=== PATIENT | female | born 1955 | race Caucasian/White ===

== ENCOUNTER → 2016-06-28 | Outpatient (CLI) | payer MEDICARE ==
--- NOTE | 2016-06-28 15:34 | XR ---
EXAMINATION TYPE: XR chest 2V DATE OF EXAM: 06/28/2016 3:29 PM COMPARISON: CT abdomen pelvis 23 March 2016, chest x-ray HISTORY: MRI clearance, post median sternotomy TECHNIQUE: Frontal and lateral views of the chest are obtained. FINDINGS: There is no focal air space opacity, pleural effusion, or pneumothorax seen. The cardiac silhouette size is within normal limits. Patient is post median sternotomy and rotated. Lung volume s are low. There are areas of scarring present. No evident epicardial pacing leads. The osseous struc tures are intact. IMPRESSION: No counterindication to MRI is evident.
== END | disposition home or self-care (01) ==
LOC: RADXRMAIN 15:13
PROVIDERS: ATTEND Orthopaedic Surgery
DX: M65.812 Other synovitis and tenosynovitis, left shoulder (principal); M25.512 Pain in left shoulder; M19.012 Primary osteoarthritis, left shoulder; M54.2 Cervicalgia; M75.102 Unspecified rotator cuff tear or rupture of left shoulder, not specified as traumatic; M25.812 Other specified joint disorders, left shoulder
CPT/HCPCS: 71020

== ENCOUNTER → 2016-07-08 | Outpatient (CLI) | payer MEDICARE ==
--- NOTE | 2016-07-08 11:01 | US ---
EXAMINATION TYPE: US thyroid st tissue head/neck DATE OF EXAM: 07/08/2016 10:39 AM COMPARISON: NONE CLINICAL HISTORY: R94.6 abn thyroid function. Patient was on meds but now off of them due to other he alth issues GLAND SIZE: Right Lobe: 5.9 x 3.9 x 2.1 cm Overall Parenchyma: slightly heterogeneous Left Lobe: 5.3 x 2.0 x 2.3 cm Overall Parenchyma: slightly heterogeneous Isthmus Thickness: 0.6 cm NODULES RIGHT: # of nodules measured on right: 1 1. 0.6 X 0.5 x 0.4 cm hypoechoic solid nodule at the mid pole with well-defined margins. This nodu le is wider than tall and shows no intranodular vascularity. Prior size: COVER STRIPPER LEFT: # of nodules measured on left: 0 ISTHMUS: # of nodules measured in the isthmus: 0 Thyroid gland is heterogeneous in appearance and slightly enlarged in size with scattered small nodul es, largest nodule measures up to 6 mm on long axis on the right thyroid lobe. IMPRESSION: Enlarged slightly heterogeneous thyroid gland without worrisome greater than 1 cm solid or cystic nod ule identified.
== END | disposition home or self-care (01) ==
LOC: RADUSMAIN 09:55
PROVIDERS: ATTEND Family Medicine
DX: E04.9 Nontoxic goiter, unspecified (principal)
CPT/HCPCS: 76536

== ENCOUNTER 2016-07-10 09:45 | Emergency (ER) | payer MEDICARE ==
[2016-07-10] MEDS ORDERED: TRIAMCINOLONE 0.1% CREAM 80 GM TUBE TOPICAL STA (10:05)
--- NOTE | 2016-07-10 10:08 | ED ---
Extremity Problem HPI - General Chief complaint: Extremity Problem,Nontraumatic Stated complaint: leg pain Time Seen by Provider: 07/10/16 10:01 Source: patient, RN notes reviewed Mode of arrival: wheelchair Limitations: no limitations - History of Present Illness Initial comments: 60-year-old female presents emergency Department chief complaint left knee pain. Patient states this started on and has gotten worse. Patient denies any injury. Patient states that they drove to [facility] on Tuesday started after. She has had a history of DVT in her left arm secondary to a hospital stay an IV. She states she was placed on blood thinners at that time. She has not taken any aspirin, Plavix or any other blood thinners at this time. She states that she used to take aspirin prior to her bypass surgery. Patient states that there is no redness no warmth no change in color to her left knee. Denies any trauma. She states she just started father states it feels like a cramp. Patient denies chest pain or shortness of breath. - Related Data Home Medications Medication Instructions Recorded Confirmed Aspirin EC [Ecotrin Low Dose] 81 mg PO DAILY 03/23/16 03/23/16 Atorvastatin [Lipitor] 40 mg PO HS 03/23/16 03/23/16 Carbidopa/Levodopa [Sinemet 25-100 1 tab PO HS 03/23/16 03/23/16 mg] Celecoxib [CeleBREX] 200 mg PO DAILY 03/23/16 03/23/16 DULoxetine HCL [Cymbalta] 60 mg PO DAILY 03/23/16 03/23/16 Gabapentin 600 mg PO TID 03/23/16 03/23/16 Insulin Glargine [Lantus] 40 unit SQ HS 03/23/16 03/23/16 Metoprolol Tartrate [Lopressor] 50 mg PO BID 03/23/16 03/23/16 Omeprazole [PriLOSEC] 20 mg PO AC-BRKFST 03/23/16 03/23/16 Previous Rx's Medication Instructions Recorded Amoxic-Pot Clav 875-125Mg 1 tab PO Q12HR #14 tablet 03/24/16 [Augmentin 875-125] Hydrocodone/Acetaminophen [[place] 1 tab PO Q6HR PRN #20 tab 07/10/16 5-325] Allergies Allergy/AdvReac Type Severity Reaction Status Date / Time Sulfa (Sulfonamide Allergy Unknown Verified 07/10/16 09:50 Antibiotics) Childhood Review of Systems ROS Statement: Those systems with pertinent positive or pertinent negative responses have been documented in the HPI. ROS Other: All systems not noted in ROS Statement are negative. Past Medical History Past Medical History: Coronary Artery Disease (CAD), Hyperlipidemia, Hypertension Additional Past Medical History / Comment(s): post polio syndrome History of Any Multi-Drug Resistant Organisms: C-DIFF Date of last positivie culture/infection: 2013 MDRO Source:: stool Past Surgical History: Back Surgery, Bowel Resection, Cholecystectomy, Coronary Bypass/CABG, Hysterectomy, Tonsillectomy Past Psychological History: No Psychological Hx Reported Smoking Status: Former smoker Past Alcohol Use History: None Reported Past Drug Use History: None Reported General Exam Limitations: no limitations General appearance: alert, in no apparent distress Head exam: Present: atraumatic, normocephalic, normal inspection Respiratory exam: Present: normal lung sounds bilaterally. Absent: respiratory distress, wheezes, rales, rhonchi, stridor Cardiovascular Exam: Present: regular rate, normal rhythm, normal heart sounds. Absent: systolic murmur, diastolic murmur, rubs, gallop, clicks Back exam: Present: other (Left knee there is tenderness in the popliteal fossa , no erythema no warmth patient does have some pain with range of motion. There is mild upper calf tenderness or pulses equal bilaterally +2) Skin exam: Present: warm, dry Course Vital Signs 07/10/16 09:47 Temperature 97.5 F L Pulse Rate 68 Respiratory 20 Rate Blood Pressure 130/60 O2 Sat by Pulse 98 Oximetry Medical Decision Making - Medical Decision Making 60-year-old female presented emergency department for left knee pain. There is no evidence of DVT. Patient has showed arthritis changes with joint effusion and Vizcaino's cyst. Patient we follow-up with her orthopedic surgeon Dr. Escalante. Patient we given pain medication and discharged. Disposition Clinical Impression: Bakers cyst, Joint effusion Disposition: HOME SELF-CARE Condition: Stable Instructions: Bakers Cyst (ED) Additional Instructions: Please return to the Emergency Department if symptoms worsen or any other concerns. Prescriptions: Hydrocodone/Acetaminophen [[place] 5-325] 1 tab PO Q6HR PRN #20 tab PRN Reason: Pain Referrals: Serina Leblanc MD [Primary Care Provider] - 1-2 days Bebeto Escalante MD [STAFF PHYSICIAN] - 1-2 days Time of Disposition: 11:25
[2016-07-10] MEDS ORDERED: TRIAMCINOLONE ACET 0.1% OINTMENT 15 GM TUBE TOPICAL STA (10:09)
[2016-07-10] MEDS ORDERED: HYDROcodone/APAP 5-325MG 1 EACH TAB PO STA (10:44)
--- NOTE | 2016-07-10 11:06 | US ---
EXAMINATION TYPE: US venous doppler duplex LE LT DATE OF EXAM: 07/10/2016 10:33 AM COMPARISON: NONE CLINICAL HISTORY: Pain. Pain left leg x 3 days SIDE PERFORMED: left VESSELS IMAGED: External Iliac Vein (EIV) Common Femoral Vein Deep Femoral Vein Greater Saphenous Vein * Femoral Vein Popliteal Vein Small Saphenous Vein * Proximal Calf Veins (* superficial vessels) Left Leg: No evidence of DVT. Difficult to visualize popliteal vein due to compression from probable Vizcaino's cyst. Complex anechoic area left popliteal fossa = 7.3 x 2.0 x 3.2cm (Vizcaino's cyst) IMPRESSION: 1. This examination is negative for DVT within the left leg. 2. Popliteal fossa cyst measuring 7.3 cm.
--- NOTE | 2016-07-10 11:18 | XR ---
EXAMINATION TYPE: XR knee complete LT DATE OF EXAM ORDERED: 07/10/2016 10:53 AM HISTORY: Pain. COMPARISON: None. FINDINGS: There has been previous vascular surgery on the left. There is mild medial and lateral joint space loss. There are mild remodeling changes in the patellofe moral joint. There is a joint effusion. No acute osseous lesion is seen. IMPRESSION: OSTEOARTHRITIS WITH A CONCOMITANT JOINT EFFUSION.
[2016-07-10 11:28] VITALS: BP 126/57; PULSE 61; RESP 18; TEMP 97.7
== END 2016-07-10 11:42 | disposition home or self-care (01) ==
LOC: EC 09:45
DX: M71.22 Synovial cyst of popliteal space [Baker], left knee (principal); M17.12 Unilateral primary osteoarthritis, left knee; M25.462 Effusion, left knee; I10 Essential (primary) hypertension; I25.10 Atherosclerotic heart disease of native coronary artery without angina pectoris; E78.5 Hyperlipidemia, unspecified; G14 Postpolio syndrome; Z79.82 Long term (current) use of aspirin; Z79.4 Long term (current) use of insulin; Z79.899 Other long term (current) drug therapy; Z88.2 Allergy status to sulfonamides; Z87.891 Personal history of nicotine dependence
CPT/HCPCS: 99284

== ENCOUNTER → 2016-07-14 | Outpatient (CLI) | payer MEDICARE ==
--- NOTE | 2016-07-15 13:05 | NM ---
EXAMINATION TYPE: NM thyroid image w uptake DATE OF EXAM: 07/15/2016 12:08 PM COMPARISON: Ultrasound thyroid 08 July 2016 HISTORY: Thyrotoxicosis TECHNIQUE: After the intravenous administration of 11.0 mCi Tc 99m Sodium Pertechnetate, thyroid imag ing is performed 10 minutes post injection. Thyroid iodine uptake is calculated after the oral admini stration of 18.0 uCi I-131 capsule. FINDINGS: There is normal distribution of activity throughout the gland. The 4 hour iodine uptake is calculated at 4.6% (normal range 8-14%). The 24-hour iodine uptake is calculated at 14.6% (normal ra nge 15-35%). Heterogeneous radio pharmaceutical trapping is present within the thyroid gland. No discrete thyroid nodule. IMPRESSION: Findings suggest underlying thyroiditis.
== END ==
LOC: RADNMMAIN 11:09
PROVIDERS: ATTEND Family Medicine
DX: E05.90 Thyrotoxicosis, unspecified without thyrotoxic crisis or storm (principal)
CPT/HCPCS: 78014; A9528; A9512

== ENCOUNTER 2016-10-14 07:07 | Day surgery (SDC) | payer MEDICARE ==
[2016-10-13 08:05] VITALS: BMI 36.3
[~2016-10-14 07:07] MED LIST: LACTATED RINGERS 1,000 ML IV SCH
[2016-10-14] MEDS ORDERED: LACTATED RINGERS 1,000 ML IV ONE (07:12)
[2016-10-14 07:24] VITALS: TEMP 98.3
[2016-10-14 07:36] LABS: Glucose,Whole Blood 101 mg/dL (75-99)
[2016-10-14] MEDS ORDERED: PROPOFOL 10 MG/ML 20 ML VIAL IV ONE (08:35)
[2016-10-14 09:15] VITALS: RESP 16
--- NOTE | 2016-10-14 09:17 | P.PCN ---
Date of Procedure: 10/14/16 Preoperative Diagnosis: Postoperative Diagnosis: Procedure(s) Performed: Procedure: Colonoscopy and biopsy. Preoperative diagnosis: Screening for neoplasia. Postoperative diagnosis: Diverticulosis with no evidence of acute diverticulitis , strictures, polyps or cancer. Preparation: HalfLytely prep. Sedation: Was provided by anesthesia. Brief clinical history: The patient is a 61-year-old female who is referred for this evaluation for screening for neoplasia. The patient had prior colon resection in 2009 for colon abscess and has had multiple colonoscopies in the past, her last colonoscopy was around 2010. She has been having urgent bowel movements lately not related to dietary triggers or any circumstances. No bleeding or other alarm symptoms. Procedure: With the patient on her left lateral decubitus position and after informed consent and adequate sedation, the perianal area was inspected and it did not show any fissures or fistulas. There were no masses felt on digital rectal examination. The Olympus CFQ 160L video colonoscope was then inserted in the rectum and the usual fashion and advanced to the cecum. There were multiple diverticular orifices seen scattered along the length of the bowel mostly on the left side with fewer on the right side with no evidence of acute diverticulitis or strictures. The area of the prior resection on the left side was noted and no obvious abnormalities were seen. The mucosa appeared healthy, however, because of her symptoms obtained biopsies in the right colon. I retroflexed the endoscope in the rectum before the endoscope was withdrawn. The patient tolerated the procedure well. Plan: The patient was reassured. Discussed dietary measures. Will await biopsy results and make further plans accordingly. For screening for colon neoplasia I recommended a repeat exam in 10 years. She will follow-up with you as planned. Implants: Indications for Procedure: Operative Findings: Description of Procedure:
[2016-10-14 09:45] VITALS: BP 109/71; PULSE 72
== END 2016-10-14 10:04 | disposition home or self-care (01) ==
LOC: ORWHC2ENDO 07:07
DX: Z12.11 Encounter for screening for malignant neoplasm of colon (principal); K57.30 Diverticulosis of large intestine without perforation or abscess without bleeding; I25.10 Atherosclerotic heart disease of native coronary artery without angina pectoris; I48.91 Unspecified atrial fibrillation; I10 Essential (primary) hypertension; E78.5 Hyperlipidemia, unspecified; Z87.891 Personal history of nicotine dependence; E11.9 Type 2 diabetes mellitus without complications; G14 Postpolio syndrome; F39 Unspecified mood [affective] disorder; K21.9 Gastro-esophageal reflux disease without esophagitis; Z90.49 Acquired absence of other specified parts of digestive tract; Z88.2 Allergy status to sulfonamides; Z79.82 Long term (current) use of aspirin; Z79.899 Other long term (current) drug therapy; Z79.4 Long term (current) use of insulin
CPT/HCPCS: 88305; 45380; J2704

== ENCOUNTER → 2016-10-22 | Outpatient (CLI) | payer MEDICARE ==
--- NOTE | 2016-10-22 15:58 | BD ---
EXAMINATION TYPE: MG DEXA axial skeleton. DATE OF EXAM: 10/22/2016 COMPARISON: NONE CLINICAL HISTORY: Z13.820 OSTEOPOROSIS Height: 53.5 Weight: 201 FRAX RISK QUESTIONS: Alcohol (3 or more units per day): N Family History (Parent hip fracture): YES, HER MOTHER Glucocorticoids (More than 3mos): NO (Ex: prednisone, prednisolone, methylprednisolone, dexamethasone, and hydrocortisone). History of Fracture in Adulthood: YES Secondary Osteoporosis: NO 1. Type 1 Diabetes: NO 2. Hyperthyroidism: YES 3. Menopause before 45: NO 4. Malnutrition: NO 5. Chronic liver disease: NO Rheumatoid Arthritis: NO Current Tobacco Use: NO, QUIT 2007 RISK FACTORS HISTORY OF: History of Wrist Fracture: RT WRIST When: AT AGE 10 Surgery to Spine LUMBAR SPINAL FUSION L4 AND L5 When: 2007 Family History of Osteoporosis: YES HER MOTHER Active: NOT VERY, RIGHT NOW Diet low in dairy products/other sources of calcium: NO Postmenopausal woman: YES AT 53 YRS OLD Lost more than 2 inches in height since high school: YES Hyperparathyroidism: YES Adrenal Insufficiency: NO MEDICATIONS: Thyroid Medications: STOPPED ABOUT 1 1/2 YRS AGO Additional Medications: BP MEDS, HEART MEDS, INSULIN,CYMBALTA, CELEBREX, TRAMADOL,VIT D Additional History: HEART TROUBLE, DIABETIC, RESTLESS LEG SYNDROME, BACK AND LEG PAIN, ARTHRITIS, PETTY ROPATHY EXAM MEASUREMENTS: Bone mineral densitometry was performed using the Cognotion System. SPINE NOT SCANNED....HX OF LUMBAR FUSION Bone mineral density about the R hip (g/cm2): 1.023 Bone mineral density about the L hip (g/cm2): 0.968 T Score values are as follows: -----R Neck: -0.7 -----L Neck: -0.9 -----R Total: 0.1 -----L Total: -0.3 Bone mineral density THIS IS HER FIRST BONE DENSITY EXAM AT [facility]...... FRAX %'S: THERE IS A 22.9% CHANCE OF A MAJOR OSTEOPOROTIC FX AND A 0.7% CHANCE OF A HIP FX...... PROBABILITY OF FX IN 10 YRS TIME IMPRESSION: Normal (Values between +1 and -1 indicate normal bone mass). Consider repeating this study in 5 year s or sooner if there is some new clinical indication 10 YEAR MAJOR OSTEOPOROTIC FRACTURE RISK: 22.9%. 10 YEAR HIP FRACTURE RISK: 0.7%. NOTE: T-SCORE=SD OF THE YOUNG ADULT MEAN.
--- NOTE | 2016-10-28 10:44 | MM ---
Reason for exam: screening (asymptomatic). Last mammogram was performed 1 year and 10 months ago. History: Patient is postmenopausal. Family history of breast cancer in mother at age 55. Physical Findings: A clinical breast exam by your physician is recommended on an annual basis and results should be correlated with mammographic findings. MG 3D Screening Mammo W/Cad Bilateral CC and MLO view(s) were taken. Prior study comparison: December 19, 2014, mammogram, performed at [facility]. March 21, 2014, mammogram, performed at [facility]. September 16, 2013, mammogram, performed at [facility]. September 08, 2013, mammogram, performed at [facility]. There are scattered fibroglandular densities. Finding: There are typically benign vascular calcifications in both breasts. There is a chronic nodularity bilaterally axilla. Asymmetric breast tissue in the left breast inferior position. There is no discrete abnormality. ASSESSMENT: Benign, BI-RAD 2 RECOMMENDATION: Routine screening mammogram of both breasts in 1 year.
== END | disposition home or self-care (01) ==
LOC: RADMAMWWP 14:22
PROVIDERS: ATTEND Family Medicine
DX: Z12.31 Encounter for screening mammogram for malignant neoplasm of breast (principal); M81.0 Age-related osteoporosis without current pathological fracture
CPT/HCPCS: 77080; 77063; G0202

== ENCOUNTER 2017-03-09 10:01 | Emergency (ER) | payer MEDICARE ==
[2017-03-09] MEDS ORDERED: IPRATROPIUM-ALBUTEROL 3 ML NEB INHALATION STA (10:35)
--- NOTE | 2017-03-09 10:41 | ED ---
Arrhythmia/Palpitations HPI - General Chief Complaint: Arrhythmia/Palpitations Stated Complaint: Chest Pain Time Seen by Provider: 03/09/17 10:22 Source: patient, RN notes reviewed Mode of arrival: wheelchair Limitations: no limitations - History of Present Illness Initial Comments: This is a 61-year-old female history of A. fib in the past who had bypass surgery and has not been in A. fib for a while who states she had the onset of palpitations some shortness of breath and dizziness this morning. She does have a history of COPD but has never had these a rescue inhaler. She is a former smoker who quit 8 years ago. She denies any overt chest pain. She is so short of breath still at this time denies any palpitations at this time. MD Complaint: palpitations - Related Data Home Medications Medication Instructions Recorded Confirmed Atorvastatin [Lipitor] 40 mg PO HS 03/23/16 03/09/17 DULoxetine HCL [Cymbalta] 60 mg PO DAILY 03/23/16 03/09/17 Insulin Glargine [Lantus] 40 unit SQ HS 03/23/16 03/09/17 Metoprolol Tartrate [Lopressor] 50 mg PO BID 03/23/16 03/09/17 Omeprazole [PriLOSEC] 20 mg PO AC-BRKFST 03/23/16 03/09/17 Carbidopa/Levodopa [Sinemet CR 1 tab PO HS 03/09/17 03/09/17 50-200 mg] Celecoxib [CeleBREX] 400 mg PO DAILY 03/09/17 03/09/17 Gabapentin [Neurontin] 900 mg PO TID 03/09/17 03/09/17 Previous Rx's Medication Instructions Recorded Albuterol Inhaler [Ventolin Hfa 2 puff INHALATION Q6HR PRN #1 03/09/17 Inhaler] inhaler Magnesium 200 mg PO DAILY #14 tablet 03/09/17 Allergies Allergy/AdvReac Type Severity Reaction Status Date / Time Sulfa (Sulfonamide Allergy Rash/Hives Verified 03/09/17 10:42 Antibiotics) Review of Systems ROS Statement: Those systems with pertinent positive or pertinent negative responses have been documented in the HPI. ROS Other: All systems not noted in ROS Statement are negative. Past Medical History Past Medical History: Atrial Fibrillation, Coronary Artery Disease (CAD), COPD, Diabetes Mellitus, GERD/Reflux, Hyperlipidemia Additional Past Medical History / Comment(s): post polio syndrome, neuropathy, hx. spontaneous pneumothorax, recent diarrhea History of Any Multi-Drug Resistant Organisms: C-DIFF Date of last positivie culture/infection: 2013 MDRO Source:: stool Past Surgical History: Back Surgery, Bowel Resection, Cholecystectomy, Coronary Bypass/CABG, Tonsillectomy Additional Past Surgical History / Comment(s): triple bypass 2013, left salpingo -oophorectomy Past Anesthesia/Blood Transfusion Reactions: No Reported Reaction Past Psychological History: No Psychological Hx Reported Smoking Status: Former smoker Past Alcohol Use History: None Reported Past Drug Use History: None Reported - Past Family History Mother Family Medical History: Cancer General Exam - General Exam Comments Initial Comments: This is a well-developed well-nourished awake alert oriented x 3 female Limitations: no limitations General appearance: alert, in no apparent distress Head exam: Present: atraumatic, normocephalic, normal inspection Eye exam: Present: normal appearance, PERRL, EOMI. Absent: scleral icterus, conjunctival injection, periorbital swelling ENT exam: Present: normal exam, mucous membranes moist Neck exam: Present: normal inspection. Absent: tenderness, meningismus, lymphadenopathy Respiratory exam: Present: decreased breath sounds. Absent: respiratory distress, wheezes, rales, rhonchi, stridor Cardiovascular Exam: Present: regular rate, normal rhythm, normal heart sounds. Absent: systolic murmur, diastolic murmur, rubs, gallop, clicks GI/Abdominal exam: Present: soft, normal bowel sounds. Absent: distended, tenderness, guarding, rebound, rigid Extremities exam: Present: normal inspection, full ROM, normal capillary refill. Absent: tenderness, pedal edema, joint swelling, calf tenderness Back exam: Present: normal inspection Neurological exam: Present: alert, oriented X3, CN II-XII intact Psychiatric exam: Present: normal affect, normal mood Skin exam: Present: warm, dry, intact, normal color. Absent: rash Course Vital Signs 03/09/17 03/09/17 03/09/17 10:09 10:43 10:54 Temperature 97.8 F Pulse Rate 61 62 64 Respiratory 16 Rate Blood Pressure 113/67 O2 Sat by Pulse 94 L Oximetry 03/09/17 03/09/17 03/09/17 11:04 12:02 13:07 Temperature Pulse Rate 58 L 59 L 58 L Respiratory 16 16 18 Rate Blood Pressure 128/65 126/60 99/51 O2 Sat by Pulse 97 96 97 Oximetry 03/09/17 13:20 Temperature Pulse Rate 59 L Respiratory 16 Rate Blood Pressure 99/51 O2 Sat by Pulse 96 Oximetry - Reevaluation(s) Reevaluation #1: 03/09/17 11:40 I did discuss the findings thus far the patient she is not on any blood thinners the patient will be getting a CAT scan of the chest to determine if a PE is present. EKG Findings - EKG Results: EKG: interpreted by ERMD (Sinus bradycardia rate of 58. Interval 174 QRS 124 QT since QTC of 448/439 by bundle-branch block.) Medical Decision Making - Medical Decision Making Patient is feeling improved I did discuss findings with her she will be discharged the presentation is consistent with a COPD exacerbation as well as hypomagnesemia - Lab Data Result diagrams: 03/09/17 10:37 03/09/17 10:37 Lab Results 03/09/17 03/09/17 03/09/17 Range/Units 10:37 10:37 10:37 WBC 7.7 (3.8-10.6) k/uL RBC 5.40 (3.80-5.40) m/uL Hgb 15.6 (11.4-16.0) gm/dL Hct 46.4 H (34.0-46.0) % MCV 85.9 (80.0-100.0) fL MCH 28.9 (25.0-35.0) pg MCHC 33.7 (31.0-37.0) g/dL RDW 13.5 (11.5-15.5) % Plt Count 192 (150-450) k/uL Neutrophils % 63 % Lymphocytes % 24 % Monocytes % 7 % Eosinophils % 3 % Basophils % 1 % Neutrophils # 4.8 (1.3-7.7) k/uL Lymphocytes # 1.8 (1.0-4.8) k/uL Monocytes # 0.5 (0-1.0) k/uL Eosinophils # 0.2 (0-0.7) k/uL Basophils # 0.0 (0-0.2) k/uL PT (9.0-12.0) sec INR (<1.2) APTT (22.0-30.0) sec D-Dimer (<0.60) mg/L FEU Sodium 138 (137-145) mmol/L Potassium 4.5 (3.5-5.1) mmol/L Chloride 105 (98-107) mmol/L Carbon Dioxide 23 (22-30) mmol/L Anion Gap 10 mmol/L BUN 11 (7-17) mg/dL Creatinine 0.61 (0.52-1.04) mg/dL Est GFR (MDRD) Af Amer >60 (>60 ml/min/1.73 sqM) Est GFR (MDRD) Non-Af >60 (>60 ml/min/1.73 sqM) Glucose 158 H (74-99) mg/dL Calcium 10.0 (8.4-10.2) mg/dL Magnesium 1.6 (1.6-2.3) mg/dL Total Bilirubin 0.5 (0.2-1.3) mg/dL AST 26 (14-36) U/L ALT 29 (9-52) U/L Alkaline Phosphatase 128 H (38-126) U/L Total Creatine Kinase 50 (30-135) U/L CK-MB (CK-2) 1.2 (0.0-2.4) ng/mL CK-MB (CK-2) Rel Index 2.4 Troponin I <0.012 (0.000-0.034) ng/mL Total Protein 7.1 (6.3-8.2) g/dL Albumin 3.9 (3.5-5.0) g/dL 03/09/17 Range/Units 10:37 WBC (3.8-10.6) k/uL RBC (3.80-5.40) m/uL Hgb (11.4-16.0) gm/dL Hct (34.0-46.0) % MCV (80.0-100.0) fL MCH (25.0-35.0) pg MCHC (31.0-37.0) g/dL RDW (11.5-15.5) % Plt Count (150-450) k/uL Neutrophils % % Lymphocytes % % Monocytes % % Eosinophils % % Basophils % % Neutrophils # (1.3-7.7) k/uL Lymphocytes # (1.0-4.8) k/uL Monocytes # (0-1.0) k/uL Eosinophils # (0-0.7) k/uL Basophils # (0-0.2) k/uL PT 10.6 (9.0-12.0) sec INR 1.0 (<1.2) APTT 24.5 (22.0-30.0) sec D-Dimer 0.81 H (<0.60) mg/L FEU Sodium (137-145) mmol/L Potassium (3.5-5.1) mmol/L Chloride (98-107) mmol/L Carbon Dioxide (22-30) mmol/L Anion Gap mmol/L BUN (7-17) mg/dL Creatinine (0.52-1.04) mg/dL Est GFR (MDRD) Af Amer (>60 ml/min/1.73 sqM) Est GFR (MDRD) Non-Af (>60 ml/min/1.73 sqM) Glucose (74-99) mg/dL Calcium (8.4-10.2) mg/dL Magnesium (1.6-2.3) mg/dL Total Bilirubin (0.2-1.3) mg/dL AST (14-36) U/L ALT (9-52) U/L Alkaline Phosphatase (38-126) U/L Total Creatine Kinase (30-135) U/L CK-MB (CK-2) (0.0-2.4) ng/mL CK-MB (CK-2) Rel Index Troponin I (0.000-0.034) ng/mL Total Protein (6.3-8.2) g/dL Albumin (3.5-5.0) g/dL - Radiology Data Radiology results: report reviewed (I did review the imaging and reports no acute findings.), image reviewed Disposition Clinical Impression: Acute bronchospasm, Hypomagnesemia, Palpitations Disposition: HOME SELF-CARE Condition: Good Instructions: Palpitations (ED), Hypomagnesemia (ED) Prescriptions: Albuterol Inhaler [Ventolin Hfa Inhaler] 2 puff INHALATION Q6HR PRN #1 inhaler PRN Reason: Dyspnea Magnesium 200 mg PO DAILY #14 tablet Referrals: Serina Leblanc MD [Primary Care Provider] - 1-2 days
[2017-03-09 10:50] LABS: Basophils % (A) 1 %; CH 29.6; CHCM 34.6; Eosinophils # (A) 0.2 k/uL (0-0.7); Eosinophils % (A) 3 %; HCT 46.4 % (34.0-46.0); HDW 2.94; HGB 15.6 gm/dL (11.4-16.0); Luc # (Auto) 0.23; Luc % (Auto) 3; Lymphocytes # (A) 1.8 k/uL (1.0-4.8); Lymphocytes % (A) 24 %; MCH 28.9 pg (25.0-35.0); MCHC 33.7 g/dL (31.0-37.0); MCV 85.9 fL (80.0-100.0); Mean Platelet Volume 7.9; Monocytes # (A) 0.5 k/uL (0-1.0); Monocytes % (A) 7 %; Neutrophils # (A) 4.8 k/uL (1.3-7.7); Neutrophils % (A) 63 %; RDW 13.5 % (11.5-15.5); WBC 7.7 k/uL (3.8-10.6); WBC (Perox) 7.64
[2017-03-09 11:13] LABS: ALT 29 U/L (9-52); AST 26 U/L (14-36); Alkaline Phosphatase 128 U/L (38-126); Anion Gap 10 mmol/L; Blood Urea Nitrogen 11 mg/dL (7-17); Carbon Dioxide 23 mmol/L (22-30); Chloride 105 mmol/L (98-107); Creatine Kinase 50 U/L (30-135); Glucose 158 mg/dL (74-99); Magnesium 1.6 mg/dL (1.6-2.3); Non-African American GFR(MDRD) >60 (>60 ml/min/1.73 sqM); Sodium 138 mmol/L (137-145); Total Bilirubin 0.5 mg/dL (0.2-1.3); Total Protein 7.1 g/dL (6.3-8.2)
[2017-03-09 11:15] LABS: Potassium 4.5 mmol/L (3.5-5.1)
[2017-03-09 11:22] LABS: Partial Thromboplastin Time 24.5 sec (22.0-30.0); Prothrombin Time 10.6 sec (9.0-12.0)
[2017-03-09 11:25] LABS: Creatine Kinase MB 1.2 ng/mL (0.0-2.4); Troponin I <0.012 ng/mL (0.000-0.034)
--- NOTE | 2017-03-09 11:39 | XR ---
EXAMINATION TYPE: XR chest 2V DATE OF EXAM: 03/09/2017 COMPARISON: 06/28/2016 HISTORY: Dysrhythmia. CABG in 2014. TECHNIQUE: Frontal and lateral views of the chest are obtained. FINDINGS: There is no focal air space opacity, pleural effusion, or pneumothorax seen. Postoperative changes of coronary artery bypass graft are noted. Linear chronic basilar and midlung subsegmental a telectasis is unchanged from the prior exam of 06/28/2016. The cardiac silhouette size is within norm al limits. The osseous structures are intact. Minimal multilevel degenerative changes of the thorac ic spine are noted. IMPRESSION: No acute cardiopulmonary process. Chronic left basilar and left midlung subsegmental ate lectasis.
[2017-03-09] MEDS ORDERED: RX INFO: IV CONTRAST WAS GIVEN 1 EACH MISC MISCELLANE PRN (11:40)
--- NOTE | 2017-03-09 12:52 | CT ---
CT CHEST FOR PULMONARY EMBOLISM. EXAMINATION TYPE: CT angio chest DATE OF EXAM: 03/09/2017 INDICATION: Shortness of breath and chest pain CT DLP: 612 mGycm, Automated exposure control for dose reduction was used. CONTRAST: Patient injected with 100 mL of Omnipaque 350. COMPARISON: NONE TECHNIQUE: CT of the chest is performed on a spiral scan at 2 mm thick sections. Study is performed with intravenous contrast timed for evaluation for pulmonary embolism. This will limit additional po rtions of the evaluation. 3-D MIP images reconstructed by the technologist are reviewed on the compu ter in the coronal and sagittal planes. FINDINGS: No persistent filling defects are evident to suggest an acute pulmonary embolism. No suspicious mediastinal or hilar adenopathy enlarged by CT criteria is evident. The ascending aort a diameter at the level of the main pulmonary artery is 3.4 cm. The main pulmonary artery diameter a t the bifurcation is 2.1 cm. Lung windows are clear. Some mild emphysematous change may be present. Some minimal infiltrate, likel y atelectasis is within the lingula. Some paraseptal changes are within the left lower lobe minimal p leural thickening along the lingula may be present. Limited CT section through the upper abdomen are unremarkable. IMPRESSIONS: 1. No acute pulmonary embolism. 2. Minimal pleural thickening at the level of the lingula may be present. 3. Mild subsegmental atelectasis left lung
[2017-03-09] MEDS ORDERED: MAGNESIUM SULFATE-D5W PMX 1 GM in DEXTROSE/WATER 1 100ML.BAG IVPB ONE (12:55)
[2017-03-09 13:10] VITALS: BP 99/51
[2017-03-09 13:21] VITALS: PULSE 59; RESP 16
[2017-03-09 14:11] VITALS: TEMP 98.6
== END 2017-03-09 14:10 | disposition home or self-care (01) ==
LOC: EC 10:01
DX: J98.01 Acute bronchospasm (principal); E83.42 Hypomagnesemia; R00.2 Palpitations; I48.91 Unspecified atrial fibrillation; I25.10 Atherosclerotic heart disease of native coronary artery without angina pectoris; E11.9 Type 2 diabetes mellitus without complications; K21.9 Gastro-esophageal reflux disease without esophagitis; E78.5 Hyperlipidemia, unspecified; J44.9 Chronic obstructive pulmonary disease, unspecified; Z95.1 Presence of aortocoronary bypass graft; Z87.891 Personal history of nicotine dependence; Z79.4 Long term (current) use of insulin; Z79.899 Other long term (current) drug therapy; Z88.2 Allergy status to sulfonamides
CPT/HCPCS: 36415; 94640; 93005; 85379; 80053; 82550; 82553; 83735; 84484; 85025; 85610; 85730; 71020; 71275; 99285; 96365; Q9967; J3475

== ENCOUNTER → 2017-07-04 | Outpatient (CLI) | payer MEDICARE ==
[2017-07-04 16:42] LABS: Blood Urea Nitrogen 13 mg/dL (7-17)
== END | disposition home or self-care (01) ==
LOC: LABWHC1 15:46
PROVIDERS: ATTEND Psychiatry & Neurology Pain Medicine
DX: M54.5 Low back pain (principal); Z88.2 Allergy status to sulfonamides
CPT/HCPCS: 36415; 82565; 84520

== ENCOUNTER → 2017-07-07 | Outpatient (CLI) | payer MEDICARE ==
--- NOTE | 2017-07-11 09:42 | MR ---
EXAMINATION TYPE: MR lumbar spine wo/w con DATE OF EXAM: 07/07/2017 COMPARISON: Outside MRI July 19, 2011. CT abdomen and pelvis March 23, 2016. HISTORY: Low back pain per order. Pain with weakness into legs for 3 years per patient. History of pr ior surgery 2007. TECHNIQUE: Multiplanar, multisequence images of the lumbar spine is performed without and with IV contrast, util izing 9 mL intravenous Gadavist FINDINGS: By Etienne use same counting system as outside report with transitional-type vertebra or sa cralized left L5 segment noted. Sagittal images of the lumbar spine show vertebral body heights to re main satisfactory. There is persistent spondylolisthesis or anterolisthesis L5 on S1, this measures u p to 12 mm sagittal image 8 and is more prominent than prior outside MRI. Multilevel disc desiccation is redemonstrated. There is fairly moderate disc space narrowing with endplate irregularities L4-L5 level, this is new from prior exam. There is new mild anterior spurring L5-S1 level. There are new ti ny posterior disc herniations L2-L3 and L3-L4 level on sagittal images. The conus medullaris is stabl e in position and signal ending at T12-L1 disc space. The bone marrow signal intensity remains withi n normal limits. No suspicious postcontrast enhancement is seen. Axial images beginning at labeled T12-L1 level which now shows mild broad disc bulge minimally effaci ng anterior thecal sac, bilateral neural foramina are patent on axial image 27. Axial images at L1-L2 level show mild right greater than left facet arthropathy and ligamentum flavum hypertrophy mildly effacing posterior lateral thecal sac. Bilateral neural foramina are patent. Axial images at L2-L3 level show moderate facet degenerative changes and ligamentum flavum hypertroph y effacing posterior lateral thecal sac, right greater than left axial image 19. There is mild broad disc bulge with left foraminal disc protrusion component on axial image 17. There is effacement of th e anterior and posterior lateral thecal sac. There is moderate to advanced right-sided neural foramin al narrowing seen best sagittal image 10. There is also moderate to advanced left-sided neural forami nal narrowing, encroachment on extraforaminal left L2 nerve is suspected on axial image 17. Axial images at L3-L4 level show moderate facet degenerative changes bilaterally. There is redemonstr ation of spinous process resection. There is mild broad disc bulge with left foraminal disc protrusio n component axial image 12 now identified. Spinal canal is minimally effaced anteriorly. Right-sided neural foramen is patent. Left side shows mild to moderate inferior narrowing seen best sagittal imag e 2. Axial images at L4-L5 level show spondylolisthesis and moderate to advanced facet arthropathy. There is pseudodisc herniation. There is advanced bilateral neural foraminal narrowing with encroachment on both L4 nerves right inferior aspect sagittal image 12 and left anterior aspect sagittal image 4. Sp inous process resected similar to prior. Some enhancing scar tissue epidural space is noted bilateral ly seen best on axial images surrounding spinal canal. Axial images at L5-S1 level show mild facet arthropathy. Spinal canal is preserved. Bilateral neural foramina are patent. Cannot rule out dependent gallstones in gallbladder near axial image 28 versus debris in fluid-filled duodenal sweep, latter is favored. No suspicious retroperitoneal findings are otherwise are identifi ed. IMPRESSION: There is worsening spondylolisthesis, now grade 2 anterolisthesis L4 on L5. There is incr easing multilevel degenerative change seen as detailed above.
== END | disposition home or self-care (01) ==
LOC: RADMRIMAIN 07:18
PROVIDERS: ATTEND Psychiatry & Neurology Neurology
DX: M43.16 Spondylolisthesis, lumbar region (principal); M47.816 Spondylosis without myelopathy or radiculopathy, lumbar region; Z88.2 Allergy status to sulfonamides
CPT/HCPCS: 72158; A9581

== ENCOUNTER → 2018-05-12 | Outpatient (CLI) | payer MEDICARE ==
--- NOTE | 2018-05-12 16:41 | CTL ---
EXAMINATION TYPE: CT Low Dose Lung DATE OF EXAM ORDERED: 05/12/2018 HISTORY: . Lung cancer screening CT DLP: [address] CTDI: 2.95 mGy Automated exposure control for dose reduction was used. SCREENING VISIT: Initial COMPARISON: CT angiogram chest 03/09/2017 TECHNIQUE: Low dose computed tomography scan was performed through the chest at 1 mm thick sections a nd reconstructed images in the coronal plane at [address] DIAGNOSTIC QUALITY: Limited, but interpretable FINDINGS: LUNG NODULES: Present, detailed below: 1. There is a 0.8 cm nodule within the posterior medial right lung base. Series 5 image 150. This is likely a calcified granuloma. 2. There are several punctate nodular densities within the periphery of the right apex. The largest m easures 0.3 cm. Series 5 image 42. LUNGS: COPD: Severity: Mild Fibrosis: Severity: None Lymph nodes: None Other findings: None RIGHT PLEURAL SPACE: Effusion: None Calcification: None Thickening: None Pneumothorax: None LEFT PLEURAL SPACE: Effusion: None Calcification: None Thickening: None Pneumothorax: None HEART: Heart Size: Normal Coronary calcification: Mild Pericardial effusion: None OTHER FINDINGS: Upper abdomen: Normal Bony thorax: Normal Supraclavicular region: None Other: Ascending thoracic aorta is estimated to measure 3.3 cm at the main pulmonary artery. Main pul monary artery is estimated to measure 2.7 cm bifurcation. IMPRESSION: Benign findings FOLLOW UP CT CHEST RECOMMENDATION: Follow-up low-dose CT chest [address] LUNG RAD: Lung rad 2
== END | disposition home or self-care (01) ==
LOC: RADCTMAIN 11:20
PROVIDERS: ATTEND Family Medicine
DX: Z12.2 Encounter for screening for malignant neoplasm of respiratory organs (principal); Z87.891 Personal history of nicotine dependence

== ENCOUNTER → 2018-06-01 | Outpatient (CLI) | payer MEDICARE ==
--- NOTE | 2018-06-02 09:13 | MM ---
Reason for exam: screening (asymptomatic). Last mammogram was performed 1 year and 7 months ago. History: Patient is postmenopausal. Family history of breast cancer in mother at age 55. Physical Findings: A clinical breast exam by your physician is recommended on an annual basis and results should be correlated with mammographic findings. MG 3D Screening Mammo W/Cad Bilateral CC and MLO view(s) were taken. CV view(s) were taken of the right breast. Prior study comparison: October 22, 2016, bilateral MG 3d screening mammo w/cad. December 19, 2014, mammogram, performed at [facility]. The breast tissue is heterogeneously dense. This may lower the sensitivity of mammography. No suspicious abnormality. No significant changes when compared with prior studies. ASSESSMENT: Negative, BI-RAD 1 RECOMMENDATION: Routine screening mammogram of both breasts in 1 year.
== END ==
LOC: RADMAMWWP 14:44
PROVIDERS: ATTEND Family Medicine
DX: Z12.31 Encounter for screening mammogram for malignant neoplasm of breast (principal)
CPT/HCPCS: 77063; 77067

== ENCOUNTER 2018-09-03 16:39 | Emergency (ER) | payer MEDICARE ==
[2018-09-03 17:01] VITALS: RESP 18
[2018-09-03] MEDS ORDERED: SODIUM CHLORIDE 0.9% 1,000 ML IV ONE (17:15)
[2018-09-03] MEDS ORDERED: ASPIRIN 81 MG PO STA (17:21)
--- NOTE | 2018-09-03 17:25 | ED ---
Abdominal Pain HPI - General Chief Complaint: Abdominal Pain Stated Complaint: SOB, DIARRHEA, WEAKNESS Time Seen by Provider: 09/03/18 17:14 Source: patient Mode of arrival: wheelchair Limitations: no limitations - History of Present Illness Initial Comments: Patient is a 63-year-old female presents with a chief complaint abdominal pain and diarrhea for one week. She cannot identify an inciting incident. There no aggravating or alleviating factors. Timing is constant. Patient states that she has a history of a triple bypass, colitis that required a 12 inch colon resection, and frequent urinary tract infections. Patient denies any fever, chills, nausea or vomiting. She states she has been defecating about 10 times a day. She denies any recent antibiotic use. - Related Data Home Medications Medication Instructions Recorded Confirmed Atorvastatin [Lipitor] 40 mg PO HS 03/23/16 03/09/17 DULoxetine HCL [Cymbalta] 60 mg PO DAILY 03/23/16 03/09/17 Insulin Glargine [Lantus] 40 unit SQ HS 03/23/16 03/09/17 Metoprolol Tartrate [Lopressor] 50 mg PO BID 03/23/16 03/09/17 Omeprazole [PriLOSEC] 20 mg PO AC-BRKFST 03/23/16 03/09/17 Carbidopa/Levodopa [Sinemet CR 1 tab PO HS 03/09/17 03/09/17 50-200 mg] Celecoxib [CeleBREX] 400 mg PO DAILY 03/09/17 03/09/17 Gabapentin [Neurontin] 900 mg PO TID 03/09/17 03/09/17 Previous Rx's Medication Instructions Recorded Albuterol Inhaler [Ventolin Hfa 2 puff INHALATION Q6HR PRN #1 03/09/17 Inhaler] inhaler Magnesium 200 mg PO DAILY #14 tablet 03/09/17 Dicyclomine [Bentyl] 20 mg PO QID #20 tablet 09/03/18 Allergies Allergy/AdvReac Type Severity Reaction Status Date / Time Sulfa (Sulfonamide Allergy Rash/Hives Verified 09/03/18 17:00 Antibiotics) Review of Systems ROS Statement: Those systems with pertinent positive or pertinent negative responses have been documented in the HPI. ROS Other: All systems not noted in ROS Statement are negative. Gastrointestinal: Reports: abdominal pain, diarrhea Past Medical History Past Medical History: Atrial Fibrillation, Coronary Artery Disease (CAD), COPD, Diabetes Mellitus, GERD/Reflux, Hyperlipidemia Additional Past Medical History / Comment(s): post polio syndrome, neuropathy, hx. spontaneous pneumothorax, recent diarrhea History of Any Multi-Drug Resistant Organisms: C-DIFF Date of last positivie culture/infection: 2013 MDRO Source:: stool Past Surgical History: Back Surgery, Bowel Resection, Cholecystectomy, Coronary Bypass/CABG, Tonsillectomy Additional Past Surgical History / Comment(s): triple bypass 2013, left salpin go-oophorectomy Past Anesthesia/Blood Transfusion Reactions: No Reported Reaction Past Psychological History: No Psychological Hx Reported Smoking Status: Former smoker Past Alcohol Use History: None Reported Past Drug Use History: None Reported - Past Family History Mother Family Medical History: Cancer General Exam Limitations: no limitations General appearance: alert, in no apparent distress Head exam: Present: atraumatic, normocephalic Eye exam: Present: normal appearance ENT exam: Present: normal exam Neck exam: Present: normal inspection Respiratory exam: Present: normal lung sounds bilaterally. Absent: respiratory distress, wheezes Cardiovascular Exam: Present: regular rate, normal rhythm GI/Abdominal exam: Present: soft, tenderness (Patient has tenderness in the suprapubic and right lower quadrant region). Absent: distended Rectal exam: Present: deferred Extremities exam: Present: normal inspection Back exam: Present: normal inspection Neurological exam: Present: alert, oriented X3, CN II-XII intact, normal gait Psychiatric exam: Present: normal affect, normal mood Skin exam: Present: warm, dry, intact Course Vital Signs 09/03/18 16:57 Temperature 98.6 F Pulse Rate 71 Respiratory 18 Rate Blood Pressure 149/80 O2 Sat by Pulse 97 Oximetry Medical Decision Making - Medical Decision Making Patient presents with a chief complaint abdominal pain and diarrhea. On initial evaluation, vitals are stable, patient is no acute distress. They'll be evaluated basic labs including cardiac enzymes, EKG, urinalysis, and computed tomography scan of the abdomen and pelvis with IV contrast. EKG performed at 2028 shows normal sinus rhythm with a right bundle branch block. Ventricular rate is 70 bpm, sinus rhythm was normal limits. EKG is similar when compared to previous study performed on 03/09/2017. 10:57 PM Lab evaluation this patient is unremarkable including 2 negative troponins. At this time, patient stable for discharge. Computed tomography scan does not show any evidence of acute process. On reevaluation, patient sorry by mouth intake and feels better. She'll be prescribed Bentyl for outpatient use. She was instructed to follow-up with primary care 1-2 days, return to the ED if symptoms worsen or change. UA shows mild evidence of infection, though patient is asy mptomatic. she states that she always has evidence of a UTI and would like to hold on treatment at this time. culture was sent, patient was instructed to follow with PCP for results. - Lab Data Result diagrams: 09/03/18 18:30 09/03/18 18:30 Lab Results 09/03/18 09/03/18 09/03/18 Range/Units 18:30 18:30 18:30 WBC 9.2 (3.8-10.6) k/uL RBC 5.54 H (3.80-5.40) m/uL Hgb 15.5 (11.4-16.0) gm/dL Hct 47.6 H (34.0-46.0) % MCV 85.9 (80.0-100.0) fL MCH 28.0 (25.0-35.0) pg MCHC 32.6 (31.0-37.0) g/dL RDW 13.7 (11.5-15.5) % Plt Count 200 (150-450) k/uL Neutrophils % 63 % Lymphocytes % 24 % Monocytes % 7 % Eosinophils % 3 % Basophils % 1 % Neutrophils # 5.8 (1.3-7.7) k/uL Lymphocytes # 2.2 (1.0-4.8) k/uL Monocytes # 0.7 (0-1.0) k/uL Eosinophils # 0.3 (0-0.7) k/uL Basophils # 0.1 (0-0.2) k/uL Sodium 139 (137-145) mmol/L Potassium 4.2 (3.5-5.1) mmol/L Chloride 103 (98-107) mmol/L Carbon Dioxide 27 (22-30) mmol/L Anion Gap 9 mmol/L BUN 11 (7-17) mg/dL Creatinine 0.51 L (0.52-1.04) mg/dL Est GFR (CKD-EPI)AfAm >90 (>60 ml/min/1.73 sqM) Est GFR (CKD-EPI)NonAf >90 (>60 ml/min/1.73 sqM) Glucose 162 H (74-99) mg/dL Calcium 10.4 H (8.4-10.2) mg/dL Total Bilirubin 0.5 (0.2-1.3) mg/dL AST 38 H (14-36) U/L ALT 34 (9-52) U/L Alkaline Phosphatase 104 (38-126) U/L Troponin I <0.012 (0.000-0.034) ng/mL Total Protein 7.4 (6.3-8.2) g/dL Albumin 4.3 (3.5-5.0) g/dL Lipase 150 (23-300) U/L Urine Color Urine Appearance (Clear) Urine pH (5.0-8.0) Ur Specific Hankins (1.001-1.035) Urine Protein (Negative) Urine Glucose (UA) (Negative) Urine Ketones (Negative) Urine Blood (Negative) Urine Nitrite (Negative) Urine Bilirubin (Negative) Urine Urobilinogen (<2.0) mg/dL Ur Leukocyte Esterase (Negative) Urine RBC (0-5) /hpf Urine WBC (0-5) /hpf Ur Squamous Epith Cells (0-4) /hpf Urine Mucus (None) /hpf 09/03/18 09/03/18 Range/Units 19:50 22:10 WBC (3.8-10.6) k/uL RBC (3.80-5.40) m/uL Hgb (11.4-16.0) gm/dL Hct (34.0-46.0) % MCV (80.0-100.0) fL MCH (25.0-35.0) pg MCHC (31.0-37.0) g/dL RDW (11.5-15.5) % Plt Count (150-450) k/uL Neutrophils % % Lymphocytes % % Monocytes % % Eosinophils % % Basophils % % Neutrophils # (1.3-7.7) k/uL Lymphocytes # (1.0-4.8) k/uL Monocytes # (0-1.0) k/uL Eosinophils # (0-0.7) k/uL Basophils # (0-0.2) k/uL Sodium (137-145) mmol/L Potassium (3.5-5.1) mmol/L Chloride (98-107) mmol/L Carbon Dioxide (22-30) mmol/L Anion Gap mmol/L BUN (7-17) mg/dL Creatinine (0.52-1.04) mg/dL Est GFR (CKD-EPI)AfAm (>60 ml/min/1.73 sqM) Est GFR (CKD-EPI)NonAf (>60 ml/min/1.73 sqM) Glucose (74-99) mg/dL Calcium (8.4-10.2) mg/dL Total Bilirubin (0.2-1.3) mg/dL AST (14-36) U/L ALT (9-52) U/L Alkaline Phosphatase (38-126) U/L Troponin I <0.012 (0.000-0.034) ng/mL Total Protein (6.3-8.2) g/dL Albumin (3.5-5.0) g/dL Lipase (23-300) U/L Urine Color Yellow Urine Appearance Clear (Clear) Urine pH 6.0 (5.0-8.0) Ur Specific Hankins 1.020 (1.001-1.035) Urine Protein Negative (Negative) Urine Glucose (UA) 4+ H (Negative) Urine Ketones Negative (Negative) Urine Blood Negative (Negative) Urine Nitrite Negative (Negative) Urine Bilirubin Negative (Negative) Urine Urobilinogen <2.0 (<2.0) mg/dL Ur Leukocyte Esterase Small H (Negative) Urine RBC 5 (0-5) /hpf Urine WBC 10 H (0-5) /hpf Ur Squamous Epith Cells <1 (0-4) /hpf Urine Mucus Rare H (None) /hpf Disposition Clinical Impression: Abdominal pain Disposition: HOME SELF-CARE Condition: Good Instructions (If sedation given, give patient instructions): Abdominal Pain (ED) Prescriptions: Dicyclomine [Bentyl] 20 mg PO QID #20 tablet Is patient prescribed a controlled substance at d/c from ED?: No Referrals: Serina Leblanc MD [Primary Care Provider] - 1-2 days
[2018-09-03 18:47] LABS: Basophils # (A) 0.1 k/uL (0-0.2); Basophils % (A) 1 %; Eosinophils # (A) 0.3 k/uL (0-0.7); Eosinophils % (A) 3 %; HCT 47.6 % (34.0-46.0); HGB 15.5 gm/dL (11.4-16.0); Lymphocytes # (A) 2.2 k/uL (1.0-4.8); Lymphocytes % (A) 24 %; MCHC 32.6 g/dL (31.0-37.0); MCV 85.9 fL (80.0-100.0); Mean Platelet Volume 7.7; Monocytes # (A) 0.7 k/uL (0-1.0); Monocytes % (A) 7 %; Neutrophils # (A) 5.8 k/uL (1.3-7.7); Neutrophils % (A) 63 %; Platelet Count 200 k/uL (150-450); RBC 5.54 m/uL (3.80-5.40); RDW 13.7 % (11.5-15.5); WBC 9.2 k/uL (3.8-10.6)
[2018-09-03 19:14] LABS: ALT 34 U/L (9-52); AST 38 U/L (14-36); Albumin 4.3 g/dL (3.5-5.0); Alkaline Phosphatase 104 U/L (38-126); Anion Gap 9 mmol/L; Blood Urea Nitrogen 11 mg/dL (7-17); Calcium 10.4 mg/dL (8.4-10.2); Carbon Dioxide 27 mmol/L (22-30); Chloride 103 mmol/L (98-107); Glucose 162 mg/dL (74-99); Lipase 150 U/L (23-300); Potassium 4.2 mmol/L (3.5-5.1); Sodium 139 mmol/L (137-145); Total Bilirubin 0.5 mg/dL (0.2-1.3); Total Protein 7.4 g/dL (6.3-8.2)
--- NOTE | 2018-09-03 19:24 | XR ---
EXAMINATION TYPE: XR chest 2V DATE OF EXAM: 09/03/2018 COMPARISON: None HISTORY: .Abdominal pain and diarrhea for one week TECHNIQUE: Frontal and lateral views of the chest are obtained. FINDINGS: There is no focal air space opacity, pleural effusion, or pneumothorax seen. Lateral left lower lung scarring versus atelectasis. The heart is of normal size. There is evidence of a prior CAB G. Spinal stimulator device is evident. Sternotomy wires are seen. The osseous structures are intact. IMPRESSION: No acute cardiopulmonary process.
[2018-09-03] MEDS ORDERED: ONDANSETRON 4 MG TAB PO STA (19:49)
[2018-09-03] MEDS ORDERED: ONDANSETRON ODT 4 MG TAB PO STA (19:51)
--- NOTE | 2018-09-03 19:52 | CT ---
EXAMINATION TYPE: CT abdomen pelvis wo con DATE OF EXAM: 09/03/2018 HISTORY: Abdominal pain, weakness CT DLP: 882.1 mGycm. Automated Exposure Control for Dose Reduction was Utilized. TECHNIQUE: CT scan of the abdomen and pelvis is performed without oral or IV contrast. COMPARISON: NONE FINDINGS: Within the limitations of a non-contrast study, the following observations are made. LUNG BASES: No significant abnormality is appreciated. LIVER/GB: No significant abnormality. PANCREAS: No significant abnormality. SPLEEN: No significant abnormality. ADRENALS: No significant abnormality. KIDNEYS: Multiple bilateral nonobstructing renal stones are present. The largest is in the left mid p ole and measures 4 mm. There is no evidence of hydronephrosis or hydroureter. No evidence of calculi within the urinary bladder. BOWEL: No significant abnormality. Scattered colonic diverticulosis without evidence of diverticuliti s. Normal appendix. GENITAL ORGANS: No gross abnormality seen. LYMPH NODES: No greater than 1cm abdominal or pelvic lymph nodes are appreciated. OSSEOUS STRUCTURES: Grade 2 anterolisthesis of L4 on L5 with severe bilateral neural foraminal narrow ing, central narrowing and erosive endplate changes. Spinal stimulator device is present. IMPRESSION: 1. Multiple bilateral nonobstructing renal stones. No evidence of obstructing ureteral calculus. 2. Grade 2 anterolisthesis of L4 on L5 with associated degenerative type changes.
[2018-09-03 20:11] LABS: Appearance,Urine Clear (Clear); Bilirubin,Urine Negative (Negative); Blood,Urine Negative (Negative); Color,Urine Yellow; Glucose,Urine (UA) 4+ (Negative); Ketones,Urine Negative (Negative); Leukocyte Esterase,Urine Small (Negative); Mucus,Urine Rare /hpf; Nitrite,Urine Negative (Negative); Protein,Urine Negative (Negative); RBC,Urine 5 /hpf (0-5); Squamous Epithelial Cell,Urine <1 /hpf (0-4); Urobilinogen,Urine <2.0 mg/dL (<2.0); WBC,Urine 10 /hpf (0-5)
[2018-09-03 23:19] VITALS: BP 145/80; PULSE 78; TEMP 97.7
== END 2018-09-03 23:19 | disposition home or self-care (01) ==
LOC: EC 16:39
DX: R10.31 Right lower quadrant pain (principal); R19.7 Diarrhea, unspecified; I48.91 Unspecified atrial fibrillation; I25.10 Atherosclerotic heart disease of native coronary artery without angina pectoris; K21.9 Gastro-esophageal reflux disease without esophagitis; E78.5 Hyperlipidemia, unspecified; E11.40 Type 2 diabetes mellitus with diabetic neuropathy, unspecified; Z87.891 Personal history of nicotine dependence; Z79.4 Long term (current) use of insulin; Z79.899 Other long term (current) drug therapy; Z88.2 Allergy status to sulfonamides; Z95.1 Presence of aortocoronary bypass graft; Z90.49 Acquired absence of other specified parts of digestive tract; Z53.8 Procedure and treatment not carried out for other reasons
CPT/HCPCS: 36415; 71046; 74176; 80053; 81001; 83690; 84484; 85025; 93005; 99285

== ENCOUNTER → 2018-10-03 | Outpatient (CLI) | payer MEDICARE ==
[2018-10-03 18:42] LABS: Folate, Serum 22.6 ng/mL
[2018-10-05 08:19] LABS: Vit B1(Thiamine) 92 ug/L (38-122)
== END | disposition home or self-care (01) ==
LOC: LABWHC1 12:59
PROVIDERS: ATTEND Psychiatry & Neurology Pain Medicine
DX: R53.83 Other fatigue (principal); Z51.81 Encounter for therapeutic drug level monitoring
CPT/HCPCS: 36415; 82607; 82746; 84207; 84425; 84439; 84443; 84481; 84591

== ENCOUNTER → 2019-06-09 | Outpatient (CLI) | payer MEDICARE ==
--- NOTE | 2019-06-11 00:01 | CTL ---
EXAMINATION TYPE: CT Low Dose Lung DATE OF EXAM ORDERED: 06/09/2019 HISTORY: 63-year-old female personal history of nicotine dependence. Lung cancer screening Automated exposure control for dose reduction was used. SCREENING VISIT: Annual follow-up COMPARISON: 05/12/2018 TECHNIQUE: Low dose computed tomography scan was performed through the chest at 1 mm thick sections a nd reconstructed images in the coronal and sagittal plane. Additional coronal MIP reconstruction perf ormed. CT DIAGNOSTIC QUALITY: Satisfactory FINDINGS: Median sternotomy wires are present with post-CABG changes. Heart normal size. Aorta normal caliber with conventional arch vessel branching anatomy and mild atherosclerotic arch ca lcifications. No thoracic lymphadenopathy by CT size criteria. Moderate upper lung centrilobular emphysema and mild diffuse bronchial wall thickening is redemonstra maria elena. Stable 6 mm calcified granuloma posteromedial right lower lobe, axial image 163. Numerous additional bilateral 4 mm and smaller pulmonary nodules are present, some of which are calci fied. There is pleural parenchymal scarring periphery of the left base and left midlung is unchanged. Left apical pleural parenchymal scarring is unchanged. No consolidation or pleural effusion. Tiny hiatal hernia. Otherwise, visualized noncontrast low-dose CT appearance of the upper abdomen michelle ws no gross abnormality. Bones: Spinal stimulator array along the lower thoracic spinal canal. Accentuated mid thoracic kyphos is with moderate degenerative disc disease throughout. IMPRESSION: 1. LungRADS 2 - benign; prior granulomatous disease and additional scattered 4 mm and smaller pulmona ry nodules, all stable. 2. COPD with moderate emphysema. 3. Tiny hiatal hernia. RECOMMENDATION: 1. Continue annual low-dose lung cancer screening CT. 2. Smoking cessation. FOLLOW UP CT CHEST RECOMMENDATION: [address] LUNG RAD: Lung-Rad 2 Benign Appearance or Behavior
== END ==
LOC: RADCTMAIN 09:21
PROVIDERS: ATTEND Family Medicine
DX: J43.9 Emphysema, unspecified (principal); Z87.891 Personal history of nicotine dependence

== ENCOUNTER 2020-04-10 02:07 | Emergency (ER) | payer MEDICARE ==
[2020-04-10] MEDS ORDERED: MORPHINE SULFATE 4 MG/ML SYRINGE IV STA (02:12)
[2020-04-10] MEDS ORDERED: SODIUM CHLORIDE 0.9% 1,000 ML IV STA ×2 (02:12→03:39)
--- NOTE | 2020-04-10 02:13 | ED ---
Abdominal Pain HPI - General Stated Complaint: Flank pain, blood in urine Source: RN notes reviewed, old records reviewed Limitations: no limitations - History of Present Illness MD Complaint: abdominal pain, flank pain (Left and hematuria) -: hour(s) Location: diffuse, LLQ, suprapubic Radiation: L flank Migration to: suprapubic Severity: severe Severity scale (1-10): 10 Quality: stabbing Consistency: constant Improves With: nothing Worsens With: nothing Associated Symptoms: nausea - Related Data Home Medications Medication Instructions Recorded Confirmed Atorvastatin [Lipitor] 40 mg PO HS 03/23/16 03/09/17 DULoxetine HCL [Cymbalta] 60 mg PO DAILY 03/23/16 03/09/17 Insulin Glargine [Lantus] 40 unit SQ HS 03/23/16 03/09/17 Metoprolol Tartrate [Lopressor] 50 mg PO BID 03/23/16 03/09/17 Omeprazole [PriLOSEC] 20 mg PO AC-BRKFST 03/23/16 03/09/17 Carbidopa/Levodopa [Sinemet CR 1 tab PO HS 03/09/17 03/09/17 50-200 mg] Celecoxib [CeleBREX] 400 mg PO DAILY 03/09/17 03/09/17 Gabapentin [Neurontin] 900 mg PO TID 03/09/17 03/09/17 Previous Rx's Medication Instructions Recorded Albuterol Inhaler (Mhu) [Ventolin 2 puff INHALATION Q6HR PRN #1 03/09/17 Hfa Inhaler (Mhu)] inhaler Magnesium 200 mg PO DAILY #14 tablet 03/09/17 Dicyclomine [Bentyl] 20 mg PO QID #20 tablet 09/03/18 Allergies Allergy/AdvReac Type Severity Reaction Status Date / Time Sulfa (Sulfonamide Allergy Rash/Hives Verified 04/10/20 02:21 Antibiotics) Review of Systems ROS Statement: Those systems with pertinent positive or pertinent negative responses have been documented in the HPI. ROS Other: All systems not noted in ROS Statement are negative. Past Medical History Past Medical History: Atrial Fibrillation, Coronary Artery Disease (CAD), COPD, Diabetes Mellitus, GERD/Reflux, Hyperlipidemia Additional Past Medical History / Comment(s): post polio syndrome, neuropathy, hx. spontaneous pneumothorax, recent diarrhea History of Any Multi-Drug Resistant Organisms: C-DIFF Date of last positivie culture/infection: 2013 MDRO Source:: stool Past Surgical History: Back Surgery, Bowel Resection, Cholecystectomy, Coronary Bypass/CABG, Tonsillectomy Additional Past Surgical History / Comment(s): triple bypass 2013, left salpingo-oophorectomy Past Anesthesia/Blood Transfusion Reactions: No Reported Reaction Past Psychological History: No Psychological Hx Reported Past Alcohol Use History: None Reported Past Drug Use History: None Reported - Past Family History Mother Family Medical History: Cancer General Exam General appearance: alert, in no apparent distress Head exam: Present: atraumatic, normocephalic, normal inspection Eye exam: Present: normal appearance, PERRL, EOMI. Absent: scleral icterus, conjunctival injection, periorbital swelling ENT exam: Present: normal exam, mucous membranes moist Neck exam: Present: normal inspection. Absent: tenderness, meningismus, lymp hadenopathy Respiratory exam: Present: normal lung sounds bilaterally. Absent: respiratory distress, wheezes, rales, rhonchi, stridor Cardiovascular Exam: Present: regular rate, normal rhythm, normal heart sounds. Absent: systolic murmur, diastolic murmur, rubs, gallop, clicks GI/Abdominal exam: Present: soft, normal bowel sounds. Absent: distended, tenderness, guarding, rebound, rigid Extremities exam: Present: normal inspection, full ROM, normal capillary refill. Absent: tenderness, pedal edema, joint swelling, calf tenderness Back exam: Present: normal inspection Neurological exam: Present: alert, oriented X3, CN II-XII intact Psychiatric exam: Present: normal affect, normal mood Skin exam: Present: warm, dry, intact, normal color. Absent: rash Course Vital Signs 04/10/20 04/10/20 02:18 04:08 Temperature 98 F 98.3 F Pulse Rate 73 97 Respiratory 18 16 Rate Blood Pressure 180/90 163/92 O2 Sat by Pulse 97 93 L Oximetry - Reevaluation(s) Reevaluation #1: medical record is reviewed patient has symptoms resolved and feeling better patient is informed of results and ok for discharge Medical Decision Making - Lab Data Result diagrams: 04/10/20 02:12 04/10/20 02:12 Lab Results 04/10/20 04/10/20 Range/Units 02:12 02:12 WBC 13.3 H (3.8-10.6) k/uL RBC 5.24 (3.80-5.40) m/uL Hgb 15.5 (11.4-16.0) gm/dL Hct 46.0 (34.0-46.0) % MCV 87.7 (80.0-100.0) fL MCH 29.6 (25.0-35.0) pg MCHC 33.7 (31.0-37.0) g/dL RDW 13.8 (11.5-15.5) % Plt Count 170 (150-450) k/uL MPV 8.1 Neutrophils % 82 % Lymphocytes % 9 % Monocytes % 6 % Eosinophils % 2 % Basophils % 0 % Neutrophils # 10.9 H (1.3-7.7) k/uL Lymphocytes # 1.2 (1.0-4.8) k/uL Monocytes # 0.8 (0-1.0) k/uL Eosinophils # 0.3 (0-0.7) k/uL Basophils # 0.0 (0-0.2) k/uL Sodium 137 (137-145) mmol/L Potassium 3.9 (3.5-5.1) mmol/L Chloride 103 (98-107) mmol/L Carbon Dioxide 23 (22-30) mmol/L Anion Gap 11 mmol/L BUN 19 H (7-17) mg/dL Creatinine 0.93 (0.52-1.04) mg/dL Est GFR (CKD-EPI)AfAm 75 (>60 ml/min/1.73 sqM) Est GFR (CKD-EPI)NonAf 65 (>60 ml/min/1.73 sqM) Glucose 179 H (74-99) mg/dL Calcium 10.2 (8.4-10.2) mg/dL Total Bilirubin 0.9 (0.2-1.3) mg/dL AST 22 (14-36) U/L ALT 16 (4-34) U/L Alkaline Phosphatase 106 (38-126) U/L Total Protein 7.5 (6.3-8.2) g/dL Albumin 4.2 (3.5-5.0) g/dL Amylase 54 (30-110) U/L Lipase 99 (23-300) U/L Disposition Clinical Impression: Left ureteral calculus Disposition: HOME SELF-CARE Condition: Good Instructions (If sedation given, give patient instructions): Kidney Stones (ED) Is patient prescribed a controlled substance at d/c from ED?: No Referrals: Serian Leblanc MD [Primary Care Provider] - 1-2 days
[2020-04-10] MEDS ORDERED: ONDANSETRON 4 MG/2 ML VIAL IVP STA (02:28)
--- NOTE | 2020-04-10 03:02 | CT ---
EXAM: CT Abdomen and Pelvis Without Intravenous Contrast CLINICAL HISTORY: ITS.REASON CT Reason: abdominal pain TECHNIQUE: Axial computed tomography images of the abdomen and pelvis without intravenous contrast. CTDI is 18.87 mGy and DLP is 1034.4 mGy-cm. This CT exam was performed using one or more of the following dose reduction techniques: automated exposure control, adjustment of the mA and/or kV according to patient size, and/or use of iterative reconstruction technique. COMPARISON: No relevant prior studies available. FINDINGS: Lung bases: Unremarkable. No mass. No consolidation. ABDOMEN: Liver: The unenhanced liver is unremarkable. Gallbladder and bile ducts: Status post cholecystectomy. Mild ectasia of the common bile duct. No intrahepatic biliary dilatation. Pancreas: Unremarkable. No ductal dilation. Spleen: Unremarkable. No splenomegaly. Adrenals: Unremarkable. No mass. Kidneys and ureters: 4 mm proximal left ureteral stone noted at the level of the L3-4 disc with mild left hydroureteronephrosis, perinephric and periureteral fat stranding. The right kidney is lobulated and slightly atrophic, compared to the left kidney. Additional nonobstructive subcentimeter nephrolithiasis noted bilaterally. Stomach and bowel: Evaluation of the bowel mucosa is slightly limited without contrast; however, no definite focal asymmetry suggested. No evidence for bowel obstruction. Scattered diverticulosis of the sigmoid colon without findings to suggest diverticulitis. Incidental postsurgical changes involving the sigmoid colon. PELVIS: Appendix: No findings to suggest acute appendicitis. Bladder: Unremarkable. No stones. Reproductive: Unremarkable as visualized. ABDOMEN and PELVIS: Intraperitoneal space: Unremarkable. No free air. No significant fluid collection. Bones/joints: Severe degenerative changes at L4-5 with 10 mm anterolisthesis of L4 on L5, secondary to bilateral L4 spondylolysis. No acute osseous abnormality identified. No dislocation. Soft tissues: The spinal stimulator generator overlies the left flank superficial to the paraspinal musculature. The overlying soft tissues are otherwise unremarkable. Vasculature: Atherosclerotic calcification of the aorta and iliac arteries without aneurysm. Lymph nodes: Unremarkable. No enlarged lymph nodes. Tubes, lines and devices: Intrathecal spinal stimulator leads noted extending into the thoracic spine, the superior margin is not identified. The stimulator leads enter the intrathecal space at T11-12. IMPRESSION: 1. 4 mm proximal left ureteral stone noted at the level of the L3-4 disc with mild left hydroureteronephrosis, perinephric and periureteral fat stranding. 2. Evaluation of bowel mucosa is limited without contrast. No bowel obstruction. Scattered diverticulosis of the sigmoid colon without findings to suggest diverticulitis. No free intraperitoneal fluid or pneumoperitoneum. 3. Severe degenerative changes at L4-5 with 10 mm anterolisthesis of L4 on L5, secondary to bilateral L4 spondylolysis. No acute osseous abnormality identified.
[2020-04-10 03:10] LABS: Basophils % (A) 0 %; Eosinophils # (A) 0.3 k/uL (0-0.7); Eosinophils % (A) 2 %; HGB 15.5 gm/dL (11.4-16.0); Lymphocytes # (A) 1.2 k/uL (1.0-4.8); Lymphocytes % (A) 9 %; MCH 29.6 pg (25.0-35.0); MCHC 33.7 g/dL (31.0-37.0); MCV 87.7 fL (80.0-100.0); Mean Platelet Volume 8.1; Monocytes # (A) 0.8 k/uL (0-1.0); Monocytes % (A) 6 %; Neutrophils # (A) 10.9 k/uL (1.3-7.7); Neutrophils % (A) 82 %; Platelet Count 170 k/uL (150-450); RBC 5.24 m/uL (3.80-5.40); RDW 13.8 % (11.5-15.5); WBC 13.3 k/uL (3.8-10.6)
[2020-04-10] MEDS ORDERED: KETOROLAC 15 MG/ML 1 ML VIAL IVP STA (03:39)
[2020-04-10] MEDS ORDERED: TAMSULOSIN 0.4 MG CAP.ER.24H PO STA (03:39)
[2020-04-10] MEDS ORDERED: HYDROmorphone 1 MG/ML 1 ML SYRINGE IVP STA (03:39)
[2020-04-10] MEDS ORDERED: IBUPROFEN 600 MG STARTER PACK 4 TAB BTL PO STA (03:41)
[2020-04-10] MEDS ORDERED: ACET/COD 300 MG/30 MG STARTER PACK 6 TAB BTL PO STA (03:41)
[2020-04-10] MEDS ORDERED: ONDANSETRON 4 MG ODT STARTER PACK 2 TAB BTL PO STA (03:41)
[2020-04-10 03:44] LABS: Albumin 4.2 g/dL (3.5-5.0); Calcium 10.2 mg/dL (8.4-10.2); Potassium 3.9 mmol/L (3.5-5.1); Total Bilirubin 0.9 mg/dL (0.2-1.3); Total Protein 7.5 g/dL (6.3-8.2)
[2020-04-10 04:10] VITALS: BP 163/92; PULSE 97; RESP 16; TEMP 98.3
== END 2020-04-10 04:09 | disposition home or self-care (01) ==
LOC: EC 02:07
DX: N20.1 Calculus of ureter (principal); E11.40 Type 2 diabetes mellitus with diabetic neuropathy, unspecified; E78.5 Hyperlipidemia, unspecified; K21.9 Gastro-esophageal reflux disease without esophagitis; Z79.4 Long term (current) use of insulin; Z79.899 Other long term (current) drug therapy; Z88.2 Allergy status to sulfonamides; Z87.891 Personal history of nicotine dependence; Z95.1 Presence of aortocoronary bypass graft; Z90.49 Acquired absence of other specified parts of digestive tract; Z90.721 Acquired absence of ovaries, unilateral
CPT/HCPCS: 80053; 82150; 83690; 85025; 74176; 99285; 96374; 96375 ×2; 96361; J2270; J2405; J1170; S0119

== ENCOUNTER → 2020-06-12 | Outpatient (CLI) | payer MEDICARE ==
--- NOTE | 2020-06-16 09:45 | MM ---
Reason for exam: screening (asymptomatic). Last mammogram was performed 2 years ago. History: Patient is postmenopausal. Family history of breast cancer in mother at age 55. Physical Findings: A clinical breast exam by your physician is recommended on an annual basis and results should be correlated with mammographic findings. MG 3D Screening Mammo W/Cad Bilateral CC, MLO, and XCCL view(s) were taken. Prior study comparison: June 01, 2018, bilateral MG 3d screening mammo w/cad. October 22, 2016, bilateral MG 3d screening mammo w/cad. There are scattered fibroglandular densities. Focal asymmetry left MLO, present previously. No significant changes when compared with prior studies. ASSESSMENT: Benign, BI-RAD 2 RECOMMENDATION: Routine screening mammogram of both breasts in 1 year.
== END | disposition home or self-care (01) ==
LOC: RADMAMWWP 11:37
PROVIDERS: ATTEND Family Medicine
DX: Z12.31 Encounter for screening mammogram for malignant neoplasm of breast (principal)
CPT/HCPCS: 77063; 77067

== ENCOUNTER → 2020-06-25 | Outpatient (CLI) | payer MEDICARE ==
--- NOTE | 2020-06-25 14:47 | CTL ---
EXAMINATION TYPE: CT Low Dose Lung DATE OF EXAM ORDERED: 06/25/2020 HISTORY: Long-term tobacco use. Lung cancer screening CT DLP: [address] CTDI: 3.21 mGy Automated exposure control for dose reduction was used. SCREENING VISIT: Second after baseline COMPARISON: Prior studies 2019 and 2019 TECHNIQUE: Low dose computed tomography scan was performed through the chest at 1 mm thick sections a nd reconstructed images in the coronal plane at [address] DIAGNOSTIC QUALITY: Limited, but interpretable Limitations due to patient's large body habitus similar to prior studies. FINDINGS: LUNG NODULES: Present, detailed below: Stable 6 mm medial calcified right lower lobe nodule or granuloma axial image 172. Redemonstration of scattered 4 mm or smaller calcified and noncalcified nodules bilaterally. No new greater than 4 mm nodules. LUNGS: COPD: Severity: Mild to moderate. Fibrosis: Severity: Mild to moderate lateral left basilar Lymph nodes: None Other findings: None RIGHT PLEURAL SPACE: Effusion: None Calcification: None Thickening: None Pneumothorax: None LEFT PLEURAL SPACE: Effusion: None Calcification: None Thickening: None Pneumothorax: None HEART: Heart Size: Normal Coronary calcification: Post CABG changes noted Pericardial effusion: None OTHER FINDINGS: Upper abdomen: None Bony thorax: Spinal stimulator device mid to lower thoracic spinal canal posteriorly redemonstrated Supraclavicular region: None. Other: None. IMPRESSION: Stable scattered small micronodules and old granulomatous disease. CT LUNG RAD AND CT CHEST RECOMMENDATION: Lung-Rad 2 Benign Appearance or Behavior: Continue annual sc reening with LDCT in 12 months. S Modifier (other clinically significant findings): None
== END | disposition home or self-care (01) ==
LOC: RADCTMAIN 13:46
PROVIDERS: ATTEND Family Medicine
DX: Z12.2 Encounter for screening for malignant neoplasm of respiratory organs (principal); R91.8 Other nonspecific abnormal finding of lung field; D71 Functional disorders of polymorphonuclear neutrophils; Z87.891 Personal history of nicotine dependence
CPT/HCPCS: 71271

== ENCOUNTER 2020-10-25 20:24 | Emergency (ER) | payer MEDICARE ==
[2020-10-25 20:30] VITALS: RESP 18
[2020-10-25] MEDS ORDERED: ONDANSETRON 4 MG/2 ML VIAL IVP STA (21:33)
[2020-10-25] MEDS ORDERED: MORPHINE SULFATE 4 MG/ML SYRINGE IV STA (21:33)
[2020-10-25] MEDS ORDERED: SODIUM CHLORIDE 0.9% 1,000 ML IV STA (21:33)
[2020-10-25] MEDS ORDERED: diphenhydrAMINE 50 MG/ML 1 ML VIAL IVP STA (21:52)
[2020-10-25 21:54] LABS: Basophils % (A) 0 %; Eosinophils # (A) 0.2 k/uL (0-0.7); Eosinophils % (A) 2 %; HCT 44.2 % (34.0-46.0); HGB 15.6 gm/dL (11.4-16.0); Lymphocytes # (A) 2.2 k/uL (1.0-4.8); Lymphocytes % (A) 22 %; MCH 31.3 pg (25.0-35.0); MCHC 35.2 g/dL (31.0-37.0); MCV 88.8 fL (80.0-100.0); Mean Platelet Volume 7.4; Monocytes # (A) 0.9 k/uL (0-1.0); Monocytes % (A) 9 %; Neutrophils # (A) 6.7 k/uL (1.3-7.7); Neutrophils % (A) 66 %; Platelet Count 213 k/uL (150-450); RBC 4.97 m/uL (3.80-5.40); RDW 13.7 % (11.5-15.5); WBC 10.1 k/uL (3.8-10.6)
--- NOTE | 2020-10-25 22:03 | ED ---
General Adult HPI - General Chief complaint: Abdominal Pain Stated complaint: ABD pain Time Seen by Provider: 10/25/20 20:43 Source: patient, RN notes reviewed Mode of arrival: wheelchair Limitations: no limitations - History of Present Illness Initial comments: 65-year-old female presents to the emergency room for a chief complaint of atrial fibrillation, CAD, COPD, diabetes mellitus, GERD, hyperlipidemia presents to the emergency room for a chief complaint of abdominal pain. Patient reports that she has had abdominal pain for the past day or so. States she gets concerned when she has abdominal pain as she had a large abscess in her abdomen in 2009 and had a partial colon resection. Patient denies fevers or chills. Denies diarrhea. Denies vomiting.Patient has no other complaints at this time including shortness of breath, chest pain, nausea or vomiting, headache, or visual changes. - Related Data Home Medications Medication Instructions Recorded Confirmed Atorvastatin [Lipitor] 40 mg PO HS 03/23/16 03/09/17 DULoxetine HCL [Cymbalta] 60 mg PO DAILY 03/23/16 03/09/17 Insulin Glargine [Lantus] 40 unit SQ HS 03/23/16 03/09/17 Metoprolol Tartrate [Lopressor] 50 mg PO BID 03/23/16 03/09/17 Omeprazole [PriLOSEC] 20 mg PO AC-BRKFST 03/23/16 03/09/17 Carbidopa/Levodopa [Sinemet CR 1 tab PO HS 03/09/17 03/09/17 50-200 mg] Celecoxib [CeleBREX] 400 mg PO DAILY 03/09/17 03/09/17 Gabapentin [Neurontin] 900 mg PO TID 03/09/17 03/09/17 Previous Rx's Medication Instructions Recorded Albuterol Inhaler (Mhu) [Ventolin 2 puff INHALATION Q6HR PRN #1 03/09/17 Hfa Inhaler (Mhu)] inhaler Magnesium 200 mg PO DAILY #14 tablet 03/09/17 Dicyclomine [Bentyl] 20 mg PO QID #20 tablet 09/03/18 Dicyclomine [Bentyl] 20 mg PO TID PRN #20 tablet 10/25/20 Allergies Allergy/AdvReac Type Severity Reaction Status Date / Time Sulfa (Sulfonamide Allergy Rash/Hives Verified 10/25/20 20:26 Antibiotics) Review of Systems ROS Statement: Those systems with pertinent positive or pertinent negative responses have been documented in the HPI. ROS Other: All systems not noted in ROS Statement are negative. Past Medical History Past Medical History: Atrial Fibrillation, Coronary Artery Disease (CAD), COPD, Diabetes Mellitus, GERD/Reflux, Hyperlipidemia Additional Past Medical History / Comment(s): post polio syndrome, neuropathy, hx. spontaneous pneumothorax, recent diarrhea History of Any Multi-Drug Resistant Organisms: C-DIFF Date of last positivie culture/infection: 2013 MDRO Source:: stool Past Surgical History: Back Surgery, Bowel Resection, Cholecystectomy, Coronary Bypass/CABG, Tonsillectomy Additional Past Surgical History / Comment(s): triple bypass 2013, left salpingo-oophorectomy Past Anesthesia/Blood Transfusion Reactions: No Reported Reaction Past Psychological History: No Psychological Hx Reported Smoking Status: Former smoker Past Alcohol Use History: None Reported Past Drug Use History: None Reported - Past Family History Mother Family Medical History: Cancer General Exam Limitations: no limitations General appearance: alert, in no apparent distress Head exam: Present: atraumatic, normocephalic, normal inspection Eye exam: Present: normal appearance, PERRL, EOMI. Absent: scleral icterus, conjunctival injection, periorbital swelling ENT exam: Present: normal exam, mucous membranes moist Neck exam: Present: normal inspection, full ROM. Absent: tenderness, meningismus, lymphadenopathy Respiratory exam: Present: normal lung sounds bilaterally Cardiovascular Exam: Present: regular rate, normal rhythm, normal heart sounds. Absent: systolic murmur, diastolic murmur, rubs, gallop, clicks GI/Abdominal exam: Present: soft, tenderness (minimal lower abd tenderness), normal bowel sounds. Absent: distended, guarding, rebound, rigid Back exam: Absent: CVA tenderness (R), CVA tenderness (L) Neurological exam: Present: alert Course Vital Signs 10/25/20 20:26 Temperature 97.8 F Pulse Rate 86 Respiratory 18 Rate Blood Pressure 130/72 O2 Sat by Pulse 95 Oximetry Medical Decision Making - Medical Decision Making Vitals are stable. HPI and physical exam as documented. CBC is unremarkable. CMP does show evidence of dehydration. Lactic acid of 2.4 likely secondary to dehydration. Patient was given a liter of fluids. Urinalysis is unremarkable. Patient was given pain medication. Significant improvement in symptoms. Patient will be discharged to follow-up with primary care. She'll return here for any worsening symptoms. - Lab Data Result diagrams: 10/25/20 21:36 10/25/20 21:36 Lab Results 10/25/20 10/25/20 10/25/20 Range/Units 21:36 21:36 21:36 WBC 10.1 (3.8-10.6) k/uL RBC 4.97 (3.80-5.40) m/uL Hgb 15.6 (11.4-16.0) gm/dL Hct 44.2 (34.0-46.0) % MCV 88.8 (80.0-100.0) fL MCH 31.3 (25.0-35.0) pg MCHC 35.2 (31.0-37.0) g/dL RDW 13.7 (11.5-15.5) % Plt Count 213 (150-450) k/uL MPV 7.4 Neutrophils % 66 % Lymphocytes % 22 % Monocytes % 9 % Eosinophils % 2 % Basophils % 0 % Neutrophils # 6.7 (1.3-7.7) k/uL Lymphocytes # 2.2 (1.0-4.8) k/uL Monocytes # 0.9 (0-1.0) k/uL Eosinophils # 0.2 (0-0.7) k/uL Basophils # 0.0 (0-0.2) k/uL Sodium 142 (137-145) mmol/L Potassium 3.9 (3.5-5.1) mmol/L Chloride 106 (98-107) mmol/L Carbon Dioxide 23 (22-30) mmol/L Anion Gap 13 mmol/L BUN 18 H (7-17) mg/dL Creatinine 0.95 (0.52-1.04) mg/dL Est GFR (CKD-EPI)AfAm 72 (>60 ml/min/1.73 sqM) Est GFR (CKD-EPI)NonAf 63 (>60 ml/min/1.73 sqM) Glucose 155 H (74-99) mg/dL Plasma Lactic Acid [place] (0.7-2.0) mmol/L Calcium 10.3 H (8.4-10.2) mg/dL Total Bilirubin 0.5 (0.2-1.3) mg/dL AST 22 (14-36) U/L ALT 16 (4-34) U/L Alkaline Phosphatase 89 (38-126) U/L Total Protein 7.4 (6.3-8.2) g/dL Albumin 4.6 (3.5-5.0) g/dL Amylase 77 (30-110) U/L Lipase 205 (23-300) U/L Urine Color Light Yellow Urine Appearance Clear (Clear) Urine pH 6.0 (5.0-8.0) Ur Specific [place] 1.032 (1.001-1.035) Urine Protein Negative (Negative) Urine Glucose (UA) Negative (Negative) Urine Ketones Negative (Negative) Urine Blood Negative (Negative) Urine Nitrite Negative (Negative) Urine Bilirubin Negative (Negative) Urine Urobilinogen <2.0 (<2.0) mg/dL Ur Leukocyte Esterase Trace H (Negative) Urine RBC 2 (0-5) /hpf Urine WBC 1 (0-5) /hpf Ur Squamous Epith Cells 1 (0-4) /hpf Urine Mucus Rare H (None) /hpf 10/25/20 Range/Units 21:36 WBC (3.8-10.6) k/uL RBC (3.80-5.40) m/uL Hgb (11.4-16.0) gm/dL Hct (34.0-46.0) % MCV (80.0-100.0) fL MCH (25.0-35.0) pg MCHC (31.0-37.0) g/dL RDW (11.5-15.5) % Plt Count (150-450) k/uL MPV Neutrophils % % Lymphocytes % % Monocytes % % Eosinophils % % Basophils % % Neutrophils # (1.3-7.7) k/uL Lymphocytes # (1.0-4.8) k/uL Monocytes # (0-1.0) k/uL Eosinophils # (0-0.7) k/uL Basophils # (0-0.2) k/uL Sodium (137-145) mmol/L Potassium (3.5-5.1) mmol/L Chloride (98-107) mmol/L Carbon Dioxide (22-30) mmol/L Anion Gap mmol/L BUN (7-17) mg/dL Creatinine (0.52-1.04) mg/dL Est GFR (CKD-EPI)AfAm (>60 ml/min/1.73 sqM) Est GFR (CKD-EPI)NonAf (>60 ml/min/1.73 sqM) Glucose (74-99) mg/dL Plasma Lactic Acid [place] 2.4 H* (0.7-2.0) mmol/L Calcium (8.4-10.2) mg/dL Total Bilirubin (0.2-1.3) mg/dL AST (14-36) U/L ALT (4-34) U/L Alkaline Phosphatase (38-126) U/L Total Protein (6.3-8.2) g/dL Albumin (3.5-5.0) g/dL Amylase (30-110) U/L Lipase (23-300) U/L Urine Color Urine Appearance (Clear) Urine pH (5.0-8.0) Ur Specific [place] (1.001-1.035) Urine Protein (Negative) Urine Glucose (UA) (Negative) Urine Ketones (Negative) Urine Blood (Negative) Urine Nitrite (Negative) Urine Bilirubin (Negative) Urine Urobilinogen (<2.0) mg/dL Ur Leukocyte Esterase (Negative) Urine RBC (0-5) /hpf Urine WBC (0-5) /hpf Ur Squamous Epith Cells (0-4) /hpf Urine Mucus (None) /hpf Disposition Clinical Impression: Abdominal pain Disposition: HOME SELF-CARE Condition: Good Instructions (If sedation given, give patient instructions): Abdominal Pain (ED) Additional Instructions: Please take Bentyl for pain. Please follow-up with primary care in 1-2 days. Return to the emergency room for any worsening symptoms. Prescriptions: Dicyclomine [Bentyl] 20 mg PO TID PRN #20 tablet PRN Reason: abdominal pain Is patient prescribed a controlled substance at d/c from ED?: No Referrals: Serina Leblanc MD [Primary Care Provider] - 1-2 days Time of Disposition: 23:21
[2020-10-25 22:07] LABS: Albumin 4.6 g/dL (3.5-5.0); Calcium 10.3 mg/dL (8.4-10.2); Potassium 3.9 mmol/L (3.5-5.1); Total Bilirubin 0.5 mg/dL (0.2-1.3); Total Protein 7.4 g/dL (6.3-8.2)
[2020-10-25 23:08] LABS: Appearance,Urine Clear (Clear); Bilirubin,Urine Negative (Negative); Blood,Urine Negative (Negative); Color,Urine Light Yellow; Glucose,Urine (UA) Negative (Negative); Ketones,Urine Negative (Negative); Leukocyte Esterase,Urine Trace (Negative); Mucus,Urine Rare /hpf; Nitrite,Urine Negative (Negative); Protein,Urine Negative (Negative); RBC,Urine 2 /hpf (0-5); Specific Gravity,Urine 1.032 (1.001-1.035); Squamous Epithelial Cell,Urine 1 /hpf (0-4); Urobilinogen,Urine <2.0 mg/dL (<2.0); WBC,Urine 1 /hpf (0-5)
--- NOTE | 2020-10-25 23:10 | CT ---
EXAMINATION TYPE: CT abdomen pelvis w con DATE OF EXAM: 10/25/2020 COMPARISON: 04/10/2020 HISTORY: Abdominal pain CT DLP: 1924.3 mGycm Automated exposure control for dose reduction was used. CONTRAST: Performed with IV Contrast, patient injected with 100 mL of Isovue 300. Images obtained of the abdomen from the diaphragm to the floor the pelvis with IV contrast. Lung bases are clear of consolidation. There is no pleural effusion. Heart size is normal. There is n o pericardial effusion. Liver spleen stomach pancreas appear intact. The bile ducts are not dilated. There is no adrenal mass. Kidneys show satisfactory contrast opacification. There is no hydronephrosi s. There is 2 mm calculus lower pole left kidney. There is 2 mm calculi upper pole right kidney. Chrissy yed images show normal renal excretion. Ureters are not dilated. Bladder distends smoothly. There is no inguinal hernia. There is no free fluid in the pelvis. Uterus is anteverted. I see no pelvic mass. There is no free fluid in the abdomen. There is no mesenteric edema. There is no ascites or free air . There is no sign of a bowel obstruction. Appendix is partly filled with air and appears normal. Abd ominal aorta is atheromatous. There is a second-degree L4-5 spondylolisthesis with bilateral L4 spondylolysis. There is no compress ion fracture. There is moderate narrowing of L4-5 disc space. The bony pelvis is intact. The hip join ts are intact. There is no hip dysplasia. Proximal femurs are intact. IMPRESSION: Bilateral nonobstructing renal calculi. There is some mild focal cortical thinning in the upper and l ower pole right kidney that relate to scarring and chronic pyelonephritis unchanged. There is clearin g of the left side renal obstruction compared to old exam. Normal appendix. There is stable L4-5 spon dylolisthesis.
[2020-10-25 23:33] VITALS: BP 127/94; PULSE 78; TEMP 98.9
== END 2020-10-25 23:35 | disposition home or self-care (01) ==
LOC: EC 20:24
DX: R10.30 Lower abdominal pain, unspecified (principal); J44.9 Chronic obstructive pulmonary disease, unspecified; E78.5 Hyperlipidemia, unspecified; E11.40 Type 2 diabetes mellitus with diabetic neuropathy, unspecified; I48.91 Unspecified atrial fibrillation; I25.10 Atherosclerotic heart disease of native coronary artery without angina pectoris; K21.9 Gastro-esophageal reflux disease without esophagitis; Z87.891 Personal history of nicotine dependence; Z79.1 Long term (current) use of non-steroidal anti-inflammatories (NSAID); Z79.4 Long term (current) use of insulin; Z79.899 Other long term (current) drug therapy; Z88.2 Allergy status to sulfonamides; Z90.49 Acquired absence of other specified parts of digestive tract; Z90.721 Acquired absence of ovaries, unilateral; Z95.1 Presence of aortocoronary bypass graft
CPT/HCPCS: 36415; 80053; 82150; 83605; 83690; 85025; 81001; 74177; 99284; 96374; 96375 ×2; J2270; J1200; J2405; Q9967

== ENCOUNTER 2021-05-18 08:24 | Observation (INO) | payer MEDICARE ==
[2021-05-18] MEDS ORDERED: HYDROmorphone 0.5 MG/0.5 ML SYRINGE IVP STA (08:47)
--- NOTE | 2021-05-18 08:56 | ED ---
Extremity Problem HPI - General Chief complaint: Extremity Problem,Nontraumatic Stated complaint: groin/leg/hip/back pain Time Seen by Provider: 05/18/21 08:32 Source: patient Mode of arrival: wheelchair Limitations: no limitations - History of Present Illness Initial comments: Patient is a 65-year-old female with past medical history of lumbar laminectomy in 2007, post polio syndrome, and diabetes with neuropathy who presents with a chief complaint of right hip pain. Patient reports she started to feel pain in the right hip last night around 10 PM, no mechanism of injury. Patient reports there is radiation to the right side of her lower back and her right thigh. Patient describes the pain as shooting, 10/10 in severity. Pain is worse with sitting. Patient took Tylenol with no relief of pain. She reports right thigh paresthesia and numbness. Patient does note right leg numbness but the numbness is unchanged from her previous neuropathy. She denies fever, chills, shortness of breath, chest pain, saddle anesthesia, urinary incontinence, and urinary retention. - Related Data Home Medications Medication Instructions Recorded Confirmed Atorvastatin [Lipitor] 40 mg PO HS 03/23/16 05/18/21 DULoxetine HCL [Cymbalta] 60 mg PO HS 03/23/16 05/18/21 Metoprolol Tartrate [Lopressor] 50 mg PO BID 03/23/16 05/18/21 Omeprazole [PriLOSEC] 20 mg PO DAILY 03/23/16 05/18/21 Calcium Carbonate [Calcium] 600 mg PO DAILY 05/18/21 05/18/21 Celecoxib [CeleBREX] 200 mg PO HS 05/18/21 05/18/21 Cholecalciferol (Vitamin D3) 125 mcg PO DAILY 05/18/21 05/18/21 [Vitamin D3 (125 MCG = 5,000 IU)] Gabapentin 600 mg PO BID 05/18/21 05/18/21 Insulin Glargine,Hum.rec.anlog 40 unit SQ HS 05/18/21 05/18/21 [Lantus Solostar Pen] Lisinopril [Prinivil] 10 mg PO DAILY 05/18/21 05/18/21 Montelukast [Singulair] 10 mg PO HS 05/18/21 05/18/21 Ubidecarenone [Co Q-10] 100 mg PO DAILY 05/18/21 05/18/21 amLODIPine [Norvasc] 10 mg PO HS 05/18/21 05/18/21 oxyCODONE HCL [oxyCODONE HCL (IR)] 10 mg PO DAILY PRN 05/18/21 05/18/21 oxyCODONE HCL [oxyCODONE HCL (IR)] 10 mg PO HS 05/18/21 05/18/21 Allergies Allergy/AdvReac Type Severity Reaction Status Date / Time Sulfa (Sulfonamide Allergy Rash/Hives Verified 05/18/21 09:35 Antibiotics) Review of Systems ROS Statement: Those systems with pertinent positive or pertinent negative responses have been documented in the HPI. ROS Other: All systems not noted in ROS Statement are negative. Past Medical History Past Medical History: Atrial Fibrillation, Coronary Artery Disease (CAD), COPD, Diabetes Mellitus, GERD/Reflux, Hyperlipidemia Additional Past Medical History / Comment(s): post polio syndrome, neuropathy, hx. spontaneous pneumothorax, recent diarrhea History of Any Multi-Drug Resistant Organisms: C-DIFF Date of last positivie culture/infection: 2013 MDRO Source:: stool Past Surgical History: Back Surgery, Bowel Resection, Cholecystectomy, Coronary Bypass/CABG, Tonsillectomy Additional Past Surgical History / Comment(s): triple bypass 2013, left salpingo-oophorectomy Past Anesthesia/Blood Transfusion Reactions: No Reported Reaction Past Psychological History: No Psychological Hx Reported Smoking Status: Former smoker Past Alcohol Use History: None Reported Past Drug Use History: None Reported - Past Family History Mother Family Medical History: Cancer General Exam Limitations: no limitations General appearance: alert, in no apparent distress Head exam: Present: atraumatic, normocephalic, normal inspection Eye exam: Present: normal appearance, PERRL, EOMI. Absent: scleral icterus, conjunctival injection, periorbital swelling Neck exam: Present: normal inspection, full ROM Respiratory exam: Present: normal lung sounds bilaterally. Absent: respiratory distress, wheezes, rales, rhonchi, stridor Cardiovascular Exam: Present: regular rate, normal rhythm, normal heart sounds. Absent: systolic murmur, diastolic murmur, rubs, gallop, clicks Extremities exam: Present: normal inspection (Right hip pain is exacerbated with hip flexion, abduction, and external rotation.), full ROM, normal capillary refill. Absent: tenderness, pedal edema, joint swelling, calf tenderness Back exam: Present: normal inspection, full ROM, tenderness (Tender to palpation over the right lumbar paravertebral muscles), paraspinal tenderness. Absent: CVA tenderness (R), CVA tenderness (L), muscle spasm, vertebral tenderness, rash noted Neurological exam: Present: alert, oriented X3, CN II-XII intact, other (No saddle anesthesia) Psychiatric exam: Present: normal affect, normal mood Skin exam: Present: warm, dry, intact, normal color. Absent: rash Course Vital Signs 05/18/21 08:27 Temperature 97.9 F Pulse Rate 67 Respiratory 18 Rate Blood Pressure 124/70 O2 Sat by Pulse 97 Oximetry Medical Decision Making - Medical Decision Making Patient is 65 year old female with a past medical history of lumbar laminectomy, post-polio syndrome, and diabetes with neuropathy who presents with right hip pain. Patient is hemodynamically stable. No mechanism of injury. Lumbar spine x-ray reveals redemonstration of the following: right scoliotic curvature, grade 1 anterolisthesis of L5 and L6, moderate disc space narrowing at L5 to L6, lower lumbar spine laminectomy defects, and lower lumbar spine facet arthropathy. Mild to moderate height loss of L5 to L6 anteriorly is more prominent from prior scan without suggestion of acute fracture. Right hip x-ray suspects osteopenia. Right knee x-ray reveals no acute fracture or dislocation evident, moderate to severe narrowing and moderate spurring of the lateral tibial femoral compartment, moderate to severe narrowing of the patellofemoral compartment, increased density of the suprapatellar bursal consistent with moderate size joint effusion. Results discussed with the patient. Patient reports that after x-rays were taking she was moving to the bed when she lost fe eling in her right leg and almost fell. Patient reports that her right leg feels substantially weaker since x-rays were taken and that she is unable to walk. She states that she has new loss of sensation in her right leg when compared to the left. On evaluation patient has 2/5 muscle strength of the right hip and 5/5 muscle strength of the left hip. She has full active range of motion with right and left hip abduction and adduction. She has light touch sensation over the right hip, right thigh, right leg, right foot, and right lower extremity digits. Patient has 2/5 muscle strength of the right arm but states that she has been unable to lift her right arm since she got polio in her arm at 6 months old. Face and smile are symmetrical, speech is unchanged. Patient reports no history of stroke. Discussed case with Dr. Maddox who recommended stroke work-up. CBC and CMP are unremarkable. Head CT reveals no acute intracranial hemorrhage or midline shift, there is mild diffuse cerebral atrophy and chronic small vessel ischemic changes noted. Patient will be admitted with consult to Dr. Avila for further neurologic evaluation and treatment. - Lab Data Result diagrams: 05/18/21 10:41 05/18/21 10:41 Lab Results 05/18/21 05/18/21 05/18/21 Range/Units 10:41 10:41 10:41 WBC 9.0 (3.8-10.6) k/uL RBC 4.53 (3.80-5.40) m/uL Hgb 14.4 (11.4-16.0) gm/dL Hct 41.9 (34.0-46.0) % MCV 92.6 (80.0-100.0) fL MCH 31.7 (25.0-35.0) pg MCHC 34.3 (31.0-37.0) g/dL RDW 14.0 (11.5-15.5) % Plt Count 202 (150-450) k/uL MPV 8.0 Neutrophils % 69 % Lymphocytes % 20 % Monocytes % 7 % Eosinophils % 2 % Basophils % 1 % Neutrophils # 6.2 (1.3-7.7) k/uL Lymphocytes # 1.8 (1.0-4.8) k/uL Monocytes # 0.6 (0-1.0) k/uL Eosinophils # 0.2 (0-0.7) k/uL Basophils # 0.0 (0-0.2) k/uL PT 10.4 (9.0-12.0) sec INR 1.0 (<1.2) APTT 24.3 (22.0-30.0) sec Sodium 138 (137-145) mmol/L Potassium 4.7 (3.5-5.1) mmol/L Chloride 109 H (98-107) mmol/L Carbon Dioxide 19 L (22-30) mmol/L Anion Gap 10 mmol/L BUN 23 H (7-17) mg/dL Creatinine 0.74 (0.52-1.04) mg/dL Est GFR (CKD-EPI)AfAm >90 (>60 ml/min/1.73 sqM) Est GFR (CKD-EPI)NonAf 85 (>60 ml/min/1.73 sqM) Glucose 146 H (74-99) mg/dL Calcium 9.4 (8.4-10.2) mg/dL Total Bilirubin 1.1 (0.2-1.3) mg/dL AST 56 H (14-36) U/L ALT 23 (4-34) U/L Alkaline Phosphatase 83 (38-126) U/L Total Protein 7.0 (6.3-8.2) g/dL Albumin 3.9 (3.5-5.0) g/dL - EKG Data EKG Comments: EKG taken at 12:12 Sinus bradycardia, right bundle branch block Ventricular rate 54 PA interval 192 QRS duration 128 QT/QTc 462/438 Disposition Clinical Impression: Acute right hip pain, Right leg weakness Disposition: ADMITTED IP TO THIS HOSP Condition: Good Referrals: Serina Leblanc MD [Primary Care Provider] - 1-2 days Time of Disposition: 12:37
--- NOTE | 2021-05-18 09:23 | XR ---
EXAMINATION TYPE: XR knee complete RT DATE OF EXAM: 05/18/2021 CLINICAL HISTORY: Pain. TECHNIQUE: Three views of the right knee are obtained. COMPARISON: None. FINDINGS: There is no acute fracture/dislocation evident in right knee. Mgptyfie-to-vxlzel narrowing and moderate spurring lateral tibiofemoral compartment. Moderate to severe narrowing patellofemoral compartment. Increased density suprapatellar bursa consistent with moderate size joint effusion. IMPRESSION: As above.
--- NOTE | 2021-05-18 09:33 | XR ---
Right hip HISTORY: Pain, no injury 2 views of the right hip, correlation to CT scan abdomen pelvis 10/25/2020 Bone mineralization is reduced which can limit sensitivity. Joint spaces and alignment are maintained . No fracture or dislocation is evident. IMPRESSION: Osteopenia is suspected. Alternate imaging may be of benefit, consider lumbar and/or hip MRI as indicated.
--- NOTE | 2021-05-18 09:34 | XR ---
EXAMINATION TYPE: XR lumbar spine 2 or 3V DATE OF EXAM: 05/18/2021 CLINICAL HISTORY: Low back pain. TECHNIQUE: Frontal and lateral images of the lumbar spine are obtained. COMPARISON: CT abdomen pelvis October 25, 2020 FINDINGS: There are 5 lumbar type vertebral bodies identified. Transitional type L6 vertebra lumbosa cral junction . The lumbar spine redemonstrates slight scoliotic curvature. Grade 1 anterolisthesis o f L5 on L6 is redemonstrated. Moderate disc space narrowing at this level again seen. Ypbl-gx-[id number] e height loss anteriorly is more prominent from prior without suggest acute fracture. Spinal stimulat or device ascending and the thoracic spinal canal is redemonstrated. Lower lumbar spine laminectomy d efects are spinous process resection redemonstrated. Lower lumbar spine facet arthropathy redemonstra maria elena. IMPRESSION: As above.
--- NOTE | 2021-05-18 11:23 | CT ---
EXAMINATION TYPE: CT brain wo con DATE OF EXAM: 05/18/2021 HISTORY: new onset leg weakness/numbness CT DLP: 1090.4 mGycm. Automated Exposure Control for Dose Reduction was Utilized. TECHNIQUE: CT scan of the head is performed without contrast. COMPARISON: None. FINDINGS: There is no acute intracranial hemorrhage or midline shift identified. There is mild diff use ventricular and sulcal prominence consistent with diffuse age-related cerebral atrophy. There is mild low-attenuation in the periventricular white matter consistent with chronic small vessel ischem ic change. Left mastoid surgical changes present. Paranasal sinuses are grossly clear. Globes are int act bilaterally. IMPRESSION: No acute intracranial hemorrhage or midline shift. There is mild diffuse cerebral atrop hy and chronic small vessel ischemic change noted.
[2021-05-18 11:25] LABS: Basophils % (A) 1 %; Eosinophils # (A) 0.2 k/uL (0-0.7); Eosinophils % (A) 2 %; HCT 41.9 % (34.0-46.0); HGB 14.4 gm/dL (11.4-16.0); Lymphocytes # (A) 1.8 k/uL (1.0-4.8); Lymphocytes % (A) 20 %; MCH 31.7 pg (25.0-35.0); MCHC 34.3 g/dL (31.0-37.0); MCV 92.6 fL (80.0-100.0); Monocytes # (A) 0.6 k/uL (0-1.0); Monocytes % (A) 7 %; Neutrophils # (A) 6.2 k/uL (1.3-7.7); Neutrophils % (A) 69 %; Platelet Count 202 k/uL (150-450); RBC 4.53 m/uL (3.80-5.40)
[2021-05-18 11:30] LABS: ALT 23 U/L (4-34); African American GFR (CKD) >90 (>60 ml/min/1.73 sqM); Albumin 3.9 g/dL (3.5-5.0); Anion Gap 10 mmol/L; Blood Urea Nitrogen 23 mg/dL (7-17); Calcium 9.4 mg/dL (8.4-10.2); Carbon Dioxide 19 mmol/L (22-30); Chloride 109 mmol/L (98-107); Glucose 146 mg/dL (74-99); Non-African American GFR(CKD) 85 (>60 ml/min/1.73 sqM); Sodium 138 mmol/L (137-145); Total Bilirubin 1.1 mg/dL (0.2-1.3)
[2021-05-18 11:33] LABS: AST 56 U/L (14-36); Alkaline Phosphatase 83 U/L (38-126); Potassium 4.7 mmol/L (3.5-5.1)
[2021-05-18] MEDS ORDERED: NALOXONE 0.4 MG/ML 1 ML VIAL IV PRN (11:38)
[2021-05-18] MEDS ORDERED: HYDROmorphone 0.5 MG/0.5 ML SYRINGE IVP ONE (11:44)
[2021-05-18 11:54] LABS: Partial Thromboplastin Time 24.3 sec (22.0-30.0); Prothrombin Time 10.4 sec (9.0-12.0)
--- NOTE | 2021-05-18 17:06 | P.CNNES ---
History of Present Illness Consult date: 05/18/21 Requesting physician: Mercedes Newton Reason for Consult: nw right leg weakness History of Present Illness: This is a 65-year-old woman with medical history of chronic lower back pain, lumbar laminectomy 2007, polio with residual weakness over the right side (predominately upper), diabetes mellitus, peripheral neuropathy who presented to the emergency department on 05/18/2021 for right hip pain. Patient states that the she's been having right hip pain since last night around 10 PM and denies any injury. He felt the right hip pain was radiating down the right groin region as well as that she noticed the pain was going to his/her right posterior back pain and the pain was shooting down. She also noticed today that her right leg was weak. And she has numbness on the entire right lower extremity that she noticed today. She denies of any urinary or bowel problems. She denies of any fever, shortness of breath or cough recently. She denies of any new weakness of the upper extremities, visual disturbance, difficulty swallowing. She denies of any difficulty getting her words out. She states that that she has chronic back pain but yesterday she noticed right hip pain. She said that the she usually has weakness over the right side predominantly right upper extremity but does have right lower extremity weakness and her right-sided weakness she was told was due to her postpolio syndrome. She had EMG with nerve conduction last one done over the lower extremity was at [facility] and and it was done in 2017 and was told that she has postpolio syndrome and that she is using the the strength more on the left lower extremity compared to the right. She said that she has a pain stimulator in the last 4-[address] Redmond and she continues to see him. She stated that she ran out of her battery for the pain stimulator in the last 1 month. She states that her pain stimulator is not the compatible for MRI. She denies of any neck pain. She denies of any new numbness or tingling over the upper extremity. Patient had polio when she was 6 month old. She had the lumbar laminectomy in 2007. Some of the patient's home medication consist of Lipitor 40 mg, vitamin D3 5000 units daily, calcium, dorsal, metoprolol, lisinopril, gabapentin 600 mg 1 tablet twice a day, Cymbalta 60 mg daily at bedtime, Celebrex, Lantus, Norvasc, oxycodone. Some other workup in the hospital consisted of: CT of the brain is reported as no acute intracranial hemorrhage or midline shift. There is a mild diffuse cerebral atrophy and chronic small vessel ischemic changes noted there. I personally reviewed that a CT of the head and I agree with the report that. Lumbar x-ray is reported as mild to moderate height loss anteriorly is more prominent from prior. Spinal stimulator device. Lower lumbar spine laminectomy defect are spinous process resection redemonstrated. Right hip x-rays reported as osteopenia suspected. Alternative imaging may be of benefit, consider lumbar and hip MRI as indicated that. CBC with differential is unremarkable. Chemistry panel as well as a serum glucose is 146, chloride is 109, AST of 56 and ALT of 23 otherwise consider panel is unremarkable Desir virus PCR was not detected. PT, PTT and INR is within normal limits Review of Systems Review of system: The 12 point system was reviewed and apparent positive and negative per HPI. Past Medical History Past Medical History: Atrial Fibrillation, Coronary Artery Disease (CAD), COPD, Diabetes Mellitus, GERD/Reflux, Hyperlipidemia Additional Past Medical History / Comment(s): post polio syndrome, neuropathy, hx. spontaneous pneumothorax, recent diarrhea History of Any Multi-Drug Resistant Organisms: C-DIFF Date of last positivie culture/infection: 2013 MDRO Source:: stool Past Surgical History: Back Surgery, Bowel Resection, Cholecystectomy, Coronary Bypass/CABG, Ear Surgery, Tonsillectomy Additional Past Surgical History / Comment(s): triple bypass 2013, left salpingo-oophorectomy Past Anesthesia/Blood Transfusion Reactions: No Reported Reaction Past Psychological History: No Psychological Hx Reported Smoking Status: Former smoker Past Alcohol Use History: None Reported Additional Past Alcohol Use History / Comment(s): quit smoking 2008, 1ppd since age of 15 Past Drug Use History: None Reported - Past Family History Mother Family Medical History: Cancer Medications and Allergies Home Medications Medication Instructions Recorded Confirmed Type Atorvastatin [Lipitor] 40 mg PO HS 03/23/16 05/18/21 History DULoxetine HCL [Cymbalta] 60 mg PO HS 03/23/16 05/18/21 History Metoprolol Tartrate [Lopressor] 50 mg PO BID 03/23/16 05/18/21 History Omeprazole [PriLOSEC] 20 mg PO DAILY 03/23/16 05/18/21 History Calcium Carbonate [Calcium] 600 mg PO DAILY 05/18/21 05/18/21 History Celecoxib [CeleBREX] 200 mg PO HS 05/18/21 05/18/21 History Cholecalciferol (Vitamin D3) 125 mcg PO DAILY 05/18/21 05/18/21 History [Vitamin D3 (125 MCG = 5,000 IU)] Gabapentin 600 mg PO BID 05/18/21 05/18/21 History Insulin Glargine,Hum.rec.anlog 40 unit SQ HS 05/18/21 05/18/21 History [Lantus Solostar Pen] Lisinopril [Prinivil] 10 mg PO DAILY 05/18/21 05/18/21 History Montelukast [Singulair] 10 mg PO HS 05/18/21 05/18/21 History Ubidecarenone [Co Q-10] 100 mg PO DAILY 05/18/21 05/18/21 History amLODIPine [Norvasc] 10 mg PO HS 05/18/21 05/18/21 History oxyCODONE HCL [oxyCODONE HCL (IR)] 10 mg PO DAILY PRN 05/18/21 05/18/21 History oxyCODONE HCL [oxyCODONE HCL (IR)] 10 mg PO HS 05/18/21 05/18/21 History Allergies Allergy/AdvReac Type Severity Reaction Status Date / Time Sulfa (Sulfonamide Allergy Rash/Hives Verified 05/18/21 09:35 Antibiotics) Physical Examination - Vital Signs Vital Signs: Vital Signs Temp Pulse Pulse Resp BP BP Pulse Ox 05/18/21 15:00 98.3 F 69 18 133/69 93 L 05/18/21 08:27 97.9 F 67 18 124/70 97 Intake and Output 05/18/21 05/18/21 05/18/21 06:59 14:59 22:59 Other: Weight 88.451 kg GENERAL: The patient is lying in bed and is not in acute distress. CHEST: The heart rate is regular rate rhythm. No murmurs to auscultation. LUNG: Clear to auscultation bilaterally no wheezing noted throughout. Not labored breathing. ABDOMEN/GI: Bowel sounds present in all 4 quadrants. No tenderness to palpation throughout. NEUROLOGICAL: Higher mental function: The patient is awake, alert, oriented to self, place and time. Patient is following commands. No aphasia and no neglect. Cranial nerves: The pupils are round, equal and reactive to light and accommodation. Visual zimmerman are full to confrontation throughout. Extraocular movement is intact no nystagmus is noted. Facial sensation is normal to touch throughout. The facial strength is normal throughout. Hearing is normal bilaterally to hand rub. Tongue is midline and moved [id number] without any difficulty. No dysarthria is noted. Shoulder shrug is normal bilaterally. Motor: Gait is deferred because of right leg weakness. The strength is right hip flexion/extension 4+/4-, knee extension/flexion is 1-2/2 while ankle is 5/5. Right upper extremity is 4 (old). Left side is 5/5. Some decrease tone over the right upper extremity and some atrophy. Cerebellum: Normal finger to nose bilaterally. Sensation: Sensation is decreased from L1-L2 dermatome to touch. Reflexes (right/left): 2+ throughout left upper and brachioradialis left is 3+. Otherwise right upper is 1+. Right patellar is 0, left is 1+, bilateral ankles are 1+. Plantars are mute bilaterally. Results - Laboratory Findings CBC and BMP: 05/18/21 10:41 05/18/21 10:41 Abnormal Lab Findings: Abnormal Labs 05/18/21 10:41 Chloride 109 H Carbon Dioxide 19 L BUN 23 H Glucose 146 H AST 56 H Assessment and Plan Assessment: Acute right hip pain/back pain with weakness over right lower extremity (hip and knee but normal ankle) and numbness: Rule out plexopathy or lumbosacral radiculopathy History of Polio with residual weakness over right side (predominately upper extremity) History of lumbar laminectomy 2007 Chronic Lower back pain s/p pain stimulator for past 4-5 years Diabetes mellitus Peripheral neuropathy due to diabetes mellitus Plan: I ordered CT lumbar and plevis w/o. She has a pain stimulator and is non-MRI compatible. Ordered HbA1c, Vitamin B12, folate, TSH level. I consulted orthopedic team. Recommend getting repeat EMG with [facility] as outpatient (her last one was at [facility] in 2017) and was told her right sided weakness was due to "Post- Polio Syndrome). Consulted physical therapy and occupation therapy Every 4 hours neuro checks Will defer the rest of medical management to the primary team. Upon discharge, the patient needs to follow-up with her neurologist (Dr. Redmond) within 1-2 weeks. The plan is discussed with the patient and her nurse. Thank you for the consultation. Mani Avila M.D. Neuro-Hospitalist Time with Patient: Greater than 30
--- NOTE | 2021-05-18 18:37 | P.HPIM ---
History of Present Illness H&P Date: 05/18/21 Shelby Robison, he is a 65-year-old female who presented to [facility] emergency room with a chief complaint of severe pain in the right hip area radiating to the groin and to the right thigh, she was evaluated in the emergency room, x-ray of the right hip was ordered, patient was maintained down on the x-ray table, and subsequently she felt very weak in her right lower extremity with some numbness in the lower extremity she stated that she was not able to stand or walk anymore she was evaluated again in the emergency room computed tomography scan of the brain was done and did not reveal any acute intracranial bleeding. She was admitted to medical floor neurology consultation was requested. Patient has a known history of degenerative disc disease with history of lumbar laminectomy in 2007 she is maintained on oxycodone at home, she also has a known history of post polio syndrome, history of hypertension, hyperlipidemia, osteoarthritis, and insulin-dependent diabetes mellitus. Past Medical History Past Medical History: Atrial Fibrillation, Coronary Artery Disease (CAD), COPD, Diabetes Mellitus, GERD/Reflux, Hyperlipidemia Additional Past Medical History / Comment(s): post polio syndrome, neuropathy, hx. spontaneous pneumothorax, recent diarrhea History of Any Multi-Drug Resistant Organisms: C-DIFF Date of last positivie culture/infection: 2013 MDRO Source:: stool Past Surgical History: Back Surgery, Bowel Resection, Cholecystectomy, Coronary Bypass/CABG, Ear Surgery, Tonsillectomy Additional Past Surgical History / Comment(s): triple bypass 2013, left salpingo-oophorectomy Past Anesthesia/Blood Transfusion Reactions: No Reported Reaction Past Psychological History: No Psychological Hx Reported Smoking Status: Former smoker Past Alcohol Use History: None Reported Additional Past Alcohol Use History / Comment(s): quit smoking 2008, 1ppd since age of 15 Past Drug Use History: None Reported - Past Family History Mother Family Medical History: Cancer Medications and Allergies Home Medications Medication Instructions Recorded Confirmed Type Atorvastatin [Lipitor] 40 mg PO HS 03/23/16 05/18/21 History DULoxetine HCL [Cymbalta] 60 mg PO HS 03/23/16 05/18/21 History Metoprolol Tartrate [Lopressor] 50 mg PO BID 03/23/16 05/18/21 History Omeprazole [PriLOSEC] 20 mg PO DAILY 03/23/16 05/18/21 History Calcium Carbonate [Calcium] 600 mg PO DAILY 05/18/21 05/18/21 History Celecoxib [CeleBREX] 200 mg PO HS 05/18/21 05/18/21 History Cholecalciferol (Vitamin D3) 125 mcg PO DAILY 05/18/21 05/18/21 History [Vitamin D3 (125 MCG = 5,000 IU)] Gabapentin 600 mg PO BID 05/18/21 05/18/21 History Insulin Glargine,Hum.rec.anlog 40 unit SQ HS 05/18/21 05/18/21 History [Lantus Solostar Pen] Lisinopril [Prinivil] 10 mg PO DAILY 05/18/21 05/18/21 History Montelukast [Singulair] 10 mg PO HS 05/18/21 05/18/21 History Ubidecarenone [Co Q-10] 100 mg PO DAILY 05/18/21 05/18/21 History amLODIPine [Norvasc] 10 mg PO HS 05/18/21 05/18/21 History oxyCODONE HCL [oxyCODONE HCL (IR)] 10 mg PO DAILY PRN 05/18/21 05/18/21 History oxyCODONE HCL [oxyCODONE HCL (IR)] 10 mg PO HS 05/18/21 05/18/21 History Allergies Allergy/AdvReac Type Severity Reaction Status Date / Time Sulfa (Sulfonamide Allergy Rash/Hives Verified 05/18/21 09:35 Antibiotics) Physical Exam Vitals: Vital Signs Temp Pulse Pulse Resp BP BP Pulse Ox 05/18/21 15:00 98.3 F 69 18 133/69 93 L 05/18/21 08:27 97.9 F 67 18 124/70 97 Intake and Output 05/18/21 05/18/21 05/18/21 06:59 14:59 22:59 Other: Weight 88.451 kg In general patient is alert and oriented x 3 in no distress HEENT head normocephalic and atraumatic Neck is supple no JVD no goiter no lymphadenopathy no carotid bruit Chest examination is clear to auscultation no crackles no wheezing Cardiac exam reveals regular heart sounds S1 and S2 no gallops no murmurs Abdomen is soft nontender no organomegaly with normal bowel sounds Extremity exam reveals no edema no cyanosis or clubbing Neurological examination reveals patient is alert and oriented 3 in no distress There is minimal weakness in the right lower extremity as compared to the left, patient also has some minimal weakness in the right upper extremity, it's not clear whether this is acute or chronic related to her post polio syndrome Results CBC & Chem 7: 05/18/21 10:41 05/18/21 10:41 Labs: Abnormal Lab Results - Last 24 Hours (Table) 05/18/21 Range/Units 10:41 Chloride 109 H (98-107) mmol/L Carbon Dioxide 19 L (22-30) mmol/L BUN 23 H (7-17) mg/dL Glucose 146 H (74-99) mg/dL AST 56 H (14-36) U/L Thrombosis Risk Factor Assmnt - Choose All That Apply Each Factor Represents 1 point: Obesity (BMI >25) Other Risk Factors: Yes Each Risk Factor Represents 2 Points: Age 61-74 years Thrombosis Risk Factor Assessment Total Risk Factor Score: 3 Thrombosis Risk Factor Assessment Level: Moderate Risk Assessment and Plan Plan: Severe pain in the right hip and right thigh Acute weakness per patient in the right lower extremity started while in the emergency room Underlying history of degenerative disc disease with history of lumbar laminectomy and stimulator placement for pain management Underlying history of insulin-dependent diabetes mellitus Underlying history of hypertension Underlying history of hyperlipidemia Underlying history of postpolio syndrome At this time patient is admitted to medical floor Neurology consultation requested Home medications reviewed and reordered For DVT prophylaxis will start subcu Lovenox Will check right lower extremity Doppler to rule out DVT Will follow closely
[2021-05-18 18:56] LABS: Potassium 3.8 mmol/L (3.5-5.1)
[2021-05-18] MEDS: oxyCODONE-APAP 10-325MG 1 EACH TAB PO PRN (19:06)
--- NOTE | 2021-05-18 19:13 | CT ---
EXAMINATION TYPE: CT pelvis wo con DATE OF EXAM: 05/18/2021 COMPARISON: 10/25/2020 HISTORY: back and groin pain, unable to walk CT DLP: 988 mGycm Automated exposure control for dose reduction was used. Images obtained from the iliac crests to the subtrochanteric femurs without contrast. The pelvic ring appears intact. Sacroiliac joints are intact. Sacral segments have normal alignment. There is a second-degree L5-S1 spondylolisthesis. There is spinal stenosis at L4-5 related to subluxa tion deformity. The proximal femurs and hip joints are intact. Hip joint spaces are fairly normal. Th ere is atherosclerotic vascular calcification. I see no bony destructive process. There is no evidenc e of a pelvic mass. There is no free fluid in the pelvis. Appendix appears normal. IMPRESSION: There is a second-degree L4-5 spondylolisthesis with spinal stenosis. No acute bony abnormality. No a cute fracture.
--- NOTE | 2021-05-18 19:42 | CT ---
EXAMINATION TYPE: CT lumbar spine wo con DATE OF EXAM: 05/18/2021 COMPARISON: 10/25/2020 HISTORY: back and groin pain, unable to walk CT DLP: 1002 mGycm Automated exposure control for dose reduction was used. Images obtained from T12 to S2 vertebra without contrast. There is a second-degree L4-5 spondylolisthesis. There is 12 mm subluxation. There is bilateral L4 sp ondylolysis. There is bony spinal stenosis at L4-5 due to the subluxation deformity and spur formatio n. There is no compression fracture. There is moderate narrowing at L4-5 disc space. There is no lumb ar paraspinal mass. There are nonobstructing bilateral renal calculi. There is no evidence of retrope ritoneal adenopathy. Sacroiliac joints are intact. IMPRESSION: There is L4 spondylolysis with second-degree L4-5 spondylolisthesis. L4-5 bony spinal stenosis. No ac [place] bony abnormality. Lumbar spine not changed compared to old exam.
[2021-05-18 20:41] LABS: Glucose,Whole Blood 133 mg/dL (75-99)
[2021-05-18] MEDS: METOPROLOL TARTRATE 50 MG TAB PO SCH (20:51)
[2021-05-18] MEDS: amLODIPine 10 MG TAB PO SCH (20:51)
[2021-05-18] MEDS: DULoxetine HCL 60 MG CAPSULE.DR PO SCH (20:51)
[2021-05-18] MEDS: MONTELUKAST 10 MG TAB PO SCH (20:51)
[2021-05-18] MEDS: ATORVASTATIN 40 MG TAB PO SCH (20:51)
[2021-05-18] MEDS: GABAPENTIN 300 MG CAP PO SCH (20:51)
[2021-05-18] MEDS: MELOXICAM 7.5 MG TAB PO SCH (20:52)
[2021-05-18] MEDS: INSULIN DETEMIR (LEVEMIR) 100 UNIT/ML SYR SQ SCH (20:53)
--- NOTE | 2021-05-18 21:22 | US ---
EXAMINATION TYPE: US venous doppler duplex LE RT DATE OF EXAM: 05/18/2021 8:32 PM COMPARISON: US Left lower extremity venous doppler CLINICAL HISTORY: Right lower extremity pain. Right lower extremity pain. Hx clot in left arm. Patien t does not take blood thinners. SIDE PERFORMED: Right TECHNIQUE: The lower extremity deep venous system is examined utilizing real time linear array sonog bella with graded compression, doppler sonography and color-flow sonography. VESSELS IMAGED: Common Femoral Vein Deep Femoral Vein Greater Saphenous Vein * Femoral Vein Popliteal Vein Small Saphenous Vein * Proximal Calf Veins (* superficial vessels) Right Leg: No evidence of DVT in veins imaged at this time. Duplicate femoral vein noted. IMPRESSION: No evidence of deep vein thrombosis in the right leg.
[2021-05-18 23:12] LABS: Folate, Serum >20.00 ng/mL (4.40-31.00)
[2021-05-19 06:58] LABS: Glucose,Whole Blood 104 mg/dL (75-99)
[2021-05-19] MEDS: ENOXAPARIN 40 MG/0.4 ML SYRINGE SQ SCH (08:39)
[2021-05-19] MEDS: GABAPENTIN 300 MG CAP PO SCH ×2 (08:40→22:00)
[2021-05-19] MEDS: CALCIUM CARB-VIT D 500 MG-5 MCG TAB PO SCH (08:40)
[2021-05-19] MEDS: PANTOPRAZOLE 40 MG TABLET PO SCH (08:40)
[2021-05-19] MEDS: METOPROLOL TARTRATE 50 MG TAB PO SCH ×2 (08:40→22:00)
[2021-05-19] MEDS: lisinopriL 10 MG TAB PO SCH (08:40)
[2021-05-19] MEDS: CHOLECALCIFEROL 125 MCG (5000 IU) TABLET PO SCH (08:40)
[2021-05-19] MEDS: oxyCODONE-APAP 10-325MG 1 EACH TAB PO PRN ×3 (08:45→21:58)
[2021-05-19 11:39] LABS: Basophils # (A) 0.04 X 10*3/uL (0.00-0.10); Basophils % (A) 0.5 %; Eosinophils # (A) 0.16 X 10*3/uL (0.04-0.35); Eosinophils % (A) 2.2 %; HCT 42.6 % (37.2-46.3); HGB 13.9 g/dL (12.0-15.0); Immature Grans, Automated 0.5 %; Lymphocytes # (A) 1.72 X 10*3/uL (0.90-5.00); Lymphocytes % (A) 23.3 %; MCH 30.4 pg (27.0-32.0); MCHC 32.6 g/dL (32.0-37.0); MCV 93.2 fL (80.0-97.0); Monocytes # (A) 0.83 X 10*3/uL (0.20-1.00); Monocytes % (A) 11.2 %; NRBC Per 100 WBC 0 /100 WBCS (0.0-0.0); Neutrophils # (A) 4.59 X 10*3/uL (1.80-7.70); Neutrophils % (A) 62.3 %; Platelet Count 177 X 10*3/uL (140-440); RBC 4.57 X 10*6/uL (4.10-5.20); RDW 13.6 % (11.5-14.5); WBC 7.38 X 10*3/uL (4.50-10.00)
[2021-05-19 11:47] LABS: African American GFR (CKD) 103.9 (60.0-200.0); Albumin 4.1 g/dL (3.8-4.9); Albumin/Globulin Ratio 1.78 (1.60-3.17); Anion Gap 12.6 mmol/L (10.00-18.00); BUN/Creat Ratio 21.86 Ratio (12.00-20.00); Blood Urea Nitrogen 15.3 mg/dL (9.0-27.0); Calcium 9.7 mg/dL (8.7-10.3); Carbon Dioxide 22.4 mmol/L (20.0-27.5); Globulin 2.3 g/dL (1.6-3.3); Non-African American GFR(CKD) 89.7 (60.0-200.0); Potassium 4.3 mmol/L (3.5-5.5); Total Bilirubin 0.6 mg/dL (0.30-1.20); Total Protein 6.4 g/dL (6.2-8.2)
[2021-05-19 12:09] LABS: Glucose,Whole Blood 111 mg/dL (75-99)
[2021-05-19] MEDS: DEXAMETHASONE SOD PHOSPHATE 10 MG/ML 1 ML VIAL IVP SCH ×3 (13:17→23:28)
--- NOTE | 2021-05-19 13:35 | P.HPOR ---
History of Present Illness H&P Date: 05/19/21 Chief Complaint: Back pain, right lower extremity pain, right lower extremity weakness Patient is a 65-year-old female that hours. She was consulted on with regards to right leg weakness, right lower extremity pain, low back pain. Patient states that she woke up Tuesday morning with severe pain and weakness to the right lower extremity. Symptoms have worsened over the last few days which prompted her to report to the hospital. Once arriving at the hospital, she underwent multiple imaging studies along with lab studies. Patient was admitted under internal medicine with multiple medical specialties on consult. Patient was evaluated today at bedside, she is resting comfortably in her hospital bed. His having most of her symptoms involving the right lower extremi ty. She gets shooting pain down the right lower extremity from the upper leg to the toes. It's not a consistent pain but does come and go. She also is getting numbness and tingling in the lower extremity. She's not having any symptoms in the left lower extremity at this time. She denies any upper extremity symptoms, this including pain, paresthesias, notable weakness. Patient denies any loss of bowel or bladder function at this time. She denies any numbness or tingling of the genital region and peroneal region. Patient has underwent a previous lumbar surgery, she states it was a laminectomy at L4-L5 that was done back in 2007 had a [facility]. She does see Dr. Redmond import here on, he has done a spinal stimulator that was done about 2 or 3 years ago. She takes oxycodone 10 mg along with gabapentin, Dr. Redmond and is prescribed this. When asked generally about her overall health and activity, she states over the years it severely decreased. She's noticed difficulty with walking, she states that her legs get very weak and tired. She also has the chronic back pain that has worsened since 2007. Review of Systems Constitutional: Reports as per HPI Past Medical History Past Medical History: Atrial Fibrillation, Coronary Artery Disease (CAD), COPD, Diabetes Mellitus, GERD/Reflux, Hyperlipidemia Additional Past Medical History / Comment(s): post polio syndrome, neuropathy, hx. spontaneous pneumothorax, recent diarrhea History of Any Multi-Drug Resistant Organisms: C-DIFF Date of last positivie culture/infection: 2013 MDRO Source:: stool Past Surgical History: Back Surgery, Bowel Resection, Cholecystectomy, Coronary Bypass/CABG, Ear Surgery, Tonsillectomy Additional Past Surgical History / Comment(s): triple bypass 2013, left salpingo-oophorectomy Past Anesthesia/Blood Transfusion Reactions: No Reported Reaction Past Psychological History: No Psychological Hx Reported Smoking Status: Former smoker Past Alcohol Use History: None Reported Additional Past Alcohol Use History / Comment(s): quit smoking 2008, 1ppd since age of 15 Past Drug Use History: None Reported - Past Family History Mother Family Medical History: Cancer Medications and Allergies Home Medications Medication Instructions Recorded Confirmed Type Atorvastatin [Lipitor] 40 mg PO HS 03/23/16 05/18/21 History DULoxetine HCL [Cymbalta] 60 mg PO HS 03/23/16 05/18/21 History Metoprolol Tartrate [Lopressor] 50 mg PO BID 03/23/16 05/18/21 History Omeprazole [PriLOSEC] 20 mg PO DAILY 03/23/16 05/18/21 History Calcium Carbonate [Calcium] 600 mg PO DAILY 05/18/21 05/18/21 History Celecoxib [CeleBREX] 200 mg PO HS 05/18/21 05/18/21 History Cholecalciferol (Vitamin D3) 125 mcg PO DAILY 05/18/21 05/18/21 History [Vitamin D3 (125 MCG = 5,000 IU)] Gabapentin 600 mg PO BID 05/18/21 05/18/21 History Insulin Glargine,Hum.rec.anlog 40 unit SQ HS 05/18/21 05/18/21 History [Lantus Solostar Pen] Lisinopril [Prinivil] 10 mg PO DAILY 05/18/21 05/18/21 History Montelukast [Singulair] 10 mg PO HS 05/18/21 05/18/21 History Ubidecarenone [Co Q-10] 100 mg PO DAILY 05/18/21 05/18/21 History amLODIPine [Norvasc] 10 mg PO HS 05/18/21 05/18/21 History oxyCODONE HCL [oxyCODONE HCL (IR)] 10 mg PO DAILY PRN 05/18/21 05/18/21 History oxyCODONE HCL [oxyCODONE HCL (IR)] 10 mg PO HS 05/18/21 05/18/21 History Allergies Allergy/AdvReac Type Severity Reaction Status Date / Time Sulfa (Sulfonamide Allergy Rash/Hives Verified 05/18/21 09:35 Antibiotics) Physical Examination Gen: AOx3, NAD VSS stable at this time Integument: No obvious open lesions or sores are present throughout the cervical, thoracic or lumbar spine There is a well-healed incision in the lumbar region No fluctuance is appreciated throughout the cervical, thoracic or lumbar spine Palpation: No significant tenderness with palpation to the midline and paraspinal regions of the cervical, thoracic or lumbar spine ROM: Full range of motion in all major muscle groups of the bilateral upper extremities Full range of motion in all major muscle groups of the bilateral lower extremities, she does have difficult time with hip flexion along with knee extension Sensory Exam: Senory exam to light touch is intact C5-T1 Senosry exam to light touch is intact L2-S1 Motor: 5/5 strength appreciated in the bilateral upper extremities with shoulder abduction, forward elevation, elbow extension, elbow flexion, wrist extension, wrist flexion, film inspector 55 strength appreciated in the left lower extremity with hip flexion, knee extension, knee flexion, plantar flexion, dorsiflexion, EHL, FHL 5/5 strength appreciated in the right lower extremity with knee flexion, plantar flexion, dorsiflexion, EHL, FHL 3+/5 strength appreciated in the right lower extremity with hip flexion, knee extension Reflexes: Negative Ottoniel's bilaterally Negative Babinski bilaterally Negative clonus bilaterally Special Test: Logroll maneuver the bilateral lower extremities reproduces no obvious groin pain Results - Labs Labs: Abnormal Lab Results - Last 24 Hours (Table) 05/18/21 05/18/21 05/18/21 Range/Units 10:41 10:41 18:35 BUN/Creatinine Ratio (12.00-20.00) Ratio POC Glucose (mg/dL) (75-99) mg/dL Hemoglobin A1c 7.1 H (0.0-6.0) % TSH 0.296 L 0.244 L (0.350-5.500) uIU/mL 05/18/21 05/19/21 05/19/21 Range/Units 20:40 06:57 06:57 BUN/Creatinine Ratio 21.86 H (12.00-20.00) Ratio POC Glucose (mg/dL) 133 H 104 H (75-99) mg/dL Hemoglobin A1c (0.0-6.0) % TSH (0.350-5.500) uIU/mL 05/19/21 Range/Units 12:08 BUN/Creatinine Ratio (12.00-20.00) Ratio POC Glucose (mg/dL) 111 H (75-99) mg/dL Hemoglobin A1c (0.0-6.0) % TSH (0.350-5.500) uIU/mL H & H 05/18/21 05/19/21 Range/Units 10:41 06:57 Hgb 14.4 13.9 (11.4-16.0) gm/dL Hct 41.9 42.6 (34.0-46.0) % Coagulation 05/18/21 Range/Units 10:41 INR 1.0 (<1.2) Result Diagrams: 05/19/21 06:57 05/19/21 06:57 - Diagnostic results Hip x-ray: report reviewed, image reviewed (Images reviewed of the right hip along with reports, no acute fractures or dislocations appreciated) Knee x-ray: report reviewed, image reviewed (Report and images reviewed of the right knee. Images demonstrate no acute fractures or dislocations. Severe lateral compartment and patellofemoral compartment osteoarthritis) Lumbar AP/lateral x-ray: report reviewed, image reviewed (Report and images were reviewed. No acute fractures or dislocations appreciated. Previous surgical changes noted at the L4-L5 region. Multilevel spondylosis is appreciated, most severe at L3-L4, L4-L5, L5-S1. Spondylolisthesis noted at L4-L5) Assessment and Plan Assessment: Chronic low back pain Right lower extremity radiculopathy Right lower extremity weakness Multilevel lumbar spondylosis Severe spondylosis L4-L5 with spondylolisthesis Other medical comorbidities Plan: I was able to discuss the case, including the physical exam findings and imaging studies my attending Dr. Dunn. No emergent orthopedic surgical intervention recommended at this time. Would recommend starting IV steroids to help with radicular symptoms, 6 mg IV every 6 hours with plan of tapering down if patient states in the hospital for the next few days. Due to patient's spinal stimulator that is in place, she cannot have an MRI. Discussed with Dr. Dunn the possibility of a CT myelogram of the lumbar spine in the outpatient setting. Pain control, continue with her already prescribed prescribed oxycodone and gabapentin GI and DVT prophylaxis per primary medical service PT/OT evaluation Other medical records field technician and recommendations We will continue to monitor during her inpatient stay Time with Patient: Less than 30
--- NOTE | 2021-05-19 14:04 | P.PN ---
Subjective Progress Note Date: 05/19/21 The patient is seen at bedside and she feels somewhat better today compared to yesterday. She said she was able to use walker and walk around. Otherwise continues to have right lower extremity weakness and numbness. The numbness over the right lower extremity she does not feels as pronounced as yesterday. Objective - Vital Signs Vital signs: Vital Signs Temp 97.9 F 05/19/21 07:00 Pulse 65 05/19/21 07:00 Resp 16 05/19/21 07:00 BP 113/64 05/19/21 07:00 Pulse Ox 97 05/19/21 07:00 Intake & Output 05/18/21 05/19/21 05/19/21 18:59 06:59 18:59 Intake Total 120 360 118 Output Total 200 Balance -80 360 118 Weight 88.451 kg Intake: Oral 120 360 118 Output: Urine 200 Other: # Voids 2 - Exam GENERAL: The patient is lying in bed and is not in acute distress. NEUROLOGICAL: Higher mental function: The patient is awake, alert, oriented to self, place and time. Patient is following commands. No aphasia and no neglect. Cranial nerves: The pupils are round, equal and reactive to light and accommodation. Visual zimmerman are full to confrontation throughout. Extraocular movement is intact no nystagmus is noted. Facial sensation is normal to touch throughout. The facial strength is normal throughout. Hearing is normal bilaterally to hand rub. Tongue is midline and moved [id number] without any difficulty. No dysarthria is noted. Shoulder shrug is normal bilaterally. Motor: Gait is deferred because of right leg weakness. The strength is right hip flexion/extension 4+/4-, knee extension/flexion is 2/2 while ankle is 5/5. Right upper extremity is 4 (old). Left side is 5/5. Some decrease tone over the right upper extremity and some atrophy. Cerebellum: Normal finger to nose bilaterally. Sensation: Sensation is decreased from L1-L2 dermatome to touch. Reflexes (right/left): 2+ throughout left upper and brachioradialis left is 3+. Otherwise right upper is 1+. Right patellar is 0, left is 1+, bilateral ankles are 1+. Plantars are mute bilaterally. WORK-UP: CBC with differential is unremarkable. Chemistry panel as well as a serum glucose is 146, chloride is 109, AST of 56 and ALT of 23 otherwise consider panel is unremarkable Desir virus PCR was not detected. PT, PTT and INR is within normal limits TSH is 0.296 and the free T4 is 0.95 0. Vitamin B12 is 266 which is considered very low normal and the normal is between 200-944. Serum folate is more than 20. Hemoglobin A1c is 7.1. CT of the brain is reported as no acute intracranial hemorrhage or midline shift. There is a mild diffuse cerebral atrophy and chronic small vessel ischemic changes noted there. I personally reviewed that a CT of the head and I agree with the report that. Lumbar x-ray is reported as mild to moderate height loss anteriorly is more prominent from prior. Spinal stimulator device. Lower lumbar spine laminectomy defect are spinous process resection redemonstrated. Right hip x-rays reported as osteopenia suspected. Alternative imaging may be of benefit, consider lumbar and hip MRI as indicated that. Lumbar spine CT is reported as L4 spondylosis second-degree L4 to L5 spondy lolithiasis. L4 to L5 bony spinal stenosis. No acute bony abnormality. Lumbar spine not change compared to old exam. Right pelvis CTs reported as second-degree L4 to L5 spondylolithiasis with spina l stenosis. No acute bony abnormality. No acute fracture. - Labs CBC & Chem 7: 05/19/21 06:57 05/19/21 06:57 Labs: Abnormal Lab Results - Last 24 Hours (Table) 05/18/21 05/18/21 05/18/21 Range/Units 10:41 10:41 18:35 BUN/Creatinine Ratio (12.00-20.00) Ratio POC Glucose (mg/dL) (75-99) mg/dL Hemoglobin A1c 7.1 H (0.0-6.0) % TSH 0.296 L 0.244 L (0.350-5.500) uIU/mL 05/18/21 05/19/21 05/19/21 Range/Units 20:40 06:57 06:57 BUN/Creatinine Ratio 21.86 H (12.00-20.00) Ratio POC Glucose (mg/dL) 133 H 104 H (75-99) mg/dL Hemoglobin A1c (0.0-6.0) % TSH (0.350-5.500) uIU/mL 05/19/21 Range/Units 12:08 BUN/Creatinine Ratio (12.00-20.00) Ratio POC Glucose (mg/dL) 111 H (75-99) mg/dL Hemoglobin A1c (0.0-6.0) % TSH (0.350-5.500) uIU/mL Assessment and Plan Assessment: Acute right hip pain/back pain with weakness over right lower extremity (hip and knee but normal ankle) and numbness: Rule out plexopathy or lumbosacral radiculopathy Lumbar spondylosis (L4-L5) Very low normal Vitamin B12 266. 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 Therefore I started the patient on vitamin B12 IM for 2 days and after that by mouth. Hemoglobin A1c is 7.1. Will defer management of Diabetes to primary team. Consulted Orthopedic team. She has a pain stimulator and is non-MRI compatible. They ordered CT myelogram. Recommend getting repeat EMG with [facility] as outpatient (her last one was at [facility] in 2017) and was told her right sided weakness was due to "Post- Polio Syndrome). Consulted physical therapy and occupation therapy Every 4 hours neuro checks Will defer the rest of medical management to the primary team. Upon discharge, the patient needs to follow-up with her neurologist (Dr. Redmond) within 1-2 weeks. The plan is discussed with the patient and her nurse. Will follow-up with patient sporadically. Mani Avila M.D. Neuro-Hospitalist Time with Patient: Less than 30
[2021-05-19] MEDS: CYANOCOBALAMIN 1,000 MCG/ML 1 ML VIAL IM SCH (14:44)
[2021-05-19 17:26] LABS: Glucose,Whole Blood 200 mg/dL (75-99)
[2021-05-19 20:48] LABS: Glucose,Whole Blood 236 mg/dL (75-99)
[2021-05-19] MEDS: MONTELUKAST 10 MG TAB PO SCH (21:59)
[2021-05-19] MEDS: ATORVASTATIN 40 MG TAB PO SCH (21:59)
[2021-05-19] MEDS: DULoxetine HCL 60 MG CAPSULE.DR PO SCH (21:59)
[2021-05-19] MEDS: amLODIPine 10 MG TAB PO SCH (21:59)
[2021-05-19] MEDS: MELOXICAM 7.5 MG TAB PO SCH (21:59)
[2021-05-19] MEDS: INSULIN DETEMIR (LEVEMIR) 100 UNIT/ML SYR SQ SCH (22:00)
[2021-05-19] MEDS: INSULIN ASPART (NovoLOG) 100 UNIT/ML VIAL SQ SCH (22:00)
[2021-05-20] MEDS: oxyCODONE-APAP 10-325MG 1 EACH TAB PO PRN ×3 (05:09→21:10)
[2021-05-20] MEDS: DEXAMETHASONE SOD PHOSPHATE 10 MG/ML 1 ML VIAL IVP SCH ×3 (05:09→17:25)
[2021-05-20 07:03] LABS: Glucose,Whole Blood 275 mg/dL (75-99)
[2021-05-20] MEDS: INSULIN ASPART (NovoLOG) 100 UNIT/ML VIAL SQ SCH ×4 (09:51→21:04)
[2021-05-20] MEDS: GABAPENTIN 300 MG CAP PO SCH ×2 (09:53→21:04)
[2021-05-20] MEDS: CALCIUM CARB-VIT D 500 MG-5 MCG TAB PO SCH (09:54)
[2021-05-20] MEDS: CHOLECALCIFEROL 125 MCG (5000 IU) TABLET PO SCH (09:54)
[2021-05-20] MEDS: PANTOPRAZOLE 40 MG TABLET PO SCH (09:54)
[2021-05-20] MEDS: METOPROLOL TARTRATE 50 MG TAB PO SCH ×2 (09:54→21:05)
[2021-05-20] MEDS: lisinopriL 10 MG TAB PO SCH (09:55)
[2021-05-20] MEDS: CYANOCOBALAMIN 1,000 MCG/ML 1 ML VIAL IM SCH (09:56)
[2021-05-20] MEDS: ENOXAPARIN 40 MG/0.4 ML SYRINGE SQ SCH (10:25)
--- NOTE | 2021-05-20 11:00 | P.PN ---
Subjective Progress Note Date: 05/19/21 Shelby Robison, he is a 65-year-old female who presented to [facility] emergency room with a chief complaint of severe pain in the right hip area radiating to the groin and to the right thigh, she was evaluated in the emergency room, x-ray of the right hip was ordered, patient was maintained down on the x-ray table, and subsequently she felt very weak in her right lower extremity with some numbness in the lower extremity she stated that she was not able to stand or walk anymore she was evaluated again in the emergency room computed tomography scan of the brain was done and did not reveal any acute intracranial bleeding. She was admitted to medical floor neurology consultation was requested. Patient has a known history of degenerative disc disease with history of lumbar laminectomy in 2007 she is maintained on oxycodone at home, she also has a known history of post polio syndrome, history of hypertension, hyperlipidemia, osteoarthritis, and insulin-dependent diabetes mellitus. On 05/20/2021 patient is alert and oriented 3. Patient still having significant pain and weakness to right leg. Orthopedic and neurology services are following. patient denies chest pain or shortness breath. Patient denies nausea vomiting or diarrhea. Patient denies any urinary burning or frequency Objective - Vital Signs Vital signs: Vital Signs Temp 98.0 F 05/19/21 15:00 Pulse 77 05/19/21 15:00 Resp 16 05/19/21 15:00 BP 137/64 05/19/21 15:00 Pulse Ox 91 L 05/19/21 15:00 Intake & Output 05/18/21 05/19/21 05/19/21 18:59 06:59 18:59 Intake Total 120 360 358 Output Total 200 Balance -80 360 358 Weight 88.451 kg Intake: Oral 120 360 358 Output: Urine 200 Other: # Voids 2 2 # Bowel Movements 1 - Exam In general patient is alert and oriented x 3 in no distress HEENT head normocephalic and atraumatic Neck is supple no JVD no goiter no lymphadenopathy no carotid bruit Chest examination is clear to auscultation no crackles no wheezing Cardiac exam reveals regular heart sounds S1 and S2 no gallops no murmurs Abdomen is soft nontender no organomegaly with normal bowel sounds Extremity exam reveals no edema no cyanosis or clubbing Neurological examination reveals patient is alert and oriented 3 in no distress There is minimal weakness in the right lower extremity as compared to the left, patient also has some minimal weakness in the right upper extremity, it's not clear whether this is acute or chronic related to her post polio syndrome - Labs CBC & Chem 7: 05/19/21 06:57 05/19/21 06:57 Labs: Abnormal Lab Results - Last 24 Hours (Table) 05/18/21 05/18/21 05/18/21 Range/Units 10:41 10:41 18:35 BUN/Creatinine Ratio (12.00-20.00) Ratio POC Glucose (mg/dL) (75-99) mg/dL Hemoglobin A1c 7.1 H (0.0-6.0) % TSH 0.296 L 0.244 L (0.350-5.500) uIU/mL 05/18/21 05/19/21 05/19/21 Range/Units 20:40 06:57 06:57 BUN/Creatinine Ratio 21.86 H (12.00-20.00) Ratio POC Glucose (mg/dL) 133 H 104 H (75-99) mg/dL Hemoglobin A1c (0.0-6.0) % TSH (0.350-5.500) uIU/mL 05/19/21 05/19/21 Range/Units 12:08 17:24 BUN/Creatinine Ratio (12.00-20.00) Ratio POC Glucose (mg/dL) 111 H 200 H (75-99) mg/dL Hemoglobin A1c (0.0-6.0) % TSH (0.350-5.500) uIU/mL Assessment and Plan Plan: Severe pain in the right hip and right thigh Acute weakness per patient in the right lower extremity started while in the emergency room Underlying history of degenerative disc disease with history of lumbar luke ctomy and stimulator placement for pain management Underlying history of insulin-dependent diabetes mellitus Underlying history of hypertension Underlying history of hyperlipidemia Underlying history of postpolio syndrome At this time patient is admitted to medical floor Neurology consultation requested Orthopedic service is consulted For DVT prophylaxis will start subcu Lovenox Venous Doppler negative for DVT Will follow closely
--- NOTE | 2021-05-20 11:02 | P.PN ---
Subjective Progress Note Date: 05/20/21 Shelby Robison, he is a 65-year-old female who presented to [facility] emergency room with a chief complaint of severe pain in the right hip area radiating to the groin and to the right thigh, she was evaluated in the emergency room, x-ray of the right hip was ordered, patient was maintained down on the x-ray table, and subsequently she felt very weak in her right lower extremity with some numbness in the lower extremity she stated that she was not able to stand or walk anymore she was evaluated again in the emergency room computed tomography scan of the brain was done and did not reveal any acute intracranial bleeding. She was admitted to medical floor neurology consultation was requested. Patient has a known history of degenerative disc disease with history of lumbar laminectomy in 2007 she is maintained on oxycodone at home, she also has a known history of post polio syndrome, history of hypertension, hyperlipidemia, osteoarthritis, and insulin-dependent diabetes mellitus. On 05/19/2021 patient is alert and oriented 3. Patient still having significant pain and weakness to right leg. Orthopedic and neurology services are following. patient denies chest pain or shortness breath. Patient denies nausea vomiting or diarrhea. Patient denies any urinary burning or frequency On 05/20/2021 patient is alert and oriented 3 currently working with physical therapy. Patient reports minimum improvement to right leg. Patient has been started on IV steroids per orthopedic services and CT myelogram ordered per orthopedic services. Patient to have test completed today. Patient denies chest pain or shortness of breath. Patient denies nausea vomiting or diarrhea. Patient denies any urinary burning or frequency Objective - Vital Signs Vital signs: Vital Signs Temp 97.6 F 05/20/21 07:00 Pulse 86 05/20/21 09:58 Resp 18 05/20/21 07:00 BP 128/67 05/20/21 07:00 Pulse Ox 94 L 05/20/21 07:00 Intake & Output 05/19/21 05/20/21 05/20/21 18:59 06:59 18:59 Intake Total 358 100 Balance 358 100 Intake: Oral 358 100 Other: Voiding Method Bedside Commode # Voids 2 1 # Bowel Movements 1 - Exam In general patient is alert and oriented x 3 in no distress HEENT head normocephalic and atraumatic Neck is supple no JVD no goiter no lymphadenopathy no carotid bruit Chest examination is clear to auscultation no crackles no wheezing Cardiac exam reveals regular heart sounds S1 and S2 no gallops no murmurs Abdomen is soft nontender no organomegaly with normal bowel sounds Extremity exam reveals no edema no cyanosis or clubbing Neurological examination reveals patient is alert and oriented 3 in no distress There is minimal weakness in the right lower extremity as compared to the left, patient also has some minimal weakness in the right upper extremity, it's not clear whether this is acute or chronic related to her post polio syndrome - Labs CBC & Chem 7: 05/19/21 06:57 05/19/21 06:57 Labs: Abnormal Lab Results - Last 24 Hours (Table) 05/19/21 05/19/21 05/19/21 Range/Units 06:57 12:08 17:24 BUN/Creatinine Ratio 21.86 H (12.00-20.00) Ratio POC Glucose (mg/dL) 111 H 200 H (75-99) mg/dL 05/19/21 05/20/21 Range/Units 20:47 07:02 BUN/Creatinine Ratio (12.00-20.00) Ratio POC Glucose (mg/dL) 236 H 275 H (75-99) mg/dL Assessment and Plan Plan: Severe pain in the right hip and right thigh Acute weakness per patient in the right lower extremity started while in the emergency room Underlying history of degenerative disc disease with history of lumbar laminectomy and stimulator placement for pain management Underlying history of insulin-dependent diabetes mellitus Underlying history of hypertension Underlying history of hyperlipidemia Underlying history of postpolio syndrome Neurology and orthopedic services are following Patient has been started on IV steroids CT myelogram has been ordered PT OT service is consulted For DVT prophylaxis will start subcu Lovenox Venous Doppler negative for DVT Will follow closely
[2021-05-20 12:40] LABS: Glucose,Whole Blood 344 mg/dL (75-99)
--- NOTE | 2021-05-20 13:24 | CT ---
EXAMINATION TYPE: CT lumbar myelogram DATE OF EXAM: 05/20/2021 COMPARISON: 05/18/2021 HISTORY: 65-year-old female back pain and right lower extremity weakness TECHNIQUE: Contiguous axial scanning of the lumbar spine performed after intrathecal administration o f 12 mL Isovue-M 200 contrast. Please refer to myelogram injection report of the same day for further details. Coronal/sagittal reconstructions performed. CT DLP: 1851.8 mGycm Automated exposure control for dose reduction was used. FINDINGS: Satisfactory contrast opacification of the thecal sac. Conus medullaris is satisfactory. Gentle levoconvex curvature of the lumbar spine. Redemonstrated is advanced degenerative disc disease L4-L5 with inferior L4 endplate remodeling. Grad e 2 anterolisthesis here secondary to severe hypertrophic facet arthropathy. Subtle bilateral L4 pars defects are also visualized. The anterolisthesis results in deformity of the thecal sac with mild overall canal narrowing at this level but with severe bilateral neuroforaminal stenosis. Mild multilevel degenerative disc disease elsewhere in the lumbar spine. Prominent ligamentum flavum thickening at L2-L3. At L2-L3, there is prominent ligamentum flavum thickening and bulging disc. This results in a focal s evere spinal canal stenosis with moderate bilateral neuroforaminal stenosis. In addition, at this level, there is a superimposed right paracentral disc extrusion with inferior mi gration of disc material and a sequestered disc fragment measuring 2.2 cm craniocaudal by 0.8 cm AP b y 1.1 cm wide occupying the right lateral recess opposite L3. This impinges the traversing right-sided nerve roots at this level. In addition, there is focal sever e spinal canal stenosis at L2-L3 and moderate bilateral neuroforaminal stenosis. On the left, there is additional moderate neural foraminal stenosis at L3-L4 and mild to moderate at T12-L1. On the right, there is additional moderate neural foraminal stenosis at L3-L4. Moderate stool burden. Mild scattered diverticular change. No pericolonic inflammatory change. Bilateral renal calculi, proximal and 3 and the left kidney, largest measuring 5 mm. 3 also within th e right kidney, largest measuring 4 mm. There are moderate prostatic calcifications infrarenal abdomi nal aorta and common iliac arteries. Generator device left posterior lower back subcutaneous tissues with stimulator leads entering the T1 1-T12 interlaminar space and extending up beyond the [id number] within the dorsal aspect of the sp inal canal. IMPRESSION: 1. MODERATE DEGENERATIVE DISC DISEASE ASSOCIATED WITH DISC BULGE AND LIGAMENTUM FLAVUM THICKENING AT L2-L3 RESULTS IN A FOCAL SEVERE SPINAL CANAL STENOSIS WITH MODERATE BILATERAL NEUROFORAMINAL STENOSIS . 2. HOWEVER, IN ADDITION, THERE IS A SUPERIMPOSED RIGHT PARACENTRAL DISC EXTRUSION AT L2-L3 WITH INFER IOR MIGRATION OF DISC MATERIAL. THIS SEQUESTERED DISC FRAGMENT MEASURES 2.2 X 0.8 X 1.1 CM, OCCUPYING THE RIGHT LATERAL RECESS HERE OPPOSITE L3 RESULTING IN LATERAL RECESS STENOSIS. 3. KNOWN GRADE 2 ANTEROLISTHESIS AT L4-L5 WITH SEVERE DEGENERATIVE DISC DISEASE. CONCURRENT BILATERAL L4 PARS DEFECTS ARE NOTED. MILD OVERALL SPINAL CANAL NARROWING AT THIS LEVEL WITH SEVERE BILATERAL N EURAL FORAMINAL STENOSIS. 4. ADDITIONAL MODERATE NEUROFORAMINAL STENOSIS ON BOTH SIDES AT L3-L4.
--- NOTE | 2021-05-20 14:36 | P.PN ---
Subjective Progress Note Date: 05/20/21 The patient states she notices some improvement in the right lower extremity strength but continues to have weakness and pain. Objective - Vital Signs Vital signs: Vital Signs Temp 97.9 F 05/20/21 12:48 Pulse 83 05/20/21 13:12 Resp 16 05/20/21 13:12 BP 119/56 05/20/21 13:12 Pulse Ox 88 L 05/20/21 13:12 Intake & Output 05/19/21 05/20/21 05/20/21 18:59 06:59 18:59 Intake Total 358 218 Balance 358 218 Intake: Oral 358 218 Other: Voiding Method Bedside Commode # Voids 2 1 2 # Bowel Movements 1 - Labs CBC & Chem 7: 05/19/21 06:57 05/19/21 06:57 Labs: Abnormal Lab Results - Last 24 Hours (Table) 05/19/21 05/19/21 05/20/21 Range/Units 17:24 20:47 07:02 POC Glucose (mg/dL) 200 H 236 H 275 H (75-99) mg/dL 05/20/21 Range/Units 12:38 POC Glucose (mg/dL) 344 H (75-99) mg/dL Assessment and Plan Assessment: Acute right hip pain/back pain with weakness over right lower extremity (hip and knee but normal ankle) and numbness: Rule out plexopathy or lumbosacral radiculopathy Lumbar spondylosis (L4-L5) Very low normal Vitamin B12 266. 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 Continue vitamin B12 1000mcg IM for 1 day and after that by mouth. Hemoglobin A1c is 7.1. Will defer management of Diabetes to primary team. Consulted Orthopedic team. She has a pain stimulator and is non-MRI compatible. Orthopedic team ordered CT myelogram. Recommend getting repeat EMG with [facility] as outpatient (her last one was at [facility] in 2017) and was told her right sided weakness was due to "Post- Polio Syndrome). Consulted physical therapy and occupation therapy Every 4 hours neuro checks Will defer the rest of medical management to the primary team. Upon discharge, the patient needs to follow-up with her neurologist (Dr. Redmond) within 1-2 weeks. The plan is discussed with the patient and her nurse. Will follow-up with patient sporadically. Mani Avila M.D. Neuro-Hospitalist Time with Patient: Less than 30
--- NOTE | 2021-05-20 14:56 | P.PN ---
Subjective Progress Note Date: 05/20/21 Principal diagnosis: Right lower extremity weakness Patient was seen at bedside early this afternoon resting comfortably lying supine. Patient says she still having weakness in the right leg. However, since yesterday patient says there has been some easing of her symptoms. Candice kaufman states mostly time she does have pain in the right gluteal region that radiates down the right leg. Currently patient does not have any radiation of pain down to her right foot. Patient denies saddle anesthesia, loss of bowel/bladder control, chest pain, fever, shortness breath, vomiting, change in vision. Objective - Vital Signs Vital signs: Vital Signs Temp 97.9 F 05/20/21 12:48 Pulse 83 05/20/21 13:12 Resp 16 05/20/21 13:12 BP 119/56 05/20/21 13:12 Pulse Ox 88 L 05/20/21 13:12 Intake & Output 05/19/21 05/20/21 05/20/21 18:59 06:59 18:59 Intake Total 358 218 Balance 358 218 Intake: Oral 358 218 Other: Voiding Method Bedside Commode # Voids 2 1 2 # Bowel Movements 1 - Exam Inspection: Negative for any open fractures, significant ecchymosis, erythema, nodules. Scar present along the lumbar spine. Sensation: Sensation is equal, symmetric, bilateral intact throughout the upper and lower extremities Palpation: Moderate tenderness patient along the right SI joint region. Nontender to palpation throughout rest exam Range of motion: Limited range of motion in right leg and right hip flexion and right knee flexion. Bilateral upper extremities full range of motion and left lower extremities full range of motion Motor: 3+/5 in resisted right hip flexion and right knee flexion/extension. 4+/5 in all other major motor groups Neurovascular status: Capillary refill under 3 seconds bilaterally in digits of the hands. Radial pulses intact, 2+ bilaterally. DP pulses intact, bilaterally Special tests: Negative Ottoniel's bilaterally; negative Homans bilaterally; negative clonus bilaterally - Labs CBC & Chem 7: 05/19/21 06:57 05/19/21 06:57 Labs: Abnormal Lab Results - Last 24 Hours (Table) 05/19/21 05/19/21 05/20/21 Range/Units 17:24 20:47 07:02 POC Glucose (mg/dL) 200 H 236 H 275 H (75-99) mg/dL 05/20/21 Range/Units 12:38 POC Glucose (mg/dL) 344 H (75-99) mg/dL Assessment and Plan Assessment: Chronic low back pain Right lower extremity radiculopathy Right lower extremity weakness Multilevel lumbar spondylosis Severe spondylosis L4-L5 with spondylolisthesis Plan: 1. Chronic low back pain; RLE radiculopathy; RLE weakness; Multilevel lumbar spondylosis; Severe spondylosis L4-L5 with spondylolisthesis - will await r esults of CT myelogram before any further potential orthopedic surgical intervention. At this time we do not recommend any emergent orthopedic surgical intervention. We will continue to follow patient while in hospital. 2. Multiple medical comorbidities 3. Appreciate medical management 4. Pain management - Oxycodone; Gabapentin 5. DVT prophylaxis - Lovenox 6. GI prophylaxis - Protonix 7. PT/OT - WBAT w/walker Time with Patient: Less than 30
--- NOTE | 2021-05-20 15:24 | P.PN ---
Progress Note - Text Progress Note Date: 05/20/21 CT myelogram is reviewed. Pt has multiple levels of issue from L2-S1. She has Severe stenosis at L2-3 and L3-4 with spondylosis as well as facet arthropathy. She has what appears to be a large disc extrusion at L2-3 which has tracked caudal causing severe foraminal and central stenosis. She also has Grade II spondylolisthesis of L4-5 which is chronic in nature, howevere there is moderate to severe foraminal stenosis related to this. There is also spondylosis L5-S1 with severe disc dessication as well as height loss, facet arthropathy. There is ligamental and facet hypertrophy through these levels causing varying degrees of lateral recess stenosis as well. Considering these findings as well as her symptoms her options are to continue with conservative measures, or she could consider an ARTURO while in the hospital with PM&R at L2-3. Ultimately, surgical considerations are not out of the question and as likely definitive treatment she would need a decompression and fusion from L2 to S1. We will discuss with the patient what her wishes are.
--- NOTE | 2021-05-20 15:50 | FL ---
EXAMINATION TYPE: FL myelogram lumbosacral DATE OF EXAM: 05/20/2021 COMPARISON: Correlation CT 05/18/2021 HISTORY: 65-year-old female back pain and right lower extremity weakness Informed consent was obtained and all the patient's questions were answered. A timeout was performed . The L4-L5 level was localized under fluoroscopy. Standard sterile technique was utilized as well as appropriate local anesthesia 1% lidocaine. A 5 inch 22-gauge spinal needle was introduced into the thecal sac under fluoroscopic guidance. After clear CSF was visualized, 12 mL's of Isovue M200 was injected. The needle was removed, hemostasis obtained, and dressing placed. The patient tolerated the procedure well and left the department in stable condition. No immediate co mplications. CT myelography is to follow. Postprocedure instructions were provided to the patient by radiology nursing. IMPRESSION: Successful fluoroscopic lumbar myelogram for CT.
[2021-05-20 16:52] LABS: Glucose,Whole Blood 343 mg/dL (75-99)
[2021-05-20 20:28] LABS: Glucose,Whole Blood 326 mg/dL (75-99)
[2021-05-20] MEDS: amLODIPine 10 MG TAB PO SCH (21:03)
[2021-05-20] MEDS: ATORVASTATIN 40 MG TAB PO SCH (21:03)
[2021-05-20] MEDS: DULoxetine HCL 60 MG CAPSULE.DR PO SCH (21:04)
[2021-05-20] MEDS: INSULIN DETEMIR (LEVEMIR) 100 UNIT/ML SYR SQ SCH (21:05)
[2021-05-20] MEDS: MELOXICAM 7.5 MG TAB PO SCH (21:06)
[2021-05-20] MEDS: MONTELUKAST 10 MG TAB PO SCH (21:06)
[2021-05-21] MEDS: DEXAMETHASONE SOD PHOSPHATE 10 MG/ML 1 ML VIAL IVP SCH ×2 (00:22→04:56)
[2021-05-21 07:14] LABS: Glucose,Whole Blood 217 mg/dL (75-99)
[2021-05-21] MEDS: ENOXAPARIN 40 MG/0.4 ML SYRINGE SQ SCH (07:37)
[2021-05-21] MEDS: INSULIN ASPART (NovoLOG) 100 UNIT/ML VIAL SQ SCH ×4 (07:39→21:26)
[2021-05-21] MEDS: CALCIUM CARB-VIT D 500 MG-5 MCG TAB PO SCH ×2 (07:40→07:41)
[2021-05-21] MEDS: CYANOCOBALAMIN 500 MCG TAB PO SCH (07:40)
[2021-05-21] MEDS: CHOLECALCIFEROL 125 MCG (5000 IU) TABLET PO SCH (07:40)
[2021-05-21] MEDS: GABAPENTIN 300 MG CAP PO SCH ×2 (07:41→21:26)
[2021-05-21] MEDS: PANTOPRAZOLE 40 MG TABLET PO SCH (07:41)
[2021-05-21] MEDS: METOPROLOL TARTRATE 50 MG TAB PO SCH ×2 (07:41→21:27)
[2021-05-21] MEDS: lisinopriL 10 MG TAB PO SCH (07:43)
[2021-05-21 07:47] LABS: Basophils % (A) 0 %; Eosinophils % (A) 0 %; HCT 44.5 % (34.0-46.0); HGB 14.6 gm/dL (11.4-16.0); Lymphocytes # (A) 1.2 k/uL (1.0-4.8); Lymphocytes % (A) 7 %; MCH 31.1 pg (25.0-35.0); MCHC 32.8 g/dL (31.0-37.0); MCV 94.8 fL (80.0-100.0); Monocytes # (A) 0.6 k/uL (0-1.0); Monocytes % (A) 3 %; Neutrophils % (A) 89 %; Platelet Count 208 k/uL (150-450); RDW 13.8 % (11.5-15.5); WBC 16.9 k/uL (3.8-10.6)
[2021-05-21] MEDS: oxyCODONE-APAP 10-325MG 1 EACH TAB PO PRN ×2 (07:47→21:27)
[2021-05-21 07:54] LABS: ALT 19 U/L (4-34); AST 17 U/L (14-36); African American GFR (CKD) 82 (>60 ml/min/1.73 sqM); Albumin 4.2 g/dL (3.5-5.0); Albumin/Globulin Ratio 1.3; Alkaline Phosphatase 84 U/L (38-126); Anion Gap 11 mmol/L; Blood Urea Nitrogen 35 mg/dL (7-17); Calcium 10.5 mg/dL (8.4-10.2); Carbon Dioxide 21 mmol/L (22-30); Chloride 104 mmol/L (98-107); Globulin 3.2 g/dL; Glucose 233 mg/dL (74-99); Non-African American GFR(CKD) 71 (>60 ml/min/1.73 sqM); Potassium 4.7 mmol/L (3.5-5.1); Sodium 136 mmol/L (137-145); Total Bilirubin 0.7 mg/dL (0.2-1.3); Total Protein 7.4 g/dL (6.3-8.2)
--- NOTE | 2021-05-21 10:36 | P.PN ---
Subjective Progress Note Date: 05/21/21 Principal diagnosis: low back pain, LE weakness Patient seen and examined today. She is doing fairly well and in good spirits. Her CT myelogram was completed yesterday. She still complains of right lower extremity weakness and pain she denies any bowel or bladder issues. She denies any acute changes at this time. We discussed different treatment options for her today. Objective - Vital Signs Vital signs: Vital Signs Temp 97.7 F 05/21/21 07:49 Pulse 75 05/21/21 07:49 Resp 16 05/21/21 07:49 BP 148/80 05/21/21 07:49 Pulse Ox 94 L 05/21/21 07:49 Intake & Output 05/20/21 05/21/21 05/21/21 18:59 06:59 18:59 Intake Total 1018 118 Balance 1018 118 Intake: Oral 1018 118 Other: Voiding Method Bedside Commode # Voids 2 2 1 # Bowel Movements 1 - Exam Patient is alert and oriented 3 appears well-nourished well-hydrated is in no acute distress. They does not appear septic. On exam the patient has no tenderness to palpation of her thoracic or lumbar spine. There is no edema or ballottement sign. Lower extremities with 5 out of 5 strength in all major muscle groups. She does have some weakness in hip flexion and knee extension on the right-hand side 4+ out of 5. She states it is worse when she stands up and walks but in bed focally deficit is hard to quantify as it feels relatively normal for her parents I discussed and does not feel overt as when she stands. She states she cannot stand or walk for any period of time however due to this. Upper extremities show 5/5 strength in all major muscle groups. There is FROM that is painless of the b/l UE and LE in all major joints. They are intact to light touch sensation in L2 to S1 nerve distribution. Patient has palpable dorsalis pedis was posterior tibial pulses. Compartments are soft and compressible. Patient shows a negative Homans, Ward's, negative Babinski's negative clonus bilaterally. negative straight leg raise bilaterally. No tensioning signs. Cranial nerves II through XII are grossly intact. Overall alignment is well-maintained in the sagittal coronal planes. [] - Constitutional General appearance: Present: cooperative - EENT Eyes: Present: PERRLA - Labs CBC & Chem 7: 05/21/21 06:47 05/21/21 06:47 Labs: Abnormal Lab Results - Last 24 Hours (Table) 05/20/21 05/20/21 05/20/21 Range/Units 12:38 16:51 20:27 WBC (3.8-10.6) k/uL Neutrophils # (1.3-7.7) k/uL Sodium (137-145) mmol/L Carbon Dioxide (22-30) mmol/L BUN (7-17) mg/dL Glucose (74-99) mg/dL POC Glucose (mg/dL) 344 H 343 H 326 H (75-99) mg/dL Calcium (8.4-10.2) mg/dL 05/21/21 05/21/21 05/21/21 Range/Units 06:47 06:47 07:12 WBC 16.9 H (3.8-10.6) k/uL Neutrophils # 15.0 H (1.3-7.7) k/uL Sodium 136 L (137-145) mmol/L Carbon Dioxide 21 L (22-30) mmol/L BUN 35 H (7-17) mg/dL Glucose 233 H (74-99) mg/dL POC Glucose (mg/dL) 217 H (75-99) mg/dL Calcium 10.5 H (8.4-10.2) mg/dL Assessment and Plan Assessment: 65-year-old female low back pain with right lower extremity weakness 1. L2 3 herniated nucleus pulposus with severe stenosis 2. Chronic L4 5 grade 2 spondylolisthesis with bilateral foraminal stenosis 3. Severe spondylosis L2 to S1 4. Varying degrees of foraminal and central stenosis L2 to S1 5. Complex medical patient Plan: -Consultation to PMNR for ARTURO at L2-L3 -Continue with steroids and pain medication and anti-inflammatories PT OT -A discussed at length with the patient different options for treatment. She is elected at this time for an ARTURO at L2-L3. She would like to discuss her treatment options with Dr. Redmond as this is been her long-term managing doctor of her low back. She is amendable to getting an ARTURO inpatient if this is available. I discussed with her surgical options in the form of decompression at L2-L3 versus a larger procedure to address her entire low back as this L2-L3 is not an isolated problem for her. While the L2-L3 seems to be more of a glaring issue at this moment I do feel that overall her low back would be better serviced with a decompression fusion L2 to pelvis. This is due to the instability that she has the large disc herniation the multilevel stenotic features as well as spondylotic features. This would be in attempts of a more comprehensive surgery versus a procedure that may not give her the results that she wants. We discussed this at length including discussion of simply an L2-3 decompression. At this time she would like to try an ARTURO and does not want surgery she would like to discuss her options with her previously treating doctor which is reasonable. She currently has no emergent signs or symptoms she is able to ambulate although with difficulty secondary to weakness and pain she is no bowel or bladder incontinence and no perineal numbness or tingling. I discussed the signs and symptoms with her become worse or she does experience these then we are forced to do more of a urgent or emergent situation she understands this for surgical intervention. We will see how she does with ARTURO.
[2021-05-21 11:29] LABS: Glucose,Whole Blood 394 mg/dL (75-99)
--- NOTE | 2021-05-21 12:52 | P.PN ---
Subjective Progress Note Date: 05/21/21 Shelby Robison, boom is a 65-year-old female who presented to [facility] emergency room with a chief complaint of severe pain in the right hip area radiating to the groin and to the right thigh, she was evaluated in the emergency room, x-ray of the right hip was ordered, patient was maintained down on the x-ray table, and subsequently she felt very weak in her right lower extremity with some numbness in the lower extremity she stated that she was not able to stand or walk anymore she was evaluated again in the emergency room computed tomography scan of the brain was done and did not reveal any acute intracranial bleeding. She was admitted to medical floor neurology consultation was requested. Patient has a known history of degenerative disc disease with history of lumbar laminectomy in 2007 she is maintained on oxycodone at home, she also has a known history of post polio syndrome, history of hypertension, hyperlipidemia, osteoarthritis, and insulin-dependent diabetes mellitus. On 05/19/2021 patient is alert and oriented 3. Patient still having significant pain and weakness to right leg. Orthopedic and neurology services are following. patient denies chest pain or shortness breath. Patient denies nausea vomiting or diarrhea. Patient denies any urinary burning or frequency On 05/20/2021 patient is alert and oriented 3 currently working with physical therapy. Patient reports minimum improvement to right leg. Patient has been started on IV steroids per orthopedic services and CT myelogram ordered per orthopedic services. Patient to have test completed today. Patient denies chest pain or shortness of breath. Patient denies nausea vomiting or diarrhea. Patient denies any urinary burning or frequency On 05/21/2021 patient is alert and oriented 3 patient was seen and examined on the medical floor she is still complaining of back pain radiating to the lower extremities otherwise she denies any complaints at this time there is no fever or chills no headache or dizziness no chest pain no shortness of breath no cough no nausea or vomiting no abdominal pain no diarrhea no blood in the stools no burning with urination no frequency or urgency no hematuria patient was evaluated by neurosurgery, anesthesia were consulted for possible epidural injections Objective - Vital Signs Vital signs: Vital Signs Temp 97.7 F 05/21/21 07:49 Pulse 75 05/21/21 07:49 Resp 16 05/21/21 07:49 BP 148/80 05/21/21 07:49 Pulse Ox 94 L 05/21/21 07:49 Intake & Output 05/20/21 05/21/21 05/21/21 18:59 06:59 18:59 Intake Total 1018 118 Balance 1018 118 Intake: Oral 1018 118 Other: Voiding Method Bedside Commode # Voids 2 2 1 # Bowel Movements 1 - Exam In general patient is alert and oriented x 3 in no distress HEENT head normocephalic and atraumatic Neck is supple no JVD no goiter no lymphadenopathy no carotid bruit Chest examination is clear to auscultation no crackles no wheezing Cardiac exam reveals regular heart sounds S1 and S2 no gallops no murmurs Abdomen is soft nontender no organomegaly with normal bowel sounds Extremity exam reveals no edema no cyanosis or clubbing Neurological examination reveals patient is alert and oriented 3 in no distress There is minimal weakness in the right lower extremity as compared to the left, patient also has some minimal weakness in the right upper extremity, it's not clear whether this is acute or chronic related to her post polio syndrome - Labs CBC & Chem 7: 05/21/21 06:47 05/21/21 06:47 Labs: Abnormal Lab Results - Last 24 Hours (Table) 05/20/21 05/20/21 05/21/21 Range/Units 16:51 20:27 06:47 WBC 16.9 H (3.8-10.6) k/uL Neutrophils # 15.0 H (1.3-7.7) k/uL Sodium (137-145) mmol/L Carbon Dioxide (22-30) mmol/L BUN (7-17) mg/dL Glucose (74-99) mg/dL POC Glucose (mg/dL) 343 H 326 H (75-99) mg/dL Calcium (8.4-10.2) mg/dL 05/21/21 05/21/21 05/21/21 Range/Units 06:47 07:12 11:28 WBC (3.8-10.6) k/uL Neutrophils # (1.3-7.7) k/uL Sodium 136 L (137-145) mmol/L Carbon Dioxide 21 L (22-30) mmol/L BUN 35 H (7-17) mg/dL Glucose 233 H (74-99) mg/dL POC Glucose (mg/dL) 217 H 394 H (75-99) mg/dL Calcium 10.5 H (8.4-10.2) mg/dL Assessment and Plan Plan: Severe pain in the right hip and right thigh Acute weakness per patient in the right lower extremity started while in the emergency room Underlying history of degenerative disc disease with history of lumbar laminectomy and stimulator placement for pain management Underlying history of insulin-dependent diabetes mellitus Underlying history of hypertension Underlying history of hyperlipidemia Underlying history of postpolio syndrome Neurology and orthopedic services are following Patient has been started on IV steroids CT myelogram has been ordered PT OT service is consulted For DVT prophylaxis will start subcu Lovenox Venous Doppler negative for DVT Will follow closely
--- NOTE | 2021-05-21 12:56 | P.PAINCN ---
History of Present Illness - Reason for Consult Consult date: 05/21/21 - History of Present Illness This 65-year-old female who was admitted to [facility], candidate to severe intractable low back pain with radiation to the right lower extremity associated with some weakness in her right lower extremity, patient had lumbar laminectomy surgery done years ago ,and she was under the care of Dr. Redmond as an outpatient, and patient had a spinal cord stimulator planted several years ago, she's been taking pain medication Percocet 10/325 when necessary, and Neurontin 600 mg twice a day and Mobic 7.5 mg daily at bedtime, patient reported that the current medication is not helping to improve her pain, pain is constant severe interferer the quality of life, there is still the pain is 8/10, she denies any fever, patient also complaining of severe numbness and tingling sensation in the lower extremity bilaterally Past Medical History Past Medical History: Atrial Fibrillation, Coronary Artery Disease (CAD), COPD, Diabetes Mellitus, GERD/Reflux, Hyperlipidemia Additional Past Medical History / Comment(s): post polio syndrome, neuropathy, hx. spontaneous pneumothorax, recent diarrhea History of Any Multi-Drug Resistant Organisms: C-DIFF Year Discovered:: 2013 MDRO Source:: stool Past Surgical History: Back Surgery, Bowel Resection, Cholecystectomy, Coronary Bypass/CABG, Ear Surgery, Tonsillectomy Additional Past Surgical History / Comment(s): triple bypass 2013, left salpingo-oophorectomy Past Anesthesia/Blood Transfusion Reactions: No Reported Reaction Past Psychological History: No Psychological Hx Reported Smoking Status: Former smoker Past Alcohol Use History: None Reported Additional Past Alcohol Use History / Comment(s): quit smoking 2008, 1ppd since age of 15 Past Drug Use History: None Reported - Past Family History Mother Family Medical History: Cancer Medications and Allergies Home Medications Medication Instructions Recorded Confirmed Type Atorvastatin [Lipitor] 40 mg PO HS 03/23/16 05/18/21 History DULoxetine HCL [Cymbalta] 60 mg PO HS 03/23/16 05/18/21 History Metoprolol Tartrate [Lopressor] 50 mg PO BID 03/23/16 05/18/21 History Omeprazole [PriLOSEC] 20 mg PO DAILY 03/23/16 05/18/21 History Calcium Carbonate [Calcium] 600 mg PO DAILY 05/18/21 05/18/21 History Celecoxib [CeleBREX] 200 mg PO HS 05/18/21 05/18/21 History Cholecalciferol (Vitamin D3) 125 mcg PO DAILY 05/18/21 05/18/21 History [Vitamin D3 (125 MCG = 5,000 IU)] Gabapentin 600 mg PO BID 05/18/21 05/18/21 History Insulin Glargine,Hum.rec.anlog 40 unit SQ HS 05/18/21 05/18/21 History [Lantus Solostar Pen] Lisinopril [Prinivil] 10 mg PO DAILY 05/18/21 05/18/21 History Montelukast [Singulair] 10 mg PO HS 05/18/21 05/18/21 History Ubidecarenone [Co Q-10] 100 mg PO DAILY 05/18/21 05/18/21 History amLODIPine [Norvasc] 10 mg PO HS 05/18/21 05/18/21 History oxyCODONE HCL [oxyCODONE HCL (IR)] 10 mg PO DAILY PRN 05/18/21 05/18/21 History oxyCODONE HCL [oxyCODONE HCL (IR)] 10 mg PO HS 05/18/21 05/18/21 History Allergies Allergy/AdvReac Type Severity Reaction Status Date / Time Sulfa (Sulfonamide Allergy Rash/Hives Verified 05/18/21 09:35 Antibiotics) Physical Exam Vitals: Vital Signs Temp Pulse Pulse Resp BP BP Pulse Ox 05/21/21 07:49 97.7 F 75 16 148/80 94 L 05/21/21 07:47 68 05/21/21 01:27 86 82 20 05/21/21 01:11 97.9 F 68 20 104/48 94 L 05/20/21 21:04 86 82 20 05/20/21 19:14 98.1 F 82 20 128/53 96 05/20/21 15:41 75 110/57 95 05/20/21 14:41 82 95/56 94 L 05/20/21 14:11 81 95/55 93 L 05/20/21 13:41 82 99/56 93 L 05/20/21 13:26 90 116/63 94 L 05/20/21 13:12 83 16 119/56 88 L 05/20/21 13:00 81 16 114/56 93 L Intake and Output 05/20/21 05/21/21 05/21/21 22:59 06:59 14:59 Intake Total 800 118 Balance 800 118 Intake: Oral 800 118 Other: Voiding Method Bedside Commode Bedside Commode # Voids 1 2 1 # Bowel Movements 1 Physical Examinations : -Constitutiona : Cooperative , not in acute distress . -HEENT : nech : supple , no Lymphadenopathy , normal thyroid size . : eyes : no ptosis , no icterus, no photophobia . - neurologic : Cranial nerve II to XII intact , no focal neurological deffecit . -psychatric : alert , oriented X 3 , appropriate affect , intact judgment and insight . -Lymphatic : no Lymphadenopathy . - musculoskeltal : Lumber spine moter stegnth lower extremities ,thigh and legs 3/5 Right side , 4-5/5 Left side lumber facet Loading Test =positive Right , positive Left Range of motion of the lumbar spine Flexion 30 degrees, extension 10 degrees strait leg raising test = positive at degree Fabere test= positive Right , and positive LT . tenderness over the Sacroiliac joint on the Right . Results CBC & Chem 7: 05/21/21 06:47 05/21/21 06:47 Labs: Abnormal Lab Results - Last 24 Hours (Table) 05/20/21 05/20/21 05/21/21 Range/Units 16:51 20:27 06:47 WBC 16.9 H (3.8-10.6) k/uL Neutrophils # 15.0 H (1.3-7.7) k/uL Sodium (137-145) mmol/L Carbon Dioxide (22-30) mmol/L BUN (7-17) mg/dL Glucose (74-99) mg/dL POC Glucose (mg/dL) 343 H 326 H (75-99) mg/dL Calcium (8.4-10.2) mg/dL 05/21/21 05/21/21 05/21/21 Range/Units 06:47 07:12 11:28 WBC (3.8-10.6) k/uL Neutrophils # (1.3-7.7) k/uL Sodium 136 L (137-145) mmol/L Carbon Dioxide 21 L (22-30) mmol/L BUN 35 H (7-17) mg/dL Glucose 233 H (74-99) mg/dL POC Glucose (mg/dL) 217 H 394 H (75-99) mg/dL Calcium 10.5 H (8.4-10.2) mg/dL Comments: Computed tomography scan of the lumbar spine = L2-3 disc herniation and spinal stenosis spondylolisthesis Assessment and Plan Plan: Assessment and plan=1-lumbar herniated disc disease at L2-3 levels. 2-lumbar spinal stenosis. 3-lumbar radiculopathy. 4-lumbar spondylolisthesis. 5-failed back surgery syndrome lumbar area. 6-lumbar degenerative disc disease Patient could benefit from lumbar epidural steroid injection at L2-3 levels Time with Patient: Less than 30 PQRS Measure Charge Sheet - Pain Location Right Back Non-Pharmacological Interventions: Emotional/Spiritual Support Pharmacological Interventions: PRN Medication Pain Comment: see MAR PQRS Narrative: Smoking Status Former smoker Do You Want the Pneumonia Vaccine Up to Date Vaccine AT THIS TIME? Blood Pressure [Left Arm] 148/80 Blood Pressure [Right Arm] 104/48 Blood Pressure 124/70 Pain Intensity [Right Back] 0 Pain Intensity 8 Pain Scale Used Numeric (1 - 10) Scale Used Numeric (1 - 10) Home Medications: Ambulatory Orders Atorvastatin [Lipitor] 40 mg PO HS 03/23/16 DULoxetine HCL [Cymbalta] 60 mg PO HS 03/23/16 Metoprolol Tartrate [Lopressor] 50 mg PO BID 03/23/16 Omeprazole [PriLOSEC] 20 mg PO DAILY 03/23/16 Calcium Carbonate [Calcium] 600 mg PO DAILY 05/18/21 Celecoxib [CeleBREX] 200 mg PO HS 05/18/21 Cholecalciferol (Vitamin D3) [Vitamin D3 (125 MCG = 5,000 IU)] 125 mcg PO DAILY 05/18/21 Gabapentin 600 mg PO BID 05/18/21 Insulin Glargine,Hum.rec.anlog [Lantus Solostar Pen] 40 unit SQ HS 05/18/21 Lisinopril [Prinivil] 10 mg PO DAILY 05/18/21 Montelukast [Singulair] 10 mg PO HS 05/18/21 Ubidecarenone [Co Q-10] 100 mg PO DAILY 05/18/21 amLODIPine [Norvasc] 10 mg PO HS 05/18/21 oxyCODONE HCL [oxyCODONE HCL (IR)] 10 mg PO DAILY PRN 05/18/21 oxyCODONE HCL [oxyCODONE HCL (IR)] 10 mg PO 05/18/21
[2021-05-21] MEDS ORDERED: LACTATED RINGERS 1,000 ML IV ONE ×2 (13:04)
[2021-05-21 13:06] LABS: Glucose,Whole Blood 266 mg/dL (75-99)
--- NOTE | 2021-05-21 13:28 | P.PCN ---
Date of Procedure: 05/21/21 Procedure(s) Performed: PREOPERATIVE DIAGNOSIS: 1- Lumbar Degenerative Disc Diseases 2-Lumbar spondylosis with Facet arthropathy without myelopathy 3-lumbar herniated disc disease. 4-lumbar spinal stenosis. 5-lumbar radiculopathy. 6-failed back surgery syndrome and lumbar area POSTOPERATIVE DIAGNOSIS: Same as preop diagnosis. PROCEDURE 1. Lumbar epidural steroid injection under fluoroscopic guidance at the L3-4 level. (Fluoroscopy imaging was available in radiology department) 2. Lumbar epidurogram. ANESTHESIA: Local with 1% lidocaine 3 ml and , moderate sedation with intravenous Versed 2 mg ,and fentanyle 50 Mcg EBL: Minimal PROCEDURE INDICATION: The patient with low back pain and radiculitis symptoms unresponsive to conservative treatment. Fluoroscopy was used to optimize visualization of the needle placement and to maximize safety. PROCEDURE DESCRIPTION / TECHNIQUE: The patient was seen and identified in the preoperative area. Risks, benefits, complications including but not limited to infections ,bleeding ,allergic reaction to the medications ,nerve damage and not complete pain releife , and alternatives were discussed with the patient. The patient agreed to proceed with the procedure and signed the consent. IV was started, and vital signs were stable. Patient was taken to the OR and time out was completed. The patient was placed in the prone position on procedure table and a pillow was placed under the abdomen to reduce lumbar lordosis. The lumbosacral area was prepped and draped in the usual sterile fashion.ere closely monitored during the procedure. Conscious sedation was used during the procedure to decrease patients anxiety. Vital signs was monitered during the entire procedure. Using anterior-posterior fluoroscopy, the L3-4 interlaminar space was identified and the skin over this site was marked and then infiltrated with 1% lidocaine subcutaneously. Subsequently, a 20-gauge Tuohy epidural needle was inserted and advanced toward the epidural space using the ``Loss of resistance technique and guided by AP and lateral fluoroscopy. The correct needle position in the epidural space was verified with the injection of 2 mL of the water soluble contrast dye Isovue 200 contrast and observing an excellent epidurogram with the epidural spread of the dye, after negative aspiration for blood and CSF and in the absence of paresthesias. Again after negative aspiration, a 6 ml mixture containing 40 mg of Depo-medrol , and 2 ml of preservative free Normal Saline, and 2 ml of preservative free lidocaine 1% solution was injected and a washout of epidurogram was seen. Needle was withdrawn intact, skin was cleansed, and bandages were applied. COMPLICATIONS: None DISPOSITION / PLANS: The patient was placed in a supine position and transferred to the recovery area in a stable condition for observation. There was no evidence of lower extremity motor or sensory deficit after the procedure. Patient was discharged from the recovery room after meeting discharge criteria. Home discharge instructions were given to the patient by the staff. note= the plan was to do the lumbar epidural steroid injection at L2-3 level , but under fluoroscopy guidance so that the patient had the stimulator wires,was anchored at L2-3 level ,and for this reason she chose to do the procedure at L3 4
[2021-05-21] MEDS: DEXAMETHASONE SOD PHOSPHATE 4 MG/ML 1 ML VIAL IVP SCH ×2 (14:02→17:36)
--- NOTE | 2021-05-21 14:09 | FL ---
EXAMINATION TYPE: FL guided pain mgmt statistic DATE OF EXAM: 05/21/2021 CLINICAL HISTORY: Mid back pain. TECHNIQUE: Fluoroscopy. COMPARISON: None. FINDINGS: Fluoroscopic guidance was provided during pain relief procedure performed by Dr. Hong . A total of 14 seconds of fluoroscopic time was utilized during the procedure and 1 spot images are acquired. Single image acquired shows needle localization overlying thoracic spine. IMPRESSION: As Above.
[2021-05-21 17:08] LABS: Glucose,Whole Blood 275 mg/dL (75-99)
[2021-05-21 20:35] LABS: Glucose,Whole Blood 278 mg/dL (75-99)
[2021-05-21] MEDS: MELOXICAM 7.5 MG TAB PO SCH (21:26)
[2021-05-21] MEDS: INSULIN DETEMIR (LEVEMIR) 100 UNIT/ML SYR SQ SCH (21:26)
[2021-05-21] MEDS: ATORVASTATIN 40 MG TAB PO SCH (21:26)
[2021-05-21] MEDS: amLODIPine 10 MG TAB PO SCH (21:26)
[2021-05-21] MEDS: DULoxetine HCL 60 MG CAPSULE.DR PO SCH (21:26)
[2021-05-21] MEDS: MONTELUKAST 10 MG TAB PO SCH (21:27)
[2021-05-22] MEDS: DEXAMETHASONE SOD PHOSPHATE 4 MG/ML 1 ML VIAL IVP SCH ×3 (00:23→13:04)
[2021-05-22 04:15] VITALS: RESP 16
[2021-05-22 07:19] LABS: Glucose,Whole Blood 259 mg/dL (75-99)
[2021-05-22 07:24] VITALS: BP 115/52; PULSE 68; TEMP 97.8
--- NOTE | 2021-05-22 09:24 | P.PN ---
Subjective Progress Note Date: 05/22/21 Principal diagnosis: low back pain, LE weakness Patient seen and examined this morning. She is doing mildly better from her injection however she still having right lower extremity issues and weakness. She has not been up yet today. She denies any bowel or bladder issues denies any perineal numbness or tingling denies any other symptoms at this time. No new issues. Objective - Vital Signs Vital signs: Vital Signs Temp 97.8 F 05/22/21 07:23 Pulse 68 05/22/21 07:23 Resp 16 05/22/21 07:23 BP 115/52 05/22/21 07:23 Pulse Ox 95 05/22/21 07:23 Intake & Output 05/21/21 05/22/21 05/22/21 18:59 06:59 18:59 Intake Total 918 118 Output Total 200 Balance 918 -200 118 Intake: IV 50 Oral 868 118 Output: Urine 200 Other: Voiding Method Bedside Commode # Voids 1 2 # Bowel Movements 1 1 - Exam Exam repeated today at noted as below no significant changes Patient is alert and oriented 3 appears well-nourished well-hydrated is in no acute distress. They does not appear septic. On exam the patient has no tenderness to palpation of her thoracic or lumbar spine. There is no edema or ballottement sign. Lower extremities with 5 out of 5 strength in all major muscle groups. She does have some weakness in hip flexion and knee extension on the right-hand side 4+ out of 5. She states it is worse when she stands up and walks but in bed focally deficit is hard to quantify as it feels relatively normal for her parents I discussed and does not feel overt as when she stands. She states she cannot stand or walk for any period of time however due to this. Upper extremities show 5/5 strength in all major muscle groups. There is FROM that is painless of the b/l UE and LE in all major joints. They are intact to light touch sensation in L2 to S1 nerve distribution. Patient has palpable dorsalis pedis was posterior tibial pulses. Compartments are soft and compressible. Patient shows a negative Homans, Ward's, negative Babinski's negative clonus bilaterally. negative straight leg raise bilaterally. No tensioning signs. Cranial nerves II through XII are grossly intact. Overall alignment is well-maintained in the sagittal coronal planes. [] - Labs CBC & Chem 7: 05/21/21 06:47 05/21/21 06:47 Labs: Abnormal Lab Results - Last 24 Hours (Table) 05/21/21 05/21/21 05/21/21 Range/Units 11:28 13:02 17:06 POC Glucose (mg/dL) 394 H 266 H 275 H (75-99) mg/dL 05/21/21 05/22/21 Range/Units 20:32 07:14 POC Glucose (mg/dL) 278 H 259 H (75-99) mg/dL Assessment and Plan Assessment: 65-year-old female low back pain with right lower extremity weakness status post ARTURO 1. L2 3 herniated nucleus pulposus with severe stenosis 2. Chronic L4 5 grade 2 spondylolisthesis with bilateral foraminal stenosis 3. Severe spondylosis L2 to S1 4. Varying degrees of foraminal and central stenosis L2 to S1 5. Complex medical patient Plan: -Continue conservative measures -Per patient request will attempt contact Dr. Redmond to discuss the case with him as she would like him informed on her condition. She does feel that she wants surgery and would like to potentially schedule this for next week. -A discussed at length again with the patient different options for treatment. I discussed with her surgical options in the form of decompression at L2-L3 versus a larger procedure to address her entire low back as this L2-L3 is not an isolated problem for her. While the L2-L3 seems to be more of a glaring issue at this moment I do feel that overall her low back would be better serviced with a decompression fusion L2 to pelvis. This is due to the instability that she has the large disc herniation the multilevel stenotic features as well as spondylotic features. This would be in attempts of a more comprehensive surgery versus a procedure that may not give her the results that she wants. We discussed this at length including discussion of simply an L2-3 decompression. She states today that she is amendable to surgical considerations. She currently has no emergent signs or symptoms she is able to ambulate although with difficulty secondary to weakness and pain she is no bowel or bladder incontinence and no perineal numbness or tingling. I discussed the signs and symptoms with her become worse or she does experience these then we are forced to do more of a urgent or emergent situation she understands this for surgical intervention. We can discuss further surgical intervention. It could be during this hospital stay as she is likely optimized for surgery at this point. She was ammendable to this, however it cannot be until next week due to scheduling. She understands and is comfortable with this.
[2021-05-22] MEDS: oxyCODONE-APAP 10-325MG 1 EACH TAB PO PRN (09:47)
[2021-05-22] MEDS: CYANOCOBALAMIN 500 MCG TAB PO SCH (09:48)
[2021-05-22] MEDS: GABAPENTIN 300 MG CAP PO SCH (09:48)
[2021-05-22] MEDS: PANTOPRAZOLE 40 MG TABLET PO SCH (09:48)
[2021-05-22] MEDS: lisinopriL 10 MG TAB PO SCH (09:49)
[2021-05-22] MEDS: INSULIN ASPART (NovoLOG) 100 UNIT/ML VIAL SQ SCH ×2 (09:49→13:05)
[2021-05-22] MEDS: METOPROLOL TARTRATE 50 MG TAB PO SCH (09:49)
[2021-05-22] MEDS: ENOXAPARIN 40 MG/0.4 ML SYRINGE SQ SCH (09:49)
--- NOTE | 2021-05-22 10:09 | P.DS ---
Providers Date of admission: 05/21/21 07:54 Expected date of discharge: 05/22/21 Attending physician: Caro Maddox Consults: 05/18/21 11:39 Consult Physician Urgent Consulting Provider: Mani Avila Consult Reason/Comments: new right leg weakness Do you want consulting provider notified?: Yes 05/18/21 16:52 Consult Physician Urgent Consulting Provider: Jt Dunn Consult Reason/Comments: low back pain and right hip pain with leg weakness Do you want consulting provider notified?: Yes 05/20/21 16:07 Consult Physician Routine Consulting Provider: Jt Dunn Consult Reason/Comments: back pain, leg weakness Do you want consulting provider notified?: Yes 05/21/21 09:50 Consult Physician Urgent Consulting Provider: Molly Hong Consult Reason/Comments: L2-3 ARTURO Do you want consulting provider notified?: Yes Primary care physician: Serina Leblanc [facility] Course: Discharge diagnosis Severe pain in the right hip and right thigh Acute weakness per patient in the right lower extremity started while in the emergency room Underlying history of degenerative disc disease with history of lumbar laminectomy and stimulator placement for pain management Underlying history of insulin-dependent diabetes mellitus Underlying history of hypertension Underlying history of hyperlipidemia Underlying history of postpolio syndrome Hospital course Shelby Robison, boom is a 65-year-old female who presented to [facility] emergency room with a chief complaint of severe pain in the right hip area radiating to the groin and to the right thigh, she was evaluated in the emergency room, x-ray of the right hip was ordered, patient was maintained down on the x-ray table, and subsequently she felt very weak in her right lower extremity with some numbness in the lower extremity she stated that she was not able to stand or walk anymore she was evaluated again in the emergency room co mputed tomography scan of the brain was done and did not reveal any acute intracranial bleeding. She was admitted to medical floor neurology consultation was requested. Patient has a known history of degenerative disc disease with history of lumbar laminectomy in 2007 she is maintained on oxycodone at home, she also has a known history of post polio syndrome, history of hypertension, hyperlipidemia, osteoarthritis, and insulin-dependent diabetes mellitus. On 05/19/2021 patient is alert and oriented 3. Patient still having significant pain and weakness to right leg. Orthopedic and neurology services are following. patient denies chest pain or shortness breath. Patient denies nausea vomiting or diarrhea. Patient denies any urinary burning or frequency On 05/20/2021 patient is alert and oriented 3 currently working with physical therapy. Patient reports minimum improvement to right leg. Patient has been started on IV steroids per orthopedic services and CT myelogram ordered per orthopedic services. Patient to have test completed today. Patient denies chest pain or shortness of breath. Patient denies nausea vomiting or diarrhea. Patient denies any urinary burning or frequency On 05/21/2021 patient is alert and oriented 3 patient was seen and examined on the medical floor she is still complaining of back pain radiating to the lower extremities otherwise she denies any complaints at this time there is no fever or chills no headache or dizziness no chest pain no shortness of breath no cough no nausea or vomiting no abdominal pain no diarrhea no blood in the stools no burning with urination no frequency or urgency no hematuria patient was evaluated by neurosurgery, anesthesia were consulted for possible epidural injections On 05/22/2021 patient is alert and oriented 3. Patient underwent epidural injections yesterday. Patient reports some improvement been very minimal. Plans for outpatient follow-up with patient's neurologist with tentative plans for surgical intervention next week. Patient will be discharged to [facility] facility. Patient has been on IV steroids. We'll discharge patient on steroid taper. This time patient denies chest pain or shortness breath. Patient denies nausea vomiting or diarrhea. Patient denies any urinary burning or frequency Patient Condition at Discharge: Stable Plan - Discharge Summary Discharge Rx Participant: Yes New Discharge Prescriptions: No Action Omeprazole [PriLOSEC] 20 mg PO DAILY DULoxetine HCL [Cymbalta] 60 mg PO HS Atorvastatin [Lipitor] 40 mg PO HS Metoprolol Tartrate [Lopressor] 50 mg PO BID oxyCODONE HCL [oxyCODONE HCL (IR)] 10 mg PO DAILY PRN PRN Reason: Pain Lisinopril [Prinivil] 10 mg PO DAILY Insulin Glargine,Hum.rec.anlog [Lantus Solostar Pen] 40 unit SQ HS Gabapentin 600 mg PO BID Celecoxib [CeleBREX] 200 mg PO HS Ubidecarenone [Co Q-10] 100 mg PO DAILY Cholecalciferol (Vitamin D3) [Vitamin D3 (125 MCG = 5,000 IU)] 125 mcg PO DAILY oxyCODONE HCL [oxyCODONE HCL (IR)] 10 mg PO HS Montelukast [Singulair] 10 mg PO HS amLODIPine [Norvasc] 10 mg PO HS Calcium Carbonate [Calcium] 600 mg PO DAILY Discharge Medication List Atorvastatin [Lipitor] 40 mg PO HS 03/23/16 [History] DULoxetine HCL [Cymbalta] 60 mg PO HS 03/23/16 [History] Metoprolol Tartrate [Lopressor] 50 mg PO BID 03/23/16 [History] Omeprazole [PriLOSEC] 20 mg PO DAILY 03/23/16 [History] Calcium Carbonate [Calcium] 600 mg PO DAILY 05/18/21 [History] Celecoxib [CeleBREX] 200 mg PO HS 05/18/21 [History] Cholecalciferol (Vitamin D3) [Vitamin D3 (125 MCG = 5,000 IU)] 125 mcg PO DAILY 05/18/21 [History] Gabapentin 600 mg PO BID 05/18/21 [History] Insulin Glargine,Hum.rec.anlog [Lantus Solostar Pen] 40 unit SQ HS 05/18/21 [History] Lisinopril [Prinivil] 10 mg PO DAILY 05/18/21 [History] Montelukast [Singulair] 10 mg PO HS 05/18/21 [History] Ubidecarenone [Co Q-10] 100 mg PO DAILY 05/18/21 [History] amLODIPine [Norvasc] 10 mg PO HS 05/18/21 [History] oxyCODONE HCL [oxyCODONE HCL (IR)] 10 mg PO DAILY PRN 05/18/21 [History] oxyCODONE HCL [oxyCODONE HCL (IR)] 10 mg PO HS 05/18/21 [History] Follow up Appointment(s)/Referral(s): Serina Leblanc MD [Primary Care Provider] - 1-2 days [facility], [NON-STAFF] - 1-2 Days Discharge/Stand Alone Forms: [facility] Pain/[facility]mer Instructions, Personal Smalltalk Developer
[2021-05-22 10:19] LABS: Basophils % (A) 0 %; Eosinophils % (A) 0 %; HCT 43.1 % (34.0-46.0); HGB 14.2 gm/dL (11.4-16.0); Lymphocytes # (A) 0.8 k/uL (1.0-4.8); Lymphocytes % (A) 7 %; MCH 31.6 pg (25.0-35.0); MCV 95.7 fL (80.0-100.0); Mean Platelet Volume 7.9; Monocytes # (A) 0.6 k/uL (0-1.0); Monocytes % (A) 5 %; Neutrophils # (A) 10.6 k/uL (1.3-7.7); Neutrophils % (A) 88 %; Platelet Count 212 k/uL (150-450); RBC 4.51 m/uL (3.80-5.40); RDW 13.9 % (11.5-15.5); WBC 12.2 k/uL (3.8-10.6)
[2021-05-22 10:34] LABS: ALT 19 U/L (4-34); AST 19 U/L (14-36); African American GFR (CKD) 88 (>60 ml/min/1.73 sqM); Albumin 3.8 g/dL (3.5-5.0); Albumin/Globulin Ratio 1.2; Alkaline Phosphatase 79 U/L (38-126); Anion Gap 11 mmol/L; Blood Urea Nitrogen 34 mg/dL (7-17); Calcium 9.8 mg/dL (8.4-10.2); Carbon Dioxide 19 mmol/L (22-30); Chloride 103 mmol/L (98-107); Globulin 3.1 g/dL; Glucose 337 mg/dL (74-99); Non-African American GFR(CKD) 77 (>60 ml/min/1.73 sqM); Potassium 4.4 mmol/L (3.5-5.1); Sodium 133 mmol/L (137-145); Total Bilirubin 0.6 mg/dL (0.2-1.3); Total Protein 6.9 g/dL (6.3-8.2)
[2021-05-22 11:49] LABS: Glucose,Whole Blood 223 mg/dL (75-99)
[2021-05-22] MEDS: CHOLECALCIFEROL 125 MCG (5000 IU) TABLET PO SCH (13:10)
[2021-05-26] MEDS ORDERED: methylPREDNISolone ACETATE 40 MG/ML 1 ML VIAL ONE (13:07)
[2021-05-26] MEDS ORDERED: IOPAMIDOL M200 10 ML VIAL ONE (13:07)
[2021-05-26] MEDS ORDERED: fentaNYL (PF) 50 MCG/ML 2 ML AMP ONE (13:07)
[2021-05-26] MEDS ORDERED: MIDAZOLAM 2 MG/2 ML VIAL ONE (13:07)
== END 2021-05-22 13:42 ==
LOC: EC 08:24 → 6NMEDSUR 12:52 → INTOOBSV 05-21 07:54 → OBSVTOIN 05-21 07:54 → UNDODISIN 05-22 13:42
PROVIDERS: ADMIT Internal Medicine; ATTEND Internal Medicine
DX: M51.06 Intervertebral disc disorders with myelopathy, lumbar region (principal); M51.16 Intervertebral disc disorders with radiculopathy, lumbar region; M51.36 Other intervertebral disc degeneration, lumbar region; M25.551 Pain in right hip; M43.16 Spondylolisthesis, lumbar region; G31.89 Other specified degenerative diseases of nervous system; E11.42 Type 2 diabetes mellitus with diabetic polyneuropathy; I10 Essential (primary) hypertension; M48.07 Spinal stenosis, lumbosacral region; G89.29 Other chronic pain; I25.10 Atherosclerotic heart disease of native coronary artery without angina pectoris; J44.9 Chronic obstructive pulmonary disease, unspecified; M46.97 Unspecified inflammatory spondylopathy, lumbosacral region; M19.90 Unspecified osteoarthritis, unspecified site; M48.061 Spinal stenosis, lumbar region without neurogenic claudication; I48.91 Unspecified atrial fibrillation; M47.26 Other spondylosis with radiculopathy, lumbar region; M47.817 Spondylosis without myelopathy or radiculopathy, lumbosacral region; G14 Postpolio syndrome; K21.9 Gastro-esophageal reflux disease without esophagitis; R19.7 Diarrhea, unspecified; E66.9 Obesity, unspecified; Z68.35 Body mass index [BMI] 35.0-35.9, adult; I45.10 Unspecified right bundle-branch block; R00.1 Bradycardia, unspecified; E78.5 Hyperlipidemia, unspecified; Z20.822 Contact with and (suspected) exposure to COVID-19; Z86.12 Personal history of poliomyelitis; Z87.891 Personal history of nicotine dependence; Z87.19 Personal history of other diseases of the digestive system; Z96.82 Presence of neurostimulator; Z95.1 Presence of aortocoronary bypass graft; Z16.24 Resistance to multiple antibiotics; Z79.1 Long term (current) use of non-steroidal anti-inflammatories (NSAID); Z79.891 Long term (current) use of opiate analgesic; Z79.4 Long term (current) use of insulin; Z79.899 Other long term (current) drug therapy; Z90.49 Acquired absence of other specified parts of digestive tract; Z88.2 Allergy status to sulfonamides; Z80.9 Family history of malignant neoplasm, unspecified
CPT/HCPCS: 96376 ×4; 96372 ×2; 96375; 96374; 99285; 36415; 93005; 97530 ×2; 97163; 97535 ×2; 97166; 84439; 80053 ×4; 84443 ×2; 82607; 82746; 84132; 85025 ×4; 85610; 85730; 83036; 87635; 72100; 62304; 73502; 73562; 93971; 72192; 72131; 72132; 70450; 62323; G0378 ×5; J2250; J3420 ×2; J1030; J1100 ×5; J1650 ×2; J3010; J1170; Q9966 ×2; 99152

== ENCOUNTER 2021-06-02 06:35 | Inpatient (IN) | payer MEDICARE ==
--- NOTE | 2021-06-02 06:29 | P.HPOR ---
History of Present Illness H&P Date: 05/27/21 Chief Complaint: LLE weakness, low back pain, radiculopathy Date of :[birth year] Age: 65 year Height: 5'6" Weight: 205 lbs BMI: 33.09 kg/m2 Occupation: Retired VAS: 3 Hand dominance: right CHIEF COMPLAINT: Lumbar pain HISTORY: Xrays brought xrays from outside facility which were reviewed Trauma or injury No Work-Related No Pain description sharp. Location diffuse Activity Modification yes , unable to stand or weightbear at this time. Hand Dominance right DOI: None. DOS: L4-L5 laminectomy done in 2007 TREATMENTS COMPLETED: 6 weeks of PT completed? Yes Did it help? No Physician directed home exercise completed? No, unable to complete due to severity of symptoms. Medications yes List: Hitchins 10/325mg with no relief Alternative interventions Chiropractic: No Massage therapy: No Brace: No Injections No RFA: No SUBJECTIVE: Today Ms. Robison presents to the office for an evaluation of her lumbar spine. She presents to the office on a follow up from the hospital after being admitted on 05/19/2021. Patient woke up on 05/18/2021 with severe lumbar pain with right lower extremity weakness. She denies any injury or trauma to indicate an exact onset of her symptoms. Following her onset she then presented to [facility] after her pain and symptoms have progressively worsened. Since the time of her hospital stay she reports that she has transitioned into a rehabilitation facility and has found no improvements with this. Regarding her symptoms she reports diffuse posterior lumbar pain that extends into her right lower extremity. With this the patient does also report diffuse numbness/tingling about the right lower extremity as well. Due to this she has noticed progressive weakness and has lost most function with regards to the right lower extremity. She is currently unable to complete near all of her daily activities due to her inability to ambulate with the right lower extremity. Her symptoms are exacerbated with any standing, ambulation, and sitting. As for treatments, she has been doing PT in her rehabilitation facility without any improvements. Additionally she reports that she has been unable to complete and home exercises due to the nature of her symptoms and right lower extremity weakness. Patient is currently taking NOrco 10/325mg without any relief. Otherwise she denies any bladder or bowel retentio n/incontinence, no perineal numbness/tingling, and is currently non-ambulatory and using a wheelchair. The patients' past social, medical, family, surgical history, as well as review of systems, have been reviewed. Please refer to the Neurosurgery History and Physical form that has been scanned in to our electronic medical record system. 14 points review of systems completed and as stated in HPI, all other systems reviewed are negative. Review of Systems 14 points review of systems completed and as stated in HPI, all other systems reviewed are negative. All systems: negative Constitutional: Reports as per HPI Past Medical History Past Medical History: Atrial Fibrillation, Coronary Artery Disease (CAD), COPD, Diabetes Mellitus, GERD/Reflux, Hyperlipidemia Additional Past Medical History / Comment(s): post polio syndrome, neuropathy, hx. spontaneous pneumothorax, recent diarrhea, bowel resecction for sepsis/infection History of Any Multi-Drug Resistant Organisms: C-DIFF Date of last positivie culture/infection: 2013 MDRO Source:: stool Past Surgical History: Back Surgery, Bowel Resection, Cholecystectomy, Coronary Bypass/CABG, Ear Surgery, Tonsillectomy Additional Past Surgical History / Comment(s): triple bypass 2013, left salpingo-oophorectomy, laminectomy L4 L5, ear surgery x 3 Past Anesthesia/Blood Transfusion Reactions: No Reported Reaction Smoking Status: Former smoker - Past Family History Mother Family Medical History: Cancer Medications and Allergies Home Medications Medication Instructions Recorded Confirmed Type Atorvastatin [Lipitor] 40 mg PO HS 03/23/16 06/01/21 History DULoxetine HCL [Cymbalta] 60 mg PO HS 03/23/16 06/01/21 History Metoprolol Tartrate [Lopressor] 50 mg PO BID 03/23/16 06/01/21 History Omeprazole [PriLOSEC] 20 mg PO DAILY 03/23/16 06/01/21 History Insulin Glargine,Hum.rec.anlog 40 unit SQ HS 05/18/21 06/01/21 History [Lantus Solostar Pen] Lisinopril [Prinivil] 10 mg PO DAILY 05/18/21 06/01/21 History Montelukast [Singulair] 10 mg PO HS 05/18/21 06/01/21 History Ubidecarenone [Co Q-10] 100 mg PO DAILY 05/18/21 06/01/21 History amLODIPine [Norvasc] 10 mg PO HS 05/18/21 06/01/21 History Cyanocobalamin [Vitamin B-12] 1,000 mcg PO DAILY tab 05/22/21 06/01/21 Rx Gabapentin 600 mg PO BID 3 Days #6 tab 05/22/21 06/01/21 Rx INSULIN ASPART (NovoLOG) [NovoLOG 0 unit SQ ACHS ml 05/22/21 06/01/21 Rx (formulary)] oxyCODONE-APAP 10-325MG [Percocet 1 each PO Q6HR PRN 3 Days #12 tab 05/22/21 06/01/21 Rx 10-325 mg] Cholecalciferol [Vitamin D3 (25 25 mcg PO DAILY 06/01/21 06/01/21 History Mcg = 1000 Iu)] Dexamethasone [Decadron] 4 mg PO DAILY 06/01/21 06/01/21 History Tums(Dose Unknown) 1 tab PO DIRECTED PRN 06/01/21 06/01/21 History Allergies Allergy/AdvReac Type Severity Reaction Status Date / Time morphine Allergy rash,itchin Verified 06/01/21 12:28 g Sulfa (Sulfonamide Allergy Rash/Hives Verified 06/01/21 12:28 Antibiotics) Physical Examination Osteopathic Statement: *. No significant issues noted on an osteopathic structural exam other than those noted in the History and Physical/Consult. PHYSICAL EXAMINATION: General: Awake, alert, appropriate for age, in no acute distress. HEENT: No unusual neck masses around region of lateral neck triangle, thyroid, supraclavicular groove Heart: Regular rate and rhythm, normal S1, S2 and no murmur/gallop. Lungs: Clear to auscultation bilaterally with no use of accessory muscles. Extremities: Skin warm and dry without acute lesions, coloration, temperature, skin intact, no tenderness or erythema Integument: Hairy patches: Absent Dorsal skin dimples: Absent Cafe au lait spots: Absent Surgical incisions: No Palpation: Please see Pain drawing on Intake sheet for further detail. Midline spinal tenderness: Yes, diffuse through lumbar region E6 Paralumbar tenderness: Yes E6 Parathoracic tenderness: No E6 Buttocks tenderness: No E6 Special findings: No POSTURAL and MUSCULO-SKELETAL EVALUATION: Coronal Balance: NEUTRAL Recumbent testing: Patient is able to lay flat on back Sagittal Balance: NEUTRAL Shoulder Profile: LEVEL Pelvic Girdle: LEVEL Neck ROM: UNRESTRICTED Lumbar ROM: SEVERELY RESTRICTED Shoulder ROM: Symmetrical Hip ROM: pt unable to lift right hip against gravity at this time. Knee ROM: limited on the right side Hands: Normal appearance, symmetrical Feet: Normal appearance, Symmetrical VASCULAR STATUS : LEFT RIGHT Wrist Pulses INTACT INTACT Pedal Pulses (Dors. pedis & post.tibialis) INTACT INTACT Color NORMAL NORMAL Edema Absent Absent NEUROLOGIC EXAMINATION: Mental Status:Awake and alert, fully oriented, with normal attention, concentration and memory, and fluent, appropriate speech. Cranial Nerves: I: Olfactory not tested. II: Visual acuity normal, no visual field deficit noted with confrontation. III,IV: Normal pupillary reflexes & intact extraocular movements without nystagmus. V,: Intact symmetrical facial sensation. VII: Intact symmetrical facial motor movement VIII: Hearing intact. IX,X: Intact gag, swallow, & normal voice. XI: Sternocleidomastoid, trapezius function intact. XII: Tongue midline with normal movements. L'hermitte's Sign: Negative / absent Spurling'Sign: Absent bilaterally. Cubital percussion test: Absent bilaterally. Ward-Tinel sign - Carpal region: Absent bilaterally. Straight Leg Raising: unable to raise right leg in order to complete test Crossed straight leg raise: negative O8 MOTOR EXAM (0-5/5, N/T) STRENGTH RIGHT LEFT Shoulder Abd (not part of the BARBER score) 5 5 Elbow Flexors 5 5 Elbow Extensor 5 5 Wrist Dorsiflexors 5 5 Finger Abductor 5 5 Track And Field Coach 5 5 Hip Flexor (Not part of BARBER Motor score) 2 5 Knee Flexor 2 5 Knee Extensor 2 5 Ankle dorsiflexor 4- 5 Ankle plantarflexion 4- 5 Extensor hallucis 4- 5 REFLEXES(0-4/2, NT) RIGHT LEFT Upper Extremities 2 2 Lower Extremities 2 2 Pathological Reflexes RIGHT LEFT Ward's Absent Absent Clonus Absent Absent Babinski Absent Absent # Indicates mechanical impairment Muscle appearance: Symmetrical, without signs of atrophy or dystrophy. Sensory system (0-4, N/T) Test type RU ARIANE RL LL Joint-Position 2 2 2 2 Vibration 2 2 2 2 Pain & LT sense 2 2 2 2 Dermatomal Deficit: None None L2-S1 L4-S1 Gait and Functional Evaluation: Ambulatory aids: Wheelchair Romberg's test: Intact bilaterally Toe heel walk / heel-toe walk intact while maintaining satisfactory balance? No Squatting/straightening w/o assistance to a min of 60 degree knee flexion? No Single leg stance: not intact bilaterally Trendelenburg sign negative bilaterally Hand and finger dexterity intact bilaterally? yes Disdiadochokinesis examination negative bilaterally? yes Results RADIOGRAPHIC STUDIES: XRay taken on 05/27/21 of Lumbar Spine: these images are reviewed again and demonstrated grade 2 L4-L5 spondylolisthesis which is chronic in nature. It does cause foraminal stenosis bilaterally there is severe facet arthrosis throughout the lumbar spine there is severe stenosis L2 through S1. There is sagittal imbalance related to this there is also coronal imbalance related. There is facet arthrosis no fracture dislocations noted. Foraminal stenosis noted. CT scan from of Lumbar Spine: this further delineates the grade 2 spondylolisthesis L4-L5. There is severe disc desiccation L4-L5 as well as L2 through S1. There is severe facet arthrosis L2 through S1. There is no fracture noted. There is pars elongation and likely pars deficit L4-L5. There is facet arthrosis again no lesion or fracture noted. There is some coronal and sagittal deformity related to these findings. CT myelogram of Lumbar Spine: this is reviewed again from the hospital and demonstrates L3-L4 large disc herniation with sequestration severe stenosis centrally as well as foraminally. There is stenosis L2 through S1 secondary to the disc herniation as well as facet arthrosis ligamental hypertrophy and facet hypertrophy.the large sequestered disc herniation is causing severe stenosis there is severe stenosis L2 through S1 there is spondylolisthesis grade 2 for an L5 which is more chronic in nature with severe disc desiccation. There is no fracture or other dislocations noted. Assessment and Plan Assessment: 1. L2-S1 severe stenosis 2.L2-S1 spondylosis 3. right lower extremity weakness 4. right lower extremity radiculopathy 5. L2-3 large HNP with sequestration 6. Mechanical low back pain Plan: Based on my findings I suggest the following course of action: Spine Surgery Risk Review Shelby Robison is presenting for evaluation of lumbar pain with right lower extremity radiculopathy. It was my pleasure to have seen and examined Shelby Robison. In our visit today we have had a chance to go over subjective complaints, physical examination findings and treatments including the natural course history without intervention and various interventional options. The patients imaging demonstrates as outlined above. On physical exam, Shelby Robison demonstrates weakness b/l LE as well as RLE severe weakness causing her to be wheelchair bound. There is decreased LT in the RLE. . I have explained to the patient that as their condition progresses it will cause further neurological deficits and eventual paralysis. Based on the patients imaging, physical exam, and the rapid progression and disabling nature of their symptoms, at this time I recommend surgery in the form of a: L2-Pelvis decompression and fusion. I discussed the risk and benefits of this procedure at length with Shelby Robison. The patient agreed to considered pursuing the procedure abovementioned. Prior to surgery, she should follow up with her PCP (Cardio, ID, IM etc) for clearance. Questions were invited and answered, and the patient wishes to proceed as outlined below. Currently, I am recommendin.Posterior (Backside) Lumbar 2 to Pelvis decompression and fusion with screws, rods, cages and bone graft 2.Follow up with PCP for surgical clearance 3.Review of surgical risks and benefits as well as an educational packet on the proposed surgical procedure. Risks: All surgical procedures come with inherent risks, including those related to po sitioning, anesthesia, intraoperative findings, and postoperative complications. It is important to understand that surgery does not come with any guarantee of a successful outcome as complications and adverse events are always possible. The patient was given a handout in office today discussing the surgical procedure and risks associated with the intervention, both of which were discussed with the patient. These risks include but are not limited to the following: * Experiencing same, different or even worse symptoms in back, neck, arms, or legs compared to before surgery. Requiring further surgery or other forms of treatment presently or at some time in the future at same or other levels of the intended spine surgery. On an extreme but fortunately relatively rare basis severe complication such as blindness, stroke, heart attack, temporary and/or permanent nerve injury, paralysis, coma, or may occur, sometimes without known explanation. Surgical complications may include but are not limited to risk of infection, fluid accumulation in the surgical dissection site, including a seroma or hematoma, that requires additional surgery, wound drainage, bleeding, new numbness or weakness, vision changes/loss, spinal fluid leakage, non-healing and/or infected incision, headaches, difficulty or inability to swallow, hoarseness, hemopneumothorax, pneumothorax, impotence, retrograde ejaculation, vaginal dryness; injury to nerves, spinal cord, blood vessels, lymphatics or other vital organs (i.e., bowel injury, injury to the great vessels); heterotopic bone formation; complications related to the hardware such as screws, rods, cages including misplaced hardware, device failure, instrumentation at the wrong spine level, hardware fracture/breakage, or aquino rdware loosening; vertebral failure of the spinal column above or below the newly placed hardware; retained surgical instrumentations or devices and the need for further surgery. * Medical risks of the planned spine surgery include but are not limited to generalized Infections to the whole body or local areas outside of the surgical site (sepsis), heart attack, bleeding, anaphylaxis, meningitis, seizure, epilepsy, hearing loss, burn manzanares, laceration of the head or other areas of the body, bruising, hypersensitivity of the skin, bladder over distension; allergic reaction; shoulder injury related to positioning; fat, blood and air clots to other areas of the body like heart, lungs, brain; failure of internal organs such as lungs, kidneys, liver and excessive bleeding. If blood transfusions are necessary, note that transfusions may cause intolerance reactions such as anaphylaxis or other complex reactions. Despite best efforts, the results of spine surgery might not heal in terms of bone, soft tissues such as skin, fascia, ligaments, and joints. Additionally, in order to achieve best possible results, spine surgery may be carried out beyond the initially planned levels and involve decompression, fusion including insertion of hardware at levels other than the original intended area of surgical interest change some portions of the procedure in order to ensure the best possible outcomes. With spine surgery and spinal fusion, there are different off label uses of instrumentation (devices, implants and hardware) as well as biological substances (bone morphogenic proteins, demineralized bone matrix) as well as using extra bone from allograft sources (i.e. cadaver bone) or autograft (iliac crest bone, ribs, or the spine itself). The patient has been given information about these practices and their inherent risks and benefits. [facility] is an educational center that serves as a training facility for nurses and WORKFORCE STAFFING ADVISOR students. Physician assistants are medically trained surgical providers who function in the outpatient, inpatient, and operating room setting under the direct supervision of the attending surgeon. [facility] has multiple operating rooms with single and overlapping rooms running daily. They currently function under the required guidelines as produced by the Senate Finance Committee with regards to the overlapping rooms a nd will continue to comply with changes to this policy as they occur. The requirements include and are complied with as follows: (1) the critical portions of the overlapping rooms will not occur at the same time, (2) the attending physician will be physically present during the critical portions of the procedure and immediately available during the entire case, and (3) a back-up attending is designated should the primary attending not be immediately available. The patient has had a chance to review all the listed information, has been given print outs detailing this information, and has had all his/her questions answered to their satisfaction. It was my pleasure to have seen and examined Shelby Robison. In our visit today we have had a chance to go over my understanding of our patient's current condition, the natural course history without intervention and various interventional options. Questions were invited and answered, and the patient wishes to proceed as outlined above. I have seen and examined the patient for 25 minutes and we have spent more than 50% of the time in repeat and detailed counseling about the patient's condition, its natural course history with out and as much as can be predicted with surgery and re-review of various surgical treatment options. In conclusion, Shelby Robison requested we proceed with the above suggested surgery and are willing to accept risks and limitations of the suggested surgery as nature of the disease process and our best attempts at treatment for the condition. Thank you again for allowing us to be part of your patient's care. Please don't hesitate to contact me if you have any further questions. Signed and authenticated by: sushil Auguste [facility] [address] [place] [address], [address] [address]
[~2021-06-02 06:35] MED LIST changes: +ACETAMINOPHEN TAB 500 MG TAB PO PRN; +GABAPENTIN 300 MG CAP PO PRN; -LACTATED RINGERS 1,000 ML IV SCH; +ONDANSETRON 4 MG/2 ML VIAL IVP PRN; +TRANEXAMIC ACID 1,000 MG in SODIUM CHLORIDE 0.9% 100 ML IVPB PRN
[2021-06-02] MEDS ORDERED: LACTATED RINGERS 1,000 ML IV ONE ×4 (07:13→14:00)
[2021-06-02 07:30] LABS: Glucose,Whole Blood 136 mg/dL (75-99)
[2021-06-02] MEDS ORDERED: MIDAZOLAM 2 MG/2 ML VIAL IVP ONE (08:00)
[2021-06-02] MEDS ORDERED: fentaNYL (PF) 50 MCG/ML 2 ML AMP ONE (08:12)
[2021-06-02] MEDS ORDERED: ePHEDrine 50 MG/ML 1 ML VIAL ONE (08:12)
[2021-06-02] MEDS ORDERED: ROCURONIUM 10 MG/ML (5 ML VIAL) IV ONE (08:12)
[2021-06-02] MEDS ORDERED: PHENYLEPHRINE-0.9% NACL SYG 1,000 MCG/10 ML SYRINGE ONE (08:12)
[2021-06-02] MEDS ORDERED: ceFAZolin 1,000 MG VIAL ONE (08:12)
[2021-06-02] MEDS ORDERED: SODIUM CHLORIDE 0.9% 100 ML BAG ONE (08:12)
[2021-06-02] MEDS ORDERED: SUCCINYLCHOLINE CHLORIDE 100 MG/5 ML SYR IV ONE (08:12)
[2021-06-02] MEDS ORDERED: DEXAMETHASONE SOD PHOSPHATE 4 MG/ML 1 ML VIAL ONE (08:12)
[2021-06-02] MEDS ORDERED: MIDAZOLAM 2 MG/2 ML VIAL ONE (08:12)
[2021-06-02] MEDS ORDERED: TRANEXAMIC ACID 1,000 MG/10 ML VIAL ONE (08:12)
[2021-06-02] MEDS ORDERED: PROPOFOL 10 MG/ML 20 ML VIAL IV ONE (08:12)
[2021-06-02] MEDS ORDERED: LIDOCAINE 1% INJ 10MG/ML (20 ML MDV) ONE (08:12)
[2021-06-02] MEDS ORDERED: ALBUMIN HUMAN 5% (12.5gm) 250 ML BOTTLE IVPB ONE (08:12)
[2021-06-02] MEDS ORDERED: SODIUM CHLORIDE 0.9% 250 ML BAG ONE (08:12)
[2021-06-02] MEDS ORDERED: HYDROmorphone (PF) 1 MG/ML ONE (08:12)
[2021-06-02 08:21] LABS: African American GFR (CKD) >90 (>60 ml/min/1.73 sqM); Blood Urea Nitrogen 24 mg/dL (7-17); Non-African American GFR(CKD) 88 (>60 ml/min/1.73 sqM)
[2021-06-02] MEDS ORDERED: GENTAMICIN 80 MG in SODIUM CHLORIDE 0.9% 100 ML IVPB ONE (08:45)
[2021-06-02] MEDS ORDERED: TRANEXAMIC ACID 2,000 MG in SODIUM CHLORIDE 0.9% 80 ML IV ONE (09:00)
[2021-06-02] MEDS ORDERED: THROMBIN (BOVINE) 5,000 UNIT VIAL TOPICAL ONE (09:41)
[2021-06-02] MEDS ORDERED: GELATIN SPONGE,ABSORB (LARGE) 1 EACH SPONGE MISCELLANE ONE (09:41)
[2021-06-02] MEDS ORDERED: BUPIVACAINE (PF) 0.25% 30 ML VIAL SQ ONE (09:41)
[2021-06-02] MEDS ORDERED: ceFAZolin 3,000 MG in SODIUM CHLORIDE 0.9% IRRIGATIO 3,000 ML IRRIGATION ONE (09:42)
[2021-06-02 10:09] LABS: Glucose,Whole Blood 107 mg/dL (75-99)
[2021-06-02 13:18] LABS: Glucose,Whole Blood 126 mg/dL (75-99)
[2021-06-02 15:13] LABS: Glucose,Whole Blood 125 mg/dL (75-99)
--- NOTE | 2021-06-02 15:55 | FL ---
EXAMINATION TYPE: FL guidance operating room, XR lumbar spine 2 or 3V DATE OF EXAM: 06/02/2021 CLINICAL HISTORY: Low back pain. TECHNIQUE: Fluoroscopy. Intraoperative 2 views lumbar spine. COMPARISON: CT lumbar spine May 20, 2021. FINDINGS: Fluoroscopic guidance was provided during lumbar fusion procedure performed by Dr. Russell son. A total of 259 seconds of fluoroscopic time was utilized during the procedure and 8 spot images was acquired. Intraoperative images obtained show placement of posterior interpedicular rods and screws bilateral L 2-S1 levels with artificial disc material at L2-L3, L3-L4, and L5-S1 levels. IMPRESSION: As Above.
[2021-06-02] MEDS ORDERED: MAGNESIUM HYDROXIDE 2,400 MG/10 ML CUP PO PRN (16:35)
[2021-06-02] MEDS ORDERED: bisacodyL 10 MG SUPP RECTAL PRN (16:35)
[2021-06-02] MEDS ORDERED: MAG HYDROX/AL HYDROX/SIMETH 30 ML CUP PO PRN (16:35)
[2021-06-02] MEDS ORDERED: SENNOSIDES-DOCUSATE SODIUM 1 EACH TAB PO PRN (16:35)
[2021-06-02] MEDS ORDERED: NA PHOS,M-B/NA PHOS,DI-BA 133 ML ENEMA RECTAL PRN (16:35)
[2021-06-02] MEDS ORDERED: HYDROmorphone 0.5 MG/0.5 ML SYRINGE IVP ONE (17:19)
--- NOTE | 2021-06-02 17:26 | P.PN ---
Progress Note - Text Progress Note Date: 06/02/21 Brief Post Op: Surgeon: Mona Pre op dx; L2 to S1 stenosis spondylosis Post op dx: Same Procedure: L2 to S1 decompression fusion Anesthesia: Gen. EBL: 650 cc Fluids: 4000cc UO: 310cc Dispo: Stable to PACU Post op Plan: Post operative noncontrasted CT scan Encourage ambulation IS 10x/hr Teds/SCDs Pain control No brace needed for ambulation Record Drain output
[2021-06-02 17:54] LABS: Glucose,Whole Blood 105 mg/dL (75-99)
[2021-06-02] MEDS: ACETAMINOPHEN TAB 500 MG TAB PO SCH (18:35)
[2021-06-02] MEDS ORDERED: oxyCODONE-APAP 10-325MG 1 EACH TAB PO PRN (18:57)
[2021-06-02 20:39] LABS: Glucose,Whole Blood 106 mg/dL (75-99)
[2021-06-02] MEDS ORDERED: NON FORMULARY DRUG (Gabapentin [Gabapentin] 600 MG Tablet) PO SCH (21:00)
[2021-06-02] MEDS: NYSTATIN 100,000 UNIT/GM OINT 30 GM TUBE TOPICAL SCH (23:05)
[2021-06-02] MEDS: INSULIN DETEMIR (LEVEMIR) 100 UNIT/ML SYR SQ SCH (23:05)
[2021-06-02] MEDS: amLODIPine 10 MG TAB PO SCH (23:05)
[2021-06-02] MEDS: GABAPENTIN 300 MG CAP PO SCH (23:05)
[2021-06-02] MEDS: DULoxetine HCL 60 MG CAPSULE.DR PO SCH (23:05)
[2021-06-02] MEDS: MONTELUKAST 10 MG TAB PO SCH (23:05)
[2021-06-02] MEDS: ATORVASTATIN 40 MG TAB PO SCH (23:05)
[2021-06-02] MEDS: METOPROLOL TARTRATE 50 MG TAB PO SCH (23:05)
[2021-06-03] MEDS: ACETAMINOPHEN TAB 500 MG TAB PO SCH ×4 (00:15→17:04)
--- NOTE | 2021-06-03 05:41 | CT ---
EXAM: CT Lumbar Spine Without Intravenous Contrast CLINICAL HISTORY: ITS.REASON CT Reason: s/p lumbar fusion TECHNIQUE: Axial computed tomography images of the lumbar spine without intravenous contrast. CTDI is 66.2 mGy and DLP is 2181.6 mGy-cm. This CT exam was performed using one or more of the following dose reduction techniques: automated exposure control, adjustment of the mA and/or kV according to patient size, and/or use of iterative reconstruction technique. COMPARISON: No relevant prior studies available. FINDINGS: Vertebrae: Stable 10 mm anterolisthesis of L3 and L4. No acute fracture or traumatic subluxation. Discs/spinal canal/neural foramina: Status post recent lumbar fusion surgery with laminectomies and posterior instrumented fusion hardware spanning the L2 through the S1 levels. Artificial disc replacement at L2- 3, L3-4 and L5-S1. Visualization of the thecal sac and neural foramina are suboptimal at these levels related to metallic artifact. Stable severe disc space narrowing at L4-5. Soft tissues: Unremarkable. Kidneys and ureters: Nonobstructive nephrolithiasis bilaterally. IMPRESSION: 1. Status post recent lumbar fusion surgery with laminectomies and posterior instrumented fusion hardware spanning the L2 through the S1 levels. Artificial disc replacement at L2-3, L3-4 and L5-S1. Visualization of the thecal sac and neural foramina are suboptimal at these levels related to metallic artifact. 2. Stable 10 mm anterolisthesis of L3 and L4.
[2021-06-03 06:57] LABS: Glucose,Whole Blood 133 mg/dL (75-99)
[2021-06-03] MEDS: METOPROLOL TARTRATE 50 MG TAB PO SCH ×2 (08:10→20:09)
[2021-06-03] MEDS: CHOLECALCIFEROL 25 MCG (1000 IU) TABLET PO SCH (08:10)
[2021-06-03] MEDS: CYANOCOBALAMIN 500 MCG TAB PO SCH (08:10)
[2021-06-03] MEDS: GABAPENTIN 300 MG CAP PO SCH ×2 (08:10→20:09)
[2021-06-03] MEDS: PANTOPRAZOLE 40 MG TABLET PO SCH (08:11)
[2021-06-03] MEDS: lisinopriL 10 MG TAB PO SCH (08:11)
[2021-06-03] MEDS: dexAMETHasone 4 MG TAB PO SCH (08:11)
[2021-06-03] MEDS: NYSTATIN 100,000 UNIT/GM OINT 30 GM TUBE TOPICAL SCH ×2 (08:11→20:09)
--- NOTE | 2021-06-03 08:33 | P.PN ---
Subjective Progress Note Date: 06/03/21 Principal diagnosis: L2 to S1 spondylosis with stenosis L4-L5 grade 1 spondylolisthesis Patient seen and examined this morning she is doing fairly well. She denies a history of chills shortness of breath or chest pain overnight. She complains of some back pain. States her legs feel better. She is otherwise doing well. She is about eat breakfast. She has not been up yet. Stacy is still in place. Drain is in place. She denies any perineal numbness or tingling. Objective - Vital Signs Vital signs: Vital Signs Temp 97.8 F 06/03/21 08:00 Pulse 69 06/03/21 08:00 Resp 16 06/03/21 08:00 BP 109/57 06/03/21 08:00 Pulse Ox 93 L 06/03/21 08:00 Intake & Output 06/02/21 06/03/21 06/03/21 18:59 06:59 18:59 Intake Total 3553 Output Total 560 1280 Balance 2993 -1280 Weight 87.8 kg Intake: IV 3553 Output: Drainage 280 Right Lower Back 280 Urine 310 1000 Uretheral (Stacy) 700 Estimated Blood Loss 250 Other: Voiding Method Indwelling Catheter - Exam Patient is alert and oriented 3 appears well-nourished well-hydrated is in no acute distress. They do not appear septic. On exam the patient has no tenderness to palpation of her thoracic or lumbar spine. There is no edema or ballottement sign. Lower extremities with 4/5 strength in all major muscle groups. Right lower extremity is still fairly weak in hip flexion however is getting better. Upper extremities show 4+/5 strength in all major muscle groups. [2]/4DTR all UE and LE b/l Patient shows a negative Homans, Ward's, negative Babinski's negative clonus bilaterally. negative straight leg raise bilaterally. No tensioning signs. Cranial nerves II through XII are grossly intact. There is FROM that is painless of the b/l UE and LE in all major joints [w/o pain]. They are intact to light touch sensation in L2 to S1 nerve distribution. Patient has palpable dorsalis pedis was posterior tibial pulses. Compartments are soft and compressible. Drain has 25 mL it was recently dumped - Labs CBC & Chem 7: 06/02/21 07:55 Labs: Abnormal Lab Results - Last 24 Hours (Table) 06/02/21 06/02/21 06/02/21 Range/Units 10:07 13:10 15:12 POC Glucose (mg/dL) 107 H 126 H 125 H (75-99) mg/dL 06/02/21 06/02/21 06/03/21 Range/Units 17:51 20:37 06:55 POC Glucose (mg/dL) 105 H 106 H 133 H (75-99) mg/dL Assessment and Plan Assessment: 65-year-old female postop day 1 L2 to S1 decompression fusion 1. L2-S1 severe stenosis 2.L2-S1 spondylosis 3. right lower extremity weakness 4. right lower extremity radiculopathy 5. L2-3 large HNP with sequestration 6. Mechanical low back pain Plan: -Appreciate splunk consultant and team management. -Activity: Ambulate QID, OOB all meals, up and about, limit lifting bending twisting to less than 5 lbs. Use walker or cane if needed for stability. -Daily PT/OT, increase ambulation strength and balance. -No braces needed -Pain control: Adequate at this time -Meds: reviewed -GI ppx: senna, Miralax -DC stacy when up and about, bedside commode if needed -DVT PPX: OK to restart Heparin tonight -Hygiene: Shower today. Maintain dressing clean and dry. Meticulous cleaning after BMs away from incision site -Drains: Maintain for now. Record output -Encourage IS 10x/hr -CT lumbar spine for hardware evaluation postoperatively -Dispo: Pending
[2021-06-03] MEDS ORDERED: GENTAMICIN IN NACL ISO-OSM PMX 80 MG in SALINE 1 100ML.BAG IVPB ONE (09:00)
[2021-06-03] MEDS ORDERED: NON FORMULARY DRUG (Ubidecarenone [Co Q-10] 100 MG Capsule) PO SCH (09:00)
[2021-06-03] MEDS ORDERED: GENTAMICIN 80 MG in SODIUM CHLORIDE 0.9% 100 ML IVPB ONE (09:00)
[2021-06-03 09:49] LABS: African American GFR (CKD) 100.4 (60.0-200.0); Albumin 3.2 g/dL (3.8-4.9); Albumin/Globulin Ratio 2.4 (1.60-3.17); BUN/Creat Ratio 25.14 Ratio (12.00-20.00); Blood Urea Nitrogen 18.1 mg/dL (9.0-27.0); Calcium 8.1 mg/dL (8.7-10.3); Carbon Dioxide 17.1 mmol/L (20.0-27.5); Globulin 1.3 g/dL (1.6-3.3); Non-African American GFR(CKD) 86.7 (60.0-200.0); Potassium 3.2 mmol/L (3.5-5.5); Total Bilirubin 0.4 mg/dL (0.30-1.20); Total Protein 4.6 g/dL (6.2-8.2)
[2021-06-03 10:41] LABS: Basophils # (A) 0.03 X 10*3/uL (0.00-0.10); Basophils % (A) 0.2 %; Eosinophils # (A) 0.01 X 10*3/uL (0.04-0.35); Eosinophils % (A) 0.1 %; HCT 27.9 % (37.2-46.3); HGB 8.9 g/dL (12.0-15.0); Immature Grans, Automated 1.2 %; Lymphocytes # (A) 1.22 X 10*3/uL (0.90-5.00); Lymphocytes % (A) 7.9 %; MCH 30.2 pg (27.0-32.0); MCHC 31.9 g/dL (32.0-37.0); MCV 94.6 fL (80.0-97.0); Mean Platelet Volume 10.4 fL (9.5-12.2); Monocytes # (A) 1.44 X 10*3/uL (0.20-1.00); Monocytes % (A) 9.3 %; NRBC Per 100 WBC 0 /100 WBCS (0.0-0.0); Neutrophils # (A) 12.64 X 10*3/uL (1.80-7.70); Neutrophils % (A) 81.3 %; Platelet Count 183 X 10*3/uL (140-440); RBC 2.95 X 10*6/uL (4.10-5.20); RDW 13.4 % (11.5-14.5); WBC 15.52 X 10*3/uL (4.50-10.00)
[2021-06-03 10:42] LABS: Acanthocytes 2+; Microcytosis (M) 2+
[2021-06-03] MEDS ORDERED: Potassium Replacement Protocol 1 EACH MISC MISCELLANE PRN (11:00)
--- NOTE | 2021-06-03 11:08 | P.CONS ---
History of Present Illness - Reason for Consult Consult date: 06/03/21 medical management Requesting physician: Praveen Maguire - Chief Complaint Back pain - History of Present Illness This is a 65-year-old female patient of Dr. Leblanc who presented for an elective L2 to S1 decompression fusion. Patient has a long-standing history of chronic back pain and was found to have L2 to S1 severe stenosis L2 to S1 spondylosis resulting in left lower extremity weakness low back pain and radiculopathy. Patient has failed outpatient conservative management and pain control. She has past medical history of degenerative disc disease with history of lumbar laminectomy and stimulator placement for pain management. Additional medical history includes insulin-dependent diabetes mellitus, hypertension, hyperlipidemia and post polio syndrome. Patient is currently postop day 1. Patient is resting comfortably in bed. Patient reports improvement with lower extremity weakness and pain but does report she's been having issues with diarrhea since [facility] facility. At this time will order C. diff sample. Patient also has low potassium of 3.2 ordered replacement protocol. Patient also placed on sliding scale insulin coverage along with her home dose of long-acting insulin. At this time patient denies chest pain or shortness of breath. Gregorio hagan denies nausea vomiting or diarrhea. Patient denies any urinary burning or frequency Review of Systems Please refer to HPI otherwise unremarkable Past Medical History Past Medical History: Atrial Fibrillation, Coronary Artery Disease (CAD), COPD, Diabetes Mellitus, GERD/Reflux, Hyperlipidemia Additional Past Medical History / Comment(s): post polio syndrome, neuropathy, hx. spontaneous pneumothorax, recent diarrhea, bowel resecction for sepsis/infection History of Any Multi-Drug Resistant Organisms: C-DIFF Year Discovered:: 2013 MDRO Source:: stool Past Surgical History: Back Surgery, Bowel Resection, Cholecystectomy, Coronary Bypass/CABG, Ear Surgery, Tonsillectomy Additional Past Surgical History / Comment(s): triple bypass 2013, left salpingo-oophorectomy, laminectomy L4 L5, ear surgery x 3 Past Anesthesia/Blood Transfusion Reactions: No Reported Reaction Past Psychological History: No Psychological Hx Reported Smoking Status: Former smoker Past Alcohol Use History: None Reported Additional Past Alcohol Use History / Comment(s): quit smoking 2008, 1ppd since age of 15 Past Drug Use History: None Reported - Past Family History Mother Family Medical History: Cancer Medications and Allergies Home Medications Medication Instructions Recorded Confirmed Type Atorvastatin [Lipitor] 40 mg PO HS 12/06/16 02/15/22 History DULoxetine HCL [Cymbalta] 60 mg PO HS 03/23/16 06/02/21 History Metoprolol Tartrate [Lopressor] 50 mg PO BID 03/23/16 06/01/21 History Omeprazole [PriLOSEC] 20 mg PO DAILY 03/23/16 06/02/21 History Insulin Glargine,Hum.rec.anlog 40 unit SQ HS 05/18/21 06/02/21 History [Lantus Solostar Pen] Lisinopril [Prinivil] 10 mg PO DAILY 05/18/21 06/01/21 History Montelukast [Singulair] 10 mg PO HS 05/18/21 06/01/21 History Ubidecarenone [Co Q-10] 100 mg PO DAILY 05/18/21 06/01/21 History amLODIPine [Norvasc] 10 mg PO HS 05/18/21 06/01/21 History Cyanocobalamin [Vitamin B-12] 1,000 mcg PO DAILY tab 05/22/21 06/01/21 Rx Gabapentin 600 mg PO BID 3 Days #6 tab 05/22/21 06/01/21 Rx INSULIN ASPART (NovoLOG) [NovoLOG 0 unit SQ ACHS ml 05/22/21 06/02/21 Rx (formulary)] oxyCODONE-APAP 10-325MG [Percocet 1 each PO Q6HR PRN 3 Days #12 tab 05/22/21 06/01/21 Rx 10-325 mg] Cholecalciferol [Vitamin D3 (25 25 mcg PO DAILY 06/01/21 06/01/21 History Mcg = 1000 Iu)] Dexamethasone [Decadron] 4 mg PO DAILY 06/01/21 06/01/21 History Tums(Dose Unknown) 1 tab PO DIRECTED PRN 06/01/21 06/01/21 History Allergies Allergy/AdvReac Type Severity Reaction Status Date / Time morphine Allergy rash,itchin Verified 06/02/21 06:58 g Sulfa (Sulfonamide Allergy Rash/Hives Verified 06/02/21 06:58 Antibiotics) Physical Exam Vitals: Vital Signs Temp Pulse Pulse Resp BP BP Pulse Ox 06/03/21 08:00 97.8 F 69 16 109/57 93 L 06/03/21 02:00 97.9 F 81 13 109/63 97 06/02/21 20:03 83 117/62 89 L 06/02/21 19:48 83 119/65 92 L 06/02/21 19:33 78 117/69 87 L 06/02/21 19:18 75 113/64 95 06/02/21 19:03 77 108/64 94 L 06/02/21 18:48 75 120/69 95 06/02/21 18:33 78 118/67 93 L 06/02/21 18:18 80 136/71 95 06/02/21 17:53 77 16 151/83 94 L 06/02/21 17:38 77 16 151/83 96 06/02/21 17:23 76 16 158/50 124/58 99 06/02/21 17:08 77 17 167/50 133/59 100 06/02/21 16:53 79 18 170/54 131/57 100 06/02/21 16:39 97.2 F L 87 16 165/58 145/91 100 Intake and Output 06/02/21 06/03/21 06/03/21 22:59 06:59 14:59 Intake Total 200 Output Total 560 1280 150 Balance -360 -1280 -150 Intake: IV 200 Output: Drainage 280 Right Lower Back 280 Urine 310 1000 150 Uretheral (Ye) 700 150 Estimated Blood Loss 250 Other: Voiding Method Indwelling Catheter Indwelling Catheter # Bowel Movements 1 Weight 87.8 kg Head normocephalic Neck supple Lungs clear to auscultation bilaterally no wheezing or crackles Heart regular rate and rhythm S1-S2, no rub or gallop Abdomen is soft nontender nondistended positive bowel sounds no hepatosplenomegaly Extremities no edema Neuro alert and orientated to 3 Results CBC & Chem 7: 06/03/21 04:43 06/03/21 04:43 Labs: Abnormal Lab Results - Last 24 Hours (Table) 06/02/21 06/02/21 06/02/21 Range/Units 13:10 15:12 17:51 WBC (4.50-10.00) X 10*3/uL RBC (4.10-5.20) X 10*6/uL Hgb (12.0-15.0) g/dL Hct (37.2-46.3) % MCHC (32.0-37.0) g/dL Immature Gran # (0.00-0.04) X 10*3/uL Neutrophils # (1.80-7.70) X 10*3/uL Monocytes # (0.20-1.00) X 10*3/uL Eosinophils # (0.04-0.35) X 10*3/uL Potassium (3.5-5.5) mmol/L Carbon Dioxide (20.0-27.5) mmol/L BUN/Creatinine Ratio (12.00-20.00) Ratio Glucose (70-110) mg/dL POC Glucose (mg/dL) 126 H 125 H 105 H (75-99) mg/dL Calcium (8.7-10.3) mg/dL AST (13-35) U/L Alkaline Phosphatase (41-126) U/L Total Protein (6.2-8.2) g/dL Albumin (3.8-4.9) g/dL Globulin (1.6-3.3) g/dL 06/02/21 06/03/21 06/03/21 Range/Units 20:37 04:43 04:43 WBC 15.52 H (4.50-10.00) X 10*3/uL RBC 2.95 L (4.10-5.20) X 10*6/uL Hgb 8.9 L (12.0-15.0) g/dL Hct 27.9 L (37.2-46.3) % MCHC 31.9 L (32.0-37.0) g/dL Immature Gran # 0.18 H (0.00-0.04) X 10*3/uL Neutrophils # 12.64 H (1.80-7.70) X 10*3/uL Monocytes # 1.44 H (0.20-1.00) X 10*3/uL Eosinophils # 0.01 L (0.04-0.35) X 10*3/uL Potassium 3.2 L (3.5-5.5) mmol/L Carbon Dioxide 17.1 L (20.0-27.5) mmol/L BUN/Creatinine Ratio 25.14 H (12.00-20.00) Ratio Glucose 176 H (70-110) mg/dL POC Glucose (mg/dL) 106 H (75-99) mg/dL Calcium 8.1 L (8.7-10.3) mg/dL AST 114 H (13-35) U/L Alkaline Phosphatase 39 L (41-126) U/L Total Protein 4.6 L (6.2-8.2) g/dL Albumin 3.2 L (3.8-4.9) g/dL Globulin 1.3 L (1.6-3.3) g/dL 06/03/21 Range/Units 06:55 WBC (4.50-10.00) X 10*3/uL RBC (4.10-5.20) X 10*6/uL Hgb (12.0-15.0) g/dL Hct (37.2-46.3) % MCHC (32.0-37.0) g/dL Immature Gran # (0.00-0.04) X 10*3/uL Neutrophils # (1.80-7.70) X 10*3/uL Monocytes # (0.20-1.00) X 10*3/uL Eosinophils # (0.04-0.35) X 10*3/uL Potassium (3.5-5.5) mmol/L Carbon Dioxide (20.0-27.5) mmol/L BUN/Creatinine Ratio (12.00-20.00) Ratio Glucose (70-110) mg/dL POC Glucose (mg/dL) 133 H (75-99) mg/dL Calcium (8.7-10.3) mg/dL AST (13-35) U/L Alkaline Phosphatase (41-126) U/L Total Protein (6.2-8.2) g/dL Albumin (3.8-4.9) g/dL Globulin (1.6-3.3) g/dL Assessment and Plan Assessment: 1. History of L2 to S1 severe stenosis, L2 to S1 spondylosis. status post L2 to S1 decompression fusion with Dr. Mcdonough. Patient is currently postop day 1 2. History of right lower extremity weakness and right lower extremity radiculopathy and chronic back pain secondary to above 3. History of insulin-dependent diabetes mellitus. Patient maintained on long- acting insulin sliding scale coverage added 4. History of essential hypertension 5. History of hyperlipidemia 6. History of postpolio syndrome 7. History of degenerative disc disease with history of lumbar laminectomy stimulator placement for pain management 8. Hypokalemia. Replace per protocol 9. Diarrhea. Stool for C. diff ordered Thank you for this consultation we will follow patient closely throughout stay Time with Patient: Greater than 30 (Greater than 60% of the total time spent in counseling and coordination of care)
[2021-06-03 11:35] LABS: Glucose,Whole Blood 357 mg/dL (75-99)
[2021-06-03] MEDS: POTASSIUM CHLORIDE ER 20 MEQ TAB.ER PO SCH (11:43)
[2021-06-03] MEDS: INSULIN ASPART (NovoLOG) 100 UNIT/ML VIAL SQ SCH ×3 (11:44→21:39)
[2021-06-03 16:33] LABS: Glucose,Whole Blood 254 mg/dL (75-99)
[2021-06-03] MEDS: ONDANSETRON 4 MG/2 ML VIAL IVP PRN (20:06)
[2021-06-03] MEDS: CYCLOBENZAPRINE 5 MG TAB PO PRN (20:08)
[2021-06-03] MEDS: MONTELUKAST 10 MG TAB PO SCH (20:08)
[2021-06-03] MEDS: ATORVASTATIN 40 MG TAB PO SCH (20:08)
[2021-06-03] MEDS: amLODIPine 10 MG TAB PO SCH (20:09)
[2021-06-03] MEDS: DULoxetine HCL 60 MG CAPSULE.DR PO SCH (20:09)
[2021-06-03 21:06] LABS: Glucose,Whole Blood 329 mg/dL (75-99)
[2021-06-03] MEDS: HYDROmorphone 1 MG/ML 1 ML SYRINGE IVP PRN (21:38)
[2021-06-03] MEDS: INSULIN DETEMIR (LEVEMIR) 100 UNIT/ML SYR SQ SCH (21:39)
[2021-06-04] MEDS: ACETAMINOPHEN TAB 500 MG TAB PO SCH ×5 (00:08→23:18)
[2021-06-04] MEDS: CALCIUM CARBONATE 500 MG CHEWABLE PO PRN ×2 (03:00→08:58)
[2021-06-04] MEDS: ONDANSETRON 4 MG/2 ML VIAL IVP PRN ×3 (04:08→20:28)
[2021-06-04] MEDS: PROCHLORPERAZINE INJ 10 MG/2 ML VIAL IVP PRN ×2 (05:30→15:10)
[2021-06-04 07:00] LABS: Glucose,Whole Blood 124 mg/dL (75-99)
--- NOTE | 2021-06-04 07:35 | P.PN ---
Subjective Progress Note Date: 06/04/21 Principal diagnosis: L2 to S1 spondylosis with stenosis L4-L5 grade 1 spondylolisthesis Patient seen and examined this morning. She had a little bit of a rough night with some nausea and vomiting. She finds of back pain over her legs are feeling better and stronger. The Stacy was inadvertently removed last night and then she ended up having some retention so was replaced. She is having some difficulty getting up and moving however she is able to move fairly well in bed. She denies any perineal numbness or tingly she denies any other bowel or bladder issues. She denies any fevers chills shortness of breath or chest pain overnight. Objective - Vital Signs Vital signs: Vital Signs Temp 98 F 06/04/21 07:27 Pulse 104 H 06/04/21 07:27 Resp 18 06/04/21 07:32 BP 130/62 06/04/21 07:27 Pulse Ox 97 06/04/21 07:27 Intake & Output 06/03/21 06/04/21 06/04/21 18:59 06:59 18:59 Intake Total 720 Output Total 450 720 Balance 270 -720 Intake: Oral 720 Output: Drainage 170 Right Lower Back 170 Urine 450 550 Uretheral (Stacy) 450 Other: Voiding Method Indwelling Catheter Indwelling Catheter Indwelling Catheter # Bowel Movements 1 - Exam Exam repeated today. She is much better movement of her right lower extremity and hip flexion as well as knee extension. She still slightly weak however she is doing much better Her incision is clean and dry she has some spotting of the superior portion of the dressing which will be changed once a training about. This is dry. Patient is alert and oriented 3 appears well-nourished well-hydrated is in no acute distress. They do not appear septic. On exam the patient has no tenderness to palpation of her thoracic or lumbar spine. There is no edema or ballottement sign. Lower extremities with 4/5 strength in all major muscle groups. Right lower extremity is still fairly weak in hip flexion however is getting better. Upper extremities show 4+/5 strength in all major muscle groups. [2]/4DTR all UE and LE b/l Patient shows a negative Homans, Ward's, negative Babinski's negative clonus bilaterally. negative straight leg raise bilaterally. No tensioning signs. Cranial nerves II through XII are grossly intact. There is FROM that is painless of the b/l UE and LE in all major joints [w/o pain]. They are intact to light touch sensation in L2 to S1 nerve distribution. Patient has palpable dorsalis pedis was posterior tibial pulses. Compartments are soft and compressible. Drain has 25 mL it was recently dumped - Labs CBC & Chem 7: 06/03/21 04:43 06/03/21 04:43 Labs: Abnormal Lab Results - Last 24 Hours (Table) 06/03/21 06/03/21 06/03/21 Range/Units 04:43 04:43 11:34 WBC 15.52 H (4.50-10.00) X 10*3/uL RBC 2.95 L (4.10-5.20) X 10*6/uL Hgb 8.9 L (12.0-15.0) g/dL Hct 27.9 L (37.2-46.3) % MCHC 31.9 L (32.0-37.0) g/dL Immature Gran # 0.18 H (0.00-0.04) X 10*3/uL Neutrophils # 12.64 H (1.80-7.70) X 10*3/uL Monocytes # 1.44 H (0.20-1.00) X 10*3/uL Eosinophils # 0.01 L (0.04-0.35) X 10*3/uL Potassium 3.2 L (3.5-5.5) mmol/L Carbon Dioxide 17.1 L (20.0-27.5) mmol/L BUN/Creatinine Ratio 25.14 H (12.00-20.00) Ratio Glucose 176 H (70-110) mg/dL POC Glucose (mg/dL) 357 H (75-99) mg/dL Calcium 8.1 L (8.7-10.3) mg/dL AST 114 H (13-35) U/L Alkaline Phosphatase 39 L (41-126) U/L Total Protein 4.6 L (6.2-8.2) g/dL Albumin 3.2 L (3.8-4.9) g/dL Globulin 1.3 L (1.6-3.3) g/dL 02/16/22 02/16/22 02/17/22 Range/Units 16:32 21:04 06:59 WBC (4.50-10.00) X 10*3/uL RBC (4.10-5.20) X 10*6/uL Hgb (12.0-15.0) g/dL Hct (37.2-46.3) % MCHC (32.0-37.0) g/dL Immature Gran # (0.00-0.04) X 10*3/uL Neutrophils # (1.80-7.70) X 10*3/uL Monocytes # (0.20-1.00) X 10*3/uL Eosinophils # (0.04-0.35) X 10*3/uL Potassium (3.5-5.5) mmol/L Carbon Dioxide (20.0-27.5) mmol/L BUN/Creatinine Ratio (12.00-20.00) Ratio Glucose (70-110) mg/dL POC Glucose (mg/dL) 254 H 329 H 124 H (75-99) mg/dL Calcium (8.7-10.3) mg/dL AST (13-35) U/L Alkaline Phosphatase (41-126) U/L Total Protein (6.2-8.2) g/dL Albumin (3.8-4.9) g/dL Globulin (1.6-3.3) g/dL Assessment and Plan Assessment: 65-year-old female postop day 2 L2 to S1 decompression fusion 1. L2-S1 severe stenosis 2.L2-S1 spondylosis 3. right lower extremity weakness 4. right lower extremity radiculopathy 5. L2-3 large HNP with sequestration 6. Mechanical low back pain Plan: -Appreciate identity management consultant and team management. -Activity: Ambulate QID, OOB all meals, up and about, limit lifting bending twisting to less than 5 lbs. Use walker or cane if needed for stability. -Daily PT/OT, increase ambulation strength and balance. -No braces needed -Pain control: Adequate at this time -Meds: reviewed -GI ppx: senna, Miralax -DC stacy when up and about, bedside commode if needed -DVT PPX: OK to restart Heparin tonight -Hygiene: Shower today. Maintain dressing clean and dry. Meticulous cleaning after BMs away from incision site -Drains: Maintain for now. Record output -Encourage IS 10x/hr -CT is reviewed hardware is in good position and good decompression noted interbody fusion. obtain processes seen. Better alignment overall. -Dispo: Pending
[2021-06-04] MEDS: INSULIN ASPART (NovoLOG) 100 UNIT/ML VIAL SQ SCH ×4 (07:37→20:29)
[2021-06-04] MEDS: PANTOPRAZOLE 40 MG TABLET PO SCH (07:38)
--- NOTE | 2021-06-04 08:01 | P.OP ---
Date of Procedure: 06/02/21 Preoperative Diagnosis: 1. L2-S1 severe stenosis 2.L2-S1 spondylosis with L4-5 Grade II chronic spondylolisthesis 3. right lower extremity weakness 4. right lower extremity radiculopathy 5. L2-3 large HNP with sequestration 6. Mechanical low back pain Postoperative Diagnosis: 1. L2-S1 severe stenosis 2.L2-S1 spondylosis with L4-5 Grade II chronic spondylolisthesis 3. right lower extremity weakness 4. right lower extremity radiculopathy 5. L2-3 large HNP with sequestration 6. Mechanical low back pain Procedure(s) Performed: 1. L2-S1 posterior lateral instrumented fusion 2. L2 to S1 bilateral laminectomy and facetectomy and foraminotomy 3. L2-L3 interbody fusion 4. L3-L4 interbody fusion 5. L5-S1 interbody fusion 6. Segmental instrumentation L2 S1 7. Use of intraoperative neuro monitoring 8. Interpretation of intraoperative fluoroscopy less than 1 hour Implants: Globus Creole screws and idris Globus rise Cage Amplify dualX Cages Theracell DBM BIO4 Autograft Allograft Anesthesia: GETA Surgeon: Jt Dunn Speed Operator #1: Praveen Maguire (Was present for the entire case and assisted in opening dissection instrumentation interbody fusion posterior lateral fusion as well as closure) Speed Operator #2: Avelina Ward (Was present as a scrub observer) Estimated Blood Loss (ml): 650 IV fluids (ml): 4,000 Urine output (ml): 310 Pathology: none sent Condition: stable Disposition: PACU Indications for Procedure: 65-year-old female who had presented to the hospital about a week ago with complaints of right lower extremity pain and weakness as well as radiculopathy. Patient was seen in the hospital MRIs were completed which demonstrated a large L2-L3 disc herniation with extrusion. She also had multiple levels of spondylotic change multiple levels of stenosis a chronic grade 2 L4-L5 spondylolisthesis causing stenosis as well has neurogenic claudication. He the patient underwent ARTURO in the hospital which did not alleviate her symptoms. She after much discussion decided that she would like to have surgery on this. Before this can be done she was discharged to a rehab facility. She followed up in the office promptly after this and we urgently scheduled her for surgical intervention. She continued to have right lower extremity weakness as well as neurogenic claudication she has difficulty with ambulation as well as day-to-day activity secondary to this. She has had a previous surgery on her back in the form of a laminectomy several years prior but no other surgeries or injuries. She denied any perineal numbness or tingling no bowel or bladder issues. She denies any fevers chills shortness of breath or chest pain. We discussed risks and benefits of surgery as well as conservative treatment and she has opted for surgical treatment at this time. Description of Procedure: The patient was seen and examined in the preoperative area. All preoperative protocols were followed. Informed consent was obtained risks and benefits of the procedure were discussed at length. Risks including bleeding infection damage to the surrounding tissue and risk of reoperation were discussed with the patient. Risk of anesthesia up to and including was a discussed with the patient. These are outlined in the risk review. They were willing to accept these risks and all of the risks of surgery. The patient was given a weight- based dose of antibiotics in the form of 2 g Ancef plus weight-based dose of gentamicin due to a large rash in her perineal region. The patient was seen and evaluated by the anesthesia team who deemed them fit for surgery. The site was marked, the patient was willing to proceed with the procedure. The patient was transferred to the operative suite by the Department of anesthesia. They were then drifted off to sleep by the department anesthesia and GETA was performed. The patient tolerated this well. Ye catheter was placed by nursing staff, atraumatically. Once confirmation of lines and ventilation the patient was transferred to a prone Froylan table very carefully. All bony prominences including wrists, elbows, axilla, chest, hips, and thighs, and feet were padded very well. Special attention was paid to the genitalia and these were padded accordingly. SCDs were placed on bilateral lower extremities and were connected. Arms were well padded and placed on arm boards up and out in the 90/90 position. Once in position, again we confirmed good ventilation capabilities and that lines were running appropriately. The patient's lumbar spine was then exposed. 1010s were placed outlining the incision site. Standard alcohol was used to clean the incision site and allowed to dry. C-arm was used to biomark the patient and confirm level for incision which was marked with a skin marker. Operative briefing was performed with all teams and everyone in agreement to proceed. The patient was then prepped and aped in a normal sterile fashion. Timeout was then performed and all parties were in agreement with the procedure to be performed. Midline skin incision was then made over the previously by marked area and dissection taken down until the lumbar fascia was identified this was then cleaned with a Diaz. Midline fasciotomy was then performed over the spinous processes of L2 through S1. We then performed subperiosteal dissection over this area until the facet joints and transverse processes were exposed. We exposed transverse process from L2 down to S1 and sacral ala. There was a large midline scar secondary to her previous surgery but we are able to clean this from the area. The laminotomy defect in this area was extremely small and had overgrown with bone. Once exposure was complete we confirmed levels with lateral fluoroscopic imaging and marker. We then proceeded with placement of screws from L2 to S1. Screws were placed and a standard fashion with a high- speed bur followed by a pedicle finder feeler tap and screw. We placed screws in left-hand side and then placed screws on the right-hand side. Once screws were in place we took AP lateral fluoroscopy which confirmed good placement of the screws. We then tested all screws and all screws tested with neuro monitoring above 20 mA except for the right S1 which tested at 18. We then thoroughly irrigated the wound. I proceeded with decompression. We started with decompression L2-L3 due to her large disc herniation in this area. Performed bilateral laminectomy and facetectomy and foraminotomy at L2-L3. Within access the disc space perform sequential shaving removal of disc down- biting curettes as well as decortication of the bone we removed the cartilage and under lateral fluoroscopic guidance placed a globus rise cage. This was impacted into place in the lateral fluoroscopy while protecting the dura medially and the exiting nerve root completely. Once the cages in good position with it operations specialist that. We then back filled the area with DBM as well as autograft. Prior to cage placement we did place autograft anterior. Director Of [employer] was then removed and we inspected the area dura was intact nerve root was intact. We then proceeded with decompression L3-L4 I performed bilateral laminectomy facetectomy foraminotomy at this level as well. Within access the disc space. Protecting the exiting nerve root as well as the dura. We perform sequential shaving as well as disc removal and decortication. Once good bleeding bony bed accessed we sized for an Amplify cage. Once we had reached the appropriate size the anterior disc space was filled with autograft and allograft. We then impacted the cage into place. Protecting the dura and exiting nerve root thoroughly. Once cages in position and was expanded under lateral fluoroscopic guidance. We then took a quick AP to demonstrate centrally located. We then expanded the cage entirely and locked into position with locking screw. Then back filled the cages autograft and allograft and DBM. The jig and steam stasis form FloSeal was placed in the gutters. Along with patties. We then proceeded to decompress L4-L5 level JOSEPH- L5 level was decompressed doing similar bilateral laminectomy foraminotomy facetectomy. It was extremely scarred in this area we were very meticulous and cleaning the dura in this area due to the previous laminectomy was performed. Once this was completed we disconnected the posterior pars bilaterally performing foraminotomies bilaterally at this level. On testing the screws there is little to no motion at L4-L5 and so he decided against cage placement at this level area we then turned our attention to the L5-S1 level. Then performed bilateral laminectomy foraminotomy facetectomy complete of L5-S1. This opened the space were able to identify the disc space. We then access the disc space L5-S1. We did perform sequential shaving as well as decortication. Once good bleeding bone had been completed and complete discectomy was performed we packed allograft autograft anterior in the disc space were then placed a sized amplify cage and expanded it thoroughly under lateral fluoroscopic guidance. AP demonstrated centrally located. Once cages fully expanded and locked in place a screw. Then back filled the cages autograft allograft and DBM. 4 meticulous hemostasis with FloSeal patties. Once all the cages were placed through thoroughly irrigated the wound once again. We then proceeded with idris placement. Rods were sized and bent accordingly and placed. Set screws were then placed and locked into position at the lower segments up to L4. We then perform distraction between L3-L4 and L2-L3 to decrease the acuity of her lumbar lordosis at these levels which had been likely compensatory for years. Were able to distract slightly at L4-L5 which allowed for some good correction in this area. We then final tightened all screws. We then placed cross-links and final tightening these in position. With then copiously irrigated the wound once again with 6 L normal sterile saline. Final images were taken demonstrating good placement of screws as well as hardware and reduction. We then decorticated posterior lateral gutters MTP. We then placed a mixture of allograft autograft and DBM in the posterior lateral gutters this is impacted into place and Surgicel placed over it. Then placed Surgicel over the dura to protect it for anti-adhesive properties. We then placed a drain deep to the fascia and secured it in place with a stitch. We then proceeded with layered closure first and lumbar fascia which was closed watertight with #1 Vicryl followed by running strata fix suture. We then closed the deep subcu tissue over a drain with 0 Vicryl superficial subcu tissues closed with 2-0 Vicryl and the skin closed with skin susy. The wound was then thoroughly irrigated and cleaned and dressed sterilely with an operative foam dressing drain sponges and Tegaderms. The patient was transferred back to their hospital bed atraumatically. Drain continued to hold suction and were in good position. Patient was then awakened and extubated by the department of anesthesia having tolerated the procedure very well with no complications. They were transferred to the postoperative care unit in stable condition.
[2021-06-04] MEDS: HYDROmorphone 1 MG/ML 1 ML SYRINGE IVP PRN ×2 (08:59→17:24)
[2021-06-04 09:01] LABS: African American GFR (CKD) 103.9 (60.0-200.0); Albumin 3.4 g/dL (3.8-4.9); Albumin/Globulin Ratio 1.89 (1.60-3.17); Anion Gap 13.8 mmol/L (10.00-18.00); BUN/Creat Ratio 26.43 Ratio (12.00-20.00); Blood Urea Nitrogen 18.5 mg/dL (9.0-27.0); Calcium 8.8 mg/dL (8.7-10.3); Carbon Dioxide 19.2 mmol/L (20.0-27.5); Globulin 1.8 g/dL (1.6-3.3); Non-African American GFR(CKD) 89.7 (60.0-200.0); Potassium 3.4 mmol/L (3.5-5.5); Total Bilirubin 0.4 mg/dL (0.30-1.20); Total Protein 5.2 g/dL (6.2-8.2)
[2021-06-04] MEDS: lisinopriL 10 MG TAB PO SCH (09:34)
[2021-06-04] MEDS: CHOLECALCIFEROL 25 MCG (1000 IU) TABLET PO SCH (09:34)
[2021-06-04] MEDS: CYANOCOBALAMIN 500 MCG TAB PO SCH (09:34)
[2021-06-04] MEDS: METOPROLOL TARTRATE 50 MG TAB PO SCH ×2 (09:34→20:32)
[2021-06-04] MEDS: dexAMETHasone 4 MG TAB PO SCH (09:34)
[2021-06-04] MEDS: GABAPENTIN 300 MG CAP PO SCH ×2 (09:34→20:29)
[2021-06-04 09:37] LABS: HCT 27.7 % (37.2-46.3); MCH 30.8 pg (27.0-32.0); MCHC 32.5 g/dL (32.0-37.0); MCV 94.9 fL (80.0-97.0); Mean Platelet Volume 10.4 fL (9.5-12.2); NRBC Per 100 WBC 0.1 /100 WBCS (0.0-0.0); Platelet Count 192 X 10*3/uL (140-440); RBC 2.92 X 10*6/uL (4.10-5.20); RDW 13.5 % (11.5-14.5); WBC 23.13 X 10*3/uL (4.50-10.00)
[2021-06-04] MEDS: NYSTATIN 100,000 UNIT/GM OINT 30 GM TUBE TOPICAL SCH ×2 (09:40→20:32)
[2021-06-04 11:05] LABS: Basophils # (A) 0.04 X 10*3/uL (0.00-0.10); Basophils % (A) 0.2 %; Eosinophils # (A) 0.03 X 10*3/uL (0.04-0.35); Eosinophils % (A) 0.1 %; Immature Grans, Automated 1.8 %; Lymphocytes # (A) 1.38 X 10*3/uL (0.90-5.00); Monocytes # (A) 2.05 X 10*3/uL (0.20-1.00); Monocytes % (A) 8.9 %; Neutrophils # (A) 19.22 X 10*3/uL (1.80-7.70)
[2021-06-04 11:20] LABS: Glucose,Whole Blood 111 mg/dL (75-99)
[2021-06-04] MEDS ORDERED: POTASSIUM CHLORIDE ER 20 MEQ TAB.ER PO STA (11:36)
[2021-06-04 16:13] LABS: Glucose,Whole Blood 129 mg/dL (75-99)
--- NOTE | 2021-06-04 16:46 | P.PN ---
Subjective Progress Note Date: 06/04/21 This is a 65-year-old female patient of Dr. Leblanc who presented for an elective L2 to S1 decompression fusion. Patient has a long-standing history of chronic back pain and was found to have L2 to S1 severe stenosis L2 to S1 spondylosis resulting in left lower extremity weakness low back pain and radiculopathy. Patient has failed outpatient conservative management and pain control. She has past medical history of degenerative disc disease with history of lumbar laminectomy and stimulator placement for pain management. Additional medical history includes insulin-dependent diabetes mellitus, hypertension, hyperlipidemia and post polio syndrome. Patient is currently postop day 1. Patient is resting comfortably in bed. Patient reports improvement with lower extremity weakness and pain but does report she's been having issues with diarrhea since [facility] facility. At this time will order C. diff sample. Patient also has low potassium of 3.2 ordered replacement protocol. Patient also placed on sliding scale insulin coverage along with her home dose of long-acting insulin. At this time patient denies chest pain or shortness of breath. Patient denies nausea vomiting or diarrhea. Patient denies any urinary burning or frequency On 06/04/2021 patient was seen and examined on the medical floor she is alert and oriented 3 in no apparent distress she had episodes of nausea and vomiting during last night and is receiving Zofran and Compazine as needed she is also complaining of pain in the lower back otherwise she denies any complaints there is no fever or chills no headache or dizziness no chest pain no shortness of breath no cough no abdominal pain no diarrhea and no urinary symptoms Objective - Vital Signs Vital signs: Vital Signs Temp 97.4 F L 06/04/21 14:21 Pulse 102 H 06/04/21 14:21 Resp 18 06/04/21 14:21 BP 133/74 06/04/21 14:21 Pulse Ox 95 06/04/21 14:21 Intake & Output 06/03/21 06/04/21 06/04/21 18:59 06:59 18:59 Intake Total 720 Output Total 450 720 800 Balance 270 -720 -800 Intake: Oral 720 Output: Drainage 170 Right Lower Back 170 Urine 450 550 800 Uretheral (Ye) 450 Other: Voiding Method Indwelling Catheter Indwelling Catheter Indwelling Catheter # Bowel Movements 1 - Exam Head normocephalic and atraumatic Neck supple no JVD Lungs clear to auscultation bilaterally no wheezing or crackles Heart regular rate and rhythm S1-S2, no rub or gallop Abdomen is soft nontender nondistended positive bowel sounds no hepatosplenomegaly Extremities no edema Neuro alert and orientated to 3 - Labs CBC & Chem 7: 06/04/21 04:27 06/04/21 04:27 Labs: Abnormal Lab Results - Last 24 Hours (Table) 06/03/21 06/03/21 06/04/21 Range/Units 16:32 21:04 04:27 WBC 23.13 H (4.50-10.00) X 10*3/uL RBC 2.92 L (4.10-5.20) X 10*6/uL Hgb 9.0 L (12.0-15.0) g/dL Hct 27.7 L (37.2-46.3) % Absolute Nucleated RBC 0.02 H (0.00-0.00) X 10*3/uL Immature Gran # 0.41 H (0.00-0.04) X 10*3/uL Neutrophils # 19.22 H (1.80-7.70) X 10*3/uL Monocytes # 2.05 H (0.20-1.00) X 10*3/uL Eosinophils # 0.03 L (0.04-0.35) X 10*3/uL NRBC/100 WBC Diff 0.1 H (0.0-0.0) /100 WBCS Potassium (3.5-5.5) mmol/L Carbon Dioxide (20.0-27.5) mmol/L BUN/Creatinine Ratio (12.00-20.00) Ratio Glucose (70-110) mg/dL POC Glucose (mg/dL) 254 H 329 H (75-99) mg/dL AST (13-35) U/L ALT (8-44) U/L Total Protein (6.2-8.2) g/dL Albumin (3.8-4.9) g/dL 06/04/21 06/04/21 06/04/21 Range/Units 04:27 06:59 11:18 WBC (4.50-10.00) X 10*3/uL RBC (4.10-5.20) X 10*6/uL Hgb (12.0-15.0) g/dL Hct (37.2-46.3) % Absolute Nucleated RBC (0.00-0.00) X 10*3/uL Immature Gran # (0.00-0.04) X 10*3/uL Neutrophils # (1.80-7.70) X 10*3/uL Monocytes # (0.20-1.00) X 10*3/uL Eosinophils # (0.04-0.35) X 10*3/uL NRBC/100 WBC Diff (0.0-0.0) /100 WBCS Potassium 3.4 L (3.5-5.5) mmol/L Carbon Dioxide 19.2 L (20.0-27.5) mmol/L BUN/Creatinine Ratio 26.43 H (12.00-20.00) Ratio Glucose 133 H (70-110) mg/dL POC Glucose (mg/dL) 124 H 111 H (75-99) mg/dL AST 124 H (13-35) U/L ALT 54 H (8-44) U/L Total Protein 5.2 L (6.2-8.2) g/dL Albumin 3.4 L (3.8-4.9) g/dL 06/04/21 Range/Units 16:12 WBC (4.50-10.00) X 10*3/uL RBC (4.10-5.20) X 10*6/uL Hgb (12.0-15.0) g/dL Hct (37.2-46.3) % Absolute Nucleated RBC (0.00-0.00) X 10*3/uL Immature Gran # (0.00-0.04) X 10*3/uL Neutrophils # (1.80-7.70) X 10*3/uL Monocytes # (0.20-1.00) X 10*3/uL Eosinophils # (0.04-0.35) X 10*3/uL NRBC/100 WBC Diff (0.0-0.0) /100 WBCS Potassium (3.5-5.5) mmol/L Carbon Dioxide (20.0-27.5) mmol/L BUN/Creatinine Ratio (12.00-20.00) Ratio Glucose (70-110) mg/dL POC Glucose (mg/dL) 129 H (75-99) mg/dL AST (13-35) U/L ALT (8-44) U/L Total Protein (6.2-8.2) g/dL Albumin (3.8-4.9) g/dL Assessment and Plan Assessment: 1. History of L2 to S1 severe stenosis, L2 to S1 spondylosis. status post L2 to S1 decompression fusion with Dr. Mcdonough. Patient is currently postop day 1 2. History of right lower extremity weakness and right lower extremity radiculopathy and chronic back pain secondary to above 3. History of insulin-dependent diabetes mellitus. Patient maintained on long- acting insulin sliding scale coverage added 4. History of essential hypertension 5. History of hyperlipidemia 6. History of postpolio syndrome 7. History of degenerative disc disease with history of lumbar laminectomy stimulator placement for pain management 8. Hypokalemia. Replace per protocol 9. Diarrhea. Stool for C. diff ordered Thank you for this consultation we will follow patient closely throughout stay
[2021-06-04 20:18] LABS: Glucose,Whole Blood 129 mg/dL (75-99)
[2021-06-04] MEDS: ATORVASTATIN 40 MG TAB PO SCH (20:28)
[2021-06-04] MEDS: DULoxetine HCL 60 MG CAPSULE.DR PO SCH (20:29)
[2021-06-04] MEDS: amLODIPine 10 MG TAB PO SCH (20:29)
[2021-06-04] MEDS: INSULIN DETEMIR (LEVEMIR) 100 UNIT/ML SYR SQ SCH (20:32)
[2021-06-04] MEDS: MONTELUKAST 10 MG TAB PO SCH (20:32)
[2021-06-04] MEDS: CYCLOBENZAPRINE 5 MG TAB PO PRN (20:32)
[2021-06-05] MEDS: ACETAMINOPHEN TAB 500 MG TAB PO SCH (05:44)
[2021-06-05] MEDS: ONDANSETRON 4 MG/2 ML VIAL IVP PRN (06:15)
[2021-06-05 07:21] LABS: Glucose,Whole Blood 241 mg/dL (75-99)
[2021-06-05 07:25] LABS: Basophils # (A) 0.1 k/uL (0-0.2); Basophils % (A) 0 %; Eosinophils % (A) 0 %; HCT 27.8 % (34.0-46.0); Lymphocytes # (A) 1.3 k/uL (1.0-4.8); Lymphocytes % (A) 6 %; MCH 32.1 pg (25.0-35.0); MCHC 33.5 g/dL (31.0-37.0); MCV 95.9 fL (80.0-100.0); Mean Platelet Volume 8.9; Monocytes # (A) 1.1 k/uL (0-1.0); Monocytes % (A) 4 %; Neutrophils # (A) 21.6 k/uL (1.3-7.7); Neutrophils % (A) 89 %; Platelet Count 241 k/uL (150-450); RDW 13.7 % (11.5-15.5); WBC 24.3 k/uL (3.8-10.6)
[2021-06-05 07:30] LABS: ALT 47 U/L (4-34); AST 108 U/L (14-36); African American GFR (CKD) 72 (>60 ml/min/1.73 sqM); Albumin 2.6 g/dL (3.5-5.0); Albumin/Globulin Ratio 1.1; Alkaline Phosphatase 56 U/L (38-126); Anion Gap 11 mmol/L; Blood Urea Nitrogen 25 mg/dL (7-17); Calcium 8.7 mg/dL (8.4-10.2); Carbon Dioxide 23 mmol/L (22-30); Chloride 100 mmol/L (98-107); Globulin 2.4 g/dL; Glucose 196 mg/dL (74-99); Non-African American GFR(CKD) 63 (>60 ml/min/1.73 sqM); Potassium 3.1 mmol/L (3.5-5.1); Sodium 134 mmol/L (137-145); Total Bilirubin 0.8 mg/dL (0.2-1.3)
[2021-06-05 07:35] LABS: HGB 9.3 gm/dL (11.4-16.0)
[2021-06-05 07:44] LABS: ABG Base Excess -12.4 mmol/L; ABG HCO3 13 mmol/L (21-25); ABG Oxygen Saturation 98.8 % (94-97); ABG PCO2 20 mmHg (35-45); ABG PO2 152 mmHg (83-108); ABG TCO2 13 mmol/L (19-24)
[2021-06-05 07:59] LABS: INR 1.1 (<1.2); Partial Thromboplastin Time 25.1 sec (22.0-30.0); Prothrombin Time 12.1 sec (9.0-12.0)
--- NOTE | 2021-06-05 08:03 | P.PN ---
Subjective Progress Note Date: 06/05/21 Principal diagnosis: L2 to S1 spondylosis with stenosis L4-L5 grade 1 spondylolisthesis Patient seen and examined. A team was called this morning due to patient having nausea tachycardia and hypotension. A team response was excellent. We were able to rolon to patient bedside as well as we were running in the hospital. The patient on examination is able to perform sentences however she is very sedated feels ill appears ill is diaphoretic as well as tachypnea. Stat EKG shows sinus tachycardia with known bundle branch block. Patient on nonrebreather O2 sats in the 90s and high 90s. Stat labs as well as ABG pending. As long as patient is stable we will likely send down for stat CT chest for possible PE. Patient denies any lower leg symptoms or pain she denies any pain in the back of her knees. She states only that she is very nauseated and feels ill. She denies any fevers or chills overnight. She complains of some abdominal fullness however she is not rigid and has been passing gas. She denies any other symptoms other than pain in her back currently. Objective - Vital Signs Vital signs: Vital Signs Temp 98.0 F 06/05/21 01:57 Pulse 114 H 06/05/21 01:57 Resp 18 06/04/21 14:21 BP 125/66 06/05/21 01:57 Pulse Ox 92 L 06/05/21 01:57 Intake & Output 06/04/21 06/05/21 06/05/21 18:59 06:59 18:59 Intake Total 600 Output Total 1250 400 Balance -650 -400 Intake: IV 600 0.9 @ 50 600 Output: Drainage 150 Right Lower Back 150 Urine 1050 150 Emesis 200 100 Other: Voiding Method Indwelling Catheter Indwelling Catheter - Exam Exam repeated changes noted below. upon evaluation patient is in some distress at this time she is a nonrebreather and is breathing somewhat heavily however it is controlled she is able answer questions however she is somewhat sedated. She is diaphoretic on exam. She is able to move all 4 extremities with reasonable strength and no acute changes. Her tell allotment tree shows sinus tachycardia her blood pressure at this time is in the 1 teens over 80. According to a team it did drop earlier to around 70 systolic. She did receive some Percocet early this morning however she has been tolerating this previously not had any issues. She did solano the nausea overnight the nurse stated. She is on oral dexamethasone Compazine and Zofran for her nausea which does not seem to be helping her. Her drain has put out only 150 mL since yesterday. She has no hematoma. Dressing is clean and dry. She has been on fluids overnight as well. Patient is alert and oriented 3 appears well-nourished well-hydrated They do n ot appear septic. Lower extremities with 4/5 strength in all major muscle groups. Right lower e xtremity is still fairly weak in hip flexion however is getting better. Upper extremities show 4+/5 strength in all major muscle groups. [2]/4DTR all UE and LE b/l Patient shows a negative Homans, Ward's, negative Babinski's negative clonus bilaterally. negative straight leg raise bilaterally. No tensioning signs. Cranial nerves II through XII are grossly intact. There is FROM that is painless of the b/l UE and LE in all major joints [w/o pain]. They are intact to light touch sensation in L2 to S1 nerve distribution. Patient has palpable dorsalis pedis was posterior tibial pulses. Compartments are soft and compressible. Drain has 10 mL it was recently emptied - Constitutional General appearance: Present: cooperative - Labs CBC & Chem 7: 06/05/21 03:28 06/05/21 03:28 Labs: Abnormal Lab Results - Last 24 Hours (Table) 06/04/21 06/04/21 06/04/21 Range/Units 04:27 04:27 11:18 WBC 23.13 H (4.50-10.00) X 10*3/uL RBC 2.92 L (4.10-5.20) X 10*6/uL Hgb 9.0 L (12.0-15.0) g/dL Hct 27.7 L (37.2-46.3) % Absolute Nucleated RBC 0.02 H (0.00-0.00) X 10*3/uL Immature Gran # 0.41 H (0.00-0.04) X 10*3/uL Neutrophils # 19.22 H (1.80-7.70) X 10*3/uL Monocytes # 2.05 H (0.20-1.00) X 10*3/uL Eosinophils # 0.03 L (0.04-0.35) X 10*3/uL NRBC/100 WBC Diff 0.1 H (0.0-0.0) /100 WBCS ABG pCO2 (35-45) mmHg ABG pO2 (83-108) mmHg ABG HCO3 (21-25) mmol/L ABG Total CO2 (19-24) mmol/L ABG O2 Saturation (94-97) % Sodium (137-145) mmol/L Potassium 3.4 L (3.5-5.5) mmol/L Carbon Dioxide 19.2 L (20.0-27.5) mmol/L BUN (7-17) mg/dL BUN/Creatinine Ratio 26.43 H (12.00-20.00) Ratio Glucose 133 H (70-110) mg/dL POC Glucose (mg/dL) 111 H (75-99) mg/dL AST 124 H (13-35) U/L ALT 54 H (8-44) U/L Total Protein 5.2 L (6.2-8.2) g/dL Albumin 3.4 L (3.8-4.9) g/dL 06/04/21 06/04/21 06/05/21 Range/Units 16:12 20:16 03:28 WBC 24.3 H (4.50-10.00) X 10*3/uL RBC 2.90 L (4.10-5.20) X 10*6/uL Hgb 9.3 L D (12.0-15.0) g/dL Hct 27.8 L (37.2-46.3) % Absolute Nucleated RBC (0.00-0.00) X 10*3/uL Immature Gran # (0.00-0.04) X 10*3/uL Neutrophils # 21.6 H (1.80-7.70) X 10*3/uL Monocytes # 1.1 H (0.20-1.00) X 10*3/uL Eosinophils # (0.04-0.35) X 10*3/uL NRBC/100 WBC Diff (0.0-0.0) /100 WBCS ABG pCO2 (35-45) mmHg ABG pO2 (83-108) mmHg ABG HCO3 (21-25) mmol/L ABG Total CO2 (19-24) mmol/L ABG O2 Saturation (94-97) % Sodium (137-145) mmol/L Potassium (3.5-5.5) mmol/L Carbon Dioxide (20.0-27.5) mmol/L BUN (7-17) mg/dL BUN/Creatinine Ratio (12.00-20.00) Ratio Glucose (70-110) mg/dL POC Glucose (mg/dL) 129 H 129 H (75-99) mg/dL AST (13-35) U/L ALT (8-44) U/L Total Protein (6.2-8.2) g/dL Albumin (3.8-4.9) g/dL 06/05/21 06/05/21 06/05/21 Range/Units 03:28 07:14 07:40 WBC (4.50-10.00) X 10*3/uL RBC (4.10-5.20) X 10*6/uL Hgb (12.0-15.0) g/dL Hct (37.2-46.3) % Absolute Nucleated RBC (0.00-0.00) X 10*3/uL Immature Gran # (0.00-0.04) X 10*3/uL Neutrophils # (1.80-7.70) X 10*3/uL Monocytes # (0.20-1.00) X 10*3/uL Eosinophils # (0.04-0.35) X 10*3/uL NRBC/100 WBC Diff (0.0-0.0) /100 WBCS ABG pCO2 20 L (35-45) mmHg ABG pO2 152 H (83-108) mmHg ABG HCO3 13 L (21-25) mmol/L ABG Total CO2 13 L (19-24) mmol/L ABG O2 Saturation 98.8 H (94-97) % Sodium 134 L (137-145) mmol/L Potassium 3.1 L (3.5-5.5) mmol/L Carbon Dioxide (20.0-27.5) mmol/L BUN 25 H (7-17) mg/dL BUN/Creatinine Ratio (12.00-20.00) Ratio Glucose 196 H (70-110) mg/dL POC Glucose (mg/dL) 241 H (75-99) mg/dL AST 108 H (13-35) U/L ALT 47 H (8-44) U/L Total Protein 5.0 L (6.2-8.2) g/dL Albumin 2.6 L (3.8-4.9) g/dL Assessment and Plan Assessment: 65-year-old female postop day 3 L2 to S1 decompression fusion 1. L2-S1 severe stenosis 2.L2-S1 spondylosis 3. right lower extremity weakness 4. right lower extremity radiculopathy 5. L2-3 large HNP with sequestration 6. Mechanical low back pain 7. Acute respiratory distress 8. Tachycardia with hypotension 9. Nausea Plan: -Appreciate consultant [employer] vice president [employer] (ex ) and team management. -Activity: Ambulate QID, OOB all meals, up and about, limit lifting bending twisting to less than 5 lbs. Use walker or cane if needed for stability. -Daily PT/OT, increase ambulation strength and balance. -No braces needed -Pain control: Adequate at this time -Meds: reviewed, cont with zofran and compazine for nausea. Pt on dexamethasone as well PO, not ideal for fusion and healing purposes but OK for need of antinausea. -GI ppx: senna, Miralax -DC stacy when up and about, bedside commode if needed -DVT PPX: Heparin SQ; TEDs; SCDs; Early ambulation -Hygiene: Shower OK. Maintain dressing clean and dry. Meticulous cleaning after BMs away from incision site -Drains: Maintain for now. Record output -Encourage IS 10x/hr - Stat Labs, ABG pending, likely stat CT chest needed. She is OK for full anticoagulation if required. Monitor drains and neurochecks q2h if this is necessary. -Dispo: Pending Time with Patient: Greater than 30
[2021-06-05 08:22] LABS: Glucose,Whole Blood 228 mg/dL (75-99)
[2021-06-05] MEDS: INSULIN ASPART (NovoLOG) 100 UNIT/ML VIAL SQ SCH ×4 (08:26→21:56)
[2021-06-05] MEDS: GABAPENTIN 300 MG CAP PO SCH (08:27)
[2021-06-05] MEDS: CHOLECALCIFEROL 25 MCG (1000 IU) TABLET PO SCH (08:27)
[2021-06-05] MEDS: PANTOPRAZOLE 40 MG TABLET PO SCH (08:27)
[2021-06-05] MEDS: CYANOCOBALAMIN 500 MCG TAB PO SCH (08:27)
--- NOTE | 2021-06-05 08:27 | XR ---
EXAMINATION TYPE: XR chest 1V portable DATE OF EXAM: 06/05/2021 COMPARISON: 09/03/2018 HISTORY: Shortness of breath TECHNIQUE: Frontal and lateral views of the chest are obtained. FINDINGS: Scattered senescent parenchymal changes noted. Hyperinflation compatible with COPD. No evidence for infiltrate. No evidence for atelectasis. Heart size is stable. Mediastinal structures are stable and grossly unremarkable. No evidence for hilar prominence. Degenerative changes dorsal spine. IMPRESSION: 1. No evidence for acute pulmonary disease.
--- NOTE | 2021-06-05 08:28 | P.EN ---
A- team: Indication: tachycardia Arrived on Scene to find: Patient on non rebreath and lethargic Patient seen and examined at bedside. She complains of feeling short of breath, lightheaded and dizzy and like she is going to pass out. She denies overt chest discomfort complains of a rapid sensation over her upper abdominal area. She has been persistently nauseated since surgery. Vital signs reviewed General: ill appearing, moderate distress, appears at stated age Derm: warm, dry Head: atraumatic, normocephalic, symmetric Eyes: EOMI, no lid lag, anicteric sclera Cardiovascular: S1S2 tachycardiac, no murmur, positive posterior tibial pulse bilateral, Lungs: Decreased bs bilateral], no rhonchi, no rales , no accessory muscle use Abdominal: soft, nontender to palpation, no guarding, no appreciable organomegaly Psych: lethargic, falt affect Assessment: Hypoxia Sinus tachycardia with known RBBB s/p L2-S1 decompression and fusion Plan: EKG- sinus tachycardia with RBBB ABG- compensated metabolic acidosis Disposition: transfer to CXR- NAP on bedside review KUB due to nausea CTA chest to ruleout PE 1L bolus stat- CBC, BMP, tropin, pt/ptt BS at bedside 241 Notified: Dr. Dunn arrived at bedside. A Total of 37 minutes of critical care time was spent on the complex care of this patient.
--- NOTE | 2021-06-05 08:29 | XR ---
EXAMINATION TYPE: XR KUB DATE OF EXAM: 06/05/2021 COMPARISON: NONE HISTORY: Pain TECHNIQUE: Single supine KUB image of the abdomen is obtained FINDINGS: Mild distention of small bowel without dilated bowel seen. Paucity of air within the colon. Correlate for possible ileus. Follow-up advised. Gas and fecal material is seen in non-distended colon. No convincing evidence for pneumoperitoneum. No unusual calcifications. The lung bases are clear. The osseous structures are intact. IMPRESSION: 1. Nonspecific nonobstructive bowel gas pattern.
--- NOTE | 2021-06-05 08:35 | CT ---
EXAMINATION TYPE: CT chest angio for PE DATE OF EXAM: 06/05/2021 COMPARISON: CT dated 06/09/2019 HISTORY: hypoxia CT DLP: 580.2 mGycm Automated exposure control for dose reduction was used. CONTRAST: CT Chest for pulmonary embolism performed with with IV Contrast, patient injected with 100 mL of Isov ue 370. FINDINGS: Artifactual images. No filling defect within the pulmonary trunk, main pulmonary artery or proximal s egmental arteries. Distal segmental and subsegmental arteries are suboptimally assessed due to artifa cts. The pulmonary trunk measures 2.1 cm. No gross cardiomegaly. Arterial atherosclerotic calcificati ons. Marked dilatation of the thoracic esophagus as well as the gastroesophageal junction and the visualiz ed portion of the stomach. The underlying etiology is not clear and gastric or bowel obstruction ludin ot be excluded, please correlate clinically. The patient may benefit from an NG tube. A left central venous line is seen with the tip seen at the atriocaval junction. Expiratory exposure. Small bilateral pleural effusions with adjacent subsegmental pulmonary atelectas is. Lingular atelectasis also noted. Emphysematous changes are seen in the upper lung lobes. Stable 2 tiny nodules in the left lung apex measuring up to 3 mm. No pathologically enlarged lymph nodes in t he chest. No other upper abdominal abnormality. Sternotomy wire sutures. Spinal catheter is noted. No aggressive bone lesion. IMPRESSION: 1. No major or central pulmonary embolism with the limitation of the artifactual images. 2. Markedly dilated esophagus, gastroesophageal junction and visualized portion of the stomach. Gastr ic or bowel obstruction cannot be excluded. The patient may benefit from an NG tube. Further CT asses sment of the abdomen can be also considered if clinically required. Other incidental findings as desc ribed above.
[2021-06-05] MEDS ORDERED: SODIUM CHLORIDE 0.9% 1,000 ML IV ONE ×2 (08:46→09:13)
[2021-06-05] MEDS ORDERED: BENZOCAINE SPRAY 1 CAN MUCOUS MEM PRN (08:47)
--- NOTE | 2021-06-05 09:41 | P.CRDCN ---
History of Present Illness Consult date: 06/05/21 History of present illness: This is a 65-year-old female with history of coronary artery disease with previous bypass surgery done about 8 years ago, hypertension and also diabetes has undergone elective L2 to S1 decompression, fusion on the patient was having extreme weakness and low back pain and retinopathy prior to surgery. Apparently she hasn't had any cardiac follow-up for the last one year. Patient apparently became hypotensive this morning and was attended by A team. Patient had chest x-ray which did not reveal any acute abnormality. However, computed tomography scan of the chest was suggestive of gastric obstruction with a distended stomach and esophagus. Subsequently, patient had an NG tube which seemed to be draining a lot of dark colored fluid suggestive of GI bleeding. Patient is giving bolus of IV fluid. At the time of my examination, she is not complaining of any chest pain. Denies any shortness of breath. Hemoglobin is about 9. Most probably, this will come down after the hydration. Patient most probably need some blood transfusion. Her EKGs showed basically sinus rhythm with evidence of right bundle-branch block pattern with a nonspecific ST-T changes. We'll continue current management with IV fluids and possibly blood transfusion. Patient may need a close monitoring. I'll get an echocardiogram done. Further examination depend upon the clinical course. One set of troponin came back as 0.083. We'll wait for the rest of the readings. Most probably the troponin is elevated because of hypotension and hemodynamic compromise. Because of GI bleeding, patient is not a candidate for antiplatelet and anticoagulant therapy. Review of Systems As per the chart Past Medical History Past Medical History: Atrial Fibrillation, Coronary Artery Disease (CAD), COPD, Diabetes Mellitus, GERD/Reflux, Hyperlipidemia Additional Past Medical History / Comment(s): post polio syndrome, neuropathy, hx. spontaneous pneumothorax, recent diarrhea, bowel resecction for sepsis/infection History of Any Multi-Drug Resistant Organisms: C-DIFF Date of last positivie culture/infection: 2013 MDRO Source:: stool Past Surgical History: Back Surgery, Bowel Resection, Cholecystectomy, Coronary Bypass/CABG, Ear Surgery, Tonsillectomy Additional Past Surgical History / Comment(s): triple bypass 2013, left salpingo-oophorectomy, laminectomy L4 L5, ear surgery x 3 Past Anesthesia/Blood Transfusion Reactions: No Reported Reaction Past Psychological History: No Psychological Hx Reported Smoking Status: Former smoker Past Alcohol Use History: None Reported Additional Past Alcohol Use History / Comment(s): quit smoking 2009, 1ppd since age of 15 Past Drug Use History: None Reported - Past Family History Mother Family Medical History: Cancer Medications and Allergies Home Medications Medication Instructions Recorded Confirmed Type Atorvastatin [Lipitor] 40 mg PO HS 03/23/16 06/02/21 History DULoxetine HCL [Cymbalta] 60 mg PO HS 03/23/16 06/02/21 History Metoprolol Tartrate [Lopressor] 50 mg PO BID 03/23/16 06/01/21 History Omeprazole [PriLOSEC] 20 mg PO DAILY 03/23/16 06/02/21 History Insulin Glargine,Hum.rec.anlog 40 unit SQ HS 05/18/21 06/02/21 History [Lantus Solostar Pen] Lisinopril [Prinivil] 10 mg PO DAILY 05/18/21 06/01/21 History Montelukast [Singulair] 10 mg PO HS 05/18/21 06/01/21 History Ubidecarenone [Co Q-10] 100 mg PO DAILY 05/18/21 06/01/21 History amLODIPine [Norvasc] 10 mg PO HS 05/18/21 06/01/21 History Cyanocobalamin [Vitamin B-12] 1,000 mcg PO DAILY tab 05/22/21 06/01/21 Rx Gabapentin 600 mg PO BID 3 Days #6 tab 05/22/21 06/01/21 Rx INSULIN ASPART (NovoLOG) [NovoLOG 0 unit SQ ACHS ml 05/22/21 06/02/21 Rx (formulary)] oxyCODONE-APAP 10-325MG [Percocet 1 each PO Q6HR PRN 3 Days #12 tab 05/22/21 06/01/21 Rx 10-325 mg] Cholecalciferol [Vitamin D3 (25 25 mcg PO DAILY 06/01/21 06/01/21 History Mcg = 1000 Iu)] Dexamethasone [Decadron] 4 mg PO DAILY 06/01/21 06/01/21 History Tums(Dose Unknown) 1 tab PO DIRECTED PRN 06/01/21 06/01/21 History Allergies Allergy/AdvReac Type Severity Reaction Status Date / Time morphine Allergy rash,itchin Verified 06/02/21 06:58 g Sulfa (Sulfonamide Allergy Rash/Hives Verified 06/02/21 06:58 Antibiotics) Physical Exam Vitals: Vital Signs Temp Pulse Pulse Resp BP Pulse Ox 06/05/21 09:29 87 20 74/45 100 06/05/21 09:20 80 20 64/41 94 L 06/05/21 09:08 104 H 24 62/46 90 L 06/05/21 08:45 94 18 60/42 92 L 06/05/21 08:35 150 H 30 H 77/46 80 L 06/05/21 07:15 70/42 98 06/05/21 07:00 122 H 74/52 81 L 06/05/21 01:57 98.0 F 114 H 125/66 92 L 06/04/21 19:56 98.6 F 109 H 130/73 94 L 06/04/21 14:21 97.4 F L 102 H 18 133/74 95 Intake and Output 06/04/21 06/05/21 06/05/21 22:59 06:59 14:59 Intake Total 600 Output Total 251 403 9134 Balance 280 -1999 Intake: IV 600 0.9 @ 50 600 Output: Gastric Drainage 2000 Drainage 120 30 Right Lower Back 120 30 Urine 250 150 Emesis 200 100 Other: Voiding Method Indwelling Catheter GENERAL EXAM: Patient is alert and oriented and appears to be in moderate distress HEENT: Normocephalic. Normal reaction of pupils, equal size, normal range of extraocular motion. No erythema or exudates in the throat. NECK: No masses, no nuchal rigidity. CHEST: No chest wall deformity. LUNGS: Equal air entry with no crackles or wheeze. HEART: S1 and S2 normal with no audible mumurs or gallops. Regular rhythm, fem orals equal on both sides.. ABDOMEN: No hepatosplenomegaly, normal bowel sounds, no guarding or rigidity. SKIN: No rashes CENTRAL NERVOUS SYSTEM: No focal deficits. EXTREMITIES: No cyanosis, clubbing or edema. Results 06/05/21 03:28 06/05/21 03:28 Cardiac Enzymes 06/04/21 06/05/21 06/05/21 Range/Units 18:37 03:28 07:38 AST 108 H (14-36) U/L Troponin I 0.023 0.083 H* (0.000-0.034) ng/mL Coagulation 06/05/21 Range/Units 07:38 PT 12.1 H (9.0-12.0) sec APTT 25.1 (22.0-30.0) sec CBC 06/04/21 06/05/21 Range/Units 04:27 03:28 WBC 23.13 H 24.3 H (4.50-10.00) X 10*3/uL RBC 2.92 L 2.90 L (4.10-5.20) X 10*6/uL Hgb 9.0 L 9.3 L D (12.0-15.0) g/dL Hct 27.7 L 27.8 L (37.2-46.3) % Plt Count 192 241 (140-440) X 10*3/uL Comprehensive Metabolic Panel 06/05/21 Range/Units 03:28 Sodium 134 L (137-145) mmol/L Potassium 3.1 L (3.5-5.1) mmol/L Chloride 100 (98-107) mmol/L Carbon Dioxide 23 (22-30) mmol/L BUN 25 H (7-17) mg/dL Creatinine 0.95 (0.52-1.04) mg/dL Glucose 196 H (74-99) mg/dL Calcium 8.7 (8.4-10.2) mg/dL AST 108 H (14-36) U/L ALT 47 H (4-34) U/L Alkaline Phosphatase 56 (38-126) U/L Total Protein 5.0 L (6.3-8.2) g/dL Albumin 2.6 L (3.5-5.0) g/dL Current Medications Generic Name Dose Route Start Last Admin Trade Name Freq PRN Reason Stop Dose Admin Acetaminophen 1,000 mg 06/02/21 18:00 06/05/21 05:44 Acetaminophen Tab 500 Mg Tab PO 1,000 mg Q6HR [facility] Administration Al Hydroxide/Mg Hydroxide 30 ml 06/02/21 16:35 Mag Hydrox/Al Hydrox/Simeth 30 Ml Cup PO Q4HR PRN Indigestion Amlodipine Besylate 10 mg 06/02/21 21:00 06/04/21 20:29 Amlodipine 10 Mg Tab PO 10 mg HS [facility] Administration Atorvastatin Calcium 40 mg 06/02/21 21:00 06/04/21 20:28 Atorvastatin 40 Mg Tab PO 40 mg HS [facility] Administration Benzocaine 1 spray 06/05/21 08:47 Benzocaine [place] 1 Can MUCOUS MEM QID PRN Mouth Irritation Protocol Bisacodyl 10 mg 06/02/21 16:35 Bisacodyl 10 Mg Supp RECTAL DAILY PRN Constipation Calcium Carbonate/Glycine 500 mg 06/02/21 18:57 06/04/21 08:58 Calcium Carbonate 500 Mg Chewable PO 500 mg Q4H PRN Administration Heartburn Cholecalciferol 25 mcg 06/03/21 09:00 06/05/21 08:27 Cholecalciferol 25 Mcg (1000 Iu) Tablet PO 25 mcg DAILY [facility] Administration Cyanocobalamin 1,000 mcg 06/03/21 09:00 06/05/21 08:27 Cyanocobalamin 500 Mcg Tab PO 1,000 mcg DAILY [facility] Administration Cyclobenzaprine HCl 5 mg 06/02/21 16:35 06/04/21 20:32 Cyclobenzaprine 5 Mg Tab PO 5 mg TID PRN Administration Muscle Spasm Dexamethasone 4 mg 06/03/21 09:00 06/04/21 09:34 Dexamethasone 4 Mg Tab PO 4 mg DAILY [facility] Administration Duloxetine HCl 60 mg 06/02/21 21:00 06/04/21 20:29 Duloxetine Hcl 60 Mg Capsule.Dr PO 60 mg HS [facility] Administration Gabapentin 600 mg 06/02/21 21:00 06/05/21 08:27 Gabapentin 300 Mg Cap PO 600 mg BID [facility] Administration Hydromorphone HCl 0.5 mg 06/02/21 16:35 Hydromorphone 1 Mg/Ml 1 Ml Syringe IVP Q3HR PRN Pain Scale 4 - 6 Hydromorphone HCl 1 mg 06/02/21 16:35 06/04/21 17:24 Hydromorphone 1 Mg/Ml 1 Ml Syringe IVP 1 mg Q3HR PRN Administration Pain Scale of 7 - 10 Sodium Chloride 1,000 mls @ 999 mls/hr 06/05/21 08:46 06/05/21 08:52 Saline 0.9% IV 06/05/21 09:46 999 mls/hr .Q1H1M ONE Administration Sodium Chloride 1,000 mls @ 999 mls/hr 06/05/21 09:13 Saline 0.9% IV 06/05/21 10:13 .Q1H1M ONE Insulin Aspart 0 unit 06/03/21 12:30 06/05/21 08:26 Insulin Aspart (Novolog) 100 Unit/Ml Vial SQ 3 unit ACHS [facility] Administration Protocol Insulin Detemir 40 unit 06/02/21 21:00 06/04/21 20:32 Insulin Detemir (Levemir) 100 Unit/Ml Syr SQ 40 unit HS [facility] Administration Lisinopril 10 mg 06/03/21 09:00 06/04/21 09:34 Lisinopril 10 Mg Tab PO 10 mg DAILY [facility] Administration Magnesium Hydroxide 2,400 mg 06/02/21 16:35 Magnesium Hydroxide 2,400 Mg/10 Ml Cup PO DAILY PRN Constipation Metoprolol Tartrate 50 mg 06/02/21 21:00 06/04/21 20:32 Metoprolol Tartrate 50 Mg Tab PO 50 mg BID [facility] Administration Miscellaneous Information 1 each 06/03/21 11:00 Potassium Replacement Protocol 1 Each Misc MISCELLANE DAILY PRN Per Protocol Protocol Montelukast Sodium 10 mg 06/02/21 21:00 06/04/21 20:32 Montelukast 10 Mg Tab PO 10 mg HS [facility] Administration Nystatin 1 applic 06/02/21 21:00 06/04/21 20:32 Nystatin 100,000 Unit/Gm Oint 30 Gm Tube TOPICAL 1 applic BID [facility] Administration Protocol Ondansetron HCl 4 mg 06/02/21 16:35 06/05/21 06:15 Ondansetron 4 Mg/2 Ml Vial IVP 4 mg Q8HR PRN Administration Nausea And Vomiting Oxycodone HCl 5 mg 06/02/21 16:35 Oxycodone Hcl 5 Mg Tab PO Q4HR PRN Pain Scale 4 - 6 Oxycodone HCl 10 mg 06/02/21 16:35 06/05/21 05:44 Oxycodone Hcl 5 Mg Tab PO 10 mg Q4HR PRN Administration Pain Scale 7 - 10 Pantoprazole Sodium 40 mg 06/06/21 09:00 Pantoprazole 40 Mg/10 Ml Vial IVP DAILY [facility] Prochlorperazine Edisylate 5 mg 06/04/21 04:45 06/04/21 15:10 Prochlorperazine Inj 10 Mg/2 Ml Vial IVP 5 mg Q6HR PRN Administration Nausea And Vomiting Senna/Docusate Sodium 2 each 06/02/21 16:35 Sennosides-Docusate Sodium 1 Each Tab PO DAILY PRN Constipation Sodium Biphosphate/Sodium Phosphate 133 ml 06/02/21 16:35 Na Phos,M-B/Na Phos,Di-Ba 133 Ml Enema RECTAL DAILY PRN Constipation Intake and Output 06/04/21 06/05/21 06/05/21 22:59 06:59 14:59 Intake Total 600 Output Total 054 628 0395 Balance 30 -280 -2000 Intake: IV 600 0.9 @ 50 600 Output: Gastric Drainage 1999 Drainage 120 30 Right Lower Back 120 30 Urine 250 150 Emesis 200 100 Other: Voiding Method Indwelling Catheter 06/05/21 03:28 06/05/21 03:28 EKG Interpretations (text) Sinus rhythm with evidence of right bundle-branch block Assessment and Plan (1) Hypotension Current Visit: Yes Status: Acute Code(s): I95.9 - HYPOTENSION, UNSPECIFIED SNOMED Code(s): 69058250 (2) Post-operative nausea and vomiting Current Visit: Yes Status: Acute Code(s): R11.2 - NAUSEA WITH VOMITING, UNSPECIFIED; Z98.890 - OTHER SPECIFIED POSTPROCEDURAL STATES SNOMED Code(s): 4946993 (3) S/P lumbar fusion Current Visit: Yes Status: Acute Code(s): Z98.1 - ARTHRODESIS STATUS SNOMED Code(s): 05345432426191 (4) Spinal stenosis of lumbar region Current Visit: Yes Status: Acute Code(s): M48.061 - SPINAL STENOSIS, LUMBAR REGION WITHOUT NEUROGENIC CONNIE SNOMED Code(s): 09146461 (5) Gastric outflow obstruction Current Visit: Yes Status: Acute Code(s): K31.1 - ADULT HYPERTROPHIC PYLORIC STENOSIS SNOMED Code(s): 149845313 (6) GI bleeding Current Visit: Yes Status: Acute Code(s): K92.2 - GASTROINTESTINAL HEMORRHAGE, UNSPECIFIED SNOMED Code(s): 17739224 (7) History of coronary artery bypass graft Current Visit: Yes Status: Acute Code(s): Z95.1 - PRESENCE OF AORTOCORONARY BYPASS GRAFT SNOMED Code(s): 164117993 (8) History of hypertension Current Visit: Yes Status: Acute Code(s): Z86.79 - PERSONAL HISTORY OF OTHER DISEASES OF THE CIRCULATORY SYSTEM SNOMED Code(s): 656648041 Plan: Patient is a acutely hypotensive because of GI bleeding associated with gastric distention and possible obstruction. Not having any chest pain. EKG did not reveal any acute changes. Mildly abnormal troponin. Could be related to hemodynamic compromise and hypotension. We will get an echocardiogram to assess LV function. Continue current measures with fluid replacement and possibly blood transfusion. Further recommendations depend upon the clinical course. Consider GI evaluation
[2021-06-05] MEDS: lisinopriL 10 MG TAB PO SCH (10:18)
[2021-06-05] MEDS: METOPROLOL TARTRATE 50 MG TAB PO SCH (10:18)
[2021-06-05] MEDS: SODIUM CHLORIDE 0.9% 1,000 ML IV SCH ×2 (10:19→18:30)
[2021-06-05] MEDS: NYSTATIN 100,000 UNIT/GM OINT 30 GM TUBE TOPICAL SCH ×2 (10:19→23:42)
[2021-06-05] MEDS: dexAMETHasone 4 MG TAB PO SCH (10:19)
[2021-06-05] MEDS ORDERED: Potassium Replacement Protocol 1 EACH MISC MISCELLANE PRN (10:29)
--- NOTE | 2021-06-05 10:31 | P.PN ---
Subjective Progress Note Date: 06/05/21 This is a 65-year-old female patient of Dr. Leblanc who presented for an elective L2 to S1 decompression fusion. Patient has a long-standing history of chronic back pain and was found to have L2 to S1 severe stenosis L2 to S1 spondylosis resulting in left lower extremity weakness low back pain and radiculopathy. Patient has failed outpatient conservative management and pain control. She has past medical history of degenerative disc disease with history of lumbar laminectomy and stimulator placement for pain management. Additional medical history includes insulin-dependent diabetes mellitus, hypertension, hyperlipidemia and post polio syndrome. Patient is currently postop day 1. Patient is resting comfortably in bed. Patient reports improvement with lower extremity weakness and pain but does report she's been having issues with diarrhea since [facility] facility. At this time will order C. diff sample. Patient also has low potassium of 3.2 ordered replacement protocol. Patient also placed on sliding scale insulin coverage along with her home dose of long-acting insulin. At this time patient denies chest pain or shortness of breath. Patient denies nausea vomiting or diarrhea. Patient denies any urinary burning or frequency On 06/04/2021 patient was seen and examined on the medical floor she is alert and oriented 3 in no apparent distress she had episodes of nausea and vomiting during last night and is receiving Zofran and Compazine as needed she is also complaining of pain in the lower back otherwise she denies any complaints there is no fever or chills no headache or dizziness no chest pain no shortness of breath no cough no abdominal pain no diarrhea and no urinary symptoms On 06/05/2021 patient was and A-team this morning due to lethargy and tachycardia. Patient was also found to be hypotensive. CTA was performed at that time showing no signs of PE but marked dilated esophagus gastroesophageal junction visual portion of the stomach. Gastric bowel obstruction cannot be excluded. NG tube was placed and 2.5L of dark output was obtained. Cardiology service is consulted for tachycardia and elevated troponin. Upon examination patient was found to be alert and oriented but remained hypotensive with blood pressure in the 60s patient currently getting second liter bolus continue fluids at 120 critical care service is consulted. Patient has been moved higher level of care. Surgical services also consulted for possible obstruction. Computed tomography scan with contrast ordered. Objective - Vital Signs Vital signs: Vital Signs Temp 98.0 F 06/05/21 01:57 Pulse 85 06/05/21 09:45 Resp 20 06/05/21 09:45 BP 80/48 06/05/21 09:45 Pulse Ox 91 L 06/05/21 09:45 Intake & Output 06/04/21 06/05/21 06/05/21 18:59 06:59 18:59 Intake Total 600 Output Total 3507 544 9732 Balance -650 -400 -2650 Intake: IV 600 0.9 @ 50 600 Output: Gastric Drainage 2650 Drainage 150 Right Lower Back 150 Urine 1050 150 Emesis 200 100 Other: Voiding Method Indwelling Catheter Indwelling Catheter - Exam Head normocephalic and atraumatic Neck supple no JVD Lungs clear to auscultation bilaterally no wheezing or crackles Heart regular rate and rhythm S1-S2, no rub or gallop Abdomen is soft nontender nondistended positive bowel sounds no hepatosplenomegaly Extremities no edema Neuro alert and orientated to 3 - Labs CBC & Chem 7: 06/05/21 03:28 06/05/21 03:28 Labs: Abnormal Lab Results - Last 24 Hours (Table) 06/04/21 06/04/21 06/04/21 Range/Units 04:27 11:18 16:12 WBC (3.8-10.6) k/uL RBC (3.80-5.40) m/uL Hgb (11.4-16.0) gm/dL Hct (34.0-46.0) % Immature Gran # 0.41 H (0.00-0.04) X 10*3/uL Neutrophils # 19.22 H (1.80-7.70) X 10*3/uL Monocytes # 2.05 H (0.20-1.00) X 10*3/uL Eosinophils # 0.03 L (0.04-0.35) X 10*3/uL PT (9.0-12.0) sec ABG pCO2 (35-45) mmHg ABG pO2 (83-108) mmHg ABG HCO3 (21-25) mmol/L ABG Total CO2 (19-24) mmol/L ABG O2 Saturation (94-97) % Sodium (137-145) mmol/L Potassium (3.5-5.1) mmol/L BUN (7-17) mg/dL Glucose (74-99) mg/dL POC Glucose (mg/dL) 111 H 129 H (75-99) mg/dL AST (14-36) U/L ALT (4-34) U/L Troponin I (0.000-0.034) ng/mL Total Protein (6.3-8.2) g/dL Albumin (3.5-5.0) g/dL 06/04/21 06/05/21 06/05/21 Range/Units 20:16 03:28 03:28 WBC 24.3 H (3.8-10.6) k/uL RBC 2.90 L (3.80-5.40) m/uL Hgb 9.3 L D (11.4-16.0) gm/dL Hct 27.8 L (34.0-46.0) % Immature Gran # (0.00-0.04) X 10*3/uL Neutrophils # 21.6 H (1.80-7.70) X 10*3/uL Monocytes # 1.1 H (0.20-1.00) X 10*3/uL Eosinophils # (0.04-0.35) X 10*3/uL PT (9.0-12.0) sec ABG pCO2 (35-45) mmHg ABG pO2 (83-108) mmHg ABG HCO3 (21-25) mmol/L ABG Total CO2 (19-24) mmol/L ABG O2 Saturation (94-97) % Sodium 134 L (137-145) mmol/L Potassium 3.1 L (3.5-5.1) mmol/L BUN 25 H (7-17) mg/dL Glucose 196 H (74-99) mg/dL POC Glucose (mg/dL) 129 H (75-99) mg/dL AST 108 H (14-36) U/L ALT 47 H (4-34) U/L Troponin I (0.000-0.034) ng/mL Total Protein 5.0 L (6.3-8.2) g/dL Albumin 2.6 L (3.5-5.0) g/dL 06/05/21 06/05/21 06/05/21 Range/Units 07:14 07:38 07:38 WBC (3.8-10.6) k/uL RBC (3.80-5.40) m/uL Hgb (11.4-16.0) gm/dL Hct (34.0-46.0) % Immature Gran # (0.00-0.04) X 10*3/uL Neutrophils # (1.80-7.70) X 10*3/uL Monocytes # (0.20-1.00) X 10*3/uL Eosinophils # (0.04-0.35) X 10*3/uL PT 12.1 H (9.0-12.0) sec ABG pCO2 (35-45) mmHg ABG pO2 (83-108) mmHg ABG HCO3 (21-25) mmol/L ABG Total CO2 (19-24) mmol/L ABG O2 Saturation (94-97) % Sodium (137-145) mmol/L Potassium (3.5-5.1) mmol/L BUN (7-17) mg/dL Glucose (74-99) mg/dL POC Glucose (mg/dL) 241 H (75-99) mg/dL AST (14-36) U/L ALT (4-34) U/L Troponin I 0.083 H* (0.000-0.034) ng/mL Total Protein (6.3-8.2) g/dL Albumin (3.5-5.0) g/dL 06/05/21 06/05/21 Range/Units 07:40 08:20 WBC (3.8-10.6) k/uL RBC (3.80-5.40) m/uL Hgb (11.4-16.0) gm/dL Hct (34.0-46.0) % Immature Gran # (0.00-0.04) X 10*3/uL Neutrophils # (1.80-7.70) X 10*3/uL Monocytes # (0.20-1.00) X 10*3/uL Eosinophils # (0.04-0.35) X 10*3/uL PT (9.0-12.0) sec ABG pCO2 20 L (35-45) mmHg ABG pO2 152 H (83-108) mmHg ABG HCO3 13 L (21-25) mmol/L ABG Total CO2 13 L (19-24) mmol/L ABG O2 Saturation 98.8 H (94-97) % Sodium (137-145) mmol/L Potassium (3.5-5.1) mmol/L BUN (7-17) mg/dL Glucose (74-99) mg/dL POC Glucose (mg/dL) 228 H (75-99) mg/dL AST (14-36) U/L ALT (4-34) U/L Troponin I (0.000-0.034) ng/mL Total Protein (6.3-8.2) g/dL Albumin (3.5-5.0) g/dL Assessment and Plan Assessment: 1. History of L2 to S1 severe stenosis, L2 to S1 spondylosis. status post L2 to S1 decompression fusion with Dr. Mcdonough. Patient is currently postop day 1 2. History of right lower extremity weakness and right lower extremity radiculopathy and chronic back pain secondary to above 3. History of insulin-dependent diabetes mellitus. Patient maintained on long- acting insulin sliding scale coverage added 4. History of essential hypertension 5. History of hyperlipidemia 6. History of postpolio syndrome 7. History of degenerative disc disease with history of lumbar laminectomy stimulator placement for pain management 8. Hypokalemia. Replace per protocol 9. Diarrhea. Stool for C. diff ordered 10. Elevated troponin. Cardiology services consulted 11. Hypotension likely secondary from GI bleed and obstruction 12. GI obstruction with GI bleed. Surgical services consulted NG tube in place computed tomography scan with contrast ordered Patient moved to 3 S. for higher level of care Continue 2 L bolus Continue IV hydration Computed tomography scan of the abdomen ordered Cardiology and surgical service is consulted Critical care services also consulted for hypotension
[2021-06-05 11:19] LABS: Glucose,Whole Blood 180 mg/dL (75-99)
--- NOTE | 2021-06-05 11:58 | P.CNPUL ---
History of Present Illness Consult date: 06/05/21 Requesting physician: Jt Dunn Reason for consult: dyspnea, hypoxemia, other Chief complaint: Hypotension, and hypoxemic. History of present illness: Pulmonary consult dated 06/07/2021. 65-year-old female who had lumbar spine surgery, on June 02. The patient's surgery was done by Dr. Dunn. Apparently, the patient was up on the fourth floor, and early this morning, a rapid response was called on the patient, because of low blood pressure and low saturations. The patient was transferred to 3 S. Or recently, we will called by the 3 S. nurse, Ness, who states that the patient was still receiving high concentrations of oxygen, and her blood pressure was only about 65-70 systolic. We decided to transfer the patient to the intensive care unit. The patient currently has a partial rebreather in place, and saline running at 120 mL an hour. She did receive 3 L of fluid on the floor. She was too unstable with that blood pressure to go for a CAT scan of the abdomen. The primary service is thinking that the patient may have a bowel obstruction. Currently, her blood pressure is only 70/25. An NG tube was placed, and 2 half liters of dark material came out from the NG tube. The patient has a history of atrial fibrillation, CAD, COPD, diabetes, GERD, and hyperlipidemia. The patient apparently also has a history of post polio syndrome, spontaneous pneumothorax, and previous bowel resection. She's also had a triple bypass surgery back in 2013. She does have a history of previous tobacco use. Currently labs include a white count of 24.3, hemoglobin 9.3, he matocrit 27.8, platelet count 2 41,000. Blood gases show pO2 of 152, pCO2 of 20, and a pH is 7.40. This blood gases consistent with a severe metabolic acidosis. Sodium 134, potassium 3.1, chlorides 100, CO2 23, anion gap 11, BUN 25, creatinine 0.95. Troponin was 0.064. A abdominal film showed a nonspecific nonobstructive bowel gas pattern. A chest x-ray was normal. A CT angiogram was negative for pulmonary embolism. Review of Systems REVIEW OF SYSTEMS: CONSTITUTIONAL: [Negative.] NEUROLOGIC: [ Negative.] HEENT: [ Negative.] CARDIAC: Hypotension. PULMONARY: Shortness of breath, and hypoxemia. GI: Abdominal distention and pain. : [Negative.] RHEUMATOLOGIC: [ Negative.] IMMUNOLOGIC: [ Negative.] ENDOCRINE: [Negative. ] DERMATOLOGIC: [Negative.] Past Medical History Past Medical History: Atrial Fibrillation, Coronary Artery Disease (CAD), COPD, Diabetes Mellitus, GERD/Reflux, Hyperlipidemia Additional Past Medical History / Comment(s): post polio syndrome, neuropathy, hx. spontaneous pneumothorax, recent diarrhea, bowel resecction for sepsis/infection History of Any Multi-Drug Resistant Organisms: C-DIFF Date of last positivie culture/infection: 2013 MDRO Source:: stool Past Surgical History: Back Surgery, Bowel Resection, Cholecystectomy, Coronary Bypass/CABG, Ear Surgery, Tonsillectomy Additional Past Surgical History / Comment(s): triple bypass 2013, left salpingo-oophorectomy, laminectomy L4 L5, ear surgery x 3 Past Anesthesia/Blood Transfusion Reactions: No Reported Reaction Past Psychological History: No Psychological Hx Reported Smoking Status: Former smoker Past Alcohol Use History: None Reported Additional Past Alcohol Use History / Comment(s): quit smoking 2008, 1ppd since age of 15 Past Drug Use History: None Reported - Past Family History Mother Family Medical History: Cancer Medications and Allergies Home Medications Medication Instructions Recorded Confirmed Type Atorvastatin [Lipitor] 40 mg PO HS 03/23/16 06/02/21 History DULoxetine HCL [Cymbalta] 60 mg PO HS 03/23/16 06/02/21 History Metoprolol Tartrate [Lopressor] 50 mg PO BID 03/23/16 06/01/21 History Omeprazole [PriLOSEC] 20 mg PO DAILY 03/23/16 06/02/21 History Insulin Glargine,Hum.rec.anlog 40 unit SQ HS 05/18/21 06/02/21 History [Lantus Solostar Pen] Lisinopril [Prinivil] 10 mg PO DAILY 05/18/21 06/01/21 History Montelukast [Singulair] 10 mg PO HS 05/18/21 06/01/21 History Ubidecarenone [Co Q-10] 100 mg PO DAILY 05/18/21 06/01/21 History amLODIPine [Norvasc] 10 mg PO HS 05/18/21 06/01/21 History Cyanocobalamin [Vitamin B-12] 1,000 mcg PO DAILY tab 05/22/21 06/01/21 Rx Gabapentin 600 mg PO BID 3 Days #6 tab 05/22/21 06/01/21 Rx INSULIN ASPART (NovoLOG) [NovoLOG 0 unit SQ ACHS ml 05/22/21 06/02/21 Rx (formulary)] oxyCODONE-APAP 10-325MG [Percocet 1 each PO Q6HR PRN 3 Days #12 tab 05/22/21 06/01/21 Rx 10-325 mg] Cholecalciferol [Vitamin D3 (25 25 mcg PO DAILY 06/01/21 06/01/21 History Mcg = 1000 Iu)] Dexamethasone [Decadron] 4 mg PO DAILY 06/01/21 06/01/21 History Tums(Dose Unknown) 1 tab PO DIRECTED PRN 06/01/21 06/01/21 History Allergies Allergy/AdvReac Type Severity Reaction Status Date / Time morphine Allergy rash,itchin Verified 06/02/21 06:58 g Sulfa (Sulfonamide Allergy Rash/Hives Verified 06/02/21 06:58 Antibiotics) Physical Exam Osteopathic Statement: *. No significant issues noted on an osteopathic structural exam other than those noted in the History and Physical/Consult. Vitals: Vital Signs Temp Pulse Pulse Pulse Resp BP BP 06/05/21 11:30 86 23 85/39 06/05/21 11:15 97.5 F L 84 23 84/39 06/05/21 10:52 107 H 22 64/41 06/05/21 09:45 85 20 80/48 06/05/21 09:41 88 15 73/39 06/05/21 09:29 87 20 74/45 06/05/21 09:20 80 20 64/41 06/05/21 09:08 104 H 24 62/46 06/05/21 08:45 94 18 60/42 06/05/21 08:35 150 H 30 H 77/46 06/05/21 08:00 88 22 06/05/21 07:15 70/42 06/05/21 07:00 122 H 74/52 06/05/21 01:57 98.0 F 114 H 125/66 06/04/21 19:56 98.6 F 109 H 130/73 06/04/21 14:21 97.4 F L 102 H 18 133/74 Pulse Ox 06/05/21 11:30 95 06/05/21 11:15 100 06/05/21 10:52 89 L 06/05/21 09:45 91 L 06/05/21 09:41 100 06/05/21 09:29 100 06/05/21 09:20 94 L 06/05/21 09:08 90 L 06/05/21 08:45 92 L 06/05/21 08:35 80 L 06/05/21 08:00 06/05/21 07:15 98 06/05/21 07:00 81 L 06/05/21 01:57 92 L 06/04/21 19:56 94 L 06/04/21 14:21 95 Intake and Output 06/04/21 06/05/21 06/05/21 22:59 06:59 14:59 Intake Total 600 Output Total 213 830 8377 Balance 30 -280 -2650 Intake: IV 600 0.9 @ 50 600 Output: Gastric Drainage 2650 Drainage 120 30 Right Lower Back 120 30 Urine 250 150 Emesis 200 100 Other: Voiding Method Indwelling Catheter Indwelling Catheter No acute distress, oriented 3. Partial rebreather in place. Saturations are 95%. HEENT examination is grossly unremarkable. Neck supple. Full range of motion. No adenopathy thyromegaly or neck vein distention. A left sided double-lumen central line is noted. Cardiovascular examination reveals regular rhythm rate. S1-S2 normal. No S3 or S4. No discernible murmur noted. Heart sounds are distant. Heart rate 86 bpm. Lungs reveal mostly clear breath sounds. Mild scattered rhonchi. No wheezes or crackles. Abdomen is mildly distended with mild tenderness. No bowel sounds. No masses. Extremities are intact. No cyanosis clubbing or edema. Skin is without rash or lesion. Neurologic examination is brief but nonfocal. Results - Laboratory Findings CBC and BMP: 06/05/21 03:28 06/05/21 03:28 ABG ABG pH 7.40 (7.35-7.45) 06/05/21 07:40 ABG pCO2 20 mmHg (35-45) L 06/05/21 07:40 ABG pO2 152 mmHg (83-108) H 06/05/21 07:40 ABG O2 Saturation 98.8 % (94-97) H 06/05/21 07:40 PT/INR, D-dimer PT 12.1 sec (9.0-12.0) H 06/05/21 07:38 INR 1.1 (<1.2) 06/05/21 07:38 Abnormal lab findings: Abnormal Labs 06/02/21 06/02/21 06/02/21 07:27 07:55 10:07 WBC RBC Hgb Hct MCHC Absolute Nucleated RBC Immature Gran # Neutrophils # Monocytes # Eosinophils # NRBC/100 WBC Diff PT ABG pCO2 ABG pO2 ABG HCO3 ABG Total CO2 ABG O2 Saturation Sodium Potassium Carbon Dioxide BUN 24 H BUN/Creatinine Ratio Glucose POC Glucose (mg/dL) 136 H 107 H Calcium AST ALT Alkaline Phosphatase Troponin I Total Protein Albumin Globulin 06/02/21 06/02/21 06/02/21 13:10 15:12 17:51 WBC RBC Hgb Hct MCHC Absolute Nucleated RBC Immature Gran # Neutrophils # Monocytes # Eosinophils # NRBC/100 WBC Diff PT ABG pCO2 ABG pO2 ABG HCO3 ABG Total CO2 ABG O2 Saturation Sodium Potassium Carbon Dioxide BUN BUN/Creatinine Ratio Glucose POC Glucose (mg/dL) 126 H 125 H 105 H Calcium AST ALT Alkaline Phosphatase Troponin I Total Protein Albumin Globulin 06/02/21 06/03/21 06/03/21 20:37 04:43 04:43 WBC 15.52 H RBC 2.95 L Hgb 8.9 L Hct 27.9 L MCHC 31.9 L Absolute Nucleated RBC Immature Gran # 0.18 H Neutrophils # 12.64 H Monocytes # 1.44 H Eosinophils # 0.01 L NRBC/100 WBC Diff PT ABG pCO2 ABG pO2 ABG HCO3 ABG Total CO2 ABG O2 Saturation Sodium Potassium 3.2 L Carbon Dioxide 17.1 L BUN BUN/Creatinine Ratio 25.14 H Glucose 176 H POC Glucose (mg/dL) 106 H Calcium 8.1 L AST 114 H ALT Alkaline Phosphatase 39 L Troponin I Total Protein 4.6 L Albumin 3.2 L Globulin 1.3 L 06/03/21 06/03/21 06/03/21 06:55 11:34 16:32 WBC RBC Hgb Hct MCHC Absolute Nucleated RBC Immature Gran # Neutrophils # Monocytes # Eosinophils # NRBC/100 WBC Diff PT ABG pCO2 ABG pO2 ABG HCO3 ABG Total CO2 ABG O2 Saturation Sodium Potassium Carbon Dioxide BUN BUN/Creatinine Ratio Glucose POC Glucose (mg/dL) 133 H 357 H 254 H Calcium AST ALT Alkaline Phosphatase Troponin I Total Protein Albumin Globulin 06/03/21 06/04/21 06/04/21 21:04 04:27 04:27 WBC 23.13 H RBC 2.92 L Hgb 9.0 L Hct 27.7 L MCHC Absolute Nucleated RBC 0.02 H Immature Gran # 0.41 H Neutrophils # 19.22 H Monocytes # 2.05 H Eosinophils # 0.03 L NRBC/100 WBC Diff 0.1 H PT ABG pCO2 ABG pO2 ABG HCO3 ABG Total CO2 ABG O2 Saturation Sodium Potassium 3.4 L Carbon Dioxide 19.2 L BUN BUN/Creatinine Ratio 26.43 H Glucose 133 H POC Glucose (mg/dL) 329 H Calcium AST 124 H ALT 54 H Alkaline Phosphatase Troponin I Total Protein 5.2 L Albumin 3.4 L Globulin 06/04/21 06/04/21 06/04/21 06:59 11:18 16:12 WBC RBC Hgb Hct MCHC Absolute Nucleated RBC Immature Gran # Neutrophils # Monocytes # Eosinophils # NRBC/100 WBC Diff PT ABG pCO2 ABG pO2 ABG HCO3 ABG Total CO2 ABG O2 Saturation Sodium Potassium Carbon Dioxide BUN BUN/Creatinine Ratio Glucose POC Glucose (mg/dL) 124 H 111 H 129 H Calcium AST ALT Alkaline Phosphatase Troponin I Total Protein Albumin Globulin 06/04/21 06/05/21 06/05/21 20:16 03:28 03:28 WBC 24.3 H RBC 2.90 L Hgb 9.3 L D Hct 27.8 L MCHC Absolute Nucleated RBC Immature Gran # Neutrophils # 21.6 H Monocytes # 1.1 H Eosinophils # NRBC/100 WBC Diff PT ABG pCO2 ABG pO2 ABG HCO3 ABG Total CO2 ABG O2 Saturation Sodium 134 L Potassium 3.1 L Carbon Dioxide BUN 25 H BUN/Creatinine Ratio Glucose 196 H POC Glucose (mg/dL) 129 H Calcium AST 108 H ALT 47 H Alkaline Phosphatase Troponin I Total Protein 5.0 L Albumin 2.6 L Globulin 06/05/21 06/05/21 06/05/21 07:14 07:38 07:38 WBC RBC Hgb Hct MCHC Absolute Nucleated RBC Immature Gran # Neutrophils # Monocytes # Eosinophils # NRBC/100 WBC Diff PT 12.1 H ABG pCO2 ABG pO2 ABG HCO3 ABG Total CO2 ABG O2 Saturation Sodium Potassium Carbon Dioxide BUN BUN/Creatinine Ratio Glucose POC Glucose (mg/dL) 241 H Calcium AST ALT Alkaline Phosphatase Troponin I 0.083 H* Total Protein Albumin Globulin 06/05/21 06/05/21 06/05/21 07:40 08:20 10:23 WBC RBC Hgb Hct MCHC Absolute Nucleated RBC Immature Gran # Neutrophils # Monocytes # Eosinophils # NRBC/100 WBC Diff PT ABG pCO2 20 L ABG pO2 152 H ABG HCO3 13 L ABG Total CO2 13 L ABG O2 Saturation 98.8 H Sodium Potassium Carbon Dioxide BUN BUN/Creatinine Ratio Glucose POC Glucose (mg/dL) 228 H Calcium AST ALT Alkaline Phosphatase Troponin I 0.064 H* Total Protein Albumin Globulin 06/05/21 11:18 WBC RBC Hgb Hct MCHC Absolute Nucleated RBC Immature Gran # Neutrophils # Monocytes # Eosinophils # NRBC/100 WBC Diff PT ABG pCO2 ABG pO2 ABG HCO3 ABG Total CO2 ABG O2 Saturation Sodium Potassium Carbon Dioxide BUN BUN/Creatinine Ratio Glucose POC Glucose (mg/dL) 180 H Calcium AST ALT Alkaline Phosphatase Troponin I Total Protein Albumin Globulin - Diagnostic Findings Chest x-ray: image reviewed CT scan - chest: image reviewed Assessment and Plan Assessment: Rule out acute bowel obstruction. Hypotension, which may relate to underlying sepsis. Postop day #3, status post L2/S1 posterior lateral fusion, L2/S1 laminectomy, L2/L3 interbody fusion, L3/L4 interbody fusion, and L5/S1 interbody fusion, secondary to severe lumbar stenosis, radiculopathy, and spondylolisthesis. History of atrial fibrillation. History of CAD, status post bypass grafting, 2013. History of COPD, secondary to previous tobacco use. History of diabetes mellitus. History of gastroesophageal reflux disease. History of hyperlipidemia. History of postpolio syndrome. Prior history of bowel resection. History of spontaneous pneumothorax. Plan: Plan dated . The patient is seen in the intensive care unit, room 263. She is on a partial rebreather mask. Saturations are adequate. She's getting saline at 120 mL an hour. Blood pressure was only 70-75 systolic. I asked the nurses start norepinephrine. An NG tube was placed. 2 liters of brown material was noted to exit the NG tube. The patient will be going down for computed tomography scan of the abdomen, once her blood pressure is more stable. Additional recommendations and suggestions are forthcoming. Prognosis is guarded. Time with Patient: Greater than 30
[2021-06-05] MEDS: NOREPINEPHRINE 8 MG in SODIUM CHLORIDE 0.9% 250 ML IV SCH ×3 (12:06→21:56)
[2021-06-05] MEDS: POTASSIUM CHLORIDE 10 MEQ in WATER FOR INJECTION 1 100ML.BAG IVPB SCH ×4 (12:14→15:22)
--- NOTE | 2021-06-05 12:52 | ECHOF ---
Referral Reason:Hypotension MEASUREMENTS -------- HEIGHT: 167.6 cm WEIGHT: 87.5 kg BP: 73/39 RVIDd: 2.9 cm (< 3.3) IVSd: 1.6 cm (0.6 - 1.1) LVIDd: 2.7 cm (3.9 - 5.3) LVPWd: 1.4 cm (0.6 - 1.1) IVSs: 1.7 cm LVIDs: 1.9 cm LVPWs: 1.8 cm LAESV Index (A-L): 21.66 ml/m Ao Diam: 3.4 cm (2.0 - 3.7) AV Cusp: 2.2 cm (1.5 - 2.6) LA Diam: 3.5 cm (2.7 - 3.8) MV EXCURSION: 13.666 mm (> 18.000) MV EF SLOPE: 50 mm/s (70 - 150) EPSS: 0.3 cm MV E David: 0.54 m/s MV DecT: 168 ms MV A David: 0.51 m/s MV E/A Ratio: 1.06 RAP: 5.00 mmHg RVSP: 20.37 mmHg FINDINGS -------- Sinus rhythm. This was a technically adequate study. The left ventricular size is normal. There is moderate concentric left ventricular hypertrophy. O verall left ventricular systolic function is normal with, an EF between 55 - 60 %. The diastolic fi lling pattern is normal for the age of the patient 12.80. The right ventricle is normal in size. Normal LA size by volume 22+/-6 ml/m2. The right atrial size is normal. Interatrial and interventricular septum intact. The aortic valve is trileaflet, and appears structurally normal. No aortic stenosis or regurgitation. The mitral valve is normal. Mild mitral regurgitation is present. The tricuspid valve appears structurally normal. Mild tricuspid regurgitation present. Right vent ricular systolic pressure is normal at < 35 mmHg. The right ventricular systolic pressure, as measu red by Doppler, is 20.37mmHg. There is no pulmonic regurgitation present. The aortic root size is normal. IVC Not well visulized. There is no pericardial effusion. CONCLUSIONS -------- 1. There is moderate concentric left ventricular hypertrophy. 2. Overall left ventricular systolic function is normal with, an EF between 55 - 60 %. 3. The aortic valve is trileaflet, and appears structurally normal. No aortic stenosis or regurgitati on. 4. Mild mitral regurgitation is present. 5. Mild tricuspid regurgitation present. SAIL FINISHER HAND: Liseth Guido RDCS
[2021-06-05 13:45] LABS: HCT 28.1 % (34.0-46.0); HGB 9.1 gm/dL (11.4-16.0); Hypochromasia Slight; MCH 32.4 pg (25.0-35.0); MCHC 32.2 g/dL (31.0-37.0); MCV 100.3 fL (80.0-100.0); Mean Platelet Volume 8.6; Platelet Count 214 k/uL (150-450); RDW 13.4 % (11.5-15.5); WBC 27.4 k/uL (3.8-10.6)
[2021-06-05] MEDS: HYDROmorphone 1 MG/ML 1 ML SYRINGE IVP PRN (15:20)
--- NOTE | 2021-06-05 15:21 | P.GSCN ---
History of Present Illness Consult date: 06/05/21 Reason for Consult: Bowel obstruction versus ileus on CT chest History of present illness: Patient's a 65-year-old lady who recently underwent lumbar fusion due to debilitating stenosis and sciatica who was subsequently transferred to [facility] and readmitted with reports of protracted diarrhea and nausea. She tells me that around 2009 she was treated for an intra-abdominal or retroperitoneal Taylor abscess with exploration and washout, did not require bowel resection. She was on a variety of antibiotic subsequently, she recalls cultures yielded E. coli. She subsequently suffered with Clostridium difficile colitis. She reports symptoms of protracted watery diarrhea over the past 2 weeks or so and waxing and waning nausea. Her loose bowel movements seem to have ceased following her lumbar procedure. Early today patient had a DT decreased responsiveness, emesis, hypotension and signs of shock. She is not intubated, now has a nasogastric tube in place yielding dark gastric to bilious aspirate. She's been maintaining adequate mean arterial pressure on a dose of 30 mcg/kg Levophed. A computed tomography scan of the abdomen and pelvis has been ordered with plans to get that completed this afternoon, she wasn't able to go down earlier due to relative hemodynamic compromise. Echocardiogram was obtained today showing a degree of left ventricular hypertrophy, no reported significant valvular disease. Troponins have been rising and mildly elevated consistent with a degree of straining. Cardiology is following. Laboratory study showed significant leukocytosis above 20,000. Patient has a modest anemia with a he moglobin of 9.1, mean corpuscular volume is slightly high at 100.3, RDW normal range at 13.4. She reports supposed nasogastric tube placement she is feeling somewhat better, she has no present complaints of abdominal pain no reported fever or chills. Nausea is subsiding. A computed tomography scan of the chest was obtained this morning to exclude pulmonary embolism, images were reviewed and it shows that the stomach is quite distended with fluid up into the esophagus. It's not possible to and for presence or absence of gastric or small bowel obstruction given the field of imaging. There is no obvious subdiaphragmatic free air. A subsequent KUB film shows a nonspecific bowel gas pattern. Review of Systems Pertinent positives and negatives per the body of the HPI. Remainder of 14 point review systems is negative. All systems: negative Past Medical History Past Medical History: Atrial Fibrillation, Coronary Artery Disease (CAD), COPD, Diabetes Mellitus, GERD/Reflux, Hyperlipidemia Additional Past Medical History / Comment(s): post polio syndrome, neuropathy, hx. spontaneous pneumothorax, recent diarrhea, bowel resecction for sepsis/infection History of Any Multi-Drug Resistant Organisms: C-DIFF Year Discovered:: 2013 MDRO Source:: stool Past Surgical History: Back Surgery, Bowel Resection, Cholecystectomy, Coronary Bypass/CABG, Ear Surgery, Tonsillectomy Additional Past Surgical History / Comment(s): triple bypass 2013, left clara pingo-oophorectomy, laminectomy L4 L5, ear surgery x 3 Past Anesthesia/Blood Transfusion Reactions: No Reported Reaction Past Psychological History: No Psychological Hx Reported Smoking Status: Former smoker Past Alcohol Use History: None Reported Additional Past Alcohol Use History / Comment(s): quit smoking 2008, 1ppd since age of 15 Past Drug Use History: None Reported - Past Family History Mother Family Medical History: Cancer Medications and Allergies Home Medications Medication Instructions Recorded Confirmed Type Atorvastatin [Lipitor] 40 mg PO HS 03/23/16 06/02/21 History DULoxetine HCL [Cymbalta] 60 mg PO HS 03/23/16 06/02/21 History Metoprolol Tartrate [Lopressor] 50 mg PO BID 03/23/16 06/01/21 History Omeprazole [PriLOSEC] 20 mg PO DAILY 03/23/16 06/02/21 History Insulin Glargine,Hum.rec.anlog 40 unit SQ HS 05/18/21 06/02/21 History [Lantus Solostar Pen] Lisinopril [Prinivil] 10 mg PO DAILY 05/18/21 06/01/21 History Montelukast [Singulair] 10 mg PO HS 05/18/21 06/01/21 History Ubidecarenone [Co Q-10] 100 mg PO DAILY 05/18/21 06/01/21 History amLODIPine [Norvasc] 10 mg PO HS 05/18/21 06/01/21 History Cyanocobalamin [Vitamin B-12] 1,000 mcg PO DAILY tab 05/22/21 06/01/21 Rx Gabapentin 600 mg PO BID 3 Days #6 tab 05/22/21 06/01/21 Rx INSULIN ASPART (NovoLOG) [NovoLOG 0 unit SQ ACHS ml 02/04/22 02/15/22 Rx (formulary)] oxyCODONE-APAP 10-325MG [Percocet 1 each PO Q6HR PRN 3 Days #12 tab 05/22/21 06/01/21 Rx 10-325 mg] Cholecalciferol [Vitamin D3 (25 25 mcg PO DAILY 06/01/21 06/01/21 History Mcg = 1000 Iu)] Dexamethasone [Decadron] 4 mg PO DAILY 06/01/21 06/01/21 History Tums(Dose Unknown) 1 tab PO DIRECTED PRN 06/01/21 06/01/21 History Allergies Allergy/AdvReac Type Severity Reaction Status Date / Time morphine Allergy rash,itchin Verified 06/02/21 06:58 g Sulfa (Sulfonamide Allergy Rash/Hives Verified 06/02/21 06:58 Antibiotics) Surgical - Exam Osteopathic Statement: *. No significant issues noted on an osteopathic structural exam other than those noted in the History and Physical/Consult. Vital Signs Temp Pulse Resp BP Pulse Ox 98.1 F 93 17 167/96 97 06/02/21 07:13 06/02/21 07:13 06/02/21 07:13 06/02/21 07:13 06/02/21 07:13 - General well developed, well nourished, no distress - Eyes PERRL, normal ocular movement - ENT normal pinna, normal nares, normal mucosa, no hearing loss - Respiratory Slightly coarse to auscultation bilaterally normal expansion, normal respiratory effort - Cardiovascular Rhythm: regular - Abdomen Abdomen is soft nontender to palpation, no guarding rebound or distention. No appreciable ventral or incisional hernia. Patient status post a right subcostal incision in the distant past for open cholecystectomy and has a midline laparotomy scar from previous abdominal exploration performed around 2009. Abdomen: soft, non tender Results - Labs 06/05/21 13:25 06/05/21 03:28 Abnormal Lab Results - Last 24 Hours (Table) 06/04/21 06/04/21 06/05/21 Range/Units 16:12 20:16 03:28 WBC 24.3 H (3.8-10.6) k/uL RBC 2.90 L (3.80-5.40) m/uL Hgb 9.3 L D (11.4-16.0) gm/dL Hct 27.8 L (34.0-46.0) % MCV (80.0-100.0) fL Neutrophils # 21.6 H (1.3-7.7) k/uL Monocytes # 1.1 H (0-1.0) k/uL PT (9.0-12.0) sec ABG pCO2 (35-45) mmHg ABG pO2 (83-108) mmHg ABG HCO3 (21-25) mmol/L ABG Total CO2 (19-24) mmol/L ABG O2 Saturation (94-97) % Sodium (137-145) mmol/L Potassium (3.5-5.1) mmol/L BUN (7-17) mg/dL Glucose (74-99) mg/dL POC Glucose (mg/dL) 129 H 129 H (75-99) mg/dL AST (14-36) U/L ALT (4-34) U/L Troponin I (0.000-0.034) ng/mL Total Protein (6.3-8.2) g/dL Albumin (3.5-5.0) g/dL 06/05/21 06/05/21 06/05/21 Range/Units 03:28 07:14 07:38 WBC (3.8-10.6) k/uL RBC (3.80-5.40) m/uL Hgb (11.4-16.0) gm/dL Hct (34.0-46.0) % MCV (80.0-100.0) fL Neutrophils # (1.3-7.7) k/uL Monocytes # (0-1.0) k/uL PT 12.1 H (9.0-12.0) sec ABG pCO2 (35-45) mmHg ABG pO2 (83-108) mmHg ABG HCO3 (21-25) mmol/L ABG Total CO2 (19-24) mmol/L ABG O2 Saturation (94-97) % Sodium 134 L (137-145) mmol/L Potassium 3.1 L (3.5-5.1) mmol/L BUN 25 H (7-17) mg/dL Glucose 196 H (74-99) mg/dL POC Glucose (mg/dL) 241 H (75-99) mg/dL AST 108 H (14-36) U/L ALT 47 H (4-34) U/L Troponin I (0.000-0.034) ng/mL Total Protein 5.0 L (6.3-8.2) g/dL Albumin 2.6 L (3.5-5.0) g/dL 06/05/21 06/05/21 06/05/21 Range/Units 07:38 07:40 08:20 WBC (3.8-10.6) k/uL RBC (3.80-5.40) m/uL Hgb (11.4-16.0) gm/dL Hct (34.0-46.0) % MCV (80.0-100.0) fL Neutrophils # (1.3-7.7) k/uL Monocytes # (0-1.0) k/uL PT (9.0-12.0) sec ABG pCO2 20 L (35-45) mmHg ABG pO2 152 H (83-108) mmHg ABG HCO3 13 L (21-25) mmol/L ABG Total CO2 13 L (19-24) mmol/L ABG O2 Saturation 98.8 H (94-97) % Sodium (137-145) mmol/L Potassium (3.5-5.1) mmol/L BUN (7-17) mg/dL Glucose (74-99) mg/dL POC Glucose (mg/dL) 228 H (75-99) mg/dL AST (14-36) U/L ALT (4-34) U/L Troponin I 0.083 H* (0.000-0.034) ng/mL Total Protein (6.3-8.2) g/dL Albumin (3.5-5.0) g/dL 06/05/21 06/05/21 06/05/21 Range/Units 10:23 11:18 13:25 WBC (3.8-10.6) k/uL RBC (3.80-5.40) m/uL Hgb (11.4-16.0) gm/dL Hct (34.0-46.0) % MCV (80.0-100.0) fL Neutrophils # (1.3-7.7) k/uL Monocytes # (0-1.0) k/uL PT (9.0-12.0) sec ABG pCO2 (35-45) mmHg ABG pO2 (83-108) mmHg ABG HCO3 (21-25) mmol/L ABG Total CO2 (19-24) mmol/L ABG O2 Saturation (94-97) % Sodium (137-145) mmol/L Potassium (3.5-5.1) mmol/L BUN (7-17) mg/dL Glucose (74-99) mg/dL POC Glucose (mg/dL) 180 H (75-99) mg/dL AST (14-36) U/L ALT (4-34) U/L Troponin I 0.064 H* 0.082 H* (0.000-0.034) ng/mL Total Protein (6.3-8.2) g/dL Albumin (3.5-5.0) g/dL 06/05/21 Range/Units 13:25 WBC 27.4 H (3.8-10.6) k/uL RBC 2.80 L (3.80-5.40) m/uL Hgb 9.1 L (11.4-16.0) gm/dL Hct 28.1 L (34.0-46.0) % MCV 100.3 H (80.0-100.0) fL Neutrophils # (1.3-7.7) k/uL Monocytes # (0-1.0) k/uL PT (9.0-12.0) sec ABG pCO2 (35-45) mmHg ABG pO2 (83-108) mmHg ABG HCO3 (21-25) mmol/L ABG Total CO2 (19-24) mmol/L ABG O2 Saturation (94-97) % Sodium (137-145) mmol/L Potassium (3.5-5.1) mmol/L BUN (7-17) mg/dL Glucose (74-99) mg/dL POC Glucose (mg/dL) (75-99) mg/dL AST (14-36) U/L ALT (4-34) U/L Troponin I (0.000-0.034) ng/mL Total Protein (6.3-8.2) g/dL Albumin (3.5-5.0) g/dL Diabetes panel 06/05/21 Range/Units 03:28 Sodium 134 L (137-145) mmol/L Potassium 3.1 L (3.5-5.1) mmol/L Chloride 100 (98-107) mmol/L Carbon Dioxide 23 (22-30) mmol/L BUN 25 H (7-17) mg/dL Creatinine 0.95 (0.52-1.04) mg/dL Glucose 196 H (74-99) mg/dL Calcium 8.7 (8.4-10.2) mg/dL AST 108 H (14-36) U/L ALT 47 H (4-34) U/L Alkaline Phosphatase 56 (38-126) U/L Total Protein 5.0 L (6.3-8.2) g/dL Albumin 2.6 L (3.5-5.0) g/dL Calcium panel 06/05/21 Range/Units 03:28 Calcium 8.7 (8.4-10.2) mg/dL Albumin 2.6 L (3.5-5.0) g/dL Pituitary panel 06/05/21 Range/Units 03:28 Sodium 134 L (137-145) mmol/L Potassium 3.1 L (3.5-5.1) mmol/L Chloride 100 (98-107) mmol/L Carbon Dioxide 23 (22-30) mmol/L BUN 25 H (7-17) mg/dL Creatinine 0.95 (0.52-1.04) mg/dL Glucose 196 H (74-99) mg/dL Calcium 8.7 (8.4-10.2) mg/dL Adrenal panel 06/05/21 Range/Units 03:28 Sodium 134 L (137-145) mmol/L Potassium 3.1 L (3.5-5.1) mmol/L Chloride 100 (98-107) mmol/L Carbon Dioxide 23 (22-30) mmol/L BUN 25 H (7-17) mg/dL Creatinine 0.95 (0.52-1.04) mg/dL Glucose 196 H (74-99) mg/dL Calcium 8.7 (8.4-10.2) mg/dL Total Bilirubin 0.8 (0.2-1.3) mg/dL AST 108 H (14-36) U/L ALT 47 H (4-34) U/L Alkaline Phosphatase 56 (38-126) U/L Total Protein 5.0 L (6.3-8.2) g/dL Albumin 2.6 L (3.5-5.0) g/dL Assessment and Plan Assessment: 65-year-old lady with computed tomography scan showing gastric distention, recent bouts of emesis and suspected aspiration pneumonitis in the setting of recent lumbar fusion. Suspect a degree of ileus, unable to exclude obstruction given current imaging studies. Abdominal exam is benign, patient seems to be improving with nasogastric decompression. No evidence of ventral or incisional hernia seen on physical exam. Patient's moderately obese, she could be concealing underlying abdominal wall pathology. History of intra-abdominal or r etroperitoneal abscess managed with open washout, subsequent issues with Clostridium difficile colitis. Reported issues with diarrhea over the past few weeks. Unclear as to whether the patient has undergone routine screening colonoscopy in the past. Plan: Computed tomography scan of the abdomen and pelvis pending this afternoon, will review images once available and will continue to follow. In the meantime continue with nasogastric decompression, keep the head of the bed elevated at 30 at least at all times for aspiration precautions. Nothing by mouth except vital medications without IV equivalents. I suspect her leukocytosis largely relates to aspiration pneumonitis and subsequent degree of shock which seems to be settling. Abdominal exam presently is benign. Clostridium difficile toxin screen pending, suggests urinalysis for completeness. Blood cultures submitted and pending results. Time with Patient: Greater than 30
[2021-06-05] MEDS: PIPERACILLIN-TAZOBACTAM 3.375 GM in SODIUM CHLORIDE 0.9% 100 ML IVPB SCH (16:29)
--- NOTE | 2021-06-05 16:49 | CT ---
EXAMINATION TYPE: CT abdomen pelvis wo con DATE OF EXAM: 06/05/2021 COMPARISON: 10/25/2020 HISTORY: Abdominal pain, bowel obstruction. CT DLP: 1299.4 mGycm Automated exposure control for dose reduction was used. Images obtained from the diaphragm to the floor the pelvis with no contrast. There is some infiltrate and atelectasis at both lung bases. There are some air bronchograms left low er lobe. Heart size is normal. There is no pericardial effusion. There is contrast in the kidneys fro m CT scan earlier today. Liver and spleen are intact distant stomach is intact. There is nasogastric tube in the stomach. The bile ducts are not dilated. Gallbladder appears absent. There is no adrenal mass. Kidneys show no hydronephrosis. There is no evidence of renal mass. There i s no retroperitoneal adenopathy. Abdominal aorta is atheromatous. There is Ye catheter in the urinary bladder. There is no free fluid in the pelvis. There are a few sigmoid diverticula. There are multiple dilated small bowel loops with fluid levels in the mid abdomen. Small bowel dilate d up to 3.2 cm. There is multilevel posterior lumbar spine fusion surgery with metal artifact. Uterus is anteverted. There is no pelvic mass. There is no evidence of free air. Large bowel is not dilated . Terminal ileum appears normal. Appendix not seen. No sign of thickened appendix. Lumbar vertebra show no compression fracture. There is spondylotic changes. There is disc prosthesis at multiple levels. There is osteopenia. The bony pelvis is intact. IMPRESSION: Dilated multiple small bowel loops suggestive of a distal mechanical small bowel obstruction which is a change compared to old exam. Transition point not seen. Distal ileum is not dilated. Bilateral lower lobe pneumonia and atelectasis which is mostly new compared to old exam.
--- NOTE | 2021-06-05 17:43 | P.PN ---
Progress Note - Text Progress Note Date: 06/05/21 Pt s/e. Appreciate Gen Sx and Pulm consults. She is looking better but still requiring presseors. Nursing at bedside. Vitals improving, BP improving as well. CT shows obstruction w/o transition point. NG in place. Will continue to monitor.
[2021-06-05 18:35] LABS: Glucose,Whole Blood 206 mg/dL (75-99)
[2021-06-05 21:30] LABS: Glucose,Whole Blood 170 mg/dL (75-99)
[2021-06-05 22:08] LABS: Albumin 1.9 g/dL (3.5-5.0); Calcium 7.3 mg/dL (8.4-10.2); Magnesium 1.8 mg/dL (1.6-2.3); Potassium 3.6 mmol/L (3.5-5.1); Total Bilirubin 0.6 mg/dL (0.2-1.3); Total Protein 3.9 g/dL (6.3-8.2)
[2021-06-05] MEDS ORDERED: Magnesium Replacement Protocol 1 EACH MISC MISCELLANE PRN (22:45)
[2021-06-05] MEDS: MAGNESIUM SULFATE-D5W PMX 1 GM in DEXTROSE/WATER 1 100ML.BAG IVPB SCH (23:04)
--- NOTE | 2021-06-05 23:27 | P.CONS ---
History of Present Illness - Reason for Consult Consult date: 06/05/21 possible sepsis Requesting physician: Caro Maddox - Chief Complaint shortness of breath x few days - History of Present Illness History of present illness : Patient is 65-year-old female was electively admitted to hospital on 06/02/2021 for her lower back surgery in this patient who did have a history of L2-S1 severe stenosis patient status post L2- S1 bilateral laminectomy L2-L3 interbody fusion, L5-S1 interbody fusion patient subsequently has been in the hospital for postoperative care early this morning patient did have a worsening shortness of breath patient was feeling lightheaded dizzy and she thought she was going to pass out patient was noted to be hypoxic with need for supplemental oxygen patient did not have any fever he was tachycardic and hypertensive patient did have white count of 15,000 post admission and that is up to 24,000 today with a left shift did have elevated BUN and creatinine and he was observed elevated as well warner PCR was negative patient did have a CT angiogram of the chest which shows no major central PE markedly dilated esophagus bowel obstruction not excluded CT abdominal pelvis is currently ordered and scheduled patient has been started on Zosyn concerning for possible aspiration pneumonia infectious disease was consulted for further management of antibiotic therapy patient denies having any headache or chest pain shortness of breath abdominal symptoms she also have a cough with occasional sputum, no hemoptysis patient has a complex abdominal distention nausea but no vomiting and no diarrhea Review of system: CONSTITUTIONAL: Positive for weakness denies high-grade fever. EYES: No complaint. ENT: No complaint. RESPIRATORY: As per history of present illness. CARDIOVASCULAR: No complaint. GENITOURINARY: No complaint. GASTROINTESTINAL: As per history of present illness. MUSCULOSKELETAL: No complaint. INTEGUMENTARY: No complaint. PSYCHOLOGIC: No complaint. ENDOCRINE: No complaint. NEUROLOGIC: No complaint. Past medical history : Reviewed, documented below Past surgical history : Reviewed, documented below Social history: Reviewed, documented below Medications: Reviewed, as documented below EXAMINATION: Vital sigans= Reviewed and documented below GENERAL DESCRIPTION: Elderly female lying in bed, no distress. No tachypnea or accessory muscle of respiration use. HEENT: Shows Pallor , no scleral icterus. Oral mucous membrane is dry. NECK: Trachea central, no thyromegaly. LUNGS: Unlabored breathing. Decrease intensity of breath sounds. No wheeze or crackle. HEART: S1, S2, regular rate and rhythm. ABDOMEN: Soft, no tenderness , guarding or rigidity EXTREMITIES: No edema of feet. SKIN: No rash, no masses palpable. NEUROLOGICAL: The patient is awake, alert, oriented x3, mood and affect normal. LABS AND RADIOLOGY: Reviewed results see below Assessment : 1-Patient with worsening respiratory failure this patient complaining of shortness of breath and also have a cough with some productive sputum patient was electively admitted to hospital for chronic back pain and is status post lumbosacral spine surgery now with worsening of respiratory status CT angiogram of the chest which shows a markedly dilated esophagus and concern for possible aspiration/gram-negative pneumonia. 2patient with a borderline kidney function high risk of nephrotoxicity Plan: 1-blood culture has been obtained we will request for the sputum culture 2-Zosyn 3.375 g every 8 hour 3-gentle IV fluid We will follow on clinical condition and cultures to further adjust medication if needed Thank you for this consultation we will follow the patient along with you Past Medical History Past Medical History: Atrial Fibrillation, Coronary Artery Disease (CAD), COPD, Diabetes Mellitus, GERD/Reflux, Hyperlipidemia Additional Past Medical History / Comment(s): post polio syndrome, neuropathy, hx. spontaneous pneumothorax, recent diarrhea, bowel resecction for sepsis/infection History of Any Multi-Drug Resistant Organisms: C-DIFF Year Discovered:: 2013 MDRO Source:: stool Past Surgical History: Back Surgery, Bowel Resection, Cholecystectomy, Coronary Bypass/CABG, Ear Surgery, Tonsillectomy Additional Past Surgical History / Comment(s): triple bypass 2013, left salpingo-oophorectomy, laminectomy L4 L5, ear surgery x 3 Past Anesthesia/Blood Transfusion Reactions: No Reported Reaction Past Psychological History: No Psychological Hx Reported Smoking Status: Former smoker Past Alcohol Use History: None Reported Additional Past Alcohol Use History / Comment(s): quit smoking 2008, 1ppd since age of 15 Past Drug Use History: None Reported - Past Family History Mother Family Medical History: Cancer Medications and Allergies Home Medications Medication Instructions Recorded Confirmed Type Atorvastatin [Lipitor] 40 mg PO HS 03/23/16 06/02/21 History DULoxetine HCL [Cymbalta] 60 mg PO HS 03/23/16 06/02/21 History Metoprolol Tartrate [Lopressor] 50 mg PO BID 03/23/16 06/01/21 History Omeprazole [PriLOSEC] 20 mg PO DAILY 03/23/16 06/02/21 History Insulin Glargine,Hum.rec.anlog 40 unit SQ HS 05/18/21 06/02/21 History [Lantus Solostar Pen] Lisinopril [Prinivil] 10 mg PO DAILY 05/18/21 06/01/21 History Montelukast [Singulair] 10 mg PO HS 05/18/21 06/01/21 History Ubidecarenone [Co Q-10] 100 mg PO DAILY 05/18/21 06/01/21 History amLODIPine [Norvasc] 10 mg PO HS 05/18/21 06/01/21 History Cyanocobalamin [Vitamin B-12] 1,000 mcg PO DAILY tab 05/22/21 06/01/21 Rx Gabapentin 600 mg PO BID 3 Days #6 tab 05/22/21 06/01/21 Rx INSULIN ASPART (NovoLOG) [NovoLOG 0 unit SQ ACHS ml 05/22/21 06/02/21 Rx (formulary)] oxyCODONE-APAP 10-325MG [Percocet 1 each PO Q6HR PRN 3 Days #12 tab 05/22/21 06/01/21 Rx 10-325 mg] Cholecalciferol [Vitamin D3 (25 25 mcg PO DAILY 06/01/21 06/01/21 History Mcg = 1000 Iu)] Dexamethasone [Decadron] 4 mg PO DAILY 06/01/21 06/01/21 History Tums(Dose Unknown) 1 tab PO DIRECTED PRN 06/01/21 06/01/21 History Allergies Allergy/AdvReac Type Severity Reaction Status Date / Time morphine Allergy rash,itchin Verified 06/02/21 06:58 g Sulfa (Sulfonamide Allergy Rash/Hives Verified 06/02/21 06:58 Antibiotics) Physical Exam Vitals: Vital Signs Temp Pulse Pulse Pulse Resp BP BP 06/05/21 14:15 91 17 101/46 06/05/21 14:00 94 21 76/46 06/05/21 13:45 91 22 118/81 06/05/21 13:30 89 24 78/44 06/05/21 13:15 82 21 77/66 02/18/22 13:00 81 21 60/24 06/05/21 12:45 85 21 113/60 06/05/21 12:30 84 21 92/50 06/05/21 12:15 82 21 52/26 06/05/21 12:00 87 22 93/76 06/05/21 11:45 86 24 70/25 06/05/21 11:30 86 23 85/39 06/05/21 11:15 97.5 F L 84 23 84/39 06/05/21 10:52 107 H 22 64/41 06/05/21 09:45 85 20 80/48 06/05/21 09:41 88 15 73/39 06/05/21 09:29 87 20 74/45 06/05/21 09:20 80 20 64/41 06/05/21 09:08 104 H 24 62/46 06/05/21 08:45 94 18 60/42 06/05/21 08:35 150 H 30 H 77/46 06/05/21 08:00 88 22 06/05/21 07:15 70/42 06/05/21 07:00 122 H 74/52 06/05/21 01:57 98.0 F 114 H 125/66 06/04/21 19:56 98.6 F 109 H 130/73 Pulse Ox 06/05/21 14:15 100 06/05/21 14:00 99 06/05/21 13:45 99 06/05/21 13:30 99 06/05/21 13:15 98 06/05/21 13:00 100 06/05/21 12:45 100 06/05/21 12:30 99 06/05/21 12:15 100 06/05/21 12:00 94 L 06/05/21 11:45 95 06/05/21 11:30 95 06/05/21 11:15 100 06/05/21 10:52 89 L 06/05/21 09:45 91 L 06/05/21 09:41 100 06/05/21 09:29 100 06/05/21 09:20 94 L 06/05/21 09:08 90 L 06/05/21 08:45 92 L 06/05/21 08:35 80 L 06/05/21 08:00 06/05/21 07:15 98 06/05/21 07:00 81 L 06/05/21 01:57 92 L 06/04/21 19:56 94 L Intake and Output 06/04/21 06/05/21 06/05/21 22:59 06:59 14:59 Intake Total 600 406.297 Output Total 674 617 8277 Balance 30 -280 -2293.703 Intake: IV 600 360 0.9 @ 50 600 360 Intake, IV Titration 46.297 Amount Norepinephrine 8 mg In 46.297 Sodium Chloride 0.9% 250 ml @ 0.05 MCG/KG/MIN 8. 495 mls/hr IV .Q24H [facility] Rx#:[id number] Output: Gastric Drainage 2650 Drainage 120 30 Right Lower Back 120 30 Urine 250 150 50 Emesis 200 100 Other: Voiding Method Indwelling Catheter Indwelling Catheter Results CBC & Chem 7: 06/05/21 13:25 06/05/21 21:18 Labs: Abnormal Lab Results - Last 24 Hours (Table) 06/04/21 06/04/21 06/05/21 Range/Units 16:12 20:16 03:28 WBC 24.3 H (3.8-10.6) k/uL RBC 2.90 L (3.80-5.40) m/uL Hgb 9.3 L D (11.4-16.0) gm/dL Hct 27.8 L (34.0-46.0) % MCV (80.0-100.0) fL Neutrophils # 21.6 H (1.3-7.7) k/uL Monocytes # 1.1 H (0-1.0) k/uL PT (9.0-12.0) sec ABG pCO2 (35-45) mmHg ABG pO2 (83-108) mmHg ABG HCO3 (21-25) mmol/L ABG Total CO2 (19-24) mmol/L ABG O2 Saturation (94-97) % Sodium (137-145) mmol/L Potassium (3.5-5.1) mmol/L BUN (7-17) mg/dL Glucose (74-99) mg/dL POC Glucose (mg/dL) 129 H 129 H (75-99) mg/dL AST (14-36) U/L ALT (4-34) U/L Troponin I (0.000-0.034) ng/mL Total Protein (6.3-8.2) g/dL Albumin (3.5-5.0) g/dL 06/05/21 06/05/21 06/05/21 Range/Units 03:28 07:14 07:38 WBC (3.8-10.6) k/uL RBC (3.80-5.40) m/uL Hgb (11.4-16.0) gm/dL Hct (34.0-46.0) % MCV (80.0-100.0) fL Neutrophils # (1.3-7.7) k/uL Monocytes # (0-1.0) k/uL PT 12.1 H (9.0-12.0) sec ABG pCO2 (35-45) mmHg ABG pO2 (83-108) mmHg ABG HCO3 (21-25) mmol/L ABG Total CO2 (19-24) mmol/L ABG O2 Saturation (94-97) % Sodium 134 L (137-145) mmol/L Potassium 3.1 L (3.5-5.1) mmol/L BUN 25 H (7-17) mg/dL Glucose 196 H (74-99) mg/dL POC Glucose (mg/dL) 241 H (75-99) mg/dL AST 108 H (14-36) U/L ALT 47 H (4-34) U/L Troponin I (0.000-0.034) ng/mL Total Protein 5.0 L (6.3-8.2) g/dL Albumin 2.6 L (3.5-5.0) g/dL 06/05/21 06/05/21 06/05/21 Range/Units 07:38 07:40 08:20 WBC (3.8-10.6) k/uL RBC (3.80-5.40) m/uL Hgb (11.4-16.0) gm/dL Hct (34.0-46.0) % MCV (80.0-100.0) fL Neutrophils # (1.3-7.7) k/uL Monocytes # (0-1.0) k/uL PT (9.0-12.0) sec ABG pCO2 20 L (35-45) mmHg ABG pO2 152 H (83-108) mmHg ABG HCO3 13 L (21-25) mmol/L ABG Total CO2 13 L (19-24) mmol/L ABG O2 Saturation 98.8 H (94-97) % Sodium (137-145) mmol/L Potassium (3.5-5.1) mmol/L BUN (7-17) mg/dL Glucose (74-99) mg/dL POC Glucose (mg/dL) 228 H (75-99) mg/dL AST (14-36) U/L ALT (4-34) U/L Troponin I 0.083 H* (0.000-0.034) ng/mL Total Protein (6.3-8.2) g/dL Albumin (3.5-5.0) g/dL 06/05/21 06/05/21 06/05/21 Range/Units 10:23 11:18 13:25 WBC (3.8-10.6) k/uL RBC (3.80-5.40) m/uL Hgb (11.4-16.0) gm/dL Hct (34.0-46.0) % MCV (80.0-100.0) fL Neutrophils # (1.3-7.7) k/uL Monocytes # (0-1.0) k/uL PT (9.0-12.0) sec ABG pCO2 (35-45) mmHg ABG pO2 (83-108) mmHg ABG HCO3 (21-25) mmol/L ABG Total CO2 (19-24) mmol/L ABG O2 Saturation (94-97) % Sodium (137-145) mmol/L Potassium (3.5-5.1) mmol/L BUN (7-17) mg/dL Glucose (74-99) mg/dL POC Glucose (mg/dL) 180 H (75-99) mg/dL AST (14-36) U/L ALT (4-34) U/L Troponin I 0.064 H* 0.082 H* (0.000-0.034) ng/mL Total Protein (6.3-8.2) g/dL Albumin (3.5-5.0) g/dL 06/05/21 Range/Units 13:25 WBC 27.4 H (3.8-10.6) k/uL RBC 2.80 L (3.80-5.40) m/uL Hgb 9.1 L (11.4-16.0) gm/dL Hct 28.1 L (34.0-46.0) % MCV 100.3 H (80.0-100.0) fL Neutrophils # (1.3-7.7) k/uL Monocytes # (0-1.0) k/uL PT (9.0-12.0) sec ABG pCO2 (35-45) mmHg ABG pO2 (83-108) mmHg ABG HCO3 (21-25) mmol/L ABG Total CO2 (19-24) mmol/L ABG O2 Saturation (94-97) % Sodium (137-145) mmol/L Potassium (3.5-5.1) mmol/L BUN (7-17) mg/dL Glucose (74-99) mg/dL POC Glucose (mg/dL) (75-99) mg/dL AST (14-36) U/L ALT (4-34) U/L Troponin I (0.000-0.034) ng/mL Total Protein (6.3-8.2) g/dL Albumin (3.5-5.0) g/dL
[2021-06-05] MEDS: POTASSIUM CHLORIDE 20 MEQ in WATER FOR INJECTION 1 100ML.BAG IVPB SCH (23:28)
[2021-06-06] MEDS: PIPERACILLIN-TAZOBACTAM 3.375 GM in SODIUM CHLORIDE 0.9% 100 ML IVPB SCH ×4 (00:51→22:56)
[2021-06-06] MEDS: HYDROmorphone 1 MG/ML 1 ML SYRINGE IVP PRN ×3 (00:51→15:07)
[2021-06-06] MEDS: NOREPINEPHRINE 8 MG in SODIUM CHLORIDE 0.9% 250 ML IV SCH ×3 (00:52→12:58)
[2021-06-06] MEDS: MAGNESIUM SULFATE-D5W PMX 1 GM in DEXTROSE/WATER 1 100ML.BAG IVPB SCH (01:20)
[2021-06-06] MEDS: POTASSIUM CHLORIDE 20 MEQ in WATER FOR INJECTION 1 100ML.BAG IVPB SCH (01:43)
[2021-06-06] MEDS: SODIUM CHLORIDE 0.9% 1,000 ML IV SCH ×3 (03:20→22:51)
[2021-06-06 06:11] LABS: Albumin 1.9 g/dL (3.5-5.0); Calcium 7.2 mg/dL (8.4-10.2); Magnesium 2.2 mg/dL (1.6-2.3); Total Bilirubin 0.8 mg/dL (0.2-1.3)
[2021-06-06 06:21] LABS: HCT 23.1 % (34.0-46.0); MCH 32.1 pg (25.0-35.0); MCHC 32.4 g/dL (31.0-37.0); MCV 99.1 fL (80.0-100.0); Mean Platelet Volume 8.7; Platelet Count 198 k/uL (150-450); RBC 2.33 m/uL (3.80-5.40); RDW 13.6 % (11.5-15.5)
[2021-06-06 06:23] LABS: HGB 7.5 gm/dL (11.4-16.0)
[2021-06-06 06:37] LABS: Glucose,Whole Blood 169 mg/dL (75-99)
[2021-06-06] MEDS: INSULIN ASPART (NovoLOG) 100 UNIT/ML VIAL SQ SCH ×4 (07:04→20:06)
[2021-06-06 07:33] LABS: Band Neutrophils % 10 %; Lymphocytes # (M) 2.21 k/uL (1.0-4.8); Metamyelocytes # (M) 0.25 k/uL (0); Metamyelocytes % 1 %; Monocytes # (M) 0.49 k/uL (0-1.0); Neutrophils % (M) 80 %; Nucleated Red Blood Cells 5 /100 WBC (0-0); Total Cells Counted 200; WBC 24.5 k/uL (3.8-10.6)
[2021-06-06 07:42] LABS: C Reactive Protein 30.1 mg/dL (<1.0)
[2021-06-06] MEDS: NYSTATIN 100,000 UNIT/GM OINT 30 GM TUBE TOPICAL SCH ×2 (08:45→20:19)
[2021-06-06] MEDS: PANTOPRAZOLE 40 MG/10 ML VIAL IVP SCH (08:45)
--- NOTE | 2021-06-06 11:01 | P.PN ---
Subjective Progress Note Date: 06/06/21 Principal diagnosis: L2 to S1 spondylosis with stenosis L4-L5 grade 1 spondylolisthesis Patient seen and examined she is doing better today she is somewhat ornery as she has not been able to eat or drink and is she denies fevers chills shortness of breath or chest pain overnight she denies any perineal numbness or tingling she denies any leg pain. States good motion of her legs and better strength. Appreciate ICU and general surgery management Objective - Vital Signs Vital signs: Vital Signs Temp 100.5 F H 06/06/21 04:00 Pulse 116 H 06/06/21 07:30 Resp 16 06/06/21 07:30 BP 118/53 06/06/21 07:30 Pulse Ox 95 06/06/21 07:30 Intake & Output 06/05/21 06/06/21 06/06/21 18:59 06:59 18:59 Intake Total 5641.395 7278.440 155.621 Output Total 3070 670 Balance -202.682 1663.440 155.621 Weight 100.9 kg Intake: IV 840 1440 120 0.9 @ 50 840 1440 120 Intake, IV Titration 208.318 893.440 35.621 Amount Norepinephrine 8 mg In 208.318 893.440 35.621 Sodium Chloride 0.9% 250 ml @ 0.05 MCG/KG/MIN 8. 495 mls/hr IV .Q24H [facility] Rx#:[id number] Output: Gastric Drainage 2950 300 Urine 120 370 Other: Voiding Method Indwelling Catheter Indwelling Catheter - Exam Exam is repeated today she has good motion of bilateral lower extremity's. She has no pain on palpation of her abdomen she is irritated and eating ice chips. Her incision is clean dry and tracked contact the drain is in place and we will leave it for now she is on heparin. Nurses Norvasc intact distally. Reflexes Patient is alert and oriented 3 appears well-nourished well-hydrated They do not appear septic. Lower extremities with 4/5 strength in all major muscle groups. Right lower extremity is still fairly weak in hip flexion however is getting better. Upper extremities show 4+/5 strength in all major muscle groups. [2]/4DTR all UE and LE b/l Patient shows a negative Homans, Ward's, negative Babinski's negative clonus bilaterally. negative straight leg raise bilaterally. No tensioning signs. Cranial nerves II through XII are grossly intact. There is FROM that is painless of the b/l UE and LE in all major joints [w/o pain]. They are intact to light touch sensation in L2 to S1 nerve distribution. Patient has palpable dorsalis pedis was posterior tibial pulses. Compartments are soft and compressible. Drain has 10 mL it was recently emptied - Labs CBC & Chem 7: 06/06/21 05:34 06/06/21 05:34 Labs: Abnormal Lab Results - Last 24 Hours (Table) 06/05/21 06/05/21 06/05/21 Range/Units 10:23 11:18 13:25 WBC (3.8-10.6) k/uL RBC (3.80-5.40) m/uL Hgb (11.4-16.0) gm/dL Hct (34.0-46.0) % MCV (80.0-100.0) fL Neutrophils # (Manual) (1.3-7.7) k/uL Metamyelocytes # (Man) (0) k/uL Nucleated RBCs (0-0) /100 WBC Sodium (137-145) mmol/L Chloride (98-107) mmol/L Carbon Dioxide (22-30) mmol/L BUN (7-17) mg/dL Creatinine (0.52-1.04) mg/dL Glucose (74-99) mg/dL POC Glucose (mg/dL) 180 H (75-99) mg/dL Calcium (8.4-10.2) mg/dL AST (14-36) U/L ALT (4-34) U/L Troponin I 0.064 H* 0.082 H* (0.000-0.034) ng/mL C-Reactive Protein (<1.0) mg/dL Total Protein (6.3-8.2) g/dL Albumin (3.5-5.0) g/dL Procalcitonin (0.02-0.09) ng/mL 06/05/21 06/05/21 06/05/21 Range/Units 13:25 18:32 21:18 WBC 27.4 H (3.8-10.6) k/uL RBC 2.80 L (3.80-5.40) m/uL Hgb 9.1 L (11.4-16.0) gm/dL Hct 28.1 L (34.0-46.0) % MCV 100.3 H (80.0-100.0) fL Neutrophils # (Manual) (1.3-7.7) k/uL Metamyelocytes # (Man) (0) k/uL Nucleated RBCs (0-0) /100 WBC Sodium 135 L (137-145) mmol/L Chloride (98-107) mmol/L Carbon Dioxide 21 L (22-30) mmol/L BUN 38 H (7-17) mg/dL Creatinine 1.51 H (0.52-1.04) mg/dL Glucose 152 H (74-99) mg/dL POC Glucose (mg/dL) 206 H (75-99) mg/dL Calcium 7.3 L (8.4-10.2) mg/dL AST 2520 H (14-36) U/L ALT 1770 H (4-34) U/L Troponin I (0.000-0.034) ng/mL C-Reactive Protein (<1.0) mg/dL Total Protein 3.9 L (6.3-8.2) g/dL Albumin 1.9 L (3.5-5.0) g/dL Procalcitonin (0.02-0.09) ng/mL 06/05/21 06/06/21 06/06/21 Range/Units 21:29 05:34 05:34 WBC 24.5 H (3.8-10.6) k/uL RBC 2.33 L (3.80-5.40) m/uL Hgb 7.5 L D (11.4-16.0) gm/dL Hct 23.1 L (34.0-46.0) % MCV (80.0-100.0) fL Neutrophils # (Manual) 22.00 H (1.3-7.7) k/uL Metamyelocytes # (Man) 0.25 H (0) k/uL Nucleated RBCs 5 H (0-0) /100 WBC Sodium 136 L (137-145) mmol/L Chloride 109 H (98-107) mmol/L Carbon Dioxide 19 L (22-30) mmol/L BUN 41 H (7-17) mg/dL Creatinine 1.31 H (0.52-1.04) mg/dL Glucose 149 H (74-99) mg/dL POC Glucose (mg/dL) 170 H (75-99) mg/dL Calcium 7.2 L (8.4-10.2) mg/dL AST 1284 H (14-36) U/L ALT 1525 H (4-34) U/L Troponin I (0.000-0.034) ng/mL C-Reactive Protein 30.1 H (<1.0) mg/dL Total Protein 4.0 L (6.3-8.2) g/dL Albumin 1.9 L (3.5-5.0) g/dL Procalcitonin (0.02-0.09) ng/mL 06/06/21 06/06/21 Range/Units 05:34 06:36 WBC (3.8-10.6) k/uL RBC (3.80-5.40) m/uL Hgb (11.4-16.0) gm/dL Hct (34.0-46.0) % MCV (80.0-100.0) fL Neutrophils # (Manual) (1.3-7.7) k/uL Metamyelocytes # (Man) (0) k/uL Nucleated RBCs (0-0) /100 WBC Sodium (137-145) mmol/L Chloride (98-107) mmol/L Carbon Dioxide (22-30) mmol/L BUN (7-17) mg/dL Creatinine (0.52-1.04) mg/dL Glucose (74-99) mg/dL POC Glucose (mg/dL) 169 H (75-99) mg/dL Calcium (8.4-10.2) mg/dL AST (14-36) U/L ALT (4-34) U/L Troponin I (0.000-0.034) ng/mL C-Reactive Protein (<1.0) mg/dL Total Protein (6.3-8.2) g/dL Albumin (3.5-5.0) g/dL Procalcitonin 2.87 H (0.02-0.09) ng/mL Microbiology - Last 24 Hours (Table) 06/05/21 16:59 Urine Culture - Preliminary Urine,Catheterized Assessment and Plan Assessment: 65-year-old female postop day 4 L2 to S1 decompression fusion 1. L2-S1 severe stenosis 2.L2-S1 spondylosis 3. right lower extremity weakness 4. right lower extremity radiculopathy 5. L2-3 large HNP with sequestration 6. Mechanical low back pain 7. Acute bowel obstruction Plan: -Appreciate garden consultant and team management. -Activity: Ambulate QID, OOB all meals, up and about, limit lifting bending twisting to less than 5 lbs. Use walker or cane if needed for stability. -Daily PT/OT, increase ambulation strength and balance. -No braces needed -Pain control: Adequate at this time -Meds: reviewed, cont with zofran and compazine for nausea. Pt on dexamethasone as well PO, not ideal for fusion and healing purposes but OK for need of antinausea. -GI ppx: senna, Miralax -DC stacy when up and about, bedside commode if needed -DVT PPX: Heparin SQ; TEDs; SCDs; Early ambulation -Hygiene: Shower OK. Maintain dressing clean and dry. Meticulous cleaning after BMs away from incision site -Drains: Maintain for now. Record output -Encourage IS 10x/hr -Pulmonary general surgery and medical management -Dispo: Pending
--- NOTE | 2021-06-06 12:21 | P.PN ---
Subjective Progress Note Date: 06/06/21 Principal diagnosis: Hypotension. Pulmonary consult dated 06/05/2021. 65-year-old female who had lumbar spine surgery, on June 02. The patient's surgery was done by Dr. Dunn. Apparently, the patient was up on the fourth floor, and early this morning, a rapid response was called on the patient, because of low blood pressure and low saturations. The patient was tra nsferred to 3 S. Or recently, we will called by the 3 S. nurse, Ness, who states that the patient was still receiving high concentrations of oxygen, and her blood pressure was only about 65-70 systolic. We decided to transfer the patient to the intensive care unit. The patient currently has a partial rebreather in place, and saline running at 120 mL an hour. She did receive 3 L of fluid on the floor. She was too unstable with that blood pressure to go for a CAT scan of the abdomen. The primary service is thinking that the patient may have a bowel obstruction. Currently, her blood pressure is only 70/25. An NG tube was placed, and 2 half liters of dark material came out from the NG tube. The patient has a history of atrial fibrillation, CAD, COPD, diabetes, GERD, and hyperlipidemia. The patient apparently also has a history of post polio syndrome, spontaneous pneumothorax, and previous bowel resection. She's also had a triple bypass surgery back in 2013. She does have a history of previous tobacco use. Currently labs include a white count of 24.3, hemoglobin 9.3, hematocrit 27.8, platelet count 2 41,000. Blood gases show pO2 of 152, pCO2 of 20, and a pH is 7.40. This blood gases consistent with a severe metabolic acidosis. Sodium 134, potassium 3.1, chlorides 100, CO2 23, anion gap 11, BUN 25, creatinine 0.95. Troponin was 0.064. A abdominal film showed a nonspecific nonobstructive bowel gas pattern. A chest x-ray was normal. A CT angiogram was negative for pulmonary embolism. Progress note dated 06/06/2021. 65-year-old female, seen yesterday in consultation. She had lumbar spine surgery on June 02. The patient was discovered to have a low blood pressure, and low saturations, was transferred initially from the fourth floor, to the third floor. Because of worsening respiratory status and low blood pressure, she came to the intensive care unit yesterday. A computed tomography scan of the abdomen revealed a small bowel obstruction. The patient is currently on 5 L nasal cannula, saline at 100 mL an hour, and norepinephrine at 0.09 mcg/kg/m. An NG tube is in place. White count 24.5, hemoglobin 7.5, hematocrit 23.1, platelet count 198,000. Sodium 136, potassium 4, chlorides 109, CO2 19, anion gap 8, BUN 41, with a creatinine of 1.31. AST is 1284 and ALT is 1525. Troponin was 0.082. Pro-calcitonin level was 2.87. Cortisol was 64. Computed tomography scan of the abdomen was consistent with a distal mechanical small bowel obstruction. Objective - Vital Signs Vital signs: Vital Signs Temp 100.5 F H 06/06/21 04:00 Pulse 116 H 06/06/21 07:30 Resp 16 06/06/21 07:30 BP 118/53 06/06/21 07:30 Pulse Ox 95 06/06/21 07:30 Intake & Output 06/05/21 06/06/21 06/06/21 18:59 06:59 18:59 Intake Total 3852.817 8429.440 155.621 Output Total 3070 670 Balance -2021.682 1663.440 155.621 Weight 100.9 kg Intake: IV 840 1440 120 0.9 @ 50 840 1440 120 Intake, IV Titration 208.318 893.440 35.621 Amount Norepinephrine 8 mg In 208.318 893.440 35.621 Sodium Chloride 0.9% 250 ml @ 0.05 MCG/KG/MIN 8. 495 mls/hr IV .Q24H [facility] Rx#:[id number] Output: Gastric Drainage 2950 300 Urine 120 370 Other: Voiding Method Indwelling Catheter Indwelling Catheter - Exam No acute distress, oriented 3. Currently on 5 L nasal cannula. Saturations are 95%. HEENT examination is grossly unremarkable. NG tube in place. Neck supple. Full range of motion. No adenopathy thyromegaly or neck vein distention. A left sided double-lumen central line is noted. Cardiovascular examination reveals regular rhythm rate. S1-S2 normal. No S3 or S4. No discernible murmur noted. Heart sounds are distant. Heart rate 116 bpm. Lungs reveal mostly clear breath sounds. Mild scattered rhonchi. No wheezes or crackles. Abdomen is mildly distended with mild tenderness. No bowel sounds. No masses. Extremities are intact. No cyanosis clubbing or edema. Skin is without rash or lesion. Neurologic examination is brief but nonfocal. - Labs CBC & Chem 7: 06/06/21 05:34 06/06/21 05:34 Labs: Abnormal Lab Results - Last 24 Hours (Table) 06/05/21 06/05/21 06/05/21 Range/Units 13:25 13:25 18:32 WBC 27.4 H (3.8-10.6) k/uL RBC 2.80 L (3.80-5.40) m/uL Hgb 9.1 L (11.4-16.0) gm/dL Hct 28.1 L (34.0-46.0) % MCV 100.3 H (80.0-100.0) fL Neutrophils # (Manual) (1.3-7.7) k/uL Metamyelocytes # (Man) (0) k/uL Nucleated RBCs (0-0) /100 WBC Sodium (137-145) mmol/L Chloride (98-107) mmol/L Carbon Dioxide (22-30) mmol/L BUN (7-17) mg/dL Creatinine (0.52-1.04) mg/dL Glucose (74-99) mg/dL POC Glucose (mg/dL) 206 H (75-99) mg/dL Calcium (8.4-10.2) mg/dL AST (14-36) U/L ALT (4-34) U/L Troponin I 0.082 H* (0.000-0.034) ng/mL C-Reactive Protein (<1.0) mg/dL Total Protein (6.3-8.2) g/dL Albumin (3.5-5.0) g/dL Procalcitonin (0.02-0.09) ng/mL 06/05/21 06/05/21 06/06/21 Range/Units 21:18 21:29 05:34 WBC 24.5 H (3.8-10.6) k/uL RBC 2.33 L (3.80-5.40) m/uL Hgb 7.5 L D (11.4-16.0) gm/dL Hct 23.1 L (34.0-46.0) % MCV (80.0-100.0) fL Neutrophils # (Manual) 22.00 H (1.3-7.7) k/uL Metamyelocytes # (Man) 0.25 H (0) k/uL Nucleated RBCs 5 H (0-0) /100 WBC Sodium 135 L (137-145) mmol/L Chloride (98-107) mmol/L Carbon Dioxide 21 L (22-30) mmol/L BUN 38 H (7-17) mg/dL Creatinine 1.51 H (0.52-1.04) mg/dL Glucose 152 H (74-99) mg/dL POC Glucose (mg/dL) 170 H (75-99) mg/dL Calcium 7.3 L (8.4-10.2) mg/dL AST 2520 H (14-36) U/L ALT 1770 H (4-34) U/L Troponin I (0.000-0.034) ng/mL C-Reactive Protein (<1.0) mg/dL Total Protein 3.9 L (6.3-8.2) g/dL Albumin 1.9 L (3.5-5.0) g/dL Procalcitonin (0.02-0.09) ng/mL 06/06/21 06/06/21 06/06/21 Range/Units 05:34 05:34 06:36 WBC (3.8-10.6) k/uL RBC (3.80-5.40) m/uL Hgb (11.4-16.0) gm/dL Hct (34.0-46.0) % MCV (80.0-100.0) fL Neutrophils # (Manual) (1.3-7.7) k/uL Metamyelocytes # (Man) (0) k/uL Nucleated RBCs (0-0) /100 WBC Sodium 136 L (137-145) mmol/L Chloride 109 H (98-107) mmol/L Carbon Dioxide 19 L (22-30) mmol/L BUN 41 H (7-17) mg/dL Creatinine 1.31 H (0.52-1.04) mg/dL Glucose 149 H (74-99) mg/dL POC Glucose (mg/dL) 169 H (75-99) mg/dL Calcium 7.2 L (8.4-10.2) mg/dL AST 1284 H (14-36) U/L ALT 1525 H (4-34) U/L Troponin I (0.000-0.034) ng/mL C-Reactive Protein 30.1 H (<1.0) mg/dL Total Protein 4.0 L (6.3-8.2) g/dL Albumin 1.9 L (3.5-5.0) g/dL Procalcitonin 2.87 H (0.02-0.09) ng/mL Microbiology - Last 24 Hours (Table) 06/05/21 16:59 Urine Culture - Preliminary Urine,Catheterized Assessment and Plan Assessment: Small bowel obstruction. Hypotension, which may relate to underlying sepsis. Postop day #4, status post L2/S1 posterior lateral fusion, L2/S1 laminectomy, L2/L3 interbody fusion, L3/L4 interbody fusion, and L5/S1 interbody fusion, secondary to severe lumbar stenosis, radiculopathy, and spondylolisthesis. History of atrial fibrillation. History of CAD, status post bypass grafting, 2013. History of COPD, secondary to previous tobacco use. History of diabetes mellitus. History of gastroesophageal reflux disease. History of hyperlipidemia. History of postpolio syndrome. Prior history of bowel resection. History of spontaneous pneumothorax. Plan: Plan dated . The patient is seen in the intensive care unit, room 263. She is on a partial rebreather mask. Saturations are adequate. She's getting saline at 120 mL an hour. Blood pressure was only 70-75 systolic. I asked the nurses start norepinephrine. An NG tube was placed. 2 liters of brown material was noted to exit the NG tube. The patient will be going down for computed tomography scan of the abdomen, once her blood pressure is more stable. Additional recommendations and suggestions are forthcoming. Prognosis is guarded. Plan dated 06/06/2021. The patient is again seen in room 263 in the intensive care unit. The patient is on 5 L nasal cannula. She's been weaned down from the partial rebreather mask that she had yesterday. The patient is still on norepinephrine at 0.9 mcg/kg/m. An NG tube is in place. Today she was angry about having the NG tube. We told her that surgery would have to be the one to discontinue the NG tube. Computed tomography scan of the abdomen did reveal a mechanical small bowel obstruction. We will continue to follow. Labs, x-rays, medications are reviewed. The patient remains on Zosyn. Time with Patient: Greater than 30
--- NOTE | 2021-06-06 12:25 | P.PN ---
Subjective Progress Note Date: 06/06/21 This is a 65-year-old female patient of Dr. Leblanc who presented for an elective L2 to S1 decompression fusion. Patient has a long-standing history of chronic back pain and was found to have L2 to S1 severe stenosis L2 to S1 spondylosis resulting in left lower extremity weakness low back pain and radiculopathy. Patient has failed outpatient conservative management and pain control. She has past medical history of degenerative disc disease with history of lumbar laminectomy and stimulator placement for pain management. Additional medical history includes insulin-dependent diabetes mellitus, hypertension, hyperlipidemia and post polio syndrome. Patient is currently postop day 1. Patient is resting comfortably in bed. Patient reports improvement with lower extremity weakness and pain but does report she's been having issues with diarrhea since [facility] facility. At this time will order C. diff sample. Patient also has low potassium of 3.2 ordered replacement protocol. Patient also placed on sliding scale insulin coverage along with her home dose of long-acting insulin. At this time patient denies chest pain or shortness of breath. Patient denies nausea vomiting or diarrhea. Patient denies any urinary burning or frequency On 06/04/2021 patient was seen and examined on the medical floor she is alert and oriented 3 in no apparent distress she had episodes of nausea and vomiting during last night and is receiving Zofran and Compazine as needed she is also complaining of pain in the lower back otherwise she denies any complaints there is no fever or chills no headache or dizziness no chest pain no shortness of breath no cough no abdominal pain no diarrhea and no urinary symptoms On 06/05/2021 patient was and A-team this morning due to lethargy and tachycardia. Patient was also found to be hypotensive. CTA was performed at that time showing no signs of PE but marked dilated esophagus gastroesophageal junction visual portion of the stomach. Gastric bowel obstruction cannot be excluded. NG tube was placed and 2.5L of dark output was obtained. Cardiology service is consulted for tachycardia and elevated troponin. Upon examination patient was found to be alert and oriented but remained hypotensive with blood pressure in the 60s patient currently getting second liter bolus continue fluids at 120 critical care service is consulted. Patient has been moved higher level of care. Surgical services also consulted for possible obstruction. Computed tomography scan with contrast ordered. On 06/06/2021 patient was seen and examined in the ICU she is alert and responsive in no apparent distress, per her nurse patient is upset and wants her NG tube out and wants to be able to eat at this time. It was explained to her that she has a bowel obstruction and surgery are following. She is still complaining of some abdominal discomfort otherwise no complaints at this time, her temperature is 100.5 pulse 118 respiration 21 blood pressure 158/43 pulse ox 95% on room air laboratory data reveals a white blood count of 24.5 hemoglobin 7.5 platelet count 198 BUN 41 creatinine 1.31 AST 1284 ALT 1525 which is lower than yesterday. At this time patient remains in ICU she is followed by pulmonary critical care, infectious disease, Gen. surgery, and orthopedic s urgkieran, she was started on IV Zosyn yesterday, prognosis is guarded will follow closely Objective - Vital Signs Vital signs: Vital Signs Temp 100.5 F H 06/06/21 04:00 Pulse 116 H 06/06/21 07:30 Resp 16 06/06/21 07:30 BP 118/53 06/06/21 07:30 Pulse Ox 95 06/06/21 07:30 Intake & Output 06/05/21 06/06/21 06/06/21 18:59 06:59 18:59 Intake Total 4568.228 2712.440 155.621 Output Total 3070 670 Balance -202.682 1663.440 155.621 Weight 100.9 kg Intake: IV 840 1440 120 0.9 @ 50 840 1440 120 Intake, IV Titration 208.318 893.440 35.621 Amount Norepinephrine 8 mg In 208.318 893.440 35.621 Sodium Chloride 0.9% 250 ml @ 0.05 MCG/KG/MIN 8. 495 mls/hr IV .Q24H [facility] Rx#:[id number] Output: Gastric Drainage 2950 300 Urine 120 370 Other: Voiding Method Indwelling Catheter Indwelling Catheter - Exam Head normocephalic and atraumatic Neck supple no JVD Lungs clear to auscultation bilaterally no wheezing or crackles Heart regular rate and rhythm S1-S2, no rub or gallop Abdomen is soft nontender nondistended positive bowel sounds no hepatosplenomegaly Extremities no edema Neuro alert and orientated to 3 - Labs CBC & Chem 7: 06/06/21 05:34 06/06/21 05:34 Labs: Abnormal Lab Results - Last 24 Hours (Table) 06/05/21 06/05/21 06/05/21 Range/Units 13:25 13:25 18:32 WBC 27.4 H (3.8-10.6) k/uL RBC 2.80 L (3.80-5.40) m/uL Hgb 9.1 L (11.4-16.0) gm/dL Hct 28.1 L (34.0-46.0) % MCV 100.3 H (80.0-100.0) fL Neutrophils # (Manual) (1.3-7.7) k/uL Metamyelocytes # (Man) (0) k/uL Nucleated RBCs (0-0) /100 WBC Sodium (137-145) mmol/L Chloride (98-107) mmol/L Carbon Dioxide (22-30) mmol/L BUN (7-17) mg/dL Creatinine (0.52-1.04) mg/dL Glucose (74-99) mg/dL POC Glucose (mg/dL) 206 H (75-99) mg/dL Calcium (8.4-10.2) mg/dL AST (14-36) U/L ALT (4-34) U/L Troponin I 0.082 H* (0.000-0.034) ng/mL C-Reactive Protein (<1.0) mg/dL Total Protein (6.3-8.2) g/dL Albumin (3.5-5.0) g/dL Procalcitonin (0.02-0.09) ng/mL 06/05/21 06/05/21 06/06/21 Range/Units 21:18 21:29 05:34 WBC 24.5 H (3.8-10.6) k/uL RBC 2.33 L (3.80-5.40) m/uL Hgb 7.5 L D (11.4-16.0) gm/dL Hct 23.1 L (34.0-46.0) % MCV (80.0-100.0) fL Neutrophils # (Manual) 22.00 H (1.3-7.7) k/uL Metamyelocytes # (Man) 0.25 H (0) k/uL Nucleated RBCs 5 H (0-0) /100 WBC Sodium 135 L (137-145) mmol/L Chloride (98-107) mmol/L Carbon Dioxide 21 L (22-30) mmol/L BUN 38 H (7-17) mg/dL Creatinine 1.51 H (0.52-1.04) mg/dL Glucose 152 H (74-99) mg/dL POC Glucose (mg/dL) 170 H (75-99) mg/dL Calcium 7.3 L (8.4-10.2) mg/dL AST 2520 H (14-36) U/L ALT 1770 H (4-34) U/L Troponin I (0.000-0.034) ng/mL C-Reactive Protein (<1.0) mg/dL Total Protein 3.9 L (6.3-8.2) g/dL Albumin 1.9 L (3.5-5.0) g/dL Procalcitonin (0.02-0.09) ng/mL 06/06/21 06/06/21 06/06/21 Range/Units 05:34 05:34 06:36 WBC (3.8-10.6) k/uL RBC (3.80-5.40) m/uL Hgb (11.4-16.0) gm/dL Hct (34.0-46.0) % MCV (80.0-100.0) fL Neutrophils # (Manual) (1.3-7.7) k/uL Metamyelocytes # (Man) (0) k/uL Nucleated RBCs (0-0) /100 WBC Sodium 136 L (137-145) mmol/L Chloride 109 H (98-107) mmol/L Carbon Dioxide 19 L (22-30) mmol/L BUN 41 H (7-17) mg/dL Creatinine 1.31 H (0.52-1.04) mg/dL Glucose 149 H (74-99) mg/dL POC Glucose (mg/dL) 169 H (75-99) mg/dL Calcium 7.2 L (8.4-10.2) mg/dL AST 1284 H (14-36) U/L ALT 1525 H (4-34) U/L Troponin I (0.000-0.034) ng/mL C-Reactive Protein 30.1 H (<1.0) mg/dL Total Protein 4.0 L (6.3-8.2) g/dL Albumin 1.9 L (3.5-5.0) g/dL Procalcitonin 2.87 H (0.02-0.09) ng/mL Microbiology - Last 24 Hours (Table) 06/05/21 16:59 Urine Culture - Preliminary Urine,Catheterized Assessment and Plan Assessment: 1. History of L2 to S1 severe stenosis, L2 to S1 spondylosis. status post L2 to S1 decompression fusion with Dr. Mcdonough. Patient is currently postop day 1 2. History of right lower extremity weakness and right lower extremity radiculopathy and chronic back pain secondary to above 3. History of insulin-dependent diabetes mellitus. Patient maintained on long- acting insulin sliding scale coverage added 4. History of essential hypertension 5. History of hyperlipidemia 6. History of postpolio syndrome 7. History of degenerative disc disease with history of lumbar laminectomy stimulator placement for pain management 8. Hypokalemia. Replace per protocol 9. Diarrhea. Stool for C. diff ordered 10. Elevated troponin. Cardiology services consulted 11. Hypotension likely secondary from GI bleed and obstruction 12. GI obstruction with GI bleed. Surgical services consulted NG tube in place computed tomography scan with contrast ordered Patient moved to 3 S. for higher level of care Continue 2 L bolus Continue IV hydration Computed tomography scan of the abdomen ordered Cardiology and surgical service is consulted Critical care services also consulted for hypotension
--- NOTE | 2021-06-06 13:45 | P.PN ---
Subjective Progress Note Date: 06/06/21 Principal diagnosis: Small bowel obstruction versus ileus, aspiration pneumonitis, recent lumbar fusion. Patient seen and examined at bedside. She is irritated about the presence of her NG tube, she is inpatient for things to start improving. She denies abdominal pain, no present nausea, she's feeling quite thirsty and taking down ice chips at a rapid pace. Nasogastric tube remains in place with a gastric output. She admits to flatus today, no bowel movement. No reported fever or chills. Computed tomography scan of the abdomen and pelvis was obtained yesterday, interpreted as suggestive of mechanical small bowel obstruction without mention of transition point. Review of the images shows no evidence of ventral hernia or inguinal hernia, mild more or less uniform dilation of small bowel with some equalization, there is air and a small amount of stool present throughout the colon. I do not appreciate a transition point to implicate mechanical obstruction. Stomach remains somewhat dilated with nasogastric tube in adequate position. Her leukocytosis is still prominent to just above 25,000 but is starting to move in the right direction. She has a more normotensive appearance today. Objective - Vital Signs Vital signs: Vital Signs Temp 98.7 F 06/06/21 08:00 Pulse 114 H 06/06/21 12:00 Resp 17 06/06/21 12:00 BP 120/50 06/06/21 12:00 Pulse Ox 95 06/06/21 12:00 Intake & Output 06/05/21 06/06/21 06/06/21 18:59 06:59 18:59 Intake Total 7694.009 7597.440 1028.049 Output Total 3070 670 755 Balance - 1663.440 273.049 Weight 100.9 kg Intake: IV 840 1440 120 0.9 @ 50 840 1440 120 Intake, IV Titration 208.318 893.440 908.049 Amount Norepinephrine 8 mg In 208.318 893.440 88.049 Sodium Chloride 0.9% 250 ml @ 0.05 MCG/KG/MIN 8. 495 mls/hr IV .Q24H [facility] Rx#:[id number] Piperacillin-Tazobactam 3 100 .375 gm In Sodium Chloride 0.9% 100 ml @ 25 mls/hr IVPB Q8HR [facility] Rx# :[id number] Sodium Chloride 0.9% 1, 720 000 ml @ 120 mls/hr IV . Q8H20M [facility] Rx#:[id number] Output: Gastric Drainage 2950 300 600 Urine 120 370 155 Other: Voiding Method Indwelling Catheter Indwelling Catheter Indwelling Catheter - Constitutional General appearance: Present: no acute distress, obese - EENT Eyes: Present: PERRLA ENT: Present: hearing grossly normal, normal oropharynx - Respiratory Details: Lung sounds slightly coarse bilaterally. - Cardiovascular Rhythm: regular - Gastrointestinal Gastrointestinal Comment(s): Abdomen is soft, nontender to palpation, no guarding rebound or distention. - Psychiatric Psychiatric: Present: A&O x's 3 - Labs CBC & Chem 7: 06/06/21 05:34 06/06/21 05:34 Labs: Abnormal Lab Results - Last 24 Hours (Table) 06/05/21 06/05/21 06/05/21 Range/Units 13:25 13:25 18:32 WBC 27.4 H (3.8-10.6) k/uL RBC 2.80 L (3.80-5.40) m/uL Hgb 9.1 L (11.4-16.0) gm/dL Hct 28.1 L (34.0-46.0) % MCV 100.3 H (80.0-100.0) fL Neutrophils # (Manual) (1.3-7.7) k/uL Metamyelocytes # (Man) (0) k/uL Nucleated RBCs (0-0) /100 WBC Sodium (137-145) mmol/L Chloride (98-107) mmol/L Carbon Dioxide (22-30) mmol/L BUN (7-17) mg/dL Creatinine (0.52-1.04) mg/dL Glucose (74-99) mg/dL POC Glucose (mg/dL) 206 H (75-99) mg/dL Calcium (8.4-10.2) mg/dL AST (14-36) U/L ALT (4-34) U/L Troponin I 0.082 H* (0.000-0.034) ng/mL C-Reactive Protein (<1.0) mg/dL Total Protein (6.3-8.2) g/dL Albumin (3.5-5.0) g/dL Procalcitonin (0.02-0.09) ng/mL 02/18/22 02/18/22 02/19/22 Range/Units 21:18 21:29 05:34 WBC 24.5 H (3.8-10.6) k/uL RBC 2.33 L (3.80-5.40) m/uL Hgb 7.5 L D (11.4-16.0) gm/dL Hct 23.1 L (34.0-46.0) % MCV (80.0-100.0) fL Neutrophils # (Manual) 22.00 H (1.3-7.7) k/uL Metamyelocytes # (Man) 0.25 H (0) k/uL Nucleated RBCs 5 H (0-0) /100 WBC Sodium 135 L (137-145) mmol/L Chloride (98-107) mmol/L Carbon Dioxide 21 L (22-30) mmol/L BUN 38 H (7-17) mg/dL Creatinine 1.51 H (0.52-1.04) mg/dL Glucose 152 H (74-99) mg/dL POC Glucose (mg/dL) 170 H (75-99) mg/dL Calcium 7.3 L (8.4-10.2) mg/dL AST 2520 H (14-36) U/L ALT 1770 H (4-34) U/L Troponin I (0.000-0.034) ng/mL C-Reactive Protein (<1.0) mg/dL Total Protein 3.9 L (6.3-8.2) g/dL Albumin 1.9 L (3.5-5.0) g/dL Procalcitonin (0.02-0.09) ng/mL 06/06/21 06/06/21 06/06/21 Range/Units 05:34 05:34 06:36 WBC (3.8-10.6) k/uL RBC (3.80-5.40) m/uL Hgb (11.4-16.0) gm/dL Hct (34.0-46.0) % MCV (80.0-100.0) fL Neutrophils # (Manual) (1.3-7.7) k/uL Metamyelocytes # (Man) (0) k/uL Nucleated RBCs (0-0) /100 WBC Sodium 136 L (137-145) mmol/L Chloride 109 H (98-107) mmol/L Carbon Dioxide 19 L (22-30) mmol/L BUN 41 H (7-17) mg/dL Creatinine 1.31 H (0.52-1.04) mg/dL Glucose 149 H (74-99) mg/dL POC Glucose (mg/dL) 169 H (75-99) mg/dL Calcium 7.2 L (8.4-10.2) mg/dL AST 1284 H (14-36) U/L ALT 1525 H (4-34) U/L Troponin I (0.000-0.034) ng/mL C-Reactive Protein 30.1 H (<1.0) mg/dL Total Protein 4.0 L (6.3-8.2) g/dL Albumin 1.9 L (3.5-5.0) g/dL Procalcitonin 2.87 H (0.02-0.09) ng/mL Microbiology - Last 24 Hours (Table) 06/05/21 16:59 Urine Culture - Preliminary Urine,Catheterized Assessment and Plan Assessment: Assessment: 65-year-old lady with small bowel obstruction versus ileus on CT, no discrete transition point, there is air seen throughout the colon and patient admits to flatus today. No reports of abdominal pain or nausea. Suspect a degree of ileus, unable to exclude obstruction given current imaging studies. Abdominal exam is benign, patient seems to be improving with nasogastric decompression. No evidence of ventral or incisional hernia seen on physical exam or CT abdomen. History of intra-abdominal or retroperitoneal abscess managed with open washout, subsequent issues with Clostridium difficile colitis. Reported issues with diarrhea over the past few weeks. Unclear as to whether the patient has undergone routine screening colonoscopy in the past. Plan: Initial nonoperative management for presumed small bowel obstruction versus ileus with bowel rest and nasogastric decompression through the weekend. If she has interval worsening pain or suspicion of peritonitis she'll need a more urge nt exploration. If by Tuesday she is not showing signs of resolution will anticipate a Gastrografin challenge to clarify our decision making. Keep the head of the bed elevated at 30 at least at all times for aspiration precautions. Nothing by mouth except vital medications without IV equivalents. I suspect her leukocytosis largely relates to aspiration pneumonitis and subsequent degree of shock which seems to be settling. Abdominal exam presently is benign. Clostridium difficile toxin screen pending, suggests urinalysis for completeness. Blood cultures submitted and pending results. She was advised that if we take her to the operating room for an exploration in the short-term I suspect that she would likely not be extubatable initially and need a period of time in the ICU with ventilator support given her recent pulmonary insult. Time with Patient: Greater than 30
[2021-06-06] MEDS ORDERED: DEXTROSE 5% IN WATER 100 ML with AMIODARONE 150 MG IV ONE (14:24)
[2021-06-06] MEDS ORDERED: AMIODARONE 360 MG in DEXTROSE 5% IN WATER 200 ML IV ONE ×2 (14:24)
[2021-06-06] MEDS ORDERED: AMIODARONE IN DEXTROSE,ISO-OSM 150 MG/100 ML PLAST..BAG IV ONE (14:39)
--- NOTE | 2021-06-06 15:10 | P.PN ---
Subjective Progress Note Date: 06/06/21 This is a 65-year-old female with history of previous ischemic heart disease and bypass surgery, underwent back surgery. We saw her yesterday because of hypotension and abnormal troponin. Subsequent evaluation is consistent with small bowel ileus or obstruction with distended stomach. Patient had an NG tube and significant amount of drainage appears to still has NG tube. Patient went into atrial fibrillation today with rapid ventricular response. We are going initiated on amiodarone patient is still on Levophed for blood pressure support. Patient is not having any chest pain. A conservative management is taken for ileus versus obstruction. We also have to think about anticoagulation because of her risk factor profile. However, patient's hemoglobin dropped to 7 g. Will discuss with surgical colleagues. Prognosis is guarded. Lab values showed improving liver enzymes which could be secondary to congestion or hypoxic injury Objective - Vital Signs Vital signs: Vital Signs Temp 98.7 F 06/06/21 08:00 Pulse 154 H 06/06/21 14:00 Resp 22 06/06/21 14:00 BP 128/71 06/06/21 14:00 Pulse Ox 97 06/06/21 14:00 Intake & Output 06/05/21 06/06/21 06/06/21 18:59 06:59 18:59 Intake Total 3296.264 1046.440 1387.644 Output Total 3070 670 835 Balance -202.682 1663.440 552.644 Weight 100.9 kg Intake: IV 840 1440 120 0.9 @ 50 840 1440 120 Intake, IV Titration 208.318 992.537 0499.644 Amount Dextrose 5% in Water 100 100 ml @ 618 mls/hr IV .Q10M ONE with Amiodarone 150 mg Rx#:[id number] Norepinephrine 8 mg In 208.318 893.440 107.644 Sodium Chloride 0.9% 250 ml @ 0.05 MCG/KG/MIN 8. 495 mls/hr IV .Q24H [facility] Rx#:[id number] Piperacillin-Tazobactam 3 100 .375 gm In Sodium Chloride 0.9% 100 ml @ 25 mls/hr IVPB Q8HR [facility] Rx# :[id number] Sodium Chloride 0.9% 1, 960 000 ml @ 120 mls/hr IV . Q8H20M [facility] Rx#:[id number] Output: Gastric Drainage 2950 300 600 Urine 120 370 235 Other: Voiding Method Indwelling Catheter Indwelling Catheter Indwelling Catheter - Exam GENERAL EXAM: Patient is alert and oriented and appears to be in mild to moderate distress HEENT: Normocephalic. Normal reaction of pupils, equal size, normal range of extraocular motion. No erythema or exudates in the throat. NECK: No masses, no nuchal rigidity. CHEST: No chest wall deformity. LUNGS: Diminished breath sounds HEART: S1 and S2 normal with no audible mumurs or gallops. Regular rhythm, femorals equal on both sides.. ABDOMEN: Distended SKIN: No rashes CENTRAL NERVOUS SYSTEM: No focal deficits. EXTREMITIES: No cyanosis, clubbing or edema. - Labs CBC & Chem 7: 06/06/21 05:34 06/06/21 05:34 Labs: Abnormal Lab Results - Last 24 Hours (Table) 06/05/21 06/05/21 06/05/21 Range/Units 18:32 21:18 21:29 WBC (3.8-10.6) k/uL RBC (3.80-5.40) m/uL Hgb (11.4-16.0) gm/dL Hct (34.0-46.0) % Neutrophils # (Manual) (1.3-7.7) k/uL Metamyelocytes # (Man) (0) k/uL Nucleated RBCs (0-0) /100 WBC Sodium 135 L (137-145) mmol/L Chloride (98-107) mmol/L Carbon Dioxide 21 L (22-30) mmol/L BUN 38 H (7-17) mg/dL Creatinine 1.51 H (0.52-1.04) mg/dL Glucose 152 H (74-99) mg/dL POC Glucose (mg/dL) 206 H 170 H (75-99) mg/dL Calcium 7.3 L (8.4-10.2) mg/dL AST 2520 H (14-36) U/L ALT 1770 H (4-34) U/L C-Reactive Protein (<1.0) mg/dL Total Protein 3.9 L (6.3-8.2) g/dL Albumin 1.9 L (3.5-5.0) g/dL Procalcitonin (0.02-0.09) ng/mL 06/06/21 06/06/21 06/06/21 Range/Units 05:34 05:34 05:34 WBC 24.5 H (3.8-10.6) k/uL RBC 2.33 L (3.80-5.40) m/uL Hgb 7.5 L D (11.4-16.0) gm/dL Hct 23.1 L (34.0-46.0) % Neutrophils # (Manual) 22.00 H (1.3-7.7) k/uL Metamyelocytes # (Man) 0.25 H (0) k/uL Nucleated RBCs 5 H (0-0) /100 WBC Sodium 136 L (137-145) mmol/L Chloride 109 H (98-107) mmol/L Carbon Dioxide 19 L (22-30) mmol/L BUN 41 H (7-17) mg/dL Creatinine 1.31 H (0.52-1.04) mg/dL Glucose 149 H (74-99) mg/dL POC Glucose (mg/dL) (75-99) mg/dL Calcium 7.2 L (8.4-10.2) mg/dL AST 1284 H (14-36) U/L ALT 1525 H (4-34) U/L C-Reactive Protein 30.1 H (<1.0) mg/dL Total Protein 4.0 L (6.3-8.2) g/dL Albumin 1.9 L (3.5-5.0) g/dL Procalcitonin 2.87 H (0.02-0.09) ng/mL 06/06/21 Range/Units 06:36 WBC (3.8-10.6) k/uL RBC (3.80-5.40) m/uL Hgb (11.4-16.0) gm/dL Hct (34.0-46.0) % Neutrophils # (Manual) (1.3-7.7) k/uL Metamyelocytes # (Man) (0) k/uL Nucleated RBCs (0-0) /100 WBC Sodium (137-145) mmol/L Chloride (98-107) mmol/L Carbon Dioxide (22-30) mmol/L BUN (7-17) mg/dL Creatinine (0.52-1.04) mg/dL Glucose (74-99) mg/dL POC Glucose (mg/dL) 169 H (75-99) mg/dL Calcium (8.4-10.2) mg/dL AST (14-36) U/L ALT (4-34) U/L C-Reactive Protein (<1.0) mg/dL Total Protein (6.3-8.2) g/dL Albumin (3.5-5.0) g/dL Procalcitonin (0.02-0.09) ng/mL Microbiology - Last 24 Hours (Table) 06/05/21 16:59 Urine Culture - Preliminary Urine,Catheterized Assessment and Plan (1) Hypotension Current Visit: Yes Status: Acute Code(s): I95.9 - HYPOTENSION, UNSPECIFIED SNOMED Code(s): 77581358 (2) Post-operative nausea and vomiting Current Visit: Yes Status: Acute Code(s): R11.2 - NAUSEA WITH VOMITING, UNSPECIFIED; Z98.890 - OTHER SPECIFIED POSTPROCEDURAL STATES SNOMED Code(s): 4332421 (3) S/P lumbar fusion Current Visit: Yes Status: Acute Code(s): Z98.1 - ARTHRODESIS STATUS SNOMED Code(s): 90428078667341 (4) Spinal stenosis of lumbar region Current Visit: Yes Status: Acute Code(s): M48.061 - SPINAL STENOSIS, LUMBAR REGION WITHOUT NEUROGENIC CONNIE SNOMED Code(s): 13439558 (5) Gastric outflow obstruction Current Visit: Yes Status: Acute Code(s): K31.1 - ADULT HYPERTROPHIC PYLORIC STENOSIS SNOMED Code(s): 715356189 (6) GI bleeding Current Visit: Yes Status: Acute Code(s): K92.2 - GASTROINTESTINAL HEMORRHAGE, UNSPECIFIED SNOMED Code(s): 66900471 (7) History of coronary artery bypass graft Current Visit: Yes Status: Acute Code(s): Z95.1 - PRESENCE OF AORTOCORONARY BYPASS GRAFT SNOMED Code(s): 132088783 (8) History of hypertension Current Visit: Yes Status: Acute Code(s): Z86.79 - PERSONAL HISTORY OF OTHER DISEASES OF THE CIRCULATORY SYSTEM SNOMED Code(s): 638439781 Plan: Patient went into atrial fibrillation with rapid ventricular response. We are initiating her on IV amiodarone. We'll also should consider heparin or anticoagulation when okayed by surgical team. Meanwhile, continue current management
[2021-06-06 18:26] LABS: Glucose,Whole Blood 173 mg/dL (75-99)
[2021-06-06 19:58] LABS: Glucose,Whole Blood 153 mg/dL (75-99)
[2021-06-06] MEDS: AMIODARONE 450 MG in DEXTROSE 5% IN WATER 250 ML IV SCH ×2 (20:06)
--- NOTE | 2021-06-06 22:28 | XR ---
EXAMINATION TYPE: XR chest 1V portable DATE OF EXAM: 06/06/2021 COMPARISON: 06/05/2021 HISTORY: Short of breath. Tube placement. TECHNIQUE: FINDINGS: There is nasogastric tube and the tip is likely in the stomach. There is neural stimulator in the thoracic spine. There is some atelectasis left lower lobe. No heart failure seen. There are sk in susy over the right side of the lower chest. There are sternal wires. IMPRESSION: There is some atelectasis left lung base increased compared to yesterday. No heart failur e. NG tube is in the stomach.
[2021-06-07] MEDS: HYDROmorphone 1 MG/ML 1 ML SYRINGE IVP PRN ×5 (00:27→20:45)
[2021-06-07 06:32] LABS: Basophils % (A) 0 %; Eosinophils # (A) 0.1 k/uL (0-0.7); Eosinophils % (A) 1 %; Lymphocytes # (A) 0.6 k/uL (1.0-4.8); Lymphocytes % (A) 5 %; MCH 31.8 pg (25.0-35.0); MCHC 32.3 g/dL (31.0-37.0); MCV 98.2 fL (80.0-100.0); Mean Platelet Volume 8.8; Monocytes # (A) 0.4 k/uL (0-1.0); Monocytes % (A) 4 %; Neutrophils # (A) 9.2 k/uL (1.3-7.7); Neutrophils % (A) 90 %; Platelet Count 117 k/uL (150-450); RBC 1.97 m/uL (3.80-5.40); WBC 10.3 k/uL (3.8-10.6)
[2021-06-07 06:50] LABS: HCT 19.4 % (34.0-46.0); HGB 6.3 gm/dL (11.4-16.0)
[2021-06-07 06:52] LABS: AST 239 U/L (14-36); African American GFR (CKD) >90 (>60 ml/min/1.73 sqM); Albumin 1.8 g/dL (3.5-5.0); Alkaline Phosphatase 58 U/L (38-126); Anion Gap 3 mmol/L; Blood Urea Nitrogen 29 mg/dL (7-17); Calcium 7.3 mg/dL (8.4-10.2); Carbon Dioxide 23 mmol/L (22-30); Chloride 115 mmol/L (98-107); Glucose 115 mg/dL (74-99); Non-African American GFR(CKD) 88 (>60 ml/min/1.73 sqM); Potassium 3.5 mmol/L (3.5-5.1); Sodium 141 mmol/L (137-145); Total Bilirubin 0.8 mg/dL (0.2-1.3)
[2021-06-07 06:54] LABS: Glucose,Whole Blood 121 mg/dL (75-99)
[2021-06-07 07:13] LABS: ALT 852 U/L (4-34)
[2021-06-07] MEDS ORDERED: Potassium Replacement Protocol 1 EACH MISC MISCELLANE PRN ×2 (07:49→15:32)
[2021-06-07] MEDS: POTASSIUM CHLORIDE 20 MEQ in WATER FOR INJECTION 1 100ML.BAG IVPB SCH ×4 (08:11→17:51)
[2021-06-07] MEDS: PANTOPRAZOLE 40 MG/10 ML VIAL IVP SCH (08:15)
[2021-06-07] MEDS: INSULIN ASPART (NovoLOG) 100 UNIT/ML VIAL SQ SCH ×4 (08:18→21:48)
--- NOTE | 2021-06-07 09:09 | P.PN ---
Subjective Progress Note Date: 06/07/21 Principal diagnosis: L2 to S1 spondylosis with stenosis L4-L5 grade 1 spondylolisthesis Patient seen and examined she is doing fairly well. She is still nothing by mouth she wants ice chips. She has not been up and so today we discussed with nursing she is getting up and move around. Her hemoglobin was low this morning at 6.8 and so she will be transfused. She denies any numbness or tingling. States her back feels pretty well. She denies any fevers chills shortness of breath or chest pain at this time. Objective - Vital Signs Vital signs: Vital Signs Temp 98.4 F 06/07/21 04:00 Pulse 92 06/07/21 07:00 Resp 16 06/07/21 07:00 BP 117/46 06/07/21 07:00 Pulse Ox 96 06/07/21 07:00 Intake & Output 06/06/21 06/07/21 06/07/21 18:59 06:59 18:59 Intake Total 1956.547 8714 120 Output Total 1085 1775 Balance 782.644 -335 120 Intake: IV 120 0.9 @ 50 120 Intake, IV Titration 7644.266 8271 120 Amount Dextrose 5% in Water 100 100 ml @ 618 mls/hr IV .Q10M ONE with Amiodarone 150 mg Rx#:[id number] Norepinephrine 8 mg In 107.644 Sodium Chloride 0.9% 250 ml @ 0.05 MCG/KG/MIN 8. 495 mls/hr IV .Q24H [facility] Rx#:[id number] Piperacillin-Tazobactam 3 100 .375 gm In Sodium Chloride 0.9% 100 ml @ 25 mls/hr IVPB Q8HR [facility] Rx# :[id number] Sodium Chloride 0.9% 1, 1440 1440 120 000 ml @ 120 mls/hr IV . Q8H20M [facility] Rx#:[id number] Output: Gastric Drainage 600 650 Drainage 180 Right Lower Back 180 Urine 485 945 Other: Voiding Method Indwelling Catheter Indwelling Catheter - Exam Exam was repeated no significant changes today. Drain remain stable despite anticoagulation. We will likely pull tomorrow Patient is alert and oriented 3 appears well-nourished well-hydrated They do not appear septic. Lower extremities with 4/5 strength in all major muscle groups. Right lower extremity is still fairly weak in hip flexion however is getting better. Upper extremities show 4+/5 strength in all major muscle groups. [2]/4DTR all UE and LE b/l Patient shows a negative Homans, Ward's, negative Babinski's negative clonus bilaterally. negative straight leg raise bilaterally. No tensioning signs. Cranial nerves II through XII are grossly intact. There is FROM that is painless of the b/l UE and LE in all major joints [w/o pa in]. They are intact to light touch sensation in L2 to S1 nerve distribution. Patient has palpable dorsalis pedis was posterior tibial pulses. Compartments are soft and compressible. Drain has 10 mL it was recently emptied - Labs CBC & Chem 7: 06/07/21 06:07 06/07/21 06:07 Labs: Abnormal Lab Results - Last 24 Hours (Table) 06/06/21 06/06/21 06/06/21 Range/Units 05:34 18:25 19:55 RBC (3.80-5.40) m/uL Hgb (11.4-16.0) gm/dL Hct (34.0-46.0) % Plt Count (150-450) k/uL Neutrophils # (1.3-7.7) k/uL Lymphocytes # (1.0-4.8) k/uL Chloride (98-107) mmol/L BUN (7-17) mg/dL Glucose (74-99) mg/dL POC Glucose (mg/dL) 173 H 153 H (75-99) mg/dL Calcium (8.4-10.2) mg/dL AST (14-36) U/L ALT (4-34) U/L Total Protein (6.3-8.2) g/dL Albumin (3.5-5.0) g/dL Procalcitonin 2.87 H (0.02-0.09) ng/mL Crossmatch 06/07/21 06/07/21 06/07/21 Range/Units 06:07 06:07 06:53 RBC 1.97 L (3.80-5.40) m/uL Hgb 6.3 L* (11.4-16.0) gm/dL Hct 19.4 L* (34.0-46.0) % Plt Count 117 L (150-450) k/uL Neutrophils # 9.2 H (1.3-7.7) k/uL Lymphocytes # 0.6 L (1.0-4.8) k/uL Chloride 115 H (98-107) mmol/L BUN 29 H (7-17) mg/dL Glucose 115 H (74-99) mg/dL POC Glucose (mg/dL) 121 H (75-99) mg/dL Calcium 7.3 L (8.4-10.2) mg/dL AST 239 H (14-36) U/L ALT 852 H (4-34) U/L Total Protein 4.0 L (6.3-8.2) g/dL Albumin 1.8 L (3.5-5.0) g/dL Procalcitonin (0.02-0.09) ng/mL Crossmatch 06/07/21 Range/Units 08:00 RBC (3.80-5.40) m/uL Hgb (11.4-16.0) gm/dL Hct (34.0-46.0) % Plt Count (150-450) k/uL Neutrophils # (1.3-7.7) k/uL Lymphocytes # (1.0-4.8) k/uL Chloride (98-107) mmol/L BUN (7-17) mg/dL Glucose (74-99) mg/dL POC Glucose (mg/dL) (75-99) mg/dL Calcium (8.4-10.2) mg/dL AST (14-36) U/L ALT (4-34) U/L Total Protein (6.3-8.2) g/dL Albumin (3.5-5.0) g/dL Procalcitonin (0.02-0.09) ng/mL Crossmatch See Detail Microbiology - Last 24 Hours (Table) 06/05/21 13:25 Blood Culture - Preliminary Blood No Growth after 24 hours Assessment and Plan Assessment: 65-year-old female postop day 5 L2 to S1 decompression fusion 1. L2-S1 severe stenosis 2.L2-S1 spondylosis 3. right lower extremity weakness 4. right lower extremity radiculopathy 5. L2-3 large HNP with sequestration 6. Mechanical low back pain 7. Acute bowel obstruction Plan: -Appreciate gift consultant and team management. UP AND ABOUT TODAY -Activity: Ambulate QID, OOB all meals, up and about, limit lifting bending twisting to less than 5 lbs. Use walker or cane if needed for stability. -Daily PT/OT, increase ambulation strength and balance. -No braces needed -Pain control: Adequate at this time -Meds: reviewed, cont with zofran and compazine for nausea. Pt on dexamethasone as well PO, not ideal for fusion and healing purposes but OK for need of antinausea. -GI ppx: senna, Miralax -DC stacy when up and about, bedside commode if needed -DVT PPX: Heparin SQ; TEDs; SCDs; Early ambulation -Hygiene: Shower OK. Maintain dressing clean and dry. Meticulous cleaning after BMs away from incision site -Drains: Maintain for now. Record output -Encourage IS 10x/hr -Pulmonary general surgery and medical management -Dispo: Pending
[2021-06-07] MEDS: PIPERACILLIN-TAZOBACTAM 3.375 GM in SODIUM CHLORIDE 0.9% 100 ML IVPB SCH ×3 (09:23→23:05)
--- NOTE | 2021-06-07 10:12 | P.PN ---
Subjective Progress Note Date: 06/07/21 This is a 65-year-old female patient of Dr. Leblanc who presented for an elective L2 to S1 decompression fusion. Patient has a long-standing history of chronic back pain and was found to have L2 to S1 severe stenosis L2 to S1 spondylosis resulting in left lower extremity weakness low back pain and radiculopathy. Patient has failed outpatient conservative management and pain control. She has past medical history of degenerative disc disease with history of lumbar laminectomy and stimulator placement for pain management. Additional medical history includes insulin-dependent diabetes mellitus, hypertension, hyperlipidemia and post polio syndrome. Patient is currently postop day 1. Patient is resting comfortably in bed. Patient reports improvement with lower extremity weakness and pain but does report she's been having issues with diarrhea since [facility] facility. At this time will order C. diff sample. Patient also has low potassium of 3.2 ordered replacement protocol. Patient also placed on sliding scale insulin coverage along with her home dose of long-acting insulin. At this time patient denies chest pain or shortness of breath. Patient denies nausea vomiting or diarrhea. Patient denies any urinary burning or frequency On 06/04/2021 patient was seen and examined on the medical floor she is alert and oriented 3 in no apparent distress she had episodes of nausea and vomiting during last night and is receiving Zofran and Compazine as needed she is also complaining of pain in the lower back otherwise she denies any complaints there is no fever or chills no headache or dizziness no chest pain no shortness of breath no cough no abdominal pain no diarrhea and no urinary symptoms On 06/05/2021 patient was and A-team this morning due to lethargy and tachycardia. Patient was also found to be hypotensive. CTA was performed at that time showing no signs of PE but marked dilated esophagus gastroesophageal junction visual portion of the stomach. Gastric bowel obstruction cannot be excluded. NG tube was placed and 2.5L of dark output was obtained. Cardiology service is consulted for tachycardia and elevated troponin. Upon examination patient was found to be alert and oriented but remained hypotensive with blood pressure in the 60s patient currently getting second liter bolus continue fluids at 120 critical care service is consulted. Patient has been moved higher level of care. Surgical services also consulted for possible obstruction. Computed tomography scan with contrast ordered. On 06/06/2021 patient was seen and examined in the ICU she is alert and responsive in no apparent distress, per her nurse patient is upset and wants her NG tube out and wants to be able to eat at this time. It was explained to her that she has a bowel obstruction and surgery are following. She is still complaining of some abdominal discomfort otherwise no complaints at this time, her temperature is 100.5 pulse 118 respiration 21 blood pressure 158/43 pulse ox 95% on room air laboratory data reveals a white blood count of 24.5 hemoglobin 7.5 platelet count 198 BUN 41 creatinine 1.31 AST 1284 ALT 1525 which is lower than yesterday. At this time patient remains in ICU she is followed by pulmonary critical care, infectious disease, Gen. surgery, and orthopedic s jayleen, she was started on IV Zosyn yesterday, prognosis is guarded will follow closely On 06/07/2021 patient maintained in the intensive care unit. Patient is alert and oriented 3. Hemoglobin today is 31 unit of PRBCs have been ordered. Patient's upset that she has NG tube. Per nursing staff NG tube was pulled out last night and was replaced immediately put out 650. NG output appears green. Liver enzymes are trending down. Patient is in sinus rhythm. Patient remains on IV Zosyn. White blood cell 10.3. At this time patient denies chest pain or shortness of breath. Patient denies any nausea vomiting or diarrhea. Patient denies any urinary burning or frequency Objective - Vital Signs Vital signs: Vital Signs Temp 97.8 F 06/07/21 10:00 Pulse 92 06/07/21 10:00 Resp 14 06/07/21 10:00 BP 107/43 06/07/21 10:00 Pulse Ox 94 L 06/07/21 10:00 Intake & Output 06/06/21 06/07/21 06/07/21 18:59 06:59 18:59 Intake Total 7493.510 1907 330 Output Total 1085 1775 330 Balance 782.644 -335 0 Intake: IV 120 0.9 @ 50 120 Intake, IV Titration 0690.613 9449 330 Amount Dextrose 5% in Water 100 100 ml @ 618 mls/hr IV .Q10M ONE with Amiodarone 150 mg Rx#:[id number] Norepinephrine 8 mg In 107.644 Sodium Chloride 0.9% 250 ml @ 0.05 MCG/KG/MIN 8. 495 mls/hr IV .Q24H [facility] Rx#:[id number] Piperacillin-Tazobactam 3 100 50 .375 gm In Sodium Chloride 0.9% 100 ml @ 25 mls/hr IVPB Q8HR [facility] Rx# :[id number] Potassium Chloride 20 meq 100 In Water For Injection 1 100ml.bag @ 50 mls/hr IVPB Q2H [facility] Rx#: [id number] Sodium Chloride 0.9% 1, 1440 1440 180 000 ml @ 120 mls/hr IV . Q8H20M [facility] Rx#:[id number] Blood Product 0 Rc As-1 Unit 0 [id number] Output: Gastric Drainage 600 650 0 Drainage 180 Right Lower Back 180 Urine 485 945 330 Other: Voiding Method Indwelling Catheter Indwelling Catheter - Exam Head normocephalic and atraumatic Neck supple no JVD Lungs clear to auscultation bilaterally no wheezing or crackles Heart regular rate and rhythm S1-S2, no rub or gallop Abdomen is soft nontender nondistended positive bowel sounds no hepatosplenomegaly Extremities no edema Neuro alert and orientated to 3 - Labs CBC & Chem 7: 06/07/21 06:07 06/07/21 06:07 Labs: Abnormal Lab Results - Last 24 Hours (Table) 06/06/21 06/06/21 06/07/21 Range/Units 18:25 19:55 06:07 RBC 1.97 L (3.80-5.40) m/uL Hgb 6.3 L* (11.4-16.0) gm/dL Hct 19.4 L* (34.0-46.0) % Plt Count 117 L (150-450) k/uL Neutrophils # 9.2 H (1.3-7.7) k/uL Lymphocytes # 0.6 L (1.0-4.8) k/uL Chloride (98-107) mmol/L BUN (7-17) mg/dL Glucose (74-99) mg/dL POC Glucose (mg/dL) 173 H 153 H (75-99) mg/dL Calcium (8.4-10.2) mg/dL AST (14-36) U/L ALT (4-34) U/L Total Protein (6.3-8.2) g/dL Albumin (3.5-5.0) g/dL Crossmatch 06/07/21 06/07/21 06/07/21 Range/Units 06:07 06:53 08:00 RBC (3.80-5.40) m/uL Hgb (11.4-16.0) gm/dL Hct (34.0-46.0) % Plt Count (150-450) k/uL Neutrophils # (1.3-7.7) k/uL Lymphocytes # (1.0-4.8) k/uL Chloride 115 H (98-107) mmol/L BUN 29 H (7-17) mg/dL Glucose 115 H (74-99) mg/dL POC Glucose (mg/dL) 121 H (75-99) mg/dL Calcium 7.3 L (8.4-10.2) mg/dL AST 239 H (14-36) U/L ALT 852 H (4-34) U/L Total Protein 4.0 L (6.3-8.2) g/dL Albumin 1.8 L (3.5-5.0) g/dL Crossmatch See Detail Microbiology - Last 24 Hours (Table) 06/05/21 13:25 Blood Culture - Preliminary Blood No Growth after 24 hours Assessment and Plan Assessment: 1. History of L2 to S1 severe stenosis, L2 to S1 spondylosis. status post L2 to S1 decompression fusion with Dr. Mcdonough. Patient is currently postop day 4 2. History of right lower extremity weakness and right lower extremity radiculopathy and chronic back pain secondary to above 3. History of insulin-dependent diabetes mellitus. Patient maintained on long- acting insulin sliding scale coverage added 4. History of essential hypertension 5. History of hyperlipidemia 6. History of postpolio syndrome 7. History of degenerative disc disease with history of lumbar laminectomy stimulator placement for pain management 8. Hypokalemia. Replace per protocol 9. Diarrhea. Stool for C. diff ordered 10. Elevated troponin. Cardiology services consulted 11. Hypotension likely secondary from possible sepsis 12. Acute GI obstruction. Surgical services consulted NG tube in place 13. Atrial fibrillation with rapid ventricular response. Patient has been started on amiodarone drip cardiology services cardiology services following 14. Possible aspiration pneumonia. Dr. Izquierdo has been consulted patient started on Zosyn Patient remains in the intensive care unit Surgical, cardiology, critical care and infectious disease services following Patient remains with NG tube placement Maintained on IV antibiotics 1 unit of PRBCs ordered for 06/07/2031 Repeat labs ordered
[2021-06-07] MEDS ORDERED: LORazepam 2 MG/ML INJ IV PRN (10:28)
[2021-06-07] MEDS: AMIODARONE 450 MG in DEXTROSE 5% IN WATER 250 ML IV SCH ×2 (11:02)
[2021-06-07] MEDS: NYSTATIN 100,000 UNIT/GM OINT 30 GM TUBE TOPICAL SCH ×2 (11:34→20:46)
--- NOTE | 2021-06-07 11:50 | P.PN ---
Subjective Progress Note Date: 06/07/21 This is a 65-year-old female with history of previous ischemic heart disease and bypass surgery, underwent back surgery. We saw her yesterday because of hypotension and abnormal troponin. Subsequent evaluation is consistent with small bowel ileus or obstruction with distended stomach. Patient had an NG tube and significant amount of drainage appears to still has NG tube. Patient went into atrial fibrillation today with rapid ventricular response. We are going initiated on amiodarone patient is still on Levophed for blood pressure support. Patient is not having any chest pain. A conservative management is taken for ileus versus obstruction. We also have to think about anticoagulation because of her risk factor profile. However, patient's hemoglobin dropped to 7 g. Will discuss with surgical colleagues. Prognosis is guarded. Lab values showed improving liver enzymes which could be secondary to congestion or hypoxic injury 06/07/2021: This patient seemed to be doing relatively better. Complaints of thirst and wants to drink fluids. Still has NG tube and nothing by mouth. Patient went into a defibrillator yesterday but converted back to sinus rhythm. She is on IV amiodarone drip. As long as patient is nothing by mouth, we'll continue IV amiodarone at 0.5 mg. Patient hemoglobin dropped below 7. Patient is going to get transfusion. She denies any chest pain or complaints of shortness of breath. Lungs are clear. Heart is regular. We'll continue current medical therapy. When patient is able to eat and take medication by mouth, we will start her on by mouth beta blockers. Patient may not be a good candidate for anticoagulation therapy because of dropping hemoglobin. We'll check with the surgical team also. Prognosis is guarded Objective - Vital Signs Vital signs: Vital Signs Temp 98 F 06/07/21 10:40 Pulse 92 06/07/21 11:00 Resp 16 06/07/21 11:00 BP 108/48 06/07/21 11:00 Pulse Ox 100 06/07/21 11:00 Intake & Output 06/06/21 06/07/21 06/07/21 18:59 06:59 18:59 Intake Total 3130.859 5520 673.894 Output Total 1085 1775 705 Balance 782.644 -335 -31.106 Intake: IV 120 0.9 @ 50 120 Intake, IV Titration 2369.046 6901 673.894 Amount Amiodarone 450 mg In 248.894 Dextrose 5% in Water 250 ml @ 0.5 MG/MIN 16.667 mls/hr IV .Q15H [facility] Rx#: [id number] Dextrose 5% in Water 100 100 ml @ 618 mls/hr IV .Q10M ONE with Amiodarone 150 mg Rx#:[id number] Norepinephrine 8 mg In 107.644 Sodium Chloride 0.9% 250 ml @ 0.05 MCG/KG/MIN 8. 495 mls/hr IV .Q24H [facility] Rx#:[id number] Piperacillin-Tazobactam 3 100 75 .375 gm In Sodium Chloride 0.9% 100 ml @ 25 mls/hr IVPB Q8HR [facility] Rx# :[id number] Potassium Chloride 20 meq 150 In Water For Injection 1 100ml.bag @ 50 mls/hr IVPB Q2H [facility] Rx#: [id number] Sodium Chloride 0.9% 1, 1440 1440 200 000 ml @ 120 mls/hr IV . Q8H20M [facility] Rx#:[id number] Blood Product 0 Rc As-1 Unit 0 [id number] Output: Gastric Drainage 600 650 250 Drainage 180 Right Lower Back 180 Urine 485 945 455 Other: Voiding Method Indwelling Catheter Indwelling Catheter Indwelling Catheter - Exam GENERAL EXAM: Patient is alert and oriented and appears to be in mild to moderate distress HEENT: Normocephalic. Normal reaction of pupils, equal size, normal range of extraocular motion. No erythema or exudates in the throat. NECK: No masses, no nuchal rigidity. CHEST: No chest wall deformity. LUNGS: Diminished breath sounds HEART: S1 and S2 normal with no audible mumurs or gallops. Regular rhythm, femorals equal on both sides.. ABDOMEN: Distended SKIN: No rashes CENTRAL NERVOUS SYSTEM: No focal deficits. EXTREMITIES: No cyanosis, clubbing or edema. - Labs CBC & Chem 7: 06/07/21 06:07 06/07/21 06:07 Labs: Abnormal Lab Results - Last 24 Hours (Table) 06/06/21 06/06/21 06/07/21 Range/Units 18:25 19:55 06:07 RBC 1.97 L (3.80-5.40) m/uL Hgb 6.3 L* (11.4-16.0) gm/dL Hct 19.4 L* (34.0-46.0) % Plt Count 117 L (150-450) k/uL Neutrophils # 9.2 H (1.3-7.7) k/uL Lymphocytes # 0.6 L (1.0-4.8) k/uL Chloride (98-107) mmol/L BUN (7-17) mg/dL Glucose (74-99) mg/dL POC Glucose (mg/dL) 173 H 153 H (75-99) mg/dL Calcium (8.4-10.2) mg/dL AST (14-36) U/L ALT (4-34) U/L Total Protein (6.3-8.2) g/dL Albumin (3.5-5.0) g/dL Crossmatch 06/07/21 06/07/21 06/07/21 Range/Units 06:07 06:53 08:00 RBC (3.80-5.40) m/uL Hgb (11.4-16.0) gm/dL Hct (34.0-46.0) % Plt Count (150-450) k/uL Neutrophils # (1.3-7.7) k/uL Lymphocytes # (1.0-4.8) k/uL Chloride 115 H (98-107) mmol/L BUN 29 H (7-17) mg/dL Glucose 115 H (74-99) mg/dL POC Glucose (mg/dL) 121 H (75-99) mg/dL Calcium 7.3 L (8.4-10.2) mg/dL AST 239 H (14-36) U/L ALT 852 H (4-34) U/L Total Protein 4.0 L (6.3-8.2) g/dL Albumin 1.8 L (3.5-5.0) g/dL Crossmatch See Detail Microbiology - Last 24 Hours (Table) 06/05/21 13:25 Blood Culture - Preliminary Blood No Growth after 24 hours Assessment and Plan (1) Hypotension Current Visit: Yes Status: Acute Code(s): I95.9 - HYPOTENSION, UNSPECIFIED SNOMED Code(s): 96769065 (2) Post-operative nausea and vomiting Current Visit: Yes Status: Acute Code(s): R11.2 - NAUSEA WITH VOMITING, UNSPECIFIED; Z98.890 - OTHER SPECIFIED POSTPROCEDURAL STATES SNOMED Code(s): 7383347 (3) S/P lumbar fusion Current Visit: Yes Status: Acute Code(s): Z98.1 - ARTHRODESIS STATUS SNOMED Code(s): 27989226982175 (4) Spinal stenosis of lumbar region Current Visit: Yes Status: Acute Code(s): M48.061 - SPINAL STENOSIS, LUMBAR REGION WITHOUT NEUROGENIC CONNIE SNOMED Code(s): 17640749 (5) Gastric outflow obstruction Current Visit: Yes Status: Acute Code(s): K31.1 - ADULT HYPERTROPHIC PYLORIC STENOSIS SNOMED Code(s): 635931632 (6) GI bleeding Current Visit: Yes Status: Acute Code(s): K92.2 - GASTROINTESTINAL HEMORRHAGE, UNSPECIFIED SNOMED Code(s): 65916026 (7) History of coronary artery bypass graft Current Visit: Yes Status: Acute Code(s): Z95.1 - PRESENCE OF AORTOCORONARY BYPASS GRAFT SNOMED Code(s): 978914914 (8) History of hypertension Current Visit: Yes Status: Acute Code(s): Z86.79 - PERSONAL HISTORY OF OTHER DISEASES OF THE CIRCULATORY SYSTEM SNOMED Code(s): 597779797 Plan: patient is back in sinus rhythm. Patient is on IV amiodarone. Not on anticoagulation therapy at this point. We'll discuss with the surgical team and will resume anticoagulation therapy when appropriate
[2021-06-07] MEDS: SODIUM CHLORIDE 0.9% 1,000 ML IV SCH ×2 (11:51→13:16)
--- NOTE | 2021-06-07 11:58 | P.PN ---
Subjective Progress Note Date: 06/07/21 Principal diagnosis: Hypotension. Pulmonary consult dated 06/05/2021. 65-year-old female who had lumbar spine surgery, on June 02. The patient's surgery was done by Dr. Dunn. Apparently, the patient was up on the fourth floor, and early this morning, a rapid response was called on the patient, because of low blood pressure and low saturations. The patient was tra nsferred to 3 S. Or recently, we will called by the 3 S. nurse, Ness, who states that the patient was still receiving high concentrations of oxygen, and her blood pressure was only about 65-70 systolic. We decided to transfer the patient to the intensive care unit. The patient currently has a partial rebreather in place, and saline running at 120 mL an hour. She did receive 3 L of fluid on the floor. She was too unstable with that blood pressure to go for a CAT scan of the abdomen. The primary service is thinking that the patient may have a bowel obstruction. Currently, her blood pressure is only 70/25. An NG tube was placed, and 2 half liters of dark material came out from the NG tube. The patient has a history of atrial fibrillation, CAD, COPD, diabetes, GERD, and hyperlipidemia. The patient apparently also has a history of post polio syndrome, spontaneous pneumothorax, and previous bowel resection. She's also had a triple bypass surgery back in 2013. She does have a history of previous tobacco use. Currently labs include a white count of 24.3, hemoglobin 9.3, hematocrit 27.8, platelet count 2 41,000. Blood gases show pO2 of 152, pCO2 of 20, and a pH is 7.40. This blood gases consistent with a severe metabolic acidosis. Sodium 134, potassium 3.1, chlorides 100, CO2 23, anion gap 11, BUN 25, creatinine 0.95. Troponin was 0.064. A abdominal film showed a nonspecific nonobstructive bowel gas pattern. A chest x-ray was normal. A CT angiogram was negative for pulmonary embolism. Progress note dated 06/06/2021. 65-year-old female, seen yesterday in consultation. She had lumbar spine surgery on June 02. The patient was discovered to have a low blood pressure, and low saturations, was transferred initially from the fourth floor, to the third floor. Because of worsening respiratory status and low blood pressure, she came to the intensive care unit yesterday. A computed tomography scan of the abdomen revealed a small bowel obstruction. The patient is currently on 5 L nasal cannula, saline at 100 mL an hour, and norepinephrine at 0.09 mcg/kg/m. An NG tube is in place. White count 24.5, hemoglobin 7.5, hematocrit 23.1, platelet count 198,000. Sodium 136, potassium 4, chlorides 109, CO2 19, anion gap 8, BUN 41, with a creatinine of 1.31. AST is 1284 and ALT is 1525. Troponin was 0.082. Pro-calcitonin level was 2.87. Cortisol was 64. Computed tomography scan of the abdomen was consistent with a distal mechanical small bowel obstruction. Progress note dated 06/07/2021. 65-year-old female, seen again, in room 263. The patient was admitted to the ICU, with hypotension, and increasing oxygen requirements. The patient's currently on 5 L nasal cannula, and has an NG tube in place. She continues on amiodarone at 0.5 mg/m. She's getting saline at 120 mL an hour. Her hemoglobin this morning was 6.3, so she is receiving 1 unit of packed red blood cells. White count 10.3, hemoglobin 6.3, hematocrit 19.4, and platelet count 117,000. Sodium 141, potassium 3.5, chlorides 1:15, CO2 23, BUN 29, creatinine 0.72. AST 239, ALT 852. Albumin is 1.8. No chest x-ray today. Objective - Vital Signs Vital signs: Vital Signs Temp 98 F 06/07/21 10:40 Pulse 92 06/07/21 11:00 Resp 16 06/07/21 11:00 BP 108/48 06/07/21 11:00 Pulse Ox 100 06/07/21 11:00 Intake & Output 06/06/21 06/07/21 06/07/21 18:59 06:59 18:59 Intake Total 5348.653 7608 673.894 Output Total 1085 1775 705 Balance 782.644 -335 -31.106 Intake: IV 120 0.9 @ 50 120 Intake, IV Titration 9593.181 3015 673.894 Amount Amiodarone 450 mg In 248.894 Dextrose 5% in Water 250 ml @ 0.5 MG/MIN 16.667 mls/hr IV .Q15H [facility] Rx#: [id number] Dextrose 5% in Water 100 100 ml @ 618 mls/hr IV .Q10M [facility] with Amiodarone 150 mg Rx#:[id number] Norepinephrine 8 mg In 107.644 Sodium Chloride 0.9% 250 ml @ 0.05 MCG/KG/MIN 8. 495 mls/hr IV .Q24H [facility] Rx#:[id number] Piperacillin-Tazobactam 3 100 75 .375 gm In Sodium Chloride 0.9% 100 ml @ 25 mls/hr IVPB Q8HR [facility] Rx# :[id number] Potassium Chloride 20 meq 150 In Water For Injection 1 100ml.bag @ 50 mls/hr IVPB Q2H [facility] Rx#: [id number] Sodium Chloride 0.9% 1, 1440 1440 200 000 ml @ 120 mls/hr IV . Q8H20M [facility] Rx#:[id number] Blood Product 0 Rc As-1 Unit 0 [id number] Output: Gastric Drainage 600 650 250 Drainage 180 Right Lower Back 180 Urine 485 945 455 Other: Voiding Method Indwelling Catheter Indwelling Catheter Indwelling Catheter - Exam No acute distress, oriented 3. Currently on 5 L nasal cannula. Saturations are 98%. HEENT examination is grossly unremarkable. NG tube in place. Neck supple. Full range of motion. No adenopathy thyromegaly or neck vein distention. A left sided double-lumen central line is noted. Cardiovascular examination reveals regular rhythm rate. S1-S2 normal. No S3 or S4. No discernible murmur noted. Heart sounds are distant. Heart rate 92 bpm. Lungs reveal mostly clear breath sounds. Mild scattered rhonchi. No wheezes or crackles. Abdomen is mildly distended with mild tenderness. No bowel sounds. No masses. Extremities are intact. No cyanosis clubbing or edema. Skin is without rash or lesion. Neurologic examination is brief but nonfocal. - Labs CBC & Chem 7: 06/07/21 06:07 06/07/21 06:07 Labs: Abnormal Lab Results - Last 24 Hours (Table) 06/06/21 06/06/21 06/07/21 Range/Units 18:25 19:55 06:07 RBC 1.97 L (3.80-5.40) m/uL Hgb 6.3 L* (11.4-16.0) gm/dL Hct 19.4 L* (34.0-46.0) % Plt Count 117 L (150-450) k/uL Neutrophils # 9.2 H (1.3-7.7) k/uL Lymphocytes # 0.6 L (1.0-4.8) k/uL Chloride (98-107) mmol/L BUN (7-17) mg/dL Glucose (74-99) mg/dL POC Glucose (mg/dL) 173 H 153 H (75-99) mg/dL Calcium (8.4-10.2) mg/dL AST (14-36) U/L ALT (4-34) U/L Total Protein (6.3-8.2) g/dL Albumin (3.5-5.0) g/dL Crossmatch 06/07/21 06/07/21 06/07/21 Range/Units 06:07 06:53 08:00 RBC (3.80-5.40) m/uL Hgb (11.4-16.0) gm/dL Hct (34.0-46.0) % Plt Count (150-450) k/uL Neutrophils # (1.3-7.7) k/uL Lymphocytes # (1.0-4.8) k/uL Chloride 115 H (98-107) mmol/L BUN 29 H (7-17) mg/dL Glucose 115 H (74-99) mg/dL POC Glucose (mg/dL) 121 H (75-99) mg/dL Calcium 7.3 L (8.4-10.2) mg/dL AST 239 H (14-36) U/L ALT 852 H (4-34) U/L Total Protein 4.0 L (6.3-8.2) g/dL Albumin 1.8 L (3.5-5.0) g/dL Crossmatch See Detail Microbiology - Last 24 Hours (Table) 06/05/21 13:25 Blood Culture - Preliminary Blood No Growth after 24 hours Assessment and Plan Assessment: Small bowel obstruction. Hypotension, which may relate to underlying sepsis. Postop day #5, status post L2/S1 posterior lateral fusion, L2/S1 laminectomy, L2/L3 interbody fusion, L3/L4 interbody fusion, and L5/S1 interbody fusion, secondary to severe lumbar stenosis, radiculopathy, and spondylolisthesis. History of atrial fibrillation. History of CAD, status post bypass grafting, 2013. History of COPD, secondary to previous tobacco use. History of diabetes mellitus. History of gastroesophageal reflux disease. History of hyperlipidemia. History of postpolio syndrome. Prior history of bowel resection. History of spontaneous pneumothorax. Plan: Plan dated . The patient is seen in the intensive care unit, room 263. She is on a partial rebreather mask. Saturations are adequate. She's getting saline at 120 mL an hour. Blood pressure was only 70-75 systolic. I asked the nurses start nore pinephrine. An NG tube was placed. 2 liters of brown material was noted to exit the NG tube. The patient will be going down for computed tomography scan of the abdomen, once her blood pressure is more stable. Additional recommendations and suggestions are forthcoming. Prognosis is guarded. Plan dated 06/06/2021. The patient is again seen in room 263 in the intensive care unit. The patient is on 5 L nasal cannula. She's been weaned down from the partial rebreather mask that she had yesterday. The patient is still on norepinephrine at 0.9 mcg/kg/m. An NG tube is in place. Today she was angry about having the NG tube. We told her that surgery would have to be the one to discontinue the NG tube. Computed tomography scan of the abdomen did reveal a mechanical small bowel obstruction. We will continue to follow. Labs, x-rays, medications are reviewed. The patient remains on Zosyn. Plan dated 06/07/2021. The patient remains on amiodarone, 0.5 mg/m, for atrial fibrillation. Yesterday, the patient was still on norepinephrine. This been weaned off. The patient still has an NG tube in place. She is not happy about that. She'll be seen by surgery today. Clinically, she looks about the same. Oxygenation is reasonable. She is on 5 L nasal cannula. She continues on Zosyn empirically. Additional recommendations and suggestions are forthcoming. Labs, x-rays, and medications are all reviewed. We will continue to follow make recommendations where appropriate. Time with Patient: Greater than 30
--- NOTE | 2021-06-07 12:26 | P.PN ---
Subjective Progress Note Date: 06/07/21 Principal diagnosis: Small bowel obstruction versus ileus, aspiration pneumonitis, recent lumbar fusion. Patient is seen and examined at bedside. Somewhat lethargic in the setting of an acute drop in hemoglobin down to 6.3 overnight, presently receiving 1 unit PRBCs. Still frustrated with the nasogastric tube which is yielding greenish gastric output, no evidence of upper GI bleeding seen. She admits to flatus, no bowel movement. No reports of abdominal pain. Her transaminases are trending down. Leukocytosis has normalized. Orders were placed for oral anticoagulant i n the setting of atrial fibrillation with rapid ventricular response and is yet to be administered, she is presently on amiodarone drip. Her surgical drain from lumbar fusion has been yielding a minimal sanguinous output overnight, less than 50 mL per nursing. Chest x-ray showed worsening atelectasis, no consolidation. Objective - Vital Signs Vital signs: Vital Signs Temp 98.2 F 06/07/21 12:09 Pulse 93 06/07/21 12:09 Resp 17 06/07/21 12:09 BP 92/56 06/07/21 12:09 Pulse Ox 96 06/07/21 12:09 Intake & Output 06/06/21 06/07/21 06/07/21 18:59 06:59 18:59 Intake Total 2372.821 0021 1043.894 Output Total 1085 1775 705 Balance 782.644 -335 338.894 Intake: IV 120 0.9 @ 50 120 Intake, IV Titration 3310.455 2050 673.894 Amount Amiodarone 450 mg In 248.894 Dextrose 5% in Water 250 ml @ 0.5 MG/MIN 16.667 mls/hr IV .Q15H [facility] Rx#: [id number] Dextrose 5% in Water 100 100 ml @ 618 mls/hr IV .Q10M [facility] with Amiodarone 150 mg Rx#:[id number] Norepinephrine 8 mg In 107.644 Sodium Chloride 0.9% 250 ml @ 0.05 MCG/KG/MIN 8. 495 mls/hr IV .Q24H [facility] Rx#:[id number] Piperacillin-Tazobactam 3 100 75 .375 gm In Sodium Chloride 0.9% 100 ml @ 25 mls/hr IVPB Q8HR [facility] Rx# :[id number] Potassium Chloride 20 meq 150 In Water For Injection 1 100ml.bag @ 50 mls/hr IVPB Q2H [facility] Rx#: [id number] Sodium Chloride 0.9% 1, 1440 1440 200 000 ml @ 120 mls/hr IV . Q8H20M [facility] Rx#:[id number] Blood Product 310 Rc As-1 Unit 310 [id number] Other 60 Rc As-1 Unit 60 [id number] Output: Gastric Drainage 600 650 250 Drainage 180 Right Lower Back 180 Urine 485 945 455 Other: Voiding Method Indwelling Catheter Indwelling Catheter Indwelling Catheter - Constitutional General appearance: Present: average body habitus, cooperative, obese - EENT Eyes: Present: PERRLA ENT: Present: hearing grossly normal - Respiratory Details: Lung sounds slightly coarse bilaterally, decreased inspiratory effort. - Cardiovascular Rhythm: irregularly irregular - Gastrointestinal Gastrointestinal Comment(s): Abdomen is soft, nontender to palpation, no guarding rebound or distention. Iblly ogastric tube is in place with no signs of upper GI bleeding seen. General gastrointestinal: Present: decreased bowel sounds - Genitourinary Genitourinary Comment(s): Ye in place with clear urine. - Psychiatric Psychiatric Comment(s): Patient's lethargic although arousable and communicative in the setting of a low hemoglobin. Psychiatric: Present: A&O x's 3 - Labs CBC & Chem 7: 06/07/21 06:07 06/07/21 06:07 Labs: Abnormal Lab Results - Last 24 Hours (Table) 06/06/21 06/06/21 06/07/21 Range/Units 18:25 19:55 06:07 RBC 1.97 L (3.80-5.40) m/uL Hgb 6.3 L* (11.4-16.0) gm/dL Hct 19.4 L* (34.0-46.0) % Plt Count 117 L (150-450) k/uL Neutrophils # 9.2 H (1.3-7.7) k/uL Lymphocytes # 0.6 L (1.0-4.8) k/uL Chloride (98-107) mmol/L BUN (7-17) mg/dL Glucose (74-99) mg/dL POC Glucose (mg/dL) 173 H 153 H (75-99) mg/dL Calcium (8.4-10.2) mg/dL AST (14-36) U/L ALT (4-34) U/L Total Protein (6.3-8.2) g/dL Albumin (3.5-5.0) g/dL Crossmatch 06/07/21 06/07/21 06/07/21 Range/Units 06:07 06:53 08:00 RBC (3.80-5.40) m/uL Hgb (11.4-16.0) gm/dL Hct (34.0-46.0) % Plt Count (150-450) k/uL Neutrophils # (1.3-7.7) k/uL Lymphocytes # (1.0-4.8) k/uL Chloride 115 H (98-107) mmol/L BUN 29 H (7-17) mg/dL Glucose 115 H (74-99) mg/dL POC Glucose (mg/dL) 121 H (75-99) mg/dL Calcium 7.3 L (8.4-10.2) mg/dL AST 239 H (14-36) U/L ALT 852 H (4-34) U/L Total Protein 4.0 L (6.3-8.2) g/dL Albumin 1.8 L (3.5-5.0) g/dL Crossmatch See Detail Microbiology - Last 24 Hours (Table) 06/05/21 13:25 Blood Culture - Preliminary Blood No Growth after 24 hours Assessment and Plan Assessment: 1) 65-year-old lady with a small bowel obstruction versus ileus as visualized on CT. No discrete transition point seen. Admits to flatus today, no bowel movement yet. Would favor ileus over obstruction given her recent clinical history of lumbar fusion and absence of transition point on imaging. History of laparotomy for management of intra-abdominal or retroperitoneal abscess in the relatively distant past, suspected degree of intra-abdominal adhesions. 2) Recent aspiration pneumonitis and subsequent hemodynamic compromise and shock, improving. 3) Transaminitis, suspect related to hypoxic liver injury which is similarly improving on follow-up. 4) Acute decline in hemoglobin and of unclear source, no evidence of bleeding seen at nasogastric tube, her surgical site shows no evidence of significant bleeding. 5) Atrial fibrillation with rapid ventricular response on amiodarone drip. 6) Recent lumbar fusion for degenerative disease and sciatica. 7) Suspected degree of physical deconditioning and protein calorie malnutrition. Plan: Continue with nonoperative management of ileus versus obstruction with nasogastric decompression, bowel rest, IV fluids. If she doesn't have a bowel movement overnight will anticipate repeat CT abdomen and pelvis with oral contra st only tomorrow to assess for persistent mechanical obstruction. She is high risk for any additional surgical interventions. If it's felt strongly and the patient is to be anticoagulated for atrial fibrillation and rapid ventricular response I would suggest something with a short half-life that can be easily discontinued like heparin drip as opposed to oral agents for now given her acutely low hemoglobin of unclear etiology and her persistent ileus versus obstruction which will result in unreliable absorption of oral medications. Hemoccult 3 if and when the patient starts to have bowel movement. Time with Patient: Greater than 30
[2021-06-07 13:26] LABS: Glucose,Whole Blood 117 mg/dL (75-99)
[2021-06-07] MEDS ORDERED: HEPARIN SODIUM 1,000 UN/ML (10ML VL) IV ONE (14:32)
[2021-06-07] MEDS ORDERED: HEPARIN SODIUM 1,000 UN/ML (10ML VL) IV PRN (14:32)
[2021-06-07] MEDS: HEPARIN SOD,PORK IN 0.45% NACL 25,000 UNIT in 0.45% NACL 1 250ML.BAG IV SCH (14:59)
[2021-06-07 15:24] LABS: Partial Thromboplastin Time 30.2 sec (22.0-30.0); Prothrombin Time 11.2 sec (9.0-12.0)
[2021-06-07 15:39] LABS: Basophils % (A) 0 %; Eosinophils % (A) 0 %; HGB 7.6 gm/dL (11.4-16.0); Lymphocytes # (A) 0.6 k/uL (1.0-4.8); Lymphocytes % (A) 6 %; MCH 31.2 pg (25.0-35.0); MCV 94.5 fL (80.0-100.0); Mean Platelet Volume 8.5; Monocytes # (A) 0.2 k/uL (0-1.0); Monocytes % (A) 2 %; Neutrophils # (A) 9.6 k/uL (1.3-7.7); Neutrophils % (A) 91 %; Platelet Count 124 k/uL (150-450); RBC 2.43 m/uL (3.80-5.40); RDW 15.1 % (11.5-15.5); WBC 10.5 k/uL (3.8-10.6)
[2021-06-07 17:55] LABS: Glucose,Whole Blood 102 mg/dL (75-99)
[2021-06-07 20:43] LABS: Glucose,Whole Blood 101 mg/dL (75-99)
[2021-06-07] MEDS ORDERED: APIXABAN 5 MG TAB PO SCH (21:00)
--- NOTE | 2021-06-07 22:20 | P.PN ---
Subjective Progress Note Date: 06/06/21 Principal diagnosis: Sepsis and possible pneumonia Patient is a 65 year old female electively admitted to the hospital for lower back surgery in this patient subsequently developing nausea vomiting increasing shortness of breath concerning for ileus and possible aspiration pneumonitis. On today's evaluation that is 06/06/2021 the patient denies having any fever or chills, the patient is breathing slightly comfortably, the patient denies having any chest pain, the patient did have a cough nonproductive of sputum abdominal pain no further vomiting and no diarrhea Objective - Vital Signs Vital signs: Vital Signs Temp 98.7 F 06/06/21 08:00 Pulse 114 H 06/06/21 12:00 Resp 17 06/06/21 12:00 BP 120/50 06/06/21 12:00 Pulse Ox 95 06/06/21 12:00 Intake & Output 06/05/21 06/06/21 06/06/21 18:59 06:59 18:59 Intake Total 6314.287 3709.440 1028.049 Output Total 3070 670 755 Balance - 1663.440 273.049 Weight 100.9 kg Intake: IV 840 1440 120 0.9 @ 50 840 1440 120 Intake, IV Titration 208.318 893.440 908.049 Amount Norepinephrine 8 mg In 208.318 893.440 88.049 Sodium Chloride 0.9% 250 ml @ 0.05 MCG/KG/MIN 8. 495 mls/hr IV .Q24H [facility] Rx#:[id number] Piperacillin-Tazobactam 3 100 .375 gm In Sodium Chloride 0.9% 100 ml @ 25 mls/hr IVPB Q8HR [facility] Rx# :[id number] Sodium Chloride 0.9% 1, 720 000 ml @ 120 mls/hr IV . Q8H20M [facility] Rx#:[id number] Output: Gastric Drainage 2950 300 600 Urine 120 370 155 Other: Voiding Method Indwelling Catheter Indwelling Catheter Indwelling Catheter - Exam GENERAL DESCRIPTION: An elderly female lying in bed in no distress RESPIRATORY SYSTEM: Unlabored breathing , decreased breath sounds at bases HEART: S1 S2 regular rate and rhythm , ABDOMEN: Soft , no tenderness EXTREMITIES: No edema feet - Labs CBC & Chem 7: 06/07/21 14:55 06/07/21 14:55 Labs: Abnormal Lab Results - Last 24 Hours (Table) 06/05/21 06/05/21 06/05/21 Range/Units 13:25 13:25 18:32 WBC 27.4 H (3.8-10.6) k/uL RBC 2.80 L (3.80-5.40) m/uL Hgb 9.1 L (11.4-16.0) gm/dL Hct 28.1 L (34.0-46.0) % MCV 100.3 H (80.0-100.0) fL Neutrophils # (Manual) (1.3-7.7) k/uL Metamyelocytes # (Man) (0) k/uL Nucleated RBCs (0-0) /100 WBC Sodium (137-145) mmol/L Chloride (98-107) mmol/L Carbon Dioxide (22-30) mmol/L BUN (7-17) mg/dL Creatinine (0.52-1.04) mg/dL Glucose (74-99) mg/dL POC Glucose (mg/dL) 206 H (75-99) mg/dL Calcium (8.4-10.2) mg/dL AST (14-36) U/L ALT (4-34) U/L Troponin I 0.082 H* (0.000-0.034) ng/mL C-Reactive Protein (<1.0) mg/dL Total Protein (6.3-8.2) g/dL Albumin (3.5-5.0) g/dL Procalcitonin (0.02-0.09) ng/mL 06/05/21 06/05/21 06/06/21 Range/Units 21:18 21:29 05:34 WBC 24.5 H (3.8-10.6) k/uL RBC 2.33 L (3.80-5.40) m/uL Hgb 7.5 L D (11.4-16.0) gm/dL Hct 23.1 L (34.0-46.0) % MCV (80.0-100.0) fL Neutrophils # (Manual) 22.00 H (1.3-7.7) k/uL Metamyelocytes # (Man) 0.25 H (0) k/uL Nucleated RBCs 5 H (0-0) /100 WBC Sodium 135 L (137-145) mmol/L Chloride (98-107) mmol/L Carbon Dioxide 21 L (22-30) mmol/L BUN 38 H (7-17) mg/dL Creatinine 1.51 H (0.52-1.04) mg/dL Glucose 152 H (74-99) mg/dL POC Glucose (mg/dL) 170 H (75-99) mg/dL Calcium 7.3 L (8.4-10.2) mg/dL AST 2520 H (14-36) U/L ALT 1770 H (4-34) U/L Troponin I (0.000-0.034) ng/mL C-Reactive Protein (<1.0) mg/dL Total Protein 3.9 L (6.3-8.2) g/dL Albumin 1.9 L (3.5-5.0) g/dL Procalcitonin (0.02-0.09) ng/mL 06/06/21 06/06/21 06/06/21 Range/Units 05:34 05:34 06:36 WBC (3.8-10.6) k/uL RBC (3.80-5.40) m/uL Hgb (11.4-16.0) gm/dL Hct (34.0-46.0) % MCV (80.0-100.0) fL Neutrophils # (Manual) (1.3-7.7) k/uL Metamyelocytes # (Man) (0) k/uL Nucleated RBCs (0-0) /100 WBC Sodium 136 L (137-145) mmol/L Chloride 109 H (98-107) mmol/L Carbon Dioxide 19 L (22-30) mmol/L BUN 41 H (7-17) mg/dL Creatinine 1.31 H (0.52-1.04) mg/dL Glucose 149 H (74-99) mg/dL POC Glucose (mg/dL) 169 H (75-99) mg/dL Calcium 7.2 L (8.4-10.2) mg/dL AST 1284 H (14-36) U/L ALT 1525 H (4-34) U/L Troponin I (0.000-0.034) ng/mL C-Reactive Protein 30.1 H (<1.0) mg/dL Total Protein 4.0 L (6.3-8.2) g/dL Albumin 1.9 L (3.5-5.0) g/dL Procalcitonin 2.87 H (0.02-0.09) ng/mL Microbiology - Last 24 Hours (Table) 06/05/21 16:59 Urine Culture - Preliminary Urine,Catheterized Assessment and Plan (1) Sepsis Current Visit: Yes Status: Acute Code(s): A41.9 - SEPSIS, UNSPECIFIED ORGANISM SNOMED Code(s): 58959107 Plan: Patient with a low-grade fever of 100.5F, the patient did have elevated white count and tachycardia with concerning for ileus and possible aspiration pneumonia sputum has significant vomiting [facility] to narrow down antibiotics and continue supportive care Time with Patient: Less than 30
--- NOTE | 2021-06-07 22:23 | P.PN ---
Subjective Progress Note Date: 06/07/21 Principal diagnosis: Possible aspiration pneumonia Patient is a 65 year old female electively admitted to the hospital for lower back surgery in this patient subsequently developing nausea vomiting increasing shortness of breath concerning for ileus and possible aspiration pneumonitis. On today's evaluation that is 06/07/2021 the patient remains to be afebrile, the patient is breathing slightly comfortably on nasal cannula oxygen today, the patient denies having any chest pain, the patient did have a cough nonproductive of sputum abdominal pain no further vomiting and no diarrhea Objective - Vital Signs Vital signs: Vital Signs Temp 98.2 F 06/07/21 16:00 Pulse 87 06/07/21 16:00 Resp 18 06/07/21 16:00 BP 117/67 06/07/21 16:00 Pulse Ox 96 06/07/21 16:00 Intake & Output 06/06/21 06/07/21 06/07/21 18:59 06:59 18:59 Intake Total 9515.196 7445 2188.894 Output Total 1085 1775 1370 Balance 782.644 -335 818.894 Intake: IV 120 0.9 @ 50 120 Intake, IV Titration 6517.378 7011 1308.894 Amount Amiodarone 450 mg In 248.894 Dextrose 5% in Water 250 ml @ 0.5 MG/MIN 16.667 mls/hr IV .Q15H [facility] Rx#: [id number] Dextrose 5% in Water 100 100 ml @ 618 mls/hr IV .Q10M ONE with Amiodarone 150 mg Rx#:[id number] Norepinephrine 8 mg In 107.644 Sodium Chloride 0.9% 250 ml @ 0.05 MCG/KG/MIN 8. 495 mls/hr IV .Q24H [facility] Rx#:[id number] Piperacillin-Tazobactam 3 100 100 .375 gm In Sodium Chloride 0.9% 100 ml @ 25 mls/hr IVPB Q8HR [facility] Rx# :[id number] Potassium Chloride 20 meq 200 In Water For Injection 1 100ml.bag @ 50 mls/hr IVPB Q2H [facility] Rx#: [id number] Sodium Chloride 0.9% 1, 1440 1440 760 000 ml @ 120 mls/hr IV . Q8H20M [facility] Rx#:[id number] Oral 200 Blood Product 620 Rc As-1 Unit 310 [id number] Other 60 Rc As-1 Unit 60 [id number] Output: Gastric Drainage 600 650 550 Drainage 180 30 Right Lower Back 180 30 Urine 485 945 790 Other: Voiding Method Indwelling Catheter Indwelling Catheter Indwelling Catheter - Exam GENERAL DESCRIPTION: An elderly female lying in bed in no distress RESPIRATORY SYSTEM: Unlabored breathing , decreased breath sounds at bases HEART: S1 S2 regular rate and rhythm , ABDOMEN: Soft , no tenderness EXTREMITIES: No edema feet - Labs CBC & Chem 7: 06/07/21 14:55 06/07/21 14:55 Labs: Abnormal Lab Results - Last 24 Hours (Table) 06/06/21 06/06/21 06/07/21 Range/Units 18:25 19:55 06:07 RBC 1.97 L (3.80-5.40) m/uL Hgb 6.3 L* (11.4-16.0) gm/dL Hct 19.4 L* (34.0-46.0) % Plt Count 117 L (150-450) k/uL Neutrophils # 9.2 H (1.3-7.7) k/uL Lymphocytes # 0.6 L (1.0-4.8) k/uL APTT (22.0-30.0) sec Chloride (98-107) mmol/L BUN (7-17) mg/dL Glucose (74-99) mg/dL POC Glucose (mg/dL) 173 H 153 H (75-99) mg/dL Calcium (8.4-10.2) mg/dL AST (14-36) U/L ALT (4-34) U/L Total Protein (6.3-8.2) g/dL Albumin (3.5-5.0) g/dL Crossmatch 06/07/21 06/07/21 06/07/21 Range/Units 06:07 06:53 08:00 RBC (3.80-5.40) m/uL Hgb (11.4-16.0) gm/dL Hct (34.0-46.0) % Plt Count (150-450) k/uL Neutrophils # (1.3-7.7) k/uL Lymphocytes # (1.0-4.8) k/uL APTT (22.0-30.0) sec Chloride 115 H (98-107) mmol/L BUN 29 H (7-17) mg/dL Glucose 115 H (74-99) mg/dL POC Glucose (mg/dL) 121 H (75-99) mg/dL Calcium 7.3 L (8.4-10.2) mg/dL AST 239 H (14-36) U/L ALT 852 H (4-34) U/L Total Protein 4.0 L (6.3-8.2) g/dL Albumin 1.8 L (3.5-5.0) g/dL Crossmatch See Detail 06/07/21 06/07/21 06/07/21 Range/Units 13:24 14:55 14:55 RBC 2.43 L (3.80-5.40) m/uL Hgb 7.6 L (11.4-16.0) gm/dL Hct 23.0 L (34.0-46.0) % Plt Count 124 L (150-450) k/uL Neutrophils # 9.6 H (1.3-7.7) k/uL Lymphocytes # 0.6 L (1.0-4.8) k/uL APTT 30.2 H (22.0-30.0) sec Chloride (98-107) mmol/L BUN (7-17) mg/dL Glucose (74-99) mg/dL POC Glucose (mg/dL) 117 H (75-99) mg/dL Calcium (8.4-10.2) mg/dL AST (14-36) U/L ALT (4-34) U/L Total Protein (6.3-8.2) g/dL Albumin (3.5-5.0) g/dL Crossmatch Microbiology - Last 24 Hours (Table) 06/05/21 13:25 Blood Culture - Preliminary Blood No Growth after 48 hours 06/05/21 16:59 Urine Culture - Final Urine,Catheterized Assessment and Plan (1) Aspiration pneumonia Current Visit: Yes Status: Acute Code(s): J69.0 - PNEUMONITIS DUE TO INHALATION OF FOOD AND VOMIT SNOMED Code(s): 184885441 Plan: Patient with a low-grade fever of 100.5F, the patient did have elevated white count and tachycardia with concerning for ileus and possible aspiration pneumon ia, sputum culture were requested not collected, patient clinically responding to the Zosyn , we will try to obtain sputum to narrow down antibiotics and continue supportive care
[2021-06-08] MEDS: HYDROmorphone 1 MG/ML 1 ML SYRINGE IVP PRN ×6 (00:59→22:47)
[2021-06-08] MEDS: AMIODARONE 450 MG in DEXTROSE 5% IN WATER 250 ML IV SCH ×4 (02:50→18:44)
[2021-06-08] MEDS: POTASSIUM CHLORIDE 10 MEQ in WATER FOR INJECTION 1 100ML.BAG IVPB SCH ×2 (03:03→04:20)
[2021-06-08] MEDS: SODIUM CHLORIDE 0.9% 1,000 ML IV SCH ×4 (04:19→21:32)
[2021-06-08 06:38] LABS: Basophils % (A) 0 %; Eosinophils # (A) 0.1 k/uL (0-0.7); Eosinophils % (A) 1 %; HCT 25.6 % (34.0-46.0); Hypochromasia Slight; Lymphocytes # (A) 0.5 k/uL (1.0-4.8); Lymphocytes % (A) 5 %; MCH 30.6 pg (25.0-35.0); MCHC 31.3 g/dL (31.0-37.0); MCV 97.5 fL (80.0-100.0); Mean Platelet Volume 7.9; Monocytes # (A) 0.2 k/uL (0-1.0); Monocytes % (A) 2 %; Neutrophils # (A) 9.2 k/uL (1.3-7.7); Neutrophils % (A) 91 %; Platelet Count 121 k/uL (150-450); RBC 2.63 m/uL (3.80-5.40); RDW 15.3 % (11.5-15.5); WBC 10.1 k/uL (3.8-10.6)
[2021-06-08 06:42] LABS: ALT 536 U/L (4-34); AST 89 U/L (14-36); African American GFR (CKD) >90 (>60 ml/min/1.73 sqM); Albumin 1.9 g/dL (3.5-5.0); Alkaline Phosphatase 73 U/L (38-126); Anion Gap 3 mmol/L; Blood Urea Nitrogen 14 mg/dL (7-17); Calcium 7.4 mg/dL (8.4-10.2); Carbon Dioxide 21 mmol/L (22-30); Chloride 114 mmol/L (98-107); Glucose 99 mg/dL (74-99); Non-African American GFR(CKD) >90 (>60 ml/min/1.73 sqM); Potassium 4.2 mmol/L (3.5-5.1); Sodium 138 mmol/L (137-145); Total Bilirubin 0.9 mg/dL (0.2-1.3); Total Protein 4.3 g/dL (6.3-8.2)
[2021-06-08 07:10] LABS: Glucose,Whole Blood 101 mg/dL (75-99)
[2021-06-08] MEDS: INSULIN ASPART (NovoLOG) 100 UNIT/ML VIAL SQ SCH ×4 (07:53→20:55)
[2021-06-08] MEDS: PIPERACILLIN-TAZOBACTAM 3.375 GM in SODIUM CHLORIDE 0.9% 100 ML IVPB SCH ×3 (08:43→23:47)
[2021-06-08] MEDS: PANTOPRAZOLE 40 MG/10 ML VIAL IVP SCH (08:43)
[2021-06-08] MEDS: NYSTATIN 100,000 UNIT/GM OINT 30 GM TUBE TOPICAL SCH ×2 (08:48→20:45)
--- NOTE | 2021-06-08 09:01 | XR ---
EXAMINATION TYPE: XR chest 1V portable DATE OF EXAM: 06/08/2021 COMPARISON: 06/06/2021 INDICATION: Short of breath TECHNIQUE: Single frontal view of the chest is obtained. FINDINGS: The heart size is enlarged. Mild vascular prominence is present.. Bibasilar infiltrates are present. These are developing from comparison, correlate for atypical pulmo nary edema. Nasogastric tube transverses the thorax. Stimulator leads are present. Surgical skin susy are pre sent anteriorly. Left central venous catheter is present with the tip in the proximal right atrium IMPRESSION: 1. Mild cardiomegaly. 2. Prominent pulmonary vascular markings with some developing bibasilar infiltrates. Correlate for at ypical pulmonary edema.
--- NOTE | 2021-06-08 09:46 | P.PN ---
Subjective Progress Note Date: 06/08/21 Principal diagnosis: L2 to S1 spondylosis with stenosis L4-L5 grade 1 spondylolisthesis Patient seen and examined she is doing much better today she is irritated because she wants water and 7-Up obviously she cannot have these right now and we are waiting on general surgery and her bowels to recover. She is otherwise feeling well no pain she was up yesterday in the chair plans and getting up several times today. She denies any fevers chills shortness of breath or chest pain she denies any other symptoms at this time. Objective - Vital Signs Vital signs: Vital Signs Temp 97.6 F 06/08/21 08:00 Pulse 84 06/08/21 08:00 Resp 29 H 06/08/21 08:00 BP 112/43 06/08/21 08:00 Pulse Ox 97 06/08/21 08:00 Intake & Output 06/07/21 06/08/21 06/08/21 18:59 06:59 18:59 Intake Total 2438.894 1871.867 120 Output Total 1690 1875 75 Balance 748.894 -3.133 45 Weight 102.2 kg Intake: Intake, IV Titration 8301.539 1108.867 120 Amount Amiodarone 450 mg In 248.894 250 Dextrose 5% in Water 250 ml @ 0.5 MG/MIN 16.667 mls/hr IV .Q15H [facility] Rx#: [id number] Heparin Sod,Pork in 0.45% 51.867 NaCl 25,000 unit In 0.45 % NaCl 1 250ml.bag @ 800 UNIT/HR 8 mls/hr IV .Q24H [facility] Rx#:[id number] Piperacillin-Tazobactam 3 150 50 .375 gm In Sodium Chloride 0.9% 100 ml @ 25 mls/hr IVPB Q8HR [facility] Rx# :[id number] Potassium Chloride 20 meq 200 In Water For Injection 1 100ml.bag @ 50 mls/hr IVPB Q2H [facility] Rx#: [id number] Potassium Chloride 20 meq 100 100 In Water For Injection 1 100ml.bag @ 50 mls/hr IVPB Q2H [facility] Rx#: [id number] Sodium Chloride 0.9% 1, 760 1320 120 000 ml @ 120 mls/hr IV . Q8H20M [facility] Rx#:[id number] Oral 300 100 Blood Product 620 Rc As-1 Unit 310 [id number] Other 60 Rc As-1 Unit 60 [id number] Output: Gastric Drainage 750 850 Drainage 30 Right Lower Back 30 Urine 910 1025 75 Other: Voiding Method Indwelling Catheter Indwelling Catheter - Exam Exam repeated no significant changes. We will DC the drain today. Patient is alert and oriented 3 appears well-nourished well-hydrated They do not appear septic. Lower extremities with 4/5 strength in all major muscle groups. Right lower extremity is still fairly weak in hip flexion however is getting better. Upper extremities show 4+/5 strength in all major muscle groups. [2]/4DTR all UE and LE b/l Patient shows a negative Homans, Ward's, negative Babinski's negative clonus bilaterally. negative straight leg raise bilaterally. No tensioning signs. Cranial nerves II through XII are grossly intact. There is FROM that is painless of the b/l UE and LE in all major joints [w/o pain]. They are intact to light touch sensation in L2 to S1 nerve distribution. Patient has palpable dorsalis pedis was posterior tibial pulses. Compartments are soft and compressible. Drain has 10 mL it was recently emptied - Labs CBC & Chem 7: 06/08/21 05:43 06/08/21 05:43 Labs: Abnormal Lab Results - Last 24 Hours (Table) 06/07/21 06/07/21 06/07/21 Range/Units 08:00 13:24 14:55 RBC 2.43 L (3.80-5.40) m/uL Hgb 7.6 L (11.4-16.0) gm/dL Hct 23.0 L (34.0-46.0) % Plt Count 124 L (150-450) k/uL Neutrophils # 9.6 H (1.3-7.7) k/uL Lymphocytes # 0.6 L (1.0-4.8) k/uL APTT (22.0-30.0) sec Chloride (98-107) mmol/L Carbon Dioxide (22-30) mmol/L POC Glucose (mg/dL) 117 H (75-99) mg/dL Calcium (8.4-10.2) mg/dL AST (14-36) U/L ALT (4-34) U/L Total Protein (6.3-8.2) g/dL Albumin (3.5-5.0) g/dL Crossmatch See Detail 06/07/21 06/07/21 06/07/21 Range/Units 14:55 17:52 20:08 RBC (3.80-5.40) m/uL Hgb (11.4-16.0) gm/dL Hct (34.0-46.0) % Plt Count (150-450) k/uL Neutrophils # (1.3-7.7) k/uL Lymphocytes # (1.0-4.8) k/uL APTT 30.2 H 42.5 H (22.0-30.0) sec Chloride (98-107) mmol/L Carbon Dioxide (22-30) mmol/L POC Glucose (mg/dL) 102 H (75-99) mg/dL Calcium (8.4-10.2) mg/dL AST (14-36) U/L ALT (4-34) U/L Total Protein (6.3-8.2) g/dL Albumin (3.5-5.0) g/dL Crossmatch 06/07/21 06/08/21 06/08/21 Range/Units 20:41 05:43 05:43 RBC 2.63 L (3.80-5.40) m/uL Hgb 8.0 L (11.4-16.0) gm/dL Hct 25.6 L (34.0-46.0) % Plt Count 121 L (150-450) k/uL Neutrophils # 9.2 H (1.3-7.7) k/uL Lymphocytes # 0.5 L (1.0-4.8) k/uL APTT (22.0-30.0) sec Chloride 114 H (98-107) mmol/L Carbon Dioxide 21 L (22-30) mmol/L POC Glucose (mg/dL) 101 H (75-99) mg/dL Calcium 7.4 L (8.4-10.2) mg/dL AST 89 H (14-36) U/L ALT 536 H (4-34) U/L Total Protein 4.3 L (6.3-8.2) g/dL Albumin 1.9 L (3.5-5.0) g/dL Crossmatch 06/08/21 06/08/21 Range/Units 05:43 07:08 RBC (3.80-5.40) m/uL Hgb (11.4-16.0) gm/dL Hct (34.0-46.0) % Plt Count (150-450) k/uL Neutrophils # (1.3-7.7) k/uL Lymphocytes # (1.0-4.8) k/uL APTT 44.5 H (22.0-30.0) sec Chloride (98-107) mmol/L Carbon Dioxide (22-30) mmol/L POC Glucose (mg/dL) 101 H (75-99) mg/dL Calcium (8.4-10.2) mg/dL AST (14-36) U/L ALT (4-34) U/L Total Protein (6.3-8.2) g/dL Albumin (3.5-5.0) g/dL Crossmatch Microbiology - Last 24 Hours (Table) 06/05/21 13:25 Blood Culture - Preliminary Blood No Growth after 48 hours 06/05/21 16:59 Urine Culture - Final Urine,Catheterized Assessment and Plan Assessment: 65-year-old female postop day 6 L2 to S1 decompression fusion 1. L2-S1 severe stenosis 2.L2-S1 spondylosis 3. right lower extremity weakness 4. right lower extremity radiculopathy 5. L2-3 large HNP with sequestration 6. Mechanical low back pain 7. Acute bowel obstruction Plan: -Appreciate financial services education consultant and team management. UP AND ABOUT TODAY -Activity: Ambulate QID, OOB all meals, up and about, limit lifting bending twisting to less than 5 lbs. Use walker or cane if needed for stability. -Daily PT/OT, increase ambulation strength and balance. -No braces needed -Pain control: Adequate at this time -Meds: reviewed, cont with zofran and compazine for nausea. Pt on dexamethasone as well PO, not ideal for fusion and healing purposes but OK for need of antinausea. -GI ppx: senna, Miralax -DC stacy when up and about, bedside commode if needed -DVT PPX: Heparin SQ; TEDs; SCDs; Early ambulation -Hygiene: Shower OK. Maintain dressing clean and dry. Meticulous cleaning after BMs away from incision site -Drains: DC'd today -Encourage IS 10x/hr -Pulmonary general surgery and medical management -Dispo: Pending
--- NOTE | 2021-06-08 10:25 | PN ---
PROGRESS NOTE Mrs. Robison underwent back surgery followed by bowel obstruction, went into atrial fibrillation. She has is going for a CT scan today to assess the status of her bowel obstruction, which seems to be improving. She is in a sinus rhythm on a small dose of amiodarone at 0.5 mg IV; cannot take p.o. medications at this time. Vitals are stable. S1-S2 heard normally. No significant murmurs. Lungs reveal diminished air entry. Abdomen exam revealed that the bowel sounds are actually positive, although she still has an NG tube. Lower extremities reveal diminished pulses. Plan is to continue amiodarone IV for now until we can give her oral medications. At that time we will switch her from IV to p.o. medications. Plan is to continue current medical regimen. KUSHAL / RANI: [id number] /
--- NOTE | 2021-06-08 11:46 | P.PN ---
Subjective Progress Note Date: 06/08/21 Principal diagnosis: Small bowel obstruction versus ileus, aspiration pneumonitis, recent lumbar fusion Patient is seen and examined at bedside. She tells me she is feeling slightly better today than yesterday, a bit more alert but energy level is still low. She had a more than appropriate response to 1 unit PRBCs yesterday with a hemoglobin of 8 this morning. She's been started on heparin drip for A. fib RVR. She admits to flatus, no bowel movement yet. Remains in patient with respect to getting her nasogastric tube out and starting a diet. Continues with ice chips [id number], nasogastric output looks clear to greenish. No signs of upper GI bleed. No reports of abdominal pain or nausea. Transaminases continue to trend down. Objective - Vital Signs Vital signs: Vital Signs Temp 97.6 F 06/08/21 08:00 Pulse 89 06/08/21 10:00 Resp 17 06/08/21 10:00 BP 92/47 06/08/21 10:00 Pulse Ox 98 06/08/21 10:00 Intake & Output 06/07/21 06/08/21 06/08/21 18:59 06:59 18:59 Intake Total 2438.894 1871.867 390 Output Total 1690 1875 400 Balance 748.894 -3.133 -10 Weight 102.2 kg Intake: IV 270 Piperacillin-Tazobactam 3 100 .375 gm In Sodium Chloride 0.9% 100 ml @ 25 mls/hr IVPB Q8HR [facility] Rx# :[id number] Sodium Chloride 0.9% 1, 170 000 ml @ 120 mls/hr IV . Q8H20M [facility] Rx#:[id number] Intake, IV Titration 3011.334 7796.867 120 Amount Amiodarone 450 mg In 248.894 250 Dextrose 5% in Water 250 ml @ 0.5 MG/MIN 16.667 mls/hr IV .Q15H [facility] Rx#: [id number] Heparin Sod,Pork in 0.45% 51.867 NaCl 25,000 unit In 0.45 % NaCl 1 250ml.bag @ 800 UNIT/HR 8 mls/hr IV .Q24H [facility] Rx#:[id number] Piperacillin-Tazobactam 3 150 50 .375 gm In Sodium Chloride 0.9% 100 ml @ 25 mls/hr IVPB Q8HR [facility] Rx# :[id number] Potassium Chloride 20 meq 200 In Water For Injection 1 100ml.bag @ 50 mls/hr IVPB Q2H [facility] Rx#: [id number] Potassium Chloride 20 meq 100 100 In Water For Injection 1 100ml.bag @ 50 mls/hr IVPB Q2H [facility] Rx#: [id number] Sodium Chloride 0.9% 1, 760 1320 120 000 ml @ 120 mls/hr IV . Q8H20M [facility] Rx#:[id number] Oral 300 100 Blood Product 620 Rc As-1 Unit 310 [id number] Other 60 Rc As-1 Unit 60 [id number] Output: Gastric Drainage 750 850 Drainage 30 Right Lower Back 30 Urine 910 1025 400 Other: Voiding Method Indwelling Catheter Indwelling Catheter - Constitutional General appearance: Present: cooperative, no acute distress, obese - EENT Eyes: Present: PERRLA ENT: Present: hearing grossly normal - Respiratory Respiratory: bilateral: CTA - Cardiovascular Rhythm: regular - Gastrointestinal Gastrointestinal Comment(s): Abdomen is soft, nontender to palpation, no guarding rebound or distention. Nasogastric tube is in place General gastrointestinal: Present: decreased bowel sounds - Genitourinary Genitourinary Comment(s): Ye in place with clear urine - Neurologic Neurologic: Present: CNII-XII intact - Psychiatric Psychiatric: Present: A&O x's 3, appropriate affect - Labs CBC & Chem 7: 06/08/21 05:43 06/08/21 05:43 Labs: Abnormal Lab Results - Last 24 Hours (Table) 06/07/21 06/07/21 06/07/21 Range/Units 08:00 13:24 14:55 RBC 2.43 L (3.80-5.40) m/uL Hgb 7.6 L (11.4-16.0) gm/dL Hct 23.0 L (34.0-46.0) % Plt Count 124 L (150-450) k/uL Neutrophils # 9.6 H (1.3-7.7) k/uL Lymphocytes # 0.6 L (1.0-4.8) k/uL APTT (22.0-30.0) sec Chloride (98-107) mmol/L Carbon Dioxide (22-30) mmol/L POC Glucose (mg/dL) 117 H (75-99) mg/dL Calcium (8.4-10.2) mg/dL AST (14-36) U/L ALT (4-34) U/L Total Protein (6.3-8.2) g/dL Albumin (3.5-5.0) g/dL Crossmatch See Detail 06/07/21 06/07/21 06/07/21 Range/Units 14:55 17:52 20:08 RBC (3.80-5.40) m/uL Hgb (11.4-16.0) gm/dL Hct (34.0-46.0) % Plt Count (150-450) k/uL Neutrophils # (1.3-7.7) k/uL Lymphocytes # (1.0-4.8) k/uL APTT 30.2 H 42.5 H (22.0-30.0) sec Chloride (98-107) mmol/L Carbon Dioxide (22-30) mmol/L POC Glucose (mg/dL) 102 H (75-99) mg/dL Calcium (8.4-10.2) mg/dL AST (14-36) U/L ALT (4-34) U/L Total Protein (6.3-8.2) g/dL Albumin (3.5-5.0) g/dL Crossmatch 06/07/21 06/08/21 06/08/21 Range/Units 20:41 05:43 05:43 RBC 2.63 L (3.80-5.40) m/uL Hgb 8.0 L (11.4-16.0) gm/dL Hct 25.6 L (34.0-46.0) % Plt Count 121 L (150-450) k/uL Neutrophils # 9.2 H (1.3-7.7) k/uL Lymphocytes # 0.5 L (1.0-4.8) k/uL APTT (22.0-30.0) sec Chloride 114 H (98-107) mmol/L Carbon Dioxide 21 L (22-30) mmol/L POC Glucose (mg/dL) 101 H (75-99) mg/dL Calcium 7.4 L (8.4-10.2) mg/dL AST 89 H (14-36) U/L ALT 536 H (4-34) U/L Total Protein 4.3 L (6.3-8.2) g/dL Albumin 1.9 L (3.5-5.0) g/dL Crossmatch 06/08/21 06/08/21 Range/Units 05:43 07:08 RBC (3.80-5.40) m/uL Hgb (11.4-16.0) gm/dL Hct (34.0-46.0) % Plt Count (150-450) k/uL Neutrophils # (1.3-7.7) k/uL Lymphocytes # (1.0-4.8) k/uL APTT 44.5 H (22.0-30.0) sec Chloride (98-107) mmol/L Carbon Dioxide (22-30) mmol/L POC Glucose (mg/dL) 101 H (75-99) mg/dL Calcium (8.4-10.2) mg/dL AST (14-36) U/L ALT (4-34) U/L Total Protein (6.3-8.2) g/dL Albumin (3.5-5.0) g/dL Crossmatch Microbiology - Last 24 Hours (Table) 06/05/21 13:25 Blood Culture - Preliminary Blood No Growth after 48 hours 06/05/21 16:59 Urine Culture - Final Urine,Catheterized Assessment and Plan Assessment: 1) 65-year-old lady with a small bowel obstruction versus ileus as visualized on CT. No discrete transition point seen. Admits to flatus today, no bowel movement yet. Would favor ileus over obstruction given her recent clinical history of lumbar fusion and absence of transition point on imaging. History of laparotomy for management of intra-abdominal or retroperitoneal abscess in the relatively distant past, suspected degree of intra-abdominal adhesions. 2) Recent aspiration pneumonitis and subsequent hemodynamic compromise and shock, improving. 3) Transaminitis, suspect related to hypoxic liver injury which is similarly improving on follow-up. 4) Acute decline in hemoglobin and of unclear source, no evidence of bleeding seen at nasogastric tube, her surgical site shows no evidence of significant bleeding. Appropriate response to 1 unit PRBCs. 5) Atrial fibrillation with rapid ventricular response on amiodarone drip. 6) Recent lumbar fusion for degenerative disease and sciatica. 7) Suspected degree of physical deconditioning and protein calorie malnutrition. Plan: Continue with nonoperative management of ileus versus obstruction with nasogastric decompression, bowel rest, IV fluids. Repeat computed tomography scan of abdomen and pelvis today with oral and IV contrast to assess for presence or absence of mechanical obstruction and further investigate the etiology of her recent precipitous decline in hemoglobin. His possible she could be a concealing a spontaneous retroperitoneal bleed given absence of signs of GI bleeding. If computed tomography scan for follow-up flat plate abdominal x-ray show passage of oral contrast to the cecum it'll be time due to either clamp remove her nasogastric tube and get her started on clear liquids with appropriate supplementation. If imaging does show persistent obstruction at this point we'll have to entertain exploration. She is high risk for any additional surgical interventions. Hemoccult 3 if and when the patient starts to have bowel movement. Time with Patient: Greater than 30
[2021-06-08] MEDS: IOPAMIDOL CONTRAST (ORAL USE) VIAL PO PRN ×2 (11:58→13:17)
[2021-06-08 12:00] LABS: Glucose,Whole Blood 98 mg/dL (75-99)
--- NOTE | 2021-06-08 12:57 | P.PN ---
Subjective Progress Note Date: 06/08/21 Principal diagnosis: Ferrous post lumbar spine surgery on June 02, postoperative atelectasis and small bowel obstruction. Pulmonary consult dated 06/05/2021. 65-year-old female who had lumbar spine surgery, on June 02. The patient's surgery was done by Dr. Dunn. Apparently, the patient was up on the fourth floor, and early this morning, a rapid response was called on the patient, because of low blood pressure and low saturations. The patient was transferred to 3 S. Or recently, we will called by the 3 S. nurse, Ness, who states that the patient was still receiving high concentrations of oxygen, and her blood pressure was only about 65-70 systolic. We decided to transfer the patient to the intensive care unit. The patient currently has a partial rebr eather in place, and saline running at 120 mL an hour. She did receive 3 L of fluid on the floor. She was too unstable with that blood pressure to go for a CAT scan of the abdomen. The primary service is thinking that the patient may have a bowel obstruction. Currently, her blood pressure is only 70/25. An NG tube was placed, and 2 half liters of dark material came out from the NG tube. The patient has a history of atrial fibrillation, CAD, COPD, diabetes, GERD, and hyperlipidemia. The patient apparently also has a history of post polio syndrome, spontaneous pneumothorax, and previous bowel resection. She's also had a triple bypass surgery back in 2013. She does have a history of previous tobacco use. Currently labs include a white count of 24.3, hemoglobin 9.3, hematocrit 27.8, platelet count 2 41,000. Blood gases show pO2 of 152, pCO2 of 20, and a pH is 7.40. This blood gases consistent with a severe metabolic acidosis. Sodium 134, potassium 3.1, chlorides 100, CO2 23, anion gap 11, BUN 25, creatinine 0.95. Troponin was 0.064. A abdominal film showed a nonspecific nonobstructive bowel gas pattern. A chest x-ray was normal. A CT angiogram was negative for pulmonary embolism. Progress note dated 06/06/2021. 65-year-old female, seen yesterday in consultation. She had lumbar spine surgery on June 02. The patient was discovered to have a low blood pressure , and low saturations, was transferred initially from the fourth floor, to the third floor. Because of worsening respiratory status and low blood pressure, she came to the intensive care unit yesterday. A computed tomography scan of the abdomen revealed a small bowel obstruction. The patient is currently on 5 L nasal cannula, saline at 100 mL an hour, and norepinephrine at 0.09 mcg/kg/m. An NG tube is in place. White count 24.5, hemoglobin 7.5, hematocrit 23.1, platelet count 198,000. Sodium 136, potassium 4, chlorides 109, CO2 19, anion gap 8, BUN 41, with a creatinine of 1.31. AST is 1284 and ALT is 1525. Troponin was 0.082. Pro-calcitonin level was 2.87. Cortisol was 64. Computed tomography scan of the abdomen was consistent with a distal mechanical small bowel obstruction. Progress note dated 06/07/2021. 65-year-old female, seen again, in room 263. The patient was admitted to the ICU, with hypotension, and increasing oxygen requirements. The patient's currently on 5 L nasal cannula, and has an NG tube in place. She continues on amiodarone at 0.5 mg/m. She's getting saline at 120 mL an hour. Her hemoglobin this morning was 6.3, so she is receiving 1 unit of packed red blood cells. White count 10.3, hemoglobin 6.3, hematocrit 19.4, and platelet count 117,000. Sodium 141, potassium 3.5, chlorides 1:15, CO2 23, BUN 29, creatinine 0.72. AST 239, ALT 852. Albumin is 1.8. No chest x-ray today. Reevaluated today on 06/08/2021, patient remains in the ICU, she is actually on 2 L nasal cannula, does not seem to be in any distress. Continues to have nasogastric tube in place, patient apparently had small bowel obstruction, and being followed by other consultants. Pulmonary-quintana she is not in any distress, chest x-ray showed bibasilar atelectasis, possible infiltrates, and she is on Zosyn empirically. Her electrolytes are normal renal profile is normal WBC count is 10.1 hemoglobin is 8. Patient will be transferred out of the ICU to a regular medical floor today. CBC is relatively unremarkable and electrolytes are unremarkable. Objective - Vital Signs Vital signs: Vital Signs Temp 97.6 F 02/21/22 08:00 Pulse 89 06/08/21 10:00 Resp 17 06/08/21 10:00 BP 92/47 06/08/21 10:00 Pulse Ox 98 06/08/21 10:00 Intake & Output 06/07/21 06/08/21 06/08/21 18:59 06:59 18:59 Intake Total 2438.894 1871.867 390 Output Total 1690 1875 400 Balance 748.894 -3.133 -10 Weight 102.2 kg Intake: IV 270 Piperacillin-Tazobactam 3 100 .375 gm In Sodium Chloride 0.9% 100 ml @ 25 mls/hr IVPB Q8HR [facility] Rx# :[id number] Sodium Chloride 0.9% 1, 170 000 ml @ 120 mls/hr IV . Q8H20M [facility] Rx#:[id number] Intake, IV Titration 1535.325 0007.867 120 Amount Amiodarone 450 mg In 248.894 250 Dextrose 5% in Water 250 ml @ 0.5 MG/MIN 16.667 mls/hr IV .Q15H [facility] Rx#: [id number] Heparin Sod,Pork in 0.45% 51.867 NaCl 25,000 unit In 0.45 % NaCl 1 250ml.bag @ 800 UNIT/HR 8 mls/hr IV .Q24H [facility] Rx#:[id number] Piperacillin-Tazobactam 3 150 50 .375 gm In Sodium Chloride 0.9% 100 ml @ 25 mls/hr IVPB Q8HR [facility] Rx# :[id number] Potassium Chloride 20 meq 200 In Water For Injection 1 100ml.bag @ 50 mls/hr IVPB Q2H [facility] Rx#: [id number] Potassium Chloride 20 meq 100 100 In Water For Injection 1 100ml.bag @ 50 mls/hr IVPB Q2H [facility] Rx#: [id number] Sodium Chloride 0.9% 1, 760 1320 120 000 ml @ 120 mls/hr IV . Q8H20M [facility] Rx#:[id number] Oral 300 100 Blood Product 620 Rc As-1 Unit 310 [id number] Other 60 Rc As-1 Unit 60 [id number] Output: Gastric Drainage 750 850 Drainage 30 Right Lower Back 30 Urine 910 1025 400 Other: Voiding Method Indwelling Catheter Indwelling Catheter - Exam Physical Exam revealed 65-year-old female in no distress. On 2 L nasal cannula. Head: Atraumatic, normocephalic, HEENT:[Neck is supple.] [No neck masses.] [No thyromegaly.] [No JVD.], Nasogastric tube is in place. Chest: [Clear throughout, no crackles, no rhonchi, no wheezes.] Cardiac Exam: [Normal S1 and S2, no S3 gallop, no murmur.] Abdomen: [Soft, nontender, no megaly, no rebound, no guarding, normal bowel sounds.] Extremities: [No clubbing, no edema, no cyanosis.] Neurological Exam: [No focal neurologic deficit.] Alert oriented 3. Psychiatric: Normal mood affect and normal mental status examination. Skin: No rashes. - Labs CBC & Chem 7: 06/08/21 05:43 06/08/21 05:43 Labs: Abnormal Lab Results - Last 24 Hours (Table) 06/07/21 06/07/21 06/07/21 Range/Units 13:24 14:55 14:55 RBC 2.43 L (3.80-5.40) m/uL Hgb 7.6 L (11.4-16.0) gm/dL Hct 23.0 L (34.0-46.0) % Plt Count 124 L (150-450) k/uL Neutrophils # 9.6 H (1.3-7.7) k/uL Lymphocytes # 0.6 L (1.0-4.8) k/uL APTT 30.2 H (22.0-30.0) sec Chloride (98-107) mmol/L Carbon Dioxide (22-30) mmol/L POC Glucose (mg/dL) 117 H (75-99) mg/dL Calcium (8.4-10.2) mg/dL AST (14-36) U/L ALT (4-34) U/L Total Protein (6.3-8.2) g/dL Albumin (3.5-5.0) g/dL 06/07/21 06/07/21 06/07/21 Range/Units 17:52 20:08 20:41 RBC (3.80-5.40) m/uL Hgb (11.4-16.0) gm/dL Hct (34.0-46.0) % Plt Count (150-450) k/uL Neutrophils # (1.3-7.7) k/uL Lymphocytes # (1.0-4.8) k/uL APTT 42.5 H (22.0-30.0) sec Chloride (98-107) mmol/L Carbon Dioxide (22-30) mmol/L POC Glucose (mg/dL) 102 H 101 H (75-99) mg/dL Calcium (8.4-10.2) mg/dL AST (14-36) U/L ALT (4-34) U/L Total Protein (6.3-8.2) g/dL Albumin (3.5-5.0) g/dL 06/08/21 06/08/21 06/08/21 Range/Units 05:43 05:43 05:43 RBC 2.63 L (3.80-5.40) m/uL Hgb 8.0 L (11.4-16.0) gm/dL Hct 25.6 L (34.0-46.0) % Plt Count 121 L (150-450) k/uL Neutrophils # 9.2 H (1.3-7.7) k/uL Lymphocytes # 0.5 L (1.0-4.8) k/uL APTT 44.5 H (22.0-30.0) sec Chloride 114 H (98-107) mmol/L Carbon Dioxide 21 L (22-30) mmol/L POC Glucose (mg/dL) (75-99) mg/dL Calcium 7.4 L (8.4-10.2) mg/dL AST 89 H (14-36) U/L ALT 536 H (4-34) U/L Total Protein 4.3 L (6.3-8.2) g/dL Albumin 1.9 L (3.5-5.0) g/dL 06/08/21 Range/Units 07:08 RBC (3.80-5.40) m/uL Hgb (11.4-16.0) gm/dL Hct (34.0-46.0) % Plt Count (150-450) k/uL Neutrophils # (1.3-7.7) k/uL Lymphocytes # (1.0-4.8) k/uL APTT (22.0-30.0) sec Chloride (98-107) mmol/L Carbon Dioxide (22-30) mmol/L POC Glucose (mg/dL) 101 H (75-99) mg/dL Calcium (8.4-10.2) mg/dL AST (14-36) U/L ALT (4-34) U/L Total Protein (6.3-8.2) g/dL Albumin (3.5-5.0) g/dL Microbiology - Last 24 Hours (Table) 06/05/21 13:25 Blood Culture - Preliminary Blood No Growth after 48 hours 06/05/21 16:59 Urine Culture - Final Urine,Catheterized Assessment and Plan Assessment: Impression: Postoperative bibasilar atelectasis, expected, doubt pneumonia Small bowel obstruction Status post lumbar spine surgery postoperative day #6. History of atrial fibrillation. History of coronary artery disease and previous CABG. History of underlying COPD presently inactive. Type 2 diabetes. Dyslipidemia. History of post polio syndrome. History of spontaneous pneumothorax. Recommendation: Continue incentive spirometry. Continue nasogastric tube to suction Continue antibiotics and/Zosyn. Transfer patient out of the ICU to a monitored bed on selective. Ambulate if possible. Continue bronchodilators. We will continue to follow. Time with Patient: Less than 30
[2021-06-08] MEDS: HEPARIN SOD,PORK IN 0.45% NACL 25,000 UNIT in 0.45% NACL 1 250ML.BAG IV SCH (14:37)
[2021-06-08 14:56] LABS: Prothrombin Time 10.8 sec (9.0-12.0)
--- NOTE | 2021-06-08 15:06 | CT ---
EXAMINATION TYPE: CT abdomen pelvis w con DATE OF EXAM: 06/08/2021 COMPARISON: CT dated 06/05/2021 HISTORY: Abdominal pain. CT DLP: 2733 mGycm Automated exposure control for dose reduction was used. TECHNIQUE: Helical acquisition of images was performed from the lung bases through the pelvis. CONTRAST: Performed without Oral Contrast and with IV Contrast, patient injected with 100ml mL of Isovue 300. FINDINGS: Unremarkable stomach and duodenum. Dilated proximal jejunal loops measuring up to 3.7 cm. Associated significant wall thickening of a jejunal loop seen in the pelvis, demonstrating fecalization and susp ected pneumatosis. No free peritoneal air or portal venous gas. The ingested oral contrast has not re ached the terminal ileum. There is gradual tapering of the caliber of the small bowel distal to the above-described thickened j ejunal loop without definite transition down to the ileocecal junction. Free fluid is seen in the pel vis, progressed compared to the previous recent this CT scan. Ischemia of the thickened jejunal loop cannot be excluded. Unremarkable colonic anastomosis in the pelvis. Moderate fecal loading of the colon. No evidence of c olonic obstruction. Slightly dilated appendix measuring up to 9 mm without significant surrounding in flammatory changes. Air and Ye catheter are seen within the urinary bladder. The endometrium measu res up to 12 mm, please correlate with pelvic ultrasound results. No other definite gross uterine or adnexal mass. No definite hepatic focal lesion. Previous cholecystectomy. Unremarkable spleen and adrenals. Atrophi c pancreas. 3 mm nonobstructing calculus is seen at the upper pole of the left kidney with smaller ri ght nonobstructing renal calculi. Atrophic changes of the right kidney. Extensive arterial atheroscle rotic calcifications. No suspicious lymphadenopathy. Moderate right and small left pleural effusions with adjacent subsegmental pulmonary atelectasis. Pulmonary infiltration is seen in the left lung bas which could be due to aspiration however pneumoni a cannot be excluded, please correlate clinically. NG tube is seen with the tip within the gastric ca vity. Sternotomy wire sutures. Spinal canal catheter is also noted with overlying surgical clips and left flank stimulator device. Lumbosacral fixation using rods and multiple screws, causing significan t artifacts on the adjacent structures. IMPRESSION: Persistent signs of low-grade small bowel obstruction with thickened jejunal loop in the pelvis demon strating possible pneumatosis as described above. More free fluid is seen in the pelvis. The underlying etiology could be related to adhesion however ischemia or infarction of the thickened pelvic jejunal loop cannot be excluded. Recommend clinical correlation and surgery consultation if no t already performed. No free peritoneal air or portal venous gas. Other interval changes and incident al findings as detailed above.
[2021-06-08 16:13] LABS: Glucose,Whole Blood 101 mg/dL (75-99)
--- NOTE | 2021-06-08 20:13 | P.PN ---
Subjective Progress Note Date: 06/08/21 This is a 65-year-old female patient of Dr. Leblanc who presented for an elective L2 to S1 decompression fusion. Patient has a long-standing history of chronic back pain and was found to have L2 to S1 severe stenosis L2 to S1 spondylosis resulting in left lower extremity weakness low back pain and radiculopathy. Patient has failed outpatient conservative management and pain control. She has past medical history of degenerative disc disease with history of lumbar laminectomy and stimulator placement for pain management. Additional medical history includes insulin-dependent diabetes mellitus, hypertension, hyperlipidemia and post polio syndrome. Patient is currently postop day 1. Patient is resting comfortably in bed. Patient reports improvement with lower extremity weakness and pain but does report she's been having issues with diarrhea since [facility] facility. At this time will order C. diff sample. Patient also has low potassium of 3.2 ordered replacement protocol. Patient also placed on sliding scale insulin coverage along with her home dose of long-acting insulin. At this time patient denies chest pain or shortness of breath. Patient denies nausea vomiting or diarrhea. Patient denies any urinary burning or frequency On 06/04/2021 patient was seen and examined on the medical floor she is alert and oriented 3 in no apparent distress she had episodes of nausea and vomiting during last night and is receiving Zofran and Compazine as needed she is also complaining of pain in the lower back otherwise she denies any complaints there is no fever or chills no headache or dizziness no chest pain no shortness of breath no cough no abdominal pain no diarrhea and no urinary symptoms On 06/05/2021 patient was and A-team this morning due to lethargy and tachycardia. Patient was also found to be hypotensive. CTA was performed at that time showing no signs of PE but marked dilated esophagus gastroesophageal junction visual portion of the stomach. Gastric bowel obstruction cannot be excluded. NG tube was placed and 2.5L of dark output was obtained. Cardiology service is consulted for tachycardia and elevated troponin. Upon examination patient was found to be alert and oriented but remained hypotensive with blood pressure in the 60s patient currently getting second liter bolus continue fluids at 120 critical care service is consulted. Patient has been moved higher level of care. Surgical services also consulted for possible obstruction. Computed tomography scan with contrast ordered. On 06/06/2021 patient was seen and examined in the ICU she is alert and responsive in no apparent distress, per her nurse patient is upset and wants her NG tube out and wants to be able to eat at this time. It was explained to her that she has a bowel obstruction and surgery are following. She is still complaining of some abdominal discomfort otherwise no complaints at this time, her temperature is 100.5 pulse 118 respiration 21 blood pressure 158/43 pulse ox 95% on room air laboratory data reveals a white blood count of 24.5 hemoglobin 7.5 platelet count 198 BUN 41 creatinine 1.31 AST 1284 ALT 1525 which is lower than yesterday. At this time patient remains in ICU she is followed by pulmonary critical care, infectious disease, Gen. surgery, and orthopedic s jayleen, she was started on IV Zosyn yesterday, prognosis is guarded will follow closely On 06/07/2021 patient maintained in the intensive care unit. Patient is alert and oriented 3. Hemoglobin today is 31 unit of PRBCs have been ordered. Patient's upset that she has NG tube. Per nursing staff NG tube was pulled out last night and was replaced immediately put out 650. NG output appears green. Liver enzymes are trending down. Patient is in sinus rhythm. Patient remains on IV Zosyn. White blood cell 10.3. At this time patient denies chest pain or shortness of breath. Patient denies any nausea vomiting or diarrhea. Patient denies any urinary burning or frequency. On 06/08/2021 patient was seen and examined in the ICU she is alert and oriented 3 in no apparent distress she still has nasogastric tube in place there is no fever or chills no headache or dizziness no chest pain no shortness of breath no cough no nausea or vomiting no abdominal pain no diarrhea and no urinary sym ptoms. Vital examination reveals a temperature of 97.4 pulse 92 respiration 20 blood pressure 113/56 pulse ox 96% on 3 L nasal cannula, laboratory data reveals a white blood count of 10.1 hemoglobin 8.0 platelet count 121 BUN 14 creatinine 0.56 Objective - Vital Signs Vital signs: Vital Signs Temp 97.6 F 06/08/21 08:00 Pulse 89 06/08/21 10:00 Resp 17 06/08/21 10:00 BP 92/47 06/08/21 10:00 Pulse Ox 98 06/08/21 10:00 Intake & Output 06/07/21 06/08/21 06/08/21 18:59 06:59 18:59 Intake Total 2438.894 1871.867 390 Output Total 1690 1875 400 Balance 748.894 -3.133 -10 Weight 102.2 kg Intake: IV 270 Piperacillin-Tazobactam 3 100 .375 gm In Sodium Chloride 0.9% 100 ml @ 25 mls/hr IVPB Q8HR [facility] Rx# :[id number] Sodium Chloride 0.9% 1, 170 000 ml @ 120 mls/hr IV . Q8H20M [facility] Rx#:[id number] Intake, IV Titration 6704.918 9478.867 120 Amount Amiodarone 450 mg In 248.894 250 Dextrose 5% in Water 250 ml @ 0.5 MG/MIN 16.667 mls/hr IV .Q15H [facility] Rx#: [id number] Heparin Sod,Pork in 0.45% 51.867 NaCl 25,000 unit In 0.45 % NaCl 1 250ml.bag @ 800 UNIT/HR 8 mls/hr IV .Q24H [facility] Rx#:[id number] Piperacillin-Tazobactam 3 150 50 .375 gm In Sodium Chloride 0.9% 100 ml @ 25 mls/hr IVPB Q8HR [facility] Rx# :[id number] Potassium Chloride 20 meq 200 In Water For Injection 1 100ml.bag @ 50 mls/hr IVPB Q2H [facility] Rx#: [id number] Potassium Chloride 20 meq 100 100 In Water For Injection 1 100ml.bag @ 50 mls/hr IVPB Q2H [facility] Rx#: [id number] Sodium Chloride 0.9% 1, 760 1320 120 000 ml @ 120 mls/hr IV . Q8H20M [facility] Rx#:[id number] Oral 300 100 Blood Product 620 Rc As-1 Unit 310 [id number] Other 60 Rc As-1 Unit 60 [id number] Output: Gastric Drainage 750 850 Drainage 30 Right Lower Back 30 Urine 910 1025 400 Other: Voiding Method Indwelling Catheter Indwelling Catheter - Exam Head normocephalic and atraumatic Neck supple no JVD Lungs clear to auscultation bilaterally no wheezing or crackles Heart regular rate and rhythm S1-S2, no rub or gallop Abdomen is soft nontender nondistended positive bowel sounds no hepatosplenomegaly Extremities no edema Neuro alert and orientated to 3 - Labs CBC & Chem 7: 06/08/21 05:43 06/08/21 05:43 Labs: Abnormal Lab Results - Last 24 Hours (Table) 06/07/21 06/07/21 06/07/21 Range/Units 08:00 13:24 14:55 RBC 2.43 L (3.80-5.40) m/uL Hgb 7.6 L (11.4-16.0) gm/dL Hct 23.0 L (34.0-46.0) % Plt Count 124 L (150-450) k/uL Neutrophils # 9.6 H (1.3-7.7) k/uL Lymphocytes # 0.6 L (1.0-4.8) k/uL APTT (22.0-30.0) sec Chloride (98-107) mmol/L Carbon Dioxide (22-30) mmol/L POC Glucose (mg/dL) 117 H (75-99) mg/dL Calcium (8.4-10.2) mg/dL AST (14-36) U/L ALT (4-34) U/L Total Protein (6.3-8.2) g/dL Albumin (3.5-5.0) g/dL Crossmatch See Detail 06/07/21 06/07/21 06/07/21 Range/Units 14:55 17:52 20:08 RBC (3.80-5.40) m/uL Hgb (11.4-16.0) gm/dL Hct (34.0-46.0) % Plt Count (150-450) k/uL Neutrophils # (1.3-7.7) k/uL Lymphocytes # (1.0-4.8) k/uL APTT 30.2 H 42.5 H (22.0-30.0) sec Chloride (98-107) mmol/L Carbon Dioxide (22-30) mmol/L POC Glucose (mg/dL) 102 H (75-99) mg/dL Calcium (8.4-10.2) mg/dL AST (14-36) U/L ALT (4-34) U/L Total Protein (6.3-8.2) g/dL Albumin (3.5-5.0) g/dL Crossmatch 06/07/21 06/08/21 06/08/21 Range/Units 20:41 05:43 05:43 RBC 2.63 L (3.80-5.40) m/uL Hgb 8.0 L (11.4-16.0) gm/dL Hct 25.6 L (34.0-46.0) % Plt Count 121 L (150-450) k/uL Neutrophils # 9.2 H (1.3-7.7) k/uL Lymphocytes # 0.5 L (1.0-4.8) k/uL APTT (22.0-30.0) sec Chloride 114 H (98-107) mmol/L Carbon Dioxide 21 L (22-30) mmol/L POC Glucose (mg/dL) 101 H (75-99) mg/dL Calcium 7.4 L (8.4-10.2) mg/dL AST 89 H (14-36) U/L ALT 536 H (4-34) U/L Total Protein 4.3 L (6.3-8.2) g/dL Albumin 1.9 L (3.5-5.0) g/dL Crossmatch 06/08/21 06/08/21 Range/Units 05:43 07:08 RBC (3.80-5.40) m/uL Hgb (11.4-16.0) gm/dL Hct (34.0-46.0) % Plt Count (150-450) k/uL Neutrophils # (1.3-7.7) k/uL Lymphocytes # (1.0-4.8) k/uL APTT 44.5 H (22.0-30.0) sec Chloride (98-107) mmol/L Carbon Dioxide (22-30) mmol/L POC Glucose (mg/dL) 101 H (75-99) mg/dL Calcium (8.4-10.2) mg/dL AST (14-36) U/L ALT (4-34) U/L Total Protein (6.3-8.2) g/dL Albumin (3.5-5.0) g/dL Crossmatch Microbiology - Last 24 Hours (Table) 06/05/21 13:25 Blood Culture - Preliminary Blood No Growth after 48 hours 06/05/21 16:59 Urine Culture - Final Urine,Catheterized Assessment and Plan Assessment: 1. History of L2 to S1 severe stenosis, L2 to S1 spondylosis. status post L2 to S1 decompression fusion with Dr. Mcdonough. Patient is currently postop day 4 2. History of right lower extremity weakness and right lower extremity radiculopathy and chronic back pain secondary to above 3. History of insulin-dependent diabetes mellitus. Patient maintained on long- acting insulin sliding scale coverage added 4. History of essential hypertension 5. History of hyperlipidemia 6. History of postpolio syndrome 7. History of degenerative disc disease with history of lumbar laminectomy stimulator placement for pain management 8. Hypokalemia. Replace per protocol 9. Diarrhea. Stool for C. diff ordered 10. Elevated troponin. Cardiology services consulted 11. Hypotension likely secondary from possible sepsis 12. Acute GI obstruction. Surgical services consulted NG tube in place 13. Atrial fibrillation with rapid ventricular response. Patient has been started on amiodarone drip cardiology services cardiology services following 14. Possible aspiration pneumonia. Dr. Izquierdo has been consulted patient started on Zosyn Patient remains in the intensive care unit Surgical, cardiology, critical care and infectious disease services following Patient remains with NG tube placement Maintained on IV antibiotics 1 unit of PRBCs ordered for 06/07/2031 Repeat labs ordered
[2021-06-08 20:30] LABS: Glucose,Whole Blood 94 mg/dL (75-99)
[2021-06-09] MEDS: SODIUM CHLORIDE 0.9% 1,000 ML IV SCH ×2 (03:48→15:29)
[2021-06-09 06:41] LABS: Basophils % (A) 0 %; Eosinophils # (A) 0.1 k/uL (0-0.7); Eosinophils % (A) 1 %; HCT 24.5 % (34.0-46.0); Hypochromasia Slight; Lymphocytes # (A) 0.7 k/uL (1.0-4.8); Lymphocytes % (A) 6 %; MCH 31.9 pg (25.0-35.0); MCHC 32.4 g/dL (31.0-37.0); MCV 98.3 fL (80.0-100.0); Macrocytosis Slight; Mean Platelet Volume 7.9; Monocytes # (A) 0.3 k/uL (0-1.0); Monocytes % (A) 2 %; Neutrophils # (A) 9.9 k/uL (1.3-7.7); Neutrophils % (A) 90 %; Platelet Count 127 k/uL (150-450); RDW 15.4 % (11.5-15.5)
[2021-06-09 06:43] LABS: Glucose,Whole Blood 89 mg/dL (75-99)
[2021-06-09 06:58] LABS: African American GFR (CKD) >90 (>60 ml/min/1.73 sqM); Anion Gap 5 mmol/L; Blood Urea Nitrogen 10 mg/dL (7-17); Calcium 7.4 mg/dL (8.4-10.2); Carbon Dioxide 20 mmol/L (22-30); Chloride 110 mmol/L (98-107); Glucose 80 mg/dL (74-99); Non-African American GFR(CKD) >90 (>60 ml/min/1.73 sqM); Potassium 3.6 mmol/L (3.5-5.1); Sodium 135 mmol/L (137-145)
[2021-06-09] MEDS: INSULIN ASPART (NovoLOG) 100 UNIT/ML VIAL SQ SCH ×4 (07:14→20:19)
[2021-06-09] MEDS ORDERED: POTASSIUM BICARBONATE/CIT AC 20 MEQ TABLET.EFF NG-TUBE SCH (08:00)
[2021-06-09] MEDS: AMIODARONE 450 MG in DEXTROSE 5% IN WATER 250 ML IV SCH ×2 (08:20)
[2021-06-09] MEDS: NYSTATIN 100,000 UNIT/GM OINT 30 GM TUBE TOPICAL SCH (08:21)
[2021-06-09] MEDS: PANTOPRAZOLE 40 MG/10 ML VIAL IVP SCH (08:21)
[2021-06-09] MEDS: PIPERACILLIN-TAZOBACTAM 3.375 GM in SODIUM CHLORIDE 0.9% 100 ML IVPB SCH ×2 (08:21→15:50)
[2021-06-09] MEDS: NOREPINEPHRINE 8 MG in SODIUM CHLORIDE 0.9% 250 ML IV SCH (08:30)
--- NOTE | 2021-06-09 09:19 | PN ---
PROGRESS NOTE Mrs. Robison is in sinus rhythm. She still has an NG tube, apparently has partial bowel obstruction. Surgery consult has been advised. Cardiac-quintana we will continue the amiodarone at 0.5 mg drip since she cannot take any oral medications yet. Her laboratory data, including liver function tests, will be ordered. The last AST and ALT were slightly abnormal but were showing an improved trend. If she remains in sinus rhythm for the next few hours, I will discontinue the amiodarone drip and see how she does. Vitals are stable. S1-S2 heard normally. Short systolic murmur noted. Lungs reveal diminished air entry. Abdomen is soft. Rest of physical exam unchanged. Prognosis remains guarded. MMODL / IJN: [id number] /
[2021-06-09 11:26] LABS: Glucose,Whole Blood 89 mg/dL (75-99)
--- NOTE | 2021-06-09 13:48 | P.PN ---
Subjective Progress Note Date: 06/09/21 Principal diagnosis: L2 to S1 spondylosis with stenosis L4-L5 grade 1 spondylolisthesis Pt s/e again today. No acute changes overnight. Still states legs feel good and are moving well. Denies any back pain currently. She did sit up in chair. Has not really walked much. Needs to move more with PT, somewhat teathered with NG and such. Denies any fevers chills shortness of breath or chest pain denies any perineal numbness or tingling Objective - Vital Signs Vital signs: Vital Signs Temp 97.6 F 06/09/21 04:00 Pulse 81 06/09/21 12:00 Resp 22 06/09/21 12:00 BP 135/52 06/09/21 12:00 Pulse Ox 97 06/09/21 12:00 Intake & Output 06/08/21 06/09/21 06/09/21 18:59 06:59 18:59 Intake Total 1511.248 027 4585.671 Output Total 1375 730 Balance 136.672 -630 1666.671 Weight 107 kg Intake: IV 598 503 7413 Piperacillin-Tazobactam 3 200 100 .375 gm In Sodium Chloride 0.9% 100 ml @ 25 mls/hr IVPB Q8HR [facility] Rx# :[id number] Sodium Chloride 0.9% 1, 770 1440 000 ml @ 120 mls/hr IV . Q8H20M [facility] Rx#:[id number] Intake, IV Titration 541.672 226.671 Amount Amiodarone 450 mg In 250 226.671 Dextrose 5% in Water 250 ml @ 0.5 MG/MIN 16.667 mls/hr IV .Q15H [facility] Rx#: [id number] Heparin Sod,Pork in 0.45% 171.672 NaCl 25,000 unit In 0.45 % NaCl 1 250ml.bag @ 800 UNIT/HR 8 mls/hr IV .Q24H [facility] Rx#:[id number] Sodium Chloride 0.9% 1, 120 000 ml @ 120 mls/hr IV . Q8H20M [facility] Rx#:[id number] Output: Gastric Drainage 100 Urine 1075 630 Emesis 300 Other: Voiding Method Indwelling Catheter Indwelling Catheter Indwelling Catheter # Bowel Movements 1 1 - Exam Exam repeated changes noted below drain has been DC'd Patient is alert and oriented 3 appears well-nourished well-hydrated They do not appear septic. Lower extremities with 4/5 strength in all major muscle groups. Right lower extremity is still fairly weak in hip flexion however is getting better. Upper extremities show 4+/5 strength in all major muscle groups. [2]/4DTR all UE and LE b/l Patient shows a negative Homans, Ward's, negative Babinski's negative clonus bilaterally. negative straight leg raise bilaterally. No tensioning signs. Cranial nerves II through XII are grossly intact. There is FROM that is painless of the b/l UE and LE in all major joints [w/o pain]. They are intact to light touch sensation in L2 to S1 nerve distribution. Patient has palpable dorsalis pedis was posterior tibial pulses. Compartments are soft and compressible. - Labs CBC & Chem 7: 06/09/21 06:13 06/09/21 06:13 Labs: Abnormal Lab Results - Last 24 Hours (Table) 06/08/21 06/09/21 06/09/21 Range/Units 16:12 06:13 06:13 WBC 11.0 H (3.8-10.6) k/uL RBC 2.50 L (3.80-5.40) m/uL Hgb 8.0 L (11.4-16.0) gm/dL Hct 24.5 L (34.0-46.0) % Plt Count 127 L (150-450) k/uL Neutrophils # 9.9 H (1.3-7.7) k/uL Lymphocytes # 0.7 L (1.0-4.8) k/uL APTT 47.6 H (22.0-30.0) sec Sodium (137-145) mmol/L Chloride (98-107) mmol/L Carbon Dioxide (22-30) mmol/L Creatinine (0.52-1.04) mg/dL POC Glucose (mg/dL) 101 H (75-99) mg/dL Calcium (8.4-10.2) mg/dL 06/09/21 Range/Units 06:13 WBC (3.8-10.6) k/uL RBC (3.80-5.40) m/uL Hgb (11.4-16.0) gm/dL Hct (34.0-46.0) % Plt Count (150-450) k/uL Neutrophils # (1.3-7.7) k/uL Lymphocytes # (1.0-4.8) k/uL APTT (22.0-30.0) sec Sodium 135 L (137-145) mmol/L Chloride 110 H (98-107) mmol/L Carbon Dioxide 20 L (22-30) mmol/L Creatinine 0.49 L (0.52-1.04) mg/dL POC Glucose (mg/dL) (75-99) mg/dL Calcium 7.4 L (8.4-10.2) mg/dL Microbiology - Last 24 Hours (Table) 06/05/21 13:25 Blood Culture - Preliminary Blood No Growth after 72 hours Assessment and Plan Assessment: 65-year-old female postop day 7 L2 to S1 decompression fusion 1. L2-S1 severe stenosis 2.L2-S1 spondylosis 3. right lower extremity weakness 4. right lower extremity radiculopathy 5. L2-3 large HNP with sequestration 6. Mechanical low back pain 7. Acute bowel obstruction Plan: -Appreciate exchange consultant and team management. UP AND ABOUT TODAY! Patient needs to be more mobile. -Activity: Ambulate QID, OOB all meals, up and about, limit lifting bending twisting to less than 5 lbs. Use walker or cane if needed for stability. -Daily PT/OT, increase ambulation strength and balance. -No braces needed -Pain control: Adequate at this time -Meds: reviewed, cont with zofran and compazine for nausea. Pt on dexamethasone as well PO, not ideal for fusion and healing purposes but OK for need of antinausea. -GI ppx: senna, Miralax -DC stacy when up and about, bedside commode if needed -DVT PPX: Heparin SQ; TEDs; SCDs; Early ambulation -Hygiene: Shower OK. Maintain dressing clean and dry. Meticulous cleaning after BMs away from incision site -Drains: DC'd today -Encourage IS 10x/hr -Pulmonary general surgery and medical management -Dispo: Pending
--- NOTE | 2021-06-09 13:51 | P.PN ---
Subjective Progress Note Date: 06/09/21 Principal diagnosis: Ferrous post lumbar spine surgery on June 02, postoperative atelectasis and small bowel obstruction. Pulmonary consult dated 06/05/2021. 65-year-old female who had lumbar spine surgery, on June 02. The patient's surgery was done by Dr. Dunn. Apparently, the patient was up on the fourth floor, and early this morning, a rapid response was called on the patient, because of low blood pressure and low saturations. The patient was transferred to 3 S. Or recently, we will called by the 3 S. nurse, Ness, who states that the patient was still receiving high concentrations of oxygen, and her blood pressure was only about 65-70 systolic. We decided to transfer the patient to the intensive care unit. The patient currently has a partial rebr eather in place, and saline running at 120 mL an hour. She did receive 3 L of fluid on the floor. She was too unstable with that blood pressure to go for a CAT scan of the abdomen. The primary service is thinking that the patient may have a bowel obstruction. Currently, her blood pressure is only 70/25. An NG tube was placed, and 2 half liters of dark material came out from the NG tube. The patient has a history of atrial fibrillation, CAD, COPD, diabetes, GERD, and hyperlipidemia. The patient apparently also has a history of post polio syndrome, spontaneous pneumothorax, and previous bowel resection. She's also had a triple bypass surgery back in 2013. She does have a history of previous tobacco use. Currently labs include a white count of 24.3, hemoglobin 9.3, hematocrit 27.8, platelet count 2 41,000. Blood gases show pO2 of 152, pCO2 of 20, and a pH is 7.40. This blood gases consistent with a severe metabolic acidosis. Sodium 134, potassium 3.1, chlorides 100, CO2 23, anion gap 11, BUN 25, creatinine 0.95. Troponin was 0.064. A abdominal film showed a nonspecific nonobstructive bowel gas pattern. A chest x-ray was normal. A CT angiogram was negative for pulmonary embolism. Progress note dated 06/06/2021. 65-year-old female, seen yesterday in consultation. She had lumbar spine surgery on June 02. The patient was discovered to have a low blood pressure , and low saturations, was transferred initially from the fourth floor, to the third floor. Because of worsening respiratory status and low blood pressure, she came to the intensive care unit yesterday. A computed tomography scan of the abdomen revealed a small bowel obstruction. The patient is currently on 5 L nasal cannula, saline at 100 mL an hour, and norepinephrine at 0.09 mcg/kg/m. An NG tube is in place. White count 24.5, hemoglobin 7.5, hematocrit 23.1, platelet count 198,000. Sodium 136, potassium 4, chlorides 109, CO2 19, anion gap 8, BUN 41, with a creatinine of 1.31. AST is 1284 and ALT is 1525. Troponin was 0.082. Pro-calcitonin level was 2.87. Cortisol was 64. Computed tomography scan of the abdomen was consistent with a distal mechanical small bowel obstruction. Progress note dated 06/07/2021. 65-year-old female, seen again, in room 263. The patient was admitted to the ICU, with hypotension, and increasing oxygen requirements. The patient's currently on 5 L nasal cannula, and has an NG tube in place. She continues on amiodarone at 0.5 mg/m. She's getting saline at 120 mL an hour. Her hemoglobin this morning was 6.3, so she is receiving 1 unit of packed red blood cells. White count 10.3, hemoglobin 6.3, hematocrit 19.4, and platelet count 117,000. Sodium 141, potassium 3.5, chlorides 1:15, CO2 23, BUN 29, creatinine 0.72. AST 239, ALT 852. Albumin is 1.8. No chest x-ray today. Reevaluated today on 06/08/2021, patient remains in the ICU, she is actually on 2 L nasal cannula, does not seem to be in any distress. Continues to have nasogastric tube in place, patient apparently had small bowel obstruction, and being followed by other consultants. Pulmonary-quintana she is not in any distress, chest x-ray showed bibasilar atelectasis, possible infiltrates, and she is on Zosyn empirically. Her electrolytes are normal renal profile is normal WBC count is 10.1 hemoglobin is 8. Patient will be transferred out of the ICU to a regular medical floor today. CBC is relatively unremarkable and electrolytes are unremarkable. Patient was reevaluated today on 06/09/2021, remains in the ICU as an overflow, patient is doing well, accidentally she removed her nasogastric tube, and general surgery was consulted, patient is to be seen by Dr. recinos on consultation. Patient has no active pulmonary symptoms, she is on few liters nasal cannula, in no distress. Remains on Zosyn empirically. WBC count is 11 hemoglobin is 8 PTT is 47.6 electrolytes are normal renal profile is normal CT abdomen and pelvis showed low-grade small bowel obstruction with thickened jejunal loop in the pelvis demonstrated possible pneumatosis, no free fluid seen in the pelvis. Objective - Vital Signs Vital signs: Vital Signs Temp 97.6 F 06/09/21 04:00 Pulse 81 06/09/21 12:00 Resp 22 06/09/21 12:00 BP 135/52 06/09/21 12:00 Pulse Ox 97 06/09/21 12:00 Intake & Output 06/08/21 06/09/21 06/09/21 18:59 06:59 18:59 Intake Total 1511.178 559 0970.671 Output Total 1375 730 Balance 136.672 -630 1666.671 Weight 107 kg Intake: IV 789 480 0362 Piperacillin-Tazobactam 3 200 100 .375 gm In Sodium Chloride 0.9% 100 ml @ 25 mls/hr IVPB Q8HR [facility] Rx# :[id number] Sodium Chloride 0.9% 1, 770 1440 000 ml @ 120 mls/hr IV . Q8H20M [facility] Rx#:[id number] Intake, IV Titration 541.672 226.671 Amount Amiodarone 450 mg In 250 226.671 Dextrose 5% in Water 250 ml @ 0.5 MG/MIN 16.667 mls/hr IV .Q15H [facility] Rx#: [id number] Heparin Sod,Pork in 0.45% 171.672 NaCl 25,000 unit In 0.45 % NaCl 1 250ml.bag @ 800 UNIT/HR 8 mls/hr IV .Q24H [facility] Rx#:[id number] Sodium Chloride 0.9% 1, 120 000 ml @ 120 mls/hr IV . Q8H20M [facility] Rx#:[id number] Output: Gastric Drainage 100 Urine 1075 630 Emesis 300 Other: Voiding Method Indwelling Catheter Indwelling Catheter Indwelling Catheter # Bowel Movements 1 1 - Exam Physical Exam revealed 65-year-old female in no distress. On 2 L nasal cannula. Head: Atraumatic, normocephalic, HEENT:[Neck is supple.] [No neck masses.] [No thyromegaly.] [No JVD.], Nasogastric tube has been removed by the patient. Chest: [Clear throughout, no crackles, no rhonchi, no wheezes.] Cardiac Exam: [Normal S1 and S2, no S3 gallop, no murmur.] Abdomen: [Soft, nontender, no megaly, no rebound, no guarding, diminished bowel sounds Extremities: [No clubbing, no edema, no cyanosis.] Neurological Exam: [No focal neurologic deficit.] Alert oriented 3. Psychiatric: Normal mood affect and normal mental status examination. Skin: No rashes. - Labs CBC & Chem 7: 06/09/21 06:13 06/09/21 06:13 Labs: Abnormal Lab Results - Last 24 Hours (Table) 06/08/21 06/09/21 06/09/21 Range/Units 16:12 06:13 06:13 WBC 11.0 H (3.8-10.6) k/uL RBC 2.50 L (3.80-5.40) m/uL Hgb 8.0 L (11.4-16.0) gm/dL Hct 24.5 L (34.0-46.0) % Plt Count 127 L (150-450) k/uL Neutrophils # 9.9 H (1.3-7.7) k/uL Lymphocytes # 0.7 L (1.0-4.8) k/uL APTT 47.6 H (22.0-30.0) sec Sodium (137-145) mmol/L Chloride (98-107) mmol/L Carbon Dioxide (22-30) mmol/L Creatinine (0.52-1.04) mg/dL POC Glucose (mg/dL) 101 H (75-99) mg/dL Calcium (8.4-10.2) mg/dL 06/09/21 Range/Units 06:13 WBC (3.8-10.6) k/uL RBC (3.80-5.40) m/uL Hgb (11.4-16.0) gm/dL Hct (34.0-46.0) % Plt Count (150-450) k/uL Neutrophils # (1.3-7.7) k/uL Lymphocytes # (1.0-4.8) k/uL APTT (22.0-30.0) sec Sodium 135 L (137-145) mmol/L Chloride 110 H (98-107) mmol/L Carbon Dioxide 20 L (22-30) mmol/L Creatinine 0.49 L (0.52-1.04) mg/dL POC Glucose (mg/dL) (75-99) mg/dL Calcium 7.4 L (8.4-10.2) mg/dL Microbiology - Last 24 Hours (Table) 06/05/21 13:25 Blood Culture - Preliminary Blood No Growth after 72 hours Assessment and Plan Assessment: Impression: Postoperative bibasilar atelectasis, expected, doubt pneumonia Small bowel obstruction Status post lumbar spine surgery postoperative day #7 History of atrial fibrillation. History of coronary artery disease and previous CABG. History of underlying COPD presently inactive. Type 2 diabetes. Dyslipidemia. History of post polio syndrome. History of spontaneous pneumothorax. Recommendation: Continue incentive spirometry. Suggest placing back the nasogastric tube however since the patient is being se en by surgery will await further input. Continue antibiotics and/Zosyn. Transfer patient out of the ICU to a monitored bed on selective. Ambulate Continue bronchodilators. We will continue to follow. Time with Patient: Less than 30
--- NOTE | 2021-06-09 16:17 | CDI ---
Documentation Clarification Form Date: 06/09/2021 From: Radha Wilson RN, CCDS Admit Date: 06/04/2021 11:00:00 AM Patient Name: Shelby Robison Visit Number: [id number] Discharge Date: ATTENTION: The Clinical Documentation Specialists (CDI) and [facility] Coding Staff appreciate your assistance in clarifying documentation. Please respond to the clarification below the line at the bottom and electronically sign. The CDI & [facility] Coding staff will review the response and follow-up if needed. Please note: Queries are made part of the Legal Health Record. If you have any questions, please contact the author of this message via ITS. Dr. Jt Dunn The patients principal diagnosis the diagnosis that was chiefly responsible for the admission - has not been clearly identified and clarification is requested. The patient presented for elective procedure L2-S1 spondylosis with stenosis L4- L5 grade 1 spondylolisthesis. Diabetes mellitus, hypertension, Post polio syndrome, COPD, Atrial Fibrillation, CAD, Spontaneous pneumothorax Former smoker 06/06 ID:Sepsis. Patient with a low-grade fever of 100.5, the patient did have elevated white count and tachycardia with concerning for ileus and possible aspiration pneumonia, sputum has significant vomiting.. Continue with Zosyn. 06/04 WBC 23, Neutrophils 19.22, Potassium 3.2 History/Risk factors: L2-S1 severe stenosis, L2-S1 Spondylosis, Right lower extremity radiculopathy L2-3 large HNP with sequestration, mechanical low back pain Clinical Indicators: 65-year-old female presented on 06/02 for same day surgery per order. On 06/04 inpatient placement was entered. She was having multiple episodes of nausea and vomiting. 06/04 vital sign 130/62 104 18 98 .0 97 % RA 06/05 A- team called due to patient having nausea, tachycardia and hypotension. 06/05 CXR no ac pulmonary disease 06/05 Markedly dilated esophagus, gastroesophageal junction and visualized portion of stomach. Gastric or bowel obstruction cannot be excluded. Treatment: Telemetry monitoring 06/05 NGT (monitor output per protocol) Monitor vital signs, CBC,, O2 sat's (titrate) .9NS @120 HR IV 06/05-06/10 Compazine 5MG IV Q8HRS, Zofran 4 MG IV Q8 HRS Zosyn 3.375 MG IVPB Q HRS In your professional opinion, can you please clarify which diagnosis, after study, was the reason chiefly responsible for the admission? [ ] Nausea and vomiting secondary to acute bowel obstruction [ } Sepsis POA, secondary to aspiration pneumonia [ ] L2-S1 Spinal stenosis [ ] Other, please specify [ ] Unable to determine (Template Last Revised: June 2020) Patient underwent an L2-Pelvis fusion the reason for admission was originally [ ] L2-S1 Spinal stenosis. During her stay, she then developed an ileus and possible obstruction which was the cause of her N/V/F and elevated WBC count, this was not POA. She was worked up appropriately and managed by multiple services including medicine and pulmonary and general surgery. She has had multiple different procedures on her abdomen in the past which is probably what promoted her developing this ileus she was on a bowel regimen postoperatively however she still developed these symptoms. Medicine pulmonology and general surgery evaluated her as well and treated her appropriately. MICHELLE
[2021-06-09 16:41] LABS: Glucose,Whole Blood 112 mg/dL (75-99)
[2021-06-09] MEDS: HEPARIN SOD,PORK IN 0.45% NACL 25,000 UNIT in 0.45% NACL 1 250ML.BAG IV SCH (17:14)
--- NOTE | 2021-06-09 17:26 | CDI ---
Documentation Clarification Form Date: 06/09/2021 05:16:00 PM From: Radha Wilson RN, CCDS Admit Date: 06/04/2021 11:00:00 AM Patient Name: Shelby Robison Visit Number: [id number] Discharge Date: ATTENTION: The Clinical Documentation Specialists (CDI) and [facility] Coding Staff appreciate your assistance in clarifying documentation. Please respond to the clarification below the line at the bottom and electronically sign. The CDI & [facility] Coding staff will review the response and follow-up if needed. Please note: Queries are made part of the Legal Health Record. If you have any questions, please contact the author of this message via ITS. Dr. Caro Maddox Shock is documented in the surgical progress notes on 06/06/21. Additional clarification regarding the type of shock is requested. Patient history/risk factors: L2-S1 severe stenosis, L2-S1 Spondylosis, Right lower extremity radiculopathy L2-3 large HNP with sequestration, mechanical low back pain, Diabetes mellitus, hypertension, Post polio syndrome, COPD, Atrial Fibrillation, CAD, Spontaneous pneumothorax Former smoker Clinical Indicators: [id number] present with L2-S1 stenosis with post procedure nausea, vomiting ruled in for acute bowel obstruction. 06/05/21 she complains of shortness of breath, moderate distress, and tachycardia, lethargic. 06/05 vital signs: 74/52 122 81 % 2/L, 77/46 150 30 80 % Non-rebreather Flow rate 15; 60/42 94 18 92 % Non-rebreather Flow rate15, 64/41 80 20 94 % Non-rebreather Flow rate 15 06/05 WBC 24.3 HGB 9.3, HCT 27.8, BUN 38, Creatinine 1.51 2. WBC 24.5 HGB 7.5, HCT 23.1, BUN 41, Creatinine 1.31 06/05 IM progress note: A-team called due to lethargy and tachycardia. Patient was also found to be hypotensive. She remained hypotensive with blood pressure in the 60's. 06/06 Surgical progress notes: I suspect her leukocytosis largely relates to aspiration pneumonitis and subsequent degree of shock which seems to be settling. Treatment: ICU/Telemetry monitoring Levophed 8 mg in 250ml/bag Drop per orders (06/05 -06/06) , 9NS Bolus 1000 MLS X2 then 120 MLS HR Please clarify the type of shock, if known: [x ] Septic Shock [ ] Hypovolemic Shock [ ] Other, please specify [ ] Unable to determine (Template Last Revised: June 2020) MTDD
[2021-06-09] MEDS ORDERED: POTASSIUM CHLORIDE ER 20 MEQ TAB.ER PO STA (18:37)
--- NOTE | 2021-06-09 19:35 | P.PN ---
Subjective Progress Note Date: 06/09/21 This is a 65-year-old female patient of Dr. Leblanc who presented for an elective L2 to S1 decompression fusion. Patient has a long-standing history of chronic back pain and was found to have L2 to S1 severe stenosis L2 to S1 spondylosis resulting in left lower extremity weakness low back pain and radiculopathy. Patient has failed outpatient conservative management and pain control. She has past medical history of degenerative disc disease with history of lumbar laminectomy and stimulator placement for pain management. Additional medical history includes insulin-dependent diabetes mellitus, hypertension, hyperlipidemia and post polio syndrome. Patient is currently postop day 1. Patient is resting comfortably in bed. Patient reports improvement with lower extremity weakness and pain but does report she's been having issues with diarrhea since [facility] facility. At this time will order C. diff sample. Patient also has low potassium of 3.2 ordered replacement protocol. Patient also placed on sliding scale insulin coverage along with her home dose of long-acting insulin. At this time patient denies chest pain or shortness of breath. Patient denies nausea vomiting or diarrhea. Patient denies any urinary burning or frequency On 06/04/2021 patient was seen and examined on the medical floor she is alert and oriented 3 in no apparent distress she had episodes of nausea and vomiting during last night and is receiving Zofran and Compazine as needed she is also complaining of pain in the lower back otherwise she denies any complaints there is no fever or chills no headache or dizziness no chest pain no shortness of breath no cough no abdominal pain no diarrhea and no urinary symptoms On 06/05/2021 patient was and A-team this morning due to lethargy and tachycardia. Patient was also found to be hypotensive. CTA was performed at that time showing no signs of PE but marked dilated esophagus gastroesophageal junction visual portion of the stomach. Gastric bowel obstruction cannot be excluded. NG tube was placed and 2.5L of dark output was obtained. Cardiology service is consulted for tachycardia and elevated troponin. Upon examination patient was found to be alert and oriented but remained hypotensive with blood pressure in the 60s patient currently getting second liter bolus continue fluids at 120 critical care service is consulted. Patient has been moved higher level of care. Surgical services also consulted for possible obstruction. Computed tomography scan with contrast ordered. On 06/06/2021 patient was seen and examined in the ICU she is alert and responsive in no apparent distress, per her nurse patient is upset and wants her NG tube out and wants to be able to eat at this time. It was explained to her that she has a bowel obstruction and surgery are following. She is still complaining of some abdominal discomfort otherwise no complaints at this time, her temperature is 100.5 pulse 118 respiration 21 blood pressure 158/43 pulse ox 95% on room air laboratory data reveals a white blood count of 24.5 hemoglobin 7.5 platelet count 198 BUN 41 creatinine 1.31 AST 1284 ALT 1525 which is lower than yesterday. At this time patient remains in ICU she is followed by pulmonary critical care, infectious disease, Gen. surgery, and orthopedic s jayleen, she was started on IV Zosyn yesterday, prognosis is guarded will follow closely On 06/07/2021 patient maintained in the intensive care unit. Patient is alert and oriented 3. Hemoglobin today is 31 unit of PRBCs have been ordered. Patient's upset that she has NG tube. Per nursing staff NG tube was pulled out last night and was replaced immediately put out 650. NG output appears green. Liver enzymes are trending down. Patient is in sinus rhythm. Patient remains on IV Zosyn. White blood cell 10.3. At this time patient denies chest pain or shortness of breath. Patient denies any nausea vomiting or diarrhea. Patient denies any urinary burning or frequency. On 06/08/2021 patient was seen and examined in the ICU she is alert and oriented 3 in no apparent distress she still has nasogastric tube in place there is no fever or chills no headache or dizziness no chest pain no shortness of breath no cough no nausea or vomiting no abdominal pain no diarrhea and no urinary sym ptoms. Vital examination reveals a temperature of 97.4 pulse 92 respiration 20 blood pressure 113/56 pulse ox 96% on 3 L nasal cannula, laboratory data reveals a white blood count of 10.1 hemoglobin 8.0 platelet count 121 BUN 14 creatinine 0.56 On 06/09/2021 patient was seen and examined on the medical floor she is alert and oriented in no apparent distress, patient is followed closely by surgery and pulmonary critical care, she was transferred out of ICU today, temperature is 97.8 pulse 91 respiration 18 blood pressure 135/52 pulse ox 97% on 2 L nasal cannula white blood count 11.0 hemoglobin 8.0 platelet count 127 BUN 10 creatinine 0.49 patient pulled out accidentally her nasogastric tube today. She had a repeat computed tomography scan of the abdomen and pelvis yesterday that revealed evidence of persistent signs of low grade small bowel obstruction with thickened Jejunal loop. At this time we are awaiting further recommendation from general surgery. Objective - Vital Signs Vital signs: Vital Signs Temp 97.6 F 06/09/21 04:00 Pulse 88 06/09/21 08:00 Resp 14 06/09/21 08:00 BP 121/41 06/09/21 08:00 Pulse Ox 95 06/09/21 08:00 Intake & Output 06/08/21 06/09/21 06/09/21 18:59 06:59 18:59 Intake Total 1511.615 114 6307.671 Output Total 1375 730 Balance 136.672 -630 1666.671 Weight 107 kg Intake: IV 684 880 6228 Piperacillin-Tazobactam 3 200 100 .375 gm In Sodium Chloride 0.9% 100 ml @ 25 mls/hr IVPB Q8HR [facility] Rx# :[id number] Sodium Chloride 0.9% 1, 770 1440 000 ml @ 120 mls/hr IV . Q8H20M [facility] Rx#:[id number] Intake, IV Titration 541.672 226.671 Amount Amiodarone 450 mg In 250 226.671 Dextrose 5% in Water 250 ml @ 0.5 MG/MIN 16.667 mls/hr IV .Q15H [facility] Rx#: [id number] Heparin Sod,Pork in 0.45% 171.672 NaCl 25,000 unit In 0.45 % NaCl 1 250ml.bag @ 800 UNIT/HR 8 mls/hr IV .Q24H [facility] Rx#:[id number] Sodium Chloride 0.9% 1, 120 000 ml @ 120 mls/hr IV . Q8H20M [facility] Rx#:[id number] Output: Gastric Drainage 100 Urine 1075 630 Emesis 300 Other: Voiding Method Indwelling Catheter Indwelling Catheter Indwelling Catheter # Bowel Movements 1 1 - Exam Head normocephalic and atraumatic Neck supple no JVD Lungs clear to auscultation bilaterally no wheezing or crackles Heart regular rate and rhythm S1-S2, no rub or gallop Abdomen is soft nontender nondistended positive bowel sounds no hepatosplenomegaly Extremities no edema Neuro alert and orientated to 3 - Labs CBC & Chem 7: 06/09/21 06:13 06/09/21 06:13 Labs: Abnormal Lab Results - Last 24 Hours (Table) 06/08/21 06/09/21 06/09/21 Range/Units 16:12 06:13 06:13 WBC 11.0 H (3.8-10.6) k/uL RBC 2.50 L (3.80-5.40) m/uL Hgb 8.0 L (11.4-16.0) gm/dL Hct 24.5 L (34.0-46.0) % Plt Count 127 L (150-450) k/uL Neutrophils # 9.9 H (1.3-7.7) k/uL Lymphocytes # 0.7 L (1.0-4.8) k/uL APTT 47.6 H (22.0-30.0) sec Sodium (137-145) mmol/L Chloride (98-107) mmol/L Carbon Dioxide (22-30) mmol/L Creatinine (0.52-1.04) mg/dL POC Glucose (mg/dL) 101 H (75-99) mg/dL Calcium (8.4-10.2) mg/dL 06/09/21 Range/Units 06:13 WBC (3.8-10.6) k/uL RBC (3.80-5.40) m/uL Hgb (11.4-16.0) gm/dL Hct (34.0-46.0) % Plt Count (150-450) k/uL Neutrophils # (1.3-7.7) k/uL Lymphocytes # (1.0-4.8) k/uL APTT (22.0-30.0) sec Sodium 135 L (137-145) mmol/L Chloride 110 H (98-107) mmol/L Carbon Dioxide 20 L (22-30) mmol/L Creatinine 0.49 L (0.52-1.04) mg/dL POC Glucose (mg/dL) (75-99) mg/dL Calcium 7.4 L (8.4-10.2) mg/dL Microbiology - Last 24 Hours (Table) 06/05/21 13:25 Blood Culture - Preliminary Blood No Growth after 72 hours Assessment and Plan Assessment: 1. History of L2 to S1 severe stenosis, L2 to S1 spondylosis. status post L2 to S1 decompression fusion with Dr. Mcdonough. Patient is currently postop day 4 2. History of right lower extremity weakness and right lower extremity radiculopathy and chronic back pain secondary to above 3. History of insulin-dependent diabetes mellitus. Patient maintained on long- acting insulin sliding scale coverage added 4. History of essential hypertension 5. History of hyperlipidemia 6. History of postpolio syndrome 7. History of degenerative disc disease with history of lumbar laminectomy stimulator placement for pain management 8. Hypokalemia. Replace per protocol 9. Diarrhea. Stool for C. diff ordered 10. Elevated troponin. Cardiology services consulted 11. Hypotension likely secondary from possible sepsis 12. Acute GI obstruction. Surgical services consulted NG tube in place 13. Atrial fibrillation with rapid ventricular response. Patient has been started on amiodarone drip cardiology services cardiology services following 14. Possible aspiration pneumonia. Dr. Izquierdo has been consulted patient started on Zosyn Patient remains in the intensive care unit Surgical, cardiology, critical care and infectious disease services following Patient remains with NG tube placement Maintained on IV antibiotics 1 unit of PRBCs ordered for 06/07/2031 Repeat labs ordered
[2021-06-09 20:22] LABS: Glucose,Whole Blood 134 mg/dL (75-99)
--- NOTE | 2021-06-09 21:53 | P.PN ---
Subjective Progress Note Date: 06/08/21 Principal diagnosis: Possible aspiration pneumonia Patient is a 65 year old female electively admitted to the hospital for lower back surgery in this patient subsequently developing nausea vomiting increasing shortness of breath concerning for ileus and possible aspiration pneumonitis. On today's evaluation that is 06/08/2021 the patient continues to be afebrile, the patient is breathing slightly comfortably on nasal cannula oxygen, the patient denies having any chest pain, the patient did have a cough nonproductive of sputum abdominal pain no further vomiting and no diarrhea Objective - Vital Signs Vital signs: Vital Signs Temp 97.6 F 06/08/21 08:00 Pulse 89 06/08/21 10:00 Resp 17 06/08/21 10:00 BP 92/47 06/08/21 10:00 Pulse Ox 98 06/08/21 10:00 Intake & Output 06/07/21 06/08/21 06/08/21 18:59 06:59 18:59 Intake Total 2438.894 1871.867 390 Output Total 1690 1875 400 Balance 748.894 -3.133 -10 Weight 102.2 kg Intake: IV 270 Piperacillin-Tazobactam 3 100 .375 gm In Sodium Chloride 0.9% 100 ml @ 25 mls/hr IVPB Q8HR [facility] Rx# :[id number] Sodium Chloride 0.9% 1, 170 000 ml @ 120 mls/hr IV . Q8H20M [facility] Rx#:[id number] Intake, IV Titration 7660.863 0914.867 120 Amount Amiodarone 450 mg In 248.894 250 Dextrose 5% in Water 250 ml @ 0.5 MG/MIN 16.667 mls/hr IV .Q15H [facility] Rx#: [id number] Heparin Sod,Pork in 0.45% 51.867 NaCl 25,000 unit In 0.45 % NaCl 1 250ml.bag @ 800 UNIT/HR 8 mls/hr IV .Q24H [facility] Rx#:[id number] Piperacillin-Tazobactam 3 150 50 .375 gm In Sodium Chloride 0.9% 100 ml @ 25 mls/hr IVPB Q8HR [facility] Rx# :[id number] Potassium Chloride 20 meq 200 In Water For Injection 1 100ml.bag @ 50 mls/hr IVPB Q2H [facility] Rx#: [id number] Potassium Chloride 20 meq 100 100 In Water For Injection 1 100ml.bag @ 50 mls/hr IVPB Q2H [facility] Rx#: [id number] Sodium Chloride 0.9% 1, 760 1320 120 000 ml @ 120 mls/hr IV . Q8H20M [facility] Rx#:[id number] Oral 300 100 Blood Product 620 Rc As-1 Unit 310 [id number] Other 60 Rc As-1 Unit 60 [id number] Output: Gastric Drainage 750 850 Drainage 30 Right Lower Back 30 Urine 910 1025 400 Other: Voiding Method Indwelling Catheter Indwelling Catheter - Exam GENERAL DESCRIPTION: An elderly female lying in bed in no distress RESPIRATORY SYSTEM: Unlabored breathing , decreased breath sounds at bases HEART: S1 S2 regular rate and rhythm , ABDOMEN: Soft , no tenderness EXTREMITIES: No edema feet - Labs CBC & Chem 7: 06/09/21 06:13 06/09/21 06:13 Labs: Abnormal Lab Results - Last 24 Hours (Table) 06/07/21 06/07/21 06/07/21 Range/Units 08:00 13:24 14:55 RBC 2.43 L (3.80-5.40) m/uL Hgb 7.6 L (11.4-16.0) gm/dL Hct 23.0 L (34.0-46.0) % Plt Count 124 L (150-450) k/uL Neutrophils # 9.6 H (1.3-7.7) k/uL Lymphocytes # 0.6 L (1.0-4.8) k/uL APTT (22.0-30.0) sec Chloride (98-107) mmol/L Carbon Dioxide (22-30) mmol/L POC Glucose (mg/dL) 117 H (75-99) mg/dL Calcium (8.4-10.2) mg/dL AST (14-36) U/L ALT (4-34) U/L Total Protein (6.3-8.2) g/dL Albumin (3.5-5.0) g/dL Crossmatch See Detail 06/07/21 06/07/21 06/07/21 Range/Units 14:55 17:52 20:08 RBC (3.80-5.40) m/uL Hgb (11.4-16.0) gm/dL Hct (34.0-46.0) % Plt Count (150-450) k/uL Neutrophils # (1.3-7.7) k/uL Lymphocytes # (1.0-4.8) k/uL APTT 30.2 H 42.5 H (22.0-30.0) sec Chloride (98-107) mmol/L Carbon Dioxide (22-30) mmol/L POC Glucose (mg/dL) 102 H (75-99) mg/dL Calcium (8.4-10.2) mg/dL AST (14-36) U/L ALT (4-34) U/L Total Protein (6.3-8.2) g/dL Albumin (3.5-5.0) g/dL Crossmatch 06/07/21 06/08/21 06/08/21 Range/Units 20:41 05:43 05:43 RBC 2.63 L (3.80-5.40) m/uL Hgb 8.0 L (11.4-16.0) gm/dL Hct 25.6 L (34.0-46.0) % Plt Count 121 L (150-450) k/uL Neutrophils # 9.2 H (1.3-7.7) k/uL Lymphocytes # 0.5 L (1.0-4.8) k/uL APTT (22.0-30.0) sec Chloride 114 H (98-107) mmol/L Carbon Dioxide 21 L (22-30) mmol/L POC Glucose (mg/dL) 101 H (75-99) mg/dL Calcium 7.4 L (8.4-10.2) mg/dL AST 89 H (14-36) U/L ALT 536 H (4-34) U/L Total Protein 4.3 L (6.3-8.2) g/dL Albumin 1.9 L (3.5-5.0) g/dL Crossmatch 06/08/21 06/08/21 Range/Units 05:43 07:08 RBC (3.80-5.40) m/uL Hgb (11.4-16.0) gm/dL Hct (34.0-46.0) % Plt Count (150-450) k/uL Neutrophils # (1.3-7.7) k/uL Lymphocytes # (1.0-4.8) k/uL APTT 44.5 H (22.0-30.0) sec Chloride (98-107) mmol/L Carbon Dioxide (22-30) mmol/L POC Glucose (mg/dL) 101 H (75-99) mg/dL Calcium (8.4-10.2) mg/dL AST (14-36) U/L ALT (4-34) U/L Total Protein (6.3-8.2) g/dL Albumin (3.5-5.0) g/dL Crossmatch Microbiology - Last 24 Hours (Table) 06/05/21 13:25 Blood Culture - Preliminary Blood No Growth after 48 hours 06/05/21 16:59 Urine Culture - Final Urine,Catheterized Assessment and Plan (1) Aspiration pneumonia Current Visit: Yes Status: Acute Code(s): J69.0 - PNEUMONITIS DUE TO INHALATION OF FOOD AND VOMIT SNOMED Code(s): 261243216 Plan: Patient with a low-grade fever of 100.5F, the patient did have elevated white count and tachycardia with concerning for ileus and possible aspiration pneumonia, sputum culture were requested not collected, patient has clinically responding to the Zosyn which will be continued, we will try to obtain sputum to narrow down antibiotics and continue supportive care Time with Patient: Less than 30
--- NOTE | 2021-06-09 21:55 | P.PN ---
Subjective Progress Note Date: 06/09/21 Principal diagnosis: Possible aspiration pneumonia Patient is a 65 year old female electively admitted to the hospital for lower back surgery in this patient subsequently developing nausea vomiting increasing shortness of breath concerning for ileus and possible aspiration pneumonitis. On today's evaluation that is 06/09/2021 the patient is afebrile, the patient is breathing comfortably on 2 L nasal cannula oxygen, the patient denies having any chest pain, the patient did have a cough nonproductive of sputum, the patient denies abdominal pain no further vomiting NG tube did fell off fell off Objective - Vital Signs Vital signs: Vital Signs Temp 97.8 F 06/09/21 17:00 Pulse 91 06/09/21 17:00 Resp 18 06/09/21 17:00 BP 168/71 06/09/21 17:00 Pulse Ox 91 L 06/09/21 17:00 Intake & Output 06/09/21 06/09/21 06/10/21 06:59 18:59 06:59 Intake Total 100 2696.671 Output Total 730 Balance -630 2696.671 Weight 107 kg Intake: IV 100 1440 Piperacillin-Tazobactam 3 100 .375 gm In Sodium Chloride 0.9% 100 ml @ 25 mls/hr IVPB Q8HR [facility] Rx# :[id number] Sodium Chloride 0.9% 1, 1440 000 ml @ 120 mls/hr IV . Q8H20M [facility] Rx#:[id number] Intake, IV Titration 476.671 Amount Amiodarone 450 mg In 226.671 Dextrose 5% in Water 250 ml @ 0.5 MG/MIN 16.667 mls/hr IV .Q15H [facility] Rx#: [id number] Heparin Sod,Pork in 0.45% 250 NaCl 25,000 unit In 0.45 % NaCl 1 250ml.bag @ 800 UNIT/HR 8 mls/hr IV .Q24H [facility] Rx#:[id number] Oral 780 Output: Gastric Drainage 100 Urine 630 Other: Voiding Method Indwelling Catheter Indwelling Catheter # Bowel Movements 1 1 - Exam GENERAL DESCRIPTION: An elderly female lying in bed in no distress RESPIRATORY SYSTEM: Unlabored breathing , decreased breath sounds at bases HEART: S1 S2 regular rate and rhythm , ABDOMEN: Soft , no tenderness EXTREMITIES: No edema feet - Labs CBC & Chem 7: 06/09/21 06:13 06/09/21 06:13 Labs: Abnormal Lab Results - Last 24 Hours (Table) 06/09/21 06/09/21 06/09/21 Range/Units 06:13 06:13 06:13 WBC 11.0 H (3.8-10.6) k/uL RBC 2.50 L (3.80-5.40) m/uL Hgb 8.0 L (11.4-16.0) gm/dL Hct 24.5 L (34.0-46.0) % Plt Count 127 L (150-450) k/uL Neutrophils # 9.9 H (1.3-7.7) k/uL Lymphocytes # 0.7 L (1.0-4.8) k/uL APTT 47.6 H (22.0-30.0) sec Sodium 135 L (137-145) mmol/L Chloride 110 H (98-107) mmol/L Carbon Dioxide 20 L (22-30) mmol/L Creatinine 0.49 L (0.52-1.04) mg/dL POC Glucose (mg/dL) (75-99) mg/dL Calcium 7.4 L (8.4-10.2) mg/dL 06/09/21 06/09/21 Range/Units 16:39 20:16 WBC (3.8-10.6) k/uL RBC (3.80-5.40) m/uL Hgb (11.4-16.0) gm/dL Hct (34.0-46.0) % Plt Count (150-450) k/uL Neutrophils # (1.3-7.7) k/uL Lymphocytes # (1.0-4.8) k/uL APTT (22.0-30.0) sec Sodium (137-145) mmol/L Chloride (98-107) mmol/L Carbon Dioxide (22-30) mmol/L Creatinine (0.52-1.04) mg/dL POC Glucose (mg/dL) 112 H 134 H (75-99) mg/dL Calcium (8.4-10.2) mg/dL Microbiology - Last 24 Hours (Table) 06/05/21 13:25 Blood Culture - Preliminary Blood No Growth after 96 hours Assessment and Plan (1) Aspiration pneumonia Current Visit: Yes Status: Acute Code(s): J69.0 - PNEUMONITIS DUE TO INHALATION OF FOOD AND VOMIT SNOMED Code(s): 910159293 Plan: Patient with a low-grade fever of 100.5F, the patient did have elevated white count and tachycardia with concerning for ileus and possible aspiration pneumonia, sputum culture were requested not collected, patient has clinically responding to the Zosyn which will be continued, hopefully transition to oral antibiotics once oral intakes improves Time with Patient: Less than 30
[2021-06-10] MEDS: AMIODARONE 450 MG in DEXTROSE 5% IN WATER 250 ML IV SCH ×2 (00:32)
[2021-06-10] MEDS: NYSTATIN 100,000 UNIT/GM OINT 30 GM TUBE TOPICAL SCH ×3 (00:32→22:11)
[2021-06-10] MEDS: PIPERACILLIN-TAZOBACTAM 3.375 GM in SODIUM CHLORIDE 0.9% 100 ML IVPB SCH ×3 (00:33→18:02)
[2021-06-10] MEDS: SODIUM CHLORIDE 0.9% 1,000 ML IV SCH ×3 (00:33→12:46)
[2021-06-10] MEDS: HYDROmorphone 1 MG/ML 1 ML SYRINGE IVP PRN ×2 (01:10→08:51)
[2021-06-10 06:13] LABS: Glucose,Whole Blood 147 mg/dL (75-99)
[2021-06-10] MEDS: INSULIN ASPART (NovoLOG) 100 UNIT/ML VIAL SQ SCH ×4 (07:40→22:08)
[2021-06-10] MEDS: PANTOPRAZOLE 40 MG/10 ML VIAL IVP SCH (08:44)
--- NOTE | 2021-06-10 09:36 | CDI ---
Documentation Clarification Form Date: 06/10/2021 08:50:00 AM From: Radha Wilson RN, CCDS Admit Date: 06/04/2021 11:00:00 AM Patient Name: Shelby Robison Visit Number: [id number] Discharge Date: ATTENTION: The Clinical Documentation Specialists (CDI) and [facility] Coding Staff appreciate your assistance in clarifying documentation. Please respond to the clarification below the line at the bottom and electronically sign. The CDI & [facility] Coding staff will review the response and follow-up if needed. Please note: Queries are made part of the Legal Health Record. If you have any questions, please contact the author of this message via ITS. Dr. Meron Escobar Atrial Fibrillation is documented in the past medical history, consult and progress notes on 06/08/21. Additional clarification regarding the type of atrial fibrillation is requested. 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 Past medical history has atrial fibrillation. 06/07 cardiology progress notes: Patient went into atrial fibrillation today with rapid ventricular response. 06/07 Vital signs 108/48 92 16 98.0 06/07 HGB 6.3, HCT 19.4 PLT 117 06/08 Cardiology progress note: went into atrial fibrillation. She is in a sinus rhythm on a small dose of Amiodarone at 0.5 mg IV; cannot take p.o. meds as this time. 06/04 EKG/telemetry: wide QRS rhythm right bundle branch block vent rate 107 Treatment: ICU/Telemetry monitoring Amiodarone IV Drip at 0.5MG per orders Heparin IV Drip 800 units/hr. 06/07-06/09 Levophed IV Drip per orders Please clarify the type of atrial fibrillation, if known: [ ] Chronic [ ] Permanent [ ] Paroxysmal [ ] Persistent [ ] Other, please specify [ ] Unable to determine (Template Last Revised: August 2020) Paroxysmal MTDD
--- NOTE | 2021-06-10 10:18 | P.PN ---
Subjective Progress Note Date: 06/09/21 Patient NGT out, passing gas and having BM. No abdominal pain Objective - Vital Signs Vital signs: Vital Signs Temp 97.6 F 06/09/21 04:00 Pulse 81 06/09/21 12:00 Resp 22 06/09/21 12:00 BP 135/52 06/09/21 12:00 Pulse Ox 97 06/09/21 12:00 Intake & Output 06/08/21 06/09/21 06/09/21 18:59 06:59 18:59 Intake Total 1511.467 637 9457.671 Output Total 1375 730 Balance 136.672 -630 1666.671 Weight 107 kg Intake: IV 491 971 3761 Piperacillin-Tazobactam 3 200 100 .375 gm In Sodium Chloride 0.9% 100 ml @ 25 mls/hr IVPB Q8HR [facility] Rx# :[id number] Sodium Chloride 0.9% 1, 770 1440 000 ml @ 120 mls/hr IV . Q8H20M [facility] Rx#:[id number] Intake, IV Titration 541.672 226.671 Amount Amiodarone 450 mg In 250 226.671 Dextrose 5% in Water 250 ml @ 0.5 MG/MIN 16.667 mls/hr IV .Q15H [facility] Rx#: [id number] Heparin Sod,Pork in 0.45% 171.672 NaCl 25,000 unit In 0.45 % NaCl 1 250ml.bag @ 800 UNIT/HR 8 mls/hr IV .Q24H [facility] Rx#:[id number] Sodium Chloride 0.9% 1, 120 000 ml @ 120 mls/hr IV . Q8H20M [facility] Rx#:[id number] Output: Gastric Drainage 100 Urine 1075 630 Emesis 300 Other: Voiding Method Indwelling Catheter Indwelling Catheter Indwelling Catheter # Bowel Movements 1 1 - Constitutional General appearance: Present: cooperative - Cardiovascular Rhythm: regular - Gastrointestinal Gastrointestinal Comment(s): S/ND/NT - Labs CBC & Chem 7: 06/09/21 06:13 06/09/21 06:13 Labs: Abnormal Lab Results - Last 24 Hours (Table) 06/08/21 06/09/21 06/09/21 Range/Units 16:12 06:13 06:13 WBC 11.0 H (3.8-10.6) k/uL RBC 2.50 L (3.80-5.40) m/uL Hgb 8.0 L (11.4-16.0) gm/dL Hct 24.5 L (34.0-46.0) % Plt Count 127 L (150-450) k/uL Neutrophils # 9.9 H (1.3-7.7) k/uL Lymphocytes # 0.7 L (1.0-4.8) k/uL APTT 47.6 H (22.0-30.0) sec Sodium (137-145) mmol/L Chloride (98-107) mmol/L Carbon Dioxide (22-30) mmol/L Creatinine (0.52-1.04) mg/dL POC Glucose (mg/dL) 101 H (75-99) mg/dL Calcium (8.4-10.2) mg/dL 06/09/21 Range/Units 06:13 WBC (3.8-10.6) k/uL RBC (3.80-5.40) m/uL Hgb (11.4-16.0) gm/dL Hct (34.0-46.0) % Plt Count (150-450) k/uL Neutrophils # (1.3-7.7) k/uL Lymphocytes # (1.0-4.8) k/uL APTT (22.0-30.0) sec Sodium 135 L (137-145) mmol/L Chloride 110 H (98-107) mmol/L Carbon Dioxide 20 L (22-30) mmol/L Creatinine 0.49 L (0.52-1.04) mg/dL POC Glucose (mg/dL) (75-99) mg/dL Calcium 7.4 L (8.4-10.2) mg/dL Microbiology - Last 24 Hours (Table) 06/05/21 13:25 Blood Culture - Preliminary Blood No Growth after 96 hours Assessment and Plan Assessment: Ileus S/P lumbar fusion Plan: Ileus appears to be resolving, clears as tolerated. No plans for general surgical intervention at this time
--- NOTE | 2021-06-10 10:28 | CDI ---
Documentation Clarification Form Date: 06/10/2021 10:23:59 AM From: Radha Wilson RN, CCDS Admit Date: 06/04/2021 11:00:00 AM Patient Name: Shelby Robison Visit Number: [id number] Discharge Date: ATTENTION: The Clinical Documentation Specialists (CDI) and [facility] Coding Staff appreciate your assistance in clarifying documentation. Please respond to the clarification below the line at the bottom and electronically sign. The CDI & [facility] Coding staff will review the response and follow-up if needed. Please note: Queries are made part of the Legal Health Record. If you have any questions, please contact the author of this message via ITS. Dr. Shay Avila Your patient has documentation of dyspnea, hypoxemia and acute respiratory distress in the progress notes on 06/05/21. Based on this information and the findings below, is there an additional diagnosis that is clinically appropriate for this patient? 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 On 06/05 the patient had a low blood pressure and low saturations. She was moved to ICU and was on a partial rebreather mask. 06/05 vital signs: (07:00) 74/52 122 81 % 2/L NC 06/05 Vital signs: (08:00) 77/46 150 30 80 % Non-rebreather FIow rate 15, (09:08) 62/46 104 24 92 % Non-rebreather Flow rate 15 06/05 Lung/Breathing assessment: Mostly clear breath sounds. Mild scattered rhonchi. No wheezes or crackles. 06/05 WBC 24.3 HGB 9.3, HCT 27.8, BUN 38, Creatinine 1.51 2. WBC 24.5 HGB 7.5, HCT 23.1, BUN 41, Creatinine 1.31 06/05 ABG/CBG: pH 7.40 pO2 152 pCO2 20 HCO3 13, Total CO2 13 FIO2 100 Treatment: ICU/Telemetry monitoring Monitor O2 Sat's (Titrate) Levophed 8 mg in 250ml/bag Drop per orders (06/05 -06/06) .9NS IV Bolus x2 then 120 MLS/HR 06/05-06/10 Continuous Pulse ox Is there an additional diagnosis that is clinically appropriate for this patient? [ ] Acute Hypoxic Respiratory Failure (pO2 <60 mm Hg or SpO2 <91% on room air) [ ] Acute Hypercapnic Respiratory Failure (pCO2 >50 and pH <7.35) [ ] Acute on Chronic Respiratory Failure [ ] Chronic Respiratory Failure [ ] Acute Respiratory Distress only [ ] Other Diagnosis, please specify [ ] Unable to determine (Template Last Revised: June 2020) MTDD
--- NOTE | 2021-06-10 10:43 | XR ---
EXAMINATION TYPE: XR chest 1V portable DATE OF EXAM: 06/10/2021 COMPARISON: 06/08/2021 INDICATION: New oxygen demand, short of breath TECHNIQUE: Single frontal view of the chest is obtained. FINDINGS: The heart size is upper limits of normal. The pulmonary vasculature is normal. No suspicious focal consolidation is evident. Improving left costophrenic angle infiltrate may be pre sent. Sternotomy wires are present. Left central venous catheter tip is within the distal superior vena cav a region. Stimulator leads are in the thoracic region. IMPRESSION: 1. Mild improving left costophrenic angle infiltrate. Correlate for atelectasis.
[2021-06-10 11:23] LABS: ALT 185 U/L (4-34); AST 39 U/L (14-36); African American GFR (CKD) >90 (>60 ml/min/1.73 sqM); Alkaline Phosphatase 78 U/L (38-126); Anion Gap 4 mmol/L; Blood Urea Nitrogen 6 mg/dL (7-17); Calcium 7.2 mg/dL (8.4-10.2); Carbon Dioxide 22 mmol/L (22-30); Chloride 105 mmol/L (98-107); Glucose 125 mg/dL (74-99); Non-African American GFR(CKD) >90 (>60 ml/min/1.73 sqM); Potassium 3.3 mmol/L (3.5-5.1); Sodium 131 mmol/L (137-145); Total Bilirubin 0.9 mg/dL (0.2-1.3); Total Protein 4.3 g/dL (6.3-8.2)
[2021-06-10 11:32] VITALS: BMI 38.0
[2021-06-10 11:55] LABS: Glucose,Whole Blood 124 mg/dL (75-99)
[2021-06-10] MEDS: APIXABAN 2.5 MG TABLET PO SCH ×2 (12:11→20:40)
[2021-06-10] MEDS: AMIODARONE 200 MG TAB PO SCH ×2 (12:11→20:40)
[2021-06-10] MEDS: METOPROLOL TARTRATE 50 MG TAB PO SCH ×2 (12:11→20:40)
--- NOTE | 2021-06-10 12:29 | P.PN ---
Subjective Progress Note Date: 06/10/21 This is a 65-year-old female patient of Dr. Leblanc who presented for an elective L2 to S1 decompression fusion. Patient has a long-standing history of chronic back pain and was found to have L2 to S1 severe stenosis L2 to S1 spondylosis resulting in left lower extremity weakness low back pain and radiculopathy. Patient has failed outpatient conservative management and pain control. She has past medical history of degenerative disc disease with history of lumbar laminectomy and stimulator placement for pain management. Additional medical history includes insulin-dependent diabetes mellitus, hypertension, hyperlipidemia and post polio syndrome. Patient is currently postop day 1. Patient is resting comfortably in bed. Patient reports improvement with lower extremity weakness and pain but does report she's been having issues with diarrhea since [facility] facility. At this time will order C. diff sample. Patient also has low potassium of 3.2 ordered replacement protocol. Patient also placed on sliding scale insulin coverage along with her home dose of long-acting insulin. At this time patient denies chest pain or shortness of breath. Patient denies nausea vomiting or diarrhea. Patient denies any urinary burning or frequency On 06/04/2021 patient was seen and examined on the medical floor she is alert and oriented 3 in no apparent distress she had episodes of nausea and vomiting during last night and is receiving Zofran and Compazine as needed she is also complaining of pain in the lower back otherwise she denies any complaints there is no fever or chills no headache or dizziness no chest pain no shortness of breath no cough no abdominal pain no diarrhea and no urinary symptoms On 06/05/2021 patient was and A-team this morning due to lethargy and tachycardia. Patient was also found to be hypotensive. CTA was performed at that time showing no signs of PE but marked dilated esophagus gastroesophageal junction visual portion of the stomach. Gastric bowel obstruction cannot be excluded. NG tube was placed and 2.5L of dark output was obtained. Cardiology service is consulted for tachycardia and elevated troponin. Upon examination patient was found to be alert and oriented but remained hypotensive with blood pressure in the 60s patient currently getting second liter bolus continue fluids at 120 critical care service is consulted. Patient has been moved higher level of care. Surgical services also consulted for possible obstruction. Computed tomography scan with contrast ordered. On 06/06/2021 patient was seen and examined in the ICU she is alert and responsive in no apparent distress, per her nurse patient is upset and wants her NG tube out and wants to be able to eat at this time. It was explained to her that she has a bowel obstruction and surgery are following. She is still complaining of some abdominal discomfort otherwise no complaints at this time, her temperature is 100.5 pulse 118 respiration 21 blood pressure 158/43 pulse ox 95% on room air laboratory data reveals a white blood count of 24.5 hemoglobin 7.5 platelet count 198 BUN 41 creatinine 1.31 AST 1284 ALT 1525 which is lower than yesterday. At this time patient remains in ICU she is followed by pulmonary critical care, infectious disease, Gen. surgery, and orthopedic s jayleen, she was started on IV Zosyn yesterday, prognosis is guarded will follow closely On 06/07/2021 patient maintained in the intensive care unit. Patient is alert and oriented 3. Hemoglobin today is 31 unit of PRBCs have been ordered. Patient's upset that she has NG tube. Per nursing staff NG tube was pulled out last night and was replaced immediately put out 650. NG output appears green. Liver enzymes are trending down. Patient is in sinus rhythm. Patient remains on IV Zosyn. White blood cell 10.3. At this time patient denies chest pain or shortness of breath. Patient denies any nausea vomiting or diarrhea. Patient denies any urinary burning or frequency. On 06/08/2021 patient was seen and examined in the ICU she is alert and oriented 3 in no apparent distress she still has nasogastric tube in place there is no fever or chills no headache or dizziness no chest pain no shortness of breath no cough no nausea or vomiting no abdominal pain no diarrhea and no urinary sym ptoms. Vital examination reveals a temperature of 97.4 pulse 92 respiration 20 blood pressure 113/56 pulse ox 96% on 3 L nasal cannula, laboratory data reveals a white blood count of 10.1 hemoglobin 8.0 platelet count 121 BUN 14 creatinine 0.56 On 06/09/2021 patient was seen and examined on the medical floor she is alert and oriented in no apparent distress, patient is followed closely by surgery and pulmonary critical care, she was transferred out of ICU today, temperature is 97.8 pulse 91 respiration 18 blood pressure 135/52 pulse ox 97% on 2 L nasal cannula white blood count 11.0 hemoglobin 8.0 platelet count 127 BUN 10 creatinine 0.49 patient pulled out accidentally her nasogastric tube today. She had a repeat computed tomography scan of the abdomen and pelvis yesterday that revealed evidence of persistent signs of low grade small bowel obstruction with thickened Jejunal loop. At this time we are awaiting further recommendation from general surgery. On 06/10/2021 patient is alert and oriented. Patient remains on amiodarone and heparin drip. Surgical services are following. Patient remains on clear liquid diet. Temp is 98.1, heart rate 96, respiratory rate 20, blood pressure 150/71 SpO2 90% on 4 L. Patient reports some physical improvement. Patient denies chest pain. Patient denies shortness of breath. Patient denies burning or frequency Objective - Vital Signs Vital signs: Vital Signs Temp 98.1 F 06/10/21 12:00 Pulse 96 06/10/21 12:00 Resp 20 06/10/21 12:00 BP 150/71 06/10/21 12:00 Pulse Ox 98 06/10/21 12:00 Intake & Output 06/09/21 06/10/21 06/10/21 18:59 06:59 18:59 Intake Total 2696.671 970 Output Total 400 Balance 2696.671 570 Weight 107 kg Intake: IV 1440 600 Sodium Chloride 0.9% 1, 1440 600 000 ml @ 120 mls/hr IV . Q8H20M [facility] Rx#:[id number] Intake, IV Titration 476.671 250 Amount Amiodarone 450 mg In 226.671 250 Dextrose 5% in Water 250 ml @ 0.5 MG/MIN 16.667 mls/hr IV .Q15H [facility] Rx#: [id number] Heparin Sod,Pork in 0.45% 250 NaCl 25,000 unit In 0.45 % NaCl 1 250ml.bag @ 800 UNIT/HR 8 mls/hr IV .Q24H [facility] Rx#:[id number] Oral 780 120 Output: Urine 400 Other: Voiding Method Indwelling Catheter Indwelling Catheter Indwelling Catheter # Bowel Movements 1 - Exam Head normocephalic and atraumatic Neck supple no JVD Lungs clear to auscultation bilaterally no wheezing or crackles Heart regular rate and rhythm S1-S2, no rub or gallop Abdomen is soft nontender nondistended positive bowel sounds no hepatosplenomegaly Extremities no edema Neuro alert and orientated to 3 - Labs CBC & Chem 7: 06/09/21 06:13 06/10/21 10:41 Labs: Abnormal Lab Results - Last 24 Hours (Table) 06/09/21 06/09/21 06/09/21 Range/Units 16:39 20:16 22:39 APTT (22.0-30.0) sec Sodium (137-145) mmol/L Potassium 3.2 L (3.5-5.1) mmol/L BUN (7-17) mg/dL Creatinine (0.52-1.04) mg/dL Glucose (74-99) mg/dL POC Glucose (mg/dL) 112 H 134 H (75-99) mg/dL Calcium (8.4-10.2) mg/dL AST (14-36) U/L ALT (4-34) U/L Total Protein (6.3-8.2) g/dL Albumin (3.5-5.0) g/dL 06/10/21 06/10/21 06/10/21 Range/Units 06:11 06:48 10:41 APTT 68.6 H (22.0-30.0) sec Sodium 131 L (137-145) mmol/L Potassium 3.3 L (3.5-5.1) mmol/L BUN 6 L (7-17) mg/dL Creatinine 0.45 L (0.52-1.04) mg/dL Glucose 125 H (74-99) mg/dL POC Glucose (mg/dL) 147 H (75-99) mg/dL Calcium 7.2 L (8.4-10.2) mg/dL AST 39 H (14-36) U/L ALT 185 H (4-34) U/L Total Protein 4.3 L (6.3-8.2) g/dL Albumin 2.0 L (3.5-5.0) g/dL 06/10/21 Range/Units 11:53 APTT (22.0-30.0) sec Sodium (137-145) mmol/L Potassium (3.5-5.1) mmol/L BUN (7-17) mg/dL Creatinine (0.52-1.04) mg/dL Glucose (74-99) mg/dL POC Glucose (mg/dL) 124 H (75-99) mg/dL Calcium (8.4-10.2) mg/dL AST (14-36) U/L ALT (4-34) U/L Total Protein (6.3-8.2) g/dL Albumin (3.5-5.0) g/dL Microbiology - Last 24 Hours (Table) 06/05/21 13:25 Blood Culture - Preliminary Blood No Growth after 96 hours Assessment and Plan Assessment: 1. History of L2 to S1 severe stenosis, L2 to S1 spondylosis. status post L2 to S1 decompression fusion with Dr. Mcdonough. Patient is currently postop day 4 2. History of right lower extremity weakness and right lower extremity radicul opathy and chronic back pain secondary to above 3. History of insulin-dependent diabetes mellitus. Patient maintained on long- acting insulin sliding scale coverage added 4. History of essential hypertension 5. History of hyperlipidemia 6. History of postpolio syndrome 7. History of degenerative disc disease with history of lumbar laminectomy stimulator placement for pain management 8. Hypokalemia. Replace per protocol 9. Diarrhea. Stool for C. diff ordered 10. Elevated troponin. Cardiology services consulted 11. Hypotension likely secondary from possible sepsis 12. Acute GI obstruction. Surgical services consulted NG tube in place 13. Atrial fibrillation with rapid ventricular response. Patient has been started on amiodarone drip cardiology services cardiology services following 14. Possible aspiration pneumonia. Dr. Izquierdo has been consulted patient start ed on Zosyn Patient has been transferred out of the intensive care unit Patient has been started on eliquis for anticoagulation per cardiology services Surgical, cardiology, critical care and infectious disease services following Maintained on IV antibiotics 1 unit of PRBCs ordered for 06/07/2031 Repeat labs ordered
--- NOTE | 2021-06-10 12:47 | P.PN ---
Subjective Progress Note Date: 06/10/21 HISTORY OF PRESENT ILLNESS: Patient examined this morning at the bedside. Patient's NG tube has been discontinued and she is on a clear liquid diet. She denies nausea or vomiting. Telemetry reveals sinus mechanism with a heart rate in the 90s. She is currently on IV heparin and IV amiodarone. She denies chest pain or pressure. She denies shortness of breath. PHYSICAL EXAM: VITAL SIGNS: Reviewed. GENERAL: Well-developed in no acute distress. NECK: Supple. No JVD or thyromegaly LUNGS: Respirations even and unlabored. Lungs essentially clear to auscultation bilaterally. HEART: Regular rate and rhythm. S1 and S2 heard. EXTREMITIES: Normal range of motion. No clubbing or cyanosis. Peripheral pulses intact. No lower extremity edema ASSESSMENT: L2-S1 severe stenosis, s/p decompression and fusion New onset paroxysmal A. fib with RVR, currently maintaining sinus mechanism Small bowel obstruction Coronary artery disease with previous CABG Hypertension Hyperlipidemia Diabetes PLAN: Discontinue IV heparin Discontinue IV amiodarone Begin Eliquis 2.5 mg twice a day per Dr. Escobar Begin oral amio 200mg BID Begin metoprolol 50mg BID Continue telemetry monitoring No further patient recommendations from a cardiac standpoint We will sign off. Please reconsult if needed Nurse practitioner note has been reviewed by physician. Signing provider agrees with the documented findings, assessment, and plan of care. Objective - Vital Signs Vital signs: Vital Signs Temp 98.1 F 06/10/21 12:00 Pulse 96 06/10/21 12:31 Resp 20 06/10/21 12:31 BP 150/71 06/10/21 12:00 Pulse Ox 98 06/10/21 12:00 Intake & Output 06/09/21 06/10/21 06/10/21 18:59 06:59 18:59 Intake Total 2696.671 970 Output Total 400 Balance 2696.671 570 Weight 107 kg Intake: IV 1440 600 Sodium Chloride 0.9% 1, 1440 600 000 ml @ 120 mls/hr IV . Q8H20M [facility] Rx#:[id number] Intake, IV Titration 476.671 250 Amount Amiodarone 450 mg In 226.671 250 Dextrose 5% in Water 250 ml @ 0.5 MG/MIN 16.667 mls/hr IV .Q15H [facility] Rx#: [id number] Heparin Sod,Pork in 0.45% 250 NaCl 25,000 unit In 0.45 % NaCl 1 250ml.bag @ 800 UNIT/HR 8 mls/hr IV .Q24H [facility] Rx#:[id number] Oral 780 120 Output: Urine 400 Other: Voiding Method Indwelling Catheter Indwelling Catheter Indwelling Catheter # Bowel Movements 1 - Labs CBC & Chem 7: 06/09/21 06:13 06/10/21 10:41 Labs: Abnormal Lab Results - Last 24 Hours (Table) 06/09/21 06/09/21 06/09/21 Range/Units 16:39 20:16 22:39 APTT (22.0-30.0) sec Sodium (137-145) mmol/L Potassium 3.2 L (3.5-5.1) mmol/L BUN (7-17) mg/dL Creatinine (0.52-1.04) mg/dL Glucose (74-99) mg/dL POC Glucose (mg/dL) 112 H 134 H (75-99) mg/dL Calcium (8.4-10.2) mg/dL AST (14-36) U/L ALT (4-34) U/L Total Protein (6.3-8.2) g/dL Albumin (3.5-5.0) g/dL 06/10/21 06/10/21 06/10/21 Range/Units 06:11 06:48 10:41 APTT 68.6 H (22.0-30.0) sec Sodium 131 L (137-145) mmol/L Potassium 3.3 L (3.5-5.1) mmol/L BUN 6 L (7-17) mg/dL Creatinine 0.45 L (0.52-1.04) mg/dL Glucose 125 H (74-99) mg/dL POC Glucose (mg/dL) 147 H (75-99) mg/dL Calcium 7.2 L (8.4-10.2) mg/dL AST 39 H (14-36) U/L ALT 185 H (4-34) U/L Total Protein 4.3 L (6.3-8.2) g/dL Albumin 2.0 L (3.5-5.0) g/dL 06/10/21 Range/Units 11:53 APTT (22.0-30.0) sec Sodium (137-145) mmol/L Potassium (3.5-5.1) mmol/L BUN (7-17) mg/dL Creatinine (0.52-1.04) mg/dL Glucose (74-99) mg/dL POC Glucose (mg/dL) 124 H (75-99) mg/dL Calcium (8.4-10.2) mg/dL AST (14-36) U/L ALT (4-34) U/L Total Protein (6.3-8.2) g/dL Albumin (3.5-5.0) g/dL Microbiology - Last 24 Hours (Table) 06/05/21 13:25 Blood Culture - Preliminary Blood No Growth after 96 hours
--- NOTE | 2021-06-10 13:24 | P.PN ---
Subjective Progress Note Date: 06/10/21 Principal diagnosis: L2 to S1 spondylosis with stenosis L4-L5 grade 1 spondylolisthesis Pt s/e. She was transferred off the ICU to 3 step down. She is doing well and able to eat now. She states no back pain. States she is having BM and passing gas. She has not been up today but was up yesterday. Objective - Vital Signs Vital signs: Vital Signs Temp 98.1 F 06/10/21 12:00 Pulse 96 06/10/21 12:31 Resp 20 06/10/21 12:31 BP 150/71 06/10/21 12:00 Pulse Ox 98 06/10/21 12:00 Intake & Output 06/09/21 06/10/21 06/10/21 18:59 06:59 18:59 Intake Total 2696.671 970 Output Total 400 400 Balance 2696.671 570 -400 Weight 107 kg Intake: IV 1440 600 Sodium Chloride 0.9% 1, 1440 600 000 ml @ 120 mls/hr IV . Q8H20M [facility] Rx#:[id number] Intake, IV Titration 476.671 250 Amount Amiodarone 450 mg In 226.671 250 Dextrose 5% in Water 250 ml @ 0.5 MG/MIN 16.667 mls/hr IV .Q15H [facility] Rx#: [id number] Heparin Sod,Pork in 0.45% 250 NaCl 25,000 unit In 0.45 % NaCl 1 250ml.bag @ 800 UNIT/HR 8 mls/hr IV .Q24H [facility] Rx#:[id number] Oral 780 120 Output: Urine 400 400 Other: Voiding Method Indwelling Catheter Indwelling Catheter Indwelling Catheter # Bowel Movements 1 1 - Exam Exam repeated. NO changes today. Patient is alert and oriented 3 appears well-nourished well-hydrated They do n ot appear septic. Lower extremities with 4/5 strength in all major muscle groups. Right lower e xtremity is still fairly weak in hip flexion however is getting better. Upper extremities show 4+/5 strength in all major muscle groups. [2]/4DTR all UE and LE b/l Patient shows a negative Homans, Ward's, negative Babinski's negative clonus bilaterally. negative straight leg raise bilaterally. No tensioning signs. Cranial nerves II through XII are grossly intact. There is FROM that is painless of the b/l UE and LE in all major joints [w/o pain]. They are intact to light touch sensation in L2 to S1 nerve distribution. Patient has palpable dorsalis pedis was posterior tibial pulses. Compartments are soft and compressible. - Labs CBC & Chem 7: 06/09/21 06:13 06/10/21 10:41 Labs: Abnormal Lab Results - Last 24 Hours (Table) 06/09/21 06/09/21 06/09/21 Range/Units 16:39 20:16 22:39 APTT (22.0-30.0) sec Sodium (137-145) mmol/L Potassium 3.2 L (3.5-5.1) mmol/L BUN (7-17) mg/dL Creatinine (0.52-1.04) mg/dL Glucose (74-99) mg/dL POC Glucose (mg/dL) 112 H 134 H (75-99) mg/dL Calcium (8.4-10.2) mg/dL AST (14-36) U/L ALT (4-34) U/L Total Protein (6.3-8.2) g/dL Albumin (3.5-5.0) g/dL 06/10/21 06/10/21 06/10/21 Range/Units 06:11 06:48 10:41 APTT 68.6 H (22.0-30.0) sec Sodium 131 L (137-145) mmol/L Potassium 3.3 L (3.5-5.1) mmol/L BUN 6 L (7-17) mg/dL Creatinine 0.45 L (0.52-1.04) mg/dL Glucose 125 H (74-99) mg/dL POC Glucose (mg/dL) 147 H (75-99) mg/dL Calcium 7.2 L (8.4-10.2) mg/dL AST 39 H (14-36) U/L ALT 185 H (4-34) U/L Total Protein 4.3 L (6.3-8.2) g/dL Albumin 2.0 L (3.5-5.0) g/dL 06/10/21 Range/Units 11:53 APTT (22.0-30.0) sec Sodium (137-145) mmol/L Potassium (3.5-5.1) mmol/L BUN (7-17) mg/dL Creatinine (0.52-1.04) mg/dL Glucose (74-99) mg/dL POC Glucose (mg/dL) 124 H (75-99) mg/dL Calcium (8.4-10.2) mg/dL AST (14-36) U/L ALT (4-34) U/L Total Protein (6.3-8.2) g/dL Albumin (3.5-5.0) g/dL Microbiology - Last 24 Hours (Table) 06/05/21 13:25 Blood Culture - Preliminary Blood No Growth after 96 hours Assessment and Plan Assessment: 65-year-old female postop day 8 L2 to S1 decompression fusion 1. L2-S1 severe stenosis 2.L2-S1 spondylosis 3. right lower extremity weakness 4. right lower extremity radiculopathy 5. L2-3 large HNP with sequestration 6. Mechanical low back pain 7. Acute bowel obstruction Plan: -Appreciate information systems consultant and team management. UP AND ABOUT DAILY! Patient needs to be more mobile. -Activity: Ambulate QID, OOB all meals, up and about, limit lifting bending twisting to less than 5 lbs. Use walker or cane if needed for stability. -Daily PT/OT, increase ambulation strength and balance. -No braces needed -Pain control: Adequate at this time -Meds: reviewed, cont with zofran and compazine for nausea. Pt on dexamethasone as well PO, not ideal for fusion and healing purposes but OK for need of antinausea. -GI ppx: senna, Miralax -DC stacy when up and about, bedside commode if needed -DVT PPX: Heparin SQ; TEDs; SCDs; Early ambulation -Hygiene: Shower OK. Maintain dressing clean and dry. Meticulous cleaning after BMs away from incision site -Encourage IS 10x/hr -Pulmonary general surgery and medical management -Dispo: Pending
--- NOTE | 2021-06-10 16:35 | P.PN ---
Subjective Progress Note Date: 06/10/21 Patient NGT out, passing gas and having BM. No abdominal pain Objective - Vital Signs Vital signs: Vital Signs Temp 98.1 F 06/10/21 12:00 Pulse 96 06/10/21 12:31 Resp 20 06/10/21 12:31 BP 150/71 06/10/21 12:00 Pulse Ox 98 06/10/21 12:00 Intake & Output 06/09/21 06/10/21 06/10/21 18:59 06:59 18:59 Intake Total 2696.671 970 Output Total 400 401 Balance 2696.671 570 -401 Weight 107 kg Intake: IV 1440 600 Sodium Chloride 0.9% 1, 1440 600 000 ml @ 120 mls/hr IV . Q8H20M [facility] Rx#:[id number] Intake, IV Titration 476.671 250 Amount Amiodarone 450 mg In 226.671 250 Dextrose 5% in Water 250 ml @ 0.5 MG/MIN 16.667 mls/hr IV .Q15H [facility] Rx#: [id number] Heparin Sod,Pork in 0.45% 250 NaCl 25,000 unit In 0.45 % NaCl 1 250ml.bag @ 800 UNIT/HR 8 mls/hr IV .Q24H [facility] Rx#:[id number] Oral 780 120 Output: Urine 400 400 Stool 1 Other: Voiding Method Indwelling Catheter Indwelling Catheter Indwelling Catheter # Bowel Movements 1 1 - Constitutional General appearance: Present: cooperative - Gastrointestinal Gastrointestinal Comment(s): S/NT/ND - Labs CBC & Chem 7: 06/09/21 06:13 06/10/21 10:41 Labs: Abnormal Lab Results - Last 24 Hours (Table) 06/09/21 06/09/21 06/09/21 Range/Units 16:39 20:16 22:39 APTT (22.0-30.0) sec Sodium (137-145) mmol/L Potassium 3.2 L (3.5-5.1) mmol/L BUN (7-17) mg/dL Creatinine (0.52-1.04) mg/dL Glucose (74-99) mg/dL POC Glucose (mg/dL) 112 H 134 H (75-99) mg/dL Calcium (8.4-10.2) mg/dL AST (14-36) U/L ALT (4-34) U/L Total Protein (6.3-8.2) g/dL Albumin (3.5-5.0) g/dL 06/10/21 06/10/21 06/10/21 Range/Units 06:11 06:48 10:41 APTT 68.6 H (22.0-30.0) sec Sodium 131 L (137-145) mmol/L Potassium 3.3 L (3.5-5.1) mmol/L BUN 6 L (7-17) mg/dL Creatinine 0.45 L (0.52-1.04) mg/dL Glucose 125 H (74-99) mg/dL POC Glucose (mg/dL) 147 H (75-99) mg/dL Calcium 7.2 L (8.4-10.2) mg/dL AST 39 H (14-36) U/L ALT 185 H (4-34) U/L Total Protein 4.3 L (6.3-8.2) g/dL Albumin 2.0 L (3.5-5.0) g/dL 06/10/21 Range/Units 11:53 APTT (22.0-30.0) sec Sodium (137-145) mmol/L Potassium (3.5-5.1) mmol/L BUN (7-17) mg/dL Creatinine (0.52-1.04) mg/dL Glucose (74-99) mg/dL POC Glucose (mg/dL) 124 H (75-99) mg/dL Calcium (8.4-10.2) mg/dL AST (14-36) U/L ALT (4-34) U/L Total Protein (6.3-8.2) g/dL Albumin (3.5-5.0) g/dL Microbiology - Last 24 Hours (Table) 06/05/21 13:25 Blood Culture - Preliminary Blood No Growth after 120 hours Assessment and Plan Assessment: Ileus S/P lumbar fusion Plan: Ileus appears to be resolving, advance to fulls as tolerated. No plans for general surgical intervention at this time
[2021-06-10 16:54] LABS: Glucose,Whole Blood 126 mg/dL (75-99)
[2021-06-10 20:12] LABS: Glucose,Whole Blood 169 mg/dL (75-99)
[2021-06-11] MEDS: HYDROmorphone 1 MG/ML 1 ML SYRINGE IVP PRN ×2 (00:41→09:42)
[2021-06-11] MEDS: SODIUM CHLORIDE 0.9% 1,000 ML IV SCH ×4 (03:59→20:21)
[2021-06-11] MEDS: PIPERACILLIN-TAZOBACTAM 3.375 GM in SODIUM CHLORIDE 0.9% 100 ML IVPB SCH ×3 (03:59→17:01)
[2021-06-11 06:09] LABS: Glucose,Whole Blood 142 mg/dL (75-99)
[2021-06-11] MEDS: INSULIN ASPART (NovoLOG) 100 UNIT/ML VIAL SQ SCH ×4 (06:12→20:21)
[2021-06-11 07:24] LABS: HCT 25.4 % (34.0-46.0); HGB 8.4 gm/dL (11.4-16.0); Hypochromasia Moderate; MCH 32.7 pg (25.0-35.0); MCV 99.1 fL (80.0-100.0); Macrocytosis Slight; Mean Platelet Volume 8.6; Platelet Count 148 k/uL (150-450); RBC 2.56 m/uL (3.80-5.40); RDW 15.4 % (11.5-15.5)
[2021-06-11 07:41] LABS: ALT 138 U/L (4-34); AST 53 U/L (14-36); African American GFR (CKD) >90 (>60 ml/min/1.73 sqM); Albumin 1.9 g/dL (3.5-5.0); Alkaline Phosphatase 65 U/L (38-126); Anion Gap 2 mmol/L; Blood Urea Nitrogen 5 mg/dL (7-17); Calcium 7.5 mg/dL (8.4-10.2); Carbon Dioxide 22 mmol/L (22-30); Chloride 108 mmol/L (98-107); Glucose 143 mg/dL (74-99); Non-African American GFR(CKD) >90 (>60 ml/min/1.73 sqM); Potassium 3.2 mmol/L (3.5-5.1); Sodium 132 mmol/L (137-145); Total Bilirubin 0.7 mg/dL (0.2-1.3); Total Protein 4.4 g/dL (6.3-8.2)
[2021-06-11] MEDS: METOPROLOL TARTRATE 50 MG TAB PO SCH ×2 (08:57→20:18)
[2021-06-11] MEDS: AMIODARONE 200 MG TAB PO SCH ×2 (08:57→20:18)
[2021-06-11] MEDS: POTASSIUM CHLORIDE ER 20 MEQ TAB.ER PO SCH (08:57)
[2021-06-11] MEDS: APIXABAN 2.5 MG TABLET PO SCH ×2 (08:58→20:18)
[2021-06-11] MEDS: PANTOPRAZOLE 40 MG/10 ML VIAL IVP SCH (09:02)
[2021-06-11] MEDS: NYSTATIN 100,000 UNIT/GM OINT 30 GM TUBE TOPICAL SCH ×2 (09:02→20:52)
[2021-06-11 10:42] LABS: Band Neutrophils % 2 %; Metamyelocytes % 3 %; Myelocytes % 1 %; Neutrophils % (M) 78 %; Nucleated Red Blood Cells 12 /100 WBC (0-0); Total Cells Counted 100
[2021-06-11 10:43] LABS: Eosinophils # (M) 0.07 k/uL (0-0.7); Lymphocytes # (M) 0.77 k/uL (1.0-4.8); Metamyelocytes # (M) 0.21 k/uL (0); Monocytes # (M) 0.28 k/uL (0-1.0); Myelocytes # (M) 0.07 k/uL (0)
[2021-06-11 10:46] LABS: Polychromasia Present
[2021-06-11 11:51] LABS: Glucose,Whole Blood 210 mg/dL (75-99)
[2021-06-11 16:42] LABS: Glucose,Whole Blood 124 mg/dL (75-99)
--- NOTE | 2021-06-11 18:15 | P.PN ---
Subjective Progress Note Date: 06/11/21 This is a 65-year-old female patient of Dr. Leblanc who presented for an elective L2 to S1 decompression fusion. Patient has a long-standing history of chronic back pain and was found to have L2 to S1 severe stenosis L2 to S1 spondylosis resulting in left lower extremity weakness low back pain and radiculopathy. Patient has failed outpatient conservative management and pain control. She has past medical history of degenerative disc disease with history of lumbar laminectomy and stimulator placement for pain management. Additional medical history includes insulin-dependent diabetes mellitus, hypertension, hyperlipidemia and post polio syndrome. Patient is currently postop day 1. Patient is resting comfortably in bed. Patient reports improvement with lower extremity weakness and pain but does report she's been having issues with diarrhea since [facility] facility. At this time will order C. diff sample. Patient also has low potassium of 3.2 ordered replacement protocol. Patient also placed on sliding scale insulin coverage along with her home dose of long-acting insulin. At this time patient denies chest pain or shortness of breath. Patient denies nausea vomiting or diarrhea. Patient denies any urinary burning or frequency On 06/04/2021 patient was seen and examined on the medical floor she is alert and oriented 3 in no apparent distress she had episodes of nausea and vomiting during last night and is receiving Zofran and Compazine as needed she is also complaining of pain in the lower back otherwise she denies any complaints there is no fever or chills no headache or dizziness no chest pain no shortness of breath no cough no abdominal pain no diarrhea and no urinary symptoms On 06/05/2021 patient was and A-team this morning due to lethargy and tachycardia. Patient was also found to be hypotensive. CTA was performed at that time showing no signs of PE but marked dilated esophagus gastroesophageal junction visual portion of the stomach. Gastric bowel obstruction cannot be excluded. NG tube was placed and 2.5L of dark output was obtained. Cardiology service is consulted for tachycardia and elevated troponin. Upon examination patient was found to be alert and oriented but remained hypotensive with blood pressure in the 60s patient currently getting second liter bolus continue fluids at 120 critical care service is consulted. Patient has been moved higher level of care. Surgical services also consulted for possible obstruction. Computed tomography scan with contrast ordered. On 06/06/2021 patient was seen and examined in the ICU she is alert and responsive in no apparent distress, per her nurse patient is upset and wants her NG tube out and wants to be able to eat at this time. It was explained to her that she has a bowel obstruction and surgery are following. She is still complaining of some abdominal discomfort otherwise no complaints at this time, her temperature is 100.5 pulse 118 respiration 21 blood pressure 158/43 pulse ox 95% on room air laboratory data reveals a white blood count of 24.5 hemoglobin 7.5 platelet count 198 BUN 41 creatinine 1.31 AST 1284 ALT 1525 which is lower than yesterday. At this time patient remains in ICU she is followed by pulmonary critical care, infectious disease, Gen. surgery, and orthopedic s jayleen, she was started on IV Zosyn yesterday, prognosis is guarded will follow closely On 06/07/2021 patient maintained in the intensive care unit. Patient is alert and oriented 3. Hemoglobin today is 31 unit of PRBCs have been ordered. Patient's upset that she has NG tube. Per nursing staff NG tube was pulled out last night and was replaced immediately put out 650. NG output appears green. Liver enzymes are trending down. Patient is in sinus rhythm. Patient remains on IV Zosyn. White blood cell 10.3. At this time patient denies chest pain or shortness of breath. Patient denies any nausea vomiting or diarrhea. Patient denies any urinary burning or frequency. On 06/08/2021 patient was seen and examined in the ICU she is alert and oriented 3 in no apparent distress she still has nasogastric tube in place there is no fever or chills no headache or dizziness no chest pain no shortness of breath no cough no nausea or vomiting no abdominal pain no diarrhea and no urinary sym ptoms. Vital examination reveals a temperature of 97.4 pulse 92 respiration 20 blood pressure 113/56 pulse ox 96% on 3 L nasal cannula, laboratory data reveals a white blood count of 10.1 hemoglobin 8.0 platelet count 121 BUN 14 creatinine 0.56 On 06/09/2021 patient was seen and examined on the medical floor she is alert and oriented in no apparent distress, patient is followed closely by surgery and pulmonary critical care, she was transferred out of ICU today, temperature is 97.8 pulse 91 respiration 18 blood pressure 135/52 pulse ox 97% on 2 L nasal cannula white blood count 11.0 hemoglobin 8.0 platelet count 127 BUN 10 creatinine 0.49 patient pulled out accidentally her nasogastric tube today. She had a repeat computed tomography scan of the abdomen and pelvis yesterday that revealed evidence of persistent signs of low grade small bowel obstruction with thickened Jejunal loop. At this time we are awaiting further recommendation from general surgery. On 06/10/2021 patient is alert and oriented. Patient remains on amiodarone and heparin drip. Surgical services are following. Patient remains on clear liquid diet. Temp is 98.1, heart rate 96, respiratory rate 20, blood pressure 150/71 SpO2 90% on 4 L. Patient reports some physical improvement. Patient denies chest pain. Patient denies shortness of breath. Patient denies burning or frequency. On 06/11/2021 patient was seen and examined on the medical floor she is alert and oriented 3 in no apparent distress there is no fever or chills no headache or dizziness no chest pain no shortness of breath no cough no nausea or vomiting no abdominal pain no diarrhea and no urinary symptoms. Diet has been advanced gradually patient is tolerating diet well without any episodes of vomiting she is passing gas and having bowel movements. Dr. recinos stated that no plans for surgical intervention at this time. IV heparin was discontinued and patient was started on oral Eliquis. Prior to this admission patient was admitted [facility] home, today she stated that she does not want to go back there she wants to go to [facility] for rehab. Possible transfer to rehab tomorrow. Objective - Vital Signs Vital signs: Vital Signs Temp 98.1 F 06/11/21 16:00 Pulse 95 06/11/21 16:00 Resp 20 06/11/21 16:00 BP 146/70 06/11/21 16:00 Pulse Ox 95 06/11/21 16:00 Intake & Output 06/10/21 06/11/21 06/11/21 18:59 06:59 18:59 Intake Total 850 1060 Output Total 489 025 7663 Balance -401 -2 59 Weight 107 kg Intake: Intake, IV Titration 240 1060 Amount Piperacillin-Tazobactam 3 100 .375 gm In Sodium Chloride 0.9% 100 ml @ 25 mls/hr IVPB Q8HR [facility] Rx# :[id number] Sodium Chloride 0.9% 1, 240 960 000 ml @ 120 mls/hr IV . Q8H20M [facility] Rx#:[id number] Oral 610 Output: Urine 657 687 4960 Stool 1 2 1 Other: Voiding Method Indwelling Catheter Indwelling Catheter Indwelling Catheter # Bowel Movements 1 1 - Exam Head normocephalic and atraumatic Neck supple no JVD Lungs clear to auscultation bilaterally no wheezing or crackles Heart regular rate and rhythm S1-S2, no rub or gallop Abdomen is soft nontender nondistended positive bowel sounds no hepatosplenomegaly Extremities no edema Neuro alert and orientated to 3 - Labs CBC & Chem 7: 06/11/21 07:03 06/11/21 07:03 Labs: Abnormal Lab Results - Last 24 Hours (Table) 06/10/21 06/11/21 06/11/21 Range/Units 20:06 06:07 07:03 RBC 2.56 L (3.80-5.40) m/uL Hgb 8.4 L (11.4-16.0) gm/dL Hct 25.4 L (34.0-46.0) % Plt Count 148 L (150-450) k/uL Lymphocytes # (Manual) 0.77 L (1.0-4.8) k/uL Metamyelocytes # (Man) 0.21 H (0) k/uL Myelocytes # (Manual) 0.07 H (0) k/uL Nucleated RBCs 12 H (0-0) /100 WBC Sodium (137-145) mmol/L Potassium (3.5-5.1) mmol/L Chloride (98-107) mmol/L BUN (7-17) mg/dL Creatinine (0.52-1.04) mg/dL Glucose (74-99) mg/dL POC Glucose (mg/dL) 169 H 142 H (75-99) mg/dL Calcium (8.4-10.2) mg/dL AST (14-36) U/L ALT (4-34) U/L Total Protein (6.3-8.2) g/dL Albumin (3.5-5.0) g/dL 06/11/21 06/11/21 06/11/21 Range/Units 07:03 11:49 16:40 RBC (3.80-5.40) m/uL Hgb (11.4-16.0) gm/dL Hct (34.0-46.0) % Plt Count (150-450) k/uL Lymphocytes # (Manual) (1.0-4.8) k/uL Metamyelocytes # (Man) (0) k/uL Myelocytes # (Manual) (0) k/uL Nucleated RBCs (0-0) /100 WBC Sodium 132 L (137-145) mmol/L Potassium 3.2 L (3.5-5.1) mmol/L Chloride 108 H (98-107) mmol/L BUN 5 L (7-17) mg/dL Creatinine 0.48 L (0.52-1.04) mg/dL Glucose 143 H (74-99) mg/dL POC Glucose (mg/dL) 210 H 124 H (75-99) mg/dL Calcium 7.5 L (8.4-10.2) mg/dL AST 53 H (14-36) U/L ALT 138 H (4-34) U/L Total Protein 4.4 L (6.3-8.2) g/dL Albumin 1.9 L (3.5-5.0) g/dL Microbiology - Last 24 Hours (Table) 06/05/21 13:25 Blood Culture - Final Blood No Growth after 144 hours Assessment and Plan Assessment: 1. History of L2 to S1 severe stenosis, L2 to S1 spondylosis. status post L2 to S1 decompression fusion with Dr. Mcdonough. Patient is currently postop day 4 2. History of right lower extremity weakness and right lower extremity radiculopathy and chronic back pain secondary to above 3. History of insulin-dependent diabetes mellitus. Patient maintained on long- acting insulin sliding scale coverage added 4. History of essential hypertension 5. History of hyperlipidemia 6. History of postpolio syndrome 7. History of degenerative disc disease with history of lumbar laminectomy stimulator placement for pain management 8. Hypokalemia. Replace per protocol 9. Diarrhea. Stool for C. diff ordered 10. Elevated troponin. Cardiology services consulted 11. Hypotension likely secondary from possible sepsis 12. Acute GI obstruction. Surgical services consulted NG tube in place 13. Atrial fibrillation with rapid ventricular response. Patient has been started on amiodarone drip cardiology services cardiology services following 14. Possible aspiration pneumonia. Dr. Izquierdo has been consulted patient started on Zosyn Patient has been transferred out of the intensive care unit Patient has been started on eliquis for anticoagulation per cardiology services Surgical, cardiology, critical care and infectious disease services following Maintained on IV antibiotics 1 unit of PRBCs ordered for 06/07/2031 Repeat labs ordered
[2021-06-11 20:10] LABS: Glucose,Whole Blood 134 mg/dL (75-99)
[2021-06-12] MEDS: PIPERACILLIN-TAZOBACTAM 3.375 GM in SODIUM CHLORIDE 0.9% 100 ML IVPB SCH ×2 (00:11→10:00)
[2021-06-12 05:41] LABS: Glucose,Whole Blood 129 mg/dL (75-99)
[2021-06-12] MEDS: INSULIN ASPART (NovoLOG) 100 UNIT/ML VIAL SQ SCH (05:47)
--- NOTE | 2021-06-12 08:43 | CDI ---
Documentation Clarification Form Date: 06/12/2021 07:40:06 AM From: Radha Wilson RN, CCDS Admit Date: 06/04/2021 11:00:00 AM Patient Name: Shelby Robison Visit Number: [id number] Discharge Date: ATTENTION: The Clinical Documentation Specialists (CDI) and [facility] Coding Staff appreciate your assistance in clarifying documentation. Please respond to the clarification below the line at the bottom and electronically sign. The CDI & [facility] Coding staff will review the response and follow-up if needed. Please note: Queries are made part of the Legal Health Record. If you have any questions, please contact the author of this message via ITS. Dr. Jt Dunn, Anemia is documented the surgical progress notes on 06/05/21 and patient had [L2- S1 decompression fusion on 06/02/21 Additional clarification is requested regarding the relationship, if any, that exists between the diagnosis and the procedure. 08/30 operative note: EBL: 650 CC, FLUID: 4000CC, UO: 310 CC 06/08 surgeryl progress notes: Acute decline in hemoglobin and of unclear source, no evidence of bleeding seen at nasogastric tube, her surgical site shows no evidence of significant bleeding. Appropriate response to 1 unit PRBCS. Patients Admitting Diagnosis: l2-S1 Stenosis spondylosis Post-Operative Diagnosis: Same Procedure performed: L2-S1 Decompression fusion History/Risk Factors: Spondylosis, Right lower extremity radiculopathy L2-3 large HNP with sequestration, mechanical low back pain, Diabetes mellitus, hypertension, Post-polio syndrome, COPD, Atrial Fibrillation, CAD, Spontaneous pneumothorax Former smoker Clinical indicators: 65-year-old female post lumbar laminectomy and fusion on 06/02/21. 06/03 HGB 8.9 27.9 06/05 HGB 9.1.28.1 06/06 HGB 7.5, 23.1 06/07 HGB 6.3, 19.4 Post transfusion 06/08 HGB 8.0, HCT 25.6 Treatment: ICU/Telemetry monitoring 1 Unit PRBC Monitor CBC, Lytes, BUN, and CR Daily per orders .9NS1, 000 Bolus x2 then 120MLS HR 06/05-06/11 What relationship, if any, exists between the diagnosis of anemia and the procedure? [ ] Anemia is a complication of surgical procedure [ ] Anemia is an expected outcome of the surgical procedure [ ] Anemia is related to patients co-morbid condition(s) of [insert co-morbid dxs] & not a complication of the procedure [ ] Other please specify ____ [ ] Unable to determine (Template Last Revised: June 2020) Unable to determine MTDD
--- NOTE | 2021-06-12 08:51 | P.PN ---
Subjective Progress Note Date: 06/10/21 Principal diagnosis: Possible aspiration pneumonia Patient is a 65 year old female electively admitted to the hospital for lower back surgery in this patient subsequently developing nausea vomiting increasing shortness of breath concerning for ileus and possible aspiration pneumonitis. On today's evaluation that is 06/10/2021 the patient remains to be afebrile, the patient is breathing comfortably on 2 L nasal cannula oxygen, the patient denies chest pain, the patient cough is decreased intensity and is mostly dry in nature, the patient denies abdominal pain no further vomiting Objective - Vital Signs Vital signs: Vital Signs Temp 98.1 F 06/10/21 12:00 Pulse 96 06/10/21 12:31 Resp 20 06/10/21 12:31 BP 150/71 06/10/21 12:00 Pulse Ox 98 06/10/21 12:00 Intake & Output 06/09/21 06/10/21 06/10/21 18:59 06:59 18:59 Intake Total 2696.671 970 Output Total 400 400 Balance 2696.671 570 -400 Weight 107 kg Intake: IV 1440 600 Sodium Chloride 0.9% 1, 1440 600 000 ml @ 120 mls/hr IV . Q8H20M [facility] Rx#:[id number] Intake, IV Titration 476.671 250 Amount Amiodarone 450 mg In 226.671 250 Dextrose 5% in Water 250 ml @ 0.5 MG/MIN 16.667 mls/hr IV .Q15H [facility] Rx#: [id number] Heparin Sod,Pork in 0.45% 250 NaCl 25,000 unit In 0.45 % NaCl 1 250ml.bag @ 800 UNIT/HR 8 mls/hr IV .Q24H [facility] Rx#:[id number] Oral 780 120 Output: Urine 400 400 Other: Voiding Method Indwelling Catheter Indwelling Catheter Indwelling Catheter # Bowel Movements 1 1 - Exam GENERAL DESCRIPTION: An elderly female lying in bed in no distress RESPIRATORY SYSTEM: Unlabored breathing , decreased breath sounds at bases HEART: S1 S2 regular rate and rhythm , ABDOMEN: Soft , no tenderness EXTREMITIES: No edema feet - Labs CBC & Chem 7: 06/11/21 07:03 06/11/21 07:03 Labs: Abnormal Lab Results - Last 24 Hours (Table) 06/09/21 06/09/21 06/09/21 Range/Units 16:39 20:16 22:39 APTT (22.0-30.0) sec Sodium (137-145) mmol/L Potassium 3.2 L (3.5-5.1) mmol/L BUN (7-17) mg/dL Creatinine (0.52-1.04) mg/dL Glucose (74-99) mg/dL POC Glucose (mg/dL) 112 H 134 H (75-99) mg/dL Calcium (8.4-10.2) mg/dL AST (14-36) U/L ALT (4-34) U/L Total Protein (6.3-8.2) g/dL Albumin (3.5-5.0) g/dL 06/10/21 06/10/21 06/10/21 Range/Units 06:11 06:48 10:41 APTT 68.6 H (22.0-30.0) sec Sodium 131 L (137-145) mmol/L Potassium 3.3 L (3.5-5.1) mmol/L BUN 6 L (7-17) mg/dL Creatinine 0.45 L (0.52-1.04) mg/dL Glucose 125 H (74-99) mg/dL POC Glucose (mg/dL) 147 H (75-99) mg/dL Calcium 7.2 L (8.4-10.2) mg/dL AST 39 H (14-36) U/L ALT 185 H (4-34) U/L Total Protein 4.3 L (6.3-8.2) g/dL Albumin 2.0 L (3.5-5.0) g/dL 06/10/21 Range/Units 11:53 APTT (22.0-30.0) sec Sodium (137-145) mmol/L Potassium (3.5-5.1) mmol/L BUN (7-17) mg/dL Creatinine (0.52-1.04) mg/dL Glucose (74-99) mg/dL POC Glucose (mg/dL) 124 H (75-99) mg/dL Calcium (8.4-10.2) mg/dL AST (14-36) U/L ALT (4-34) U/L Total Protein (6.3-8.2) g/dL Albumin (3.5-5.0) g/dL Microbiology - Last 24 Hours (Table) 06/05/21 13:25 Blood Culture - Preliminary Blood No Growth after 96 hours Assessment and Plan (1) Aspiration pneumonia Current Visit: Yes Status: Acute Code(s): J69.0 - PNEUMONITIS DUE TO INHALATION OF FOOD AND VOMIT SNOMED Code(s): 135643473 Plan: Patient with a low-grade fever of 100.5F, the patient did have elevated white count and tachycardia with concerning for ileus and possible aspiration pneumonia, sputum culture were requested however has not collected, patient has clinically responding to the Zosyn which will be continued, while monitoring clinical course closely Time with Patient: Less than 30
--- NOTE | 2021-06-12 08:52 | P.PN ---
Subjective Progress Note Date: 06/11/21 Principal diagnosis: Possible aspiration pneumonia Patient is a 65 year old female electively admitted to the hospital for lower back surgery in this patient subsequently developing nausea vomiting increasing shortness of breath concerning for ileus and possible aspiration pneumonitis. On today's evaluation that is 06/12/2021 the patient denies any fever or any chills, the patient is breathing comfortably on nasal cannula oxygen, the patient denies chest pain, the patient cough is decreased intensity and is mostly dry in nature, the patient denies abdominal pain no vomiting or diarrhea, patient been passing gas Objective - Vital Signs Vital signs: Vital Signs Temp 98.2 F 06/11/21 20:00 Pulse 89 06/11/21 20:00 Resp 20 06/11/21 20:00 BP 133/65 06/11/21 20:00 Pulse Ox 98 06/11/21 20:00 Intake & Output 06/11/21 06/11/21 06/12/21 06:59 18:59 06:59 Intake Total 850 1060 100 Output Total 852 1001 Balance -2 59 100 Intake: Intake, IV Titration 240 1060 100 Amount Piperacillin-Tazobactam 3 100 100 .375 gm In Sodium Chloride 0.9% 100 ml @ 25 mls/hr IVPB Q8HR [facility] Rx# :[id number] Sodium Chloride 0.9% 1, 240 960 000 ml @ 120 mls/hr IV . Q8H20M [facility] Rx#:[id number] Oral 610 Output: Urine 850 1000 Stool 2 1 Other: Voiding Method Indwelling Catheter Indwelling Catheter Indwelling Catheter # Bowel Movements 1 - Exam GENERAL DESCRIPTION: An elderly female lying in bed in no distress RESPIRATORY SYSTEM: Unlabored breathing , decreased breath sounds at bases HEART: S1 S2 regular rate and rhythm , ABDOMEN: Soft , no tenderness EXTREMITIES: No edema feet - Labs CBC & Chem 7: 06/11/21 07:03 06/11/21 07:03 Labs: Abnormal Lab Results - Last 24 Hours (Table) 06/11/21 06/11/21 06/11/21 Range/Units 06:07 07:03 07:03 RBC 2.56 L (3.80-5.40) m/uL Hgb 8.4 L (11.4-16.0) gm/dL Hct 25.4 L (34.0-46.0) % Plt Count 148 L (150-450) k/uL Lymphocytes # (Manual) 0.77 L (1.0-4.8) k/uL Metamyelocytes # (Man) 0.21 H (0) k/uL Myelocytes # (Manual) 0.07 H (0) k/uL Nucleated RBCs 12 H (0-0) /100 WBC Sodium 132 L (137-145) mmol/L Potassium 3.2 L (3.5-5.1) mmol/L Chloride 108 H (98-107) mmol/L BUN 5 L (7-17) mg/dL Creatinine 0.48 L (0.52-1.04) mg/dL Glucose 143 H (74-99) mg/dL POC Glucose (mg/dL) 142 H (75-99) mg/dL Calcium 7.5 L (8.4-10.2) mg/dL AST 53 H (14-36) U/L ALT 138 H (4-34) U/L Total Protein 4.4 L (6.3-8.2) g/dL Albumin 1.9 L (3.5-5.0) g/dL 06/11/21 06/11/21 06/11/21 Range/Units 11:49 16:40 20:07 RBC (3.80-5.40) m/uL Hgb (11.4-16.0) gm/dL Hct (34.0-46.0) % Plt Count (150-450) k/uL Lymphocytes # (Manual) (1.0-4.8) k/uL Metamyelocytes # (Man) (0) k/uL Myelocytes # (Manual) (0) k/uL Nucleated RBCs (0-0) /100 WBC Sodium (137-145) mmol/L Potassium (3.5-5.1) mmol/L Chloride (98-107) mmol/L BUN (7-17) mg/dL Creatinine (0.52-1.04) mg/dL Glucose (74-99) mg/dL POC Glucose (mg/dL) 210 H 124 H 134 H (75-99) mg/dL Calcium (8.4-10.2) mg/dL AST (14-36) U/L ALT (4-34) U/L Total Protein (6.3-8.2) g/dL Albumin (3.5-5.0) g/dL Microbiology - Last 24 Hours (Table) 06/05/21 13:25 Blood Culture - Final Blood No Growth after 144 hours Assessment and Plan (1) Aspiration pneumonia Current Visit: Yes Status: Acute Code(s): J69.0 - PNEUMONITIS DUE TO INHALATION OF FOOD AND VOMIT SNOMED Code(s): 688492739 Plan: Patient with a low-grade fever of 100.5F, the patient did have elevated white count and tachycardia with concerning for ileus and possible aspiration pneumonia, sputum culture were requested however has not collected, patient to continue with Zosyn to which the patient has responded clinically and monitor clinical course closely Time with Patient: Less than 30
[2021-06-12 09:17] LABS: ALT 97 U/L (4-34); AST 36 U/L (14-36); African American GFR (CKD) >90 (>60 ml/min/1.73 sqM); Alkaline Phosphatase 75 U/L (38-126); Anion Gap 3 mmol/L; Basophils # (A) 0.1 k/uL (0-0.2); Basophils % (A) 1 %; Blood Urea Nitrogen 5 mg/dL (7-17); Calcium 7.7 mg/dL (8.4-10.2); Carbon Dioxide 23 mmol/L (22-30); Chloride 109 mmol/L (98-107); Eosinophils # (A) 0.1 k/uL (0-0.7); Eosinophils % (A) 2 %; Glucose 166 mg/dL (74-99); HGB 10.4 gm/dL (11.4-16.0); Hypochromasia Marked; Lymphocytes # (A) 0.8 k/uL (1.0-4.8); Lymphocytes % (A) 9 %; MCH 31.8 pg (25.0-35.0); MCHC 31.4 g/dL (31.0-37.0); MCV 101.2 fL (80.0-100.0); Macrocytosis Slight; Mean Platelet Volume 8.6; Monocytes # (A) 0.4 k/uL (0-1.0); Monocytes % (A) 4 %; Neutrophils # (A) 7.3 k/uL (1.3-7.7); Neutrophils % (A) 82 %; Non-African American GFR(CKD) >90 (>60 ml/min/1.73 sqM); Platelet Count 194 k/uL (150-450); Poikilocytosis Slight; Potassium 3.2 mmol/L (3.5-5.1); RBC 3.26 m/uL (3.80-5.40); RDW 15.8 % (11.5-15.5); Sodium 135 mmol/L (137-145); Total Bilirubin 0.7 mg/dL (0.2-1.3); Total Protein 4.7 g/dL (6.3-8.2); WBC 8.8 k/uL (3.8-10.6)
[2021-06-12] MEDS: PANTOPRAZOLE 40 MG/10 ML VIAL IVP SCH (10:01)
[2021-06-12] MEDS: METOPROLOL TARTRATE 50 MG TAB PO SCH (10:01)
[2021-06-12] MEDS: APIXABAN 2.5 MG TABLET PO SCH (10:01)
[2021-06-12] MEDS: AMIODARONE 200 MG TAB PO SCH (10:01)
[2021-06-12 10:06] VITALS: PULSE 74; RESP 20
--- NOTE | 2021-06-12 11:16 | P.DS ---
Providers Date of admission: 06/04/21 11:00 Expected date of discharge: 06/12/21 Attending physician: Jt Dunn DO Consults: 06/02/21 16:41 Consult Physician Routine Consulting Provider: Caro Maddox Consult Reason/Comments: Medical Management Do you want consulting provider notified?: Yes 06/05/21 09:10 Consult Physician Routine Consulting Provider: Kg Najera Consult Reason/Comments: suspected obstruction Do you want consulting provider notified?: Yes 06/05/21 10:23 Consult Physician Routine Consulting Provider: Shay Avila Consult Reason/Comments: Obstruction, hypotension Do you want consulting provider notified?: Yes 06/05/21 13:14 Consult Physician Routine Consulting Provider: Kayla Izquierdo Consult Reason/Comments: hypotension, possible sepsis Do you want consulting provider notified?: Yes Primary care physician: Serina Leblanc Hospital Course: Discharge diagnosis 1. History of L2 to S1 severe stenosis, L2 to S1 spondylosis. status post L2 to S1 decompression fusion with Dr. Mcdonough. Patient is currently postop day 4 2. History of right lower extremity weakness and right lower extremity radiculopathy and chronic back pain secondary to above 3. History of insulin-dependent diabetes mellitus. Patient maintained on long- acting insulin sliding scale coverage added 4. History of essential hypertension 5. History of hyperlipidemia 6. History of postpolio syndrome 7. History of degenerative disc disease with history of lumbar laminectomy stimulator placement for pain management 8. Hypokalemia. Replace per protocol 9. Diarrhea. Stool for C. diff ordered 10. Elevated troponin. Cardiology services consulted 11. Hypotension likely secondary from possible sepsis 12. Acute GI obstruction. Surgical services consulted NG tube in place 13. Atrial fibrillation with rapid ventricular response. Patient has been started on amiodarone drip cardiology services cardiology services following 14. Possible aspiration pneumonia. Dr. Izquierdo has been consulted patient started on [facility] course This is a 65-year-old female patient of Dr. Leblanc who presented for an elective L2 to S1 decompression fusion. Patient has a long-standing history of chronic back pain and was found to have L2 to S1 severe stenosis L2 to S1 spondylosis resulting in left lower extremity weakness low back pain and radiculopathy. Patient has failed outpatient conservative management and pain control. She has past medical history of degenerative disc disease with history of lumbar laminectomy and stimulator placement for pain management. Additional medical history includes insulin-dependent diabetes mellitus, hypertension, hyperlipidemia and post polio syndrome. Patient is currently postop day 1. Patient is resting comfortably in bed. Patient reports improvement with lower extremity weakness and pain but does report she's been having issues with diarrhea since [facility] facility. At this time will order C. diff sample. Patient also has low potassium of 3.2 ordered replacement protocol. Patient also placed on sliding scale insulin coverage along with her home dose of long-acting insulin. At this time patient denies chest pain or shortness of breath. Patient denies nausea vomiting or diarrhea. Patient denies any urinary burning or frequency On 06/04/2021 patient was seen and examined on the medical floor she is alert and oriented 3 in no apparent distress she had episodes of nausea and vomiting during last night and is receiving Zofran and Compazine as needed she is also complaining of pain in the lower back otherwise she denies any complaints there is no fever or chills no headache or dizziness no chest pain no shortness of breath no cough no abdominal pain no diarrhea and no urinary symptoms On 06/05/2021 patient was and A-team this morning due to lethargy and tachycardia. Patient was also found to be hypotensive. CTA was performed at that time showing no signs of PE but marked dilated esophagus gastroesophageal junction visual portion of the stomach. Gastric bowel obstruction cannot be excluded. NG tube was placed and 2.5L of dark output was obtained. Cardiology service is consulted for tachycardia and elevated troponin. Upon examination patient was found to be alert and oriented but remained hypotensive with blood pressure in the 60s patient currently getting second liter bolus continue fluids at 120 critical care service is consulted. Patient has been moved higher level of care. Surgical services also consulted for possible obstruction. Computed tomography scan with contrast ordered. On 06/06/2021 patient was seen and examined in the ICU she is alert and responsive in no apparent distress, per her nurse patient is upset and wants her NG tube out and wants to be able to eat at this time. It was explained to her that she has a bowel obstruction and surgery are following. She is still complaining of some abdominal discomfort otherwise no complaints at this time, her temperature is 100.5 pulse 118 respiration 21 blood pressure 158/43 pulse ox 95% on room air laboratory data reveals a white blood count of 24.5 hemoglobin 7.5 platelet count 198 BUN 41 creatinine 1.31 AST 1284 ALT 1525 which is lower than yesterday. At this time patient remains in ICU she is followed by pulmonary critical care, infectious disease, Gen. surgery, and orthopedic surgery, she was started on IV Zosyn yesterday, prognosis is guarded will follow closely On 06/07/2021 patient maintained in the intensive care unit. Patient is alert and oriented 3. Hemoglobin today is 31 unit of PRBCs have been ordered. Patient's upset that she has NG tube. Per nursing staff NG tube was pulled out last night and was replaced immediately put out 650. NG output appears green. Liver enzymes are trending down. Patient is in sinus rhythm. Patient remains on IV Zosyn. White blood cell 10.3. At this time patient denies chest pain or shortness of breath. Patient denies any nausea vomiting or diarrhea. Patient denies any urinary burning or frequency. On 06/08/2021 patient was seen and examined in the ICU she is alert and oriented 3 in no apparent distress she still has nasogastric tube in place there is no fever or chills no headache or dizziness no chest pain no shortness of breath no cough no nausea or vomiting no abdominal pain no diarrhea and no urinary symptoms. Vital examination reveals a temperature of 97.4 pulse 92 respiration 20 blood pressure 113/56 pulse ox 96% on 3 L nasal cannula, laboratory data reveals a white blood count of 10.1 hemoglobin 8.0 platelet count 121 BUN 14 creatinine 0.56 On 06/09/2021 patient was seen and examined on the medical floor she is alert and oriented in no apparent distress, patient is followed closely by surgery and pulmonary critical care, she was transferred out of ICU today, temperature is 97.8 pulse 91 respiration 18 blood pressure 135/52 pulse ox 97% on 2 L nasal cannula white blood count 11.0 hemoglobin 8.0 platelet count 127 BUN 10 creatinine 0.49 patient pulled out accidentally her nasogastric tube today. She had a repeat computed tomography scan of the abdomen and pelvis yesterday that revealed evidence of persistent signs of low grade small bowel obstruction with thickened Jejunal loop. At this time we are awaiting further recommendation from general surgery. On 06/10/2021 patient is alert and oriented. Patient remains on amiodarone and heparin drip. Surgical services are following. Patient remains on clear liquid diet. Temp is 98.1, heart rate 96, respiratory rate 20, blood pressure 150/71 SpO2 90% on 4 L. Patient reports some physical improvement. Patient denies chest pain. Patient denies shortness of breath. Patient denies burning or frequency. On 06/11/2021 patient was seen and examined on the medical floor she is alert and oriented 3 in no apparent distress there is no fever or chills no headache or dizziness no chest pain no shortness of breath no cough no nausea or vomiting no abdominal pain no diarrhea and no urinary symptoms. Diet has been advanced gradually patient is tolerating diet well without any episodes of vomiting she is passing gas and having bowel movements. Dr. recinos stated that no plans for surgical intervention at this time. IV heparin was discontinued and patient was started on oral Eliquis. Prior to this admission patient was admitted [facility], today she stated that she does not want to go back there she wants to go to [facility] for rehab. Possible transfer to rehab tomorrow. On 06/12/2021 patient is alert and oriented 3. Patient has been transitioned to oral eliquis. Medications per ID for antibiotic Avelox. Patient will be DC'd to ECF facility. At this time patient denies chest pain or shortness of breath. Patient denies nausea vomiting or diarrhea. Patient denies any urinary burning or frequency Patient Condition at Discharge: Stable Plan - Discharge Summary Discharge Rx Participant: Yes New Discharge Prescriptions: New Apixaban [Eliquis] 2.5 mg PO BID #60 tab No Action Omeprazole [PriLOSEC] 20 mg PO DAILY DULoxetine HCL [Cymbalta] 60 mg PO HS Atorvastatin [Lipitor] 40 mg PO HS Metoprolol Tartrate [Lopressor] 50 mg PO BID Lisinopril [Prinivil] 10 mg PO DAILY Insulin Glargine,Hum.rec.anlog [Lantus Solostar Pen] 40 unit SQ HS Gabapentin 600 mg PO BID 3 Days #6 tab Ubidecarenone [Co Q-10] 100 mg PO DAILY Montelukast [Singulair] 10 mg PO HS amLODIPine [Norvasc] 10 mg PO HS INSULIN ASPART (NovoLOG) [NovoLOG (formulary)] 0 unit SQ ACHS ml oxyCODONE-APAP 10-325MG [Percocet 10-325 mg] 1 each PO Q6HR PRN 3 Days #12 tab PRN Reason: Pain Cyanocobalamin [Vitamin B-12] 1,000 mcg PO DAILY tab Dexamethasone [Decadron] 4 mg PO DAILY Tums(Dose Unknown) 1 tab PO DIRECTED PRN PRN Reason: Heartburn Cholecalciferol [Vitamin D3 (25 Mcg = 1000 Iu)] 25 mcg PO DAILY Discharge Medication List Atorvastatin [Lipitor] 40 mg PO HS 03/23/16 [History] DULoxetine HCL [Cymbalta] 60 mg PO HS 03/23/16 [History] Metoprolol Tartrate [Lopressor] 50 mg PO BID 03/23/16 [History] Omeprazole [PriLOSEC] 20 mg PO DAILY 03/23/16 [History] Insulin Glargine,Hum.rec.anlog [Lantus Solostar Pen] 40 unit SQ HS 05/18/21 [History] Lisinopril [Prinivil] 10 mg PO DAILY 05/18/21 [History] Montelukast [Singulair] 10 mg PO HS 05/18/21 [History] Ubidecarenone [Co Q-10] 100 mg PO DAILY 05/18/21 [History] amLODIPine [Norvasc] 10 mg PO HS 05/18/21 [History] Cyanocobalamin [Vitamin B-12] 1,000 mcg PO DAILY tab 05/22/21 [Rx] Gabapentin 600 mg PO BID 3 Days #6 tab 05/22/21 [Rx] INSULIN ASPART (NovoLOG) [NovoLOG (formulary)] 0 unit SQ ACHS ml 05/22/21 [Rx] oxyCODONE-APAP 10-325MG [Percocet 10-325 mg] 1 each PO Q6HR PRN 3 Days #12 tab 05/22/21 [Rx] Cholecalciferol [Vitamin D3 (25 Mcg = 1000 Iu)] 25 mcg PO DAILY 06/01/21 [History] Dexamethasone [Decadron] 4 mg PO DAILY 06/01/21 [History] Tums(Dose Unknown) 1 tab PO DIRECTED PRN 06/01/21 [History] Apixaban [Eliquis] 2.5 mg PO BID #60 tab 06/10/21 [Rx] Follow up Appointment(s)/Referral(s): Jt Dunn DO [Doctor of Osteopathic Medicine] - 1 Week Jesus [facility]to [facility] [NON-STAFF] - (Please call Fred if you have questions regarding your LSO brace. ) Activity/Diet/Wound Care/Special Instructions: Spine Discharge and Recovery Instructions Date of Surgery: 06/02/21 Diagnosis: Severe stenosis, neurogenic claudication, L4-5 spondylolisthesis, L2-S1 severe spondylosis, Procedure: L2-S1 decompression fusion Medications: See list All medication refills should be obtained through your primary care doctor or your clinic spine surgeon. Please discuss prescription refills at your follow up appointment. Do not call the hospital for medication refills. Dressing: Leave your dressing in place for a total of 3 days post operatively. Then you may remove your dressing and leave open to air. Keep the area clean and if not able to keep area clean, then cover with sterile gauze and tape. Showering: You may shower 3 days after your procedure allowing soap and water to run over incision. Do not scrub. Do not soak. Blot dry. Follow up: Please confirm a follow up appointment with your surgeon 2 weeks post operatively. Please make an appointment to follow up with your PCP in 1-2 weeks after surgery for evaluation 3 phase, 3-week plan POST OP WEEKS 1-3 1. Lifting/carrying/pushing/pulling limited to less than 5 pounds. 2. Do not sit for longer than 15 minutes at one time. Get up and walk around. Prolonged sitting is NOT advised. If you lay down, see if you can tolerate laying down on you front (belly side) 3. Walk for periods of 15 minutes = 1 mile but no longer; do it multiple times times each day. 4.Ice your low back after activity. POST OP WEEKS 3-6 1. Lifting limited to less than 20 pounds. 2. Do not sit for longer than 30 minutes at a time. Frequently change positions. Use a sit-to stand workstation or take frequent breaks from sitting if you have returned to work. 3. Walk for 30 minutes each day. If possible, do these three or more times a day POST OP WEEKS 6+ At your 6-week appointment we will give you a physical therapy referral to focus on a core stabilization and strengthening program. You should also work on leg & buttock strengthening, hamstring & quadriceps stretching, and continue a low impact aerobic activity program such as swimming, walking, or riding a stationary bicycle. During the initial 6 weeks after your surgery, you are at the highest risk of re-injuring your spine. You should generally avoid BLTs (bending, lifting and twisting combination motions) and follow the above guidelines to reduce the chance of reinjury. You can anticipate post op appointments in our office at approximately 3 weeks and 6 weeks after your surgery. INCISION CARE: If your incision is not draining you do NOT need to cover it with a dressing. Keep your incision clean, dry and intact. In most cases, we apply skin glue, susy or sutures to the incision at the time of surgery. This will be like a crust or have the appearance of a scab and will fall off in time on its own. The stitches or susy need to be removed at 3 weeks post op appointment. You may begin to shower 3 days after surgery (this allows the glue to patricio well). However, please avoid scrubbing the incision site or peeling off any of the skin glue. This will ensure optimal healing of your incision. Also, during this time avoid soaking the incision area in water - this includes swimming pools, hot tubs or baths. No ointments, lotions or oils on the incision until your surgeon allows. Leave susy, sutures or glue in place. Neurological dysfunction that comes on suddenly can also be a sign of a stroke. Below some common symptoms of a stroke are listed: B - balance difficulty such as sudden onset walking or leaning to one side - NEW E - eye problem such as sudden double vision or trouble seeing on one side - NEW F - Facial weakness or numbness on one side - NEW A - Arm or leg weakness or numbness on one side - NEW S - Slurred speech or difficulty with word finding - NEW T - Time is BRAIN! Call 911 as soon as you recognize these symptoms Diet: Consume a regular diet rich in vegetables and lean protein such as chicken or fish. You should consume in a ratio of approximately 20% fats|40% carbohydrates|40%protein. Vegetables, sweet potatoes, brown rice or quinoa are examples of good carbohydrates. Chips, white bread, cookies and sweets/sugar are examples of bad carbohydrates. Limit your bad carbs, go wild with good carbs. "Life's Simple 7" Guidelines as per [place] [employer] These will help you reclaim your life after surgery and driver helper in your recovery, keeping in mind your restrictions. (1) Get Active. Physical activity can help people lose weight, control high blood pressure and cholesterol, feel emotionally better, and sleep better. (2) Control Cholesterol. Avoid a diet high in saturated fat, trans fat, & cholesterol. Limit whole milk & cream, ice cream, butter, egg yolks, processed meats (like sausage and hot dogs), and fatty meats. Choose healthy foods that are low in saturated fat, trans fat and cholesterol w hich include: Fruits and vegetables, fiber rich grain products (like whole grain pasta and brown rice), lean meat such as chicken, fish, nuts, seeds, and legumes. (3) Eat Better. Eat small portions. Shop at the grocery with a list and do not stray from it. Tips for a healthy diet include: Limit sodium intake to less than 1500mg daily, avoid prepackaged, processed, and fast foods, choose a diet rich in fruits, vegetables, and whole grain, high fiber foods, and limit saturated & cholesterol in your diet. (4) Manage Blood Pressure. If you have high blood pressure, you should have a cuff at home so that you can check your blood pressure regularly. Be sure you have a good cuff. An arm one is generally better than a wrist one. Bring the cuff to a doctor's appointment to validate that the measurements that your cuff are taking are accurate. Take your blood pressure twice daily when you are sitting down and relaxing. Record the numbers in a log and bring this log with you to your doctors' appointments. (5) Lose Weight if your BMI is above 25. A healthy BMI is between 19-25. To calculate Your BMI, you may use a Standard BMI Calculator on the NIH BMI website: <www.nhlbi.nih.gov/guidelines/obesity/BMI/bmicalc.htm>. Weigh oneself daily. If you are overweight, set a goal to lose weight. A pound a week loss if needed is a good target. (6) Reduce Blood Sugar. Limit foods and liquids with "added sugars." (Added sugars include sucrose, fructose, glucose, maltose, dextrose, high fructose corn syrup, corn syrup, concentrated fruit juice and honey). (7) Stop Smoking. If you smoke, quitting smoking is one of the best things that you can do for your health. Smoking increases your risk of heart attack, stroke, and peripheral vascular disease, which is a build-up of plaque in your arteries. Please discard all the cigarettes and lighters in your house. Have a plan for what you will do when you have the urge to smoke. Direct and second- hand smoke shortens your life as well as the lives of your family, friends and others around you. For your health and the health of those around you, please consider quitting! Proper Bending Body Mechanics: Maintain a wide stance with one foot slightly in front of the other. Keep your back straight. Bend utilizing the strength in your hips and knees. Do not bend at the waist. Maintain the lifted object at your waist-level close to your body. Avoid lifting weight that causes immediately pain or pain anywhere in the body afterwards. Smoking/Nicotine If there was ever one thing that you could do to increase your overall health, decrease your risk of cardiovascular problems by about 39% the second you make the choice, it is to STOP SMOKING. Your body's most instant gratification is the second you stop smoking. We have all heard the studies, read the articles but it is true, smoking is extremely bad for your overall health, and moreover it is detrimental to your bone health. Nicotine, IN ANY FORM, kills bone cells, prevents your body from healing fractures, and significantly prolongs healing after surgery. In spine surgery specifically, it increases your risk of not healing your bones to create a fusion and increases your risk of having a revision surgery due to this up to 60%. I know it is hard. I know it feels impossible. But there are ways. Take control of your life. We are here to help you through it. And when you are ready, ask us and we can direct you to help if you desire. Use the START Plan to Quit Smoking (please visit the HelpguMediamorph.org website listed below for more information): S = Set a quit date. Choose a date within the next 2 weeks, so you have enough time to prepare without losing your motivation to quit. If you mainly smoke at work, quit on the weekend, so you have a few days to adjust to the change. T = Tell family, friends, and co-workers that you plan to quit. Let your friends and family in on your plan to quit smoking and tell them you need their support and encouragement to stop. Look for a quit melvin who wants to stop smoking as well. You can help each other get through the rough times. A = Anticipate and plan for the challenges you'll face while quitting. Most people who begin smoking again do so within the first 3 months. You can help yourself make it through by preparing ahead for common challenges, such as nicotine withdrawal and cigarette cravings. R = Remove cigarettes and other tobacco products from your home, car, and work. Throw away all your cigarettes (no emergency pack!), lighters, ashtrays, and matches. Wash your clothes and freshen up anything that smells like smoke. Shampoo your car, clean your drapes and carpet, and steam your furniture. T = Talk to your doctor about getting help to quit. Your doctor can prescribe medication to help with withdrawal and suggest other alternatives. If you can't see a doctor, you can get many products over the counter at your local pharmacy or grocery store, including the nicotine patch, nicotine lozenges, and nicotine gum. Resources for Quitting Smoking: <https://www.[place].gov/documents/[facility]/Quit_Tobacco_Resources_for_patients_313 480_7.pdf> Supplementation: Take recommended dosages of Vitamin D and Calcium to help fortify your bones and help them to heal. See your health maintenance packet for dosages and recommended levels. DVT/VTE prophylaxis: You will be given compression stockings from the hospital. Wear these daily for the first two weeks after surgery. You may take them off at night. You may be prescribed a medication to help thin your blood. Take this as directed. If you are not prescribed this medication, early and frequent ambulation has been shown to be the best prophylaxis to deep vein thrombosis and sequelae related to this event. Discharge Disposition: TRANSFER TO SNF/ECF
[2021-06-12 11:50] LABS: Glucose,Whole Blood 173 mg/dL (75-99)
[2021-06-12 13:57] VITALS: BP 122/68; TEMP 97.9
--- NOTE | 2021-06-16 08:09 | CDI ---
Documentation Clarification Form Date: 06/10/2021 10:23:00 AM From: Radha Wilson RN, CCDS Admit Date: 06/04/2021 11:00:00 AM Patient Name: Shelby Robison Visit Number: [id number] Discharge Date: 06/12/2021 02:24:00 PM ATTENTION: The Clinical Documentation Specialists (CDI) and [facility] Coding Staff appreciate your assistance in clarifying documentation. Please respond to the clarification below the line at the bottom and electronically sign. The CDI & [facility] Coding staff will review the response and follow-up if needed. Please note: Queries are made part of the Legal Health Record. If you have any questions, please contact the author of this message via ITS. Dr. Shay Avila Your patient has documentation of dyspnea, hypoxemia and acute respiratory distress in the progress notes on 06/05/21. Based on this information and the findings below, is there an additional diagnosis that is clinically appropriate for this patient? 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 On 06/05 the patient had a low blood pressure and low saturations. She was moved to ICU and was on a partial rebreather mask. 06/05 vital signs: (07:00) 74/52 122 81 % 2/L NC 06/05 Vital signs: 77/46 150 30 80 % Non-rebreather FIow rate 15, (09:08) 62/46 104 24 92 % Non-rebreather Flow rate 15 06/05 Lung/Breathing assessment: Mostly clear breath sounds. Mild scattered rhonchi. No wheezes or crackles. 06/05 WBC 24.3 HGB 9.3, HCT 27.8, BUN 38, Creatinine 1.51 2. WBC 24.5 HGB 7.5, HCT 23.1, BUN 41, Creatinine 1.31 06/05 ABG/CBG: pH 7.40 pO2 152 pCO2 20 HCO3 13, Total CO2 13 FIO2 100 Treatment: ICU/Telemetry monitoring Monitor O2 Sat's (Titrate) Levophed 8 mg in 250ml/bag Drop per orders (06/05 -06/06) .9NS IV Bolus x 2 then 120 MLS/HR 06/05-06/10 Continuous Pulse ox Is there an additional diagnosis that is clinically appropriate for this patient? [ ] Acute Hypoxic Respiratory Failure (pO2 <60 mm Hg or SpO2 <91% on room air) [ ] Acute Hypercapnic Respiratory Failure (pCO2 >50 and pH <7.35) [ ] Acute on Chronic Respiratory Failure [ ] Chronic Respiratory Failure [ ] Acute Respiratory Distress only [ ] Other Diagnosis, please specify [ ] Unable to determine (Template Last Revised: June 2020) MTDD
--- NOTE | 2021-06-19 22:28 | P.PN ---
Subjective Progress Note Date: 06/12/21 Principal diagnosis: Possible aspiration pneumonia Patient is a 65 year old female electively admitted to the hospital for lower back surgery in this patient subsequently developing nausea vomiting increasing shortness of breath concerning for ileus and possible aspiration pneumonitis. On today's evaluation that is 06/12/2021 the patient denies any fever or any chills, the patient is breathing comfortably on nasal cannula oxygen, the patient denies chest pain, the patient cough is decreased intensity and is mostly dry in nature, the patient denies abdominal pain no vomiting or diarrhea, patient been passing gas Objective - Vital Signs Vital signs: Vital Signs Temp 98 F 06/12/21 10:05 Pulse 74 06/12/21 10:05 Resp 20 06/12/21 10:05 BP 145/63 06/12/21 10:05 Pulse Ox 99 06/12/21 10:05 Intake & Output 06/11/21 06/12/21 06/12/21 18:59 06:59 18:59 Intake Total 1060 1640 360 Output Total 1001 350 Balance 59 1290 360 Intake: Intake, IV Titration 1060 1640 Amount Piperacillin-Tazobactam 3 100 200 .375 gm In Sodium Chloride 0.9% 100 ml @ 25 mls/hr IVPB Q8HR [facility] Rx# :[id number] Sodium Chloride 0.9% 1, 960 1440 000 ml @ 120 mls/hr IV . Q8H20M [facility] Rx#:[id number] Oral 360 Output: Urine 1000 350 Stool 1 Other: Voiding Method Indwelling Catheter Indwelling Catheter Indwelling Catheter # Bowel Movements 3 - Exam GENERAL DESCRIPTION: An elderly female lying in bed in no distress RESPIRATORY SYSTEM: Unlabored breathing , decreased breath sounds at bases HEART: S1 S2 regular rate and rhythm , ABDOMEN: Soft , no tenderness EXTREMITIES: No edema feet - Labs CBC & Chem 7: 06/12/21 08:29 06/12/21 08:29 Labs: Abnormal Lab Results - Last 24 Hours (Table) 06/11/21 06/11/21 06/12/21 Range/Units 16:40 20:07 05:40 RBC (3.80-5.40) m/uL Hgb (11.4-16.0) gm/dL Hct (34.0-46.0) % MCV (80.0-100.0) fL RDW (11.5-15.5) % Lymphocytes # (1.0-4.8) k/uL Sodium (137-145) mmol/L Potassium (3.5-5.1) mmol/L Chloride (98-107) mmol/L BUN (7-17) mg/dL Creatinine (0.52-1.04) mg/dL Glucose (74-99) mg/dL POC Glucose (mg/dL) 124 H 134 H 129 H (75-99) mg/dL Calcium (8.4-10.2) mg/dL ALT (4-34) U/L Total Protein (6.3-8.2) g/dL Albumin (3.5-5.0) g/dL 06/12/21 06/12/21 06/12/21 Range/Units 08:29 08:29 11:48 RBC 3.26 L (3.80-5.40) m/uL Hgb 10.4 L (11.4-16.0) gm/dL Hct 33.0 L (34.0-46.0) % MCV 101.2 H (80.0-100.0) fL RDW 15.8 H (11.5-15.5) % Lymphocytes # 0.8 L (1.0-4.8) k/uL Sodium 135 L (137-145) mmol/L Potassium 3.2 L (3.5-5.1) mmol/L Chloride 109 H (98-107) mmol/L BUN 5 L (7-17) mg/dL Creatinine 0.43 L (0.52-1.04) mg/dL Glucose 166 H (74-99) mg/dL POC Glucose (mg/dL) 173 H (75-99) mg/dL Calcium 7.7 L (8.4-10.2) mg/dL ALT 97 H (4-34) U/L Total Protein 4.7 L (6.3-8.2) g/dL Albumin 2.0 L (3.5-5.0) g/dL Microbiology - Last 24 Hours (Table) 06/05/21 13:25 Blood Culture - Final Blood No Growth after 144 hours Assessment and Plan (1) Aspiration pneumonia Status: Acute Code(s): J69.0 - PNEUMONITIS DUE TO INHALATION OF FOOD AND VOMIT SNOMED Code(s): 986611036 Plan: Patient with a low-grade fever of 100.5F, the patient did have elevated white count and tachycardia with concerning for ileus and possible aspiration pne umonia, sputum culture were requested however has not collected, patient has received adequate Zosyn therapy and will finish therapy with either Augmentin or Avelox and a close outpatient follow-up Time with Patient: Less than 30
== END 2021-06-12 14:24 | DRG 453 ==
LOC: OR 06:35 → 4SSUR 16:15 → OR 06-03 15:53 → 4SSUR 06-03 15:53 → UNDOADMOB 06-03 17:22 → OBSVTOIN 06-04 11:00 → 3SCARD 06-05 07:56 → 2SICU 06-05 11:06 → 3SCARD 06-09 16:33
PROVIDERS: ADMIT Orthopaedic Surgery; ATTEND Orthopaedic Surgery
PROC: 0SG10AJ Fusion of 2 or more Lumbar Vertebral Joints with Interbody Fusion Device, Posterior Approach, Anterior Column, Open Approach (ICD-10-PCS; 2021-06-02)
PROC: 0SG3071 Fusion of Lumbosacral Joint with Autologous Tissue Substitute, Posterior Approach, Posterior Column, Open Approach (ICD-10-PCS; 2021-06-02)
PROC: 0SB20ZZ Excision of Lumbar Vertebral Disc, Open Approach (ICD-10-PCS; 2021-06-02)
PROC: 0SB40ZZ Excision of Lumbosacral Disc, Open Approach (ICD-10-PCS; 2021-06-02)
PROC: 0SG1071 Fusion of 2 or more Lumbar Vertebral Joints with Autologous Tissue Substitute, Posterior Approach, Posterior Column, Open Approach (ICD-10-PCS; principal; 2021-06-02 07:30)
PROC: 30233N1 Transfusion of Nonautologous Red Blood Cells into Peripheral Vein, Percutaneous Approach (ICD-10-PCS; 2021-06-07)
PROC: 0D9670Z Drainage of Stomach with Drainage Device, Via Natural or Artificial Opening (ICD-10-PCS; 2021-06-09)
DX: M48.061 Spinal stenosis, lumbar region without neurogenic claudication (principal); A41.9 Sepsis, unspecified organism; J69.0 Pneumonitis due to inhalation of food and vomit; J96.91 Respiratory failure, unspecified with hypoxia; R65.21 Severe sepsis with septic shock; E87.2 Acidosis; J44.0 Chronic obstructive pulmonary disease with (acute) lower respiratory infection; J98.11 Atelectasis; K56.690 Other partial intestinal obstruction; K31.1 Adult hypertrophic pyloric stenosis; D64.9 Anemia, unspecified; E66.9 Obesity, unspecified; Z68.33 Body mass index [BMI] 33.0-33.9, adult; E78.5 Hyperlipidemia, unspecified; E87.6 Hypokalemia; G14 Postpolio syndrome; G89.29 Other chronic pain; I25.10 Atherosclerotic heart disease of native coronary artery without angina pectoris; I11.9 Hypertensive heart disease without heart failure; I45.10 Unspecified right bundle-branch block; I48.0 Paroxysmal atrial fibrillation; M43.16 Spondylolisthesis, lumbar region; M51.16 Intervertebral disc disorders with radiculopathy, lumbar region; M47.9 Spondylosis, unspecified; K22.89 Other specified disease of esophagus; Z79.4 Long term (current) use of insulin; Z79.899 Other long term (current) drug therapy; Z87.891 Personal history of nicotine dependence; Z90.49 Acquired absence of other specified parts of digestive tract; Z95.1 Presence of aortocoronary bypass graft; Z99.3 Dependence on wheelchair; E11.9 Type 2 diabetes mellitus without complications; R00.0 Tachycardia, unspecified; I95.9 Hypotension, unspecified; R77.8 Other specified abnormalities of plasma proteins; R19.7 Diarrhea, unspecified
CPT/HCPCS: 36600; 71045; 71275; 72100; 72131; 74018; 74176; 74177; 80048; 80053; 82533; 82565; 82805; 83735; 84132; 84145; 84484; 84520; 85025; 85027; 85610; 85730; 86140; 86850; 86900; 86901; 86920; 87040; 87086; 87635; 93005; 93306; 94760

== ENCOUNTER 2021-10-06 14:32 | Emergency (ER) | payer MEDICARE ==
[2021-10-06 15:00] VITALS: BP 125/66; PULSE 59; RESP 16; TEMP 98.3
[2021-10-06] MEDS ORDERED: SILVER NITRATE APPLICATOR 1 EACH STICK..EA. TOPICAL STA (15:25)
--- NOTE | 2021-10-06 15:54 | ED ---
ENT HPI - General Chief complaint: ENT Stated complaint: L ear bleeding Time Seen by Provider: 10/06/21 15:17 Source: patient Mode of arrival: EMS Limitations: no limitations - History of Present Illness Initial comments: this 66-year-old female presents complaining of some bleeding from her left ear. She states that it started this morning. It is been a small amount but fairly continuous. She denies any ear pain. She denies any trauma to the left ear. She states that she has had previous mastoid surgery. She currently has a ruptured tympanic membrane. She has had this several times before. She currently is on eliquis for atrial fibrillation. She denies taking any aspirin or Plavix. She does present via ambulance as she is nonambulatory. She lives in an adult living facility. There is no fevers or chills. No other complaints or modifying factors. - Related Data Home Medications Medication Instructions Recorded Confirmed Atorvastatin [Lipitor] 40 mg PO HS@209903/23/16 06/29/21 DULoxetine HCL [Cymbalta] 60 mg PO HS@209903/23/16 06/29/21 Metoprolol Tartrate [Lopressor] 50 mg PO BID@09,209903/23/16 06/29/21 Omeprazole [PriLOSEC] 20 mg PO DAILY@0603/23/16 06/29/21 Montelukast [Singulair] 10 mg PO HS@209905/18/21 06/29/21 Ubidecarenone [Co Q-10] 100 mg PO DAILY@0905/18/21 06/29/21 Cholecalciferol [Vitamin D3 (25 25 mcg PO DAILY@89906/01/21 06/29/21 Mcg = 1000 Iu)] Amiodarone [Cordarone] 200 mg PO BID@0900,209906/29/21 06/29/21 Apixaban [Eliquis] 2.5 mg PO BID@00,209906/29/21 06/29/21 Benzocaine/Glycerin/Dm 5-30-5 %/Mg 1 spray MUCOUS MEM QID PRN 06/29/21 06/29/21 [place] Calcium Carbonate [Tums] 500 mg PO DAILY PRN 06/29/21 06/29/21 Cyanocobalamin [Vitamin B-12] 1,000 mcg PO DAILY@0900 06/29/21 06/29/21 Gabapentin 600 mg PO BID@0900,2100 06/29/21 06/29/21 Glucerna Shake 1 can PO TID-W/MEALS 06/29/21 06/29/21 Previous Rx's Medication Instructions Recorded oxyCODONE-APAP 10-325MG [Percocet 1 tab PO Q6HR PRN #21 tab 06/12/21 10-325 mg] INSULIN ASPART (NovoLOG) [NovoLOG 0 unit SQ ACHS ml 07/03/21 (formulary)] Insulin Detemir (Levemir) [Levemir] 30 unit SQ HS@2100 ml 07/03/21 Meropenem [Merrem] 1 gm IVPB Q8HR 28 Days each 07/03/21 Gabapentin 600 mg PO BID 3 Days #6 tab 07/04/21 HYDROcodone/APAP 10-325MG [[place] 1 tab PO Q6HR PRN 7 Days #12 tab 07/04/21 10-325] Lactobacillus Acidophilus 1 each PO BID #60 capsule 07/04/21 [[place] Acidophilus] Neomyc/Colist/Hydrocort/Thonzn 4 drop LEFT EAR QID #10 ml 10/06/21 [Cortisporin-Tc Ear Suspension] Allergies Allergy/AdvReac Type Severity Reaction Status Date / Time morphine Allergy rash,itchin Verified 10/06/21 15:00 g Sulfa (Sulfonamide Allergy Rash/Hives Verified 10/06/21 15:00 Antibiotics) surgical susy AdvReac Unknown Uncoded 10/06/21 15:00 Review of Systems ROS Statement: Those systems with pertinent positive or pertinent negative responses have been documented in the HPI. ROS Other: All systems not noted in ROS Statement are negative. Past Medical History Past Medical History: Atrial Fibrillation, Coronary Artery Disease (CAD), COPD, Diabetes Mellitus, GERD/Reflux, Hyperlipidemia Additional Past Medical History / Comment(s): post polio syndrome, neuropathy, hx. spontaneous pneumothorax, recent diarrhea, bowel resecction for sepsis/infection History of Any Multi-Drug Resistant Organisms: ESBL Date of last positivie culture/infection: 06/29/21 MDRO Source:: ESBL BACK Past Surgical History: Back Surgery, Bowel Resection, Cholecystectomy, Coronary Bypass/CABG, Ear Surgery, Tonsillectomy Additional Past Surgical History / Comment(s): triple bypass 2013, left salpingo-oophorectomy, laminectomy L4 L5, ear surgery x 3 Past Anesthesia/Blood Transfusion Reactions: No Reported Reaction Past Psychological History: No Psychological Hx Reported Smoking Status: Former smoker Past Alcohol Use History: None Reported Past Drug Use History: None Reported - Past Family History Mother Family Medical History: Cancer General Exam Limitations: no limitations Eye exam: Present: normal appearance, EOMI ENT exam: Present: normal external ear exam, other ( There is a mixture of wax and dark dried blood noted in the left ear. Upon removal of the wax and dried blood, there appears to be a significant perforation of the tympanic membrane which is apparently chronic for the patient. There is no bleeding noted from the external auditory canal.). Absent: TM's normal bilaterally ( dried blood is noted proximal to the tympanic membrane. There is no active bleeding noted.) Neck exam: Present: normal inspection Psychiatric exam: Present: normal affect, normal mood Skin exam: Present: intact. Absent: rash Course Vital Signs 10/06/21 14:55 Temperature 98.3 F Pulse Rate 59 L Respiratory 16 Rate Blood Pressure 125/66 O2 Sat by Pulse 94 L Oximetry Medical Decision Making - Medical Decision Making The patient was seen and examined. The external auditory canal was cleaned out with wet Q-tips. A significant amount of bloody cerumen was removed from the ear. Good visualization of the external auditory canal is noted. There is no identifiable bleeding noted from external auditory canal. There is some dried blood and small blood clots noted just proximal to the ruptured tympanic membrane. No active bleeding is noted from this area as well. It is felt as though she stable for discharge home but will likely benefit from follow-up with ears nose and throat. She relates that she recently moved up to this area and does not have one locally. She will be referred to Dr. Kelly. Return parameters are discussed. Close follow-up recommended. She will be prescribed Cortisporin otic suspension for infection prophylaxis. Disposition Clinical Impression: Bleeding from left ear Disposition: HOME SELF-CARE Condition: Good Instructions (If sedation given, give patient instructions): Blood Thinners (ED) Additional Instructions: We saw you today for some bleeding from your left ear. It appears to have stopped at this time. Please call in the am to schedule an appointment with the ENT physician, Dr. Kelly. 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 Prescriptions: Neomyc/Colist/Hydrocort/Thonzn [Cortisporin-Tc Ear Suspension] 4 drop LEFT EAR QID #10 ml Is patient prescribed a controlled substance at d/c from ED?: No Referrals: Serina Leblanc MD [Primary Care Provider] - 1-2 days Eduardo Kelly MD [STAFF PHYSICIAN] - 1-2 days Time of Disposition: 15:49
== END 2021-10-06 16:54 | disposition home or self-care (01) ==
LOC: EC 14:32
DX: H92.22 Otorrhagia, left ear (principal); J44.9 Chronic obstructive pulmonary disease, unspecified; Z79.83 Long term (current) use of bisphosphonates; K21.9 Gastro-esophageal reflux disease without esophagitis; E78.5 Hyperlipidemia, unspecified; E11.9 Type 2 diabetes mellitus without complications; Z87.891 Personal history of nicotine dependence; Z88.2 Allergy status to sulfonamides; Z88.8 Allergy status to other drugs, medicaments and biological substances
CPT/HCPCS: 99283

== ENCOUNTER → 2022-02-02 | Outpatient (CLI) | payer MEDICARE, OTHER ==
--- NOTE | 2022-02-02 17:41 | BD ---
EXAMINATION TYPE: Axial Bone Density DATE OF EXAM: 02/02/2022 COMPARISON: NONE CLINICAL HISTORY: 66 years year old Female. ICD-10 CODE: Z78.0 ASYMPTOMATIC MENOPAUSAL STATE Height: 63 IN Weight: 193 LBS RISK FACTORS HISTORY OF: Surgery to Spine: L SPINE SURGERY 2007 AND 2021 Family History of Osteoporosis: YES MOTHER Active: VERY LIMITED Diet low in dairy products/other sources of calcium: YES Postmenopausal woman: AGE 48 Take estrogen and/or progesterone medications: NOT NOW How long: TOOK CONTROL 6 YEARS Frequent falls: YES DUE TO LEGS GIVING OUT/ POLIO MEDICATIONS: Additional Medications: VIT D, DIABETES MEDS, HEART MEDS, CHOLESTEROL, PAIN MEDS, VIT A, BIOTIN, EXAM MEASUREMENTS: Bone mineral densitometry was performed using the [employer] System. Bone mineral density about the R hip (g/cm2): 0.796 Bone mineral density about the L hip (g/cm2): 0.751 T Score values are as follows: -----R Neck: -1.7 -----L Neck: -2.1 -----R Total: -1.6 -----L Total: -1.3 Bone mineral density has: Decreased -17.4% since study of: 10/22/2016 Bone mineral density about the R Wrist (g/cm2): 0.426 T Score values are as follows: -----Dist. R+U: -3.3 -----Prox. R+U: -3.9 -----Radius total: -4.1 Bone mineral density BASELINE FRAX%s: The graph provided illustrates a 18.4 chance for a major osteoporotic fx and a 3.4 chance for the hips probability for fx in 10 years time. IMPRESSION: Osteoporosis (T Score less than -2.5). There is increased fracture risk and therapy is usually indicated based on age. Re-Screen 1-2 years. NOTE: T-SCORE=SD OF THE YOUNG ADULT MEAN.
--- NOTE | 2022-02-03 11:35 | MM ---
Reason for Exam: Screening (asymptomatic). Last mammogram was performed 1 year(s) and 8 month(s) ago. Patient History: Menarche at age 8. First Full-Term at age 18. Left ovary removed at age 54. Postmenopausal. Mother had breast cancer, age 55. Risk Values: Jennie 5 year model risk: 3.6%. NCI Lifetime model risk: 11.3%. Prior Study Comparison: 10/22/2016 Bilateral Screening Mammogram, [facility]. 06/01/2018 Bilateral Screening Mammogram, [facility]. 06/12/2020 Bilateral Screening Mammogram, [facility]. Tissue Density: There are scattered fibroglandular densities. Findings: Analyzed By CAD. Oval focal asymmetry new at the 10:00 right breast middle to posterior depth. Otherwise, there is chronic nodularity posterior upper outer quadrant and inferiorly in the left breast. Some scattered benign vascular calcifications are also noted. Overall Assessment: Incomplete: need additional imaging evaluation, BI-RAD 0 Management: Special View Mammogram of the right breast. Diagnostic Breast Ultrasound of the right breast. Including spot 3-D CC, Spot 3-D MLO, and 3-D ML views. Targeted right breast ultrasound after initial further mammographic assessment. [facility] will attempt to contact patient to return for supplemental views and ultrasound if indicated. Electronically signed and approved by: Chong Velasquez M.D. Radiologist
--- NOTE | 2022-02-03 11:35 | MM ---
Reason for Exam: Screening (asymptomatic). Last mammogram was performed 1 year(s) and 8 month(s) ago. Patient History: Menarche at age 8. First Full-Term at age 18. Left ovary removed at age 54. Postmenopausal. Mother had breast cancer, age 55. Risk Values: Jennie 5 year model risk: 3.6%. NCI Lifetime model risk: 11.3%. Prior Study Comparison: 10/22/2016 Bilateral Screening Mammogram, [facility]. 06/01/2018 Bilateral Screening Mammogram, [facility]. 06/12/2020 Bilateral Screening Mammogram, [facility]. Tissue Density: There are scattered fibroglandular densities. Findings: Analyzed By CAD. Oval focal asymmetry new at the 10:00 right breast middle to posterior depth. Otherwise, there is chronic nodularity posterior upper outer quadrant and inferiorly in the left breast. Some scattered benign vascular calcifications are also noted. Overall Assessment: Incomplete: need additional imaging evaluation, BI-RAD 0 Management: Special View Mammogram of the right breast. Diagnostic Breast Ultrasound of the right breast. Including spot 3-D CC, Spot 3-D MLO, and 3-D ML views. Targeted right breast ultrasound after initial further mammographic assessment. [facility] will attempt to contact patient to return for supplemental views and ultrasound if indicated. Electronically signed and approved by: Chong Velasquez M.D. Radiologist
== END | disposition home or self-care (01) ==
LOC: RADMAMWWP 12:35
PROVIDERS: ATTEND Family Medicine
DX: Z12.31 Encounter for screening mammogram for malignant neoplasm of breast (principal); M81.0 Age-related osteoporosis without current pathological fracture; Z78.0 Asymptomatic menopausal state; Z80.3 Family history of malignant neoplasm of breast
CPT/HCPCS: 77063; 77067; 77080

== ENCOUNTER → 2022-02-04 | Outpatient (CLI) | payer MEDICARE, OTHER ==
--- NOTE | 2022-02-04 09:56 | MM ---
Reason for Exam: Additional evaluation requested from prior study. Last screening mammogram was performed less than 1 month ago. Patient History: Menarche at age 8. First Full-Term at age 18. Left ovary removed at age 54. Postmenopausal. Mother had breast cancer, age 55. Risk Values: Jennie 5 year model risk: 3.6%. NCI Lifetime model risk: 11.3%. Tissue Density: Right: There are scattered fibroglandular densities. Findings: Analyzed By CAD. A 9 mm focal asymmetry in the right breast outer aspect approximately 13 cm distance from nipple does not go completely away on additional views. Overall Assessment: Incomplete: need additional imaging evaluation, BI-RAD 0 Management: Diagnostic Breast Ultrasound of the right breast. Targeted ultrasound right breast advised. Electronically signed and approved by: Freddie Renee M.D.
--- NOTE | 2022-02-04 10:42 | USB ---
Reason for Exam: Additional evaluation requested from abnormal screening. Patient History: Menarche at age 8. First Full-Term at age 18. Left ovary removed at age 54. Postmenopausal. Mother had breast cancer, age 55. Risk Values: Jennie 5 year model risk: 3.6%. NCI Lifetime model risk: 11.3%. Technique: Method: Targeted. Prior Study Comparison: 06/01/2018 Bilateral Screening Mammogram, [facility]. 06/12/2020 Bilateral Screening Mammogram, [facility]. 02/02/2022 Bilateral MG 3D screening mammo w/cad, [facility]. Findings: The lower outer quadrant of the right breast, the axilla of the right breast and the retroareolar of the right breast were scanned. Targeted ultrasound right breast shows a vague irregular heterogeneous hypoechoic 8 mm avascular area or lesion 9:00 position 13 cm distance from nipple which likely correlate with area of mammogram concern. Overall Assessment: Suspicious, BI-RAD 4 Management: Ultrasound Core Biopsy of the right breast. Targeted ultrasound biopsy. ??Results were given to the patient verbally at the time of exam. Electronically signed and approved by: Freddie Renee M.D.
== END | disposition home or self-care (01) ==
LOC: RADMAMWWP 09:03
PROVIDERS: ATTEND Family Medicine
DX: R92.8 Other abnormal and inconclusive findings on diagnostic imaging of breast (principal); Z78.0 Asymptomatic menopausal state; Z80.3 Family history of malignant neoplasm of breast
CPT/HCPCS: 77065; 76642; G0279; 77061

== ENCOUNTER → 2022-02-12 | Day surgery (SDC) | payer MEDICARE, OTHER ==
--- NOTE | 2022-02-17 10:23 | MM ---
Reason for Exam: Post Procedure Mammogram. Last screening mammogram was performed less than 1 month ago. Patient History: Menarche at age 8. First Full-Term at age 18. Left ovary removed at age 54. Postmenopausal. Mother had breast cancer, age 55. Risk Values: Jennie 5 year model risk: 3.6%. NCI Lifetime model risk: 11.3%. Prior Study Comparison: 06/12/2020 Bilateral Screening Mammogram, [facility]. 02/02/2022 Bilateral MG 3D screening mammo w/cad, [facility]. 02/04/2022 Right MG 3D work up w/cad RT, [facility]. Tissue Density: Right: There are scattered fibroglandular densities. Pathology Description: Location: 9 o'clock, upper outer quadrant, middle. Marker Left Behind. Cores: 4 Gauge: 12 The procedure of ultrasound guided core biopsy was explained to the patient. Benefits, alternatives, and risks were discussed. An informed consent was then obtained. The patient was placed in supine positioning for imaging and for the procedure. The overlying skin was prepped and draped in usual sterile fashion. Lidocaine buffered with bicarbonate was used as anesthetic into the skin and subcutaneous tissue up to area of concern in the right 9:00 breast. A gretel was made with surgical scalpel. Under ultrasound guidance, a 12-gauge vacuum assisted biopsy gun device was used to obtain 4 core samples. Following this, a biopsy clip was left in lesion. The patient tolerated the procedure well without any immediate complication. The patient was kept in the radiology department for short stay after the procedure and then discharged home in stable condition. Postprocedure mammogram: The patient was transferred to mammography for physician ordered post procedure mammogram for clip placement verification. Post procedural mammogram demonstrates appropriate clip placement. Impression: Successful, uncomplicated ultrasound guided core biopsy of area of concern in the right 9:00 breast, full pathology results to follow. Pathology Results: Result: Malignant, Invasive ductal carcinoma. RIGHT BREAST, 9:00, NEEDLE CORE BIOPSY: Invasive moderately differentiated ductal carcinoma (Grade 2). See Surgical Pathology Cancer Case Summary. Overall Assessment: Malignant Assessment: MG diagnostic mammo RT wo CAD - Right: Known biopsy proven malignancy, BI-RAD 6. Management: Surgical Consultation of the right breast. Electronically signed and approved by: Eddie Mota M.D. Radiologis
== END ==
LOC: RADUSWWP 09:55
PROVIDERS: ATTEND Family Medicine
DX: C50.911 Malignant neoplasm of unspecified site of right female breast (principal)
CPT/HCPCS: 88305; 88342; 88341; 77065; 19083; A4648

== ENCOUNTER → 2022-02-26 | Outpatient (CLI) | payer MEDICARE, OTHER ==
[2022-02-26 10:48] VITALS: BP 120/68; PULSE 53; RESP 16; TEMP 98
--- NOTE | 2022-02-26 11:24 | P.GSHP ---
History of Present Illness H&P Date: 02/26/22 Chief Complaint: Stage I a invasive ductal carcinoma right breast Shelby is a 66-year-old white female seen in consultation for Dr. 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 She underwent a bilateral screening mammogram on 135519 which revealed asymmetry in the right breast. This was followed by an ultrasound guided core biopsy on [id number]. This was a grade 2 invasive ductal carcinoma ER/GA positive HER-2/mayco negative. Patient does not feel any lumps masses or nodules of concern. This was found on a screening mammogram. Was never had any surgery on her breast in the past. She is not complaining of any recent trauma or infection in the breast. She is not complaining of any nipple discharge. Caffeine: 1 can of pop/day nicotine: none; stopped 15 years ago for 28 years chocolate: occasional hormones: BCP-8 years Family history: mother: breast cancer at 55 Hormonal History: menarche: 8 , breast fed: no, age at first : 18 menopause: 48 Surgical history: gallbladder mastoid left side 3 times; tumor colon resection for infection e coli left ovary and fallopian tube secondary to infection tripple bypass back fusion June 2021 laminectomy tonsilectomy Medical History: polio post polio syndrome; right arm week right leg immobile COPD Social History: nicotine: At this time stopped 15 years ago did smoke for 28 years used to smoke approximately 1 pack per day Alcohol:occasional drugs: none - Constitutional Constitutional: Reports sweats - EENT Eyes: bilateral blurred vision Ears: bilateral: decreased hearing Ears, nose, mouth and throat: Denies headache, Denies sore throat - Breasts Breasts: bilateral: as per HPI - Cardiovascular Comment: Atrial fibrillation patient is on eloquis Cardiovascular: Reports shortness of breath - Respiratory Comment: COPD Respiratory: Denies cough, Denies 7 - Gastrointestinal Gastrointestinal: Reports diarrhea - Genitourinary (Female) Comment: UTI Genitourinary: Reports kidney stones - Menstruation Menstruation: Reports postmenopausal - Musculoskeletal Musculoskeletal: Reports as per HPI - Integumentary Integumentary: Denies pruritus, Denies rash - Neurological Neurological: Reports as per HPI - Psychiatric Psychiatric: Reports anxiety, Reports depression - Endocrine Endocrine: Reports fatigue - Hematologic/Lymphatic Comment: eloquis - Allergic/Immunologic Allergic/Immunologic: Reports as per HPI, Reports seasonal allergies Past Medical History Past Medical History: Atrial Fibrillation, Coronary Artery Disease (CAD), COPD, Diabetes Mellitus, GERD/Reflux, Hyperlipidemia Additional Past Medical History / Comment(s): post polio syndrome, neuropathy, hx. spontaneous pneumothorax, recent diarrhea, bowel resecction for sepsis/infection History of Any Multi-Drug Resistant Organisms: ESBL Date of last positivie culture/infection: 06/29/21 MDRO Source:: ESBL BACK Past Surgical History: Back Surgery, Bowel Resection, Cholecystectomy, Coronary Bypass/CABG, Ear Surgery, Tonsillectomy Additional Past Surgical History / Comment(s): triple bypass 2013, left salpingo-oophorectomy, laminectomy L4 L5, ear surgery x 3 Past Anesthesia/Blood Transfusion Reactions: No Reported Reaction Past Psychological History: No Psychological Hx Reported, Anxiety, Depression Additional Psychological History / Comment(s): mild Smoking Status: Former smoker Past Alcohol Use History: Occasional Additional Past Alcohol Use History / Comment(s): quit smoking 2008 Past Drug Use History: None Reported - Past Family History Mother Family Medical History: Cancer Medications and Allergies Home Medications Medication Instructions Recorded Confirmed Type Atorvastatin [Lipitor] 40 mg PO HS@209903/23/16 02/26/22 History DULoxetine HCL [Cymbalta] 60 mg PO HS@209903/23/16 02/26/22 History Metoprolol Tartrate [Lopressor] 50 mg PO BID@0900,209903/23/16 02/26/22 History Omeprazole [PriLOSEC] 20 mg PO DAILY@0600 03/23/16 02/26/22 History Montelukast [Singulair] 10 mg PO HS@209905/18/21 02/26/22 History Ubidecarenone [Co Q-10] 100 mg PO DAILY@0900 05/18/21 02/26/22 History Cholecalciferol [Vitamin D3 (25 25 mcg PO DAILY@0900 06/01/21 02/26/22 History Mcg = 1000 Iu)] Amiodarone [Cordarone] 200 mg PO BID@0900,209906/29/21 02/26/22 History Apixaban [Eliquis] 2.5 mg PO BID@0900,209906/29/21 02/26/22 History Cyanocobalamin [Vitamin B-12] 1,000 mcg PO DAILY@0900 06/29/21 02/26/22 History Gabapentin 600 mg PO TID 06/29/21 02/26/22 History Insulin Detemir (Levemir) [Levemir] 30 unit SQ HS@2100 ml 07/03/21 02/26/22 Rx HYDROcodone/APAP 10-325MG [[place] 1 tab PO Q6HR PRN 7 Days #12 tab 07/04/21 02/26/22 Rx 10-325] Lactobacillus Acidophilus 1 each PO BID #60 capsule 07/04/21 02/26/22 Rx [Florajen Acidophilus] Allergies Allergy/AdvReac Type Severity Reaction Status Date / Time morphine Allergy rash,itchin Verified 02/26/22 10:48 g Sulfa (Sulfonamide Allergy Rash/Hives Verified 02/26/22 10:48 Antibiotics) surgical susy AdvReac Unknown Uncoded 02/26/22 10:48 Surgical - Exam Vital Signs Temp Pulse Resp BP Pulse Ox 98.0 F 53 L 16 120/68 92 L 02/26/22 10:45 02/26/22 10:45 02/26/22 10:45 02/26/22 10:45 02/26/22 10:45 BMI: 33.7 - General moderate distress - Eyes normal ocular movement - Neck trachea midline - Respiratory normal respiratory effort, clear to auscultation - Cardiovascular Heart Sounds: normal: S1, S2 - Integumentary normal turgor - Neurologic no disoriented, no combative - Musculoskeletal uses a walker - Psychiatric oriented to time, oriented to person, oriented to place, speech is normal, memory intact Breast Exam: BRA: 44D Inspection: bilateral grade 3 ptosis palpation: right breast: multi positional exam fibrocystic changes no definite discrete masses or nodules of concern, biopsy site is well-healed and not perceptible Right axilla: No adenopathy of concern Left breast: Multi-positional exam fibrocystic changes noted dominant masses or nodules of concern Left axilla: No adenopathy of concern Results Review of mammogram and ultrasound with Dr. Mota Assessment and Plan Assessment: Impression: Right breast invasive ductal carcinoma grade 2 ER/GA positive HER-2/mayco negative stage IA Post polio syndrome Atrial fibrillation on Eloquis Plan: Is a dictation of case at tumor board Risks and benefits of procedure and options discussed with patient and son CC: Dr. Leblanc
== END | disposition home or self-care (01) ==
LOC: WWCWWP 09:52
PROVIDERS: ATTEND Surgery
DX: Z53.9 Procedure and treatment not carried out, unspecified reason (principal)

== ENCOUNTER 2022-04-05 21:55 | Observation (INO) | payer MEDICARE, OTHER ==
[2022-04-06] MEDS ORDERED: SODIUM CHLORIDE 0.9% 1,000 ML IV STA (00:30)
[2022-04-06] MEDS ORDERED: AMPICILLIN-SULBACTAM 3 GM in SODIUM CHLORIDE 0.9% 100 ML IVPB STA (00:31)
[2022-04-06] MEDS ORDERED: DOXYCYCLINE 100 MG CAP PO STA (00:31)
[2022-04-06] MEDS ORDERED: MORPHINE SULFATE 4 MG/ML SYRINGE IV STA (00:32)
[2022-04-06] MEDS ORDERED: ONDANSETRON 4 MG/2 ML VIAL IVP STA (00:32)
[2022-04-06] MEDS ORDERED: HYDROmorphone 1 MG/ML 1 ML SYRINGE IVP STA (00:39)
--- NOTE | 2022-04-06 00:48 | XR ---
EXAMINATION TYPE: XR foot complete RT DATE OF EXAM: 04/06/2022 COMPARISON: NONE HISTORY: Injury TECHNIQUE: 3 view FINDINGS: There is plantar and Achilles calcaneal spurring. There is some spurring at the tarsometata rsal joints. The toes are intact. Metatarsals are intact. IMPRESSION: No acute abnormality of the right foot. No fracture. Calcaneal spurring.
--- NOTE | 2022-04-06 00:49 | XR ---
EXAMINATION TYPE: XR ankle complete RT DATE OF EXAM: 04/06/2022 COMPARISON: NONE HISTORY: Pain TECHNIQUE: 3 views FINDINGS: Ankle mortise is anatomic. There is no sign of fracture nor dislocation. There is calcaneal spurring. There is mild soft tissue swelling over the lateral malleolus. IMPRESSION: Mild soft tissue swelling. No fracture.
[2022-04-06 01:11] LABS: Basophils % (A) 0 %; Eosinophils # (A) 0.1 k/uL (0-0.7); Eosinophils % (A) 1 %; HCT 40.3 % (34.0-46.0); HGB 12.9 gm/dL (11.4-16.0); Hypochromasia Slight; Lymphocytes # (A) 1.3 k/uL (1.0-4.8); Lymphocytes % (A) 14 %; MCH 26.8 pg (25.0-35.0); MCHC 32.1 g/dL (31.0-37.0); MCV 83.5 fL (80.0-100.0); Mean Platelet Volume 8.8; Monocytes # (A) 0.7 k/uL (0-1.0); Monocytes % (A) 8 %; Neutrophils # (A) 6.9 k/uL (1.3-7.7); Neutrophils % (A) 74 %; Platelet Count 237 k/uL (150-450); RBC 4.83 m/uL (3.80-5.40); RDW 15.6 % (11.5-15.5); WBC 9.3 k/uL (3.8-10.6)
--- NOTE | 2022-04-06 01:27 | ED ---
Lower Extremity Injury HPI - General Chief Complaint: Extremity Injury, Lower Stated Complaint: rt foot pain/poss clot Time Seen by Provider: 04/06/22 00:13 Source: patient, RN notes reviewed Mode of arrival: ambulatory Limitations: no limitations - History of Present Illness Initial Comments: This is a 66-year-old diabetic female who presents to our department complaining of right foot pain, specifically the distal aspect near the fourth and fifth MTP joints. Patient states she was reaching for a piece of paper a few days ago when she fell injuring her foot. Patient states she noticed today there was some redness and increased pain. Patient denies any other injuries. No headache, no fever or chills, no changes in vision or hearing, no sore throat or difficulty with speech, no neck pain, no chest pain or shortness of breath, no abdominal pain, no nausea or vomiting, no changes in urination or bowel movements, no numbness or tingling,, no skin rashes or lesions. Past medical, surgical, social, and family history reviewed. - Related Data Home Medications Medication Instructions Recorded Confirmed Atorvastatin [Lipitor] 40 mg PO HS@209903/23/16 02/26/22 DULoxetine HCL [Cymbalta] 60 mg PO HS@209903/23/16 02/26/22 Metoprolol Tartrate [Lopressor] 50 mg PO BID@899,209903/23/16 02/26/22 Omeprazole [PriLOSEC] 20 mg PO DAILY@0603/23/16 02/26/22 Montelukast [Singulair] 10 mg PO HS@209905/18/21 02/26/22 Ubidecarenone [Co Q-10] 100 mg PO DAILY@89905/18/21 02/26/22 Cholecalciferol [Vitamin D3 (25 25 mcg PO DAILY@89906/01/21 02/26/22 Mcg = 1000 Iu)] Amiodarone [Cordarone] 200 mg PO BID@899,209906/29/21 02/26/22 Apixaban [Eliquis] 2.5 mg PO BID@0900,209906/29/21 02/26/22 Cyanocobalamin [Vitamin B-12] 1,000 mcg PO DAILY@89906/29/21 02/26/22 Gabapentin 600 mg PO TID 06/29/21 02/26/22 Previous Rx's Medication Instructions Recorded Insulin Detemir (Levemir) [Levemir] 30 unit SQ HS@2100 ml 07/03/21 HYDROcodone/APAP 10-325MG [[place] 1 tab PO Q6HR PRN 7 Days #12 tab 07/04/21 10-325] Lactobacillus Acidophilus 1 each PO BID #60 capsule 07/04/21 [Florajen Acidophilus] Allergies Allergy/AdvReac Type Severity Reaction Status Date / Time morphine Allergy rash,itchin Verified 04/05/22 22:33 g Sulfa (Sulfonamide Allergy Rash/Hives Verified 04/05/22 22:33 Antibiotics) surgical susy AdvReac Unknown Uncoded 04/05/22 22:33 Review of Systems ROS Statement: Those systems with pertinent positive or pertinent negative responses have been documented in the HPI. ROS Other: All systems not noted in ROS Statement are negative. Past Medical History Past Medical History: Atrial Fibrillation, Coronary Artery Disease (CAD), COPD, Diabetes Mellitus, GERD/Reflux, Hyperlipidemia Additional Past Medical History / Comment(s): post polio syndrome, neuropathy, hx. spontaneous pneumothorax, recent diarrhea, bowel resecction for sepsis/infe ction History of Any Multi-Drug Resistant Organisms: ESBL Date of last positivie culture/infection: 06/29/21 MDRO Source:: ESBL BACK Past Surgical History: Back Surgery, Bowel Resection, Cholecystectomy, Coronary Bypass/CABG, Ear Surgery, Tonsillectomy Additional Past Surgical History / Comment(s): triple bypass 2013, left salpingo-oophorectomy, laminectomy L4 L5, ear surgery x 3 Past Anesthesia/Blood Transfusion Reactions: No Reported Reaction Past Psychological History: No Psychological Hx Reported, Anxiety, Depression Smoking Status: Former smoker Past Alcohol Use History: Occasional Past Drug Use History: None Reported - Past Family History Mother Family Medical History: Cancer General Exam - General Exam Comments Initial Comments: Patient does not appear to be ill or toxic. Vital signs reviewed Limitations: no limitations General appearance: alert, in distress (Mild distress secondary to right foot pain.) Head exam: Present: atraumatic, normocephalic, normal inspection Eye exam: Present: normal appearance, EOMI Neck exam: Present: normal inspection Respiratory exam: Present: normal lung sounds bilaterally. Absent: respiratory distress, wheezes, rales, rhonchi, stridor Cardiovascular Exam: Present: regular rate, normal rhythm, normal heart sounds. Absent: systolic murmur, diastolic murmur, rubs, gallop, clicks GI/Abdominal exam: Present: soft, normal bowel sounds. Absent: distended, tenderness, guarding, rebound, rigid Extremities exam: Present: tenderness (Patient has tenderness near the proximal phalanx of the right fifth toe with overlying erythema. No break in skin integrity. Pedal pulses 2+ out of 4. Capillary refill less than 2 seconds), other (Erythema progresses just past the MTP joint near the fourth and fifth toes. No evidence of foreign body or break in skin integrity) Back exam: Present: normal inspection. Absent: rash noted Neurological exam: Present: alert, oriented X3, CN II-XII intact Psychiatric exam: Present: normal affect, normal mood Skin exam: Present: intact, erythema (Erythema right distal foot and fifth toe as noted), other (No nail plate damage). Absent: rash, urticaria, vesicles, petechiae, pallor, mottled, abrasion Course Vital Signs 04/05/22 04/06/22 22:34 02:45 Temperature 99 F Pulse Rate 66 63 Respiratory 15 18 Rate Blood Pressure 115/60 143/75 O2 Sat by Pulse 100 92 L Oximetry - Reevaluation(s) Reevaluation #1: 04/06/22 02:26 Medical record is reviewed Symptoms are improved here in the emergency department Patient is informed of results and questions answered Patient in no distress Reevaluation #2: 04/06/22 03:06 Patient reevaluated and is resting comfortably. Pain controlled - Consultations Consultation #1: Case discussed in detail with the patient's admitting physician, Dr. Maddox. Patient will be admitted for further evaluation and orthopedic consultation. Medical Decision Making - Medical Decision Making Differential diagnosis, for injury with fracture versus soft tissue injury. Patient has overlying erythema. Consistent with overlying cellulitis. No break in skin integrity. Patient's inflammatory markers, specifically the sedimentation rate and CRP were elevated.Given these findings and the patient's diabetic status going to admit the patient for antibiotics. Patient was started on Unasyn and doxycycline here in the ER. The case was discussed in detail with ED attending physician. Presentation, findings, treatment plan discussed in detail. Patient was hemodynamically stable. At that the x-ray was read as negative by radiology. I did notify the x-ray tech. I did reevaluate the clindamycin myself. Consistent with proximal phalanx fracture of the right fifth toe. Discussed all findings with the patient. This treatment plan in detail. Repeat the CBC and add-on uric acid as well as lactic acid was exam. - Lab Data Result diagrams: 04/06/22 00:56 04/06/22 00:56 Lab Results 04/06/22 04/06/22 Range/Units 00:56 00:56 WBC 9.3 (3.8-10.6) k/uL RBC 4.83 (3.80-5.40) m/uL Hgb 12.9 (11.4-16.0) gm/dL Hct 40.3 (34.0-46.0) % MCV 83.5 (80.0-100.0) fL MCH 26.8 (25.0-35.0) pg MCHC 32.1 (31.0-37.0) g/dL RDW 15.6 H (11.5-15.5) % Plt Count 237 (150-450) k/uL MPV 8.8 Neutrophils % 74 % Lymphocytes % 14 % Monocytes % 8 % Eosinophils % 1 % Basophils % 0 % Neutrophils # 6.9 (1.3-7.7) k/uL Lymphocytes # 1.3 (1.0-4.8) k/uL Monocytes # 0.7 (0-1.0) k/uL Eosinophils # 0.1 (0-0.7) k/uL Basophils # 0.0 (0-0.2) k/uL Hypochromasia Slight ESR 36 H (0-20) mm/hr Sodium 140 (137-145) mmol/L Potassium 4.2 (3.5-5.1) mmol/L Chloride 108 H (98-107) mmol/L Carbon Dioxide 22 (22-30) mmol/L Anion Gap 10 mmol/L BUN 18 H (7-17) mg/dL Creatinine 1.07 H (0.52-1.04) mg/dL Est GFR (CKD-EPI)AfAm 62 (>60 ml/min/1.73 sqM) Est GFR (CKD-EPI)NonAf 54 (>60 ml/min/1.73 sqM) Glucose 107 H (74-99) mg/dL Calcium 9.3 (8.4-10.2) mg/dL C-Reactive Protein 5.2 H (<1.0) mg/dL - Radiology Data Radiology results: report reviewed, image reviewed Patient has a minimally displaced, mildly angulated proximal phalanx fracture of the fifth toe as interpreted by me. Awaiting radiology interpretation. Disposition Clinical Impression: Diabetic infection of right foot, Closed fracture of proximal phalanx of lesser toe of right foot Disposition: ADMITTED IP TO THIS HOSP Condition: Stable Is patient prescribed a controlled substance at d/c from ED?: No Referrals: Serina Leblanc MD [Primary Care Provider] - 1-2 days Time of Disposition: 02:26 Decision to Admit Reason: Admit from EC Decision Time: 02:26
[2022-04-06 01:29] LABS: C Reactive Protein 5.2 mg/dL (<1.0); Calcium 9.3 mg/dL (8.4-10.2); Potassium 4.2 mmol/L (3.5-5.1)
[2022-04-06 02:15] LABS: Erythrocyte Sedimentation Rate 36 mm/hr (0-20)
[2022-04-06] MEDS ORDERED: ONDANSETRON 4 MG/2 ML VIAL IVP PRN (02:59)
[2022-04-06] MEDS ORDERED: HYDROmorphone 1 MG/ML 1 ML SYRINGE IVP PRN ×2 (02:59→17:29)
[2022-04-06] MEDS ORDERED: NALOXONE 0.4 MG/ML 1 ML VIAL IV PRN (02:59)
[2022-04-06] MEDS ORDERED: ACETAMINOPHEN TAB 325 MG TAB PO PRN (02:59)
[2022-04-06] MEDS ORDERED: DEXTROSE 50% SYRINGE 50 ML IVP PRN ×2 (03:04)
[2022-04-06] MEDS: HYDROmorphone 0.5 MG/0.5 ML SYRINGE IVP PRN ×5 (03:41→21:00)
[2022-04-06] MEDS: diphenhydrAMINE 50 MG/ML 1 ML VIAL IVP PRN ×5 (03:59→20:59)
[2022-04-06 06:36] LABS: Basophils % (A) 0 %; Eosinophils # (A) 0.1 k/uL (0-0.7); Eosinophils % (A) 1 %; HGB 12.2 gm/dL (11.4-16.0); Hypochromasia Marked; Lymphocytes # (A) 1.3 k/uL (1.0-4.8); Lymphocytes % (A) 14 %; MCH 26.9 pg (25.0-35.0); MCHC 31.3 g/dL (31.0-37.0); MCV 85.8 fL (80.0-100.0); Mean Platelet Volume 8.9; Monocytes # (A) 0.8 k/uL (0-1.0); Monocytes % (A) 9 %; Neutrophils # (A) 6.7 k/uL (1.3-7.7); Neutrophils % (A) 74 %; Platelet Count 216 k/uL (150-450); RBC 4.55 m/uL (3.80-5.40); RDW 15.5 % (11.5-15.5); WBC 9.1 k/uL (3.8-10.6)
[2022-04-06] MEDS: AMPICILLIN-SULBACTAM 3 GM in SODIUM CHLORIDE 0.9% 100 ML IVPB SCH ×2 (06:45→17:07)
[2022-04-06 07:40] LABS: Glucose,Whole Blood 100 mg/dL (70-110)
[2022-04-06] MEDS: INSULIN ASPART (NovoLOG) 100 UNIT/ML VIAL SQ SCH ×4 (08:06→20:57)
[2022-04-06] MEDS: APIXABAN 2.5 MG TABLET PO SCH ×2 (08:07→20:55)
--- NOTE | 2022-04-06 08:09 | P.CNOR ---
History of Present Illness - [facility] Consult date: 04/06/22 History of present illness: The patient is a very pleasant [id number] female with multiple medical problems including type 2 diabetes who is admitted with a right foot fifth toe fracture and overlying cellulitis. According to the patient several days ago she was reaching for a piece of paper when she slipped and fell injuring her right foot. She developed progressively worsening pain and erythema over her foot. She presented to the emergency department last night where x-rays showed a minimally displaced right toe eczema phalanx fracture. She also had cellulitis and was admitted to internal medicine. At the time of my evaluation the patient is complaining of right foot pain as well as chronic back issues. She sees the hospital employed back surgeon Dr. nedra Solares who performed surgery on her this past June. She continues to have difficulty walking and balance although she states she is somewhat better than before surgery. Past Medical History Past Medical History: Atrial Fibrillation, Coronary Artery Disease (CAD), COPD, Diabetes Mellitus, GERD/Reflux, Hyperlipidemia Additional Past Medical History / Comment(s): post polio syndrome, neuropathy, hx. spontaneous pneumothorax, recent diarrhea, bowel resection for sepsis/infection History of Any Multi-Drug Resistant Organisms: ESBL Year Discovered:: 06/29/21 MDRO Source:: ESBL BACK Past Surgical History: Back Surgery, Bowel Resection, Cholecystectomy, Coronary Bypass/CABG, Ear Surgery, Tonsillectomy Additional Past Surgical History / Comment(s): triple bypass 2013, left salpingo-oophorectomy, laminectomy L4 L5x3, ear surgery x 3 Past Anesthesia/Blood Transfusion Reactions: No Reported Reaction Past Psychological History: Anxiety, Depression Additional Psychological History / Comment(s): mild Smoking Status: Former smoker Past Alcohol Use History: Occasional Additional Past Alcohol Use History / Comment(s): quit smoking 2009 Past Drug Use History: None Reported - Past Family History Mother Family Medical History: Cancer Medications and Allergies Home Medications Medication Instructions Recorded Confirmed Type Atorvastatin [Lipitor] 40 mg PO HS@209903/23/16 02/26/22 History DULoxetine HCL [Cymbalta] 60 mg PO HS@209903/23/16 02/26/22 History Metoprolol Tartrate [Lopressor] 50 mg PO BID@0900,209903/23/16 02/26/22 History Omeprazole [PriLOSEC] 20 mg PO DAILY@0600 03/23/16 02/26/22 History Montelukast [Singulair] 10 mg PO HS@2100 05/18/21 02/26/22 History Ubidecarenone [Co Q-10] 100 mg PO DAILY@0900 05/18/21 02/26/22 History Cholecalciferol [Vitamin D3 (25 25 mcg PO DAILY@0900 06/01/21 02/26/22 History Mcg = 1000 Iu)] Amiodarone [Cordarone] 200 mg PO BID@0900,209906/29/21 02/26/22 History Apixaban [Eliquis] 2.5 mg PO BID@0900,2100 06/29/21 02/26/22 History Cyanocobalamin [Vitamin B-12] 1,000 mcg PO DAILY@0900 06/29/21 02/26/22 History Gabapentin 600 mg PO TID 06/29/21 02/26/22 History Insulin Detemir (Levemir) [Levemir] 30 unit SQ HS@2100 ml 07/03/21 02/26/22 Rx HYDROcodone/APAP 10-325MG [[place] 1 tab PO Q6HR PRN 7 Days #12 tab 07/04/21 02/26/22 Rx 10-325] Lactobacillus Acidophilus 1 each PO BID #60 capsule 07/04/21 02/26/22 Rx [Florajen Acidophilus] Allergies Allergy/AdvReac Type Severity Reaction Status Date / Time morphine Allergy rash,itchin Verified 04/05/22 22:33 g Sulfa (Sulfonamide Allergy Rash/Hives Verified 04/05/22 22:33 Antibiotics) surgical susy AdvReac Unknown Uncoded 04/05/22 22:33 Physical Examination The patient is resting comfortably in her bed. She is in minimal distress. She is alert and able to answer questions. Her head is normocephalic and atraumatic. She damaged has nonlabored breathing with symmetric chest expansion. A focused exam of the right lower extremity was conducted. On ins pection of the right foot there is overlying erythema in the fifth toe and over the fourth and fifth MTP joints. There are no open wounds or areas of ulceration. There is no fluctuance or subcu crepitance. There is exquisite tenderness over the fifth toe. Results X-rays of the foot and ankle show a minimally displaced fifth toe proximal phalanx fracture - Labs Labs: Abnormal Lab Results - Last 24 Hours (Table) 04/06/22 04/06/22 Range/Units 00:56 00:56 RDW 15.6 H (11.5-15.5) % ESR 36 H (0-20) mm/hr Chloride 108 H (98-107) mmol/L BUN 18 H (7-17) mg/dL Creatinine 1.07 H (0.52-1.04) mg/dL Glucose 107 H (74-99) mg/dL C-Reactive Protein 5.2 H (<1.0) mg/dL H & H 04/06/22 04/06/22 Range/Units 00:56 06:19 Hgb 12.9 12.2 (11.4-16.0) gm/dL Hct 40.3 39.0 (34.0-46.0) % Result Diagrams: 04/06/22 06:19 04/06/22 00:56 Assessment and Plan Assessment: Right foot fifth toe proximal phalanx fracture, minimally displaced Right foot cellulitis Type 2 diabetes Chronic back pain status post spine surgery by Dr. Angie Solares Plan: I would recommend nonsurgical treatment of the patient's right fifth toe fracture with a hard sole postoperative shoe and weightbearing as tolerated. I have no plans for surgical intervention. She can follow-up as an outpatient either in our office or with her primary care doctor for the toe fracture. In regards to the patient's cellulitis I will defer management to the primary service. If the infection worsens or needs any type of surgical intervention I would recommend consulting the Hospital wound casino cage manager, Dr. Miller. Please call with any questions or concerns. Thank you for the consultation. Time with Patient: Greater than 30
[2022-04-06] MEDS ORDERED: DOXYCYCLINE 100 MG CAP PO SCH (09:00)
[2022-04-06 12:03] LABS: Glucose,Whole Blood 116 mg/dL (70-110)
[2022-04-06 17:09] LABS: Glucose,Whole Blood 84 mg/dL (70-110)
--- NOTE | 2022-04-06 17:25 | P.HPIM ---
History of Present Illness H&P Date: 04/06/22 Anne Marie Robison, who is a 66-year-old female who presented to [facility] emergency room with a chief complaint of right foot pain, patient stated that she had a fall a few days ago and hurt her foot at that time, on the day of admission patient was having worsening pain, and redness in the lateral aspect of her right foot, she decided to come to emergency room. She was evaluated in the emergency room vital examination on presentation revealed a temperature of 99 pulse 66 respiration 15 blood pressure 115/60 pulse ox 100% on room air Laboratory data revealed a white blood count of 9.3 hemoglobin 12.9 platelet count 237 BUN 18 creatinine 1.07 Testing in the emergency room revealed x-ray of the right foot revealed acute nondisplaced transverse fracture across the base of the fifth proximal phalanx Patient was admitted to medical floor for further evaluation and treatment Past Medical History Past Medical History: Atrial Fibrillation, Coronary Artery Disease (CAD), COPD, Diabetes Mellitus, GERD/Reflux, Hyperlipidemia Additional Past Medical History / Comment(s): post polio syndrome, neuropathy, hx. spontaneous pneumothorax, recent diarrhea, bowel resection for sepsis/infection History of Any Multi-Drug Resistant Organisms: ESBL Date of last positivie culture/infection: 06/29/21 MDRO Source:: ESBL BACK Past Surgical History: Back Surgery, Bowel Resection, Cholecystectomy, Coronary Bypass/CABG, Ear Surgery, Tonsillectomy Additional Past Surgical History / Comment(s): triple bypass 2013, left salpingo-oophorectomy, laminectomy L4 L5x3, ear surgery x 3 Past Anesthesia/Blood Transfusion Reactions: No Reported Reaction Past Psychological History: Anxiety, Depression Additional Psychological History / Comment(s): mild Smoking Status: Former smoker Past Alcohol Use History: Occasional Additional Past Alcohol Use History / Comment(s): quit smoking 2009 Past Drug Use History: None Reported - Past Family History Mother Family Medical History: Cancer Medications and Allergies Home Medications Medication Instructions Recorded Confirmed Type Atorvastatin [Lipitor] 40 mg PO HS 03/23/16 04/06/22 History DULoxetine HCL [Cymbalta] 60 mg PO HS 03/23/16 04/06/22 History Metoprolol Tartrate [Lopressor] 50 mg PO BID 03/23/16 04/06/22 History Omeprazole [PriLOSEC] 20 mg PO DAILY 03/23/16 04/06/22 History Montelukast [Singulair] 10 mg PO HS 05/18/21 04/06/22 History Ubidecarenone [Co Q-10] 100 mg PO DAILY 05/18/21 04/06/22 History Cholecalciferol [Vitamin D3 (25 50 mcg PO DAILY 06/01/21 04/06/22 History Mcg = 1000 Iu)] Amiodarone [Cordarone] 200 mg PO BID 06/29/21 04/06/22 History Apixaban [Eliquis] 2.5 mg PO BID 06/29/21 04/06/22 History Cyanocobalamin [Vitamin B-12] 1,000 mcg PO DAILY 06/29/21 04/06/22 History Gabapentin 600 mg PO TID 06/29/21 04/06/22 History HYDROcodone/APAP 10-325MG [[place] 1 tab PO Q6HR PRN 7 Days #12 tab 07/04/21 04/06/22 Rx 10-325] Albuterol Sulfate [Albuterol 2 puff PO RT-Q4H PRN 04/06/22 04/06/22 History Sulfate Hfa] Budesonide-Formot 160-4.5 Mcg 2 puff INHALATION RT-BID 04/06/22 04/06/22 History [Symbicort 160-4.5 Mcg Inhaler] Insulin Glargine,Hum.rec.anlog 40 units SQ DAILY 04/06/22 04/06/22 History [Lantus Solostar Pen] Lactobacillus Acidophilus 1 cap PO BID 04/06/22 04/06/22 History [Florajen Acidophilus] Allergies Allergy/AdvReac Type Severity Reaction Status Date / Time morphine Allergy rash,itchin Verified 04/06/22 08:30 g Sulfa (Sulfonamide Allergy Rash/Hives Verified 04/06/22 08:30 Antibiotics) surgical susy AdvReac Unknown Uncoded 04/06/22 08:30 Physical Exam Vitals: Vital Signs Temp Pulse Pulse Resp BP BP Pulse Ox 04/06/22 15:00 97.5 F L 66 16 110/57 93 L 04/06/22 07:00 98 F 70 16 116/57 91 L 04/06/22 05:17 96.6 F L 66 18 123/58 94 L 04/06/22 04:25 63 97 04/06/22 04:06 66 16 117/58 96 04/06/22 03:37 92 L 04/06/22 03:34 87 L 04/06/22 02:45 63 18 143/75 92 L 04/05/22 22:34 99 F 66 15 115/60 100 Intake and Output 04/06/22 04/06/22 04/06/22 06:59 14:59 22:59 Intake Total 358 Balance 358 Intake: Oral 358 Other: # Voids 1 3 Weight 86.183 kg In general patient is alert and oriented x 3 in no distress HEENT head normocephalic and atraumatic Neck is supple no JVD no goiter no lymphadenopathy no carotid bruit Chest examination is clear to auscultation no crackles no wheezing Cardiac exam reveals regular heart sounds S1 and S2 no gallops no murmurs Abdomen is soft nontender no organomegaly with normal bowel sounds Extremity exam reveals no edema no cyanosis or clubbing, there is erythema with tenderness in the right foot on the lateral aspect just below the fourth and fifth toes Neurological examination reveals no gross focal deficits Results CBC & Chem 7: 04/06/22 06:19 04/06/22 00:56 Labs: Abnormal Lab Results - Last 24 Hours (Table) 04/06/22 04/06/22 04/06/22 Range/Units 00:56 00:56 06:19 RDW 15.6 H (11.5-15.5) % ESR 36 H (0-20) mm/hr Chloride 108 H (98-107) mmol/L BUN 18 H (7-17) mg/dL Creatinine 1.07 H (0.52-1.04) mg/dL Glucose 107 H (74-99) mg/dL POC Glucose (mg/dL) (70-110) mg/dL Hemoglobin A1c 6.1 H (0.0-6.0) % C-Reactive Protein 5.2 H (<1.0) mg/dL 04/06/22 Range/Units 12:00 RDW (11.5-15.5) % ESR (0-20) mm/hr Chloride (98-107) mmol/L BUN (7-17) mg/dL Creatinine (0.52-1.04) mg/dL Glucose (74-99) mg/dL POC Glucose (mg/dL) 116 H (70-110) mg/dL Hemoglobin A1c (0.0-6.0) % C-Reactive Protein (<1.0) mg/dL Thrombosis Risk Factor Assmnt - Choose All That Apply Any of the Below Risk Factors Present?: Yes Each Factor Represents 1 point: Abnormal pulmonary function (COPD), Obesity (BMI >25) Other Risk Factors: Yes Each Risk Factor Represents 2 Points: Age 61-74 years Other congenital or acquired thrombophilia - If yes, enter type in comment: No Thrombosis Risk Factor Assessment Total Risk Factor Score: 4 Thrombosis Risk Factor Assessment Level: Moderate Risk Assessment and Plan Plan: Acute nondisplaced fracture across the base of the right fifth proximal phalanx Right foot cellulitis Dehydration with prerenal azotemia Underlying history of coronary artery disease Underlying history of hypertension Underlying history of diabetes mellitus type 2 Underlying history of COPD without exacerbation Underlying history of paroxysmal atrial fibrillation maintained on Eliquis At this time patient was admitted to medical floor Home medications reviewed and reordered She was started on IV antibiotic Unasyn Orthopedic surgery consultation requested in regard to toe fracture Infectious disease consultation requested in regard to foot cellulitis Pain management suboptimal per patient will increase diet no added to 1 mg every 4 hours when necessary For DVT prophylaxis patient is on Eliquis
[2022-04-06] MEDS: HYDROcodone/APAP 10-325MG 1 EACH TAB PO PRN (19:04)
[2022-04-06] MEDS: SYMBICORT 160-4.5 MCG INHALER INHALATION SCH (20:12)
[2022-04-06 20:46] LABS: Glucose,Whole Blood 134 mg/dL (70-110)
[2022-04-06] MEDS: ATORVASTATIN 40 MG TAB PO SCH (20:55)
[2022-04-06] MEDS: DULoxetine HCL 60 MG CAPSULE.DR PO SCH (20:55)
[2022-04-06] MEDS: METOPROLOL TARTRATE 50 MG TAB PO SCH (20:55)
[2022-04-06] MEDS: GABAPENTIN 300 MG CAP PO SCH (20:55)
[2022-04-06] MEDS: MONTELUKAST 10 MG TAB PO SCH (20:55)
[2022-04-06] MEDS: AMIODARONE 200 MG TAB PO SCH (20:56)
[2022-04-06] MEDS: LACTOBACILLUS ACIDOPH & BULGAR 1 EACH PACKET PO SCH (20:57)
--- NOTE | 2022-04-06 22:27 | P.CONS ---
History of Present Illness - Reason for Consult Consult date: 04/06/22 Diabetic foot infection Requesting physician: Caro Maddox - Chief Complaint Right foot pain swelling and redness x few days - History of Present Illness Patient is a 66-year-old female with a past medical history for atrial fibrillation coronary disease COPD diabetes mellitus hyperlipidemia patient presenting to the ER for evaluation of pain to the right foot patient mention she was reaching for a piece of paper few days ago when she fell injuring her foot 2 days later she noticed to having increasing pain she described the pain to be sharp and throbbing almost 7-8 out of 10 and no radiation, subsequently patient noticed development of the redness with the symptom the patient presented to the hospital on arrival to the ER the patient did have low-grade fever of 99 degree for an height patient did have normal white count uric acid was normal patient did have a x-ray of the foot which did shows acute nondisplaced transverse fracture across the base of the fifth proximal phalanx with concern for cellulitis the patient was started on Unasyn 3 g every 8 hours infectious disease was consulted for further management of antibiotic therapy Review of Systems Positive point has been mentioned in the HPI rest of the systems are negative Past Medical History Past Medical History: Atrial Fibrillation, Coronary Artery Disease (CAD), COPD, Diabetes Mellitus, GERD/Reflux, Hyperlipidemia Additional Past Medical History / Comment(s): post polio syndrome, neuropathy, hx. spontaneous pneumothorax, recent diarrhea, bowel resection for sepsis/infection History of Any Multi-Drug Resistant Organisms: ESBL Year Discovered:: 06/29/21 MDRO Source:: ESBL BACK Past Surgical History: Back Surgery, Bowel Resection, Cholecystectomy, Coronary Bypass/CABG, Ear Surgery, Tonsillectomy Additional Past Surgical History / Comment(s): triple bypass 2013, left salpingo-oophorectomy, laminectomy L4 L5x3, ear surgery x 3 Past Anesthesia/Blood Transfusion Reactions: No Reported Reaction Past Psychological History: Anxiety, Depression Additional Psychological History / Comment(s): mild Smoking Status: Former smoker Past Alcohol Use History: Occasional Additional Past Alcohol Use History / Comment(s): quit smoking 2009 Past Drug Use History: None Reported - Past Family History Mother Family Medical History: Cancer Medications and Allergies Home Medications Medication Instructions Recorded Confirmed Type Atorvastatin [Lipitor] 40 mg PO HS 03/23/16 04/06/22 History DULoxetine HCL [Cymbalta] 60 mg PO HS 03/23/16 04/06/22 History Metoprolol Tartrate [Lopressor] 50 mg PO BID 03/23/16 04/06/22 History Omeprazole [PriLOSEC] 20 mg PO DAILY 03/23/16 04/06/22 History Montelukast [Singulair] 10 mg PO HS 05/18/21 04/06/22 History Ubidecarenone [Co Q-10] 100 mg PO DAILY 05/18/21 04/06/22 History Cholecalciferol [Vitamin D3 (25 50 mcg PO DAILY 06/01/21 04/06/22 History Mcg = 1000 Iu)] Amiodarone [Cordarone] 200 mg PO BID 06/29/21 04/06/22 History Apixaban [Eliquis] 2.5 mg PO BID 06/29/21 04/06/22 History Cyanocobalamin [Vitamin B-12] 1,000 mcg PO DAILY 06/29/21 04/06/22 History Gabapentin 600 mg PO TID 06/29/21 04/06/22 History HYDROcodone/APAP 10-325MG [[place] 1 tab PO Q6HR PRN 7 Days #12 tab 07/04/21 04/06/22 Rx 10-325] Albuterol Sulfate [Albuterol 2 puff PO RT-Q4H PRN 04/06/22 04/06/22 History Sulfate Hfa] Budesonide-Formot 160-4.5 Mcg 2 puff INHALATION RT-BID 04/06/22 04/06/22 History [Symbicort 160-4.5 Mcg Inhaler] Insulin Glargine,Hum.rec.anlog 40 units SQ DAILY 04/06/22 04/06/22 History [Lantus Solostar Pen] Lactobacillus Acidophilus 1 cap PO BID 04/06/22 04/06/22 History [Florajen Acidophilus] Allergies Allergy/AdvReac Type Severity Reaction Status Date / Time morphine Allergy rash,itchin Verified 04/06/22 08:30 g Sulfa (Sulfonamide Allergy Rash/Hives Verified 04/06/22 08:30 Antibiotics) surgical susy AdvReac Unknown Uncoded 04/06/22 08:30 Physical Exam Vitals: Vital Signs Temp Pulse Pulse Resp BP BP Pulse Ox 04/06/22 15:00 97.5 F L 66 16 110/57 93 L 04/06/22 07:00 98 F 70 16 116/57 91 L 04/06/22 05:17 96.6 F L 66 18 123/58 94 L 04/06/22 04:25 63 97 04/06/22 04:06 66 16 117/58 96 04/06/22 03:37 92 L 04/06/22 03:34 87 L 04/06/22 02:45 63 18 143/75 92 L 04/05/22 22:34 99 F 66 15 115/60 100 Intake and Output 04/06/22 04/06/22 04/06/22 06:59 14:59 22:59 Intake Total 358 Balance 358 Intake: Oral 358 Other: # Voids 1 3 Weight 86.183 kg GENERAL DESCRIPTION: Elderly female lying in bed, no distress. No tachypnea or accessory muscle of respiration use. HEENT: Shows Pallor , no scleral icterus. Oral mucous membrane is dry. No pharyngeal erythema or thrush NECK: Trachea central, no thyromegaly. LUNGS: Unlabored breathing. Clear to auscultation anteriorly. No wheeze or crackle. HEART: S1, S2, regular rate and rhythm. No loud murmur ABDOMEN: Soft, no tenderness , guarding or rigidity, no organomegaly EXTREMITIES: Right foot at the base of the fifth toe did have swelling redness or warmth and tender to touch SKIN: No rash, no masses palpable. NEUROLOGICAL: The patient is awake, alert, oriented x3, mood and affect normal. Results CBC & Chem 7: 04/06/22 06:19 04/06/22 00:56 Labs: Abnormal Lab Results - Last 24 Hours (Table) 04/06/22 04/06/22 04/06/22 Range/Units 00:56 00:56 06:19 RDW 15.6 H (11.5-15.5) % ESR 36 H (0-20) mm/hr Chloride 108 H (98-107) mmol/L BUN 18 H (7-17) mg/dL Creatinine 1.07 H (0.52-1.04) mg/dL Glucose 107 H (74-99) mg/dL POC Glucose (mg/dL) (70-110) mg/dL Hemoglobin A1c 6.1 H (0.0-6.0) % C-Reactive Protein 5.2 H (<1.0) mg/dL 04/06/22 Range/Units 12:00 RDW (11.5-15.5) % ESR (0-20) mm/hr Chloride (98-107) mmol/L BUN (7-17) mg/dL Creatinine (0.52-1.04) mg/dL Glucose (74-99) mg/dL POC Glucose (mg/dL) 116 H (70-110) mg/dL Hemoglobin A1c (0.0-6.0) % C-Reactive Protein (<1.0) mg/dL Assessment and Plan (1) Diabetic infection of right foot Current Visit: Yes Status: Acute Code(s): E11.628 - TYPE 2 DIABETES MELLITUS WITH OTHER SKIN COMPLICATIONS; L08.9 - LOCAL INFECTION OF THE SKIN AND SUBCUTANEOUS TISSUE, UNSP SNOMED Code(s): 46337319 Plan: 1patient presented to hospital with right foot pain in this patient who did have a history of trauma and evidence of right fifth toe fracture however the patient also have associated cellulitis there was evidence of swelling and redness on the dorsum aspect of the right foot on the lateral aspect however currently with open wound blister or any drainage. 2we will increase the dose of Unasyn to 3 g every 6 hours 3-Marked area of the redness We will follow on clinical condition and cultures to further adjust medication if needed Thank you for this consultation will follow this patient along with you
[2022-04-07] MEDS: AMPICILLIN-SULBACTAM 3 GM in SODIUM CHLORIDE 0.9% 100 ML IVPB SCH ×5 (00:26→22:39)
[2022-04-07] MEDS: HYDROcodone/APAP 10-325MG 1 EACH TAB PO PRN ×2 (01:15→09:20)
[2022-04-07] MEDS: PANTOPRAZOLE 40 MG TABLET PO SCH (06:06)
[2022-04-07] MEDS: diphenhydrAMINE 50 MG/ML 1 ML VIAL IVP PRN (06:24)
[2022-04-07] MEDS: HYDROmorphone 0.5 MG/0.5 ML SYRINGE IVP PRN ×3 (06:24→22:15)
[2022-04-07 07:03] LABS: Glucose,Whole Blood 95 mg/dL (70-110)
[2022-04-07] MEDS: INSULIN ASPART (NovoLOG) 100 UNIT/ML VIAL SQ SCH ×4 (07:13→22:20)
[2022-04-07] MEDS: SYMBICORT 160-4.5 MCG INHALER INHALATION SCH ×2 (08:19→19:36)
[2022-04-07] MEDS ORDERED: NON FORMULARY DRUG (Ubidecarenone [Co Q-10] 100 MG Capsule) PO SCH (09:00)
[2022-04-07] MEDS: LACTOBACILLUS ACIDOPH & BULGAR 1 EACH PACKET PO SCH ×2 (09:15→22:15)
[2022-04-07] MEDS: GABAPENTIN 300 MG CAP PO SCH ×3 (09:15→22:14)
[2022-04-07] MEDS: METOPROLOL TARTRATE 50 MG TAB PO SCH ×2 (09:16→22:14)
[2022-04-07] MEDS: APIXABAN 2.5 MG TABLET PO SCH ×2 (09:16→22:14)
[2022-04-07] MEDS: AMIODARONE 200 MG TAB PO SCH ×2 (09:16→22:14)
[2022-04-07] MEDS: CHOLECALCIFEROL 25 MCG (1000 IU) TABLET PO SCH (09:16)
[2022-04-07] MEDS: CYANOCOBALAMIN 500 MCG TAB PO SCH (09:23)
--- NOTE | 2022-04-07 10:26 | P.PN ---
Subjective Progress Note Date: 04/07/22 Anne Marie Robison, who is a 66-year-old female who presented to [facility] emergency room with a chief complaint of right foot pain, patient stated that she had a fall a few days ago and hurt her foot at that time, on the day of admission patient was having worsening pain, and redness in the lateral aspect of her right foot, she decided to come to emergency room. She was evaluated in the emergency room vital examination on presentation revealed a temperature of 99 pulse 66 respiration 15 blood pressure 115/60 pulse ox 100% on room air Laboratory data revealed a white blood count of 9.3 hemoglobin 12.9 platelet count 237 BUN 18 creatinine 1.07 Testing in the emergency room revealed x-ray of the right foot revealed acute nondisplaced transverse fracture across the base of the fifth proximal phalanx Patient was admitted to medical floor for further evaluation and treatment On 04/07/2022 to patient's alert and oriented 3. Patient was evaluated by orthopedic services recommendations for Hard sole shoe and weightbearing as tolerated no surgical intervention planned at this time. Patient remains on IV Unasyn per ID recommendations. Patient denies chest pain or shortness of b reath. Patient denies nausea vomiting or diarrhea. Patient denies any urinary burning or frequency. Objective - Vital Signs Vital signs: Vital Signs Temp 98 F 04/07/22 07:00 Pulse 63 04/07/22 07:00 Resp 20 04/07/22 07:00 BP 102/45 04/07/22 07:00 Pulse Ox 92 L 04/07/22 07:00 FiO2 Intake & Output 04/06/22 04/07/22 04/07/22 18:59 06:59 18:59 Intake Total 476 120 Balance 476 120 Intake: Oral 476 120 Other: # Voids 3 1 - Exam In general patient is alert and oriented x 3 in no distress HEENT head normocephalic and atraumatic Neck is supple no JVD no goiter no lymphadenopathy no carotid bruit Chest examination is clear to auscultation no crackles no wheezing Cardiac exam reveals regular heart sounds S1 and S2 no gallops no murmurs Abdomen is soft nontender no organomegaly with normal bowel sounds Extremity exam reveals no edema no cyanosis or clubbing, there is erythema with tenderness in the right foot on the lateral aspect just below the fourth and fifth toes Neurological examination reveals no gross focal deficits - Labs CBC & Chem 7: 04/06/22 06:19 04/06/22 00:56 Labs: Abnormal Lab Results - Last 24 Hours (Table) 04/06/22 04/06/22 04/06/22 Range/Units 06:19 12:00 20:46 POC Glucose (mg/dL) 116 H 134 H (70-110) mg/dL Hemoglobin A1c 6.1 H (0.0-6.0) % Assessment and Plan Plan: Acute nondisplaced fracture across the base of the right fifth proximal phalanx Right foot cellulitis Dehydration with prerenal azotemia Underlying history of coronary artery disease Underlying history of hypertension Underlying history of diabetes mellitus type 2 Underlying history of COPD without exacerbation Underlying history of paroxysmal atrial fibrillation maintained on Eliquis At this time patient was admitted to medical floor Home medications reviewed and reordered She was started on IV antibiotic Unasyn Per orthopedic services no surgical intervention planned at this time Infectious disease consultation requested in regard to foot cellulitis Pain management suboptimal per patient will increase diet no added to 1 mg every 4 hours when necessary For DVT prophylaxis patient is on Eliquis
[2022-04-07 12:18] LABS: Glucose,Whole Blood 77 mg/dL (70-110)
[2022-04-07] MEDS: INSULIN DETEMIR (LEVEMIR) 100 UNIT/ML SYR SQ SCH (12:22)
[2022-04-07 12:36] VITALS: BMI 33.6
[2022-04-07 14:16] VITALS: RESP 18
[2022-04-07 17:16] LABS: Glucose,Whole Blood 90 mg/dL (70-110)
[2022-04-07] MEDS: MONTELUKAST 10 MG TAB PO SCH (22:14)
[2022-04-07] MEDS: ATORVASTATIN 40 MG TAB PO SCH (22:14)
[2022-04-07] MEDS: DULoxetine HCL 60 MG CAPSULE.DR PO SCH (22:14)
[2022-04-07 22:18] LABS: Glucose,Whole Blood 140 mg/dL (70-110)
--- NOTE | 2022-04-07 23:06 | P.PN ---
Subjective Progress Note Date: 04/07/22 Principal diagnosis: Right foot cellulitis Patient is a 66-year-old female with a past medical history for atrial fibrillation coronary disease COPD diabetes mellitus hyperlipidemia patient presenting to the ER for evaluation of pain to the right foot, patient did have evidence of acute nondisplaced fracture at the base of the a monthly fifth phalanx and also diagnosed with a cellulitis. On today's evaluation that is 04/07/2022, the patient denies having any fever or any chills, the patient pain to the right foot has slightly decreased in intensity currently with no open wound or any drainage no chest pain shortness of breath or cough no abdominal pain or diarrhea Objective - Vital Signs Vital signs: Vital Signs Temp 98 F 04/07/22 07:00 Pulse 63 04/07/22 07:00 Resp 20 04/07/22 07:00 BP 102/45 04/07/22 07:00 Pulse Ox 92 L 04/07/22 07:00 FiO2 Intake & Output 04/06/22 04/07/22 04/07/22 18:59 06:59 18:59 Intake Total 476 120 Balance 476 120 Weight 86.183 kg Intake: Oral 476 120 Other: # Voids 3 1 - Exam GENERAL DESCRIPTION: An elderly female lying in bed in no distress RESPIRATORY SYSTEM: Unlabored breathing , decreased breath sounds at bases HEART: S1 S2 regular rate and rhythm , ABDOMEN: Soft , no tenderness EXTREMITIES: Right foot swelling and redness is slightly decreased still warm and tender to touch - Labs CBC & Chem 7: 04/06/22 06:19 04/06/22 00:56 Labs: Abnormal Lab Results - Last 24 Hours (Table) 04/06/22 04/06/22 Range/Units 06:19 20:46 POC Glucose (mg/dL) 134 H (70-110) mg/dL Hemoglobin A1c 6.1 H (0.0-6.0) % Assessment and Plan (1) Diabetic infection of right foot Current Visit: Yes Status: Acute Code(s): E11.628 - TYPE 2 DIABETES MELLITUS WITH OTHER SKIN COMPLICATIONS; L08.9 - LOCAL INFECTION OF THE SKIN AND SUBCUTANEOUS TISSUE, UNSP SNOMED Code(s): 18734374 Plan: 1patient presented to hospital with right foot pain in this patient who did have a history of trauma and evidence of right fifth toe fracture however the patient also have associated cellulitis there was evidence of swelling and red ness on the dorsum aspect of the right foot on the lateral aspect however currently with open wound blister or any drainage. 2patient to continue with Unasyn to 3 g every 6 hours and monitor clinical course closely Time with Patient: Less than 30
[2022-04-08] MEDS: ALBUTEROL NEBULIZED 2.5 MG/3 ML INHALATION PRN ×2 (02:04→08:58)
[2022-04-08] MEDS: HYDROcodone/APAP 10-325MG 1 EACH TAB PO PRN (03:56)
[2022-04-08] MEDS: AMPICILLIN-SULBACTAM 3 GM in SODIUM CHLORIDE 0.9% 100 ML IVPB SCH (06:20)
[2022-04-08] MEDS: INSULIN ASPART (NovoLOG) 100 UNIT/ML VIAL SQ SCH (06:25)
[2022-04-08] MEDS: INSULIN DETEMIR (LEVEMIR) 100 UNIT/ML SYR SQ SCH (06:25)
[2022-04-08 06:26] LABS: Glucose,Whole Blood 89 mg/dL (70-110)
[2022-04-08] MEDS: PANTOPRAZOLE 40 MG TABLET PO SCH (06:32)
[2022-04-08 07:54] VITALS: BP 133/57; TEMP 98.4
[2022-04-08] MEDS: METOPROLOL TARTRATE 50 MG TAB PO SCH (08:43)
[2022-04-08] MEDS: CHOLECALCIFEROL 25 MCG (1000 IU) TABLET PO SCH (08:43)
[2022-04-08] MEDS: CYANOCOBALAMIN 500 MCG TAB PO SCH (08:44)
[2022-04-08] MEDS: APIXABAN 2.5 MG TABLET PO SCH (08:44)
[2022-04-08] MEDS: AMIODARONE 200 MG TAB PO SCH (08:44)
[2022-04-08] MEDS: GABAPENTIN 300 MG CAP PO SCH (08:46)
[2022-04-08 08:58] LABS: Basophils # (A) 0.02 X 10*3/uL (0.00-0.10); Basophils % (A) 0.2 %; Eosinophils # (A) 0.13 X 10*3/uL (0.04-0.35); Eosinophils % (A) 1.5 %; HCT 35.4 % (37.2-46.3); HGB 10.6 g/dL (12.0-15.0); Immature Grans, Automated 0.8 %; Lymphocytes # (A) 1.01 X 10*3/uL (0.90-5.00); Lymphocytes % (A) 11.8 %; MCH 25.5 pg (27.0-32.0); MCHC 29.9 g/dL (32.0-37.0); MCV 85.3 fL (80.0-97.0); Mean Platelet Volume 11.2 fL (9.5-12.2); Monocytes % (A) 10.5 %; NRBC Per 100 WBC 0 /100 WBCS (0.0-0.0); Neutrophils # (A) 6.46 X 10*3/uL (1.80-7.70); Neutrophils % (A) 75.2 %; Platelet Count 215 X 10*3/uL (140-440); RBC 4.15 X 10*6/uL (4.10-5.20); RDW 16.5 % (11.5-14.5); WBC 8.59 X 10*3/uL (4.50-10.00)
[2022-04-08] MEDS: SYMBICORT 160-4.5 MCG INHALER INHALATION SCH (08:58)
[2022-04-08 09:04] VITALS: PULSE 80
[2022-04-08 09:11] LABS: African American GFR (CKD) 81.9 (60.0-200.0); Albumin 3.1 g/dL (3.8-4.9); Albumin/Globulin Ratio 1.16 (1.60-3.17); BUN/Creat Ratio 19.72 Ratio (12.00-20.00); Blood Urea Nitrogen 16.7 mg/dL (9.0-27.0); Carbon Dioxide 21.6 mmol/L (20.0-27.5); Globulin 2.7 g/dL (1.6-3.3); Non-African American GFR(CKD) 70.7 (60.0-200.0); Potassium 4.6 mmol/L (3.5-5.5); Total Bilirubin 0.4 mg/dL (0.30-1.20); Total Protein 5.8 g/dL (6.2-8.2)
--- NOTE | 2022-04-08 10:22 | P.DS ---
Providers Date of admission: 04/06/22 03:46 Expected date of discharge: 04/08/22 Attending physician: Caro Maddox Consults: 04/06/22 02:59 Consult Physician Urgent Consulting Provider: Etienne Cage Consult Reason/Comments: Right fifth toe fracture-- overlying cellulitis Do you want consulting provider notified?: Yes, Notify in am 04/06/22 16:37 Consult Physician Routine Consulting Provider: Kayla Izquierdo Consult Reason/Comments: diabetic foot ulcer Do you want consulting provider notified?: Yes Primary care physician: Serina Leblanc Hospital Course: Discharge diagnosis Acute nondisplaced fracture across the base of the right fifth proximal phalanx Right foot cellulitis Dehydration with prerenal azotemia Underlying history of coronary artery disease Underlying history of hypertension Underlying history of diabetes mellitus type 2 Underlying history of COPD without exacerbation Underlying history of paroxysmal atrial fibrillation maintained on Eliquis Elevated liver enzymes. This does appear to be an ongoing chronic issue for patient will order repeat labs for 4 days and recommend follow-up with Dr. Leblanc for further management Hospital course Anne Marie Robison, who is a 66-year-old female who presented to [facility] emergency room with a chief complaint of right foot pain, patient stated that she had a fall a few days ago and hurt her foot at that time, on the day of admission patient was having worsening pain, and redness in the lateral aspect of her right foot, she decided to come to emergency room. She was evaluated in the emergency room vital examination on presentation revealed a temperature of 99 pulse 66 respiration 15 blood pressure 115/60 pulse ox 100% on room air Laboratory data revealed a white blood count of 9.3 hemoglobin 12.9 platelet count 237 BUN 18 creatinine 1.07 Testing in the emergency room revealed x-ray of the right foot revealed acute nondisplaced transverse fracture across the base of the fifth proximal phalanx Patient was admitted to medical floor for further evaluation and treatment On 04/07/2022 to patient's alert and oriented 3. Patient was evaluated by orthopedic services recommendations for Hard sole shoe and weightbearing as tolerated no surgical intervention planned at this time. Patient remains on IV Unasyn per ID recommendations. Patient denies chest pain or shortness of breath. Patient denies nausea vomiting or diarrhea. Patient denies any urinary burning or frequency. On 04/08/2022 patient is alert and oriented 3. Patient was evaluated by mention recommended at this time. Discussed case with infectious disease Dr. patient may be DC'd on Augmentin for 10 days. Patient exercised she is very e ager to be DC'd home. Patient reports improvement with pain and redness. Patient denies chest pain or shortness of breath. Patient denies nausea vomiting or diarrhea. Patient noted to have slightly elevated liver enzymes. Patient will need follow-up with PCP Dr. Leblanc and further monitoring. Patient Condition at Discharge: Stable Plan - Discharge Summary New Discharge Prescriptions: No Action Omeprazole [PriLOSEC] 20 mg PO DAILY DULoxetine HCL [Cymbalta] 60 mg PO HS Atorvastatin [Lipitor] 40 mg PO HS Metoprolol Tartrate [Lopressor] 50 mg PO BID Apixaban [Eliquis] 2.5 mg PO BID Amiodarone [Cordarone] 200 mg PO BID Cyanocobalamin [Vitamin B-12] 1,000 mcg PO DAILY HYDROcodone/APAP 10-325MG [Villas 10-325] 1 tab PO Q6HR PRN 7 Days #12 tab PRN Reason: Pain Budesonide-Formot 160-4.5 Mcg [Symbicort 160-4.5 Mcg Inhaler] 2 puff INHALATION RT-BID Albuterol Sulfate [Albuterol Sulfate Hfa] 2 puff PO RT-Q4H PRN PRN Reason: Shortness Of Breath Lactobacillus Acidophilus [Florajen Acidophilus] 1 cap PO BID Insulin Glargine,Hum.rec.anlog [Lantus Solostar Pen] 40 units SQ DAILY Ubidecarenone [Co Q-10] 100 mg PO DAILY Montelukast [Singulair] 10 mg PO HS Cholecalciferol [Vitamin D3 (25 Mcg = 1000 Iu)] 50 mcg PO DAILY Gabapentin 600 mg PO TID Discharge Medication List Atorvastatin [Lipitor] 40 mg PO HS 03/23/16 [History] DULoxetine HCL [Cymbalta] 60 mg PO HS 03/23/16 [History] Metoprolol Tartrate [Lopressor] 50 mg PO BID 03/23/16 [History] Omeprazole [PriLOSEC] 20 mg PO DAILY 03/23/16 [History] Montelukast [Singulair] 10 mg PO HS 05/18/21 [History] Ubidecarenone [Co Q-10] 100 mg PO DAILY 05/18/21 [History] Cholecalciferol [Vitamin D3 (25 Mcg = 1000 Iu)] 50 mcg PO DAILY 06/01/21 [History] Amiodarone [Cordarone] 200 mg PO BID 06/29/21 [History] Apixaban [Eliquis] 2.5 mg PO BID 06/29/21 [History] Cyanocobalamin [Vitamin B-12] 1,000 mcg PO DAILY 06/29/21 [History] Gabapentin 600 mg PO TID 06/29/21 [History] HYDROcodone/APAP 10-325MG [Villas 10-325] 1 tab PO Q6HR PRN 7 Days #12 tab 07/04/21 [Rx] Albuterol Sulfate [Albuterol Sulfate Hfa] 2 puff PO RT-Q4H PRN 04/06/22 [History] Budesonide-Formot 160-4.5 Mcg [Symbicort 160-4.5 Mcg Inhaler] 2 puff INHALATION RT-BID 04/06/22 [History] Insulin Glargine,Hum.rec.anlog [Lantus Solostar Pen] 40 units SQ DAILY 04/06/22 [History] Lactobacillus Acidophilus [Florajen Acidophilus] 1 cap PO BID 04/06/22 [History] Follow up Appointment(s)/Referral(s): Serina Leblanc MD [Primary Care Provider] - 1-2 days
--- NOTE | 2022-04-08 15:17 | P.PN ---
Subjective Progress Note Date: 04/08/22 Principal diagnosis: Right foot cellulitis Patient is a 66-year-old female with a past medical history for atrial fibrillation coronary disease COPD diabetes mellitus hyperlipidemia patient presenting to the ER for evaluation of pain to the right foot, patient did have evidence of acute nondisplaced fracture at the base of the a monthly fifth phalanx and also diagnosed with a cellulitis. On today's evaluation that is 04/08/2022, the patient remains to be afebrile, t he patient pain as well as swelling and redness to the right foot has decreased in intensity , patient denies chest pain shortness of breath or cough no abdominal pain or diarrhea Objective - Vital Signs Vital signs: Vital Signs Temp 98.4 F 04/08/22 07:00 Pulse 80 04/08/22 09:11 Resp 18 04/08/22 07:00 BP 133/57 04/08/22 07:00 Pulse Ox 94 L 04/08/22 07:00 FiO2 Intake & Output 04/07/22 04/08/22 04/08/22 18:59 06:59 18:59 Intake Total 360 240 Output Total 400 Balance -40 240 Weight 86.183 kg Intake: Oral 360 240 Output: Urine 400 Other: Voiding Method Bedside Commode # Voids 1 - Exam GENERAL DESCRIPTION: An elderly female lying in bed in no distress RESPIRATORY SYSTEM: Unlabored breathing , decreased breath sounds at bases HEART: S1 S2 regular rate and rhythm , ABDOMEN: Soft , no tenderness EXTREMITIES: Right foot swelling and redness has decreased in intensity - Labs CBC & Chem 7: 04/08/22 06:27 04/08/22 06:27 Labs: Abnormal Lab Results - Last 24 Hours (Table) 04/07/22 04/08/22 04/08/22 Range/Units 22:17 06:27 06:27 Hgb 10.6 L (12.0-15.0) g/dL Hct 35.4 L (37.2-46.3) % MCH 25.5 L (27.0-32.0) pg MCHC 29.9 L (32.0-37.0) g/dL RDW 16.5 H (11.5-14.5) % Immature Gran # 0.07 H (0.00-0.04) X 10*3/uL POC Glucose (mg/dL) 140 H (70-110) mg/dL AST 81 H (13-35) U/L ALT 52 H (8-44) U/L Alkaline Phosphatase 147 H (41-126) U/L Total Protein 5.8 L (6.2-8.2) g/dL Albumin 3.1 L (3.8-4.9) g/dL Albumin/Globulin Ratio 1.16 L (1.60-3.17) g/dL Assessment and Plan (1) Diabetic infection of right foot Status: Acute Code(s): E11.628 - TYPE 2 DIABETES MELLITUS WITH OTHER SKIN COMPLICATIONS; L08.9 - LOCAL INFECTION OF THE SKIN AND SUBCUTANEOUS TISSUE, UNSP SNOMED Code(s): 85254168 Plan: 1patient presented to hospital with right foot pain in this patient who did have a history of trauma and evidence of right fifth toe fracture however the patient also have associated cellulitis there was evidence of swelling and redness on the dorsum aspect of the right foot on the lateral aspect however c urrently with open wound blister or any drainage. 2patient has shown clinical improvement with Unasyn to 3 g every 6 hours and will finish therapy with oral Augmentin 7-10 days and close outpatient follow- up and discuss with the [employer] for admitting team working on discharge Time with Patient: Less than 30
== END 2022-04-08 12:38 | disposition home or self-care (01) ==
LOC: EC 21:55 → 6NMEDSUR 04-06 03:46
PROVIDERS: ADMIT Internal Medicine; ATTEND Internal Medicine
DX: S92.511A Displaced fracture of proximal phalanx of right lesser toe(s), initial encounter for closed fracture (principal); E11.628 Type 2 diabetes mellitus with other skin complications; E11.621 Type 2 diabetes mellitus with foot ulcer; L97.509 Non-pressure chronic ulcer of other part of unspecified foot with unspecified severity; L03.115 Cellulitis of right lower limb; E86.0 Dehydration; I10 Essential (primary) hypertension; I48.0 Paroxysmal atrial fibrillation; M77.31 Calcaneal spur, right foot; R74.8 Abnormal levels of other serum enzymes; I48.91 Unspecified atrial fibrillation; F41.9 Anxiety disorder, unspecified; F32.A Depression, unspecified; I25.10 Atherosclerotic heart disease of native coronary artery without angina pectoris; J44.9 Chronic obstructive pulmonary disease, unspecified; K21.9 Gastro-esophageal reflux disease without esophagitis; E78.5 Hyperlipidemia, unspecified; M54.9 Dorsalgia, unspecified; G89.29 Other chronic pain; G14 Postpolio syndrome; E11.40 Type 2 diabetes mellitus with diabetic neuropathy, unspecified; Z90.49 Acquired absence of other specified parts of digestive tract; Z88.5 Allergy status to narcotic agent; Z79.4 Long term (current) use of insulin; Z88.2 Allergy status to sulfonamides; Z79.899 Other long term (current) drug therapy; Z79.01 Long term (current) use of anticoagulants; Z95.1 Presence of aortocoronary bypass graft; Z87.891 Personal history of nicotine dependence; Z79.51 Long term (current) use of inhaled steroids; Z80.9 Family history of malignant neoplasm, unspecified; W01.0XXA Fall on same level from slipping, tripping and stumbling without subsequent striking against object, initial encounter
CPT/HCPCS: 96361 ×2; 96366 ×4; 96376 ×3; 96365 ×4; 96375; 99285; 36415; 94640 ×5; 94760; 80053; 80048; 85652; 83605; 84550; 85025 ×2; 86140; 83036; 73610; 73630; G0378 ×3; J1200 ×2; J2405; J1170 ×3; J0295 ×3

== ENCOUNTER → 2022-05-06 | Outpatient (CLI) | payer MEDICARE, OTHER ==
[2022-05-06 13:14] VITALS: BP 131/58; PULSE 99; RESP 13; TEMP 97.6
--- NOTE | 2022-05-06 13:17 | P.PN ---
Subjective Progress Note Date: 05/06/22 Have had a long discussion with the patient and her son regarding treatment options. We did we have discussed surgical, medical, and radiation oncology treatment. I talked about surgical options such as lumpectomy versus mastectomy. The patient wishes a lumpectomy. We have also talked about dissecting this via reduction mammoplasty. Secondary to the fact that the patient has macromastia, back pain, shoulder notching, and chronic fungal infections she would like this to be done via reduction mammoplasty. She understands that there are increased risk with healing and especially in view of her comorbidities. Despite this she wishes it to be done via this approach. I spent approximately 1 hour with the patient. Patient will require clearance from cardiology as well as from her primary care doctor Original Note: History of Present Illness H&P Date: 02/26/22 Chief Complaint: Stage I a invasive ductal carcinoma right breast Shelby is a 66-year-old white female seen in consultation for Dr. 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 She underwent a bilateral screening mammogram on [id number] which revealed asymmetry in the right breast. This was followed by an ultrasound guided core biopsy on [id number]. This was a grade 2 invasive ductal carcinoma ER/AZ positive HER-2/mayco negative. Patient does not feel any lumps masses or nodules of concern. This was found on a screening mammogram. Was never had any surgery on her breast in the past. She is not complaining of any recent trauma or infection in the breast. She is not complaining of any nipple discharge. Caffeine: 1 can of pop/day nicotine: none; stopped 15 years ago for 28 years chocolate: occasional hormones: BCP-8 years Family history: mother: breast cancer at 55 Hormonal History: menarche: 8 , breast fed: no, age at first : 18 menopause: 48 Surgical history: gallbladder mastoid left side 3 times; tumor colon resection for infection e coli left ovary and fallopian tube secondary to infection tripple bypass back fusion June 2021 laminectomy tonsilectomy Medical History: polio post polio syndrome; right arm week right leg immobile COPD Social History: nicotine: At this time stopped 15 years ago did smoke for 28 years used to smoke approximately 1 pack per day Alcohol:occasional drugs: none - Constitutional Constitutional: Reports sweats - EENT Eyes: bilateral blurred vision Ears: bilateral: decreased hearing Ears, nose, mouth and throat: Denies headache, Denies sore throat - Breasts Breasts: bilateral: as per HPI - Cardiovascular Comment: Atrial fibrillation patient is on eloquis Cardiovascular: Reports shortness of breath - Respiratory Comment: COPD Respiratory: Denies cough, Denies 7 - Gastrointestinal Gastrointestinal: Reports diarrhea - Genitourinary (Female) Comment: UTI Genitourinary: Reports kidney stones - Menstruation Menstruation: Reports postmenopausal - Musculoskeletal Musculoskeletal: Reports as per HPI - Integumentary Integumentary: Denies pruritus, Denies rash - Neurological Neurological: Reports as per HPI - Psychiatric Psychiatric: Reports anxiety, Reports depression - Endocrine Endocrine: Reports fatigue - Hematologic/Lymphatic Comment: eloquis - Allergic/Immunologic Allergic/Immunologic: Reports as per HPI, Reports seasonal allergies Past Medical History Past Medical History: Atrial Fibrillation, Coronary Artery Disease (CAD), COPD, Diabetes Mellitus, GERD/Reflux, Hyperlipidemia Additional Past Medical History / Comment(s): post polio syndrome, neuropathy, hx. spontaneous pneumothorax, recent diarrhea, bowel resecction for sepsis/i nfection History of Any Multi-Drug Resistant Organisms: ESBL Date of last positivie culture/infection: 06/29/21 MDRO Source:: ESBL BACK Past Surgical History: Back Surgery, Bowel Resection, Cholecystectomy, Coronary Bypass/CABG, Ear Surgery, Tonsillectomy Additional Past Surgical History / Comment(s): triple bypass 2013, left salpingo-oophorectomy, laminectomy L4 L5, ear surgery x 3 Past Anesthesia/Blood Transfusion Reactions: No Reported Reaction Past Psychological History: No Psychological Hx Reported, Anxiety, Depression Additional Psychological History / Comment(s): mild Smoking Status: Former smoker Past Alcohol Use History: Occasional Additional Past Alcohol Use History / Comment(s): quit smoking 2008 Past Drug Use History: None Reported - Past Family History Mother Family Medical History: Cancer Medications and Allergies Home Medications Medication Instructions Recorded Confirmed Type Atorvastatin [Lipitor] 40 mg PO HS@209903/23/16 02/26/22 History DULoxetine HCL [Cymbalta] 60 mg PO HS@209903/23/16 02/26/22 History Metoprolol Tartrate [Lopressor] 50 mg PO BID@0900,209903/23/16 02/26/22 History Omeprazole [PriLOSEC] 20 mg PO DAILY@0600 12/06/16 11/11/22 History Montelukast [Singulair] 10 mg PO HS@2100 05/18/21 02/26/22 History Ubidecarenone [Co Q-10] 100 mg PO DAILY@0900 05/18/21 02/26/22 History Cholecalciferol [Vitamin D3 (25 25 mcg PO DAILY@0900 06/01/21 02/26/22 History Mcg = 1000 Iu)] Amiodarone [Cordarone] 200 mg PO BID@0900,209906/29/21 02/26/22 History Apixaban [Eliquis] 2.5 mg PO BID@0900,2100 06/29/21 02/26/22 History Cyanocobalamin [Vitamin B-12] 1,000 mcg PO DAILY@0900 06/29/21 02/26/22 History Gabapentin 600 mg PO TID 06/29/21 02/26/22 History Insulin Detemir (Levemir) [Levemir] 30 unit SQ HS@2100 ml 07/03/21 02/26/22 Rx HYDROcodone/APAP 10-325MG [Raywick 1 tab PO Q6HR PRN 7 Days #12 tab 07/04/21 02/26/22 Rx 10-325] Lactobacillus Acidophilus 1 each PO BID #60 capsule 07/04/21 02/26/22 Rx [Florajen Acidophilus] Allergies Allergy/AdvReac Type Severity Reaction Status Date / Time morphine Allergy rash,itchin Verified 02/26/22 10:48 g Sulfa (Sulfonamide Allergy Rash/Hives Verified 02/26/22 10:48 Antibiotics) surgical susy AdvReac Unknown Uncoded 02/26/22 10:48 S Objective - Constitutional General appearance: Present: cooperative - EENT Eyes: Present: EOMI ENT: Present: hearing grossly normal - Neck Neck: Present: normal ROM - Respiratory Respiratory: bilateral: CTA - Cardiovascular Rhythm: regular Heart sounds: normal: S1, S2 - Gastrointestinal General gastrointestinal: Present: soft - Integumentary Integumentary: Present: normal turgor - Musculoskeletal Musculoskeletal: Present: gait normal - Psychiatric Psychiatric: Present: A&O x's 3, appropriate affect, intact judgment & insight - Additional findings Additional findings: Breast Exam: BRA: 44D Inspection: bilateral grade 3 ptosis palpation: right breast: multi positional exam fibrocystic changes no definite discrete masses or nodules of concern, biopsy site is well-healed and not perceptible Right axilla: No adenopathy of concern Left breast: Multi-positional exam fibrocystic changes noted dominant masses or nodules of concern Left axilla: No adenopathy of concern Assessment and Plan Assessment: Assessment and Plan Assessment: Impression: Right breast invasive ductal carcinoma grade 2 ER/AZ positive HER-2/mayco negative stage IA Post polio syndrome Atrial fibrillation on Eloquis Plan: presentation of case at tumor board 03-09-22 Risks and benefits of procedure and options discussed with patient and son Have had a long discussion with the patient and her son regarding treatment options. We did we have discussed surgical, medical, and radiation oncology treatment. I talked about surgical options such as lumpectomy versus mastectomy. The patient wishes a lumpectomy. We have also talked about dissecting this via reduction mammoplasty. Secondary to the fact that the patient has macromastia, back pain, shoulder notching, and chronic fungal infections she would like this to be done via reduction mammoplasty. She understands that there are increased risk with healing and especially in view of her comorbidities. Despite this she wishes it to be done via this approach. I spent approximately 1 hour with the patient. Case was presented at tumor board on [id number] right breast Needle localization; lumpectomy right breast via reduction mammoplasty incision; possible onco-plastic tissue transfer, right sentinal node injection, right sentinal node biopsy, possible right axillary node dissection Patient will require clearance from cardiology as well as from her primary care doctor Patient signed form. Start talking Prescription given for 10 of Raywick 5 mg Original Note: CC: Dr. Leblanc Additional CC's: Serina Leblanc
== END ==
LOC: WWCWWP 12:49
PROVIDERS: ATTEND Surgery
DX: D05.11 Intraductal carcinoma in situ of right breast (principal); I48.91 Unspecified atrial fibrillation; G14 Postpolio syndrome; Z79.01 Long term (current) use of anticoagulants; E11.9 Type 2 diabetes mellitus without complications; K21.9 Gastro-esophageal reflux disease without esophagitis; E78.5 Hyperlipidemia, unspecified; J44.9 Chronic obstructive pulmonary disease, unspecified; I25.10 Atherosclerotic heart disease of native coronary artery without angina pectoris; Z79.4 Long term (current) use of insulin; Z88.5 Allergy status to narcotic agent; Z88.2 Allergy status to sulfonamides; Z87.891 Personal history of nicotine dependence; Z91.048 Other nonmedicinal substance allergy status

== ENCOUNTER 2022-05-11 08:14 | Day surgery (SDC) | payer MEDICARE, OTHER ==
[~2022-05-11 08:14] MED LIST changes: -ACETAMINOPHEN TAB 500 MG TAB PO PRN; -GABAPENTIN 300 MG CAP PO PRN; +HEPARIN SODIUM,PORCINE/PF 5,000 UNIT/0.5 ML SYRINGE SQ PRN; -ONDANSETRON 4 MG/2 ML VIAL IVP PRN; +Pre Op ABX Message 1 EACH MISC MISCELLANE ONE; -TRANEXAMIC ACID 1,000 MG in SODIUM CHLORIDE 0.9% 100 ML IVPB PRN
[2022-05-11] MEDS ORDERED: DEXAMETHASONE SOD PHOSPHATE 4 MG/ML 1 ML VIAL IV ONE (08:30)
[2022-05-11] MEDS ORDERED: LACTATED RINGERS 1,000 ML IV SCH (08:30)
[2022-05-11] MEDS ORDERED: MIDAZOLAM 2 MG/2 ML VIAL IV PRN (08:30)
[2022-05-11] MEDS ORDERED: ONDANSETRON 4 MG/2 ML VIAL IVP ONE (08:30)
[2022-05-11] MEDS ORDERED: ALPRAZolam 0.25 MG TAB ONE (08:57)
[2022-05-11 09:02] LABS: Glucose,Whole Blood 102 mg/dL (70-110)
[2022-05-11 09:37] VITALS: RESP 16
[2022-05-11] MEDS ORDERED: LIDOCAINE 1% INJ 10MG/ML (5 ML VIAL-PF) SQ ONE (09:50)
--- NOTE | 2022-05-11 11:55 | P.NAPBC ---
NAPBC Queries - NAPBC Queries Was patient's case review presented at [facility] tumor board? If no, comment.: Yes Was patient's pathology reviewed at [facility]? If no, comment.: Yes Was breast conservation surgery offered? If no, comment.: Yes Was sentinel node biopsy offered? If no, comment.: Yes Was diagnosis confirmed by percutaneous core biopsy? If no, comment.: Yes Is patient mastectomy patient?: No Clinical Stage: stage I right breast invasive ductal cancer
[2022-05-11] MEDS ORDERED: PROPOFOL 10 MG/ML 20 ML VIAL IV ONE (12:39)
[2022-05-11] MEDS ORDERED: fentaNYL (PF) 50 MCG/ML 2 ML AMP ONE (12:39)
[2022-05-11] MEDS ORDERED: MIDAZOLAM 2 MG/2 ML VIAL ONE (12:39)
[2022-05-11] MEDS ORDERED: ROCURONIUM 10 MG/ML (5 ML VIAL) IV ONE (12:39)
[2022-05-11] MEDS ORDERED: LIDOCAINE 2% INJ 20 MG/ML (2 ML VIAL) ONE (12:39)
[2022-05-11] MEDS ORDERED: SUCCINYLCHOLINE CHLORIDE 200 MG/10 ML VIAL IV ONE (12:39)
[2022-05-11] MEDS ORDERED: ePHEDrine 50 MG/ML 1 ML VIAL ONE (12:39)
[2022-05-11] MEDS ORDERED: GLYCOPYRROLATE 0.2 MG/ML 2 ML VIAL ONE (12:39)
[2022-05-11] MEDS ORDERED: SODIUM CHLORIDE 0.9% 50 ML with ceFAZolin 2 MG IV ONE ×2 (13:00)
[2022-05-11] MEDS ORDERED: LACTATED RINGERS 1,000 ML IV ONE (14:00)
--- NOTE | 2022-05-11 15:26 | NM ---
EXAMINATION TYPE: NM sentinel node injection DATE OF EXAM: 05/11/2022 COMPARISON: 05/11/2022 HISTORY: 66-year-old female biopsy-proven right breast cancer TECHNIQUE AND FINDINGS: The procedure of sentinel lymph node injection was explained to the patient. The benefits, alternatives, and risks were discussed. An informed consent was then obtained. Overlying skin is cleaned with sterile alcohol. Following this, 540 uCi Tc99m Tilmanocept was inject ed in the upper outer aspect of the right nipple intradermally. The patient tolerated the procedure well without any immediate complication. The patient was kept in the radiology department for short stay after the procedure and then taken to surgery for surgical p rocedure what is presumed intraoperative gamma probe will be used for sentinel lymph node detection. IMPRESSION: Right breast radiotracer injection for sentinel node localization as above.
--- NOTE | 2022-05-11 15:45 | P.OP ---
Date of Procedure: 05/11/22 Preoperative Diagnosis: Right breast invasive ductal carcinoma/macromastia Postoperative Diagnosis: Same Procedure(s) Performed: Right breast needle localization lumpectomy/reduction mammoplasty/sentinel node biopsy Anesthesia: CASEY Surgeon: Radha Martinez Estimated Blood Loss (ml): 100 IV fluids (ml): 800 Pathology: other (Right breast tissue/right sentinel node biopsy) Condition: stable Disposition: same day Indications for Procedure: Invasive ductal carcinoma right breast Operative Findings: Fibrofatty breast tissue Description of Procedure: The patient is a 66-year-old white female with macromastia diagnosed with a right breast invasive ductal carcinoma. She wishes to have a lumpectomy via a mammoplasty incision. The patient was first seen in the radiology department where needle localization of the cancer was performed. Additionally the radiotracer was injected in the periareolar area. The patient was brought to the operative suite. Following induction of anesthesia the neoprobe was used to identify radioactivity in the axilla. Following this the right breast and axilla were prepped and draped in a sterile fashion. The right axilla was approached initially. An incision was made at the area of greatest radio activity. Dissection was carried down this was deep into the axillary tissue. The node was grasped using an Allis clamp was Harmonic Scalpel was removed. The 10 second count was 6515. The background 10 second count was 5. After assured that hemostasis was attained the deep tissues were closed using 3-0 Vicryl suture. This is followed by closure of the subcutaneous tissue with 3-0 Vicryl suture. This the subcuticular suture was closed with 4-0 Monocryl. Steri-Strips were applied to the skin. The area of the breast was approached. In the preoperative area and markings for Weldon pattern reduction mammoplasty incision was performed. Patient was brought to the operating room and the inferior pedicle tissue was de- epithelialized. This was followed by resection of the wedge of tissue on the medial and lateral aspect of the breast down to the pectoralis muscle. Dad laterally was the area where the needle localization had been performed and this tissue was widely excised. Bleeding was painted for orientation radiograph of the specimen revealed the area of concern had been removed. Additional superior tissue was obtained and painted for orientation. Additional the additional tissue was excised with a mammoplasty. The breast flaps were developed. The wound was well irrigated for hemostasis. Titanium clips were placed at this site of the tumor which had been excised. The tissues were then closed using 3- 0 Vicryl interrupted suture. This was followed by 3-0 Vicryl running suture. This was followed by 4-0 Monocryl subcuticular running suture. This was followed by a nylon skin suture. The patient tolerated the procedure in stable condition. All instrument and sponge counts were correct at the end of the case. The closure 2 LOTTIE drains were placed in these were secured using nylon suture. The weight of the specimen was 1.1 pounds.
--- NOTE | 2022-05-11 15:47 | P.DS ---
Providers Attending physician: Radha Martinez Primary care physician: Serina Leblanc Plan - Discharge Summary Discharge Rx Participant: No New Discharge Prescriptions: No Action Omeprazole [PriLOSEC] 20 mg PO DAILY DULoxetine HCL [Cymbalta] 60 mg PO HS Atorvastatin [Lipitor] 40 mg PO HS Metoprolol Tartrate [Lopressor] 50 mg PO BID Apixaban [Eliquis] 2.5 mg PO BID Amiodarone [Cordarone] 200 mg PO BID Cyanocobalamin [Vitamin B-12] 1,000 mcg PO DAILY HYDROcodone/APAP 10-325MG [Elton 10-325] 1 tab PO Q6HR PRN 7 Days #12 tab PRN Reason: Pain Budesonide-Formot 160-4.5 Mcg [Symbicort 160-4.5 Mcg Inhaler] 2 puff I NHALATION RT-BID Albuterol Sulfate [Albuterol Sulfate Hfa] 2 puff PO RT-Q4H PRN PRN Reason: Shortness Of Breath Lactobacillus Acidophilus [Florajen Acidophilus] 1 cap PO BID Insulin Glargine,Hum.rec.anlog [Lantus Solostar Pen] 40 units SQ DAILY HYDROcodone/APAP 5-325MG [Elton 5] 1 - 2 each PO Q4H PRN #20 tab PRN Reason: Pain Ubidecarenone [Co Q-10] 100 mg PO DAILY Montelukast [Singulair] 10 mg PO DAILY Cholecalciferol [Vitamin D3 (25 Mcg = 1000 Iu)] 50 mcg PO DAILY Gabapentin 600 mg PO TID Amoxic-Pot Clav 875-125Mg [Augmentin 875-125] 1 tab PO Q12HR 10 Days #20 tab Discharge Medication List Atorvastatin [Lipitor] 40 mg PO HS 03/23/16 [History] DULoxetine HCL [Cymbalta] 60 mg PO HS 03/23/16 [History] Metoprolol Tartrate [Lopressor] 50 mg PO BID 03/23/16 [History] Omeprazole [PriLOSEC] 20 mg PO DAILY 03/23/16 [History] Montelukast [Singulair] 10 mg PO DAILY 05/18/21 [History] Ubidecarenone [Co Q-10] 100 mg PO DAILY 05/18/21 [History] Cholecalciferol [Vitamin D3 (25 Mcg = 1000 Iu)] 50 mcg PO DAILY 06/01/21 [History] Amiodarone [Cordarone] 200 mg PO BID 06/29/21 [History] Apixaban [Eliquis] 2.5 mg PO BID 06/29/21 [History] Cyanocobalamin [Vitamin B-12] 1,000 mcg PO DAILY 06/29/21 [History] Gabapentin 600 mg PO TID 06/29/21 [History] HYDROcodone/APAP 10-325MG [Elton 10-325] 1 tab PO Q6HR PRN 7 Days #12 tab 07/04/21 [Rx] Albuterol Sulfate [Albuterol Sulfate Hfa] 2 puff PO RT-Q4H PRN 04/06/22 [History] Budesonide-Formot 160-4.5 Mcg [Symbicort 160-4.5 Mcg Inhaler] 2 puff INHALATION RT-BID 04/06/22 [History] Insulin Glargine,Hum.rec.anlog [Lantus Solostar Pen] 40 units SQ DAILY 04/06/22 [History] Lactobacillus Acidophilus [Florajen Acidophilus] 1 cap PO BID 04/06/22 [History] Amoxic-Pot Clav 875-125Mg [Augmentin 875-125] 1 tab PO Q12HR 10 Days #20 tab 04/08/22 [Rx] HYDROcodone/APAP 5-325MG [Elton 5] 1 - 2 each PO Q4H PRN #20 tab 05/06/22 [Rx] Follow up Appointment(s)/Referral(s): Radha Martinez MD [STAFF PHYSICIAN] - 05/21/22 4:00 pm [facility], [NON-STAFF] - 1-2 Days Activity/Diet/Wound Care/Special Instructions: do not drive until seen by Dr. Davis may shower afer 48 hours wear bra at all times teach drain care, drain and record Q shift and as needed Discharge Disposition: HOME WITH HOME HEALTH SERVICES
[2022-05-11 16:13] VITALS: TEMP 97
[2022-05-11] MEDS: HYDROmorphone 0.5 MG/0.5 ML SYRINGE IVP PRN ×2 (16:16→16:31)
[2022-05-11 17:13] LABS: Glucose,Whole Blood 126 mg/dL (70-110)
[2022-05-11] MEDS ORDERED: HYDROcodone/APAP 10-325MG 1 EACH TAB PO ONE (17:35)
[2022-05-11] MEDS ORDERED: HYDROcodone/APAP 10-325MG 1 EACH TAB ONE (17:35)
[2022-05-11 18:22] VITALS: BP 127/84; PULSE 58
--- NOTE | 2022-05-17 08:36 | MM ---
Pathology Description: Approach: Lateral to Medial Needle Type: 7 cm Kopan The procedure of needle localization with wire placement and than surgical excision was explained to the patient. Benefits, alternatives, and risks were discussed. An informed consent was then obtained. The shortest pathway for procedure was chosen. Shortest pathway was a lateral approach. The overlying skin was prepped and draped in usual sterile fashion. Lidocaine was used as anesthetic into the skin and subcutaneous tissue up to the level of area of concern. A 7 cm Kopans needle was used. It was placed via a lateral approach under mammographic guidance. Subsequent 90 degrees mammogram show the needle to be in satisfactory position relative to the targeted area. At this point, wire was placed and the needle was withdrawn. The wire was fixed to patient's skin. Images were marked for surgeon. The patient tolerated the procedure well without any immediate complication. The patient was kept in the radiology department for short stay after the procedure and then taken to surgery for surgical excision. Targeted, density, and wire are identified in specimen mammogram. Additional tissue was included in the specimen relating to the patient's breast reduction. The patient was kept in hospital for short stay after the procedure and then discharged home in stable condition. IMPRESSION: Successful, uncomplicated needle localization with wire placement and surgical excision of biopsy-proven right breast cancer; full pathology results to follow. Pathology Results: Result: Malignant, Invasive ductal carcinoma. A. RIGHT BREAST, LUMPECTOMY: Invasive moderately differentiated ductal carcinoma (Grade 2), margins negative. See Surgical Pathology Cancer Case Summary and Comment. B. RIGHT SENTINEL LYMPH NODE, BIOPSY: Lymph node negative for metastasis. CK7 and KRISTA immunoperoxidase stains performed on blocks B1 and B2 are confirmatory (controls appropriate). C. RIGHT AXILLARY TISSUE: Lymph node negative for metastasis. D. DE-EPITHELIALIZED TISSUE, RIGHT BREAST: Benign skin without histopathologic changes. E. ADDITIONAL RIGHT BREAST TISSUE, EXCISION: Benign breast tissue. F. RIGHT BRAST, EXTERNAL SURFACE OF SUPERIOR MARGIN, EXCISION: Benign fibroadipose tissue and an incidental benign lymph node. Overall Assessment: Malignant Management: Surgical Consultation of the right breast. Diagnostic Mammogram of the right breast in 6 months. Electronically signed and approved by: Chong Velasquez M.D. Radiologist [facility]PITALGeorgina
== END 2022-05-11 18:35 | disposition home health service (06) ==
LOC: OR 08:14
PROVIDERS: ATTEND Surgery
DX: C50.411 Malignant neoplasm of upper-outer quadrant of right female breast (principal); N62 Hypertrophy of breast; I25.10 Atherosclerotic heart disease of native coronary artery without angina pectoris; Z95.1 Presence of aortocoronary bypass graft; I48.91 Unspecified atrial fibrillation; E78.5 Hyperlipidemia, unspecified; J44.9 Chronic obstructive pulmonary disease, unspecified; E11.9 Type 2 diabetes mellitus without complications; K21.9 Gastro-esophageal reflux disease without esophagitis; Z79.02 Long term (current) use of antithrombotics/antiplatelets; Z79.4 Long term (current) use of insulin; Z79.51 Long term (current) use of inhaled steroids; Z79.891 Long term (current) use of opiate analgesic; Z79.899 Other long term (current) drug therapy; Z79.01 Long term (current) use of anticoagulants; Z88.2 Allergy status to sulfonamides; Z90.49 Acquired absence of other specified parts of digestive tract; Z98.890 Other specified postprocedural states; Z79.810 Long term (current) use of selective estrogen receptor modulators (SERMs); Z88.5 Allergy status to narcotic agent
CPT/HCPCS: 38525; 19318; 88305; 88342; 88307; 88341; 76098; 19281; 38792; C1819; A9520; J2250; J0330; J1100; J2405; J0690; J2001 ×2; J3010; J2704; J1170; J1644

== ENCOUNTER → 2022-07-08 | Outpatient (CLI) | payer OTHER ==
--- NOTE | 2022-07-08 15:26 | P.PN ---
Progress Note - Text Progress Note Date: 07/08/22 [place] [id number] underwent a right breast lumpectomy and sentinel node biopsy. The lumpectomy margins were negative and the sentinel lymph node was negative. This was a 13 mm invasive ductal cancer. This was done via Weldon pattern reduction mammoplasty. Physical examination: Incision: The incision is granulating at this time. In the inferior lateral aspect the wound is debrided, this is healing well. This is done with informed consent. The area is reinforced using 3-0 nylon suture. The patient continues to have some eschar at the periareolar area which is starting to separate. Impression/Plan: Pathology all margins negative, sentinel node negative Continue present wound care Follow-up in 2 weeks
[2022-07-08 16:07] VITALS: BP 134/68; PULSE 58; RESP 18; TEMP 98
== END ==
LOC: WWCWWP 14:52
PROVIDERS: ATTEND Surgery
DX: Z85.3 Personal history of malignant neoplasm of breast (principal); Z88.5 Allergy status to narcotic agent; Z88.2 Allergy status to sulfonamides

== ENCOUNTER → 2022-07-23 | Outpatient (CLI) | payer OTHER ==
--- NOTE | 2022-07-23 14:51 | P.PN ---
Progress Note - Text Progress Note Date: 07/23/22 [place] [id number] underwent a right breast lumpectomy and sentinel node biopsy. The lumpectomy margins were negative and the sentinel lymph node was negative. This was a 13 mm invasive ductal cancer. This was done via Weldon pattern reduction mammoplasty. Seen radiation therapy and told she did not need any radiation. She is starting an antiestrogen letrazole. Physical examination: Incision: The incision clean and dry at this time. Sutures were removed. The eschar has come off in the periareolar region and this is healed well. Does have nipple areolar sensation. Impression/Plan: Pathology all margins negative, sentinel node negative Follow-up 6 weeks CC: Dr. Lozano
[2022-07-23 14:57] VITALS: BP 124/65; PULSE 60; RESP 18; TEMP 98.9
== END ==
LOC: WWCBREAST 14:40
PROVIDERS: ATTEND Surgery
DX: Z85.3 Personal history of malignant neoplasm of breast (principal); Z08 Encounter for follow-up examination after completed treatment for malignant neoplasm; Z88.5 Allergy status to narcotic agent; Z88.2 Allergy status to sulfonamides; Z91.048 Other nonmedicinal substance allergy status; Z87.891 Personal history of nicotine dependence

== ENCOUNTER → 2022-09-03 | Outpatient (CLI) | payer OTHER ==
[2022-09-03 13:18] VITALS: BP 141/54; PULSE 63; RESP 20; TEMP 97.9
--- NOTE | 2022-09-03 13:35 | P.PN ---
Subjective Progress Note Date: 09/03/22 Principal diagnosis: right breast stage I invasive ductal cancer Stage I a invasive ductal carcinoma right breast Shelby is a 66-year-old white female seen in consultation for Dr. 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 She underwent a bilateral screening mammogram on [id number] which revealed asymmetry in the right breast. This was followed by an ultrasound guided core biopsy on [id number]. This was a grade 2 invasive ductal carcinoma ER/SC positive HER-2/mayco negative. Patient does not feel any lumps masses or nodules of concern. This was found on a screening mammogram. Was never had any surgery on her breast in the past. She is not complaining of any recent trauma or infection in the breast. She is not complaining of any nipple discharge. The patient on 05-11-21 underwent a right breast lumpectomy via a Weldon pattern reduction mammoplasty. This was for a 13 mm invasive ductal carcinoma. Her margins were negative and sentinel node biopsy was negative. She saw a radiation therapy and was told she did not need radiation. She is taking letrazole. She is not complaining of any lumps masses or nodules of concern in either breast. Caffeine: 1 can of pop/day nicotine: none; stopped 15 years ago for 28 years chocolate: occasional hormones: BCP-8 years Family history: mother: breast cancer at 55 Hormonal History: menarche: 8 , breast fed: no, age at first : 18 menopause: 48 Surgical history: gallbladder mastoid left side 3 times; tumor colon resection for infection e coli left ovary and fallopian tube secondary to infection tripple bypass back fusion June 2021 laminectomy tonsilectomy Medical History: polio post polio syndrome; right arm week right leg immobile COPD Social History: nicotine: At this time stopped 15 years ago did smoke for 28 years used to smoke approximately 1 pack per day Alcohol:occasional drugs: none - Constitutional Constitutional: Reports sweats - EENT Eyes: bilateral blurred vision Ears: bilateral: decreased hearing Ears, nose, mouth and throat: Denies headache, Denies sore throat - Breasts Breasts: bilateral: as per HPI - Cardiovascular Comment: Atrial fibrillation patient is on eloquis Cardiovascular: Reports shortness of breath - Respiratory Comment: COPD Respiratory: Denies cough, Denies 7 - Gastrointestinal Gastrointestinal: Reports diarrhea - Genitourinary (Female) Comment: UTI Genitourinary: Reports kidney stones - Menstruation Menstruation: Reports postmenopausal - Musculoskeletal Musculoskeletal: Reports as per HPI - Integumentary Integumentary: Denies pruritus, Denies rash - Neurological Neurological: Reports as per HPI - Psychiatric Psychiatric: Reports anxiety, Reports depression - Endocrine Endocrine: Reports fatigue - Hematologic/Lymphatic Comment: eloquis - Allergic/Immunologic Allergic/Immunologic: Reports as per HPI, Reports seasonal allergies Past Medical History Past Medical History: Atrial Fibrillation, Coronary Artery Disease (CAD), COPD, Diabetes Mellitus, GERD/Reflux, Hyperlipidemia Additional Past Medical History / Comment(s): post polio syndrome, neuropathy, hx. spontaneous pneumothorax, recent diarrhea, bowel resecction for sepsis/infection History of Any Multi-Drug Resistant Organisms: ESBL Date of last positivie culture/infection: 06/29/21 MDRO Source:: ESBL BACK Past Surgical History: Back Surgery, Bowel Resection, Cholecystectomy, Coronary Bypass/CABG, Ear Surgery, Tonsillectomy Additional Past Surgical History / Comment(s): triple bypass 2013, left salpingo-oophorectomy, laminectomy L4 L5, ear surgery x 3 Past Anesthesia/Blood Transfusion Reactions: No Reported Reaction Past Psychological History: No Psychological Hx Reported, Anxiety, Depression Additional Psychological History / Comment(s): mild Smoking Status: Former smoker Past Alcohol Use History: Occasional Additional Past Alcohol Use History / Comment(s): quit smoking 2008 Past Drug Use History: None Reported - Past Family History Mother Family Medical History: Cancer Medications and Allergies Home Medications Medication Instructions Recorded Confirmed Type Atorvastatin [Lipitor] 40 mg PO HS@209903/23/16 02/26/22 History DULoxetine HCL [Cymbalta] 60 mg PO HS@209903/23/16 02/26/22 History Metoprolol Tartrate [Lopressor] 50 mg PO BID@09,209903/23/16 02/26/22 History Omeprazole [PriLOSEC] 20 mg PO DAILY@59903/23/16 02/26/22 History Montelukast [Singulair] 10 mg PO HS@209905/18/21 02/26/22 History Ubidecarenone [Co Q-10] 100 mg PO DAILY@89905/18/21 02/26/22 History Cholecalciferol [Vitamin D3 (25 25 mcg PO DAILY@0900 06/01/21 02/26/22 History Mcg = 1000 Iu)] Amiodarone [Cordarone] 200 mg PO BID@0900,2100 06/29/21 02/26/22 History Apixaban [Eliquis] 2.5 mg PO BID@0900,2100 06/29/21 02/26/22 History Cyanocobalamin [Vitamin B-12] 1,000 mcg PO DAILY@0900 06/29/21 02/26/22 History Gabapentin 600 mg PO TID 06/29/21 02/26/22 History Insulin Detemir (Levemir) [Levemir] 30 unit SQ HS@2100 ml 07/03/21 02/26/22 Rx HYDROcodone/APAP 10-325MG [Mcallen 1 tab PO Q6HR PRN 7 Days #12 tab 07/04/21 02/26/22 Rx 10-325] Lactobacillus Acidophilus 1 each PO BID #60 capsule 07/04/21 02/26/22 Rx [Florajen Acidophilus] Allergies Allergy/AdvReac Type Severity Reaction Status Date / Time morphine Allergy rash,itchin Verified 02/26/22 10:48 g Sulfa (Sulfonamide Allergy Rash/Hives Verified 02/26/22 10:48 Antibiotics) surgical susy AdvReac Unknown Uncoded 02/26/22 10:48 Objective - Vital Signs Vital signs: Vital Signs Temp 97.9 F 09/03/22 13:15 Pulse 63 09/03/22 13:15 Resp 20 09/03/22 13:15 BP 141/54 09/03/22 13:15 Pulse Ox 93 L 09/03/22 13:15 FiO2 Intake & Output 09/02/22 09/03/22 09/03/22 18:59 06:59 18:59 Weight 87.997 kg - Constitutional General appearance: Present: cooperative - EENT Eyes: Present: EOMI ENT: Present: hearing grossly normal - Neck Neck: Present: normal ROM - Respiratory Respiratory: bilateral: CTA - Cardiovascular Rhythm: regular Heart sounds: normal: S1, S2 - Integumentary Integumentary: Present: normal turgor - Musculoskeletal Musculoskeletal Comment(s): in a wheel chair - Psychiatric Psychiatric: Present: A&O x's 3, appropriate affect, intact judgment & insight - Additional findings Additional findings: Breast Exam: Asymmetry of the breast related to right breast surgery BRA: 48D Palpation: Right breast: Well-healed scars from prior surgery no dominant masses or nodules of concern Right axilla: No adenopathy of concern Left breast: Multiple positional exam no dominant masses or nodules of concern Left axilla: No adenopathy of concern Assessment and Plan Assessment: Impression: polio post polio syndrome; right arm week right leg immobile COPD Right breast stage IA invasive ductal carcinoma no evidence of recurrence Asymmetry of the breast related to right breast lumpectomy Plan: Bilateral mammogram January with physician exam at that time Continue letrazole Follow-up medical oncology Follow-up here in January and we'll most likely schedule a reduction procedure on the left side secondary to the asymmetry Cc: Dr. Lozano
== END ==
LOC: WWCWWP 13:07
PROVIDERS: ATTEND Surgery
DX: D05.11 Intraductal carcinoma in situ of right breast (principal); J44.9 Chronic obstructive pulmonary disease, unspecified; Z88.2 Allergy status to sulfonamides; E11.9 Type 2 diabetes mellitus without complications; K21.9 Gastro-esophageal reflux disease without esophagitis; E78.5 Hyperlipidemia, unspecified; I25.10 Atherosclerotic heart disease of native coronary artery without angina pectoris; I48.91 Unspecified atrial fibrillation; Z80.3 Family history of malignant neoplasm of breast; Z87.891 Personal history of nicotine dependence; Z79.4 Long term (current) use of insulin; Z85.3 Personal history of malignant neoplasm of breast; Z88.5 Allergy status to narcotic agent; Z91.048 Other nonmedicinal substance allergy status

== ENCOUNTER 2022-09-06 14:43 | Inpatient (IN) | payer OTHER ==
[2022-09-06] MEDS ORDERED: SODIUM CHLORIDE 0.9% 500 ML 500 ML IV STA (15:23)
--- NOTE | 2022-09-06 15:28 | ED ---
General Adult HPI - General Chief complaint: Shortness of Breath Stated complaint: SOB Time Seen by Provider: 09/06/22 15:15 Source: patient, EMS, RN notes reviewed, old records reviewed Mode of arrival: EMS Limitations: no limitations - History of Present Illness Initial comments: This is a 67-year-old female presents to the emergency department complaining that she has a history of COPD and over the last 2 weeks she's had more more difficulty breathing shortness of breath and has been unable to get in to see her physician. Patient states she's had no fever chills but has an occasional cough particularly at night. Patient also states she's been having a little bit of diarrhea the last couple of days. Patient also is noted that overall she is feeling weaker and weaker. Patient states she is on eliquis for atrial fibrillation. Patient denies any chest pain or palpitations. Patient has any back pain. Patient denies any headache or lightheadedness or near syncopal episode. Patient denies numbness or weakness. When patient came in we were told that at the facility today her pulse ox was in the 80s. She is not normally on oxygen. - Related Data Home Medications Medication Instructions Recorded Confirmed Atorvastatin [Lipitor] 40 mg PO HS 03/23/16 09/06/22 DULoxetine HCL [Cymbalta] 60 mg PO HS 03/23/16 09/06/22 Metoprolol Tartrate [Lopressor] 50 mg PO BID 03/23/16 09/06/22 Omeprazole [PriLOSEC] 20 mg PO DAILY 03/23/16 09/06/22 Montelukast [Singulair] 10 mg PO DAILY 05/18/21 09/06/22 Ubidecarenone [Co Q-10] 200 mg PO DAILY 05/18/21 09/06/22 Gabapentin 600 mg PO TID 06/29/21 09/06/22 Budesonide-Formot 160-4.5 Mcg 2 puff INHALATION RT-BID 04/06/22 09/06/22 [Symbicort 160-4.5 Mcg Inhaler] Insulin Glargine,Hum.rec.anlog 30 units SQ DAILY 04/06/22 09/06/22 [Lantus Solostar Pen] Biotin [Biotin Disolve] 10,000 mcg PO DAILY 09/03/22 09/06/22 Letrozole [Femara] 2.5 mg PO DAILY 09/03/22 09/06/22 Apixaban [Eliquis] 5 mg PO BID 09/06/22 09/06/22 Cholecalciferol [Vitamin D3 (125 125 mcg PO DAILY 09/06/22 09/06/22 Mcg = 5000 Iu)] Cyanocobalamin (Vitamin B-12) 2,000 mcg PO DAILY 09/06/22 09/06/22 [Vitamin B-12] HYDROcodone/APAP 10-325MG [[place] 1 tab PO Q6H PRN 09/06/22 09/06/22 10-325] Allergies Allergy/AdvReac Type Severity Reaction Status Date / Time morphine Allergy rash,itchin Verified 09/06/22 18:12 g Sulfa (Sulfonamide Allergy Rash/Hives Verified 09/06/22 18:12 Antibiotics) surgical susy AdvReac Unknown Uncoded 09/06/22 15:24 Review of Systems ROS Statement: Those systems with pertinent positive or pertinent negative responses have been documented in the HPI. ROS Other: All systems not noted in ROS Statement are negative. Past Medical History Past Medical History: Atrial Fibrillation, Coronary Artery Disease (CAD), COPD, Diabetes Mellitus, GERD/Reflux, Hyperlipidemia Additional Past Medical History / Comment(s): post polio syndrome rt side, neuropathy, hx. spontaneous pneumothorax, bowel resection for sepsis/infection,cut on toe History of Any Multi-Drug Resistant Organisms: ESBL Date of last positivie culture/infection: 06/29/21 MDRO Source:: ESBL BACK Past Surgical History: Back Surgery, Bowel Resection, Breast Surgery, [place] cystectomy, Coronary Bypass/CABG, Ear Surgery, Tonsillectomy Additional Past Surgical History / Comment(s): triple bypass 2013, left salpingo-oophorectomy, laminectomy L4 L5x3, ear surgery x 3 Past Anesthesia/Blood Transfusion Reactions: No Reported Reaction Past Psychological History: Anxiety, Depression Smoking Status: Former smoker Past Alcohol Use History: Occasional Past Drug Use History: None Reported - Past Family History Mother Family Medical History: Cancer General Exam - General Exam Comments Initial Comments: GENERAL: Patient is well-developed and well-nourished. Patient is nontoxic and well- hydrated and is in no acute distress. ENT: Neck is soft and supple. No significant lymphadenopathy is noted. Oropharynx is clear. Moist mucous membranes. Neck has full range of motion without eliciting any pain. EYES: The sclera were anicteric and conjunctiva were pink and moist. Extraocular movements were intact and pupils were equal round and reactive to light. Eyelids were unremarkable. PULMONARY: Unlabored respirations. Good breath sounds bilaterally. No audible rales rhonchi or wheezing was noted. CARDIOVASCULAR: There is a regular rate and rhythm without any murmurs gallops or rubs. ABDOMEN: Soft and nontender with normal bowel sounds. SKIN: Skin is clear with no lesions or rashes and otherwise unremarkable. NEUROLOGIC: Patient is alert and oriented x3. Cranial nerves II through XII are grossly intact. Motor and sensory are also intact. Normal speech, volume and content. Symmetrical smile. MUSCULOSKELETAL: Normal extremities with adequate strength and full range of motion. No lower extremity swelling or edema. No calf tenderness. LYMPHATICS: No significant lymphadenopathy is noted PSYCHIATRIC: Normal psychiatric evaluation. Limitations: no limitations Course Vital Signs 09/06/22 09/06/22 15:13 17:06 Temperature 98.2 F Pulse Rate 58 L 67 Respiratory 20 20 Rate Blood Pressure 125/62 134/66 O2 Sat by Pulse 96 93 L Oximetry Medical Decision Making - Medical Decision Making EKG as interpreted by myself. EKG shows a sinus rhythm at 64 bpm MN interval is 206 QRS is 156 QT intervals 490 QTC is 549. Patient has a right bundle reuben block. Was pt. sent in by a medical professional or institution (FELICIANO Payton, [employer], urgent care, hospital, or skilled nursing...) When possible be specific @ -[No] Did you speak to anyone other than the patient for history (EMS, parent, family, police, friend...)? What history was obtained from this source @ -[No] Did you review nursing and triage notes (agree or disagree)? Why? @ -[I reviewed and agree with nursing and triage notes] Were old charts reviewed (outside hosp., previous admission, EMS record, old EKG, old radiological studies, urgent care reports/EKG's, skilled nursing records)? Report findings @ -Lab work prior x-rays and charts on this patient. Differential Diagnosis (chest pain, altered mental status, abdominal pain women, abdominal pain men, vaginal bleeding, weakness, fever, dyspnea, syncope, headache, dizziness, GI bleed, back pain, seizure, CVA, palpatations, mental health, musculoskeletal)? @ -Differential Dyspnea: Coronary syndrome, arrhythmia, tamponade, asthma, COPD, pulmonary embolism, pneumonia, pneumothorax, pulmonary effusion, anaphylaxis, diabetic ketoacidosis, flailed chest, pulmonary contusion, diaphragmatic rupture, anemia, neuromuscular, this is not meant to be an all-inclusive list. EKG interpreted by me (3pts min.). @ -[As above] X-rays interpreted by me (1pt min.). @ -Chest x-ray shows a pleural effusion on the right that is small CT interpreted by me (1pt min.). @ -CT scan shows emphysema and a small pleural effusion on the right no PE was noted U/S interpreted by me (1pt. min.). @ -[None done] What testing was considered but not performed or refused? (CT, X-rays, U/S, labs)? Why? @ -[None] What meds were considered but not given or refused? Why? @ -[None] Did you discuss the management of the patient with other professionals (professionals i.e. , PA, [employer], lab, RT, psych nurse, social worker masters, bung sewer, teacher, account officer, patient case manager)? Give summary @ -Was sound physician's name agreed to admit the patient Was smoking cessation discussed for >3mins.? @ -[No] Was critical care preformed (if so, how long)? @ -35 minutes Were there social determinants of health that impacted care today? How? (Homelessness, low income, unemployed, alcoholism, drug addiction, transportation, low edu. Level, literacy, decrease access to med. care, custodial, rehab)? @ -[No] Was there de-escalation of care discussed even if they declined (Discuss DNR or withdrawal of care, Hospice)? DNR status @ -[No] What co-morbidities impacted this encounter? (DM, HTN, Smoking, COPD, CAD, Cancer, CVA, ARF, Chemo, Hep., AIDS, mental health diagnosis, sleep apnea, morbid obesity)? @ -[None] Was patient admitted / discharged? Hospital course, mention meds given and route, prescriptions, significant lab abnormalities, going to OR and other pertinent info. @ -Patient kept Dropping into the 80s when she was off oxygen patient received a couple of breathing treatments in the emergency department as well as steroids. I spoke with sound physician's and he agreed to admit the patient Undiagnosed new problem with uncertain prognosis? @ -[No] Drug Therapy requiring intensive monitoring for toxicity (Heparin, Nitro, Insulin, Cardizem)? @ -[No] Were any procedures done? @ -[No] Diagnosis/symptom? @ -Acute COPD exacerbation Acute, or Chronic, or Acute on Chronic? @ -Acute Uncomplicated (without systemic symptoms) or Complicated (systemic symptoms)? @ -Complicated Side effects of treatment? @ -[No] Exacerbation, Progression, or Severe Exacerbation? @ -Severe exacerbation Poses a threat to life or bodily function? How? (Chest pain, [place], [place], pneumonia, PE, COPD, DKA, ARF, appy, cholecystitis, CVA, Diverticulitis, Homicidal, S uicidal, threat to staff... and all critical care pts) @ - yes this could lead to end organ dysfunction secondary to hypoxia - Lab Data Result diagrams: 09/06/22 16:08 09/06/22 16:08 Lab Results 09/06/22 09/06/22 09/06/22 Range/Units 16:08 16:08 16:08 WBC 7.2 (3.8-10.6) k/uL RBC 4.32 (3.80-5.40) m/uL Hgb 9.6 L (11.4-16.0) gm/dL Hct 32.4 L (34.0-46.0) % MCV 74.9 L (80.0-100.0) fL MCH 22.2 L (25.0-35.0) pg MCHC 29.6 L (31.0-37.0) g/dL RDW 17.9 H (11.5-15.5) % Plt Count 237 (150-450) k/uL MPV 7.6 Neutrophils % (Manual) 79 % Lymphocytes % (Manual) 5 % Monocytes % (Manual) 13 % Eosinophils % (Manual) 2 % Basophils % (Manual) 1 % Neutrophils # (Manual) 5.69 (1.3-7.7) k/uL Lymphocytes # (Manual) 0.36 L (1.0-4.8) k/uL Monocytes # (Manual) 0.94 (0-1.0) k/uL Eosinophils # (Manual) 0.14 (0-0.7) k/uL Basophils # (Manual) 0.07 (0-0.2) k/uL Nucleated RBCs 0 (0-0) /100 WBC Manual Slide Review Performed Hypochromasia Marked Anisocytosis Slight Microcytosis Moderate PT (9.0-12.0) sec INR (<1.2) APTT (22.0-30.0) sec D-Dimer (<0.60) mg/L FEU Sodium 138 (137-145) mmol/L Potassium 4.2 (3.5-5.1) mmol/L Chloride 105 (98-107) mmol/L Carbon Dioxide 24 (22-30) mmol/L Anion Gap 9 mmol/L BUN 14 (7-17) mg/dL Creatinine 0.79 (0.52-1.04) mg/dL Est GFR (CKD-EPI)AfAm 89 (>60 ml/min/1.73 sqM) Est GFR (CKD-EPI)NonAf 77 (>60 ml/min/1.73 sqM) Glucose 91 (74-99) mg/dL Plasma Lactic Acid [place] 1.5 (0.7-2.0) mmol/L Calcium 8.8 (8.4-10.2) mg/dL Magnesium 1.7 (1.6-2.3) mg/dL Total Bilirubin 0.5 (0.2-1.3) mg/dL AST 63 H (14-36) U/L ALT 27 (4-34) U/L Alkaline Phosphatase 132 H (38-126) U/L Troponin I (0.000-0.034) ng/mL NT-Pro-B Natriuret Pep pg/mL Total Protein 6.6 (6.3-8.2) g/dL Albumin 3.2 L (3.5-5.0) g/dL 09/06/22 09/06/22 09/06/22 Range/Units 16:08 16:08 16:10 WBC (3.8-10.6) k/uL RBC (3.80-5.40) m/uL Hgb (11.4-16.0) gm/dL Hct (34.0-46.0) % MCV (80.0-100.0) fL MCH (25.0-35.0) pg MCHC (31.0-37.0) g/dL RDW (11.5-15.5) % Plt Count (150-450) k/uL MPV Neutrophils % (Manual) % Lymphocytes % (Manual) % Monocytes % (Manual) % Eosinophils % (Manual) % Basophils % (Manual) % Neutrophils # (Manual) (1.3-7.7) k/uL Lymphocytes # (Manual) (1.0-4.8) k/uL Monocytes # (Manual) (0-1.0) k/uL Eosinophils # (Manual) (0-0.7) k/uL Basophils # (Manual) (0-0.2) k/uL Nucleated RBCs (0-0) /100 WBC Manual Slide Review Hypochromasia Anisocytosis Microcytosis PT 11.9 (9.0-12.0) sec INR 1.1 (<1.2) APTT 23.1 (22.0-30.0) sec D-Dimer 0.94 H (<0.60) mg/L FEU Sodium (137-145) mmol/L Potassium (3.5-5.1) mmol/L Chloride (98-107) mmol/L Carbon Dioxide (22-30) mmol/L Anion Gap mmol/L BUN (7-17) mg/dL Creatinine (0.52-1.04) mg/dL Est GFR (CKD-EPI)AfAm (>60 ml/min/1.73 sqM) Est GFR (CKD-EPI)NonAf (>60 ml/min/1.73 sqM) Glucose (74-99) mg/dL Plasma Lactic Acid [place] (0.7-2.0) mmol/L Calcium (8.4-10.2) mg/dL Magnesium (1.6-2.3) mg/dL Total Bilirubin (0.2-1.3) mg/dL AST (14-36) U/L ALT (4-34) U/L Alkaline Phosphatase (38-126) U/L Troponin I <0.012 (0.000-0.034) ng/mL NT-Pro-B Natriuret Pep 502 pg/mL Total Protein (6.3-8.2) g/dL Albumin (3.5-5.0) g/dL Critical Care Time Critical Care Time: Yes Total Critical Care Time: 35 Disposition Clinical Impression: Acute exacerbation of chronic obstructive pulmonary disease Disposition: ADMITTED IP TO THIS HOSP Referrals: Teja Lozano MD [Primary Care Provider] - 1-2 days Time of Disposition: 20:02
[2022-09-06] MEDS ORDERED: IPRATROPIUM-ALBUTEROL 3 ML NEB INHALATION STA ×3 (15:29→20:04)
[2022-09-06 16:20] LABS: Anisocytosis Slight; HCT 32.4 % (34.0-46.0); HGB 9.6 gm/dL (11.4-16.0); Hypochromasia Marked; MCH 22.2 pg (25.0-35.0); MCHC 29.6 g/dL (31.0-37.0); MCV 74.9 fL (80.0-100.0); Mean Platelet Volume 7.6; Microcytosis Moderate; Platelet Count 237 k/uL (150-450); RBC 4.32 m/uL (3.80-5.40); RDW 17.9 % (11.5-15.5); WBC 7.2 k/uL (3.8-10.6)
--- NOTE | 2022-09-06 16:32 | XR ---
EXAMINATION TYPE: XR chest 2V DATE OF EXAM: 09/06/2022 COMPARISON: 06/10/2021 HISTORY: Shortness of breath TECHNIQUE: Frontal and lateral views of the chest are obtained. FINDINGS: Scattered senescent parenchymal changes noted. Hyperinflation compatible with COPD. There is cardiomegaly with pulmonary venous congestion and scattered infiltrates. On the lateral proj ection appears to be small pleural effusion. Correlate for features of congestive failure. Infiltrate of other etiology not excluded. Changes of median sternotomy and CABG. Focal eventration right hemid iaphragm. Mediastinal structures are stable and grossly unremarkable. No evidence for hilar prominence. Degenerative changes dorsal spine. IMPRESSION: 1. There is cardiomegaly with pulmonary venous congestion and scattered infiltrates. On the lateral p rojection there appears to be small pleural effusion. Correlate for features of congestive failure. I nfiltrate of other etiology not excluded.
[2022-09-06 16:34] LABS: Albumin 3.2 g/dL (3.5-5.0); Calcium 8.8 mg/dL (8.4-10.2); Magnesium 1.7 mg/dL (1.6-2.3); Potassium 4.2 mmol/L (3.5-5.1); Total Bilirubin 0.5 mg/dL (0.2-1.3); Total Protein 6.6 g/dL (6.3-8.2)
[2022-09-06 16:37] LABS: INR 1.1 (<1.2); Partial Thromboplastin Time 23.1 sec (22.0-30.0); Prothrombin Time 11.9 sec (9.0-12.0)
[2022-09-06 17:12] LABS: Basophils # (M) 0.07 k/uL (0-0.2); Eosinophils # (M) 0.14 k/uL (0-0.7); Lymphocytes # (M) 0.36 k/uL (1.0-4.8); Monocytes # (M) 0.94 k/uL (0-1.0); Neutrophils # (M) 5.69 k/uL (1.3-7.7); Neutrophils % (M) 79 %; Nucleated Red Blood Cells 0 /100 WBC (0-0); Total Cells Counted 100
--- NOTE | 2022-09-06 19:40 | CT ---
CT CHEST FOR PULMONARY EMBOLISM. EXAMINATION TYPE: CT chest angio for PE DATE OF EXAM: 09/06/2022 INDICATION: R/O PE CT DLP: 717.3 mGycm, Automated exposure control for dose reduction was used. CONTRAST: Patient injected with 100cc mL of Isovue 370. COMPARISON: 06/05/2021 TECHNIQUE: CT of the chest is performed on a spiral scan at 2 mm thick sections. Study is performed with intravenous contrast timed for evaluation for pulmonary embolism. This will limit additional po rtions of the evaluation. FINDINGS: No persistent filling defects are evident to suggest an acute pulmonary embolism. No mediastinal or hilar adenopathy enlarged by CT criteria is evident. The ascending aorta diameter at the level of the main pulmonary artery is 3.4 cm. The main pulmonary artery diameter at the bifur cation is 2.6 cm. There is a small right pleural effusion. Some compressive atelectasis is adjacent to the right pleura l effusion. Some pleural thickening is along the left lateral lung base. Example image 701 image [id number]. Follow-up ca n be performed. Limited CT section through the upper abdomen are unremarkable. IMPRESSIONS: 1. No acute pulmonary embolism. 2. Small right pleural effusion with adjacent compressive atelectasis.. 3. Mild pleural thickening left lung base
[2022-09-06] MEDS ORDERED: methylPREDNISolone SOD SUCCI 125 MG/2 ML VIAL IV STA (19:57)
[2022-09-06] MEDS ORDERED: NALOXONE 0.4 MG/ML 1 ML VIAL IVP PRN (20:02)
[2022-09-06] MEDS ORDERED: IPRATROPIUM-ALBUTEROL 3 ML NEB INHALATION PRN (20:02)
[2022-09-06] MEDS ORDERED: AMOXIC-POT CLAV 875-125MG 1 EACH TAB PO STA (20:03)
[2022-09-07] MEDS ORDERED: HYDROcodone/APAP 10-325MG 1 EACH TAB PO ONE (00:21)
[2022-09-07] MEDS: methylPREDNISolone SOD SUCCI 125 MG/2 ML VIAL IV SCH ×5 (00:33→23:20)
[2022-09-07] MEDS ORDERED: MORPHINE SULFATE 2 MG/ML SYRINGE IVP STA (01:59)
[2022-09-07] MEDS ORDERED: diphenhydrAMINE 50 MG/ML 1 ML VIAL IVP STA (02:07)
--- NOTE | 2022-09-07 02:09 | P.HPIM ---
History of Present Illness H&P Date: 09/06/22 The patient is a 67-year-old female with a PMH of CAD status post CABG, A. fib on Eliquis, COPD, type II DM, hypertension, hyperlipidemia who presented to the emergency room with complaints of shortness of breath. The patient reports that over the past 2-3 weeks, she has noticed gradually worsening shortness of breath with worsening exercise tolerance. Patient reports a long-standing history of hip osteoarthritis and polio with resulting right-sided lower extremity weakness. Patient states that she normally ambulates with a walker now and had been doing well until this past few days. She denies experiencing chest discomfort or palpitations. Also denied fever, chills, nausea, vomiting. The patient underwent an extensive elevation in the emergency room with this chest CT angiogram for PE showing a small right-sided pleural effusion as well as mild pleural thickening of the left lung base. EKG reveals sinus rhythm with left axis deviation and right bundle branch block at 64 bpm as reviewed by me. Laboratory evaluation was remarkable for hemoglobin of 9.6, MCV 74.9, AST 63, and alk phos 132 troponin less than 0.012. ED documentation reviewed and case discussed with ED provider. Review of systems: Pertinent positives and negatives as discussed in HPI, a complete review of s ystems was performed and all other systems are negative. Physical examination: Vital signs reviewed General: non toxic, no distress, appears at stated age, normal weight Derm: no unusual rashes/lesions, warm Head: atraumatic, normocephalic, symmetric Eyes: EOMI, no lid lag, anicteric sclera, pupils equal round reactive to light ENT: Nose and ears atraumatic Neck: No cervical lymphadenopathy, trachea midline, supple Mouth: no lip lesion, mucus membranes moist Cardiovascular: S1S2 reg, no murmur, positive dorsalis pedis pulse bilateral, no edema Lungs: Scattered rhonchi, no rales, no accessory muscle use Abdominal: soft, nontender to palpation, no guarding Ext: muscle strength 5 out of 5 in all 4 extremities grossly, no gross muscle atrophy, no contractures, Neuro: CN II-XI grossly intact, no gross focal neuro deficits Psych: Alert, oriented, appropriate affect Assessment: Acute COPD exacerbation Acute hypoxic respiratory failure likely secondary to COPD exacerbation Microcytic anemia Chronic conditions: COPD, A. fib, type II DM, hypertension, hyperlipidemia Imaging: Chest CT angiogram for PE showing a small right-sided pleural effusion as well as mild pleural thickening of the left lung base. EKG reveals sinus rhythm with left axis deviation and right bundle branch block at 64 bpm as reviewed by me. Data Review: Laboratory evaluation was remarkable for hemoglobin of 9.6, MCV 74.9, AST 63, and alk phos 132 troponin less than 0.012. Plan: Continue Solu-Medrol 60 mg every 6 hours Continue DuoNeb's with [id number] and as needed Check iron panel Continue with home medications DVT prophylaxis: Heparin subcu The patient is admitted with an anticipated greater than than 2 midnight stay for evaluation of acute COPD exacerbation CODE STATUS: Full Code Discussed with: Patient Anticipated discharge date: To [address]: Home Past Medical History Past Medical History: Atrial Fibrillation, Coronary Artery Disease (CAD), COPD, Diabetes Mellitus, GERD/Reflux, Hyperlipidemia Additional Past Medical History / Comment(s): post polio syndrome rt side, neuropathy, hx. spontaneous pneumothorax, bowel resection for sepsis/infection,cut on toe History of Any Multi-Drug Resistant Organisms: ESBL Date of last positivie culture/infection: 06/29/21 MDRO Source:: ESBL BACK Past Surgical History: Back Surgery, Bowel Resection, Breast Surgery, Cholecystectomy, Coronary Bypass/CABG, Ear Surgery, Tonsillectomy Additional Past Surgical History / Comment(s): triple bypass 2013, left salpingo-oophorectomy, laminectomy L4 L5x3, ear surgery x 3 Past Anesthesia/Blood Transfusion Reactions: No Reported Reaction Past Psychological History: Anxiety, Depression Smoking Status: Former smoker Past Alcohol Use History: Occasional Past Drug Use History: None Reported - Past Family History Mother Family Medical History: Cancer Medications and Allergies Home Medications Medication Instructions Recorded Confirmed Type Atorvastatin [Lipitor] 40 mg PO HS 03/23/16 09/06/22 History DULoxetine HCL [Cymbalta] 60 mg PO HS 03/23/16 09/06/22 History Metoprolol Tartrate [Lopressor] 50 mg PO BID 03/23/16 09/06/22 History Omeprazole [PriLOSEC] 20 mg PO DAILY 03/23/16 09/06/22 History Montelukast [Singulair] 10 mg PO DAILY 05/18/21 09/06/22 History Ubidecarenone [Co Q-10] 200 mg PO DAILY 05/18/21 09/06/22 History Gabapentin 600 mg PO TID 06/29/21 09/06/22 History Budesonide-Formot 160-4.5 Mcg 2 puff INHALATION RT-BID 04/06/22 09/06/22 History [Symbicort 160-4.5 Mcg Inhaler] Insulin Glargine,Hum.rec.anlog 30 units SQ DAILY 04/06/22 09/06/22 History [Lantus Solostar Pen] Biotin [Biotin Disolve] 10,000 mcg PO DAILY 09/03/22 09/06/22 History Letrozole [Femara] 2.5 mg PO DAILY 09/03/22 09/06/22 History Apixaban [Eliquis] 5 mg PO BID 09/06/22 09/06/22 History Cholecalciferol [Vitamin D3 (125 125 mcg PO DAILY 09/06/22 09/06/22 History Mcg = 5000 Iu)] Cyanocobalamin (Vitamin B-12) 2,000 mcg PO DAILY 09/06/22 09/06/22 History [Vitamin B-12] HYDROcodone/APAP 10-325MG [[place] 1 tab PO Q6H PRN 09/06/22 09/06/22 History 10-325] Allergies Allergy/AdvReac Type Severity Reaction Status Date / Time morphine Allergy rash,itchin Verified 09/06/22 18:12 g Sulfa (Sulfonamide Allergy Rash/Hives Verified 09/06/22 18:12 Antibiotics) surgical susy AdvReac Unknown Uncoded 09/06/22 15:24 Physical Exam Vitals: Vital Signs Temp Pulse Resp BP Pulse Ox 09/06/22 20:47 70 18 100/78 95 09/06/22 20:34 69 09/06/22 20:20 68 09/06/22 17:06 67 20 134/66 93 L 09/06/22 15:13 98.2 F 58 L 20 125/62 96 Intake and Output 09/06/22 09/06/22 09/07/22 14:59 22:59 06:59 Other: Weight 86.636 kg Results CBC & Chem 7: 09/06/22 16:08 09/06/22 16:08 Labs: Abnormal Lab Results - Last 24 Hours (Table) 09/06/22 09/06/22 09/06/22 Range/Units 16:08 16:08 16:10 Hgb 9.6 L (11.4-16.0) gm/dL Hct 32.4 L (34.0-46.0) % MCV 74.9 L (80.0-100.0) fL MCH 22.2 L (25.0-35.0) pg MCHC 29.6 L (31.0-37.0) g/dL RDW 17.9 H (11.5-15.5) % Lymphocytes # (Manual) 0.36 L (1.0-4.8) k/uL D-Dimer 0.94 H (<0.60) mg/L FEU AST 63 H (14-36) U/L Alkaline Phosphatase 132 H (38-126) U/L Albumin 3.2 L (3.5-5.0) g/dL
[2022-09-07] MEDS ORDERED: ACETAMINOPHEN TAB 325 MG TAB PO STA (05:09)
[2022-09-07 06:23] LABS: Anisocytosis Slight; HCT 31.8 % (34.0-46.0); HGB 9.1 gm/dL (11.4-16.0); Hypochromasia Marked; MCH 22.6 pg (25.0-35.0); MCHC 28.5 g/dL (31.0-37.0); MCV 79.1 fL (80.0-100.0); Mean Platelet Volume 9.1; Microcytosis Slight; Platelet Count 222 k/uL (150-450); RBC 4.02 m/uL (3.80-5.40); WBC 4.8 k/uL (3.8-10.6)
[2022-09-07 06:41] LABS: African American GFR (CKD) 77 (>60 ml/min/1.73 sqM); Anion Gap 13 mmol/L; Blood Urea Nitrogen 14 mg/dL (7-17); Calcium 8.8 mg/dL (8.4-10.2); Carbon Dioxide 18 mmol/L (22-30); Chloride 108 mmol/L (98-107); Glucose 292 mg/dL (74-99); Non-African American GFR(CKD) 66 (>60 ml/min/1.73 sqM); Potassium 4.5 mmol/L (3.5-5.1); Sodium 139 mmol/L (137-145)
[2022-09-07] MEDS ORDERED: HEPARIN SODIUM,PORCINE/PF 5,000 UNIT/0.5 ML SYRINGE SQ SCH (08:00)
[2022-09-07] MEDS: IPRATROPIUM-ALBUTEROL 3 ML NEB INHALATION SCH ×4 (08:40→21:47)
[2022-09-07 09:04] LABS: % Iron Saturation 3.32 (12.00-45.00); Ferritin 35.5 ng/mL (10.0-291.0)
[2022-09-07 09:12] LABS: Glucose,Whole Blood 216 mg/dL (70-110)
[2022-09-07] MEDS ORDERED: HYDROcodone/APAP 10-325MG 1 EACH TAB PO PRN (09:49)
[2022-09-07] MEDS: AMOXIC-POT CLAV 875-125MG 1 EACH TAB PO SCH ×2 (10:00→21:51)
[2022-09-07] MEDS: GABAPENTIN 300 MG CAP PO SCH ×3 (10:07→21:29)
[2022-09-07] MEDS ORDERED: HYDROmorphone 2 MG TAB PO STA (10:47)
[2022-09-07 11:16] LABS: Glucose,Whole Blood 224 mg/dL (70-110)
[2022-09-07] MEDS: INSULIN ASPART (NovoLOG) 100 UNIT/ML VIAL SQ SCH ×3 (11:25→21:29)
--- NOTE | 2022-09-07 14:25 | P.PN ---
Subjective Progress Note Date: 09/07/22 Hospital Course: 67-year-old female with a PMH of CAD status post CABG, A. fib on Eliquis, COPD, type II DM, hypertension, hyperlipidemia who presented to the emergency room with complaints of shortness of breath. The patient underwent an extensive elevation in the emergency room with this chest CT angiogram for PE showing a small right-sided pleural effusion as well as mild pleural thickening of the left lung base. EKG reveals sinus rhythm with left axis deviation and right bundle branch block at 64 bpm as reviewed by me. Laboratory evaluation was remarkable for hemoglobin of 9.6, MCV 74.9, AST 63, and alk phos 132 troponin less than 0.012. Subjective: Patient examined at bedside. No acute events overnight. Claims that breathing is better. Pertinent positives and negatives as discussed above, a complete review of systems was performed and all other systems are negative. Vitals Signs Reviewed. General: non toxic, no distress, appears at stated age, normal weight Derm: no unusual rashes/lesions, warm Head: atraumatic, normocephalic, symmetric Eyes: EOMI, no lid lag, anicteric sclera, pupils equal round reactive to light ENT: Nose and ears atraumatic Neck: No cervical lymphadenopathy, trachea midline, supple Mouth: no lip lesion, mucus membranes moist Cardiovascular: S1S2 reg, no murmur, positive dorsalis pedis pulse bilateral, no edema Lungs: Scattered rhonchi, no rales, no accessory muscle use Abdominal: soft, nontender to palpation, no guarding Ext: muscle strength 5 out of 5 in all 4 extremities grossly, no gross muscle atrophy, no contractures, Neuro: CN II-XI grossly intact, no gross focal neuro deficits Psych: Alert, oriented, appropriate affect Data Reviewed Today: Pertinent Labs: Hemoglobin 9.1, bicarb 18, creatinine 0.89, iron 13, percent saturation 3.32 Imaging: None today Assessment and Plan: Active: Acute COPD exacerbation Acute hypoxic respiratory failure Possible community-acquired pneumonia Microcytic anemia Type 2 diabetes -Continue to wean oxygen -Continue bronchodilators, Solu-Medrol 60 mg IV every 6 hours, Augmentin oral -Microcytic anemia likely iron deficiency, started on oral iron -Needs outpatient follow up for colonoscopy -[facility]I Chronic: COPD, A. fib, type II DM, hypertension, hyperlipidemia, neuropathy DVT ppx: eliquis Code status: full code Anticipated discharge place: pending clinical course Anticipated discharge time: pending clinical course Objective - Vital Signs Vital signs: Vital Signs Temp 97.9 F 09/07/22 11:12 Pulse 83 09/07/22 11:47 Resp 18 09/07/22 11:12 BP 163/70 09/07/22 11:12 Pulse Ox 92 L 09/07/22 11:12 FiO2 Intake & Output 09/06/22 09/07/22 09/07/22 18:59 06:59 18:59 Weight 86.636 kg Other: Voiding Method Toilet - Labs CBC & Chem 7: 09/07/22 05:38 09/07/22 05:38 Labs: Abnormal Lab Results - Last 24 Hours (Table) 09/06/22 09/06/22 09/06/22 Range/Units 16:08 16:08 16:10 Hgb 9.6 L (11.4-16.0) gm/dL Hct 32.4 L (34.0-46.0) % MCV 74.9 L (80.0-100.0) fL MCH 22.2 L (25.0-35.0) pg MCHC 29.6 L (31.0-37.0) g/dL RDW 17.9 H (11.5-15.5) % Lymphocytes # (Manual) 0.36 L (1.0-4.8) k/uL D-Dimer 0.94 H (<0.60) mg/L FEU Chloride (98-107) mmol/L Carbon Dioxide (22-30) mmol/L Glucose (74-99) mg/dL POC Glucose (mg/dL) (70-110) mg/dL Iron (50-170) ug/dL % Saturation (12.00-45.00) AST 63 H (14-36) U/L Alkaline Phosphatase 132 H (38-126) U/L Albumin 3.2 L (3.5-5.0) g/dL 09/07/22 09/07/22 09/07/22 Range/Units 05:38 05:38 05:38 Hgb 9.1 L (11.4-16.0) gm/dL Hct 31.8 L (34.0-46.0) % MCV 79.1 L (80.0-100.0) fL MCH 22.6 L (25.0-35.0) pg MCHC 28.5 L (31.0-37.0) g/dL RDW 18.0 H (11.5-15.5) % Lymphocytes # (Manual) (1.0-4.8) k/uL D-Dimer (<0.60) mg/L FEU Chloride 108 H (98-107) mmol/L Carbon Dioxide 18 L (22-30) mmol/L Glucose 292 H (74-99) mg/dL POC Glucose (mg/dL) (70-110) mg/dL Iron 13 L (50-170) ug/dL % Saturation 3.32 L (12.00-45.00) AST (14-36) U/L Alkaline Phosphatase (38-126) U/L Albumin (3.5-5.0) g/dL 09/07/22 09/07/22 Range/Units 09:10 11:15 Hgb (11.4-16.0) gm/dL Hct (34.0-46.0) % MCV (80.0-100.0) fL MCH (25.0-35.0) pg MCHC (31.0-37.0) g/dL RDW (11.5-15.5) % Lymphocytes # (Manual) (1.0-4.8) k/uL D-Dimer (<0.60) mg/L FEU Chloride (98-107) mmol/L Carbon Dioxide (22-30) mmol/L Glucose (74-99) mg/dL POC Glucose (mg/dL) 216 H 224 H (70-110) mg/dL Iron (50-170) ug/dL % Saturation (12.00-45.00) AST (14-36) U/L Alkaline Phosphatase (38-126) U/L Albumin (3.5-5.0) g/dL
[2022-09-07] MEDS: ASCORBIC ACID 500 MG TAB PO SCH (15:42)
[2022-09-07] MEDS: FERROUS SULFATE 325 MG TAB PO SCH (15:42)
[2022-09-07] MEDS ORDERED: GABAPENTIN 300 MG CAP PO SCH (16:00)
[2022-09-07 16:29] LABS: Glucose,Whole Blood 298 mg/dL (70-110)
[2022-09-07 20:57] LABS: Glucose,Whole Blood 231 mg/dL (70-110)
[2022-09-07] MEDS: METOPROLOL TARTRATE 50 MG TAB PO SCH (21:29)
[2022-09-07] MEDS: ATORVASTATIN 40 MG TAB PO SCH (21:29)
[2022-09-07] MEDS: DULoxetine HCL 60 MG CAPSULE.DR PO SCH (21:29)
[2022-09-07] MEDS: APIXABAN 5 MG TAB PO SCH (21:29)
[2022-09-07] MEDS: SYMBICORT 160-4.5 MCG INHALER INHALATION SCH (21:47)
[2022-09-08 05:43] LABS: Anisocytosis Slight; Basophils % (A) 0 %; Eosinophils % (A) 0 %; HCT 31.4 % (34.0-46.0); HGB 9.1 gm/dL (11.4-16.0); Hypochromasia Marked; Lymphocytes # (A) 0.6 k/uL (1.0-4.8); Lymphocytes % (A) 7 %; MCH 21.7 pg (25.0-35.0); MCHC 28.9 g/dL (31.0-37.0); MCV 75.2 fL (80.0-100.0); Microcytosis Moderate; Monocytes # (A) 0.2 k/uL (0-1.0); Monocytes % (A) 3 %; Neutrophils # (A) 7.6 k/uL (1.3-7.7); Neutrophils % (A) 89 %; Platelet Count 223 k/uL (150-450); RBC 4.18 m/uL (3.80-5.40); WBC 8.5 k/uL (3.8-10.6)
[2022-09-08 05:54] LABS: African American GFR (CKD) 82 (>60 ml/min/1.73 sqM); Anion Gap 10 mmol/L; Blood Urea Nitrogen 23 mg/dL (7-17); Calcium 9.2 mg/dL (8.4-10.2); Carbon Dioxide 22 mmol/L (22-30); Chloride 107 mmol/L (98-107); Glucose 185 mg/dL (74-99); Non-African American GFR(CKD) 71 (>60 ml/min/1.73 sqM); Potassium 4.5 mmol/L (3.5-5.1); Sodium 139 mmol/L (137-145)
[2022-09-08 06:12] LABS: Glucose,Whole Blood 174 mg/dL (70-110)
[2022-09-08] MEDS: PANTOPRAZOLE 40 MG TABLET PO SCH (06:48)
[2022-09-08] MEDS: methylPREDNISolone SOD SUCCI 125 MG/2 ML VIAL IV SCH ×4 (06:48→23:41)
[2022-09-08] MEDS: INSULIN ASPART (NovoLOG) 100 UNIT/ML VIAL SQ SCH ×4 (06:49→21:14)
[2022-09-08] MEDS: GABAPENTIN 300 MG CAP PO SCH ×3 (08:47→21:14)
[2022-09-08] MEDS: ASCORBIC ACID 500 MG TAB PO SCH (08:47)
[2022-09-08] MEDS: AMOXIC-POT CLAV 875-125MG 1 EACH TAB PO SCH ×2 (08:48→21:14)
[2022-09-08] MEDS: METOPROLOL TARTRATE 50 MG TAB PO SCH ×2 (08:48→21:14)
[2022-09-08] MEDS: INSULIN DETEMIR (LEVEMIR) 100 UNIT/ML SYR SQ SCH (08:48)
[2022-09-08] MEDS: CHOLECALCIFEROL 125 MCG (5000 IU) TABLET PO SCH (08:48)
[2022-09-08] MEDS: CYANOCOBALAMIN 500 MCG TAB PO SCH (08:48)
[2022-09-08] MEDS: LETROZOLE 2.5 MG TAB PO SCH (08:48)
[2022-09-08] MEDS: MONTELUKAST 10 MG TAB PO SCH (08:48)
[2022-09-08] MEDS: APIXABAN 5 MG TAB PO SCH ×2 (08:48→21:14)
[2022-09-08] MEDS ORDERED: NON FORMULARY DRUG (Biotin [Biotin Disolve] 10,000 MCG Tablet) PO SCH (09:00)
[2022-09-08] MEDS ORDERED: NON FORMULARY DRUG (Ubidecarenone [Co Q-10] 100 MG Capsule) PO SCH (09:00)
[2022-09-08] MEDS: SYMBICORT 160-4.5 MCG INHALER INHALATION SCH ×2 (09:15→19:46)
[2022-09-08] MEDS: IPRATROPIUM-ALBUTEROL 3 ML NEB INHALATION SCH ×4 (09:16→19:46)
[2022-09-08 11:44] LABS: Glucose,Whole Blood 258 mg/dL (70-110)
[2022-09-08] MEDS: FERROUS SULFATE 325 MG TAB PO SCH (12:09)
--- NOTE | 2022-09-08 15:29 | P.PN ---
Subjective Progress Note Date: 09/08/22 Hospital Course: 67-year-old female with a PMH of CAD status post CABG, A. fib on Eliquis, COPD, type II DM, hypertension, hyperlipidemia who presented to the emergency room with complaints of shortness of breath. The patient underwent an extensive elevation in the emergency room with this chest CT angiogram for PE showing a small right-sided pleural effusion as well as mild pleural thickening of the left lung base. EKG reveals sinus rhythm with left axis deviation and right bundle branch block at 64 bpm as reviewed by me. Laboratory evaluation was remarkable for hemoglobin of 9.6, MCV 74.9, AST 63, and alk phos 132 troponin less than 0.012. Subjective: Patient examined at bedside. No acute events overnight. Claims that breathing is better. Pertinent positives and negatives as discussed above, a complete review of systems was performed and all other systems are negative. Vitals Signs Reviewed. General: non toxic, no distress, appears at stated age, normal weight Derm: no unusual rashes/lesions, warm Head: atraumatic, normocephalic, symmetric Eyes: EOMI, no lid lag, anicteric sclera, pupils equal round reactive to light ENT: Nose and ears atraumatic Neck: No cervical lymphadenopathy, trachea midline, supple Mouth: no lip lesion, mucus membranes moist Cardiovascular: S1S2 reg, no murmur, positive dorsalis pedis pulse bilateral, no edema Lungs: Scattered rhonchi, no rales, no accessory muscle use Abdominal: soft, nontender to palpation, no guarding Ext: muscle strength 5 out of 5 in all 4 extremities grossly, no gross muscle atrophy, no contractures, Neuro: CN II-XI grossly intact, no gross focal neuro deficits Psych: Alert, oriented, appropriate affect Data Reviewed Today: Pertinent Labs: Hemoglobin 9.1, potassium 4.5, creatinine 0.84, blood sugars ranged between 174-90 Imaging: None today Assessment and Plan: Active: Acute COPD exacerbation Acute hypoxic respiratory failure Possible community-acquired pneumonia Microcytic anemia Type 2 diabetes -Continue to wean oxygen -Continue bronchodilators, Solu-Medrol 60 mg IV every 6 hours, Augmentin oral -ProCalcitonin pending -Microcytic anemia likely iron deficiency, on oral iron -Needs outpatient follow up for colonoscopy -[facility] Chronic: COPD, A. fib, type II DM, hypertension, hyperlipidemia, neuropathy DVT ppx: eliquis Code status: full code Anticipated discharge place: Home Anticipated discharge time: Likely tomorrow Objective - Vital Signs Vital signs: Vital Signs Temp 97.6 F 09/08/22 13:24 Pulse 71 09/08/22 13:24 Resp 18 09/08/22 13:24 BP 132/75 09/08/22 13:24 Pulse Ox 92 L 09/08/22 13:24 FiO2 Intake & Output 09/07/22 09/08/22 09/08/22 18:59 06:59 18:59 Intake Total 360 Balance 360 Intake: Oral 360 Other: Voiding Method Toilet Toilet Toilet # Voids 0 1 - Labs CBC & Chem 7: 09/08/22 05:24 09/08/22 05:24 Labs: Abnormal Lab Results - Last 24 Hours (Table) 09/07/22 09/07/22 09/08/22 Range/Units 16:27 20:55 05:24 Hgb 9.1 L (11.4-16.0) gm/dL Hct 31.4 L (34.0-46.0) % MCV 75.2 L (80.0-100.0) fL MCH 21.7 L (25.0-35.0) pg MCHC 28.9 L (31.0-37.0) g/dL RDW 18.0 H (11.5-15.5) % Lymphocytes # 0.6 L (1.0-4.8) k/uL BUN (7-17) mg/dL Glucose (74-99) mg/dL POC Glucose (mg/dL) 298 H 231 H (70-110) mg/dL 09/08/22 09/08/22 09/08/22 Range/Units 05:24 06:10 11:42 Hgb (11.4-16.0) gm/dL Hct (34.0-46.0) % MCV (80.0-100.0) fL MCH (25.0-35.0) pg MCHC (31.0-37.0) g/dL RDW (11.5-15.5) % Lymphocytes # (1.0-4.8) k/uL BUN 23 H (7-17) mg/dL Glucose 185 H (74-99) mg/dL POC Glucose (mg/dL) 174 H 258 H (70-110) mg/dL
[2022-09-08 16:25] LABS: Glucose,Whole Blood 205 mg/dL (70-110)
[2022-09-08 19:58] LABS: Glucose,Whole Blood 286 mg/dL (70-110)
[2022-09-08] MEDS: ATORVASTATIN 40 MG TAB PO SCH (21:14)
[2022-09-08] MEDS: DULoxetine HCL 60 MG CAPSULE.DR PO SCH (21:14)
[2022-09-09 06:17] LABS: Glucose,Whole Blood 218 mg/dL (70-110)
[2022-09-09] MEDS: INSULIN ASPART (NovoLOG) 100 UNIT/ML VIAL SQ SCH ×2 (06:42→11:56)
[2022-09-09] MEDS: PANTOPRAZOLE 40 MG TABLET PO SCH (06:42)
[2022-09-09] MEDS: methylPREDNISolone SOD SUCCI 125 MG/2 ML VIAL IV SCH ×2 (06:42→11:56)
[2022-09-09] MEDS: METOPROLOL TARTRATE 50 MG TAB PO SCH (08:54)
[2022-09-09] MEDS: CHOLECALCIFEROL 125 MCG (5000 IU) TABLET PO SCH (08:54)
[2022-09-09] MEDS: ASCORBIC ACID 500 MG TAB PO SCH (08:54)
[2022-09-09] MEDS: APIXABAN 5 MG TAB PO SCH (08:54)
[2022-09-09] MEDS: GABAPENTIN 300 MG CAP PO SCH (08:54)
[2022-09-09] MEDS: CYANOCOBALAMIN 500 MCG TAB PO SCH (08:54)
[2022-09-09] MEDS: MONTELUKAST 10 MG TAB PO SCH (08:54)
[2022-09-09] MEDS: LETROZOLE 2.5 MG TAB PO SCH (08:55)
[2022-09-09] MEDS: INSULIN DETEMIR (LEVEMIR) 100 UNIT/ML SYR SQ SCH (08:55)
[2022-09-09] MEDS: AMOXIC-POT CLAV 875-125MG 1 EACH TAB PO SCH (08:55)
[2022-09-09] MEDS: IPRATROPIUM-ALBUTEROL 3 ML NEB INHALATION SCH ×2 (09:49→12:33)
[2022-09-09] MEDS: SYMBICORT 160-4.5 MCG INHALER INHALATION SCH (09:49)
[2022-09-09 11:29] LABS: Glucose,Whole Blood 170 mg/dL (70-110)
[2022-09-09] MEDS: FERROUS SULFATE 325 MG TAB PO SCH (11:56)
--- NOTE | 2022-09-09 13:11 | P.DS ---
Providers Date of admission: 09/06/22 20:04 Expected date of discharge: 09/09/22 Attending physician: Mary Sinclair MD Primary care physician: Teja Lozano MD Hospital Course: Discharge Diagnosis: Acute COPD exacerbation Acute hypoxic respiratory failure Community-acquired pneumonia Microcytic anemia Type 2 diabetes Hospital Course: 67-year-old female with a PMH of CAD status post CABG, A. fib on Eliquis, COPD, type II DM, hypertension, hyperlipidemia who presented to the emergency room with complaints of shortness of breath. The patient underwent an extensive elevation in the emergency room with this chest CT angiogram for PE showing a small right-sided pleural effusion as well as mild pleural thickening of the left lung base. EKG reveals sinus rhythm with left axis deviation and right bundle branch block at 64 bpm as reviewed by me. Laboratory evaluation was remarkable for hemoglobin of 9.6, MCV 74.9, AST 63, and alk phos 132 troponin less than 0.012. ProCalcitonin was 0.16. Patient started on bronchodilators, IV Solu-Medrol, and oral antibiotics. Was admitted for COPD exacerbation improved at the time of discharge. Patient seen and examined at bedside. Vital signs reviewed and stable. General: nontoxic, no distress, appears at stated age Derm: warm, dry Head: atraumatic, normocephalic, symmetric Eyes: EOMI, no lid lag, anicteric sclera Mouth: no lip lesion, mucus membranes moist Cardiovascular: S1S2 reg, no murmur Lungs: CTA bilateral, no rhonchi, no rales , no accessory muscle use Abdominal: soft, nontender to palpation, no guarding, no appreciable organomegaly Ext: no gross muscle atrophy, no edema, no contractures Neuro: CN II-XI grossly intact, no focal neuro deficits Psych: Alert, oriented, appropriate affect A total of 33 minutes of time were spent preparing this complex discharge summary. Patient was discharged on 09/09/22 at 1310. Patient Condition at Discharge: Stable Plan - Discharge Summary Discharge Rx Participant: No New Discharge Prescriptions: New Amoxic-Pot Clav 875-125Mg [Augmentin 875-125] 1 each PO Q12HR #6 tab predniSONE [Deltasone] 40 mg PO DAILY #6 tab Azithromycin [Zithromax Tri-Vlad (3 tabs)] 500 mg PO DAILY 3 Days #3 tab Ferrous Sulfate [Iron (65 MG Elemental)] 325 mg PO W/LUNCH #60 tab Ascorbic Acid [Vitamin C] 250 mg PO DAILY #60 tab Continue Omeprazole [PriLOSEC] 20 mg PO DAILY DULoxetine HCL [Cymbalta] 60 mg PO HS Atorvastatin [Lipitor] 40 mg PO HS Metoprolol Tartrate [Lopressor] 50 mg PO BID Budesonide-Formot 160-4.5 Mcg [Symbicort 160-4.5 Mcg Inhaler] 2 puff INHALATION RT-BID Insulin Glargine,Hum.rec.anlog [Lantus Solostar Pen] 30 units SQ DAILY Letrozole [Femara] 2.5 mg PO DAILY Biotin [Biotin Disolve] 10,000 mcg PO DAILY Cholecalciferol [Vitamin D3 (125 Mcg = 5000 Iu)] 125 mcg PO DAILY Cyanocobalamin (Vitamin B-12) [Vitamin B-12] 2,000 mcg PO DAILY HYDROcodone/APAP 10-325MG [[place] 10-325] 1 tab PO Q6H PRN PRN Reason: Pain Apixaban [Eliquis] 5 mg PO BID Ubidecarenone [Co Q-10] 200 mg PO DAILY Montelukast [Singulair] 10 mg PO DAILY Gabapentin 600 mg PO TID Discharge Medication List Atorvastatin [Lipitor] 40 mg PO HS 03/23/16 [History] DULoxetine HCL [Cymbalta] 60 mg PO HS 03/23/16 [History] Metoprolol Tartrate [Lopressor] 50 mg PO BID 03/23/16 [History] Omeprazole [PriLOSEC] 20 mg PO DAILY 03/23/16 [History] Montelukast [Singulair] 10 mg PO DAILY 05/18/21 [History] Ubidecarenone [Co Q-10] 200 mg PO DAILY 05/18/21 [History] Gabapentin 600 mg PO TID 06/29/21 [History] Budesonide-Formot 160-4.5 Mcg [Symbicort 160-4.5 Mcg Inhaler] 2 puff INHALATION RT-BID 04/06/22 [History] Insulin Glargine,Hum.rec.anlog [Lantus Solostar Pen] 30 units SQ DAILY 04/06/22 [History] Biotin [Biotin Disolve] 10,000 mcg PO DAILY 09/03/22 [History] Letrozole [Femara] 2.5 mg PO DAILY 09/03/22 [History] Apixaban [Eliquis] 5 mg PO BID 09/06/22 [History] Cholecalciferol [Vitamin D3 (125 Mcg = 5000 Iu)] 125 mcg PO DAILY 09/06/22 [History] Cyanocobalamin (Vitamin B-12) [Vitamin B-12] 2,000 mcg PO DAILY 09/06/22 [History] HYDROcodone/APAP 10-325MG [[place] 10-325] 1 tab PO Q6H PRN 09/06/22 [History] Amoxic-Pot Clav 875-125Mg [Augmentin 875-125] 1 each PO Q12HR #6 tab 09/09/22 [Rx] Ascorbic Acid [Vitamin C] 250 mg PO DAILY #60 tab 09/09/22 [Rx] Azithromycin [Zithromax Tri-Vlad (3 tabs)] 500 mg PO DAILY 3 Days #3 tab 09/09/22 [Rx] Ferrous Sulfate [Iron (65 MG Elemental)] 325 mg PO W/LUNCH #60 tab 09/09/22 [Rx] predniSONE [Deltasone] 40 mg PO DAILY #6 tab 09/09/22 [Rx] Follow up Appointment(s)/Referral(s): Teja Lozano MD [Primary Care Provider] - 09/10/22 1:00 pm Patient Instructions/Handouts: COPD (Chronic Obstructive Pulmonary Disease) (DC) Activity/Diet/Wound Care/Special Instructions: Please see your PCP. Discharge Disposition: HOME SELF-CARE
[2022-09-09 14:40] VITALS: BP 151/65; PULSE 76; RESP 20; TEMP 97.8
== END 2022-09-09 16:20 | disposition home or self-care (01) | DRG 190 ==
LOC: EC 14:43 → 4SSUR 20:04
PROVIDERS: ADMIT Internal Medicine; ATTEND Internal Medicine
DX: J43.9 Emphysema, unspecified (principal); J18.9 Pneumonia, unspecified organism; J96.01 Acute respiratory failure with hypoxia; I10 Essential (primary) hypertension; I48.91 Unspecified atrial fibrillation; D50.9 Iron deficiency anemia, unspecified; F32.A Depression, unspecified; F41.9 Anxiety disorder, unspecified; G14 Postpolio syndrome; E11.42 Type 2 diabetes mellitus with diabetic polyneuropathy; I45.10 Unspecified right bundle-branch block; E78.5 Hyperlipidemia, unspecified; I25.10 Atherosclerotic heart disease of native coronary artery without angina pectoris; Z95.1 Presence of aortocoronary bypass graft; Z79.01 Long term (current) use of anticoagulants; Z79.51 Long term (current) use of inhaled steroids; Z79.811 Long term (current) use of aromatase inhibitors; Z79.899 Other long term (current) drug therapy; Z88.5 Allergy status to narcotic agent; Z88.2 Allergy status to sulfonamides
CPT/HCPCS: 36415; 71046; 71275; 80048; 80053; 82728; 83540; 83550; 83605; 83735; 83880; 84145; 84484; 85025; 85027; 85379; 85610; 85730; 93005; 94640; 94760; 96361; 96372; 96374; 96375; 96376; 99291

== ENCOUNTER 2022-09-15 05:47 | Inpatient (IN) | payer OTHER ==
[2022-09-15] MEDS ORDERED: methylPREDNISolone SOD SUCCI 125 MG/2 ML VIAL IV STA (06:34)
[2022-09-15] MEDS ORDERED: IPRATROPIUM-ALBUTEROL 3 ML NEB INHALATION STA (06:34)
--- NOTE | 2022-09-15 06:45 | ED ---
General Adult HPI - General Chief complaint: Shortness of Breath Stated complaint: DEMETRA Time Seen by Provider: 09/15/22 06:14 Source: patient, EMS, RN notes reviewed Mode of arrival: EMS Limitations: no limitations - History of Present Illness Initial comments: 67-year-old female presents emergency Department with shortness breath. Patient states she was discharged last from the hospital. Patient is admitted for COPD exacerbation. She states she stepped steroids yesterday she's been noticing increasing shortness of breath throughout the night states felt like she was not getting enough air in. Patient also notes some mild leg swelling. No history of CHF she has mid she had a CABG in 2013. Denies fevers or chills she was not given any recent breathing treatments denies any localized chest pain. Patient does have a history of atrial fibrillation. Patient denies nausea vomiting diarrhea constipation. Patient was discharged from the hospital on oxygen which was new for the patient. - Related Data Home Medications Medication Instructions Recorded Confirmed Atorvastatin [Lipitor] 40 mg PO HS 03/23/16 09/06/22 DULoxetine HCL [Cymbalta] 60 mg PO HS 03/23/16 09/06/22 Metoprolol Tartrate [Lopressor] 50 mg PO BID 03/23/16 09/06/22 Omeprazole [PriLOSEC] 20 mg PO DAILY 03/23/16 09/06/22 Montelukast [Singulair] 10 mg PO DAILY 05/18/21 09/06/22 Ubidecarenone [Co Q-10] 200 mg PO DAILY 05/18/21 09/06/22 Gabapentin 600 mg PO TID 06/29/21 09/06/22 Budesonide-Formot 160-4.5 Mcg 2 puff INHALATION RT-BID 04/06/22 09/06/22 [Symbicort 160-4.5 Mcg Inhaler] Insulin Glargine,Hum.rec.anlog 30 units SQ DAILY 04/06/22 09/06/22 [Lantus Solostar Pen] Biotin [Biotin Disolve] 10,000 mcg PO DAILY 09/03/22 09/06/22 Letrozole [Femara] 2.5 mg PO DAILY 09/03/22 09/06/22 Apixaban [Eliquis] 5 mg PO BID 09/06/22 09/06/22 Cholecalciferol [Vitamin D3 (125 125 mcg PO DAILY 09/06/22 09/06/22 Mcg = 5000 Iu)] Cyanocobalamin (Vitamin B-12) 2,000 mcg PO DAILY 09/06/22 09/06/22 [Vitamin B-12] HYDROcodone/APAP 10-325MG [[place] 1 tab PO Q6H PRN 09/06/22 09/06/22 10-325] Previous Rx's Medication Instructions Recorded Amoxic-Pot Clav 875-125Mg 1 each PO Q12HR #6 tab 09/09/22 [Augmentin 875-125] Ascorbic Acid [Vitamin C] 250 mg PO DAILY #60 tab 09/09/22 Azithromycin [Zithromax Tri-Vlad (3 500 mg PO DAILY 3 Days #3 tab 09/09/22 tabs)] Ferrous Sulfate [Iron (65 MG 325 mg PO W/LUNCH #60 tab 09/09/22 Elemental)] predniSONE [Deltasone] 40 mg PO DAILY #6 tab 09/09/22 Allergies Allergy/AdvReac Type Severity Reaction Status Date / Time morphine Allergy rash,itchin Verified 09/06/22 18:12 g Sulfa (Sulfonamide Allergy Rash/Hives Verified 09/06/22 18:12 Antibiotics) surgical susy AdvReac Unknown Uncoded 09/06/22 15:24 Review of Systems ROS Statement: Those systems with pertinent positive or pertinent negative responses have been documented in the HPI. ROS Other: All systems not noted in ROS Statement are negative. Past Medical History Past Medical History: Atrial Fibrillation, Coronary Artery Disease (CAD), COPD, Diabetes Mellitus, GERD/Reflux, Hyperlipidemia Additional Past Medical History / Comment(s): post polio syndrome rt side, neuropathy, hx. spontaneous pneumothorax, bowel resection for sepsis/infection,cut on toe History of Any Multi-Drug Resistant Organisms: ESBL Date of last positivie culture/infection: 06/29/21 MDRO Source:: ESBL BACK Past Surgical History: Back Surgery, Bowel Resection, Breast Surgery, Cholecystectomy, Coronary Bypass/CABG, Ear Surgery, Tonsillectomy Additional Past Surgical History / Comment(s): triple bypass 2013, left salpingo-oophorectomy, laminectomy L4 L5x3, ear surgery x 3 Past Anesthesia/Blood Transfusion Reactions: No Reported Reaction Past Psychological History: Anxiety, Depression Smoking Status: Former smoker Past Alcohol Use History: Occasional Past Drug Use History: None Reported - Past Family History Mother Family Medical History: Cancer General Exam Limitations: no limitations General appearance: alert, in no apparent distress Head exam: Present: atraumatic, normocephalic, normal inspection Eye exam: Present: normal appearance, PERRL, EOMI. Absent: scleral icterus, conjunctival injection, periorbital swelling ENT exam: Present: normal oropharynx, mucous membranes moist Neck exam: Present: normal inspection, full ROM. Absent: tenderness, meningismus, lymphadenopathy Respiratory exam: Present: wheezes, decreased breath sounds. Absent: normal lung sounds bilaterally, respiratory distress, rales, rhonchi, stridor Cardiovascular Exam: Present: regular rate, normal rhythm, normal heart sounds. Absent: systolic murmur, diastolic murmur, rubs, gallop, clicks GI/Abdominal exam: Present: soft, normal bowel sounds. Absent: distended, tenderness, guarding, rebound, rigid Neurological exam: Present: alert Skin exam: Present: warm, dry, intact, normal color. Absent: rash Course Vital Signs 09/15/22 09/15/22 09/15/22 05:48 06:30 07:00 Temperature 97.3 F L Pulse Rate 62 63 64 Respiratory 20 20 20 Rate Blood Pressure 109/78 125/71 O2 Sat by Pulse 94 L 91 L 93 L Oximetry 09/15/22 09/15/22 09/15/22 07:30 08:00 08:36 Temperature Pulse Rate 64 63 66 Respiratory 20 20 Rate Blood Pressure 138/57 128/58 O2 Sat by Pulse 91 L 91 L 95 Oximetry 09/15/22 08:57 Temperature Pulse Rate 68 Respiratory Rate Blood Pressure O2 Sat by Pulse Oximetry EKG Findings - EKG Comments: EKG Findings:: EKG performed at 5.48 sinus rhythm rate of 64 MD 195/157 QT/QTC 501/511 - EKG Results: EKG: interpreted by ERMD Medical Decision Making - Medical Decision Making Was pt. sent in by a medical professional or institution (, PA, MARKET RESEARCHER, urgent care, hospital, or shelter...) When possible be specific @ -No Did you speak to anyone other than the patient for history (EMS, parent, family, police, friend...)? What history was obtained from this source @ -EMS who transported the patient and provided prehospital care and treatment Did you review nursing and triage notes (agree or disagree)? Why? @ -I reviewed and agree with nursing and triage notes Were old charts reviewed (outside hosp., previous admission, EMS record, old EKG, old radiological studies, urgent care reports/EKG's, shelter records)? Report findings @ -Recent hospitalization, chest x-ray and laboratory studies Differential Diagnosis (chest pain, altered mental status, abdominal pain women, abdominal pain men, vaginal bleeding, weakness, fever, dyspnea, syncope, headache, dizziness, GI bleed, back pain, seizure, CVA, palpatations, mental health, musculoskeletal)? @ -Differential Dyspnea: Coronary syndrome, arrhythmia, tamponade, asthma, COPD, pulmonary embolism, pneumonia, pneumothorax, pulmonary effusion, anaphylaxis, diabetic ketoacidosis, flailed chest, pulmonary contusion, diaphragmatic rupture, anemia, neuromus cular, this is not meant to be an all-inclusive list. e EKG interpreted by me (3pts min.). @ -As above X-rays interpreted by me (1pt min.). @ -Chest x-ray shows worsening pleural effusion left moderate CT interpreted by me (1pt min.). @ -None done U/S interpreted by me (1pt. min.). @ -None done What testing was considered but not performed or refused? (CT, X-rays, U/S, labs)? Why? @ -None What meds were considered but not given or refused? Why? @ -None Did you discuss the management of the patient with other professionals (professionals i.e. , PA, MARKET RESEARCHER, lab, RT, psych nurse, nephrology social worker, honing machine operator production, teacher, business development officer, telehealth case manager)? Give summary @ -Dr. [place] who sees patient outpatient discuss current complaints with recent ablation findings and treatment. Discussed the case with Dr. Cano for admission secondary to worsening dyspnea, hypoxia, electrolyte abnormality with pulmonary edema Was smoking cessation discussed for >3mins.? @ -No Was critical care preformed (if so, how long)? @ -No Were there social determinants of health that impacted care today? How? (Homelessness, low income, unemployed, alcoholism, drug addiction, transportation, low edu. Level, literacy, decrease access to med. care, alf, rehab)? @ -No Was there de-escalation of care discussed even if they declined (Discuss DNR or withdrawal of care, Hospice)? DNR status @ -No What co-morbidities impacted this encounter? (DM, HTN, Smoking, COPD, CAD, Cancer, CVA, ARF, Chemo, Hep., AIDS, mental health diagnosis, sleep apnea, morbid obesity)? @ -COPD, CABG Was patient admitted / discharged? Hospital course, mention meds given and route, prescriptions, significant lab abnormalities, going to OR and other pertinent info. @ -Admitted patient having increasing requirements of options supplementation which is new for the patient patient's was recently hospitalized chest x-ray shows worsening pleural effusion, pulmonary edema with evidence of hypoxia. Patient does have hypokalemia, hypomagnesemia replacement was ordered. Patient lab consult pulmonary. Undiagnosed new problem with uncertain prognosis? @ -No Drug Therapy requiring intensive monitoring for toxicity (Heparin, Nitro, Insulin, Cardizem)? @ -No Were any procedures done? @ -No Diagnosis/symptom? @ -COPD exacerbation, hypoxia, pulmonary edema, pleural effusion Acute, or Chronic, or Acute on Chronic? @ -Acute Uncomplicated (without systemic symptoms) or Complicated (systemic symptoms)? @ -, Complicated Side effects of treatment? @ -No Exacerbation, Progression, or Severe Exacerbation? @ -No Poses a threat to life or bodily function? How? (Chest pain, [place], SD, pneumonia, PE, COPD, DKA, ARF, appy, cholecystitis, CVA, Diverticulitis, Homicidal, Suicidal, threat to staff... and all critical care pts) @ -Yes patient has hypoxia concerning for respiratory failure - Lab Data Result diagrams: 09/15/22 06:36 09/15/22 06:36 Lab Results 09/15/22 09/15/22 09/15/22 Range/Units 06:36 06:36 06:36 WBC 5.9 (3.8-10.6) k/uL RBC 3.63 L (3.80-5.40) m/uL Hgb 8.5 L (11.4-16.0) gm/dL Hct 28.0 L (34.0-46.0) % MCV 77.1 L (80.0-100.0) fL MCH 23.4 L (25.0-35.0) pg MCHC 30.4 L (31.0-37.0) g/dL RDW 20.8 H (11.5-15.5) % Plt Count 189 (150-450) k/uL MPV 7.4 Neutrophils % 78 % Lymphocytes % 11 % Monocytes % 7 % Eosinophils % 2 % Basophils % 0 % Neutrophils # 4.6 (1.3-7.7) k/uL Lymphocytes # 0.7 L (1.0-4.8) k/uL Monocytes # 0.4 (0-1.0) k/uL Eosinophils # 0.1 (0-0.7) k/uL Basophils # 0.0 (0-0.2) k/uL Hypochromasia Marked Anisocytosis Moderate Microcytosis Moderate PT 12.0 (9.0-12.0) sec INR 1.2 H (<1.2) APTT 22.3 (22.0-30.0) sec Sodium 142 (137-145) mmol/L Potassium 3.0 L (3.5-5.1) mmol/L Chloride 115 H (98-107) mmol/L Carbon Dioxide 21 L (22-30) mmol/L Anion Gap 6 mmol/L BUN 13 (7-17) mg/dL Creatinine 0.60 (0.52-1.04) mg/dL Est GFR (CKD-EPI)AfAm >90 (>60 ml/min/1.73 sqM) Est GFR (CKD-EPI)NonAf >90 (>60 ml/min/1.73 sqM) Glucose 108 H (74-99) mg/dL Calcium 7.2 L (8.4-10.2) mg/dL Magnesium 1.5 L (1.6-2.3) mg/dL Total Bilirubin 0.7 (0.2-1.3) mg/dL AST 50 H (14-36) U/L ALT 51 H (4-34) U/L Alkaline Phosphatase 94 (38-126) U/L Troponin I (0.000-0.034) ng/mL NT-Pro-B Natriuret Pep pg/mL Total Protein 4.8 L (6.3-8.2) g/dL Albumin 2.4 L (3.5-5.0) g/dL 09/15/22 09/15/22 Range/Units 06:36 06:36 WBC (3.8-10.6) k/uL RBC (3.80-5.40) m/uL Hgb (11.4-16.0) gm/dL Hct (34.0-46.0) % MCV (80.0-100.0) fL MCH (25.0-35.0) pg MCHC (31.0-37.0) g/dL RDW (11.5-15.5) % Plt Count (150-450) k/uL MPV Neutrophils % % Lymphocytes % % Monocytes % % Eosinophils % % Basophils % % Neutrophils # (1.3-7.7) k/uL Lymphocytes # (1.0-4.8) k/uL Monocytes # (0-1.0) k/uL Eosinophils # (0-0.7) k/uL Basophils # (0-0.2) k/uL Hypochromasia Anisocytosis Microcytosis PT (9.0-12.0) sec INR (<1.2) APTT (22.0-30.0) sec Sodium (137-145) mmol/L Potassium (3.5-5.1) mmol/L Chloride (98-107) mmol/L Carbon Dioxide (22-30) mmol/L Anion Gap mmol/L BUN (7-17) mg/dL Creatinine (0.52-1.04) mg/dL Est GFR (CKD-EPI)AfAm (>60 ml/min/1.73 sqM) Est GFR (CKD-EPI)NonAf (>60 ml/min/1.73 sqM) Glucose (74-99) mg/dL Calcium (8.4-10.2) mg/dL Magnesium (1.6-2.3) mg/dL Total Bilirubin (0.2-1.3) mg/dL AST (14-36) U/L ALT (4-34) U/L Alkaline Phosphatase (38-126) U/L Troponin I <0.012 (0.000-0.034) ng/mL NT-Pro-B Natriuret Pep 1270 pg/mL Total Protein (6.3-8.2) g/dL Albumin (3.5-5.0) g/dL Disposition Clinical Impression: Acute exacerbation of chronic obstructive pulmonary disease, Pleural effusion, Hypoxia, Hypokalemia Disposition: ADMITTED IP TO THIS HOSP Condition: Poor Referrals: None,Stated [REFERRING] - 1-2 days Time of Disposition: 08:01
[2022-09-15 06:52] LABS: Anisocytosis Moderate; Basophils % (A) 0 %; Eosinophils # (A) 0.1 k/uL (0-0.7); Eosinophils % (A) 2 %; HGB 8.5 gm/dL (11.4-16.0); Hypochromasia Marked; Lymphocytes # (A) 0.7 k/uL (1.0-4.8); Lymphocytes % (A) 11 %; MCH 23.4 pg (25.0-35.0); MCHC 30.4 g/dL (31.0-37.0); MCV 77.1 fL (80.0-100.0); Mean Platelet Volume 7.4; Microcytosis Moderate; Monocytes # (A) 0.4 k/uL (0-1.0); Monocytes % (A) 7 %; Neutrophils # (A) 4.6 k/uL (1.3-7.7); Neutrophils % (A) 78 %; Platelet Count 189 k/uL (150-450); RBC 3.63 m/uL (3.80-5.40); RDW 20.8 % (11.5-15.5); WBC 5.9 k/uL (3.8-10.6)
[2022-09-15 06:54] LABS: ALT 51 U/L (4-34); AST 50 U/L (14-36); African American GFR (CKD) >90 (>60 ml/min/1.73 sqM); Albumin 2.4 g/dL (3.5-5.0); Alkaline Phosphatase 94 U/L (38-126); Anion Gap 6 mmol/L; Blood Urea Nitrogen 13 mg/dL (7-17); Calcium 7.2 mg/dL (8.4-10.2); Carbon Dioxide 21 mmol/L (22-30); Chloride 115 mmol/L (98-107); Glucose 108 mg/dL (74-99); Magnesium 1.5 mg/dL (1.6-2.3); Non-African American GFR(CKD) >90 (>60 ml/min/1.73 sqM); Sodium 142 mmol/L (137-145); Total Bilirubin 0.7 mg/dL (0.2-1.3); Total Protein 4.8 g/dL (6.3-8.2)
[2022-09-15 07:14] LABS: INR 1.2 (<1.2); Partial Thromboplastin Time 22.3 sec (22.0-30.0)
--- NOTE | 2022-09-15 07:29 | XR ---
EXAMINATION TYPE: XR chest 2V DATE OF EXAM: 09/15/2022 COMPARISON: 09/06/2022 INDICATION: Difficulty in breathing TECHNIQUE: Frontal and lateral views of the chest are obtained. FINDINGS: The heart size is normal. The pulmonary vasculature is prominent. Small left pleural effusion is present. This appears larger on the lateral projection. No suspicious focal consolidations are evident. Stimulator leads are in the midthoracic region. Sternotomy wires ar e present.. IMPRESSION: 1. Moderate posterior left pleural effusion. 2. Prominent pulmonary vascular markings, correlate for volume overload.
[2022-09-15] MEDS ORDERED: FUROSEMIDE 10 MG/ML 4 ML VIAL IV STA (08:18)
[2022-09-15] MEDS ORDERED: POTASSIUM CHLORIDE ER 20 MEQ TAB.ER PO STA (08:18)
[2022-09-15] MEDS ORDERED: NALOXONE 0.4 MG/ML 1 ML VIAL IVP PRN (08:19)
[2022-09-15] MEDS ORDERED: ACETAMINOPHEN TAB 325 MG TAB PO PRN (08:19)
[2022-09-15] MEDS: MAGNESIUM SULFATE-D5W PMX 1 GM in DEXTROSE/WATER 1 100ML.BAG IVPB SCH ×2 (09:31→10:44)
--- NOTE | 2022-09-15 10:29 | P.HPIM ---
History of Present Illness H&P Date: 09/15/22 Chief Complaint: dyspnea 67-year-old woman with medical history of breast cancer, hypertension, hyperlipidemia, COPD, diabetes presented for evaluation of dyspnea. Patient was recently discharged on 09/09 after being treated for COPD exacerbation. Patient reports that she went back to her usual state of health in terms of her breathing, however, the Augmentin that she was prescribed did cause her diarrhea and so she felt continuing generalized weakness as a consequence of this. However, last night she started to notice she was much more short of breath with minimal exertion. She also noticed that lying flat cause significant shortness of breath as well. Over the last week, she's noticed increased swelling in her lower extremities which is new for her. She otherwise denies fevers, chills, nausea, vomiting, chest pain, palpitations, sick to be, recently, cough, abdominal pain, constipation, dysuria, dyschezia, numbness/weakness of extremities. In the emergency room, patient was afebrile, 128/58, heart rate 63, 91% on 4 L of nasal cannula. CBC demonstrated a low hemoglobin of 8.5 with a baseline of 9.1, MCV is low at 77.1, platelets are 189. Basic metabolic panel shows a potassium of 3.0, chloride of 115, CO2 of 21. Liver function tests show total p rotein 4.8, AST of 50, ALT of 51, albumin of 2.4. Magnesium is 1.5. BNP was 1270. Troponin was less than 0.012. EKG demonstrated normal sinus rhythm with right bundle reuben block. Chest x-ray demonstrated left-sided pleural effusion, increased pulmonary vascularity and borderline cardiomegaly consistent with volume overload. Case was discussed the emergency room provider decision was made to and the patient for hypoxic respiratory failure. All Systems reviewed and pertinent positives and negatives noted in HPI, all other symptoms are negative Gen: in no apparent distress, resting comfortably in bed Eyes: PERRL, no scleral injection or icterus HENT: normocephalic, atraumatic, good hearing acuity, moist mucous membranes Neck: no tracheal deviation, full range of motion Resp: good air exchange, breathing comfortably with no accessory muscle use, no tactile fremitus, bilateral crackles in the bases CVS: good distal perfusion x 4, bilateral 1+ pitting edema GI: soft, NTTP, ND, no hepatosplenomegaly : no suprapubic tenderness, no CVAT, stacy catheter not present MSK: no clubbing, no cyanosis, no noted contractures of extremities Skin: no noted rashes, petechiae; temperature of skin is appropriate Neuro: moving all extremities without signs of weakness, CN II-XII intact Psych: cooperative, euthymic mood, insight and judgment intact Labs and imaging as above Assessment: Acute heart failure exacerbation, ejection fraction unknown Acute on chronic hypoxemic respiratory failure COPD exacerbation Hypertension Hyperlipidemia Diabetes type 2 History of breast cancer Plan: Vital signs reviewed and noted in the HPI Lab work reviewed and noted in the HPI EKG and CXR are personally interpreted and noted in the HPI Case was discussed with the Emergency Room provider and decision was made to admit the patient for hypoxemic respiratory failure Start patient on standing DuoNeb's every 6 hours Start patient on standing Lasix 40 mg IV daily Obtain echocardiogram Pulmonology has been consulted I will defer the use of systemic steroids at this point because I believe hypox emia is predominantly driven by volume overload Patient is full code with the caveat that she does not want be coded for more than 10-15 minutes at the provider's discretion to limit the possibility of anoxic brain injury Past Medical History Past Medical History: Atrial Fibrillation, Coronary Artery Disease (CAD), COPD, Diabetes Mellitus, GERD/Reflux, Hyperlipidemia Additional Past Medical History / Comment(s): post polio syndrome rt side, neuropathy, hx. spontaneous pneumothorax, bowel resection for sepsis/infection,cut on toe History of Any Multi-Drug Resistant Organisms: ESBL Date of last positivie culture/infection: 06/29/21 MDRO Source:: ESBL BACK Past Surgical History: Back Surgery, Bowel Resection, Breast Surgery, Cholecystectomy, Coronary Bypass/CABG, Ear Surgery, Tonsillectomy Additional Past Surgical History / Comment(s): triple bypass 2013, left salpingo-oophorectomy, laminectomy L4 L5x3, ear surgery x 3 Past Anesthesia/Blood Transfusion Reactions: No Reported Reaction Past Psychological History: Anxiety, Depression Smoking Status: Former smoker Past Alcohol Use History: Occasional Past Drug Use History: None Reported - Past Family History Mother Family Medical History: Cancer Medications and Allergies Home Medications Medication Instructions Recorded Confirmed Type Atorvastatin [Lipitor] 40 mg PO HS 03/23/09/06/22 History DULoxetine HCL [Cymbalta] 60 mg PO HS 03/23/16 09/06/22 History Metoprolol Tartrate [Lopressor] 50 mg PO BID 03/23/16 09/06/22 History Omeprazole [PriLOSEC] 20 mg PO DAILY 03/23/16 09/06/22 History Montelukast [Singulair] 10 mg PO DAILY 05/18/21 09/06/22 History Ubidecarenone [Co Q-10] 200 mg PO DAILY 05/18/21 09/06/22 History Gabapentin 600 mg PO TID 06/29/21 09/06/22 History Budesonide-Formot 160-4.5 Mcg 2 puff INHALATION RT-BID 04/06/22 09/06/22 History [Symbicort 160-4.5 Mcg Inhaler] Insulin Glargine,Hum.rec.anlog 30 units SQ DAILY 04/06/22 09/06/22 History [Lantus Solostar Pen] Biotin [Biotin Disolve] 10,000 mcg PO DAILY 09/03/22 09/06/22 History Letrozole [Femara] 2.5 mg PO DAILY 09/03/22 09/06/22 History Apixaban [Eliquis] 5 mg PO BID 09/06/22 09/06/22 History Cholecalciferol [Vitamin D3 (125 125 mcg PO DAILY 09/06/22 09/06/22 History Mcg = 5000 Iu)] Cyanocobalamin (Vitamin B-12) 2,000 mcg PO DAILY 09/06/22 09/06/22 History [Vitamin B-12] HYDROcodone/APAP 10-325MG [[place] 1 tab PO Q6H PRN 09/06/22 09/06/22 History 10-325] Amoxic-Pot Clav 875-125Mg 1 each PO Q12HR #6 tab 09/09/22 Rx [Augmentin 875-125] Ascorbic Acid [Vitamin C] 250 mg PO DAILY #60 tab 09/09/22 Rx Azithromycin [Zithromax Tri-Vlad (3 500 mg PO DAILY 3 Days #3 tab 09/09/22 Rx tabs)] Ferrous Sulfate [Iron (65 MG 325 mg PO W/LUNCH #60 tab 09/09/22 Rx Elemental)] predniSONE [Deltasone] 40 mg PO DAILY #6 tab 09/09/22 Rx Allergies Allergy/AdvReac Type Severity Reaction Status Date / Time morphine Allergy rash,itchin Verified 09/06/22 18:12 g Sulfa (Sulfonamide Allergy Rash/Hives Verified 09/06/22 18:12 Antibiotics) surgical susy AdvReac Unknown Uncoded 09/06/22 15:24 Physical Exam Osteopathic Statement: *. No significant issues noted on an osteopathic structural exam other than those noted in the History and Physical/Consult. Vitals: Vital Signs Temp Pulse Resp BP Pulse Ox 09/15/22 08:57 68 09/15/22 08:36 66 95 09/15/22 08:00 63 20 128/58 91 L 09/15/22 07:30 64 20 138/57 91 L 09/15/22 07:00 64 20 125/71 93 L 09/15/22 06:30 63 20 109/78 91 L 09/15/22 05:48 97.3 F L 62 20 94 L Intake and Output 09/14/22 09/15/22 09/15/22 22:59 06:59 14:59 Other: Weight 86.183 kg Results CBC & Chem 7: 09/15/22 06:36 09/15/22 06:36 Labs: Abnormal Lab Results - Last 24 Hours (Table) 09/15/22 09/15/22 09/15/22 Range/Units 06:36 06:36 06:36 RBC 3.63 L (3.80-5.40) m/uL Hgb 8.5 L (11.4-16.0) gm/dL Hct 28.0 L (34.0-46.0) % MCV 77.1 L (80.0-100.0) fL MCH 23.4 L (25.0-35.0) pg MCHC 30.4 L (31.0-37.0) g/dL RDW 20.8 H (11.5-15.5) % Lymphocytes # 0.7 L (1.0-4.8) k/uL INR 1.2 H (<1.2) Potassium 3.0 L (3.5-5.1) mmol/L Chloride 115 H (98-107) mmol/L Carbon Dioxide 21 L (22-30) mmol/L Glucose 108 H (74-99) mg/dL Calcium 7.2 L (8.4-10.2) mg/dL Magnesium 1.5 L (1.6-2.3) mg/dL AST 50 H (14-36) U/L ALT 51 H (4-34) U/L Total Protein 4.8 L (6.3-8.2) g/dL Albumin 2.4 L (3.5-5.0) g/dL
[2022-09-15] MEDS: IPRATROPIUM-ALBUTEROL 3 ML NEB INHALATION SCH ×3 (11:43→20:18)
--- NOTE | 2022-09-15 12:23 | P.CNPUL ---
History of Present Illness Consult date: 09/15/22 Reason for consult: dyspnea History of present illness: This is a 67-year-old female patient who is being seen in the emergency department for shortness of breath. The patient was readmitted to the hospital after being treated and discharged for an acute COPD exacerbation. The patient was discharged on 09/09/2022 with a course of antibiotics with Z-Vlad and a prednisone burst taper and she was gradually tapering the prednisone starting with 40 mg by mouth she has a maternal Symbicort on outpatient basis regarding her COPD and she is an ex-smoker. Her previous CAT scan of the chest that was done on 09/06/2021 showed emphysema with upper lobe predominance. There is a small right-sided pleural effusion and compressive atelectatic changes in the right lung base and some pleural thickening along the left lateral lung base. No filling defects to suggest pulmonary embolism. Note that the patient also has a recent history of breast cancer and she has undergone lumpectomy, sentinel lymph node biopsy and she did not require radiation therapy and the patient was started on antiestrogen therapy orally. The is also known to have coronary artery disease, previous bypass surgery, and addition to hypertension and hyperlipidemia and diabetes mellitus type 2. The patient's following her discharge felt worsening shortness of breath, increased lower extremity edema and orthopnea. No cough. No sputum production. No hemoptysis. No pleurisy. Serum presented back to the emergency department. She was afebrile and she was admitted atelectasis stable on 4 L of oxygen her pulse ox was 91%. However hemoglobin was low at 8.5 and the patient has a white cell count of 5.9. The electrolytes were stable and normal. BUN was 13 with a creatinine of 0.6. The troponin was less than 0.012. ProBNP level was 1270. The chest x-ray showed a moderate left-sided pleural effusion and prominence pulmonary vascular markings consistent with fluid overload. The patient has had an echocardiogram from 06/05/2021 indicating moderate concentric LVH, preserved LV function with an ejection fraction of 55-60%, no valvular abnormalities, mild mitral regurgitation and mild tricuspid regurgitation. The right ventricular systolic pressure was estimated to be less than 35 mmHg. There was also reported that the diastolic pattern was normal to age Review of Systems Constitutional: Reports fatigue, Reports weakness Eyes: denies as per HPI, denies blurred vision, denies bulging eye, denies decreased vision, denies diplopia, denies discharge, denies dry eye, denies irritation, denies itching, denies pain, denies photophobia, denies loss of peripheral vision, denies loss of vision, denies tunnel vision/blind spots Ears: deny: decreased hearing, ear discharge, earache, tinnitus Ears, nose, mouth and throat: Reports as per HPI Breasts: absent: as per HPI, change in shape, gynecomastia, masses, nipple discharge, pain, skin changes, swelling Cardiovascular: Reports decreased exercise tolerance, Reports dyspnea on exertion, Reports orthopnea Respiratory: Reports as per HPI, Reports dyspnea Gastrointestinal: Reports as per HPI Genitourinary: Reports as per HPI Menstruation: Reports as per HPI Musculoskeletal: Reports low back pain Musculoskeletal: bilateral: ankle swelling, absent: ankle pain, ankle stiffness Integumentary: Reports as per HPI Neurological: Reports as per HPI Psychiatric: Reports as per HPI Endocrine: Reports as per HPI Hematologic/Lymphatic: Reports as per HPI Allergic/Immunologic: Reports as per HPI Past Medical History Past Medical History: Atrial Fibrillation, Coronary Artery Disease (CAD), Cancer (Breast cancer with a right lumpectomy and sentinel lymph node biopsy), COPD, Diabetes Mellitus, GERD/Reflux, Hyperlipidemia Additional Past Medical History / Comment(s): post polio syndrome rt side, neuropathy, hx. spontaneous pneumothorax, bowel resection for sepsis/infection ,cut on toe History of Any Multi-Drug Resistant Organisms: ESBL Date of last positivie culture/infection: 06/29/21 MDRO Source:: ESBL BACK Past Surgical History: Back Surgery, Bowel Resection, Breast Surgery, Cholecystectomy, Coronary Bypass/CABG, Ear Surgery, Tonsillectomy Additional Past Surgical History / Comment(s): triple bypass 2013, left salpingo-oophorectomy, laminectomy L4 L5x3, ear surgery x 3 Past Anesthesia/Blood Transfusion Reactions: No Reported Reaction Past Psychological History: Anxiety, Depression Smoking Status: Former smoker Past Alcohol Use History: Occasional Past Drug Use History: None Reported - Past Family History Mother Family Medical History: Cancer Medications and Allergies Home Medications Medication Instructions Recorded Confirmed Type Atorvastatin [Lipitor] 40 mg PO HS 03/23/16 09/15/22 History DULoxetine HCL [Cymbalta] 60 mg PO HS 03/23/16 09/15/22 History Metoprolol Tartrate [Lopressor] 50 mg PO BID 03/23/16 09/15/22 History Omeprazole [PriLOSEC] 20 mg PO DAILY 03/23/16 09/15/22 History Montelukast [Singulair] 10 mg PO DAILY 05/18/21 09/15/22 History Ubidecarenone [Co Q-10] 200 mg PO DAILY 05/18/21 09/15/22 History Gabapentin 600 mg PO TID 06/29/21 09/15/22 History Budesonide-Formot 160-4.5 Mcg 2 puff INHALATION RT-BID 04/06/22 09/15/22 History [Symbicort 160-4.5 Mcg Inhaler] Insulin Glargine,Hum.rec.anlog 30 units SQ DAILY 04/06/22 09/15/22 History [Lantus Solostar Pen] Biotin [Biotin Disolve] 10,000 mcg PO DAILY 09/03/22 09/15/22 History Letrozole [Femara] 2.5 mg PO DAILY 09/03/22 09/15/22 History Apixaban [Eliquis] 5 mg PO BID 09/06/22 09/15/22 History Cholecalciferol [Vitamin D3 (125 125 mcg PO DAILY 09/06/22 09/15/22 History Mcg = 5000 Iu)] Cyanocobalamin (Vitamin B-12) 2,000 mcg PO DAILY 09/06/22 09/15/22 History [Vitamin B-12] HYDROcodone/APAP 10-325MG [Calvin 1 tab PO Q6H PRN 09/06/22 09/15/22 History 10-325] Ascorbic Acid [Vitamin C] 250 mg PO DAILY #60 tab 09/09/22 09/15/22 Rx Ferrous Sulfate [Iron (65 MG 325 mg PO W/LUNCH #60 tab 09/09/22 09/15/22 Rx Elemental)] Allergies Allergy/AdvReac Type Severity Reaction Status Date / Time morphine Allergy rash,itchin Verified 09/15/22 11:38 g Sulfa (Sulfonamide Allergy Rash/Hives Verified 09/15/22 11:38 Antibiotics) amoxicillin [From Augmentin] AdvReac Diarrhea Verified 09/15/22 11:48 clavulanic acid AdvReac Diarrhea Verified 09/15/22 11:48 [From Augmentin] surgical susy AdvReac Unknown Uncoded 09/15/22 11:38 Physical Exam Vitals: Vital Signs Temp Pulse Resp BP Pulse Ox 09/15/22 11:51 69 09/15/22 11:43 66 09/15/22 08:57 68 09/15/22 08:36 66 95 09/15/22 08:00 63 20 128/58 91 L 09/15/22 07:30 64 20 138/57 91 L 09/15/22 07:00 64 20 125/71 93 L 09/15/22 06:30 63 20 109/78 91 L 09/15/22 05:48 97.3 F L 62 20 94 L Intake and Output 09/14/22 09/15/22 09/15/22 22:59 06:59 14:59 Other: Weight 86.183 kg Gen: in no apparent distress, resting comfortably in bed, the patient is currently on 4 L O2 nasal cannula with a pulse ox of 97% Eyes: PERRL, no scleral injection or icterus HENT: normocephalic, atraumatic, good hearing acuity, moist mucous membranes Neck: no tracheal deviation, full range of motion Resp: good air exchange, breathing comfortably with no accessory muscle use, no tactile fremitus, bilateral crackles in the bases CVS: good distal perfusion x 4, bilateral 1+ pitting edema GI: soft, NTTP, ND, no hepatosplenomegaly : no suprapubic tenderness, no CVAT, stacy catheter not present MSK: no clubbing, no cyanosis, no noted contractures of extremities Skin: no noted rashes, petechiae; temperature of skin is appropriate Neuro: moving all extremities without signs of weakness, CN II-XII intact Psych: cooperative, euthymic mood, insight and judgment intact Results - Laboratory Findings CBC and BMP: 09/15/22 06:36 09/15/22 06:36 PT/INR, D-dimer PT 12.0 sec (9.0-12.0) 09/15/22 06:36 INR 1.2 (<1.2) H 09/15/22 06:36 Abnormal lab findings: Abnormal Labs 09/15/22 09/15/22 09/15/22 06:36 06:36 06:36 RBC 3.63 L Hgb 8.5 L Hct 28.0 L MCV 77.1 L MCH 23.4 L MCHC 30.4 L RDW 20.8 H Lymphocytes # 0.7 L INR 1.2 H Potassium 3.0 L Chloride 115 H Carbon Dioxide 21 L Glucose 108 H Calcium 7.2 L Magnesium 1.5 L AST 50 H ALT 51 H Total Protein 4.8 L Albumin 2.4 L - Diagnostic Findings Chest x-ray: image reviewed Assessment and Plan Plan: Acute on chronic dyspnea, multifactorial. The patient has background COPD and there are signs of fluid overload, possible diastolic heart failure although her most recent echocardiogram showed a preserved LV function with a diastolic pat tern that was consistent with her age. Nevertheless, the proBNP level was elevated and the patient has developed a new left-sided pleural effusion and the patient has poor vessel congestion consistent with CHF. New onset left-sided pleural effusion Acute hypoxic respiratory failure currently on 4 L O2 nasal cannula COPD with upper lobe predominance maintain on Symbicort on outpatient basis Coronary artery disease with previous bypass surgery Paroxysmal A. fib current rhythm is sinus and the patient is admitted on anticoagulants. Hypertension Hyperlipidemia Diabetes mellitus type 2 Right-sided breast cancer with a previous lumpectomy and sentinel lymph node biopsy and the patient is currently on hormonal treatment. Chronic anemia to divulge as of the beginning of the year and hemoglobin is stable for now Chronic back pain with previous back surgery currently maintained on [place] and Neurontin. The patient has undergone a surgery for severe lumbar stenosis L2 through S1 and the patient has undergone laminectomy and facetectomy and foraminotomy with fusion at multiple levels. History of her lumbar wound dehiscence with serous drainage back in June 2022 Previous history of spontaneous pneumothorax on the left History of previous poliomyelitis on the right Plan Complete the prednisone burst taper starting with 40 mg Continue Symbicort Continue DuoNeb about treatments [id number] Continue anticoagulation with Eliquis IV Lasix 20 mg every 12 hours. The patient was given a dose of 40 mg in the emergency Resume all medications Titrate FiO2 to maintain saturation above 90% Repeat chest x-ray to monitor left-sided pleural effusion
[2022-09-15] MEDS: HYDROcodone/APAP 10-325MG 1 EACH TAB PO PRN (14:02)
[2022-09-15] MEDS: GABAPENTIN 300 MG CAP PO SCH ×2 (15:01→21:30)
[2022-09-15 16:29] LABS: Glucose,Whole Blood 296 mg/dL (70-110)
[2022-09-15] MEDS: INSULIN ASPART (NovoLOG) 100 UNIT/ML VIAL SQ SCH (16:55)
--- NOTE | 2022-09-15 17:01 | CA ---
Transthoracic Echo Report Name: Shelby Robison Age: 67 Gender: F : 1955 Exam Date: 09/15/2022 13:24 Exam Location: [place] [facility] Ht (in): 69 Wt (lb): 190 Ordering Physician: Jesse Patton MD Attending/Referring Phys: Philosophy Lecturer Sophie Chairez RDCS Procedure CPT: Indications: Heart failure Cardiac Hx: Technical Quality: Good Contrast 1: Total Dose (mL): Contrast 2: Total Dose (mL): MEASUREMENTS (Male / Female) Normal Values 2D ECHO LV Diastolic Diameter PLAX 4.5 cm 4.2 - 5.9 / 3.9 - 5.3 cm LV Systolic Diameter PLAX 2.9 cm IVS Diastolic Thickness 1.1 cm 0.6 - 1.0 / 0.6 - 0.9 cm LVPW Diastolic Thickness 1.1 cm 0.6 - 1.0 / 0.6 - 0.9 cm LV Relative Wall Thickness 0.5 RV Internal Dim ED PLAX 3.9 cm LA Systolic Diameter LX 3.7 cm 3.0 - 4.0 / 2.7 - 3.8 cm LA Volume 65.4 cm??? 18 - 58 / 22 - 52 cm??? M-MODE Aortic Root Diameter MM 3.2 cm MV E Point Septal Separation 0.5 cm AV Cusp Separation MM 2.1 cm DOPPLER AV Peak Velocity 134.5 cm/s AV Peak Gradient 7.2 mmHg MV Area PHT 4.9 cm??? Mitral E Point Velocity 120.8 cm/s Mitral A Point Velocity 81.8 cm/s Mitral E to A Ratio 1.5 MV Deceleration Time 154.4 ms MV E' Velocity 8.5 cm/s Mitral E to MV E' Ratio 14.1 TR Peak Velocity 323.2 cm/s TR Peak Gradient 41.8 mmHg Right Ventricular Systolic Press 46.8 mmHg FINDINGS Left Ventricle Left ventricular ejection fraction is estimated at 60-65 %. Left ventricular cavity size normal. Mildly increased septal wall thickness. Mildly increased posterior wall thickness. Right Ventricle Moderate right ventricular dilatation. Moderate pulmonary hypertension. Right Atrium Normal right atrial size. Left Atrium Moderately increased left atrial volume. Mildly increased left atrial area. Mitral Valve Structurally normal mitral valve. No mitral stenosis, regurgitation or prolapse. Aortic Valve Trileaflet aortic valve. No aortic valve stenosis or regurgitation. Tricuspid Valve Structurally normal tricuspid valve. Mild tricuspid regurgitation. Pulmonic Valve Structurally normal pulmonic valve. Trace to mild pulmonic regurgitation. Pericardium Normal pericardium. No pericardial effusion. Aorta Normal size aortic root and proximal ascending aorta. CONCLUSIONS Left ventricular systolic function is normal Previewed by: Dr. Piter Broderick MD (Electronically Signed) Final Date: 15 Sep 2022 17:00
[2022-09-15] MEDS: SYMBICORT 160-4.5 MCG INHALER INHALATION SCH (20:18)
[2022-09-15 20:20] LABS: Glucose,Whole Blood 236 mg/dL (70-110)
[2022-09-15] MEDS: DULoxetine HCL 60 MG CAPSULE.DR PO SCH (21:31)
[2022-09-15] MEDS: METOPROLOL TARTRATE 50 MG TAB PO SCH (21:31)
[2022-09-15] MEDS: APIXABAN 5 MG TAB PO SCH (21:31)
[2022-09-15] MEDS: ATORVASTATIN 40 MG TAB PO SCH (21:31)
[2022-09-15] MEDS: FUROSEMIDE 10 MG/ML 2 ML VIAL IV SCH (21:31)
[2022-09-16 06:05] LABS: Glucose,Whole Blood 123 mg/dL (70-110)
[2022-09-16] MEDS: INSULIN ASPART (NovoLOG) 100 UNIT/ML VIAL SQ SCH ×4 (06:11→16:56)
[2022-09-16] MEDS: HYDROcodone/APAP 10-325MG 1 EACH TAB PO PRN (06:21)
[2022-09-16] MEDS: INSULIN DETEMIR (LEVEMIR) 100 UNIT/ML SYR SQ SCH (06:47)
[2022-09-16] MEDS: PANTOPRAZOLE 40 MG TABLET PO SCH (06:47)
[2022-09-16] MEDS: FUROSEMIDE 10 MG/ML 2 ML VIAL IV SCH ×2 (08:21→21:17)
[2022-09-16] MEDS: GABAPENTIN 300 MG CAP PO SCH ×3 (08:21→21:17)
[2022-09-16] MEDS: CYANOCOBALAMIN 500 MCG TAB PO SCH (08:21)
[2022-09-16] MEDS: MONTELUKAST 10 MG TAB PO SCH (08:22)
[2022-09-16] MEDS: CHOLECALCIFEROL 125 MCG (5000 IU) TABLET PO SCH (08:22)
[2022-09-16] MEDS: predniSONE 20 MG TAB PO SCH (08:22)
[2022-09-16] MEDS: APIXABAN 5 MG TAB PO SCH ×2 (08:23→21:17)
[2022-09-16] MEDS: ASCORBIC ACID 500 MG TAB PO SCH (08:23)
[2022-09-16] MEDS: METOPROLOL TARTRATE 50 MG TAB PO SCH ×2 (08:29→21:17)
[2022-09-16] MEDS: LETROZOLE 2.5 MG TAB PO SCH (08:29)
[2022-09-16] MEDS ORDERED: FUROSEMIDE 10 MG/ML 4 ML VIAL IV SCH (09:00)
[2022-09-16] MEDS: IPRATROPIUM-ALBUTEROL 3 ML NEB INHALATION PRN ×2 (09:21→11:48)
[2022-09-16] MEDS: SYMBICORT 160-4.5 MCG INHALER INHALATION SCH ×2 (09:21→19:53)
[2022-09-16 10:31] VITALS: BMI 28.0
[2022-09-16 11:51] LABS: Glucose,Whole Blood 169 mg/dL (70-110)
[2022-09-16] MEDS: FERROUS SULFATE 325 MG TAB PO SCH (11:52)
--- NOTE | 2022-09-16 13:14 | P.PN ---
Subjective Progress Note Date: 09/16/22 No new copmlaints today. Reports improvement in breathing today. Gen: awake, alert HEENT: normocephalic, atraumatic, good hearing acuity, moist mucous membranes Resp: good air exchange, breathing comfortably with no accessory muscle use CVS: good distal perfusion x 4, GI: soft, NTTP, ND : no SPT, no CVAT, stacy catheter not present MSK: no pitting edema, no clubbing Neuro: non-focal, moving all extremities Psych: cooperative, euthymic mood Hospital Course: 67-year-old woman with medical history of breast cancer, hypertension, hyperlipidemia, COPD, diabetes presented for evaluation of dyspnea. In the emergency room, patient was afebrile, 128/58, heart rate 63, 91% on 4 L of nasal cannula. CBC demonstrated a low hemoglobin of 8.5 with a baseline of 9.1, MCV is low at 77.1, platelets are 189. Basic metabolic panel shows a potassium of 3.0, chloride of 115, CO2 of 21. Liver function tests show total protein 4.8, AST of 50, ALT of 51, albumin of 2.4. Magnesium is 1.5. BNP was 1270. T roponin was less than 0.012. EKG demonstrated normal sinus rhythm with right bundle reuben block. Chest x-ray demonstrated left-sided pleural effusion, increased pulmonary vascularity and borderline cardiomegaly consistent with volume overload. Case was discussed the emergency room provider decision was made to and the patient for hypoxic respiratory failure. Assessment: Acute heart failure exacerbation with diastolic dysfunction Acute on chronic hypoxemic respiratory failure COPD exacerbation Hypertension Hyperlipidemia Diabetes type 2 History of breast cancer Plan: Today, patient is afebrile, 132/64, 73, 93% on 4L Echo showed preserved EF, thickened heart tilley Start patient on standing DuoNeb's every 6 hours Start patient on standing Lasix 20 mg IV BID Patient is full code with the caveat that she does not want be coded for more than 10-15 minutes at the provider's discretion to limit the possibility of anoxic brain injury Objective - Vital Signs Vital signs: Vital Signs Temp 97.9 F 09/16/22 08:19 Pulse 65 09/16/22 11:59 Resp 17 09/16/22 08:19 BP 132/64 09/16/22 08:19 Pulse Ox 96 09/16/22 09:32 FiO2 Intake & Output 09/15/22 09/16/22 09/16/22 18:59 06:59 18:59 Intake Total 180 120 Output Total 775 Balance -595 120 Weight 86.183 kg 86.183 kg Intake: Oral 180 120 Output: Urine 775 Other: Voiding Method Bedside Commode Bedside Commode # Voids 2 - Labs CBC & Chem 7: 09/15/22 06:36 09/15/22 06:36 Labs: Abnormal Lab Results - Last 24 Hours (Table) 09/15/22 09/15/22 09/16/22 Range/Units 16:27 20:19 05:59 POC Glucose (mg/dL) 296 H 236 H 123 H (70-110) mg/dL 09/16/22 Range/Units 11:48 POC Glucose (mg/dL) 169 H (70-110) mg/dL
--- NOTE | 2022-09-16 15:18 | P.PN ---
Subjective Progress Note Date: 09/16/22 This is a 67-year-old female patient who is being seen in the emergency department for shortness of breath. The patient was readmitted to the hospital after being treated and discharged for an acute COPD exacerbation. The patient was discharged on 09/09/2022 with a course of antibiotics with Z-Vlad and a prednisone burst taper and she was gradually tapering the prednisone starting with 40 mg by mouth she has a maternal Symbicort on outpatient basis regarding her COPD and she is an ex-smoker. Her previous CAT scan of the chest that was done on 09/06/2021 showed emphysema with upper lobe predominance. There is a small right-sided pleural effusion and compressive atelectatic changes in the right lung base and some pleural thickening along the left lateral lung base. No filling defects to suggest pulmonary embolism. Note that the patient also has a recent history of breast cancer and she has undergone lumpectomy, sentinel lymph node biopsy and she did not require radiation therapy and the patient was started on antiestrogen therapy orally. The is also known to have coronary artery disease, previous bypass surgery, and addition to hypertension and hyperlipidemia and diabetes mellitus type 2. The patient's following her discharge felt worsening shortness of breath, increased lower extremity edema and orthopnea. No cough. No sputum production. No hemoptysis. No pleurisy. Serum presented back to the emergency department. She was afebrile and she was admitted atelectasis stable on 4 L of oxygen her pulse ox was 91%. However hemoglobin was low at 8.5 and the patient has a white cell count of 5.9. The electrolytes were stable and normal. BUN was 13 with a creatinine of 0.6. The troponin was less than 0.012. ProBNP level was 1270. The chest x-ray showed a moderate left-sided pleural effusion and prominence pulmonary vascular markings consistent with fluid overload. The patient has had an echocardiogram from 06/05/2021 indicating moderate concentric LVH, preserved LV function with an ejection fraction of 55-60%, no valvular abnormalities, mild mitral regurgitat ion and mild tricuspid regurgitation. The right ventricular systolic pressure was estimated to be less than 35 mmHg. There was also reported that the diastolic pattern was normal to age On today's evaluation of 6. 1. 2022, he should be well. Less short of breath. She has been diuresing well and the patient received IV Lasix 20 mg IV every 12 hours. Echo cardiac exam showed preserved LV function with diastolic heart failure. No cough. No sputum production chest tightness or wheezing on today's evaluation. Furthermore, she was on 4 L of oxygen by nasal cannula. I weaned her down to 2 L/m nasal cannula and a follow-up pulse ox is in order of 90%. She was provided incentive spirometer. No other new complaints otherwise for now. Echo was noted. She is afebrile. Objective - Vital Signs Vital signs: Vital Signs Temp 97.9 F 09/16/22 08:19 Pulse 70 09/16/22 09:35 Resp 17 09/16/22 08:19 BP 132/64 09/16/22 08:19 Pulse Ox 96 09/16/22 09:32 FiO2 Intake & Output 09/15/22 09/16/22 09/16/22 18:59 06:59 18:59 Intake Total 180 120 Output Total 775 Balance -595 120 Weight 86.183 kg Intake: Oral 180 120 Output: Urine 775 Other: Voiding Method Bedside Commode Bedside Commode # Voids 2 - Exam Gen: in no apparent distress, resting comfortably in bed, the patient is currently on 2 L O2 nasal cannula with a pulse ox of 90 % Eyes: PERRL, no scleral injection or icterus HENT: normocephalic, atraumatic, good hearing acuity, moist mucous membranes Neck: no tracheal deviation, full range of motion Resp: good air exchange, breathing comfortably with no accessory muscle use, no tactile fremitus, bilateral crackles in the bases CVS: good distal perfusion x 4, bilateral 1+ pitting edema GI: soft, NTTP, ND, no hepatosplenomegaly : no suprapubic tenderness, no CVAT, stacy catheter not present MSK: no clubbing, no cyanosis, no noted contractures of extremities Skin: no noted rashes, petechiae; temperature of skin is appropriate Neuro: moving all extremities without signs of weakness, CN II-XII intact Psych: cooperative, euthymic mood, insight and judgment intact - Labs CBC & Chem 7: 09/15/22 06:36 09/15/22 06:36 Labs: Abnormal Lab Results - Last 24 Hours (Table) 05/31/23 05/31/23 06/01/23 Range/Units 16:27 20:19 05:59 POC Glucose (mg/dL) 296 H 236 H 123 H (70-110) mg/dL Assessment and Plan Plan: Acute on chronic dyspnea, multifactorial. The patient has background COPD and there are signs of fluid overload, possible diastolic heart failure although her most recent echocardiogram showed a preserved LV function with a diastolic pattern that was consistent with her age. Nevertheless, the proBNP level was elevated and the patient has developed a new left-sided pleural effusion and the patient has poor vessel congestion consistent with CHF. Clinically improving and the patient's oxygen is also improving and she is currently on 2 L of Oxymizer nasal cannula New onset left-sided pleural effusion, likely secondary to CHF, follow-up chest x-ray we'll obtain for tomorrow Acute hypoxic respiratory failure currently on 4 L O2 nasal cannula COPD with upper lobe predominance maintain on Symbicort on outpatient basis Coronary artery disease with previous bypass surgery Paroxysmal A. fib current rhythm is sinus and the patient is admitted on anticoagulants. Hypertension Hyperlipidemia Diabetes mellitus type 2 Right-sided breast cancer with a previous lumpectomy and sentinel lymph node biopsy and the patient is currently on hormonal treatment. Chronic anemia to divulge as of the beginning of the year and hemoglobin is stable for now Chronic back pain with previous back surgery currently maintained on [place] and Neurontin. The patient has undergone a surgery for severe lumbar stenosis L2 through S1 and the patient has undergone laminectomy and facetectomy and foraminotomy with fusion at multiple levels. History of her lumbar wound dehiscence with serous drainage back in June 2022 Previous history of spontaneous pneumothorax on the left History of previous poliomyelitis on the right Plan Complete the prednisone burst taper starting with 40 mg Continue Symbicort Continue DuoNeb about treatments [id number] Continue anticoagulation with Eliquis IV Lasix 20 mg every 12 hours. The patient is currently in negative fluid balance Repeat chest x-ray in the morning Continue rest of the medications Titrate FiO2 to maintain saturation above 90% Repeat chest x-ray to monitor left-sided pleural effusion
[2022-09-16] MEDS: IPRATROPIUM-ALBUTEROL 3 ML NEB INHALATION SCH ×3 (15:31→19:53)
[2022-09-16 16:16] LABS: Glucose,Whole Blood 204 mg/dL (70-110)
[2022-09-16 20:04] LABS: Glucose,Whole Blood 231 mg/dL (70-110)
[2022-09-16] MEDS: DULoxetine HCL 60 MG CAPSULE.DR PO SCH (21:17)
[2022-09-16] MEDS: ATORVASTATIN 40 MG TAB PO SCH (21:17)
[2022-09-17 06:04] LABS: Glucose,Whole Blood 107 mg/dL (70-110)
[2022-09-17] MEDS: INSULIN ASPART (NovoLOG) 100 UNIT/ML VIAL SQ SCH ×2 (06:19→12:06)
[2022-09-17] MEDS: PANTOPRAZOLE 40 MG TABLET PO SCH (07:03)
[2022-09-17] MEDS: INSULIN DETEMIR (LEVEMIR) 100 UNIT/ML SYR SQ SCH (07:03)
--- NOTE | 2022-09-17 07:18 | XR ---
EXAMINATION TYPE: XR chest 1V DATE OF EXAM: 09/17/2022 CLINICAL HISTORY: Left-sided pleural effusion. TECHNIQUE: Single AP portable upright view of the chest is obtained. COMPARISON: Chest x-ray from 2 days earlier FINDINGS: Overlying sternal wires and mediastinal clips are redemonstrated. Cardiac silhouette size stable and upper limits of normal. Small left pleural effusion likely remains present seen better on prior study lateral view. Lower thoracic spinal stimulator device again seen. IMPRESSION: Improved central vascular congestion. Likely improving small left pleural effusion. No ne w acute infiltrate.
[2022-09-17 08:19] VITALS: BP 119/64; RESP 19; TEMP 98.3
[2022-09-17] MEDS: CYANOCOBALAMIN 500 MCG TAB PO SCH (08:42)
[2022-09-17] MEDS: MONTELUKAST 10 MG TAB PO SCH (08:42)
[2022-09-17] MEDS: FUROSEMIDE 10 MG/ML 2 ML VIAL IV SCH (08:42)
[2022-09-17] MEDS: CHOLECALCIFEROL 125 MCG (5000 IU) TABLET PO SCH (08:42)
[2022-09-17] MEDS: METOPROLOL TARTRATE 50 MG TAB PO SCH (08:42)
[2022-09-17] MEDS: APIXABAN 5 MG TAB PO SCH (08:42)
[2022-09-17] MEDS: ASCORBIC ACID 500 MG TAB PO SCH (08:42)
[2022-09-17] MEDS: GABAPENTIN 300 MG CAP PO SCH (08:42)
[2022-09-17] MEDS: predniSONE 20 MG TAB PO SCH (08:42)
[2022-09-17] MEDS: LETROZOLE 2.5 MG TAB PO SCH (08:43)
[2022-09-17] MEDS: IPRATROPIUM-ALBUTEROL 3 ML NEB INHALATION SCH (09:17)
[2022-09-17] MEDS: SYMBICORT 160-4.5 MCG INHALER INHALATION SCH (09:17)
[2022-09-17 09:32] VITALS: PULSE 74
--- NOTE | 2022-09-17 10:31 | P.DS ---
Providers Date of admission: 09/15/22 08:02 Expected date of discharge: 09/17/22 Attending physician: Agueda Soto DO Consults: 09/15/22 08:19 Consult Physician Routine Consulting Provider: Paloma Graff Consult Reason/Comments: Pleural effusion, COPD Do you want consulting provider notified?: Yes Primary care physician: Teja Lozano MD Hospital Course: Assessment: Acute heart failure exacerbation with diastolic dysfunction Acute on chronic hypoxemic respiratory failure COPD exacerbation Hypertension Hyperlipidemia Diabetes type 2 History of breast cancer Hospital Course: 67-year-old woman with medical history of breast cancer, hypertension, hyperlipidemia, COPD, diabetes presented for evaluation of dyspnea. In the emergency room, patient was afebrile, 128/58, heart rate 63, 91% on 4 L of nasal cannula. CBC demonstrated a low hemoglobin of 8.5 with a baseline of 9.1, MCV is low at 77.1, platelets are 189. Basic metabolic panel shows a potassium of 3 .0, chloride of 115, CO2 of 21. Liver function tests show total protein 4.8, AST of 50, ALT of 51, albumin of 2.4. Magnesium is 1.5. BNP was 1270. Troponin was less than 0.012. EKG demonstrated normal sinus rhythm with right bundle reuben block. Chest x-ray demonstrated left-sided pleural effusion, increased pulmonary vascularity and borderline cardiomegaly consistent with volume overload. Case was discussed the emergency room provider decision was made to and the patient for hypoxic respiratory failure. Patient was started on Lasix and improved quickly back to baseline oxygen status. She had an echocardiogram done which demonstrated preserved ejection fraction of 60-65% with thickness of the tilley. Patient was also treated with oral steroids, nebulizers given her underlying COPD. She was discharged home with the medication for Lasix, 3 additional days of prednisone. I discussed the case with the primary care physician to ensure continuity of care. Patient should also follow up with pulmonology, and this was discussed with the patient. I spent 34 minutes coordinating this discharge on 09/15 Gen: awake, alert HEENT: normocephalic, atraumatic, good hearing acuity, moist mucous membranes Resp: good air exchange, breathing comfortably with no accessory muscle use CVS: good distal perfusion x 4, GI: soft, NTTP, ND : no SPT, no CVAT, stacy catheter not present MSK: no pitting edema, no clubbing Neuro: non-focal, moving all extremities Psych: cooperative, euthymic mood Patient Condition at Discharge: Good Plan - Discharge Summary Discharge Rx Participant: Yes New Discharge Prescriptions: New Furosemide [Lasix] 20 mg PO DAILY #30 tab predniSONE [Deltasone] 40 mg PO DAILY #6 tab Continue Omeprazole [PriLOSEC] 20 mg PO DAILY DULoxetine HCL [Cymbalta] 60 mg PO HS Atorvastatin [Lipitor] 40 mg PO HS Metoprolol Tartrate [Lopressor] 50 mg PO BID Budesonide-Formot 160-4.5 Mcg [Symbicort 160-4.5 Mcg Inhaler] 2 puff INHALATION RT-BID Insulin Glargine,Hum.rec.anlog [Lantus Solostar Pen] 30 units SQ DAILY Letrozole [Femara] 2.5 mg PO DAILY Biotin [Biotin Disolve] 10,000 mcg PO DAILY Cholecalciferol [Vitamin D3 (125 Mcg = 5000 Iu)] 125 mcg PO DAILY Cyanocobalamin (Vitamin B-12) [Vitamin B-12] 2,000 mcg PO DAILY HYDROcodone/APAP 10-325MG [[place] 10-325] 1 tab PO Q6H PRN PRN Reason: Pain Apixaban [Eliquis] 5 mg PO BID Ubidecarenone [Co Q-10] 200 mg PO DAILY Montelukast [Singulair] 10 mg PO DAILY Gabapentin 600 mg PO TID Ferrous Sulfate [Iron (65 MG Elemental)] 325 mg PO W/LUNCH #60 tab Ascorbic Acid [Vitamin C] 250 mg PO DAILY #60 tab Discharge Medication List Atorvastatin [Lipitor] 40 mg PO HS 03/23/16 [History] DULoxetine HCL [Cymbalta] 60 mg PO HS 03/23/16 [History] Metoprolol Tartrate [Lopressor] 50 mg PO BID 03/23/16 [History] Omeprazole [PriLOSEC] 20 mg PO DAILY 03/23/16 [History] Montelukast [Singulair] 10 mg PO DAILY 05/18/21 [History] Ubidecarenone [Co Q-10] 200 mg PO DAILY 05/18/21 [History] Gabapentin 600 mg PO TID 06/29/21 [History] Budesonide-Formot 160-4.5 Mcg [Symbicort 160-4.5 Mcg Inhaler] 2 puff INHALATION RT-BID 04/06/22 [History] Insulin Glargine,Hum.rec.anlog [Lantus Solostar Pen] 30 units SQ DAILY 04/06/22 [History] Biotin [Biotin Disolve] 10,000 mcg PO DAILY 09/03/22 [History] Letrozole [Femara] 2.5 mg PO DAILY 09/03/22 [History] Apixaban [Eliquis] 5 mg PO BID 09/06/22 [History] Cholecalciferol [Vitamin D3 (125 Mcg = 5000 Iu)] 125 mcg PO DAILY 09/06/22 [History] Cyanocobalamin (Vitamin B-12) [Vitamin B-12] 2,000 mcg PO DAILY 09/06/22 [History] HYDROcodone/APAP 10-325MG [[place] 10-325] 1 tab PO Q6H PRN 09/06/22 [History] Ascorbic Acid [Vitamin C] 250 mg PO DAILY #60 tab 09/09/22 [Rx] Ferrous Sulfate [Iron (65 MG Elemental)] 325 mg PO W/LUNCH #60 tab 09/09/22 [Rx] Furosemide [Lasix] 20 mg PO DAILY #30 tab 09/17/22 [Rx] predniSONE [Deltasone] 40 mg PO DAILY #6 tab 09/17/22 [Rx] Follow up Appointment(s)/Referral(s): None,Stated [REFERRING] - 1-2 days Discharge Disposition: HOME SELF-CARE
[2022-09-17 11:52] LABS: Glucose,Whole Blood 126 mg/dL (70-110)
[2022-09-17] MEDS: FERROUS SULFATE 325 MG TAB PO SCH (12:04)
== END 2022-09-17 12:12 | disposition home or self-care (01) | DRG 291 ==
LOC: EC 05:47 → 3SCARD 08:02
PROVIDERS: ADMIT Internal Medicine; ATTEND Internal Medicine
DX: I11.0 Hypertensive heart disease with heart failure (principal); I50.33 Acute on chronic diastolic (congestive) heart failure; J96.21 Acute and chronic respiratory failure with hypoxia; E11.42 Type 2 diabetes mellitus with diabetic polyneuropathy; C50.911 Malignant neoplasm of unspecified site of right female breast; J43.9 Emphysema, unspecified; E78.5 Hyperlipidemia, unspecified; D63.0 Anemia in neoplastic disease; E87.6 Hypokalemia; E83.42 Hypomagnesemia; G14 Postpolio syndrome; I48.91 Unspecified atrial fibrillation; M79.89 Other specified soft tissue disorders; I25.10 Atherosclerotic heart disease of native coronary artery without angina pectoris; I08.1 Rheumatic disorders of both mitral and tricuspid valves; G89.29 Other chronic pain; M48.061 Spinal stenosis, lumbar region without neurogenic claudication; Z79.4 Long term (current) use of insulin; Z95.1 Presence of aortocoronary bypass graft; Z79.01 Long term (current) use of anticoagulants; Z87.891 Personal history of nicotine dependence; Z88.2 Allergy status to sulfonamides; Z88.5 Allergy status to narcotic agent; Z91.048 Other nonmedicinal substance allergy status; Z79.899 Other long term (current) drug therapy; Z79.811 Long term (current) use of aromatase inhibitors; Z79.51 Long term (current) use of inhaled steroids; Z98.1 Arthrodesis status; Z80.9 Family history of malignant neoplasm, unspecified
CPT/HCPCS: 36415; 71045; 71046; 80053; 83735; 83880; 84484; 85025; 85610; 85730; 93005; 93306; 94640; 94760; 96365; 96366; 96375; 99285

== ENCOUNTER 2022-11-10 09:01 | Observation (INO) | payer OTHER ==
[2022-11-10] MEDS ORDERED: SODIUM CHLORIDE 0.9% 1,000 ML IV STA (09:17)
[2022-11-10] MEDS ORDERED: ONDANSETRON 4 MG/2 ML VIAL IVP STA (09:17)
[2022-11-10 09:32] LABS: Anisocytosis Slight; Basophils % (A) 0 %; Eosinophils # (A) 0.1 k/uL (0-0.7); Eosinophils % (A) 2 %; HCT 40.1 % (34.0-46.0); Hypochromasia Marked; Lymphocytes # (A) 0.9 k/uL (1.0-4.8); Lymphocytes % (A) 12 %; Mean Platelet Volume 9.8; Microcytosis Slight; Monocytes # (A) 0.6 k/uL (0-1.0); Monocytes % (A) 8 %; Neutrophils # (A) 5.8 k/uL (1.3-7.7); Neutrophils % (A) 76 %; Platelet Count 191 k/uL (150-450); RDW 19.8 % (11.5-15.5); WBC 7.6 k/uL (3.8-10.6)
--- NOTE | 2022-11-10 09:37 | ED ---
Nausea/Vomiting/Diarrhea HPI - General Chief complaint: Nausea/Vomiting/Diarrhea Stated complaint: NVD Time Seen by Provider: 11/10/22 09:07 Source: patient, RN notes reviewed Mode of arrival: EMS Limitations: no limitations - History of Present Illness Initial comments: This is a 67-year-old female who presents to the emergency department for nausea, vomiting, and diarrhea. States that she's had diarrhea for the last 2-3 weeks, however yesterday, it increased significantly and is essentially just water at this point. States that if she stands up, stool will essentially fall out of her. She has lost count with regards to how many times she has gone to the bathroom between yesterday and today. She turned in a stool sample 2 days ago, however she has not gotten the results and her stool was not water at that point. Unsure if she has a history of C. diff. Denies any recent antibiotic use. She has generalized abdominal pain that she attributes to the diarrhea. Yesterday and into today, she started to have nausea and vomiting, but states that this is essentially just dry heaving. Additionally, patient does wear oxygen at home, but feels like she has been somewhat more short of breath over the last couple of days. She has not had to increase her oxygen use. Denies any fevers, chills, sore throat, cough, chest pain, palpitations, diarrhea, back pain, or headaches. MD complaint: nausea, vomiting, diarrhea - Related Data Home Medications Medication Instructions Recorded Confirmed Atorvastatin [Lipitor] 40 mg PO HS 03/23/16 11/10/22 DULoxetine HCL [Cymbalta] 60 mg PO HS 03/23/16 11/10/22 Metoprolol Tartrate [Lopressor] 50 mg PO BID 03/23/16 11/10/22 Omeprazole [PriLOSEC] 20 mg PO DAILY 03/23/16 11/10/22 Montelukast [Singulair] 10 mg PO HS 05/18/21 11/10/22 Ubidecarenone [Co Q-10] 200 mg PO DAILY 05/18/21 11/10/22 Gabapentin 600 mg PO TID 06/29/21 11/10/22 Budesonide-Formot 160-4.5 Mcg 2 puff INHALATION RT-BID 04/06/22 11/10/22 [Symbicort 160-4.5 Mcg Inhaler] Biotin [Biotin Disolve] 10,000 mcg PO DAILY 09/03/22 11/10/22 Letrozole [Femara] 2.5 mg PO DAILY 09/03/22 11/10/22 Apixaban [Eliquis] 5 mg PO BID 09/06/22 11/10/22 Cholecalciferol [Vitamin D3 (125 125 mcg PO DAILY 09/06/22 11/10/22 Mcg = 5000 Iu)] Cyanocobalamin (Vitamin B-12) 2,000 mcg PO DAILY 09/06/22 11/10/22 [Vitamin B-12] HYDROcodone/APAP 10-325MG [[place] 1 tab PO Q6H PRN 09/06/22 11/10/22 10-325] Albuterol Inhaler [Ventolin Hfa 2 puff INHALATION RT-Q6H PRN 11/10/22 11/10/22 Inhaler] Amiodarone [Cordarone] 200 mg PO BID 11/10/22 11/10/22 Furosemide [Lasix] 30 mg PO DAILY 11/10/22 11/10/22 Insulin Glargine-Yfgn [Semglee 30 units SQ HS 11/10/22 11/10/22 (Yfgn) Pen] amLODIPine [Norvasc] 5 mg PO BID 11/10/22 11/10/22 Previous Rx's Medication Instructions Recorded Ascorbic Acid [Vitamin C] 250 mg PO DAILY #60 tab 09/09/22 Ferrous Sulfate [Iron (65 MG 325 mg PO W/LUNCH #60 tab 09/09/22 Elemental)] Allergies Allergy/AdvReac Type Severity Reaction Status Date / Time morphine Allergy rash,itchin Verified 11/10/22 12:46 g Sulfa (Sulfonamide Allergy Rash/Hives Verified 11/10/22 12:46 Antibiotics) amoxicillin [From Augmentin] AdvReac Diarrhea Verified 11/10/22 12:46 clavulanic acid AdvReac Diarrhea Verified 11/10/22 12:46 [From Augmentin] surgical susy AdvReac Unknown Uncoded 11/10/22 09:11 Review of Systems ROS Statement: Those systems with pertinent positive or pertinent negative responses have been documented in the HPI. ROS Other: All systems not noted in ROS Statement are negative. Past Medical History Past Medical History: Atrial Fibrillation, Coronary Artery Disease (CAD), Cancer, COPD, Diabetes Mellitus, GERD/Reflux, Hyperlipidemia Additional Past Medical History / Comment(s): post polio syndrome rt side, neuropathy, hx. spontaneous pneumothorax, bowel resection for sepsis/infection,cut on toe History of Any Multi-Drug Resistant Organisms: ESBL Date of last positivie culture/infection: 06/29/21 MDRO Source:: ESBL BACK Past Surgical History: Back Surgery, Bowel Resection, Breast Surgery, Cholecystectomy, Coronary Bypass/CABG, Ear Surgery, Tonsillectomy Additional Past Surgical History / Comment(s): triple bypass 2013, left salpingo-oophorectomy, laminectomy L4 L5x3, ear surgery x 3 Past Anesthesia/Blood Transfusion Reactions: No Reported Reaction Past Psychological History: Anxiety, Depression Smoking Status: Former smoker Past Alcohol Use History: Occasional Past Drug Use History: None Reported - Past Family History Mother Family Medical History: Cancer General Exam Limitations: no limitations General appearance: alert, in no apparent distress Head exam: Present: atraumatic, normocephalic, normal inspection Respiratory exam: Present: normal lung sounds bilaterally. Absent: respiratory distress, wheezes, rales, rhonchi, stridor Cardiovascular Exam: Present: regular rate, normal rhythm, normal heart sounds. Absent: systolic murmur, diastolic murmur, rubs, gallop, clicks GI/Abdominal exam: Present: soft, tenderness (generalized). Absent: distended Neurological exam: Present: alert, oriented X3, CN II-XII intact Psychiatric exam: Present: normal affect, normal mood Skin exam: Present: warm, dry, intact, normal color. Absent: rash Course Vital Signs 11/10/22 11/10/22 09:02 12:17 Temperature 98 F Pulse Rate 56 L 57 L Respiratory 20 18 Rate Blood Pressure 118/105 120/54 O2 Sat by Pulse 91 L Oximetry Medical Decision Making - Medical Decision Making This is a 67-year-old female who presents to the emergency department for nausea, vomiting, and diarrhea. Was pt. sent in by a medical professional or institution? @ -No Did you speak to anyone other than the patient for history? @ -No Did you review nursing and triage notes? @ -Yes, and I agree, it is accurate with regards to the patient's symptoms. Were old charts reviewed? @ -No Differential Diagnosis? @ -Differential Diarrhea/Vomiting: Gastroenteritis, COVID, myocardial infarction, UTI, parasitic infection, food poisoning, IBS, crohn's disease, ulcerative colitis, C. diff, lactose intole glory, acute intraabdominal process, medications. This is not meant to be an all-inclusive list. EKG interpreted by me (3pts min.)? @ -EKG interpreted by me demonstrating the following: Sinus bradycardia. Ventricular rate 56 beats per minute, IL interval 222 ms, QRS duration 115 milliseconds, QTC 521 ms. X-rays interpreted by me (1pt min.)? @ -Chest x-ray obtained, my interpretation identifies no localized consolidations or infiltrates. CT interpreted by me (1pt min.)? @ -Not obtained U/S interpreted by me (1pt. min.)? @ -Not obtained What testing was considered but not performed? (CT, X-rays, U/S, labs)? Why? @ -None What meds were considered but not given? Why? @ -None Did you discuss the management of the patient with other professionals? @ -Yes, Dr. Peace, who accepts the patient for admission. Did you reconcile home meds? @ -Yes Was smoking cessation discussed for >3mins.? @ -No Was critical care preformed (if so, how long)? @ -No Were there social determinants of health that impacted care today? How? (Homelessness, low income, unemployed, alcoholism, drug addiction, transportat ion, low edu. Level, literacy, decrease access to med. care, fdc, rehab)? @ -No Was there de-escalation of care discussed even if they declined? (Discuss DNR or withdrawal of care, Hospice)? @ -No What co-morbidities impacted this encounter? (DM, HTN, Smoking, COPD, CAD, Cancer, CVA, Hep., AIDS, mental health diagnosis, sleep apnea, morbid obesity)? @ -DM, COPD Was patient admitted / discharged? @ -Admitted. Lab work obtained and found to be relatively nonactionable. Elevated liver enzymes are consistent with prior values. Due to her increasing shortness of breath, chest x-ray obtained. This revealed normal lung volumes with a generally hazy appearance suggestive of atelectasis versus pulmonary edema. BNP is negative for signs of CHF. Patient did test positive for C. diff. When discussing disposition options, patient states that she is unable to handle her symptoms at home by herself and feels very dehydrated. Patient subsequently admitted to medicine for C. difficile infection. She was started on oral vancomycin and maintenance IV fluids. Undiagnosed new problem with uncertain prognosis? @ -None Drug Therapy requiring intensive monitoring for toxicity (Heparin, Nitro, Insulin, Cardizem)? @ -None Were any procedures done? @ -None Diagnosis/symptom? @ -C. Diff, Dyspnea Acute, or Chronic, or Acute on Chronic? @ -Acute Uncomplicated (without systemic symptoms) or Complicated (systemic symptoms)? @ -Complicated Side effects of treatment? @ -None Exacerbation, Progression, or Severe Exacerbation] @ -Not applicable Poses a threat to life or bodily function? @ -Yes This case was discussed in detail with the attending ED physician, Dr. Sauer. Presentation, findings, and treatment plan discussed in detail as well. - Lab Data Result diagrams: 11/10/22 09:23 11/10/22 09:23 Lab Results 11/10/22 11/10/22 11/10/22 Range/Units 09:23 09:23 09:23 WBC 7.6 (3.8-10.6) k/uL RBC 4.60 (3.80-5.40) m/uL Hgb 12.4 D (11.4-16.0) gm/dL Hct 40.1 (34.0-46.0) % MCV 87.2 D (80.0-100.0) fL MCH 27.0 (25.0-35.0) pg MCHC 31.0 (31.0-37.0) g/dL RDW 19.8 H (11.5-15.5) % Plt Count 191 (150-450) k/uL MPV 9.8 Neutrophils % 76 % Lymphocytes % 12 % Monocytes % 8 % Eosinophils % 2 % Basophils % 0 % Neutrophils # 5.8 (1.3-7.7) k/uL Lymphocytes # 0.9 L (1.0-4.8) k/uL Monocytes # 0.6 (0-1.0) k/uL Eosinophils # 0.1 (0-0.7) k/uL Basophils # 0.0 (0-0.2) k/uL Hypochromasia Marked Anisocytosis Slight Microcytosis Slight Sodium 140 (137-145) mmol/L Potassium 3.6 (3.5-5.1) mmol/L Chloride 107 (98-107) mmol/L Carbon Dioxide 27 (22-30) mmol/L Anion Gap 6 mmol/L BUN 17 (7-17) mg/dL Creatinine 0.68 (0.52-1.04) mg/dL Est GFR (CKD-EPI)AfAm >90 (>60 ml/min/1.73 sqM) Est GFR (CKD-EPI)NonAf 90 (>60 ml/min/1.73 sqM) Glucose 93 (74-99) mg/dL Plasma Lactic Acid [place] (0.7-2.0) mmol/L Calcium 8.5 (8.4-10.2) mg/dL Total Bilirubin 0.7 (0.2-1.3) mg/dL AST 78 H (14-36) U/L ALT 40 H (4-34) U/L Alkaline Phosphatase 148 H (38-126) U/L NT-Pro-B Natriuret Pep 737 pg/mL Total Protein 6.1 L (6.3-8.2) g/dL Albumin 3.0 L (3.5-5.0) g/dL Amylase 46 (30-110) U/L Lipase 60 (23-300) U/L Urine Color Light Yellow Urine Appearance Clear (Clear) Urine pH 6.0 (5.0-8.0) Ur Specific [place] 1.009 (1.001-1.035) Urine Protein Negative (Negative) Urine Glucose (UA) Negative (Negative) Urine Ketones Negative (Negative) Urine Blood Large H (Negative) Urine Nitrite Negative (Negative) Urine Bilirubin Negative (Negative) Urine Urobilinogen <2.0 (<2.0) mg/dL Ur Leukocyte Esterase Negative (Negative) Urine RBC 4 (0-5) /hpf Urine WBC 1 (0-5) /hpf Ur Squamous Epith Cells 1 (0-4) /hpf Urine Bacteria Rare H (None) /hpf Urine Mucus Rare H (None) /hpf C. difficile (EIA) Intrp (Negative) Influenza Type A (PCR) (Not Detectd) Influenza Type B (PCR) (Not Detectd) RSV (PCR) (Not Detectd) SARS-CoV-2 (PCR) (Not Detectd) 11/10/22 11/10/22 11/10/22 Range/Units 09:23 09:23 09:23 WBC (3.8-10.6) k/uL RBC (3.80-5.40) m/uL Hgb (11.4-16.0) gm/dL Hct (34.0-46.0) % MCV (80.0-100.0) fL MCH (25.0-35.0) pg MCHC (31.0-37.0) g/dL RDW (11.5-15.5) % Plt Count (150-450) k/uL MPV Neutrophils % % Lymphocytes % % Monocytes % % Eosinophils % % Basophils % % Neutrophils # (1.3-7.7) k/uL Lymphocytes # (1.0-4.8) k/uL Monocytes # (0-1.0) k/uL Eosinophils # (0-0.7) k/uL Basophils # (0-0.2) k/uL Hypochromasia Anisocytosis Microcytosis Sodium (137-145) mmol/L Potassium (3.5-5.1) mmol/L Chloride (98-107) mmol/L Carbon Dioxide (22-30) mmol/L Anion Gap mmol/L BUN (7-17) mg/dL Creatinine (0.52-1.04) mg/dL Est GFR (CKD-EPI)AfAm (>60 ml/min/1.73 sqM) Est GFR (CKD-EPI)NonAf (>60 ml/min/1.73 sqM) Glucose (74-99) mg/dL Plasma Lactic Acid [place] 0.9 (0.7-2.0) mmol/L Calcium (8.4-10.2) mg/dL Total Bilirubin (0.2-1.3) mg/dL AST (14-36) U/L ALT (4-34) U/L Alkaline Phosphatase (38-126) U/L NT-Pro-B Natriuret Pep pg/mL Total Protein (6.3-8.2) g/dL Albumin (3.5-5.0) g/dL Amylase (30-110) U/L Lipase (23-300) U/L Urine Color Urine Appearance (Clear) Urine pH (5.0-8.0) Ur Specific [place] (1.001-1.035) Urine Protein (Negative) Urine Glucose (UA) (Negative) Urine Ketones (Negative) Urine Blood (Negative) Urine Nitrite (Negative) Urine Bilirubin (Negative) Urine Urobilinogen (<2.0) mg/dL Ur Leukocyte Esterase (Negative) Urine RBC (0-5) /hpf Urine WBC (0-5) /hpf Ur Squamous Epith Cells (0-4) /hpf Urine Bacteria (None) /hpf Urine Mucus (None) /hpf C. difficile (EIA) Intrp Positive A (Negative) Influenza Type A (PCR) Not Detected (Not Detectd) Influenza Type B (PCR) Not Detected (Not Detectd) RSV (PCR) Not Detected (Not Detectd) SARS-CoV-2 (PCR) Not Detected (Not Detectd) Disposition Clinical Impression: Clostridioides difficile infection, Dyspnea Disposition: ADMITTED IP TO THIS HOSP
[2022-11-10 10:05] LABS: ALT 40 U/L (4-34); AST 78 U/L (14-36); African American GFR (CKD) >90 (>60 ml/min/1.73 sqM); Alkaline Phosphatase 148 U/L (38-126); Amylase 46 U/L (30-110); Anion Gap 6 mmol/L; Blood Urea Nitrogen 17 mg/dL (7-17); Calcium 8.5 mg/dL (8.4-10.2); Carbon Dioxide 27 mmol/L (22-30); Chloride 107 mmol/L (98-107); Glucose 93 mg/dL (74-99); Lipase 60 U/L (23-300); Non-African American GFR(CKD) 90 (>60 ml/min/1.73 sqM); Potassium 3.6 mmol/L (3.5-5.1); Sodium 140 mmol/L (137-145); Total Bilirubin 0.7 mg/dL (0.2-1.3); Total Protein 6.1 g/dL (6.3-8.2)
[2022-11-10 10:11] LABS: NT-Pro-B-Type Natriuretic Pept 737 pg/mL
--- NOTE | 2022-11-10 10:11 | XR ---
EXAMINATION TYPE: XR chest 2V DATE OF EXAM: 11/10/2022 10:07 AM COMPARISON: Chest radiographs from 09/17/2022 TECHNIQUE: XR chest 2V Frontal and lateral views of the chest. CLINICAL INDICATION:Female, 67 years old with history of DEMETRA; FINDINGS: Lungs/Pleura: There is no evidence of pleural effusion, focal consolidation, or pneumothorax. Pulmonary vascularity: Unremarkable. Heart/mediastinum: Cardiomediastinal silhouette is prominent in size. Musculoskeletal: No acute osseous pathology. Midline sternotomy wires are noted. Lines/Tubes: Electric leads project over the spine. IMPRESSION: Low lung volumes with a generalized hazy appearance which could represent atelectasis versus pulmonar y edema correlate with serum BNP.
[2022-11-10 10:35] LABS: HGB 12.4 gm/dL (11.4-16.0); MCV 87.2 fL (80.0-100.0)
[2022-11-10 12:25] LABS: Appearance,Urine Clear (Clear); Bacteria,Urine Rare /hpf; Bilirubin,Urine Negative (Negative); Blood,Urine Large (Negative); Color,Urine Light Yellow; Glucose,Urine (UA) Negative (Negative); Ketones,Urine Negative (Negative); Leukocyte Esterase,Urine Negative (Negative); Mucus,Urine Rare /hpf; Nitrite,Urine Negative (Negative); Protein,Urine Negative (Negative); RBC,Urine 4 /hpf (0-5); Specific Gravity,Urine 1.009 (1.001-1.035); Squamous Epithelial Cell,Urine 1 /hpf (0-4); Urobilinogen,Urine <2.0 mg/dL (<2.0); WBC,Urine 1 /hpf (0-5)
[2022-11-10] MEDS ORDERED: ONDANSETRON 4 MG/2 ML VIAL IVP PRN (13:26)
[2022-11-10] MEDS ORDERED: NALOXONE 0.4 MG/ML 1 ML VIAL IV PRN (13:26)
[2022-11-10] MEDS ORDERED: HYDROcodone/APAP 5-325MG 1 EACH TAB PO PRN (13:26)
[2022-11-10] MEDS ORDERED: ACETAMINOPHEN TAB 325 MG TAB PO PRN (13:26)
[2022-11-10] MEDS ORDERED: VANCOMYCIN 125 MG CAPSULE PO ONE (13:45)
[2022-11-10] MEDS: SODIUM CHLORIDE 0.9% 1,000 ML IV SCH ×2 (13:51→21:10)
[2022-11-10] MEDS ORDERED: ALBUTEROL NEBULIZED 2.5 MG/3 ML INHALATION PRN (16:03)
--- NOTE | 2022-11-10 16:10 | P.HPIM ---
History of Present Illness H&P Date: 11/10/22 History of Presenting Illness: Patient is a pleasant 67-year-old female with a past medical history of advanced COPD home oxygen dependent on 2-3 L at all times, atrial fibrillation on anticoagulation with Eliquis, CAD status post CABG 3, hypertension, hyperlipidemia, insulin-dependent diabetes mellitus, and history of polio with right-sided neuropathy/deficits. She presented to the emergency department with a chief complaint of nausea, vomiting, and diarrhea. Patient reports of an ongoing 3 weeks and significantly worsened over the past 24-48 hours reporting now experiencing completely liquid stool and greater than 15 episodes daily. She states she was recently treated for an upper respiratory infection and placed on Augmentin and shortly after this is when the diarrhea began. Patient reports with the persistent and now worsening diarrhea, nausea, and vomiting she feels dehydrated and has been having worsening abdominal cramping she called her primary care doctor and was instructed to come to the ER for evaluation. Patient denies having any fevers, chills, diaphoresis, headache, lightheadedness, dizziness, chest pain, palpitations, increase her changes in shortness of breath, or experiencing any numbness/tingling/weakness in her extremities. Patient reports chronic swelling in bilateral lower extremities and takes Lasix 30 mg daily. She underwent full evaluation in the emergency department. Labs completed and reviewed. CBC unremarkable with hemoglobin of 12.4 and WBC count 7.6 with platelet count of 191. BMP unremarkable. Liver profile showing transaminitis with elevated AST of 78, ALT of 40, and alkaline phosphatase 148. Amylase and lipase normal findings. Urinalysis negative for infection. Influenza A, influenza B, RSV, and Covid PCR were all negative. C. diff was positive. Discussed patient's complaints, physical exam findings, and laboratory analysis in detail with the ED physician. Patient placed on IV fluid hydration and admitted under our services to observation unit for overnight monitoring. Review of systems: Pertinent positives and negatives as discussed in HPI, a complete review of systems was performed and all other systems are negative. Physical exam: Vital signs reviewed and stable. General: Nontoxic, no distress and appears stated age. Derm: Skin warm and dry, normal coloration for ethnicity. Head: Atraumatic, normocephalic and symmetric. Eyes: EOMs intact, no lid lag, and anicteric sclera Mouth: no lip lesions, mucus membranes moist Cardiovascular: regular rate and rhythm with normal S1S2, no murmur, positive posterior tibial pulses bilaterally, and cap refill < 2 seconds. Lungs: Respirations even, regular, and unlabored on room air. Lungs CTA bilaterally, no rhonchi, no rales, no wheezing, and no accessory muscle usage. Abdominal: soft, nontender to palpation, no guarding, no appreciable organomegaly Ext: ROM intact. No gross muscle atrophy, no edema, no contractures Neuro: Speech clear, face symmetrical and CN II-XII grossly intact with no noted focal neuro deficits Psych: Alert and oriented to person, place, time, and situation. Appropriate and pleasant affect. Assessment and Plan of Care: Clostridium difficile infection Diffuse abdominal cramping, nausea, vomiting, and watery diarrhea secondary to above Dehydration secondary to above Transaminitis, believed to be reactive - Labs completed and reviewed. CBC unremarkable with hemoglobin of 12.4 and WBC count 7.6 with platelet count of 191. BMP unremarkable. Liver profile showing transaminitis with elevated AST of 78, ALT of 40, and alkaline phosphatase 148. Amylase and lipase normal findings. Urinalysis negative for infection. Influenza A, influenza B, RSV, and Covid PCR were all negative. C. diff was positive. -Discussed patient's complaints, physical exam findings, and laboratory analysis in detail with the ED physician. -Patient received 1 L bolus 0.9% normal saline in the emergency department and placed on continuous IV fluid infusion with 0.9% normal saline at 130 mL's per hour 24 hours for rehydration. -Patient started on vancomycin 125 mg by mouth 4 times daily for treatment of C. diff. -Contact precautions placed. -Lasix held secondary to patient's reports of persistent nausea, vomiting, and diarrhea and need for rehydration, we will resume oral diuretic once dehydration has been treated. -Zofran 4 mg IVP every 4 hours as needed for nausea/vomiting. Chronic hypoxic respiratory failure secondary to advanced COPD home oxygen dependent -Oxygenation to be administered and titrated as needed to maintain SPO2 equal to or greater than or equal to 90% -Monitor Pulse-oximetry -Duonebs as needed for SOB and/or wheezing -Continue Ventolin, Symbicort and Singulair. Paroxysmal Atrial fibrillation CAD status post CABG 3 Hypertension Hyperlipidemia -Continue home cardiac medication regimen with amiodarone 200 mg twice daily, amlodipine 5 mg twice daily, anticoagulation with Eliquis 5 mg twice a day, atorvastatin 40 mg nightly, and metoprolol 50 mg twice daily -Patient free from cardiac complaints at this time. Insulin-dependent diabetes mellitus -Currently blood glucose 93. Order placed for heart healthy diet and patient to continue with Levemir 30 units nightly and placed on glycemic protocol with NovoLog sliding scale. The patient is admitted with an anticipated less than 2 midnight stay for evaluation of dehydration secondary to persistent diarrhea resulting from C. diff CODE STATUS: Full code DVT prophylaxis: Eliquis Discussed with: Pt, ED provider and RN. Anticipated discharge date: 1-[address]: Home Patient was seen independently by Nurse Practitioner. This document was prepared using [employer] dictation software. Please allow for errors in head of art while rare they do occur. Mark Whelan NP rendered care for this patient independently, reviewed the findings and plan as documented in the note above. I did not physically speak with or examine the patient on this date. Past Medical History Past Medical History: Atrial Fibrillation, Coronary Artery Disease (CAD), Cancer, COPD, Diabetes Mellitus, GERD/Reflux, Hyperlipidemia Additional Past Medical History / Comment(s): post polio syndrome rt side, neuropathy, hx. spontaneous pneumothorax, bowel resection for sepsis/infection,cut on toe History of Any Multi-Drug Resistant Organisms: ESBL Date of last positivie culture/infection: 06/29/21 MDRO Source:: ESBL BACK Past Surgical History: Back Surgery, Bowel Resection, Breast Surgery, Cholecystectomy, Coronary Bypass/CABG, Ear Surgery, Tonsillectomy Additional Past Surgical History / Comment(s): triple bypass 2014, left salpingo-oophorectomy, laminectomy L4 L5x3, ear surgery x 3 Past Anesthesia/Blood Transfusion Reactions: No Reported Reaction Past Psychological History: Anxiety, Depression Smoking Status: Former smoker Past Alcohol Use History: Occasional Past Drug Use History: None Reported - Past Family History Mother Family Medical History: Cancer Medications and Allergies Home Medications Medication Instructions Recorded Confirmed Type Atorvastatin [Lipitor] 40 mg PO HS 03/23/16 11/10/22 History DULoxetine HCL [Cymbalta] 60 mg PO HS 03/23/16 11/10/22 History Metoprolol Tartrate [Lopressor] 50 mg PO BID 03/23/16 11/10/22 History Omeprazole [PriLOSEC] 20 mg PO DAILY 03/23/16 11/10/22 History Montelukast [Singulair] 10 mg PO HS 05/18/21 11/10/22 History Ubidecarenone [Co Q-10] 200 mg PO DAILY 05/18/21 11/10/22 History Gabapentin 600 mg PO TID 06/29/21 11/10/22 History Budesonide-Formot 160-4.5 Mcg 2 puff INHALATION RT-BID 04/06/22 11/10/22 History [Symbicort 160-4.5 Mcg Inhaler] Biotin [Biotin Disolve] 10,000 mcg PO DAILY 09/03/22 11/10/22 History Letrozole [Femara] 2.5 mg PO DAILY 09/03/22 11/10/22 History Apixaban [Eliquis] 5 mg PO BID 09/06/22 11/10/22 History Cholecalciferol [Vitamin D3 (125 125 mcg PO DAILY 09/06/22 11/10/22 History Mcg = 5000 Iu)] Cyanocobalamin (Vitamin B-12) 2,000 mcg PO DAILY 09/06/22 11/10/22 History [Vitamin B-12] HYDROcodone/APAP 10-325MG [[place] 1 tab PO Q6H PRN 09/06/22 11/10/22 History 10-325] Ascorbic Acid [Vitamin C] 250 mg PO DAILY #60 tab 09/09/22 11/10/22 Rx Ferrous Sulfate [Iron (65 MG 325 mg PO W/LUNCH #60 tab 09/09/22 11/10/22 Rx Elemental)] Albuterol Inhaler [Ventolin Hfa 2 puff INHALATION RT-Q6H PRN 11/10/22 11/10/22 History Inhaler] Amiodarone [Cordarone] 200 mg PO BID 11/10/22 11/10/22 History Furosemide [Lasix] 30 mg PO DAILY 11/10/22 11/10/22 History Insulin Glargine-Yfgn [Semglee 30 units SQ HS 11/10/22 11/10/22 History (Yfgn) Pen] amLODIPine [Norvasc] 5 mg PO BID 11/10/22 11/10/22 History Ondansetron Odt [Zofran Odt] 4 mg PO Q8HR PRN #30 tab 11/11/22 Rx Vancomycin 125 mg PO QID 9 Days #36 cap 11/11/22 Rx Allergies Allergy/AdvReac Type Severity Reaction Status Date / Time morphine Allergy rash,itchin Verified 11/10/22 12:46 g Sulfa (Sulfonamide Allergy Rash/Hives Verified 11/10/22 12:46 Antibiotics) amoxicillin [From Augmentin] AdvReac Diarrhea Verified 11/10/22 12:46 clavulanic acid AdvReac Diarrhea Verified 11/10/22 12:46 [From Augmentin] surgical susy AdvReac Unknown Uncoded 11/10/22 09:11 Physical Exam Vitals: Vital Signs Temp Pulse Resp BP Pulse Ox 11/10/22 12:17 57 L 18 120/54 91 L 11/10/22 09:02 98 F 56 L 20 118/105 Intake and Output 11/10/22 11/10/22 11/10/22 06:59 14:59 22:59 Other: Weight 90.718 kg Results CBC & Chem 7: 11/11/22 04:13 11/11/22 04:13 Labs: Abnormal Lab Results - Last 24 Hours (Table) 11/10/22 11/10/22 11/10/22 Range/Units 09:23 09:23 09:23 RDW 19.8 H (11.5-15.5) % Lymphocytes # 0.9 L (1.0-4.8) k/uL AST 78 H (14-36) U/L ALT 40 H (4-34) U/L Alkaline Phosphatase 148 H (38-126) U/L Total Protein 6.1 L (6.3-8.2) g/dL Albumin 3.0 L (3.5-5.0) g/dL Urine Blood Large H (Negative) Urine Bacteria Rare H (None) /hpf Urine Mucus Rare H (None) /hpf C. difficile (EIA) Intrp (Negative) 11/10/22 Range/Units 09:23 RDW (11.5-15.5) % Lymphocytes # (1.0-4.8) k/uL AST (14-36) U/L ALT (4-34) U/L Alkaline Phosphatase (38-126) U/L Total Protein (6.3-8.2) g/dL Albumin (3.5-5.0) g/dL Urine Blood (Negative) Urine Bacteria (None) /hpf Urine Mucus (None) /hpf C. difficile (EIA) Intrp Positive A (Negative)
[2022-11-10] MEDS: VANCOMYCIN 125 MG CAPSULE PO SCH ×2 (17:23→21:07)
[2022-11-10] MEDS ORDERED: DEXTROSE 50% SYRINGE 50 ML IVP PRN ×2 (18:41)
[2022-11-10 20:57] LABS: Glucose,Whole Blood 70 mg/dL (70-110)
[2022-11-10] MEDS: AMIODARONE 200 MG TAB PO SCH (21:07)
[2022-11-10] MEDS: ATORVASTATIN 40 MG TAB PO SCH (21:07)
[2022-11-10] MEDS: APIXABAN 5 MG TAB PO SCH (21:07)
[2022-11-10] MEDS: MONTELUKAST 10 MG TAB PO SCH (21:07)
[2022-11-10] MEDS: GABAPENTIN 300 MG CAP PO SCH (21:07)
[2022-11-10] MEDS: METOPROLOL TARTRATE 50 MG TAB PO SCH (21:07)
[2022-11-10] MEDS: DULoxetine HCL 60 MG CAPSULE.DR PO SCH (21:07)
[2022-11-10] MEDS: amLODIPine 5 MG TAB PO SCH (21:10)
[2022-11-10] MEDS: INSULIN ASPART (NovoLOG) 100 UNIT/ML VIAL SQ SCH (21:10)
[2022-11-10] MEDS: INSULIN DETEMIR (LEVEMIR) 100 UNIT/ML SYR SQ SCH (21:10)
[2022-11-10] MEDS: SYMBICORT 160-4.5 MCG INHALER INHALATION SCH (22:14)
[2022-11-11] MEDS: SODIUM CHLORIDE 0.9% 1,000 ML IV SCH (05:01)
[2022-11-11 05:35] LABS: Glucose,Whole Blood 107 mg/dL (70-110)
[2022-11-11] MEDS: INSULIN ASPART (NovoLOG) 100 UNIT/ML VIAL SQ SCH ×4 (05:41→21:07)
[2022-11-11] MEDS: SYMBICORT 160-4.5 MCG INHALER INHALATION SCH ×2 (07:59→20:09)
[2022-11-11] MEDS: VANCOMYCIN 125 MG CAPSULE PO SCH ×4 (08:31→21:16)
[2022-11-11] MEDS: AMIODARONE 200 MG TAB PO SCH ×2 (08:31→21:15)
[2022-11-11] MEDS: LETROZOLE 2.5 MG TAB PO SCH (08:31)
[2022-11-11] MEDS: CYANOCOBALAMIN 500 MCG TAB PO SCH (08:31)
[2022-11-11] MEDS: APIXABAN 5 MG TAB PO SCH ×2 (08:32→21:15)
[2022-11-11] MEDS: METOPROLOL TARTRATE 50 MG TAB PO SCH ×2 (08:32→21:16)
[2022-11-11] MEDS: amLODIPine 5 MG TAB PO SCH ×2 (08:32→21:15)
[2022-11-11] MEDS: CHOLECALCIFEROL 125 MCG (5000 IU) TABLET PO SCH (08:32)
[2022-11-11] MEDS: ASCORBIC ACID 500 MG TAB PO SCH (08:32)
[2022-11-11] MEDS: PATIENT'S OWN (Ubidecarenone [Co Q-10] 100 MG Capsule) PO SCH (08:33)
[2022-11-11] MEDS: GABAPENTIN 300 MG CAP PO SCH ×3 (08:33→21:16)
[2022-11-11] MEDS: PANTOPRAZOLE 40 MG TABLET PO SCH (08:33)
[2022-11-11 08:34] LABS: HCT 36.7 % (37.2-46.3); HGB 11.1 d/dL (12.0-15.0); MCH 26.2 pg (27.0-32.0); MCHC 30.2 d/dL (32.0-37.0); MCV 86.8 FL (80.0-97.0); NRBC Per 100 WBC 0 X 10*3/uL (0.00-0.01); Platelet Count 206 X 10*3/uL (140-440); RBC 4.23 X 10*6/uL (4.10-5.20); RDW 21.8 % (11.5-14.5); WBC 10.09 X 10*3/uL (4.50-10.00)
[2022-11-11] MEDS ORDERED: NON FORMULARY DRUG (Biotin [Biotin Disolve] 10,000 MCG Tablet) PO SCH (09:00)
[2022-11-11] MEDS ORDERED: FUROSEMIDE 20 MG TAB PO SCH (09:00)
[2022-11-11 09:02] LABS: Magnesium 1.6 mg/dL (1.5-2.4)
[2022-11-11 09:25] LABS: ALT 38 U/L (8-44); AST 80 U/L (13-35); Albumin 3.2 d/dL (3.8-4.9); Albumin/Globulin Ratio 1.28 Ratio (1.60-3.17); Alkaline Phosphatase 146 U/L (41-126); BUN/Creat Ratio 17.33 Ratio (12.00-20.00); Blood Urea Nitrogen 15.6 mg/dL (9.0-27.0); Calcium 8.8 mg/dL (8.7-10.3); Carbon Dioxide 20.9 mmol/L (21.6-31.8); Chloride 108 mmol/L (96-109); Globulin 2.5 d/dL (1.6-3.3); Glucose 101 mg/dL (70-110); Potassium 3.7 mmol/L (3.5-5.5); Sodium 142 mmol/L (135-145); Total Bilirubin 0.3 mg/dL (0.3-1.2); Total Protein 5.7 d/dL (6.2-8.2)
[2022-11-11] MEDS: HYDROcodone/APAP 10-325MG 1 EACH TAB PO PRN ×2 (09:48→15:43)
[2022-11-11] MEDS ORDERED: LIDOCAINE 4% CREAM 5 GM TUBE TOPICAL ONE (12:00)
[2022-11-11 12:07] LABS: Glucose,Whole Blood 111 mg/dL (70-110)
[2022-11-11] MEDS: FERROUS SULFATE 325 MG TAB PO SCH (12:26)
--- NOTE | 2022-11-11 15:14 | P.DS ---
Providers Date of admission: 11/10/22 15:34 Expected date of discharge: 11/11/22 Attending physician: Addi Peace MD Primary care physician: Teja Lozano MD Hospital Course: Discharge Diagnosis: Clostridium difficile infection, patient received 4 doses of oral vancomycin during hospitalization. She is being discharged home on oral antibiotics with vancomycin 125 mg by mouth every 6 hours for an additional 9 days to totally treatment course of 10 days of antibiotics for treatment of Clostridium difficile infection. Diffuse abdominal cramping, nausea, vomiting, and watery diarrhea secondary to above. Abdominal cramping, nausea and vomiting fully resolved. Dehydration secondary to above. Transaminitis, chronic and stable upon review of previous labs. Chronic hypoxic respiratory failure secondary to advanced COPD home oxygen dependent. Continue use of home oxygen and outpatient follow-up with salesperson furs as needed. Continue home medication regimen with Ventolin rescue inhaler as needed for wheezing and shortness of breath along with scheduled Symbicort and Singulair. Paroxysmal Atrial fibrillation. Continue daily medication regimen with metoprolol 50 mg twice daily, amiodarone 200 mg twice daily, and Eliquis 5 mg twice a day, CAD status post CABG 3. Continue home cardiac medication regimen with amiodarone 200 mg twice daily, amlodipine 5 mg twice daily, anticoagulation with Eliquis 5 mg twice a day, atorvastatin 40 mg nightly, and metoprolol 50 mg twice daily Hypertension. Blood pressure is well controlled on current medication regimen. Patient to continue with amlodipine 5 mg twice daily and metoprolol 50 mg twice daily. Blood pressure at time of discharge 131/66 with heart rate of 66. Hyperlipidemia. Continue heart healthy diet and atorvastatin 40 mg nightly. Insulin-dependent diabetes mellitus. Patient to continue current medication regimen with Levemir 30 units nightly and instructed to monitor blood glucose levels closely especially during episodes of decreased oral intake, vomiting, or diarrhea. Hospital Course: Patient is a pleasant 67-year-old female with a past medical history of advanced COPD home oxygen dependent on 2-3 L at all times, atrial fibrillation on anticoagulation with Eliquis, CAD status post CABG 3, hypertension, hyperlipidemia, insulin-dependent diabetes mellitus, and history of polio with right-sided neuropathy/deficits. She presented to the emergency department with a chief complaint of nausea, vomiting, and diarrhea. Patient reports of an ongoing 3 weeks and significantly worsened over the past 24-48 hours reporting now experiencing completely liquid stool and greater than 15 episodes daily. She states she was recently treated for an upper respiratory infection and placed on Augmentin and shortly after this is when the diarrhea began. Patient reports with the persistent and now worsening diarrhea, nausea, and vomiting she feels dehydrated and has been having worsening abdominal cramping she called her primary care doctor and was instructed to come to the ER for evaluation. Patient denies having any fevers, chills, diaphoresis, headache, lightheadedness, dizziness, chest pain, palpitations, increase her changes in shortness of breath, or experiencing any numbness/tingling/weakness in her extremities. Patient reports chronic swelling in bilateral lower extremities and takes Lasix 30 mg daily. She underwent full evaluation in the emergency department. Labs completed and reviewed. CBC unremarkable with hemoglobin of 12.4 and WBC count 7.6 with platelet count of 191. BMP unremarkable. Liver profile showing transaminitis with elevated AST of 78, ALT of 40, and alkaline phosphatase 148. Amylase and lipase normal findings. Urinalysis negative for infection. Influenza A, influenza B, RSV, and Covid PCR were all negative. C. diff was positive. Discussed patient's complaints, physical exam findings, and laboratory analysis in detail with the ED physician. Patient placed on IV fluid hydration and admitted under our services to observation unit for overnight monitoring. Patient received IV hydration and was started on oral vancomycin for treatment of C. diff. Patient reports previously having episodes of diarrhea every 15 minutes and now reports small amounts 2-3 hours. Patient denies having any abdominal cramping or pain and has had full resolution of previous reported nausea and vomiting and tolerating a heart healthy diet. Had long discussion with patient, patient feels she is feeling much better and ready to go home. Patient denies having any other complaints including headache, lightheadedness, dizziness, chest pain, palpitations, shortness of breath, abdominal pain or cramping, difficulties with urination, or experiencing any hematochezia or melena. Medically, patient stable for discharge at this time blood pressure 131/66, heart rate 66, respiratory rate 15, temp 97.8F, and SpO2 of 94% on [address] Lozano was notified of patient's discharge and patient to follow-up outpatient with PCP as discussed in 2-3 days.. Physical exam: Vital signs reviewed and stable. General: Nontoxic, no distress and appears stated age. Derm: Skin warm and dry, normal coloration for ethnicity. Head: Atraumatic, normocephalic and symmetric. Eyes: EOMs intact, no lid lag, and anicteric sclera Mouth: no lip lesions, mucus membranes moist Cardiovascular: regular rate and rhythm with normal S1S2, no murmur, positive posterior tibial pulses bilaterally, and cap refill < 2 seconds. Lungs: Respirations even, regular, and unlabored on room air. Lungs CTA bilaterally, no rhonchi, no rales, no wheezing, and no accessory muscle usage. Abdominal: soft, nontender to palpation, no guarding, no appreciable organomegaly Ext: ROM intact. No gross muscle atrophy, 1+ pitting bilateral lower extremity edema, no contractures Neuro: Speech clear, face symmetrical and CN II-XII grossly intact with no noted focal neuro deficits Psych: Alert and oriented to person, place, time, and situation. Appropriate and pleasant affect. A total of 39 minutes of time were spent preparing this complex discharge summary. Pt was discharged on 11/11/22 at 3:07 PM. Patient was seen independently by Nurse Practitioner. This document was prepared using [employer] dictation software. Please allow for errors in strategic accounts manager while rare they do occur. I reviewed the documentation as provided by the CHARLA above, who is the original author of this note. I agree with the documented assessment and plan, with the following changes: none Patient Condition at Discharge: Stable Plan - Discharge Summary New Discharge Prescriptions: New Vancomycin 125 mg PO QID 9 Days #36 cap Ondansetron Odt [Zofran Odt] 4 mg PO Q8HR PRN #30 tab PRN Reason: Nausea And Vomiting Continue Omeprazole [PriLOSEC] 20 mg PO DAILY DULoxetine HCL [Cymbalta] 60 mg PO HS Atorvastatin [Lipitor] 40 mg PO HS Metoprolol Tartrate [Lopressor] 50 mg PO BID Budesonide-Formot 160-4.5 Mcg [Symbicort 160-4.5 Mcg Inhaler] 2 puff INHALATION RT-BID Letrozole [Femara] 2.5 mg PO DAILY Biotin [Biotin Disolve] 10,000 mcg PO DAILY Cholecalciferol [Vitamin D3 (125 Mcg = 5000 Iu)] 125 mcg PO DAILY Cyanocobalamin (Vitamin B-12) [Vitamin B-12] 2,000 mcg PO DAILY HYDROcodone/APAP 10-325MG [[place] 10-325] 1 tab PO Q6H PRN PRN Reason: Pain Apixaban [Eliquis] 5 mg PO BID Albuterol Inhaler [Ventolin Hfa Inhaler] 2 puff INHALATION RT-Q6H PRN PRN Reason: Shortness Of Breath Furosemide [Lasix] 30 mg PO DAILY Ubidecarenone [Co Q-10] 200 mg PO DAILY Montelukast [Singulair] 10 mg PO HS Gabapentin 600 mg PO TID Ferrous Sulfate [Iron (65 MG Elemental)] 325 mg PO W/LUNCH #60 tab Ascorbic Acid [Vitamin C] 250 mg PO DAILY #60 tab Amiodarone [Cordarone] 200 mg PO BID amLODIPine [Norvasc] 5 mg PO BID Insulin Glargine-Yfgn [Semglee (Yfgn) Pen] 30 units SQ HS Discharge Medication List Atorvastatin [Lipitor] 40 mg PO HS 03/23/16 [History] DULoxetine HCL [Cymbalta] 60 mg PO HS 03/23/16 [History] Metoprolol Tartrate [Lopressor] 50 mg PO BID 03/23/16 [History] Omeprazole [PriLOSEC] 20 mg PO DAILY 03/23/16 [History] Montelukast [Singulair] 10 mg PO HS 05/18/21 [History] Ubidecarenone [Co Q-10] 200 mg PO DAILY 05/18/21 [History] Gabapentin 600 mg PO TID 06/29/21 [History] Budesonide-Formot 160-4.5 Mcg [Symbicort 160-4.5 Mcg Inhaler] 2 puff INHALATION RT-BID 04/06/22 [History] Biotin [Biotin Disolve] 10,000 mcg PO DAILY 09/03/22 [History] Letrozole [Femara] 2.5 mg PO DAILY 09/03/22 [History] Apixaban [Eliquis] 5 mg PO BID 09/06/22 [History] Cholecalciferol [Vitamin D3 (125 Mcg = 5000 Iu)] 125 mcg PO DAILY 09/06/22 [History] Cyanocobalamin (Vitamin B-12) [Vitamin B-12] 2,000 mcg PO DAILY 09/06/22 [History] HYDROcodone/APAP 10-325MG [[place] 10-325] 1 tab PO Q6H PRN 09/06/22 [History] Ascorbic Acid [Vitamin C] 250 mg PO DAILY #60 tab 09/09/22 [Rx] Ferrous Sulfate [Iron (65 MG Elemental)] 325 mg PO W/LUNCH #60 tab 09/09/22 [Rx] Albuterol Inhaler [Ventolin Hfa Inhaler] 2 puff INHALATION RT-Q6H PRN 11/10/22 [History] Amiodarone [Cordarone] 200 mg PO BID 11/10/22 [History] Furosemide [Lasix] 30 mg PO DAILY 11/10/22 [History] Insulin Glargine-Yfgn [Semglee (Yfgn) Pen] 30 units SQ HS 11/10/22 [History] amLODIPine [Norvasc] 5 mg PO BID 11/10/22 [History] Ondansetron Odt [Zofran Odt] 4 mg PO Q8HR PRN #30 tab 11/11/22 [Rx] Vancomycin 125 mg PO QID 9 Days #36 cap 11/11/22 [Rx] Follow up Appointment(s)/Referral(s): Teja Lozano MD [Primary Care Provider] - 1-2 days Patient Instructions/Handouts: Diet for Stomach Ulcers and Gastritis (GEN), C. Diff (Clostridioides Difficile) Infection (DC) Activity/Diet/Wound Care/Special Instructions: Activity: As tolerated. Take breaks as needed. Diet: Start out with SANJEEV diet, such as bananna's, rice, applesauce and toast. Gove foods will be tolerated better. As discussed recommend probiotics with Yogurt to help build back some healthy gut bacteria. Once diarrhea has improved, you may resume your heart healthy and carb consistent diet. Continue to avoid salts, or foods with hidden salts such as canned or boxed foods and frozen dinners. Extra salt makes your heart work harder and traps the fluid in your body for longer. Special Instructions: Take all of your medications as directed and remember to keep all of your doctor's appointments and follow-up as needed. As discussed, you may resume your Lasix once you have had improvement in frequency and consistency with her diarrhea. No need to further dehydrate herself with a diuretic when you're having such frequent episodes of diarrhea. Once diarrhea has improved you may resume your Lasix. During time your holding her Lasix make sure to weigh yourself daily if you notice a significant increase in the swelling of your legs or U cane more than 3 pounds overnight or 5 pounds in a week you may need to resume your Lasix sooner. It is important to follow- up with your PCP, Dr. Lozano in 2-3 days from discharge. He can also monitor this closely. Also, it is important to monitor blood glucose levels closely at any time you are feeling under the weather or having decreased oral intake, vomiting, or diarrhea as these episodes could result in a hypoglycemic events. Thank you for allowing us to participate in your care, it was truly a pleasure having you for our patient!!! Discharge Disposition: HOME SELF-CARE
[2022-11-11 17:35] LABS: Glucose,Whole Blood 131 mg/dL (70-110)
[2022-11-11 21:04] LABS: Glucose,Whole Blood 137 mg/dL (70-110)
[2022-11-11] MEDS: INSULIN DETEMIR (LEVEMIR) 100 UNIT/ML SYR SQ SCH (21:07)
[2022-11-11] MEDS: ATORVASTATIN 40 MG TAB PO SCH (21:15)
[2022-11-11] MEDS: MONTELUKAST 10 MG TAB PO SCH (21:16)
[2022-11-11] MEDS: DULoxetine HCL 60 MG CAPSULE.DR PO SCH (21:16)
[2022-11-12 05:56] LABS: Glucose,Whole Blood 135 mg/dL (70-110)
[2022-11-12] MEDS: INSULIN ASPART (NovoLOG) 100 UNIT/ML VIAL SQ SCH ×2 (06:15→12:08)
[2022-11-12 08:07] VITALS: BP 123/62; PULSE 65; RESP 16; TEMP 97.7
[2022-11-12] MEDS: amLODIPine 5 MG TAB PO SCH (08:10)
[2022-11-12] MEDS: CYANOCOBALAMIN 500 MCG TAB PO SCH (08:10)
[2022-11-12] MEDS: ASCORBIC ACID 500 MG TAB PO SCH (08:11)
[2022-11-12] MEDS: METOPROLOL TARTRATE 50 MG TAB PO SCH (08:11)
[2022-11-12] MEDS: PANTOPRAZOLE 40 MG TABLET PO SCH (08:11)
[2022-11-12] MEDS: APIXABAN 5 MG TAB PO SCH (08:12)
[2022-11-12] MEDS: GABAPENTIN 300 MG CAP PO SCH (08:12)
[2022-11-12] MEDS: VANCOMYCIN 125 MG CAPSULE PO SCH ×2 (08:13→12:15)
[2022-11-12] MEDS: AMIODARONE 200 MG TAB PO SCH (08:13)
[2022-11-12] MEDS: LETROZOLE 2.5 MG TAB PO SCH (08:14)
[2022-11-12] MEDS: PATIENT'S OWN (Ubidecarenone [Co Q-10] 100 MG Capsule) PO SCH (08:18)
[2022-11-12] MEDS: CHOLECALCIFEROL 125 MCG (5000 IU) TABLET PO SCH (08:24)
[2022-11-12] MEDS: SYMBICORT 160-4.5 MCG INHALER INHALATION SCH (09:46)
--- NOTE | 2022-11-12 10:35 | P.DS ---
Providers Date of admission: 11/10/22 15:34 Expected date of discharge: 11/12/22 Attending physician: Addi Peace MD Primary care physician: Teja Lozano MD Hospital Course: Discharge Diagnosis: Clostridium difficile infection, patient received 4 doses of oral vancomycin during hospitalization. She is being discharged home on oral antibiotics with vancomycin 125 mg by mouth every 6 hours for an additional 9 days to totally treatment course of 10 days of antibiotics for treatment of Clostridium difficile infection. Diffuse abdominal cramping, nausea, vomiting, and watery diarrhea secondary to above. Abdominal cramping, nausea and vomiting fully resolved. Dehydration secondary to above. Transaminitis, chronic and stable upon review of previous labs. Chronic hypoxic respiratory failure secondary to advanced COPD home oxygen dependent. Continue use of home oxygen and outpatient follow-up with hand filer balance wheel as needed. Continue home medication regimen with Ventolin rescue inhaler as needed for wheezing and shortness of breath along with scheduled Symbicort and Singulair. Paroxysmal Atrial fibrillation. Continue daily medication regimen with metoprolol 50 mg twice daily, amiodarone 200 mg twice daily, and Eliquis 5 mg twice a day, CAD status post CABG 3. Continue home cardiac medication regimen with amiodarone 200 mg twice daily, amlodipine 5 mg twice daily, anticoagulation with Eliquis 5 mg twice a day, atorvastatin 40 mg nightly, and metoprolol 50 mg twice daily Hypertension. Blood pressure is well controlled on current medication regimen. Patient to continue with amlodipine 5 mg twice daily and metoprolol 50 mg twice daily. Blood pressure at time of discharge 131/66 with heart rate of 66. Hyperlipidemia. Continue heart healthy diet and atorvastatin 40 mg nightly. Insulin-dependent diabetes mellitus. Patient to continue current medication regimen with Levemir 30 units nightly and instructed to monitor blood glucose levels closely especially during episodes of decreased oral intake, vomiting, or diarrhea. Hospital Course: Patient is a pleasant 67-year-old female with a past medical history of advanced COPD home oxygen dependent on 2-3 L at all times, atrial fibrillation on anticoagulation with Eliquis, CAD status post CABG 3, hypertension, hyperlipidemia, insulin-dependent diabetes mellitus, and history of polio with right-sided neuropathy/deficits. She presented to the emergency department with a chief complaint of nausea, vomiting, and diarrhea. Patient reports of an ongoing 3 weeks and significantly worsened over the past 24-48 hours reporting now experiencing completely liquid stool and greater than 15 episodes daily. She states she was recently treated for an upper respiratory infection and placed on Augmentin and shortly after this is when the diarrhea began. Patient reports with the persistent and now worsening diarrhea, nausea, and vomiting she feels dehydrated and has been having worsening abdominal cramping she called her primary care doctor and was instructed to come to the ER for evaluation. Patient denies having any fevers, chills, diaphoresis, headache, lightheadedness, dizziness, chest pain, palpitations, increase her changes in shortness of breath, or experiencing any numbness/tingling/weakness in her extremities. Patient reports chronic swelling in bilateral lower extremities and takes Lasix 30 mg daily. She underwent full evaluation in the emergency department. Labs completed and reviewed. CBC unremarkable with hemoglobin of 12.4 and WBC count 7.6 with platelet count of 191. BMP unremarkable. Liver profile showing transaminitis with elevated AST of 78, ALT of 40, and alkaline phosphatase 148. Amylase and lipase normal findings. Urinalysis negative for infection. Influenza A, influenza B, RSV, and Covid PCR were all negative. C. diff was positive. Discussed patient's complaints, physical exam findings, and laboratory analysis in detail with the ED physician. Patient placed on IV fluid hydration and admitted under our services to observation unit for overnight monitoring. Patient received IV hydration and was started on oral vancomycin for treatment of C. diff. Patient reports previously having episodes of diarrhea every 15 minutes and now reports thickened stools with last episode being yesterday evening.. Patient denies having any abdominal cramping or pain and has had full resolution of previous reported nausea and vomiting and tolerating a heart healthy diet. Patient denies having any other complaints i ncluding headache, lightheadedness, dizziness, chest pain, palpitations, shortness of breath, abdominal pain or cramping, difficulties with urination, or experiencing any hematochezia or melena. Medically, patient stable for discharge at this time blood pressure 123/62, heart rate 65, respiratory rate 16, temp 97.7F, and SpO2 of 93% on [address] Lozano was notified of patient's discharge and patient to follow-up outpatient with PCP as discussed in 2-3 days.. Physical exam: Vital signs reviewed and stable. General: Nontoxic, no distress and appears stated age. Derm: Skin warm and dry, normal coloration for ethnicity. Head: Atraumatic, normocephalic and symmetric. Eyes: EOMs intact, no lid lag, and anicteric sclera Mouth: no lip lesions, mucus membranes moist Cardiovascular: regular rate and rhythm with normal S1S2, no murmur, positive posterior tibial pulses bilaterally, and cap refill < 2 seconds. Lungs: Respirations even, regular, and unlabored on room air. Lungs CTA bilaterally, no rhonchi, no rales, no wheezing, and no accessory muscle usage. Abdominal: soft, nontender to palpation, no guarding, no appreciable organ omegaly Ext: ROM intact. No gross muscle atrophy, 1+ pitting bilateral lower extremity edema, no contractures Neuro: Speech clear, face symmetrical and CN II-XII grossly intact with no noted focal neuro deficits Psych: Alert and oriented to person, place, time, and situation. Appropriate and pleasant affect. A total of 32 minutes of time were spent preparing this complex discharge summary. Pt was discharged on 11/12/22 at 10:34 AM Patient was seen independently by Nurse Practitioner. This document was prepared using [employer] dictation software. Please allow for errors in clinical technician while rare they do occur. Mark Whelan NP rendered care for this patient independently, reviewed the findings and plan as documented in the note above. I did not physically speak with or examine the patient on this date. Patient Condition at Discharge: Stable Plan - Discharge Summary New Discharge Prescriptions: New Vancomycin 125 mg PO QID 9 Days #36 cap Ondansetron Odt [Zofran Odt] 4 mg PO Q8HR PRN #30 tab PRN Reason: Nausea And Vomiting Continue Omeprazole [PriLOSEC] 20 mg PO DAILY DULoxetine HCL [Cymbalta] 60 mg PO HS Atorvastatin [Lipitor] 40 mg PO HS Metoprolol Tartrate [Lopressor] 50 mg PO BID Budesonide-Formot 160-4.5 Mcg [Symbicort 160-4.5 Mcg Inhaler] 2 puff INHALATION RT-BID Letrozole [Femara] 2.5 mg PO DAILY Biotin [Biotin Disolve] 10,000 mcg PO DAILY Cholecalciferol [Vitamin D3 (125 Mcg = 5000 Iu)] 125 mcg PO DAILY Cyanocobalamin (Vitamin B-12) [Vitamin B-12] 2,000 mcg PO DAILY HYDROcodone/APAP 10-325MG [[place] 10-325] 1 tab PO Q6H PRN PRN Reason: Pain Apixaban [Eliquis] 5 mg PO BID Albuterol Inhaler [Ventolin Hfa Inhaler] 2 puff INHALATION RT-Q6H PRN PRN Reason: Shortness Of Breath Furosemide [Lasix] 30 mg PO DAILY Ubidecarenone [Co Q-10] 200 mg PO DAILY Montelukast [Singulair] 10 mg PO HS Gabapentin 600 mg PO TID Ferrous Sulfate [Iron (65 MG Elemental)] 325 mg PO W/LUNCH #60 tab Ascorbic Acid [Vitamin C] 250 mg PO DAILY #60 tab Amiodarone [Cordarone] 200 mg PO BID amLODIPine [Norvasc] 5 mg PO BID Insulin Glargine-Yfgn [Semglee (Yfgn) Pen] 30 units SQ HS Discharge Medication List Atorvastatin [Lipitor] 40 mg PO HS 03/23/16 [History] DULoxetine HCL [Cymbalta] 60 mg PO HS 03/23/16 [History] Metoprolol Tartrate [Lopressor] 50 mg PO BID 03/23/16 [History] Omeprazole [PriLOSEC] 20 mg PO DAILY 03/23/16 [History] Montelukast [Singulair] 10 mg PO HS 05/18/21 [History] Ubidecarenone [Co Q-10] 200 mg PO DAILY 05/18/21 [History] Gabapentin 600 mg PO TID 06/29/21 [History] Budesonide-Formot 160-4.5 Mcg [Symbicort 160-4.5 Mcg Inhaler] 2 puff INHALATION RT-BID 04/06/22 [History] Biotin [Biotin Disolve] 10,000 mcg PO DAILY 09/03/22 [History] Letrozole [Femara] 2.5 mg PO DAILY 09/03/22 [History] Apixaban [Eliquis] 5 mg PO BID 09/06/22 [History] Cholecalciferol [Vitamin D3 (125 Mcg = 5000 Iu)] 125 mcg PO DAILY 09/06/22 [History] Cyanocobalamin (Vitamin B-12) [Vitamin B-12] 2,000 mcg PO DAILY 09/06/22 [History] HYDROcodone/APAP 10-325MG [[place] 10-325] 1 tab PO Q6H PRN 09/06/22 [History] Ascorbic Acid [Vitamin C] 250 mg PO DAILY #60 tab 09/09/22 [Rx] Ferrous Sulfate [Iron (65 MG Elemental)] 325 mg PO W/LUNCH #60 tab 09/09/22 [Rx] Albuterol Inhaler [Ventolin Hfa Inhaler] 2 puff INHALATION RT-Q6H PRN 11/10/22 [History] Amiodarone [Cordarone] 200 mg PO BID 11/10/22 [History] Furosemide [Lasix] 30 mg PO DAILY 11/10/22 [History] Insulin Glargine-Yfgn [Semglee (Yfgn) Pen] 30 units SQ HS 11/10/22 [History] amLODIPine [Norvasc] 5 mg PO BID 11/10/22 [History] Ondansetron Odt [Zofran Odt] 4 mg PO Q8HR PRN #30 tab 11/11/22 [Rx] Vancomycin 125 mg PO QID 9 Days #36 cap 11/11/22 [Rx] Follow up Appointment(s)/Referral(s): Teja Lozano MD [Primary Care Provider] - 1-2 days Patient Instructions/Handouts: Diet for Stomach Ulcers and Gastritis (GEN), C. Diff (Clostridioides Difficile) Infection (DC) Activity/Diet/Wound Care/Special Instructions: Activity: As tolerated. Take breaks as needed. Diet: Start out with SANJEEV diet, such as bananna's, rice, applesauce and toast. Thomas foods will be tolerated better. As discussed recommend probiotics with Yogurt to help build back some healthy gut bacteria. Once diarrhea has improved, you may resume your heart healthy and carb consistent diet. Continue to avoid salts, or foods with hidden salts such as canned or boxed foods and frozen dinners. Extra salt makes your heart work harder and traps the fluid in your body for longer. Special Instructions: Take all of your medications as directed and remember to keep all of your doctor's appointments and follow-up as needed. As discussed, you may resume your Lasix once you have had improvement in frequency and consistency with her diarrhea. No need to further dehydrate herself with a diuretic when you're having such frequent episodes of diarrhea. Once diarrhea has improved you may resume your Lasix. During time your holding her Lasix make sure to weigh yourself daily if you notice a significant increase in the swelling of your legs or U cane more than 3 pounds overnight or 5 pounds in a week you may need to resume your Lasix sooner. It is important to follow- up with your PCP, Dr. Lozano in 2-3 days from discharge. He can also monitor this closely. Also, it is important to monitor blood glucose levels closely at any time you are feeling under the weather or having decreased oral intake, vomiting, or diarrhea as these episodes could result in a hypoglycemic events. Thank you for allowing us to participate in your care, it was truly a pleasure having you for our patient!!! Discharge Disposition: HOME SELF-CARE
[2022-11-12 12:05] LABS: Glucose,Whole Blood 92 mg/dL (70-110)
[2022-11-12] MEDS: FERROUS SULFATE 325 MG TAB PO SCH (12:15)
== END 2022-11-12 13:46 | disposition home or self-care (01) ==
LOC: EC 09:01 → 6NMEDSUR 15:34
PROVIDERS: ADMIT Student in an Organized Health Care Education/Training Program; ATTEND Student in an Organized Health Care Education/Training Program
DX: A04.72 Enterocolitis due to Clostridium difficile, not specified as recurrent (principal); E86.0 Dehydration; R74.01 Elevation of levels of liver transaminase levels; J44.9 Chronic obstructive pulmonary disease, unspecified; Z99.81 Dependence on supplemental oxygen; J96.11 Chronic respiratory failure with hypoxia; I48.0 Paroxysmal atrial fibrillation; Z79.01 Long term (current) use of anticoagulants; Z79.899 Other long term (current) drug therapy; I25.10 Atherosclerotic heart disease of native coronary artery without angina pectoris; Z95.1 Presence of aortocoronary bypass graft; I10 Essential (primary) hypertension; E78.5 Hyperlipidemia, unspecified; E11.9 Type 2 diabetes mellitus without complications; F32.A Depression, unspecified; F41.9 Anxiety disorder, unspecified; Z79.4 Long term (current) use of insulin; Z86.12 Personal history of poliomyelitis; G62.9 Polyneuropathy, unspecified; Z20.822 Contact with and (suspected) exposure to COVID-19; K21.9 Gastro-esophageal reflux disease without esophagitis; Z16.24 Resistance to multiple antibiotics; Z90.49 Acquired absence of other specified parts of digestive tract; Z79.811 Long term (current) use of aromatase inhibitors; Z79.51 Long term (current) use of inhaled steroids; Z88.5 Allergy status to narcotic agent; Z88.2 Allergy status to sulfonamides; Z88.1 Allergy status to other antibiotic agents; Z88.8 Allergy status to other drugs, medicaments and biological substances; Z80.9 Family history of malignant neoplasm, unspecified
CPT/HCPCS: 96361 ×2; 96374; 99285; 36415; 94760; 93005; 83880; 80053 ×2; 82150; 83605; 83690; 83735; 85025; 85027; 81001; 87040; 87324; 87636; 71046; G0378 ×3; J2405

== ENCOUNTER 2022-11-17 13:49 | Inpatient (IN) | payer OTHER ==
[2022-11-17 15:55] LABS: Anisocytosis Moderate; Basophils % (A) 0 %; Eosinophils # (A) 0.2 k/uL (0-0.7); Eosinophils % (A) 3 %; HGB 11.1 gm/dL (11.4-16.0); Hypochromasia Marked; Lymphocytes # (A) 0.9 k/uL (1.0-4.8); Lymphocytes % (A) 12 %; MCH 27.7 pg (25.0-35.0); MCHC 31.6 g/dL (31.0-37.0); MCV 87.6 fL (80.0-100.0); Mean Platelet Volume 9.4; Microcytosis Slight; Monocytes # (A) 0.6 k/uL (0-1.0); Monocytes % (A) 8 %; Neutrophils # (A) 5.4 k/uL (1.3-7.7); Neutrophils % (A) 75 %; Platelet Count 167 k/uL (150-450); RBC 3.99 m/uL (3.80-5.40); RDW 21.4 % (11.5-15.5); WBC 7.2 k/uL (3.8-10.6)
[2022-11-17 16:01] LABS: INR 1.3 (<1.2); Partial Thromboplastin Time 29.2 sec (22.0-30.0); Prothrombin Time 13.2 sec (9.0-12.0)
--- NOTE | 2022-11-17 16:03 | ED ---
General Adult HPI - General Chief complaint: Shortness of Breath Stated complaint: SOB Time Seen by Provider: 11/17/22 14:10 Source: patient, EMS, RN notes reviewed, old records reviewed Mode of arrival: EMS Limitations: no limitations - History of Present Illness Initial comments: This is a 67-year-old female with past medical history significant for COPD and congestive heart.. Patient states she was just recently treated for C. diff. Patient states she was released from the hospital a few days ago. Patient states her difficulty breathing beginning progressively worse over the last 2 weeks and part of that time she was already in the hospital. Patient states she was at staff noted that she was having a difficult time breathing but they disc harged 3 days ago. Patient states since that time she has had a heart attack breathing. Patient states she followed up with a primary medical care doctor today and he center by EMS to the hospital to be admitted. Patient denies any chest pain or palpitations. Patient denies any fever chills or cough per patient denies abdominal pain. Patient denies any headache patient denies numbness weakness. Patient denies any swelling to the legs or calf tenderness. - Related Data Home Medications Medication Instructions Recorded Confirmed Atorvastatin [Lipitor] 40 mg PO HS 03/23/16 11/17/22 DULoxetine HCL [Cymbalta] 60 mg PO HS 03/23/16 11/17/22 Metoprolol Tartrate [Lopressor] 50 mg PO BID 03/23/16 11/17/22 Omeprazole [PriLOSEC] 20 mg PO DAILY 03/23/16 11/17/22 Montelukast [Singulair] 10 mg PO HS 05/18/21 11/17/22 Ubidecarenone [Co Q-10] 200 mg PO DAILY 05/18/21 11/17/22 Gabapentin 600 mg PO TID 06/29/21 11/17/22 Budesonide-Formot 160-4.5 Mcg 2 puff INHALATION RT-BID 04/06/22 11/17/22 [Symbicort 160-4.5 Mcg Inhaler] Biotin [Biotin Disolve] 10,000 mcg PO DAILY 09/03/22 11/17/22 Letrozole [Femara] 2.5 mg PO DAILY 09/03/22 11/17/22 Apixaban [Eliquis] 5 mg PO BID 09/06/22 11/17/22 Cholecalciferol [Vitamin D3 (125 125 mcg PO DAILY 09/06/22 11/17/22 Mcg = 5000 Iu)] Cyanocobalamin (Vitamin B-12) 2,000 mcg PO DAILY 09/06/22 11/17/22 [Vitamin B-12] HYDROcodone/APAP 10-325MG [Page 1 tab PO Q6H PRN 09/06/22 11/17/22 10-325] Albuterol Inhaler [Ventolin Hfa 2 puff INHALATION RT-Q6H PRN 11/10/22 11/17/22 Inhaler] Amiodarone [Cordarone] 200 mg PO BID 11/10/22 11/17/22 Furosemide [Lasix] 30 mg PO DAILY 11/10/22 11/17/22 Insulin Glargine-Yfgn [Semglee 30 units SQ HS 11/10/22 11/17/22 (Yfgn) Pen] amLODIPine [Norvasc] 5 mg PO BID 11/10/22 11/17/22 Previous Rx's Medication Instructions Recorded Ascorbic Acid [Vitamin C] 250 mg PO DAILY #60 tab 09/09/22 Ferrous Sulfate [Iron (65 MG 325 mg PO W/LUNCH #60 tab 09/09/22 Elemental)] Ondansetron Odt [Zofran Odt] 4 mg PO Q8HR PRN #30 tab 11/11/22 Vancomycin 125 mg PO QID 9 Days #36 cap 11/11/22 Allergies Allergy/AdvReac Type Severity Reaction Status Date / Time morphine Allergy rash,itchin Verified 11/17/22 14:26 g Sulfa (Sulfonamide Allergy Rash/Hives Verified 11/17/22 14:26 Antibiotics) amoxicillin [From Augmentin] AdvReac Diarrhea Verified 11/17/22 14:26 clavulanic acid AdvReac Diarrhea Verified 11/17/22 14:26 [From Augmentin] surgical susy AdvReac Unknown Uncoded 11/17/22 14:00 Review of Systems ROS Statement: Those systems with pertinent positive or pertinent negative responses have been documented in the HPI. ROS Other: All systems not noted in ROS Statement are negative. Past Medical History Past Medical History: Atrial Fibrillation, Coronary Artery Disease (CAD), Cancer, COPD, Diabetes Mellitus, GERD/Reflux, Hyperlipidemia Additional Past Medical History / Comment(s): post polio syndrome rt side, neuropathy, hx. spontaneous pneumothorax, bowel resection for sepsis/infection,cut on toe History of Any Multi-Drug Resistant Organisms: ESBL Date of last positivie culture/infection: 06/29/21 MDRO Source:: ESBL BACK Past Surgical History: Back Surgery, Bowel Resection, Breast Surgery, Cholecystectomy, Coronary Bypass/CABG, Ear Surgery, Tonsillectomy Additional Past Surgical History / Comment(s): triple bypass 2013, left salpingo-oophorectomy, laminectomy L4 L5x3, ear surgery x 3 Past Anesthesia/Blood Transfusion Reactions: No Reported Reaction Past Psychological History: Anxiety, Depression Smoking Status: Former smoker Past Alcohol Use History: Occasional Past Drug Use History: None Reported - Past Family History Mother Family Medical History: Cancer General Exam - General Exam Comments Initial Comments: GENERAL: Patient is well-developed and well-nourished. Patient is nontoxic and well-hydr ated and is in mild distress. ENT: Neck is soft and supple. No significant lymphadenopathy is noted. Oropharynx is clear. Moist mucous membranes. Neck has full range of motion without eliciting any pain. EYES: The sclera were anicteric and conjunctiva were pink and moist. Extraocular movements were intact and pupils were equal round and reactive to light. Eyelids were unremarkable. PULMONARY: Unlabored respirations. Good breath sounds bilaterally. No audible rales rhonchi or wheezing was noted. CARDIOVASCULAR: There is a regular rate and rhythm without any murmurs gallops or rubs. ABDOMEN: Soft and nontender with normal bowel sounds. SKIN: Skin is clear with no lesions or rashes and otherwise unremarkable. NEUROLOGIC: Patient is alert and oriented x3. Cranial nerves II through XII are grossly intact. Motor and sensory are also intact. Normal speech, volume and content. Symmetrical smile. MUSCULOSKELETAL: Normal extremities with adequate strength and full range of motion. LYMPHATICS: No significant lymphadenopathy is noted PSYCHIATRIC: Normal psychiatric evaluation. Limitations: no limitations Course Vital Signs 11/17/22 11/17/22 11/17/22 14:00 14:02 15:43 Temperature 97.9 F Pulse Rate 61 59 L Respiratory 20 20 19 Rate Blood Pressure 114/52 116/54 O2 Sat by Pulse 90 L 89 L Oximetry 11/17/22 11/17/22 11/17/22 17:05 18:17 19:05 Temperature 97.9 F Pulse Rate 58 L 59 L 57 L Respiratory 19 19 19 Rate Blood Pressure 115/66 121/56 120/52 O2 Sat by Pulse 90 L 90 L 90 L Oximetry 11/17/22 19:44 Temperature 97.4 F L Pulse Rate 63 Respiratory 22 Rate Blood Pressure 125/51 O2 Sat by Pulse 91 L Oximetry Medical Decision Making - Medical Decision Making EKG is interpreted by myself EKG shows a sinus bradycardia 59 bpm NM interval 179 QRS on a 49 QT interval is 590 QTC is 508. Patient's EKG shows a right bundle branch block. Was pt. sent in by a medical professional or institution (, PA, CRINKLING MACHINE OPERATOR, urgent care, hospital, or senior care...) When possible be specific @ -Patient was sent in by her primary medical care doctor Did you speak to anyone other than the patient for history (EMS, parent, family, police, friend...)? What history was obtained from this source @ -No Did you review nursing and triage notes (agree or disagree)? Why? @ -I reviewed and agree with nursing and triage notes Were old charts reviewed (outside hosp., previous admission, EMS record, old EKG, old radiological studies, urgent care reports/EKG's, senior care records)? Report findings @ -I Reviewed prior lab work prior ER visits prior hospital visits and radiological studies Differential Diagnosis (chest pain, altered mental status, abdominal pain women, abdominal pain men, vaginal bleeding, weakness, fever, dyspnea, syncope, headache, dizziness, GI bleed, back pain, seizure, CVA, palpatations, mental health, musculoskeletal)? @ -Differential Dyspnea: Coronary syndrome, arrhythmia, tamponade, asthma, COPD, pulmonary embolism, pneumonia, pneumothorax, pulmonary effusion, anaphylaxis, diabetic ketoacidosis, flailed chest, pulmonary contusion, diaphragmatic rupture, anemia, neuromuscular, this is not meant to be an all-inclusive list. EKG interpreted by me (3pts min.). @ -As above X-rays interpreted by me (1pt min.). @ -Chest x-ray shows pulmonary edema and a larger right-sided pleural effusion CT interpreted by me (1pt min.). @ -None done U/S interpreted by me (1pt. min.). @ -None done What testing was considered but not performed or refused? (CT, X-rays, U/S, labs)? Why? @ -None What meds were considered but not given or refused? Why? @ -None Did you discuss the management of the patient with other professionals (professionals i.e. , PA, CRINKLING MACHINE OPERATOR, lab, RT, psych nurse, social work lecturer, echo tech, teacher, armor officer, case management coordinator)? Give summary @ -I spoke with some physicians agreed to admit the patient I admitted the patient Was smoking cessation discussed for >3mins.? @ -No Was critical care preformed (if so, how long)? @ -35 minutes Were there social determinants of health that impacted care today? How? (Homelessness, low income, unemployed, alcoholism, drug addiction, transpo rtation, low edu. Level, literacy, decrease access to med. care, long-term, rehab)? @ -No Was there de-escalation of care discussed even if they declined (Discuss DNR or withdrawal of care, Hospice)? DNR status @ -No What co-morbidities impacted this encounter? (DM, HTN, Smoking, COPD, CAD, Cancer, CVA, ARF, Chemo, Hep., AIDS, mental health diagnosis, sleep apnea, morbid obesity)? @ -None Was patient admitted / discharged? Hospital course, mention meds given and route, prescriptions, significant lab abnormalities, going to OR and other pertinent info. @ -Patient's x-ray indicated pulmonary edema I started the patient on Lasix I spoke with some physicians he agreed to admit I wrote admitting orders I consulted cardiology continued Lasix on the floor. Patient was oxygenating between 84 and 86% on arrival even on 4 L. When I admitted the patient she was actually about 90% on 4 L Undiagnosed new problem with uncertain prognosis? @ -No Drug Therapy requiring intensive monitoring for toxicity (Heparin, Nitro, Insulin, Cardizem)? @ -No Were any procedures done? @ -No Diagnosis/symptom? @ -Acute pulmonary edema Acute, or Chronic, or Acute on Chronic? @ -Acute Uncomplicated (without systemic symptoms) or Complicated (systemic symptoms)? @ -Complicated Side effects of treatment? @ -No Exacerbation, Progression, or Severe Exacerbation? @ -No Poses a threat to life or bodily function? How? (Chest pain, [place], [place], pneumonia, PE, COPD, DKA, ARF, appy, cholecystitis, CVA, Diverticulitis, Homicidal, Suicidal, threat to staff... and all critical care pts) @ -No - Lab Data Result diagrams: 11/17/22 15:32 11/17/22 15:32 Lab Results 11/17/22 11/17/22 11/17/22 Range/Units 15:32 15:32 15:32 WBC 7.2 (3.8-10.6) k/uL RBC 3.99 (3.80-5.40) m/uL Hgb 11.1 L (11.4-16.0) gm/dL Hct 35.0 (34.0-46.0) % MCV 87.6 (80.0-100.0) fL MCH 27.7 (25.0-35.0) pg MCHC 31.6 (31.0-37.0) g/dL RDW 21.4 H (11.5-15.5) % Plt Count 167 (150-450) k/uL MPV 9.4 Neutrophils % 75 % Lymphocytes % 12 % Monocytes % 8 % Eosinophils % 3 % Basophils % 0 % Neutrophils # 5.4 (1.3-7.7) k/uL Lymphocytes # 0.9 L (1.0-4.8) k/uL Monocytes # 0.6 (0-1.0) k/uL Eosinophils # 0.2 (0-0.7) k/uL Basophils # 0.0 (0-0.2) k/uL Hypochromasia Marked Anisocytosis Moderate Microcytosis Slight PT 13.2 H (9.0-12.0) sec INR 1.3 H (<1.2) APTT 29.2 (22.0-30.0) sec Sodium 139 (137-145) mmol/L Potassium 3.8 (3.5-5.1) mmol/L Chloride 107 (98-107) mmol/L Carbon Dioxide 27 (22-30) mmol/L Anion Gap 5 mmol/L BUN 12 (7-17) mg/dL Creatinine 0.77 (0.52-1.04) mg/dL Est GFR (CKD-EPI)AfAm >90 (>60 ml/min/1.73 sqM) Est GFR (CKD-EPI)NonAf 79 (>60 ml/min/1.73 sqM) Glucose 115 H (74-99) mg/dL Plasma Lactic Acid [place] (0.7-2.0) mmol/L Calcium 8.7 (8.4-10.2) mg/dL Magnesium 1.7 (1.6-2.3) mg/dL Total Bilirubin 0.6 (0.2-1.3) mg/dL AST 71 H (14-36) U/L ALT 34 (4-34) U/L Alkaline Phosphatase 132 H (38-126) U/L Troponin I (0.000-0.034) ng/mL NT-Pro-B Natriuret Pep 1490 pg/mL Total Protein 5.7 L (6.3-8.2) g/dL Albumin 2.9 L (3.5-5.0) g/dL 11/17/22 11/17/22 Range/Units 15:32 15:32 WBC (3.8-10.6) k/uL RBC (3.80-5.40) m/uL Hgb (11.4-16.0) gm/dL Hct (34.0-46.0) % MCV (80.0-100.0) fL MCH (25.0-35.0) pg MCHC (31.0-37.0) g/dL RDW (11.5-15.5) % Plt Count (150-450) k/uL MPV Neutrophils % % Lymphocytes % % Monocytes % % Eosinophils % % Basophils % % Neutrophils # (1.3-7.7) k/uL Lymphocytes # (1.0-4.8) k/uL Monocytes # (0-1.0) k/uL Eosinophils # (0-0.7) k/uL Basophils # (0-0.2) k/uL Hypochromasia Anisocytosis Microcytosis PT (9.0-12.0) sec INR (<1.2) APTT (22.0-30.0) sec Sodium (137-145) mmol/L Potassium (3.5-5.1) mmol/L Chloride (98-107) mmol/L Carbon Dioxide (22-30) mmol/L Anion Gap mmol/L BUN (7-17) mg/dL Creatinine (0.52-1.04) mg/dL Est GFR (CKD-EPI)AfAm (>60 ml/min/1.73 sqM) Est GFR (CKD-EPI)NonAf (>60 ml/min/1.73 sqM) Glucose (74-99) mg/dL Plasma Lactic Acid [place] 1.3 (0.7-2.0) mmol/L Calcium (8.4-10.2) mg/dL Magnesium (1.6-2.3) mg/dL Total Bilirubin (0.2-1.3) mg/dL AST (14-36) U/L ALT (4-34) U/L Alkaline Phosphatase (38-126) U/L Troponin I <0.012 (0.000-0.034) ng/mL NT-Pro-B Natriuret Pep pg/mL Total Protein (6.3-8.2) g/dL Albumin (3.5-5.0) g/dL Critical Care Time Critical Care Time: Yes Total Critical Care Time: 35 Disposition Clinical Impression: Acute pulmonary edema, Hypoxia Disposition: ADMITTED IP TO THIS HOSP Referrals: Teja Lozano MD [Primary Care Provider] - 1-2 days
[2022-11-17 16:07] LABS: ALT 34 U/L (4-34); AST 71 U/L (14-36); African American GFR (CKD) >90 (>60 ml/min/1.73 sqM); Albumin 2.9 g/dL (3.5-5.0); Alkaline Phosphatase 132 U/L (38-126); Anion Gap 5 mmol/L; Blood Urea Nitrogen 12 mg/dL (7-17); Calcium 8.7 mg/dL (8.4-10.2); Carbon Dioxide 27 mmol/L (22-30); Chloride 107 mmol/L (98-107); Glucose 115 mg/dL (74-99); Magnesium 1.7 mg/dL (1.6-2.3); Non-African American GFR(CKD) 79 (>60 ml/min/1.73 sqM); Potassium 3.8 mmol/L (3.5-5.1); Sodium 139 mmol/L (137-145); Total Bilirubin 0.6 mg/dL (0.2-1.3); Total Protein 5.7 g/dL (6.3-8.2)
[2022-11-17 16:15] LABS: NT-Pro-B-Type Natriuretic Pept 1490 pg/mL
--- NOTE | 2022-11-17 16:42 | XR ---
EXAMINATION TYPE: XR chest 2V DATE OF EXAM: 11/17/2022 COMPARISON: 11/10/2022 INDICATION: Difficulty in breathing TECHNIQUE: Frontal and lateral views of the chest are obtained. FINDINGS: The heart size is normal. The pulmonary vasculature is prominent. There is a moderate right pleural effusion. Minimal left pleural effusion is present. Sternotomy wire s are in the midline. Stimulator leads are within the spinal canal. IMPRESSION: 1. Moderate right and minimal left pleural effusion. 2. Prominent pulmonary vascular markings. Correlate for volume overload
[2022-11-17] MEDS ORDERED: FUROSEMIDE 10 MG/ML 10 ML VIAL IV STA (19:28)
[2022-11-17] MEDS ORDERED: HYDROcodone/APAP 10-325MG 1 EACH TAB PO ONE (21:57)
--- NOTE | 2022-11-17 23:41 | P.HPIM ---
History of Present Illness H&P Date: 11/17/22 Patient is a 58-year-old female with a PMH of COPD with chronic hypoxic respiratory failure on 2 L is a cannula oxygen at home, CAD status post CABG, A. fib on Eliquis, type II DM, hypertension, and hyperlipidemia who presents to the emergency room with complaints of gradually worsening shortness of breath and lower extremity edema. The patient reports that her symptoms have been gradually worsening over the past 1 week. Of note, the patient was recently discharged from the hospital on 11/12 when she was hospitalized for a C. diff infection. The patient denied experiencing chest discomfort, nausea, vomiting, diaphoresis, fever, chills. In the emergency room, chest x-ray revealed a moderate right and minimal left- sided pleural effusion with findings consistent for volume overload. EKG r evealed sinus bradycardia at 59 bpm with right bundle branch block as reviewed by me. Laboratory evaluation was remarkable for troponin less than 0.012, proBNP 1490. The patient's SpO2 in the emergency room upon arrival was 91% on 4 L is a cannula oxygen. ED documentation reviewed and case discussed with ED provider. Review of systems: Pertinent positives and negatives as discussed in HPI, a complete review of systems was performed and all other systems are negative. Physical examination: Vital signs reviewed General: non toxic, no distress, appears at stated age, obese Derm: no unusual rashes/lesions, warm Head: atraumatic, normocephalic, symmetric Eyes: EOMI, no lid lag, anicteric sclera, pupils equal round reactive to light ENT: Nose and ears atraumatic Neck: No cervical lymphadenopathy, trachea midline, supple Mouth: no lip lesion, mucus membranes moist Cardiovascular: S1S2 reg, no murmur, positive dorsalis pedis pulse bilateral, 1+ bilateral lower extremity pitting edema Lungs: Scattered coarse breath sounds with bibasilar rales, no accessory muscle use Abdominal: soft, nontender to palpation, no guarding Ext: muscle strength 4 out of 5 in all 4 extremities grossly, no gross muscle atrophy, no contractures, Neuro: CN II-XI grossly intact, no gross focal neuro deficits Psych: Alert, oriented, appropriate affect Assessment: Acute on chronic hypoxic respiratory failure in setting of suspected congestive heart failure Advanced chronic COPD Chronic conditions: A. fib, type II DM, hypertension, hyperlipidemia, CAD Imaging: Chest x-ray revealed a moderate right and minimal left-sided pleural effusion with findings consistent for volume overload. EKG revealed sinus bradycardia at 59 bpm with right bundle branch block as reviewed by me. Data Review: Laboratory evaluation was remarkable for troponin less than 0.012, proBNP 1490. Plan: Continue with Lasix 40 mg every 12 hourly Supplemental oxygen Previous echocardiogram from 09/07 revealed mild LVH Cardiology consulted Cardiac monitoring Intake and output Daily weights Continue with home medications including vancomycin to finish 10 days of C. diff treatment DVT prophylaxis: Eliquis The patient is admitted with an anticipated greater than 2 midnight stay for evaluation of CHF exacerbation CODE STATUS: Full Code Discussed with: Patient Anticipated discharge place: Home Past Medical History Past Medical History: Atrial Fibrillation, Coronary Artery Disease (CAD), Cancer, COPD, Diabetes Mellitus, GERD/Reflux, Hyperlipidemia Additional Past Medical History / Comment(s): post polio syndrome rt side, neuropathy, hx. spontaneous pneumothorax, bowel resection for sepsis/infection, cut on toe History of Any Multi-Drug Resistant Organisms: ESBL Date of last positivie culture/infection: 06/29/21 MDRO Source:: ESBL BACK Past Surgical History: Back Surgery, Bowel Resection, Breast Surgery, Cholecystectomy, Coronary Bypass/CABG, Ear Surgery, Tonsillectomy Additional Past Surgical History / Comment(s): triple bypass 2014, left salpingo-oophorectomy, laminectomy L4 L5x3, ear surgery x 3 Past Anesthesia/Blood Transfusion Reactions: No Reported Reaction Past Psychological History: Anxiety, Depression Smoking Status: Former smoker Past Alcohol Use History: Occasional Past Drug Use History: None Reported - Past Family History Mother Family Medical History: Cancer Medications and Allergies Home Medications Medication Instructions Recorded Confirmed Type Atorvastatin [Lipitor] 40 mg PO HS 03/23/16 11/17/22 History DULoxetine HCL [Cymbalta] 60 mg PO HS 03/23/16 11/17/22 History Metoprolol Tartrate [Lopressor] 50 mg PO BID 03/23/16 11/17/22 History Omeprazole [PriLOSEC] 20 mg PO DAILY 03/23/16 11/17/22 History Montelukast [Singulair] 10 mg PO HS 05/18/21 11/17/22 History Ubidecarenone [Co Q-10] 200 mg PO DAILY 05/18/21 11/17/22 History Gabapentin 600 mg PO TID 06/29/21 11/17/22 History Budesonide-Formot 160-4.5 Mcg 2 puff INHALATION RT-BID 04/06/22 11/17/22 History [Symbicort 160-4.5 Mcg Inhaler] Biotin [Biotin Disolve] 10,000 mcg PO DAILY 09/03/22 11/17/22 History Letrozole [Femara] 2.5 mg PO DAILY 09/03/22 11/17/22 History Apixaban [Eliquis] 5 mg PO BID 09/06/22 11/17/22 History Cholecalciferol [Vitamin D3 (125 125 mcg PO DAILY 09/06/22 11/17/22 History Mcg = 5000 Iu)] Cyanocobalamin (Vitamin B-12) 2,000 mcg PO DAILY 09/06/22 11/17/22 History [Vitamin B-12] HYDROcodone/APAP 10-325MG [[place] 1 tab PO Q6H PRN 09/06/22 11/17/22 History 10-325] Ascorbic Acid [Vitamin C] 250 mg PO DAILY #60 tab 09/09/22 11/17/22 Rx Ferrous Sulfate [Iron (65 MG 325 mg PO W/LUNCH #60 tab 09/09/22 11/17/22 Rx Elemental)] Albuterol Inhaler [Ventolin Hfa 2 puff INHALATION RT-Q6H PRN 11/10/22 11/17/22 History Inhaler] Amiodarone [Cordarone] 200 mg PO BID 11/10/22 11/17/22 History Furosemide [Lasix] 30 mg PO DAILY 11/10/22 11/17/22 History Insulin Glargine-Yfgn [Semglee 30 units SQ HS 11/10/22 11/17/22 History (Yfgn) Pen] amLODIPine [Norvasc] 5 mg PO BID 11/10/22 11/17/22 History Ondansetron Odt [Zofran Odt] 4 mg PO Q8HR PRN #30 tab 11/11/22 11/17/22 Rx Vancomycin 125 mg PO QID 9 Days #36 cap 11/11/22 11/17/22 Rx Allergies Allergy/AdvReac Type Severity Reaction Status Date / Time morphine Allergy rash,itchin Verified 11/17/22 14:26 g Sulfa (Sulfonamide Allergy Rash/Hives Verified 11/17/22 14:26 Antibiotics) amoxicillin [From Augmentin] AdvReac Diarrhea Verified 11/17/22 14:26 clavulanic acid AdvReac Diarrhea Verified 11/17/22 14:26 [From Augmentin] surgical susy AdvReac Unknown Uncoded 11/17/22 14:00 Physical Exam Vitals: Vital Signs Temp Pulse Resp BP Pulse Ox 11/17/22 23:02 97.6 F 62 20 115/54 92 L 11/17/22 22:04 62 20 115/44 92 L 11/17/22 21:15 64 22 122/57 94 L 11/17/22 20:25 63 17 116/90 87 L 11/17/22 19:44 97.4 F L 63 22 125/51 91 L 11/17/22 19:05 97.9 F 57 L 19 120/52 90 L 11/17/22 18:17 59 L 19 121/56 90 L 11/17/22 17:05 58 L 19 115/66 90 L 11/17/22 15:43 59 L 19 116/54 89 L 11/17/22 14:02 20 11/17/22 14:00 97.9 F 61 20 114/52 90 L Intake and Output 11/17/22 11/17/22 11/18/22 14:59 22:59 06:59 Other: Weight 90.718 kg Results CBC & Chem 7: 11/17/22 15:32 11/17/22 15:32 Labs: Abnormal Lab Results - Last 24 Hours (Table) 11/17/22 11/17/22 11/17/22 Range/Units 15:32 15:32 15:32 Hgb 11.1 L (11.4-16.0) gm/dL RDW 21.4 H (11.5-15.5) % Lymphocytes # 0.9 L (1.0-4.8) k/uL PT 13.2 H (9.0-12.0) sec INR 1.3 H (<1.2) Glucose 115 H (74-99) mg/dL AST 71 H (14-36) U/L Alkaline Phosphatase 132 H (38-126) U/L Total Protein 5.7 L (6.3-8.2) g/dL Albumin 2.9 L (3.5-5.0) g/dL
[2022-11-18] MEDS: VANCOMYCIN 125 MG CAPSULE PO SCH ×5 (00:38→23:36)
[2022-11-18] MEDS ORDERED: GABAPENTIN 300 MG CAP PO STA (01:54)
[2022-11-18] MEDS: DULoxetine HCL 60 MG CAPSULE.DR PO SCH ×3 (02:01→21:14)
[2022-11-18 07:04] LABS: Anisocytosis Moderate; Hypochromasia Marked; MCH 27.2 pg (25.0-35.0); MCHC 30.4 g/dL (31.0-37.0); MCV 89.2 fL (80.0-100.0); Mean Platelet Volume 9.2; Microcytosis Slight; Platelet Count 148 k/uL (150-450); RBC 4.03 m/uL (3.80-5.40); RDW 21.4 % (11.5-15.5); WBC 5.8 k/uL (3.8-10.6)
[2022-11-18 07:24] LABS: African American GFR (CKD) 86 (>60 ml/min/1.73 sqM); Anion Gap 7 mmol/L; Blood Urea Nitrogen 12 mg/dL (7-17); Calcium 8.8 mg/dL (8.4-10.2); Carbon Dioxide 25 mmol/L (22-30); Chloride 107 mmol/L (98-107); Glucose 94 mg/dL (74-99); Non-African American GFR(CKD) 75 (>60 ml/min/1.73 sqM); Potassium 3.7 mmol/L (3.5-5.1); Sodium 139 mmol/L (137-145)
[2022-11-18] MEDS: SYMBICORT 160-4.5 MCG INHALER INHALATION SCH (08:31)
[2022-11-18] MEDS ORDERED: FUROSEMIDE 10 MG/ML 4 ML VIAL IV SCH ×2 (09:00)
--- NOTE | 2022-11-18 09:46 | CONS ---
CONSULTATION CHIEF COMPLAINT: Shortness of breath. HISTORY OF PRESENT ILLNESS: Shelby is a 67-year-old lady who is being admitted to hospital with shortness of breath. She has history of COPD on home O2, coronary artery disease status post bypass surgery, atrial fibrillation, type 2 diabetes, hypertension, and dyslipidemia. She presented to hospital complaining of progressively worsening shortness of breath and lower extremity edema. The symptoms have been getting worse over the last 1 week. The patient had recently been discharged from the hospital on November 12 following her admission with C. difficile infection. At the time of my evaluation in the emergency room, she denies any chest pain, but her predominant symptom is in the form of shortness of breath. A chest x-ray revealed moderate right pleural effusion. An EKG revealed sinus bradycardia with right bundle branch block. Her BNP is elevated at 1490. Troponins have been negative. An EKG on this admission revealed sinus bradycardia with right bundle branch block. An echocardiogram in August of this year revealed normal LV systolic function. Moderate pulmonary hypertension. Left atrial enlargement. PAST MEDICAL HISTORY: Significant for hypertension, insulin-requiring diabetes, paroxysmal atrial fibrillation, COPD, congestive heart failure, coronary artery disease status post bypass. MEDICATIONS: Medications at home included, 1. Norvasc 5 b.i.d. 2. Prilosec. 3. Lopressor 50 b.i.d. 4. Insulin. 5. Lasix 30 mg daily. 6. Biotin. 7. Ascorbic acid. 8. Eliquis. 9. Amiodarone 200 b.i.d. 10.Lipitor and albuterol inhaler. ALLERGIES: Morphine, sulfa, amoxicillin. FAMILY HISTORY: Negative for premature coronary artery disease. SOCIAL HISTORY: Negative for smoking, EtOH abuse or drug abuse. REVIEW OF SYSTEMS: HEENT: Unremarkable. CARDIAC: As described above. RESPIRATORY: As described above. GI: Negative. GENITOURINARY: Negative. ALLERGY/IMMUNOLOGY: Negative. SKIN: Negative. MUSCULOSKELETAL: Significant for arthritis. PSYCHOSOCIAL: Negative. DERM: Negative. CONSTITUTIONAL: Negative. ONCOLOGICAL: Negative. CHAIRPERSON ANESTHESIOLOGY: Negative. Rest of the system review is not relevant. PHYSICAL EXAMINATION: VITAL SIGNS: Heart rate is 60 beats per minute, blood pressure is 112/46, respiratory rate is 18, O2 saturation is 87% on 4 L. NECK: There is no jugular venous distention. Carotid upstroke is diminished. There is no bruit. CHEST: Reveals diminished air entry at the right base. HEART: Reveals first and second heart sounds. No gallop. She has a systolic murmur at the left lower sternal border. ABDOMEN: Soft. EXTREMITIES: Exam of extremities revealed mild edema bilaterally. LABORATORY DATA: Labs showed hemoglobin of 11. Potassium is 3.7, creatinine is 0.8. Troponin is negative. BNP is 1490. ASSESSMENT AND PLAN: 1. Acute exacerbation of chronic diastolic heart failure. 2. Coronary artery disease, status post coronary artery bypass graft. 3. Paroxysmal atrial fibrillation. 4. Right-sided pleural effusion. PLAN: I will treat the patient with Lasix 40 mg q.8 hours. Continue Lopressor. Continue Norvasc, amiodarone, and Eliquis that she is on. I will add an VONDA inhibitor. MMODL / IJN: [id number] /
[2022-11-18] MEDS: LETROZOLE 2.5 MG TAB PO SCH (10:13)
[2022-11-18] MEDS: APIXABAN 5 MG TAB PO SCH ×2 (10:14→21:14)
[2022-11-18] MEDS: AMIODARONE 200 MG TAB PO SCH ×2 (10:14→21:14)
[2022-11-18] MEDS: amLODIPine 5 MG TAB PO SCH ×2 (10:14→21:14)
[2022-11-18] MEDS: GABAPENTIN 300 MG CAP PO SCH ×3 (10:14→21:13)
[2022-11-18] MEDS: FUROSEMIDE 10 MG/ML 4 ML VIAL IV SCH ×3 (10:14→23:24)
[2022-11-18] MEDS: METOPROLOL TARTRATE 50 MG TAB PO SCH ×2 (10:14→21:14)
[2022-11-18] MEDS: CHOLECALCIFEROL 125 MCG (5000 IU) TABLET PO SCH (10:14)
[2022-11-18] MEDS: FERROUS SULFATE 325 MG TAB PO SCH (13:07)
[2022-11-18] MEDS: LOSARTAN 25 MG TAB PO SCH (13:19)
[2022-11-18 16:33] LABS: Glucose,Whole Blood 104 mg/dL (70-110)
[2022-11-18 17:10] LABS: Appearance,Urine Clear (Clear); Bacteria,Urine Rare /hpf; Bilirubin,Urine Negative (Negative); Blood,Urine Negative (Negative); Color,Urine Light Yellow; Glucose,Urine (UA) Negative (Negative); Hyaline Casts,Urine 8 /lpf (0-2); Ketones,Urine Negative (Negative); Leukocyte Esterase,Urine Moderate (Negative); Mucus,Urine Rare /hpf; Nitrite,Urine Positive (Negative); Protein,Urine Negative (Negative); RBC,Urine 1 /hpf (0-5); Specific Gravity,Urine 1.008 (1.001-1.035); Squamous Epithelial Cell,Urine 1 /hpf (0-4); Urobilinogen,Urine <2.0 mg/dL (<2.0); WBC,Urine 6 /hpf (0-5)
[2022-11-18] MEDS ORDERED: IPRATROPIUM-ALBUTEROL 3 ML NEB INHALATION PRN (17:14)
--- NOTE | 2022-11-18 17:15 | P.PN ---
Subjective Progress Note Date: 11/18/22 Patient is a 58-year-old female with a PMH of COPD with chronic hypoxic respiratory failure on 2 L is a cannula oxygen at home, CAD status post CABG, A. fib on Eliquis, type II DM, hypertension, and hyperlipidemia who presents to the emergency room with complaints of gradually worsening shortness of breath and lower extremity edema. The patient reports that her symptoms have been gradually worsening over the past 1 week. Of note, the patient was recently discharged from the hospital on 11/12 when she was hospitalized for a C. diff infection. The patient denied experiencing chest discomfort, nausea, vomiting, diaphoresis, fever, chills. In the emergency room, chest x-ray revealed a moderate right and minimal left- sided pleural effusion with findings consistent for volume overload. EKG revealed sinus bradycardia at 59 bpm with right bundle branch block as reviewed by me. Laboratory evaluation was remarkable for troponin less than 0.012, proBNP 1490. The patient's SpO2 in the emergency room upon arrival was 91% on 4 L is a cannula oxygen. 11/18 Patient was seen and examined. No acute events overnight. Currently on 4L saturating low 90s. She reports 20% improvement in her breathing. Complains of incomplete bladder emptying. Currently on treatment for C. diff. Cardiology saw the patient and she is currently on Lasix 40 mg IV TID. CBC shows hemoglobin of 11 and platelet count 148. BMP is unremarkable. General: non toxic, no distress, appears at stated age, obese Derm: no unusual rashes/lesions, warm Head: atraumatic, normocephalic, symmetric Eyes: EOMI, no lid lag, anicteric sclera ENT: Nose and ears atraumatic Neck: No cervical lymphadenopathy, trachea midline, supple Cardiovascular: S1S2 reg, no murmur, 1+ bilateral lower extremity pitting edema Lungs: Scattered coarse breath sounds with bibasilar rales, no accessory muscle use Ext: muscle strength 4 out of 5 in all 4 extremities grossly, no gross muscle atrophy, no contractures, Neuro: no gross focal neuro deficits Psych: Alert, oriented, appropriate affect Assessment: Acute on chronic hypoxic respiratory failure in setting of suspected congestive heart failure Advanced chronic COPD C. difficile Chronic conditions: A. fib, type II DM, hypertension, hyperlipidemia, CAD Based on my assessment of this patient, this patient meets a high complexity level of care. Patient has a CHF with severe exacerbation or progression of disease which poses a threat to life or bodily function. Acute on chronic hypoxic respiratory failure in setting of suspected congestive heart failure: Lasix 40 mg IV TID. Cardiology on board. Daily BMP as lasix is nephrotoxic. Strict intake/outtake along with daily weights. Advanced chronic COPD: Consult pulmonary. DuoNeb scheduled and as needed for SOB/wheezing. C. difficile: Continue Vancomycin by mouth. I have reviewed the following sap business objects consultant notes: Cardiology note. I have reviewed the results of the following tests: CBC, BMP. I have ordered the following tests: BMP I have discussed the care of this patient with the following independent historian: I have independently interpreted the following test below: I have discussed the management of this patient with the following physician: Objective - Vital Signs Vital signs: Vital Signs Temp 98.1 F 11/18/22 16:51 Pulse 80 11/18/22 16:51 Resp 17 11/18/22 16:51 BP 122/56 11/18/22 16:51 Pulse Ox 92 L 11/18/22 16:51 FiO2 Intake & Output 11/17/22 11/18/22 11/18/22 18:59 06:59 18:59 Intake Total 120 Output Total 551 Balance -431 Weight 90.718 kg 90.718 kg Intake: Oral 120 Output: Urine 550 Stool 1 Other: Voiding Method External Catheter - Labs CBC & Chem 7: 11/18/22 06:15 11/18/22 06:15 Labs: Abnormal Lab Results - Last 24 Hours (Table) 11/18/22 11/18/22 Range/Units 06:15 16:42 Hgb 11.0 L (11.4-16.0) gm/dL MCHC 30.4 L (31.0-37.0) g/dL RDW 21.4 H (11.5-15.5) % Plt Count 148 L (150-450) k/uL Urine Nitrite Positive H (Negative) Ur Leukocyte Esterase Moderate H (Negative) Urine WBC 6 H (0-5) /hpf Urine Bacteria Rare H (None) /hpf Hyaline Casts 8 H (0-2) /lpf Urine Mucus Rare H (None) /hpf
[2022-11-18] MEDS: HYDROcodone/APAP 10-325MG 1 EACH TAB PO PRN ×2 (18:35→23:25)
[2022-11-18 20:16] LABS: Glucose,Whole Blood 190 mg/dL (70-110)
[2022-11-18] MEDS: INSULIN DETEMIR (LEVEMIR) 100 UNIT/ML SYR SQ SCH (21:14)
[2022-11-18] MEDS: MONTELUKAST 10 MG TAB PO SCH (21:14)
[2022-11-18] MEDS: ATORVASTATIN 40 MG TAB PO SCH (21:14)
[2022-11-19] MEDS: IPRATROPIUM-ALBUTEROL 3 ML NEB INHALATION SCH ×5 (00:03→21:36)
[2022-11-19] MEDS: SYMBICORT 160-4.5 MCG INHALER INHALATION SCH ×3 (00:03→21:36)
[2022-11-19] MEDS: HYDROcodone/APAP 10-325MG 1 EACH TAB PO PRN ×2 (01:50→19:44)
[2022-11-19 06:11] LABS: Glucose,Whole Blood 90 mg/dL (70-110)
[2022-11-19] MEDS: APIXABAN 5 MG TAB PO SCH (09:33)
[2022-11-19] MEDS: FUROSEMIDE 10 MG/ML 4 ML VIAL IV SCH ×3 (09:33→22:56)
[2022-11-19] MEDS: LOSARTAN 25 MG TAB PO SCH (09:33)
[2022-11-19] MEDS: VANCOMYCIN 125 MG CAPSULE PO SCH ×4 (09:33→22:56)
[2022-11-19] MEDS: AMIODARONE 200 MG TAB PO SCH ×2 (09:33→21:09)
[2022-11-19] MEDS: GABAPENTIN 300 MG CAP PO SCH ×3 (09:34→21:09)
[2022-11-19] MEDS: CHOLECALCIFEROL 125 MCG (5000 IU) TABLET PO SCH (09:34)
[2022-11-19] MEDS: amLODIPine 5 MG TAB PO SCH ×2 (09:34→21:09)
[2022-11-19] MEDS: LETROZOLE 2.5 MG TAB PO SCH (09:34)
[2022-11-19] MEDS: METOPROLOL TARTRATE 50 MG TAB PO SCH ×2 (09:34→21:09)
[2022-11-19] MEDS: DULoxetine HCL 60 MG CAPSULE.DR PO SCH ×3 (09:36→21:09)
[2022-11-19 11:08] LABS: African American GFR (CKD) 67 (>60 ml/min/1.73 sqM); Anion Gap 12 mmol/L; Blood Urea Nitrogen 16 mg/dL (7-17); Calcium 8.6 mg/dL (8.4-10.2); Carbon Dioxide 21 mmol/L (22-30); Chloride 105 mmol/L (98-107); Glucose 107 mg/dL (74-99); Non-African American GFR(CKD) 59 (>60 ml/min/1.73 sqM); Sodium 138 mmol/L (137-145)
[2022-11-19 11:12] LABS: Potassium 3.9 mmol/L (3.5-5.1)
[2022-11-19 11:33] LABS: Glucose,Whole Blood 93 mg/dL (70-110)
--- NOTE | 2022-11-19 13:04 | P.PN ---
Subjective Progress Note Date: 11/19/22 Patient is a 58-year-old female with a PMH of COPD with chronic hypoxic respiratory failure on 2 L is a cannula oxygen at home, CAD status post CABG, A. fib on Eliquis, type II DM, hypertension, and hyperlipidemia who presents to the emergency room with complaints of gradually worsening shortness of breath and lower extremity edema. The patient reports that her symptoms have been gradually worsening over the past 1 week. Of note, the patient was recently discharged from the hospital on 11/12 when she was hospitalized for a C. diff infection. The patient denied experiencing chest discomfort, nausea, vomiting, diaphoresis, fever, chills. In the emergency room, chest x-ray revealed a moderate right and minimal left- sided pleural effusion with findings consistent for volume overload. EKG revealed sinus bradycardia at 59 bpm with right bundle branch block as reviewed by me. Laboratory evaluation was remarkable for troponin less than 0.012, proBNP 1490. The patient's SpO2 in the emergency room upon arrival was 91% on 4 L is a cannula oxygen. 11/18 Patient was seen and examined. No acute events overnight. Currently on 4L saturating low 90s. She reports 20% improvement in her breathing. Complains of incomplete bladder emptying. Currently on treatment for C. diff. Cardiology saw the patient and she is currently on Lasix 40 mg IV TID. CBC shows hemoglobin of 11 and platelet count 148. BMP is unremarkable. 11/19 Patient was seen and examined. She reports slight improvement in her breathi ng. Currently on 5L NC at 89% at rest. She is negative 1141 cc fluid balance. Weight gain from 90.718 to 92.5kg. BMP shows a bicarb of 21 and glucose 107. Urinalysis positive nitrate and moderate leukocyte esterase. Case discussed with Dr. Graff, recommends continued IV diuresis and possible thoracentesis if not improved on Tuesday. General: non toxic, no distress, appears at stated age, obese Derm: no unusual rashes/lesions, warm Head: atraumatic, normocephalic, symmetric Eyes: EOMI, no lid lag, anicteric sclera ENT: Nose and ears atraumatic Neck: No cervical lymphadenopathy, trachea midline, supple Cardiovascular: S1S2 reg, no murmur, 1+ bilateral lower extremity pitting edema Lungs: Scattered coarse breath sounds with bibasilar rales, no accessory muscle use Ext: muscle strength 4 out of 5 in all 4 extremities grossly, no gross muscle atrophy, no contractures, Neuro: no gross focal neuro deficits Psych: Alert, oriented, appropriate affect Assessment: Acute on chronic hypoxic respiratory failure in setting of suspected congestive heart failure Advanced chronic COPD C. difficile Chronic conditions: A. fib, type II DM, hypertension, hyperlipidemia, CAD Based on my assessment of this patient, this patient meets a high complexity level of care. Patient has a CHF with severe exacerbation or progression of disease which poses a threat to life or bodily function. Acute on chronic hypoxic respiratory failure in setting of suspected congestive heart failure: Lasix 40 mg IV TID. Cardiology on board. Daily BMP as lasix is nephrotoxic. Strict intake/outtake along with daily weights. Advanced chronic COPD: Consult pulmonary. DuoNeb scheduled and as needed for SOB/wheezing. C. difficile: Continue Vancomycin by mouth. I have reviewed the following philatelic consultant notes: I have reviewed the results of the following tests: UA, BMP. I have ordered the following tests: BMP I have discussed the care of this patient with the following independent historian: I have independently interpreted the following test below: I have discussed the management of this patient with the following physician: Discussed with Dr. Graff as above. Objective - Vital Signs Vital signs: Vital Signs Temp 97.4 F L 11/19/22 08:45 Pulse 61 11/19/22 11:58 Resp 20 11/19/22 11:58 BP 110/55 11/19/22 11:58 Pulse Ox 96 11/19/22 11:58 FiO2 Intake & Output 11/18/22 11/19/22 11/19/22 18:59 06:59 18:59 Intake Total 360 780 Output Total 901 600 1 Balance -541 -600 779 Weight 92.5 kg Intake: Oral 360 780 Output: Urine 900 600 Female - External 600 Stool 1 1 Other: Voiding Method External Catheter External Catheter External Catheter - Labs CBC & Chem 7: 11/18/22 06:15 11/19/22 10:32 Labs: Abnormal Lab Results - Last 24 Hours (Table) 11/18/22 11/18/22 11/19/22 Range/Units 16:42 20:14 10:32 Carbon Dioxide 21 L (22-30) mmol/L Glucose 107 H (74-99) mg/dL POC Glucose (mg/dL) 190 H (70-110) mg/dL Urine Nitrite Positive H (Negative) Ur Leukocyte Esterase Moderate H (Negative) Urine WBC 6 H (0-5) /hpf Urine Bacteria Rare H (None) /hpf Hyaline Casts 8 H (0-2) /lpf Urine Mucus Rare H (None) /hpf
--- NOTE | 2022-11-19 13:06 | P.CNPUL ---
History of Present Illness Consult date: 11/19/22 Reason for consult: dyspnea History of present illness: A 67-year-old female patient with multiple medical problems and comorbidities, was known to me and the patient was seen during cardiac hospitalizations for pulmonary complications related to COPD exacerbation and CHF which is essentially no follow diastolic heart failure. She is also known to have coronary artery disease, previous bypass surgery, hypertension, hyperlipidemia diabetes mellitus type 2. Most recent echocardiogram from 09/15/2022 shows an ejection fraction of 6065%. There is moderate RV dilation, moderate pulmonary hypertension, normal valvular functions. The patient is known to have chronic A. fib. The patient is also known to have history of breast cancer and she has undergone lumpectomy and sentinel lymph node biopsy and she did not require any radiation therapy and the patient was started on antiestrogen treatment. The patient during the earlier hospitalization of 11/04/2022, diagnosed having C. diff and she was discharged home on oral vancomycin 125 mg by mouth 4 times a day. The patient is coming in for worsening shortness of breath. A chest x-ray shows a large right-sided pleural effusion. Her proBNP level was 1490. Troponins were negative. Pulse ox was running low and she was placed on 4 L of oxygen by nasal cannula which is above her usual oxygen requirements which is at 2 L per minute nasal cannula. For that reason, the patient was hospitalized. The patient is currently on Lasix 40 mg IV every 8 hours patient reports some improvement in her shortness of breath since yesterday. She still on vancomycin. No active diarrhea for now. Review of Systems Constitutional: Reports fatigue, Reports weakness Eyes: denies as per HPI, denies blurred vision, denies bulging eye, denies decreased vision, denies diplopia, denies discharge, denies dry eye, denies irritation, denies itching, denies pain, denies photophobia, denies loss of peripheral vision, denies loss of vision, denies tunnel vision/blind spots Ears: deny: decreased hearing, ear discharge, earache, tinnitus Ears, nose, mouth and throat: Reports as per HPI Breasts: absent: as per HPI, change in shape, gynecomastia, masses, nipple discharge, pain, skin changes, swelling Cardiovascular: Reports decreased exercise tolerance, Reports dyspnea on exertion, Reports orthopnea Respiratory: Reports as per HPI, Reports dyspnea Gastrointestinal: Reports as per HPI Genitourinary: Reports as per HPI Menstruation: Reports as per HPI Musculoskeletal: Reports low back pain Musculoskeletal: bilateral: ankle swelling, absent: ankle pain, ankle stiffness Integumentary: Reports as per HPI Neurological: Reports as per HPI Psychiatric: Reports as per HPI Endocrine: Reports as per HPI Hematologic/Lymphatic: Reports as per HPI Allergic/Immunologic: Reports as per HPI Past Medical History Past Medical History: Atrial Fibrillation, Coronary Artery Disease (CAD), Cancer, COPD, Diabetes Mellitus, GERD/Reflux, Hyperlipidemia Additional Past Medical History / Comment(s): post polio syndrome rt side, neuropathy, hx. spontaneous pneumothorax, bowel resection for sepsis/infection,cut on toe History of Any Multi-Drug Resistant Organisms: ESBL Date of last positivie culture/infection: 06/29/21 MDRO Source:: ESBL BACK Past Surgical History: Back Surgery, Bowel Resection, Breast Surgery, Cholecystectomy, Coronary Bypass/CABG, Ear Surgery, Tonsillectomy Additional Past Surgical History / Comment(s): triple bypass 2013, left salpingo-oophorectomy, laminectomy L4 L5x3, ear surgery x 3 Past Anesthesia/Blood Transfusion Reactions: No Reported Reaction Past Psychological History: Anxiety, Depression Smoking Status: Former smoker Past Alcohol Use History: Occasional Past Drug Use History: None Reported - Past Family History Mother Family Medical History: Cancer Medications and Allergies Home Medications Medication Instructions Recorded Confirmed Type Atorvastatin [Lipitor] 40 mg PO HS 03/23/16 11/17/22 History DULoxetine HCL [Cymbalta] 60 mg PO HS 03/23/16 11/17/22 History Metoprolol Tartrate [Lopressor] 50 mg PO BID 03/23/16 11/17/22 History Omeprazole [PriLOSEC] 20 mg PO DAILY 03/23/16 11/17/22 History Montelukast [Singulair] 10 mg PO HS 05/18/21 11/17/22 History Ubidecarenone [Co Q-10] 200 mg PO DAILY 05/18/21 11/17/22 History Gabapentin 600 mg PO TID 06/29/21 11/17/22 History Budesonide-Formot 160-4.5 Mcg 2 puff INHALATION RT-BID 04/06/22 11/17/22 History [Symbicort 160-4.5 Mcg Inhaler] Biotin [Biotin Disolve] 10,000 mcg PO DAILY 09/03/22 11/17/22 History Letrozole [Femara] 2.5 mg PO DAILY 09/03/22 11/17/22 History Apixaban [Eliquis] 5 mg PO BID 09/06/22 11/17/22 History Cholecalciferol [Vitamin D3 (125 125 mcg PO DAILY 09/06/22 11/17/22 History Mcg = 5000 Iu)] Cyanocobalamin (Vitamin B-12) 2,000 mcg PO DAILY 09/06/22 11/17/22 History [Vitamin B-12] HYDROcodone/APAP 10-325MG [[place] 1 tab PO Q6H PRN 09/06/22 11/17/22 History 10-325] Ascorbic Acid [Vitamin C] 250 mg PO DAILY #60 tab 09/09/22 11/17/22 Rx Ferrous Sulfate [Iron (65 MG 325 mg PO W/LUNCH #60 tab 09/09/22 11/17/22 Rx Elemental)] Albuterol Inhaler [Ventolin Hfa 2 puff INHALATION RT-Q6H PRN 11/10/22 11/17/22 History Inhaler] Amiodarone [Cordarone] 200 mg PO BID 11/10/22 11/17/22 History Furosemide [Lasix] 30 mg PO DAILY 11/10/22 11/17/22 History Insulin Glargine-Yfgn [Semglee 30 units SQ HS 11/10/22 11/17/22 History (Yfgn) Pen] amLODIPine [Norvasc] 5 mg PO BID 11/10/22 11/17/22 History Ondansetron Odt [Zofran Odt] 4 mg PO Q8HR PRN #30 tab 11/11/22 11/17/22 Rx Vancomycin 125 mg PO QID 9 Days #36 cap 11/11/22 11/17/22 Rx Allergies Allergy/AdvReac Type Severity Reaction Status Date / Time morphine Allergy rash,itchin Verified 11/17/22 14:26 g Sulfa (Sulfonamide Allergy Rash/Hives Verified 11/17/22 14:26 Antibiotics) amoxicillin [From Augmentin] AdvReac Diarrhea Verified 11/17/22 14:26 clavulanic acid AdvReac Diarrhea Verified 11/17/22 14:26 [From Augmentin] surgical susy AdvReac Unknown Uncoded 11/17/22 14:00 Physical Exam Vitals: Vital Signs Temp Pulse Pulse Resp BP Pulse Ox 11/19/22 11:32 80 11/19/22 11:24 74 11/19/22 08:46 71 20 11/19/22 08:45 97.4 F L 71 20 112/57 91 L 11/19/22 08:09 76 11/19/22 07:54 72 90 L 11/19/22 04:00 98.2 F 64 20 101/56 89 L 11/19/22 02:00 20 11/19/22 00:17 86 11/19/22 00:04 88 11/19/22 00:00 97.8 F 62 20 100/46 90 L 11/18/22 20:00 98.4 F 64 20 100/57 89 L 11/18/22 16:51 98.1 F 80 17 122/56 92 L 11/18/22 13:57 18 11/18/22 12:00 58 L 18 118/66 90 L Intake and Output 11/18/22 11/19/22 11/19/22 22:59 06:59 14:59 Intake Total 240 780 Output Total 350 600 1 Balance -110 -600 779 Intake: Oral 240 780 Output: Urine 350 600 Female - External 600 Stool 1 Other: Voiding Method External Catheter External Catheter Weight 92.5 kg Gen: in no apparent distress, resting comfortably in bed, the patient is cu rrently on 4 L O2 nasal cannula with a pulse ox of 97% Eyes: PERRL, no scleral injection or icterus HENT: normocephalic, atraumatic, good hearing acuity, moist mucous membranes Neck: no tracheal deviation, full range of motion Resp: The patient diminished breath on the right lung the lung with dullness to percussion consistent with pleural effusion. CVS: good distal perfusion x 4, bilateral 1+ pitting edema GI: soft, NTTP, ND, no hepatosplenomegaly : no suprapubic tenderness, no CVAT, stacy catheter not present MSK: no clubbing, no cyanosis, no noted contractures of extremities Skin: no noted rashes, petechiae; temperature of skin is appropriate Neuro: moving all extremities without signs of weakness, CN II-XII intact Psych: cooperative, euthymic mood, insight and judgment intact Results - Laboratory Findings CBC and BMP: 11/18/22 06:15 11/19/22 10:32 PT/INR, D-dimer PT 13.2 sec (9.0-12.0) H 11/17/22 15:32 INR 1.3 (<1.2) H 11/17/22 15:32 Abnormal lab findings: Abnormal Labs 11/17/22 11/17/22 11/17/22 15:32 15:32 15:32 Hgb 11.1 L MCHC RDW 21.4 H Plt Count Lymphocytes # 0.9 L PT 13.2 H INR 1.3 H Carbon Dioxide Glucose 115 H POC Glucose (mg/dL) AST 71 H Alkaline Phosphatase 132 H Total Protein 5.7 L Albumin 2.9 L Urine Nitrite Ur Leukocyte Esterase Urine WBC Urine Bacteria Hyaline Casts Urine Mucus 11/18/22 11/18/22 11/18/22 06:15 16:42 20:14 Hgb 11.0 L MCHC 30.4 L RDW 21.4 H Plt Count 148 L Lymphocytes # PT INR Carbon Dioxide Glucose POC Glucose (mg/dL) 190 H AST Alkaline Phosphatase Total Protein Albumin Urine Nitrite Positive H Ur Leukocyte Esterase Moderate H Urine WBC 6 H Urine Bacteria Rare H Hyaline Casts 8 H Urine Mucus Rare H 11/19/22 10:32 Hgb MCHC RDW Plt Count Lymphocytes # PT INR Carbon Dioxide 21 L Glucose 107 H POC Glucose (mg/dL) AST Alkaline Phosphatase Total Protein Albumin Urine Nitrite Ur Leukocyte Esterase Urine WBC Urine Bacteria Hyaline Casts Urine Mucus - Diagnostic Findings Chest x-ray: image reviewed Assessment and Plan Plan: Acute on chronic dyspnea, multifactorial. The patient has background COPD and the patient has also developed enlarging right-sided pleural effusion probably related to decompensated heart failure/CHF. The patient is currently on IV Lasix and she is currently feeling better. The patient is known to have CHF with preserved LV and diastolic heart failure although her most recent echocardiogram showed a preserved LV function with a diastolic pattern that was consistent with her age. She also has moderate degree of pulmonary hypertension and RV dilatation. She is currently on 4 L nasal cannula Acute on top of chronic hypoxic respiratory failure currently on 4 liters nasal cannula New right pleural effusion, likely secondary to CHF, and the patient has also s mall left-sided pleural effusion COPD with upper lobe predominance maintain on Symbicort on outpatient basis Coronary artery disease with previous bypass surgery Paroxysmal A. fib current rhythm is sinus and the patient is admitted on anticoagulants. She has also underlying bundle branch block pattern Hypertension Hyperlipidemia Diabetes mellitus type 2 Right-sided breast cancer with a previous lumpectomy and sentinel lymph node biopsy and the patient is currently on hormonal treatment. Chronic anemia to divulge as of the beginning of the year and hemoglobin is stable for now Chronic back pain with previous back surgery currently maintained on [place] and Neurontin. The patient has undergone a surgery for severe lumbar stenosis L2 through S1 and the patient has undergone laminectomy and facetectomy and foraminotomy with fusion at multiple levels. History of her lumbar wound dehiscence with serous drainage back in June 2022 Previous history of spontaneous pneumothorax on the left History of previous poliomyelitis on the right C. diff colitis currently on oral vancomycin Plan Continue IV Lasix Monitor right-sided pleural effusion hold anticoagulation in anticipation for thoracentesis of the later stage of needed Continue Symbicort Continue DuoNeb about treatments [id number] Monitor fluid balance Repeat chest x-ray in the morning Continue rest of the medications Titrate FiO2 to maintain saturation above 90% Continue to vancomycin We'll continue to follow
--- NOTE | 2022-11-19 13:13 | P.PN ---
Subjective Progress Note Date: 11/19/22 History of present illness: This is a 67 year old female presented to hospital with shortness of breath with history of COPD on home O2, coronary artery disease status post bypass surgery, atrial fibrillation, DM type II, hypertension, hyperlipidemia. An echocardiogram in August of this year revealed normal LV systolic function, moderate pulmonary hypertension, left atrial enlargement. Patient presented with complaints of worsening shortness of breath she had been recently discharged from hospital on November 12 for C. difficile colitis. Patient denies any chest pain. She has been treated for acute exacerbation of chronic diastolic heart failure on Lasix 40 mg IV every 8 hours. Losartan was added ye sterday to her medication regime. Patient denies having any new concerns today. Heart rate is running in the 70s, blood pressure 110/55, pulse ox 96% on 3 L nasal cannula. Blood work reveals potassium of 3.9, BUN 16 creatinine 0.99. Physical examination: Gen: This is a 67-year-old female VS: reviewed HEENT: Head is atraumatic, normocephalic. Pupils equal, round. Sclerae is anicteric. NECK: Supple. No JVD. LUNGS: Diminished air entry at the right base. HEART: Regular rate and rhythm. Systolic murmur at the left lower sternal border ABDOMEN: Soft No tenderness. EXTREMITIES: Mild pedal edema. No calf tenderness. Assessment: Acute exacerbation of chronic diastolic heart failure Coronary artery disease status post coronary artery bypass graft Paroxysmal atrial fibrillation Right-sided pleural effusion Plan: Continue patient on IV Lasix 40 mg every 8 hours Monitor I&O, daily weights, I's and renal function Continue patient's home cardiac medications with the addition of losartan and metolazone added today Further recommendations to follow based upon clinical course Nurse practitioner note has been reviewed, I agree with documented findings and plan of care. Patient was seen and examined. Objective - Vital Signs Vital signs: Vital Signs Temp 97.4 F L 11/19/22 08:45 Pulse 71 11/19/22 08:46 Resp 20 11/19/22 08:46 BP 112/57 11/19/22 08:45 Pulse Ox 91 L 11/19/22 08:45 FiO2 Intake & Output 11/18/22 11/19/22 11/19/22 18:59 06:59 18:59 Intake Total 360 780 Output Total 901 600 1 Balance -541 -600 779 Weight 92.5 kg Intake: Oral 360 780 Output: Urine 900 600 Female - External 600 Stool 1 1 Other: Voiding Method External Catheter External Catheter External Catheter - Labs CBC & Chem 7: 11/18/22 06:15 11/19/22 10:32 Labs: Abnormal Lab Results - Last 24 Hours (Table) 11/18/22 11/18/22 11/19/22 Range/Units 16:42 20:14 10:32 Carbon Dioxide 21 L (22-30) mmol/L Glucose 107 H (74-99) mg/dL POC Glucose (mg/dL) 190 H (70-110) mg/dL Urine Nitrite Positive H (Negative) Ur Leukocyte Esterase Moderate H (Negative) Urine WBC 6 H (0-5) /hpf Urine Bacteria Rare H (None) /hpf Hyaline Casts 8 H (0-2) /lpf Urine Mucus Rare H (None) /hpf
[2022-11-19] MEDS: metOLazone 5 MG TAB PO SCH (13:16)
[2022-11-19] MEDS: FERROUS SULFATE 325 MG TAB PO SCH (13:16)
[2022-11-19 15:12] VITALS: BMI 32.9
[2022-11-19 16:21] LABS: Glucose,Whole Blood 118 mg/dL (70-110)
[2022-11-19 20:01] LABS: Glucose,Whole Blood 120 mg/dL (70-110)
[2022-11-19] MEDS: INSULIN DETEMIR (LEVEMIR) 100 UNIT/ML SYR SQ SCH (21:09)
[2022-11-19] MEDS: ATORVASTATIN 40 MG TAB PO SCH (21:09)
[2022-11-19] MEDS: MONTELUKAST 10 MG TAB PO SCH (21:09)
[2022-11-20] MEDS: HYDROcodone/APAP 10-325MG 1 EACH TAB PO PRN ×2 (01:55→16:39)
[2022-11-20 06:08] LABS: Glucose,Whole Blood 82 mg/dL (70-110)
[2022-11-20] MEDS: IPRATROPIUM-ALBUTEROL 3 ML NEB INHALATION SCH ×4 (08:08→20:40)
[2022-11-20] MEDS: SYMBICORT 160-4.5 MCG INHALER INHALATION SCH ×2 (08:08→20:43)
[2022-11-20 08:31] LABS: African American GFR (CKD) 71 (>60 ml/min/1.73 sqM); Anion Gap 7 mmol/L; Blood Urea Nitrogen 19 mg/dL (7-17); Calcium 8.5 mg/dL (8.4-10.2); Carbon Dioxide 29 mmol/L (22-30); Chloride 101 mmol/L (98-107); Glucose 63 mg/dL (74-99); Non-African American GFR(CKD) 62 (>60 ml/min/1.73 sqM); Potassium 3.6 mmol/L (3.5-5.1); Sodium 137 mmol/L (137-145)
[2022-11-20] MEDS: LOSARTAN 25 MG TAB PO SCH (09:09)
[2022-11-20] MEDS: GABAPENTIN 300 MG CAP PO SCH ×3 (09:09→20:48)
[2022-11-20] MEDS: CHOLECALCIFEROL 125 MCG (5000 IU) TABLET PO SCH (09:09)
[2022-11-20] MEDS: METOPROLOL TARTRATE 50 MG TAB PO SCH ×2 (09:09→20:48)
[2022-11-20] MEDS: AMIODARONE 200 MG TAB PO SCH ×2 (09:09→20:47)
[2022-11-20] MEDS: amLODIPine 5 MG TAB PO SCH ×2 (09:09→20:48)
[2022-11-20] MEDS: FUROSEMIDE 10 MG/ML 4 ML VIAL IV SCH ×3 (09:09→22:59)
[2022-11-20] MEDS: LETROZOLE 2.5 MG TAB PO SCH (09:10)
[2022-11-20] MEDS: metOLazone 5 MG TAB PO SCH (09:10)
[2022-11-20] MEDS: VANCOMYCIN 125 MG CAPSULE PO SCH ×4 (09:12→20:56)
[2022-11-20] MEDS: DULoxetine HCL 60 MG CAPSULE.DR PO SCH ×2 (09:16→20:47)
[2022-11-20 11:47] LABS: Glucose,Whole Blood 134 mg/dL (70-110)
[2022-11-20] MEDS: FERROUS SULFATE 325 MG TAB PO SCH (12:17)
--- NOTE | 2022-11-20 12:36 | P.PN ---
Subjective Progress Note Date: 11/20/22 History of present illness: This is a 67 year old female presented to hospital with shortness of breath with history of COPD on home O2, coronary artery disease status post bypass surgery, atrial fibrillation, DM type II, hypertension, hyperlipidemia. An echocardiogram in August of this year revealed normal LV systolic function, moderate pulmonary hypertension, left atrial enlargement. Patient presented with complaints of worsening shortness of breath she had been recently discharged from hospital on November 12 for C. difficile colitis. Patient denies any chest pain. She has been treated for acute exacerbation of chronic diastolic heart failure on Lasix 40 mg IV every 8 hours. Losartan was added ye sterday to her medication regime. Patient denies having any new concerns today. Heart rate is running in the 70s, blood pressure 110/55, pulse ox 96% on 3 L nasal cannula. Blood work reveals potassium of 3.9, BUN 16 creatinine 0.99. 11/20 Patient continues to have lower extremity edema while on Lasix IV 40 every 8 hours. Appears that I&O and daily weights are not accurate. BUN 19 and creatinine 0.95 and potassium 3.6. Physical examination: Gen: This is a 67-year-old female VS: reviewed HEENT: Head is atraumatic, normocephalic. Pupils equal, round. Sclerae is anicteric. NECK: Supple. No JVD. LUNGS: Diminished air entry at the right base. HEART: Regular rate and rhythm. Systolic murmur at the left lower sternal border ABDOMEN: Soft No tenderness. EXTREMITIES: Mild pedal edema. No calf tenderness. Assessment: Acute exacerbation of chronic diastolic heart failure Coronary artery disease status post coronary artery bypass graft Paroxysmal atrial fibrillation Right-sided pleural effusion Plan: Continue patient on IV Lasix 40 mg every 8 hours Monitor I&O, daily weights, I's and renal function Continue patient's home cardiac medications with the addition of losartan and metolazone added yesterday Further recommendations to follow based upon clinical course Nurse practitioner note has been reviewed, I agree with documented findings and plan of care. Patient was seen and examined. Objective - Vital Signs Vital signs: Vital Signs Temp 98.3 F 11/20/22 08:10 Pulse 76 11/20/22 11:33 Resp 18 11/20/22 08:10 BP 132/67 11/20/22 08:10 Pulse Ox 92 L 11/20/22 08:10 FiO2 Intake & Output 11/19/22 11/20/22 11/20/22 18:59 06:59 18:59 Intake Total 780 120 118 Output Total 651 400 704 Balance 455 -223 -976 Weight 92.5 kg 95.5 kg Intake: Oral 780 120 118 Output: Urine 650 400 700 Stool 1 4 Other: Voiding Method External Catheter Bedside Commode # Voids 3 1 # Bowel Movements 1 1 - Labs CBC & Chem 7: 11/18/22 06:15 11/20/22 07:28 Labs: Abnormal Lab Results - Last 24 Hours (Table) 11/19/22 11/19/22 11/20/22 Range/Units 16:20 20:00 07:28 BUN 19 H (7-17) mg/dL Glucose 63 L (74-99) mg/dL POC Glucose (mg/dL) 118 H 120 H (70-110) mg/dL 11/20/22 Range/Units 11:40 BUN (7-17) mg/dL Glucose (74-99) mg/dL POC Glucose (mg/dL) 134 H (70-110) mg/dL
--- NOTE | 2022-11-20 14:26 | P.PN ---
Subjective Progress Note Date: 11/20/22 Patient is a 58-year-old female with a PMH of COPD with chronic hypoxic respiratory failure on 2 L is a cannula oxygen at home, CAD status post CABG, A. fib on Eliquis, type II DM, hypertension, and hyperlipidemia who presents to the emergency room with complaints of gradually worsening shortness of breath and lower extremity edema. The patient reports that her symptoms have been gradually worsening over the past 1 week. Of note, the patient was recently discharged from the hospital on 11/12 when she was hospitalized for a C. diff infection. The patient denied experiencing chest discomfort, nausea, vomiting, diaphoresis, fever, chills. In the emergency room, chest x-ray revealed a moderate right and minimal left- sided pleural effusion with findings consistent for volume overload. EKG revealed sinus bradycardia at 59 bpm with right bundle branch block as reviewed by me. Laboratory evaluation was remarkable for troponin less than 0.012, proBNP 1490. The patient's SpO2 in the emergency room upon arrival was 91% on 4 L is a cannula oxygen. 11/18 Patient was seen and examined. No acute events overnight. Currently on 4L saturating low 90s. She reports 20% improvement in her breathing. Complains of incomplete bladder emptying. Currently on treatment for C. diff. Cardiology saw the patient and she is currently on Lasix 40 mg IV TID. CBC shows hemoglobin of 11 and platelet count 148. BMP is unremarkable. 11/19 Patient was seen and examined. She reports slight improvement in her breathi ng. Currently on 5L NC at 89% at rest. She is negative 1141 cc fluid balance. Weight gain from 90.718 to 92.5kg. BMP shows a bicarb of 21 and glucose 107. Urinalysis positive nitrate and moderate leukocyte esterase. Case discussed with Dr. Graff, recommends continued IV diuresis and possible thoracentesis if not improved on Tuesday. 11/20 Patient was seen and examined. She reports improvement in her breathing. Currently on 4L NC at 94% at rest. She is negative 1141 cc fluid balance. Weight gain from 90.718 to 92.5kg. Metolazone 5 mg PO QD added yesterday to help diuresis. Continued on Lasix 40 mg IV TID. Possibly thoracentesis tomorrow. BMP shows BUN 19 and glucose 63. General: non toxic, no distress, appears at stated age, obese Derm: no unusual rashes/lesions, warm Head: atraumatic, normocephalic, symmetric Eyes: EOMI, no lid lag, anicteric sclera ENT: Nose and ears atraumatic Neck: No cervical lymphadenopathy, trachea midline, supple Cardiovascular: S1S2 reg, no murmur, 1+ bilateral lower extremity pitting edema Lungs: Scattered coarse breath sounds with bibasilar rales, no accessory muscle use Ext: muscle strength 4 out of 5 in all 4 extremities grossly, no gross muscle atrophy, no contractures, Neuro: no gross focal neuro deficits Psych: Alert, oriented, appropriate affect Assessment: Acute on chronic hypoxic respiratory failure in setting of suspected congestive heart failure Advanced chronic COPD C. difficile Chronic conditions: A. fib, type II DM, hypertension, hyperlipidemia, CAD Based on my assessment of this patient, this patient meets a high complexity l evel of care. Patient has a CHF with severe exacerbation or progression of disease which poses a threat to life or bodily function. Acute on chronic hypoxic respiratory failure in setting of suspected congestive heart failure: Lasix 40 mg IV TID. Cardiology on board. Daily BMP as lasix is nephrotoxic. Strict intake/outtake along with daily weights. Advanced chronic COPD: Consult pulmonary. DuoNeb scheduled and as needed for SOB/wheezing. C. difficile: Continue Vancomycin by mouth. I have reviewed the following cardiology consultants notes: I have reviewed the results of the following tests: BMP. I have ordered the following tests: BMP. CXR I have discussed the care of this patient with the following independent historian: I have independently interpreted the following test below: I have discussed the management of this patient with the following physician: Objective - Vital Signs Vital signs: Vital Signs Temp 98.3 F 11/20/22 08:10 Pulse 57 L 11/20/22 12:00 Resp 18 11/20/22 12:00 BP 100/55 11/20/22 12:00 Pulse Ox 94 L 11/20/22 12:00 FiO2 Intake & Output 11/19/22 11/20/22 11/20/22 18:59 06:59 18:59 Intake Total 780 120 118 Output Total 651 400 704 Balance 129 -280 -586 Weight 92.5 kg 95.5 kg Intake: Oral 780 120 118 Output: Urine 650 400 700 Stool 1 4 Other: Voiding Method External Catheter Bedside Commode # Voids 3 1 # Bowel Movements 1 1 - Labs CBC & Chem 7: 11/18/22 06:15 11/20/22 07:28 Labs: Abnormal Lab Results - Last 24 Hours (Table) 11/19/22 11/19/22 11/20/22 Range/Units 16:20 20:00 07:28 BUN 19 H (7-17) mg/dL Glucose 63 L (74-99) mg/dL POC Glucose (mg/dL) 118 H 120 H (70-110) mg/dL 11/20/22 Range/Units 11:40 BUN (7-17) mg/dL Glucose (74-99) mg/dL POC Glucose (mg/dL) 134 H (70-110) mg/dL
--- NOTE | 2022-11-20 16:12 | P.PN ---
Subjective Progress Note Date: 11/20/22 A 67-year-old female patient with multiple medical problems and comorbidities, was known to me and the patient was seen during cardiac hospitalizations for pulmonary complications related to COPD exacerbation and CHF which is essentially no follow diastolic heart failure. She is also known to have destiny nary artery disease, previous bypass surgery, hypertension, hyperlipidemia diabetes mellitus type 2. Most recent echocardiogram from 09/15/2022 shows an ejection fraction of 6065%. There is moderate RV dilation, moderate pulmonary hypertension, normal valvular functions. The patient is known to have chronic A. fib. The patient is also known to have history of breast cancer and she has undergone lumpectomy and sentinel lymph node biopsy and she did not require any radiation therapy and the patient was started on antiestrogen treatment. The patient during the earlier hospitalization of 11/04/2022, diagnosed having C. diff and she was discharged home on oral vancomycin 125 mg by mouth 4 times a day. The patient is coming in for worsening shortness of breath. A chest x-ray shows a large right-sided pleural effusion. Her proBNP level was 1490. Troponins were negative. Pulse ox was running low and she was placed on 4 L of oxygen by nasal cannula which is above her usual oxygen requirements which is at 2 L per minute nasal cannula. For that reason, the patient was hospitalized. The patient is currently on Lasix 40 mg IV every 8 hours patient reports some improvement in her shortness of breath since yesterday. She still on vancomycin. No active diarrhea On today's evaluation of 11/20/2022, the patient is eating better. She is diuresing well. She is off anticoagulation for possible thoracentesis of pleural effusion remains unchanged.She is currently on Lasix 40 mg every 8 hours. The fluid balance has been negative. The patient has a BUN of 19 and a creatinine of 0.9. Sodium level is at 137. The patient remains on 4 L of oxygen by nasal cannula with a pulse ox of 94%. The patient is hemodynamically stable. Objective - Vital Signs Vital signs: Vital Signs Temp 98.3 F 11/20/22 08:10 Pulse 82 11/20/22 08:10 Resp 18 11/20/22 08:10 BP 132/67 11/20/22 08:10 Pulse Ox 92 L 11/20/22 08:10 FiO2 Intake & Output 11/19/22 11/20/2211/20/23 18:59 06:59 18:59 Intake Total 780 120 118 Output Total 651 400 704 Balance 129 -280 -586 Weight 92.5 kg 95.5 kg Intake: Oral 780 120 118 Output: Urine 650 400 700 Stool 1 4 Other: Voiding Method External Catheter Bedside Commode # Voids 3 1 # Bowel Movements 1 1 - Exam Gen: in no apparent distress, resting comfortably in bed, the patient is currently on 4 L O2 nasal cannula with a pulse ox of 97% Eyes: PERRL, no scleral injection or icterus HENT: normocephalic, atraumatic, good hearing acuity, moist mucous membranes Neck: no tracheal deviation, full range of motion Resp: The patient diminished breath on the right lung the lung with dullness to percussion consistent with pleural effusion. CVS: good distal perfusion x 4, bilateral 1+ pitting edema GI: soft, NTTP, ND, no hepatosplenomegaly : no suprapubic tenderness, no CVAT, stacy catheter not present MSK: no clubbing, no cyanosis, no noted contractures of extremities Skin: no noted rashes, petechiae; temperature of skin is appropriate Neuro: moving all extremities without signs of weakness, CN II-XII intact Psych: cooperative, euthymic mood, insight and judgment intact - Labs CBC & Chem 7: 11/18/22 06:15 11/20/22 07:28 Labs: Abnormal Lab Results - Last 24 Hours (Table) 11/19/22 11/19/22 11/19/22 Range/Units 10:32 16:20 20:00 Carbon Dioxide 21 L (22-30) mmol/L BUN (7-17) mg/dL Glucose 107 H (74-99) mg/dL POC Glucose (mg/dL) 118 H 120 H (70-110) mg/dL 11/20/22 Range/Units 07:28 Carbon Dioxide (22-30) mmol/L BUN 19 H (7-17) mg/dL Glucose 63 L (74-99) mg/dL POC Glucose (mg/dL) (70-110) mg/dL Assessment and Plan Plan: Acute on chronic dyspnea, multifactorial. The patient has background COPD and the patient has also developed enlarging right-sided pleural effusion probably related to decompensated heart failure/CHF. The patient is currently on IV Lasix and she is currently feeling better. The patient is known to have CHF with preserved LV and diastolic heart failure although her most recent echocardiogram showed a preserved LV function with a diastolic pattern that was consistent with her age. She also has moderate degree of pulmonary hypertension and RV dilatation. She is currently on 4 L nasal cannula Acute on top of chronic hypoxic respiratory failure currently on 4 liters nasal cannula New right pleural effusion, likely secondary to CHF, and the patient has also small left-sided pleural effusion COPD with upper lobe predominance maintain on Symbicort on outpatient basis Coronary artery disease with previous bypass surgery Paroxysmal A. fib current rhythm is sinus and the patient is admitted on anticoagulants. She has also underlying bundle branch block pattern Hypertension Hyperlipidemia Diabetes mellitus type 2 Right-sided breast cancer with a previous lumpectomy and sentinel lymph node biopsy and the patient is currently on hormonal treatment. Chronic anemia to divulge as of the beginning of the year and hemoglobin is stable for now Chronic back pain with previous back surgery currently maintained on Swatara and Neurontin. The patient has undergone a surgery for severe lumbar stenosis L2 through S1 and the patient has undergone laminectomy and facetectomy and foraminotomy with fusion at multiple levels. History of her lumbar wound dehiscence with serous drainage back in June 2022 Previous history of spontaneous pneumothorax on the left History of previous poliomyelitis on the right C. diff colitis currently on oral vancomycin Plan Continue IV Lasix, 40 mg every 8 hours Clinically improving Repeat chest x-ray Keep the anticoagulant on hold for now in this patient for thoracentesis if tomorrow's chest x-ray remains unchanged. Monitor right-sided pleural effusion hold anticoagulation in anticipation for thoracentesis of the later stage of needed Continue Symbicort Continue DuoNeb about treatments [id number] Monitor fluid balance Repeat chest x-ray in the morning Continue rest of the medications Titrate FiO2 to maintain saturation above 90% Continue to vancomycin We'll continue to follow
[2022-11-20 16:39] LABS: Glucose,Whole Blood 94 mg/dL (70-110)
[2022-11-20 20:37] LABS: Glucose,Whole Blood 155 mg/dL (70-110)
[2022-11-20] MEDS: INSULIN DETEMIR (LEVEMIR) 100 UNIT/ML SYR SQ SCH (20:46)
[2022-11-20] MEDS: ATORVASTATIN 40 MG TAB PO SCH (20:47)
[2022-11-20] MEDS: MONTELUKAST 10 MG TAB PO SCH (20:48)
[2022-11-21 06:17] LABS: Glucose,Whole Blood 90 mg/dL (70-110)
[2022-11-21] MEDS: VANCOMYCIN 125 MG CAPSULE PO SCH ×4 (08:40→21:11)
[2022-11-21] MEDS: CHOLECALCIFEROL 125 MCG (5000 IU) TABLET PO SCH (08:40)
[2022-11-21] MEDS: GABAPENTIN 300 MG CAP PO SCH ×3 (08:40→20:38)
[2022-11-21] MEDS: DULoxetine HCL 60 MG CAPSULE.DR PO SCH ×2 (08:40→20:39)
[2022-11-21] MEDS: AMIODARONE 200 MG TAB PO SCH ×2 (08:41→20:38)
[2022-11-21] MEDS: LETROZOLE 2.5 MG TAB PO SCH (08:41)
[2022-11-21] MEDS: amLODIPine 5 MG TAB PO SCH ×2 (08:41→20:38)
[2022-11-21] MEDS: LOSARTAN 25 MG TAB PO SCH (08:41)
[2022-11-21] MEDS: METOPROLOL TARTRATE 50 MG TAB PO SCH ×2 (08:41→20:38)
[2022-11-21] MEDS: metOLazone 5 MG TAB PO SCH (08:41)
[2022-11-21] MEDS: FUROSEMIDE 10 MG/ML 4 ML VIAL IV SCH ×3 (08:41→23:25)
--- NOTE | 2022-11-21 09:04 | XR ---
EXAMINATION TYPE: XR chest 1V DATE OF EXAM: 11/21/2022 COMPARISON: 11/17/2022 INDICATION: Pleural effusion TECHNIQUE: Single frontal view of the chest is obtained. FINDINGS: The heart size is upper limits of normal. The pulmonary vasculature is normal. No pleural effusion is evident. There is elevation of the right diaphragm. Mild right lower lobe infi ltrate appears to be developing. Correlate for subsegmental atelectasis. Sternotomy wires are midline. Stimulator leads are within the spinal canal. IMPRESSION: 1. No definite pleural effusion on the current exam. 2 developing left lower lobe infiltrate. Correla te for subsegmental atelectasis. Follow-up is recommended
[2022-11-21] MEDS: SYMBICORT 160-4.5 MCG INHALER INHALATION SCH ×2 (09:07→21:12)
[2022-11-21] MEDS: IPRATROPIUM-ALBUTEROL 3 ML NEB INHALATION SCH ×4 (09:07→21:12)
--- NOTE | 2022-11-21 11:24 | P.PN ---
Subjective Progress Note Date: 11/21/22 A 67-year-old female patient with multiple medical problems and comorbidities, was known to me and the patient was seen during cardiac hospitalizations for pulmonary complications related to COPD exacerbation and CHF which is essentially no follow diastolic heart failure. She is also known to have destiny nary artery disease, previous bypass surgery, hypertension, hyperlipidemia diabetes mellitus type 2. Most recent echocardiogram from 09/15/2022 shows an ejection fraction of 6065%. There is moderate RV dilation, moderate pulmonary hypertension, normal valvular functions. The patient is known to have chronic A. fib. The patient is also known to have history of breast cancer and she has undergone lumpectomy and sentinel lymph node biopsy and she did not require any radiation therapy and the patient was started on antiestrogen treatment. The patient during the earlier hospitalization of 11/04/2022, diagnosed having C. diff and she was discharged home on oral vancomycin 125 mg by mouth 4 times a day. The patient is coming in for worsening shortness of breath. A chest x-ray shows a large right-sided pleural effusion. Her proBNP level was 1490. Troponins were negative. Pulse ox was running low and she was placed on 4 L of oxygen by nasal cannula which is above her usual oxygen requirements which is at 2 L per minute nasal cannula. For that reason, the patient was hospitalized. The patient is currently on Lasix 40 mg IV every 8 hours patient reports some improvement in her shortness of breath since yesterday. She still on vancomycin. No active diarrhea On today's evaluation of 11/20/2022, the patient is eating better. She is diuresing well. She is off anticoagulation for possible thoracentesis of pleural effusion remains unchanged.She is currently on Lasix 40 mg every 8 hours. The fluid balance has been negative. The patient has a BUN of 19 and a creatinine of 0.9. Sodium level is at 137. The patient remains on 4 L of oxygen by nasal cannula with a pulse ox of 94%. The patient is hemodynamically stable. On 11/21/2022, the patient has no specific complaints. The patient reduce excellent amount of urine output and she has diuresed well while being on IV Lasix. She remains on 4 L of oxygen by nasal cannula. Nevertheless,chest x-ray shows no evidence of any pleural effusion. Some limited atelectatic changes in left lung base. As such, the thoracentesis was canceled and the patient was restarted back on anticoagulation. The patient remains on diuretics. She is receiving Lasix 40 mg IV every 8 hours and she is also on Zaroxolyn. She is also on oral vancomycin regarding C. diff colitis and her diarrhea has also subsided. She is hemodynamically stable. No abdominal pain. No nausea or vomiting. Objective - Vital Signs Vital signs: Vital Signs Temp 97.9 F 11/21/22 08:47 Pulse 77 11/21/22 09:21 Resp 18 11/21/22 09:21 BP 127/58 11/21/22 08:47 Pulse Ox 94 L 11/21/22 09:09 FiO2 Intake & Output 11/20/22 11/21/22 11/21/22 18:59 06:59 18:59 Intake Total 358 180 Output Total 704 2 Balance -346 -2 180 Weight 91.1 kg Intake: Oral 358 180 Output: Urine 700 Stool 4 2 Other: Voiding Method Bedside Commode Bedside Commode Bedside Commode External Catheter External Catheter # Bowel Movements 1 - Exam Gen: in no apparent distress, resting comfortably in bed, the patient is currently on 4 L O2 nasal cannula with a pulse ox of 97% Eyes: PERRL, no scleral injection or icterus HENT: normocephalic, atraumatic, good hearing acuity, moist mucous membranes Neck: no tracheal deviation, full range of motion Resp: The patient diminished breath on the right lung the lung with dullness to percussion consistent with pleural effusion. CVS: good distal perfusion x 4, bilateral 1+ pitting edema GI: soft, NTTP, ND, no hepatosplenomegaly : no suprapubic tenderness, no CVAT, stacy catheter not present MSK: no clubbing, no cyanosis, no noted contractures of extremities Skin: no noted rashes, petechiae; temperature of skin is appropriate Neuro: moving all extremities without signs of weakness, CN II-XII intact Psych: cooperative, euthymic mood, insight and judgment intact - Labs CBC & Chem 7: 11/18/22 06:15 11/20/22 07:28 Labs: Abnormal Lab Results - Last 24 Hours (Table) 11/20/22 11/20/22 Range/Units 11:40 20:36 POC Glucose (mg/dL) 134 H 155 H (70-110) mg/dL Assessment and Plan Plan: Acute on chronic dyspnea, multifactorial. The patient has background COPD and the patient has also developed enlarging right-sided pleural effusion probably related to decompensated heart failure/CHF. The patient is currently on IV Lasix and she is currently feeling better. The patient is known to have CHF with preserved LV and diastolic heart failure although her most recent echocardiogram showed a preserved LV function with a diastolic pattern that was consistent with her age. She also has moderate degree of pulmonary hypertension and RV dilatation. She is currently on 4 L nasal cannul. the patient has responded very nicely to the diuretics and the repeat chest x-ray from today on 11/21/2022 shows no evidence of any pleural effusion. The pleural effusion is essentially recovered and assess there is no need for thoracentesis at this point in time. Acute on top of chronic hypoxic respiratory failure currently on 4 liters nasal cannula New right pleural effusion, likely secondary to CHF, and the patient has also small left-sided pleural effusion, repeat chest x-ray from 11/21/2022 shows resolution of the right-sided pleural effusion. COPD with upper lobe predominance maintain on Symbicort on outpatient basis Coronary artery disease with previous bypass surgery Paroxysmal A. fib current rhythm is sinus and the patient is admitted on anticoagulants. She has also underlying bundle branch block pattern Hypertension Hyperlipidemia Diabetes mellitus type 2 Right-sided breast cancer with a previous lumpectomy and sentinel lymph node biopsy and the patient is currently on hormonal treatment. Chronic anemia to divulge as of the beginning of the year and hemoglobin is stable for now Chronic back pain with previous back surgery currently maintained on [place] and Neurontin. The patient has undergone a surgery for severe lumbar stenosis L2 through S1 and the patient has undergone laminectomy and facetectomy and foraminotomy with fusion at multiple levels. History of her lumbar wound dehiscence with serous drainage back in June 2022 Previous history of spontaneous pneumothorax on the left History of previous poliomyelitis on the right C. diff colitis currently on oral vancomycin Plan Continue IV Lasix, 40 mg every 8 hours Clinically improving Repeat chest x-ray shows no evidence of any pleural effusion which is essentially recovered Restart anticoagulation No need for thoracentesis Continue Symbicort Continue DuoNeb about treatments [id number] Monitor fluid balance Repeat chest x-ray in the morning Continue rest of the medications Titrate FiO2 to maintain saturation above 90% Continue to vancomycin We'll continue to follow
--- NOTE | 2022-11-21 11:43 | P.PN ---
Subjective Progress Note Date: 11/21/22 Patient is a 58-year-old female with a PMH of COPD with chronic hypoxic respiratory failure on 2 L is a cannula oxygen at home, CAD status post CABG, A. fib on Eliquis, type II DM, hypertension, and hyperlipidemia who presents to the emergency room with complaints of gradually worsening shortness of breath and lower extremity edema. The patient reports that her symptoms have been gradually worsening over the past 1 week. Of note, the patient was recently discharged from the hospital on 11/12 when she was hospitalized for a C. diff infection. The patient denied experiencing chest discomfort, nausea, vomiting, diaphoresis, fever, chills. In the emergency room, chest x-ray revealed a moderate right and minimal left- sided pleural effusion with findings consistent for volume overload. EKG revealed sinus bradycardia at 59 bpm with right bundle branch block as reviewed by me. Laboratory evaluation was remarkable for troponin less than 0.012, proBNP 1490. The patient's SpO2 in the emergency room upon arrival was 91% on 4 L is a cannula oxygen. 11/18 Patient was seen and examined. No acute events overnight. Currently on 4L saturating low 90s. She reports 20% improvement in her breathing. Complains of incomplete bladder emptying. Currently on treatment for C. diff. Cardiology saw the patient and she is currently on Lasix 40 mg IV TID. CBC shows hemoglobin of 11 and platelet count 148. BMP is unremarkable. 11/19 Patient was seen and examined. She reports slight improvement in her breathi ng. Currently on 5L NC at 89% at rest. She is negative 1141 cc fluid balance. Weight gain from 90.718 to 92.5kg. BMP shows a bicarb of 21 and glucose 107. Urinalysis positive nitrate and moderate leukocyte esterase. Case discussed with Dr. Graff, recommends continued IV diuresis and possible thoracentesis if not improved on Tuesday. 11/20 Patient was seen and examined. She reports improvement in her breathing. Currently on 4L NC at 94% at rest. She is negative 1141 cc fluid balance. Weight gain from 90.718 to 92.5kg. Metolazone 5 mg PO QD added yesterday to help diuresis. Continued on Lasix 40 mg IV TID. Possibly thoracentesis tomorrow. BMP shows BUN 19 and glucose 63. 11/21 Patient was seen and examined. She reports improvement in her breathing. Currently on 4L NC at 94% at rest. She is negative 151 cc fluid balance. Weight decreased from 92.5kg to 91.1kg. Metolazone 5 mg PO QD added yesterday to help diuresis. Continued on Lasix 40 mg IV TID. CXR shows improvement in her pleural effusion. Discussed with Dr. Graff, continue IV diuresis, no need for thoracentesis. General: non toxic, no distress, appears at stated age, obese Derm: no unusual rashes/lesions, warm Head: atraumatic, normocephalic, symmetric Eyes: EOMI, no lid lag, anicteric sclera ENT: Nose and ears atraumatic Neck: No cervical lymphadenopathy, trachea midline, supple Cardiovascular: S1S2 reg, no murmur, 1+ bilateral lower extremity pitting edema Lungs: Decreased BS BL, no accessory muscle use Ext: muscle strength 4 out of 5 in all 4 extremities grossly, no gross muscle atrophy, no contractures, Neuro: no gross focal neuro deficits Psych: Alert, oriented, appropriate affect Assessment: Acute on chronic hypoxic respiratory failure in setting of suspected congestive heart failure Advanced chronic COPD C. difficile Chronic conditions: A. fib, type II DM, hypertension, hyperlipidemia, CAD Based on my assessment of this patient, this patient meets a high complexity level of care. Patient has a history of CHF with severe exacerbation or progression of disease which poses a threat to life or bodily function. Acute on chronic hypoxic respiratory failure in setting of suspected congestive heart failure: Lasix 40 mg IV TID. Cardiology on board. Daily BMP as lasix is nephrotoxic. Strict intake/outtake along with daily weights. Advanced chronic COPD: Consult pulmonary. Jaison scheduled and as needed for SOB/wheezing. C. difficile: Continue Vancomycin by mouth. I have reviewed the following art sales consultant notes: Pulmonology note. I have reviewed the results of the following tests: I have ordered the following tests: BMP I have discussed the care of this patient with the following independent historian: I have independently interpreted the following test below: CXR as above. I have discussed the management of this patient with the following physician: Discussed with Dr. Graff as above. Objective - Vital Signs Vital signs: Vital Signs Temp 97.9 F 11/21/22 08:47 Pulse 77 11/21/22 09:21 Resp 18 11/21/22 09:21 BP 127/58 11/21/22 08:47 Pulse Ox 94 L 11/21/22 09:09 FiO2 Intake & Output 11/20/22 11/21/22 11/21/22 18:59 06:59 18:59 Intake Total 358 180 Output Total 704 2 Balance -346 -2 180 Weight 91.1 kg Intake: Oral 358 180 Output: Urine 700 Stool 4 2 Other: Voiding Method Bedside Commode Bedside Commode Bedside Commode External Catheter External Catheter # Bowel Movements 1 - Labs CBC & Chem 7: 11/18/22 06:15 11/20/22 07:28 Labs: Abnormal Lab Results - Last 24 Hours (Table) 11/20/22 11/20/22 Range/Units 11:40 20:36 POC Glucose (mg/dL) 134 H 155 H (70-110) mg/dL
[2022-11-21 11:45] LABS: Glucose,Whole Blood 89 mg/dL (70-110)
[2022-11-21] MEDS: FERROUS SULFATE 325 MG TAB PO SCH (12:22)
--- NOTE | 2022-11-21 12:59 | P.PN ---
Subjective Progress Note Date: 11/21/22 History of present illness: This is a 67 year old female presented to hospital with shortness of breath with history of COPD on home O2, coronary artery disease status post bypass surgery, atrial fibrillation, DM type II, hypertension, hyperlipidemia. An echocardiogram in August of this year revealed normal LV systolic function, moderate pulmonary hypertension, left atrial enlargement. Patient presented with complaints of worsening shortness of breath she had been recently discharged from hospital on November 12 for C. difficile colitis. Patient denies any chest pain. She has been treated for acute exacerbation of chronic diastolic heart failure on Lasix 40 mg IV every 8 hours. Losartan was added ye day to her medication regime. Patient denies having any new concerns today. Heart rate is running in the 70s, blood pressure 110/55, pulse ox 96% on 3 L nasal cannula. Blood work reveals potassium of 3.9, BUN 16 creatinine 0.99. 8/ Patient continues to have lower extremity edema while on Lasix IV 40 every 8 hours. Appears that I&O and daily weights are not accurate. BUN 19 and creatinine 0.95 and potassium 3.6. 11/21 Patient's breathing status appears to be stable. Pulse ox is 94% on 4 L nasal cannula. Weight is down 4 kg from yesterday. She is a negative fluid balance of 348 ML's. Patient has been on IV Lasix 40 g every 8 hours and metolazone 5 mg daily was added 2 days ago. No plan for thoracentesis per pulmonary medicine Physical examination: Gen: This is a 67-year-old female VS: reviewed HEENT: Head is atraumatic, normocephalic. Pupils equal, round. Sclerae is anicteric. NECK: Supple. No JVD. LUNGS: Diminished air entry at the right base. HEART: Regular rate and rhythm. Systolic murmur at the left lower sternal border ABDOMEN: Soft No tenderness. EXTREMITIES: Mild pedal edema. No calf tenderness. Assessment: Acute exacerbation of chronic diastolic heart failure Coronary artery disease status post coronary artery bypass graft Paroxysmal atrial fibrillation Right-sided pleural effusion Plan: Transition IV Lasix to 40 by mouth twice daily with plan for this dose at home, continue metolazone 5 mg daily along with other current cardiac medications Monitor I&O, daily weights, I's and renal function Cardiology is cleared the patient for discharge. Patient may follow-up in the office in one to 2 weeks. Nurse practitioner note has been reviewed, I agree with documented findings and plan of care. Patient was seen and examined. Objective - Vital Signs Vital signs: Vital Signs Temp 97.9 F 11/21/22 08:47 Pulse 77 11/21/22 09:21 Resp 18 11/21/22 09:21 BP 127/58 11/21/22 08:47 Pulse Ox 94 L 11/21/22 09:09 FiO2 Intake & Output 11/20/22 11/21/22 11/21/22 18:59 06:59 18:59 Intake Total 358 180 Output Total 704 2 Balance -346 -2 180 Weight 91.1 kg Intake: Oral 358 180 Output: Urine 700 Stool 4 2 Other: Voiding Method Bedside Commode Bedside Commode Bedside Commode External Catheter External Catheter # Bowel Movements 1 - Labs CBC & Chem 7: 11/18/22 06:15 11/20/22 07:28 Labs: Abnormal Lab Results - Last 24 Hours (Table) 11/20/22 11/20/22 Range/Units 11:40 20:36 POC Glucose (mg/dL) 134 H 155 H (70-110) mg/dL
[2022-11-21 16:13] LABS: African American GFR (CKD) 57 (>60 ml/min/1.73 sqM); Anion Gap 7 mmol/L; Blood Urea Nitrogen 27 mg/dL (7-17); Calcium 8.5 mg/dL (8.4-10.2); Carbon Dioxide 29 mmol/L (22-30); Chloride 98 mmol/L (98-107); Glucose 91 mg/dL (74-99); Non-African American GFR(CKD) 50 (>60 ml/min/1.73 sqM); Potassium 3.9 mmol/L (3.5-5.1); Sodium 134 mmol/L (137-145)
[2022-11-21 16:30] LABS: Glucose,Whole Blood 84 mg/dL (70-110)
[2022-11-21 20:13] LABS: Glucose,Whole Blood 175 mg/dL (70-110)
[2022-11-21] MEDS: INSULIN DETEMIR (LEVEMIR) 100 UNIT/ML SYR SQ SCH (20:38)
[2022-11-21] MEDS: ATORVASTATIN 40 MG TAB PO SCH (20:38)
[2022-11-21] MEDS: MONTELUKAST 10 MG TAB PO SCH (20:38)
[2022-11-21] MEDS: HYDROcodone/APAP 10-325MG 1 EACH TAB PO PRN (20:39)
[2022-11-21] MEDS: ACETAMINOPHEN TAB 500 MG TAB PO PRN (23:25)
[2022-11-22 05:50] LABS: Glucose,Whole Blood 74 mg/dL (70-110)
[2022-11-22] MEDS: SYMBICORT 160-4.5 MCG INHALER INHALATION SCH (08:10)
[2022-11-22] MEDS: IPRATROPIUM-ALBUTEROL 3 ML NEB INHALATION SCH ×2 (08:10→12:51)
[2022-11-22] MEDS ORDERED: APIXABAN 5 MG TAB PO SCH (09:00)
[2022-11-22] MEDS ORDERED: FUROSEMIDE 40 MG TAB PO SCH (09:00)
[2022-11-22 09:43] VITALS: RESP 19; TEMP 97.2
[2022-11-22] MEDS: LETROZOLE 2.5 MG TAB PO SCH (09:45)
[2022-11-22] MEDS: METOPROLOL TARTRATE 50 MG TAB PO SCH (09:45)
[2022-11-22] MEDS: CHOLECALCIFEROL 125 MCG (5000 IU) TABLET PO SCH (09:45)
[2022-11-22] MEDS: DULoxetine HCL 60 MG CAPSULE.DR PO SCH (09:45)
[2022-11-22] MEDS: LOSARTAN 25 MG TAB PO SCH (09:45)
[2022-11-22] MEDS: GABAPENTIN 300 MG CAP PO SCH (09:45)
[2022-11-22] MEDS: AMIODARONE 200 MG TAB PO SCH (09:45)
[2022-11-22] MEDS: amLODIPine 5 MG TAB PO SCH (09:45)
[2022-11-22] MEDS: metOLazone 5 MG TAB PO SCH (09:46)
--- NOTE | 2022-11-22 10:24 | P.PN ---
Subjective HISTORY OF PRESENT ILLNESS: This is a 67 year old female presented to hospital with shortness of breath with history of COPD on home O2, coronary artery disease status post bypass surgery, atrial fibrillation, DM type II, hypertension, hyperlipidemia. An echocardiogram in August of this year revealed normal LV systolic function, moderate pulmonary hypertension, left atrial enlargement. Patient presented with complaints of worsening shortness of breath she had been recently discharged from hospital on November 12 for C. difficile colitis. Patient denies any chest pain. She has been treated for acute exacerbation of chronic diastolic heart failure on Lasix 40 mg IV every 8 hours. Losartan was added yesterday to her medication regime. Patient denies having any new concerns today. Heart rate is running in the 70s, blood pressure 110/55, pulse ox 96% on 3 L nasal cannula. Blood work reveals potassium of 3.9, BUN 16 creatinine 0.99. 8 Patient continues to have lower extremity edema while on Lasix IV 40 every 8 hours. Appears that I&O and daily weights are not accurate. BUN 19 and creatinine 0.95 and potassium 3.6. 11/21 Patient's breathing status appears to be stable. Pulse ox is 94% on 4 L nasal cannula. Weight is down 4 kg from yesterday. She is a negative fluid balance of 348 ML's. Patient has been on IV Lasix 40 g every 8 hours and metolazone 5 mg daily was added 2 days ago. No plan for thoracentesis per pulmonary medicine 11/22/2022 Patient examined this morning at the bedside. Patient denies chest pain or pressure. She currently denies shortness of breath. She states if she takes her oxygen off she does get short of breath. She reports that she wears oxygen at home. She has been transitioned to oral Lasix. Vital signs are stable. PHYSICAL EXAM: VITAL SIGNS: Reviewed. GENERAL: Well-developed in no acute distress. NECK: Supple. No JVD or thyromegaly LUNGS: Respirations even and unlabored. Lungs essentially clear to auscultation bilaterally. HEART: Regular rate and rhythm. S1 and S2 heard. + systolic murmur EXTREMITIES: Normal range of motion. No clubbing or cyanosis. Peripheral pulses intact. 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 Signing provider agrees with the documented findings, assessment, and plan of care. Objective - Vital Signs Vital signs: Vital Signs Temp 97.2 F L 11/22/22 09:43 Pulse 66 11/22/22 09:43 Resp 19 11/22/22 09:43 BP 103/50 11/22/22 09:43 Pulse Ox 91 L 11/22/22 09:43 FiO2 Intake & Output 11/21/22 11/22/22 11/22/22 18:59 06:59 18:59 Intake Total 780 180 Output Total 1002 600 Balance -222 -600 180 Weight 91.5 kg Intake: Oral 780 180 Output: Urine 1000 600 Stool 2 Other: Voiding Method Bedside Commode Bedside Commode Bedside Commode External Catheter External Catheter # Voids 1 # Bowel Movements 1 1 - Labs CBC & Chem 7: 11/18/22 06:15 11/21/22 15:36 Labs: Abnormal Lab Results - Last 24 Hours (Table) 11/21/22 11/21/22 Range/Units 15:36 20:12 Sodium 134 L (137-145) mmol/L BUN 27 H (7-17) mg/dL Creatinine 1.13 H (0.52-1.04) mg/dL POC Glucose (mg/dL) 175 H (70-110) mg/dL
[2022-11-22 11:27] LABS: Glucose,Whole Blood 116 mg/dL (70-110)
[2022-11-22 11:48] LABS: African American GFR (CKD) 53 (>60 ml/min/1.73 sqM); Anion Gap 8 mmol/L; Blood Urea Nitrogen 33 mg/dL (7-17); Calcium 8.5 mg/dL (8.4-10.2); Carbon Dioxide 29 mmol/L (22-30); Chloride 97 mmol/L (98-107); Glucose 122 mg/dL (74-99); Non-African American GFR(CKD) 46 (>60 ml/min/1.73 sqM); Potassium 4.1 mmol/L (3.5-5.1); Sodium 134 mmol/L (137-145)
[2022-11-22 11:55] VITALS: BP 105/57
[2022-11-22] MEDS: FERROUS SULFATE 325 MG TAB PO SCH (11:58)
[2022-11-22] MEDS: ACETAMINOPHEN TAB 500 MG TAB PO PRN (11:58)
--- NOTE | 2022-11-22 12:51 | P.DS ---
Providers Date of admission: 11/17/22 20:04 Expected date of discharge: 11/22/22 Attending physician: Mary Sinclair MD Consults: 11/17/22 20:04 Consult Physician Routine Consulting Provider: [facility] Consult Reason/Comments: Acute pulmonary edema Do you want consulting provider notified?: Yes 11/18/22 17:13 Consult Physician Routine Consulting Provider: Paloma Graff Consult Reason/Comments: COPD Do you want consulting provider notified?: Yes, Notify in am Primary care physician: Teja Lozano MD Hospital Course: Patient is a 58-year-old female with a PMH of COPD with chronic hypoxic respiratory failure on 2 L is a cannula oxygen at home, CAD status post CABG, A. fib on Eliquis, type II DM, hypertension, and hyperlipidemia who presents to the emergency room with complaints of gradually worsening shortness of breath and lower extremity edema. The patient reports that her symptoms have been gradually worsening over the past 1 week. Of note, the patient was recently discharged from the hospital on 11/12 when she was hospitalized for a C. diff infection. The patient denied experiencing chest discomfort, nausea, vomiting, diaphoresis, fever, chills. In the emergency room, chest x-ray revealed a moderate right and minimal left- sided pleural effusion with findings consistent for volume overload. EKG revealed sinus bradycardia at 59 bpm with right bundle branch block as reviewed by me. Laboratory evaluation was remarkable for troponin less than 0.012, proBNP 1490. The patient's SpO2 in the emergency room upon arrival was 91% on 4 L is a cannula oxygen. 11/18 Patient was seen and examined. No acute events overnight. Currently on 4L saturating low 90s. She reports 20% improvement in her breathing. Complains of incomplete bladder emptying. Currently on treatment for C. diff. Cardiology saw the patient and she is currently on Lasix 40 mg IV TID. CBC shows hemoglobin of 11 and platelet count 148. BMP is unremarkable. 11/19 Patient was seen and examined. She reports slight improvement in her breathing. Currently on 5L NC at 89% at rest. She is negative 1141 cc fluid balance. Weight gain from 90.718 to 92.5kg. BMP shows a bicarb of 21 and glucose 107. Urinalysis positive nitrate and moderate leukocyte esterase. Case discussed with Dr. Graff, recommends continued IV diuresis and possible thoracentesis if not improved on Tuesday. 11/20 Patient was seen and examined. She reports improvement in her breathing. Currently on 4L NC at 94% at rest. She is negative 1141 cc fluid balance. Weight gain from 90.718 to 92.5kg. Metolazone 5 mg PO QD added yesterday to help diuresis. Continued on Lasix 40 mg IV TID. Possibly thoracentesis tomorrow. BMP shows BUN 19 and glucose 63. 11/21 Patient was seen and examined. She reports improvement in her breathing. Currently on 4L NC at 94% at rest. She is negative 151 cc fluid balance. Weight decreased from 92.5kg to 91.1kg. Metolazone 5 mg PO QD added yesterday to help diuresis. Continued on Lasix 40 mg IV TID. CXR shows improvement in her pleural effusion. Discussed with Dr. Graff, continue IV diuresis, no need for thoracentesis. 11/22 Patient was seen and examined. Breathing is stable. She has completed 10 days of Vancomycin, antibiotics will be discontinued.She is negative 348 cc fluid blance. Weight stable at 91.5kg. Cardiology has cleared the patient for discharge on oral Lasix and Metolazone. She is advised to follow up with Cardiology and Pulmonology within 1 week of discharge. Patient verbalized understanding of the plan. Pertinent studies and procedures as above. General: non toxic, no distress, appears at stated age, obese Derm: no unusual rashes/lesions, warm Head: atraumatic, normocephalic, symmetric Eyes: EOMI, no lid lag, anicteric sclera ENT: Nose and ears atraumatic Neck: No cervical lymphadenopathy, trachea midline, supple Cardiovascular: S1S2 reg, no murmur, 1+ bilateral lower extremity pitting edema Lungs: Decreased BS BL, no accessory muscle use Ext: muscle strength 4 out of 5 in all 4 extremities grossly, no gross muscle atrophy, no contractures, Neuro: no gross focal neuro deficits Psych: Alert, oriented, appropriate affect Discharge diagnosis: Acute on chronic hypoxic respiratory failure in setting of suspected congestive heart failure Acute kidney injury Advanced chronic COPD C. difficile Chronic conditions: A. fib, type II DM, hypertension, hyperlipidemia, CAD This complex discharge took 35 minutes to complete. Patient Condition at Discharge: Stable Plan - Discharge Summary New Discharge Prescriptions: New Furosemide [Lasix] 40 mg PO BID@0900,1600 #60 tab metOLazone [Zaroxolyn] 5 mg PO DAILY #30 tab Losartan [Cozaar] 25 mg PO DAILY #30 tab Continue Omeprazole [PriLOSEC] 20 mg PO DAILY DULoxetine HCL [Cymbalta] 60 mg PO HS Atorvastatin [Lipitor] 40 mg PO HS Metoprolol Tartrate [Lopressor] 50 mg PO BID Budesonide-Formot 160-4.5 Mcg [Symbicort 160-4.5 Mcg Inhaler] 2 puff INHALATION RT-BID Letrozole [Femara] 2.5 mg PO DAILY Biotin [Biotin Disolve] 10,000 mcg PO DAILY Cholecalciferol [Vitamin D3 (125 Mcg = 5000 Iu)] 125 mcg PO DAILY Cyanocobalamin (Vitamin B-12) [Vitamin B-12] 2,000 mcg PO DAILY HYDROcodone/APAP 10-325MG [[place] 10-325] 1 tab PO Q6H PRN PRN Reason: Pain Apixaban [Eliquis] 5 mg PO BID Albuterol Inhaler [Ventolin Hfa Inhaler] 2 puff INHALATION RT-Q6H PRN PRN Reason: Shortness Of Breath Ubidecarenone [Co Q-10] 200 mg PO DAILY Montelukast [Singulair] 10 mg PO HS Gabapentin 600 mg PO TID Ferrous Sulfate [Iron (65 MG Elemental)] 325 mg PO W/LUNCH #60 tab Ascorbic Acid [Vitamin C] 250 mg PO DAILY #60 tab Amiodarone [Cordarone] 200 mg PO BID amLODIPine [Norvasc] 5 mg PO BID Insulin Glargine-Yfgn [Semglee (Yfgn) Pen] 30 units SQ HS Ondansetron Odt [Zofran ODT] 4 mg PO Q8HR PRN #30 tab PRN Reason: Nausea And Vomiting Discontinued Furosemide [Lasix] 30 mg PO DAILY Vancomycin 125 mg PO QID 9 Days #36 cap Discharge Medication List Atorvastatin [Lipitor] 40 mg PO HS 03/23/16 [History] DULoxetine HCL [Cymbalta] 60 mg PO HS 03/23/16 [History] Metoprolol Tartrate [Lopressor] 50 mg PO BID 03/23/16 [History] Omeprazole [PriLOSEC] 20 mg PO DAILY 03/23/16 [History] Montelukast [Singulair] 10 mg PO HS 05/18/21 [History] Ubidecarenone [Co Q-10] 200 mg PO DAILY 05/18/21 [History] Gabapentin 600 mg PO TID 06/29/21 [History] Budesonide-Formot 160-4.5 Mcg [Symbicort 160-4.5 Mcg Inhaler] 2 puff INHALATION RT-BID 04/06/22 [History] Biotin [Biotin Disolve] 10,000 mcg PO DAILY 09/03/22 [History] Letrozole [Femara] 2.5 mg PO DAILY 09/03/22 [History] Apixaban [Eliquis] 5 mg PO BID 09/06/22 [History] Cholecalciferol [Vitamin D3 (125 Mcg = 5000 Iu)] 125 mcg PO DAILY 09/06/22 [History] Cyanocobalamin (Vitamin B-12) [Vitamin B-12] 2,000 mcg PO DAILY 09/06/22 [Hist ory] HYDROcodone/APAP 10-325MG [[place] 10-325] 1 tab PO Q6H PRN 09/06/22 [History] Ascorbic Acid [Vitamin C] 250 mg PO DAILY #60 tab 09/09/22 [Rx] Ferrous Sulfate [Iron (65 MG Elemental)] 325 mg PO W/LUNCH #60 tab 09/09/22 [Rx] Albuterol Inhaler [Ventolin Hfa Inhaler] 2 puff INHALATION RT-Q6H PRN 11/10/22 [History] Amiodarone [Cordarone] 200 mg PO BID 11/10/22 [History] Insulin Glargine-Yfgn [Semglee (Yfgn) Pen] 30 units SQ HS 11/10/22 [History] amLODIPine [Norvasc] 5 mg PO BID 11/10/22 [History] Ondansetron Odt [Zofran ODT] 4 mg PO Q8HR PRN #30 tab 11/11/22 [Rx] Furosemide [Lasix] 40 mg PO BID@0900,1600 #60 tab 11/22/22 [Rx] Losartan [Cozaar] 25 mg PO DAILY #30 tab 11/22/22 [Rx] metOLazone [Zaroxolyn] 5 mg PO DAILY #30 tab 11/22/22 [Rx] Follow up Appointment(s)/Referral(s): Meron Escobar MD [STAFF PHYSICIAN] - 1 Week (Office will call patient with a follow up appointment. ) Teja Lozano MD [Primary Care Provider] - 1-2 days ([facility] will contact patient for follow up appointment.) Paloma Graff MD [STAFF PHYSICIAN] - 12/16/22 9:15 am Patient Instructions/Handouts: Pulmonary Edema (DC), Low-Sodium Diet (DC), Hypoxia (ED) Activity/Diet/Wound Care/Special Instructions: Diet Low salt 1.5L fluid restriction Discharge Disposition: HOME SELF-CARE
[2022-11-22 12:54] VITALS: PULSE 66
--- NOTE | 2022-11-22 15:00 | P.PN ---
Subjective Progress Note Date: 11/22/22 A 67-year-old female patient with multiple medical problems and comorbidities, was known to me and the patient was seen during cardiac hospitalizations for pulmonary complications related to COPD exacerbation and CHF which is essentially no follow diastolic heart failure. She is also known to have warner ry artery disease, previous bypass surgery, hypertension, hyperlipidemia diabetes mellitus type 2. Most recent echocardiogram from 09/15/2022 shows an ejection fraction of 6065%. There is moderate RV dilation, moderate pulmonary hypertension, normal valvular functions. The patient is known to have chronic A. fib. The patient is also known to have history of breast cancer and she has undergone lumpectomy and sentinel lymph node biopsy and she did not require any radiation therapy and the patient was started on antiestrogen treatment. The patient during the earlier hospitalization of 11/04/2022, diagnosed having C. diff and she was discharged home on oral vancomycin 125 mg by mouth 4 times a day. The patient is coming in for worsening shortness of breath. A chest x-ray shows a large right-sided pleural effusion. Her proBNP level was 1490. Troponins were negative. Pulse ox was running low and she was placed on 4 L of oxygen by nasal cannula which is above her usual oxygen requirements which is at 2 L per minute nasal cannula. For that reason, the patient was hospitalized. The patient is currently on Lasix 40 mg IV every 8 hours patient reports some improvement in her shortness of breath since yesterday. She still on vancomycin. No active diarrhea On today's evaluation of 11/20/2022, the patient is eating better. She is diuresing well. She is off anticoagulation for possible thoracentesis of pleural effusion remains unchanged.She is currently on Lasix 40 mg every 8 hours. The fluid balance has been negative. The patient has a BUN of 19 and a creatinine of 0.9. Sodium level is at 137. The patient remains on 4 L of oxygen by nasal cannula with a pulse ox of 94%. The patient is hemodynamically stable. On 11/21/2022, the patient has no specific complaints. The patient reduce excellent amount of urine output and she has diuresed well while being on IV Lasix. She remains on 4 L of oxygen by nasal cannula. Nevertheless,chest x-ray shows no evidence of any pleural effusion. Some limited atelectatic changes in left lung base. As such, the thoracentesis was canceled and the patient was restarted back on anticoagulation. The patient remains on diuretics. She is receiving Lasix 40 mg IV every 8 hours and she is also on Zaroxolyn. She is also on oral vancomycin regarding C. diff colitis and her diarrhea has also subsided. She is hemodynamically stable. No abdominal pain. No nausea or vomiting. The patient is seen today 11/22/2022 in follow-up on the selective care unit. She is currently sitting up in a chair at the bedside. Awake and alert in no acute distress. Denies any worsening shortness of breath, cough or congestion. She is maintaining O2 saturations in the 90s on 4 L/m per nasal cannula. Sodium 134. Potassium 4.1. Bicarb 29. BUN 33. Creatinine 1.21. Glucose 122. She is continued on DuoNeb inhalations, Symbicort, IV diuretics. Anticoagulated with Eliquis. Currently in a -800 ML balance. Remains on oral vancomycin for C. difficile colitis. Diarrhea has subsided. Objective - Vital Signs Vital signs: Vital Signs Temp 97.2 F L 11/22/22 09:43 Pulse 66 11/22/22 13:06 Resp 19 11/22/22 09:43 BP 105/57 11/22/22 11:54 Pulse Ox 91 L 11/22/22 11:54 FiO2 Intake & Output 11/21/22 11/22/22 11/22/22 18:59 06:59 18:59 Intake Total 780 360 Output Total 1002 600 Balance -222 -600 360 Weight 91.5 kg Intake: Oral 780 360 Output: Urine 1000 600 Stool 2 Other: Voiding Method Bedside Commode Bedside Commode Bedside Commode External Catheter External Catheter # Voids 1 # Bowel Movements 1 1 - Exam Gen: A very pleasant 67-year-old female. Up in a chair. In no apparent distress, the patient is currently on 4 L O2 nasal cannula Eyes: PERRL, no scleral injection or icterus HENT: normocephalic, atraumatic, good hearing acuity, moist mucous membranes Neck: no tracheal deviation, full range of motion Resp: The patient diminished breath on the right lung the lung with dullness to percussion consistent with pleural effusion. CVS: good distal perfusion x 4, bilateral 1+ pitting edema GI: soft, NTTP, ND, no hepatosplenomegaly : no suprapubic tenderness, no CVAT, stacy catheter not present MSK: no clubbing, no cyanosis, no noted contractures of extremities Skin: no noted rashes, petechiae; temperature of skin is appropriate Neuro: moving all extremities without signs of weakness, CN II-XII intact Psych: cooperative, euthymic mood, insight and judgment intact - Labs CBC & Chem 7: 11/18/22 06:15 11/22/22 10:52 Labs: Abnormal Lab Results - Last 24 Hours (Table) 11/21/22 11/21/22 11/22/22 Range/Units 15:36 20:12 10:52 Sodium 134 L 134 L (137-145) mmol/L Chloride 97 L (98-107) mmol/L BUN 27 H 33 H (7-17) mg/dL Creatinine 1.13 H 1.21 H (0.52-1.04) mg/dL Glucose 122 H (74-99) mg/dL POC Glucose (mg/dL) 175 H (70-110) mg/dL 11/22/22 Range/Units 11:19 Sodium (137-145) mmol/L Chloride (98-107) mmol/L BUN (7-17) mg/dL Creatinine (0.52-1.04) mg/dL Glucose (74-99) mg/dL POC Glucose (mg/dL) 116 H (70-110) mg/dL Assessment and Plan Assessment: Acute on chronic dyspnea, multifactorial. The patient has background COPD and the patient has also developed enlarging right-sided pleural effusion probably related to decompensated heart failure/CHF. The patient is currently on IV Lasix and she is currently feeling better. The patient is known to have CHF with preserved LV and diastolic heart failure although her most recent echocardiogram showed a preserved LV function with a diastolic pattern that was consistent with her age. She also has moderate degree of pulmonary hypertension and RV dilatation. She is currently on 4 L nasal cannul. She has responded very nicely to the diuretics and the repeat chest x-ray from 11/21/2022 shows no evidence of any pleural effusion. The pleural effusion is essentially recovered and there is no need for thoracentesis at this point in time. Acute on top of chronic hypoxic respiratory failure secondary to diastolic congestive heart failure exacerbation, currently on 4 liters nasal cannula New right pleural effusion, likely secondary to CHF, and the patient has also small left-sided pleural effusion, repeat chest x-ray from 11/21/2022 shows resolution of the right-sided pleural effusion. COPD with upper lobe predominance maintain on Symbicort on outpatient basis Coronary artery disease with previous bypass surgery Paroxysmal A. fib current rhythm is sinus and the patient is admitted on anticoagulants. She has also underlying bundle branch block pattern Hypertension Hyperlipidemia Diabetes mellitus type 2 Right-sided breast cancer with a previous lumpectomy and sentinel lymph node biopsy and the patient is currently on hormonal treatment. Chronic anemia to divulge as of the beginning of the year and hemoglobin is stable for now Chronic back pain with previous back surgery currently maintained on [place] and Neurontin. The patient has undergone a surgery for severe lumbar stenosis L2 through S1 and the patient has undergone laminectomy and facetectomy and foraminotomy with fusion at multiple levels. History of her lumbar wound dehiscence with serous drainage back in June 2022 Previous history of spontaneous pneumothorax on the left History of previous poliomyelitis on the right C. diff colitis currently on oral vancomycin Plan: The patient was seen and evaluated Labs and medications reviewed Cleared for discharge from pulmonary standpoint To be transitioned to oral diuretics To continue her home pulmonary medications, oxygen Follow-up in the office in 1 week I have personally seen and examined the patient, performed the documentation and the assessment and plan as written. Number of minutes spent on the visit: 10.
== END 2022-11-22 13:38 | disposition home or self-care (01) | DRG 291 ==
LOC: EC 13:49 → 3SCARD 20:04
PROVIDERS: ADMIT Internal Medicine; ATTEND Internal Medicine
DX: I11.0 Hypertensive heart disease with heart failure (principal); I50.33 Acute on chronic diastolic (congestive) heart failure; J96.21 Acute and chronic respiratory failure with hypoxia; J44.1 Chronic obstructive pulmonary disease with (acute) exacerbation; N17.9 Acute kidney failure, unspecified; A04.72 Enterocolitis due to Clostridium difficile, not specified as recurrent; I25.10 Atherosclerotic heart disease of native coronary artery without angina pectoris; I27.20 Pulmonary hypertension, unspecified; I45.10 Unspecified right bundle-branch block; I48.0 Paroxysmal atrial fibrillation; G89.29 Other chronic pain; M48.061 Spinal stenosis, lumbar region without neurogenic claudication; G14 Postpolio syndrome; F41.9 Anxiety disorder, unspecified; F32.A Depression, unspecified; E78.5 Hyperlipidemia, unspecified; D64.9 Anemia, unspecified; E11.9 Type 2 diabetes mellitus without complications; Z79.01 Long term (current) use of anticoagulants; I25.2 Old myocardial infarction; Z79.4 Long term (current) use of insulin; Z79.51 Long term (current) use of inhaled steroids; Z79.811 Long term (current) use of aromatase inhibitors; Z79.899 Other long term (current) drug therapy; Z85.3 Personal history of malignant neoplasm of breast; Z86.19 Personal history of other infectious and parasitic diseases; Z95.1 Presence of aortocoronary bypass graft; Z99.81 Dependence on supplemental oxygen; Z88.0 Allergy status to penicillin; Z88.2 Allergy status to sulfonamides; Z88.5 Allergy status to narcotic agent; Z88.8 Allergy status to other drugs, medicaments and biological substances; Z87.891 Personal history of nicotine dependence
CPT/HCPCS: 36415; 71045; 71046; 80048; 80053; 81001; 83605; 83735; 83880; 84484; 85025; 85027; 85610; 85730; 93005; 94640; 94760; 96374; 96376; 99291

== ENCOUNTER 2022-11-29 14:46 | Inpatient (IN) | payer OTHER ==
[2022-11-29] MEDS ORDERED: SODIUM CHLORIDE 0.9% 500 ML 500 ML IV STA (15:23)
--- NOTE | 2022-11-29 15:40 | ED ---
General Adult HPI - General Chief complaint: Shortness of Breath Stated complaint: Hypoxia Time Seen by Provider: 11/29/22 15:10 Source: patient, EMS, RN notes reviewed, old records reviewed Mode of arrival: EMS Limitations: physical limitation - History of Present Illness Initial comments: Patient is a 67-year-old female with past medical history remarkable for atrial fibrillation on blood thinners, CAD, COPD, diabetes, postpolio syndrome who presents emergency Department complaining of weakness, dyspnea for multiple days to weeks. Has no significantly worsening symptoms over the last few days. Seems to be on exertion. Saw her PCP today who said she looked pale and sent her here for possible GI bleed. She is on chronic iron tablets. Normally has diarrhea. States it has been dark red in nature however this is chronic that she is on iron tablets. Denies any hematemesis or hematochezia. Denies any abdominal pain, chest pain, shortness of breath at rest. Denies any fevers, cough. Has no other acute complaints at this time. Presents for further evaluation at this time. Denies any sick contacts. Patient's blood pressure was low at her clinic earlier today as well, with systolics in the 80s. Does have a history of heart failure but denies any worsening or extremity edema, orthopnea, PND. Is chronically on 5-6 L nasal cannula. - Related Data Home Medications Medication Instructions Recorded Confirmed Atorvastatin [Lipitor] 40 mg PO HS 03/23/16 11/29/22 DULoxetine HCL [Cymbalta] 60 mg PO DAILY 03/23/16 11/29/22 Metoprolol Tartrate [Lopressor] 50 mg PO BID 03/23/16 11/29/22 Omeprazole [PriLOSEC] 20 mg PO DAILY 03/23/16 11/29/22 Montelukast [Singulair] 10 mg PO DAILY 05/18/21 11/29/22 Gabapentin 600 mg PO TID 06/29/21 11/29/22 Budesonide-Formot 160-4.5 Mcg 2 puff INHALATION RT-BID 04/06/22 11/29/22 [Symbicort 160-4.5 Mcg Inhaler] Biotin [Biotin Disolve] 10,000 mcg PO DAILY 09/03/22 11/29/22 Letrozole [Femara] 2.5 mg PO DAILY 09/03/22 11/29/22 Apixaban [Eliquis] 5 mg PO BID 09/06/22 11/29/22 Cholecalciferol [Vitamin D3 (125 125 mcg PO DAILY 09/06/22 11/29/22 Mcg = 5000 Iu)] Cyanocobalamin (Vitamin B-12) 2,000 mcg PO DAILY 09/06/22 11/29/22 [Vitamin B-12] HYDROcodone/APAP 10-325MG [Kirksey 1 tab PO Q6H 09/06/22 11/29/22 10-325] Albuterol Inhaler [Ventolin Hfa 2 puff INHALATION RT-QID PRN 11/10/22 11/29/22 Inhaler] Amiodarone [Cordarone] 200 mg PO BID 11/10/22 11/29/22 amLODIPine [Norvasc] 5 mg PO BID 11/10/22 11/29/22 Insulin Glargine,Hum.rec.anlog 30 units SQ HS 11/29/22 11/29/22 [Lantus Solostar Pen] Lactobacillus Acidophilus 1 cap PO DAILY 11/29/22 11/29/22 [Acidophilus Probiotic] Ubidecarenone [Coenzyme Q10] 200 mg PO DAILY 11/29/22 11/29/22 Previous Rx's Medication Instructions Recorded Ascorbic Acid [Vitamin C] 250 mg PO DAILY #60 tab 09/09/22 Ferrous Sulfate [Iron (65 MG 325 mg PO W/LUNCH #60 tab 09/09/22 Elemental)] Ondansetron Odt [Zofran ODT] 4 mg PO Q8HR PRN #30 tab 11/11/22 Furosemide [Lasix] 40 mg PO BID@0900,1600 #60 tab 11/22/22 Losartan [Cozaar] 25 mg PO DAILY #30 tab 11/22/22 metOLazone [Zaroxolyn] 5 mg PO DAILY #30 tab 11/22/22 Allergies Allergy/AdvReac Type Severity Reaction Status Date / Time morphine Allergy rash,itchin Verified 11/29/22 17:54 g Sulfa (Sulfonamide Allergy Rash/Hives Verified 11/29/22 17:54 Antibiotics) amoxicillin [From Augmentin] AdvReac Diarrhea Verified 11/29/22 17:54 clavulanic acid AdvReac Diarrhea Verified 11/29/22 17:54 [From Augmentin] surgical susy AdvReac infection Uncoded 11/29/22 17:54 Review of Systems ROS Statement: Those systems with pertinent positive or pertinent negative responses have been documented in the HPI. Review of Systems: CONST: Denies fever EYES: Denies blurry vision ENT: Denies nasal congestion C/V: Denies Chest pain RESP: Endorses dyspnea GI: Denies abdominal pain : Denies dysuria SKIN: Denies rash. MSK: Denies joint pain. NEURO: Denies headache ROS Other: All systems not noted in ROS Statement are negative. Past Medical History Past Medical History: Atrial Fibrillation, Coronary Artery Disease (CAD), Cancer, COPD, Diabetes Mellitus, GERD/Reflux, Hyperlipidemia Additional Past Medical History / Comment(s): post polio syndrome rt side, neuropathy, hx. spontaneous pneumothorax, bowel resection for sepsis/infection,cut on toe History of Any Multi-Drug Resistant Organisms: ESBL Date of last positivie culture/infection: 06/29/21 MDRO Source:: ESBL BACK Past Surgical History: Back Surgery, Bowel Resection, Breast Surgery, Cholecystectomy, Coronary Bypass/CABG, Ear Surgery, Tonsillectomy Additional Past Surgical History / Comment(s): triple bypass 2013, left salpingo-oophorectomy, laminectomy L4 L5x3, ear surgery x 3 Past Anesthesia/Blood Transfusion Reactions: No Reported Reaction Past Psychological History: Anxiety, Depression Smoking Status: Former smoker Past Alcohol Use History: Occasional Past Drug Use History: None Reported - Past Family History Mother Family Medical History: Cancer General Exam - General Exam Comments Initial Comments: General: Appears in no acute distress. HEAD: Normal with no signs of head trauma. EYES: PERRLA, EOMI, conjunctiva normal, no discharge. ENT: Hearing grossly intact, normal oropharynx. RESPIRATORY: Clear breath sounds bilaterally. No wheezes, rales, or rhonchi. C/V: Regular rate and rhythm. S1 and S2 auscultated, minimal bilateral symmetrical pitting edema, peripheral pulses 2+ and intact throughout ABD: Abd is soft, nontender, nondistended EXT: Normal range of motion, no obvious deformity SKIN: No rashes or lesions observed on exposed skin. NEURO: Alert and oriented 4. No focal deficits. Limitations: physical limitation Course Vital Signs 11/29/22 11/29/22 11/29/22 15:09 16:32 18:12 Temperature 97.0 F L Pulse Rate 57 L 52 L 56 L Respiratory 20 20 18 Rate Blood Pressure 92/44 111/76 105/74 O2 Sat by Pulse 92 L 92 L 92 L Oximetry Medical Decision Making - Medical Decision Making Was pt. sent in by a medical professional or institution (, PA, FINISHER ACCORDION, urgent care, hospital, or prison...) When possible be specific @ -No Did you speak to anyone other than the patient for history (EMS, parent, family, police, friend...)? What history was obtained from this source @ -No Did you review nursing and triage notes (agree or disagree)? Why? @ -I reviewed and agree with nursing and triage notes Were old charts reviewed (outside hosp., previous admission, EMS record, old EKG, old radiological studies, urgent care reports/EKG's, prison records)? Report findings @ -Prior chart reviewed from 11/17/2022. Differential Diagnosis (chest pain, altered mental status, abdominal pain women, abdominal pain men, vaginal bleeding, weakness, fever, dyspnea, syncope, headache, dizziness, GI bleed, back pain, seizure, CVA, palpatations, mental health, musculoskeletal)? @ -Differential Weakness: Hypoglycemia, shock, sepsis, hyponatremia, anemia, infection, IL, ETOH, adverse medicine reaction, overdose, stroke, this is not meant to be an all-inclusive list. EKG interpreted by me (3pts min.). @ -As above X-rays interpreted by me (1pt min.). @ -Chest x-ray shows findings concerning for bilateral pulmonary vascular congestion. CT interpreted by me (1pt min.). @ -None done U/S interpreted by me (1pt. min.). @ -None done What testing was considered but not performed or refused? (CT, X-rays, U/S, labs)? Why? @ -None What meds were considered but not given or refused? Why? @ -None Did you discuss the management of the patient with other professionals (professionals i.e. , PA, FINISHER ACCORDION, lab, RT, psych nurse, director of social media marketing, table hand, teacher, air antisubmarine officer, pillowcase sewer)? Give summary @ -Discussed with the admitting physician, Dr. Patton who accepted the pat ient. Was smoking cessation discussed for >3mins.? @ -No Was critical care preformed (if so, how long)? @ -No Were there social determinants of health that impacted care today? How? (Homelessness, low income, unemployed, alcoholism, drug addiction, transportation, low edu. Level, literacy, decrease access to med. care, fci, rehab)? @ -No Was there de-escalation of care discussed even if they declined (Discuss DNR or withdrawal of care, Hospice)? DNR status @ -No What co-morbidities impacted this encounter? (DM, HTN, Smoking, COPD, CAD, Cancer, CVA, ARF, Chemo, Hep., AIDS, mental health diagnosis, sleep apnea, morbid obesity)? @ -None Was patient admitted / discharged? Hospital course, mention meds given and route, prescriptions, significant lab abnormalities, going to OR and other pertinent info. @ -Based on the patient's presentation physical exam, presents with weakness. Has been ongoing. Was recently evaluated here for similar complaints. Was admitted and diagnosed with mild pulmonary edema. Presents for further evaluation at this time. Patient's PCP is concerned for possible anemia as she is on blood thinners and they said she appeared pale. Presents for further workup. Symptoms have been ongoing since she was last year. Denies any obvious bleeding. Therefore we will obtain weakness labs. Does not have any obvious GI bleed at this time. Patient was in agreement this plan. She'll be given a small fluid bolus and she is mildly hypotensive. EKG shows no signs of acute ischemia. Patient's labs are remarkable for a chronic mild anemia of 10.7 which appears stable when compared to prior ones. Patient's hypokalemia at 3.3 as well as an VALENTINA on CK D. Patient is hypoglycemic given sugar. BNP is elevated above her typical baseline.Chest x-ray shows bilateral pulmonary vascular congestion. Remainder the patient's labs are within acceptable limits. I discussed results with the patient. Vital signs are within acceptable limits at this time. I'm concerned for CHF exacerbation. Does not appear to be anemia. She was in agreement with this assessment. She'll be started on IV Lasix and we will have cardiology evaluate patient in the morning. I spoke with the admitting physician, Dr. Patton the [facility] as the patient was just discharged one week ago from their service who accepted the patient. Undiagnosed new problem with uncertain prognosis? @ -No Drug Therapy requiring intensive monitoring for toxicity (Heparin, Nitro, Insulin, Cardizem)? @ -No Were any procedures done? @ -No Diagnosis/symptom? @ -Heart failure exacerbation, chronic hypoxic respiratory failure Acute, or Chronic, or Acute on Chronic? @ -Acute and chronic Uncomplicated (without systemic symptoms) or Complicated (systemic symptoms)? @ -Compensated Side effects of treatment? @ -none Exacerbation, Progression, or Severe Exacerbation] @ -Exacerbation Poses a threat to life or bodily function? @ -Yes Diagnosis/symptom? @ -VALENTINA on CK D Acute, or Chronic, or Acute on Chronic? @ -Acute on chronic Uncomplicated (without systemic symptoms) or Complicated (systemic symptoms)? @ -Uncomplicated Side effects of treatment? @ -none Exacerbation, Progression, or Severe Exacerbation] @ -no Poses a threat to life or bodily function? @ -Potentially, yes - Lab Data Result diagrams: 11/29/22 15:28 11/29/22 15:28 Lab Results 11/29/22 11/29/22 11/29/22 Range/Units 15:28 15:28 15:28 WBC 10.6 (3.8-10.6) k/uL RBC 3.77 L (3.80-5.40) m/uL Hgb 10.7 L (11.4-16.0) gm/dL Hct 32.9 L (34.0-46.0) % MCV 87.4 (80.0-100.0) fL MCH 28.3 (25.0-35.0) pg MCHC 32.4 (31.0-37.0) g/dL RDW 19.9 H (11.5-15.5) % Plt Count 183 (150-450) k/uL MPV 9.8 Neutrophils % 76 % Lymphocytes % 11 % Monocytes % 8 % Eosinophils % 2 % Basophils % 0 % Neutrophils # 8.1 H (1.3-7.7) k/uL Lymphocytes # 1.2 (1.0-4.8) k/uL Monocytes # 0.9 (0-1.0) k/uL Eosinophils # 0.2 (0-0.7) k/uL Basophils # 0.0 (0-0.2) k/uL Hypochromasia Slight Anisocytosis Slight Microcytosis Slight PT 13.5 H (9.0-12.0) sec INR 1.3 H (<1.2) APTT 28.8 (22.0-30.0) sec Sodium (137-145) mmol/L Potassium (3.5-5.1) mmol/L Chloride (98-107) mmol/L Carbon Dioxide (22-30) mmol/L Anion Gap mmol/L BUN (7-17) mg/dL Creatinine (0.52-1.04) mg/dL Est GFR (CKD-EPI)AfAm (>60 ml/min/1.73 sqM) Est GFR (CKD-EPI)NonAf (>60 ml/min/1.73 sqM) Glucose (74-99) mg/dL Plasma Lactic Acid West (0.7-2.0) mmol/L Calcium (8.4-10.2) mg/dL Magnesium (1.6-2.3) mg/dL Total Bilirubin (0.2-1.3) mg/dL AST (14-36) U/L ALT (4-34) U/L Alkaline Phosphatase (38-126) U/L Troponin I (0.000-0.034) ng/mL NT-Pro-B Natriuret Pep pg/mL Total Protein (6.3-8.2) g/dL Albumin (3.5-5.0) g/dL Urine Color Yellow Urine Appearance Cloudy H (Clear) Urine pH 7.0 (5.0-8.0) Ur Specific [place] 1.014 (1.001-1.035) Urine Protein 1+ H (Negative) Urine Glucose (UA) Negative (Negative) Urine Ketones Negative (Negative) Urine Blood Large H (Negative) Urine Nitrite Negative (Negative) Urine Bilirubin Negative (Negative) Urine Urobilinogen <2.0 (<2.0) mg/dL Ur Leukocyte Esterase Large H (Negative) Urine RBC 34 H (0-5) /hpf Urine WBC 94 H (0-5) /hpf Ur Squamous Epith Cells 1 (0-4) /hpf Urine Bacteria Moderate H (None) /hpf Hyaline Casts 50 H (0-2) /lpf Urine Mucus Rare H (None) /hpf Influenza Type A (PCR) (Not Detectd) Influenza Type B (PCR) (Not Detectd) RSV (PCR) (Not Detectd) SARS-CoV-2 (PCR) (Not Detectd) 11/29/22 11/29/22 11/29/22 Range/Units 15:28 15:28 15:28 WBC (3.8-10.6) k/uL RBC (3.80-5.40) m/uL Hgb (11.4-16.0) gm/dL Hct (34.0-46.0) % MCV (80.0-100.0) fL MCH (25.0-35.0) pg MCHC (31.0-37.0) g/dL RDW (11.5-15.5) % Plt Count (150-450) k/uL MPV Neutrophils % % Lymphocytes % % Monocytes % % Eosinophils % % Basophils % % Neutrophils # (1.3-7.7) k/uL Lymphocytes # (1.0-4.8) k/uL Monocytes # (0-1.0) k/uL Eosinophils # (0-0.7) k/uL Basophils # (0-0.2) k/uL Hypochromasia Anisocytosis Microcytosis PT (9.0-12.0) sec INR (<1.2) APTT (22.0-30.0) sec Sodium 135 L (137-145) mmol/L Potassium 3.3 L (3.5-5.1) mmol/L Chloride 98 (98-107) mmol/L Carbon Dioxide 28 (22-30) mmol/L Anion Gap 9 mmol/L BUN 50 H (7-17) mg/dL Creatinine 1.89 H (0.52-1.04) mg/dL Est GFR (CKD-EPI)AfAm 31 (>60 ml/min/1.73 sqM) Est GFR (CKD-EPI)NonAf 27 (>60 ml/min/1.73 sqM) Glucose 69 L (74-99) mg/dL Plasma Lactic Acid West 1.8 (0.7-2.0) mmol/L Calcium 8.7 (8.4-10.2) mg/dL Magnesium 1.9 (1.6-2.3) mg/dL Total Bilirubin 0.7 (0.2-1.3) mg/dL AST 90 H (14-36) U/L ALT 39 H (4-34) U/L Alkaline Phosphatase 129 H (38-126) U/L Troponin I <0.012 (0.000-0.034) ng/mL NT-Pro-B Natriuret Pep 2320 pg/mL Total Protein 6.2 L (6.3-8.2) g/dL Albumin 3.1 L (3.5-5.0) g/dL Urine Color Urine Appearance (Clear) Urine pH (5.0-8.0) Ur Specific [place] (1.001-1.035) Urine Protein (Negative) Urine Glucose (UA) (Negative) Urine Ketones (Negative) Urine Blood (Negative) Urine Nitrite (Negative) Urine Bilirubin (Negative) Urine Urobilinogen (<2.0) mg/dL Ur Leukocyte Esterase (Negative) Urine RBC (0-5) /hpf Urine WBC (0-5) /hpf Ur Squamous Epith Cells (0-4) /hpf Urine Bacteria (None) /hpf Hyaline Casts (0-2) /lpf Urine Mucus (None) /hpf Influenza Type A (PCR) (Not Detectd) Influenza Type B (PCR) (Not Detectd) RSV (PCR) (Not Detectd) SARS-CoV-2 (PCR) (Not Detectd) 11/29/22 Range/Units 15:28 WBC (3.8-10.6) k/uL RBC (3.80-5.40) m/uL Hgb (11.4-16.0) gm/dL Hct (34.0-46.0) % MCV (80.0-100.0) fL MCH (25.0-35.0) pg MCHC (31.0-37.0) g/dL RDW (11.5-15.5) % Plt Count (150-450) k/uL MPV Neutrophils % % Lymphocytes % % Monocytes % % Eosinophils % % Basophils % % Neutrophils # (1.3-7.7) k/uL Lymphocytes # (1.0-4.8) k/uL Monocytes # (0-1.0) k/uL Eosinophils # (0-0.7) k/uL Basophils # (0-0.2) k/uL Hypochromasia Anisocytosis Microcytosis PT (9.0-12.0) sec INR (<1.2) APTT (22.0-30.0) sec Sodium (137-145) mmol/L Potassium (3.5-5.1) mmol/L Chloride (98-107) mmol/L Carbon Dioxide (22-30) mmol/L Anion Gap mmol/L BUN (7-17) mg/dL Creatinine (0.52-1.04) mg/dL Est GFR (CKD-EPI)AfAm (>60 ml/min/1.73 sqM) Est GFR (CKD-EPI)NonAf (>60 ml/min/1.73 sqM) Glucose (74-99) mg/dL Plasma Lactic Acid West (0.7-2.0) mmol/L Calcium (8.4-10.2) mg/dL Magnesium (1.6-2.3) mg/dL Total Bilirubin (0.2-1.3) mg/dL AST (14-36) U/L ALT (4-34) U/L Alkaline Phosphatase (38-126) U/L Troponin I (0.000-0.034) ng/mL NT-Pro-B Natriuret Pep pg/mL Total Protein (6.3-8.2) g/dL Albumin (3.5-5.0) g/dL Urine Color Urine Appearance (Clear) Urine pH (5.0-8.0) Ur Specific [place] (1.001-1.035) Urine Protein (Negative) Urine Glucose (UA) (Negative) Urine Ketones (Negative) Urine Blood (Negative) Urine Nitrite (Negative) Urine Bilirubin (Negative) Urine Urobilinogen (<2.0) mg/dL Ur Leukocyte Esterase (Negative) Urine RBC (0-5) /hpf Urine WBC (0-5) /hpf Ur Squamous Epith Cells (0-4) /hpf Urine Bacteria (None) /hpf Hyaline Casts (0-2) /lpf Urine Mucus (None) /hpf Influenza Type A (PCR) Not Detected (Not Detectd) Influenza Type B (PCR) Not Detected (Not Detectd) RSV (PCR) Not Detected (Not Detectd) SARS-CoV-2 (PCR) Not Detected (Not Detectd) - EKG Data -: EKG Interpreted by Me EKG Comments: 12-lead Electrocardiogram Interpretation Note EKG was reviewed and interpreted by myself. 12-lead ECG performed at 1539 is interpreted by me as revealing uncertain rhythm however appears to be slow A. fib with right bundle-branch block morphology at a rate of 52 beats per minute. Right axis deviation. QRS duration is 165 ms, QTc is 515 ms.. There were no acute ST or T wave abnormalities to suggest myocardial ischemia or injury. R wave progression across the precordium was satisfactory. By my interpretation this EKG is non-diagnostic for acute ischemia. When compared with EKG from November 17, 2022, no smoking change. Disposition Clinical Impression: Congestive heart failure, Acute kidney injury superimposed on CKD, Chronic respiratory failure with hypoxia Disposition: ADMITTED IP TO THIS HOSP Condition: Stable Time of Disposition: 17:20
[2022-11-29 16:05] LABS: Anisocytosis Slight; Basophils % (A) 0 %; Eosinophils # (A) 0.2 k/uL (0-0.7); Eosinophils % (A) 2 %; HCT 32.9 % (34.0-46.0); HGB 10.7 gm/dL (11.4-16.0); Hypochromasia Slight; Lymphocytes # (A) 1.2 k/uL (1.0-4.8); Lymphocytes % (A) 11 %; MCH 28.3 pg (25.0-35.0); MCHC 32.4 g/dL (31.0-37.0); MCV 87.4 fL (80.0-100.0); Mean Platelet Volume 9.8; Microcytosis Slight; Monocytes # (A) 0.9 k/uL (0-1.0); Monocytes % (A) 8 %; Neutrophils # (A) 8.1 k/uL (1.3-7.7); Neutrophils % (A) 76 %; Platelet Count 183 k/uL (150-450); RBC 3.77 m/uL (3.80-5.40); RDW 19.9 % (11.5-15.5); WBC 10.6 k/uL (3.8-10.6)
[2022-11-29 16:16] LABS: ALT 39 U/L (4-34); AST 90 U/L (14-36); African American GFR (CKD) 31 (>60 ml/min/1.73 sqM); Albumin 3.1 g/dL (3.5-5.0); Alkaline Phosphatase 129 U/L (38-126); Anion Gap 9 mmol/L; Blood Urea Nitrogen 50 mg/dL (7-17); Calcium 8.7 mg/dL (8.4-10.2); Carbon Dioxide 28 mmol/L (22-30); Chloride 98 mmol/L (98-107); Glucose 69 mg/dL (74-99); INR 1.3 (<1.2); Magnesium 1.9 mg/dL (1.6-2.3); Non-African American GFR(CKD) 27 (>60 ml/min/1.73 sqM); Partial Thromboplastin Time 28.8 sec (22.0-30.0); Potassium 3.3 mmol/L (3.5-5.1); Prothrombin Time 13.5 sec (9.0-12.0); Sodium 135 mmol/L (137-145); Total Bilirubin 0.7 mg/dL (0.2-1.3); Total Protein 6.2 g/dL (6.3-8.2)
[2022-11-29 16:26] LABS: NT-Pro-B-Type Natriuretic Pept 2320 pg/mL
--- NOTE | 2022-11-29 16:59 | XR ---
EXAMINATION TYPE: XR chest 2V DATE OF EXAM: 11/29/2022 4:52 PM COMPARISON: Chest radiographs from TECHNIQUE: XR chest 2V Frontal and lateral views of the chest. CLINICAL INDICATION:Female, 67 years old with history of Weakness; FINDINGS: Lungs/Pleura: There is no evidence of pleural effusion, focal consolidation, or pneumothorax. Pulmonary vascularity: Unremarkable. Heart/mediastinum: Cardiomediastinal silhouette is prominent in size. Musculoskeletal: No acute osseous pathology. Midline sternotomy wires are noted. Lines/Tubes: Electric leads project over the spine. IMPRESSION: Low lung volumes with a generalized hazy appearance which could represent atelectasis versus pulmonar y edema correlate with serum BNP.
[2022-11-29] MEDS ORDERED: FUROSEMIDE 10 MG/ML 4 ML VIAL IV STA (17:26)
[2022-11-29] MEDS ORDERED: NALOXONE 0.4 MG/ML 1 ML VIAL IV PRN (17:46)
[2022-11-29 18:49] LABS: Appearance,Urine Cloudy (Clear); Bacteria,Urine Moderate /hpf; Bilirubin,Urine Negative (Negative); Blood,Urine Large (Negative); Glucose,Urine (UA) Negative (Negative); Hyaline Casts,Urine 50 /lpf (0-2); Ketones,Urine Negative (Negative); Leukocyte Esterase,Urine Large (Negative); Mucus,Urine Rare /hpf; Nitrite,Urine Negative (Negative); Protein,Urine 1+ (Negative); RBC,Urine 34 /hpf (0-5); Specific Gravity,Urine 1.014 (1.001-1.035); Squamous Epithelial Cell,Urine 1 /hpf (0-4); Urobilinogen,Urine <2.0 mg/dL (<2.0); WBC,Urine 94 /hpf (0-5)
[2022-11-29 18:50] LABS: Color,Urine Yellow
[2022-11-29] MEDS ORDERED: ALBUTEROL NEBULIZED 2.5 MG/3 ML INHALATION PRN (20:18)
[2022-11-29] MEDS ORDERED: HYDROcodone/APAP 10-325MG 1 EACH TAB PO SCH (20:30)
[2022-11-29] MEDS: AMIODARONE 200 MG TAB PO SCH (21:31)
[2022-11-29] MEDS: amLODIPine 5 MG TAB PO SCH (21:31)
[2022-11-29] MEDS: ATORVASTATIN 40 MG TAB PO SCH (21:31)
[2022-11-29] MEDS: APIXABAN 5 MG TAB PO SCH (21:32)
[2022-11-29] MEDS: GABAPENTIN 300 MG CAP PO SCH (21:32)
[2022-11-29] MEDS: METOPROLOL TARTRATE 50 MG TAB PO SCH (21:32)
--- NOTE | 2022-11-30 00:10 | P.HPIM ---
History of Present Illness H&P Date: 11/29/22 The patient is a 67-year-old female with a PMH of COPD with chronic hypoxic respiratory failure on nasal cannula oxygen at home, diastolic CHF, CAD status post CABG, A. 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 The patient reports that over the past few days, she has been experiencing worsening diarrhea especially after completing her vancomycin course during her last hospitalization. She has been feeling fatigued and has little energy to perform her ADLs. She saw her PCP earlier today who noted that she appeared pale and reportedly also had a low blood pressure. The patient denies bright red blood in stools or melena. She also denies bleeding elsewhere. She denies experiencing chest discomfort but does report exertional dyspnea especially without her oxygen at home. Denies orthopnea or PND. Denies urinary complaints. Reports compliance with her medications including Lasix and metolazone. In the emergency room, chest x-ray revealed findings consistent with possible pulmonary edema. EKG revealed A. fib at 52 bpm with a right bundle branch block. Vital signs upon presentation were SpO2 92% on 6 L is a cannula oxygen with pulse 57, BP 92/44, and temp 97F. Laboratory evaluation revealed he moglobin 10.7 (down from 11.0), potassium 3.3, BUN 50, creatinine 1.89, AST 90, ALT 39, alk phos 129, troponin less than 0.012, with UA consistent with UTI. ED documentation reviewed and case discussed with ED provider. Review of systems: Pertinent positives and negatives as discussed in HPI, a complete review of systems was performed and all other systems are negative. Physical examination: Vital signs reviewed General: non toxic, no distress, appears at stated age, normal weight Derm: no unusual rashes/lesions, warm Head: atraumatic, normocephalic, symmetric Eyes: EOMI, no lid lag, anicteric sclera, pupils equal round reactive to light ENT: Nose and ears atraumatic Neck: No cervical lymphadenopathy, trachea midline, supple Mouth: no lip lesion, mucus membranes moist Cardiovascular: S1S2 reg, no murmur, positive dorsalis pedis pulse bilateral, 1+ alvin LE pitting edema Lungs: CTA bilateral, no rhonchi, no rales, no accessory muscle use Abdominal: soft, nontender to palpation, no guarding Ext: muscle strength 3 out of 5 right lower extremity, strength 5 out of 5 elsewhere, no gross muscle atrophy, no contractures, Neuro: CN II-XI grossly intact, no gross focal neuro deficits Psych: Alert, oriented, appropriate affect Assessment: Acute on chronic hypoxic respiratory failure, suspect mild congestive heart failure UTI Diarrhea, rule out C. diff relapse Hypokalemia VALENTINA on chronic kidney disease Imaging: In the emergency room, chest x-ray revealed findings consistent with possible pulmonary edema. EKG revealed A. fib at 52 bpm with a right bundle branch block. Data Review: Laboratory evaluation revealed hemoglobin 10.7 (down from 11.0), potassium 3.3, BUN 50, creatinine 1.89, AST 90, ALT 39, alk phos 129, troponin less than 0.012, with UA consistent with UTI. Plan: Continue with Lasix 40 mg IV every 12 hourly Cardiology consult Cardiac monitoring Intake and output Daily weights Start patient on ceftriaxone and order urine cultures Order C. diff testing Replace potassium and monitor for improvement DVT prophylaxis: Eliquis The patient is admitted with an anticipated greater than 2 midnight stay for evaluation of hypoxic resp failure CODE STATUS: Full Code Discussed with: Patient Anticipated discharge place: Home Past Medical History Past Medical History: Atrial Fibrillation, Coronary Artery Disease (CAD), C ancer, COPD, Diabetes Mellitus, GERD/Reflux, Hyperlipidemia Additional Past Medical History / Comment(s): post polio syndrome rt side, neuropathy, hx. spontaneous pneumothorax, bowel resection for sepsis/infection,cut on toe History of Any Multi-Drug Resistant Organisms: ESBL Date of last positivie culture/infection: 06/29/21 MDRO Source:: ESBL BACK Past Surgical History: Back Surgery, Bowel Resection, Breast Surgery, Cholecystectomy, Coronary Bypass/CABG, Ear Surgery, Tonsillectomy Additional Past Surgical History / Comment(s): triple bypass 2013, left salpingo-oophorectomy, laminectomy L4 L5x3, ear surgery x 3 Past Anesthesia/Blood Transfusion Reactions: No Reported Reaction Past Psychological History: Anxiety, Depression Smoking Status: Former smoker Past Alcohol Use History: Occasional Past Drug Use History: None Reported - Past Family History Mother Family Medical History: Cancer Medications and Allergies Home Medications Medication Instructions Recorded Confirmed Type Atorvastatin [Lipitor] 40 mg PO HS 03/23/16 11/29/22 History DULoxetine HCL [Cymbalta] 60 mg PO DAILY 03/23/16 11/29/22 History Metoprolol Tartrate [Lopressor] 50 mg PO BID 03/23/16 11/29/22 History Omeprazole [PriLOSEC] 20 mg PO DAILY 03/23/16 11/29/22 History Montelukast [Singulair] 10 mg PO DAILY 05/18/21 11/29/22 History Gabapentin 600 mg PO TID 06/29/21 11/29/22 History Budesonide-Formot 160-4.5 Mcg 2 puff INHALATION RT-BID 04/06/22 11/29/22 History [Symbicort 160-4.5 Mcg Inhaler] Biotin [Biotin Disolve] 10,000 mcg PO DAILY 09/03/22 11/29/22 History Letrozole [Femara] 2.5 mg PO DAILY 09/03/22 11/29/22 History Apixaban [Eliquis] 5 mg PO BID 09/06/22 11/29/22 History Cholecalciferol [Vitamin D3 (125 125 mcg PO DAILY 09/06/22 11/29/22 History Mcg = 5000 Iu)] Cyanocobalamin (Vitamin B-12) 2,000 mcg PO DAILY 09/06/22 11/29/22 History [Vitamin B-12] HYDROcodone/APAP 10-325MG [[place] 1 tab PO Q6H 09/06/22 11/29/22 History 10-325] Ascorbic Acid [Vitamin C] 250 mg PO DAILY #60 tab 09/09/22 11/29/22 Rx Ferrous Sulfate [Iron (65 MG 325 mg PO W/LUNCH #60 tab 09/09/22 11/29/22 Rx Elemental)] Albuterol Inhaler [Ventolin Hfa 2 puff INHALATION RT-QID PRN 11/10/22 11/29/22 History Inhaler] Amiodarone [Cordarone] 200 mg PO BID 11/10/22 11/29/22 History amLODIPine [Norvasc] 5 mg PO BID 11/10/22 11/29/22 History Ondansetron Odt [Zofran ODT] 4 mg PO Q8HR PRN #30 tab 11/11/22 11/29/22 Rx Furosemide [Lasix] 40 mg PO BID@0900,1600 #60 tab 11/22/22 11/29/22 Rx Losartan [Cozaar] 25 mg PO DAILY #30 tab 11/22/22 11/29/22 Rx metOLazone [Zaroxolyn] 5 mg PO DAILY #30 tab 11/22/22 11/29/22 Rx Insulin Glargine,Hum.rec.anlog 30 units SQ HS 11/29/22 11/29/22 History [Lantus Solostar Pen] Lactobacillus Acidophilus 1 cap PO DAILY 11/29/22 11/29/22 History [Acidophilus Probiotic] Ubidecarenone [Coenzyme Q10] 200 mg PO DAILY 11/29/22 11/29/22 History Allergies Allergy/AdvReac Type Severity Reaction Status Date / Time morphine Allergy rash,itchin Verified 11/29/22 17:54 g Sulfa (Sulfonamide Allergy Rash/Hives Verified 11/29/22 17:54 Antibiotics) amoxicillin [From Augmentin] AdvReac Diarrhea Verified 11/29/22 17:54 clavulanic acid AdvReac Diarrhea Verified 11/29/22 17:54 [From Augmentin] surgical susy AdvReac infection Uncoded 11/29/22 17:54 Physical Exam Vitals: Vital Signs Temp Pulse Pulse Resp BP BP Pulse Ox 11/29/22 20:00 97.6 F 55 L 18 104/53 92 L 11/29/22 18:12 56 L 18 105/74 92 L 11/29/22 16:32 52 L 20 111/76 92 L 11/29/22 15:09 97.0 F L 57 L 20 92/44 92 L Intake and Output 11/29/22 11/29/22 11/30/22 14:59 22:59 06:59 Intake Total 10 Balance 10 Intake: IV 10 Invasive Line 1 10 Other: Weight 92.079 kg Results CBC & Chem 7: 11/29/22 15:28 11/29/22 15:28 Labs: Abnormal Lab Results - Last 24 Hours (Table) 11/29/22 11/29/22 11/29/22 Range/Units 15:28 15:28 15:28 RBC 3.77 L (3.80-5.40) m/uL Hgb 10.7 L (11.4-16.0) gm/dL Hct 32.9 L (34.0-46.0) % RDW 19.9 H (11.5-15.5) % Neutrophils # 8.1 H (1.3-7.7) k/uL PT 13.5 H (9.0-12.0) sec INR 1.3 H (<1.2) Sodium (137-145) mmol/L Potassium (3.5-5.1) mmol/L BUN (7-17) mg/dL Creatinine (0.52-1.04) mg/dL Glucose (74-99) mg/dL AST (14-36) U/L ALT (4-34) U/L Alkaline Phosphatase (38-126) U/L Total Protein (6.3-8.2) g/dL Albumin (3.5-5.0) g/dL Urine Appearance Cloudy H (Clear) Urine Protein 1+ H (Negative) Urine Blood Large H (Negative) Ur Leukocyte Esterase Large H (Negative) Urine RBC 34 H (0-5) /hpf Urine WBC 94 H (0-5) /hpf Urine Bacteria Moderate H (None) /hpf Hyaline Casts 50 H (0-2) /lpf Urine Mucus Rare H (None) /hpf 11/29/22 Range/Units 15:28 RBC (3.80-5.40) m/uL Hgb (11.4-16.0) gm/dL Hct (34.0-46.0) % RDW (11.5-15.5) % Neutrophils # (1.3-7.7) k/uL PT (9.0-12.0) sec INR (<1.2) Sodium 135 L (137-145) mmol/L Potassium 3.3 L (3.5-5.1) mmol/L BUN 50 H (7-17) mg/dL Creatinine 1.89 H (0.52-1.04) mg/dL Glucose 69 L (74-99) mg/dL AST 90 H (14-36) U/L ALT 39 H (4-34) U/L Alkaline Phosphatase 129 H (38-126) U/L Total Protein 6.2 L (6.3-8.2) g/dL Albumin 3.1 L (3.5-5.0) g/dL Urine Appearance (Clear) Urine Protein (Negative) Urine Blood (Negative) Ur Leukocyte Esterase (Negative) Urine RBC (0-5) /hpf Urine WBC (0-5) /hpf Urine Bacteria (None) /hpf Hyaline Casts (0-2) /lpf Urine Mucus (None) /hpf
[2022-11-30] MEDS ORDERED: POTASSIUM CHLORIDE ER 20 MEQ TAB.ER PO STA (04:04)
[2022-11-30 05:36] LABS: Glucose,Whole Blood 128 mg/dL (70-110)
[2022-11-30] MEDS ORDERED: LOSARTAN 25 MG TAB PO SCH (09:00)
[2022-11-30] MEDS ORDERED: FUROSEMIDE 10 MG/ML 4 ML VIAL IV SCH (09:00)
[2022-11-30] MEDS: NON FORMULARY DRUG (Ubidecarenone [Coenzyme Q10] 200 MG Capsule) PO SCH (09:05)
[2022-11-30 09:27] LABS: Anisocytosis Slight; Basophils % (A) 0 %; Eosinophils # (A) 0.2 k/uL (0-0.7); Eosinophils % (A) 3 %; HCT 33.3 % (34.0-46.0); HGB 10.2 gm/dL (11.4-16.0); Hypochromasia Moderate; Lymphocytes % (A) 12 %; MCH 27.6 pg (25.0-35.0); MCHC 30.5 g/dL (31.0-37.0); MCV 90.3 fL (80.0-100.0); Monocytes # (A) 0.5 k/uL (0-1.0); Monocytes % (A) 7 %; Neutrophils # (A) 6.2 k/uL (1.3-7.7); Neutrophils % (A) 76 %; Platelet Count 185 k/uL (150-450); RBC 3.68 m/uL (3.80-5.40); RDW 19.8 % (11.5-15.5); WBC 8.1 k/uL (3.8-10.6)
[2022-11-30] MEDS: MONTELUKAST 10 MG TAB PO SCH (09:29)
[2022-11-30] MEDS: GABAPENTIN 300 MG CAP PO SCH ×3 (09:29→23:21)
[2022-11-30] MEDS: AMIODARONE 200 MG TAB PO SCH ×2 (09:29→20:50)
[2022-11-30] MEDS: METOPROLOL TARTRATE 50 MG TAB PO SCH ×2 (09:29→20:50)
[2022-11-30] MEDS: CHOLECALCIFEROL 125 MCG (5000 IU) TABLET PO SCH (09:30)
[2022-11-30] MEDS: LETROZOLE 2.5 MG TAB PO SCH (09:30)
[2022-11-30] MEDS: APIXABAN 5 MG TAB PO SCH ×2 (09:30→20:50)
[2022-11-30] MEDS: amLODIPine 5 MG TAB PO SCH ×2 (09:30→20:49)
[2022-11-30] MEDS: DULoxetine HCL 60 MG CAPSULE.DR PO SCH (09:30)
[2022-11-30] MEDS: ASCORBIC ACID 500 MG TAB PO SCH (09:30)
[2022-11-30] MEDS: metOLazone 5 MG TAB PO SCH (09:31)
[2022-11-30 10:02] LABS: African American GFR (CKD) 28 (>60 ml/min/1.73 sqM); Anion Gap 9 mmol/L; Blood Urea Nitrogen 53 mg/dL (7-17); Calcium 8.4 mg/dL (8.4-10.2); Carbon Dioxide 28 mmol/L (22-30); Chloride 98 mmol/L (98-107); Glucose 83 mg/dL (74-99); Non-African American GFR(CKD) 24 (>60 ml/min/1.73 sqM); Potassium 3.5 mmol/L (3.5-5.1); Sodium 135 mmol/L (137-145)
[2022-11-30] MEDS: SYMBICORT 160-4.5 MCG INHALER INHALATION SCH ×2 (10:47→19:55)
[2022-11-30 11:23] LABS: Glucose,Whole Blood 132 mg/dL (70-110)
[2022-11-30] MEDS: FERROUS SULFATE 325 MG TAB PO SCH (11:32)
--- NOTE | 2022-11-30 12:10 | P.PN ---
Subjective Progress Note Date: 11/30/22 Hospital course: Patient is a pleasant 67-year-old female with a past medical history of advanced COPD home oxygen dependent on 2-3 L at all times, atrial fibrillation on anticoagulation with Eliquis, CAD status post CABG 3, hypertension, hyperlipidemia, insulin-dependent diabetes mellitus, and history of polio with right-sided neuropathy/deficits. She presented to the emergency department with a chief complaint of nausea and diarrhea, and weakness. Patient has had multiple admissions over the last 30 days in which she underwent treatment for C. diff (11/10/22-11/12/22) and completed 10 day course of oral vancomycin, followed by a hospitalization for CHF exacerbation (11/17/22-11/22/22) and now presented to ED on 11/29/22 with reports of continued progressive weakness and fatigue, persistant loose stools, and nausea. Patient has been under close outpatient follow-up with her PCP and was sent back to the hospital for reevaluation secondary to concerns of her persistent weakness. Upon arrival to the emergency department patient underwent full evaluation. An EKG was complet ed showing sinus bradycardia at 52 bpm with a right bundle branch block upon personal review and interpretation. These findings similar when compared to previous EKG completed on 11/17/22 with no significant changes noted. A chest x- ray was completed concerning for congestive heart failure and radiology report stating low lung volumes with generalized hazy appearance possibly representing atelectasis versus pulmonary edema correlate with serum BNP. Labs completed and reviewed. CBC showing a stable normocytic anemia with hemoglobin of 10.7 and at baseline values. Coagulation profile showing elevated PT of 13.5 and INR 1.3. BMP revealing hyperkalemia with potassium of 3.3 and an acute kidney injury with BUN of 50, creatinine 1.89, and GFR of 27. Patient was hypoglycemic with glucose of 69. Liver profile revealing transaminitis with AST of 90, ALT of 39, and alkaline phosphatase of 129. Troponin was negative at less than 0.012 and proBNP was elevated at 2320 showing increased from previous hospitalization with proBNP of 1490. Urinalysis was positive for blood and infection, urine culture was sent to lab for analysis. Influenza A, influenza B, RSV, and Covid PCR negative. Patient was admitted under our services with consultation to cardiology for management of acute CHF exacerbation and nephrology secondary to acute kidney injury and continued need for diuresis. Physical exam: Patient seen and fully evaluated at bedside this morning. She was sitting up in the chair. She reports just feeling overall fatigued and weak. Patient reports only one episode of loose stool since arrival to our facility. She denies having any chest pain, palpitations, or shortness of breath at this time. Vital signs reviewed and stable. General: Nontoxic, no distress and appears stated age. Derm: Skin warm and dry, normal coloration for ethnicity. Head: Atraumatic, normocephalic and symmetric. Eyes: EOMs intact, no lid lag, and anicteric sclera Mouth: no lip lesions, mucus membranes moist Cardiovascular: regular rate and rhythm with normal S1S2, no murmur, positive posterior tibial pulses bilaterally, and cap refill < 2 seconds. Lungs: Respirations even, regular, and unlabored on 4L O2 via NC. Lungs diminished, worse RLL with diffuse expiratory wheezes. No rhonchi, no rales, no crackles noted. No accessory muscle usage. Abdominal: soft, nontender to palpation, no guarding, no appreciable organomegaly Ext: ROM intact. No gross muscle atrophy, 1+ edema, no contractures Neuro: Speech clear, face symmetrical and CN II-XII grossly intact with no noted focal neuro deficits Psych: Alert and oriented to person, place, time, and situation. Appropriate and pleasant affect. Assessment and Plan of Care: Acute on chronic diastolic heart failure with previously known EF of 60-65% Weakness and fatigue, likely multifactorial due to physical decondition and recurrent illness Paroxysmal Atrial fibrillation CAD status post CABG 3 Hypertension Hyperlipidemia -Cardiology following and discussed plan of care with cardiology RADAR OPERATOR. -Telemetry monitoring -ProBNP was elevated at 2320 -Daily weights -Order placed for strict monitoring of I's and O's every shift -Cardiac diet -Lasix 40 mg IVP twice daily in addition to metolazone 5 mg daily. -Continued close monitoring of electrolytes while diuresing. -Continue home cardiac medication regimen with Metolazone 5 mg daily, amiodarone 200 mg twice daily, amlodipine 5 mg twice daily, anticoagulation with Eliquis 5 mg twice a day, atorvastatin 40 mg nightly, and metoprolol 50 mg twice daily Loose stools with recent treatment for c-diff -Pt reports completed entire course of antibiotics for c-diff but continues to have 1-3 episodes of loose stools daily. -Order placed for repeat c-diff testing, if negative may consider adding psylllium supplement to bulken up stool. Acute Kidney Injury -Patient with an acute kidney injury with BUN of 53, creatinine 2.07, and GFR of 24 with baseline creatinine around 1.0. -Despite worsening renal function, patient requires diuresis for treatment of acute CHF exacerbation. -Nephrology consulted -We will hold losartan and continue with Lasix and metolazone pending further r ecommendations from division service manager. -Patient being treated for acute UTI with Rocephin 1 g every 24 hours. -Order placed for bladder management to monitor for postvoid residuals. -Strict I's and O's Transaminitis, chronic and stable upon review of previous labs. Chronic hypoxic respiratory failure secondary to advanced COPD home oxygen dependent -Oxygenation to be administered and titrated as needed to maintain SPO2 equal to or greater than or equal to 90% -Continue monitoring Pulse-oximetry -Duonebs as needed for SOB and/or wheezing -Continue Ventolin, Symbicort and Singulair. Insulin-dependent diabetes mellitus with episode of hypoglycemia -Blood glucose upon arrival was 69. Currently blood glucose 128 with no furhter episodes of hypoglycemia since admission. -We will hold Levemir [address] pt on glycemic protocol with NovoLog sliding scale. Data review Morning labs reviewed. CBC showing stable normocytic anemia with hemoglobin of 10.2. BMP revealing slightly worsening renal function with BUN of 53, creatinine 2.07, and GFR of 24. Vital signs reviewed . Blood pressure 104/66, heart rate 56, respiratory rate 18, temp 97.8F, SpO2 of 92% on 4 L O2 via nasal cannula.. Imaging review: No new imaging for review at this time. CODE STATUS: Full code DVT prophylaxis: Ismael Discussed with: Pt, Cardiology RADAR OPERATOR and RN. Anticipated discharge date: 1-[address]: Home Patient was seen independently by Nurse Practitioner. This document was prepared using [employer] dictation software. Please allow for errors in manager heavy duty while rare they do occur. I reviewed the documentation as provided by the CHARLA above, who is the original author of this note. I agree with the documented assessment and plan, with the following changes: none Objective - Vital Signs Vital signs: Vital Signs Temp 97.6 F 11/30/22 04:00 Pulse 53 L 11/30/22 04:00 Resp 18 11/30/22 04:00 BP 121/58 11/30/22 04:00 Pulse Ox 93 L 11/30/22 04:00 FiO2 Intake & Output 11/29/22 11/30/22 11/30/22 18:59 06:59 18:59 Intake Total 10 Output Total 200 Balance -190 Weight 92.079 kg 91.6 kg Intake: IV 10 Invasive Line 1 10 Output: Urine 200 Other: Voiding Method Bedside Commode - Labs CBC & Chem 7: 11/30/22 08:39 11/30/22 08:39 Labs: Abnormal Lab Results - Last 24 Hours (Table) 11/29/22 11/29/22 11/29/22 Range/Units 15:28 15:28 15:28 RBC 3.77 L (3.80-5.40) m/uL Hgb 10.7 L (11.4-16.0) gm/dL Hct 32.9 L (34.0-46.0) % RDW 19.9 H (11.5-15.5) % Neutrophils # 8.1 H (1.3-7.7) k/uL PT 13.5 H (9.0-12.0) sec INR 1.3 H (<1.2) Sodium (137-145) mmol/L Potassium (3.5-5.1) mmol/L BUN (7-17) mg/dL Creatinine (0.52-1.04) mg/dL Glucose (74-99) mg/dL POC Glucose (mg/dL) (70-110) mg/dL AST (14-36) U/L ALT (4-34) U/L Alkaline Phosphatase (38-126) U/L Total Protein (6.3-8.2) g/dL Albumin (3.5-5.0) g/dL Urine Appearance Cloudy H (Clear) Urine Protein 1+ H (Negative) Urine Blood Large H (Negative) Ur Leukocyte Esterase Large H (Negative) Urine RBC 34 H (0-5) /hpf Urine WBC 94 H (0-5) /hpf Urine Bacteria Moderate H (None) /hpf Hyaline Casts 50 H (0-2) /lpf Urine Mucus Rare H (None) /hpf 08/14/23 08/15/23 Range/Units 15:28 05:34 RBC (3.80-5.40) m/uL Hgb (11.4-16.0) gm/dL Hct (34.0-46.0) % RDW (11.5-15.5) % Neutrophils # (1.3-7.7) k/uL PT (9.0-12.0) sec INR (<1.2) Sodium 135 L (137-145) mmol/L Potassium 3.3 L (3.5-5.1) mmol/L BUN 50 H (7-17) mg/dL Creatinine 1.89 H (0.52-1.04) mg/dL Glucose 69 L (74-99) mg/dL POC Glucose (mg/dL) 128 H (70-110) mg/dL AST 90 H (14-36) U/L ALT 39 H (4-34) U/L Alkaline Phosphatase 129 H (38-126) U/L Total Protein 6.2 L (6.3-8.2) g/dL Albumin 3.1 L (3.5-5.0) g/dL Urine Appearance (Clear) Urine Protein (Negative) Urine Blood (Negative) Ur Leukocyte Esterase (Negative) Urine RBC (0-5) /hpf Urine WBC (0-5) /hpf Urine Bacteria (None) /hpf Hyaline Casts (0-2) /lpf Urine Mucus (None) /hpf
--- NOTE | 2022-11-30 12:56 | P.CRDCN ---
History of Present Illness Consult date: 11/30/22 History of present illness: History of present illness: This is a 67-year-old female with history of COPD on home O2, coronary artery disease status post bypass surgery, atrial fibrillation, DM type II, hypertension, hyperlipidemia. Patient was established with Dr. Broderick during a hospitalization in early November. Patient has had several recent hospitalizations due to see distal colitis. Patient states that she developed pale blue fingernails and some confusion and her physician told her to come into the hospital for further evaluation. She states she has recently lost weight. No weight gain. She states she has some lower extremity edema which has been chronic. She denies any cough, no fever or chills. She does state that about one time per week she has a short period of palpitations. We have been asked to evaluate the patient for congestive heart failure. EKG atrial fibrillation 52 bpm Chest x-ray: Low lung volumes with generalized hazy appearance which could represent atelectasis versus pulmonary edema. WBC 8.1, hemoglobin 10.2, platelet count 185. Sodium 135. Potassium 3.5, BUN 53 creatinine 2.07. ProBNP 2320. Troponin negative 1. AST 90, ALT 39, alkaline phosphatase 129. UA positive for urinary tract infection. Influenza A, influenza B, RSV, Covid 19 not detected. Home cardiac medications: Amiodarone 200 mg twice daily, amlodipine 5 mg twice daily, eliquis 5 mg twice daily, Lipitor 40 mg at bedtime, Lasix 40 mg twice daily, losartan 25 mg daily, Zaroxolyn 5 mg daily, Lopressor 50 mg twice daily Echocardiogram 08/2022 revealed normal LV systolic function, moderate pulmonary hypertension, left atrial enlargement. Review Of Systems: Constitutional: No fever, no chills, no night sweats. + weight loss. EENT: No headache. Lungs: + shortness of breath, cough, no sputum production. No wheezing. Cardiovascular: No chest pain, + lower extremity edema. + intermittent palpitations. No paroxysmal nocturnal dyspnea. No orthopnea. No lightheadedness or dizziness. No syncopal episodes. Abdominal: No abdominal pain. No nausea, vomiting. No diarrhea. Musculoskeletal: No myalgias. No muscle weakness, no gait dysfunction, no frequent falls. Integumentary: No wounds, no lesions. No rash or pruritus. No unusual bruising. + change in hair or nails. Neurologic: No aphasia. No facial droop. No change in mentation. No head injury. Endocrine: No abnormal blood sugars. No weight change. No excessive sweating or thirst. Physical examination: Gen: This is a 67-year-old female, she is sitting on commode chair and appears to be comfortable. No acute respiratory distress noted. VS: reviewed HEENT: Head is atraumatic, normocephalic. Pupils equal, round. Sclerae is anicteric. NECK: Supple. No JVD. LUNGS: Diminished air entry at the right base. HEART: Regular rate and rhythm. Systolic murmur at the left lower sternal border ABDOMEN: Soft No tenderness. EXTREMITIES: Mild pedal edema. No calf tenderness. Assessment: Acute COPD exacerbation Chronic hypoxic respiratory failure on home O2 Acute exacerbation of chronic diastolic heart failure Possible pneumonia, on IV antibiotics Coronary artery disease status post coronary artery bypass graft Paroxysmal atrial fibrillation Hypertension Hyperlipidemia Recent C. difficile colitis Possible UTI Plan: Continue patient's home cardiac medications Continue patient on IV Lasix 40 mg every 12 hours Monitor I&O, daily weights, I's and renal function No need to repeat echocardiogram as this was done in August. Further recommendations to follow based upon clinical course Nurse practitioner note has been reviewed, I agree with documented findings and plan of care. Patient was seen and examined. Past Medical History Past Medical History: Atrial Fibrillation, Coronary Artery Disease (CAD), Cancer, COPD, Diabetes Mellitus, GERD/Reflux, Hyperlipidemia Additional Past Medical History / Comment(s): post polio syndrome rt side, neuropathy, hx. spontaneous pneumothorax, bowel resection for sepsis/infection,cut on toe History of Any Multi-Drug Resistant Organisms: ESBL Date of last positivie culture/infection: 06/29/21 MDRO Source:: ESBL BACK Past Surgical History: Back Surgery, Bowel Resection, Breast Surgery, Cholecystectomy, Coronary Bypass/CABG, Ear Surgery, Tonsillectomy Additional Past Surgical History / Comment(s): triple bypass 2013, left salp ingo-oophorectomy, laminectomy L4 L5x3, ear surgery x 3 Past Anesthesia/Blood Transfusion Reactions: No Reported Reaction Past Psychological History: Anxiety, Depression Smoking Status: Former smoker Past Alcohol Use History: Occasional Past Drug Use History: None Reported - Past Family History Mother Family Medical History: Cancer Medications and Allergies Home Medications Medication Instructions Recorded Confirmed Type Atorvastatin [Lipitor] 40 mg PO HS 12/06/16 08/14/23 History DULoxetine HCL [Cymbalta] 60 mg PO DAILY 03/23/16 11/29/22 History Metoprolol Tartrate [Lopressor] 50 mg PO BID 03/23/16 11/29/22 History Omeprazole [PriLOSEC] 20 mg PO DAILY 03/23/16 11/29/22 History Montelukast [Singulair] 10 mg PO DAILY 05/18/21 11/29/22 History Gabapentin 600 mg PO TID 06/29/21 11/29/22 History Budesonide-Formot 160-4.5 Mcg 2 puff INHALATION RT-BID 04/06/22 11/29/22 History [Symbicort 160-4.5 Mcg Inhaler] Biotin [Biotin Disolve] 10,000 mcg PO DAILY 09/03/22 11/29/22 History Letrozole [Femara] 2.5 mg PO DAILY 09/03/22 11/29/22 History Apixaban [Eliquis] 5 mg PO BID 09/06/22 11/29/22 History Cholecalciferol [Vitamin D3 (125 125 mcg PO DAILY 09/06/22 11/29/22 History Mcg = 5000 Iu)] Cyanocobalamin (Vitamin B-12) 2,000 mcg PO DAILY 09/06/22 11/29/22 History [Vitamin B-12] HYDROcodone/APAP 10-325MG [[place] 1 tab PO Q6H 09/06/22 11/29/22 History 10-325] Ascorbic Acid [Vitamin C] 250 mg PO DAILY #60 tab 09/09/22 11/29/22 Rx Ferrous Sulfate [Iron (65 MG 325 mg PO W/LUNCH #60 tab 09/09/22 11/29/22 Rx Elemental)] Albuterol Inhaler [Ventolin Hfa 2 puff INHALATION RT-QID PRN 11/10/22 11/29/22 History Inhaler] Amiodarone [Cordarone] 200 mg PO BID 11/10/22 11/29/22 History amLODIPine [Norvasc] 5 mg PO BID 11/10/22 11/29/22 History Ondansetron Odt [Zofran ODT] 4 mg PO Q8HR PRN #30 tab 11/11/22 11/29/22 Rx Furosemide [Lasix] 40 mg PO BID@0900,1600 #60 tab 11/22/22 11/29/22 Rx Losartan [Cozaar] 25 mg PO DAILY #30 tab 11/22/22 11/29/22 Rx metOLazone [Zaroxolyn] 5 mg PO DAILY #30 tab 11/22/22 11/29/22 Rx Insulin Glargine,Hum.rec.anlog 30 units SQ HS 11/29/22 11/29/22 History [Lantus Solostar Pen] Lactobacillus Acidophilus 1 cap PO DAILY 11/29/22 11/29/22 History [Acidophilus Probiotic] Ubidecarenone [Coenzyme Q10] 200 mg PO DAILY 11/29/22 11/29/22 History Allergies Allergy/AdvReac Type Severity Reaction Status Date / Time morphine Allergy rash,itchin Verified 11/29/22 17:54 g Sulfa (Sulfonamide Allergy Rash/Hives Verified 11/29/22 17:54 Antibiotics) amoxicillin [From Augmentin] AdvReac Diarrhea Verified 11/29/22 17:54 clavulanic acid AdvReac Diarrhea Verified 11/29/22 17:54 [From Augmentin] surgical susy AdvReac infection Uncoded 11/29/22 17:54 Physical Exam Vitals: Vital Signs Temp Pulse Pulse Resp BP BP Pulse Ox 11/30/22 04:00 97.6 F 53 L 18 121/58 93 L 11/30/22 00:00 97.5 F L 52 L 18 97/49 91 L 11/29/22 20:00 97.6 F 55 L 18 104/53 92 L 11/29/22 18:12 56 L 18 105/74 92 L 11/29/22 16:32 52 L 20 111/76 92 L 11/29/22 15:09 97.0 F L 57 L 20 92/44 92 L Intake and Output 11/29/22 11/30/22 11/30/22 22:59 06:59 14:59 Intake Total 10 Output Total 200 200 Balance 10 -200 -200 Intake: IV 10 Invasive Line 1 10 Output: Urine 200 200 Other: Voiding Method Bedside Commode Bedside Commode # Bowel Movements 1 Weight 92.079 kg 91.6 kg Results 11/30/22 08:39 11/30/22 08:39 Cardiac Enzymes 11/29/22 11/29/22 Range/Units 15:28 15:28 AST 90 H (14-36) U/L Troponin I <0.012 (0.000-0.034) ng/mL Coagulation 11/29/22 Range/Units 15:28 PT 13.5 H (9.0-12.0) sec APTT 28.8 (22.0-30.0) sec CBC 11/29/22 Range/Units 15:28 WBC 10.6 (3.8-10.6) k/uL RBC 3.77 L (3.80-5.40) m/uL Hgb 10.7 L (11.4-16.0) gm/dL Hct 32.9 L (34.0-46.0) % Plt Count 183 (150-450) k/uL Comprehensive Metabolic Panel 11/29/22 Range/Units 15:28 Sodium 135 L (137-145) mmol/L Potassium 3.3 L (3.5-5.1) mmol/L Chloride 98 (98-107) mmol/L Carbon Dioxide 28 (22-30) mmol/L BUN 50 H (7-17) mg/dL Creatinine 1.89 H (0.52-1.04) mg/dL Glucose 69 L (74-99) mg/dL Calcium 8.7 (8.4-10.2) mg/dL AST 90 H (14-36) U/L ALT 39 H (4-34) U/L Alkaline Phosphatase 129 H (38-126) U/L Total Protein 6.2 L (6.3-8.2) g/dL Albumin 3.1 L (3.5-5.0) g/dL Current Medications Generic Name Dose Route Start Last Admin Trade Name Freq PRN Reason Stop Dose Admin Hydrocodone Bitart/Acetaminophen 1 each 11/29/22 23:30 Hydrocodone/Apap 10-325mg 1 Each Tab PO Q6H PRN Pain Albuterol Sulfate 2.5 mg 11/29/22 20:18 Albuterol Nebulized 2.5 Mg/3 Ml INHALATION RT-QID PRN Shortness Of Breath Amiodarone HCl 200 mg 11/29/22 21:00 11/29/22 21:31 Amiodarone 200 Mg Tab PO 200 mg BID [place] Administration Amlodipine Besylate 5 mg 11/29/22 21:00 11/29/22 21:31 Amlodipine 5 Mg Tab PO 5 mg BID [place] Administration Apixaban 5 mg 11/29/22 21:00 11/29/22 21:32 Apixaban 5 Mg Tab PO 5 mg BID [facility] Administration Protocol Ascorbic Acid 250 mg 11/30/22 09:00 Ascorbic Acid 500 Mg Tab PO DAILY [facility] Atorvastatin Calcium 40 mg 11/29/22 21:00 11/29/22 21:31 Atorvastatin 40 Mg Tab PO 40 mg HS [facility] Administration Budesonide/Formoterol Fumarate 2 puff 11/30/22 08:00 Symbicort 160-4.5 Mcg Inhaler INHALATION RT-BID [facility] Cholecalciferol 125 mcg 11/30/22 09:00 Cholecalciferol 125 Mcg (5000 Iu) Tablet PO DAILY [facility] Duloxetine HCl 60 mg 11/30/22 09:00 Duloxetine Hcl 60 Mg Capsule.Dr PO DAILY [facility] Ferrous Sulfate 325 mg 11/30/22 12:30 Ferrous Sulfate 325 Mg Tab PO W/LUNCH [facility] Furosemide 40 mg 11/30/22 09:00 Furosemide 10 Mg/Ml 4 Ml Vial IV Q12HR [facility] Gabapentin 600 mg 11/29/22 22:00 11/29/22 21:32 Gabapentin 300 Mg Cap PO 600 mg TID [facility] Administration Ceftriaxone Sodium 2 gm/ 50 mls @ 100 mls/hr 11/30/22 09:00 Sodium Chloride IVPB Q24HR [facility] Protocol Letrozole 2.5 mg 11/30/22 09:00 Letrozole 2.5 Mg Tab PO DAILY [facility] Losartan Potassium 25 mg 11/30/22 09:00 Losartan 25 Mg Tab PO DAILY [facility] Metolazone 5 mg 11/30/22 09:00 Metolazone 5 Mg Tab PO DAILY [facility] Metoprolol Tartrate 50 mg 11/29/22 21:00 11/29/22 21:32 Metoprolol Tartrate 50 Mg Tab PO 50 mg BID [facility] Administration Montelukast Sodium 10 mg 11/30/22 09:00 Montelukast 10 Mg Tab PO DAILY [facility] Naloxone HCl 0.2 mg 11/29/22 17:46 Naloxone 0.4 Mg/Ml 1 Ml Vial IV Q2M PRN Opioid Reversal Non-Formulary Medication 200 mg 11/30/22 09:00 11/30/22 09:05 Ubidecarenone [Coenzyme Q10] PO Not Given DAILY [facility] Ondansetron HCl 4 mg 11/29/22 20:18 Ondansetron Odt 4 Mg Tab PO Q8HR PRN Nausea And Vomiting Intake and Output 11/29/22 11/30/22 11/30/22 22:59 06:59 14:59 Intake Total 10 Output Total 200 200 Balance 10 -200 -200 Intake: IV 10 Invasive Line 1 10 Output: Urine 200 200 Other: Voiding Method Bedside Commode Bedside Commode # Bowel Movements 1 Weight 92.079 kg 91.6 kg 11/29/22 15:28 11/29/22 15:28
[2022-11-30] MEDS ORDERED: DEXTROSE 50% SYRINGE 50 ML IVP PRN ×2 (13:19)
[2022-11-30] MEDS: HYDROcodone/APAP 10-325MG 1 EACH TAB PO PRN (16:08)
[2022-11-30 16:33] LABS: Glucose,Whole Blood 97 mg/dL (70-110)
[2022-11-30] MEDS: INSULIN ASPART (NovoLOG) 100 UNIT/ML VIAL SQ SCH ×2 (17:20→20:45)
[2022-11-30 20:26] LABS: Glucose,Whole Blood 134 mg/dL (70-110)
[2022-11-30] MEDS: ATORVASTATIN 40 MG TAB PO SCH (20:50)
[2022-12-01 03:46] LABS: Glucose,Whole Blood 118 mg/dL (70-110)
[2022-12-01] MEDS: INSULIN ASPART (NovoLOG) 100 UNIT/ML VIAL SQ SCH ×4 (06:20→21:16)
[2022-12-01 06:23] LABS: Glucose,Whole Blood 120 mg/dL (70-110)
[2022-12-01] MEDS: FUROSEMIDE 10 MG/ML 4 ML VIAL IV SCH ×2 (06:23→17:26)
[2022-12-01] MEDS: SYMBICORT 160-4.5 MCG INHALER INHALATION SCH ×2 (08:56→21:41)
[2022-12-01] MEDS: NON FORMULARY DRUG (Ubidecarenone [Coenzyme Q10] 200 MG Capsule) PO SCH (09:01)
[2022-12-01] MEDS: GABAPENTIN 300 MG CAP PO SCH ×3 (09:12→21:31)
[2022-12-01] MEDS: CHOLECALCIFEROL 125 MCG (5000 IU) TABLET PO SCH (09:13)
[2022-12-01] MEDS: AMIODARONE 200 MG TAB PO SCH ×2 (09:13→21:31)
[2022-12-01] MEDS: amLODIPine 5 MG TAB PO SCH (09:13)
[2022-12-01] MEDS: APIXABAN 5 MG TAB PO SCH ×2 (09:13→21:31)
[2022-12-01] MEDS: MONTELUKAST 10 MG TAB PO SCH (09:13)
[2022-12-01] MEDS: DULoxetine HCL 60 MG CAPSULE.DR PO SCH (09:13)
[2022-12-01] MEDS: LACTOBACILLUS ACIDOPHILUS/PECT 1 EACH CAPSULE PO SCH ×2 (09:13→21:31)
[2022-12-01] MEDS: METOPROLOL TARTRATE 50 MG TAB PO SCH ×2 (09:13→21:32)
[2022-12-01] MEDS: ASCORBIC ACID 500 MG TAB PO SCH (09:14)
[2022-12-01] MEDS: LETROZOLE 2.5 MG TAB PO SCH (09:14)
[2022-12-01] MEDS: metOLazone 5 MG TAB PO SCH (09:14)
[2022-12-01 09:21] LABS: African American GFR (CKD) 30 (>60 ml/min/1.73 sqM); Anion Gap 11 mmol/L; Blood Urea Nitrogen 57 mg/dL (7-17); Calcium 8.7 mg/dL (8.4-10.2); Carbon Dioxide 24 mmol/L (22-30); Chloride 100 mmol/L (98-107); Glucose 169 mg/dL (74-99); Non-African American GFR(CKD) 26 (>60 ml/min/1.73 sqM); Potassium 3.7 mmol/L (3.5-5.1); Sodium 135 mmol/L (137-145)
[2022-12-01 11:25] LABS: Glucose,Whole Blood 229 mg/dL (70-110)
--- NOTE | 2022-12-01 11:25 | P.PN ---
Subjective Progress Note Date: 12/01/22 Patient is a well female with COPD on home O2 at 2-3 L, A. fib anticoagulated with Eliquis, diastolic CHF, coronary artery disease, hypertension, dyslipidemia, insulin-dependent diabetes, and multiple other comorbid conditions who presented to the emergency department with weakness and diarrhea. Of note, She has had multiple admissions over the last 30 days: 11/10/22-11/12/22 treated for C diff, completed 10 day course of oral vancomycin, 11/17/22-11/22/22 treated for CHF In the emergency room she underwent an extensive evaluation. Chest x-ray showed possible pulmonary edema versus atelectasis, EKG showed rate controlled A. fib at 52 bpm with a right bundle branch block, vital signs were remarkable for SpO2 of 92% on 6 L nasal cannula and a blood pressure of 92/44. Laboratory analysis was remarkable for hemoglobin 10.7, potassium 3.3, BUN 50, creatinine 1.89 (up from baseline of 0.9), AST 90, ALT 39, alkaline phosphatase 129. A urine was consistent with urinary tract infection. Patient was started on IV Lasix and Rocephin. Arrangements are made for admission. Cardiology was consulted and she was maintained on IV Lasix. Patient seen and examined at bedside. She continues to have some shortness of breath and lower extremity edema. She continues to have more frequent bowel movements however they are formed. I told her that we will not retest for C. diff and these become liquid and she is in agreement. She has been taking a probiotic at home. Vital signs reviewed General: nontoxic, no distress, appears at stated age Cardiovascular: S1S2 reg, no murmur, positive posterior tibial pulse bilateral, Lungs: Decreased breath sounds bilateral, no rhonchi, no rales , no accessory muscle use Abdominal: soft, nontender to palpation, no guarding, no appreciable organomegaly Ext: no gross muscle atrophy, 2+ pitting edema b/l lower extremities, no contractures Neuro: CN II-XI grossly intact, no focal neuro deficits Psych: Alert, oriented, appropriate affect Assessment/Plan: Acute exacerbation of diastolic congestive heart failure, moderate pulmonary hypertension Paroxysmal atrial fibrillation, rate controlled CAD status post CABG 3 Hypertension Hyperlipidemia -Continue with Lasix 40 mg IV twice daily, metolazone 5 mg daily -Strict I's and O's, daily weights -Metoprolol 50 mg daily, patient was taking Cozaar however this has been held for her increased creatinine -Continue with Eliquis 5 mg twice daily, amiodarone 200 mg twice daily -Norvasc 5 mg daily discontinued with low BP to allow more room for diuresis -Lipitor 40 mg daily [place], possible cardio renal syndrome - continue with IV diuretics - cozaar on hold - follow Cr, avoid additional nephrotoxic agents - await Nephro recs Loose stools - unable to test for C diff as formed add lactobacillus - limit treatment for UTI as able Gram neg Bacilli UTI - Rocephin 1 g IV daily - await culture - smallest treatement duration available with recent C diff. Chronic hypoxic respiratory failure secondary to advanced COPD, without exacerbation -Continue with Ventolin, Symbicort, Singulair -DuoNeb as needed Insulin-dependent diabetes mellitus. Episode of hypoglycemia -Continue to follow blood sugars, continue with sliding scale -Continue to hold Lantus 30 units every a.m. fasting blood sugar was 120. Transaminitis, chronic and stable upon review of previous labs. Imaging: -None new for review Data Review: Labs reviewed and remarkable for sodium 135, creatinine 1.93, glucose 169 Vitals reviewed and T-max the last 24 hours 98, blood pressure has been ranging from 95/55 to T-max of 114/49 DVT prophylaxis: Eliquis Anticipated discharge date: in 24-[address]: This dictation was prepared using [employer] voice recognition software. Though every attempt is made to correct errors during dictation some may still exist. Objective - Vital Signs Vital signs: Vital Signs Temp 98.0 F 12/01/22 09:07 Pulse 60 12/01/22 09:07 Resp 18 12/01/22 09:07 BP 95/55 12/01/22 09:07 Pulse Ox 92 L 12/01/22 09:07 FiO2 Intake & Output 11/30/22 12/01/22 12/01/22 18:59 06:59 18:59 Intake Total 350 222 110 Output Total 550 250 650 Balance -200 -28 -540 Weight 89.5 kg Intake: IV 20 Invasive Line 1 20 Oral 330 222 110 Output: Urine 550 250 650 Other: Voiding Method Bedside Commode Bedside Commode Bedside Commode # Voids 1 2 # Bowel Movements 1 1 - Labs CBC & Chem 7: 11/30/22 08:39 08/16/23 08:10 Labs: Abnormal Lab Results - Last 24 Hours (Table) 11/30/22 12/01/22 12/01/22 Range/Units 20:24 03:44 06:19 Sodium (137-145) mmol/L BUN (7-17) mg/dL Creatinine (0.52-1.04) mg/dL Glucose (74-99) mg/dL POC Glucose (mg/dL) 134 H 118 H 120 H (70-110) mg/dL 12/01/22 Range/Units 08:10 Sodium 135 L (137-145) mmol/L BUN 57 H (7-17) mg/dL Creatinine 1.93 H (0.52-1.04) mg/dL Glucose 169 H (74-99) mg/dL POC Glucose (mg/dL) (70-110) mg/dL Microbiology - Last 24 Hours (Table) 11/30/22 04:30 Urine Culture - Preliminary Urine,Voided Gram Neg Bacilli
--- NOTE | 2022-12-01 11:56 | P.NPCON ---
History of Present Illness - Reason for Consult acute renal failure - History of Present Illness Patient is a 67-year-old female with history of COPD, coronary artery disease status post coronary artery bypass surgery, CHF who is admitted to the hospital with increased lower extremity swelling and shortness of breath. Patient has also been complaining of increased weakness. No significant urinary symptoms. Patient is currently being diuresed for volume overload. Serum creatinine was 1.89 on admission and it is 1.9 today. Previous creatinine was 1.2 on 11/22/2022 and 0.9 on 11/20/2022. Blood pressure has been low with systolic in the 90s and 80s. Patient has been voiding. No NSAIDs noted on home med list. Cozaar is currently on hold. Review of Systems As per HPI. 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 spontaneous pneumothorax, bowel resection for sepsis/infection,cut on toe History of Any Multi-Drug Resistant Organisms: ESBL Date of last positivie culture/infection: 06/29/21 MDRO Source:: ESBL BACK Past Surgical History: Back Surgery, Bowel Resection, Breast Surgery, Cholecystectomy, Coronary Bypass/CABG, Ear Surgery, Tonsillectomy Additional Past Surgical History / Comment(s): triple bypass 2013, left salpingo-oophorectomy, laminectomy L4 L5x3, ear surgery x 3 Past Anesthesia/Blood Transfusion Reactions: No Reported Reaction Past Psychological History: Anxiety, Depression Smoking Status: Former smoker Past Alcohol Use History: Occasional Past Drug Use History: None Reported - Past Family History Mother Family Medical History: Cancer Medications and Allergies Home Medications Medication Instructions Recorded Confirmed Type Atorvastatin [Lipitor] 40 mg PO HS 03/23/16 11/29/22 History DULoxetine HCL [Cymbalta] 60 mg PO DAILY 03/23/16 11/29/22 History Metoprolol Tartrate [Lopressor] 50 mg PO BID 03/23/16 11/29/22 History Omeprazole [PriLOSEC] 20 mg PO DAILY 03/23/16 11/29/22 History Montelukast [Singulair] 10 mg PO DAILY 05/18/21 11/29/22 History Gabapentin 600 mg PO TID 06/29/21 11/29/22 History Budesonide-Formot 160-4.5 Mcg 2 puff INHALATION RT-BID 04/06/22 11/29/22 History [Symbicort 160-4.5 Mcg Inhaler] Biotin [Biotin Disolve] 10,000 mcg PO DAILY 09/03/22 11/29/22 History Letrozole [Femara] 2.5 mg PO DAILY 09/03/22 11/29/22 History Apixaban [Eliquis] 5 mg PO BID 09/06/22 11/29/22 History Cholecalciferol [Vitamin D3 (125 125 mcg PO DAILY 09/06/22 11/29/22 History Mcg = 5000 Iu)] Cyanocobalamin (Vitamin B-12) 2,000 mcg PO DAILY 09/06/22 11/29/22 History [Vitamin B-12] HYDROcodone/APAP 10-325MG [[place] 1 tab PO Q6H 09/06/22 11/29/22 History 10-325] Ascorbic Acid [Vitamin C] 250 mg PO DAILY #60 tab 09/09/22 11/29/22 Rx Ferrous Sulfate [Iron (65 MG 325 mg PO W/LUNCH #60 tab 09/09/22 11/29/22 Rx Elemental)] Albuterol Inhaler [Ventolin Hfa 2 puff INHALATION RT-QID PRN 11/10/22 11/29/22 History Inhaler] Amiodarone [Cordarone] 200 mg PO BID 11/10/22 11/29/22 History amLODIPine [Norvasc] 5 mg PO BID 11/10/22 11/29/22 History Ondansetron Odt [Zofran ODT] 4 mg PO Q8HR PRN #30 tab 11/11/22 11/29/22 Rx Furosemide [Lasix] 40 mg PO BID@0900,1600 #60 tab 11/22/22 11/29/22 Rx Losartan [Cozaar] 25 mg PO DAILY #30 tab 11/22/22 11/29/22 Rx metOLazone [Zaroxolyn] 5 mg PO DAILY #30 tab 11/22/22 11/29/22 Rx Insulin Glargine,Hum.rec.anlog 30 units SQ HS 11/29/22 11/29/22 History [Lantus Solostar Pen] Lactobacillus Acidophilus 1 cap PO DAILY 11/29/22 11/29/22 History [Acidophilus Probiotic] Ubidecarenone [Coenzyme Q10] 200 mg PO DAILY 11/29/22 11/29/22 History Allergies Allergy/AdvReac Type Severity Reaction Status Date / Time morphine Allergy rash,itchin Verified 11/29/22 17:54 g Sulfa (Sulfonamide Allergy Rash/Hives Verified 11/29/22 17:54 Antibiotics) amoxicillin [From Augmentin] AdvReac Diarrhea Verified 11/29/22 17:54 clavulanic acid AdvReac Diarrhea Verified 11/29/22 17:54 [From Augmentin] surgical susy AdvReac infection Uncoded 11/29/22 17:54 Physical Exam Vitals: Vital Signs Temp Pulse Resp BP Pulse Ox 12/01/22 09:07 98.0 F 60 18 95/55 92 L 12/01/22 08:57 92 L 12/01/22 03:06 97.8 F 60 18 114/49 90 L 12/01/22 02:00 56 L 18 11/30/22 23:35 97.9 F 56 L 18 103/51 91 L 11/30/22 20:00 97.7 F 55 L 16 100/50 90 L 11/30/22 16:07 97.8 F 59 L 18 99/64 92 L Intake and Output 11/30/22 12/01/22 12/01/22 22:59 06:59 14:59 Intake Total 332 0 110 Output Total 400 0 650 Balance -68 0 -540 Intake: Oral 332 0 110 Output: Urine 400 0 650 Other: Voiding Method Bedside Commode Bedside Commode Bedside Commode # Voids 1 2 # Bowel Movements 1 Weight 89.5 kg Patient is awake, comfortable, mildly short of breath. No acute distress Examination of the heart S1 and S2 Examination of the lungs bilateral breath sounds are heard Abdomen is soft distended nontender Examination lower extremity shows edema 2+ bilaterally [employer] exam grossly intact Results - Lab Results Most recent lab results Calcium 8.7 mg/dL (8.4-10.2) 12/01/22 08:10 Magnesium 1.9 mg/dL (1.6-2.3) 11/29/22 15:28 11/30/22 08:39 12/01/22 08:10 Assessment and Plan Assessment: 1. Acute kidney injury, nonoliguric ATN and cardiorenal syndrome. Rule out obstructive uropathy. UA shows 1+ protein large blood WBCs 94. 2. Volume overload currently being diuresed 3. Acute on chronic diastolic CHF. EF 60-65% on echocardiogram in August 2022. 4. Hypertension with blood pressure currently low. Currently off of angiotensin receptor blockers. I will DC the Norvasc as well. 5. Paroxysmal A. fib with controlled ventricular response 6. Coronary artery disease with history of coronary artery bypass surgery 7. UTI with urine culture growing gram-negative bacilli Plan: Continue with IV Lasix Continue with IV antibiotics Check ultrasound of the kidneys Continue to hold off on angiotensin receptor blockers DC Norvasc Continue off of metformin Check bladder scan Thank you for the consultation. We will continue to follow the patient with you during her hospitalization.
[2022-12-01] MEDS: FERROUS SULFATE 325 MG TAB PO SCH (12:59)
--- NOTE | 2022-12-01 15:26 | P.PN ---
Subjective Progress Note Date: 12/01/22 History of present illness: This is a 67-year-old female with history of COPD on home O2, coronary artery disease status post bypass surgery, atrial fibrillation, DM type II, hypertension, hyperlipidemia. Patient was established with Dr. Broderick during a hospitalization in early November. Patient has had several recent hospitalizations due to see distal colitis. Patient states that she developed pale blue fingernails and some confusion and her physician told her to come into the hospital for further evaluation. She states she has recently lost weight. No weight gain. She states she has some lower extremity edema which has been chronic. She denies any cough, no fever or chills. She does state that about one time per week she has a short period of palpitations. We have been asked to evaluate the patient for congestive heart failure. EKG atrial fibrillation 52 bpm Chest x-ray: Low lung volumes with generalized hazy appearance which could represent atelectasis versus pulmonary edema. WBC 8.1, hemoglobin 10.2, platelet count 185. Sodium 135. Potassium 3.5, BUN 53 creatinine 2.07. ProBNP 2320. Troponin negative 1. AST 90, ALT 39, alkaline phosphatase 129. UA positive for urinary tract infection. Influenza A, influenza B, RSV, Covid 19 not detected. Home cardiac medications: Amiodarone 200 mg twice daily, amlodipine 5 mg twice daily, eliquis 5 mg twice daily, Lipitor 40 mg at bedtime, Lasix 40 mg twice daily, losartan 25 mg daily, Zaroxolyn 5 mg daily, Lopressor 50 mg twice daily Echocardiogram 08/2022 revealed normal LV systolic function, moderate pulmonary hypertension, left atrial enlargement. 12/01 Patient is seen today in follow-up. Her blood pressure has been on the low side and Norvasc was held last night and this morning. She has been on IV Lasix 40 every 12 hours. Blood pressure 95/55, heart rate in the 60s. Patient states that her breathing is okay today. She has minimal lower extremity edema. She has a negative fluid balance of 228. Weight is noted to be down 2 kg. Repeat blood work reveals potassium 3.7, BUN 57 creatinine 1.93. Physical examination: Gen: This is a 67-year-old female, she is sitting and appears to be comfortable. No acute respiratory distress noted. VS: reviewed HEENT: Head is atraumatic, normocephalic. Pupils equal, round. Sclerae is anicteric. NECK: Supple. No JVD. LUNGS: Diminished air entry at the right base. HEART: Regular rate and rhythm. Systolic murmur at the left lower sternal border ABDOMEN: Soft No tenderness. EXTREMITIES: Trace pedal edema. No calf tenderness. Assessment: Acute COPD exacerbation Chronic hypoxic respiratory failure on home O2 Acute exacerbation of chronic diastolic heart failure Possible pneumonia, on IV antibiotics Coronary artery disease status post coronary artery bypass graft Paroxysmal atrial fibrillation Hypertension Hyperlipidemia Recent C. difficile colitis Possible UTI Plan: Continue patient's home cardiac medications, discontinue Norvasc Continue patient on IV Lasix 40 mg twice daily Monitor I&O, daily weights, I's O, electrolytes and renal function No need to repeat echocardiogram as this was done in August. Further recommendations to follow based upon clinical course Nurse practitioner note has been reviewed, I agree with documented findings and plan of care. Patient was seen and examined. Objective - Vital Signs Vital signs: Vital Signs Temp 98.0 F 12/01/22 12:56 Pulse 66 12/01/22 12:56 Resp 18 12/01/22 12:56 BP 101/40 12/01/22 12:56 Pulse Ox 92 L 12/01/22 12:56 FiO2 Intake & Output 11/30/22 12/01/22 12/01/22 18:59 06:59 18:59 Intake Total 350 222 110 Output Total 550 250 718 Balance -200 -28 -608 Weight 89.5 kg Intake: IV 20 Invasive Line 1 20 Oral 330 222 110 Output: Urine 550 250 650 Post Void Residual 68 Other: Voiding Method Bedside Commode Bedside Commode Bedside Commode # Voids 1 2 1 # Bowel Movements 1 1 1 - Labs CBC & Chem 7: 11/30/22 08:39 12/01/22 08:10 Labs: Abnormal Lab Results - Last 24 Hours (Table) 11/30/22 12/01/22 12/01/22 Range/Units 20:24 03:44 06:19 Sodium (137-145) mmol/L BUN (7-17) mg/dL Creatinine (0.52-1.04) mg/dL Glucose (74-99) mg/dL POC Glucose (mg/dL) 134 H 118 H 120 H (70-110) mg/dL 12/01/22 12/01/22 Range/Units 08:10 11:23 Sodium 135 L (137-145) mmol/L BUN 57 H (7-17) mg/dL Creatinine 1.93 H (0.52-1.04) mg/dL Glucose 169 H (74-99) mg/dL POC Glucose (mg/dL) 229 H (70-110) mg/dL Microbiology - Last 24 Hours (Table) 11/30/22 04:30 Urine Culture - Preliminary Urine,Voided Gram Neg Bacilli
[2022-12-01 16:21] LABS: Glucose,Whole Blood 104 mg/dL (70-110)
[2022-12-01] MEDS: HYDROcodone/APAP 10-325MG 1 EACH TAB PO PRN (17:26)
[2022-12-01 20:02] LABS: Glucose,Whole Blood 157 mg/dL (70-110)
[2022-12-01] MEDS: ATORVASTATIN 40 MG TAB PO SCH (21:32)
[2022-12-01] MEDS: ACETAMINOPHEN TAB 325 MG TAB PO PRN (22:24)
--- NOTE | 2022-12-01 23:58 | US ---
EXAMINATION TYPE: US renals and bladder DATE OF EXAM: 12/01/2022 COMPARISON: NONE CLINICAL INDICATION: Female, 67 years old with history of VALENTINA; VALENTINA EXAM MEASUREMENTS: Right Kidney: 8.6 x 3.8 x 3.3 cm Left Kidney: 11.2 x 4.8 x 3.5 cm Right Kidney: Cortical thining Left Kidney: No hydronephrosis or masses seen Bladder: Anechoic Bilateral Jets seen: no left only IMPRESSION: 1. Cortical thinning of the right kidney. Correlate for right renal failure
[2022-12-02 02:07] LABS: Glucose,Whole Blood 118 mg/dL (70-110)
[2022-12-02 06:13] LABS: Glucose,Whole Blood 124 mg/dL (70-110)
[2022-12-02] MEDS: FUROSEMIDE 10 MG/ML 4 ML VIAL IV SCH ×2 (06:16→17:38)
[2022-12-02] MEDS: INSULIN ASPART (NovoLOG) 100 UNIT/ML VIAL SQ SCH ×4 (06:16→21:22)
[2022-12-02] MEDS: NON FORMULARY DRUG (Ubidecarenone [Coenzyme Q10] 200 MG Capsule) PO SCH (07:46)
[2022-12-02] MEDS: GABAPENTIN 300 MG CAP PO SCH ×3 (07:55→21:30)
[2022-12-02] MEDS: APIXABAN 5 MG TAB PO SCH ×2 (07:55→21:31)
[2022-12-02] MEDS: LACTOBACILLUS ACIDOPHILUS/PECT 1 EACH CAPSULE PO SCH ×2 (07:56→21:30)
[2022-12-02] MEDS: metOLazone 5 MG TAB PO SCH (07:56)
[2022-12-02] MEDS: ASCORBIC ACID 500 MG TAB PO SCH (07:56)
[2022-12-02] MEDS: METOPROLOL TARTRATE 50 MG TAB PO SCH ×2 (07:56→21:31)
[2022-12-02] MEDS: MONTELUKAST 10 MG TAB PO SCH (07:56)
[2022-12-02] MEDS: AMIODARONE 200 MG TAB PO SCH ×2 (07:56→21:31)
[2022-12-02] MEDS: LETROZOLE 2.5 MG TAB PO SCH (07:56)
[2022-12-02] MEDS: CHOLECALCIFEROL 125 MCG (5000 IU) TABLET PO SCH (07:56)
[2022-12-02] MEDS: DULoxetine HCL 60 MG CAPSULE.DR PO SCH (07:56)
--- NOTE | 2022-12-02 08:40 | XR ---
EXAMINATION TYPE: XR chest 1V portable DATE OF EXAM: 12/02/2022 7:16 AM COMPARISON: Chest radiographs from 11/29/2022 TECHNIQUE: XR chest 1V portable Frontal view of the chest. CLINICAL INDICATION:Female, 67 years old with history of CHF; FINDINGS: Lungs/Pleura: There is no evidence of pleural effusion, focal consolidation, or pneumothorax. Pulmonary vascularity: Unremarkable. Heart/mediastinum: Cardiomediastinal silhouette is unremarkable. Musculoskeletal: No acute osseous pathology. Midline sternotomy wires are noted. Other findings: There are stimulator leads projecting over the spine. IMPRESSION: 1. Improved pulmonary vascular congestion. 2. COPD.
[2022-12-02] MEDS: SYMBICORT 160-4.5 MCG INHALER INHALATION SCH ×2 (09:15→20:46)
[2022-12-02 09:31] LABS: African American GFR (CKD) 45 (>60 ml/min/1.73 sqM); Anion Gap 9 mmol/L; Blood Urea Nitrogen 56 mg/dL (7-17); Calcium 8.8 mg/dL (8.4-10.2); Carbon Dioxide 27 mmol/L (22-30); Chloride 100 mmol/L (98-107); Glucose 137 mg/dL (74-99); Magnesium 1.8 mg/dL (1.6-2.3); Non-African American GFR(CKD) 39 (>60 ml/min/1.73 sqM); Potassium 3.4 mmol/L (3.5-5.1); Sodium 136 mmol/L (137-145)
[2022-12-02] MEDS ORDERED: Potassium Replacement Protocol 1 EACH MISC MISCELLANE PRN (10:26)
[2022-12-02] MEDS: POTASSIUM CHLORIDE ER 20 MEQ TAB.ER PO SCH ×2 (11:35→12:37)
[2022-12-02] MEDS: FERROUS SULFATE 325 MG TAB PO SCH (11:35)
[2022-12-02] MEDS: HYDROcodone/APAP 10-325MG 1 EACH TAB PO PRN ×2 (11:35→22:13)
[2022-12-02 11:41] LABS: Glucose,Whole Blood 133 mg/dL (70-110)
[2022-12-02] MEDS: ONDANSETRON ODT 4 MG TAB PO PRN (12:37)
--- NOTE | 2022-12-02 12:56 | P.PN ---
Subjective Patient is seen for follow-up for acute kidney injury. Currently being diuresed for volume overload. Blood pressure has also been low. Angiotensin receptor blockers on hold. Renal function has improved with creatinine down to 1.3 from peak at 2.0. Objective - Vital Signs Vital signs: Vital Signs Temp 98 F 12/02/22 08:00 Pulse 60 12/02/22 08:00 Resp 20 12/02/22 08:00 BP 104/50 12/02/22 08:00 Pulse Ox 94 L 12/02/22 08:00 FiO2 Intake & Output 12/01/22 12/02/22 12/02/22 18:59 06:59 18:59 Intake Total 220 118 Output Total 173 285 1931 Balance -497 -200 1082 Weight 91.4 kg Intake: Oral 220 118 Output: Urine 650 200 Post Void Residual 68 Urine/Stool Mix 1200 Other: Voiding Method Bedside Commode Bedside Commode Bedside Commode # Voids 4 1 # Bowel Movements 1 1 - Exam Patient is awake, comfortable, mildly short of breath. No acute distress Examination of the heart S1 and S2 Examination of the lungs bilateral breath sounds are heard Abdomen is soft distended nontender Examination lower extremity shows edema 1+ bilaterally [employer] exam grossly intact - Labs CBC & Chem 7: 11/30/22 08:39 12/02/22 08:40 Labs: Abnormal Lab Results - Last 24 Hours (Table) 12/01/22 12/02/22 12/02/22 Range/Units 19:59 02:06 06:08 Sodium (137-145) mmol/L Potassium (3.5-5.1) mmol/L BUN (7-17) mg/dL Creatinine (0.52-1.04) mg/dL Glucose (74-99) mg/dL POC Glucose (mg/dL) 157 H 118 H 124 H (70-110) mg/dL 12/02/22 12/02/22 Range/Units 08:40 11:38 Sodium 136 L (137-145) mmol/L Potassium 3.4 L (3.5-5.1) mmol/L BUN 56 H (7-17) mg/dL Creatinine 1.38 H (0.52-1.04) mg/dL Glucose 137 H (74-99) mg/dL POC Glucose (mg/dL) 133 H (70-110) mg/dL Microbiology - Last 24 Hours (Table) 11/30/22 04:30 Urine Culture - Final Urine,Voided Proteus mirabilis Assessment and Plan Assessment: 1. Acute kidney injury, nonoliguric ATN and cardiorenal syndrome. . UA shows 1+ protein large blood WBCs 94. No obstruction noted on ultrasound of the kidneys. 2. Volume overload currently being diuresed 3. Acute on chronic diastolic CHF. EF 60-65% on echocardiogram in August 2022. 4. Hypertension with blood pressure currently low. Currently off of angiotensin receptor blockers. I will DC the [employer] as well. 5. Paroxysmal A. fib with controlled ventricular response 6. Coronary artery disease with history of coronary artery bypass surgery 7. UTI with urine culture growing gram-negative bacilli Plan: Continue with IV Lasix Continue with antibiotics Repeat labs in a.m. Accurate I's and O's Replace potassium
--- NOTE | 2022-12-02 14:07 | P.PN ---
Subjective Progress Note Date: 12/02/22 History of present illness: This is a 67-year-old female with history of COPD on home O2, coronary artery disease status post bypass surgery, atrial fibrillation, DM type II, hypertension, hyperlipidemia. Patient was established with Dr. Broderick during a hospitalization in early November. Patient has had several recent hospitalizations due to see distal colitis. Patient states that she developed pale blue fingernails and some confusion and her physician told her to come into the hospital for further evaluation. She states she has recently lost weight. No weight gain. She states she has some lower extremity edema which has been chronic. She denies any cough, no fever or chills. She does state that about one time per week she has a short period of palpitations. We have been asked to evaluate the patient for congestive heart failure. EKG atrial fibrillation 52 bpm Chest x-ray: Low lung volumes with generalized hazy appearance which could represent atelectasis versus pulmonary edema. WBC 8.1, hemoglobin 10.2, platelet count 185. Sodium 135. Potassium 3.5, BUN 53 creatinine 2.07. ProBNP 2320. Troponin negative 1. AST 90, ALT 39, alkaline phosphatase 129. UA positive for urinary tract infection. Influenza A, influenza B, RSV, Covid 19 not detected. Home cardiac medications: Amiodarone 200 mg twice daily, amlodipine 5 mg twice daily, eliquis 5 mg twice daily, Lipitor 40 mg at bedtime, Lasix 40 mg twice daily, losartan 25 mg daily, Zaroxolyn 5 mg daily, Lopressor 50 mg twice daily Echocardiogram 08/2022 revealed normal LV systolic function, moderate pulmonary hypertension, left atrial enlargement. 12/01 Patient is seen today in follow-up. Her blood pressure has been on the low side and Norvasc was held last night and this morning. She has been on IV Lasix 40 every 12 hours. Blood pressure 95/55, heart rate in the 60s. Patient states that her breathing is okay today. She has minimal lower extremity edema. She has a negative fluid balance of 228. Weight is noted to be down 2 kg. Repeat blood work reveals potassium 3.7, BUN 57 creatinine 1.93. 12/02 Breathing status seems to be stable. Patient is complaining of feeling tired. She continues to have lower extremity edema. Blood pressure 101/50, heart rate in the 60s. Potassium is 3.4, BUN 56 creatinine 1.38. Potassium has been replaced. Repeat chest x-ray reveals improved pulmonary vascular congestion and COPD. Physical examination: Gen: This is a 67-year-old female, she is sitting and appears to be comfortable. No acute respiratory distress noted. VS: reviewed HEENT: Head is atraumatic, normocephalic. Pupils equal, round. Sclerae is anicteric. NECK: Supple. No JVD. LUNGS: Diminished air entry at the right base. HEART: Regular rate and rhythm. Systolic murmur at the left lower sternal border ABDOMEN: Soft No tenderness. EXTREMITIES: Trace pedal edema. No calf tenderness. Assessment: Acute COPD exacerbation Chronic hypoxic respiratory failure on home O2 Acute exacerbation of chronic diastolic heart failure Possible pneumonia, on IV antibiotics Coronary artery disease status post coronary artery bypass graft Paroxysmal atrial fibrillation Hypertension Hyperlipidemia Recent C. difficile colitis Possible UTI Plan: Continue patient's home cardiac medications, discontinue Norvasc Continue patient on IV Lasix 40 mg twice daily Monitor I&O, daily weights, I's O, electrolytes and renal function No need to repeat echocardiogram as this was done in August. Further recommendations to follow based upon clinical course Nurse practitioner note has been reviewed, I agree with documented findings and plan of care. Patient was seen and examined. Objective - Vital Signs Vital signs: Vital Signs Temp 98 F 12/02/22 08:00 Pulse 60 12/02/22 08:00 Resp 20 12/02/22 08:00 BP 104/50 12/02/22 08:00 Pulse Ox 94 L 12/02/22 08:00 FiO2 Intake & Output 12/01/22 12/02/22 12/02/22 18:59 06:59 18:59 Intake Total 220 118 Output Total 128 284 4941 Balance -498 200 1082 Weight 91.4 kg Intake: Oral 220 118 Output: Urine 650 200 Post Void Residual 68 Urine/Stool Mix 1200 Other: Voiding Method Bedside Commode Bedside Commode Bedside Commode # Voids 4 1 # Bowel Movements 1 1 - Labs CBC & Chem 7: 11/30/22 08:39 12/02/22 08:40 Labs: Abnormal Lab Results - Last 24 Hours (Table) 12/01/22 12/01/22 12/02/22 Range/Units 11:23 19:59 02:06 Sodium (137-145) mmol/L Potassium (3.5-5.1) mmol/L BUN (7-17) mg/dL Creatinine (0.52-1.04) mg/dL Glucose (74-99) mg/dL POC Glucose (mg/dL) 229 H 157 H 118 H (70-110) mg/dL 12/02/22 12/02/22 Range/Units 06:08 08:40 Sodium 136 L (137-145) mmol/L Potassium 3.4 L (3.5-5.1) mmol/L BUN 56 H (7-17) mg/dL Creatinine 1.38 H (0.52-1.04) mg/dL Glucose 137 H (74-99) mg/dL POC Glucose (mg/dL) 124 H (70-110) mg/dL Microbiology - Last 24 Hours (Table) 11/30/22 04:30 Urine Culture - Final Urine,Voided Proteus mirabilis
[2022-12-02 16:19] LABS: Glucose,Whole Blood 122 mg/dL (70-110)
[2022-12-02] MEDS: ACETAMINOPHEN TAB 325 MG TAB PO PRN (16:28)
--- NOTE | 2022-12-02 17:12 | P.PN ---
Subjective Progress Note Date: 12/02/22 (delayed charting seen at 1430) Patient is a well female with COPD on home O2 at 2-3 L, A. fib anticoagulated with Eliquis, diastolic CHF, coronary artery disease, hypertension, dyslipidem ia, insulin-dependent diabetes, and multiple other comorbid conditions who presented to the emergency department with weakness and diarrhea. Of note, She has had multiple admissions over the last 30 days: 11/10/22-11/12/22 treated for C diff, completed 10 day course of oral vancomycin, 11/17/22-11/22/22 treated for CHF In the emergency room she underwent an extensive evaluation. Chest x-ray showed possible pulmonary edema versus atelectasis, EKG showed rate controlled A. fib at 52 bpm with a right bundle branch block, vital signs were remarkable for SpO2 of 92% on 6 L nasal cannula and a blood pressure of 92/44. Laboratory analysis was remarkable for hemoglobin 10.7, potassium 3.3, BUN 50, creatinine 1.89 (up from baseline of 0.9), AST 90, ALT 39, alkaline phosphatase 129. A urine was co nsistent with urinary tract infection. Patient was started on IV Lasix and Rocephin. Arrangements are made for admission. Cardiology was consulted and she was maintained on IV Lasix. She diuresied well, her Cr was elevated and nephrology was consulted this improved with diuresis. Patient seen and examined at bedside. Feeling better today. Breathing easier. Less swelling. Vital signs reviewed General: nontoxic, no distress, appears at stated age Cardiovascular: S1S2 reg, no murmur, positive posterior tibial pulse bilateral, Lungs: Decreased breath sounds bilateral, no rhonchi, no rales , no accessory muscle use Abdominal: soft, nontender to palpation, no guarding, no appreciable o rganomegaly Ext: no gross muscle atrophy, 2+ pitting edema b/l lower extremities, no contractures Neuro: CN II-XI grossly intact, no focal neuro deficits Psych: Alert, oriented, appropriate affect Assessment/Plan: Acute exacerbation of diastolic congestive heart failure, moderate pulmonary hypertension VALENTINA, due to cardio renal syndrome Paroxysmal atrial fibrillation, rate controlled CAD status post CABG 3 Hypertension Hyperlipidemia -Nephrology note reviewed: Continue with IV Lasix, antibiotics, repeat labs in a.m. -Cardiology note reviewed: Continue with Lasix -Continue with Lasix 40 mg IV twice daily, metolazone 5 mg daily -Strict I's and O's, daily weights -Metoprolol 50 mg daily, patient was taking Cozaar however this has been held for her increased creatinine -Continue with Eliquis 5 mg twice daily, amiodarone 200 mg twice daily -Norvasc 5 mg daily discontinued with low BP to allow more room for diuresis -Lipitor 40 mg daily - follow Cr, avoid additional nephrotoxic agents Loose stools - unable to test for C diff as formed - lactobacillus Proteus urinary tract infection - D/C rocephine as sensitive and completed 3 days Chronic hypoxic respiratory failure secondary to advanced COPD, without exacerbation -Continue with Ventolin, Symbicort, Singulair -DuoNeb as needed Insulin-dependent diabetes mellitus. Episode of hypoglycemia -Continue to follow blood sugars, continue with sliding scale -Continue to hold Lantus 30 units every a.m. fasting blood sugar was 120. Transaminitis, chronic and stable upon review of previous labs. Imaging: Renal ultrasound-cortical thinning of the right kidney Chest [id number] in pulmonary vascular congestion Data Review: As reviewed and remarkable for sodium 136, potassium 3.4, BUN 56, creatinine 1.38, glucose 122 Vitals reviewed and patient's O2 sat has been 94-97 on 4 L nasal cannula, a.m. blood pressure was 104/50, pulse 68, patient afebrile for the last 24 hours DVT prophylaxis: Eliquis Anticipated discharge date: in AM Anticipated discharge place: This dictation was prepared using [employer] voice recognition software. Though every attempt is made to correct errors during dictation some may still exist. Objective - Vital Signs Vital signs: Vital Signs Temp 97.9 F 12/02/22 16:00 Pulse 61 12/02/22 16:00 Resp 18 12/02/22 16:00 BP 114/61 12/02/22 16:00 Pulse Ox 90 L 12/02/22 16:00 FiO2 Intake & Output 12/01/22 12/02/22 12/02/22 18:59 06:59 18:59 Intake Total 220 118 Output Total 753 776 8789 Balance -498 200 -1082 Weight 91.4 kg Intake: Oral 220 118 Output: Urine 650 200 Post Void Residual 68 Urine/Stool Mix 1200 Other: Voiding Method Bedside Commode Bedside Commode Bedside Commode # Voids 4 1 # Bowel Movements 1 1 - Labs CBC & Chem 7: 11/30/22 08:39 12/02/22 08:40 Labs: Abnormal Lab Results - Last 24 Hours (Table) 12/01/22 12/02/22 12/02/22 Range/Units 19:59 02:06 06:08 Sodium (137-145) mmol/L Potassium (3.5-5.1) mmol/L BUN (7-17) mg/dL Creatinine (0.52-1.04) mg/dL Glucose (74-99) mg/dL POC Glucose (mg/dL) 157 H 118 H 124 H (70-110) mg/dL 12/02/22 12/02/22 12/02/22 Range/Units 08:40 11:38 16:14 Sodium 136 L (137-145) mmol/L Potassium 3.4 L (3.5-5.1) mmol/L BUN 56 H (7-17) mg/dL Creatinine 1.38 H (0.52-1.04) mg/dL Glucose 137 H (74-99) mg/dL POC Glucose (mg/dL) 133 H 122 H (70-110) mg/dL Microbiology - Last 24 Hours (Table) 11/30/22 04:30 Urine Culture - Final Urine,Voided Proteus mirabilis
[2022-12-02 20:14] LABS: Glucose,Whole Blood 119 mg/dL (70-110)
[2022-12-02] MEDS: ATORVASTATIN 40 MG TAB PO SCH (21:31)
[2022-12-03 02:12] LABS: Glucose,Whole Blood 120 mg/dL (70-110)
[2022-12-03 06:25] LABS: Glucose,Whole Blood 114 mg/dL (70-110)
[2022-12-03] MEDS: INSULIN ASPART (NovoLOG) 100 UNIT/ML VIAL SQ SCH ×3 (06:26→17:31)
[2022-12-03] MEDS: FUROSEMIDE 10 MG/ML 4 ML VIAL IV SCH ×2 (06:35→16:40)
[2022-12-03] MEDS: SYMBICORT 160-4.5 MCG INHALER INHALATION SCH ×2 (07:33→21:15)
[2022-12-03] MEDS: LETROZOLE 2.5 MG TAB PO SCH (08:27)
[2022-12-03] MEDS: GABAPENTIN 300 MG CAP PO SCH ×3 (08:27→21:59)
[2022-12-03] MEDS: AMIODARONE 200 MG TAB PO SCH ×2 (08:27→21:59)
[2022-12-03] MEDS: CHOLECALCIFEROL 125 MCG (5000 IU) TABLET PO SCH (08:27)
[2022-12-03] MEDS: DULoxetine HCL 60 MG CAPSULE.DR PO SCH (08:27)
[2022-12-03] MEDS: LACTOBACILLUS ACIDOPHILUS/PECT 1 EACH CAPSULE PO SCH ×2 (08:27→21:59)
[2022-12-03] MEDS: ASCORBIC ACID 500 MG TAB PO SCH (08:27)
[2022-12-03] MEDS: MONTELUKAST 10 MG TAB PO SCH (08:27)
[2022-12-03] MEDS: metOLazone 5 MG TAB PO SCH (08:27)
[2022-12-03] MEDS: APIXABAN 5 MG TAB PO SCH ×2 (08:27→21:59)
[2022-12-03] MEDS: METOPROLOL TARTRATE 50 MG TAB PO SCH ×2 (08:27→21:59)
[2022-12-03] MEDS: NON FORMULARY DRUG (Ubidecarenone [Coenzyme Q10] 200 MG Capsule) PO SCH (08:32)
[2022-12-03 10:00] LABS: African American GFR (CKD) 61 (>60 ml/min/1.73 sqM); Anion Gap 8 mmol/L; Blood Urea Nitrogen 61 mg/dL (7-17); Calcium 9.2 mg/dL (8.4-10.2); Carbon Dioxide 31 mmol/L (22-30); Chloride 98 mmol/L (98-107); Glucose 153 mg/dL (74-99); Magnesium 1.6 mg/dL (1.6-2.3); Non-African American GFR(CKD) 53 (>60 ml/min/1.73 sqM); Potassium 3.6 mmol/L (3.5-5.1); Sodium 137 mmol/L (137-145)
[2022-12-03 11:17] LABS: Glucose,Whole Blood 123 mg/dL (70-110)
[2022-12-03] MEDS: HYDROcodone/APAP 10-325MG 1 EACH TAB PO PRN ×2 (12:06→21:59)
[2022-12-03] MEDS: FERROUS SULFATE 325 MG TAB PO SCH (12:06)
--- NOTE | 2022-12-03 13:01 | P.PN ---
Subjective Progress Note Date: 12/03/22 History of present illness: This is a 67-year-old female with history of COPD on home O2, coronary artery disease status post bypass surgery, atrial fibrillation, DM type II, hypertension, hyperlipidemia. Patient was established with Dr. Broderick during a hospitalization in early November. Patient has had several recent hospitalizations due to see distal colitis. Patient states that she developed pale blue fingernails and some confusion and her physician told her to come into the hospital for further evaluation. She states she has recently lost weight. No weight gain. She states she has some lower extremity edema which has been chronic. She denies any cough, no fever or chills. She does state that about one time per week she has a short period of palpitations. We have been asked to evaluate the patient for congestive heart failure. EKG atrial fibrillation 52 bpm Chest x-ray: Low lung volumes with generalized hazy appearance which could represent atelectasis versus pulmonary edema. WBC 8.1, hemoglobin 10.2, platelet count 185. Sodium 135. Potassium 3.5, BUN 53 creatinine 2.07. ProBNP 2320. Troponin negative 1. AST 90, ALT 39, alkaline phosphatase 129. UA positive for urinary tract infection. Influenza A, influenza B, RSV, Covid 19 not detected. Home cardiac medications: Amiodarone 200 mg twice daily, amlodipine 5 mg twice daily, eliquis 5 mg twice daily, Lipitor 40 mg at bedtime, Lasix 40 mg twice daily, losartan 25 mg daily, Zaroxolyn 5 mg daily, Lopressor 50 mg twice daily Echocardiogram 08/2022 revealed normal LV systolic function, moderate pulmonary hypertension, left atrial enlargement. 12/01 Patient is seen today in follow-up. Her blood pressure has been on the low side and Norvasc was held last night and this morning. She has been on IV Lasix 40 every 12 hours. Blood pressure 95/55, heart rate in the 60s. Patient states that her breathing is okay today. She has minimal lower extremity edema. She has a negative fluid balance of 228. Weight is noted to be down 2 kg. Repeat blood work reveals potassium 3.7, BUN 57 creatinine 1.93. 12/02 Breathing status seems to be stable. Patient is complaining of feeling tired. She continues to have lower extremity edema. Blood pressure 101/50, heart rate in the 60s. Potassium is 3.4, BUN 56 creatinine 1.38. Potassium has been replaced. Repeat chest x-ray reveals improved pulmonary vascular congestion and COPD. 12/03 Patient is seen today in follow-up. She is complaining of vomiting and diarrhea but otherwise breathing status is improving. She is currently on IV Lasix 40 mg twice daily. Repeat potassium 3.6, BUN 2061 and creatinine 1.08. Magnesium 1.6. Physical examination: Gen: This is a 67-year-old female, she is sitting and appears to be comfortable. No acute respiratory distress noted. VS: reviewed HEENT: Head is atraumatic, normocephalic. Pupils equal, round. Sclerae is anicte eusebio. NECK: Supple. No JVD. LUNGS: Diminished air entry at the right base. HEART: Regular rate and rhythm. Systolic murmur at the left lower sternal border ABDOMEN: Soft No tenderness. EXTREMITIES: Trace pedal edema. No calf tenderness. Assessment: Acute COPD exacerbation Chronic hypoxic respiratory failure on home O2 Acute exacerbation of chronic diastolic heart failure Possible pneumonia, on IV antibiotics Coronary artery disease status post coronary artery bypass graft Paroxysmal atrial fibrillation Hypertension Hyperlipidemia Recent C. difficile colitis Possible UTI Complains of vomiting and diarrhea Plan: Continue patient's home cardiac medications, discontinue Norvasc Continue patient on IV Lasix 40 mg twice daily for 1 more day and transition to oral tomorrow Monitor I&O, daily weights, I's O, electrolytes and renal function No need to repeat echocardiogram as this was done in August. Further recommendations to follow based upon clinical course Nurse practitioner note has been reviewed, I agree with documented findings and plan of care. Patient was seen and examined. Objective - Vital Signs Vital signs: Vital Signs Temp 97.7 F 12/03/22 08:24 Pulse 70 12/03/22 08:24 Resp 18 12/03/22 08:24 BP 111/63 12/03/22 08:24 Pulse Ox 90 L 12/03/22 08:24 FiO2 Intake & Output 12/02/22 12/03/22 12/03/22 18:59 06:59 18:59 Intake Total 236 10 Output Total 1200 700 Balance -964 -690 Weight 88.2 kg Intake: IV 10 Invasive Line 1 10 Oral 236 Output: Urine/Stool Mix 1200 700 Other: Voiding Method Bedside Commode Bedside Commode Bedpan # Bowel Movements 1 1 - Labs CBC & Chem 7: 11/30/22 08:39 12/03/22 09:00 Labs: Abnormal Lab Results - Last 24 Hours (Table) 12/02/22 12/02/22 12/02/22 Range/Units 11:38 16:14 20:12 POC Glucose (mg/dL) 133 H 122 H 119 H (70-110) mg/dL 12/03/22 12/03/22 Range/Units 02:01 06:14 POC Glucose (mg/dL) 120 H 114 H (70-110) mg/dL Microbiology - Last 24 Hours (Table) 11/30/22 04:30 Urine Culture - Final Urine,Voided Proteus mirabilis
--- NOTE | 2022-12-03 14:55 | P.PN ---
Subjective Progress Note Date: 12/03/22 (delayed charting seen at 1045) Patient is a well female with COPD on home O2 at 2-3 L, A. fib anticoagulated with Eliquis, diastolic CHF, coronary artery disease, hypertension, dyslipidem ia, insulin-dependent diabetes, and multiple other comorbid conditions who presented to the emergency department with weakness and diarrhea. Of note, She has had multiple admissions over the last 30 days: 11/10/22-11/12/22 treated for C diff, completed 10 day course of oral vancomycin, 11/17/22-11/22/22 treated for CHF In the emergency room she underwent an extensive evaluation. Chest x-ray showed possible pulmonary edema versus atelectasis, EKG showed rate controlled A. fib at 52 bpm with a right bundle branch block, vital signs were remarkable for SpO2 of 92% on 6 L nasal cannula and a blood pressure of 92/44. Laboratory analysis was remarkable for hemoglobin 10.7, potassium 3.3, BUN 50, creatinine 1.89 (up from baseline of 0.9), AST 90, ALT 39, alkaline phosphatase 129. A urine was co nsistent with urinary tract infection. Patient was started on IV Lasix and Rocephin. Arrangements are made for admission. Cardiology was consulted and she was maintained on IV Lasix. She diuresied well, her Cr was elevated and nephrology was consulted this improved with diuresis. Patient seen and examined at bedside. Patient is still concerned about her diarrhea. She is worried that her son will be unable to care for her at home. She is still frequently getting up to go to the bathroom and is exhausting her given her post polio syndrome and right-sided weakness. WE again discussed that she is not having liquid stools, or large amount of stools and I am not concerned that her C diff is back but that she needs to have time to reestablish her gut biome and regulate her BMs. Vital signs reviewed General: nontoxic, no distress, appears at stated age Cardiovascular: S1S2 reg, no murmur, positive posterior tibial pulse bilateral, Lungs: Decreased breath sounds bilateral, no rhonchi, no rales , no accessory muscle use Abdominal: soft, nontender to palpation, no guarding, no appreciable organomegaly Ext: no gross muscle atrophy, 1 + pitting edema b/l lower extremities, no cont ractures Neuro: CN II-XI grossly intact, no focal neuro deficits Psych: Alert, oriented, appropriate affect Assessment/Plan: Acute exacerbation of diastolic congestive heart failure, moderate pulmonary hypertension VALENTINA, due to cardio renal syndrome Paroxysmal atrial fibrillation, rate controlled CAD status post CABG 3 Hypertension Hyperlipidemia -Await further nephrology recommendations. -Cardiology note reviewed: Lasix 40 mg IV push twice daily -Continue with Lasix 40 mg IV twice daily, metolazone 5 mg daily -Strict I's and O's, daily weights -Metoprolol 50 mg daily, patient was taking Cozaar however this has been held for her increased creatinine will hold with low normal BP -Continue with Eliquis 5 mg twice daily, amiodarone 200 mg twice daily -Lipitor 40 mg daily - follow Cr, avoid additional nephrotoxic agents Loose stools - unable to test for C diff as formed - lactobacillus Chronic hypoxic respiratory failure secondary to advanced COPD, without exacerbation -Continue with Ventolin, Symbicort, Singulair -DuoNeb as needed Insulin-dependent diabetes mellitus. Episode of hypoglycemia -Continue to follow blood sugars, continue with sliding scale -Continue to hold Lantus 30 units every a.m. fasting blood sugar was 120. Transaminitis, chronic and stable upon review of previous labs. Proteus urinary tract infection, treated Imaging: Renal ultrasound-cortical thinning of the right kidney Chest [id number] in pulmonary vascular congestion Data Review: Vitals reviewed. Patient has been afebrile for the last 24 hours. Temperature 97.7, pulse 70, respirations 18, blood pressure 111/63, O2 sat 90% on 4 L Labs reviewed and remarkable for sodium 137, potassium 3.6,, acid 31, BUN 61, creatinine 1.08, glucose 123, magnesium 1.6 - D/W Dr. Lozano will monito overnight and D/C in AM to Home vs SNF depending on strength and ability to transfer DVT prophylaxis: Eliquis Anticipated discharge date: in AM Anticipated discharge place: This dictation was prepared using [employer] voice recognition software. Though every attempt is made to correct errors during dictation some may still exist. Objective - Vital Signs Vital signs: Vital Signs Temp 97.7 F 12/03/22 08:24 Pulse 82 12/03/22 12:08 Resp 18 12/03/22 12:08 BP 118/63 12/03/22 12:08 Pulse Ox 90 L 12/03/22 12:08 FiO2 Intake & Output 12/02/22 12/03/22 12/03/22 18:59 06:59 18:59 Intake Total 236 138 Output Total 1200 700 Balance -964 -562 Weight 88.2 kg Intake: IV 20 Invasive Line 1 20 Oral 236 118 Output: Urine/Stool Mix 1200 700 Other: Voiding Method Bedside Commode Bedside Commode Bedside Commode Bedpan Bedpan # Bowel Movements 1 1 - Labs CBC & Chem 7: 11/30/22 08:39 12/03/22 09:00 Labs: Abnormal Lab Results - Last 24 Hours (Table) 12/02/22 12/02/22 12/03/22 Range/Units 16:14 20:12 02:01 Carbon Dioxide (22-30) mmol/L BUN (7-17) mg/dL Creatinine (0.52-1.04) mg/dL Glucose (74-99) mg/dL POC Glucose (mg/dL) 122 H 119 H 120 H (70-110) mg/dL 12/03/22 12/03/22 12/03/22 Range/Units 06:14 09:00 11:15 Carbon Dioxide 31 H (22-30) mmol/L BUN 61 H (7-17) mg/dL Creatinine 1.08 H (0.52-1.04) mg/dL Glucose 153 H (74-99) mg/dL POC Glucose (mg/dL) 114 H 123 H (70-110) mg/dL
[2022-12-03] MEDS: MAGNESIUM SULFATE-D5W PMX 1 GM in DEXTROSE/WATER 1 100ML.BAG IVPB SCH ×2 (15:18→16:40)
[2022-12-03 16:29] LABS: Glucose,Whole Blood 137 mg/dL (70-110)
[2022-12-03 20:08] LABS: Glucose,Whole Blood 131 mg/dL (70-110)
[2022-12-03] MEDS: ATORVASTATIN 40 MG TAB PO SCH (21:59)
--- NOTE | 2022-12-04 00:53 | P.PN ---
Subjective Patient is seen for follow-up for acute kidney injury. Currently being diuresed for volume overload. Blood pressure has also been low. Angiotensin receptor blockers on hold. Renal function has improved with creatinine down to 1.0 from peak at 2.0. Objective - Vital Signs Vital signs: Vital Signs Temp 98.2 F 12/03/22 20:00 Pulse 67 12/03/22 20:00 Resp 18 12/03/22 20:00 BP 117/51 12/03/22 20:00 Pulse Ox 90 L 12/03/22 20:00 FiO2 Intake & Output 12/03/22 12/03/22 12/04/22 06:59 18:59 06:59 Intake Total 498 10 Output Total 1150 Balance -652 10 Weight 88.2 kg Intake: IV 20 10 Invasive Line 1 20 10 Oral 478 Output: Urine/Stool Mix 1150 Other: Voiding Method Bedside Commode Bedside Commode Bedside Commode Bedpan Bedpan Bedpan # Voids 1 # Bowel Movements 1 1 - Exam Patient is awake, comfortable, mildly short of breath. No acute distress Examination of the heart S1 and S2 Examination of the lungs bilateral breath sounds are heard Abdomen is soft distended nontender Examination lower extremity shows edema 1+ bilaterally [employer] exam grossly intact - Labs CBC & Chem 7: 11/30/22 08:39 12/03/22 09:00 Labs: Abnormal Lab Results - Last 24 Hours (Table) 12/03/22 12/03/22 12/03/22 Range/Units 02:01 06:14 09:00 Carbon Dioxide 31 H (22-30) mmol/L BUN 61 H (7-17) mg/dL Creatinine 1.08 H (0.52-1.04) mg/dL Glucose 153 H (74-99) mg/dL POC Glucose (mg/dL) 120 H 114 H (70-110) mg/dL 12/03/22 12/03/22 12/03/22 Range/Units 11:15 16:27 20:07 Carbon Dioxide (22-30) mmol/L BUN (7-17) mg/dL Creatinine (0.52-1.04) mg/dL Glucose (74-99) mg/dL POC Glucose (mg/dL) 123 H 137 H 131 H (70-110) mg/dL Assessment and Plan Assessment: 1. Acute kidney injury, nonoliguric ATN and cardiorenal syndrome. . UA shows 1+ protein large blood WBCs 94. No obstruction noted on ultrasound of the kidneys. 2. Volume overload currently being diuresed 3. Acute on chronic diastolic CHF. EF 60-65% on echocardiogram in August 2022. 4. Hypertension with blood pressure currently low. Currently off of angiotensin receptor blockers. I will DC the Revision3 as well. 5. Paroxysmal A. fib with controlled ventricular response 6. Coronary artery disease with history of coronary artery bypass surgery 7. UTI with urine culture growing gram-negative bacilli Plan: Continue with IV Lasix Continue with antibiotics Repeat labs in a.m. Accurate I's and O's
[2022-12-04 02:25] LABS: Glucose,Whole Blood 106 mg/dL (70-110)
[2022-12-04 06:02] LABS: Glucose,Whole Blood 125 mg/dL (70-110)
[2022-12-04] MEDS: INSULIN ASPART (NovoLOG) 100 UNIT/ML VIAL SQ SCH ×5 (07:26→20:53)
[2022-12-04] MEDS: FUROSEMIDE 10 MG/ML 4 ML VIAL IV SCH (07:27)
[2022-12-04] MEDS: SYMBICORT 160-4.5 MCG INHALER INHALATION SCH ×2 (07:56→20:24)
--- NOTE | 2022-12-04 08:38 | P.PN ---
Subjective Progress Note Date: 12/04/22 Principal diagnosis: Heart failure The patient is a 67-year-old female patient with CAD status post CABG and heart failure with a preserved ejection fraction as well as hypertension and dyslipidemia and paroxysmal atrial fibrillation and multiple comorbid conditions. She was admitted to the hospital with acute on chronic hypoxic respiratory failure secondary to heart failure and COPD exacerbation December [id number] The patient was seen and evaluated this morning. The patient seems to be feeling somewhat better until of shortness of breath she seems to be euvolemic on examination. With that being 0 point to stop the Lasix IV and start the patient on oral Lasix. Continue the rest of the current medical regimen The examination is remarkable for stable vital signs with diminished breathing sounds bilaterally and regular rate and rhythm Assessment Acute on chronic hypoxic respiratory failure Paroxysmal atrial fibrillation Heart failure exacerbation secondary to heart failure with preserved ejection fraction Multiple comorbid conditions [place] CAD Plan DC Lasix IV and start the patient on Lasix orally Follow-up with the patient Objective - Vital Signs Vital signs: Vital Signs Temp 98.0 F 12/04/22 04:00 Pulse 65 12/04/22 04:00 Resp 18 12/04/22 04:00 BP 170/65 12/04/22 04:00 Pulse Ox 94 L 12/04/22 07:57 FiO2 Intake & Output 12/03/22 12/04/22 12/04/22 18:59 06:59 18:59 Intake Total 498 20 Output Total 1150 Balance -652 20 Weight 86.5 kg Intake: IV 20 20 Invasive Line 1 20 20 Oral 478 Output: Urine/Stool Mix 1150 Other: Voiding Method Bedside Commode Bedside Commode Bedpan Bedpan # Voids 2 1 # Bowel Movements 1 2 1 - Labs CBC & Chem 7: 11/30/22 08:39 12/03/22 09:00 Labs: Abnormal Lab Results - Last 24 Hours (Table) 12/03/22 12/03/22 12/03/22 Range/Units 09:00 11:15 16:27 Carbon Dioxide 31 H (22-30) mmol/L BUN 61 H (7-17) mg/dL Creatinine 1.08 H (0.52-1.04) mg/dL Glucose 153 H (74-99) mg/dL POC Glucose (mg/dL) 123 H 137 H (70-110) mg/dL 12/03/22 12/04/22 Range/Units 20:07 06:01 Carbon Dioxide (22-30) mmol/L BUN (7-17) mg/dL Creatinine (0.52-1.04) mg/dL Glucose (74-99) mg/dL POC Glucose (mg/dL) 131 H 125 H (70-110) mg/dL
[2022-12-04] MEDS: LETROZOLE 2.5 MG TAB PO SCH (09:19)
[2022-12-04] MEDS: metOLazone 5 MG TAB PO SCH (09:19)
[2022-12-04] MEDS: APIXABAN 5 MG TAB PO SCH (09:19)
[2022-12-04] MEDS: LACTOBACILLUS ACIDOPHILUS/PECT 1 EACH CAPSULE PO SCH ×2 (09:19→20:53)
[2022-12-04] MEDS: FERROUS SULFATE 325 MG TAB PO SCH (09:20)
[2022-12-04] MEDS: AMIODARONE 200 MG TAB PO SCH ×2 (09:20→20:53)
[2022-12-04] MEDS: DULoxetine HCL 60 MG CAPSULE.DR PO SCH (09:20)
[2022-12-04] MEDS: METOPROLOL TARTRATE 50 MG TAB PO SCH ×2 (09:20→20:53)
[2022-12-04] MEDS: ASCORBIC ACID 500 MG TAB PO SCH (09:20)
[2022-12-04] MEDS: MONTELUKAST 10 MG TAB PO SCH (09:20)
[2022-12-04] MEDS: GABAPENTIN 300 MG CAP PO SCH ×3 (09:20→20:53)
[2022-12-04] MEDS: CHOLECALCIFEROL 125 MCG (5000 IU) TABLET PO SCH (09:20)
[2022-12-04] MEDS: NON FORMULARY DRUG (Ubidecarenone [Coenzyme Q10] 200 MG Capsule) PO SCH (10:02)
[2022-12-04] MEDS: HYDROcodone/APAP 10-325MG 1 EACH TAB PO PRN ×2 (12:05→19:38)
--- NOTE | 2022-12-04 12:12 | P.PN ---
Subjective Patient seen in follow-up for acute kidney injury. Renal function improved. Admits to good urine output. Complains of diarrhea. Denies chest pain or shortness of breath. Vital signs are stable. General: No acute distress. HEENT: Head exam is unremarkable. LUNGS: No audible rhonchi or wheezes. HEART: Rate and Rhythm are regular. ABDOMEN: Nontender. EXTREMITITES: 1+ edema. Objective - Vital Signs Vital signs: Vital Signs Temp 97.9 F 12/04/22 09:18 Pulse 68 12/04/22 12:07 Resp 18 12/04/22 12:07 BP 93/50 12/04/22 12:07 Pulse Ox 91 L 12/04/22 12:07 FiO2 Intake & Output 12/03/22 12/04/22 12/04/22 18:59 06:59 18:59 Intake Total 498 20 10 Output Total 1150 Balance -652 20 10 Weight 86.5 kg Intake: IV 20 20 10 Invasive Line 1 20 20 10 Oral 478 Output: Urine/Stool Mix 1150 Other: Voiding Method Bedside Commode Bedside Commode Bedside Commode Bedpan Bedpan Bedpan # Voids 2 1 # Bowel Movements 1 2 3 - Labs CBC & Chem 7: 11/30/22 08:39 12/03/22 09:00 Labs: Abnormal Lab Results - Last 24 Hours (Table) 12/03/22 12/03/22 12/04/22 Range/Units 16:27 20:07 06:01 POC Glucose (mg/dL) 137 H 131 H 125 H (70-110) mg/dL Assessment and Plan Plan: Assessment: 1. Acute kidney injury secondary to ATN secondary to cardiorenal syndrome. No hydronephrosis noted on kidney ultrasound. Renal function improved. 2. Volume overload. Improved with diuresis. 3. Acute on chronic diastolic CHF. 4. Proteus UTI s/p antibiotics. 5. Coronary disease status post CABG. 6. Benign hypertension. Blood pressure on the lower side this morning. 7. Hypomagnesemia from diuresis. Replaced. Plan: Maintain Lasix. Now on oral. Stop metolazone. Low-salt diet and 1500 mL fluid restriction. Continue to monitor renal function and urine output.
[2022-12-04 12:15] LABS: Glucose,Whole Blood 149 mg/dL (70-110)
--- NOTE | 2022-12-04 14:06 | P.PN ---
Subjective Progress Note Date: 12/04/22 (delayed charting seen at 1030) Patient is a well female with COPD on home O2 at 2-3 L, A. fib anticoagulated with Eliquis, diastolic CHF, coronary artery disease, hypertension, dyslipidem ia, insulin-dependent diabetes, and multiple other comorbid conditions who presented to the emergency department with weakness and diarrhea. Of note, She has had multiple admissions over the last 30 days: 11/10/22-11/12/22 treated for C diff, completed 10 day course of oral vancomycin, 11/17/22-11/22/22 treated for CHF In the emergency room she underwent an extensive evaluation. Chest x-ray showed possible pulmonary edema versus atelectasis, EKG showed rate controlled A. fib at 52 bpm with a right bundle branch block, vital signs were remarkable for SpO2 of 92% on 6 L nasal cannula and a blood pressure of 92/44. Laboratory analysis was remarkable for hemoglobin 10.7, potassium 3.3, BUN 50, creatinine 1.89 (up from baseline of 0.9), AST 90, ALT 39, alkaline phosphatase 129. A urine was co nsistent with urinary tract infection. Patient was started on IV Lasix and Rocephin. Arrangements are made for admission. Cardiology was consulted and she was maintained on IV Lasix. She diuresied well, her Cr was elevated and nephrology was consulted this improved with diuresis. Hospital course Imaging: Renal ultrasound-cortical thinning of the right kidney Chest [id number] in pulmonary vascular congestion Patient seen and examined at bedside. Patient continues to be concerned about frequency of bowel movements. Wants to stay till Tuesday and then go to [facility]. Breathing is near baseline. Vital signs reviewed General: nontoxic, no distress, appears at stated age Cardiovascular: S1S2 reg, no murmur, positive posterior tibial pulse bilateral, Lungs: course bs b/l, no rhonchi, no rales , no accessory muscle use Abdominal: soft, nontender to palpation, no guarding, no appreciable organomegaly Ext: no gross muscle atrophy, 1 + pitting edema b/l lower extremities, no contractures Neuro: CN II-XI grossly intact, no focal neuro deficits Psych: Alert, oriented, appropriate affect Assessment/Plan: Acute exacerbation of diastolic congestive heart failure, moderate pulmonary hypertension VALENTINA, due to ATN from cardio renal syndrome Paroxysmal atrial fibrillation, rate controlled CAD status post CABG 3 Hypertension Hyperlipidemia -Nephrology note reviewed: Stop metolazone, low-salt diet with 1500 mL fluid restriction -Cardiology note reviewed: Transition patient oral Lasix -Continue with Lasix 40 mg PO BID -Strict I's and O's, daily weights -Metoprolol 50 mg daily, patient was taking Cozaar however this has been held for her increased creatinine will hold with low normal BP -Continue with Eliquis 5 mg twice daily, amiodarone 200 mg twice daily -Lipitor 40 mg daily - follow Cr, avoid additional nephrotoxic agents Frequent stools with recent C diff - per nursing stool is still formed - lactobacillus - Case discussed with Dr. Lozano. He is very concerned about her continued bowel movements and the possibility of a fecal impaction. Will order x-ray Chronic hypoxic respiratory failure secondary to advanced COPD, without exacerbation -Continue with Ventolin, Symbicort, Singulair -DuoNeb as needed Insulin-dependent diabetes mellitus. Episode of hypoglycemia -Continue to follow blood sugars, continue with sliding scale -Continue to hold Lantus 30 units every a.m. fasting blood sugar was 125. Transaminitis, chronic and stable upon review of previous labs. Proteus urinary tract infection, treated -Case discussed with case management multiple times. Apparently there is no when at [facility] to review the approval authorization and therefore patient was unable to be expected at this time. -At 1350 still awaiting a.m. labs to be drawn, further recommendations to follow. Imaging: none new Data Review: Vitals reviewed: Temperature 97.9, pulse 65, respirations 18, blood pressure 100/54, O2 sat has been ranging between 90-94% on 5 L nasal cannula DVT prophylaxis: Eliquis Anticipated discharge date: 12/[address]: [facility] This dictation was prepared using [employer] voice recognition software. Though every attempt is made to correct errors during dictation some may still exist. Objective - Vital Signs Vital signs: Vital Signs Temp 97.9 F 12/04/22 09:18 Pulse 68 12/04/22 12:07 Resp 18 12/04/22 12:07 BP 93/50 12/04/22 12:07 Pulse Ox 91 L 12/04/22 12:07 FiO2 Intake & Output 12/03/22 12/04/22 12/04/22 18:59 06:59 18:59 Intake Total 498 20 10 Output Total 1150 Balance -652 20 10 Weight 86.5 kg Intake: IV 20 20 10 Invasive Line 1 20 20 10 Oral 478 Output: Urine/Stool Mix 1150 Other: Voiding Method Bedside Commode Bedside Commode Bedside Commode Bedpan Bedpan Bedpan # Voids 2 1 # Bowel Movements 1 2 3 - Labs CBC & Chem 7: 11/30/22 08:39 12/03/22 09:00 Labs: Abnormal Lab Results - Last 24 Hours (Table) 12/03/22 12/03/22 12/04/22 Range/Units 16:27 20:07 06:01 POC Glucose (mg/dL) 137 H 131 H 125 H (70-110) mg/dL 12/04/22 Range/Units 12:13 POC Glucose (mg/dL) 149 H (70-110) mg/dL
--- NOTE | 2022-12-04 14:28 | XR ---
EXAMINATION TYPE: XR abdomen acute w cxr DATE OF EXAM: 12/04/2022 2:20 PM INDICATION: Patient age:Female; 67 years old; Reason for study: diarrhea; PHH. COMPARISON: Chest radiograph 12/02/2022 TECHNIQUE: Two radiographic views of the abdomen and an a chest radiograph were obtained. FINDINGS CHEST: Lungs/Pleura: The lungs are clear. There is no evidence of pleural effusion, focal consolidation or p neumothorax. Mediastinum: Unremarkable. Vasculature: Mild pulmonary vascular congestion.. Heart: Enlarged in size. Post CABG changes. Musculoskeletal: The osseous structures are intact. The surrounding wires. Other findings: Surgical clips within the right breast. FINDINGS ABDOMEN: Bowel gas pattern: Normal without dilated loops of small or large bowel. Fecal material and gas are d emonstrated throughout the colon and rectum. Abnormal calcifications: None. Musculoskeletal: No acute osseous abnormality. Thoracolumbar fusion hardware demonstrated.. Other: Left-sided neurostimulator device identified.. IMPRESSION: 1. No radiographic evidence for acute abdominal process. 2. Cardiomegaly with mild pulmonary vascular congestion.
[2022-12-04 15:05] LABS: Anisocytosis Moderate; HCT 23.2 % (34.0-46.0); Hypochromasia Moderate; MCH 28.5 pg (25.0-35.0); MCHC 31.2 g/dL (31.0-37.0); MCV 91.5 fL (80.0-100.0); Mean Platelet Volume 9.6; Platelet Count 191 k/uL (150-450); RBC 2.54 m/uL (3.80-5.40); RDW 20.3 % (11.5-15.5); WBC 8.3 k/uL (3.8-10.6)
[2022-12-04 15:09] LABS: HGB 7.2 gm/dL (11.4-16.0)
[2022-12-04 15:22] LABS: African American GFR (CKD) 74 (>60 ml/min/1.73 sqM); Anion Gap 6 mmol/L; Blood Urea Nitrogen 61 mg/dL (7-17); Calcium 9.3 mg/dL (8.4-10.2); Carbon Dioxide 33 mmol/L (22-30); Chloride 97 mmol/L (98-107); Glucose 115 mg/dL (74-99); Non-African American GFR(CKD) 64 (>60 ml/min/1.73 sqM); Potassium 3.4 mmol/L (3.5-5.1); Sodium 136 mmol/L (137-145)
[2022-12-04] MEDS: ACETAMINOPHEN TAB 325 MG TAB PO PRN (15:42)
[2022-12-04] MEDS: FUROSEMIDE 40 MG TAB PO SCH (15:42)
[2022-12-04 17:08] LABS: Glucose,Whole Blood 118 mg/dL (70-110)
[2022-12-04] MEDS ORDERED: POTASSIUM CHLORIDE ER 20 MEQ TAB.ER PO STA (17:58)
[2022-12-04] MEDS ORDERED: PANTOPRAZOLE 40 MG/10 ML VIAL IVP ONE (17:59)
--- NOTE | 2022-12-04 19:23 | CT ---
EXAMINATION TYPE: CT abdomen pelvis wo con CT DLP: 915.6 mGycm, Automated exposure control for dose reduction was used. DATE OF EXAM: 12/04/2022 7:11 PM COMPARISON: CT abdomen pelvis most recent from 06/08/2021 CLINICAL INDICATION:Female, 67 years old with history of melena, recent c diff; Recent C-diff. TECHNIQUE: Axial CT of the abdomen and pelvis. Sagittal and coronal reformats were created on a [employer] workstation. Contrast used: mL of , (none if empty) Oral contrast used: without Oral Contrast (none if empty) FINDINGS: LOWER CHEST: Small right and trace left pleural effusion. ABDOMEN LIVER: Unremarkable GALLBLADDER AND BILE DUCTS: Unremarkable. PANCREAS: Unremarkable. SPLEEN: Enlarged measuring up to 14.8 cm. ADRENAL GLANDS: Unremarkable. KIDNEYS AND URETERS: No evidence of hydronephrosis. No obstructing renal calculi measuring up to 4 mm .. The ureters are unremarkable. PELVIS BLADDER: Unremarkable REPRODUCTIVE: Unremarkable. ABDOMEN & PELVIS STOMACH AND BOWEL: No evidence of bowel obstruction. Scattered colonic diverticula. No evidence of herlinda wel wall thickening. Appendix is normal. PERITONEUM/RETROPERITONEUM: No evidence of pneumoperitoneum or free fluid. VASCULATURE: No evidence of aortic aneurysm. MUSCULOSKELETAL: No acute osseous abnormalities, postsurgical changes spine evidence of hardware fail ure. Stimulator pack leads terminating in the thecal sac. LYMPH NODES: No gross evidence for lymphadenopathy. SOFT TISSUE/ABDOMINAL WALL: Unremarkable IMPRESSION: 1. No evidence for acute abdominal process. The colon is nondistended without evidence for wall thic kening. No evidence for obstruction. 2. Colonic diverticulosis. 3. Nonobstructing right renal calculi. 4. Small right and trace left pleural effusion.
[2022-12-04 20:15] LABS: Glucose,Whole Blood 122 mg/dL (70-110)
[2022-12-04] MEDS: PANTOPRAZOLE 40 MG TABLET PO SCH (20:53)
[2022-12-04] MEDS: ATORVASTATIN 40 MG TAB PO SCH (20:53)
[2022-12-04] MEDS ORDERED: PANTOPRAZOLE 40 MG/10 ML VIAL IVP SCH (21:00)
[2022-12-04 22:07] LABS: Anisocytosis Moderate; HGB 7.2 gm/dL (11.4-16.0); Hypochromasia Marked; MCH 29.2 pg (25.0-35.0); MCHC 31.5 g/dL (31.0-37.0); MCV 92.7 fL (80.0-100.0); Macrocytosis Slight; Mean Platelet Volume 9.4; Platelet Count 209 k/uL (150-450); RBC 2.48 m/uL (3.80-5.40); RDW 20.9 % (11.5-15.5); WBC 9.8 k/uL (3.8-10.6)
[2022-12-05] MEDS: ONDANSETRON ODT 4 MG TAB PO PRN (00:35)
[2022-12-05] MEDS: HYDROcodone/APAP 10-325MG 1 EACH TAB PO PRN ×4 (00:36→23:14)
[2022-12-05 01:01] LABS: Anisocytosis Moderate; HCT 22.3 % (34.0-46.0); Hypochromasia Moderate; MCH 28.8 pg (25.0-35.0); MCHC 31.2 g/dL (31.0-37.0); MCV 92.6 fL (80.0-100.0); Macrocytosis Slight; Mean Platelet Volume 9.5; Platelet Count 195 k/uL (150-450); RBC 2.41 m/uL (3.80-5.40); WBC 8.2 k/uL (3.8-10.6)
[2022-12-05 01:15] LABS: HGB 6.9 gm/dL (11.4-16.0)
[2022-12-05 02:13] LABS: Glucose,Whole Blood 120 mg/dL (70-110)
[2022-12-05] MEDS: INSULIN ASPART (NovoLOG) 100 UNIT/ML VIAL SQ SCH ×4 (06:23→20:36)
[2022-12-05 06:25] LABS: Glucose,Whole Blood 119 mg/dL (70-110)
[2022-12-05] MEDS: GABAPENTIN 300 MG CAP PO SCH ×3 (08:21→20:44)
[2022-12-05] MEDS: AMIODARONE 200 MG TAB PO SCH ×2 (08:21→20:44)
[2022-12-05] MEDS: DULoxetine HCL 60 MG CAPSULE.DR PO SCH (08:21)
[2022-12-05] MEDS: CHOLECALCIFEROL 125 MCG (5000 IU) TABLET PO SCH (08:21)
[2022-12-05] MEDS: PANTOPRAZOLE 40 MG TABLET PO SCH ×2 (08:21→20:45)
[2022-12-05] MEDS: FUROSEMIDE 40 MG TAB PO SCH ×2 (08:21→17:00)
[2022-12-05] MEDS: LACTOBACILLUS ACIDOPHILUS/PECT 1 EACH CAPSULE PO SCH ×2 (08:21→20:44)
[2022-12-05] MEDS: ASCORBIC ACID 500 MG TAB PO SCH (08:21)
[2022-12-05] MEDS: LETROZOLE 2.5 MG TAB PO SCH (08:21)
[2022-12-05] MEDS: POTASSIUM CHLORIDE ER 20 MEQ TAB.ER PO SCH (08:21)
[2022-12-05] MEDS: METOPROLOL TARTRATE 50 MG TAB PO SCH ×2 (08:22→20:45)
[2022-12-05] MEDS: NON FORMULARY DRUG (Ubidecarenone [Coenzyme Q10] 200 MG Capsule) PO SCH (08:39)
[2022-12-05] MEDS: SYMBICORT 160-4.5 MCG INHALER INHALATION SCH ×2 (08:43→20:37)
[2022-12-05] MEDS ORDERED: SIMETHICONE 80 MG CHEWABLE PO PRN (09:42)
--- NOTE | 2022-12-05 11:04 | P.PN ---
Subjective Patient seen in follow-up for acute kidney injury. Renal function improved. Admits to good urine output. Complains of diarrhea. No active bleeding. Hemoglobin 6.9 today. Denies chest pain or shortness of breath. Vital signs are stable. General: No acute distress. HEENT: Head exam is unremarkable. LUNGS: No audible rhonchi or wheezes. HEART: Rate and Rhythm are regular. ABDOMEN: Nontender. EXTREMITITES: Trace edema. Objective - Vital Signs Vital signs: Vital Signs Temp 97.3 F L 12/05/22 08:20 Pulse 63 12/05/22 08:20 Resp 18 12/05/22 08:20 BP 102/44 12/05/22 08:20 Pulse Ox 93 L 12/05/22 08:20 FiO2 Intake & Output 12/04/22 12/05/22 12/05/22 18:59 06:59 18:59 Intake Total 20 310 240 Balance 20 310 240 Weight 87 kg Intake: IV 20 Invasive Line 1 20 Oral 240 Blood Product 310 Rc As-1 Unit 310 [id number] Other: Voiding Method Bedside Commode Bedside Commode Bedpan Bedpan # Voids 1 1 1 # Bowel Movements 3 1 2 - Labs CBC & Chem 7: 12/05/22 00:10 12/04/22 13:54 Labs: Abnormal Lab Results - Last 24 Hours (Table) 12/04/22 12/04/22 12/04/22 Range/Units 12:13 13:54 13:54 RBC 2.54 L (3.80-5.40) m/uL Hgb 7.2 L D (11.4-16.0) gm/dL Hct 23.2 L (34.0-46.0) % RDW 20.3 H (11.5-15.5) % Sodium 136 L (137-145) mmol/L Potassium 3.4 L (3.5-5.1) mmol/L Chloride 97 L (98-107) mmol/L Carbon Dioxide 33 H (22-30) mmol/L BUN 61 H (7-17) mg/dL Glucose 115 H (74-99) mg/dL POC Glucose (mg/dL) 149 H (70-110) mg/dL Crossmatch 12/04/22 12/04/22 12/04/22 Range/Units 17:07 20:13 21:44 RBC 2.48 L (3.80-5.40) m/uL Hgb 7.2 L (11.4-16.0) gm/dL Hct 23.0 L (34.0-46.0) % RDW 20.9 H (11.5-15.5) % Sodium (137-145) mmol/L Potassium (3.5-5.1) mmol/L Chloride (98-107) mmol/L Carbon Dioxide (22-30) mmol/L BUN (7-17) mg/dL Glucose (74-99) mg/dL POC Glucose (mg/dL) 118 H 122 H (70-110) mg/dL Crossmatch 12/05/22 12/05/22 12/05/22 Range/Units 00:10 01:54 02:12 RBC 2.41 L (3.80-5.40) m/uL Hgb 6.9 L* (11.4-16.0) gm/dL Hct 22.3 L (34.0-46.0) % RDW 21.0 H (11.5-15.5) % Sodium (137-145) mmol/L Potassium (3.5-5.1) mmol/L Chloride (98-107) mmol/L Carbon Dioxide (22-30) mmol/L BUN (7-17) mg/dL Glucose (74-99) mg/dL POC Glucose (mg/dL) 120 H (70-110) mg/dL Crossmatch See Detail 12/05/22 Range/Units 06:23 RBC (3.80-5.40) m/uL Hgb (11.4-16.0) gm/dL Hct (34.0-46.0) % RDW (11.5-15.5) % Sodium (137-145) mmol/L Potassium (3.5-5.1) mmol/L Chloride (98-107) mmol/L Carbon Dioxide (22-30) mmol/L BUN (7-17) mg/dL Glucose (74-99) mg/dL POC Glucose (mg/dL) 119 H (70-110) mg/dL Crossmatch Assessment and Plan Plan: Assessment: 1. Acute kidney injury secondary to ATN secondary to cardiorenal syndrome. No hydronephrosis noted on kidney ultrasound. Renal function improved. 2. Volume overload. Improved with diuresis. 3. Acute on chronic diastolic CHF. 4. Proteus UTI s/p antibiotics. 5. Coronary disease status post CABG. 6. Benign hypertension. 7. Hypomagnesemia from diuresis. Replaced. Improved. 8. Acute blood loss anemia scheduled to receive a unit of blood today. Surgery following. Possible endoscopy this admission. 9. Hypokalemia from diuresis. Replaced. Plan: Maintain Lasix. Low-salt diet and 1500 mL fluid restriction. Continue to monitor renal function and urine output.
--- NOTE | 2022-12-05 11:17 | P.PN ---
Subjective Progress Note Date: 12/05/22 Principal diagnosis: Heart failure The patient is a 67-year-old female patient with CAD status post CABG and heart failure with a preserved ejection fraction as well as hypertension and dyslipidemia and paroxysmal atrial fibrillation and multiple comorbid conditions. She was admitted to the hospital with acute on chronic hypoxic respiratory failure secondary to heart failure and COPD exacerbation December 042022 The patient was seen and evaluated this morning. The patient seems to be feeling somewhat better until of shortness of breath she seems to be euvolemic on examination. With that being 0 point to stop the Lasix IV and start the patient on oral Lasix. Continue the rest of the current medical regimen. The examination is remarkable for stable vital signs with diminished breathing sounds bilaterally and regular rate and rhythm 12/05/2022 The patient was seen and evaluated this morning. She is feeling better in terms of shortness of breath. She seems to be euvolemic on examination as well. Her hemoglobin this morning is 6.9. Oral anticoagulation are on hold at this point. On examination she has regular rhythm with diminished breathing sounds bila terally and mild bilateral lower extremity is edema. Assessment Acute on chronic hypoxic respiratory failure Paroxysmal atrial fibrillation Heart failure exacerbation secondary to heart failure with preserved ejection fraction Multiple comorbid conditions Anemia likely related to be blood loss Plan Continue current medical regimen Continue the current dose of oral diuretics I would suggest blood transfusion in the light of hemoglobin below 7 Continue holding oral anticoagulation Objective - Vital Signs Vital signs: Vital Signs Temp 97.3 F L 12/05/22 08:20 Pulse 63 12/05/22 08:20 Resp 18 12/05/22 08:20 BP 102/44 12/05/22 08:20 Pulse Ox 93 L 12/05/22 08:20 FiO2 Intake & Output 12/04/22 12/05/22 12/05/22 18:59 06:59 18:59 Intake Total 20 310 240 Balance 20 310 240 Weight 87 kg Intake: IV 20 Invasive Line 1 20 Oral 240 Blood Product 310 Rc As-1 Unit 310 [id number] Other: Voiding Method Bedside Commode Bedside Commode Bedpan Bedpan # Voids 1 1 1 # Bowel Movements 3 1 2 - Labs CBC & Chem 7: 12/05/22 00:10 12/04/22 13:54 Labs: Abnormal Lab Results - Last 24 Hours (Table) 12/04/22 12/04/22 12/04/22 Range/Units 12:13 13:54 13:54 RBC 2.54 L (3.80-5.40) m/uL Hgb 7.2 L D (11.4-16.0) gm/dL Hct 23.2 L (34.0-46.0) % RDW 20.3 H (11.5-15.5) % Sodium 136 L (137-145) mmol/L Potassium 3.4 L (3.5-5.1) mmol/L Chloride 97 L (98-107) mmol/L Carbon Dioxide 33 H (22-30) mmol/L BUN 61 H (7-17) mg/dL Glucose 115 H (74-99) mg/dL POC Glucose (mg/dL) 149 H (70-110) mg/dL Crossmatch 12/04/22 12/04/22 12/04/22 Range/Units 17:07 20:13 21:44 RBC 2.48 L (3.80-5.40) m/uL Hgb 7.2 L (11.4-16.0) gm/dL Hct 23.0 L (34.0-46.0) % RDW 20.9 H (11.5-15.5) % Sodium (137-145) mmol/L Potassium (3.5-5.1) mmol/L Chloride (98-107) mmol/L Carbon Dioxide (22-30) mmol/L BUN (7-17) mg/dL Glucose (74-99) mg/dL POC Glucose (mg/dL) 118 H 122 H (70-110) mg/dL Crossmatch 12/05/22 12/05/22 12/05/22 Range/Units 00:10 01:54 02:12 RBC 2.41 L (3.80-5.40) m/uL Hgb 6.9 L* (11.4-16.0) gm/dL Hct 22.3 L (34.0-46.0) % RDW 21.0 H (11.5-15.5) % Sodium (137-145) mmol/L Potassium (3.5-5.1) mmol/L Chloride (98-107) mmol/L Carbon Dioxide (22-30) mmol/L BUN (7-17) mg/dL Glucose (74-99) mg/dL POC Glucose (mg/dL) 120 H (70-110) mg/dL Crossmatch See Detail 12/05/22 Range/Units 06:23 RBC (3.80-5.40) m/uL Hgb (11.4-16.0) gm/dL Hct (34.0-46.0) % RDW (11.5-15.5) % Sodium (137-145) mmol/L Potassium (3.5-5.1) mmol/L Chloride (98-107) mmol/L Carbon Dioxide (22-30) mmol/L BUN (7-17) mg/dL Glucose (74-99) mg/dL POC Glucose (mg/dL) 119 H (70-110) mg/dL Crossmatch
[2022-12-05 11:36] LABS: Glucose,Whole Blood 127 mg/dL (70-110)
[2022-12-05 11:44] LABS: Anisocytosis Moderate; HCT 25.8 % (34.0-46.0); Hypochromasia Moderate; MCH 30.5 pg (25.0-35.0); MCV 92.4 fL (80.0-100.0); Macrocytosis Slight; Mean Platelet Volume 10.7; Platelet Count 186 k/uL (150-450); RBC 2.79 m/uL (3.80-5.40); RDW 20.1 % (11.5-15.5); WBC 9.9 k/uL (3.8-10.6)
[2022-12-05 11:47] LABS: HGB 8.5 gm/dL (11.4-16.0)
[2022-12-05] MEDS: FERROUS SULFATE 325 MG TAB PO SCH (12:15)
[2022-12-05] MEDS: MONTELUKAST 10 MG TAB PO SCH (12:15)
--- NOTE | 2022-12-05 14:17 | P.GSCN ---
History of Present Illness Consult date: 12/05/22 Reason for Consult: Anemia History of present illness: This a 67-year-old female who was admitted through the emergency room with complaints of severe anemia. Her hemoglobin of 6.9. Patient has had some minimal epigastric discomfort. I been asked see her regarding possible EGD. Past Medical History Past Medical History: Atrial Fibrillation, Coronary Artery Disease (CAD), Cancer, COPD, Diabetes Mellitus, GERD/Reflux, Hyperlipidemia Additional Past Medical History / Comment(s): post polio syndrome rt side, neuropathy, hx. spontaneous pneumothorax, bowel resection for se psis/infection,cut on toe History of Any Multi-Drug Resistant Organisms: ESBL Year Discovered:: 06/29/21 MDRO Source:: ESBL BACK Past Surgical History: Back Surgery, Bowel Resection, Breast Surgery, C holecystectomy, Coronary Bypass/CABG, Ear Surgery, Tonsillectomy Additional Past Surgical History / Comment(s): triple bypass 2013, left salpingo-oophorectomy, laminectomy L4 L5x3, ear surgery x 3 Past Anesthesia/Blood Transfusion Reactions: No Reported Reaction Past Psychological History: Anxiety, Depression Smoking Status: Former smoker Past Alcohol Use History: Occasional Past Drug Use History: None Reported - Past Family History Mother Family Medical History: Cancer Medications and Allergies Home Medications Medication Instructions Recorded Confirmed Type Atorvastatin [Lipitor] 40 mg PO HS 03/23/16 11/29/22 History DULoxetine HCL [Cymbalta] 60 mg PO DAILY 03/23/16 11/29/22 History Metoprolol Tartrate [Lopressor] 50 mg PO BID 03/23/16 11/29/22 History Omeprazole [PriLOSEC] 20 mg PO DAILY 03/23/16 11/29/22 History Montelukast [Singulair] 10 mg PO DAILY 05/18/21 11/29/22 History Gabapentin 600 mg PO TID 06/29/21 11/29/22 History Budesonide-Formot 160-4.5 Mcg 2 puff INHALATION RT-BID 04/06/22 11/29/22 History [Symbicort 160-4.5 Mcg Inhaler] Biotin [Biotin Disolve] 10,000 mcg PO DAILY 09/03/22 11/29/22 History Letrozole [Femara] 2.5 mg PO DAILY 09/03/22 11/29/22 History Apixaban [Eliquis] 5 mg PO BID 09/06/22 11/29/22 History Cholecalciferol [Vitamin D3 (125 125 mcg PO DAILY 09/06/22 11/29/22 History Mcg = 5000 Iu)] Cyanocobalamin (Vitamin B-12) 2,000 mcg PO DAILY 09/06/22 11/29/22 History [Vitamin B-12] HYDROcodone/APAP 10-325MG [[place] 1 tab PO Q6H 09/06/22 11/29/22 History 10-325] Ascorbic Acid [Vitamin C] 250 mg PO DAILY #60 tab 09/09/22 11/29/22 Rx Ferrous Sulfate [Iron (65 MG 325 mg PO W/LUNCH #60 tab 09/09/22 11/29/22 Rx Elemental)] Albuterol Inhaler [Ventolin Hfa 2 puff INHALATION RT-QID PRN 11/10/22 11/29/22 History Inhaler] Amiodarone [Cordarone] 200 mg PO BID 11/10/22 11/29/22 History amLODIPine [Norvasc] 5 mg PO BID 11/10/22 11/29/22 History Ondansetron Odt [Zofran ODT] 4 mg PO Q8HR PRN #30 tab 11/11/22 11/29/22 Rx Furosemide [Lasix] 40 mg PO BID@0900,1600 #60 tab 11/22/22 11/29/22 Rx Losartan [Cozaar] 25 mg PO DAILY #30 tab 11/22/22 11/29/22 Rx metOLazone [Zaroxolyn] 5 mg PO DAILY #30 tab 11/22/22 11/29/22 Rx Insulin Glargine,Hum.rec.anlog 30 units SQ HS 11/29/22 11/29/22 History [Lantus Solostar Pen] Lactobacillus Acidophilus 1 cap PO DAILY 11/29/22 11/29/22 History [Acidophilus Probiotic] Ubidecarenone [Coenzyme Q10] 200 mg PO DAILY 11/29/22 11/29/22 History Allergies Allergy/AdvReac Type Severity Reaction Status Date / Time morphine Allergy rash,itchin Verified 11/29/22 17:54 g Sulfa (Sulfonamide Allergy Rash/Hives Verified 11/29/22 17:54 Antibiotics) amoxicillin [From Augmentin] AdvReac Diarrhea Verified 11/29/22 17:54 clavulanic acid AdvReac Diarrhea Verified 11/29/22 17:54 [From Augmentin] surgical susy AdvReac infection Uncoded 11/29/22 17:54 Surgical - Exam Vital Signs Temp Pulse Resp BP Pulse Ox 97.0 F L 57 L 20 92/44 92 L 11/29/22 15:09 11/29/22 15:09 11/29/22 15:09 11/29/22 15:09 11/29/22 15:09 - General well developed, well nourished, no distress - Eyes PERRL - ENT normal pinna - Neck no masses - Respiratory normal expansion - Cardiovascular Rhythm: regular - Abdomen Abdomen: soft, non tender Results - Labs 12/05/22 10:52 12/04/22 13:54 Abnormal Lab Results - Last 24 Hours (Table) 12/04/22 12/04/22 12/04/22 Range/Units 13:54 13:54 17:07 RBC 2.54 L (3.80-5.40) m/uL Hgb 7.2 L D (11.4-16.0) gm/dL Hct 23.2 L (34.0-46.0) % RDW 20.3 H (11.5-15.5) % Sodium 136 L (137-145) mmol/L Potassium 3.4 L (3.5-5.1) mmol/L Chloride 97 L (98-107) mmol/L Carbon Dioxide 33 H (22-30) mmol/L BUN 61 H (7-17) mg/dL Glucose 115 H (74-99) mg/dL POC Glucose (mg/dL) 118 H (70-110) mg/dL Crossmatch 12/04/22 12/04/22 12/05/22 Range/Units 20:13 21:44 00:10 RBC 2.48 L 2.41 L (3.80-5.40) m/uL Hgb 7.2 L 6.9 L* (11.4-16.0) gm/dL Hct 23.0 L 22.3 L (34.0-46.0) % RDW 20.9 H 21.0 H (11.5-15.5) % Sodium (137-145) mmol/L Potassium (3.5-5.1) mmol/L Chloride (98-107) mmol/L Carbon Dioxide (22-30) mmol/L BUN (7-17) mg/dL Glucose (74-99) mg/dL POC Glucose (mg/dL) 122 H (70-110) mg/dL Crossmatch 12/05/22 12/05/22 12/05/22 Range/Units 01:54 02:12 06:23 RBC (3.80-5.40) m/uL Hgb (11.4-16.0) gm/dL Hct (34.0-46.0) % RDW (11.5-15.5) % Sodium (137-145) mmol/L Potassium (3.5-5.1) mmol/L Chloride (98-107) mmol/L Carbon Dioxide (22-30) mmol/L BUN (7-17) mg/dL Glucose (74-99) mg/dL POC Glucose (mg/dL) 120 H 119 H (70-110) mg/dL Crossmatch See Detail 12/05/22 12/05/22 Range/Units 10:52 11:32 RBC 2.79 L (3.80-5.40) m/uL Hgb 8.5 L D (11.4-16.0) gm/dL Hct 25.8 L (34.0-46.0) % RDW 20.1 H (11.5-15.5) % Sodium (137-145) mmol/L Potassium (3.5-5.1) mmol/L Chloride (98-107) mmol/L Carbon Dioxide (22-30) mmol/L BUN (7-17) mg/dL Glucose (74-99) mg/dL POC Glucose (mg/dL) 127 H (70-110) mg/dL Crossmatch Diabetes panel 12/04/22 Range/Units 13:54 Sodium 136 L (137-145) mmol/L Potassium 3.4 L (3.5-5.1) mmol/L Chloride 97 L (98-107) mmol/L Carbon Dioxide 33 H (22-30) mmol/L BUN 61 H (7-17) mg/dL Creatinine 0.92 (0.52-1.04) mg/dL Glucose 115 H (74-99) mg/dL Calcium 9.3 (8.4-10.2) mg/dL Calcium panel 12/04/22 Range/Units 13:54 Calcium 9.3 (8.4-10.2) mg/dL Pituitary panel 12/04/22 Range/Units 13:54 Sodium 136 L (137-145) mmol/L Potassium 3.4 L (3.5-5.1) mmol/L Chloride 97 L (98-107) mmol/L Carbon Dioxide 33 H (22-30) mmol/L BUN 61 H (7-17) mg/dL Creatinine 0.92 (0.52-1.04) mg/dL Glucose 115 H (74-99) mg/dL Calcium 9.3 (8.4-10.2) mg/dL Adrenal panel 12/04/22 Range/Units 13:54 Sodium 136 L (137-145) mmol/L Potassium 3.4 L (3.5-5.1) mmol/L Chloride 97 L (98-107) mmol/L Carbon Dioxide 33 H (22-30) mmol/L BUN 61 H (7-17) mg/dL Creatinine 0.92 (0.52-1.04) mg/dL Glucose 115 H (74-99) mg/dL Calcium 9.3 (8.4-10.2) mg/dL - Imaging Abdominal x-ray: report reviewed CT scan - abdomen: report reviewed (No acute abnormalities) Assessment and Plan Assessment: Severe anemia. Patient was scheduled for EGD in the a.m.
[2022-12-05] MEDS: ACETAMINOPHEN TAB 325 MG TAB PO PRN (14:35)
[2022-12-05 15:31] LABS: African American GFR (CKD) 69 (>60 ml/min/1.73 sqM); Anion Gap 9 mmol/L; Blood Urea Nitrogen 55 mg/dL (7-17); Calcium 9.2 mg/dL (8.4-10.2); Carbon Dioxide 27 mmol/L (22-30); Chloride 99 mmol/L (98-107); Glucose 140 mg/dL (74-99); Magnesium 1.6 mg/dL (1.6-2.3); Non-African American GFR(CKD) 60 (>60 ml/min/1.73 sqM); Potassium 3.6 mmol/L (3.5-5.1); Sodium 135 mmol/L (137-145)
[2022-12-05 16:53] LABS: Glucose,Whole Blood 92 mg/dL (70-110)
--- NOTE | 2022-12-05 16:56 | P.PN ---
Subjective Progress Note Date: 12/05/22 (delayed charting seen at 1015) Patient is a well female with COPD on home O2 at 2-3 L, A. fib anticoagulated with Eliquis, diastolic CHF, coronary artery disease, hypertension, dyslipidem ia, insulin-dependent diabetes, and multiple other comorbid conditions who presented to the emergency department with weakness and diarrhea. Of note, She has had multiple admissions over the last 30 days: 11/10/22-11/12/22 treated for C diff, completed 10 day course of oral vancomycin, 11/17/22-11/22/22 treated for CHF In the emergency room she underwent an extensive evaluation. Chest x-ray showed possible pulmonary edema versus atelectasis, EKG showed rate controlled A. fib at 52 bpm with a right bundle branch block, vital signs were remarkable for SpO2 of 92% on 6 L nasal cannula and a blood pressure of 92/44. Laboratory analysis was remarkable for hemoglobin 10.7, potassium 3.3, BUN 50, creatinine 1.89 (up from baseline of 0.9), AST 90, ALT 39, alkaline phosphatase 129. A urine was co nsistent with urinary tract infection. Patient was started on IV Lasix and Rocephin. Arrangements are made for admission. Cardiology was consulted and she was maintained on IV Lasix. She diuresied well, her Cr was elevated and nephrology was consulted this improved with diuresis. She continued to struggle with frequent flatus with small BM. On the evening of 12/04 patient developed 3 started tarry bowel movements. Her hemoglobin dropped to 7.2 then down trended to 6.9. She received 1 unit of packed red blood cells. Her Eliquis is stopped, she was started on a clear liquid diet and IV PPI. General surgery was consulted. Hospital course Imaging: Renal ultrasound-cortical thinning of the right kidney Chest [id number] in pulmonary vascular congestion Patient seen and examined at bedside. Much less frequent BM, no abd pain, feeling better than yesterday. Vital signs reviewed General: nontoxic, no distress, appears at stated age Cardiovascular: S1S2 reg, no murmur, positive posterior tibial pulse bilateral, Lungs: course bs b/l, no rhonchi, no rales , no accessory muscle use Abdominal: soft, nontender to palpation, no guarding, no appreciable organomegaly Ext: no gross muscle atrophy, 1 + pitting edema b/l lower extremities, no contractures Neuro: CN II-XI grossly intact, no focal neuro deficits Psych: Alert, oriented, appropriate affect Assessment/Plan: Acute exacerbation of diastolic congestive heart failure, moderate pulmonary hypertension VALENTINA, due to ATN from cardio renal syndrome Paroxysmal atrial fibrillation, rate controlled CAD status post CABG 3 Hypertension Hyperlipidemia -Cardiology note reviewed: Agreed with holding anticoagulation -Case discussed with nephrology continue lasix and agree with blood given yesterday -Continue with Lasix 40 mg PO BID -Strict I's and O's, daily weights -Metoprolol 50 mg daily, patient was taking Cozaar however this has been held for her increased creatinine will hold with low normal BP amiodarone 200 mg twice daily -Lipitor 40 mg daily - follow Cr, avoid additional nephrotoxic agents Acute blood loss anemia GI bleed -Eliquis is on hold -Clear liquid diet -Protonix 40 mg twice daily -Case discussed with Dr. Arevalo. Likely EGD in a.m. - follow CBC in AM Chronic hypoxic respiratory failure secondary to advanced COPD, without exacerbation -Continue with Ventolin, Symbicort, Singulair -DuoNeb as needed Insulin-dependent diabetes mellitus. Episode of hypoglycemia -Continue to follow blood sugars, continue with sliding scale -Continue to hold Lantus 30 units every a.m. Transaminitis, chronic and stable upon review of previous labs. Proteus urinary tract infection, treated Imaging: CT abdomen and pelvis: No evidence of acute abdominal process, colon is nondistended without evidence of wall thickening. Data Review: Vitals reviewed. Patient afebrile for the last 24 hours. Pulse 63, respirations 18, blood pressure 102/44, O2 sat 93% on 4 L. Labs reviewed hemoglobin 8.5, sodium 135, BUN 50, magnesium 1.6, glucosewas 127. DVT prophylaxis: SCDs Anticipated discharge date: 12/[address]: [facility] This dictation was prepared using [employer] voice recognition software. Though every attempt is made to correct errors during dictation some may still exist. Objective - Vital Signs Vital signs: Vital Signs Temp 97.3 F L 12/05/22 08:20 Pulse 60 12/05/22 12:46 Resp 16 12/05/22 12:46 BP 110/65 12/05/22 12:46 Pulse Ox 92 L 12/05/22 12:46 FiO2 Intake & Output 12/04/22 12/05/22 12/05/22 18:59 06:59 18:59 Intake Total 20 310 240 Balance 20 310 240 Weight 87 kg Intake: IV 20 Invasive Line 1 20 Oral 240 Blood Product 310 Rc As-1 Unit 310 [id number] Other: Voiding Method Bedside Commode Bedside Commode Bedpan Bedpan # Voids 1 1 1 # Bowel Movements 3 1 2 - Labs CBC & Chem 7: 12/05/22 10:52 12/05/22 14:26 Labs: Abnormal Lab Results - Last 24 Hours (Table) 12/04/22 12/04/22 12/04/22 Range/Units 17:07 20:13 21:44 RBC 2.48 L (3.80-5.40) m/uL Hgb 7.2 L (11.4-16.0) gm/dL Hct 23.0 L (34.0-46.0) % RDW 20.9 H (11.5-15.5) % Sodium (137-145) mmol/L BUN (7-17) mg/dL Glucose (74-99) mg/dL POC Glucose (mg/dL) 118 H 122 H (70-110) mg/dL Crossmatch 12/05/22 12/05/22 12/05/22 Range/Units 00:10 01:54 02:12 RBC 2.41 L (3.80-5.40) m/uL Hgb 6.9 L* (11.4-16.0) gm/dL Hct 22.3 L (34.0-46.0) % RDW 21.0 H (11.5-15.5) % Sodium (137-145) mmol/L BUN (7-17) mg/dL Glucose (74-99) mg/dL POC Glucose (mg/dL) 120 H (70-110) mg/dL Crossmatch See Detail 12/05/22 12/05/22 12/05/22 Range/Units 06:23 10:52 11:32 RBC 2.79 L (3.80-5.40) m/uL Hgb 8.5 L D (11.4-16.0) gm/dL Hct 25.8 L (34.0-46.0) % RDW 20.1 H (11.5-15.5) % Sodium (137-145) mmol/L BUN (7-17) mg/dL Glucose (74-99) mg/dL POC Glucose (mg/dL) 119 H 127 H (70-110) mg/dL Crossmatch 12/05/22 Range/Units 14:26 RBC (3.80-5.40) m/uL Hgb (11.4-16.0) gm/dL Hct (34.0-46.0) % RDW (11.5-15.5) % Sodium 135 L (137-145) mmol/L BUN 55 H (7-17) mg/dL Glucose 140 H (74-99) mg/dL POC Glucose (mg/dL) (70-110) mg/dL Crossmatch
[2022-12-05] MEDS: MAGNESIUM SULFATE-D5W PMX 1 GM in DEXTROSE/WATER 1 100ML.BAG IVPB SCH ×4 (17:02→23:09)
[2022-12-05 20:28] LABS: Glucose,Whole Blood 121 mg/dL (70-110)
[2022-12-05] MEDS: ATORVASTATIN 40 MG TAB PO SCH (20:45)
[2022-12-06 02:07] LABS: Glucose,Whole Blood 137 mg/dL (70-110)
[2022-12-06 06:06] LABS: Glucose,Whole Blood 122 mg/dL (70-110)
[2022-12-06] MEDS: INSULIN ASPART (NovoLOG) 100 UNIT/ML VIAL SQ SCH ×4 (06:17→20:50)
[2022-12-06] MEDS: ASCORBIC ACID 500 MG TAB PO SCH (08:06)
[2022-12-06] MEDS: HYDROcodone/APAP 10-325MG 1 EACH TAB PO PRN ×2 (08:09→17:57)
[2022-12-06] MEDS: GABAPENTIN 300 MG CAP PO SCH ×3 (08:09→20:46)
[2022-12-06] MEDS: CHOLECALCIFEROL 125 MCG (5000 IU) TABLET PO SCH (08:11)
[2022-12-06] MEDS: FERROUS SULFATE 325 MG TAB PO SCH (08:11)
[2022-12-06] MEDS: POTASSIUM CHLORIDE ER 20 MEQ TAB.ER PO SCH (08:11)
[2022-12-06] MEDS: METOPROLOL TARTRATE 50 MG TAB PO SCH ×2 (08:11→20:48)
[2022-12-06] MEDS: FUROSEMIDE 40 MG TAB PO SCH ×2 (08:11→17:20)
[2022-12-06] MEDS: PANTOPRAZOLE 40 MG TABLET PO SCH ×3 (08:11→20:48)
[2022-12-06] MEDS: DULoxetine HCL 60 MG CAPSULE.DR PO SCH (08:11)
[2022-12-06] MEDS: LACTOBACILLUS ACIDOPHILUS/PECT 1 EACH CAPSULE PO SCH ×2 (08:11→20:46)
[2022-12-06] MEDS: AMIODARONE 200 MG TAB PO SCH ×2 (08:12→20:46)
[2022-12-06] MEDS: SYMBICORT 160-4.5 MCG INHALER INHALATION SCH ×2 (08:19→20:25)
[2022-12-06 08:34] VITALS: BMI 30.9
[2022-12-06 09:28] LABS: Anisocytosis Moderate; HCT 26.6 % (34.0-46.0); HGB 8.4 gm/dL (11.4-16.0); Hypochromasia Marked; MCHC 31.5 g/dL (31.0-37.0); MCV 95.3 fL (80.0-100.0); Macrocytosis Slight; Mean Platelet Volume 9.4; Platelet Count 201 k/uL (150-450); RBC 2.79 m/uL (3.80-5.40); WBC 8.1 k/uL (3.8-10.6)
[2022-12-06 09:38] LABS: African American GFR (CKD) 71 (>60 ml/min/1.73 sqM); Blood Urea Nitrogen 50 mg/dL (7-17); Calcium 8.7 mg/dL (8.4-10.2); Carbon Dioxide 28 mmol/L (22-30); Glucose 106 mg/dL (74-99); Non-African American GFR(CKD) 62 (>60 ml/min/1.73 sqM)
[2022-12-06 10:07] LABS: Magnesium 2.4 mg/dL (1.6-2.3)
[2022-12-06 10:12] LABS: Anion Gap 6 mmol/L; Chloride 97 mmol/L (98-107); Sodium 131 mmol/L (137-145)
[2022-12-06 10:17] LABS: Potassium 4.3 mmol/L (3.5-5.1)
[2022-12-06] MEDS ORDERED: PHENYLEPHRINE-0.9% NACL SYG 1,000 MCG/10 ML SYRINGE ONE (10:48)
[2022-12-06] MEDS ORDERED: LIDOCAINE 2% INJ 20 MG/ML (2 ML VIAL) ONE (10:48)
[2022-12-06] MEDS ORDERED: PROPOFOL 10 MG/ML 20 ML VIAL IV ONE (10:48)
[2022-12-06] MEDS ORDERED: SODIUM CHLORIDE 0.9% 500 ML 500 ML IV ONE (10:48)
--- NOTE | 2022-12-06 10:56 | P.OP ---
Date of Procedure: 12/06/22 Preoperative Diagnosis: Anemia Postoperative Diagnosis: Antral gastritis Esophagitis Procedure(s) Performed: EGD Anesthesia: MAC Surgeon: Jaskaran Son Pathology: other (Antrum, esophagus) Condition: stable Disposition: PACU Description of Procedure: The patient's placed on the endoscopy table in the lateral position. She received IV sedation. The gastro-/oropharynx passed in the esophagus into the stomach. Scope was placed through the pylorus. The first and second portion of duodenum appeared normal. Scope was then brought back the antrum and this was mildly inflamed. A biopsy was performed. Scope was unretroflexed meters stomach appeared normal. The GE junction was at 40 cm. The distal esophagus appeared moderately inflamed. A biopsies performed. The proximal esophagus appeared normal. Scope withdrawn for patient. There is no evidence of any active upper GI bleed. His presumed patient may have had bleeding from gastritis.
[2022-12-06 11:39] LABS: Glucose,Whole Blood 122 mg/dL (70-110)
[2022-12-06] MEDS: LETROZOLE 2.5 MG TAB PO SCH (12:53)
[2022-12-06] MEDS: NON FORMULARY DRUG (Ubidecarenone [Coenzyme Q10] 200 MG Capsule) PO SCH (12:54)
[2022-12-06] MEDS: MONTELUKAST 10 MG TAB PO SCH (12:56)
--- NOTE | 2022-12-06 13:27 | P.PN ---
Subjective HISTORY OF PRESENT ILLNESS: The patient is a 67-year-old female patient with CAD status post CABG and heart failure with a preserved ejection fraction as well as hypertension and dyslipidemia and paroxysmal atrial fibrillation and multiple comorbid conditions. She was admitted to the hospital with acute on chronic hypoxic respiratory failure secondary to heart failure and COPD exacerbation December 042022 The patient was seen and evaluated this morning. The patient seems to be feeling somewhat better until of shortness of breath she seems to be euvolemic on examination. With that being 0 point to stop the Lasix IV and start the patient on oral Lasix. Continue the rest of the current medical regimen. The examination is remarkable for stable vital signs with diminished breathing sounds bilaterally and regular rate and rhythm 12/05/2022 The patient was seen and evaluated this morning. She is feeling better in terms of shortness of breath. She seems to be euvolemic on examination as well. Her hemoglobin this morning is 6.9. Oral anticoagulation are on hold at this point. On examination she has regular rhythm with diminished breathing sounds bilaterally and mild bilateral lower extremity is edema. 12/06/2022 Patient examined this morning at the bedside. Patient is resting comfortably in bed. Patient denies chest pain or pressure. She denies shortness of breath. She is scheduled for EGD today with general surgery secondary to anemia. Her anticoagulation remains on hold. Telemetry reveals sinus mechanism. PHYSICAL EXAM: VITAL SIGNS: Reviewed. GENERAL: Well-developed in no acute distress. NECK: Supple. No JVD or thyromegaly LUNGS: Respirations even and unlabored. Lungs essentially clear to auscultation bilaterally. HEART: Regular rate and rhythm. S1 and S2 heard. EXTREMITIES: Normal range of motion. No clubbing or cyanosis. Peripheral pulses intact. No lower extremity edema ASSESSMENT: Anemia, patient scheduled for EGD today with general surgery Acute on chronic hypoxic respiratory failure Paroxysmal atrial fibrillation Acute on chronic heart failure with preserved ejection fraction Multiple comorbid conditions Coronary artery disease with previous CABG Hypertension Hyperlipidemia PLAN: Continue current cardiac medications Patient's anticoagulation remains on hold She is scheduled for EGD today with general surgery Further recommendations pending patient's course Nurse practitioner note has been reviewed by physician. Signing provider agrees with the documented findings, assessment, and plan of care. Objective - Vital Signs Vital signs: Vital Signs Temp 97.7 F 12/06/22 12:00 Pulse 54 L 12/06/22 12:00 Resp 16 12/06/22 12:00 BP 96/52 12/06/22 12:00 Pulse Ox 100 12/06/22 12:00 FiO2 Intake & Output 12/05/22 12/06/22 12/06/22 18:59 06:59 18:59 Intake Total 240 100 Balance 240 100 Weight 87 kg Intake: IV 100 Oral 240 Other: Voiding Method Bedside Commode Bedside Commode Bedpan Bedpan # Voids 1 # Bowel Movements 2 - Labs CBC & Chem 7: 12/06/22 08:56 12/06/22 08:56 Labs: Abnormal Lab Results - Last 24 Hours (Table) 12/05/22 12/05/22 12/06/22 Range/Units 14:26 20:27 02:06 RBC (3.80-5.40) m/uL Hgb (11.4-16.0) gm/dL Hct (34.0-46.0) % RDW (11.5-15.5) % Sodium 135 L (137-145) mmol/L Chloride (98-107) mmol/L BUN 55 H (7-17) mg/dL Glucose 140 H (74-99) mg/dL POC Glucose (mg/dL) 121 H 137 H (70-110) mg/dL Magnesium (1.6-2.3) mg/dL 12/06/22 12/06/22 12/06/22 Range/Units 06:05 08:56 08:56 RBC 2.79 L (3.80-5.40) m/uL Hgb 8.4 L (11.4-16.0) gm/dL Hct 26.6 L (34.0-46.0) % RDW 21.0 H (11.5-15.5) % Sodium 131 L (137-145) mmol/L Chloride 97 L (98-107) mmol/L BUN 50 H (7-17) mg/dL Glucose 106 H (74-99) mg/dL POC Glucose (mg/dL) 122 H (70-110) mg/dL Magnesium 2.4 H (1.6-2.3) mg/dL 12/06/22 Range/Units 11:37 RBC (3.80-5.40) m/uL Hgb (11.4-16.0) gm/dL Hct (34.0-46.0) % RDW (11.5-15.5) % Sodium (137-145) mmol/L Chloride (98-107) mmol/L BUN (7-17) mg/dL Glucose (74-99) mg/dL POC Glucose (mg/dL) 122 H (70-110) mg/dL Magnesium (1.6-2.3) mg/dL
--- NOTE | 2022-12-06 13:49 | P.PN ---
Subjective Progress Note Date: 12/06/22 Hospital course: Patient is a pleasant 67-year-old female with a past medical history of advanced COPD home oxygen dependent on 2-3 L at all times, atrial fibrillation on anticoagulation with Eliquis, CAD status post CABG 3, hypertension, hyperlipidemia, insulin-dependent diabetes mellitus, and history of polio with right-sided neuropathy/deficits. She presented to the emergency department with a chief complaint of nausea and diarrhea, and weakness. Patient has had multiple admissions over the last 30 days in which she underwent treatment for C. diff (11/10/22-11/12/22) and completed 10 day course of oral vancomycin, followed by a hospitalization for CHF exacerbation (11/17/22-11/22/22) and now presented to ED on 11/29/22 with reports of continued progressive weakness and fatigue, persistant loose stools, and nausea. Patient has been under close outpatient follow-up with her PCP and was sent back to the hospital for reevaluation secondary to concerns of her persistent weakness. Upon arrival to the emergency department patient underwent full evaluation. An EKG was complet ed showing sinus bradycardia at 52 bpm with a right bundle branch block upon personal review and interpretation. These findings similar when compared to previous EKG completed on 11/17/22 with no significant changes noted. A chest x- ray was completed concerning for congestive heart failure and radiology report stating low lung volumes with generalized hazy appearance possibly representing atelectasis versus pulmonary edema correlate with serum BNP. Labs completed and reviewed. CBC showing a stable normocytic anemia with hemoglobin of 10.7 and at baseline values. Coagulation profile showing elevated PT of 13.5 and INR 1.3. BMP revealing hyperkalemia with potassium of 3.3 and an acute kidney injury with BUN of 50, creatinine 1.89, and GFR of 27. Patient was hypoglycemic with glucose of 69. Liver profile revealing transaminitis with AST of 90, ALT of 39, and alkaline phosphatase of 129. Troponin was negative at less than 0.012 and proBNP was elevated at 2320 showing increased from previous hospitalization with proBNP of 1490. Urinalysis was positive for blood and infection, urine culture was sent to lab for analysis. Influenza A, influenza B, RSV, and Covid PCR negative. Patient was admitted under our services with consultation to cardiology for management of acute CHF exacerbation and nephrology secondary to acute kidney injury and continued need for diuresis. On the evening of 12/04/22 patient developed dark tarry stools 3 episodes and was found to have a hemoglobin drop to 7.2 and down to 6.9. Patient received 1 unit PRBCs and anticoagulant, Eliquis was held and patient scheduled to undergo EGD later today. Physical exam: Patient seen and fully evaluated at bedside this morning. She appeared to be comfortable resting in bed. Patient denied having any needs or complaints at this time. Patient aware she is awaiting to be taken down for scheduled EGD lat er today with Dr. Son. Vital signs reviewed and stable. General: Nontoxic, no distress and appears stated age. Derm: Skin warm and dry, normal coloration for ethnicity. Head: Atraumatic, normocephalic and symmetric. Eyes: EOMs intact, no lid lag, and anicteric sclera Mouth: no lip lesions, mucus membranes moist Cardiovascular: regular rate and rhythm with normal S1S2, no murmur, positive posterior tibial pulses bilaterally, and cap refill < 2 seconds. Lungs: Respirations even, regular, and unlabored on 4L O2 via NC. Lungs diminished, worse RLL with diffuse expiratory wheezes. No rhonchi, no rales, no crackles noted. No accessory muscle usage. Abdominal: soft, nontender to palpation, no guarding, no appreciable organomegaly Ext: ROM intact. No gross muscle atrophy, 1+ edema, no contractures Neuro: Speech clear, face symmetrical and CN II-XII grossly intact with no noted focal neuro deficits Psych: Alert and oriented to person, place, time, and situation. Appropriate and pleasant affect. Assessment and Plan of Care: Acute on chronic diastolic heart failure with previously known EF of 60-65% Moderate pulmonary hypertension Acute kidney injury, secondary to ATN from cardiorenal syndrome Paroxysmal Atrial fibrillation CAD status post CABG 3 Hypertension Hyperlipidemia -Cardiology following and discussed plan of care with cardiology INTERMISSION COORDINATOR. -Telemetry monitoring -ProBNP was elevated at 2320 -Daily weights -Order placed for strict monitoring of I's and O's every shift -Cardiac diet -Lasix 40 mg IVP twice daily in addition to metolazone 5 mg daily. -Continued close monitoring of electrolytes while diuresing. -Continue home cardiac medication regimen with Metolazone 5 mg daily, amiodarone 200 mg twice daily, amlodipine 5 mg twice daily, anticoagulation with Eliquis 5 mg twice a day, atorvastatin 40 mg nightly, and metoprolol 50 mg twice daily Acute blood loss anemia Concerns of upper GI bleed Patient scheduled to undergo EGD later today with general surgery. Morning labs reviewed. Hemoglobin stable at 8.4. Continue Protonix 40 mg twice daily Continue to hold Eliquis pending further recommendations of general surgery. Transaminitis, chronic and stable upon review of previous labs. Chronic hypoxic respiratory failure secondary to advanced COPD home oxygen dependent -Duonebs as needed for SOB and/or wheezing -Continue Ventolin, Symbicort and Singulair. Insulin-dependent diabetes mellitus with episode of hypoglycemia -Blood glucose upon arrival was 69. Currently blood glucose 106 with no further episodes of hypoglycemia noted since arrival to our facility and holding of daily Levemir. -Continue to hold Levemir 30 unitsdaily and continue glycemic protocol with NovoLog sliding scale. Data review Morning labs reviewed. CBC showing stable normocytic anemia with hemoglobin of 8.4. BMP revealing hyponatremia with sodium 131, hypochloremia with chloride 97, and elevated BUN of 50. Blood glucose a little 106 this morning. Vital signs reviewed . Blood pressure 98/50, heart rate 66, respiratory rate 18, temp 98.8F, and SpO2 of 91% on 4 L O2 via nasal cannula. Imaging review: No new imaging for review at this time. CODE STATUS: Full code DVT prophylaxis: Eliquis Discussed with: Pt and RN. Anticipated discharge date: Clinical course to determine Anticipated discharge place: Home Patient was seen independently by Nurse Practitioner. This document was prepared using [employer] dictation software. Please allow for errors in senior contracts manager while rare they do occur. I reviewed the documentation as provided by the CHARLA above, who is the original author of this note. I agree with the documented assessment and plan, with the following changes: none Objective - Vital Signs Vital signs: Vital Signs Temp 98.8 F 12/06/22 04:00 Pulse 66 12/06/22 04:00 Resp 18 12/06/22 04:00 BP 98/50 12/06/22 04:00 Pulse Ox 91 L 12/06/22 04:00 FiO2 Intake & Output 12/05/22 12/06/22 12/06/22 18:59 06:59 18:59 Intake Total 240 Balance 240 Intake: Oral 240 Other: Voiding Method Bedside Commode Bedside Commode Bedpan Bedpan # Voids 1 # Bowel Movements 2 - Labs CBC & Chem 7: 12/06/22 08:56 12/06/22 08:56 Labs: Abnormal Lab Results - Last 24 Hours (Table) 12/05/22 12/05/22 12/05/22 Range/Units 10:52 11:32 14:26 RBC 2.79 L (3.80-5.40) m/uL Hgb 8.5 L D (11.4-16.0) gm/dL Hct 25.8 L (34.0-46.0) % RDW 20.1 H (11.5-15.5) % Sodium 135 L (137-145) mmol/L BUN 55 H (7-17) mg/dL Glucose 140 H (74-99) mg/dL POC Glucose (mg/dL) 127 H (70-110) mg/dL 12/05/22 12/06/22 12/06/22 Range/Units 20:27 02:06 06:05 RBC (3.80-5.40) m/uL Hgb (11.4-16.0) gm/dL Hct (34.0-46.0) % RDW (11.5-15.5) % Sodium (137-145) mmol/L BUN (7-17) mg/dL Glucose (74-99) mg/dL POC Glucose (mg/dL) 121 H 137 H 122 H (70-110) mg/dL
--- NOTE | 2022-12-06 13:56 | P.PN ---
Subjective Progress Note Date: 12/06/22 CHIEF COMPLAINT: Anemia HISTORY OF PRESENT ILLNESS: Patient status post EGD revealing antral gastritis and esophagitis. There is no evidence of any active bleeding. Presumed the patient may have had bleeding from gastritis. Hgb stable at 8.4 PHYSICAL EXAM: VITAL SIGNS: Reviewed. ABDOMEN: Soft. ASSESSMENT: 1. Antral gastritis and esophagitis 2. Anemia PLAN: -Continue to observe -Continue regular diet -Continue Protonix Physician Fly Winder note has been reviewed by physician. Signing provider agrees with the documented findings, assessment, and plan of care. Objective - Vital Signs Vital signs: Vital Signs Temp 97.7 F 12/06/22 11:06 Pulse 57 L 12/06/22 11:06 Resp 18 12/06/22 11:06 BP 97/46 12/06/22 11:06 Pulse Ox 95 12/06/22 11:06 FiO2 Intake & Output 12/05/22 12/06/22 12/06/22 18:59 06:59 18:59 Intake Total 240 100 Balance 240 100 Weight 87 kg Intake: IV 100 Oral 240 Other: Voiding Method Bedside Commode Bedside Commode Bedpan Bedpan # Voids 1 # Bowel Movements 2 - Labs CBC & Chem 7: 12/06/22 08:56 12/06/22 08:56 Labs: Abnormal Lab Results - Last 24 Hours (Table) 12/05/22 12/05/22 12/06/22 Range/Units 14:26 20:27 02:06 RBC (3.80-5.40) m/uL Hgb (11.4-16.0) gm/dL Hct (34.0-46.0) % RDW (11.5-15.5) % Sodium 135 L (137-145) mmol/L Chloride (98-107) mmol/L BUN 55 H (7-17) mg/dL Glucose 140 H (74-99) mg/dL POC Glucose (mg/dL) 121 H 137 H (70-110) mg/dL Magnesium (1.6-2.3) mg/dL 12/06/22 12/06/22 12/06/22 Range/Units 06:05 08:56 08:56 RBC 2.79 L (3.80-5.40) m/uL Hgb 8.4 L (11.4-16.0) gm/dL Hct 26.6 L (34.0-46.0) % RDW 21.0 H (11.5-15.5) % Sodium 131 L (137-145) mmol/L Chloride 97 L (98-107) mmol/L BUN 50 H (7-17) mg/dL Glucose 106 H (74-99) mg/dL POC Glucose (mg/dL) 122 H (70-110) mg/dL Magnesium 2.4 H (1.6-2.3) mg/dL 12/06/22 Range/Units 11:37 RBC (3.80-5.40) m/uL Hgb (11.4-16.0) gm/dL Hct (34.0-46.0) % RDW (11.5-15.5) % Sodium (137-145) mmol/L Chloride (98-107) mmol/L BUN (7-17) mg/dL Glucose (74-99) mg/dL POC Glucose (mg/dL) 122 H (70-110) mg/dL Magnesium (1.6-2.3) mg/dL
[2022-12-06 16:45] LABS: Glucose,Whole Blood 177 mg/dL (70-110)
[2022-12-06] MEDS: ATORVASTATIN 40 MG TAB PO SCH (20:46)
[2022-12-06 20:51] LABS: Glucose,Whole Blood 144 mg/dL (70-110)
[2022-12-06 20:55] VITALS: TEMP 98.1
[2022-12-07 06:23] LABS: Glucose,Whole Blood 129 mg/dL (70-110)
[2022-12-07] MEDS: INSULIN ASPART (NovoLOG) 100 UNIT/ML VIAL SQ SCH (06:38)
[2022-12-07 09:00] LABS: Anisocytosis Moderate; HCT 26.1 % (34.0-46.0); HGB 8.3 gm/dL (11.4-16.0); Hypochromasia Moderate; MCH 29.9 pg (25.0-35.0); MCHC 31.8 g/dL (31.0-37.0); MCV 94.1 fL (80.0-100.0); Macrocytosis Slight; Mean Platelet Volume 9.9; Platelet Count 174 k/uL (150-450); RBC 2.77 m/uL (3.80-5.40); RDW 21.4 % (11.5-15.5); WBC 8.3 k/uL (3.8-10.6)
[2022-12-07] MEDS: LETROZOLE 2.5 MG TAB PO SCH (09:37)
[2022-12-07] MEDS: MONTELUKAST 10 MG TAB PO SCH (09:37)
[2022-12-07] MEDS: ASCORBIC ACID 500 MG TAB PO SCH (09:37)
[2022-12-07] MEDS: LACTOBACILLUS ACIDOPHILUS/PECT 1 EACH CAPSULE PO SCH (09:37)
[2022-12-07] MEDS: GABAPENTIN 300 MG CAP PO SCH (09:37)
[2022-12-07] MEDS: METOPROLOL TARTRATE 50 MG TAB PO SCH (09:38)
[2022-12-07] MEDS: PANTOPRAZOLE 40 MG TABLET PO SCH (09:38)
[2022-12-07] MEDS: CHOLECALCIFEROL 125 MCG (5000 IU) TABLET PO SCH (09:38)
[2022-12-07] MEDS: POTASSIUM CHLORIDE ER 20 MEQ TAB.ER PO SCH (09:38)
[2022-12-07] MEDS: FERROUS SULFATE 325 MG TAB PO SCH (09:38)
[2022-12-07] MEDS: FUROSEMIDE 40 MG TAB PO SCH (09:38)
[2022-12-07] MEDS: DULoxetine HCL 60 MG CAPSULE.DR PO SCH (09:38)
[2022-12-07] MEDS: AMIODARONE 200 MG TAB PO SCH (09:38)
[2022-12-07 09:43] VITALS: PULSE 60; RESP 16
[2022-12-07] MEDS: SYMBICORT 160-4.5 MCG INHALER INHALATION SCH (09:45)
--- NOTE | 2022-12-07 10:09 | P.DS ---
Providers Date of admission: 11/29/22 17:46 Expected date of discharge: 12/07/22 Attending physician: Jesse Patton MD Consults: 11/29/22 17:46 Consult Physician Routine Consulting Provider: [facility] Consult Reason/Comments: chf Do you want consulting provider notified?: Yes 11/30/22 12:52 Consult Physician Routine Consulting Provider: Prudence Shields Consult Reason/Comments: VALENTINA with CHF exacerbation and need for cont lasix Do you want consulting provider notified?: Yes 12/04/22 18:19 Consult Physician Routine Consulting Provider: Jaskaran Son Consult Reason/Comments: melena Do you want consulting provider notified?: Yes Primary care physician: Teja Lozano MD Hospital Course: Discharge Diagnosis: Acute on chronic diastolic heart failure with previously known EF of 60-65%. Moderate pulmonary hypertension Acute kidney injury, secondary to ATN from cardiorenal syndrome Paroxysmal Atrial fibrillation CAD status post CABG 3 Hypertension Hyperlipidemia Acute blood loss anemia Concerns of upper GI bleed, EGD showing mild gastritiis. Biopsies taken. Transaminitis, chronic and stable upon review of previous labs. Chronic hypoxic respiratory failure secondary to advanced COPD home oxygen dependent Insulin-dependent diabetes mellitus with episode of hypoglycemia. Hemoglobin A1c 5.4%. Insulin discontinued at this time. Hospital Course: Patient is a pleasant 67-year-old female with a past medical history of advanced COPD home oxygen dependent on 2-3 L at all times, atrial fibrillation on anticoagulation with Eliquis, CAD status post CABG 3, hypertension, hyperlipidemia, insulin-dependent diabetes mellitus, and history of polio with right-sided neuropathy/deficits. She presented to the emergency department with a chief complaint of nausea and diarrhea, and weakness. Patient has had multiple admissions over the last 30 days in which she underwent treatment for C. diff (11/10/22-11/12/22) and completed 10 day course of oral vancomycin, followed by a hospitalization for CHF exacerbation (11/17/22-11/22/22) and now presented to ED on 11/29/22 with reports of continued progressive weakness and fatigue, persistant loose stools, and nausea. Patient has been under close outpatient follow-up with her PCP and was sent back to the hospital for reevaluation secondary to concerns of her persistent weakness. Upon arrival to the emergency department patient underwent full evaluation. An EKG was completed showing sinus bradycardia at 52 bpm with a right bundle branch block upon personal review and interpretation. These findings similar when compared to previous EKG completed on 11/17/22 with no significant changes noted. A chest x-ray was completed concerning for congestive heart failure and radiology report stating low lung volumes with generalized hazy appearance possibly representing atelectasis versus pulmonary edema correlate with serum BNP. Labs completed and reviewed. CBC showing a stable normocytic anemia with hemoglobin of 10.7 and at baseline values. Coagulation profile showing elevated PT of 13.5 and INR 1.3. BMP revealing hyperkalemia with potassium of 3.3 and an acute kidney injury with BUN of 50, creatinine 1.89, and GFR of 27. Patient was hypoglycemic with glucose of 69. Liver profile revealing transaminitis with AST of 90, ALT of 39, and alkaline phosphatase of 129. Troponin was negative at less than 0.012 and proBNP was elevated at 2320 showing increased from previous hospitalization with proBNP of 1490. Urinalysis was positive for blood and infection, urine culture was sent to lab for analysis. Influenza A, influenza B, RSV, and Covid PCR negative. Patient was admitted under our services with consultation to cardiology for management of acute CHF exacerbation and nephrology secondary to acute kidney injury and continued need for diuresis. On the evening of 12/04/22 patient developed dark tarry stools 3 episodes and was found to have a hemoglobin drop to 7.2 and down to 6.9. Patient received 1 unit PRBCs and anticoagulant, Eliquis was held and patient underwent EGD on 12/06/22. Patient was found to have a mildly inflamed antrum and a moderately inflamed distal esophagitis. Biopsies were performed. Patient cleared from general surgery for outpatient follow-up in our office next week. She had no further episodes of dark tarry stools. Hemoglobin stable at 8.3. Patient cleared from cardiac standpoint for discharge, recommending continuing to hold Eliquis after repeat CBC is completed in 1 week and follow up outpatient with general surgeon and cleared to resume anticoagulant. Nephrology recommending to maintain Lasix and continue low-salt diet with 1500 mL fluid restriction and outpatient follow-up in the office in one week. Medically, patient is stable for discharge at this time. Arrangements have been made for patient to be discharged to [facility] facility. Patient discharged to [facility] at this time and follow up outpatient with PCP, bag valver, clinical specialist, in general surgeon as directed. Physical exam: Vital signs reviewed and stable. General: Nontoxic, no distress and appears stated age. Derm: Skin warm and dry, normal coloration for ethnicity. Head: Atraumatic, normocephalic and symmetric. Eyes: EOMs intact, no lid lag, and anicteric sclera Mouth: no lip lesions, mucus membranes moist Cardiovascular: regular rate and rhythm with normal S1S2, no murmur, positive posterior tibial pulses bilaterally, and cap refill < 2 seconds. Lungs: Respirations even, regular, and unlabored on 4L O2 via NC. Lungs diminished, worse RLL with diffuse expiratory wheezes. No rhonchi, no rales, no crackles noted. No accessory muscle usage. Abdominal: soft, nontender to palpation, no guarding, no appreciable organomegaly Ext: ROM intact. No gross muscle atrophy, 1+ edema, no contractures Neuro: Speech clear, face symmetrical and CN II-XII grossly intact with no noted focal neuro deficits Psych: Alert and oriented to person, place, time, and situation. Appropriate and pleasant affect. A total of 39 minutes of time were spent preparing this complex discharge summary. Pt was discharged on 12/07/22 at 9:58 AM. Patient was seen independently by Nurse Practitioner. This document was prepared using [employer]™ Audio dictation software. Please allow for errors in orange peel operator while rare they do occur. I reviewed the documentation as provided by the CHARLA above, who is the original author of this note. I agree with the documented assessment and plan, with the following changes: none Patient Condition at Discharge: Stable Plan - Discharge Summary Discharge Rx Participant: No New Discharge Prescriptions: New Simethicone Chew [Mylicon Chew] 80 mg PO QID PRN tab PRN Reason: Bloating Gabapentin [Neurontin] 600 mg PO TID #9 cap Pantoprazole [Protonix] 40 mg PO BID tab Acetaminophen Tab [Tylenol] 650 mg PO Q6HR PRN tab PRN Reason: Fever And/ Or Pain Continue DULoxetine HCL [Cymbalta] 60 mg PO DAILY Atorvastatin [Lipitor] 40 mg PO HS Metoprolol Tartrate [Lopressor] 50 mg PO BID Budesonide-Formot 160-4.5 Mcg [Symbicort 160-4.5 Mcg Inhaler] 2 puff INHALATION RT-BID Letrozole [Femara] 2.5 mg PO DAILY Biotin [Biotin Disolve] 10,000 mcg PO DAILY Cholecalciferol [Vitamin D3 (125 Mcg = 5000 Iu)] 125 mcg PO DAILY Cyanocobalamin (Vitamin B-12) [Vitamin B-12] 2,000 mcg PO DAILY Albuterol Inhaler [Ventolin Hfa Inhaler] 2 puff INHALATION RT-QID PRN PRN Reason: Shortness Of Breath Furosemide [Lasix] 40 mg PO BID@0900,1600 #60 tab Lactobacillus Acidophilus [Acidophilus Probiotic] 1 cap PO DAILY Montelukast [Singulair] 10 mg PO DAILY Gabapentin 600 mg PO TID Ferrous Sulfate [Iron (65 MG Elemental)] 325 mg PO W/LUNCH #60 tab Ascorbic Acid [Vitamin C] 250 mg PO DAILY #60 tab Amiodarone [Cordarone] 200 mg PO BID Ondansetron Odt [Zofran ODT] 4 mg PO Q8HR PRN #30 tab PRN Reason: Nausea And Vomiting Ubidecarenone [Coenzyme Q10] 200 mg PO DAILY Changed HYDROcodone/APAP 10-325MG [Flushing 10-325] 1 tab PO Q6H PRN #9 tab PRN Reason: Pain Discontinued Omeprazole [PriLOSEC] 20 mg PO DAILY metOLazone [Zaroxolyn] 5 mg PO DAILY #30 tab Insulin Glargine,Hum.rec.anlog [Lantus Solostar Pen] 30 units SQ HS amLODIPine [Norvasc] 5 mg PO BID Losartan [Cozaar] 25 mg PO DAILY #30 tab No Action Apixaban [Eliquis] 5 mg PO BID Discharge Medication List Atorvastatin [Lipitor] 40 mg PO HS 03/23/16 [History] DULoxetine HCL [Cymbalta] 60 mg PO DAILY 03/23/16 [History] Metoprolol Tartrate [Lopressor] 50 mg PO BID 03/23/16 [History] Montelukast [Singulair] 10 mg PO DAILY 05/18/21 [History] Gabapentin 600 mg PO TID 06/29/21 [History] Budesonide-Formot 160-4.5 Mcg [Symbicort 160-4.5 Mcg Inhaler] 2 puff INHALATION RT-BID 04/06/22 [History] Biotin [Biotin Disolve] 10,000 mcg PO DAILY 09/03/22 [History] Letrozole [Femara] 2.5 mg PO DAILY 09/03/22 [History] Apixaban [Eliquis] 5 mg PO BID 09/06/22 [History] Cholecalciferol [Vitamin D3 (125 Mcg = 5000 Iu)] 125 mcg PO DAILY 09/06/22 [History] Cyanocobalamin (Vitamin B-12) [Vitamin B-12] 2,000 mcg PO DAILY 09/06/22 [History] Ascorbic Acid [Vitamin C] 250 mg PO DAILY #60 tab 09/09/22 [Rx] Ferrous Sulfate [Iron (65 MG Elemental)] 325 mg PO W/LUNCH #60 tab 09/09/22 [Rx] Albuterol Inhaler [Ventolin Hfa Inhaler] 2 puff INHALATION RT-QID PRN 11/10/22 [History] Amiodarone [Cordarone] 200 mg PO BID 11/10/22 [History] Ondansetron Odt [Zofran ODT] 4 mg PO Q8HR PRN #30 tab 11/11/22 [Rx] Furosemide [Lasix] 40 mg PO BID@0900,1600 #60 tab 11/22/22 [Rx] Lactobacillus Acidophilus [Acidophilus Probiotic] 1 cap PO DAILY 11/29/22 [History] Ubidecarenone [Coenzyme Q10] 200 mg PO DAILY 11/29/22 [History] Acetaminophen Tab [Tylenol] 650 mg PO Q6HR PRN tab 12/07/22 [Rx] Gabapentin [Neurontin] 600 mg PO TID #9 cap 12/07/22 [Rx] HYDROcodone/APAP 10-325MG [Flushing 10-325] 1 tab PO Q6H PRN #9 tab 12/07/22 [Rx] Pantoprazole [Protonix] 40 mg PO BID tab 12/07/22 [Rx] Simethicone Chew [Mylicon Chew] 80 mg PO QID PRN tab 12/07/22 [Rx] Follow up Appointment(s)/Referral(s): Teja Lozano MD [Primary Care Provider] - 1-2 days Allan Linares DO [STAFF PHYSICIAN] - 1 Week Piter Broderick MD [STAFF PHYSICIAN] - 1 Week Jaskaran Son MD [STAFF PHYSICIAN] - 1 Week Ambulatory/Diagnostic Orders: Complete Blood Count w/diff [LAB.AMB] Time Frame: 3 Days, Location: None Selected Activity/Diet/Wound Care/Special Instructions: Activity: As tolerated. Take breaks as needed. Diet: Heart healthy and carb consistent diet. Avoid salts, or foods with hidden salts such as canned or boxed foods and frozen dinners. Extra salt makes your heart work harder and traps the fluid in your body for longer. 1500 mL fluid restriction Special Instructions: Take all of your medications as directed and remember to keep all of your do ctor's appointments and follow-up as needed. Please have a repeat urine done in [address] Lozano, as you had a small amount of blood in your urine on testing. Please continue to HOLD ELIQUIS until your repeat hemoglobin in 1 week and outpatient follow up with Dr. Son, General Surgeon. This was discussed in depth with your clinical specialist, Dr. Chandra and Eliquis to be held and if normal Hgb may resume after follow up and clearance by General Surgery. Hemoglobin A1c was 5.4%. Patient was found to have episode of hypoglycemia upon arrival to the hospital. Lantus discontinued. Please continue to monitor blood glucose levels 4 times daily with meals and at bedtime. If patient is noted to have elevated blood glucose levels may need to resume previously prescribed Lantus at a lower dose based upon recommendations from your PCP, Dr. Lozano. Weigh yourself every morning after you urinate. If you gain 3 pounds overnight or more than 5 pounds in one week, call your primary physician and clinical specialist for guidance on your medications or they may want to see you in their office. Keep a daily log of your weights and be sure to bring with you at follow up visits with your PCP (Dr. Lozano) and clinical specialist (Dr. Chandra). Take all of your medications as directed, especially your water pills. NEVER skip a dose. And remember to keep all of your doctor's appointments and follow- up as needed. Elevate your legs when you are not up moving around to help with circulation and prevent swelling. Compression stockings are also a great way to improve lower extremity circulation and prevent/improve lower extremity edema. Call your primary care provider and clinical specialist if you notice any extra swelling in your legs, ankles, feet or abdomen, if you have a new dry cough, if your shortness of breath worsens with activity or at rest, or if you feel more fatigued. Thank you for allowing us to participate in your care, it was truly a pleasure having you for our patient!!! Discharge Disposition: TRANSFER TO SNF/ECF
[2022-12-07 12:03] LABS: Glucose,Whole Blood 173 mg/dL (70-110)
--- NOTE | 2022-12-07 12:32 | P.PN ---
Subjective Progress Note Date: 12/07/22 CHIEF COMPLAINT: Anemia HISTORY OF PRESENT ILLNESS: Patient is status post EGD revealing antral gastritis and esophagitis. There is no evidence of any active bleeding. Patient did have a dark black stool. She is having flatus. Denies any abdominal pain. She is tolerating diet. Hemoglobin stable at 8.3 PHYSICAL EXAM: VITAL SIGNS: Reviewed. ABDOMEN: Soft. Nondistended. Nontender. ASSESSMENT: 1. Antral gastritis and esophagitis 2. Anemia PLAN: -Patient can be discharged from surgical standpoint -Recommend outpatient colonoscopy -Continue Protonix -Continue to hold Eliquis [facility] Former note has been reviewed by physician. Signing provider agrees with the documented findings, assessment, and plan of care. Objective - Vital Signs Vital signs: Vital Signs Temp 98.1 F 12/06/22 20:00 Pulse 60 12/07/22 08:00 Resp 16 12/07/22 08:00 BP 98/55 12/07/22 08:00 Pulse Ox 97 12/07/22 09:47 FiO2 Intake & Output 12/06/22 12/07/22 12/07/22 18:59 06:59 18:59 Intake Total 580 118 Balance 580 118 Weight 87 kg 85.5 kg Intake: IV 100 Oral 480 118 Other: Voiding Method Bedside Commode Bedside Commode Bedpan Bedpan # Voids 1 - Labs CBC & Chem 7: 12/07/22 07:36 12/06/22 08:56 Labs: Abnormal Lab Results - Last 24 Hours (Table) 12/06/22 12/06/22 12/07/22 Range/Units 16:43 20:50 06:22 RBC (3.80-5.40) m/uL Hgb (11.4-16.0) gm/dL Hct (34.0-46.0) % RDW (11.5-15.5) % POC Glucose (mg/dL) 177 H 144 H 129 H (70-110) mg/dL 12/07/22 12/07/22 Range/Units 07:36 12:00 RBC 2.77 L (3.80-5.40) m/uL Hgb 8.3 L (11.4-16.0) gm/dL Hct 26.1 L (34.0-46.0) % RDW 21.4 H (11.5-15.5) % POC Glucose (mg/dL) 173 H (70-110) mg/dL
--- NOTE | 2022-12-07 12:37 | P.PN ---
Subjective Patient seen in follow-up for acute kidney injury. Renal function improved. Admits to good urine output. No active bleeding. Hemoglobin 8.3 today. Denies chest pain or shortness of breath. Vital signs are stable. General: No acute distress. HEENT: Head exam is unremarkable. LUNGS: No audible rhonchi or wheezes. HEART: Rate and Rhythm are regular. ABDOMEN: Nontender. EXTREMITITES: Trace edema. Objective - Vital Signs Vital signs: Vital Signs Temp 98.1 F 12/06/22 20:00 Pulse 60 12/07/22 08:00 Resp 16 12/07/22 08:00 BP 98/55 12/07/22 08:00 Pulse Ox 97 12/07/22 09:47 FiO2 Intake & Output 12/06/22 12/07/22 12/07/22 18:59 06:59 18:59 Intake Total 580 118 Balance 580 118 Weight 87 kg 85.5 kg Intake: IV 100 Oral 480 118 Other: Voiding Method Bedside Commode Bedside Commode Bedpan Bedpan # Voids 1 - Labs CBC & Chem 7: 12/07/22 07:36 12/06/22 08:56 Labs: Abnormal Lab Results - Last 24 Hours (Table) 12/06/22 12/06/22 12/07/22 Range/Units 16:43 20:50 06:22 RBC (3.80-5.40) m/uL Hgb (11.4-16.0) gm/dL Hct (34.0-46.0) % RDW (11.5-15.5) % POC Glucose (mg/dL) 177 H 144 H 129 H (70-110) mg/dL 12/07/22 12/07/22 Range/Units 07:36 12:00 RBC 2.77 L (3.80-5.40) m/uL Hgb 8.3 L (11.4-16.0) gm/dL Hct 26.1 L (34.0-46.0) % RDW 21.4 H (11.5-15.5) % POC Glucose (mg/dL) 173 H (70-110) mg/dL Assessment and Plan Plan: Assessment: 1. Acute kidney injury secondary to ATN secondary to cardiorenal syndrome. No hydronephrosis noted on kidney ultrasound. Renal function improved. 2. Volume overload. Improved with diuresis. 3. Acute on chronic diastolic CHF. 4. Proteus UTI s/p antibiotics. 5. Coronary disease status post CABG. 6. Benign hypertension. Blood pressure on the lower side. 7. Hypomagnesemia from diuresis. Replaced. Improved. 8. Acute blood loss anemia status post blood transfusion this admission. Surgery following. EGD showed antral gastritis and esophagitis. 9. Hypokalemia from diuresis. Replaced. Plan: Maintain Lasix. Low-salt diet and 1500 mL fluid restriction. Continue to monitor renal function and urine output. Follow up outpatient 1 week post discharge.
[2022-12-07 13:04] VITALS: BP 103/45
== END 2022-12-07 13:06 | DRG 291 ==
LOC: EC 14:46 → 3SCARD 17:46
PROVIDERS: ADMIT Internal Medicine; ATTEND Internal Medicine
PROC: 30233N1 Transfusion of Nonautologous Red Blood Cells into Peripheral Vein, Percutaneous Approach (ICD-10-PCS; 2022-12-05)
PROC: 0DB38ZX Excision of Lower Esophagus, Via Natural or Artificial Opening Endoscopic, Diagnostic (ICD-10-PCS; principal; 2022-12-06 09:20)
PROC: 0DB78ZX Excision of Stomach, Pylorus, Via Natural or Artificial Opening Endoscopic, Diagnostic (ICD-10-PCS; principal; 2022-12-06 09:20)
DX: I13.0 Hypertensive heart and chronic kidney disease with heart failure and stage 1 through stage 4 chronic kidney disease, or unspecified chronic kidney disease (principal); I50.33 Acute on chronic diastolic (congestive) heart failure; J96.21 Acute and chronic respiratory failure with hypoxia; N17.0 Acute kidney failure with tubular necrosis; K29.71 Gastritis, unspecified, with bleeding; K21.01 Gastro-esophageal reflux disease with esophagitis, with bleeding; N39.0 Urinary tract infection, site not specified; D62 Acute posthemorrhagic anemia; J44.1 Chronic obstructive pulmonary disease with (acute) exacerbation; N18.9 Chronic kidney disease, unspecified; E11.22 Type 2 diabetes mellitus with diabetic chronic kidney disease; Z20.822 Contact with and (suspected) exposure to COVID-19; R79.1 Abnormal coagulation profile; B96.4 Proteus (mirabilis) (morganii) as the cause of diseases classified elsewhere; I25.10 Atherosclerotic heart disease of native coronary artery without angina pectoris; E83.42 Hypomagnesemia; E87.6 Hypokalemia; T50.2X5A Adverse effect of carbonic-anhydrase inhibitors, benzothiadiazides and other diuretics, initial encounter; I48.0 Paroxysmal atrial fibrillation; I45.10 Unspecified right bundle-branch block; I27.20 Pulmonary hypertension, unspecified; G14 Postpolio syndrome; E11.40 Type 2 diabetes mellitus with diabetic neuropathy, unspecified; E78.5 Hyperlipidemia, unspecified; F41.9 Anxiety disorder, unspecified; F32.A Depression, unspecified; R74.01 Elevation of levels of liver transaminase levels; R19.7 Diarrhea, unspecified; D63.1 Anemia in chronic kidney disease; E87.8 Other disorders of electrolyte and fluid balance, not elsewhere classified; R00.1 Bradycardia, unspecified; E87.5 Hyperkalemia; E11.649 Type 2 diabetes mellitus with hypoglycemia without coma; Z87.891 Personal history of nicotine dependence; Z79.4 Long term (current) use of insulin; Z99.81 Dependence on supplemental oxygen; Z95.1 Presence of aortocoronary bypass graft; Z79.899 Other long term (current) drug therapy; Z79.811 Long term (current) use of aromatase inhibitors; Z79.51 Long term (current) use of inhaled steroids; Z79.01 Long term (current) use of anticoagulants; Z88.5 Allergy status to narcotic agent; Z88.0 Allergy status to penicillin; Z88.1 Allergy status to other antibiotic agents; Z88.2 Allergy status to sulfonamides
CPT/HCPCS: 36415; 43239; 71045; 71046; 74022; 74176; 76770; 80048; 80053; 81001; 83036; 83605; 83735; 83880; 84484; 85025; 85027; 85610; 85730; 86850; 86900; 86901; 86920; 87077; 87086; 87186; 87636; 88305; 93005; 94640; 94760; 96374; 99285

== ENCOUNTER 2022-12-27 12:24 | Day surgery (SDC) | payer OTHER ==
[~2022-12-27 12:24] MED LIST changes: -HEPARIN SODIUM,PORCINE/PF 5,000 UNIT/0.5 ML SYRINGE SQ PRN; +LACTATED RINGERS 1,000 ML IV SCH; +LIDOCAINE 1% (10MG/ML) FOR IV START INTRADERMA PRN; -Pre Op ABX Message 1 EACH MISC MISCELLANE ONE
[2022-12-27 13:07] LABS: Glucose,Whole Blood 110 mg/dL (70-110)
[2022-12-27 13:10] VITALS: TEMP 97
[2022-12-27] MEDS ORDERED: PROPOFOL 10 MG/ML 20 ML VIAL IV ONE (14:47)
--- NOTE | 2022-12-27 15:06 | P.OP ---
Date of Procedure: 12/27/22 Preoperative Diagnosis: Anemia Postoperative Diagnosis: Severe diverticulosis Procedure(s) Performed: Colonoscopy Anesthesia: MAC Surgeon: Jaskaran Son Pathology: none sent Condition: stable Disposition: PACU Description of Procedure: Patient's placed on the endoscopy table in the lateral position. She received IV sedation. Digital rectal exam revealed a few external hemorrhoids. Possible colonoscope was then placed patient anus and passed throughout the entire colon. Ileocecal valve was visualized. The cecum, ascending and transverse colon appeared normal except for a few scattered diverticula. In the descending; there is extensive diverticular changes. The scope was then brought back the rectum this appeared normal. Scope withdrawn for patient. Presumed patient may have had bleeding from hemorrhoids.
[2022-12-27 16:14] VITALS: BP 106/61; PULSE 76; RESP 18
== END 2022-12-27 16:15 | disposition home or self-care (01) ==
LOC: ORWHC2ENDO 12:24
PROVIDERS: ATTEND Surgery
DX: K57.30 Diverticulosis of large intestine without perforation or abscess without bleeding (principal); K64.4 Residual hemorrhoidal skin tags; D64.9 Anemia, unspecified; K21.9 Gastro-esophageal reflux disease without esophagitis; I10 Essential (primary) hypertension; I50.9 Heart failure, unspecified; I25.10 Atherosclerotic heart disease of native coronary artery without angina pectoris; I48.91 Unspecified atrial fibrillation; E11.9 Type 2 diabetes mellitus without complications; E78.5 Hyperlipidemia, unspecified; J44.9 Chronic obstructive pulmonary disease, unspecified; Z88.2 Allergy status to sulfonamides; Z95.5 Presence of coronary angioplasty implant and graft; Z88.5 Allergy status to narcotic agent; Z79.899 Other long term (current) drug therapy; Z88.0 Allergy status to penicillin; Z88.1 Allergy status to other antibiotic agents; Z79.811 Long term (current) use of aromatase inhibitors; Z87.891 Personal history of nicotine dependence; Z79.01 Long term (current) use of anticoagulants; Z99.81 Dependence on supplemental oxygen
CPT/HCPCS: 45378; J2704

== ENCOUNTER 2023-01-14 08:54 | Inpatient (IN) | payer MEDICARE, OTHER ==
[2023-01-14 09:37] LABS: Anisocytosis Slight; Basophils % (A) 0 %; Eosinophils # (A) 0.2 k/uL (0-0.7); Eosinophils % (A) 2 %; HCT 29.8 % (34.0-46.0); HGB 9.2 gm/dL (11.4-16.0); Hypochromasia Moderate; Lymphocytes # (A) 0.9 k/uL (1.0-4.8); Lymphocytes % (A) 11 %; MCH 28.6 pg (25.0-35.0); MCV 92.2 fL (80.0-100.0); Mean Platelet Volume 9.7; Monocytes # (A) 0.6 k/uL (0-1.0); Monocytes % (A) 7 %; Neutrophils # (A) 6.1 k/uL (1.3-7.7); Neutrophils % (A) 77 %; Platelet Count 209 k/uL (150-450); RBC 3.23 m/uL (3.80-5.40); WBC 7.9 k/uL (3.8-10.6)
[2023-01-14 09:48] LABS: ALT 34 U/L (4-34); African American GFR (CKD) 56 (>60 ml/min/1.73 sqM); Anion Gap 10 mmol/L; Blood Urea Nitrogen 58 mg/dL (7-17); Calcium 8.6 mg/dL (8.4-10.2); Carbon Dioxide 25 mmol/L (22-30); Chloride 100 mmol/L (98-107); Glucose 136 mg/dL (74-99); Non-African American GFR(CKD) 48 (>60 ml/min/1.73 sqM); Sodium 135 mmol/L (137-145); Total Bilirubin 0.6 mg/dL (0.2-1.3); Total Protein 6.2 g/dL (6.3-8.2)
[2023-01-14 09:56] LABS: NT-Pro-B-Type Natriuretic Pept 1030 pg/mL
--- NOTE | 2023-01-14 09:57 | ED ---
General Adult HPI - General Chief complaint: Weakness Stated complaint: General Weakness Time Seen by Provider: 01/14/23 09:00 Source: patient, EMS, RN notes reviewed, old records reviewed Mode of arrival: EMS - History of Present Illness Initial comments: 67-year-old female with progressive weakness over the past 2 days. Patient has been receiving outpatient physical therapy and rehabilitation without significant improvement. She has history of CHF and COPD. She has history of chronic right leg weakness. She denies any pain complaints. Denies fever. She had one episode of vomiting. - Related Data Home Medications Medication Instructions Recorded Confirmed Atorvastatin [Lipitor] 40 mg PO HS 03/23/16 12/27/22 DULoxetine HCL [Cymbalta] 60 mg PO QAM 03/23/16 12/27/22 Metoprolol Tartrate [Lopressor] 50 mg PO BID 03/23/16 12/27/22 Montelukast [Singulair] 10 mg PO QAM 05/18/21 12/27/22 Gabapentin 600 mg PO TID 06/29/21 12/27/22 Budesonide-Formot 160-4.5 Mcg 2 puff INHALATION RT-BID 04/06/22 12/27/22 [Symbicort 160-4.5 Mcg Inhaler] Biotin [Biotin Disolve] 10,000 mcg PO QAM 09/03/22 12/27/22 Letrozole [Femara] 2.5 mg PO QAM 09/03/22 12/27/22 Apixaban [Eliquis] 5 mg PO BID 09/06/22 12/27/22 Cholecalciferol [Vitamin D3 (125 125 mcg PO QAM 09/06/22 12/27/22 Mcg = 5000 Iu)] Cyanocobalamin (Vitamin B-12) 2,000 mcg PO QAM 09/06/22 12/27/22 [Vitamin B-12] Albuterol Inhaler [Ventolin Hfa 2 puff INHALATION RT-QID PRN 11/10/22 12/27/22 Inhaler] Amiodarone [Cordarone] 200 mg PO BID 11/10/22 12/27/22 Lactobacillus Acidophilus 1 cap PO QAM 11/29/22 12/27/22 [Acidophilus Probiotic] Ubidecarenone [Coenzyme Q10] 200 mg PO QAM 11/29/22 12/27/22 Ascorbic Acid [Vitamin C] 250 mg PO QAM 12/23/22 12/27/22 Previous Rx's Medication Instructions Recorded Ferrous Sulfate [Iron (65 MG 325 mg PO W/LUNCH #60 tab 09/09/22 Elemental)] Ondansetron Odt [Zofran ODT] 4 mg PO Q8HR PRN #30 tab 11/11/22 Furosemide [Lasix] 40 mg PO BID@0900,1600 #60 tab 11/22/22 Acetaminophen Tab [Tylenol] 650 mg PO Q6HR PRN tab 12/07/22 HYDROcodone/APAP 10-325MG [[place] 1 tab PO Q6H PRN #9 tab 12/07/22 10-325] Pantoprazole [Protonix] 40 mg PO BID tab 12/07/22 Simethicone Chew [Mylicon Chew] 80 mg PO QID PRN tab 12/07/22 Allergies Allergy/AdvReac Type Severity Reaction Status Date / Time morphine Allergy rash,itchin Verified 01/14/23 08:59 g Sulfa (Sulfonamide Allergy Rash/Hives Verified 01/14/23 08:59 Antibiotics) amoxicillin [From Augmentin] AdvReac Diarrhea Verified 01/14/23 08:59 clavulanic acid AdvReac Diarrhea Verified 01/14/23 08:59 [From Augmentin] surgical susy AdvReac infection Uncoded 01/14/23 08:59 Review of Systems ROS Statement: Those systems with pertinent positive or pertinent negative responses have been documented in the HPI. ROS Other: All systems not noted in ROS Statement are negative. Past Medical History Past Medical History: Atrial Fibrillation, Coronary Artery Disease (CAD), Cancer, Heart Failure, COPD, Diabetes Mellitus, GERD/Reflux, Hyperlipidemia, Hypertension Additional Past Medical History / Comment(s): Pt recently admitted to [facility] with acute blood loss anemia/EGD showed mild gastritis per pt. Pt recently admitted to [facility] on 11/29/22 with acute on chronic chf, moderate pulmonary HTN, acute kidney injury, paroxysmal afib, acute blood loss anemia. Other hx: post polio syndrome rt side, neuropathy, hx. spontaneous pneumothorax after cabg, home oxygen at 4L/NC ATC, now NIDDM, chronic transaminitis, bowel resection for sepsis/infection, R breast cancer with lumpectomy only. History of Any Multi-Drug Resistant Organisms: ESBL Date of last positivie culture/infection: 06/29/21 MDRO Source:: ESBL BACK Past Surgical History: Back Surgery, Bowel Resection, Breast Surgery, Cholecystectomy, Coronary Bypass/CABG, Ear Surgery, Heart Catheterization, Tonsillectomy Additional Past Surgical History / Comment(s): triple bypass 2013, left salpingo-oophorectomy, R breast lumpectomy, 2 back surgeries with post op infection with I&D, ear surgery x 3/due to bleeding L eardrum. Past Anesthesia/Blood Transfusion Reactions: No Reported Reaction Past Psychological History: Anxiety, Depression Smoking Status: Former smoker - Past Family History Mother Family Medical History: Cancer General Exam General appearance: alert, in no apparent distress Head exam: Present: atraumatic, normocephalic Eye exam: Present: normal appearance, PERRL ENT exam: Present: mucous membranes dry Neck exam: Present: normal inspection. Absent: tenderness, meningismus Respiratory exam: Present: normal lung sounds bilaterally. Absent: respiratory distress, wheezes Cardiovascular Exam: Present: regular rate, normal rhythm GI/Abdominal exam: Absent: soft, distended, tenderness, guarding Extremities exam: Present: normal inspection, normal capillary refill Neurological exam: Present: alert, oriented X3, CN II-XII intact, motor sensory deficit (Right leg weakness) Psychiatric exam: Present: normal affect, normal mood Skin exam: Present: warm, dry, intact. Absent: cyanosis, diaphoretic Course Vital Signs 01/14/23 01/14/23 01/14/23 08:56 09:13 09:20 Temperature 98.6 F Pulse Rate 60 60 60 Respiratory 20 16 18 Rate Blood Pressure 106/93 105/44 O2 Sat by Pulse 98 Oximetry 01/14/23 01/14/23 09:30 09:40 Temperature Pulse Rate 62 61 Respiratory 18 17 Rate Blood Pressure 103/59 O2 Sat by Pulse Oximetry Medical Decision Making - Medical Decision Making Was pt. sent in by a medical professional or institution (, PA, [employer], urgent care, hospital, or halfway...) When possible be specific @ -No Did you speak to anyone other than the patient for history (EMS, parent, family, police, friend...)? What history was obtained from this source @ -No Did you review nursing and triage notes (agree or disagree)? Why? @ -I reviewed and agree with nursing and triage notes Were old charts reviewed (outside hosp., previous admission, EMS record, old EKG, old radiological studies, urgent care reports/EKG's, halfway records)? Report findings @ -No old charts were reviewed Differential Diagnosis (chest pain, altered mental status, abdominal pain women, abdominal pain men, vaginal bleeding, weakness, fever, dyspnea, syncope, headache, dizziness, GI bleed, back pain, seizure, CVA, palpatations, mental health, musculoskeletal)? @ -[Differential Weakness: Hypoglycemia, shock, sepsis, hyponatremia, anemia, infection, [place], ETOH, adverse medicine reaction, overdose, stroke, this is not meant to be an all-inclusive list. EKG interpreted by me (3pts min.). @ EKG: Wide complex rate of 60, HI interval 180, QRS duration 172, QTC 557, right bundle branch block, similar QRS morphology compared to previous EKGs. X-rays interpreted by me (1pt min.). @ No focal pneumonia no pneumothorax CT interpreted by me (1pt min.). @ -None done U/S interpreted by me (1pt. min.). @ -None done What testing was considered but not performed or refused? (CT, X-rays, U/S, labs)? Why? @ -None What meds were considered but not given or refused? Why? @ -None Did you discuss the management of the patient with other professionals (professionals i.e. , PA, [employer], lab, RT, psych nurse, social media executive, director executive communications, teacher, air defense control officer, case making machine operator)? Give summary @ -Dr. Eldridge Was smoking cessation discussed for >3mins.? @ -No Was critical care preformed (if so, how long)? @ -No Were there social determinants of health that impacted care today? How? (Homelessness, low income, unemployed, alcoholism, drug addiction, transportation, low edu. Level, literacy, decrease access to med. care, alf, rehab)? @ -No Was there de-escalation of care discussed even if they declined (Discuss DNR or withdrawal of care, Hospice)? DNR status @ -No What co-morbidities impacted this encounter? (DM, HTN, Smoking, COPD, CAD, Cancer, CVA, ARF, Chemo, Hep., AIDS, mental health diagnosis, sleep apnea, morbid obesity)? @ -None Was patient admitted / discharged? Hospital course, mention meds given and route, prescriptions, significant lab abnormalities, going to OR and other pertinent info. @ 67-year-old female with progressive weakness over the past several weeks. Patient does have focal weakness in the right leg which she states is chronic. She also has oxygen dependent COPD and CHF. No fever. Vital signs are stable. She has chronic anemia which is stable from baseline. Normal electrolytes. Urinalysis is pending. Patient will be admitted for generalized weakness, difficulty ambulating. Undiagnosed new problem with uncertain prognosis? @ -No Drug Therapy requiring intensive monitoring for toxicity (Heparin, Nitro, Insulin, Cardizem)? @ -No Were any procedures done? @ -No Diagnosis/symptom? @ -[Generalized weakness, difficulty ambulating Acute, or Chronic, or Acute on Chronic? @ -[Acute on chronic Uncomplicated (without systemic symptoms) or Complicated (systemic symptoms)? @ -default Side effects of treatment? @ -No Exacerbation, Progression, or Severe Exacerbation? @ -No Poses a threat to life or bodily function? How? (Chest pain, [place], [place], pneumonia, PE, COPD, DKA, ARF, appy, cholecystitis, CVA, Diverticulitis, Homicidal, Suicidal, threat to staff... and all critical care pts) @ -No - Lab Data Result diagrams: 01/14/23 09:24 01/14/23 09:24 Lab Results 01/14/23 01/14/23 01/14/23 Range/Units 09:24 09:24 09:24 WBC 7.9 (3.8-10.6) k/uL RBC 3.23 L (3.80-5.40) m/uL Hgb 9.2 L (11.4-16.0) gm/dL Hct 29.8 L (34.0-46.0) % MCV 92.2 (80.0-100.0) fL MCH 28.6 (25.0-35.0) pg MCHC 31.0 (31.0-37.0) g/dL RDW 18.0 H (11.5-15.5) % Plt Count 209 (150-450) k/uL MPV 9.7 Neutrophils % 77 % Lymphocytes % 11 % Monocytes % 7 % Eosinophils % 2 % Basophils % 0 % Neutrophils # 6.1 (1.3-7.7) k/uL Lymphocytes # 0.9 L (1.0-4.8) k/uL Monocytes # 0.6 (0-1.0) k/uL Eosinophils # 0.2 (0-0.7) k/uL Basophils # 0.0 (0-0.2) k/uL Hypochromasia Moderate Anisocytosis Slight PT 13.0 H (9.0-12.0) sec INR 1.3 H (<1.2) APTT 27.6 (22.0-30.0) sec Sodium 135 L (137-145) mmol/L Potassium 3.6 (3.5-5.1) mmol/L Chloride 100 (98-107) mmol/L Carbon Dioxide 25 (22-30) mmol/L Anion Gap 10 mmol/L BUN 58 H (7-17) mg/dL Creatinine 1.16 H (0.52-1.04) mg/dL Est GFR (CKD-EPI)AfAm 56 (>60 ml/min/1.73 sqM) Est GFR (CKD-EPI)NonAf 48 (>60 ml/min/1.73 sqM) Glucose 136 H (74-99) mg/dL Lactic Ac Sepsis Rflx Plasma Lactic Acid [place] (0.7-2.0) mmol/L Calcium 8.6 (8.4-10.2) mg/dL Total Bilirubin 0.6 (0.2-1.3) mg/dL AST 97 H (14-36) U/L ALT 34 (4-34) U/L Alkaline Phosphatase 95 (38-126) U/L Troponin I (0.000-0.034) ng/mL NT-Pro-B Natriuret Pep 1030 pg/mL Total Protein 6.2 L (6.3-8.2) g/dL Albumin 3.0 L (3.5-5.0) g/dL 01/14/23 01/14/23 01/14/23 Range/Units 09:24 09:24 10:18 WBC (3.8-10.6) k/uL RBC (3.80-5.40) m/uL Hgb (11.4-16.0) gm/dL Hct (34.0-46.0) % MCV (80.0-100.0) fL MCH (25.0-35.0) pg MCHC (31.0-37.0) g/dL RDW (11.5-15.5) % Plt Count (150-450) k/uL MPV Neutrophils % % Lymphocytes % % Monocytes % % Eosinophils % % Basophils % % Neutrophils # (1.3-7.7) k/uL Lymphocytes # (1.0-4.8) k/uL Monocytes # (0-1.0) k/uL Eosinophils # (0-0.7) k/uL Basophils # (0-0.2) k/uL Hypochromasia Anisocytosis PT (9.0-12.0) sec INR (<1.2) APTT (22.0-30.0) sec Sodium (137-145) mmol/L Potassium (3.5-5.1) mmol/L Chloride (98-107) mmol/L Carbon Dioxide (22-30) mmol/L Anion Gap mmol/L BUN (7-17) mg/dL Creatinine (0.52-1.04) mg/dL Est GFR (CKD-EPI)AfAm (>60 ml/min/1.73 sqM) Est GFR (CKD-EPI)NonAf (>60 ml/min/1.73 sqM) Glucose (74-99) mg/dL Lactic Ac Sepsis Rflx Y Plasma Lactic Acid [place] 2.1 H* (0.7-2.0) mmol/L Calcium (8.4-10.2) mg/dL Total Bilirubin (0.2-1.3) mg/dL AST (14-36) U/L ALT (4-34) U/L Alkaline Phosphatase (38-126) U/L Troponin I <0.012 (0.000-0.034) ng/mL NT-Pro-B Natriuret Pep pg/mL Total Protein (6.3-8.2) g/dL Albumin (3.5-5.0) g/dL Disposition Clinical Impression: Right leg weakness, Generalized weakness, Difficulty walking Disposition: ADMITTED IP TO THIS [facility] Condition: Stable Is patient prescribed a controlled substance at d/c from ED?: No Referrals: Teja Lozano MD [Primary Care Provider] - 1-2 days Time of Disposition: 12:25
[2023-01-14 09:58] LABS: INR 1.3 (<1.2); Partial Thromboplastin Time 27.6 sec (22.0-30.0)
[2023-01-14 10:16] LABS: AST 97 U/L (14-36); Alkaline Phosphatase 95 U/L (38-126); Potassium 3.6 mmol/L (3.5-5.1)
--- NOTE | 2023-01-14 10:54 | XR ---
EXAMINATION TYPE: XR chest 2V DATE OF EXAM: 01/14/2023 COMPARISON: 12/02/2022 and 01/12/2023 HISTORY: 67-year-old female with weakness TECHNIQUE: Frontal and lateral views FINDINGS: Spinal stimulator array centered along the mid thoracic spinal canal. Median sternotomy wires and pos t-CABG clips. Heart upper limits of normal size. Diffuse interstitial and patchy opacities persists p articularly in the periphery and lower lungs. Possible trace effusions on the lateral view. IMPRESSION: Slight increase in diffuse interstitial opacity and mild patchy peripheral and basilar densities. Pos sible trace effusions. Correlate to exclude mild CHF.
[2023-01-14] MEDS ORDERED: NALOXONE 0.4 MG/ML 1 ML VIAL IV PRN (12:21)
[2023-01-14] MEDS ORDERED: ACETAMINOPHEN TAB 325 MG TAB PO PRN ×2 (12:21→16:52)
[2023-01-14] MEDS ORDERED: SIMETHICONE 80 MG CHEWABLE PO PRN (16:52)
[2023-01-14] MEDS ORDERED: ALBUTEROL HFA INHALER INHALATION PRN (16:52)
--- NOTE | 2023-01-14 18:02 | P.HPIM ---
History of Present Illness H&P Date: 01/14/23 Patient is a 67-year-old female with history of A. fib and COPD on 2-3 L around the clock, A. fib on Eliquis, CAD status post CABG, hypertension, dyslipidemia, insulin-dependent diabetes, history of polio with right-sided neuropathy/deficits presenting with worsening right-sided weakness. She claims that ever since she came out of rehab facility, she has been getting progressively worse to the point where she needs assistance to get out of the bed. She claims that her right-sided weakness also appears worse however, she is overall weaker. She denies any fevers, chills, chest pain, worsening shortness of breath, abdominal pain, nausea, vomiting, urinary or bowel complaints. In the ED, temperature is 98.6, pulse 60, respiratory rate 20, blood pressure 106/93, saturating at 98% on 4 L. WBC 7.9, hemoglobin 9.2 from baseline, sodium 135, creatinine 1.16 around baseline, lactate 2.1 improved to 1.3, AST 97, chronically elevated, negative troponin. EKG shows sinus rhythm with right bundle branch block. Chest x-ray shows slightly worsening interstitial opacities. Patient admitted for progressive weakness, debility, difficulty ambulating. Pertinent positives and negatives as discussed in HPI, a complete review of systems was performed and all other systems are negative. Patient seen and examined at bedside. Vital signs reviewed General: nontoxic, no distress, appears at stated age Derm: warm, dry Head: atraumatic, normocephalic, symmetric Eyes: EOMI, no lid lag, anicteric sclera, pupils equal round reactive to light ENT: Nose and ears atraumatic Neck: No thyromegaly, supple Mouth: no lip lesion, mucus membranes moist Cardiovascular: S1S2 reg, no murmur, no edema Lungs: clear to auscultation bilateral, no rhonchi, no rales, no wheeze, no accessory muscle use Abdominal: soft, nontender to palpation, no guarding, no appreciable organomegaly Ext: 3/5 strength on the right Neuro: CN II-XII grossly intact Psych: Alert, oriented, appropriate affect Assessment/Plan: Active: Progressive weakness History of right leg weakness secondary to polio Debility Lactic acidosis, resolved -She has overall weakness, more pronounced on the right due to prior history of right-sided weakness, less concern for stroke at the moment -No facial asymmetry -PT/OT -Likely need placement -I will speak with his PCP tomorrow for further hx Chronic: COPD on 2-3 L oxygen Atrial fibrillation CAD status post CABG Hypertension Dyslipidemia Insulin-dependent diabetes Chronic normocytic anemia The patient is admitted with an anticipated greater than 2 midnight stay as observation status for evaluation of generalized weakness. Surrogate decision-maker: Son CODE STATUS: Full code DVT prophylaxis: Eliquis Anticipated discharge date: Pending clinical course Anticipated discharge place: Pending clinical course A total of 65 minutes was spent on the care of this complex patient more than 50% of the time was spent in counseling and care coordination. Past Medical History Past Medical History: Atrial Fibrillation, Coronary Artery Disease (CAD), Cancer, Heart Failure, COPD, Diabetes Mellitus, GERD/Reflux, Hyperlipidemia, Hypertension Additional Past Medical History / Comment(s): Pt recently admitted to [facility] with acute blood loss anemia/EGD showed mild gastritis per pt. Pt recently admitted to [facility] on 11/29/22 with acute on chronic chf, moderate pulmonary HTN, acute kidney injury, paroxysmal afib, acute blood loss anemia. Other hx: post polio syndrome rt side, neuropathy, hx. spontaneous pneumothorax after cabg, home oxygen at 4L/NC ATC, now NIDDM, chronic transaminitis, bowel resection for sepsis/infection, R breast cancer with lumpectomy only. History of Any Multi-Drug Resistant Organisms: ESBL Date of last positivie culture/infection: 06/29/21 MDRO Source:: ESBL BACK Past Surgical History: Back Surgery, Bowel Resection, Breast Surgery, Cholecystectomy, Coronary Bypass/CABG, Ear Surgery, Heart Catheterization, Tonsillectomy Additional Past Surgical History / Comment(s): triple bypass 2014, left salpingo-oophorectomy, R breast lumpectomy, 2 back surgeries with post op infection with I&D, ear surgery x 3/due to bleeding L eardrum. Past Anesthesia/Blood Transfusion Reactions: No Reported Reaction Past Psychological History: Anxiety, Depression Smoking Status: Former smoker - Past Family History Mother Family Medical History: Cancer Medications and Allergies Home Medications Medication Instructions Recorded Confirmed Type Atorvastatin [Lipitor] 40 mg PO HS 03/23/16 01/14/23 History DULoxetine HCL [Cymbalta] 60 mg PO QAM 03/23/16 01/14/23 History Metoprolol Tartrate [Lopressor] 50 mg PO BID 03/23/16 01/14/23 History Montelukast [Singulair] 10 mg PO QAM 05/18/21 01/14/23 History Gabapentin 600 mg PO TID 06/29/21 01/14/23 History Budesonide-Formot 160-4.5 Mcg 2 puff INHALATION RT-BID 04/06/22 01/14/23 History [Symbicort 160-4.5 Mcg Inhaler] Biotin [Biotin Disolve] 10,000 mcg PO QAM 09/03/22 01/14/23 History Letrozole [Femara] 2.5 mg PO QAM 09/03/22 01/14/23 History Apixaban [Eliquis] 5 mg PO BID 09/06/22 01/14/23 History Cholecalciferol [Vitamin D3 (125 125 mcg PO QAM 09/06/22 01/14/23 History Mcg = 5000 Iu)] Cyanocobalamin (Vitamin B-12) 2,000 mcg PO QAM 09/06/22 01/14/23 History [Vitamin B-12] Ferrous Sulfate [Iron (65 MG 325 mg PO W/LUNCH #60 tab 09/09/22 01/14/23 Rx Elemental)] Albuterol Inhaler [Ventolin Hfa 2 puff INHALATION RT-QID PRN 11/10/22 01/14/23 History Inhaler] Amiodarone [Cordarone] 200 mg PO BID 11/10/22 01/14/23 History Ondansetron Odt [Zofran ODT] 4 mg PO Q8HR PRN #30 tab 11/11/22 01/14/23 Rx Furosemide [Lasix] 40 mg PO BID@0900,1600 #60 tab 11/22/22 01/14/23 Rx Lactobacillus Acidophilus 1 cap PO QAM 11/29/22 01/14/23 History [Acidophilus Probiotic] Ubidecarenone [Coenzyme Q10] 200 mg PO QAM 11/29/22 01/14/23 History Acetaminophen Tab [Tylenol] 650 mg PO Q6HR PRN tab 12/07/22 01/14/23 Rx Pantoprazole [Protonix] 40 mg PO BID tab 12/07/22 01/14/23 Rx Simethicone Chew [Mylicon Chew] 80 mg PO QID PRN tab 12/07/22 01/14/23 Rx Ascorbic Acid [Vitamin C] 250 mg PO DAILY 01/14/23 01/14/23 History Chlorhexidine Gluconate [Peridex] 15 ml PO BID 01/14/23 01/14/23 History HYDROcodone/APAP 10-325MG [[place] 1 tab PO Q6H 01/14/23 01/14/23 History 10-325] metOLazone [Zaroxolyn] 5 mg PO DAILY 01/14/23 01/14/23 History Allergies Allergy/AdvReac Type Severity Reaction Status Date / Time morphine Allergy rash,itchin Verified 01/14/23 12:31 g Sulfa (Sulfonamide Allergy Rash/Hives Verified 01/14/23 12:31 Antibiotics) amoxicillin [From Augmentin] AdvReac Diarrhea Verified 01/14/23 12:31 clavulanic acid AdvReac Diarrhea Verified 01/14/23 12:31 [From Augmentin] surgical susy AdvReac infection Uncoded 01/14/23 12:32 Physical Exam Vitals: Vital Signs Temp Pulse Resp BP Pulse Ox 01/14/23 13:20 61 20 107/43 99 01/14/23 13:10 61 19 98 01/14/23 13:00 62 17 97 01/14/23 12:50 63 18 96 01/14/23 12:40 62 17 100/43 97 01/14/23 12:30 61 16 101/44 98 01/14/23 12:20 63 17 94 L 01/14/23 12:10 62 17 101/44 95 01/14/23 12:00 62 18 96 01/14/23 11:50 63 16 95 01/14/23 11:40 62 17 116/46 100 01/14/23 11:30 63 17 96 01/14/23 11:20 62 18 96 01/14/23 11:10 62 16 106/46 01/14/23 11:00 62 17 01/14/23 10:50 61 16 01/14/23 10:40 63 22 01/14/23 10:30 61 18 01/14/23 10:20 62 18 01/14/23 10:10 60 16 01/14/23 09:50 62 22 01/14/23 09:40 61 17 103/59 01/14/23 09:30 62 18 01/14/23 09:20 60 18 01/14/23 09:13 60 16 105/44 01/14/23 08:56 98.6 F 60 20 106/93 98 Intake and Output 01/14/23 01/14/23 01/14/23 06:59 14:59 22:59 Other: Weight 87.09 kg Results CBC & Chem 7: 01/14/23 09:24 01/14/23 09:24 Labs: Abnormal Lab Results - Last 24 Hours (Table) 01/14/23 01/14/23 01/14/23 Range/Units 09:24 09:24 09:24 RBC 3.23 L (3.80-5.40) m/uL Hgb 9.2 L (11.4-16.0) gm/dL Hct 29.8 L (34.0-46.0) % RDW 18.0 H (11.5-15.5) % Lymphocytes # 0.9 L (1.0-4.8) k/uL PT 13.0 H (9.0-12.0) sec INR 1.3 H (<1.2) Sodium 135 L (137-145) mmol/L BUN 58 H (7-17) mg/dL Creatinine 1.16 H (0.52-1.04) mg/dL Glucose 136 H (74-99) mg/dL Plasma Lactic Acid West (0.7-2.0) mmol/L AST 97 H (14-36) U/L Total Protein 6.2 L (6.3-8.2) g/dL Albumin 3.0 L (3.5-5.0) g/dL 01/14/23 Range/Units 09:24 RBC (3.80-5.40) m/uL Hgb (11.4-16.0) gm/dL Hct (34.0-46.0) % RDW (11.5-15.5) % Lymphocytes # (1.0-4.8) k/uL PT (9.0-12.0) sec INR (<1.2) Sodium (137-145) mmol/L BUN (7-17) mg/dL Creatinine (0.52-1.04) mg/dL Glucose (74-99) mg/dL Plasma Lactic Acid [place] 2.1 H* (0.7-2.0) mmol/L AST (14-36) U/L Total Protein (6.3-8.2) g/dL Albumin (3.5-5.0) g/dL
[2023-01-14] MEDS: AMIODARONE 200 MG TAB PO SCH (20:21)
[2023-01-14] MEDS: GABAPENTIN 300 MG CAP PO SCH (20:21)
[2023-01-14] MEDS: ATORVASTATIN 40 MG TAB PO SCH (20:21)
[2023-01-14] MEDS: APIXABAN 5 MG TAB PO SCH (20:21)
[2023-01-14] MEDS: PANTOPRAZOLE 40 MG TABLET PO SCH (20:21)
[2023-01-14] MEDS: METOPROLOL TARTRATE 50 MG TAB PO SCH (20:22)
[2023-01-14 20:48] LABS: Appearance,Urine Cloudy (Clear); Bacteria,Urine Moderate /hpf; Bilirubin,Urine Negative (Negative); Blood,Urine Large (Negative); Color,Urine Light Yellow; Glucose,Urine (UA) Negative (Negative); Hyaline Casts,Urine 1 /lpf (0-2); Ketones,Urine Negative (Negative); Leukocyte Esterase,Urine Large (Negative); Nitrite,Urine Negative (Negative); Protein,Urine Negative (Negative); RBC,Urine 53 /hpf (0-5); Specific Gravity,Urine 1.009 (1.001-1.035); Urobilinogen,Urine <2.0 mg/dL (<2.0); WBC,Urine 28 /hpf (0-5)
[2023-01-14] MEDS: SYMBICORT 160-4.5 MCG INHALER INHALATION SCH (20:51)
[2023-01-14] MEDS: HYDROcodone/APAP 10-325MG 1 EACH TAB PO PRN (20:59)
[2023-01-15] MEDS: HYDROcodone/APAP 10-325MG 1 EACH TAB PO PRN ×2 (02:35→21:48)
[2023-01-15] MEDS: GABAPENTIN 300 MG CAP PO SCH ×3 (08:23→21:48)
[2023-01-15] MEDS: CYANOCOBALAMIN 500 MCG TAB PO SCH (08:24)
[2023-01-15] MEDS: FERROUS SULFATE 325 MG TAB PO SCH (08:24)
[2023-01-15] MEDS: FUROSEMIDE 40 MG TAB PO SCH ×2 (08:24→15:05)
[2023-01-15] MEDS: LETROZOLE 2.5 MG TAB PO SCH (08:24)
[2023-01-15] MEDS: MONTELUKAST 10 MG TAB PO SCH (08:24)
[2023-01-15] MEDS: metOLazone 5 MG TAB PO SCH (08:24)
[2023-01-15] MEDS: DULoxetine HCL 60 MG CAPSULE.DR PO SCH (08:24)
[2023-01-15] MEDS: APIXABAN 5 MG TAB PO SCH ×2 (08:24→21:48)
[2023-01-15] MEDS: METOPROLOL TARTRATE 50 MG TAB PO SCH ×2 (08:24→21:48)
[2023-01-15] MEDS: PANTOPRAZOLE 40 MG TABLET PO SCH ×2 (08:24→21:48)
[2023-01-15] MEDS: LACTOBACILLUS ACIDOPHILUS/PECT 1 EACH CAPSULE PO SCH (08:24)
[2023-01-15] MEDS: AMIODARONE 200 MG TAB PO SCH ×2 (08:24→21:50)
[2023-01-15] MEDS: ASCORBIC ACID 500 MG TAB PO SCH (08:24)
[2023-01-15] MEDS: CHOLECALCIFEROL 125 MCG (5000 IU) TABLET PO SCH (08:24)
[2023-01-15] MEDS: SYMBICORT 160-4.5 MCG INHALER INHALATION SCH ×2 (08:38→20:05)
[2023-01-15] MEDS: ONDANSETRON 4 MG TAB PO PRN (08:41)
[2023-01-15] MEDS ORDERED: NON FORMULARY DRUG (Ubidecarenone [Coenzyme Q10] 200 MG Capsule) PO SCH (09:00)
[2023-01-15] MEDS ORDERED: NON FORMULARY DRUG (Biotin [Biotin Disolve] 10,000 MCG Tablet) PO SCH (09:00)
--- NOTE | 2023-01-15 12:13 | P.PN ---
Subjective Progress Note Date: 01/15/23 Hospital Course: 67-year-old female with history of A. fib and COPD on 2-3 L around the clock, A. fib on Eliquis, CAD status post CABG, hypertension, dyslipidemia, insulin- dependent diabetes, history of polio with right-sided neuropathy/deficits presenting with worsening right-sided weakness and overall generalized weakness. In the ED, temperature is 98.6, pulse 60, respiratory rate 20, blood pressure 106/93, saturating at 98% on 4 L. WBC 7.9, hemoglobin 9.2 from baseline, sodium 135, creatinine 1.16 around baseline, lactate 2.1 improved to 1.3, AST 97, chronically elevated, negative troponin. EKG shows sinus rhythm with right bundle branch block. Chest x-ray shows slightly worsening interstitial opacities. Patient admitted for progressive weakness, debility, difficulty am bulating. Pending physical therapy evaluation and likely discharged to a rehab facility. Subjective: Patient seen and examined at bedside. No acute events overnight. Pertinent positives and negatives as discussed above, a complete review of systems was performed and all other systems are negative. Vitals Signs Reviewed. General: nontoxic, no distress, appears at stated age Derm: warm, dry Head: atraumatic, normocephalic, symmetric Eyes: EOMI, no lid lag, anicteric sclera, pupils equal round reactive to light ENT: Nose and ears atraumatic Neck: No thyromegaly, supple Mouth: no lip lesion, mucus membranes moist Cardiovascular: S1S2 reg, no murmur, no edema Lungs: clear to auscultation bilateral, no rhonchi, no rales, no wheeze, no accessory muscle use Abdominal: soft, nontender to palpation, no guarding, no appreciable organomegaly Ext: 3/5 strength on the right Neuro: CN II-XII grossly intact Psych: Alert, oriented, appropriate affect Data Reviewed Today: Pertinent Labs: No new labs Imaging: No new imaging Assessment and Plan: Active: Progressive weakness History of right leg weakness secondary to polio Debility Lactic acidosis, resolved -Spoke with PCP, no recent changes that could explain her generalized weakness. Patient was weaker when she came out of rehab facility 2 weeks ago, and has been persistently getting more motivated. -She has overall weakness, more pronounced on the right due to prior history of right-sided weakness, less concern for stroke at the moment -No facial asymmetry -PT/OT -Likely will need rehab placement Chronic: COPD on 2-3 L oxygen Atrial fibrillation CAD status post CABG Hypertension Dyslipidemia Insulin-dependent diabetes Chronic normocytic anemia DVT ppx: Eliquis Code status: Full code Anticipated discharge place: Subacute rehab Anticipated discharge time: Pending clinical course Objective - Vital Signs Vital signs: Vital Signs Temp 97.9 F 01/15/23 07:00 Pulse 56 L 01/15/23 07:00 Resp 18 01/15/23 07:00 BP 112/58 01/15/23 07:00 Pulse Ox 96 01/15/23 07:00 FiO2 Intake & Output 01/14/23 01/15/23 01/15/23 18:59 06:59 18:59 Output Total 100 Balance -100 Weight 87.09 kg Output: Urine 100 Other: Voiding Method Bedside Commode Bedside Commode # Voids 1 1 # Bowel Movements 2 1 - Labs CBC & Chem 7: 01/14/23 09:24 01/14/23 09:24 Labs: Abnormal Lab Results - Last 24 Hours (Table) 01/14/23 Range/Units 19:42 Urine Appearance Cloudy H (Clear) Urine Blood Large H (Negative) Ur Leukocyte Esterase Large H (Negative) Urine RBC 53 H (0-5) /hpf Urine WBC 28 H (0-5) /hpf Urine WBC Clumps Rare H (None) /hpf Urine Bacteria Moderate H (None) /hpf
[2023-01-15] MEDS: ATORVASTATIN 40 MG TAB PO SCH (21:48)
[2023-01-16] MEDS: HYDROcodone/APAP 10-325MG 1 EACH TAB PO PRN ×2 (03:31→19:53)
[2023-01-16] MEDS: GABAPENTIN 300 MG CAP PO SCH ×3 (08:09→19:52)
[2023-01-16] MEDS: METOPROLOL TARTRATE 50 MG TAB PO SCH ×2 (08:10→19:52)
[2023-01-16] MEDS: FUROSEMIDE 40 MG TAB PO SCH ×2 (08:10→15:04)
[2023-01-16] MEDS: PANTOPRAZOLE 40 MG TABLET PO SCH (08:10)
[2023-01-16] MEDS: FERROUS SULFATE 325 MG TAB PO SCH (08:10)
[2023-01-16] MEDS: AMIODARONE 200 MG TAB PO SCH ×2 (08:10→19:53)
[2023-01-16] MEDS: CHOLECALCIFEROL 125 MCG (5000 IU) TABLET PO SCH (08:10)
[2023-01-16] MEDS: LACTOBACILLUS ACIDOPHILUS/PECT 1 EACH CAPSULE PO SCH (08:10)
[2023-01-16] MEDS: ASCORBIC ACID 500 MG TAB PO SCH (08:10)
[2023-01-16] MEDS: metOLazone 5 MG TAB PO SCH (08:10)
[2023-01-16] MEDS: APIXABAN 5 MG TAB PO SCH ×2 (08:10→19:52)
[2023-01-16] MEDS: CYANOCOBALAMIN 500 MCG TAB PO SCH (08:10)
[2023-01-16] MEDS: DULoxetine HCL 60 MG CAPSULE.DR PO SCH (08:10)
[2023-01-16] MEDS: MONTELUKAST 10 MG TAB PO SCH (08:11)
[2023-01-16] MEDS: LETROZOLE 2.5 MG TAB PO SCH (08:11)
[2023-01-16] MEDS: SYMBICORT 160-4.5 MCG INHALER INHALATION SCH ×2 (08:51→20:20)
[2023-01-16] MEDS: ONDANSETRON 4 MG/2 ML VIAL IVP PRN (10:15)
--- NOTE | 2023-01-16 12:54 | P.PN ---
Subjective Progress Note Date: 01/16/23 Hospital Course: 67-year-old female with history of A. fib and COPD on 2-3 L around the clock, A. fib on Eliquis, CAD status post CABG, hypertension, dyslipidemia, insulin- dependent diabetes, history of polio with right-sided neuropathy/deficits presenting with worsening right-sided weakness and overall generalized weakness. In the ED, temperature is 98.6, pulse 60, respiratory rate 20, blood pressure 106/93, saturating at 98% on 4 L. WBC 7.9, hemoglobin 9.2 from baseline, sodium 135, creatinine 1.16 around baseline, lactate 2.1 improved to 1.3, AST 97, chronically elevated, negative troponin. EKG shows sinus rhythm with right bundle branch block. Chest x-ray shows slightly worsening interstitial opacities. Patient admitted for progressive weakness, debility, difficulty am bulating. Pending physical therapy evaluation and likely discharged to a rehab facility. Subjective: Patient seen and examined at bedside. No acute events overnight. Patient having hematemesis and also complaining about diplopia. Patient is a poor historian with inconsistent story. unsure when diplopia started Pertinent positives and negatives as discussed above, a complete review of sy stems was performed and all other systems are negative. Vitals Signs Reviewed. General: nontoxic, no distress, appears at stated age Derm: warm, dry Head: atraumatic, normocephalic, symmetric Eyes: EOMI, no lid lag, anicteric sclera, pupils equal round reactive to light ENT: Nose and ears atraumatic Neck: No thyromegaly, supple Mouth: no lip lesion, mucus membranes moist Cardiovascular: S1S2 reg, no murmur, no edema Lungs: clear to auscultation bilateral, no rhonchi, no rales, no wheeze, no accessory muscle use Abdominal: soft, nontender to palpation, no guarding, no appreciable organome elsy Ext: 3/5 strength on the right Neuro: CN II-XII grossly intact Psych: Alert, oriented, appropriate affect Data Reviewed Today: Pertinent Labs: TSH 0.019 Imaging: No new imaging Assessment and Plan: Active: Diplopia Progressive weakness History of right leg weakness secondary to polio Debility Lactic acidosis, resolved Low TSH Suspected upper GI bleed -unclear onset of diplopia, no palsy noted on exam -No facial asymmetry -CT head and CTA head and neck pending -IV protonix 40 BID -Surgery consulted -CBC pending -Free T4 pending -PT/OT -Likely will need rehab placement Chronic: COPD on 2-3 L oxygen Atrial fibrillation CAD status post CABG Hypertension Dyslipidemia Insulin-dependent diabetes Chronic normocytic anemia DVT ppx: Eliquis Code status: Full code Anticipated discharge place: Subacute rehab Anticipated discharge time: Pending clinical course Objective - Vital Signs Vital signs: Vital Signs Temp 97.7 F 01/16/23 07:00 Pulse 63 01/16/23 07:00 Resp 18 01/16/23 07:00 BP 113/63 01/16/23 07:00 Pulse Ox 95 01/16/23 07:00 FiO2 Intake & Output 01/15/23 01/16/23 01/16/23 18:59 06:59 18:59 Intake Total 240 Output Total 100 200 Balance 140 -200 Intake: Oral 240 Output: Urine 100 200 Other: Voiding Method Bedside Commode Bedside Commode Bedside Commode # Voids 1 2 - Labs CBC & Chem 7: 01/14/23 09:24 01/14/23 09:24 Labs: Abnormal Lab Results - Last 24 Hours (Table) 01/16/23 Range/Units 11:25 TSH 0.019 L (0.465-4.680) mIU/L
--- NOTE | 2023-01-16 12:56 | CT ---
EXAMINATION TYPE: CT brain wo con DATE OF EXAM: 01/16/2023 COMPARISON: 05/18/2021 HISTORY: weakness, dipolopia CT DLP: 444.1 mGycm Automated exposure control for dose reduction was used. FINDINGS: The ventricles, basal cisterns and sulci over convexities are within normal limits mass effect or maricarmen ft of midline structures. No abnormal density is seen throughout the brain parenchyma and there is no acute intra or extra-axia l hemorrhage. Posterior fossa and the brainstem, fourth ventricle and cerebellar pontine angles are grossly normal. Intraorbital contents appear normal and symmetric. Visualized paranasal sinuses are well aerated. The intraorbital contents are normal and symmetric. There are postsurgical changes of mastoidectomy on the left. The right mastoid air cells are well aer ated. IMPRESSION: 1. No acute bleed or mass effect. 2. Left mastoidectomy
--- NOTE | 2023-01-16 13:01 | CT ---
EXAMINATION TYPE: CT angio head neck DATE OF EXAM: 01/16/2023 HISTORY: weakness, dipolopia COMPARISON: None CT DLP: 444.1 mGycm. Automated Exposure Control for Dose Reduction was Utilized. TECHNIQUE: CTA scan of the head and neck is performed with IV Contrast, patient injected with 65 mL of Isovue 370, axial images are obtained, coronal and sagittal reformatted images are reviewed. 3D re constructed images are created on an independent workstation and reviewed. 3-D postprocessing was per formed. FINDINGS: CTA of the head reveals scattered arteriosclerotic calcifications of the origins of the brachiocephal ic arteries and the carotid bifurcations within the neck. There is a mild stenosis of the origin of t he right internal carotid artery but no significant stenosis of the left internal carotid artery, com mon carotid arteries bilaterally or brachiocephalic origins.. CTA of the head reveals no intracranial arterial segmental occlusion, sizable aneurysm sac or vascula r malformation. IMPRESSION: No significant abnormality of the arterial circulation of the head and neck. NASCET criteria was used in interpretation of this exam?
[2023-01-16 13:28] LABS: Anisocytosis Slight; Basophils % (A) 0 %; Eosinophils # (A) 0.2 k/uL (0-0.7); Eosinophils % (A) 3 %; HCT 29.5 % (34.0-46.0); HGB 9.1 gm/dL (11.4-16.0); Hypochromasia Marked; Lymphocytes # (A) 0.9 k/uL (1.0-4.8); Lymphocytes % (A) 10 %; MCHC 30.9 g/dL (31.0-37.0); MCV 93.8 fL (80.0-100.0); Mean Platelet Volume 9.9; Monocytes # (A) 0.7 k/uL (0-1.0); Monocytes % (A) 7 %; Neutrophils # (A) 7.1 k/uL (1.3-7.7); Neutrophils % (A) 78 %; Platelet Count 214 k/uL (150-450); RBC 3.14 m/uL (3.80-5.40); RDW 17.9 % (11.5-15.5); WBC 9.1 k/uL (3.8-10.6)
[2023-01-16 14:13] LABS: T4, Free (Free Thyroxine) 3.57 ng/dL (0.78-2.19)
[2023-01-16] MEDS: PANTOPRAZOLE 40 MG/10 ML VIAL IVP SCH (19:52)
[2023-01-16] MEDS: ATORVASTATIN 40 MG TAB PO SCH (19:52)
[2023-01-17 08:51] LABS: Basophils # (A) 0.03 X 10*3/uL (0.00-0.10); Basophils % (A) 0.4 %; Eosinophils # (A) 0.16 X 10*3/uL (0.04-0.35); Eosinophils % (A) 1.9 %; HCT 26.4 % (37.2-46.3); HGB 7.9 d/dL (12.0-15.0); Lymphocytes # (A) 0.91 X 10*3/uL (0.90-5.00); Lymphocytes % (A) 10.7 %; MCH 27.7 pg (27.0-32.0); MCHC 29.9 d/dL (32.0-37.0); MCV 92.6 FL (80.0-97.0); Mean Platelet Volume 11.9 FL (9.5-12.2); Monocytes # (A) 0.73 X 10*3/uL (0.20-1.00); Monocytes % (A) 8.6 %; NRBC Per 100 WBC 0 X 10*3/uL (0.00-0.01); Neutrophils # (A) 6.61 X 10*3/uL (1.80-7.70); Neutrophils % (A) 77.9 %; Platelet Count 199 X 10*3/uL (140-440); RBC 2.85 X 10*6/uL (4.10-5.20); RDW 18.6 % (11.5-14.5); WBC 8.48 X 10*3/uL (4.50-10.00)
[2023-01-17] MEDS: SYMBICORT 160-4.5 MCG INHALER INHALATION SCH ×2 (08:59→18:56)
[2023-01-17] MEDS: PANTOPRAZOLE 40 MG/10 ML VIAL IVP SCH ×2 (09:41→20:55)
[2023-01-17] MEDS: ASCORBIC ACID 500 MG TAB PO SCH (09:42)
[2023-01-17] MEDS: DULoxetine HCL 60 MG CAPSULE.DR PO SCH (09:42)
[2023-01-17] MEDS: LACTOBACILLUS ACIDOPHILUS/PECT 1 EACH CAPSULE PO SCH (09:42)
[2023-01-17] MEDS: GABAPENTIN 300 MG CAP PO SCH ×3 (09:43→20:54)
[2023-01-17] MEDS: AMIODARONE 200 MG TAB PO SCH ×2 (09:43→20:54)
[2023-01-17] MEDS: LETROZOLE 2.5 MG TAB PO SCH (09:43)
[2023-01-17] MEDS: FUROSEMIDE 40 MG TAB PO SCH (09:43)
[2023-01-17] MEDS: metOLazone 5 MG TAB PO SCH (09:43)
[2023-01-17] MEDS: CYANOCOBALAMIN 500 MCG TAB PO SCH (09:43)
[2023-01-17] MEDS: FERROUS SULFATE 325 MG TAB PO SCH (09:43)
[2023-01-17] MEDS: CHOLECALCIFEROL 125 MCG (5000 IU) TABLET PO SCH (09:43)
[2023-01-17] MEDS: MONTELUKAST 10 MG TAB PO SCH (09:43)
[2023-01-17] MEDS: METOPROLOL TARTRATE 50 MG TAB PO SCH ×2 (09:43→20:55)
[2023-01-17 10:20] LABS: BUN/Creat Ratio 36.12 Ratio (12.00-20.00); Blood Urea Nitrogen 61.4 mg/dL (9.0-27.0); Carbon Dioxide 25.4 mmol/L (21.6-31.8); Chloride 97 mmol/L (96-109); Glucose 127 mg/dL (70-110); Potassium 2.8 mmol/L (3.5-5.5); Sodium 136 mmol/L (135-145)
[2023-01-17] MEDS ORDERED: POTASSIUM CHLORIDE ER 20 MEQ TAB.ER PO STA ×2 (12:07→14:12)
--- NOTE | 2023-01-17 13:34 | P.PN ---
Subjective Progress Note Date: 01/17/23 Hospital Course: 67-year-old female with history of A. fib and COPD on 2-3 L around the clock, A. fib on Eliquis, CAD status post CABG, hypertension, dyslipidemia, insulin- dependent diabetes, history of polio with right-sided neuropathy/deficits presenting with worsening right-sided weakness and overall generalized weakness. In the ED, temperature is 98.6, pulse 60, respiratory rate 20, blood pressure 106/93, saturating at 98% on 4 L. WBC 7.9, hemoglobin 9.2 from baseline, sodium 135, creatinine 1.16 around baseline, lactate 2.1 improved to 1.3, AST 97, chronically elevated, negative troponin. EKG shows sinus rhythm with right bundle branch block. Chest x-ray shows slightly worsening interstitial opacities. Patient admitted for progressive weakness, debility, difficulty ambulating. Pending physical therapy evaluation and likely discharged to a rehab facility. Patient did complain of further neurological symptoms such as diplopia and headaches. CT head and CT angiogram of head and neck did not show any acute process. She did have episode of hematemesis, surgery has been c onsulted. Subjective: Patient seen and examined at bedside. No acute events overnight. No further episodes of hematemesis. Continues to have occasional diplopia Pertinent positives and negatives as discussed above, a complete review of systems was performed and all other systems are negative. Vitals Signs Reviewed. General: nontoxic, no distress, appears at stated age Derm: warm, dry Head: atraumatic, normocephalic, symmetric Eyes: EOMI, no lid lag, anicteric sclera, pupils equal round reactive to light ENT: Nose and ears atraumatic Neck: No thyromegaly, supple Mouth: no lip lesion, mucus membranes moist Cardiovascular: S1S2 reg, no murmur, no edema Lungs: clear to auscultation bilateral, no rhonchi, no rales, no wheeze, no accessory muscle use Abdominal: soft, nontender to palpation, no guarding, no appreciable organomegaly Ext: 3/5 strength on the right Neuro: CN II-XII grossly intact Psych: Alert, oriented, appropriate affect Data Reviewed Today: Pertinent Labs: Hemoglobin 7.9, potassium 2.8, creatinine 1.7, TSH 0.019, free T4 3.57, magnesium 2.2 Imaging: CT head and CTA head and neck negative for any acute process Assessment and Plan: Active: Diplopia Progressive weakness History of right leg weakness secondary to polio Debility Lactic acidosis, resolved Low TSH, elevated free T4 Suspected upper GI bleed Acute on chronic anemia Hypokalemia Acute kidney injury, nonoliguric -unclear onset of diplopia, no palsy noted on exam -No facial asymmetry -CT head and CTA head and neck negative -IV protonix 40 BID -Surgery consulted, pending recommendations -Patient is on 10 mg of biotin, has been discontinued, we'll need to repeat TSH and free T4 after 2 days -Oral potassium given, repeat BMP tomorrow -Likely over diuresed, Lasix decreased to 40 mg daily and metolazone decreased to 2.5 daily -PT/OT -Likely will need rehab placement Chronic: COPD on 2-3 L oxygen Atrial fibrillation CAD status post CABG Hypertension Dyslipidemia Insulin-dependent diabetes DVT ppx: Eliquis Code status: Full code Anticipated discharge place: Subacute rehab Anticipated discharge time: Pending clinical course Objective - Vital Signs Vital signs: Vital Signs Temp 98.2 F 01/17/23 07:00 Pulse 63 01/17/23 07:00 Resp 16 01/17/23 07:00 BP 108/56 01/17/23 07:00 Pulse Ox 93 L 01/17/23 09:00 FiO2 Intake & Output 01/16/23 01/17/23 01/17/23 18:59 06:59 18:59 Intake Total 240 240 Output Total 500 Balance -260 240 Intake: Oral 240 240 Output: Urine 500 Other: Voiding Method Bedside Commode Bedside Commode # Voids 3 1 # Bowel Movements 1 - Labs CBC & Chem 7: 01/17/23 06:02 01/17/23 06:02 Labs: Abnormal Lab Results - Last 24 Hours (Table) 01/16/23 01/17/23 01/17/23 Range/Units 11:25 06:02 06:02 RBC 2.85 L (4.10-5.20) X 10*6/uL Hgb 7.9 L (12.0-15.0) d/dL Hct 26.4 L (37.2-46.3) % MCHC 29.9 L (32.0-37.0) d/dL RDW 18.6 H (11.5-14.5) % Potassium 2.8 L (3.5-5.5) mmol/L Anion Gap 13.60 H (4.00-12.00) mmol/L BUN 61.4 H (9.0-27.0) mg/dL Creatinine 1.7 H (0.6-1.5) mg/dL Est GFR (CKD-EPI) 32 L (>=60) BUN/Creatinine Ratio 36.12 H (12.00-20.00) Ratio Glucose 127 H (70-110) mg/dL Free T4 3.57 H (0.78-2.19) ng/dL
--- NOTE | 2023-01-17 14:17 | P.GSCN ---
History of Present Illness Consult date: 01/17/23 History of present illness: CHIEF COMPLAINT: Weakness HISTORY OF PRESENT ILLNESS: This is a 67-year-old female who presented with weakness and diplopia. Computed tomography scan of the head and neck were negative for any acute process. Patient followed by medicine service. Patient apparently had some vomiting yesterday. There is concerns that there may have been blood present in the emesis. Surgical service was then consulted for possible hematemesis. She is on Eliquis for atrial fibrillation. The patient does have known iron deficiency anemia and takes iron supplements daily. Hemoglobin was 9.1 and did drop to 7.9 today. Patient denies any abdominal p ain. Her last EGD was in November 2022 with evidence of gastritis last colonoscopy was in 12/27/2022 had shown diverticulosis. Patient does have a history of chronic anemia. Patient denies any alcohol use. Patient denies any stomach ulcer history. PAST MEDICAL HISTORY: Atrial Fibrillation, Coronary Artery Disease (CAD), Cancer, Heart Failure, COPD, Diabetes Mellitus, GERD/Reflux, Hyperlipidemia, Hypertension, moderate pulmonary hypertension PAST SURGICAL HISTORY: Back Surgery, Bowel Resection, Breast Surgery, Cholecystectomy, Coronary Bypass/CABG, Ear Surgery, Heart Catheterization, Tonsillectomy, left salpingo- oophorectomy, R breast lumpectomy, 2 back surgeries with post op infection with I&D, ear surgery x 3/due to bleeding L eardrum. MEDICATIONS: See below ALLERGIES: See below SOCIAL HISTORY: No illicit drug use. REVIEW OF SYSTEMS: CONSTITUTIONAL: Denies fever or chills. HEENT: Denies blurred vision, vision changes, or eye pain. Denies hemoptysis CARDIOVASCULAR: Denies chest pain or pressure. RESPIRATORY: No shortness of breath. GASTROINTESTINAL: See HPI for pertinent findings HEMATOLOGIC: Denies bleeding disorders. GENITOURINARY: Denies any blood in urine or increased urinary frequency. SKIN: Denies pruitis. Denies rash. PHYSICAL EXAM: VITAL SIGNS: Reviewed GENERAL: Well-developed in no acute distress. ABDOMEN: Soft. Nondistended. Nontender NEUROLOGIC: Alert and oriented. Cranial nerves II through XII grossly intact. LABORATORY DATA: WBC 8.48 Hgb 9.1 down to 7.9 platelets 199 Sodium 138 potassium is 2.8 creatinine 1.7 magnesium 2.2 IMAGING: ASSESSMENT: 1. Anemia with possible hematemesis 2. History of iron deficiency anemia 3. History of atrial fibrillation on Eliquis PLAN: -Patient scheduled for EGD tomorrow with Dr. Son -Nothing by mouth after midnight -Hold Eliquis -Continue monitoring for any signs or symptoms of bleeding -Continue to monitor hemoglobin -Medicine replace potassium. Will give an additional 20meq of potassium Physician [employer] note has been reviewed by physician. Signing provider agrees with the documented findings, assessment, and plan of care. Past Medical History Past Medical History: Atrial Fibrillation, Coronary Artery Disease (CAD), Cancer, Heart Failure, COPD, Diabetes Mellitus, GERD/Reflux, Hyperlipidemia, Hypertension Additional Past Medical History / Comment(s): Pt recently admitted to [facility] with acute blood loss anemia/EGD showed mild gastritis per pt. Pt recently admitted to [facility] on 11/29/22 with acute on chronic chf, moderate pulmonary HTN, acute kidney injury, paroxysmal afib, acute blood loss anemia. Other hx: post polio syndrome rt side, neuropathy, hx. spontaneous pneumothorax after cabg, home oxygen at 4L/NC ATC, now NIDDM, chronic transaminitis, bowel resection for sepsis/infection, R breast cancer with lumpectomy only. History of Any Multi-Drug Resistant Organisms: ESBL Year Discovered:: 06/29/21 MDRO Source:: ESBL BACK Past Surgical History: Back Surgery, Bowel Resection, Breast Surgery, Cholecystectomy, Coronary Bypass/CABG, Ear Surgery, Heart Catheterization, Tonsillectomy Additional Past Surgical History / Comment(s): triple bypass 2013, left salpi hendrix-oophorectomy, R breast lumpectomy, 2 back surgeries with post op infection with I&D, ear surgery x 3/due to bleeding L eardrum. Past Anesthesia/Blood Transfusion Reactions: No Reported Reaction Past Psychological History: Anxiety, Depression Smoking Status: Former smoker - Past Family History Mother Family Medical History: Cancer Medications and Allergies Home Medications Medication Instructions Recorded Confirmed Type Atorvastatin [Lipitor] 40 mg PO HS 03/23/16 01/14/23 History DULoxetine HCL [Cymbalta] 60 mg PO QAM 03/23/16 01/14/23 History Metoprolol Tartrate [Lopressor] 50 mg PO BID 03/23/16 01/14/23 History Montelukast [Singulair] 10 mg PO QAM 05/18/21 01/14/23 History Gabapentin 600 mg PO TID 06/29/21 01/14/23 History Budesonide-Formot 160-4.5 Mcg 2 puff INHALATION RT-BID 04/06/22 01/14/23 History [Symbicort 160-4.5 Mcg Inhaler] Biotin [Biotin Disolve] 10,000 mcg PO QAM 09/03/22 01/14/23 History Letrozole [Femara] 2.5 mg PO QAM 09/03/22 01/14/23 History Apixaban [Eliquis] 5 mg PO BID 09/06/22 01/14/23 History Cholecalciferol [Vitamin D3 (125 125 mcg PO QAM 09/06/22 01/14/23 History Mcg = 5000 Iu)] Cyanocobalamin (Vitamin B-12) 2,000 mcg PO QAM 09/06/22 01/14/23 History [Vitamin B-12] Ferrous Sulfate [Iron (65 MG 325 mg PO W/LUNCH #60 tab 09/09/22 01/14/23 Rx Elemental)] Albuterol Inhaler [Ventolin Hfa 2 puff INHALATION RT-QID PRN 11/10/22 01/14/23 History Inhaler] Amiodarone [Cordarone] 200 mg PO BID 11/10/22 01/14/23 History Ondansetron Odt [Zofran ODT] 4 mg PO Q8HR PRN #30 tab 11/11/22 01/14/23 Rx Furosemide [Lasix] 40 mg PO BID@0900,1600 #60 tab 11/22/22 01/14/23 Rx Lactobacillus Acidophilus 1 cap PO QAM 11/29/22 01/14/23 History [Acidophilus Probiotic] Ubidecarenone [Coenzyme Q10] 200 mg PO QAM 11/29/22 01/14/23 History Acetaminophen Tab [Tylenol] 650 mg PO Q6HR PRN tab 12/07/22 01/14/23 Rx Pantoprazole [Protonix] 40 mg PO BID tab 12/07/22 01/14/23 Rx Simethicone Chew [Mylicon Chew] 80 mg PO QID PRN tab 12/07/22 01/14/23 Rx Ascorbic Acid [Vitamin C] 250 mg PO DAILY 01/14/23 01/14/23 History Chlorhexidine Gluconate [Peridex] 15 ml PO BID 01/14/23 01/14/23 History HYDROcodone/APAP 10-325MG [[place] 1 tab PO Q6H 01/14/23 01/14/23 History 10-325] metOLazone [Zaroxolyn] 5 mg PO DAILY 01/14/23 01/14/23 History Allergies Allergy/AdvReac Type Severity Reaction Status Date / Time morphine Allergy rash,itchin Verified 01/14/23 12:31 g Sulfa (Sulfonamide Allergy Rash/Hives Verified 01/14/23 12:31 Antibiotics) amoxicillin [From Augmentin] AdvReac Diarrhea Verified 01/14/23 12:31 clavulanic acid AdvReac Diarrhea Verified 01/14/23 12:31 [From Augmentin] surgical susy AdvReac infection Uncoded 01/14/23 12:32 Surgical - Exam Vital Signs Temp Pulse Resp BP Pulse Ox 98.6 F 60 20 106/93 98 01/14/23 08:56 01/14/23 08:56 01/14/23 08:56 01/14/23 08:56 01/14/23 08:56 Results - Labs 01/17/23 06:02 01/17/23 06:02 Abnormal Lab Results - Last 24 Hours (Table) 01/16/23 01/16/23 01/17/23 Range/Units 11:25 13:06 06:02 RBC 3.14 L 2.85 L (3.80-5.40) m/uL Hgb 9.1 L 7.9 L (11.4-16.0) gm/dL Hct 29.5 L 26.4 L (34.0-46.0) % MCHC 30.9 L 29.9 L (31.0-37.0) g/dL RDW 17.9 H 18.6 H (11.5-15.5) % Lymphocytes # 0.9 L (1.0-4.8) k/uL Potassium (3.5-5.5) mmol/L Anion Gap (4.00-12.00) mmol/L BUN (9.0-27.0) mg/dL Creatinine (0.6-1.5) mg/dL Est GFR (CKD-EPI) (>=60) BUN/Creatinine Ratio (12.00-20.00) Ratio Glucose (70-110) mg/dL TSH 0.019 L (0.465-4.680) mIU/L Free T4 3.57 H (0.78-2.19) ng/dL 01/17/23 Range/Units 06:02 RBC (3.80-5.40) m/uL Hgb (11.4-16.0) gm/dL Hct (34.0-46.0) % MCHC (31.0-37.0) g/dL RDW (11.5-15.5) % Lymphocytes # (1.0-4.8) k/uL Potassium 2.8 L (3.5-5.5) mmol/L Anion Gap 13.60 H (4.00-12.00) mmol/L BUN 61.4 H (9.0-27.0) mg/dL Creatinine 1.7 H (0.6-1.5) mg/dL Est GFR (CKD-EPI) 32 L (>=60) BUN/Creatinine Ratio 36.12 H (12.00-20.00) Ratio Glucose 127 H (70-110) mg/dL TSH (0.465-4.680) mIU/L Free T4 (0.78-2.19) ng/dL Diabetes panel 01/17/23 Range/Units 06:02 Sodium 136 (135-145) mmol/L Potassium 2.8 L (3.5-5.5) mmol/L Chloride 97 (96-109) mmol/L Carbon Dioxide 25.4 (21.6-31.8) mmol/L BUN 61.4 H (9.0-27.0) mg/dL Creatinine 1.7 H (0.6-1.5) mg/dL Glucose 127 H (70-110) mg/dL Calcium 9.0 (8.7-10.3) mg/dL Thyroid panel 01/16/23 Range/Units 11:25 TSH 0.019 L (0.465-4.680) mIU/L Calcium panel 01/17/23 Range/Units 06:02 Calcium 9.0 (8.7-10.3) mg/dL Pituitary panel 01/16/23 01/17/23 Range/Units 11:25 06:02 Sodium 136 (135-145) mmol/L Potassium 2.8 L (3.5-5.5) mmol/L Chloride 97 (96-109) mmol/L Carbon Dioxide 25.4 (21.6-31.8) mmol/L BUN 61.4 H (9.0-27.0) mg/dL Creatinine 1.7 H (0.6-1.5) mg/dL Glucose 127 H (70-110) mg/dL Calcium 9.0 (8.7-10.3) mg/dL TSH 0.019 L (0.465-4.680) mIU/L Adrenal panel 01/17/23 Range/Units 06:02 Sodium 136 (135-145) mmol/L Potassium 2.8 L (3.5-5.5) mmol/L Chloride 97 (96-109) mmol/L Carbon Dioxide 25.4 (21.6-31.8) mmol/L BUN 61.4 H (9.0-27.0) mg/dL Creatinine 1.7 H (0.6-1.5) mg/dL Glucose 127 H (70-110) mg/dL Calcium 9.0 (8.7-10.3) mg/dL
[2023-01-17] MEDS: ATORVASTATIN 40 MG TAB PO SCH (20:54)
[2023-01-17] MEDS: ONDANSETRON 4 MG/2 ML VIAL IVP PRN (20:55)
[2023-01-17] MEDS: LACTATED RINGERS 1,000 ML IV SCH (22:09)
[2023-01-18 07:43] LABS: Anisocytosis Slight; Hypochromasia Slight; MCH 28.9 pg (25.0-35.0); MCHC 31.8 g/dL (31.0-37.0); MCV 90.8 fL (80.0-100.0); Mean Platelet Volume 9.6; Platelet Count 214 k/uL (150-450); RBC 2.64 m/uL (3.80-5.40); RDW 18.2 % (11.5-15.5)
[2023-01-18 07:44] LABS: African American GFR (CKD) 29 (>60 ml/min/1.73 sqM); Anion Gap 10 mmol/L; Blood Urea Nitrogen 75 mg/dL (7-17); Calcium 8.8 mg/dL (8.4-10.2); Carbon Dioxide 23 mmol/L (22-30); Chloride 100 mmol/L (98-107); Glucose 103 mg/dL (74-99); Non-African American GFR(CKD) 25 (>60 ml/min/1.73 sqM); Potassium 3.4 mmol/L (3.5-5.1); Sodium 133 mmol/L (137-145)
[2023-01-18 07:45] LABS: HGB 7.6 gm/dL (11.4-16.0)
[2023-01-18] MEDS ORDERED: POTASSIUM CHLORIDE ER 20 MEQ TAB.ER PO STA (08:00)
[2023-01-18] MEDS: AMIODARONE 200 MG TAB PO SCH ×2 (08:29→21:57)
[2023-01-18] MEDS: DULoxetine HCL 60 MG CAPSULE.DR PO SCH (08:30)
[2023-01-18] MEDS: METOPROLOL TARTRATE 50 MG TAB PO SCH ×2 (08:30→21:57)
[2023-01-18] MEDS: ONDANSETRON 4 MG TAB PO PRN (08:30)
[2023-01-18] MEDS: PANTOPRAZOLE 40 MG/10 ML VIAL IVP SCH ×2 (08:31→21:57)
[2023-01-18] MEDS ORDERED: SODIUM CHLORIDE 0.9% 500 ML 500 ML IV ONE (09:12)
[2023-01-18] MEDS: SYMBICORT 160-4.5 MCG INHALER INHALATION SCH ×2 (09:15→21:17)
--- NOTE | 2023-01-18 11:56 | CDI ---
Documentation Clarification Form Date: 01/18/2023 11:25:40 AM From: Radha Wilson RN, CCDS Admit Date: 01/14/2023 12:22:00 PM Patient Name: Shelby Robison Visit Number: [id number] Discharge Date: ATTENTION: The Clinical Documentation Specialists (CDI) and [facility] Coding Staff appreciate your assistance in clarifying documentation. Please respond to the clarification below the line at the bottom and electronically sign. The CDI & [facility] Coding staff will review the response and follow-up if needed. Please note: Queries are made part of the Legal Health Record. If you have any questions, please contact the author of this message via ITS. Dr. Addi Peace Your patient has the documented symptom of weakness in the H/P and subsequent progress notes Additional clarification regarding the etiology/cause of this symptom is requested. History/Risk Factors: Atrial Fibrillation, Coronary Artery Disease, Heart Failure, COPD, Diabetes Mellitus, GERD/Reflux, Hyperlipidemia, Cancer, Hypertension, Former smoker, History of right leg weakness secondary to polio Clinical Indicators: 67-year-old female presenting with worsening right-sided weakness.History of right leg weakness secondary to polio 01/14 VS: 106/93 60 20 98.6 98% on 4/L NC 01/14 Labs: WBC 7.9 HGB 9.2, BUN 58 CR 1.16 GFR 48, Lactic acid 2.; UA Large Leukocyte Esterase, Urine Bacteria-Moderate 01/14 CXR: Slight increase in diffuse interstitial opacity and mild patchy peripheral and basilar densities. Possible trace effusions. Correlate to exclude mild CHF. Treatment: PT/OT Case Management: possible rehab/placement Is there a corresponding diagnosis/etiology for this symptom of weakness. [ x ] Age related physical debility [ ] Age related cognitive decline [ ] Unable to determine [ ] Other, please specify (Template Last Reviewed: May 2020) MTDD
[2023-01-18] MEDS: CHOLECALCIFEROL 125 MCG (5000 IU) TABLET PO SCH (12:01)
[2023-01-18] MEDS: LACTOBACILLUS ACIDOPHILUS/PECT 1 EACH CAPSULE PO SCH (12:01)
[2023-01-18] MEDS: CYANOCOBALAMIN 500 MCG TAB PO SCH (12:01)
[2023-01-18] MEDS: LETROZOLE 2.5 MG TAB PO SCH (12:01)
[2023-01-18] MEDS: ASCORBIC ACID 500 MG TAB PO SCH (12:01)
[2023-01-18] MEDS: metOLazone 5 MG TAB PO SCH (12:01)
[2023-01-18] MEDS: FUROSEMIDE 40 MG TAB PO SCH (12:01)
[2023-01-18] MEDS: GABAPENTIN 300 MG CAP PO SCH ×3 (12:02→21:57)
[2023-01-18] MEDS: MONTELUKAST 10 MG TAB PO SCH (12:02)
[2023-01-18] MEDS ORDERED: IV FLUID CONTINUATION 1,000 ML IV ONE (12:06)
[2023-01-18] MEDS ORDERED: PROPOFOL 10 MG/ML 20 ML VIAL IV ONE (12:06)
[2023-01-18] MEDS ORDERED: LIDOCAINE 1% INJ 10MG/ML (20 ML MDV) ONE (12:06)
--- NOTE | 2023-01-18 12:13 | CDI ---
Documentation Clarification Form Date: 01/18/2023 12:12:49 PM From: Radha Wilson RN, CCDS Admit Date: 01/14/2023 12:22:00 PM Patient Name: Shelby Robison Visit Number: [id number] Discharge Date: ATTENTION: The Clinical Documentation Specialists (CDI) and [facility] Coding Staff appreciate your assistance in clarifying documentation. Please respond to the clarification below the line at the bottom and electronically sign. The CDI & [facility] Coding staff will review the response and follow-up if needed. Please note: Queries are made part of the Legal Health Record. If you have any questions, please contact the author of this message via ITS. Dr. Addi Peace Your patient has COPD on 2-3 L around the clock documented in the H/P and subsequent progress notes. Based on this information and the findings below, is there an additional diagnosis that is clinically appropriate for this patient? History/Risk Factors: Atrial Fibrillation, Coronary Artery Disease, Cancer, Heart Failure, COPD, Diabetes Mellitus, GERD/Reflux, Hyperlipidemia, Hypertension, Former smoker Clinical Indicators: 67-year-old female presenting with worsening right-sided weakness. Lungs: clear to auscultation bilateral, no rhonchi, no rales, no wheeze, no accessory muscle use 01/14 VS: 106/93 60 20 98.6 98% on 4/L NC 01/14 Labs: WBC 7.9 HGB 9.2, BUN 58 CR 1.16 GFR 48, Lactic acid 2.1; UA Large Leukocyte Esterase, Urine Bacteria-Moderate 01/14 CXR: Slight increase in diffuse interstitial opacity and mild patchy peripheral and basilar densities. Possible trace effusions. Correlate to exclude mild CHF. Treatment: Monitor 02 Sat's (titrate) Symbicort 160-4.5 Mcg Inhaler 2 puff BID 01/14-01/18 Ventolin 2 Puff QID, PRN Is there an additional diagnosis that is clinically appropriate for this patient? [ x] Chronic Hypoxic Respiratory Failure [ ] Other Diagnosis, please specify [ ] Unable to determine. (Template Last Revised: June 2020) MTDD
--- NOTE | 2023-01-18 12:19 | P.OP ---
Date of Procedure: 01/18/23 Preoperative Diagnosis: Anemia Epigastric pain Postoperative Diagnosis: Antral gastritis Bleeding gastric polyp Procedure(s) Performed: EGD Anesthesia: MAC Surgeon: Jaskaran Son Pathology: other (Antrum, body stomach) Condition: stable Disposition: PACU Description of Procedure: The patient's placed on the endoscopy table in the lateral position. She received IV sedation. The gastroscope was oropharynx passed in the esophagus and stomach. Scope was then placed through the pylorus. The first and second portion of duodenum appeared normal. Scope summer back the antrum this was mildly inflamed. A biopsy was performed. The scope was then brought back and the mid body of the stomach there were some benign appearing gastric polyps which appeared to have evidence of bleeding. The polyp was biopsied. Scope was unretroflexed and remainder the stomach appeared normal. The GE junction was at 40 cm per the distal esophagus appeared normal. The proximal esophagus. Scope withdrawn for patient.
--- NOTE | 2023-01-18 12:41 | CDI ---
Documentation Clarification Form Date: 01/18/2023 12:14:05 PM From: Radha Wilson RN, CCDS Admit Date: 01/14/2023 12:22:00 PM Patient Name: Shelby Robison Visit Number: [id number] Discharge Date: ATTENTION: The Clinical Documentation Specialists (CDI) and [facility] Coding Staff appreciate your assistance in clarifying documentation. Please respond to the clarification below the line at the bottom and electronically sign. The CDI & [facility] Coding staff will review the response and follow-up if needed. Please note: Queries are made part of the Legal Health Record. If you have any questions, please contact the author of this message via ITS. Dr. Addi Peace Your patient has the documented diagnosis of unspecified CHF in the past medical history with ongoing treatment. Additional information regarding the type, acuity of CHF is requested. History/Risk Factors: Atrial Fibrillation, Coronary Artery Disease, Heart Failure, COPD, Diabetes Mellitus, GERD/Reflux, Hyperlipidemia, Cancer, Hypertension, Former smoker Clinical Indicators: 67-year-old female presenting with worsening right-sided weakness. Lungs: clear to auscultation bilateral, no rhonchi, no rales, no wheeze, no accessory muscle use 01/14 VS/Pulse OX: 106/93 60 20 98.6 98% on 4/L NC 01/14 Labs: WBC 7.9 HGB 9.2, BUN 58 CR 1.16 GFR 48, Lactic acid 2.1 BNP: 1030 Echocardiogram Results: (09/15/2022): Left ventricular ejection fraction is estimated at 60-65 % Right Ventricle: Moderate right ventricular dilation. Moderate pulmonary hypertension. Mild tricuspid regurgitation. 01/14 CXR: Slight increase in diffuse interstitial opacity and mild patchy peripheral and basilar densities. Possible trace effusions. Correlate to exclude mild CHF. Treatment: Lasix 40 MG PO Daily 01/15-12/18 Lipitor 40 MG PO HS Lopressor 50 MG PO BID01/14-01/18 In your professional opinion, can you please clarify the acuity and type of CHF if known? [ ] Chronic Systolic Heart Failure (reduced EF) [ ] Acute on Chronic Systolic Heart Failure (reduced EF) [ ] Acute Diastolic Heart Failure (preserved EF) [ x] Chronic Diastolic Heart Failure (preserved EF) [ ] Acute on Chronic Diastolic Heart Failure (preserved EF) [ ] Acute Systolic & Diastolic Heart Failure [ ] Other, please specify [ ] Unable to determine (Template Last Revised: May 2020) MTDD
[2023-01-18 13:28] LABS: Anisocytosis Slight; Basophils % (A) 0 %; Eosinophils # (A) 0.2 k/uL (0-0.7); Eosinophils % (A) 2 %; HCT 26.6 % (34.0-46.0); HGB 7.9 gm/dL (11.4-16.0); Hypochromasia Marked; Lymphocytes # (A) 0.9 k/uL (1.0-4.8); Lymphocytes % (A) 10 %; MCH 28.2 pg (25.0-35.0); MCHC 29.7 g/dL (31.0-37.0); MCV 94.7 fL (80.0-100.0); Macrocytosis Slight; Monocytes # (A) 0.6 k/uL (0-1.0); Monocytes % (A) 7 %; Neutrophils # (A) 6.9 k/uL (1.3-7.7); Neutrophils % (A) 79 %; Platelet Count 216 k/uL (150-450); RBC 2.81 m/uL (3.80-5.40); RDW 18.2 % (11.5-15.5); WBC 8.8 k/uL (3.8-10.6)
--- NOTE | 2023-01-18 14:37 | P.PN ---
Subjective Progress Note Date: 01/18/23 CHIEF COMPLAINT: Weakness HISTORY OF PRESENT ILLNESS: Patient scheduled for EGD today. She is having mul tiple loose black stools. Patient does complain of cramping across the lower abdomen. No nausea or vomiting. Hemoglobin 7.9. K3.4. Vital stable PHYSICAL EXAM: VITAL SIGNS: Reviewed. GENERAL: Well-developed in no acute distress. ABDOMEN: Soft. Nondistended. Tenderness to palpation across lower abdomen NEUROLOGIC: Alert and oriented. Cranial nerves II through XII grossly intact. ASSESSMENT: 1. Anemia with possible hematemesis and melanotic stools 2. History of iron deficiency anemia 3. History of atrial fibrillation on Eliquis PLAN: -Patient scheduled for EGD today with Dr. sandhu -Continue to monitor hemoglobin -Potassium being replaced -Eliquis on hold Physician [employer] note has been reviewed by physician. Signing provider agrees with the documented findings, assessment, and plan of care. Objective - Vital Signs Vital signs: Vital Signs Temp 97.5 F L 01/18/23 07:27 Pulse 62 01/18/23 07:27 Resp 17 01/18/23 07:27 BP 100/56 01/18/23 07:27 Pulse Ox 99 01/18/23 09:16 FiO2 Intake & Output 01/17/23 01/18/23 01/18/23 18:59 06:59 18:59 Intake Total 480 Output Total 200 Balance 280 Intake: Oral 480 Output: Urine 200 Other: Voiding Method Bedside Commode # Voids 200 2 1 # Bowel Movements 1 1 2 - Labs CBC & Chem 7: 01/18/23 12:50 01/18/23 06:52 Labs: Abnormal Lab Results - Last 24 Hours (Table) 01/18/23 01/18/23 Range/Units 06:52 06:52 RBC 2.64 L (3.80-5.40) m/uL Hgb 7.6 L D (11.4-16.0) gm/dL Hct 24.0 L (34.0-46.0) % RDW 18.2 H (11.5-15.5) % Sodium 133 L (137-145) mmol/L Potassium 3.4 L (3.5-5.1) mmol/L BUN 75 H (7-17) mg/dL Creatinine 1.97 H (0.52-1.04) mg/dL Glucose 103 H (74-99) mg/dL
--- NOTE | 2023-01-18 15:25 | P.PN ---
Subjective Progress Note Date: 01/18/23 Hospital Course: 67-year-old female with history of A. fib and COPD on 2-3 L around the clock, A. fib on Eliquis, CAD status post CABG, hypertension, dyslipidemia, insulin- dependent diabetes, history of polio with right-sided neuropathy/deficits presenting with worsening right-sided weakness and overall generalized weakness. In the ED, temperature is 98.6, pulse 60, respiratory rate 20, blood pressure 106/93, saturating at 98% on 4 L. WBC 7.9, hemoglobin 9.2 from baseline, sodium 135, creatinine 1.16 around baseline, lactate 2.1 improved to 1.3, AST 97, chronically elevated, negative troponin. EKG shows sinus rhythm with right bundle branch block. Chest x-ray shows slightly worsening interstitial opacities. Patient admitted for progressive weakness, debility, difficulty ambulating. Pending physical therapy evaluation and likely discharged to a rehab facility. Patient did complain of further neurological symptoms such as diplopia and headaches. CT head and CT angiogram of head and neck did not show any acute process. She did have episode of hematemesis, surgery has been consulted. Subjective: Patient seen and examined at bedside. No acute events overnight. Pt having multiple melenic stools. Hgb down to 7.6. Gen: awake, alert HEENT: normocephalic, atraumatic, good hearing acuity, moist mucous membranes Resp: good air exchange, breathing comfortably with no accessory muscle use CVS: good distal perfusion x 4, GI: soft, NTTP, ND : no SPT, no CVAT, stacy catheter not present MSK: no pitting edema, no clubbing Neuro: non-focal, moving all extremities Psych: cooperative, euthymic mood Assessment and Plan: Acute blood loss anemia Upper GI bleed -CBC every 6 hours -Transfuse Packed Red Blood cells for hemoglobin less than 7 -Operative note reviewed, bleeding polyp present -PPI twice a day -Hold diuretics, 500 mL bolus Low TSH, elevated free T4 -Repeat thyroid function test tomorrow morning Acute kidney injury, nonoliguric -Hold diuretics, IV fluids as above -Repeat BMP, magnesium tomorrow Progressive weakness History of right leg weakness secondary to polio Debility -PT/OT Chronic: COPD on 2-3 L oxygen Atrial fibrillation CAD status post CABG Hypertension Dyslipidemia Insulin-dependent diabetes DVT ppx: Eliquis is on hold due to GI bleed Code status: Full code Anticipated discharge place: Subacute rehab Anticipated discharge time: Pending clinical course Objective - Vital Signs Vital signs: Vital Signs Temp 97.7 F 01/18/23 13:38 Pulse 52 L 01/18/23 13:38 Resp 17 01/18/23 13:38 BP 96/46 01/18/23 13:38 Pulse Ox 95 01/18/23 13:38 FiO2 Intake & Output 01/17/23 01/18/23 01/18/23 18:59 06:59 18:59 Intake Total 480 100 Output Total 200 Balance 280 100 Intake: IV 100 Oral 480 Output: Urine 200 Other: Voiding Method Bedside Commode Bedpan # Voids 200 2 1 # Bowel Movements 1 1 1 - Labs CBC & Chem 7: 01/18/23 12:50 01/18/23 06:52 Labs: Abnormal Lab Results - Last 24 Hours (Table) 01/18/23 01/18/23 01/18/23 Range/Units 06:52 06:52 12:50 RBC 2.64 L 2.81 L (3.80-5.40) m/uL Hgb 7.6 L D 7.9 L (11.4-16.0) gm/dL Hct 24.0 L 26.6 L (34.0-46.0) % MCHC 29.7 L (31.0-37.0) g/dL RDW 18.2 H 18.2 H (11.5-15.5) % Lymphocytes # 0.9 L (1.0-4.8) k/uL Sodium 133 L (137-145) mmol/L Potassium 3.4 L (3.5-5.1) mmol/L BUN 75 H (7-17) mg/dL Creatinine 1.97 H (0.52-1.04) mg/dL Glucose 103 H (74-99) mg/dL
[2023-01-18] MEDS: FERROUS SULFATE 325 MG TAB PO SCH (16:02)
[2023-01-18] MEDS: HYDROcodone/APAP 10-325MG 1 EACH TAB PO PRN (18:05)
[2023-01-18 20:13] LABS: Anisocytosis Slight; Basophils % (A) 0 %; Eosinophils # (A) 0.2 k/uL (0-0.7); Eosinophils % (A) 2 %; HCT 27.2 % (34.0-46.0); HGB 8.2 gm/dL (11.4-16.0); Hypochromasia Marked; Lymphocytes % (A) 10 %; MCH 28.7 pg (25.0-35.0); MCHC 30.2 g/dL (31.0-37.0); Macrocytosis Slight; Mean Platelet Volume 10.1; Monocytes # (A) 0.6 k/uL (0-1.0); Monocytes % (A) 6 %; Neutrophils # (A) 7.8 k/uL (1.3-7.7); Neutrophils % (A) 80 %; Platelet Count 238 k/uL (150-450); RBC 2.86 m/uL (3.80-5.40); RDW 18.3 % (11.5-15.5); WBC 9.8 k/uL (3.8-10.6)
[2023-01-18] MEDS: LACTATED RINGERS 1,000 ML IV SCH (21:54)
[2023-01-18] MEDS: ATORVASTATIN 40 MG TAB PO SCH (21:57)
[2023-01-19 04:08] LABS: Anisocytosis Slight; Basophils % (A) 0 %; Eosinophils # (A) 0.2 k/uL (0-0.7); Eosinophils % (A) 2 %; HCT 24.3 % (34.0-46.0); HGB 7.6 gm/dL (11.4-16.0); Hypochromasia Marked; Lymphocytes # (A) 0.6 k/uL (1.0-4.8); Lymphocytes % (A) 7 %; MCH 29.1 pg (25.0-35.0); MCHC 31.1 g/dL (31.0-37.0); MCV 93.5 fL (80.0-100.0); Mean Platelet Volume 9.5; Monocytes # (A) 0.6 k/uL (0-1.0); Monocytes % (A) 7 %; Neutrophils % (A) 83 %; Platelet Count 222 k/uL (150-450); RDW 18.3 % (11.5-15.5); WBC 8.4 k/uL (3.8-10.6)
[2023-01-19 04:17] LABS: African American GFR (CKD) 25 (>60 ml/min/1.73 sqM); Anion Gap 10 mmol/L; Blood Urea Nitrogen 78 mg/dL (7-17); Calcium 8.6 mg/dL (8.4-10.2); Carbon Dioxide 21 mmol/L (22-30); Chloride 101 mmol/L (98-107); Glucose 116 mg/dL (74-99); Magnesium 2.1 mg/dL (1.6-2.3); Non-African American GFR(CKD) 22 (>60 ml/min/1.73 sqM); Sodium 132 mmol/L (137-145)
[2023-01-19 06:40] LABS: T4, Free (Free Thyroxine) 3.63 ng/dL (0.78-2.19)
[2023-01-19] MEDS: SYMBICORT 160-4.5 MCG INHALER INHALATION SCH ×2 (09:21→20:42)
[2023-01-19 09:31] LABS: Anisocytosis Slight; Basophils % (A) 0 %; Eosinophils # (A) 0.2 k/uL (0-0.7); Eosinophils % (A) 2 %; HCT 26.5 % (34.0-46.0); HGB 8.5 gm/dL (11.4-16.0); Hypochromasia Moderate; Lymphocytes # (A) 0.6 k/uL (1.0-4.8); Lymphocytes % (A) 7 %; MCH 29.5 pg (25.0-35.0); MCHC 32.1 g/dL (31.0-37.0); MCV 91.9 fL (80.0-100.0); Mean Platelet Volume 10.4; Monocytes # (A) 0.6 k/uL (0-1.0); Monocytes % (A) 7 %; Neutrophils # (A) 7.3 k/uL (1.3-7.7); Neutrophils % (A) 83 %; Platelet Count 166 k/uL (150-450); RBC 2.88 m/uL (3.80-5.40); RDW 18.2 % (11.5-15.5); WBC 8.8 k/uL (3.8-10.6)
[2023-01-19] MEDS: DULoxetine HCL 60 MG CAPSULE.DR PO SCH (09:57)
[2023-01-19] MEDS: LETROZOLE 2.5 MG TAB PO SCH (09:57)
[2023-01-19] MEDS: FERROUS SULFATE 325 MG TAB PO SCH (09:57)
[2023-01-19] MEDS: METOPROLOL TARTRATE 50 MG TAB PO SCH ×2 (09:57→21:18)
[2023-01-19] MEDS: AMIODARONE 200 MG TAB PO SCH ×2 (09:57→21:18)
[2023-01-19] MEDS: CHOLECALCIFEROL 125 MCG (5000 IU) TABLET PO SCH (09:58)
[2023-01-19] MEDS: LACTOBACILLUS ACIDOPHILUS/PECT 1 EACH CAPSULE PO SCH (09:58)
[2023-01-19] MEDS: ASCORBIC ACID 500 MG TAB PO SCH (09:58)
[2023-01-19] MEDS: CYANOCOBALAMIN 500 MCG TAB PO SCH (09:58)
[2023-01-19] MEDS: FUROSEMIDE 40 MG TAB PO SCH (09:58)
[2023-01-19] MEDS: MONTELUKAST 10 MG TAB PO SCH (09:59)
[2023-01-19] MEDS: PANTOPRAZOLE 40 MG/10 ML VIAL IVP SCH ×2 (09:59→21:18)
[2023-01-19] MEDS: metOLazone 5 MG TAB PO SCH (09:59)
[2023-01-19] MEDS: GABAPENTIN 300 MG CAP PO SCH ×3 (10:02→21:18)
--- NOTE | 2023-01-19 12:33 | US ---
EXAMINATION TYPE: US kidneys/renal and bladder DATE OF EXAM: 01/19/2023 COMPARISON: CT, US 2022 CLINICAL INDICATION: Female, 67 years old with history of VALENT[place]; [place] EXAM MEASUREMENTS: Right Kidney: 9.7 x 4.5 x 3.7 cm Left Kidney: 11.5 x 4.2 x 4.6 cm Right Kidney: No hydronephrosis or masses seen Left Kidney: No hydronephrosis or masses seen Bladder: Appears anechoic. Bilateral Jets seen: No, unable to properly evaluate for jets due to great amount of movement/artif act on screen. Incidental finding: spleen appears enlarged: 15.9 cm. No hydronephrosis or nephrolithiasis or solid masses involving both kidneys. Cortical medullary diffe rentiation is maintained bilaterally. Urinary bladder appears unremarkable anechoic. Mildly enlarged spleen measuring 15.9 cm in greatest dimension. IMPRESSION: 1. No hydronephrosis or nephrolithiasis. 2. Mild splenomegaly.
[2023-01-19] MEDS: methIMAzole 5 MG TAB PO SCH (12:44)
--- NOTE | 2023-01-19 14:22 | P.PN ---
Subjective Progress Note Date: 01/19/23 CHIEF COMPLAINT: Weakness HISTORY OF PRESENT ILLNESS: Patient status post EGD with biopsy. EGD results s howed antral gastritis and bleeding gastric polyp. Patient denies any abdominal pain. She is still having black stools. Denies any nausea or vomiting. She does remain on oral iron. Afebrile. Hgb did go up from 7.6-8.5 stool for C. diff negative PHYSICAL EXAM: VITAL SIGNS: Reviewed. GENERAL: Well-developed in no acute distress. ABDOMEN: Soft. Nondistended. Nontender ASSESSMENT: 1. Anemia status post EGD with antral gastritis and bleeding gastric polyp 2. History of iron deficiency anemia 3. History of atrial fibrillation on Eliquis PLAN: -Continue regular diet -Continue PPI -Follow up on biopsy results -Continue to monitor hemoglobin -Continue to hold Eliquis Physician Office Support note has been reviewed by physician. Signing provider agrees with the documented findings, assessment, and plan of care. Objective - Vital Signs Vital signs: Vital Signs Temp 98.4 F 01/19/23 08:00 Pulse 65 01/19/23 08:00 Resp 18 01/19/23 08:00 BP 108/47 01/19/23 08:00 Pulse Ox 92 L 01/19/23 09:22 FiO2 Intake & Output 01/18/23 01/19/23 01/19/23 18:59 06:59 18:59 Intake Total 100 90 Output Total 1 Balance 100 89 Intake: IV 100 Oral 90 Output: Stool 1 Other: Voiding Method Bedpan Bedpan # Voids 1 2 2 # Bowel Movements 3 - Labs CBC & Chem 7: 01/19/23 09:03 01/19/23 03:43 Labs: Abnormal Lab Results - Last 24 Hours (Table) 01/18/23 01/18/23 01/19/23 Range/Units 12:50 19:09 03:43 RBC 2.81 L 2.86 L 2.60 L (3.80-5.40) m/uL Hgb 7.9 L 8.2 L 7.6 L (11.4-16.0) gm/dL Hct 26.6 L 27.2 L 24.3 L (34.0-46.0) % MCHC 29.7 L 30.2 L (31.0-37.0) g/dL RDW 18.2 H 18.3 H 18.3 H (11.5-15.5) % Neutrophils # 7.8 H (1.3-7.7) k/uL Lymphocytes # 0.9 L 0.6 L (1.0-4.8) k/uL Sodium (137-145) mmol/L Carbon Dioxide (22-30) mmol/L BUN (7-17) mg/dL Creatinine (0.52-1.04) mg/dL Glucose (74-99) mg/dL TSH (0.465-4.680) mIU/L Free T4 (0.78-2.19) ng/dL 01/19/23 01/19/23 Range/Units 03:43 09:03 RBC 2.88 L (3.80-5.40) m/uL Hgb 8.5 L (11.4-16.0) gm/dL Hct 26.5 L (34.0-46.0) % MCHC (31.0-37.0) g/dL RDW 18.2 H (11.5-15.5) % Neutrophils # (1.3-7.7) k/uL Lymphocytes # 0.6 L (1.0-4.8) k/uL Sodium 132 L (137-145) mmol/L Carbon Dioxide 21 L (22-30) mmol/L BUN 78 H (7-17) mg/dL Creatinine 2.25 H (0.52-1.04) mg/dL Glucose 116 H (74-99) mg/dL TSH 0.020 L (0.465-4.680) mIU/L Free T4 3.63 H (0.78-2.19) ng/dL
--- NOTE | 2023-01-19 14:42 | P.PN ---
Subjective Progress Note Date: 01/19/23 Hospital Course: 67-year-old female with history of A. fib and COPD on 2-3 L around the clock, A. fib on Eliquis, CAD status post CABG, hypertension, dyslipidemia, insulin- dependent diabetes, history of polio with right-sided neuropathy/deficits presenting with worsening right-sided weakness and overall generalized weakness. In the ED, temperature is 98.6, pulse 60, respiratory rate 20, blood pressure 106/93, saturating at 98% on 4 L. WBC 7.9, hemoglobin 9.2 from baseline, sodium 135, creatinine 1.16 around baseline, lactate 2.1 improved to 1.3, AST 97, chronically elevated, negative troponin. EKG shows sinus rhythm with right bundle branch block. Chest x-ray shows slightly worsening interstitial opacities. Patient admitted for progressive weakness, debility, difficulty am bulating. Pending physical therapy evaluation and likely discharged to a rehab facility. Patient did complain of further neurological symptoms such as diplopia and headaches. CT head and CT angiogram of head and neck did not show any acute process. She did have episode of hematemesis, surgery has been consulted. EGD completed, shows antral gastritis, bleeding gastric polyp, biopsies taken. Renal function slightly worsening. Patient also has hyperthyroidism possibly contributing to diarrhea. Started on methimazole. Subjective: Patient seen and examined at bedside. No acute events overnight. Still having multiple bowel movements. Gen: awake, alert HEENT: normocephalic, atraumatic, good hearing acuity, moist mucous membranes Resp: good air exchange, breathing comfortably with no accessory muscle use CVS: good distal perfusion x 4, GI: soft, NTTP, ND : no SPT, no CVAT, stacy catheter not present MSK: no pitting edema, no clubbing Neuro: non-focal, moving all extremities Psych: cooperative, euthymic mood Data reviewed: Hemoglobin 8.5, potassium 4, creatinine 2.25, TSH 0.02, free T4 2 0.63, C. diff negative Assessment and Plan: Acute blood loss anemia Upper GI bleed Antral gastritis Bleeding gastric polyp -Monitor CBC -PPI twice a day -Eliquis currently on hold -Restarted back on regular diet -Surgery not reviewed Hyperthyroidism -Possibly amiodarone-induced -Started on methimazole Diarrhea -Possibly setting up hyperthyroidism -C. diff negative Acute kidney injury, nonoliguric -Hold diuretics, not given today -Encourage oral intake -Repeat BMP, magnesium tomorrow Progressive weakness History of right leg weakness secondary to polio Debility -PT/OT Chronic: COPD on 2-3 L oxygen Atrial fibrillation CAD status post CABG Hypertension Dyslipidemia Insulin-dependent diabetes DVT ppx: Eliquis is on hold due to GI bleed Code status: Full code Anticipated discharge place: Subacute rehab Anticipated discharge time: Pending clinical course Objective - Vital Signs Vital signs: Vital Signs Temp 98.4 F 01/19/23 08:00 Pulse 65 01/19/23 08:00 Resp 18 01/19/23 08:00 BP 108/47 01/19/23 08:00 Pulse Ox 92 L 01/19/23 09:22 FiO2 Intake & Output 01/18/23 01/19/23 01/19/23 18:59 06:59 18:59 Intake Total 100 90 Output Total 1 Balance 100 89 Intake: IV 100 Oral 90 Output: Stool 1 Other: Voiding Method Bedpan Bedpan # Voids 1 2 2 # Bowel Movements 3 - Labs CBC & Chem 7: 01/19/23 09:03 01/19/23 03:43 Labs: Abnormal Lab Results - Last 24 Hours (Table) 01/18/23 01/19/23 01/19/23 Range/Units 19:09 03:43 03:43 RBC 2.86 L 2.60 L (3.80-5.40) m/uL Hgb 8.2 L 7.6 L (11.4-16.0) gm/dL Hct 27.2 L 24.3 L (34.0-46.0) % MCHC 30.2 L (31.0-37.0) g/dL RDW 18.3 H 18.3 H (11.5-15.5) % Neutrophils # 7.8 H (1.3-7.7) k/uL Lymphocytes # 0.6 L (1.0-4.8) k/uL Sodium 132 L (137-145) mmol/L Carbon Dioxide 21 L (22-30) mmol/L BUN 78 H (7-17) mg/dL Creatinine 2.25 H (0.52-1.04) mg/dL Glucose 116 H (74-99) mg/dL TSH 0.020 L (0.465-4.680) mIU/L Free T4 3.63 H (0.78-2.19) ng/dL 01/19/23 Range/Units 09:03 RBC 2.88 L (3.80-5.40) m/uL Hgb 8.5 L (11.4-16.0) gm/dL Hct 26.5 L (34.0-46.0) % MCHC (31.0-37.0) g/dL RDW 18.2 H (11.5-15.5) % Neutrophils # (1.3-7.7) k/uL Lymphocytes # 0.6 L (1.0-4.8) k/uL Sodium (137-145) mmol/L Carbon Dioxide (22-30) mmol/L BUN (7-17) mg/dL Creatinine (0.52-1.04) mg/dL Glucose (74-99) mg/dL TSH (0.465-4.680) mIU/L Free T4 (0.78-2.19) ng/dL
[2023-01-19] MEDS: HYDROcodone/APAP 10-325MG 1 EACH TAB PO PRN (15:51)
[2023-01-19] MEDS: LACTATED RINGERS 1,000 ML IV SCH (17:36)
[2023-01-19 18:16] LABS: Anisocytosis Slight; Basophils % (A) 0 %; Eosinophils # (A) 0.1 k/uL (0-0.7); Eosinophils % (A) 1 %; HCT 25.8 % (34.0-46.0); HGB 7.8 gm/dL (11.4-16.0); Hypochromasia Marked; Lymphocytes # (A) 0.8 k/uL (1.0-4.8); Lymphocytes % (A) 9 %; MCH 28.8 pg (25.0-35.0); MCHC 30.1 g/dL (31.0-37.0); MCV 95.7 fL (80.0-100.0); Macrocytosis Slight; Mean Platelet Volume 9.9; Monocytes # (A) 0.7 k/uL (0-1.0); Monocytes % (A) 8 %; Neutrophils # (A) 6.9 k/uL (1.3-7.7); Neutrophils % (A) 79 %; Platelet Count 197 k/uL (150-450); RBC 2.69 m/uL (3.80-5.40); RDW 18.2 % (11.5-15.5); WBC 8.8 k/uL (3.8-10.6)
[2023-01-19] MEDS: ATORVASTATIN 40 MG TAB PO SCH (21:18)
[2023-01-20 08:48] LABS: Basophils # (A) 0.01 X 10*3/uL (0.00-0.10); Basophils % (A) 0.2 %; Eosinophils # (A) 0.13 X 10*3/uL (0.04-0.35); Eosinophils % (A) 2.4 %; HCT 22.7 % (37.2-46.3); HGB 6.9 d/dL (12.0-15.0); Lymphocytes # (A) 0.81 X 10*3/uL (0.90-5.00); Lymphocytes % (A) 14.9 %; MCH 28.5 pg (27.0-32.0); MCHC 30.4 d/dL (32.0-37.0); MCV 93.8 FL (80.0-97.0); Mean Platelet Volume 12.2 FL (9.5-12.2); Monocytes # (A) 0.62 X 10*3/uL (0.20-1.00); Monocytes % (A) 11.4 %; NRBC Per 100 WBC 0 X 10*3/uL (0.00-0.01); Neutrophils # (A) 3.84 X 10*3/uL (1.80-7.70); Neutrophils % (A) 70.7 %; Platelet Count 202 X 10*3/uL (140-440); RBC 2.42 X 10*6/uL (4.10-5.20); RDW 18.7 % (11.5-14.5); WBC 5.43 X 10*3/uL (4.50-10.00)
[2023-01-20 08:58] LABS: African American GFR (CKD) 25 (>60 ml/min/1.73 sqM); Anion Gap 11 mmol/L; Blood Urea Nitrogen 78 mg/dL (7-17); Calcium 8.6 mg/dL (8.4-10.2); Carbon Dioxide 20 mmol/L (22-30); Chloride 100 mmol/L (98-107); Glucose 117 mg/dL (74-99); Non-African American GFR(CKD) 22 (>60 ml/min/1.73 sqM); Potassium 3.9 mmol/L (3.5-5.1); Sodium 131 mmol/L (137-145)
[2023-01-20] MEDS: SYMBICORT 160-4.5 MCG INHALER INHALATION SCH ×2 (08:59→20:17)
[2023-01-20] MEDS: CYANOCOBALAMIN 500 MCG TAB PO SCH (09:58)
[2023-01-20] MEDS: PANTOPRAZOLE 40 MG/10 ML VIAL IVP SCH ×2 (09:58→20:07)
[2023-01-20] MEDS: GABAPENTIN 300 MG CAP PO SCH ×3 (09:59→20:07)
[2023-01-20] MEDS: CHOLECALCIFEROL 125 MCG (5000 IU) TABLET PO SCH (09:59)
[2023-01-20] MEDS: MONTELUKAST 10 MG TAB PO SCH (09:59)
[2023-01-20] MEDS: methIMAzole 5 MG TAB PO SCH (09:59)
[2023-01-20] MEDS: ASCORBIC ACID 500 MG TAB PO SCH (10:00)
[2023-01-20] MEDS: metOLazone 5 MG TAB PO SCH (10:00)
[2023-01-20] MEDS: LACTOBACILLUS ACIDOPHILUS/PECT 1 EACH CAPSULE PO SCH (10:01)
[2023-01-20] MEDS: DULoxetine HCL 60 MG CAPSULE.DR PO SCH (10:01)
[2023-01-20] MEDS: METOPROLOL TARTRATE 50 MG TAB PO SCH ×2 (10:01→20:07)
[2023-01-20] MEDS: LETROZOLE 2.5 MG TAB PO SCH (10:02)
[2023-01-20] MEDS: AMIODARONE 200 MG TAB PO SCH ×2 (10:02→20:07)
[2023-01-20] MEDS: FUROSEMIDE 40 MG TAB PO SCH (10:02)
[2023-01-20 11:31] LABS: Basophils # (A) 0.03 X 10*3/uL (0.00-0.10); Basophils % (A) 0.4 %; Eosinophils # (A) 0.14 X 10*3/uL (0.04-0.35); HCT 24.5 % (37.2-46.3); HGB 7.4 d/dL (12.0-15.0); Lymphocytes # (A) 0.71 X 10*3/uL (0.90-5.00); Lymphocytes % (A) 10.2 %; MCH 28.4 pg (27.0-32.0); MCHC 30.2 d/dL (32.0-37.0); MCV 93.9 FL (80.0-97.0); Monocytes # (A) 0.74 X 10*3/uL (0.20-1.00); Monocytes % (A) 10.6 %; NRBC Per 100 WBC 0 X 10*3/uL (0.00-0.01); Neutrophils # (A) 5.32 X 10*3/uL (1.80-7.70); Neutrophils % (A) 76.1 %; Platelet Count 214 X 10*3/uL (140-440); RBC 2.61 X 10*6/uL (4.10-5.20); RDW 18.8 % (11.5-14.5); WBC 6.99 X 10*3/uL (4.50-10.00)
--- NOTE | 2023-01-20 13:11 | P.PN ---
Subjective Progress Note Date: 01/20/23 CHIEF COMPLAINT: Weakness HISTORY OF PRESENT ILLNESS: Patient status post EGD with biopsy. EGD results s howed antral gastritis and bleeding gastric polyp. Patient denies any abdominal pain. Patient reports that her stools are black but more formed. Denies any nausea or vomiting. She does remain on oral iron. Afebrile. Hgb did go down from 7.8-6.9 PHYSICAL EXAM: VITAL SIGNS: Reviewed. GENERAL: Well-developed in no acute distress. ABDOMEN: Soft. Nondistended. Nontender ASSESSMENT: 1. Anemia status post EGD with antral gastritis and bleeding gastric polyp 2. History of iron deficiency anemia 3. History of atrial fibrillation on Eliquis PLAN: -Agree with blood transfusion for hemoglobin 6.9 -Continue regular diet -Continue PPI -Continue to monitor hemoglobin -Continue to hold Eliquis -Patient can be discharged from surgical standpoint when medically stable Physician Mill [employer]iler note has been reviewed by physician. Signing provider agrees with the documented findings, assessment, and plan of care. Objective - Vital Signs Vital signs: Vital Signs Temp 97.4 F L 01/20/23 08:00 Pulse 57 L 01/20/23 08:00 Resp 17 01/20/23 08:00 BP 113/57 01/20/23 08:00 Pulse Ox 96 01/20/23 08:00 FiO2 Intake & Output 01/19/23 01/20/23 01/20/23 18:59 06:59 18:59 Intake Total 210 120 120 Output Total 1 201 Balance 209 -81 120 Intake: Oral 210 120 120 Output: Urine 200 Stool 1 1 Other: Voiding Method Bedside Commode # Voids 1 2 - Labs CBC & Chem 7: 01/20/23 08:19 01/20/23 08:19 Labs: Abnormal Lab Results - Last 24 Hours (Table) 01/19/23 01/20/23 01/20/23 Range/Units 17:57 04:51 08:19 RBC 2.69 L 2.42 L (3.80-5.40) m/uL Hgb 7.8 L 6.9 H* (11.4-16.0) gm/dL Hct 25.8 L 22.7 L (34.0-46.0) % MCHC 30.1 L 30.4 L (31.0-37.0) g/dL RDW 18.2 H 18.7 H (11.5-15.5) % Lymphocytes # 0.8 L 0.81 L (1.0-4.8) k/uL Sodium 131 L (137-145) mmol/L Carbon Dioxide 20 L (22-30) mmol/L BUN 78 H (7-17) mg/dL Creatinine 2.26 H (0.52-1.04) mg/dL Glucose 117 H (74-99) mg/dL
[2023-01-20] MEDS: FERROUS SULFATE 325 MG TAB PO SCH (13:32)
[2023-01-20] MEDS: ONDANSETRON 4 MG TAB PO PRN (15:27)
[2023-01-20] MEDS: LACTATED RINGERS 1,000 ML IV SCH (15:28)
--- NOTE | 2023-01-20 16:29 | P.PN ---
Subjective Progress Note Date: 01/20/23 Hospital Course: 67-year-old female with history of A. fib and COPD on 2-3 L around the clock, A. fib on Eliquis, CAD status post CABG, hypertension, dyslipidemia, insulin- dependent diabetes, history of polio with right-sided neuropathy/deficits presenting with worsening right-sided weakness and overall generalized weakness. In the ED, temperature is 98.6, pulse 60, respiratory rate 20, blood pressure 106/93, saturating at 98% on 4 L. WBC 7.9, hemoglobin 9.2 from baseline, sodium 135, creatinine 1.16 around baseline, lactate 2.1 improved to 1.3, AST 97, chronically elevated, negative troponin. EKG shows sinus rhythm with right bundle branch block. Chest x-ray shows slightly worsening interstitial opacities. Patient admitted for progressive weakness, debility, difficulty am bulating. Pending physical therapy evaluation and likely discharged to a rehab facility. Patient did complain of further neurological symptoms such as diplopia and headaches. CT head and CT angiogram of head and neck did not show any acute process. She did have episode of hematemesis, surgery has been consulted. EGD completed, shows antral gastritis, bleeding gastric polyp, biopsies taken. Renal function slightly worsening. Patient also has hyperthyroidism possibly contributing to diarrhea. Started on methimazole. Subjective: Patient seen and examined at bedside. No acute events overnight. Feeling a lot better, not as lethargic. Still having melena. Gen: awake, alert HEENT: normocephalic, atraumatic, good hearing acuity, moist mucous membranes Resp: good air exchange, breathing comfortably with no accessory muscle use CVS: good distal perfusion x 4, GI: soft, NTTP, ND : no SPT, no CVAT, stacy catheter not present MSK: no pitting edema, no clubbing Neuro: non-focal, moving all extremities Psych: cooperative, euthymic mood Data reviewed: Hemoglobin 6.9, sodium 131, creatinine 2.26 Assessment and Plan: Acute blood loss anemia Upper GI bleed Antral gastritis Bleeding gastric polyp -Repeat CBC tomorrow -PPI twice a day -Eliquis currently on hold -Surgery note reviewed, stable for discharge from their standpoint -1 unit of prbcs transfuse Hyperthyroidism -Possibly amiodarone-induced -Started on methimazole Diarrhea -Possibly setting up hyperthyroidism -C. diff negative Acute kidney injury, nonoliguric, stable -Hold diuretics -Encourage oral intake -Repeat BMP, magnesium tomorrow Progressive weakness History of right leg weakness secondary to polio Debility -PT/OT Chronic: COPD on 2-3 L oxygen Atrial fibrillation CAD status post CABG Hypertension Dyslipidemia Insulin-dependent diabetes DVT ppx: Eliquis is on hold due to GI bleed Code status: Full code Anticipated discharge place: Subacute rehab Anticipated discharge time: likely tomorrow Objective - Vital Signs Vital signs: Vital Signs Temp 97.4 F L 01/20/23 08:00 Pulse 57 L 01/20/23 08:00 Resp 17 01/20/23 08:00 BP 113/57 01/20/23 08:00 Pulse Ox 96 01/20/23 08:00 FiO2 Intake & Output 01/19/23 01/20/23 01/20/23 18:59 06:59 18:59 Intake Total 210 120 120 Output Total 1 201 Balance 209 -81 120 Intake: Oral 210 120 120 Output: Urine 200 Stool 1 1 Other: Voiding Method Bedside Commode # Voids 1 2 - Labs CBC & Chem 7: 01/20/23 08:19 01/20/23 08:19 Labs: Abnormal Lab Results - Last 24 Hours (Table) 01/19/23 01/20/23 01/20/23 Range/Units 17:57 04:51 08:19 RBC 2.69 L 2.42 L 2.61 L (3.80-5.40) m/uL Hgb 7.8 L 6.9 H* 7.4 L (11.4-16.0) gm/dL Hct 25.8 L 22.7 L 24.5 L (34.0-46.0) % MCHC 30.1 L 30.4 L 30.2 L (31.0-37.0) g/dL RDW 18.2 H 18.7 H 18.8 H (11.5-15.5) % Lymphocytes # 0.8 L 0.81 L 0.71 L (1.0-4.8) k/uL Sodium (137-145) mmol/L Carbon Dioxide (22-30) mmol/L BUN (7-17) mg/dL Creatinine (0.52-1.04) mg/dL Glucose (74-99) mg/dL Crossmatch 01/20/23 01/20/23 Range/Units 08:19 10:01 RBC (3.80-5.40) m/uL Hgb (11.4-16.0) gm/dL Hct (34.0-46.0) % MCHC (31.0-37.0) g/dL RDW (11.5-15.5) % Lymphocytes # (1.0-4.8) k/uL Sodium 131 L (137-145) mmol/L Carbon Dioxide 20 L (22-30) mmol/L BUN 78 H (7-17) mg/dL Creatinine 2.26 H (0.52-1.04) mg/dL Glucose 117 H (74-99) mg/dL Crossmatch See Detail
[2023-01-20] MEDS: ATORVASTATIN 40 MG TAB PO SCH (20:07)
[2023-01-21] MEDS: HYDROcodone/APAP 10-325MG 1 EACH TAB PO PRN (01:48)
[2023-01-21 05:57] LABS: Anisocytosis Slight; HCT 25.8 % (34.0-46.0); HGB 8.1 gm/dL (11.4-16.0); Hypochromasia Marked; MCH 28.9 pg (25.0-35.0); MCHC 31.5 g/dL (31.0-37.0); MCV 91.8 fL (80.0-100.0); Mean Platelet Volume 10.1; Platelet Count 191 k/uL (150-450); Poikilocytosis Slight; RBC 2.81 m/uL (3.80-5.40); RDW 17.9 % (11.5-15.5); WBC 6.8 k/uL (3.8-10.6)
[2023-01-21 06:03] LABS: African American GFR (CKD) 21 (>60 ml/min/1.73 sqM); Anion Gap 10 mmol/L; Blood Urea Nitrogen 76 mg/dL (7-17); Calcium 8.4 mg/dL (8.4-10.2); Carbon Dioxide 21 mmol/L (22-30); Chloride 98 mmol/L (98-107); Glucose 103 mg/dL (74-99); Non-African American GFR(CKD) 18 (>60 ml/min/1.73 sqM); Potassium 4.2 mmol/L (3.5-5.1); Sodium 129 mmol/L (137-145)
[2023-01-21 08:34] LABS: Eosinophils # (M) 0.14 k/uL (0-0.7); Lymphocytes # (M) 0.54 k/uL (1.0-4.8); Monocytes # (M) 0.61 k/uL (0-1.0); Neutrophils # (M) 5.51 k/uL (1.3-7.7); Neutrophils % (M) 81 %; Nucleated Red Blood Cells 0 /100 WBC (0-0); Total Cells Counted 100
[2023-01-21] MEDS: SYMBICORT 160-4.5 MCG INHALER INHALATION SCH ×2 (08:48→19:16)
[2023-01-21] MEDS: CYANOCOBALAMIN 500 MCG TAB PO SCH (09:16)
[2023-01-21] MEDS: METOPROLOL TARTRATE 50 MG TAB PO SCH ×2 (09:16→19:52)
[2023-01-21] MEDS: ASCORBIC ACID 500 MG TAB PO SCH (09:16)
[2023-01-21] MEDS: GABAPENTIN 300 MG CAP PO SCH ×3 (09:16→22:52)
[2023-01-21] MEDS: LACTOBACILLUS ACIDOPHILUS/PECT 1 EACH CAPSULE PO SCH (09:16)
[2023-01-21] MEDS: CHOLECALCIFEROL 125 MCG (5000 IU) TABLET PO SCH (09:16)
[2023-01-21] MEDS: AMIODARONE 200 MG TAB PO SCH ×2 (09:16→19:52)
[2023-01-21] MEDS: DULoxetine HCL 60 MG CAPSULE.DR PO SCH (09:16)
[2023-01-21] MEDS: MONTELUKAST 10 MG TAB PO SCH (09:16)
[2023-01-21] MEDS: methIMAzole 5 MG TAB PO SCH (09:17)
[2023-01-21] MEDS: LETROZOLE 2.5 MG TAB PO SCH (09:17)
[2023-01-21] MEDS: PANTOPRAZOLE 40 MG/10 ML VIAL IVP SCH ×2 (09:17→19:52)
[2023-01-21] MEDS ORDERED: FUROSEMIDE 10 MG/ML 4 ML VIAL IV STA (10:47)
--- NOTE | 2023-01-21 11:15 | P.PN ---
Subjective Progress Note Date: 01/21/23 CHIEF COMPLAINT: Weakness HISTORY OF PRESENT ILLNESS: Patient status post EGD with biopsy. EGD results s howed antral gastritis and bleeding gastric polyp. Patient denies any abdominal pain. Patient denies any nausea or vomiting. She is tolerating diet. Her bowel movements remain black. She does take iron. WBC 6.8 Hgb 7.4 up to 8.1 platelets 191 sodium 129 and creatinine 2.64 PHYSICAL EXAM: VITAL SIGNS: Reviewed. GENERAL: Well-developed in no acute distress. ABDOMEN: Soft. Nondistended. Nontender ASSESSMENT: 1. Anemia status post EGD with antral gastritis and bleeding gastric polyp 2. History of iron deficiency anemia 3. History of atrial fibrillation on Eliquis PLAN: -Patient can be discharged from surgical standpoint when medically stable -Continue regular diet -Continue PPI -Continue to hold Eliquis Physician Rail[employer] Assistant note has been reviewed by physician. Signing provider agrees with the documented findings, assessment, and plan of care. Objective - Vital Signs Vital signs: Vital Signs Temp 97.8 F 01/21/23 07:47 Pulse 59 L 01/21/23 07:47 Resp 16 01/21/23 07:47 BP 94/55 01/21/23 07:47 Pulse Ox 94 L 01/21/23 07:47 FiO2 Intake & Output 01/20/23 01/21/23 01/21/23 18:59 06:59 18:59 Intake Total 120 310 Output Total 4 1 Balance 120 306 -1 Intake: Oral 120 Blood Product 0 310 Rc Pheresis 2 As3 Unit 0 310 [id number] Output: Urine 2 Stool 2 1 Other: Voiding Method Bedside Commode # Voids 3 1 - Labs CBC & Chem 7: 01/21/23 05:15 01/21/23 05:15 Labs: Abnormal Lab Results - Last 24 Hours (Table) 01/20/23 01/20/23 01/21/23 Range/Units 08:19 10:01 05:15 RBC 2.61 L 2.81 L (4.10-5.20) X 10*6/uL Hgb 7.4 L 8.1 L (12.0-15.0) d/dL Hct 24.5 L 25.8 L (37.2-46.3) % MCHC 30.2 L (32.0-37.0) d/dL RDW 18.8 H 17.9 H (11.5-14.5) % Lymphocytes # 0.71 L (0.90-5.00) X 10*3/uL Lymphocytes # (Manual) 0.54 L (1.0-4.8) k/uL Sodium (137-145) mmol/L Carbon Dioxide (22-30) mmol/L BUN (7-17) mg/dL Creatinine (0.52-1.04) mg/dL Glucose (74-99) mg/dL Crossmatch See Detail 01/21/23 Range/Units 05:15 RBC (4.10-5.20) X 10*6/uL Hgb (12.0-15.0) d/dL Hct (37.2-46.3) % MCHC (32.0-37.0) d/dL RDW (11.5-14.5) % Lymphocytes # (0.90-5.00) X 10*3/uL Lymphocytes # (Manual) (1.0-4.8) k/uL Sodium 129 L (137-145) mmol/L Carbon Dioxide 21 L (22-30) mmol/L BUN 76 H (7-17) mg/dL Creatinine 2.64 H (0.52-1.04) mg/dL Glucose 103 H (74-99) mg/dL Crossmatch
[2023-01-21] MEDS: FERROUS SULFATE 325 MG TAB PO SCH (11:47)
[2023-01-21 13:41] VITALS: BMI 30.9
--- NOTE | 2023-01-21 14:50 | P.PN ---
Subjective Progress Note Date: 01/21/23 Hospital Course: 67-year-old female with history of A. fib and COPD on 2-3 L around the clock, A. fib on Eliquis, CAD status post CABG, hypertension, dyslipidemia, insulin- dependent diabetes, history of polio with right-sided neuropathy/deficits presenting with worsening right-sided weakness and overall generalized weakness. In the ED, temperature is 98.6, pulse 60, respiratory rate 20, blood pressure 106/93, saturating at 98% on 4 L. WBC 7.9, hemoglobin 9.2 from baseline, sodium 135, creatinine 1.16 around baseline, lactate 2.1 improved to 1.3, AST 97, chronically elevated, negative troponin. EKG shows sinus rhythm with right bundle branch block. Chest x-ray shows slightly worsening interstitial opacities. Patient admitted for progressive weakness, debility, difficulty ambulating. Pending physical therapy evaluation and likely discharged to a rehab facility. Patient did complain of further neurological symptoms such as diplopia and headaches. CT head and CT angiogram of head and neck did not show any acute process. She did have episode of hematemesis, surgery has been c onsulted. EGD completed, shows antral gastritis, bleeding gastric polyp, biopsies taken. Renal function slightly worsening. Patient also has hyperthyroidism possibly contributing to diarrhea. Started on methimazole. Subjective: Patient seen and examined at bedside. No acute events overnight. Feeling a lot better, not as lethargic. Gen: awake, alert HEENT: normocephalic, atraumatic, good hearing acuity, moist mucous membranes Resp: good air exchange, breathing comfortably with no accessory muscle use CVS: good distal perfusion x 4, GI: soft, NTTP, ND : no SPT, no CVAT, stacy catheter not present MSK: no pitting edema, no clubbing Neuro: non-focal, moving all extremities Psych: cooperative, euthymic mood Data reviewed: Hemoglobin 8.1, sodium 129, bicarb 21, creatinine 2.64 Assessment and Plan: Acute blood loss anemia Upper GI bleed Antral gastritis Bleeding gastric polyp -PPI twice a day -Eliquis currently on hold -Surgery note reviewed, stable for discharge from their standpoint -1 unit of prbcs transfuse yesterday Hyperthyroidism -Possibly amiodarone-induced -Started on methimazole Diarrhea -Possibly setting up hyperthyroidism -C. diff negative Acute kidney injury, nonoliguric, slightly worsening Hyponatremia, likely hypervolemic Patient has history of diastolic heart failure -Restarted IV Lasix -Encourage oral intake -Repeat BMP, magnesium tomorrow Progressive weakness History of right leg weakness secondary to polio Debility -PT/OT Chronic: COPD on 2-3 L oxygen Atrial fibrillation CAD status post CABG Hypertension Dyslipidemia Insulin-dependent diabetes DVT ppx: Eliquis is on hold due to GI bleed Code status: Full code Anticipated discharge place: Subacute rehab Anticipated discharge time: likely tomorrow Objective - Vital Signs Vital signs: Vital Signs Temp 97.8 F 01/21/23 07:47 Pulse 59 L 01/21/23 07:47 Resp 16 01/21/23 07:47 BP 94/55 01/21/23 07:47 Pulse Ox 94 L 01/21/23 07:47 FiO2 Intake & Output 01/20/23 01/21/23 01/21/23 18:59 06:59 18:59 Intake Total 120 310 Output Total 4 1 Balance 120 306 -1 Weight 87.09 kg Intake: Oral 120 Blood Product 0 310 Rc Pheresis 2 As3 Unit 0 310 [id number] Output: Urine 2 Stool 2 1 Other: Voiding Method Bedside Commode # Voids 3 1 - Labs CBC & Chem 7: 01/21/23 05:15 01/21/23 05:15 Labs: Abnormal Lab Results - Last 24 Hours (Table) 01/20/23 01/21/23 01/21/23 Range/Units 10:01 05:15 05:15 RBC 2.81 L (3.80-5.40) m/uL Hgb 8.1 L (11.4-16.0) gm/dL Hct 25.8 L (34.0-46.0) % RDW 17.9 H (11.5-15.5) % Lymphocytes # (Manual) 0.54 L (1.0-4.8) k/uL Sodium 129 L (137-145) mmol/L Carbon Dioxide 21 L (22-30) mmol/L BUN 76 H (7-17) mg/dL Creatinine 2.64 H (0.52-1.04) mg/dL Glucose 103 H (74-99) mg/dL Crossmatch See Detail
[2023-01-21] MEDS: LACTATED RINGERS 1,000 ML IV SCH (16:13)
[2023-01-21] MEDS: ATORVASTATIN 40 MG TAB PO SCH (19:52)
[2023-01-22 06:09] LABS: African American GFR (CKD) 27 (>60 ml/min/1.73 sqM); Anion Gap 9 mmol/L; Blood Urea Nitrogen 73 mg/dL (7-17); Calcium 8.8 mg/dL (8.4-10.2); Carbon Dioxide 22 mmol/L (22-30); Chloride 101 mmol/L (98-107); Glucose 105 mg/dL (74-99); Magnesium 2.4 mg/dL (1.6-2.3); Non-African American GFR(CKD) 24 (>60 ml/min/1.73 sqM); Potassium 4.1 mmol/L (3.5-5.1); Sodium 132 mmol/L (137-145)
[2023-01-22 08:24] VITALS: BP 95/48; PULSE 54; RESP 17; TEMP 98.3
[2023-01-22] MEDS: SYMBICORT 160-4.5 MCG INHALER INHALATION SCH (09:31)
[2023-01-22] MEDS: METOPROLOL TARTRATE 50 MG TAB PO SCH (09:46)
[2023-01-22] MEDS ORDERED: METOPROLOL TARTRATE 25 MG TAB PO STA (09:47)
--- NOTE | 2023-01-22 09:58 | P.DS ---
Providers Date of admission: 01/14/23 12:22 Expected date of discharge: 01/22/23 Attending physician: Kashif Rodriguez MD Consults: 01/17/23 11:25 Consult Physician Routine Consulting Provider: Jaskaran Son Consult Reason/Comments: Hematemesis Do you want consulting provider notified?: Already Contacted Primary care physician: Teja Lozano MD Hospital Course: Discharge Diagnosis: Acute blood loss anemia Upper GI bleed Antral gastritis Bleeding gastric polyp Hyperthyroidism Acute kidney injury, nonoliguric Hyponatremia, likely hypervolemic History of diastolic heart failure Progressive weakness History of right leg weakness secondary to polio Debility COPD on 2-3 L oxygen Atrial fibrillation CAD status post CABG Hypertension Dyslipidemia Insulin-dependent diabetes Hospital Course: 67-year-old female with history of A. fib and COPD on 2-3 L around the clock, A. fib on Eliquis, CAD status post CABG, hypertension, dyslipidemia, insulin- dependent diabetes, history of polio with right-sided neuropathy/deficits presenting with worsening right-sided weakness and overall generalized weakness. In the ED, temperature is 98.6, pulse 60, respiratory rate 20, blood pressure 106/93, saturating at 98% on 4 L. WBC 7.9, hemoglobin 9.2 from baseline, sodium 135, creatinine 1.16 around baseline, lactate 2.1 improved to 1.3, AST 97, chronically elevated, negative troponin. EKG shows sinus rhythm with right bundle branch block. Chest x-ray shows slightly worsening interstitial opacities. Patient admitted for progressive weakness, debility, difficulty ambulating. Patient did complain of further neurological symptoms such as diplopia and headaches. CT head and CT angiogram of head and neck did not show any acute process. She did have episode of hematemesis, surgery has been consulted. EGD completed, shows antral gastritis, bleeding gastric polyp, biopsies taken. Renal function slightly worsening. Improved with diuretics. Patient also has hyperthyroidism possibly contributing to diarrhea. Started on methimazole. Hemoglobin has been stable. Eliquis held. Communicated plan of care with her PCP. Eliquis will be restarted if hemoglobin stays stable in the outpatient setting. Patient seen and examined at bedside. Vital signs reviewed and stable. General: nontoxic, no distress, appears at stated age Derm: warm, dry Head: atraumatic, normocephalic, symmetric Eyes: EOMI, no lid lag, anicteric sclera, pupils equal round reactive to light ENT: Nose and ears atraumatic Neck: No thyromegaly, supple Mouth: no lip lesion, mucus membranes moist Cardiovascular: S1S2 reg, no murmur, no edema Lungs: clear to auscultation bilateral, no rhonchi, no rales, no wheeze, no accessory muscle use Abdominal: soft, nontender to palpation, no guarding, no appreciable organomegaly Ext: 3/5 strength on the right Neuro: CN II-XII grossly intact Psych: Alert, oriented, appropriate affect A total of 33 minutes of time were spent preparing this complex discharge summary. Patient was discharged on 01/22/23 at 9:32. Patient Condition at Discharge: Stable Plan - Discharge Summary New Discharge Prescriptions: New RX: HYDROcodone/APAP 10-325MG [S[place]uma 10-325] 1 each PO Q6H PRN #10 tab PRN Reason: Pain RX: Metoprolol Tartrate [Lopressor] 25 mg PO BID tab RX: methIMAzole [Tapazole] 10 mg PO DAILY tab Continue RX: DULoxetine HCL [Cymbalta] 60 mg PO QAM RX: Atorvastatin [Lipitor] 40 mg PO HS RX: Budesonide-Formot 160-4.5 Mcg [Symbicort 160-4.5 Mcg Inhaler] 2 puff INHALATION RT-BID RX: Letrozole [Femara] 2.5 mg PO QAM RX: Biotin [Biotin Disolve] 10,000 mcg PO QAM RX: Cholecalciferol [Vitamin D3 (125 Mcg = 5000 Iu)] 125 mcg PO QAM RX: Cyanocobalamin (Vitamin B-12) [Vitamin B-12] 2,000 mcg PO QAM RX: Albuterol Inhaler [Ventolin Hfa Inhaler] 2 puff INHALATION RT-QID PRN PRN Reason: Shortness Of Breath RX: Furosemide [Lasix] 40 mg PO BID@0900,1600 #60 tab RX: Lactobacillus Acidophilus [Acidophilus Probiotic] 1 cap PO QAM RX: Simethicone Chew [Mylicon Chew] 80 mg PO QID PRN tab PRN Reason: Bloating RX: Pantoprazole [Protonix] 40 mg PO BID tab RX: Chlorhexidine Gluconate [Peridex] 15 ml PO BID RX: Montelukast [Singulair] 10 mg PO QAM RX: Gabapentin 600 mg PO TID RX: Ferrous Sulfate [Iron (65 MG Elemental)] 325 mg PO W/LUNCH #60 tab RX: Amiodarone [Cordarone] 200 mg PO BID RX: Ondansetron Odt [Zofran ODT] 4 mg PO Q8HR PRN #30 tab PRN Reason: Nausea And Vomiting RX: Ubidecarenone [Coenzyme Q10] 200 mg PO QAM RX: Acetaminophen Tab [Tylenol] 650 mg PO Q6HR PRN tab PRN Reason: Fever And/ Or Pain RX: Ascorbic Acid [Vitamin C] 250 mg PO DAILY Discontinued RX: Metoprolol Tartrate [Lopressor] 50 mg PO BID RX: Apixaban [Eliquis] 5 mg PO BID RX: HYDROcodone/APAP 10-325MG [[place] 10-325] 1 tab PO Q6H metOLazone [Zaroxolyn] 5 mg PO DAILY Discharge Medication List RX: Atorvastatin [Lipitor] 40 mg PO HS 03/23/16 [History] RX: DULoxetine HCL [Cymbalta] 60 mg PO QAM 03/23/16 [History] RX: Montelukast [Singulair] 10 mg PO QAM 05/18/21 [History] RX: Gabapentin 600 mg PO TID 06/29/21 [History] RX: Budesonide-Formot 160-4.5 Mcg [Symbicort 160-4.5 Mcg Inhaler] 2 puff INHALATION RT-BID 04/06/22 [History] RX: Biotin [Biotin Disolve] 10,000 mcg PO QAM 09/03/22 [History] RX: Letrozole [Femara] 2.5 mg PO QAM 09/03/22 [History] RX: Cholecalciferol [Vitamin D3 (125 Mcg = 5000 Iu)] 125 mcg PO QAM 09/06/22 [History] RX: Cyanocobalamin (Vitamin B-12) [Vitamin B-12] 2,000 mcg PO QAM 09/06/22 [History] RX: Ferrous Sulfate [Iron (65 MG Elemental)] 325 mg PO W/LUNCH #60 tab 09/09/22 [Rx] RX: Albuterol Inhaler [Ventolin Hfa Inhaler] 2 puff INHALATION RT-QID PRN 11/10/22 [History] RX: Amiodarone [Cordarone] 200 mg PO BID 11/10/22 [History] RX: Ondansetron Odt [Zofran ODT] 4 mg PO Q8HR PRN #30 tab 11/11/22 [Rx] RX: Furosemide [Lasix] 40 mg PO BID@0900,1600 #60 tab 11/22/22 [Rx] RX: Lactobacillus Acidophilus [Acidophilus Probiotic] 1 cap PO QAM 11/29/22 [History] RX: Ubidecarenone [Coenzyme Q10] 200 mg PO QAM 11/29/22 [History] RX: Acetaminophen Tab [Tylenol] 650 mg PO Q6HR PRN tab 12/07/22 [Rx] RX: Pantoprazole [Protonix] 40 mg PO BID tab 12/07/22 [Rx] RX: Simethicone Chew [Mylicon Chew] 80 mg PO QID PRN tab 12/07/22 [Rx] RX: Ascorbic Acid [Vitamin C] 250 mg PO DAILY 01/14/23 [History] RX: Chlorhexidine Gluconate [Peridex] 15 ml PO BID 01/14/23 [History] RX: HYDROcodone/APAP 10-325MG [S[place]uma 10-325] 1 each PO Q6H PRN #10 tab 01/22/23 [Rx] RX: Metoprolol Tartrate [Lopressor] 25 mg PO BID tab 01/22/23 [Rx] RX: methIMAzole [Tapazole] 10 mg PO DAILY tab 01/22/23 [Rx] Follow up Appointment(s)/Referral(s): Teja Lozano MD [Primary Care Provider] - 1-2 days Patient Instructions/Handouts: Gastrointestinal Bleeding (DC), Hyperthyroidism (DC) Activity/Diet/Wound Care/Special Instructions: Please see your PCP. Discharge Disposition: TRANSFER TO SNF/F
[2023-01-22] MEDS: ASCORBIC ACID 500 MG TAB PO SCH (09:59)
[2023-01-22] MEDS: CHOLECALCIFEROL 125 MCG (5000 IU) TABLET PO SCH (09:59)
[2023-01-22] MEDS: LACTOBACILLUS ACIDOPHILUS/PECT 1 EACH CAPSULE PO SCH (09:59)
[2023-01-22] MEDS: DULoxetine HCL 60 MG CAPSULE.DR PO SCH (09:59)
[2023-01-22] MEDS: MONTELUKAST 10 MG TAB PO SCH (09:59)
[2023-01-22] MEDS: GABAPENTIN 300 MG CAP PO SCH (09:59)
[2023-01-22] MEDS: CYANOCOBALAMIN 500 MCG TAB PO SCH (09:59)
[2023-01-22] MEDS: LETROZOLE 2.5 MG TAB PO SCH (10:03)
[2023-01-22] MEDS: methIMAzole 5 MG TAB PO SCH (10:03)
[2023-01-22] MEDS: AMIODARONE 200 MG TAB PO SCH (10:04)
[2023-01-22] MEDS: PANTOPRAZOLE 40 MG/10 ML VIAL IVP SCH (10:57)
== END 2023-01-22 11:55 | DRG 884 ==
LOC: SUPCPDRO 08:54 → EC 08:54 → OBSVTOIN 12:22 → 6NMEDSUR 12:22
PROVIDERS: ADMIT Family Medicine; ATTEND Family Medicine
PROC: 0DB68ZX Excision of Stomach, Via Natural or Artificial Opening Endoscopic, Diagnostic (ICD-10-PCS; 2023-01-18)
PROC: 0DB78ZX Excision of Stomach, Pylorus, Via Natural or Artificial Opening Endoscopic, Diagnostic (ICD-10-PCS; principal; 2023-01-18 07:30)
PROC: 30233N1 Transfusion of Nonautologous Red Blood Cells into Peripheral Vein, Percutaneous Approach (ICD-10-PCS; 2023-01-20)
PROC: 6A550Z2 Pheresis of Platelets, Single (ICD-10-PCS; 2023-01-21)
DX: R54 Age-related physical debility (principal); K29.51 Unspecified chronic gastritis with bleeding; D62 Acute posthemorrhagic anemia; N17.9 Acute kidney failure, unspecified; J96.11 Chronic respiratory failure with hypoxia; I50.32 Chronic diastolic (congestive) heart failure; E87.20 Acidosis, unspecified; E87.1 Hypo-osmolality and hyponatremia; I27.20 Pulmonary hypertension, unspecified; I11.0 Hypertensive heart disease with heart failure; E11.42 Type 2 diabetes mellitus with diabetic polyneuropathy; J44.9 Chronic obstructive pulmonary disease, unspecified; Z99.81 Dependence on supplemental oxygen; E05.90 Thyrotoxicosis, unspecified without thyrotoxic crisis or storm; I07.1 Rheumatic tricuspid insufficiency; D50.9 Iron deficiency anemia, unspecified; I25.10 Atherosclerotic heart disease of native coronary artery without angina pectoris; E78.5 Hyperlipidemia, unspecified; I45.10 Unspecified right bundle-branch block; R74.01 Elevation of levels of liver transaminase levels; K57.90 Diverticulosis of intestine, part unspecified, without perforation or abscess without bleeding; B91 Sequelae of poliomyelitis; E87.6 Hypokalemia; H53.2 Diplopia; R19.7 Diarrhea, unspecified; K21.9 Gastro-esophageal reflux disease without esophagitis; K31.7 Polyp of stomach and duodenum; Z95.1 Presence of aortocoronary bypass graft; Z87.891 Personal history of nicotine dependence; Z85.3 Personal history of malignant neoplasm of breast; Z79.899 Other long term (current) drug therapy; Z79.01 Long term (current) use of anticoagulants; Z79.51 Long term (current) use of inhaled steroids; Z88.5 Allergy status to narcotic agent; Z88.2 Allergy status to sulfonamides; Z88.0 Allergy status to penicillin; Z91.048 Other nonmedicinal substance allergy status; Z90.49 Acquired absence of other specified parts of digestive tract
CPT/HCPCS: 36415; 43239; 51702; 70450; 70496; 70498; 71046; 76770; 80048; 80053; 81001; 83605; 83735; 83880; 84439; 84443; 84484; 85025; 85027; 85610; 85730; 86850; 86900; 86901; 86920; 87324; 88305; 93005; 94640; 94760; 99285

== ENCOUNTER → 2023-01-28 | Outpatient (CLI) | payer OTHER ==
--- NOTE | 2023-01-29 06:43 | CA ---
Transthoracic Echo Report Name: Shelby Robison Age: 67 Gender: F : 1955 Exam Date: 01/28/2023 13:06 Exam Location: [facility] Ht (in): 66 Wt (lb): 181 Ordering Physician: Teja Lozano MD Attending/Referring Phys: Logistics Assistant Estelita Headley [facility] Procedure CPT: Indications: R94.31 ABNORMAL ELECTROCARDIOGRAM Cardiac Hx: Technical Quality: Technically difficult study Contrast 1: Total Dose (mL): Contrast 2: Total Dose (mL): MEASUREMENTS (Male / Female) Normal Values 2D ECHO LV Diastolic Diameter PLAX 4.8 cm 4.2 - 5.9 / 3.9 - 5.3 cm LV Systolic Diameter PLAX 3.2 cm IVS Diastolic Thickness 0.8 cm 0.6 - 1.0 / 0.6 - 0.9 cm LVPW Diastolic Thickness 0.9 cm 0.6 - 1.0 / 0.6 - 0.9 cm LV Relative Wall Thickness 0.4 LVOT Diameter 2.0 cm LA Volume 76.3 cm??? 18 - 58 / 22 - 52 cm??? LA Volume Index 38.5 cm???/m??? 16 - 28 cm???/m??? Ascending Aorta Diameter 3.1 cm M-MODE Aortic Root Diameter MM 2.9 cm LA Systolic Diameter MM 4.8 cm LA Ao Ratio MM 1.7 AV Cusp Separation MM 1.9 cm DOPPLER AV Peak Velocity 149.3 cm/s AV Peak Gradient 8.9 mmHg AV Mean Velocity 111.7 cm/s AV Mean Gradient 5.4 mmHg AV Velocity Time Integral 36.6 cm LVOT Peak Velocity 127.0 cm/s LVOT Peak Gradient 6.5 mmHg LVOT Velocity Time Integral 34.3 cm LVOT Stroke Volume 106.0 cm??? LVOT Stroke Volume Index 55.3 ml/m??? LVOT Cardiac Index 4606.7 cm???/min???m??? AV Area Cont Eq vti 2.9 cm??? AV Area Cont Eq pk 2.6 cm??? Mitral E Point Velocity 99.8 cm/s Mitral A Point Velocity 73.4 cm/s Mitral E to A Ratio 1.4 MV Deceleration Time 172.7 ms LV E' Lateral Velocity 12.6 cm/s Mitral E to LV E' Lateral Ratio 7.9 LV E' Septal Velocity 7.1 cm/s Mitral E to LV E' Septal Ratio 14.1 TR Peak Velocity 288.8 cm/s TR Peak Gradient 33.4 mmHg Right Atrial Pressure 8.0 mmHg Pulmonary Artery Systolic Pressu 41.4 mmHg Right Ventricular Systolic Press 41.4 mmHg FINDINGS Left Ventricle Left ventricular wall thickness normal. Left ventricular cavity size normal. Normal left ventricular systolic function with no obvious regional wall motion abnormalities. Left ventricular ejection fraction is estimated at 55-60%. Right Ventricle Severe right ventricular dilatation. Mildly reduced right ventricular global systolic function. Moderate pulmonary hypertension. Right Atrium Mild right atrial dilatation. Left Atrium Moderately increased left atrial volume. Mildly increased left atrial area. Mitral Valve Mitral valve thickened. Mild mitral regurgitation. Aortic Valve Trileaflet aortic valve. No aortic valve stenosis or regurgitation. Tricuspid Valve Structurally normal tricuspid valve. Moderate tricuspid regurgitation. Pulmonic Valve Structurally normal pulmonic valve. Mild pulmonic regurgitation. Pericardium No pericardial effusion. Aorta Normal size aortic root and proximal ascending aorta. CONCLUSIONS Normal LV size and systolic function Enlarged right ventricle with evidence of pressure overload, elevated right- sided pressures Left atrial enlargement Previewed by: Dr. Don Galvan MD (Electronically Signed) Final Date: 29 January 2023 06:42
== END | disposition home or self-care (01) ==
LOC: RADECHMAIN 12:59
PROVIDERS: ATTEND Emergency Medicine
DX: I51.7 Cardiomegaly (principal); R94.31 Abnormal electrocardiogram [ECG] [EKG]
CPT/HCPCS: 93306

== ENCOUNTER → 2023-02-04 | Outpatient (CLI) | payer OTHER ==
[2023-02-04 15:55] VITALS: BP 121/58; PULSE 71; RESP 18; TEMP 98.3
--- NOTE | 2023-02-07 10:43 | MM ---
Reason for Exam: Hx of breast cancer, conservation therapy. Last screening mammogram was performed 12 month(s) ago. Patient History: Menarche at age 8. First Full-Term at age 18. Left ovary removed at age 54. Postmenopausal. Breast cancer, right, age 66. Breast cancer, right, age 66. 05/11/2022, Lumpectomy on the Right side. 05/11/2022, Malignant MG pre op needle loc RT on the right side. 02/12/2022, Malignant US biopsy breast VAD RT on the right side. Mother had breast cancer, age 55. Tissue Density: There are scattered fibroglandular densities. Findings: Analyzed By CAD. Postprocedural changes right breast with surgical clips present and MLO view. Benign-appearing bilateral calcific patient's. No new suspicious masses, calcifications or distortions. Overall Assessment: Benign, BI-RAD 2 Management: Screening Mammogram of both breasts in 1 year. Results were given to the patient verbally at the time of exam. Patient should continue monthly self-breast exams. A clinical breast exam by your physician is recommended on an annual basis. This exam should not preclude additional follow-up of suspicious palpable abnormalities. Note on Jennie scores and lifetime risk: 1. A Jennie score greater than 3% is considered moderate risk. If this is the case, consider specialist referral to assess eligibility for a risk reducing agent. 2. If overall lifetime risk for the development of breast cancer is 20% or higher, the patient may qualify for future screening with alternating mammogram and breast MRI. Electronically signed and approved by: Shay Nina DO
== END ==
LOC: WWCWWP 14:14
PROVIDERS: ATTEND Surgery
DX: Z85.3 Personal history of malignant neoplasm of breast (principal); Z88.5 Allergy status to narcotic agent; Z88.2 Allergy status to sulfonamides; Z88.0 Allergy status to penicillin; Z91.048 Other nonmedicinal substance allergy status; Z88.8 Allergy status to other drugs, medicaments and biological substances; Z87.891 Personal history of nicotine dependence
CPT/HCPCS: 77062; 77066

== ENCOUNTER → 2023-02-04 | Outpatient (CLI) | payer OTHER ==
--- NOTE | 2023-02-04 15:42 | P.PN ---
Subjective Progress Note Date: 02/04/23 Stage I a invasive ductal carcinoma right breast Shelby is a 66-year-old white female seen in consultation for Dr. 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 She underwent a bilateral screening mammogram on [id number] which revealed asymmetry in the right breast. This was followed by an ultrasound guided core biopsy on [id number]. This was a grade 2 invasive ductal carcinoma ER/MD positive HER-2/mayco negative. Patient does not feel any lumps masses or nodules of concern. This was found on a screening mammogram. She had never had any surgery on her breast in the past. She was not complaining of any recent trauma or infection in the breast. She is not complaining of any nipple discharge. The patient on 05-11-21 underwent a right breast lumpectomy via a Weldon pattern reduction mammoplasty. This was for a 13 mm invasive ductal carcinoma. Her margins were negative and sentinel node biopsy was negative. She saw a radiation therapy and was told she did not need radiation. She is taking letrazole. Bilateral mammogram 02-04-23 results pending She is not complaining of any new lumps masses or nodules of concern in either breast, she does have asymmetry of the breast with the left breast being larger than the right breast She has had 2 recent endoscopic procedures done at [facility] secondary to anemia; also had recent heart failure hospitalized for 2 weeks in December Caffeine: 1 can of pop/day nicotine: none; stopped 15 years ago for 28 years chocolate: occasional hormones: BCP-8 years Family history: mother: breast cancer at 55 Hormonal History: menarche: 8 , breast fed: no, age at first : 18 menopause: 48 Surgical history: gallbladder mastoid left side 3 times; tumor colon resection for infection e coli left ovary and fallopian tube secondary to infection tripple bypass back fusion June 2021 laminectomy tonsilectomy Medical History: polio post polio syndrome; right arm week right leg immobile COPD Social History: nicotine: At this time stopped 15 years ago did smoke for 28 years used to smoke approximately 1 pack per day Alcohol:occasional drugs: none - Constitutional Constitutional: Reports sweats - EENT Eyes: bilateral blurred vision Ears: bilateral: decreased hearing Ears, nose, mouth and throat: Denies headache, Denies sore throat - Breasts Breasts: bilateral: as per HPI - Cardiovascular Comment: Atrial fibrillation patient is on eloquis Cardiovascular: Reports shortness of breath - Respiratory Comment: COPD Respiratory: Denies cough - Gastrointestinal Gastrointestinal: Reports diarrhea - Genitourinary (Female) Comment: UTI Genitourinary: Reports kidney stones - Menstruation Menstruation: Reports postmenopausal - Musculoskeletal Musculoskeletal: Reports as per HPI - Integumentary Integumentary: Denies pruritus, Denies rash - Neurological Neurological: Reports as per HPI - Psychiatric Psychiatric: Reports anxiety, Reports depression - Endocrine Endocrine: Reports fatigue - Hematologic/Lymphatic Comment: eloquis - Allergic/Immunologic Allergic/Immunologic: Reports as per HPI, Reports seasonal allergies Past Medical History Past Medical History: Atrial Fibrillation, Coronary Artery Disease (CAD), COPD, Diabetes Mellitus, GERD/Reflux, Hyperlipidemia Additional Past Medical History / Comment(s): post polio syndrome, neuropathy, hx. spontaneous pneumothorax, recent diarrhea, bowel resecction for sepsis/infection History of Any Multi-Drug Resistant Organisms: ESBL Date of last positivie culture/infection: 06/29/21 MDRO Source:: ESBL BACK Past Surgical History: Back Surgery, Bowel Resection, Cholecystectomy, Coronary Bypass/CABG, Ear Surgery, Tonsillectomy Additional Past Surgical History / Comment(s): triple bypass 2013, left salpingo-oophorectomy, laminectomy L4 L5, ear surgery x 3 Past Anesthesia/Blood Transfusion Reactions: No Reported Reaction Past Psychological History: No Psychological Hx Reported, Anxiety, Depression Additional Psychological History / Comment(s): mild Smoking Status: Former smoker Past Alcohol Use History: Occasional Additional Past Alcohol Use History / Comment(s): quit smoking 2008 Past Drug Use History: None Reported - Past Family History Mother Family Medical History: Cancer Medications and Allergies Home Medications Medication Instructions Recorded Confirmed Type Atorvastatin [Lipitor] 40 mg PO HS@209903/23/16 02/26/22 History DULoxetine HCL [Cymbalta] 60 mg PO HS@209903/23/16 02/26/22 History Metoprolol Tartrate [Lopressor] 50 mg PO BID@0900,209903/23/16 02/26/22 History Omeprazole [PriLOSEC] 20 mg PO DAILY@0600 03/23/16 02/26/22 History Montelukast [Singulair] 10 mg PO HS@209905/18/21 02/26/22 History Ubidecarenone [Co Q-10] 100 mg PO DAILY@0900 05/18/21 02/26/22 History Cholecalciferol [Vitamin D3 (25 25 mcg PO DAILY@0900 06/01/21 02/26/22 History Mcg = 1000 Iu)] Amiodarone [Cordarone] 200 mg PO BID@0900,2100 06/29/21 02/26/22 History Apixaban [Eliquis] 2.5 mg PO BID@0900,2100 06/29/21 02/26/22 History Cyanocobalamin [Vitamin B-12] 1,000 mcg PO DAILY@0900 06/29/21 02/26/22 History Gabapentin 600 mg PO TID 06/29/21 02/26/22 History Insulin Detemir (Levemir) [Levemir] 30 unit SQ HS@2100 ml 07/03/21 02/26/22 Rx HYDROcodone/APAP 10-325MG [[place] 1 tab PO Q6HR PRN 7 Days #12 tab 07/04/21 02/26/22 Rx 10-325] Lactobacillus Acidophilus 1 each PO BID #60 capsule 07/04/21 02/26/22 Rx [Florajen Acidophilus] Allergies Allergy/AdvReac Type Severity Reaction Status Date / Time morphine Allergy rash,itchin Verified 02/26/22 10:48 g Sulfa (Sulfonamide Allergy Rash/Hives Verified 02/26/22 10:48 Antibiotics) surgical susy AdvReac Unknown Uncoded 02/26/22 10:48 Objective - Constitutional General appearance: Present: cooperative - EENT Eyes: Present: EOMI ENT: Present: hearing grossly normal - Neck Neck: Present: normal ROM - Respiratory Respiratory: bilateral: CTA - Cardiovascular Heart sounds: normal: S1, S2 - Integumentary Integumentary: Present: normal turgor - Musculoskeletal Musculoskeletal Comment(s): in a wheel chair - Psychiatric Psychiatric: Present: A&O x's 3, appropriate affect, intact judgment & insight - Additional findings Additional findings: Breast Exam: Asymmetry of the breast related to right breast surgery; excoriation under the left breast following mammogram BRA: 48D Palpation: Right breast: Well-healed scars from prior surgery no dominant masses or nodules of concern Right axilla: No adenopathy of concern Left breast: Multiple positional exam no dominant masses or nodules of concern Left axilla: No adenopathy of concern Assessment and Plan Assessment: Impression: polio post polio syndrome; right arm week right leg immobile COPD Right breast stage IA invasive ductal carcinoma no evidence of recurrence Asymmetry of the breast related to right breast lumpectomy Plan: Bilateral mammogram 02-04-23 pending Continue letrazole Follow-up medical oncology Follow-up here dependent on mammogram results Cc: Dr. Lozano
== END | disposition home or self-care (01) ==
LOC: RADMAMWWP 15:09
PROVIDERS: ATTEND Surgery
DX: R92.323 Mammographic fibroglandular density, bilateral breasts (principal); Z78.0 Asymptomatic menopausal state; Z80.3 Family history of malignant neoplasm of breast; Z85.3 Personal history of malignant neoplasm of breast
CPT/HCPCS: 77062; 77066

== ENCOUNTER 2023-02-27 12:41 | Emergency (ER) | payer OTHER ==
[2023-02-27 12:59] VITALS: RESP 18; TEMP 97.9
[2023-02-27] MEDS ORDERED: SODIUM CHLORIDE 0.9% 500 ML 500 ML IV ONE (13:17)
[2023-02-27 13:43] LABS: Basophils % (A) 0 %; Eosinophils # (A) 0.3 k/uL (0-0.7); Eosinophils % (A) 2 %; HCT 27.4 % (34.0-46.0); HGB 8.2 gm/dL (11.4-16.0); Hypochromasia Marked; Lymphocytes # (A) 1.2 k/uL (1.0-4.8); Lymphocytes % (A) 9 %; MCH 27.5 pg (25.0-35.0); Mean Platelet Volume 9.3; Monocytes % (A) 7 %; Neutrophils # (A) 11.3 k/uL (1.3-7.7); Neutrophils % (A) 81 %; Platelet Count 222 k/uL (150-450); RBC 2.99 m/uL (3.80-5.40); RDW 15.4 % (11.5-15.5); WBC 14.1 k/uL (3.8-10.6)
[2023-02-27 14:01] LABS: MCV 91.8 fL (80.0-100.0)
--- NOTE | 2023-02-27 14:06 | ED ---
Altered Mental Status HPI - General Chief Complaint: Altered Mental Status Stated Complaint: Altered Mental Status Time Seen by Provider: 02/27/23 13:11 Source: patient, EMS, RN notes reviewed Mode of arrival: EMS Limitations: altered mental status - History of Present Illness Initial Comments: 67-year-old female presents emergency department via EMS for [place] for chief complaint of a fall, confusion. Patient is currently being treated for UTI is on antibiotics. herself has no complaints she did state that she lost her balance try to go up. She states that she minimally bumped her head and which she is on Eliquis. She denies any neck, back, extremity injuries she has no point a chest pain shortness breath or abdominal pain. - Related Data Home Medications Medication Instructions Recorded Confirmed Atorvastatin [Lipitor] 40 mg PO HS 03/23/16 02/04/23 DULoxetine HCL [Cymbalta] 60 mg PO QAM 03/23/16 02/04/23 Montelukast [Singulair] 10 mg PO QAM 05/18/21 02/04/23 Budesonide-Formot 160-4.5 Mcg 2 puff INHALATION RT-BID 04/06/22 02/04/23 [Symbicort 160-4.5 Mcg Inhaler] Biotin [Biotin Disolve] 10,000 mcg PO QAM 09/03/22 02/04/23 Letrozole [Femara] 2.5 mg PO QAM 09/03/22 02/04/23 Cholecalciferol [Vitamin D3 (125 125 mcg PO QAM 09/06/22 02/04/23 Mcg = 5000 Iu)] Cyanocobalamin (Vitamin B-12) 2,000 mcg PO QAM 09/06/22 02/04/23 [Vitamin B-12] Albuterol Inhaler [Ventolin Hfa 2 puff INHALATION RT-QID PRN 11/10/22 02/04/23 Inhaler] Amiodarone [Cordarone] 200 mg PO BID 11/10/22 02/04/23 Lactobacillus Acidophilus 1 cap PO QAM 11/29/22 02/04/23 [Acidophilus Probiotic] Ubidecarenone [Coenzyme Q10] 200 mg PO QAM 11/29/22 02/04/23 Ascorbic Acid [Vitamin C] 250 mg PO DAILY 01/14/23 02/04/23 Chlorhexidine Gluconate [Peridex] 15 ml PO BID 01/14/23 02/04/23 Previous Rx's Medication Instructions Recorded Ferrous Sulfate [Iron (65 MG 325 mg PO W/LUNCH #60 tab 09/09/22 Elemental)] Ondansetron Odt [Zofran ODT] 4 mg PO Q8HR PRN #30 tab 11/11/22 Furosemide [Lasix] 40 mg PO BID@0900,1600 #60 tab 11/22/22 Acetaminophen Tab [Tylenol] 650 mg PO Q6HR PRN tab 12/07/22 Pantoprazole [Protonix] 40 mg PO BID tab 12/07/22 Simethicone Chew [Mylicon Chew] 80 mg PO QID PRN tab 12/07/22 Gabapentin [Neurontin] 600 mg PO TID #7 cap 01/22/23 HYDROcodone/APAP 10-325MG [Floyd 1 each PO Q6H PRN #10 tab 01/22/23 10-325] Metoprolol Tartrate [Lopressor] 25 mg PO BID tab 01/22/23 methIMAzole [Tapazole] 10 mg PO DAILY tab 01/22/23 Allergies Allergy/AdvReac Type Severity Reaction Status Date / Time morphine Allergy rash,itchin Verified 02/04/23 15:35 g Sulfa (Sulfonamide Allergy Rash/Hives Verified 02/04/23 15:35 Antibiotics) amoxicillin [From Augmentin] AdvReac Diarrhea Verified 02/04/23 15:35 clavulanic acid AdvReac Diarrhea Verified 02/04/23 15:35 [From Augmentin] surgical susy AdvReac infection Uncoded 02/04/23 15:35 Review of Systems ROS Statement: Those systems with pertinent positive or pertinent negative responses have been documented in the HPI. ROS Other: All systems not noted in ROS Statement are negative. Past Medical History Past Medical History: Atrial Fibrillation, Coronary Artery Disease (CAD), Cancer, Heart Failure, COPD, Diabetes Mellitus, GERD/Reflux, Hyperlipidemia, Hypertension Additional Past Medical History / Comment(s): Pt recently admitted to [facility] with acute blood loss anemia/EGD showed mild gastritis per pt. Pt recently admitted to [facility] on 11/29/22 with acute on chronic chf, moderate pulmonary HTN, acute kidney injury, paroxysmal afib, acute blood loss anemia. Other hx: post polio syndrome rt side, neuropathy, hx. spontaneous pneumothorax after cabg, h ome oxygen at 4L/NC ATC, now NIDDM, chronic transaminitis, bowel resection for sepsis/infection, R breast cancer with lumpectomy only. History of Any Multi-Drug Resistant Organisms: ESBL Date of last positivie culture/infection: 06/29/21 MDRO Source:: ESBL BACK Past Surgical History: Back Surgery, Bowel Resection, Breast Surgery, Cholecystectomy, Coronary Bypass/CABG, Ear Surgery, Heart Catheterization, Tonsillectomy Additional Past Surgical History / Comment(s): triple bypass 2014, left salpingo-oophorectomy, R breast lumpectomy, 2 back surgeries with post op infection with I&D, ear surgery x 3/due to bleeding L eardrum. Past Anesthesia/Blood Transfusion Reactions: No Reported Reaction Past Psychological History: Anxiety, Depression Smoking Status: Former smoker Past Alcohol Use History: None Reported Past Drug Use History: None Reported - Past Family History Mother Family Medical History: Cancer General Exam Limitations: altered mental status General appearance: alert, in no apparent distress Head exam: Present: atraumatic, normocephalic, normal inspection Eye exam: Present: normal appearance, PERRL, EOMI. Absent: scleral icterus, conjunctival injection, periorbital swelling ENT exam: Present: normal exam, normal oropharynx, mucous membranes moist Neck exam: Present: normal inspection, full ROM. Absent: tenderness, meningismus, lymphadenopathy Respiratory exam: Present: normal lung sounds bilaterally. Absent: respiratory distress, wheezes, rales, rhonchi, stridor Cardiovascular Exam: Present: regular rate, normal rhythm, normal heart sounds. Absent: systolic murmur, diastolic murmur, rubs, gallop, clicks GI/Abdominal exam: Present: soft, normal bowel sounds. Absent: distended, tenderness, guarding, rebound, rigid Neurological exam: Present: alert, oriented X3, CN II-XII intact Skin exam: Present: warm, dry, intact, normal color. Absent: rash Course Vital Signs 02/27/23 02/27/23 02/27/23 12:43 12:51 12:59 Temperature 97.9 F Pulse Rate 61 62 60 Respiratory 18 18 18 Rate Blood Pressure 109/33 100/43 O2 Sat by Pulse 97 93 L 96 Oximetry 02/27/23 02/27/2323 13:00 14:00 15:00 Temperature Pulse Rate 60 64 62 Respiratory 18 18 16 Rate Blood Pressure 100/43 106/74 99/76 O2 Sat by Pulse 96 96 94 L Oximetry 02/27/23 02/27/23 02/27/23 16:00 16:32 17:00 Temperature Pulse Rate 62 62 62 Respiratory 16 18 18 Rate Blood Pressure 120/65 109/87 103/78 O2 Sat by Pulse 96 96 96 Oximetry 02/27/23 18:52 Temperature Pulse Rate 60 Respiratory 18 Rate Blood Pressure 104/76 O2 Sat by Pulse 96 Oximetry Medical Decision Making - Medical Decision Making Was pt. sent in by a medical professional or institution (, PA, AUTOMOTIVE SERVICE CASHIER, urgent care, hospital, or [facility]...) When possible be specific @ -[place] Did you speak to anyone other than the patient for history (EMS, parent, family, police, friend...)? What history was obtained from this source @ -No Did you review nursing and triage notes (agree or disagree)? Why? @ -I reviewed and agree with nursing and triage notes Were old charts reviewed (outside hosp., previous admission, EMS record, old EKG, old radiological studies, urgent care reports/EKG's, [facility] records)? Report findings @ -No old charts were reviewed Differential Diagnosis (chest pain, altered mental status, abdominal pain women, abdominal pain men, vaginal bleeding, weakness, fever, dyspnea, syncope, headache, dizziness, GI bleed, back pain, seizure, CVA, palpatations, mental health, musculoskeletal)? @ -Fall, intracranial hemorrhage, cervical fracture, generalized weakness, dehydration, UTI EKG interpreted by me (3pts min.). @ -As above X-rays interpreted by me (1pt min.). @ -Chest x-ray shows right-sided pleural effusion CT interpreted by me (1pt min.). @ -CT brain, C-spine showing no acute intracranial hemorrhage. Degenerative changes brain and cervical spine no acute fracture U/S interpreted by me (1pt. min.). @ -None done What testing was considered but not performed or refused? (CT, X-rays, U/S, labs)? Why? @ -None What meds were considered but not given or refused? Why? @ -None Did you discuss the management of the patient with other professionals (professionals i.e. , PA, AUTOMOTIVE SERVICE CASHIER, lab, RT, psych nurse, social work therapist, genetic physician, teacher, aoc director combat plans officer, gis manager)? Give summary @ -[I did discuss with sound who knows the Patient very well, felt that patient is at her baseline and agree with discharge back to [facility] with close monitoring in to be returned for any worsening of symptoms. She will have PCP and pulmonary evaluation Was smoking cessation discussed for >3mins.? @ -No Was critical care preformed (if so, how long)? @ -No Were there social determinants of health that impacted care today? How? (Homelessness, low income, unemployed, alcoholism, drug addiction, transportation, low edu. Level, literacy, decrease access to med. care, halfway, rehab)? @ -No Was there de-escalation of care discussed even if they declined (Discuss DNR or withdrawal of care, Hospice)? DNR status @ -No What co-morbidities impacted this encounter? (DM, HTN, Smoking, COPD, CAD, Cancer, CVA, ARF, Chemo, Hep., AIDS, mental health diagnosis, sleep apnea, morbid obesity)? @ -None Was patient admitted / discharged? Hospital course, mention meds given and route, prescriptions, significant lab abnormalities, going to OR and other pertinent info. @ -Discharge back to [facility]. Patient had a fall which CT was negative. She did have. Labs which she is at her baseline she does have evidence of current UTI but on current treatment. Hemoglobin is improved from prior hemoglobins current hemoglobin 8.2. Patient states that she feels improved. She does have notable pleural effusion on the right she's been a recurrent issue she has no hypoxia she is on her baseline 3 L of oxygen. Undiagnosed new problem with uncertain prognosis? @ -No Drug Therapy requiring intensive monitoring for toxicity (Heparin, Nitro, Insulin, Cardizem)? @ -No Were any procedures done? @ -No Diagnosis/symptom? @ -Fall, closed head injury, UTI, pleural effusion Acute, or Chronic, or Acute on Chronic? @ -Acute Uncomplicated (without systemic symptoms) or Complicated (systemic symptoms)? @ -complicated Side effects of treatment? @ -No Exacerbation, Progression, or Severe Exacerbation? @ -No Poses a threat to life or bodily function? How? (Chest pain, [place], DE, pneumonia, PE, COPD, DKA, ARF, appy, cholecystitis, CVA, Diverticulitis, Homicidal, Suicidal, threat to staff... and all critical care pts) @ -No - Lab Data Result diagrams: 02/27/23 13:30 02/27/23 13:30 Lab Results 02/27/23 02/27/23 02/27/23 Range/Units 13:30 13:30 13:30 WBC 14.1 H (3.8-10.6) k/uL RBC 2.99 L (3.80-5.40) m/uL Hgb 8.2 L (11.4-16.0) gm/dL Hct 27.4 L (34.0-46.0) % MCV 91.8 D (80.0-100.0) fL MCH 27.5 (25.0-35.0) pg MCHC 30.0 L (31.0-37.0) g/dL RDW 15.4 (11.5-15.5) % Plt Count 222 (150-450) k/uL MPV 9.3 Neutrophils % 81 % Lymphocytes % 9 % Monocytes % 7 % Eosinophils % 2 % Basophils % 0 % Neutrophils # 11.3 H (1.3-7.7) k/uL Lymphocytes # 1.2 (1.0-4.8) k/uL Monocytes # 1.0 (0-1.0) k/uL Eosinophils # 0.3 (0-0.7) k/uL Basophils # 0.0 (0-0.2) k/uL Hypochromasia Marked Sodium 129 L (137-145) mmol/L Potassium 5.1 (3.5-5.1) mmol/L Chloride 100 (98-107) mmol/L Carbon Dioxide 18 L (22-30) mmol/L Anion Gap 11 mmol/L BUN 51 H (7-17) mg/dL Creatinine 1.44 H (0.52-1.04) mg/dL Est GFR (CKD-EPI)AfAm 43 (>60 ml/min/1.73 sqM) Est GFR (CKD-EPI)NonAf 37 (>60 ml/min/1.73 sqM) Glucose 106 H (74-99) mg/dL Calcium 8.4 (8.4-10.2) mg/dL Magnesium 1.9 (1.6-2.3) mg/dL Total Bilirubin 0.7 (0.2-1.3) mg/dL AST 96 H (14-36) U/L ALT 32 (4-34) U/L Alkaline Phosphatase 159 H (38-126) U/L Troponin I (0.000-0.034) ng/mL Total Protein 5.2 L (6.3-8.2) g/dL Albumin 2.2 L (3.5-5.0) g/dL Urine Color Yellow Urine Appearance Cloudy H (Clear) Urine pH 6.0 (5.0-8.0) Ur Specific [place] 1.017 (1.001-1.035) Urine Protein Trace H (Negative) Urine Glucose (UA) Negative (Negative) Urine Ketones Negative (Negative) Urine Blood Large H (Negative) Urine Nitrite Negative (Negative) Urine Bilirubin Negative (Negative) Urine Urobilinogen <2.0 (<2.0) mg/dL Ur Leukocyte Esterase Small H (Negative) Urine RBC 15 H (0-5) /hpf Urine WBC 31 H (0-5) /hpf Ur Squamous Epith Cells <1 (0-4) /hpf Urine Bacteria Rare H (None) /hpf Hyaline Casts 1 (0-2) /lpf Urine Mucus Rare H (None) /hpf 02/27/23 Range/Units 13:30 WBC (3.8-10.6) k/uL RBC (3.80-5.40) m/uL Hgb (11.4-16.0) gm/dL Hct (34.0-46.0) % MCV (80.0-100.0) fL MCH (25.0-35.0) pg MCHC (31.0-37.0) g/dL RDW (11.5-15.5) % Plt Count (150-450) k/uL MPV Neutrophils % % Lymphocytes % % Monocytes % % Eosinophils % % Basophils % % Neutrophils # (1.3-7.7) k/uL Lymphocytes # (1.0-4.8) k/uL Monocytes # (0-1.0) k/uL Eosinophils # (0-0.7) k/uL Basophils # (0-0.2) k/uL Hypochromasia Sodium (137-145) mmol/L Potassium (3.5-5.1) mmol/L Chloride (98-107) mmol/L Carbon Dioxide (22-30) mmol/L Anion Gap mmol/L BUN (7-17) mg/dL Creatinine (0.52-1.04) mg/dL Est GFR (CKD-EPI)AfAm (>60 ml/min/1.73 sqM) Est GFR (CKD-EPI)NonAf (>60 ml/min/1.73 sqM) Glucose (74-99) mg/dL Calcium (8.4-10.2) mg/dL Magnesium (1.6-2.3) mg/dL Total Bilirubin (0.2-1.3) mg/dL AST (14-36) U/L ALT (4-34) U/L Alkaline Phosphatase (38-126) U/L Troponin I <0.012 (0.000-0.034) ng/mL Total Protein (6.3-8.2) g/dL Albumin (3.5-5.0) g/dL Urine Color Urine Appearance (Clear) Urine pH (5.0-8.0) Ur Specific [place] (1.001-1.035) Urine Protein (Negative) Urine Glucose (UA) (Negative) Urine Ketones (Negative) Urine Blood (Negative) Urine Nitrite (Negative) Urine Bilirubin (Negative) Urine Urobilinogen (<2.0) mg/dL Ur Leukocyte Esterase (Negative) Urine RBC (0-5) /hpf Urine WBC (0-5) /hpf Ur Squamous Epith Cells (0-4) /hpf Urine Bacteria (None) /hpf Hyaline Casts (0-2) /lpf Urine Mucus (None) /hpf - EKG Data -: EKG Interpreted by Ia EKG Comments: EKG performed at 13:24 sinus rhythm with first-degree block rate of 60 AR 240 QRS 174 QT/QTC 519/520 Disposition Clinical Impression: Chronic anemia, Fall, Diarrhea, Pleural effusion, UTI (urinary tract infection) Disposition: HOME SELF-CARE Condition: Stable Is patient prescribed a controlled substance at d/c from ED?: No Referrals: Teja Lozano MD [Primary Care Provider] - 1-2 days Time of Disposition: 17:34
[2023-02-27 14:13] LABS: AST 96 U/L (14-36); African American GFR (CKD) 43 (>60 ml/min/1.73 sqM); Albumin 2.2 g/dL (3.5-5.0); Anion Gap 11 mmol/L; Blood Urea Nitrogen 51 mg/dL (7-17); Calcium 8.4 mg/dL (8.4-10.2); Carbon Dioxide 18 mmol/L (22-30); Chloride 100 mmol/L (98-107); Glucose 106 mg/dL (74-99); Non-African American GFR(CKD) 37 (>60 ml/min/1.73 sqM); Sodium 129 mmol/L (137-145); Total Bilirubin 0.7 mg/dL (0.2-1.3); Total Protein 5.2 g/dL (6.3-8.2)
[2023-02-27 14:14] LABS: ALT 32 U/L (4-34); Alkaline Phosphatase 159 U/L (38-126); Magnesium 1.9 mg/dL (1.6-2.3)
[2023-02-27 14:41] LABS: Potassium 5.1 mmol/L (3.5-5.1)
[2023-02-27] MEDS ORDERED: DIPHENOX-ATROP 2.5-0.025 MG 1 EACH TAB PO STA (16:02)
--- NOTE | 2023-02-27 16:29 | CT ---
EXAMINATION TYPE: CT brain cspine wo con CT DLP: 1490.5 mGycm, Automated exposure control for dose reduction was used. DATE OF EXAM: 02/27/2023 2:04 PM COMPARISON: None. CLINICAL INDICATION:Female, 67 years old with history of fall; Fall TECHNIQUE: Brain: Multiple axial CT images of the brain were obtained without IV contrast. Cspine: Axial CT images from the skull base to the inferior aspect of T2 we obtained without intraven ous contrast. Coronal and sagittal reformatted images were also reviewed. FINDINGS: Brain: Extra-axial spaces: No abnormal extra-axial fluid collections. Ventricular system: Dilatation in proportion to cerebral atrophy. Cerebral parenchyma: No acute intraparenchymal hemorrhage or mass effect. The gr-white junction is well differentiated. Moderate generalized atrophy and chronic microvascular ischemic changes. Cerebellum: Unremarkable. Mass effect: No evidence of midline shift. Intracranial vasculature: Atherosclerotic calcifications of the intracranial vessels. Soft tissues: Normal. Calvarium/osseous structures: No depressed skull fracture. Paranasal sinuses and mastoid air cells: Likely postoperative changes of the left mastoid with some s oft tissue content. A few inferior mastoid air cells are opacified. Paranasal sinuses otherwise appea r clear. Visualized orbits: Orbital contents are intact. Cervical spine: Fracture: None. Osseous structures: Mild/moderate multilevel degenerative disc disease and facet arthrosis. Vertebral alignment: No traumatic malalignment. Trace anterolisthesis C4 on C5. Spinal canal/Neural Foramina: Mild multilevel canal or neural foraminal stenoses, probably greatest a t L3-L4 and L4-L5. Neck soft tissues: Prevertebral soft tissues are within normal limits. Calcifications in the bilatera l cervical carotid arteries. Other: Visualized airway is patent. Upper chest shows scarring and some calcification of the left adonay g apex. There is a moderate-sized right pleural effusion with adjacent atelectasis/airspace disease. Mild emphysematous changes. IMPRESSION: No acute intracranial abnormality. Moderate atrophy and chronic microvascular ischemic changes. No evidence of cervical spine fracture. Mild/moderate multilevel degenerative disc disease. Moderate right pleural effusion with adjacent atelectasis/airspace disease.
[2023-02-27 17:05] LABS: Appearance,Urine Cloudy (Clear); Bacteria,Urine Rare /hpf; Bilirubin,Urine Negative (Negative); Blood,Urine Large (Negative); Color,Urine Yellow; Glucose,Urine (UA) Negative (Negative); Hyaline Casts,Urine 1 /lpf (0-2); Ketones,Urine Negative (Negative); Leukocyte Esterase,Urine Small (Negative); Mucus,Urine Rare /hpf; Nitrite,Urine Negative (Negative); Protein,Urine Trace (Negative); RBC,Urine 15 /hpf (0-5); Specific Gravity,Urine 1.017 (1.001-1.035); Squamous Epithelial Cell,Urine <1 /hpf (0-4); Urobilinogen,Urine <2.0 mg/dL (<2.0); WBC,Urine 31 /hpf (0-5)
--- NOTE | 2023-02-27 17:09 | XR ---
EXAMINATION TYPE: XR chest 2V DATE OF EXAM: 02/27/2023 4:57 PM CLINICAL INDICATION:Female, 67 years old with history of sob; [facility] COMPARISON: Chest radiographs from 01/14/2023 TECHNIQUE: XR chest 2V Frontal and lateral views of the chest. FINDINGS: Lungs/Pleura: Airspace opacities and/or large pleural effusion on the right There is no evidence of l eft pleural effusion, focal consolidation, or pneumothorax. Pulmonary vascularity: Unremarkable. Heart/mediastinum: Cardiomediastinal silhouette is unremarkable. Musculoskeletal: No acute osseous pathology. Midline sternotomy wires are noted. Other findings: None IMPRESSION: Right lower lung airspace opacities which could represent pleural effusion versus consolidation. Thes e are best appreciated on lateral view.
[2023-02-27 19:00] VITALS: BP 104/76; PULSE 60
== END 2023-02-27 19:14 | disposition home or self-care (01) ==
LOC: EC 12:41
DX: S09.90XA Unspecified injury of head, initial encounter (principal); D64.9 Anemia, unspecified; N39.0 Urinary tract infection, site not specified; J90 Pleural effusion, not elsewhere classified; R19.7 Diarrhea, unspecified; B95.2 Enterococcus as the cause of diseases classified elsewhere; B96.89 Other specified bacterial agents as the cause of diseases classified elsewhere; I44.0 Atrioventricular block, first degree; E11.9 Type 2 diabetes mellitus without complications; I11.0 Hypertensive heart disease with heart failure; I50.9 Heart failure, unspecified; I25.10 Atherosclerotic heart disease of native coronary artery without angina pectoris; E78.5 Hyperlipidemia, unspecified; J44.9 Chronic obstructive pulmonary disease, unspecified; F32.A Depression, unspecified; F41.9 Anxiety disorder, unspecified; Z79.51 Long term (current) use of inhaled steroids; Z79.899 Other long term (current) drug therapy; I48.0 Paroxysmal atrial fibrillation; Z79.01 Long term (current) use of anticoagulants; Z87.891 Personal history of nicotine dependence; Z88.0 Allergy status to penicillin; Z88.2 Allergy status to sulfonamides; Z88.5 Allergy status to narcotic agent; Z91.048 Other nonmedicinal substance allergy status; Z95.1 Presence of aortocoronary bypass graft; W19.XXXA Unspecified fall, initial encounter
CPT/HCPCS: 36415; 70450; 71046; 72125; 80053; 81001; 83735; 84484; 85025; 87086; 93005; 96360; 99285

== ENCOUNTER 2023-02-28 02:08 | Inpatient (IN) | payer OTHER ==
--- NOTE | 2023-02-28 02:34 | ED ---
GI Bleed HPI - General Chief complaint: GI Bleed Stated complaint: N/V Source: EMS Mode of arrival: EMS Limitations: no limitations - History of Present Illness Initial comments: This patient is 67-year-old woman sent to have evaluation from the care home. She is found to have some black stool over the course of yesterday. When I interview the patient, she denies abdominal pain. No chest pain, dyspnea, syncope or palpitations. She does complain of generalized weakness. Patient had been admitted in January and at that time had an upper endoscopy performed by Dr. Son which revealed gastric polyps with some recent bleeding. MD complaint: melena Onset/Timin -: days(s) Severity scale (1-10): 0 Quality: painless Consistency: constant Improves with: none Worsens with: none Context: history of GI bleed Associated Symptoms: weakness - Related Data Home Medications Medication Instructions Recorded Confirmed Atorvastatin [Lipitor] 40 mg PO HS@2100 03/23/16 03/14/23 DULoxetine HCL [Cymbalta] 60 mg PO DAILY@0800 03/23/16 03/14/23 Montelukast [Singulair] 10 mg PO DAILY@0800 05/18/21 03/14/23 Budesonide-Formot 160-4.5 Mcg 2 puff INHALATION RT-BID@0800,1700 04/06/22 [Symbicort 160-4.5 Mcg Inhaler] Biotin [Biotin Disolve] 10,000 mcg PO DIRECTED 09/03/22 03/14/23 Letrozole [Femara] 2.5 mg PO DAILY@0800 09/03/22 03/14/23 Cholecalciferol [Vitamin D3 (125 125 mcg PO DIRECTED 09/06/22 03/14/23 Mcg = 5000 Iu)] Cyanocobalamin (Vitamin B-12) 2,000 mcg PO DIRECTED 09/06/22 03/14/23 [Vitamin B-12] Albuterol Inhaler [Ventolin Hfa 2 puff INHALATION RT-QID PRN 11/10/22 03/14/23 Inhaler] Amiodarone [Cordarone] 200 mg PO BID@0800,1700 11/10/22 03/14/23 Lactobacillus Acidophilus 1 cap PO DIRECTED 11/29/22 03/14/23 [Acidophilus Probiotic] Ubidecarenone [Coenzyme Q10] 200 mg PO DIRECTED 11/29/22 03/14/23 Ascorbic Acid [Vitamin C] 250 mg PO DIRECTED 01/14/23 03/14/23 Ferrous Sulfate [Iron (65 MG 325 mg PO DIRECTED 02/28/23 03/14/23 Elemental)] Ipratropium-Albuterol Nebulize 3 ml INHALATION RT-Q6H PRN 02/28/23 03/14/23 [Duoneb 0.5 mg-3 mg/3 ml Soln] Loperamide HCl [Imodium A-D] 2 - 4 mg PO QID PRN MDD 4 TABLETS 02/28/23 03/14/23 Loratadine [Claritin] 10 mg PO DAILY PRN 02/28/23 03/14/23 Magic Butt Paste 1 applic TOPICAL TID@0800,1400,2100 02/28/23 03/14/23 Magnesium Hydroxide [Milk of 7,200 mg PO DAILY PRN 02/28/23 03/14/23 Magnesia Concentrate] Metoprolol Tartrate [Lopressor] 25 mg PO BID@0800,1700 02/28/23 03/14/23 Na Phos,M-B/Na Phos,Di-Ba [Fleet 133 ml RECTAL DAILY PRN 02/28/23 03/14/23 Adult] Ondansetron [Zofran] 4 mg PO Q8HR PRN 02/28/23 03/14/23 Pantoprazole [Protonix] 40 mg PO BID@0800,1700 02/28/23 03/14/23 Potassium Chloride [Klor-Con M20] 20 meq PO DIRECTED 02/28/23 03/14/23 bisacodyL [Dulcolax] 10 mg RECTAL DAILY PRN 02/28/23 03/14/23 methIMAzole [Tapazole] 5 mg PO DAILY@0800 02/28/23 03/14/23 Furosemide [Lasix] 40 mg PO DAILY@0800 03/14/23 03/14/23 HYDROcodone/APAP 5-325MG [Micro 1 tab PO Q8HR PRN 03/14/23 03/14/23 5-325] Linezolid [Zyvox] 600 mg PO BID@0800,1700 03/14/23 03/14/23 metroNIDAZOLE [Flagyl] 250 mg PO TID@0600,1400,2200 03/14/23 03/14/23 Previous Rx's Medication Instructions Recorded Acetaminophen Tab [Tylenol] 650 mg PO Q6HR PRN tab 12/07/22 Simethicone Chew [Mylicon Chew] 80 mg PO QID PRN tab 12/07/22 Gabapentin 600 mg PO TID@0600,1400,2200 #9 tab 03/03/23 Allergies Allergy/AdvReac Type Severity Reaction Status Date / Time mayonnaise Allergy Unknown Verified 03/14/23 17:06 morphine Allergy rash,itchin Verified 03/14/23 17:06 g Sulfa (Sulfonamide Allergy Rash/Hives Verified 03/14/23 17:06 Antibiotics) amoxicillin [From Augmentin] AdvReac Diarrhea Verified 03/14/23 17:06 clavulanic acid AdvReac Diarrhea Verified 03/14/23 17:06 [From Augmentin] surgical susy AdvReac infection Uncoded 03/08/23 12:38 Review of Systems ROS Statement: Those systems with pertinent positive or pertinent negative responses have been documented in the HPI. ROS Other: All systems not noted in ROS Statement are negative. Constitutional: Denies: fever, chills Respiratory: Denies: cough, dyspnea Cardiovascular: Denies: palpitations Gastrointestinal: Reports: melena. Denies: abdominal pain Musculoskeletal: Denies: back pain Neurological: Denies: headache Past Medical History Past Medical History: Atrial Fibrillation, Coronary Artery Disease (CAD), Cancer, Heart Failure, COPD, Diabetes Mellitus, GERD/Reflux, Hyperlipidemia, Hypertension Additional Past Medical History / Comment(s): Pt recently admitted to [facility] with acute blood loss anemia/EGD showed mild gastritis per pt. Pt recently admitted to [facility] on 11/29/22 with acute on chronic chf, moderate pulmonary HTN, acute kidney injury, paroxysmal afib, acute blood loss anemia. Other hx: post polio syndrome rt side, neuropathy, hx. spontaneous pneumothorax after cabg, home oxygen at 4L/NC ATC, now NIDDM, chronic transaminitis, bowel resection for sepsis/infection, R breast cancer with lumpectomy only. History of Any Multi-Drug Resistant Organisms: ESBL Date of last positivie culture/infection: 06/29/21 MDRO Source:: ESBL BACK Past Surgical History: Back Surgery, Bowel Resection, Breast Surgery, Cholecystectomy, Coronary Bypass/CABG, Ear Surgery, Heart Catheterization, Tonsillectomy Additional Past Surgical History / Comment(s): triple bypass 2014, left salpingo-oophorectomy, R breast lumpectomy, 2 back surgeries with post op infection with I&D, ear surgery x 3/due to bleeding L eardrum. Past Anesthesia/Blood Transfusion Reactions: No Reported Reaction Past Psychological History: Anxiety, Depression Smoking Status: Former smoker Past Alcohol Use History: None Reported Past Drug Use History: None Reported - Past Family History Mother Family Medical History: Cancer General Exam Limitations: no limitations General appearance: alert, in no apparent distress Head exam: Present: atraumatic, normocephalic Eye exam: Present: normal appearance. Absent: scleral icterus, conjunctival injection Neck exam: Present: normal inspection Respiratory exam: Present: normal lung sounds bilaterally. Absent: respiratory distress, wheezes, rales, rhonchi, stridor Cardiovascular Exam: Present: regular rate, normal rhythm, normal heart sounds. Absent: systolic murmur, diastolic murmur, rubs, gallop GI/Abdominal exam: Present: soft. Absent: distended, tenderness, guarding, rebound, rigid, mass Rectal exam: Present: normal inspection, black stool. Absent: fecal impaction, hemorrhoids, mass, tenderness Extremities exam: Present: normal inspection, normal capillary refill. Absent: pedal edema, calf tenderness Back exam: Present: normal inspection Neurological exam: Present: alert Skin exam: Present: warm, dry, intact, pallor. Absent: rash Course Vital Signs 02/28/23 02/28/23 02/28/23 02:11 03:05 03:15 Temperature 97.6 F Pulse Rate 73 74 74 Pulse Rate [ Right Supine] Respiratory 20 24 21 Rate Blood Pressure 72/52 85/35 89/50 Blood Pressure [Right Arm Supine] O2 Sat by Pulse 88 L 93 L 94 L Oximetry 02/28/23 02/28/23 02/28/23 03:30 03:45 04:00 Temperature Pulse Rate 74 74 75 Pulse Rate [ Right Supine] Respiratory 20 23 25 H Rate Blood Pressure 95/38 96/35 95/44 Blood Pressure [Right Arm Supine] O2 Sat by Pulse 94 L 95 95 Oximetry 02/28/23 02/28/23 02/28/23 05:00 06:00 07:11 Temperature Pulse Rate 74 76 77 Pulse Rate [ Right Supine] Respiratory 18 15 22 Rate Blood Pressure 92/34 155/90 107/65 Blood Pressure [Right Arm Supine] O2 Sat by Pulse 93 L 91 L Oximetry 02/28/23 02/28/23 02/28/23 07:54 08:00 09:00 Temperature 97.9 F Pulse Rate 77 77 Pulse Rate [ 69 Right Supine] Respiratory 16 19 18 Rate Blood Pressure 100/38 101/38 Blood Pressure 93/54 [Right Arm Supine] O2 Sat by Pulse 98 87 L 91 L Oximetry 02/28/23 02/28/23 02/28/23 09:16 09:30 10:00 Temperature Pulse Rate 77 74 76 Pulse Rate [ Right Supine] Respiratory 24 16 18 Rate Blood Pressure 107/53 110/57 96/40 Blood Pressure [Right Arm Supine] O2 Sat by Pulse 93 L 95 Oximetry 02/28/23 02/28/23 02/28/23 10:14 10:30 11:00 Temperature Pulse Rate 73 75 73 Pulse Rate [ Right Supine] Respiratory 18 18 22 Rate Blood Pressure 103/45 95/42 Blood Pressure [Right Arm Supine] O2 Sat by Pulse 93 L 91 L Oximetry 02/28/23 02/28/23 02/28/23 12:16 16:06 17:12 Temperature Pulse Rate 71 75 72 Pulse Rate [ Right Supine] Respiratory 18 18 18 Rate Blood Pressure 93/69 91/35 94/37 Blood Pressure [Right Arm Supine] O2 Sat by Pulse 98 94 L Oximetry 02/28/23 17:48 Temperature Pulse Rate Pulse Rate [ 73 Right Supine] Respiratory 20 Rate Blood Pressure Blood Pressure 114/41 [Right Arm Supine] O2 Sat by Pulse 92 L Oximetry Medical Decision Making - Medical Decision Making The patient had chest x-ray which I interpreted as showing possible right pleural effusion. Was pt. sent in by a medical professional or institution (, PA, STUBBER, urgent care, hospital, or care home...) When possible be specific @ -[No] Did you speak to anyone other than the patient for history (EMS, parent, family, police, friend...)? What history was obtained from this source @ -[No] Did you review nursing and triage notes (agree or disagree)? Why? @ -[I reviewed and agree with nursing and triage notes] Were old charts reviewed (outside hosp., previous admission, EMS record, old EKG, old radiological studies, urgent care reports/EKG's, care home records)? Report findings @ -[old charts were reviewed] Differential Diagnosis (chest pain, altered mental status, abdominal pain women, abdominal pain men, vaginal bleeding, weakness, fever, dyspnea, syncope, headache, dizziness, GI bleed, back pain, seizure, CVA, palpatations, mental health, musculoskeletal)? @ -[Differential GI Bleed: Esophageal varices, aortoenteric fistula, Elvira-Turcios, gastritis, peptic ulcer disease, diverticulosis, inflammatory bowel disease, hemorrhoids, fissure, coli tis, malignancy, Meckels diverticulum, this is not meant to be an all-inclusive list. EKG interpreted by me (3pts min.). @ -[As above] X-rays interpreted by me (1pt min.). @ -I interpreted as above CT interpreted by me (1pt min.). @ -[None done] U/S interpreted by me (1pt. min.). @ -[None done] What testing was considered but not performed or refused? (CT, X-rays, U/S, labs)? Why? @ -[None] What meds were considered but not given or refused? Why? @ -[None] Did you discuss the management of the patient with other professionals (professionals i.e. , PA, STUBBER, lab, RT, psych nurse, mental health social worker, pelt grader, teacher, drug abuse resistance education officer, telephonic nurse case manager)? Give summary @ -[Case is discussed with admitting physician and with neurosurgical nurse practitioner Was smoking cessation discussed for >3mins.? @ -[No] Was critical care preformed (if so, how long)? @ -[No] Were there social determinants of health that impacted care today? How? (Homelessness, low income, unemployed, alcoholism, drug addiction, transportation, low edu. Level, literacy, decrease access to med. care, [facility], rehab)? @ -[No] Was there de-escalation of care discussed even if they declined (Discuss DNR or withdrawal of care, Hospice)? DNR status @ -[No] What co-morbidities impacted this encounter? (DM, HTN, Smoking, COPD, CAD, Cancer, CVA, ARF, Chemo, Hep., AIDS, mental health diagnosis, sleep apnea, morb id obesity)? @ -[History of GI bleeding. Atrial fibrillation requiring blood thinners Was patient admitted / discharged? Hospital course, mention meds given and route, prescriptions, significant lab abnormalities, going to OR and other pertinent info. @ -[Patient will be admitted to have serial hemoglobin, to have surgical consultation for probable endoscopy. Patient started on pantoprazole Undiagnosed new problem with uncertain prognosis? @ -[No] Drug Therapy requiring intensive monitoring for toxicity (Heparin, Nitro, Insulin, Cardizem)? @ -[No] Were any procedures done? @ -[No] Diagnosis/symptom? @ -[Acute GI bleeding Acute on chronic anemia Possible pleural effusion Acute, or Chronic, or Acute on Chronic? @ -[default] Uncomplicated (without systemic symptoms) or Complicated (systemic symptoms)? @ -[Uncomplicated Side effects of treatment? @ -[No] Exacerbation, Progression, or Severe Exacerbation? @ -[No] Poses a threat to life or bodily function? How? (Chest pain, [place], [place], pneumonia, PE, COPD, DKA, ARF, appy, cholecystitis, CVA, Diverticulitis, Homicidal, Suicidal, threat to staff... and all critical care pts) @ -[Yes untreated GI bleeding can become life-threatening condition - Lab Data Result diagrams: 03/03/23 10:51 03/03/23 10:51 Lab Results 02/28/23 02/28/23 02/28/23 Range/Units 02:45 02:45 02:45 WBC 17.5 H (3.8-10.6) k/uL RBC 2.87 L (3.80-5.40) m/uL Hgb 8.0 L (11.4-16.0) gm/dL Hct 26.3 L (34.0-46.0) % MCV 91.4 (80.0-100.0) fL MCH 27.7 (25.0-35.0) pg MCHC 30.4 L (31.0-37.0) g/dL RDW 15.5 (11.5-15.5) % Plt Count 251 (150-450) k/uL MPV 8.9 Neutrophils % 89 % Lymphocytes % 4 % Monocytes % 5 % Eosinophils % 1 % Basophils % 0 % Neutrophils # 15.5 H (1.3-7.7) k/uL Lymphocytes # 0.7 L (1.0-4.8) k/uL Monocytes # 0.8 (0-1.0) k/uL Eosinophils # 0.3 (0-0.7) k/uL Basophils # 0.1 (0-0.2) k/uL Hypochromasia Marked PT 15.3 H (10.0-12.5) sec INR 1.5 H (<1.2) APTT 29.0 (22.0-30.0) sec Sodium 131 L (137-145) mmol/L Potassium 4.5 (3.5-5.1) mmol/L Chloride 103 (98-107) mmol/L Carbon Dioxide 20 L (22-30) mmol/L Anion Gap 8 mmol/L BUN 53 H (7-17) mg/dL Creatinine 1.59 H (0.52-1.04) mg/dL Est GFR (CKD-EPI)AfAm 38 (>60 ml/min/1.73 sqM) Est GFR (CKD-EPI)NonAf 33 (>60 ml/min/1.73 sqM) Glucose 102 H (74-99) mg/dL Lactic Ac Sepsis Rflx Plasma Lactic Acid West (0.7-2.0) mmol/L Calcium 8.4 (8.4-10.2) mg/dL Total Bilirubin 0.5 (0.2-1.3) mg/dL AST 77 H (14-36) U/L ALT 30 (4-34) U/L Alkaline Phosphatase 172 H (38-126) U/L Troponin I (0.000-0.034) ng/mL Total Protein 4.9 L (6.3-8.2) g/dL Albumin 2.2 L (3.5-5.0) g/dL Stool Occult Blood (Negative) C. difficile (EIA) Intrp (Negative) Blood Type Blood Type Recheck Bld Type Recheck Status Antibody Screen Crossmatch Spec Expiration Date 02/28/23 02/28/23 02/28/23 Range/Units 02:45 02:45 02:45 WBC (3.8-10.6) k/uL RBC (3.80-5.40) m/uL Hgb (11.4-16.0) gm/dL Hct (34.0-46.0) % MCV (80.0-100.0) fL MCH (25.0-35.0) pg MCHC (31.0-37.0) g/dL RDW (11.5-15.5) % Plt Count (150-450) k/uL MPV Neutrophils % % Lymphocytes % % Monocytes % % Eosinophils % % Basophils % % Neutrophils # (1.3-7.7) k/uL Lymphocytes # (1.0-4.8) k/uL Monocytes # (0-1.0) k/uL Eosinophils # (0-0.7) k/uL Basophils # (0-0.2) k/uL Hypochromasia PT (10.0-12.5) sec INR (<1.2) APTT (22.0-30.0) sec Sodium (137-145) mmol/L Potassium (3.5-5.1) mmol/L Chloride (98-107) mmol/L Carbon Dioxide (22-30) mmol/L Anion Gap mmol/L BUN (7-17) mg/dL Creatinine (0.52-1.04) mg/dL Est GFR (CKD-EPI)AfAm (>60 ml/min/1.73 sqM) Est GFR (CKD-EPI)NonAf (>60 ml/min/1.73 sqM) Glucose (74-99) mg/dL Lactic Ac Sepsis Rflx Plasma Lactic Acid West 2.2 H* (0.7-2.0) mmol/L Calcium (8.4-10.2) mg/dL Total Bilirubin (0.2-1.3) mg/dL AST (14-36) U/L ALT (4-34) U/L Alkaline Phosphatase (38-126) U/L Troponin I <0.012 (0.000-0.034) ng/mL Total Protein (6.3-8.2) g/dL Albumin (3.5-5.0) g/dL Stool Occult Blood (Negative) C. difficile (EIA) Intrp Negative (Negative) Blood Type Blood Type Recheck Bld Type Recheck Status Antibody Screen Crossmatch Spec Expiration Date 02/28/23 02/28/23 02/28/23 Range/Units 02:45 03:42 04:00 WBC (3.8-10.6) k/uL RBC (3.80-5.40) m/uL Hgb (11.4-16.0) gm/dL Hct (34.0-46.0) % MCV (80.0-100.0) fL MCH (25.0-35.0) pg MCHC (31.0-37.0) g/dL RDW (11.5-15.5) % Plt Count (150-450) k/uL MPV Neutrophils % % Lymphocytes % % Monocytes % % Eosinophils % % Basophils % % Neutrophils # (1.3-7.7) k/uL Lymphocytes # (1.0-4.8) k/uL Monocytes # (0-1.0) k/uL Eosinophils # (0-0.7) k/uL Basophils # (0-0.2) k/uL Hypochromasia PT (10.0-12.5) sec INR (<1.2) APTT (22.0-30.0) sec Sodium (137-145) mmol/L Potassium (3.5-5.1) mmol/L Chloride (98-107) mmol/L Carbon Dioxide (22-30) mmol/L Anion Gap mmol/L BUN (7-17) mg/dL Creatinine (0.52-1.04) mg/dL Est GFR (CKD-EPI)AfAm (>60 ml/min/1.73 sqM) Est GFR (CKD-EPI)NonAf (>60 ml/min/1.73 sqM) Glucose (74-99) mg/dL Lactic Ac Sepsis Rflx Y Plasma Lactic Acid West (0.7-2.0) mmol/L Calcium (8.4-10.2) mg/dL Total Bilirubin (0.2-1.3) mg/dL AST (14-36) U/L ALT (4-34) U/L Alkaline Phosphatase (38-126) U/L Troponin I (0.000-0.034) ng/mL Total Protein (6.3-8.2) g/dL Albumin (3.5-5.0) g/dL Stool Occult Blood Positive H (Negative) C. difficile (EIA) Intrp (Negative) Blood Type A Positive Blood Type Recheck A Pos Bld Type Recheck Status No Antibody Screen NEGATIVE Crossmatch See Detail Spec Expiration Date 03/03/20233 - EKG Data -: EKG Interpreted by Me EKG shows normal: sinus rhythm, intervals (AZ interval 168 milliseconds, QTC 499 ms. QRS duration 170 ms, prolonged consistent with right bundle-branch block pattern), QRS complexes (Right bundle-branch block pattern) Rate: normal (Rate 73 bpm) Disposition Clinical Impression: GI bleeding, Anemia Disposition: ADMITTED IP TO THIS HOSP Condition: Fair
[2023-02-28 02:59] LABS: Basophils # (A) 0.1 k/uL (0-0.2); Basophils % (A) 0 %; Eosinophils # (A) 0.3 k/uL (0-0.7); Eosinophils % (A) 1 %; HCT 26.3 % (34.0-46.0); Hypochromasia Marked; Lymphocytes # (A) 0.7 k/uL (1.0-4.8); Lymphocytes % (A) 4 %; MCH 27.7 pg (25.0-35.0); MCHC 30.4 g/dL (31.0-37.0); MCV 91.4 fL (80.0-100.0); Mean Platelet Volume 8.9; Monocytes # (A) 0.8 k/uL (0-1.0); Monocytes % (A) 5 %; Neutrophils # (A) 15.5 k/uL (1.3-7.7); Neutrophils % (A) 89 %; Platelet Count 251 k/uL (150-450); RBC 2.87 m/uL (3.80-5.40); RDW 15.5 % (11.5-15.5); WBC 17.5 k/uL (3.8-10.6)
[2023-02-28] MEDS ORDERED: SODIUM CHLORIDE 0.9% 500 ML 500 ML IV STA (03:02)
[2023-02-28 03:09] LABS: INR 1.5 (<1.2); Prothrombin Time 15.3 sec (10.0-12.5)
[2023-02-28 03:23] LABS: ALT 30 U/L (4-34); AST 77 U/L (14-36); African American GFR (CKD) 38 (>60 ml/min/1.73 sqM); Albumin 2.2 g/dL (3.5-5.0); Alkaline Phosphatase 172 U/L (38-126); Anion Gap 8 mmol/L; Blood Urea Nitrogen 53 mg/dL (7-17); Calcium 8.4 mg/dL (8.4-10.2); Carbon Dioxide 20 mmol/L (22-30); Chloride 103 mmol/L (98-107); Glucose 102 mg/dL (74-99); Non-African American GFR(CKD) 33 (>60 ml/min/1.73 sqM); Potassium 4.5 mmol/L (3.5-5.1); Sodium 131 mmol/L (137-145); Total Bilirubin 0.5 mg/dL (0.2-1.3); Total Protein 4.9 g/dL (6.3-8.2)
--- NOTE | 2023-02-28 04:18 | XR ---
EXAM: XR Chest, 1 View CLINICAL HISTORY: Pain TECHNIQUE: Frontal view of the chest. COMPARISON: Chest 2 views dated 01/14/2023 FINDINGS: Lungs: Veiling opacity involving the inferior medial right lower lobe. Subsegmental changes involving the peripheral left lung base. Pleural space: The left costophrenic margin is sharp. No pneumothorax. Heart: The cardiac silhouette is stable and within normal limits. Mediastinum: Stable postoperative changes consistent with prior CABG. No tracheal deviation. Bones/joints: Unremarkable. Tubes, lines and devices: Similar spinal stimulator leads in the mid to inferior thoracic spine. IMPRESSION: Veiling opacity involving the inferior medial right lower lobe may represent atelectasis or a pleural effusion. Subsegmental changes involving the peripheral left lung base may represent subsegmental atelectasis or subtle infection.
[2023-02-28] MEDS ORDERED: ONDANSETRON 4 MG/2 ML VIAL IVP PRN (06:54)
[2023-02-28] MEDS ORDERED: ACETAMINOPHEN TAB 325 MG TAB PO PRN ×2 (06:54→08:43)
[2023-02-28] MEDS ORDERED: NALOXONE 0.4 MG/ML 1 ML VIAL IV PRN (06:54)
[2023-02-28] MEDS ORDERED: SODIUM CHLORIDE 0.9% 1,000 ML IV SCH (07:00)
[2023-02-28] MEDS ORDERED: PANTOPRAZOLE 40 MG/10 ML VIAL IV SCH (07:30)
[2023-02-28] MEDS: PANTOPRAZOLE 40 MG/10 ML VIAL IV SCH ×2 (08:01→21:24)
[2023-02-28] MEDS ORDERED: ALBUTEROL NEBULIZED 2.5 MG/3 ML INHALATION PRN (08:43)
[2023-02-28] MEDS ORDERED: NON FORMULARY DRUG (Ascorbic Acid [Vitamin C] 250 MG Tablet) PO SCH (09:00)
--- NOTE | 2023-02-28 09:08 | US ---
EXAMINATION TYPE: US chest DATE OF EXAM: 02/28/2023 COMPARISON: CXR CLINICAL INDICATION: Female, 67 years old with history of right pleural effusion?; Right effusion TECHNIQUE: Targeted ultrasound of the posterior lower right hemithorax EXAM MEASUREMENTS: Right Pleural Effusion pocket size: 8.2 cm Right skin surface to fluid distance: 6.0 cm Right side marked for possible thoracentesis outside the dept. Pulmonologists are able to review the images in the patient?s EMR. IMPRESSIONS: As above
[2023-02-28] MEDS: CYANOCOBALAMIN 500 MCG TAB PO SCH (09:09)
[2023-02-28] MEDS: MONTELUKAST 10 MG TAB PO SCH (09:10)
[2023-02-28] MEDS: LACTOBACILLUS ACIDOPHILUS/PECT 1 EACH CAPSULE PO SCH (09:10)
[2023-02-28] MEDS: DULoxetine HCL 60 MG CAPSULE.DR PO SCH (09:10)
[2023-02-28] MEDS: AZITHROMYCIN 500 MG in SODIUM CHLORIDE 0.9% 250 ML IVPB SCH (10:08)
[2023-02-28] MEDS: methIMAzole 5 MG TAB PO SCH (10:50)
[2023-02-28] MEDS: LETROZOLE 2.5 MG TAB PO SCH (10:58)
--- NOTE | 2023-02-28 11:13 | P.HPIM ---
History of Present Illness H&P Date: 02/28/23 Patient is a 67-year-old female with history of polio with right-sided neuropathy/deficits, atrial fibrillation on Eliquis, COPD with chronic hypoxic respiratory failure on 2-3 L [id number], CAD status post CABG, hypertension, dyslipidemia, insulin-dependent diabetes presenting with generalized weakness and melena. Patient was recently admitted for upper GI bleed, was found to have antral gastritis, bleeding gastric polyp on EGD. She claims that she's been having profound diarrhea with melena. She is also been feeling overall peak and occasionally short of breath. She denies any fevers or chills, lightheadedness, palpitations, nausea or vomiting. She denies any ab dominal pain. Denies any smoking, alcohol or illicit drug use. In the ED, temperature was 97.6, pulse 73, respiratory rate 20, blood pressure 72/52, saturating at 88% on 6 L. WBC 17.5, hemoglobin 8, INR 1.5, creatinine 1.59, baseline around 1.4, sodium 131, lactate 2.2, C. diff negative. Chest x- ray shows right lower lobe opacity. She was given 1 L of normal saline in the ED, started on IV pantoprazole, surgery was consulted for presumptive GI bleed. Pertinent positives and negatives as discussed in HPI, a complete review of systems was performed and all other systems are negative. Patient seen and examined at bedside. Vital signs reviewed General: nontoxic, no distress, appears at stated age, chronically ill-appearing Derm: warm, dry Head: atraumatic, normocephalic, symmetric Eyes: EOMI, no lid lag, anicteric sclera, pupils equal round reactive to light ENT: Nose and ears atraumatic Neck: No thyromegaly, supple Mouth: no lip lesion, mucus membranes moist Cardiovascular: S1S2 reg, no murmur, no edema Lungs: clear to auscultation bilateral, no rhonchi, no rales, no wheeze, no accessory muscle use Abdominal: soft, nontender to palpation, no guarding, no appreciable organo megaly Ext: Right-sided weakness Neuro: CN II-XII grossly intact Psych: Alert, oriented, appropriate affect Assessment/Plan: Active: Acute blood loss anemia Suspected upper GI bleed History of antral gastritis and bleeding gastric polyp -IV pantoprazole 40 mg twice a day -Continue to monitor hemoglobin -Surgery consulted Diarrhea History of hyperthyroidism -C. diff negative -We will repeat TSH after 48 hours given patient takes biotin -Continue methimazole Acute on chronic hypoxic respiratory failure Right lower lobe pleural effusion/atelectasis COPD without exacerbation -Chest ultrasound ordered -Continue duo nebs, Symbicort, albuterol -Continue to wean oxygen -If worsens, will consult pulmonology Acute kidney injury -Likely in the setting of hypotension -Hold diuretics for now Acute metabolic/toxic encephalopathy -Gabapentin decreased 200 3 times a day -Hold narcotics Leukocytosis Outpatient treatment of urinary tract infection -Hold oral antibiotics -Started on ceftriaxone and azithromycin as there is concern for possible pneumonia as well -Urinalysis, sputum cultures, urine Legionella pending -Blood cultures were also ordered Resolved: Hypotension Lactic acidosis Chronic: Atrial fibrillation Chronic diastolic heart failure Polio with right-sided deficit The patient is admitted with an anticipated greater than 2 midnight stay as inpatient status for evaluation of GI bleed. Surrogate decision-maker: Sibling CODE STATUS: Full code DVT prophylaxis: SCDs Anticipated discharge date: Pending clinical course Anticipated discharge place: Pending clinical course A total of 55 minutes was spent on the care of this complex patient more than 50% of the time was spent in counseling and care coordination. Past Medical History Past Medical History: Atrial Fibrillation, Coronary Artery Disease (CAD), Cancer, Heart Failure, COPD, Diabetes Mellitus, GERD/Reflux, Hyperlipidemia, Hypertension Additional Past Medical History / Comment(s): Pt recently admitted to [facility] with acute blood loss anemia/EGD showed mild gastritis per pt. Pt recently admitted to [facility] on 11/29/22 with acute on chronic chf, moderate pulmonary HTN, acute kidney injury, paroxysmal afib, acute blood loss anemia. Other hx: post polio syndrome rt side, neuropathy, hx. spontaneous pneumothorax after cabg, home oxygen at 4L/[place] ATC, now NIDDM, chronic transaminitis, bowel resection for sepsis/infection, R breast cancer with lumpectomy only. History of Any Multi-Drug Resistant Organisms: ESBL Date of last positivie culture/infection: 06/29/21 MDRO Source:: ESBL BACK Past Surgical History: Back Surgery, Bowel Resection, Breast Surgery, Cholecystectomy, Coronary Bypass/CABG, Ear Surgery, Heart Catheterization, Tonsillectomy Additional Past Surgical History / Comment(s): triple bypass 2013, left salpingo-oophorectomy, R breast lumpectomy, 2 back surgeries with post op infection with I&D, ear surgery x 3/due to bleeding L eardrum. Past Anesthesia/Blood Transfusion Reactions: No Reported Reaction Past Psychological History: Anxiety, Depression Smoking Status: Former smoker Past Alcohol Use History: None Reported Past Drug Use History: None Reported - Past Family History Mother Family Medical History: Cancer Medications and Allergies Home Medications Medication Instructions Recorded Confirmed Type Atorvastatin [Lipitor] 40 mg PO HS 03/23/16 02/28/23 History DULoxetine HCL [Cymbalta] 60 mg PO QAM 03/23/16 02/28/23 History Montelukast [Singulair] 10 mg PO QAM 05/18/21 02/28/23 History Budesonide-Formot 160-4.5 Mcg 2 puff INHALATION RT-BID@0800,1700 04/06/22 02/28/23 History [Symbicort 160-4.5 Mcg Inhaler] Biotin [Biotin Disolve] 10,000 mcg PO QAM 09/03/22 02/28/23 History Letrozole [Femara] 2.5 mg PO QAM 09/03/22 02/28/23 History Cholecalciferol [Vitamin D3 (125 125 mcg PO QAM 09/06/22 02/28/23 History Mcg = 5000 Iu)] Cyanocobalamin (Vitamin B-12) 2,000 mcg PO QAM 09/06/22 02/28/23 History [Vitamin B-12] Albuterol Inhaler [Ventolin Hfa 2 puff INHALATION RT-QID PRN 11/10/22 02/28/23 History Inhaler] Amiodarone [Cordarone] 200 mg PO BID@0800,1700 11/10/22 02/28/23 History Lactobacillus Acidophilus 1 cap PO QAM 11/29/22 02/28/23 History [Acidophilus Probiotic] Ubidecarenone [Coenzyme Q10] 200 mg PO QAM 11/29/22 02/28/23 History Acetaminophen Tab [Tylenol] 650 mg PO Q6HR PRN tab 12/07/22 02/28/23 Rx Simethicone Chew [Mylicon Chew] 80 mg PO QID PRN tab 12/07/22 02/28/23 Rx Ascorbic Acid [Vitamin C] 250 mg PO DAILY 01/14/23 02/28/23 History Apixaban [Eliquis] 2.5 mg PO BID@0800,1700 02/28/23 02/28/23 History Ferrous Sulfate [Iron (65 MG 325 mg PO DAILY@1400 02/28/23 02/28/23 History Elemental)] Furosemide [Lasix] 40 mg PO BID@0600,1400 02/28/23 02/28/23 History Gabapentin 600 mg PO TID@0600,1400,2200 02/28/23 02/28/23 History HYDROcodone/APAP 10-325MG [[place] 1 tab PO Q6H PRN 02/28/23 02/28/23 History 10-325] Ipratropium-Albuterol Nebulize 3 ml INHALATION RT-Q6H PRN 02/28/23 02/28/23 History [Duoneb 0.5 mg-3 mg/3 ml Soln] Loperamide HCl [Imodium A-D] 2 - 4 mg PO QID PRN MDD 4 TABLETS 02/28/23 02/28/23 History Loratadine [Claritin] 10 mg PO DAILY PRN 02/28/23 02/28/23 History Magic Butt Paste 1 applic TOPICAL TID@0800,1400,2100 02/28/23 02/28/23 History Magnesium Hydroxide [Milk of 7,200 mg PO DAILY PRN 02/28/23 02/28/23 History Magnesia Concentrate] Metoprolol Tartrate [Lopressor] 25 mg PO BID@0800,1700 02/28/23 02/28/23 History Na Phos,M-B/Na Phos,Di-Ba [Fleet 133 ml RECTAL DAILY PRN 02/28/23 02/28/23 History Adult] Ondansetron [Zofran] 4 mg PO Q8HR PRN 02/28/23 02/28/23 History Pantoprazole [Protonix] 40 mg PO BID@0800,1700 02/28/23 02/28/23 History Potassium Chloride [Klor-Con M20] 20 meq PO QAM 02/28/23 02/28/23 History bisacodyL [Dulcolax] 10 mg RECTAL DAILY PRN 02/28/23 02/28/23 History cefUROXime axetiL [Ceftin] 500 mg PO BID@0800,1700 02/28/23 02/28/23 History methIMAzole [Tapazole] 5 mg PO QAM 02/28/23 02/28/23 History Allergies Allergy/AdvReac Type Severity Reaction Status Date / Time [facility] Allergy Unknown Verified 02/28/23 07:18 morphine Allergy rash,itchin Verified 02/28/23 07:18 g Sulfa (Sulfonamide Allergy Rash/Hives Verified 02/28/23 07:18 Antibiotics) amoxicillin [From Augmentin] AdvReac Diarrhea Verified 02/28/23 07:18 clavulanic acid AdvReac Diarrhea Verified 02/28/23 07:18 [From Augmentin] surgical susy AdvReac infection Uncoded 02/28/23 07:18 Physical Exam Vitals: Vital Signs Temp Pulse Resp BP Pulse Ox 02/28/23 07:11 77 22 107/65 91 L 02/28/23 06:00 76 15 155/90 93 L 02/28/23 05:00 74 18 92/34 02/28/23 04:00 75 25 H 95/44 95 02/28/23 03:45 74 23 96/35 95 02/28/23 03:30 74 20 95/38 94 L 02/28/23 03:15 74 21 89/50 94 L 02/28/23 03:05 74 24 85/35 93 L 02/28/23 02:11 97.6 F 73 20 72/52 88 L Intake and Output 02/27/23 02/28/23 02/28/23 22:59 06:59 14:59 Other: Weight 99.79 kg Results CBC & Chem 7: 02/28/23 02:45 02/28/23 02:45 Labs: Abnormal Lab Results - Last 24 Hours (Table) 02/28/23 02/28/23 02/28/23 Range/Units 02:45 02:45 02:45 WBC 17.5 H (3.8-10.6) k/uL RBC 2.87 L (3.80-5.40) m/uL Hgb 8.0 L (11.4-16.0) gm/dL Hct 26.3 L (34.0-46.0) % MCHC 30.4 L (31.0-37.0) g/dL Neutrophils # 15.5 H (1.3-7.7) k/uL Lymphocytes # 0.7 L (1.0-4.8) k/uL PT 15.3 H (10.0-12.5) sec INR 1.5 H (<1.2) Sodium 131 L (137-145) mmol/L Carbon Dioxide 20 L (22-30) mmol/L BUN 53 H (7-17) mg/dL Creatinine 1.59 H (0.52-1.04) mg/dL Glucose 102 H (74-99) mg/dL Plasma Lactic Acid West (0.7-2.0) mmol/L AST 77 H (14-36) U/L Alkaline Phosphatase 172 H (38-126) U/L Total Protein 4.9 L (6.3-8.2) g/dL Albumin 2.2 L (3.5-5.0) g/dL Stool Occult Blood (Negative) 02/28/23 02/28/23 Range/Units 02:45 04:00 WBC (3.8-10.6) k/uL RBC (3.80-5.40) m/uL Hgb (11.4-16.0) gm/dL Hct (34.0-46.0) % MCHC (31.0-37.0) g/dL Neutrophils # (1.3-7.7) k/uL Lymphocytes # (1.0-4.8) k/uL PT (10.0-12.5) sec INR (<1.2) Sodium (137-145) mmol/L Carbon Dioxide (22-30) mmol/L BUN (7-17) mg/dL Creatinine (0.52-1.04) mg/dL Glucose (74-99) mg/dL Plasma Lactic Acid West 2.2 H* (0.7-2.0) mmol/L AST (14-36) U/L Alkaline Phosphatase (38-126) U/L Total Protein (6.3-8.2) g/dL Albumin (3.5-5.0) g/dL Stool Occult Blood Positive H (Negative)
--- NOTE | 2023-02-28 11:21 | P.GSCN ---
History of Present Illness Consult date: 02/28/23 History of present illness: CHIEF COMPLAINT: Dark stools HISTORY OF PRESENT ILLNESS: This is a 67-year-old female from the residential. She presented with dark stools. She denies any abdominal pain. She denies any nausea or vomiting. Hemoglobin 8.0. Stool for occult blood is positive. She had recent EGD on 01/18/[address] sandhu that revealed a bleeding gastric polyp and gastritis. Last colonoscopy was in 12/27/2022 revealing diverticulosis. Patient does take Eliquis for Afib. Last dose was yesterday. Patient is a poor historian. Most of history was obtained from patient's chart. She does have a right pleural effusion and requiring 6 L of oxygen. Pulmonary service is on consult. PAST MEDICAL HISTORY: Atrial Fibrillation, Coronary Artery Disease (CAD), Cancer, Heart Failure, COPD, Diabetes Mellitus, GERD/Reflux, Hyperlipidemia, Hypertension, Moderate pulmonary HTN, [place], post polio syndrome rt side, neuropathy, hx. spontaneous pneumothorax after cabg, home oxygen at 4L/[place] ATC, now NIDDM, chronic transaminitis, bowel resection for sepsis/infection, R breast cancer with lumpectomy only. PAST SURGICAL HISTORY: Back Surgery, Bowel Resection, Breast Surgery, Cholecystectomy, Coronary Bypass/CABG, Ear Surgery, Heart Catheterization, Tonsillectomy MEDICATIONS: See below ALLERGIES: See below SOCIAL HISTORY: No illicit drug use. REVIEW OF SYSTEMS: CONSTITUTIONAL: Denies fever or chills. HEENT: Denies blurred vision, vision changes, or eye pain. Denies hemoptysis CARDIOVASCULAR: Denies chest pain or pressure. RESPIRATORY: No shortness of breath. GASTROINTESTINAL: See HPI for pertinent findings HEMATOLOGIC: Denies bleeding disorders. GENITOURINARY: Denies any blood in urine or increased urinary frequency. SKIN: Denies pruitis. Denies rash. PHYSICAL EXAM: VITAL SIGNS: Reviewed GENERAL: Well-developed in no acute distress. ABDOMEN: Soft. Nondistended. Nontender NEUROLOGIC: Awake and alert. Pleasantly confused LABORATORY DATA: WBC 17.5 Hgb 8.0 platelets 251 INR 1.5 Sodium 131 potassium 4.5 creatinine 1.59 Lactic acid 2.2 down to 1.6 Total bili 0.5 AST 77 ALT 30 alk phos 172 Stool for occult blood positive IMAGING: Right pleural effusion reported on chest ultrasound ASSESSMENT: 1. Anemia with melanotic stools 2. Recent EGD with bleeding gastric polyp and gastritis on 01/18/2023 PLAN: -Patient scheduled for EGD today with Dr. Sandhu -Keep patient nothing by mouth -Continue to monitor for any signs or symptoms of bleeding -Continue to monitor hemoglobin -Continue IV Protonix -Hold Ismael Physician Color Corrector note has been reviewed by physician. Signing provider agrees with the documented findings, assessment, and plan of care. Past Medical History Past Medical History: Atrial Fibrillation, Coronary Artery Disease (CAD), Cancer, Heart Failure, COPD, Diabetes Mellitus, GERD/Reflux, Hyperlipidemia, Hypertension Additional Past Medical History / Comment(s): Pt recently admitted to [facility] with acute blood loss anemia/EGD showed mild gastritis per pt. Pt recently admitted to [facility] on 11/29/22 with acute on chronic chf, moderate pulmonary HTN, acute kidney injury, paroxysmal afib, acute blood loss anemia. Other hx: post polio syndrome rt side, neuropathy, hx. spontaneous pneumothorax after cabg, home oxygen at 4L/[place] ATC, now NIDDM, chronic transaminitis, bowel resection for sepsis/infection, R breast cancer with lumpectomy only. History of Any Multi-Drug Resistant Organisms: ESBL Year Discovered:: 06/29/21 MDRO Source:: ESBL BACK Past Surgical History: Back Surgery, Bowel Resection, Breast Surgery, [place] cystectomy, Coronary Bypass/CABG, Ear Surgery, Heart Catheterization, Tonsillectomy Additional Past Surgical History / Comment(s): triple bypass 2013, left salpingo-oophorectomy, R breast lumpectomy, 2 back surgeries with post op infection with I&D, ear surgery x 3/due to bleeding L eardrum. Past Anesthesia/Blood Transfusion Reactions: No Reported Reaction Past Psychological History: Anxiety, Depression Smoking Status: Former smoker Past Alcohol Use History: None Reported Past Drug Use History: None Reported - Past Family History Mother Family Medical History: Cancer Medications and Allergies Home Medications Medication Instructions Recorded Confirmed Type Atorvastatin [Lipitor] 40 mg PO HS 03/23/16 02/28/23 History DULoxetine HCL [Cymbalta] 60 mg PO QAM 03/23/16 02/28/23 History Montelukast [Singulair] 10 mg PO QAM 05/18/21 02/28/23 History Budesonide-Formot 160-4.5 Mcg 2 puff INHALATION RT-BID@0800,1700 04/06/22 02/28/23 History [Symbicort 160-4.5 Mcg Inhaler] Biotin [Biotin Disolve] 10,000 mcg PO QAM 09/03/22 02/28/23 History Letrozole [Femara] 2.5 mg PO QAM 09/03/22 02/28/23 History Cholecalciferol [Vitamin D3 (125 125 mcg PO QAM 09/06/22 02/28/23 History Mcg = 5000 Iu)] Cyanocobalamin (Vitamin B-12) 2,000 mcg PO QAM 09/06/22 02/28/23 History [Vitamin B-12] Albuterol Inhaler [Ventolin Hfa 2 puff INHALATION RT-QID PRN 11/10/22 02/28/23 History Inhaler] Amiodarone [Cordarone] 200 mg PO BID@0800,1700 11/10/22 02/28/23 History Lactobacillus Acidophilus 1 cap PO QAM 11/29/22 02/28/23 History [Acidophilus Probiotic] Ubidecarenone [Coenzyme Q10] 200 mg PO QAM 11/29/22 02/28/23 History Acetaminophen Tab [Tylenol] 650 mg PO Q6HR PRN tab 12/07/22 02/28/23 Rx Simethicone Chew [Mylicon Chew] 80 mg PO QID PRN tab 12/07/22 02/28/23 Rx Ascorbic Acid [Vitamin C] 250 mg PO DAILY 01/14/23 02/28/23 History Apixaban [Eliquis] 2.5 mg PO BID@0800,1700 02/28/23 02/28/23 History Ferrous Sulfate [Iron (65 MG 325 mg PO DAILY@1400 02/28/23 02/28/23 History Elemental)] Furosemide [Lasix] 40 mg PO BID@0600,1400 02/28/23 02/28/23 History Gabapentin 600 mg PO TID@0600,1400,2200 02/28/23 02/28/23 History HYDROcodone/APAP 10-325MG [[place] 1 tab PO Q6H PRN 02/28/23 02/28/23 History 10-325] Ipratropium-Albuterol Nebulize 3 ml INHALATION RT-Q6H PRN 02/28/23 02/28/23 History [Duoneb 0.5 mg-3 mg/3 ml Soln] Loperamide HCl [Imodium A-D] 2 - 4 mg PO QID PRN MDD 4 TABLETS 02/28/23 02/28/23 History Loratadine [Claritin] 10 mg PO DAILY PRN 02/28/23 02/28/23 History Magic Butt Paste 1 applic TOPICAL TID@0800,1400,2100 02/28/23 02/28/23 History Magnesium Hydroxide [Milk of 7,200 mg PO DAILY PRN 02/28/23 02/28/23 History Magnesia Concentrate] Metoprolol Tartrate [Lopressor] 25 mg PO BID@0800,1700 02/28/23 02/28/23 History Na Phos,M-B/Na Phos,Di-Ba [Fleet 133 ml RECTAL DAILY PRN 02/28/23 02/28/23 History Adult] Ondansetron [Zofran] 4 mg PO Q8HR PRN 02/28/23 02/28/23 History Pantoprazole [Protonix] 40 mg PO BID@0800,1700 02/28/23 02/28/23 History Potassium Chloride [Klor-Con M20] 20 meq PO QAM 02/28/23 02/28/23 History bisacodyL [Dulcolax] 10 mg RECTAL DAILY PRN 02/28/23 02/28/23 History cefUROXime axetiL [Ceftin] 500 mg PO BID@0800,1700 02/28/23 02/28/23 History methIMAzole [Tapazole] 5 mg PO QAM 02/28/23 02/28/23 History Allergies Allergy/AdvReac Type Severity Reaction Status Date / Time mayonnaise Allergy Unknown Verified 02/28/23 07:18 morphine Allergy rash,itchin Verified 02/28/23 07:18 g Sulfa (Sulfonamide Allergy Rash/Hives Verified 02/28/23 07:18 Antibiotics) amoxicillin [From Augmentin] AdvReac Diarrhea Verified 02/28/23 07:18 clavulanic acid AdvReac Diarrhea Verified 02/28/23 07:18 [From Augmentin] surgical susy AdvReac infection Uncoded 02/28/23 07:18 Surgical - Exam Vital Signs Temp Pulse Resp BP Pulse Ox 97.6 F 73 20 72/52 88 L 02/28/23 02:11 02/28/23 02:11 02/28/23 02:11 02/28/23 02:11 02/28/23 02:11 Results - Labs 02/28/23 02:45 02/28/23 02:45 Abnormal Lab Results - Last 24 Hours (Table) 02/28/23 02/28/23 02/28/23 Range/Units 02:45 02:45 02:45 WBC 17.5 H (3.8-10.6) k/uL RBC 2.87 L (3.80-5.40) m/uL Hgb 8.0 L (11.4-16.0) gm/dL Hct 26.3 L (34.0-46.0) % MCHC 30.4 L (31.0-37.0) g/dL Neutrophils # 15.5 H (1.3-7.7) k/uL Lymphocytes # 0.7 L (1.0-4.8) k/uL PT 15.3 H (10.0-12.5) sec INR 1.5 H (<1.2) Sodium 131 L (137-145) mmol/L Carbon Dioxide 20 L (22-30) mmol/L BUN 53 H (7-17) mg/dL Creatinine 1.59 H (0.52-1.04) mg/dL Glucose 102 H (74-99) mg/dL Plasma Lactic Acid [place] (0.7-2.0) mmol/L AST 77 H (14-36) U/L Alkaline Phosphatase 172 H (38-126) U/L Total Protein 4.9 L (6.3-8.2) g/dL Albumin 2.2 L (3.5-5.0) g/dL Stool Occult Blood (Negative) 02/28/23 02/28/23 Range/Units 02:45 04:00 WBC (3.8-10.6) k/uL RBC (3.80-5.40) m/uL Hgb (11.4-16.0) gm/dL Hct (34.0-46.0) % MCHC (31.0-37.0) g/dL Neutrophils # (1.3-7.7) k/uL Lymphocytes # (1.0-4.8) k/uL PT (10.0-12.5) sec INR (<1.2) Sodium (137-145) mmol/L Carbon Dioxide (22-30) mmol/L BUN (7-17) mg/dL Creatinine (0.52-1.04) mg/dL Glucose (74-99) mg/dL Plasma Lactic Acid [place] 2.2 H* (0.7-2.0) mmol/L AST (14-36) U/L Alkaline Phosphatase (38-126) U/L Total Protein (6.3-8.2) g/dL Albumin (3.5-5.0) g/dL Stool Occult Blood Positive H (Negative) Diabetes panel 02/28/23 Range/Units 02:45 Sodium 131 L (137-145) mmol/L Potassium 4.5 (3.5-5.1) mmol/L Chloride 103 (98-107) mmol/L Carbon Dioxide 20 L (22-30) mmol/L BUN 53 H (7-17) mg/dL Creatinine 1.59 H (0.52-1.04) mg/dL Glucose 102 H (74-99) mg/dL Calcium 8.4 (8.4-10.2) mg/dL AST 77 H (14-36) U/L ALT 30 (4-34) U/L Alkaline Phosphatase 172 H (38-126) U/L Total Protein 4.9 L (6.3-8.2) g/dL Albumin 2.2 L (3.5-5.0) g/dL Calcium panel 02/28/23 Range/Units 02:45 Calcium 8.4 (8.4-10.2) mg/dL Albumin 2.2 L (3.5-5.0) g/dL Pituitary panel 02/28/23 Range/Units 02:45 Sodium 131 L (137-145) mmol/L Potassium 4.5 (3.5-5.1) mmol/L Chloride 103 (98-107) mmol/L Carbon Dioxide 20 L (22-30) mmol/L BUN 53 H (7-17) mg/dL Creatinine 1.59 H (0.52-1.04) mg/dL Glucose 102 H (74-99) mg/dL Calcium 8.4 (8.4-10.2) mg/dL Adrenal panel 02/28/23 Range/Units 02:45 Sodium 131 L (137-145) mmol/L Potassium 4.5 (3.5-5.1) mmol/L Chloride 103 (98-107) mmol/L Carbon Dioxide 20 L (22-30) mmol/L BUN 53 H (7-17) mg/dL Creatinine 1.59 H (0.52-1.04) mg/dL Glucose 102 H (74-99) mg/dL Calcium 8.4 (8.4-10.2) mg/dL Total Bilirubin 0.5 (0.2-1.3) mg/dL AST 77 H (14-36) U/L ALT 30 (4-34) U/L Alkaline Phosphatase 172 H (38-126) U/L Total Protein 4.9 L (6.3-8.2) g/dL Albumin 2.2 L (3.5-5.0) g/dL
[2023-02-28] MEDS ORDERED: ZINC OXIDE PASTE (Z-GUARD) 1 APPLIC APPLIC TOPICAL PRN (11:44)
[2023-02-28 12:15] LABS: Appearance,Urine Clear (Clear); Bilirubin,Urine Negative (Negative); Blood,Urine Negative (Negative); Color,Urine Yellow; Glucose,Urine (UA) Negative (Negative); Hyaline Casts,Urine 13 /lpf (0-2); Ketones,Urine Negative (Negative); Leukocyte Esterase,Urine Trace (Negative); Mucus,Urine Rare /hpf; Nitrite,Urine Negative (Negative); Protein,Urine Negative (Negative); RBC,Urine 4 /hpf (0-5); Specific Gravity,Urine 1.013 (1.001-1.035); Squamous Epithelial Cell,Urine <1 /hpf (0-4); Urobilinogen,Urine <2.0 mg/dL (<2.0); WBC,Urine 11 /hpf (0-5)
[2023-02-28] MEDS: GABAPENTIN 100 MG CAP PO SCH ×2 (14:13→21:24)
[2023-02-28] MEDS ORDERED: SODIUM CHLORIDE 0.9% 1,000 ML IV ONE ×2 (14:53→18:50)
--- NOTE | 2023-02-28 15:11 | P.CNPUL ---
History of Present Illness Consult date: 02/28/23 Reason for consult: dyspnea, pleural effusion History of present illness: 67-year-old female patient was being seen in the emergency department because of pleural effusion and hypoxemia. The patient is a 67-year-old female patient who presented to us from half-way. She was having black tarry stools over the course of yesterday. She denies having any nausea or vomiting. Denies having any abdominal pain. No chest pain. No dizziness. No syncope. No palpitation. She was feeling overall weak. She was in the hospital back in January 2023 and the patient underwent a EGD on 02/14/2022 that showed antral gastritis and a bleeding gastric polyp. Biopsy was performed. At that time, the gastric polyp appeared to be the source of bleeding. The rest of the examination was within normal limits. The patient was subsequently discharged home after eating treated for GI bleed and acute blood loss anemia. She also had an acute kidney injury for which she recovered. She is known to have COPD and she is actually dependent between 2 and 3 L and she has diastolic heart failure, chronic A. fib, coronary artery disease with previous bypass surgery, hypertension hyperlipidemia and insulin-dependent diabetes mellitus. The patient also has history of polio and right-sided neuropathy and motor deficits with worsening right lower extremity weakness and generalized debility. At that time, she was receiving anticoagulation with Eliquis and this was held. In terms of her breathing, the patient is currently on 6 L of O2 nasal cannula. The chest x-ray showed increased pulmonary vessel markings and there was a suspected right-sided pleural effusion. Postthoracotomy changes were also seen in the chest. Ultrasound of the chest was done and the patient was found to have an 8.2 cm pocket of the right side of the lung.in terms of the labs, the debility score is at 17.7, hemoglobin is at 8.0, platelet count is at 251 and the patient has a INR of 1.5 with a PT of 15.3 and a PTT of 29, BUN is a 53 with a creatinine of 1.5 and a sodium level is at 131, lactic acid level dropped down to 1.6 from 2.2, AST of 77, alkaline phosphatase of 172, alcohol stool was positive, stool for C. diff was negative.note that the patient was taken and the coagulation with Eliquis 2.5 mg twice a day. Review of Systems Constitutional: Reports fatigue, Reports weakness Eyes: denies as per HPI, denies blurred vision, denies bulging eye, denies decreased vision, denies diplopia, denies discharge, denies dry eye, denies irritation, denies itching, denies pain, denies photophobia, denies loss of peripheral vision, denies loss of vision, denies tunnel vision/blind spots Ears: deny: decreased hearing, ear discharge, earache, tinnitus Ears, nose, mouth and throat: Reports as per HPI Breasts: absent: as per HPI, change in shape, gynecomastia, masses, nipple discharge, pain, skin changes, swelling Cardiovascular: Reports decreased exercise tolerance, Reports dyspnea on exertion, Reports orthopnea Respiratory: Reports as per HPI, Reports dyspnea Gastrointestinal: Reports as per HPI, possible melanotic stools Genitourinary: Reports as per HPI Menstruation: Reports as per HPI Musculoskeletal: Reports low back pain Musculoskeletal: bilateral: ankle swelling, absent: ankle pain, ankle stiffness Integumentary: Reports as per HPI Neurological: Reports as per HPI, possible chronic weakness in the right side of the body Psychiatric: Reports as per HPI Endocrine: Reports as per HPI Hematologic/Lymphatic: Reports as per HPI Allergic/Immunologic: Reports as per HPI Past Medical History Past Medical History: Atrial Fibrillation, Coronary Artery Disease (CAD), Cancer, Heart Failure, COPD, Diabetes Mellitus, GERD/Reflux, Hyperlipidemia, Hypertension Additional Past Medical History / Comment(s): Pt recently admitted to [facility] with acute blood loss anemia/EGD showed mild gastritis per pt. Pt recently admitted to [facility] on 11/29/22 with acute on chronic chf, moderate pulmonary HTN, acute kidney injury, paroxysmal afib, acute blood loss anemia. Other hx: post polio syndrome rt side, neuropathy, hx. spontaneous pneumothorax after cabg, home oxygen at 4L/NC ATC, now NIDDM, chronic transaminitis, bowel resection for sepsis/infection, R breast cancer with lumpectomy only. History of Any Multi-Drug Resistant Organisms: ESBL Date of last positivie culture/infection: 06/29/21 MDRO Source:: ESBL BACK Past Surgical History: Back Surgery, Bowel Resection, Breast Surgery, Cholecyst ectomy, Coronary Bypass/CABG, Ear Surgery, Heart Catheterization, Tonsillectomy Additional Past Surgical History / Comment(s): triple bypass 2013, left salpingo-oophorectomy, R breast lumpectomy, 2 back surgeries with post op infection with I&D, ear surgery x 3/due to bleeding L eardrum. Past Anesthesia/Blood Transfusion Reactions: No Reported Reaction Past Psychological History: Anxiety, Depression Smoking Status: Former smoker Past Alcohol Use History: None Reported Past Drug Use History: None Reported - Past Family History Mother Family Medical History: Cancer Medications and Allergies Home Medications Medication Instructions Recorded Confirmed Type Atorvastatin [Lipitor] 40 mg PO HS 03/23/16 02/28/23 History DULoxetine HCL [Cymbalta] 60 mg PO QAM 03/23/16 02/28/23 History Montelukast [Singulair] 10 mg PO QAM 05/18/21 02/28/23 History Budesonide-Formot 160-4.5 Mcg 2 puff INHALATION RT-BID@0800,1700 04/06/22 02/28/23 History [Symbicort 160-4.5 Mcg Inhaler] Biotin [Biotin Disolve] 10,000 mcg PO QAM 09/03/22 02/28/23 History Letrozole [Femara] 2.5 mg PO QAM 09/03/22 02/28/23 History Cholecalciferol [Vitamin D3 (125 125 mcg PO QAM 09/06/22 02/28/23 History Mcg = 5000 Iu)] Cyanocobalamin (Vitamin B-12) 2,000 mcg PO QAM 09/06/22 02/28/23 History [Vitamin B-12] Albuterol Inhaler [Ventolin Hfa 2 puff INHALATION RT-QID PRN 11/10/22 02/28/23 History Inhaler] Amiodarone [Cordarone] 200 mg PO BID@0800,1700 11/10/22 02/28/23 History Lactobacillus Acidophilus 1 cap PO QAM 11/29/22 02/28/23 History [Acidophilus Probiotic] Ubidecarenone [Coenzyme Q10] 200 mg PO QAM 11/29/22 02/28/23 History Acetaminophen Tab [Tylenol] 650 mg PO Q6HR PRN tab 12/07/22 02/28/23 Rx Simethicone Chew [Mylicon Chew] 80 mg PO QID PRN tab 12/07/22 02/28/23 Rx Ascorbic Acid [Vitamin C] 250 mg PO DAILY 01/14/23 02/28/23 History Apixaban [Eliquis] 2.5 mg PO BID@0800,1700 02/28/23 02/28/23 History Ferrous Sulfate [Iron (65 MG 325 mg PO DAILY@1400 02/28/23 02/28/23 History Elemental)] Furosemide [Lasix] 40 mg PO BID@0600,1400 02/28/23 02/28/23 History Gabapentin 600 mg PO TID@0600,1400,2200 02/28/23 02/28/23 History HYDROcodone/APAP 10-325MG [[place] 1 tab PO Q6H PRN 02/28/23 02/28/23 History 10-325] Ipratropium-Albuterol Nebulize 3 ml INHALATION RT-Q6H PRN 02/28/23 02/28/23 History [Duoneb 0.5 mg-3 mg/3 ml Soln] Loperamide HCl [Imodium A-D] 2 - 4 mg PO QID PRN MDD 4 TABLETS 02/28/23 02/28/23 History Loratadine [Claritin] 10 mg PO DAILY PRN 02/28/23 02/28/23 History Magic Butt Paste 1 applic TOPICAL TID@0800,1400,2100 02/28/23 02/28/23 History Magnesium Hydroxide [Milk of 7,200 mg PO DAILY PRN 02/28/23 02/28/23 History Magnesia Concentrate] Metoprolol Tartrate [Lopressor] 25 mg PO BID@0800,1700 02/28/23 02/28/23 History Na Phos,M-B/Na Phos,Di-Ba [Fleet 133 ml RECTAL DAILY PRN 02/28/23 02/28/23 History Adult] Ondansetron [Zofran] 4 mg PO Q8HR PRN 02/28/23 02/28/23 History Pantoprazole [Protonix] 40 mg PO BID@0800,1700 02/28/23 02/28/23 History Potassium Chloride [Klor-Con M20] 20 meq PO QAM 02/28/23 02/28/23 History bisacodyL [Dulcolax] 10 mg RECTAL DAILY PRN 02/28/23 02/28/23 History cefUROXime axetiL [Ceftin] 500 mg PO BID@0800,1700 02/28/23 02/28/23 History methIMAzole [Tapazole] 5 mg PO QAM 02/28/23 02/28/23 History Allergies Allergy/AdvReac Type Severity Reaction Status Date / Time [facility] Allergy Unknown Verified 02/28/23 07:18 morphine Allergy rash,itchin Verified 02/28/23 07:18 g Sulfa (Sulfonamide Allergy Rash/Hives Verified 02/28/23 07:18 Antibiotics) amoxicillin [From Augmentin] AdvReac Diarrhea Verified 02/28/23 07:18 clavulanic acid AdvReac Diarrhea Verified 02/28/23 07:18 [From Augmentin] surgical susy AdvReac infection Uncoded 02/28/23 07:18 Physical Exam Vitals: Vital Signs Temp Pulse Resp BP Pulse Ox 02/28/23 12:16 71 18 93/69 02/28/23 11:00 73 22 95/42 91 L 02/28/23 10:30 75 18 103/45 02/28/23 10:14 73 18 93 L 02/28/23 10:00 76 18 96/40 02/28/23 09:30 74 16 110/57 95 02/28/23 09:16 77 24 107/53 93 L 02/28/23 09:00 77 18 101/38 91 L 02/28/23 08:00 77 19 100/38 87 L 02/28/23 07:11 77 22 107/65 91 L 02/28/23 06:00 76 15 155/90 93 L 02/28/23 05:00 74 18 92/34 02/28/23 04:00 75 25 H 95/44 95 02/28/23 03:45 74 23 96/35 95 02/28/23 03:30 74 20 95/38 94 L 02/28/23 03:15 74 21 89/50 94 L 02/28/23 03:05 74 24 85/35 93 L 02/28/23 02:11 97.6 F 73 20 72/52 88 L Intake and Output 02/27/23 02/28/23 02/28/23 22:59 06:59 14:59 Other: Weight 99.79 kg Gen: in no apparent distress, resting comfortably in bed, the patient is currently on 6 L O2 nasal cannula with a pulse ox of 97% Eyes: PERRL, no scleral injection or icterus HENT: normocephalic, atraumatic, good hearing acuity, moist mucous membranes Neck: no tracheal deviation, full range of motion Resp: The patient diminished breath on the right lung the lung with dullness to percussion consistent with pleural effusion. CVS: good distal perfusion x 4, bilateral 1+ pitting edema GI: soft, NTTP, ND, no hepatosplenomegaly : no suprapubic tenderness, no CVAT, stacy catheter not present MSK: no clubbing, no cyanosis, no noted contractures of extremities Skin: no noted rashes, petechiae; temperature of skin is appropriate Neuro: moving all extremities without signs of weakness, CN II-XII intact Psych: cooperative, euthymic mood, insight and judgment intact Results - Laboratory Findings CBC and BMP: 02/28/23 02:45 02/28/23 02:45 PT/INR, D-dimer PT 15.3 sec (10.0-12.5) H 02/28/23 02:45 INR 1.5 (<1.2) H 02/28/23 02:45 Abnormal lab findings: Abnormal Labs 02/28/23 02/28/23 02/28/23 02:45 02:45 02:45 WBC 17.5 H RBC 2.87 L Hgb 8.0 L Hct 26.3 L MCHC 30.4 L Neutrophils # 15.5 H Lymphocytes # 0.7 L PT 15.3 H INR 1.5 H Sodium 131 L Carbon Dioxide 20 L BUN 53 H Creatinine 1.59 H Glucose 102 H Plasma Lactic Acid [place] AST 77 H Alkaline Phosphatase 172 H Total Protein 4.9 L Albumin 2.2 L Ur Leukocyte Esterase Urine WBC Hyaline Casts Urine Mucus Stool Occult Blood 02/28/23 02/28/23 02/28/23 02:45 04:00 11:44 WBC RBC Hgb Hct MCHC Neutrophils # Lymphocytes # PT INR Sodium Carbon Dioxide BUN Creatinine Glucose Plasma Lactic Acid [place] 2.2 H* AST Alkaline Phosphatase Total Protein Albumin Ur Leukocyte Esterase Trace H Urine WBC 11 H Hyaline Casts 13 H Urine Mucus Rare H Stool Occult Blood Positive H - Diagnostic Findings Chest x-ray: image reviewed Assessment and Plan Plan: Acute on chronic dyspnea, multifactorial. The patient has background COPD and the patient has also developed enlarging right-sided pleural effusion probably related to decompensated heart failure/CHF. the patient developed a right-sided pleural effusion. The patient is known to have CHF with preserved LV and diastolic heart failure although her most recent echocardiogram showed a preserved LV function with a diastolic pattern that was consistent with her age. She also has moderate degree of pulmonary hypertension and RV dilatation. She is currently on 6 L nasal cannula Acute on top of chronic hypoxic respiratory failure currently on 6 liters nasal cannula recurrent right pleural effusion, likely secondary to CHF COPD with upper lobe predominance maintain on Symbicort on outpatient basis recurrent GI bleed, likely secondary to bleeding gastric polyp. EGD was done on 01/18/2023. Current hemoglobin is at 8.0 gastric polyp Diverticulosis based on a colonoscopy that was done on 12/27/2022 Coronary artery disease with previous bypass surgery Paroxysmal A. fib current rhythm is sinus and the patient is admitted on anticoagulants. She has also underlying bundle branch block pattern Hypertension Hyperlipidemia Diabetes mellitus type 2 Right-sided breast cancer with a previous lumpectomy and sentinel lymph node biopsy and the patient is currently on hormonal treatment. recurrent blood loss anemia , likely secondary to GI bleeding Chronic back pain with previous back surgery currently maintained on [place] and Neurontin. The patient has undergone a surgery for severe lumbar stenosis L2 through S1 and the patient has undergone laminectomy and facetectomy and foraminotomy with fusion at multiple levels. History of her lumbar wound dehiscence with serous drainage back in June 2022 Previous history of spontaneous pneumothorax on the left History of previous poliomyelitis on the right C. diff colitis in the past, treated Mild coagulopathy, INR is 1.5 Plan the patient is currently on anticoagulation. This was placed on hold We'll do a thoracentesis needed within the next 24-48 hours Wean FiO2 as tolerated to maintain a saturation above 90% Patient has responded the past to diuretics and diuretics will be started if there is no active bleeding Possible thoracentesis the next 24 hours Resume all medications No need for antibiotics
[2023-02-28] MEDS: AMIODARONE 200 MG TAB PO SCH (16:04)
[2023-02-28] MEDS: METOPROLOL TARTRATE 25 MG TAB PO SCH (16:04)
[2023-02-28] MEDS ORDERED: IV FLUID CONTINUATION 400 ML IV ONE (17:22)
[2023-02-28] MEDS ORDERED: LIDOCAINE 1% INJ 10MG/ML (20 ML MDV) ONE (17:24)
[2023-02-28] MEDS ORDERED: PROPOFOL 10 MG/ML 20 ML VIAL IV ONE (17:24)
[2023-02-28] MEDS ORDERED: PHENYLEPHRINE 10 MG/ML 5 ML VIAL ONE (17:24)
--- NOTE | 2023-02-28 17:46 | P.OP ---
Date of Procedure: 02/28/23 Preoperative Diagnosis: GI bleed Postoperative Diagnosis: Antral gastritis Small hiatal hernia Mild esophagitis Procedure(s) Performed: EGD Anesthesia: MAC Surgeon: Jaskaran Son Pathology: other (Antrum, esophagus) Condition: stable Disposition: PACU Description of Procedure: Patient's placed on the endoscopy table in the lateral position. She received IV sedation. The gastroscope placed oropharynx passed in the esophagus and stomach. Scope was then placed through the pylorus. The first and second portion of duodenum was examined. This appeared normal. Scope summer back the antrum this. Mildly inflamed. A biopsies performed. The scope was then retroflexed and remainder the stomach appeared normal. There were a few fundal polyps seen. There was a small hiatal hernia. The GE junction was at 38 cm. The distal esophagus was minimal inflamed. A biopsies performed. The proximal esophagus appeared normal. Scope withdrawn for patient.
[2023-02-28 17:58] LABS: Glucose,Whole Blood 109 mg/dL (70-110)
[2023-02-28] MEDS: SYMBICORT 160-4.5 MCG INHALER INHALATION SCH (19:33)
[2023-02-28] MEDS: ATORVASTATIN 40 MG TAB PO SCH (21:24)
[2023-03-01 04:40] LABS: Glucose,Whole Blood 110 mg/dL (70-110)
[2023-03-01] MEDS: GABAPENTIN 100 MG CAP PO SCH ×3 (05:17→22:18)
[2023-03-01] MEDS: AZITHROMYCIN 500 MG in SODIUM CHLORIDE 0.9% 250 ML IVPB SCH (08:05)
[2023-03-01] MEDS: PANTOPRAZOLE 40 MG/10 ML VIAL IV SCH ×2 (08:06→22:18)
[2023-03-01] MEDS: METOPROLOL TARTRATE 25 MG TAB PO SCH ×2 (08:07→15:47)
[2023-03-01] MEDS: AMIODARONE 200 MG TAB PO SCH ×2 (08:07→15:47)
[2023-03-01] MEDS: CYANOCOBALAMIN 500 MCG TAB PO SCH (08:07)
[2023-03-01] MEDS: MONTELUKAST 10 MG TAB PO SCH (08:07)
[2023-03-01] MEDS: DULoxetine HCL 60 MG CAPSULE.DR PO SCH (08:07)
[2023-03-01] MEDS: methIMAzole 5 MG TAB PO SCH (08:09)
[2023-03-01] MEDS: LACTOBACILLUS ACIDOPHILUS/PECT 1 EACH CAPSULE PO SCH (08:09)
[2023-03-01] MEDS: LETROZOLE 2.5 MG TAB PO SCH (08:09)
[2023-03-01] MEDS: IPRATROPIUM-ALBUTEROL 3 ML NEB INHALATION PRN (08:53)
[2023-03-01] MEDS: SYMBICORT 160-4.5 MCG INHALER INHALATION SCH ×2 (08:53→20:32)
[2023-03-01 09:31] LABS: Basophils % (A) 0 %; Eosinophils # (A) 0.2 k/uL (0-0.7); Eosinophils % (A) 2 %; HCT 23.7 % (34.0-46.0); Hypochromasia Marked; Lymphocytes # (A) 1.1 k/uL (1.0-4.8); Lymphocytes % (A) 8 %; MCH 27.6 pg (25.0-35.0); MCV 95.3 fL (80.0-100.0); Mean Platelet Volume 8.8; Monocytes % (A) 7 %; Neutrophils # (A) 12.3 k/uL (1.3-7.7); Neutrophils % (A) 82 %; Platelet Count 228 k/uL (150-450); RBC 2.49 m/uL (3.80-5.40); RDW 15.2 % (11.5-15.5)
[2023-03-01 09:36] LABS: HGB 6.9 gm/dL (11.4-16.0)
[2023-03-01 09:40] LABS: ALT 26 U/L (4-34); AST 75 U/L (14-36); African American GFR (CKD) 49 (>60 ml/min/1.73 sqM); Albumin 1.9 g/dL (3.5-5.0); Alkaline Phosphatase 135 U/L (38-126); Anion Gap 11 mmol/L; Blood Urea Nitrogen 47 mg/dL (7-17); Calcium 7.7 mg/dL (8.4-10.2); Carbon Dioxide 15 mmol/L (22-30); Chloride 105 mmol/L (98-107); Glucose 92 mg/dL (74-99); Magnesium 1.7 mg/dL (1.6-2.3); Non-African American GFR(CKD) 42 (>60 ml/min/1.73 sqM); Potassium 3.7 mmol/L (3.5-5.1); Sodium 131 mmol/L (137-145); Total Bilirubin 0.5 mg/dL (0.2-1.3); Total Protein 4.5 g/dL (6.3-8.2)
[2023-03-01] MEDS ORDERED: FUROSEMIDE 10 MG/ML 2 ML VIAL IV PRN (09:59)
--- NOTE | 2023-03-01 11:07 | P.PN ---
Subjective Progress Note Date: 03/01/23 67-year-old female patient was being seen in the emergency department because of pleural effusion and hypoxemia. The patient is a 67-year-old female patient who presented to us from residential. She was having black tarry stools over the course of yesterday. She denies having any nausea or vomiting. Denies having any abdominal pain. No chest pain. No dizziness. No syncope. No palpitation. She was feeling overall weak. She was in the hospital back in January 2023 and the patient underwent a EGD on 02/14/2022 that showed antral gastritis and a bleeding gastric polyp. Biopsy was performed. At that time, the gastric polyp appeared to be the source of bleeding. The rest of the examination was within normal limits. The patient was subsequently discharged home after eating treated for GI bleed and acute blood loss anemia. She also had an acute kidney injury for which she recovered. She is known to have COPD and she is actually dependent between 2 and 3 L and she has diastolic heart failure, chronic A. fib, coronary artery disease with previous bypass surgery, hypertension hyperl ipidemia and insulin-dependent diabetes mellitus. The patient also has history of polio and right-sided neuropathy and motor deficits with worsening right lower extremity weakness and generalized debility. At that time, she was receiving anticoagulation with Eliquis and this was held. In terms of her breathing, the patient is currently on 6 L of O2 nasal cannula. The chest x-ray showed increased pulmonary vessel markings and there was a suspected right-sided pleural effusion. Postthoracotomy changes were also seen in the chest. Ultrasound of the chest was done and the patient was found to have an 8.2 cm pocket of the right side of the lung.in terms of the labs, the debility score is at 17.7, hemoglobin is at 8.0, platelet count is at 251 and the patient has a INR of 1.5 with a PT of 15.3 and a PTT of 29, BUN is a 53 with a creatinine of 1.5 and a sodium level is at 131, lactic acid level dropped down to 1.6 from 2.2, AST of 77, alkaline phosphatase of 172, alcohol stool was positive, stool for C. diff was negative.note that the patient was taken and the coagulation with Eliquis 2.5 mg twice a day. On 03/01/2023, the patient is feeling better. She is awake and alert and she is communicating. She underwent an EGD today and it showed no evidence of any active bleeding. The patient has antral gastritis, small hiatal hernia and mild esophagitis. The patient's hemoglobin is at 6.9 and the patient will need a units of packed RBC. This will be transfused today. The white cycles of 15. BUN is 47 with a creatinine of 1.3 and a sodium level of 131. As far as the the pleural effusion, the patient had an ultrasound of the chest that showed a 8.2 cm pocket on the right. I'm planning to do a thoracentesis as such the patient is currently off anticoagulation. The patient is being gently hydrated with normal saline at rate of 75 mL an hour. She remains nothing by mouth for now. No chest pain. No shortness of breath. She is on 4 L of O2 nasal cannula with a pulse ox of 90%. No nausea or vomiting or abdominal pain. Objective - Vital Signs Vital signs: Vital Signs Temp 97.5 F L 03/01/23 07:58 Pulse 67 03/01/23 09:05 Resp 03/01/23 07:58 BP 97/59 03/01/23 07:58 Pulse Ox 98 03/01/23 08:59 FiO2 Intake & Output 02/28/23 03/01/23 03/01/23 18:59 06:59 18:59 Intake Total 600 0 Balance 600 0 Weight 99.79 kg Intake: IV 600 Oral 0 Other: Voiding Method Diaper # Voids 2 # Bowel Movements 2 - Exam Gen: in no apparent distress, resting comfortably in bed, the patient is currently on 4 L O2 nasal cannula with a pulse ox of 97% Eyes: PERRL, no scleral injection or icterus HENT: normocephalic, atraumatic, good hearing acuity, moist mucous membranes Neck: no tracheal deviation, full range of motion Resp: The patient diminished breath on the right lung the lung with dullness to percussion consistent with pleural effusion. CVS: good distal perfusion x 4, bilateral 1+ pitting edema GI: soft, NTTP, ND, no hepatosplenomegaly : no suprapubic tenderness, no CVAT, stacy catheter not present MSK: no clubbing, no cyanosis, no noted contractures of extremities Skin: no noted rashes, petechiae; temperature of skin is appropriate Neuro: moving all extremities without signs of weakness, CN II-XII intact Psych: cooperative, euthymic mood, insight and judgment intact - Labs CBC & Chem 7: 03/01/23 08:50 03/01/23 08:50 Labs: Abnormal Lab Results - Last 24 Hours (Table) 02/28/23 Range/Units 11:44 Ur Leukocyte Esterase Trace H (Negative) Urine WBC 11 H (0-5) /hpf Hyaline Casts 13 H (0-2) /lpf Urine Mucus Rare H (None) /hpf Assessment and Plan Plan: Acute on chronic dyspnea, multifactorial. The patient has background COPD and the patient has also developed enlarging right-sided pleural effusion probably related to decompensated heart failure/CHF. the patient developed a right-sided pleural effusion. The patient is known to have CHF with preserved LV and diastolic heart failure although her most recent echocardiogram showed a preserved LV function with a diastolic pattern that was consistent with her age. She also has moderate degree of pulmonary hypertension and RV dilatation. She is currently on 4 L of action nasal cannula Acute on top of chronic hypoxic respiratory failure currently on 4 L nasal cannula recurrent right pleural effusion, likely secondary to CHF COPD with upper lobe predominance maintain on Symbicort on outpatient basis recurrent GI bleed, likely secondary to bleeding gastric polyp. EGD was done on 01/18/2023. Current hemoglobin is at 6.9 gastric polyp Diverticulosis based on a colonoscopy that was done on 12/27/2022 Coronary artery disease with previous bypass surgery Paroxysmal A. fib current rhythm is sinus and the patient is admitted on anticoagulants. She has also underlying bundle branch block pattern Hypertension Hyperlipidemia Diabetes mellitus type 2 Right-sided breast cancer with a previous lumpectomy and sentinel lymph node biopsy and the patient is currently on hormonal treatment. recurrent blood loss anemia , likely secondary to GI bleeding Chronic back pain with previous back surgery currently maintained on [place] and Neurontin. The patient has undergone a surgery for severe lumbar stenosis L2 through S1 and the patient has undergone laminectomy and facetectomy and foraminotomy with fusion at multiple levels. History of her lumbar wound dehiscence with serous drainage back in June 2022 Previous history of spontaneous pneumothorax on the left History of previous poliomyelitis on the right C. diff colitis in the past, treated Mild coagulopathy, INR is 1.5 Plan Transfuse 1 unit of packed RBC Renal function continues to improve and the creatinine is down to 1.30 Keep the patient off anticoagulation EGD was done and there is no evidence of any acute bleeding Hemoglobin drop down to 6.7 and the patient will need a unit of packed RBC We'll do a thoracentesis needed within the next 24-48 hours Wean FiO2 as tolerated to maintain a saturation above 90%
[2023-03-01 11:47] LABS: Glucose,Whole Blood 111 mg/dL (70-110)
[2023-03-01] MEDS: HYDROcodone/APAP 10-325MG 1 EACH TAB PO PRN (12:52)
--- NOTE | 2023-03-01 13:00 | P.PN ---
Subjective Progress Note Date: 03/01/23 Hospital Course: 67-year-old female with history of polio with right-sided neuropathy/deficits, atrial fibrillation on Eliquis, COPD with chronic hypoxic respiratory failure on 2-3 L [id number], CAD status post CABG, hypertension, dyslipidemia, insulin-dependent diabetes presenting with generalized weakness and melena. In the ED, temperature was 97.6, pulse 73, respiratory rate 20, blood pressure 72/52, saturating at 88% on 6 L. WBC 17.5, hemoglobin 8, INR 1.5, creatinine 1.59, baseline around 1.4, sodium 131, lactate 2.2, C. diff negative. Chest x- ray shows right lower lobe opacity. She was given 1 L of normal saline in the ED, started on IV pantoprazole, surgery was consulted for presumptive GI bleed. Subjective: Patient seen and examined at bedside. Claims that she has pain in bilateral lower extremities. Still having some bowel movements but has come down. She had 5 bowel movements over the last 24 hours. Still noticing melena. Pertinent positives and negatives as discussed above, a complete review of systems was performed and all other systems are negative. Vitals Signs Reviewed. General: nontoxic, no distress, appears at stated age, chronically ill-appearing Derm: warm, dry Head: atraumatic, normocephalic, symmetric Eyes: EOMI, no lid lag, anicteric sclera, pupils equal round reactive to light ENT: Nose and ears atraumatic Neck: No thyromegaly, supple Mouth: no lip lesion, mucus membranes moist Cardiovascular: S1S2 reg, no murmur, no edema Lungs: clear to auscultation bilateral, no rhonchi, no rales, no wheeze, no accessory muscle use, supplemental oxygen Abdominal: soft, nontender to palpation, no guarding, no appreciable organom egaly Ext: Right-sided weakness Neuro: CN II-XII grossly intact Psych: Alert, oriented, appropriate affect Data Reviewed Today: Pertinent Labs: WBC 15, hemoglobin 6.9, sodium 131, creatinine 1.3 Imaging: Chest ultrasound shows right pleural effusion. Assessment and Plan: Acute blood loss anemia Upper GI bleed Antral gastritis mild esophagitis -1 unit of PRBCs ordered, also give 20 mg of IV Lasix after -IV pantoprazole 40 mg twice a day -Continue to monitor hemoglobin -Operative note reviewed -Surgery following Diarrhea, slightly improved History of hyperthyroidism -C. diff negative -We will repeat TSH after 48 hours given patient takes biotin -Continue methimazole Acute on chronic hypoxic respiratory failure Right lower lobe pleural effusion/atelectasis COPD without exacerbation -Pulmonology note reviewed, thoracentesis in the next 24-48 hours -Continue duo nebs, Symbicort, albuterol -Continue to wean oxygen Acute kidney injury, resolving -Likely in the setting of hypotension -Pressure not improved Acute metabolic/toxic encephalopathy, resolved -Gabapentin decreased 100 3 times a day -Narcotics restarted for chronic lower extremity pain Leukocytosis Outpatient treatment of urinary tract infection, urinalysis not consistent with urinary tract infection at the moment -Hold oral antibiotics -Started on ceftriaxone and azithromycin as there is concern for possible pneumonia as well -sputum cultures, urine Legionella pending -Blood cultures pending Resolved: Hypotension Lactic acidosis Chronic: Atrial fibrillation Chronic diastolic heart failure Polio with right-sided deficit DVT ppx: SCDs Code status: Full code Anticipated discharge place: Pending clinical course Anticipated discharge time: Pending clinical course Objective - Vital Signs Vital signs: Vital Signs Temp 97.4 F L 03/01/23 12:00 Pulse 71 03/01/23 12:00 Resp 22 03/01/23 12:00 BP 105/44 03/01/23 12:00 Pulse Ox 93 L 03/01/23 12:00 FiO2 Intake & Output 02/28/23 03/01/23 03/01/23 18:59 06:59 18:59 Intake Total 600 0 Balance 600 0 Weight 99.79 kg Intake: IV 600 Oral 0 Other: Voiding Method Diaper # Voids 2 # Bowel Movements 2 - Labs CBC & Chem 7: 03/01/23 08:50 03/01/23 08:50 Labs: Abnormal Lab Results - Last 24 Hours (Table) 02/28/23 03/01/23 03/01/23 Range/Units 02:45 08:50 08:50 WBC 15.0 H (3.8-10.6) k/uL RBC 2.49 L (3.80-5.40) m/uL Hgb 6.9 L* (11.4-16.0) gm/dL Hct 23.7 L (34.0-46.0) % MCHC 29.0 L (31.0-37.0) g/dL Neutrophils # 12.3 H (1.3-7.7) k/uL Sodium 131 L (137-145) mmol/L Carbon Dioxide 15 L (22-30) mmol/L BUN 47 H (7-17) mg/dL Creatinine 1.30 H (0.52-1.04) mg/dL POC Glucose (mg/dL) (70-110) mg/dL Calcium 7.7 L (8.4-10.2) mg/dL AST 75 H (14-36) U/L Alkaline Phosphatase 135 H (38-126) U/L Total Protein 4.5 L (6.3-8.2) g/dL Albumin 1.9 L (3.5-5.0) g/dL Crossmatch See Detail 03/01/23 Range/Units 11:41 WBC (3.8-10.6) k/uL RBC (3.80-5.40) m/uL Hgb (11.4-16.0) gm/dL Hct (34.0-46.0) % MCHC (31.0-37.0) g/dL Neutrophils # (1.3-7.7) k/uL Sodium (137-145) mmol/L Carbon Dioxide (22-30) mmol/L BUN (7-17) mg/dL Creatinine (0.52-1.04) mg/dL POC Glucose (mg/dL) 111 H (70-110) mg/dL Calcium (8.4-10.2) mg/dL AST (14-36) U/L Alkaline Phosphatase (38-126) U/L Total Protein (6.3-8.2) g/dL Albumin (3.5-5.0) g/dL Crossmatch
--- NOTE | 2023-03-01 13:23 | P.PN ---
Subjective Progress Note Date: 03/01/23 CHIEF COMPLAINT: GI bleeding HISTORY OF PRESENT ILLNESS: Patient status post EGD revealing gastritis, small hiatal hernia and esophagitis. She denies any abdominal pain. Per nursing staff she did have some bright red blood in her evening bowel movement. This morning's bowel movement no blood. Hemoglobin 6.9 and she is to receive a unit of blood. Patient is followed by pulmonary service regarding her pleural effusion and possible thoracentesis. PHYSICAL EXAM: VITAL SIGNS: Reviewed. GENERAL: Well-developed in no acute distress. ABDOMEN: Soft. Nondistended. Nontender. NEUROLOGIC: Patient sleeping comfortably ASSESSMENT: 1. Anemia 2. GI bleed 3. Recent EGD with bleeding gastric polyp and gastritis on 01/18/2023 4. History of diverticulosis PLAN: -Patient scheduled for colonoscopy on , 03/03/[address] sandhu -Start GoLYTELY bowel prep tomorrow morning -Continue clear liquid diet -Agree with blood transfusion -Continue to monitor hemoglobin -Continue to monitor for any signs or symptoms of bleeding -Continue IV Protonix -Keep Eliquis on Hold Physician Rn Transition note has been reviewed by physician. Signing provider agrees with the documented findings, assessment, and plan of care. Objective - Vital Signs Vital signs: Vital Signs Temp 97.5 F L 03/01/23 07:58 Pulse 67 03/01/23 09:05 Resp 23 03/01/23 07:58 BP 97/59 03/01/23 07:58 Pulse Ox 98 03/01/23 08:59 FiO2 Intake & Output 02/28/23 03/01/23 03/01/23 18:59 06:59 18:59 Intake Total 600 0 Balance 600 0 Weight 99.79 kg Intake: IV 600 Oral 0 Other: Voiding Method Diaper # Voids 2 # Bowel Movements 2 - Labs CBC & Chem 7: 03/01/23 08:50 03/01/23 08:50 Labs: Abnormal Lab Results - Last 24 Hours (Table) 02/28/23 03/01/23 03/01/23 Range/Units 11:44 08:50 08:50 WBC 15.0 H (3.8-10.6) k/uL RBC 2.49 L (3.80-5.40) m/uL Hgb 6.9 L* (11.4-16.0) gm/dL Hct 23.7 L (34.0-46.0) % MCHC 29.0 L (31.0-37.0) g/dL Neutrophils # 12.3 H (1.3-7.7) k/uL Sodium 131 L (137-145) mmol/L Carbon Dioxide 15 L (22-30) mmol/L BUN 47 H (7-17) mg/dL Creatinine 1.30 H (0.52-1.04) mg/dL Calcium 7.7 L (8.4-10.2) mg/dL AST 75 H (14-36) U/L Alkaline Phosphatase 135 H (38-126) U/L Total Protein 4.5 L (6.3-8.2) g/dL Albumin 1.9 L (3.5-5.0) g/dL Ur Leukocyte Esterase Trace H (Negative) Urine WBC 11 H (0-5) /hpf Hyaline Casts 13 H (0-2) /lpf Urine Mucus Rare H (None) /hpf
[2023-03-01 16:17] LABS: Glucose,Whole Blood 130 mg/dL (70-110)
[2023-03-01 20:30] LABS: Glucose,Whole Blood 149 mg/dL (70-110)
[2023-03-01] MEDS: ATORVASTATIN 40 MG TAB PO SCH (22:18)
[2023-03-02] MEDS: GABAPENTIN 100 MG CAP PO SCH ×3 (05:40→21:03)
[2023-03-02 06:09] LABS: Glucose,Whole Blood 105 mg/dL (70-110)
--- NOTE | 2023-03-02 08:48 | P.PN ---
Subjective Progress Note Date: 03/02/23 67-year-old female patient was being seen in the emergency department because of pleural effusion and hypoxemia. The patient is a 67-year-old female patient who presented to us from long-term. She was having black tarry stools over the course of yesterday. She denies having any nausea or vomiting. Denies having any abdominal pain. No chest pain. No dizziness. No syncope. No palpitation. She was feeling overall weak. She was in the hospital back in January 2023 and the patient underwent a EGD on 02/14/2022 that showed antral gastritis and a bleeding gastric polyp. Biopsy was performed. At that time, the gastric polyp appeared to be the source of bleeding. The rest of the examination was within normal limits. The patient was subsequently discharged home after eating treated for GI bleed and acute blood loss anemia. She also had an acute kidney injury for which she recovered. She is known to have COPD and she is actually dependent between 2 and 3 L and she has diastolic heart failure, chronic A. fib, coronary artery disease with previous bypass surgery, hypertension hyperl ipidemia and insulin-dependent diabetes mellitus. The patient also has history of polio and right-sided neuropathy and motor deficits with worsening right lower extremity weakness and generalized debility. At that time, she was receiving anticoagulation with Eliquis and this was held. In terms of her breathing, the patient is currently on 6 L of O2 nasal cannula. The chest x-ray showed increased pulmonary vessel markings and there was a suspected right-sided pleural effusion. Postthoracotomy changes were also seen in the chest. Ultrasound of the chest was done and the patient was found to have an 8.2 cm pocket of the right side of the lung.in terms of the labs, the debility score is at 17.7, hemoglobin is at 8.0, platelet count is at 251 and the patient has a INR of 1.5 with a PT of 15.3 and a PTT of 29, BUN is a 53 with a creatinine of 1.5 and a sodium level is at 131, lactic acid level dropped down to 1.6 from 2.2, AST of 77, alkaline phosphatase of 172, alcohol stool was positive, stool for C. diff was negative.note that the patient was taken and the coagulation with Eliquis 2.5 mg twice a day. On 03/01/2023, the patient is feeling better. She is awake and alert and she is communicating. She underwent an EGD today and it showed no evidence of any active bleeding. The patient has antral gastritis, small hiatal hernia and mild esophagitis. The patient's hemoglobin is at 6.9 and the patient will need a units of packed RBC. This will be transfused today. The white cycles of 15. BUN is 47 with a creatinine of 1.3 and a sodium level of 131. As far as the the pleural effusion, the patient had an ultrasound of the chest that showed a 8.2 cm pocket on the right. I'm planning to do a thoracentesis as such the patient is currently off anticoagulation. The patient is being gently hydrated with normal saline at rate of 75 mL an hour. She remains nothing by mouth for now. No chest pain. No shortness of breath. She is on 4 L of O2 nasal cannula with a pulse ox of 90%. No nausea or vomiting or abdominal pain. Today's evaluation of 03/02 2023, the patient is being seen for a follow-up. The patient got transfused with a unit of packed RBC yesterday. Follow-up hemoglobin is pending for now. In terms of bleeding, the patient remains off anticoagulation and the patient has not shown any signs of any acute bleeding over the past 24 hours. She remains an option 3 L/m nasal cannula. She is having some mild shortness of breath even at rest. She has generalized body aches. She is covered with broad-spectrum antibiotics with a combination of Rocephin and Zithromax. The pleural effusion is most likely a transudate. Going to the bedside diagnostic and therapeutic thoracentesis on this patient now that she's been off anticoagulation. No nausea. No emesis. No abdominal pain. Objective - Vital Signs Vital signs: Vital Signs Temp 96.7 F L 03/02/23 07:59 Pulse 71 03/02/23 07:59 Resp 17 03/02/23 07:59 BP 124/57 03/02/23 07:59 Pulse Ox 92 L 03/02/23 07:59 FiO2 Intake & Output 03/01/23 03/02/23 03/02/23 18:59 06:59 18:59 Intake Total 310 Balance 310 Intake: Oral 0 Blood Product 310 Rc As-1 Unit 310 [id number] Other: Voiding Method Bedpan Bedpan Diaper Diaper # Voids 2 # Bowel Movements 1 - Exam Gen: in no apparent distress, resting comfortably in bed, the patient is currently on 4 L O2 nasal cannula with a pulse ox of 97% Eyes: PERRL, no scleral injection or icterus HENT: normocephalic, atraumatic, good hearing acuity, moist mucous membranes Neck: no tracheal deviation, full range of motion Resp: The patient diminished breath on the right lung the lung with dullness to percussion consistent with pleural effusion. CVS: good distal perfusion x 4, bilateral 1+ pitting edema GI: soft, NTTP, ND, no hepatosplenomegaly : no suprapubic tenderness, no CVAT, stacy catheter not present MSK: no clubbing, no cyanosis, no noted contractures of extremities Skin: no noted rashes, petechiae; temperature of skin is appropriate Neuro: moving all extremities without signs of weakness, CN II-XII intact Psych: cooperative, euthymic mood, insight and judgment intact - Labs CBC & Chem 7: 03/01/23 08:50 03/01/23 08:50 Labs: Abnormal Lab Results - Last 24 Hours (Table) 02/28/23 03/01/23 03/01/23 Range/Units 02:45 08:50 08:50 WBC 15.0 H (3.8-10.6) k/uL RBC 2.49 L (3.80-5.40) m/uL Hgb 6.9 L* (11.4-16.0) gm/dL Hct 23.7 L (34.0-46.0) % MCHC 29.0 L (31.0-37.0) g/dL Neutrophils # 12.3 H (1.3-7.7) k/uL Sodium 131 L (137-145) mmol/L Carbon Dioxide 15 L (22-30) mmol/L BUN 47 H (7-17) mg/dL Creatinine 1.30 H (0.52-1.04) mg/dL POC Glucose (mg/dL) (70-110) mg/dL Calcium 7.7 L (8.4-10.2) mg/dL AST 75 H (14-36) U/L Alkaline Phosphatase 135 H (38-126) U/L Total Protein 4.5 L (6.3-8.2) g/dL Albumin 1.9 L (3.5-5.0) g/dL Crossmatch See Detail 03/01/23 03/01/23 03/01/23 Range/Units 11:41 16:14 20:28 WBC (3.8-10.6) k/uL RBC (3.80-5.40) m/uL Hgb (11.4-16.0) gm/dL Hct (34.0-46.0) % MCHC (31.0-37.0) g/dL Neutrophils # (1.3-7.7) k/uL Sodium (137-145) mmol/L Carbon Dioxide (22-30) mmol/L BUN (7-17) mg/dL Creatinine (0.52-1.04) mg/dL POC Glucose (mg/dL) 111 H 130 H 149 H (70-110) mg/dL Calcium (8.4-10.2) mg/dL AST (14-36) U/L Alkaline Phosphatase (38-126) U/L Total Protein (6.3-8.2) g/dL Albumin (3.5-5.0) g/dL Crossmatch Microbiology - Last 24 Hours (Table) 02/28/23 09:00 Blood Culture - Preliminary Blood Assessment and Plan Plan: Acute on chronic dyspnea, multifactorial. The patient has background COPD and the patient has also developed enlarging right-sided pleural effusion probably related to decompensated heart failure/CHF. the patient developed a right-sided pleural effusion. The patient is known to have CHF with preserved LV and diastolic heart failure although her most recent echocardiogram showed a preserved LV function with a diastolic pattern that was consistent with her age. She also has moderate degree of pulmonary hypertension and RV dilatation. She is currently on 3 L of action nasal cannula Acute on top of chronic hypoxic respiratory failure currently on 3 L nasal cannula recurrent right pleural effusion, likely secondary to CHF COPD with upper lobe predominance maintain on Symbicort on outpatient basis recurrent GI bleed, likely secondary to bleeding gastric polyp. EGD was done on 01/18/2023. Current hemoglobin is at 6.9, the patient was transfused with a unit of packed RBC. Follow-up hemoglobin is pending. The patient is currently off anticoagulants. gastric polyp Diverticulosis based on a colonoscopy that was done on 12/27/2022 Coronary artery disease with previous bypass surgery Paroxysmal A. fib current rhythm is sinus and the patient is admitted on anticoagulants. She has also underlying bundle branch block pattern Hypertension Hyperlipidemia Diabetes mellitus type 2 Right-sided breast cancer with a previous lumpectomy and sentinel lymph node biopsy and the patient is currently on hormonal treatment. recurrent blood loss anemia , likely secondary to GI bleeding Chronic back pain with previous back surgery currently maintained on Kir[place] and Neurontin. The patient has undergone a surgery for severe lumbar stenosis L2 through S1 and the patient has undergone laminectomy and facetectomy and foraminotomy with fusion at multiple levels. History of her lumbar wound dehiscence with serous drainage back in June 2022 Previous history of spontaneous pneumothorax on the left History of previous poliomyelitis on the right C. diff colitis in the past, treated Mild coagulopathy, INR is 1.5 Plan We'll proceed with a bedside thoracentesis of the right lung We will send the pleural fluid for analysis Keep the patient off anticoagulation EGD was done and there is no evidence of any acute bleeding Hemoglobin drop down to 6.9 and the patient will need a unit of packed RBC We'll do a thoracentesis May DC ABX Wean FiO2 as tolerated to maintain a saturation above 90%
[2023-03-02] MEDS ORDERED: PEG 3350 (236 GM/BTL) + LYTES 4,000 ML BOTTLE PO ONE (09:00)
[2023-03-02] MEDS: SYMBICORT 160-4.5 MCG INHALER INHALATION SCH ×2 (09:11→21:01)
[2023-03-02] MEDS: LETROZOLE 2.5 MG TAB PO SCH (09:13)
[2023-03-02] MEDS: methIMAzole 5 MG TAB PO SCH (09:14)
[2023-03-02] MEDS: METOPROLOL TARTRATE 25 MG TAB PO SCH ×2 (09:14→17:33)
[2023-03-02] MEDS: DULoxetine HCL 60 MG CAPSULE.DR PO SCH (09:15)
[2023-03-02] MEDS: LACTOBACILLUS ACIDOPHILUS/PECT 1 EACH CAPSULE PO SCH (09:15)
--- NOTE | 2023-03-02 09:15 | P.PCN ---
Date of Procedure: 03/02/23 Preoperative Diagnosis: Thoracentesis, right side for pleural effusion Postoperative Diagnosis: Thoracentesis, right side pleural effusion Procedure(s) Performed: Thoracentesis, right side Anesthesia: local Surgeon: Paloma Graff Emery Wheel Worker #1: Elmer Keith Estimated Blood Loss (ml): 0 Pathology: other Condition: stable Disposition: same day Operative Findings: A time out was performed and the chest x-ray was reviewed, the appropriate side was confirmed and marked. My hands were washed immediately prior to the procedure. I wore a surgical cap, mask with protective eyewear, sterile gown and sterile gloves throughout the procedure. The patient was prepped and draped in a sterile manner using chlorhexidine scrub after the appropriate level was percussed and confirmed by ultrasound. 1% lidocaine was used to anesthesize the skin, subcutaneous tissue, superior aspect of the rib periosteum and parietal pleura. A finder needle was then introduced over the superior aspect of the rib to locate the pleural fluid; 2colored fluid was aspirated at a depth of approximately 2 cm. A 10-blade scalpel was used to gretel the skin at the insertion site. The [id number] needle was then introduced through the skin incision into the pleural space using negative aspiration pressure and the red colometric indicator to confirm appropriate positioning of the needle. The thoracentesis catheter was then threaded without difficulty. 1300 ml of turbid colored fluid was removed without difficulty. The catheter was then removed. No immediate complications were noted during the procedure. A post-procedure chest x-ray is pending at the time of this note. The fluid will be sent for studies. Estimated blood loss is 0cc
[2023-03-02] MEDS: MONTELUKAST 10 MG TAB PO SCH (09:16)
[2023-03-02] MEDS: AMIODARONE 200 MG TAB PO SCH ×2 (09:16→17:33)
[2023-03-02] MEDS: HYDROcodone/APAP 10-325MG 1 EACH TAB PO PRN (09:16)
[2023-03-02] MEDS: CYANOCOBALAMIN 500 MCG TAB PO SCH (09:16)
[2023-03-02 11:54] LABS: Glucose,Whole Blood 120 mg/dL (70-110)
[2023-03-02 11:58] LABS: Basophils % (A) 0 %; Eosinophils # (A) 0.3 k/uL (0-0.7); Eosinophils % (A) 2 %; HCT 26.5 % (34.0-46.0); Hypochromasia Marked; Lymphocytes # (A) 0.9 k/uL (1.0-4.8); Lymphocytes % (A) 6 %; MCV 93.1 fL (80.0-100.0); Mean Platelet Volume 9.2; Monocytes # (A) 1.5 k/uL (0-1.0); Monocytes % (A) 11 %; Neutrophils # (A) 11.3 k/uL (1.3-7.7); Neutrophils % (A) 79 %; Platelet Count 203 k/uL (150-450); Poikilocytosis Slight; RBC 2.85 m/uL (3.80-5.40); RDW 15.5 % (11.5-15.5); WBC 14.3 k/uL (3.8-10.6)
[2023-03-02 11:59] LABS: African American GFR (CKD) 51 (>60 ml/min/1.73 sqM); Anion Gap 8 mmol/L; Blood Urea Nitrogen 45 mg/dL (7-17); Calcium 8.1 mg/dL (8.4-10.2); Carbon Dioxide 15 mmol/L (22-30); Chloride 106 mmol/L (98-107); Glucose 96 mg/dL (74-99); Non-African American GFR(CKD) 44 (>60 ml/min/1.73 sqM); Potassium 3.7 mmol/L (3.5-5.1); Sodium 129 mmol/L (137-145)
--- NOTE | 2023-03-02 11:59 | XR ---
EXAMINATION TYPE: XR chest 1V DATE OF EXAM: 03/02/2023 COMPARISON: 02/28/2023 INDICATION: Thoracentesis right side TECHNIQUE: Single frontal view of the chest is obtained. FINDINGS: The heart size is normal. The pulmonary vasculature is prominent. There is elevation of the right diaphragm. Subpulmonic effusion could be considered. No pneumothorax is evident. IMPRESSION: 1. No pneumothorax postthoracentesis. Some small residual right pleural effusion remains present.
[2023-03-02] MEDS: PANTOPRAZOLE 40 MG/10 ML VIAL IV SCH ×2 (12:14→21:03)
[2023-03-02] MEDS: AZITHROMYCIN 500 MG in SODIUM CHLORIDE 0.9% 250 ML IVPB SCH (12:15)
--- NOTE | 2023-03-02 13:12 | P.PN ---
Subjective Progress Note Date: 03/02/23 Hospital Course: 67-year-old female with history of polio with right-sided neuropathy/deficits, atrial fibrillation on Eliquis, COPD with chronic hypoxic respiratory failure on 2-3 L [id number], CAD status post CABG, hypertension, dyslipidemia, insulin-dependent diabetes presenting with generalized weakness and melena. In the ED, temperature was 97.6, pulse 73, respiratory rate 20, blood pressure 72/52, saturating at 88% on 6 L. WBC 17.5, hemoglobin 8, INR 1.5, creatinine 1.59, baseline around 1.4, sodium 131, lactate 2.2, C. diff negative. Chest x- ray shows right lower lobe opacity. She was given 1 L of normal saline in the ED, started on IV pantoprazole, surgery was consulted for presumptive GI bleed. EGD showed antral gastritis and mild esophagitis. Pending colonoscopy. Status post 1 unit of PRBCs. Also status post right thoracentesis. Subjective: Patient seen and examined at bedside. Number of bowel movements decreasing. Does not want colonoscopy. Respiratory function better. Pertinent positives and negatives as discussed above, a complete review of syste ms was performed and all other systems are negative. Vitals Signs Reviewed. General: nontoxic, no distress, appears at stated age, chronically ill-appearing Derm: warm, dry Head: atraumatic, normocephalic, symmetric Eyes: EOMI, no lid lag, anicteric sclera, pupils equal round reactive to light ENT: Nose and ears atraumatic Neck: No thyromegaly, supple Mouth: no lip lesion, mucus membranes moist Cardiovascular: S1S2 reg, no murmur, no edema Lungs: clear to auscultation bilateral, no rhonchi, no rales, no wheeze, no accessory muscle use, supplemental oxygen Abdominal: soft, nontender to palpation, no guarding, no appreciable organomegaly Ext: Right-sided weakness Neuro: CN II-XII grossly intact Psych: Alert, oriented, appropriate affect Data Reviewed Today: Pertinent Labs: WBC 14.3, hemoglobin 8, sodium 129, bicarbonate 15, creatinine 1.25, glucose ranged between 96-149 Imaging: No new imaging Assessment and Plan: Acute blood loss anemia, stable, status post 1 unit of PRBCs Upper GI bleed Antral gastritis mild esophagitis -IV pantoprazole 40 mg twice a day -Continue to monitor hemoglobin -Operative note reviewed -Surgery following, considering colonoscopy Diarrhea, slightly improved History of hyperthyroidism -C. diff negative -Repeat TSH now as patient is off of biotin -Continue methimazole Acute on chronic hypoxic respiratory failure Right lower lobe pleural effusion/atelectasis COPD without exacerbation -Pulmonology note reviewed, thoracentesis completed today -Continue duo nebs, Symbicort, albuterol -Continue to wean oxygen -1300 mL of turbid colored fluid removed, cell count and cytology pending Acute kidney injury, resolving Hyponatremia Metabolic acidosis, likely in the setting of diarrhea -Likely in the setting of hypotension -Pressure now improved -Restart Lasix 40 mg daily -Started on oral bicarbonate -Repeat BMP tomorrow Acute metabolic/toxic encephalopathy, resolved -Gabapentin decreased 100 3 times a day -Narcotics restarted for chronic lower extremity pain Leukocytosis slowly improving Outpatient treatment of urinary tract infection, urinalysis not consistent with urinary tract infection at the moment -Home oral antibiotics discontinued, started on ceftriaxone and azithromycin -Continue ceftriaxone 1 g every 24 hours -sputum cultures, urine Legionella pending -Blood cultures no growth to date -Pleural fluid cultures pending Resolved: Hypotension Lactic acidosis Chronic: Atrial fibrillation Chronic diastolic heart failure Polio with right-sided deficit DVT ppx: SCDs Code status: Full code Anticipated discharge place: [facility]acute rehab Anticipated discharge time: Pending clinical course Objective - Vital Signs Vital signs: Vital Signs Temp 96.7 F L 03/02/23 12:00 Pulse 67 03/02/23 12:00 Resp 17 03/02/23 12:00 BP 100/50 03/02/23 12:00 Pulse Ox 94 L 03/02/23 12:00 FiO2 Intake & Output 03/01/23 03/02/23 03/02/23 18:59 06:59 18:59 Intake Total 310 Balance 310 Intake: Oral 0 Blood Product 310 Rc As-1 Unit 310 [id number] Other: Voiding Method Bedpan Bedpan Bedpan Diaper Diaper Diaper # Voids 2 # Bowel Movements 1 - Labs CBC & Chem 7: 03/02/23 11:06 03/02/23 11:06 Labs: Abnormal Lab Results - Last 24 Hours (Table) 02/28/23 03/01/23 03/01/23 Range/Units 02:45 16:14 20:28 WBC (3.8-10.6) k/uL RBC (3.80-5.40) m/uL Hgb (11.4-16.0) gm/dL Hct (34.0-46.0) % MCHC (31.0-37.0) g/dL Neutrophils # (1.3-7.7) k/uL Lymphocytes # (1.0-4.8) k/uL Monocytes # (0-1.0) k/uL Sodium (137-145) mmol/L Carbon Dioxide (22-30) mmol/L BUN (7-17) mg/dL Creatinine (0.52-1.04) mg/dL POC Glucose (mg/dL) 130 H 149 H (70-110) mg/dL Calcium (8.4-10.2) mg/dL Crossmatch See Detail 03/02/23 03/02/23 03/02/23 Range/Units 11:06 11:06 11:48 WBC 14.3 H (3.8-10.6) k/uL RBC 2.85 L (3.80-5.40) m/uL Hgb 8.0 L (11.4-16.0) gm/dL Hct 26.5 L (34.0-46.0) % MCHC 30.0 L (31.0-37.0) g/dL Neutrophils # 11.3 H (1.3-7.7) k/uL Lymphocytes # 0.9 L (1.0-4.8) k/uL Monocytes # 1.5 H (0-1.0) k/uL Sodium 129 L (137-145) mmol/L Carbon Dioxide 15 L (22-30) mmol/L BUN 45 H (7-17) mg/dL Creatinine 1.25 H (0.52-1.04) mg/dL POC Glucose (mg/dL) 120 H (70-110) mg/dL Calcium 8.1 L (8.4-10.2) mg/dL Crossmatch Microbiology - Last 24 Hours (Table) 02/28/23 09:00 Blood Culture - Preliminary Blood
[2023-03-02 14:01] LABS: Total Protein 4.8 g/dL (6.3-8.2)
--- NOTE | 2023-03-02 14:46 | P.PN ---
Subjective Progress Note Date: 03/02/23 CHIEF COMPLAINT: GI bleeding HISTORY OF PRESENT ILLNESS: Patient status post EGD revealing gastritis, small hiatal hernia and esophagitis. She denies any abdominal pain. Per nursing staff, patient did have bright red blood noted in her stools yesterday. No bowel movement today. Denies any nausea or vomiting. Patient does not want a colonoscopy. She is status post right sided thoracentesis with 1.3 L removed. Afebrile. Hemoglobin 15 down to 14.3 H be 6.9 up to 8.0 after 1 unit of blood PHYSICAL EXAM: VITAL SIGNS: Reviewed. GENERAL: Well-developed in no acute distress. ABDOMEN: Soft. Nondistended. Nontender. ASSESSMENT: 1. Anemia 2. GI bleed 3. Recent EGD with bleeding gastric polyp and gastritis on 01/18/2023 4. History of diverticulosis PLAN: -Patient refusing colonoscopy for tomorrow. Patient reports she does not want any further testing done. She wants to go home. -Colonoscopy cancelled for tomorrow per patient request -Continue to monitor hemoglobin -Continue to monitor for any signs or symptoms of bleeding -Continue IV Protonix -Keep Eliquis on Hold Physician Donation Worker note has been reviewed by physician. Signing provider agrees with the documented findings, assessment, and plan of care. Objective - Vital Signs Vital signs: Vital Signs Temp 96.7 F L 03/02/23 12:00 Pulse 67 03/02/23 12:00 Resp 17 03/02/23 12:00 BP 100/50 03/02/23 12:00 Pulse Ox 94 L 03/02/23 12:00 FiO2 Intake & Output 03/01/23 03/02/23 03/02/23 18:59 06:59 18:59 Intake Total 310 Balance 310 Intake: Oral 0 Blood Product 310 Rc As-1 Unit 310 [id number] Other: Voiding Method Bedpan Bedpan Bedpan Diaper Diaper Diaper # Voids 2 # Bowel Movements 1 - Labs CBC & Chem 7: 03/02/23 11:06 03/02/23 11:06 Labs: Abnormal Lab Results - Last 24 Hours (Table) 02/28/23 03/01/23 03/01/23 Range/Units 02:45 16:14 20:28 WBC (3.8-10.6) k/uL RBC (3.80-5.40) m/uL Hgb (11.4-16.0) gm/dL Hct (34.0-46.0) % MCHC (31.0-37.0) g/dL Neutrophils # (1.3-7.7) k/uL Lymphocytes # (1.0-4.8) k/uL Monocytes # (0-1.0) k/uL Sodium (137-145) mmol/L Carbon Dioxide (22-30) mmol/L BUN (7-17) mg/dL Creatinine (0.52-1.04) mg/dL POC Glucose (mg/dL) 130 H 149 H (70-110) mg/dL Calcium (8.4-10.2) mg/dL Crossmatch See Detail 03/02/23 03/02/23 03/02/23 Range/Units 11:06 11:06 11:48 WBC 14.3 H (3.8-10.6) k/uL RBC 2.85 L (3.80-5.40) m/uL Hgb 8.0 L (11.4-16.0) gm/dL Hct 26.5 L (34.0-46.0) % MCHC 30.0 L (31.0-37.0) g/dL Neutrophils # 11.3 H (1.3-7.7) k/uL Lymphocytes # 0.9 L (1.0-4.8) k/uL Monocytes # 1.5 H (0-1.0) k/uL Sodium 129 L (137-145) mmol/L Carbon Dioxide 15 L (22-30) mmol/L BUN 45 H (7-17) mg/dL Creatinine 1.25 H (0.52-1.04) mg/dL POC Glucose (mg/dL) 120 H (70-110) mg/dL Calcium 8.1 L (8.4-10.2) mg/dL Crossmatch Microbiology - Last 24 Hours (Table) 02/28/23 09:00 Blood Culture - Preliminary Blood
[2023-03-02 16:14] LABS: Glucose,Whole Blood 134 mg/dL (70-110)
[2023-03-02] MEDS: SODIUM CHLORIDE TAB 1 GM TAB PO SCH ×2 (17:33→21:17)
[2023-03-02 17:35] LABS: Appearance,BF Clear (Clear)
[2023-03-02] MEDS: FUROSEMIDE 40 MG TAB PO SCH (17:35)
[2023-03-02] MEDS ORDERED: HYDROcodone/APAP 5-325MG 1 EACH TAB PO PRN (17:45)
[2023-03-02 17:51] LABS: Glucose, BF Source Pleural Fluid; Glucose, Body Fluid 109 mg/dL; LDH, Body Fluid Source Pleural Fluid; T. Protein, Body Fluid Source Pleural Fluid; Total Protein, Body Fluid 694 mg/dL
[2023-03-02] MEDS: IPRATROPIUM-ALBUTEROL 3 ML NEB INHALATION PRN (21:00)
[2023-03-02] MEDS: ATORVASTATIN 40 MG TAB PO SCH (21:03)
[2023-03-02 21:50] LABS: Glucose,Whole Blood 119 mg/dL (70-110)
[2023-03-02 22:30] VITALS: RESP 18
[2023-03-03 06:13] LABS: Glucose,Whole Blood 122 mg/dL (70-110)
[2023-03-03] MEDS: GABAPENTIN 100 MG CAP PO SCH ×2 (06:50→15:39)
[2023-03-03 06:59] VITALS: PULSE 68
[2023-03-03] MEDS: SYMBICORT 160-4.5 MCG INHALER INHALATION SCH (07:35)
[2023-03-03] MEDS: AMIODARONE 200 MG TAB PO SCH (09:39)
[2023-03-03] MEDS: CYANOCOBALAMIN 500 MCG TAB PO SCH (09:39)
[2023-03-03] MEDS: methIMAzole 5 MG TAB PO SCH (09:40)
[2023-03-03] MEDS: SODIUM CHLORIDE TAB 1 GM TAB PO SCH (09:40)
[2023-03-03] MEDS: LETROZOLE 2.5 MG TAB PO SCH (09:40)
[2023-03-03] MEDS: LACTOBACILLUS ACIDOPHILUS/PECT 1 EACH CAPSULE PO SCH (09:40)
[2023-03-03] MEDS: DULoxetine HCL 60 MG CAPSULE.DR PO SCH (09:40)
[2023-03-03] MEDS: METOPROLOL TARTRATE 25 MG TAB PO SCH (09:40)
[2023-03-03] MEDS: MONTELUKAST 10 MG TAB PO SCH (09:40)
[2023-03-03] MEDS: PANTOPRAZOLE 40 MG/10 ML VIAL IV SCH (09:40)
[2023-03-03] MEDS: FUROSEMIDE 40 MG TAB PO SCH (09:40)
[2023-03-03 11:14] LABS: Basophils % (A) 0 %; Eosinophils # (A) 0.4 k/uL (0-0.7); Eosinophils % (A) 3 %; HGB 8.2 gm/dL (11.4-16.0); Hypochromasia Marked; Lymphocytes # (A) 0.9 k/uL (1.0-4.8); Lymphocytes % (A) 8 %; MCH 27.9 pg (25.0-35.0); MCHC 30.5 g/dL (31.0-37.0); MCV 91.7 fL (80.0-100.0); Mean Platelet Volume 8.6; Monocytes # (A) 0.9 k/uL (0-1.0); Monocytes % (A) 8 %; Neutrophils # (A) 9.9 k/uL (1.3-7.7); Neutrophils % (A) 80 %; Platelet Count 234 k/uL (150-450); Poikilocytosis Slight; RBC 2.95 m/uL (3.80-5.40); RDW 15.3 % (11.5-15.5); WBC 12.3 k/uL (3.8-10.6)
[2023-03-03 11:37] LABS: Glucose,Whole Blood 110 mg/dL (70-110)
--- NOTE | 2023-03-03 11:52 | P.PN ---
Subjective Progress Note Date: 03/03/23 CHIEF COMPLAINT: GI bleeding HISTORY OF PRESENT ILLNESS: Patient status post EGD revealing gastritis, small hiatal hernia and esophagitis. She denies any abdominal pain. No further blood reported in the stools per nursing staff. Patient refused colonoscopy yesterday and is now willing to proceed with colonoscopy. Unfortunately colonoscopy cannot be completed today. Patient did not do bowel prep yesterday. Afebrile. WBC 12.3 HGB 8.2 plt 234 PHYSICAL EXAM: VITAL SIGNS: Reviewed. GENERAL: Well-developed in no acute distress. ABDOMEN: Soft. Nondistended. Nontender. ASSESSMENT: 1. Anemia 2. GI bleed 3. Recent EGD with bleeding gastric polyp and gastritis on 01/18/2023 4. History of diverticulosis PLAN: -Patient is now willing to proceed with colonoscopy. Colonoscopy will be scheduled for 03/07/[address] Son -Advance diet to Regular for now -Continue IV Protonix -Keep Eliquis on Hold Physician Surface Supervisor note has been reviewed by physician. Signing provider agrees with the documented findings, assessment, and plan of care. Objective - Vital Signs Vital signs: Vital Signs Temp 96.7 F L 03/02/23 12:00 Pulse 68 03/03/23 04:00 Resp 18 03/03/23 04:00 BP 127/50 03/03/23 04:00 Pulse Ox 92 L 03/03/23 04:00 FiO2 Intake & Output 03/02/23 03/03/23 03/03/23 18:59 06:59 18:59 Intake Total 180 0 Output Total 500 Balance 180 -500 0 Intake: Oral 180 0 Output: Urine 500 Other: Voiding Method Bedpan Bedpan Diaper Diaper External Catheter # Bowel Movements 1 - Labs CBC & Chem 7: 03/03/23 10:51 03/02/23 11:06 Labs: Abnormal Lab Results - Last 24 Hours (Table) 03/02/23 03/02/23 03/02/23 Range/Units 11:06 11:06 11:06 WBC 14.3 H (3.8-10.6) k/uL RBC 2.85 L (3.80-5.40) m/uL Hgb 8.0 L (11.4-16.0) gm/dL Hct 26.5 L (34.0-46.0) % MCHC 30.0 L (31.0-37.0) g/dL Neutrophils # 11.3 H (1.3-7.7) k/uL Lymphocytes # 0.9 L (1.0-4.8) k/uL Monocytes # 1.5 H (0-1.0) k/uL Sodium 129 L (137-145) mmol/L Carbon Dioxide 15 L (22-30) mmol/L BUN 45 H (7-17) mg/dL Creatinine 1.25 H (0.52-1.04) mg/dL POC Glucose (mg/dL) (70-110) mg/dL Calcium 8.1 L (8.4-10.2) mg/dL Lactate Dehydrogenase 252 H (120-246) U/L Total Protein 4.8 L (6.3-8.2) g/dL 03/02/23 03/02/23 03/02/23 Range/Units 11:48 16:12 21:48 WBC (3.8-10.6) k/uL RBC (3.80-5.40) m/uL Hgb (11.4-16.0) gm/dL Hct (34.0-46.0) % MCHC (31.0-37.0) g/dL Neutrophils # (1.3-7.7) k/uL Lymphocytes # (1.0-4.8) k/uL Monocytes # (0-1.0) k/uL Sodium (137-145) mmol/L Carbon Dioxide (22-30) mmol/L BUN (7-17) mg/dL Creatinine (0.52-1.04) mg/dL POC Glucose (mg/dL) 120 H 134 H 119 H (70-110) mg/dL Calcium (8.4-10.2) mg/dL Lactate Dehydrogenase (120-246) U/L Total Protein (6.3-8.2) g/dL 03/03/23 Range/Units 06:12 WBC (3.8-10.6) k/uL RBC (3.80-5.40) m/uL Hgb (11.4-16.0) gm/dL Hct (34.0-46.0) % MCHC (31.0-37.0) g/dL Neutrophils # (1.3-7.7) k/uL Lymphocytes # (1.0-4.8) k/uL Monocytes # (0-1.0) k/uL Sodium (137-145) mmol/L Carbon Dioxide (22-30) mmol/L BUN (7-17) mg/dL Creatinine (0.52-1.04) mg/dL POC Glucose (mg/dL) 122 H (70-110) mg/dL Calcium (8.4-10.2) mg/dL Lactate Dehydrogenase (120-246) U/L Total Protein (6.3-8.2) g/dL Microbiology - Last 24 Hours (Table) 03/02/23 09:00 Gram Stain - Preliminary Pleural Fluid Body Fluid Culture - Preliminary 02/28/23 09:00 Blood Culture - Preliminary Blood
--- NOTE | 2023-03-03 12:45 | P.DS ---
Providers Date of admission: 02/28/23 06:54 Expected date of discharge: 03/03/23 Attending physician: Natasha Coffey MD Consults: 02/28/23 06:54 Consult Physician Routine Consulting Provider: Jaskaran Son Consult Reason/Comments: GI Bleeding. Recent upper endoscopy Do you want consulting provider notified?: Yes 02/28/23 11:09 Consult Physician Routine Consulting Provider: Shay Avila Consult Reason/Comments: pleural effusion, hypoxia Do you want consulting provider notified?: Yes Primary care physician: Teja Lozano MD Hospital Course: Acute blood loss anemia, stable, status post 1 unit of PRBCs Upper GI bleed Antral gastritis mild esophagitis Diarrhea, slightly improved Hyperthyroidism Acute on chronic hypoxic respiratory failure Right lower lobe pleural effusion/atelectasis COPD without exacerbation Acute kidney injury, resolving Hyponatremia Metabolic acidosis, likely in the setting of diarrhea Acute metabolic/toxic encephalopathy, resolved Leukocytosis slowly improving Outpatient treatment of urinary tract infection, urinalysis not consistent with urinary tract infection at the moment Chronic: Atrial fibrillation Chronic diastolic heart failure Polio with right-sided deficit Hospital Course: 67-year-old female with history of polio with right-sided neuropathy/deficits, atrial fibrillation on Eliquis, COPD with chronic hypoxic respiratory failure on 2-3 L [id number], CAD status post CABG, hypertension, dyslipidemia, insulin-dependent diabetes presenting with generalized weakness and melena. In the ED, temperature was 97.6, pulse 73, respiratory rate 20, blood pressure 72/52, saturating at 88% on 6 L. WBC 17.5, hemoglobin 8, INR 1.5, creatinine 1.59, baseline around 1.4, sodium 131, lactate 2.2, C. diff negative. Chest x- ray shows right lower lobe opacity. She was given 1 L of normal saline in the ED, started on IV pantoprazole, surgery was consulted for presumptive GI bleed. EGD showed antral gastritis and mild esophagitis. She refused colonoscopy. Status post 1 unit of PRBCs. Also status post right thoracentesis. Pt was treated with abx for presumed pneumonia, but this was ruled out with negative pleural fluid microbiology. Pts Eliquis was discontinued on discharge. Hgbs remained stable. Lasix was downtitrated to daily from home dose. [place] dose was downtitrated from home dose. Pt should f/u with PCP, and with GI. Ongoing PPI BID. She should continue her course of cefuroxime for UTI. I spent 45 minutes coordinating this discharge on 03/03 Gen: awake, alert HEENT: normocephalic, atraumatic, good hearing acuity, moist mucous membranes Resp: good air exchange, breathing comfortably with no accessory muscle use CVS: good distal perfusion x 4, GI: soft, NTTP, ND : no SPT, no CVAT, stacy catheter not present MSK: no pitting edema, no clubbing Neuro: non-focal, moving all extremities Psych: cooperative, euthymic mood Patient Condition at Discharge: Fair Plan - Discharge Summary Discharge Rx Participant: Yes New Discharge Prescriptions: New HYDROcodone/APAP 5-325MG [[place] 5-325] 1 each PO Q8HR PRN #9 tab PRN Reason: Pain Furosemide [Lasix] 40 mg PO DAILY tab Continue DULoxetine HCL [Cymbalta] 60 mg PO QAM Atorvastatin [Lipitor] 40 mg PO HS Budesonide-Formot 160-4.5 Mcg [Symbicort 160-4.5 Mcg Inhaler] 2 puff INHALATION RT-BID@0800,1700 Letrozole [Femara] 2.5 mg PO QAM Biotin [Biotin Disolve] 10,000 mcg PO QAM Cholecalciferol [Vitamin D3 (125 Mcg = 5000 Iu)] 125 mcg PO QAM Cyanocobalamin (Vitamin B-12) [Vitamin B-12] 2,000 mcg PO QAM Albuterol Inhaler [Ventolin Hfa Inhaler] 2 puff INHALATION RT-QID PRN PRN Reason: Shortness Of Breath Lactobacillus Acidophilus [Acidophilus Probiotic] 1 cap PO QAM Simethicone Chew [Mylicon Chew] 80 mg PO QID PRN tab PRN Reason: Bloating Magic Butt Paste 1 applic TOPICAL TID@0800,1400,2100 bisacodyL [Dulcolax] 10 mg RECTAL DAILY PRN PRN Reason: Constipation cefUROXime axetiL [Ceftin] 500 mg PO BID@0800,1700 Ferrous Sulfate [Iron (65 MG Elemental)] 325 mg PO DAILY@1400 Magnesium Hydroxide [Milk of Magnesia Concentrate] 7,200 mg PO DAILY PRN PRN Reason: Constipation Na Phos,M-B/Na Phos,Di-Ba [Fleet Adult] 133 ml RECTAL DAILY PRN PRN Reason: Constipation Ondansetron [Zofran] 4 mg PO Q8HR PRN PRN Reason: Nausea Potassium Chloride [Klor-Con M20] 20 meq PO QAM Gabapentin 600 mg PO TID@0600,1400,2200 #9 tab Montelukast [Singulair] 10 mg PO QAM Amiodarone [Cordarone] 200 mg PO BID@0800,1700 Ubidecarenone [Coenzyme Q10] 200 mg PO QAM Acetaminophen Tab [Tylenol] 650 mg PO Q6HR PRN tab PRN Reason: Fever And/ Or Pain Ascorbic Acid [Vitamin C] 250 mg PO DAILY Ipratropium-Albuterol Nebulize [Duoneb 0.5 mg-3 mg/3 ml Soln] 3 ml INHALATION RT-Q6H PRN PRN Reason: Shortness Of Breath Loperamide HCl [Imodium A-D] 2 - 4 mg PO QID PRN MDD 4 TABLETS PRN Reason: Diarrhea Loratadine [Claritin] 10 mg PO DAILY PRN PRN Reason: Allergy Symptoms methIMAzole [Tapazole] 5 mg PO QAM Metoprolol Tartrate [Lopressor] 25 mg PO BID@0800,1700 Pantoprazole [Protonix] 40 mg PO BID@0800,1700 Discontinued Apixaban [Eliquis] 2.5 mg PO BID@0800,1700 HYDROcodone/APAP 10-325MG [[place] 10-325] 1 tab PO Q6H PRN PRN Reason: Pain Furosemide [Lasix] 40 mg PO BID@0600,1400 Discharge Medication List Atorvastatin [Lipitor] 40 mg PO HS 03/23/16 [History] DULoxetine HCL [Cymbalta] 60 mg PO QAM 03/23/16 [History] Montelukast [Singulair] 10 mg PO QAM 05/18/21 [History] Budesonide-Formot 160-4.5 Mcg [Symbicort 160-4.5 Mcg Inhaler] 2 puff INHALATION RT-BID@0800,1700 04/06/22 [History] Biotin [Biotin Disolve] 10,000 mcg PO QAM 09/03/22 [History] Letrozole [Femara] 2.5 mg PO QAM 09/03/22 [History] Cholecalciferol [Vitamin D3 (125 Mcg = 5000 Iu)] 125 mcg PO QAM 09/06/22 [History] Cyanocobalamin (Vitamin B-12) [Vitamin B-12] 2,000 mcg PO QAM 09/06/22 [History] Albuterol Inhaler [Ventolin Hfa Inhaler] 2 puff INHALATION RT-QID PRN 11/10/22 [History] Amiodarone [Cordarone] 200 mg PO BID@0800,1700 11/10/22 [History] Lactobacillus Acidophilus [Acidophilus Probiotic] 1 cap PO QAM 11/29/22 [History] Ubidecarenone [Coenzyme Q10] 200 mg PO QAM 11/29/22 [History] Acetaminophen Tab [Tylenol] 650 mg PO Q6HR PRN tab 12/07/22 [Rx] Simethicone Chew [Mylicon Chew] 80 mg PO QID PRN tab 12/07/22 [Rx] Ascorbic Acid [Vitamin C] 250 mg PO DAILY 01/14/23 [History] Ferrous Sulfate [Iron (65 MG Elemental)] 325 mg PO DAILY@1400 02/28/23 [History] Ipratropium-Albuterol Nebulize [Duoneb 0.5 mg-3 mg/3 ml Soln] 3 ml INHALATION RT-Q6H PRN 02/28/23 [History] Loperamide HCl [Imodium A-D] 2 - 4 mg PO QID PRN MDD 4 TABLETS 02/28/23 [History] Loratadine [Claritin] 10 mg PO DAILY PRN 02/28/23 [History] Magic Butt Paste 1 applic TOPICAL TID@0800,1400,2100 02/28/23 [History] Magnesium Hydroxide [Milk of Magnesia Concentrate] 7,200 mg PO DAILY PRN 02/28/23 [History] Metoprolol Tartrate [Lopressor] 25 mg PO BID@0800,1700 02/28/23 [History] Na Phos,M-B/Na Phos,Di-Ba [Fleet Adult] 133 ml RECTAL DAILY PRN 02/28/23 [History] Ondansetron [Zofran] 4 mg PO Q8HR PRN 02/28/23 [History] Pantoprazole [Protonix] 40 mg PO BID@0800,1700 02/28/23 [History] Potassium Chloride [Klor-Con M20] 20 meq PO QAM 02/28/23 [History] bisacodyL [Dulcolax] 10 mg RECTAL DAILY PRN 02/28/23 [History] cefUROXime axetiL [Ceftin] 500 mg PO BID@0800,1700 02/28/23 [History] methIMAzole [Tapazole] 5 mg PO QAM 02/28/23 [History] Furosemide [Lasix] 40 mg PO DAILY tab 03/03/23 [Rx] Gabapentin 600 mg PO TID@0600,1400,2200 #9 tab 03/03/23 [Rx] HYDROcodone/APAP 5-325MG [[place] 5-325] 1 each PO Q8HR PRN #9 tab 03/03/23 [Rx] Follow up Appointment(s)/Referral(s): Teja Lozano MD [Primary Care Provider] - 1-2 days Discharge Disposition: TRANSFER TO SNF/ECF
[2023-03-03 12:55] LABS: African American GFR (CKD) 47 (>60 ml/min/1.73 sqM); Anion Gap 8 mmol/L; Blood Urea Nitrogen 41 mg/dL (7-17); Calcium 8.2 mg/dL (8.4-10.2); Carbon Dioxide 16 mmol/L (22-30); Chloride 106 mmol/L (98-107); Glucose 92 mg/dL (74-99); Non-African American GFR(CKD) 41 (>60 ml/min/1.73 sqM); Potassium 3.8 mmol/L (3.5-5.1); Sodium 130 mmol/L (137-145)
[2023-03-03 13:23] LABS: T4, Free (Free Thyroxine) 3.95 ng/dL (0.78-2.19)
--- NOTE | 2023-03-03 14:15 | P.PN ---
Subjective Progress Note Date: 03/03/23 67-year-old female patient was being seen in the emergency department because of pleural effusion and hypoxemia. The patient is a 67-year-old female patient who presented to us from halfway. She was having black tarry stools over the course of yesterday. She denies having any nausea or vomiting. Denies having any abdominal pain. No chest pain. No dizziness. No syncope. No palpitation. She was feeling overall weak. She was in the hospital back in January 2023 and the patient underwent a EGD on 02/14/2022 that showed antral gastritis and a bleeding gastric polyp. Biopsy was performed. At that time, the gastric polyp appeared to be the source of bleeding. The rest of the examination was within normal limits. The patient was subsequently discharged home after eating treated for GI bleed and acute blood loss anemia. She also had an acute kidney injury for which she recovered. She is known to have COPD and she is actually dependent between 2 and 3 L and she has diastolic heart failure, chronic A. fib, coronary artery disease with previous bypass surgery, hypertension hyperl ipidemia and insulin-dependent diabetes mellitus. The patient also has history of polio and right-sided neuropathy and motor deficits with worsening right lower extremity weakness and generalized debility. At that time, she was receiving anticoagulation with Eliquis and this was held. In terms of her breathing, the patient is currently on 6 L of O2 nasal cannula. The chest x-ray showed increased pulmonary vessel markings and there was a suspected right-sided pleural effusion. Postthoracotomy changes were also seen in the chest. Ultrasound of the chest was done and the patient was found to have an 8.2 cm pocket of the right side of the lung.in terms of the labs, the debility score is at 17.7, hemoglobin is at 8.0, platelet count is at 251 and the patient has a INR of 1.5 with a PT of 15.3 and a PTT of 29, BUN is a 53 with a creatinine of 1.5 and a sodium level is at 131, lactic acid level dropped down to 1.6 from 2.2, AST of 77, alkaline phosphatase of 172, alcohol stool was positive, stool for C. diff was negative.note that the patient was taken and the coagulation with Eliquis 2.5 mg twice a day. On 03/01/2023, the patient is feeling better. She is awake and alert and she is communicating. She underwent an EGD today and it showed no evidence of any active bleeding. The patient has antral gastritis, small hiatal hernia and mild esophagitis. The patient's hemoglobin is at 6.9 and the patient will need a units of packed RBC. This will be transfused today. The white cycles of 15. BUN is 47 with a creatinine of 1.3 and a sodium level of 131. As far as the the pleural effusion, the patient had an ultrasound of the chest that showed a 8.2 cm pocket on the right. I'm planning to do a thoracentesis as such the patient is currently off anticoagulation. The patient is being gently hydrated with normal saline at rate of 75 mL an hour. She remains nothing by mouth for now. No chest pain. No shortness of breath. She is on 4 L of O2 nasal cannula with a pulse ox of 90%. No nausea or vomiting or abdominal pain. Today's evaluation of 03/02 2023, the patient is being seen for a follow-up. The patient got transfused with a unit of packed RBC yesterday. Follow-up hemoglobin is pending for now. In terms of bleeding, the patient remains off anticoagulation and the patient has not shown any signs of any acute bleeding over the past 24 hours. She remains an option 3 L/m nasal cannula. She is having some mild shortness of breath even at rest. She has generalized body aches. She is covered with broad-spectrum antibiotics with a combination of Rocephin and Zithromax. The pleural effusion is most likely a transudate. Going to the bedside diagnostic and therapeutic thoracentesis on this patient now that she's been off anticoagulation. No nausea. No emesis. No abdominal pain. On 03/03/2023, the patient is resting comfortably in bed. No signs of any respiratory distress. The patient underwent a thoracentesis of the right lung yesterday and the patient was found to have a transudative pleural fluid with low LDH and low protein. Pleural fluid cytology is still pending for now. No complications with a follow-up chest x-ray shows no evidence of any pneumothorax and there is adequate expansion of the right lung. Meanwhile, the patient is not showing any signs of GI bleeding. The patient is still off anticoagulation. Hemoglobin is at 8.2 which is stable compared to yesterday. Sodium level is at 130, BUN is at 41 with a creatinine of 1.3. Serum bicarb is at 16. The plan was offered a colonoscopy and she refuses. During the course of the hospitalization, the patient received a unit of packed RBC. She is currently on PPI. She is also completing a course of cefuroxime for UTI. Objective - Vital Signs Vital signs: Vital Signs Temp 96.7 F L 03/02/23 12:00 Pulse 68 03/03/23 04:00 Resp 18 03/03/23 04:00 BP 127/50 03/03/23 04:00 Pulse Ox 92 L 03/03/23 04:00 FiO2 Intake & Output 03/02/23 03/03/23 03/03/23 18:59 06:59 18:59 Intake Total 180 0 Output Total 500 Balance 180 -500 0 Intake: Oral 180 0 Output: Urine 500 Other: Voiding Method Bedpan Bedpan Diaper Diaper External Catheter # Bowel Movements 1 - Exam Gen: in no apparent distress, resting comfortably in bed, the patient is currently on 4 L O2 nasal cannula with a pulse ox of 97% Eyes: PERRL, no scleral injection or icterus HENT: normocephalic, atraumatic, good hearing acuity, moist mucous membranes Neck: no tracheal deviation, full range of motion Resp: The patient diminished breath on the right lung the lung with dullness to percussion consistent with pleural effusion. CVS: good distal perfusion x 4, bilateral 1+ pitting edema GI: soft, NTTP, ND, no hepatosplenomegaly : no suprapubic tenderness, no CVAT, stacy catheter not present MSK: no clubbing, no cyanosis, no noted contractures of extremities Skin: no noted rashes, petechiae; temperature of skin is appropriate Neuro: moving all extremities without signs of weakness, CN II-XII intact Psych: cooperative, euthymic mood, insight and judgment intact - Labs CBC & Chem 7: 03/03/23 10:51 03/03/23 10:51 Labs: Abnormal Lab Results - Last 24 Hours (Table) 03/02/23 03/02/23 03/02/23 Range/Units 11:06 11:06 11:06 WBC 14.3 H (3.8-10.6) k/uL RBC 2.85 L (3.80-5.40) m/uL Hgb 8.0 L (11.4-16.0) gm/dL Hct 26.5 L (34.0-46.0) % MCHC 30.0 L (31.0-37.0) g/dL Neutrophils # 11.3 H (1.3-7.7) k/uL Lymphocytes # 0.9 L (1.0-4.8) k/uL Monocytes # 1.5 H (0-1.0) k/uL Sodium 129 L (137-145) mmol/L Carbon Dioxide 15 L (22-30) mmol/L BUN 45 H (7-17) mg/dL Creatinine 1.25 H (0.52-1.04) mg/dL POC Glucose (mg/dL) (70-110) mg/dL Calcium 8.1 L (8.4-10.2) mg/dL Lactate Dehydrogenase 252 H (120-246) U/L Total Protein 4.8 L (6.3-8.2) g/dL 03/02/23 03/02/23 03/02/23 Range/Units 11:48 16:12 21:48 WBC (3.8-10.6) k/uL RBC (3.80-5.40) m/uL Hgb (11.4-16.0) gm/dL Hct (34.0-46.0) % MCHC (31.0-37.0) g/dL Neutrophils # (1.3-7.7) k/uL Lymphocytes # (1.0-4.8) k/uL Monocytes # (0-1.0) k/uL Sodium (137-145) mmol/L Carbon Dioxide (22-30) mmol/L BUN (7-17) mg/dL Creatinine (0.52-1.04) mg/dL POC Glucose (mg/dL) 120 H 134 H 119 H (70-110) mg/dL Calcium (8.4-10.2) mg/dL Lactate Dehydrogenase (120-246) U/L Total Protein (6.3-8.2) g/dL 03/03/23 Range/Units 06:12 WBC (3.8-10.6) k/uL RBC (3.80-5.40) m/uL Hgb (11.4-16.0) gm/dL Hct (34.0-46.0) % MCHC (31.0-37.0) g/dL Neutrophils # (1.3-7.7) k/uL Lymphocytes # (1.0-4.8) k/uL Monocytes # (0-1.0) k/uL Sodium (137-145) mmol/L Carbon Dioxide (22-30) mmol/L BUN (7-17) mg/dL Creatinine (0.52-1.04) mg/dL POC Glucose (mg/dL) 122 H (70-110) mg/dL Calcium (8.4-10.2) mg/dL Lactate Dehydrogenase (120-246) U/L Total Protein (6.3-8.2) g/dL Microbiology - Last 24 Hours (Table) 03/02/23 09:00 Gram Stain - Preliminary Pleural Fluid Body Fluid Culture - Preliminary 02/28/23 09:00 Blood Culture - Preliminary Blood Assessment and Plan Plan: Acute on chronic dyspnea, multifactorial. The patient has background COPD and the patient has also developed enlarging right-sided pleural effusion probably related to decompensated heart failure/CHF. the patient developed a right-sided pleural effusion. The patient is known to have CHF with preserved LV and diastolic heart failure although her most recent echocardiogram showed a preserved LV function with a diastolic pattern that was consistent with her age. She also has moderate degree of pulmonary hypertension and RV dilatation. She is currently on 3 L of action nasal cannula . The patient had a thoracentesis of the pleural fluid was essentially transudate.. The total amount of fluid removed from the right lung was around 1.3 L Right-sided pleural effusion, likely secondary to CHF, 1.3 L of fluid was aspirated without any complications. Acute on top of chronic hypoxic respiratory failure currently on 3 L nasal cannula recurrent right pleural effusion, likely secondary to CHF, currently on diuretics COPD with upper lobe predominance maintain on Symbicort on outpatient basis recurrent GI bleed, likely secondary to bleeding gastric polyp. EGD was done on 01/18/2023. Current hemoglobin is at 6.9, the patient was transfused with a unit of packed RBC. Follow-up hemoglobin is pending. The patient is currently off anticoagulants. gastric polyp Diverticulosis based on a colonoscopy that was done on 12/27/2022 Coronary artery disease with previous bypass surgery Paroxysmal A. fib current rhythm is sinus and the patient is admitted on anticoagulants. She has also underlying bundle branch block pattern Hypertension Hyperlipidemia Diabetes mellitus type 2 Right-sided breast cancer with a previous lumpectomy and sentinel lymph node biopsy and the patient is currently on hormonal treatment. recurrent blood loss anemia , likely secondary to GI bleeding Chronic back pain with previous back surgery currently maintained on [place] and Neurontin. The patient has undergone a surgery for severe lumbar stenosis L2 through S1 and the patient has undergone laminectomy and facetectomy and foraminotomy with fusion at multiple levels. History of her lumbar wound dehiscence with serous drainage back in June 2022 Previous history of spontaneous pneumothorax on the left History of previous poliomyelitis on the right C. diff colitis in the past, treated Mild coagulopathy, INR is 1.5 Plan Thoracentesis was performed successfully. Chest x-ray shows no evidence of any complications. The patient is currently off anticoagulation Declined colonoscopy Hemoglobin is stable We'll continue to follow
[2023-03-03 15:36] VITALS: BP 100/61; TEMP 97.7
== END 2023-03-03 15:42 | DRG 377 ==
LOC: EC 02:08 → 4SSUR 06:54 → 3SCARD 17:43 → 4SSUR 17:51 → 3SCARD 18:39
PROVIDERS: ADMIT Internal Medicine; ATTEND Internal Medicine
PROC: 0DB78ZX Excision of Stomach, Pylorus, Via Natural or Artificial Opening Endoscopic, Diagnostic (ICD-10-PCS; principal; 2023-02-28 08:50)
PROC: 0DB38ZX Excision of Lower Esophagus, Via Natural or Artificial Opening Endoscopic, Diagnostic (ICD-10-PCS; principal; 2023-02-28 08:50)
PROC: 30233N1 Transfusion of Nonautologous Red Blood Cells into Peripheral Vein, Percutaneous Approach (ICD-10-PCS; 2023-03-01)
PROC: 0W993ZX Drainage of Right Pleural Cavity, Percutaneous Approach, Diagnostic (ICD-10-PCS; 2023-03-02)
DX: K29.71 Gastritis, unspecified, with bleeding (principal); G92.8 Other toxic encephalopathy; J96.21 Acute and chronic respiratory failure with hypoxia; I50.33 Acute on chronic diastolic (congestive) heart failure; N17.9 Acute kidney failure, unspecified; E87.20 Acidosis, unspecified; J91.8 Pleural effusion in other conditions classified elsewhere; D62 Acute posthemorrhagic anemia; E87.1 Hypo-osmolality and hyponatremia; N39.0 Urinary tract infection, site not specified; J98.11 Atelectasis; I27.20 Pulmonary hypertension, unspecified; I95.9 Hypotension, unspecified; E11.40 Type 2 diabetes mellitus with diabetic neuropathy, unspecified; I11.0 Hypertensive heart disease with heart failure; C50.911 Malignant neoplasm of unspecified site of right female breast; J44.9 Chronic obstructive pulmonary disease, unspecified; I48.0 Paroxysmal atrial fibrillation; B91 Sequelae of poliomyelitis; K44.9 Diaphragmatic hernia without obstruction or gangrene; K21.00 Gastro-esophageal reflux disease with esophagitis, without bleeding; I25.10 Atherosclerotic heart disease of native coronary artery without angina pectoris; G62.9 Polyneuropathy, unspecified; E05.90 Thyrotoxicosis, unspecified without thyrotoxic crisis or storm; E78.5 Hyperlipidemia, unspecified; F32.A Depression, unspecified; F41.9 Anxiety disorder, unspecified; K57.90 Diverticulosis of intestine, part unspecified, without perforation or abscess without bleeding; G89.29 Other chronic pain; M54.50 Low back pain, unspecified; Z53.20 Procedure and treatment not carried out because of patient's decision for unspecified reasons; Z79.01 Long term (current) use of anticoagulants; Z79.51 Long term (current) use of inhaled steroids; Z79.899 Other long term (current) drug therapy; Z79.811 Long term (current) use of aromatase inhibitors; Z95.1 Presence of aortocoronary bypass graft; Z87.891 Personal history of nicotine dependence; Z88.5 Allergy status to narcotic agent; Z88.2 Allergy status to sulfonamides
CPT/HCPCS: 36415; 43239; 71045; 76604; 80048; 80053; 81001; 82272; 82945; 83605; 83615; 83735; 84155; 84157; 84439; 84443; 84484; 85025; 85610; 85730; 86850; 86900; 86901; 86920; 87040; 87070; 87205; 87324; 88108; 88305; 88312; 88341; 88342; 89050; 94640; 96361; 96365; 96366; 96368; 96375; 99285

== ENCOUNTER 2023-03-14 15:32 | Inpatient (IN) | payer OTHER ==
--- NOTE | 2023-03-14 16:06 | ED ---
General Adult HPI - General Chief complaint: Altered Mental Status Stated complaint: AMS Time Seen by Provider: 03/14/23 15:45 Source: RN/MD, RN notes reviewed, old records reviewed Limitations: altered mental status - History of Present Illness Initial comments: This is a 67-year-old female presents emergency Department from the longterm to the hospital to get a colonoscopy. According to staff when she was in endoscopy she was altered and her pulse ox was low so they sent her to the emergency department. Patient is a poor historian. Patient denies any fever chills per patient denies chest pain or abdominal pain. Patient states she used to be a smoker and has had emphysema. Patient is on eliquis but she does not know why. There is no one else with the patient to give any further history we will hopefully try to contact the longterm for more information - Related Data Home Medications Medication Instructions Recorded Confirmed Atorvastatin [Lipitor] 40 mg PO HS@2100 03/23/16 03/14/23 DULoxetine HCL [Cymbalta] 60 mg PO DAILY@0800 03/23/16 03/14/23 Montelukast [Singulair] 10 mg PO DAILY@0800 05/18/21 03/14/23 Budesonide-Formot 160-4.5 Mcg 2 puff INHALATION RT-BID@0800,1700 04/06/22 03/14/23 [Symbicort 160-4.5 Mcg Inhaler] Biotin [Biotin Disolve] 10,000 mcg PO DIRECTED 09/03/22 03/14/23 Letrozole [Femara] 2.5 mg PO DAILY@0800 09/03/22 03/14/23 Cholecalciferol [Vitamin D3 (125 125 mcg PO DIRECTED 09/06/22 03/14/23 Mcg = 5000 Iu)] Cyanocobalamin (Vitamin B-12) 2,000 mcg PO DIRECTED 09/06/22 03/14/23 [Vitamin B-12] Albuterol Inhaler [Ventolin Hfa 2 puff INHALATION RT-QID PRN 11/10/22 03/14/23 Inhaler] Amiodarone [Cordarone] 200 mg PO BID@0800,1700 11/10/22 03/14/23 Lactobacillus Acidophilus 1 cap PO DIRECTED 11/29/22 03/14/23 [Acidophilus Probiotic] Ubidecarenone [Coenzyme Q10] 200 mg PO DIRECTED 11/29/22 03/14/23 Ascorbic Acid [Vitamin C] 250 mg PO DIRECTED 01/14/23 03/14/23 Ferrous Sulfate [Iron (65 MG 325 mg PO DIRECTED 02/28/23 03/14/23 Elemental)] Ipratropium-Albuterol Nebulize 3 ml INHALATION RT-Q6H PRN 02/28/23 03/14/23 [Duoneb 0.5 mg-3 mg/3 ml Soln] Loperamide HCl [Imodium A-D] 2 - 4 mg PO QID PRN MDD 4 TABLETS 02/28/23 03/14/23 Loratadine [Claritin] 10 mg PO DAILY PRN 02/28/23 03/14/23 Magic Butt Paste 1 applic TOPICAL TID@0800,1400,2100 02/28/23 03/14/23 Magnesium Hydroxide [Milk of 7,200 mg PO DAILY PRN 02/28/23 03/14/23 Magnesia Concentrate] Metoprolol Tartrate [Lopressor] 25 mg PO BID@0800,1700 02/28/23 03/14/23 Na Phos,M-B/Na Phos,Di-Ba [Fleet 133 ml RECTAL DAILY PRN 02/28/23 03/14/23 Adult] Ondansetron [Zofran] 4 mg PO Q8HR PRN 02/28/23 03/14/23 Pantoprazole [Protonix] 40 mg PO BID@0800,1700 02/28/23 03/14/23 Potassium Chloride [Klor-Con M20] 20 meq PO DIRECTED 02/28/23 03/14/23 bisacodyL [Dulcolax] 10 mg RECTAL DAILY PRN 02/28/23 03/14/23 methIMAzole [Tapazole] 5 mg PO DAILY@0800 02/28/23 03/14/23 Furosemide [Lasix] 40 mg PO DAILY@0800 03/14/23 03/14/23 HYDROcodone/APAP 5-325MG [[place] 1 tab PO Q8HR PRN 03/14/23 03/14/23 5-325] Linezolid [Zyvox] 600 mg PO BID@0800,1700 03/14/23 03/14/23 metroNIDAZOLE [Flagyl] 250 mg PO TID@0600,1400,2200 03/14/23 03/14/23 Previous Rx's Medication Instructions Recorded Acetaminophen Tab [Tylenol] 650 mg PO Q6HR PRN tab 12/07/22 Simethicone Chew [Mylicon Chew] 80 mg PO QID PRN tab 12/07/22 Gabapentin 600 mg PO TID@0600,1400,2200 #9 tab 03/03/23 Allergies Allergy/AdvReac Type Severity Reaction Status Date / Time mayonnaise Allergy Unknown Verified 03/14/23 17:06 morphine Allergy rash,itchin Verified 03/14/23 17:06 g Sulfa (Sulfonamide Allergy Rash/Hives Verified 03/14/23 17:06 Antibiotics) amoxicillin [From Augmentin] AdvReac Diarrhea Verified 03/14/23 17:06 clavulanic acid AdvReac Diarrhea Verified 03/14/23 17:06 [From Augmentin] surgical susy AdvReac infection Uncoded 03/08/23 12:38 Review of Systems ROS Statement: Those systems with pertinent positive or pertinent negative responses have been documented in the HPI. ROS Other: All systems not noted in ROS Statement are negative. Past Medical History Past Medical History: Atrial Fibrillation, Coronary Artery Disease (CAD), Cancer, Heart Failure, COPD, Diabetes Mellitus, GERD/Reflux, GI Bleed, Hyperlipidemia, Hypertension, Skin Disorder Additional Past Medical History / Comment(s): Pt recently admitted to [facility] w/tarry stools, GI bleeding, anemia, had transfusion Tuesday02-28-23, EGD showed mild gastritis, refused colonoscopy when here recently, resolving UTI, d/c to [facility] 03-03-23, per her nurse Ana she signs own consents, is alert & oriented, current skin breakdown/excoriation on buttocks-had been having loose stools, chronic chf, moderate pulmonary HTN, acute kidney injury, paroxysmal afib, acute blood loss anemia. Other hx: post polio syndrome rt side, neuropathy, hx. spontaneous pneumothorax after cabg, home oxygen at 2L/NC ATC, now NIDDM, chronic transaminitis, bowel resection for sepsis/infection, R breast cancer with lumpectomy only. this procedure was rescheduled due to no bowel prep and refusal to leave [place] History of Any Multi-Drug Resistant Organisms: ESBL Date of last positivie culture/infection: 06/29/21 MDRO Source:: ESBL BACK Past Surgical History: Back Surgery, Bowel Resection, Breast Surgery, Cholecystectomy, Coronary Bypass/CABG, Ear Surgery, Heart Catheterization, Tonsillectomy Additional Past Surgical History / Comment(s): triple bypass 2013, left salpingo-oophorectomy, R breast lumpectomy, 2 back surgeries with post op infection with I&D, ear surgery x 3/due to bleeding L eardrum. recent EGD Past Anesthesia/Blood Transfusion Reactions: No Reported Reaction Past Psychological History: Anxiety, Depression Smoking Status: Former smoker Past Alcohol Use History: None Reported Past Drug Use History: None Reported - Past Family History Mother Family Medical History: Cancer General Exam - General Exam Comments Initial Comments: GENERAL: Patient is well-developed and well-nourished. Patient is nontoxic and well- hydrated and is in mild distress. ENT: Neck is soft and supple. No significant lymphadenopathy is noted. Oropharynx is clear. Moist mucous membranes. Neck has full range of motion without eliciting any pain. EYES: The sclera were anicteric and conjunctiva were pink and moist. Extraocular movements were intact and pupils were equal round and reactive to light. Eyelids were unremarkable. PULMONARY: Patient has crackles in the left base and diminished breath sounds in the right CARDIOVASCULAR: There is a regular rate and rhythm without any murmurs gallops or rubs. ABDOMEN: Soft and nontender with normal bowel sounds. SKIN: Skin is clear with no lesions or rashes and otherwise unremarkable. NEUROLOGIC: Patient is alert and oriented x3. Cranial nerves II through XII are grossly intact. Motor and sensory are also intact. Normal speech, volume and content. Symmetrical smile. MUSCULOSKELETAL: Normal extremities with adequate strength and full range of motion. No lower extremity swelling or edema. No calf tenderness. LYMPHATICS: No significant lymphadenopathy is noted PSYCHIATRIC: Normal psychiatric evaluation. Limitations: altered mental status Course Vital Signs 03/14/23 03/14/23 03/14/23 15:35 16:17 17:21 Temperature 98.5 F Pulse Rate 64 65 Respiratory 25 H 20 Rate Blood Pressure 107/82 100/51 O2 Sat by Pulse 85 L 92 L Oximetry Fraction of 50 Inspired Oxygen (FIO2) 03/14/23 03/14/23 03/14/23 18:27 18:44 18:49 Temperature 98.2 F Pulse Rate 66 Respiratory 22 Rate Blood Pressure 102/73 O2 Sat by Pulse 95 Oximetry Fraction of 50 50 Inspired Oxygen (FIO2) 03/14/23 03/14/23 03/14/23 19:20 19:45 20:21 Temperature Pulse Rate 66 Respiratory 24 Rate Blood Pressure 95/62 102/84 90/77 O2 Sat by Pulse 90 L Oximetry Fraction of Inspired Oxygen (FIO2) 03/14/23 03/14/23 03/14/23 21:00 21:12 22:56 Temperature 98.1 F Pulse Rate 68 66 Respiratory 24 22 Rate Blood Pressure 111/46 103/92 O2 Sat by Pulse 95 Oximetry Fraction of 5 Inspired Oxygen (FIO2) 03/14/23 03/15/23 03/15/23 23:51 00:00 01:00 Temperature Pulse Rate 68 67 Respiratory 19 17 Rate Blood Pressure 94/57 96/68 O2 Sat by Pulse 95 Oximetry Fraction of 50 Inspired Oxygen (FIO2) 03/15/23 03/15/23 03/15/23 02:00 02:26 03:00 Temperature Pulse Rate 68 68 Respiratory 17 15 Rate Blood Pressure 105/41 103/40 O2 Sat by Pulse 94 L Oximetry Fraction of 50 Inspired Oxygen (FIO2) 03/15/23 03/15/23 03/15/23 04:00 05:00 06:00 Temperature Pulse Rate 70 70 70 Respiratory 15 23 19 Rate Blood Pressure 101/43 117/76 95/49 O2 Sat by Pulse 95 94 L Oximetry Fraction of Inspired Oxygen (FIO2) 03/15/23 03/15/23 03/15/23 07:00 08:00 08:12 Temperature 96.3 F L Pulse Rate 71 72 Respiratory 34 H 20 Rate Blood Pressure 97/67 92/38 O2 Sat by Pulse 90 L Oximetry Fraction of 50 Inspired Oxygen (FIO2) 03/15/23 03/15/23 03/15/23 10:00 10:48 11:23 Temperature Pulse Rate 73 69 Respiratory 34 H 34 H Rate Blood Pressure 90/63 90/29 O2 Sat by Pulse 90 L 90 L Oximetry Fraction of 50 Inspired Oxygen (FIO2) Medical Decision Making - Medical Decision Making EKG is interpreted by myself. It is of poor quality. Patient has a right bundle branch block. No discernible P waves are noted. The rate is 64 bpm QRS is 198 QT interval is 514 QTC is 524. Patient was diagnosed with a urinary tract infection at 6:20 PM Was pt. sent in by a medical professional or institution (FELICIANO Payton, [employer], urgent care, hospital, or longterm...) When possible be specific @ -Patient was sent in from outpatient endoscopy because of altered mental status Did you speak to anyone other than the patient for history (EMS, parent, family, police, friend...)? What history was obtained from this source @ -No Did you review nursing and triage notes (agree or disagree)? Why? @ -I reviewed and agree with nursing and triage notes Were old charts reviewed (outside hosp., previous admission, EMS record, old EKG, old radiological studies, urgent care reports/EKG's, longterm records)? Report findings @ -I reviewed prior charts from prior laboratory on this patient Differential Diagnosis (chest pain, altered mental status, abdominal pain women, abdominal pain men, vaginal bleeding, weakness, fever, dyspnea, syncope, headache, dizziness, GI bleed, back pain, seizure, CVA, palpatations, mental health, musculoskeletal)? @ -Differential Altered Mental Status: Hypoglycemia, DKA, hypercapnia, ETOH, overdose, CO poisoning, trauma, myxedema coma, HTN encephalopathy, infection, encephalitis, psychosis, intercranial hemorrhage, hepatic encephalopathy, meningitis, CVA, this is not meant to be an all-inclusive list EKG interpreted by me (3pts min.). @ -As above X-rays interpreted by me (1pt min.). @ -Chest x-ray showed acute pulmonary edema CT interpreted by me (1pt min.). @ -None done U/S interpreted by me (1pt. min.). @ -None done What testing was considered but not performed or refused? (CT, X-rays, U/S, labs)? Why? @ -None What meds were considered but not given or refused? Why? @ -None Did you discuss the management of the patient with other professionals (professionals i.e. FELICIANO Payotn, [employer] DEVELOPER, lab, RT, psych nurse, psychosocial rehabilitation counselor, remote sensing scientist, teacher, loan officer assistant, case packer and sealer)? Give summary @ -I spoke with sounds physician's name agreed to admit the patient Was smoking cessation discussed for >3mins.? @ -No Was critical care preformed (if so, how long)? @ -No Were there social determinants of health that impacted care today? How? (Homelessness, low income, unemployed, alcoholism, drug addiction, transportation, low edu. Level, literacy, decrease access to med. care, fpc, rehab)? @ -No Was there de-escalation of care discussed even if they declined (Discuss DNR or withdrawal of care, Hospice)? DNR status @ -No What co-morbidities impacted this encounter? (DM, HTN, Smoking, COPD, CAD, Cancer, CVA, ARF, Chemo, Hep., AIDS, mental health diagnosis, sleep apnea, morbid obesity)? @ -None Was patient admitted / discharged? Hospital course, mention meds given and route, prescriptions, significant lab abnormalities, going to OR and other pertinent info. @ -Patient has a urinary tract infection with a significant elevated white count. Patient's O2 sat was 86% on arrival. Patient also had an elevated creatinine 2.19 and a chest x-ray showed significant pulmonary edema . Patient was placed on BiPAP because she seemed to be getting a little more obtunded on the 50% Ventimask. I spoke with sounds physician's and the agreed to admit the patient Undiagnosed new problem with uncertain prognosis? @ -No Drug Therapy requiring intensive monitoring for toxicity (Heparin, Nitro, Insul in, Cardizem)? @ -No Were any procedures done? @ -No Diagnosis/symptom? @ -Acute pulmonary edema Acute, or Chronic, or Acute on Chronic? @ -Acute Uncomplicated (without systemic symptoms) or Complicated (systemic symptoms)? @ -Complicated Side effects of treatment? @ -No Exacerbation, Progression, or Severe Exacerbation? @ -No Poses a threat to life or bodily function? How? (Chest pain, [place], [place], pneumonia, PE, COPD, DKA, ARF, appy, cholecystitis, CVA, Diverticulitis, Homicidal, Suicidal, threat to staff... and all critical care pts) @ -Yes this could lead to hypoxia and end organ dysfunction Diagnosis/symptom? @ -Urinary tract infection Acute, or Chronic, or Acute on Chronic? @ -Acute Uncomplicated (without systemic symptoms) or Complicated (systemic symptoms)? @ -Complicated Side effects of treatment? @ -none Exacerbation, Progression, or Severe Exacerbation] @ -no Poses a threat to life or bodily function? @ -Yes this can lead to sepsis and end organ dysfunction. Diagnosis/symptom? @ -Acute pulmonary edema Acute, or Chronic, or Acute on Chronic? @ -Acute Uncomplicated (without systemic symptoms) or Complicated (systemic symptoms)? @ -Complicated Side effects of treatment? @ -none Exacerbation, Progression, or Severe Exacerbation] @ -no Poses a threat to life or bodily function? @ -no Diagnosis/symptom? @ -Hypoxia Acute, or Chronic, or Acute on Chronic? @ -Acute Uncomplicated (without systemic symptoms) or Complicated (systemic symptoms)? @ -Complicated Side effects of treatment? @ -none Exacerbation, Progression, or Severe Exacerbation] @ -no Poses a threat to life or bodily function? @ -Yes this can lead to end organ dysfunction - Lab Data Result diagrams: 03/14/23 16:42 03/14/23 16:42 Lab Results 03/14/23 03/14/23 03/14/23 Range/Units 16:08 16:42 16:42 WBC 18.5 H (3.8-10.6) k/uL RBC 3.36 L (3.80-5.40) m/uL Hgb 8.9 L (11.4-16.0) gm/dL Hct 29.7 L (34.0-46.0) % MCV 88.2 (80.0-100.0) fL MCH 26.3 (25.0-35.0) pg MCHC 29.8 L (31.0-37.0) g/dL RDW 15.3 (11.5-15.5) % Plt Count 260 (150-450) k/uL MPV 8.3 Neutrophils % 84 % Lymphocytes % 7 % Monocytes % 7 % Eosinophils % 1 % Basophils % 0 % Neutrophils # 15.4 H (1.3-7.7) k/uL Lymphocytes # 1.3 (1.0-4.8) k/uL Monocytes # 1.3 H (0-1.0) k/uL Eosinophils # 0.1 (0-0.7) k/uL Basophils # 0.0 (0-0.2) k/uL Hypochromasia Marked Poikilocytosis Slight PT 14.2 H (10.0-12.5) sec INR 1.4 H (<1.2) APTT 22.9 (22.0-30.0) sec Sample Site rbrac ABG pH 7.29 L (7.35-7.45) ABG pCO2 34 L (35-45) mmHg ABG pO2 59 L* (83-108) mmHg ABG HCO3 16 L (21-25) mmol/L ABG Total CO2 17 L (19-24) mmol/L ABG O2 Saturation 87.0 L (94-97) % ABG Base Excess -10.5 mmol/L Corey Test Yes VBG pH (7.31-7.41) VBG pCO2 (37-51) mmHg VBG HCO3 (24-28) mmol/L FiO2 36 % Sodium (137-145) mmol/L Potassium (3.5-5.1) mmol/L Chloride (98-107) mmol/L Carbon Dioxide (22-30) mmol/L Anion Gap mmol/L BUN (7-17) mg/dL Creatinine (0.52-1.04) mg/dL Est GFR (CKD-EPI)AfAm (>60 ml/min/1.73 sqM) Est GFR (CKD-EPI)NonAf (>60 ml/min/1.73 sqM) Glucose (74-99) mg/dL Plasma Lactic Acid West (0.7-2.0) mmol/L Calcium (8.4-10.2) mg/dL Magnesium (1.6-2.3) mg/dL Total Bilirubin (0.2-1.3) mg/dL AST (14-36) U/L ALT (4-34) U/L Alkaline Phosphatase (38-126) U/L Troponin I (0.000-0.034) ng/mL NT-Pro-B Natriuret Pep pg/mL Total Protein (6.3-8.2) g/dL Albumin (3.5-5.0) g/dL Urine Color Urine Appearance (Clear) Urine pH (5.0-8.0) Ur Specific [place] (1.001-1.035) Urine Protein (Negative) Urine Glucose (UA) (Negative) Urine Ketones (Negative) Urine Blood (Negative) Urine Nitrite (Negative) Urine Bilirubin (Negative) Urine Urobilinogen (<2.0) mg/dL Ur Leukocyte Esterase (Negative) Urine RBC (0-5) /hpf Urine WBC (0-5) /hpf Urine WBC Clumps (None) /hpf Ur Squamous Epith Cells (0-4) /hpf Urine Bacteria (None) /hpf Hyaline Casts (0-2) /lpf Urine Mucus (None) /hpf Urine Yeast (Budding) (None) /hpf 03/14/23 03/14/23 03/14/23 Range/Units 16:42 16:42 16:42 WBC (3.8-10.6) k/uL RBC (3.80-5.40) m/uL Hgb (11.4-16.0) gm/dL Hct (34.0-46.0) % MCV (80.0-100.0) fL MCH (25.0-35.0) pg MCHC (31.0-37.0) g/dL RDW (11.5-15.5) % Plt Count (150-450) k/uL MPV Neutrophils % % Lymphocytes % % Monocytes % % Eosinophils % % Basophils % % Neutrophils # (1.3-7.7) k/uL Lymphocytes # (1.0-4.8) k/uL Monocytes # (0-1.0) k/uL Eosinophils # (0-0.7) k/uL Basophils # (0-0.2) k/uL Hypochromasia Poikilocytosis PT (10.0-12.5) sec INR (<1.2) APTT (22.0-30.0) sec Sample Site ABG pH (7.35-7.45) ABG pCO2 (35-45) mmHg ABG pO2 (83-108) mmHg ABG HCO3 (21-25) mmol/L ABG Total CO2 (19-24) mmol/L ABG O2 Saturation (94-97) % ABG Base Excess mmol/L Corey Test VBG pH (7.31-7.41) VBG pCO2 (37-51) mmHg VBG HCO3 (24-28) mmol/L FiO2 % Sodium 137 (137-145) mmol/L Potassium 3.5 (3.5-5.1) mmol/L Chloride 111 H (98-107) mmol/L Carbon Dioxide 12 L (22-30) mmol/L Anion Gap 14 mmol/L BUN 46 H (7-17) mg/dL Creatinine 2.19 H (0.52-1.04) mg/dL Est GFR (CKD-EPI)AfAm 26 (>60 ml/min/1.73 sqM) Est GFR (CKD-EPI)NonAf 22 (>60 ml/min/1.73 sqM) Glucose 114 H (74-99) mg/dL Plasma Lactic Acid [place] 1.3 (0.7-2.0) mmol/L Calcium 9.1 (8.4-10.2) mg/dL Magnesium 2.0 (1.6-2.3) mg/dL Total Bilirubin 0.8 (0.2-1.3) mg/dL AST 70 H (14-36) U/L ALT 27 (4-34) U/L Alkaline Phosphatase 132 H (38-126) U/L Troponin I <0.012 (0.000-0.034) ng/mL NT-Pro-B Natriuret Pep 2260 pg/mL Total Protein 5.5 L (6.3-8.2) g/dL Albumin 2.3 L (3.5-5.0) g/dL Urine Color Urine Appearance (Clear) Urine pH (5.0-8.0) Ur Specific [place] (1.001-1.035) Urine Protein (Negative) Urine Glucose (UA) (Negative) Urine Ketones (Negative) Urine Blood (Negative) Urine Nitrite (Negative) Urine Bilirubin (Negative) Urine Urobilinogen (<2.0) mg/dL Ur Leukocyte Esterase (Negative) Urine RBC (0-5) /hpf Urine WBC (0-5) /hpf Urine WBC Clumps (None) /hpf Ur Squamous Epith Cells (0-4) /hpf Urine Bacteria (None) /hpf Hyaline Casts (0-2) /lpf Urine Mucus (None) /hpf Urine Yeast (Budding) (None) /hpf 03/14/23 03/14/23 Range/Units 16:42 17:06 WBC (3.8-10.6) k/uL RBC (3.80-5.40) m/uL Hgb (11.4-16.0) gm/dL Hct (34.0-46.0) % MCV (80.0-100.0) fL MCH (25.0-35.0) pg MCHC (31.0-37.0) g/dL RDW (11.5-15.5) % Plt Count (150-450) k/uL MPV Neutrophils % % Lymphocytes % % Monocytes % % Eosinophils % % Basophils % % Neutrophils # (1.3-7.7) k/uL Lymphocytes # (1.0-4.8) k/uL Monocytes # (0-1.0) k/uL Eosinophils # (0-0.7) k/uL Basophils # (0-0.2) k/uL Hypochromasia Poikilocytosis PT (10.0-12.5) sec INR (<1.2) APTT (22.0-30.0) sec Sample Site ABG pH (7.35-7.45) ABG pCO2 (35-45) mmHg ABG pO2 (83-108) mmHg ABG HCO3 (21-25) mmol/L ABG Total CO2 (19-24) mmol/L ABG O2 Saturation (94-97) % ABG Base Excess mmol/L Corey Test VBG pH 7.27 L (7.31-7.41) VBG pCO2 37 (37-51) mmHg VBG HCO3 17 L (24-28) mmol/L FiO2 % Sodium (137-145) mmol/L Potassium (3.5-5.1) mmol/L Chloride (98-107) mmol/L Carbon Dioxide (22-30) mmol/L Anion Gap mmol/L BUN (7-17) mg/dL Creatinine (0.52-1.04) mg/dL Est GFR (CKD-EPI)AfAm (>60 ml/min/1.73 sqM) Est GFR (CKD-EPI)NonAf (>60 ml/min/1.73 sqM) Glucose (74-99) mg/dL Plasma Lactic Acid [place] (0.7-2.0) mmol/L Calcium (8.4-10.2) mg/dL Magnesium (1.6-2.3) mg/dL Total Bilirubin (0.2-1.3) mg/dL AST (14-36) U/L ALT (4-34) U/L Alkaline Phosphatase (38-126) U/L Troponin I (0.000-0.034) ng/mL NT-Pro-B Natriuret Pep pg/mL Total Protein (6.3-8.2) g/dL Albumin (3.5-5.0) g/dL Urine Color Light Yellow Urine Appearance Turbid H (Clear) Urine pH 5.0 (5.0-8.0) Ur Specific [place] 1.001 (1.001-1.035) Urine Protein Negative (Negative) Urine Glucose (UA) Negative (Negative) Urine Ketones Negative (Negative) Urine Blood Negative (Negative) Urine Nitrite Negative (Negative) Urine Bilirubin Negative (Negative) Urine Urobilinogen 0.0 (<2.0) mg/dL Ur Leukocyte Esterase Moderate (Negative) Urine RBC 12 H (0-5) /hpf Urine WBC >182 H (0-5) /hpf Urine WBC Clumps Moderate H (None) /hpf Ur Squamous Epith Cells 3 (0-4) /hpf Urine Bacteria Many H (None) /hpf Hyaline Casts 127 H (0-2) /lpf Urine Mucus Rare H (None) /hpf Urine Yeast (Budding) Many H (None) /hpf Critical Care Time Critical Care Time: Yes Total Critical Care Time: 35 Disposition Clinical Impression: Urinary tract infection, Acute pulmonary edema, Altered mental status, Hypoxia Disposition: ADMITTED IP TO THIS HOSP
[2023-03-14 16:11] LABS: ABG Base Excess -10.5 mmol/L; ABG HCO3 16 mmol/L (21-25); ABG PCO2 34 mmHg (35-45); ABG PH 7.29 (7.35-7.45); ABG TCO2 17 mmol/L (19-24); Allen Test Performed? Yes
[2023-03-14 16:14] LABS: ABG PO2 59 mmHg (83-108)
[2023-03-14 17:09] LABS: Basophils % (A) 0 %; Eosinophils # (A) 0.1 k/uL (0-0.7); Eosinophils % (A) 1 %; HCT 29.7 % (34.0-46.0); HGB 8.9 gm/dL (11.4-16.0); Hypochromasia Marked; Lymphocytes # (A) 1.3 k/uL (1.0-4.8); Lymphocytes % (A) 7 %; MCH 26.3 pg (25.0-35.0); MCHC 29.8 g/dL (31.0-37.0); MCV 88.2 fL (80.0-100.0); Mean Platelet Volume 8.3; Monocytes # (A) 1.3 k/uL (0-1.0); Monocytes % (A) 7 %; Neutrophils # (A) 15.4 k/uL (1.3-7.7); Neutrophils % (A) 84 %; Platelet Count 260 k/uL (150-450); Poikilocytosis Slight; RBC 3.36 m/uL (3.80-5.40); RDW 15.3 % (11.5-15.5); WBC 18.5 k/uL (3.8-10.6)
[2023-03-14 17:10] LABS: VBG PH 7.27 (7.31-7.41)
[2023-03-14 17:15] LABS: INR 1.4 (<1.2); Partial Thromboplastin Time 22.9 sec (22.0-30.0); Prothrombin Time 14.2 sec (10.0-12.5)
--- NOTE | 2023-03-14 17:32 | XR ---
EXAMINATION TYPE: XR chest 2V DATE OF EXAM: 03/14/2023 5:09 PM CLINICAL INDICATION:Female, 67 years old with history of difficulty breathing; [facility] COMPARISON: Chest radiographs from 03/02/2023 TECHNIQUE: XR chest 2V Frontal and lateral views of the chest. FINDINGS: Lungs/Pleura: No evidence of focal consolidation or pneumothorax. Blunting of the costophrenic angles is present. Pulmonary vascularity: Pulmonary vascular congestion. Heart/mediastinum: Cardiomediastinal silhouette is enlarged and stable. Musculoskeletal: No acute osseous pathology. There are stimulator leads project over the spine. IMPRESSION: Cardiomegaly, pulmonary vascular congestion and bilateral pleural effusions. Correlate with BNP for c ongestive heart failure.
[2023-03-14 17:45] LABS: ALT 27 U/L (4-34); AST 70 U/L (14-36); African American GFR (CKD) 26 (>60 ml/min/1.73 sqM); Albumin 2.3 g/dL (3.5-5.0); Alkaline Phosphatase 132 U/L (38-126); Anion Gap 14 mmol/L; Blood Urea Nitrogen 46 mg/dL (7-17); Calcium 9.1 mg/dL (8.4-10.2); Carbon Dioxide 12 mmol/L (22-30); Chloride 111 mmol/L (98-107); Glucose 114 mg/dL (74-99); Non-African American GFR(CKD) 22 (>60 ml/min/1.73 sqM); Potassium 3.5 mmol/L (3.5-5.1); Sodium 137 mmol/L (137-145); Total Bilirubin 0.8 mg/dL (0.2-1.3); Total Protein 5.5 g/dL (6.3-8.2)
[2023-03-14 17:48] LABS: NT-Pro-B-Type Natriuretic Pept 2260 pg/mL
[2023-03-14 17:55] LABS: Bacteria,Urine Many /hpf; Hyaline Casts,Urine 127 /lpf (0-2); Mucus,Urine Rare /hpf; RBC,Urine 12 /hpf (0-5); Squamous Epithelial Cell,Urine 3 /hpf (0-4); WBC,Urine >182 /hpf (0-5)
[2023-03-14 18:07] LABS: Budding Yeast,Urine Many /hpf
[2023-03-14 18:18] LABS: Appearance,Urine Turbid (Clear); Color,Urine Light Yellow; Specific Gravity,Urine 1.001 (1.001-1.035)
[2023-03-14 18:19] LABS: Bilirubin,Urine Negative (Negative); Blood,Urine Negative (Negative); Glucose,Urine (UA) Negative (Negative); Ketones,Urine Negative (Negative); Protein,Urine Negative (Negative)
[2023-03-14 18:20] LABS: Leukocyte Esterase,Urine Moderate (Negative); Nitrite,Urine Negative (Negative)
[2023-03-14] MEDS ORDERED: cefTRIAXone IN SWFI 1,000 MG/10 ML SYRINGE IVP STA (18:27)
[2023-03-14] MEDS ORDERED: FUROSEMIDE 10 MG/ML 10 ML VIAL IV STA (18:27)
[2023-03-14] MEDS: FUROSEMIDE 10 MG/ML 4 ML VIAL IV SCH (19:06)
[2023-03-14 21:24] LABS: ABG Base Excess -10.2 mmol/L; ABG HCO3 16 mmol/L (21-25); ABG Oxygen Saturation 94.4 % (94-97); ABG PCO2 33 mmHg (35-45); ABG PO2 79 mmHg (83-108); ABG TCO2 17 mmol/L (19-24); Allen Test Performed? Yes
--- NOTE | 2023-03-15 03:32 | CT ---
EXAM: CT Head Without Intravenous Contrast CLINICAL HISTORY: ITS.REASON CT Reason: altered mental status TECHNIQUE: Axial computed tomography images of the head/brain without intravenous contrast. CTDI is 49.2 mGy and DLP is 1212.4 mGy-cm. This CT exam was performed using one or more of the following dose reduction techniques: automated exposure control, adjustment of the mA and/or kV according to patient size, and/or use of iterative reconstruction technique. COMPARISON: No relevant prior studies available. FINDINGS: Brain: No hemorrhage or mass effect. Prior left occipital infarct. Ventricles: No hydrocephalus. Bones/joints: Unremarkable. Soft tissues: Unremarkable. Sinuses: No air fluid level. Mastoid air cells: Clear. IMPRESSION: No acute hemorrhage, hydrocephalus, or mass effect.
[2023-03-15] MEDS: FUROSEMIDE 10 MG/ML 4 ML VIAL IV SCH ×3 (04:27→17:52)
[2023-03-15] MEDS ORDERED: IPRATROPIUM-ALBUTEROL 3 ML NEB INHALATION PRN (04:57)
[2023-03-15] MEDS ORDERED: HYDROcodone/APAP 5-325MG 1 EACH TAB PO PRN (04:57)
[2023-03-15] MEDS ORDERED: ACETAMINOPHEN TAB 325 MG TAB PO PRN (04:57)
[2023-03-15] MEDS ORDERED: ALPRAZolam 0.25 MG TAB PO PRN (05:00)
[2023-03-15] MEDS ORDERED: NALOXONE 0.4 MG/ML 1 ML VIAL IV PRN (05:00)
[2023-03-15] MEDS ORDERED: ONDANSETRON 4 MG/2 ML VIAL IVP PRN (05:00)
--- NOTE | 2023-03-15 05:15 | P.HPIM ---
History of Present Illness H&P Date: 03/14/23 Chief Complaint: AMS 67-year-old female with complex past medical history including A. fib, COPD on home oxygen, diastolic CHF, patient is not on blood thinners anymore due to GI bleeding earlier this month Patient was discharged from our facility on March 03 where she was treated for acute blood loss anemia secondary to upper GI bleeding from antral gastritis and esophagitis requiring 1 unit of blood upon discharge Eliquis was discontinued and she was sent back to the care home. Upon my evaluation patient is only oriented to self confused unable to provide any meaningful history currently she is using BiPAP. History obtained by reviewing medical records Seems like patient was at our facility here [facility] to get a scheduled colonoscopy when the receiving nurse found her confused and hypoxic and decided to send her to the ER for evaluation No other history is available at this time In the ED chest x-ray showed bilateral pleural effusion with pulmonary vascular congestion EKG no acute changes compared to before, there is persistent diffuse ST depression which is present in prior EKG Her white count was noted to be elevated at 18.5 lactic acid was unremarkable 1.3 She was found to have metabolic acidosis thought to be secondary to acute kidney injury Troponins were negative Patient was given Lasix and placed on BiPAP She was also started on IV antibiotics Review of systems Unable to obtain due to patient mental status on exam Constitutional: Confused on BiPAP Eyes: Anicteric sclerae, moist conjunctiva, Pupils equal round reactive to light ENMT: NC/AT Currently on BiPAP Neck: Supple, no masses, or JVD No carotid bruits No thyromegaly Lungs: Diminished breath sounds with inspiratory rales at lung basis Clear to percussion Normal respiratory effort, no accessory muscle use Cardiovascular: Heart regular in rate and rhythm, No murmurs, gallops, or rubs +1 bilateral peripheral leg edema Abdominal: Soft Patient grimaces to deep palpation of the abdomen especially over the suprapubic region, no guarding, rebound or rigidity Abdomen moving with respiration Normoactive bowel sounds No hepatomegaly, No splenomegaly No palpable mass No abdominal wall hernia noted Extremities: No digital cyanosis No clubbing Pedal pulses intact and symmetrical Radial pulses intact and symmetrical No calf tenderness Psychiatric: Confused opens eyes to verbal stimulation Neuro does not follow commands moves bilateral upper extremities when enco uraged and directed Lymphatics: no palpable cervical or supraclavicular lymph nodes Past Medical History Past Medical History: Atrial Fibrillation, Coronary Artery Disease (CAD), Cancer, Heart Failure, COPD, Diabetes Mellitus, GERD/Reflux, GI Bleed, Hyp erlipidemia, Hypertension, Skin Disorder Additional Past Medical History / Comment(s): Pt recently admitted to [facility] w/tarry stools, GI bleeding, anemia, had transfusion Tuesday02-28-23, EGD showed mild gastritis, refused colonoscopy when here recently, resolving UTI, d/c to [facility] 03-03-23, per her nurse Ana she signs own consents, is alert & oriented, current skin breakdown/excoriation on buttocks-had been having loose stools, chronic chf, moderate pulmonary HTN, acute kidney injury, paroxysmal afib, acute blood loss anemia. Other hx: post polio syndrome rt side, neuropathy, hx. spontaneous pneumothorax after cabg, home oxygen at 2L/NC ATC, now NIDDM, chronic transaminitis, bowel resection for sepsis/infection, R breast cancer with lumpectomy only. this procedure was rescheduled due to no bowel prep and refusal to leave [place] [facility] History of Any Multi-Drug Resistant Organisms: ESBL Date of last positivie culture/infection: 06/29/21 MDRO Source:: ESBL BACK Past Surgical History: Back Surgery, Bowel Resection, Breast Surgery, Cholecystectomy, Coronary Bypass/CABG, Ear Surgery, Heart Catheterization, Tonsillectomy Additional Past Surgical History / Comment(s): triple bypass 2013, left salpingo-oophorectomy, R breast lumpectomy, 2 back surgeries with post op infection with I&D, ear surgery x 3/due to bleeding L eardrum. recent EGD Past Anesthesia/Blood Transfusion Reactions: No Reported Reaction Past Psychological History: Anxiety, Depression Smoking Status: Former smoker Past Alcohol Use History: None Reported Past Drug Use History: None Reported - Past Family History Mother Family Medical History: Cancer Medications and Allergies Home Medications Medication Instructions Recorded Confirmed Type Atorvastatin [Lipitor] 40 mg PO HS@2100 03/23/16 03/14/23 History DULoxetine HCL [Cymbalta] 60 mg PO DAILY@0800 03/23/16 03/14/23 History Montelukast [Singulair] 10 mg PO DAILY@0800 05/18/21 03/14/23 History Budesonide-Formot 160-4.5 Mcg 2 puff INHALATION RT-BID@0800,1700 04/06/22 History [Symbicort 160-4.5 Mcg Inhaler] Biotin [Biotin Disolve] 10,000 mcg PO DIRECTED 09/03/22 03/14/23 History Letrozole [Femara] 2.5 mg PO DAILY@0800 09/03/22 03/14/23 History Cholecalciferol [Vitamin D3 (125 125 mcg PO DIRECTED 09/06/22 03/14/23 History Mcg = 5000 Iu)] Cyanocobalamin (Vitamin B-12) 2,000 mcg PO DIRECTED 09/06/22 03/14/23 History [Vitamin B-12] Albuterol Inhaler [Ventolin Hfa 2 puff INHALATION RT-QID PRN 11/10/22 03/14/23 History Inhaler] Amiodarone [Cordarone] 200 mg PO BID@0800,1700 11/10/22 03/14/23 History Lactobacillus Acidophilus 1 cap PO DIRECTED 11/29/22 03/14/23 History [Acidophilus Probiotic] Ubidecarenone [Coenzyme Q10] 200 mg PO DIRECTED 11/29/22 03/14/23 History Acetaminophen Tab [Tylenol] 650 mg PO Q6HR PRN tab 12/07/22 03/14/23 Rx Simethicone Chew [Mylicon Chew] 80 mg PO QID PRN tab 12/07/22 03/14/23 Rx Ascorbic Acid [Vitamin C] 250 mg PO DIRECTED 01/14/23 03/14/23 History Ferrous Sulfate [Iron (65 MG 325 mg PO DIRECTED 02/28/23 03/14/23 History Elemental)] Ipratropium-Albuterol Nebulize 3 ml INHALATION RT-Q6H PRN 02/28/23 03/14/23 History [Duoneb 0.5 mg-3 mg/3 ml Soln] Loperamide HCl [Imodium A-D] 2 - 4 mg PO QID PRN MDD 4 TABLETS 02/28/23 03/14/23 History Loratadine [Claritin] 10 mg PO DAILY PRN 02/28/23 03/14/23 History Magic Butt Paste 1 applic TOPICAL TID@0800,1400,2100 02/28/23 03/14/23 History Magnesium Hydroxide [Milk of 7,200 mg PO DAILY PRN 02/28/23 03/14/23 History Magnesia Concentrate] Metoprolol Tartrate [Lopressor] 25 mg PO BID@0800,1700 02/28/23 03/14/23 History Na Phos,M-B/Na Phos,Di-Ba [Fleet 133 ml RECTAL DAILY PRN 02/28/23 03/14/23 History Adult] Ondansetron [Zofran] 4 mg PO Q8HR PRN 02/28/23 03/14/23 History Pantoprazole [Protonix] 40 mg PO BID@0800,1700 02/28/23 03/14/23 History Potassium Chloride [Klor-Con M20] 20 meq PO DIRECTED 02/28/23 03/14/23 History bisacodyL [Dulcolax] 10 mg RECTAL DAILY PRN 02/28/23 03/14/23 History methIMAzole [Tapazole] 5 mg PO DAILY@0800 02/28/23 03/14/23 History Gabapentin 600 mg PO TID@0600,1400,2200 #9 tab 03/03/23 03/14/23 Rx Furosemide [Lasix] 40 mg PO DAILY@0800 03/14/23 03/14/23 History HYDROcodone/APAP 5-325MG [Butler 1 tab PO Q8HR PRN 03/14/23 03/14/23 History 5-325] Linezolid [Zyvox] 600 mg PO BID@0800,1700 03/14/23 03/14/23 History metroNIDAZOLE [Flagyl] 250 mg PO TID@0600,1400,2200 03/14/23 03/14/23 History Allergies Allergy/AdvReac Type Severity Reaction Status Date / Time mayonnaise Allergy Unknown Verified 03/14/23 17:06 morphine Allergy rash,itchin Verified 03/14/23 17:06 g Sulfa (Sulfonamide Allergy Rash/Hives Verified 03/14/23 17:06 Antibiotics) amoxicillin [From Augmentin] AdvReac Diarrhea Verified 03/14/23 17:06 clavulanic acid AdvReac Diarrhea Verified 03/14/23 17:06 [From Augmentin] surgical susy AdvReac infection Uncoded 03/08/23 12:38 Physical Exam Vitals: Vital Signs Temp Pulse Resp BP Pulse Ox FiO2 03/14/23 21:12 5 03/14/23 20:21 66 24 90/77 90 L 03/14/23 19:45 102/84 03/14/23 19:20 95/62 03/14/23 18:49 50 03/14/23 18:44 50 03/14/23 18:27 98.2 F 66 22 102/73 95 03/14/23 17:21 65 20 100/51 92 L 03/14/23 16:17 50 03/14/23 15:35 98.5 F 64 25 H 107/82 85 L Intake and Output 03/14/23 03/14/23 03/14/23 06:59 14:59 22:59 Other: Weight 74.843 kg Results CBC & Chem 7: 03/14/23 16:42 03/14/23 16:42 Labs: Abnormal Lab Results - Last 24 Hours (Table) 03/14/23 03/14/23 03/14/23 Range/Units 16:08 16:42 16:42 WBC 18.5 H (3.8-10.6) k/uL RBC 3.36 L (3.80-5.40) m/uL Hgb 8.9 L (11.4-16.0) gm/dL Hct 29.7 L (34.0-46.0) % MCHC 29.8 L (31.0-37.0) g/dL Neutrophils # 15.4 H (1.3-7.7) k/uL Monocytes # 1.3 H (0-1.0) k/uL PT 14.2 H (10.0-12.5) sec INR 1.4 H (<1.2) ABG pH 7.29 L (7.35-7.45) ABG pCO2 34 L (35-45) mmHg ABG pO2 59 L* (83-108) mmHg ABG HCO3 16 L (21-25) mmol/L ABG Total CO2 17 L (19-24) mmol/L ABG O2 Saturation 87.0 L (94-97) % VBG pH (7.31-7.41) VBG HCO3 (24-28) mmol/L Chloride (98-107) mmol/L Carbon Dioxide (22-30) mmol/L BUN (7-17) mg/dL Creatinine (0.52-1.04) mg/dL Glucose (74-99) mg/dL AST (14-36) U/L Alkaline Phosphatase (38-126) U/L Total Protein (6.3-8.2) g/dL Albumin (3.5-5.0) g/dL Urine Appearance (Clear) Urine RBC (0-5) /hpf Urine WBC (0-5) /hpf Urine WBC Clumps (None) /hpf Urine Bacteria (None) /hpf Hyaline Casts (0-2) /lpf Urine Mucus (None) /hpf Urine Yeast (Budding) (None) /hpf 03/14/23 03/14/23 03/14/23 Range/Units 16:42 16:42 17:06 WBC (3.8-10.6) k/uL RBC (3.80-5.40) m/uL Hgb (11.4-16.0) gm/dL Hct (34.0-46.0) % MCHC (31.0-37.0) g/dL Neutrophils # (1.3-7.7) k/uL Monocytes # (0-1.0) k/uL PT (10.0-12.5) sec INR (<1.2) ABG pH (7.35-7.45) ABG pCO2 (35-45) mmHg ABG pO2 (83-108) mmHg ABG HCO3 (21-25) mmol/L ABG Total CO2 (19-24) mmol/L ABG O2 Saturation (94-97) % VBG pH 7.27 L (7.31-7.41) VBG HCO3 17 L (24-28) mmol/L Chloride 111 H (98-107) mmol/L Carbon Dioxide 12 L (22-30) mmol/L BUN 46 H (7-17) mg/dL Creatinine 2.19 H (0.52-1.04) mg/dL Glucose 114 H (74-99) mg/dL AST 70 H (14-36) U/L Alkaline Phosphatase 132 H (38-126) U/L Total Protein 5.5 L (6.3-8.2) g/dL Albumin 2.3 L (3.5-5.0) g/dL Urine Appearance Turbid H (Clear) Urine RBC 12 H (0-5) /hpf Urine WBC >182 H (0-5) /hpf Urine WBC Clumps Moderate H (None) /hpf Urine Bacteria Many H (None) /hpf Hyaline Casts 127 H (0-2) /lpf Urine Mucus Rare H (None) /hpf Urine Yeast (Budding) Many H (None) /hpf Assessment and Plan Assessment: 67-year-old female with complex past medical history was sent in from care home for scheduled colonoscopy or receiving nurse found her confused and hypoxic for which she sent her to the ED for evaluation I discussed the case with the ED doctor and accepted the admission for acute on chronic hypoxic respiratory failure with pulmonary vascular congestion possible underlying pneumonia with anticipated length of stay more than 2 midnights Acute metabolic encephalopathy Acute on chronic hypoxic respiratory failure Metabolic acidosis secondary to underlying acute kidney injury Suspected pneumonia Exacerbation of Diastolic CHF Chest x-ray showed bilateral pleural effusion with pulmonary vascular congestion EKG showed ST depressions that's unchanged compared to prior EKGs CT of the brain without contrast showed no acute intracranial pathology Blood work showed White count 18.5 no fever, lactic acid 1.3 unremarkable Chronic anemia hemoglobin 8.9 with recent episode of upper GI bleeding currently stable no reported bleeding. Patient status post 1 unit blood transfusion during prior hospital course about 10 days ago Acute kidney injury BUN 46 creatinine 2.19 ProBNP elevated 2260 Troponins negative Follow-up cultures Patient started on Rocephin 2 g IV piggyback daily Add azithromycin 500 mg IV piggyback daily Continue with Lasix 40 mg twice a day IV push Daily weights Continue with BiPAP Cardiology consult Fall precautions Neurochecks every 4 hours Chronic conditions Hypothyroidism continue with methimazole COPD continue with supplemental oxygen, home inhalers, DuoNeb's when necessary Atrial fibrillation continue with metoprolol, Eliquis has been discontinued during her last hospital course due to GI bleeding History of polio with right-sided lower extremity weakness Full code DVT prophylaxis heparin subcu 3 times a day
[2023-03-15] MEDS: AZITHROMYCIN 500 MG in SODIUM CHLORIDE 0.9% 250 ML IVPB SCH (06:28)
[2023-03-15] MEDS ORDERED: PANTOPRAZOLE 40 MG TABLET PO SCH (07:30)
[2023-03-15] MEDS: SYMBICORT 160-4.5 MCG INHALER INHALATION SCH ×2 (08:09→20:14)
[2023-03-15] MEDS ORDERED: AMIODARONE 200 MG TAB PO SCH (09:00)
--- NOTE | 2023-03-15 09:58 | P.CRDCN ---
History of Present Illness Consult date: 03/15/23 History of present illness: HISTORY OF PRESENTING ILLNESS 67-year-old female with past medical history of COPD on home oxygen, CAD status post bypass surgery, atrial fibrillation, type 2 diabetes, hypertension, dyslipidemia, CKD. Patient was established with Dr. Barajas during hospitalization in early November. Since then patient has had several hospitalizations. She was seen by cardiology and inpatient consult in 11/2022 for acute hypoxic res piratory failure, due to CHF and diastolic heart failure exacerbation and possible pneumonia. She was treated with IV antibiotics. Last she was discharged from Hospital on March 03 When She Was Admitted for Acute Blood Loss Anemia Secondary to upper GI bleed in presence of systemic anti-cognition for atrial fibrillation. At that time her anti-cognition was continued and she received 1 unit of blood transfusion. At the time of discharge [facility] was [facility]. This time she presented to the hospital because of altered mental status and worsening shortness of breath. On admission she was acidotic, hypoxic, hypercapnic, with evidence of VALENTINA with creatinine of 2. Baseline is around 1.2 Chest x-ray showed bilateral pleural effusion with pulmonary vascular congestion. Urine is positive for blood and significantly elevated WBC count. Patient's ECG shows atrial fibrillation with right bundle branch block with a Wide QRS morphology. Last echocardiogram Jan 2023 shows preserved EF with mild MR with dilated RA and LA and RV with concerns of pulmonary hypertension. REVIEW OF SYSTEMS Could not be obtained as patient is obtunded and is on BiPAP support PHYSICAL EXAMINATION Vital signs reviewed. Head: Normocephalic. Eyes: Sclerae nonicteric. Neck: elevated jugular venous distention. Lungs: Decreased air entry in bilateral lung zimmerman. Crackles audible. Heart: Irregular rhythm, S1-S2, no S3, no murmur or rub. Abdomen: Soft nontender, positive bowel sounds no organomegaly. Extremities: 2+ edema in b/l LE Neuro: Obtunded, responding to pain. Not following verbal commands. ASSESSMENT Acute hypoxic and hypercapnic respiratory failure Metabolic encephalopathy, multifactorial Bilateral moderate pleural effusion with concerns pulmonary congestion suggestive of diastolic CHF exacerbation, acute on chronic Can't rule out infectious etiology like status secondary pneumonia and UTI Atrial fibrillation, rate controlled Right bundle branch block Moderate pulmonary hypertension with dilated RV and RA VALENTINA on CKD. Creatinine 2.19, baseline around 1.2 Anemia with recent GI bleed. Not on anticoagulation Patient's ECG shows atrial fibrillation with right bundle branch block with a Wi de QRS morphology. Last echocardiogram Jan 2023 shows preserved EF with mild MR with dilated RA and LA and RV with concerns of pulmonary hypertension. PLAN Agree with IV Lasix 40 mg twice a day Would recommend nephrology consult if kidney function deteriorates with diuret ics Continue other home medications Hold anticoagulation due to recent GI bleeding and currently being anemic IV antibiotics and management of other comorbidities as per primary team Past Medical History Past Medical History: Atrial Fibrillation, Coronary Artery Disease (CAD), Cancer, Heart Failure, COPD, Diabetes Mellitus, GERD/Reflux, GI Bleed, Hyperlipi demia, Hypertension, Skin Disorder Additional Past Medical History / Comment(s): Pt recently admitted to [facility] w/tarry stools, GI bleeding, anemia, had transfusion Tuesday02-28-23, EGD showed mild gastritis, refused colonoscopy when here recently, resolving UTI, d/c to [facility] 03-03-23, per her nurse Ana she signs own consents, is alert & oriented, current skin breakdown/excoriation on buttocks-had been having loose stools, chronic chf, moderate pulmonary HTN, acute kidney injury, paroxysmal afib, acute blood loss anemia. Other hx: post polio syndrome rt side, ne uropathy, hx. spontaneous pneumothorax after cabg, home oxygen at 2L/NC ATC, now NIDDM, chronic transaminitis, bowel resection for sepsis/infection, R breast cancer with lumpectomy only. this procedure was rescheduled due to no bowel prep and refusal to leave [facility] History of Any Multi-Drug Resistant Organisms: ESBL Date of last positivie culture/infection: 06/29/21 MDRO Source:: ESBL BACK Past Surgical History: Back Surgery, Bowel Resection, Breast Surgery, Cholecystectomy, Coronary Bypass/CABG, Ear Surgery, Heart Catheterization, Tonsillectomy Additional Past Surgical History / Comment(s): triple bypass 2013, left salpingo-oophorectomy, R breast lumpectomy, 2 back surgeries with post op infection with I&D, ear surgery x 3/due to bleeding L eardrum. recent EGD Past Anesthesia/Blood Transfusion Reactions: No Reported Reaction Past Psychological History: Anxiety, Depression Smoking Status: Former smoker Past Alcohol Use History: None Reported Past Drug Use History: None Reported - Past Family History Mother Family Medical History: Cancer Medications and Allergies Home Medications Medication Instructions Recorded Confirmed Type Atorvastatin [Lipitor] 40 mg PO HS@2100 03/23/16 03/14/23 History DULoxetine HCL [Cymbalta] 60 mg PO DAILY@0800 03/23/16 03/14/23 History Montelukast [Singulair] 10 mg PO DAILY@0800 05/18/21 03/14/23 History Budesonide-Formot 160-4.5 Mcg 2 puff INHALATION RT-BID@0800,1700 04/06/22 03/14/23 History [Symbicort 160-4.5 Mcg Inhaler] Biotin [Biotin Disolve] 10,000 mcg PO DIRECTED 09/03/22 03/14/23 History Letrozole [Femara] 2.5 mg PO DAILY@0800 09/03/22 03/14/23 History Cholecalciferol [Vitamin D3 (125 125 mcg PO DIRECTED 09/06/22 03/14/23 History Mcg = 5000 Iu)] Cyanocobalamin (Vitamin B-12) 2,000 mcg PO DIRECTED 09/06/22 03/14/23 History [Vitamin B-12] Albuterol Inhaler [Ventolin Hfa 2 puff INHALATION RT-QID PRN 11/10/22 03/14/23 History Inhaler] Amiodarone [Cordarone] 200 mg PO BID@0800,1700 11/10/22 03/14/23 History Lactobacillus Acidophilus 1 cap PO DIRECTED 11/29/22 03/14/23 History [Acidophilus Probiotic] Ubidecarenone [Coenzyme Q10] 200 mg PO DIRECTED 11/29/22 03/14/23 History Acetaminophen Tab [Tylenol] 650 mg PO Q6HR PRN tab 12/07/22 03/14/23 Rx Simethicone Chew [Mylicon Chew] 80 mg PO QID PRN tab 12/07/22 03/14/23 Rx Ascorbic Acid [Vitamin C] 250 mg PO DIRECTED 01/14/23 03/14/23 History Ferrous Sulfate [Iron (65 MG 325 mg PO DIRECTED 02/28/23 03/14/23 History Elemental)] Ipratropium-Albuterol Nebulize 3 ml INHALATION RT-Q6H PRN 02/28/23 03/14/23 History [Duoneb 0.5 mg-3 mg/3 ml Soln] Loperamide HCl [Imodium A-D] 2 - 4 mg PO QID PRN MDD 4 TABLETS 02/28/23 03/14/23 History Loratadine [Claritin] 10 mg PO DAILY PRN 02/28/23 03/14/23 History Magic Butt Paste 1 applic TOPICAL TID@0800,1400,2100 02/28/23 03/14/23 History Magnesium Hydroxide [Milk of 7,200 mg PO DAILY PRN 02/28/23 03/14/23 History Magnesia Concentrate] Metoprolol Tartrate [Lopressor] 25 mg PO BID@0800,1700 02/28/23 03/14/23 History Na Phos,M-B/Na Phos,Di-Ba [Fleet 133 ml RECTAL DAILY PRN 02/28/23 03/14/23 History Adult] Ondansetron [Zofran] 4 mg PO Q8HR PRN 02/28/23 03/14/23 History Pantoprazole [Protonix] 40 mg PO BID@0800,1700 02/28/23 03/14/23 History Potassium Chloride [Klor-Con M20] 20 meq PO DIRECTED 02/28/23 03/14/23 History bisacodyL [Dulcolax] 10 mg RECTAL DAILY PRN 02/28/23 03/14/23 History methIMAzole [Tapazole] 5 mg PO DAILY@0800 02/28/23 03/14/23 History Gabapentin 600 mg PO TID@0600,1400,2200 #9 tab 03/03/23 03/14/23 Rx Furosemide [Lasix] 40 mg PO DAILY@0800 03/14/23 03/14/23 History HYDROcodone/APAP 5-325MG [[place] 1 tab PO Q8HR PRN 03/14/23 03/14/23 History 5-325] Linezolid [Zyvox] 600 mg PO BID@0800,1700 03/14/23 03/14/23 History metroNIDAZOLE [Flagyl] 250 mg PO TID@0600,1400,2200 03/14/23 03/14/23 History Allergies Allergy/AdvReac Type Severity Reaction Status Date / Time mayonnaise Allergy Unknown Verified 03/14/23 17:06 morphine Allergy rash,itchin Verified 03/14/23 17:06 g Sulfa (Sulfonamide Allergy Rash/Hives Verified 03/14/23 17:06 Antibiotics) amoxicillin [From Augmentin] AdvReac Diarrhea Verified 03/14/23 17:06 clavulanic acid AdvReac Diarrhea Verified 03/14/23 17:06 [From Augmentin] surgical susy AdvReac infection Uncoded 03/08/23 12:38 Physical Exam Vitals: Vital Signs Temp Pulse Resp BP Pulse Ox FiO2 03/15/23 08:12 90 L 50 03/15/23 08:00 96.3 F L 72 20 92/38 03/15/23 07:00 71 34 H 97/67 03/15/23 06:00 70 19 95/49 94 L 03/15/23 05:00 70 23 117/76 03/15/23 04:00 70 15 101/43 95 03/15/23 03:00 68 15 103/40 03/15/23 02:26 50 03/15/23 02:00 68 17 105/41 94 L 03/15/23 01:00 67 17 96/68 95 03/15/23 00:00 68 19 94/57 03/14/23 23:51 50 03/14/23 22:56 66 22 103/92 03/14/23 21:12 5 03/14/23 21:00 98.1 F 68 24 111/46 95 03/14/23 20:21 66 24 90/77 90 L 03/14/23 19:45 102/84 03/14/23 19:20 95/62 03/14/23 18:49 50 03/14/23 18:44 50 03/14/23 18:27 98.2 F 66 22 102/73 95 03/14/23 17:21 65 20 100/51 92 L 03/14/23 16:17 50 03/14/23 15:35 98.5 F 64 25 H 107/82 85 L Intake and Output 03/14/23 03/15/23 03/15/23 22:59 06:59 14:59 Other: Weight 74.843 kg Results 03/14/23 16:42 03/14/23 16:42 Cardiac Enzymes 03/14/23 03/14/23 Range/Units 16:42 16:42 AST 70 H (14-36) U/L Troponin I <0.012 (0.000-0.034) ng/mL Coagulation 03/14/23 Range/Units 16:42 PT 14.2 H (10.0-12.5) sec APTT 22.9 (22.0-30.0) sec CBC 03/14/23 Range/Units 16:42 WBC 18.5 H (3.8-10.6) k/uL RBC 3.36 L (3.80-5.40) m/uL Hgb 8.9 L (11.4-16.0) gm/dL Hct 29.7 L (34.0-46.0) % Plt Count 260 (150-450) k/uL Comprehensive Metabolic Panel 03/14/23 Range/Units 16:42 Sodium 137 (137-145) mmol/L Potassium 3.5 (3.5-5.1) mmol/L Chloride 111 H (98-107) mmol/L Carbon Dioxide 12 L (22-30) mmol/L BUN 46 H (7-17) mg/dL Creatinine 2.19 H (0.52-1.04) mg/dL Glucose 114 H (74-99) mg/dL Calcium 9.1 (8.4-10.2) mg/dL AST 70 H (14-36) U/L ALT 27 (4-34) U/L Alkaline Phosphatase 132 H (38-126) U/L Total Protein 5.5 L (6.3-8.2) g/dL Albumin 2.3 L (3.5-5.0) g/dL Current Medications Generic Name Dose Route Start Last Admin Trade Name Freq PRN Reason Stop Dose Admin Acetaminophen 650 mg 03/15/23 04:57 Acetaminophen Tab 325 Mg Tab PO Q6HR PRN Fever and/ or Pain Hydrocodone Bitart/Acetaminophen 1 each 03/15/23 04:57 Hydrocodone/Apap 5-325mg 1 Each Tab PO Q8HR PRN Pain Albuterol/Ipratropium 3 ml 03/15/23 04:57 Ipratropium-Albuterol 3 Ml Neb INHALATION RT-Q6H PRN Shortness Of Breath Alprazolam 0.25 mg 03/15/23 05:00 Alprazolam 0.25 Mg Tab PO Q6HR PRN Anxiety Amiodarone HCl 200 mg 03/15/23 09:00 Amiodarone 200 Mg Tab PO BID [facility] Atorvastatin Calcium 40 mg 03/15/23 21:00 Atorvastatin 40 Mg Tab PO HS@2100 [facility] Budesonide/Formoterol Fumarate 2 puff 03/15/23 08:00 03/15/23 08:09 Symbicort 160-4.5 Mcg Inhaler INHALATION 2 puff RT-BID [facility] Administration Furosemide 40 mg 03/14/23 19:00 03/15/23 04:27 Furosemide 10 Mg/Ml 4 Ml Vial IV Not Given Q8H [facility] Heparin Sodium (Porcine) 5,000 unit 03/15/23 08:00 Heparin Sodium,Porcine 5,000 Unit/Ml 1 Ml Vial SQ Q8HR [facility] Ceftriaxone Sodium 2 gm/ 50 mls @ 100 mls/hr 03/15/23 09:00 Sodium Chloride IVPB Q24HR [facility] Protocol Azithromycin 500 mg/ Sodium 250 mls @ 250 mls/hr 03/15/23 06:00 03/15/23 06:28 Chloride IVPB 03/17/23 06:59 250 mls/hr DAILY@0600 [facility] Administration Protocol Methimazole 5 mg 03/15/23 09:00 Methimazole 5 Mg Tab PO DAILY [facility] Metoprolol Tartrate 25 mg 03/15/23 09:00 Metoprolol Tartrate 25 Mg Tab PO BID [facility] Montelukast Sodium 10 mg 03/15/23 09:00 Montelukast 10 Mg Tab PO DAILY [facility] Naloxone HCl 0.2 mg 03/15/23 05:00 Naloxone 0.4 Mg/Ml 1 Ml Vial IV Q2M PRN Opioid Reversal Ondansetron HCl 4 mg 03/15/23 05:00 Ondansetron 4 Mg/2 Ml Vial IVP Q8HR PRN Nausea And Vomiting Pantoprazole Sodium 40 mg 03/15/23 07:30 Pantoprazole 40 Mg Tablet PO AC-BID [facility] Intake and Output 03/14/23 03/15/23 03/15/23 22:59 06:59 14:59 Other: Weight 74.843 kg 03/14/23 16:42 03/14/23 16:42
[2023-03-15] MEDS: MONTELUKAST 10 MG TAB PO SCH (10:16)
[2023-03-15] MEDS: METOPROLOL TARTRATE 25 MG TAB PO SCH ×2 (10:17→20:14)
[2023-03-15] MEDS: HEPARIN SODIUM,PORCINE 5,000 UNIT/ML 1 ML VIAL SQ SCH ×3 (10:19→22:58)
[2023-03-15] MEDS: methIMAzole 5 MG TAB PO SCH (10:21)
--- NOTE | 2023-03-15 15:47 | P.CNPUL ---
History of Present Illness Consult date: 03/15/23 Requesting physician: Addi Peace Reason for consult: dyspnea, hypoxemia, abnormal CXR/CT Chief complaint: Altered mental status, hypoxemia History of present illness: This is a 67-year-old female patient with a known history of atrial fibrillation, congestive heart failure, diabetes mellitus, hyperlipidemia, hypertension, GI bleed, COPD who was recently here for a GI bleed and received b lood transfusion and EGD showed mild gastritis at that time she had refused colonoscopy. During that hospitalization she was also in congestive heart failure with bilateral pleural effusions and had undergone a right sided thoracentesis on 02/28/2023 with 1.3 L of fluid removed. Negative for malig simi. She was discharged to [facility] for rehabilitation. She was brought back in from [facility] yesterday for the colonoscopy as scheduled however in the preop area she was found to be altered and had significant hypoxemia was transferred to the emergency department. She is seen today in consultation in the ED. Throughout the past 24 hours her oxygen requirements have progressed. She was initially on 4 L and now she is requiring BiPAP support currently 10/5 and 50% FiO2. Her O2 saturations are 85%. Her blood pressure is 89/31. Heart rate in the 60s. She is arousable but drifts off easily. Count 18.5. Hemoglobin 8.9. Platelets 260. Arterial blood gases on 50% FiO2 revealed a PaO2 79, pCO2 33, pH 7.30. Sodium 137. Potassium 2.5. Bicarb 12. BUN 46. Creatinine 2.19. Glucose 114. ProBNP 2260. Urinalysis turbid with greater than 182 WBCs and many bacteria. X-ray revealed cardiomegaly with pulmonary vascular congestion and bilateral pleural effusions. Computed tomography scan of the brain revealed no acute hemorrhage, hydrocephalus or mass effect. Recent echocardiogram revealed preserved left ventricular size and systolic function. Enlarged right ventricle with evidence of high right-sided pressures. She's been initiated on IV Lasix 80 mg every 8 hours. Antibiotics in the form of ceftriaxone and azithromycin. DuoNeb inhalations and Symbicort. Heparin for DVT prophylaxis. Review of Systems ROS unobtainable: due to mental status Past Medical History Past Medical History: Atrial Fibrillation, Coronary Artery Disease (CAD), Cancer, Heart Failure, COPD, Diabetes Mellitus, GERD/Reflux, GI Bleed, Hyperlipidemia, Hypertension, Skin Disorder Additional Past Medical History / Comment(s): Pt recently admitted to [facility] w/tarry stools, GI bleeding, anemia, had transfusion Tuesday02-28-23, EGD showed mild gastritis, refused colonoscopy when here recently, resolving UTI, d/c to [facility] 03-03-23, per her nurse Ana she signs own consents, is alert & orien maria elena, current skin breakdown/excoriation on buttocks-had been having loose stools, chronic chf, moderate pulmonary HTN, acute kidney injury, paroxysmal afib, acute blood loss anemia. Other hx: post polio syndrome rt side, neuropathy, hx. spontaneous pneumothorax after cabg, home oxygen at 2L/NC ATC, now NIDDM, chronic transaminitis, bowel resection for sepsis/infection, R breast cancer with lumpectomy only. this procedure was rescheduled due to no bowel prep and refusal to leave [facility] History of Any Multi-Drug Resistant Organisms: ESBL Date of last positivie culture/infection: 06/29/21 MDRO Source:: ESBL BACK Past Surgical History: Back Surgery, Bowel Resection, Breast Surgery, Cholecyst ectomy, Coronary Bypass/CABG, Ear Surgery, Heart Catheterization, Tonsillectomy Additional Past Surgical History / Comment(s): triple bypass 2014, left salpingo-oophorectomy, R breast lumpectomy, 2 back surgeries with post op infection with I&D, ear surgery x 3/due to bleeding L eardrum. recent EGD Past Anesthesia/Blood Transfusion Reactions: No Reported Reaction Past Psychological History: Anxiety, Depression Smoking Status: Former smoker Past Alcohol Use History: None Reported Past Drug Use History: None Reported - Past Family History Mother Family Medical History: Cancer Medications and Allergies Home Medications Medication Instructions Recorded Confirmed Type Atorvastatin [Lipitor] 40 mg PO HS@2100 03/23/16 03/14/23 History DULoxetine HCL [Cymbalta] 60 mg PO DAILY@0800 03/23/16 03/14/23 History Montelukast [Singulair] 10 mg PO DAILY@0800 05/18/21 03/14/23 History Budesonide-Formot 160-4.5 Mcg 2 puff INHALATION RT-BID@0800,1700 04/06/22 03/14/23 History [Symbicort 160-4.5 Mcg Inhaler] Biotin [Biotin Disolve] 10,000 mcg PO DIRECTED 09/03/22 03/14/23 History Letrozole [Femara] 2.5 mg PO DAILY@0800 09/03/22 03/14/23 History Cholecalciferol [Vitamin D3 (125 125 mcg PO DIRECTED 09/06/22 03/14/23 History Mcg = 5000 Iu)] Cyanocobalamin (Vitamin B-12) 2,000 mcg PO DIRECTED 09/06/22 03/14/23 History [Vitamin B-12] Albuterol Inhaler [Ventolin Hfa 2 puff INHALATION RT-QID PRN 11/10/22 03/14/23 History Inhaler] Amiodarone [Cordarone] 200 mg PO BID@0800,1700 11/10/22 03/14/23 History Lactobacillus Acidophilus 1 cap PO DIRECTED 11/29/22 03/14/23 History [Acidophilus Probiotic] Ubidecarenone [Coenzyme Q10] 200 mg PO DIRECTED 11/29/22 03/14/23 History Acetaminophen Tab [Tylenol] 650 mg PO Q6HR PRN tab 12/07/22 03/14/23 Rx Simethicone Chew [Mylicon Chew] 80 mg PO QID PRN tab 12/07/22 03/14/23 Rx Ascorbic Acid [Vitamin C] 250 mg PO DIRECTED 01/14/23 03/14/23 History Ferrous Sulfate [Iron (65 MG 325 mg PO DIRECTED 02/28/23 03/14/23 History Elemental)] Ipratropium-Albuterol Nebulize 3 ml INHALATION RT-Q6H PRN 02/28/23 03/14/23 History [Duoneb 0.5 mg-3 mg/3 ml Soln] Loperamide HCl [Imodium A-D] 2 - 4 mg PO QID PRN MDD 4 TABLETS 02/28/23 03/14/23 History Loratadine [Claritin] 10 mg PO DAILY PRN 02/28/23 03/14/23 History Magic Butt Paste 1 applic TOPICAL TID@0800,1400,2100 02/28/23 03/14/23 History Magnesium Hydroxide [Milk of 7,200 mg PO DAILY PRN 02/28/23 03/14/23 History Magnesia Concentrate] Metoprolol Tartrate [Lopressor] 25 mg PO BID@0800,1700 02/28/23 03/14/23 History Na Phos,M-B/Na Phos,Di-Ba [Fleet 133 ml RECTAL DAILY PRN 02/28/23 03/14/23 History Adult] Ondansetron [Zofran] 4 mg PO Q8HR PRN 02/28/23 03/14/23 History Pantoprazole [Protonix] 40 mg PO BID@0800,1700 02/28/23 03/14/23 History Potassium Chloride [Klor-Con M20] 20 meq PO DIRECTED 02/28/23 03/14/23 History bisacodyL [Dulcolax] 10 mg RECTAL DAILY PRN 02/28/23 03/14/23 History methIMAzole [Tapazole] 5 mg PO DAILY@0800 02/28/23 03/14/23 History Gabapentin 600 mg PO TID@0600,1400,2200 #9 tab 03/03/23 03/14/23 Rx Furosemide [Lasix] 40 mg PO DAILY@0800 03/14/23 03/14/23 History HYDROcodone/APAP 5-325MG [Esparto 1 tab PO Q8HR PRN 03/14/23 03/14/23 History 5-325] Linezolid [Zyvox] 600 mg PO BID@0800,1700 03/14/23 03/14/23 History metroNIDAZOLE [Flagyl] 250 mg PO TID@0600,1400,2200 03/14/23 03/14/23 History Allergies Allergy/AdvReac Type Severity Reaction Status Date / Time [email or web address] Allergy Unknown Verified 03/14/23 17:06 morphine Allergy rash,itchin Verified 03/14/23 17:06 g Sulfa (Sulfonamide Allergy Rash/Hives Verified 03/14/23 17:06 Antibiotics) amoxicillin [From Augmentin] AdvReac Diarrhea Verified 03/14/23 17:06 clavulanic acid AdvReac Diarrhea Verified 03/14/23 17:06 [From Augmentin] surgical susy AdvReac infection Uncoded 03/08/23 12:38 Physical Exam Vitals: Vital Signs Temp Pulse Resp BP Pulse Ox FiO2 03/15/23 15:15 70 03/15/23 15:12 70 03/15/23 15:07 70 03/15/23 15:02 67 20 83/32 94 L 03/15/23 14:36 67 18 89/31 84 L 03/15/23 12:32 67 20 86/35 03/15/23 11:23 50 03/15/23 10:48 69 34 H 90/29 90 L 03/15/23 10:00 73 34 H 90/63 90 L 03/15/23 08:12 90 L 50 03/15/23 08:00 96.3 F L 72 20 92/38 03/15/23 07:00 71 34 H 97/67 03/15/23 06:00 70 19 95/49 94 L 03/15/23 05:00 70 23 117/76 03/15/23 04:00 70 15 101/43 95 03/15/23 03:00 68 15 103/40 03/15/23 02:26 50 03/15/23 02:00 68 17 105/41 94 L 03/15/23 01:00 67 17 96/68 95 03/15/23 00:00 68 19 94/57 03/14/23 23:51 50 03/14/23 22:56 66 22 103/92 03/14/23 21:12 5 03/14/23 21:00 98.1 F 68 24 111/46 95 03/14/23 20:21 66 24 90/77 90 L 03/14/23 19:45 102/84 03/14/23 19:20 95/62 03/14/23 18:44 50 03/14/23 18:27 98.2 F 66 22 102/73 95 03/14/23 17:21 65 20 100/51 92 L 03/14/23 16:17 50 03/14/23 15:35 98.5 F 64 25 H 107/82 85 L GENERAL EXAM: Obtunded, 67-year-old female, on BiPAP, comfortable in no apparent distress. HEAD: Normocephalic. EYES: Normal reaction of pupils, equal size. NOSE: Clear with pink turbinates. THROAT: No erythema or exudates. NECK: No masses, no JVD. CHEST: No chest wall deformity. LUNGS: Equal air entry with no crackles, wheeze, rhonchi or dullness. CVS: S1 and S2 normal with no audible murmur, regular rhythm. ABDOMEN: No hepatosplenomegaly, normal bowel sounds, no guarding or rigidity. SPINE: No scoliosis or deformity SKIN: No rashes CENTRAL NERVOUS SYSTEM: Obtunded, tone is normal in all 4 extremities. EXTREMITIES: There is no peripheral edema. No clubbing, no cyanosis. Peripheral pulses are intact. Results - Laboratory Findings CBC and BMP: 03/14/23 16:42 03/14/23 16:42 ABG ABG pH 7.30 (7.35-7.45) L 03/14/23 21:17 ABG pCO2 33 mmHg (35-45) L 03/14/23 21:17 ABG pO2 79 mmHg (83-108) L 03/14/23 21:17 ABG O2 Saturation 94.4 % (94-97) 03/14/23 21:17 PT/INR, D-dimer PT 14.2 sec (10.0-12.5) H 03/14/23 16:42 INR 1.4 (<1.2) H 03/14/23 16:42 Abnormal lab findings: Abnormal Labs 03/14/23 03/14/23 03/14/23 16:08 16:42 16:42 WBC 18.5 H RBC 3.36 L Hgb 8.9 L Hct 29.7 L MCHC 29.8 L Neutrophils # 15.4 H Monocytes # 1.3 H PT 14.2 H INR 1.4 H ABG pH 7.29 L ABG pCO2 34 L ABG pO2 59 L* ABG HCO3 16 L ABG Total CO2 17 L ABG O2 Saturation 87.0 L VBG pH VBG HCO3 Chloride Carbon Dioxide BUN Creatinine Glucose AST Alkaline Phosphatase Total Protein Albumin Urine Appearance Urine RBC Urine WBC Urine WBC Clumps Urine Bacteria Hyaline Casts Urine Mucus Urine Yeast (Budding) 03/14/23 03/14/23 03/14/23 16:42 16:42 17:06 WBC RBC Hgb Hct MCHC Neutrophils # Monocytes # PT INR ABG pH ABG pCO2 ABG pO2 ABG HCO3 ABG Total CO2 ABG O2 Saturation VBG pH 7.27 L VBG HCO3 17 L Chloride 111 H Carbon Dioxide 12 L BUN 46 H Creatinine 2.19 H Glucose 114 H AST 70 H Alkaline Phosphatase 132 H Total Protein 5.5 L Albumin 2.3 L Urine Appearance Turbid H Urine RBC 12 H Urine WBC >182 H Urine WBC Clumps Moderate H Urine Bacteria Many H Hyaline Casts 127 H Urine Mucus Rare H Urine Yeast (Budding) Many H 03/14/23 21:17 WBC RBC Hgb Hct MCHC Neutrophils # Monocytes # PT INR ABG pH 7.30 L ABG pCO2 33 L ABG pO2 79 L ABG HCO3 16 L ABG Total CO2 17 L ABG O2 Saturation VBG pH VBG HCO3 Chloride Carbon Dioxide BUN Creatinine Glucose AST Alkaline Phosphatase Total Protein Albumin Urine Appearance Urine RBC Urine WBC Urine WBC Clumps Urine Bacteria Hyaline Casts Urine Mucus Urine Yeast (Budding) - Diagnostic Findings Chest x-ray: image reviewed Assessment and Plan Assessment: Acute on chronic hypoxic respiratory failure secondary to an acute exacerbation of diastolic congestive heart failure currently requiring BiPAP 10/5 and 50% FiO2 Recurrent pleural effusions, secondary to CHF, currently on diuretics and last thoracentesis on the right 02/28/2023 with 1.3 L removed. Cytology negative for malignancy Urinary tract infection, culture pending COPD with upper lobe predominance maintain on Symbicort on outpatient basis Recurrent GI bleed, likely secondary to bleeding gastric polyp. EGD was done on 02/28/2023. Plan was for patient colonoscopy on 03/14/2023 but due to the above aforementioned the procedure was canceled The patient is currently off anticoagulants. Gastric polyp Diverticulosis based on a colonoscopy that was done on 12/27/2022 Coronary artery disease with previous bypass surgery Paroxysmal A. fib current rhythm is sinus and the patient is admitted on anticoagulants. She has also underlying bundle branch block pattern Hypertension Hyperlipidemia Diabetes mellitus type 2 Right-sided breast cancer with a previous lumpectomy and sentinel lymph node biopsy and the patient is currently on hormonal treatment. recurrent blood loss anemia , likely secondary to GI bleeding Chronic back pain with previous back surgery currently maintained on Esparto and Neurontin. The patient has undergone a surgery for severe lumbar stenosis L2 through S1 and the patient has undergone laminectomy and facetectomy and for aminotomy with fusion at multiple levels. History of her lumbar wound dehiscence with serous drainage back in June 2022 Previous history of spontaneous pneumothorax on the left History of previous poliomyelitis on the right C. diff colitis in the past, treated Mild coagulopathy, INR is 1.4 Plan: The patient was seen and evaluated Chest x-ray, ABGs, labs and medications reviewed Would recommend admission to the intensive care unit Increase FiO2 to 70%, BiPAP 10/5 May require norepinephrine for pressure support Continue antibiotics, bronchodilators We will continue to follow and make further recommendations based on her clinical status I have personally seen and examined the patient, performed the documentation and the assessment and plan as written. Number of minutes spent on the visit: 20.
--- NOTE | 2023-03-15 16:28 | US ---
EXAMINATION TYPE: US chest DATE OF EXAM: 03/15/2023 COMPARISON: US & CXR CLINICAL INDICATION: Female, 67 years old with history of Bilateral effusions; Effusions TECHNIQUE: Targeted ultrasound of the posterior lower bilateral hemithoraces EXAM MEASUREMENTS: Right Pleural Effusion pocket size: 8.9 cm Right skin surface to fluid distance: 6.0 cm Left Pleural Effusion pocket size: 0 cm Right side marked for possible thoracentesis outside the dept. Left side NOT marked for possible thoracentesis outside the dept. Pulmonologists are able to review the images in the patient?s EMR. IMPRESSIONS: As above
--- NOTE | 2023-03-15 16:33 | P.PN ---
Subjective Progress Note Date: 03/15/23 Hospital Course: 67-year-old female with history of polio with right-sided deficits, atrial fibrillation, COPD, chronic hypoxic respiratory failure, CAD, hypertension, dyslipidemia, insulin-dependent diabetes, hypothyroidism, GI bleed. She was recently admitted for congestive heart failure with bilateral pleural effusion and underwent right-sided thoracentesis with 1.3 L fluid removal. She was then discharged to rehab facility. She was supposed to undergo colonoscopy yesterday, and was found to be altered and hypoxic. She was then sent to the emergency. On initial presentation, patient was afebrile, pulse 64, respiratory rate 25, blood pressure 107/82, saturating at 85% on 4 L, was transitioned to BiPAP. Patient is now hypotensive still requiring BiPAP. Initial white count was 18.5, hemoglobin 8.9 from baseline, ABG showed pH of 7.29, pO2 of 59, pCO2 34, bicarb 12, creatinine 2.19 about baseline, troponin negative, proBNP 2000, urinalysis negative for leukocyte esterase and nitrites. CT head did not show any acute process. Chest x-ray shows bilateral pleural effusion, worse on the right. EKG shows right bundle branch block. Initially cardiology was consulted , was started on IV Lasix. Due to persistent hypotension, patient unable to tolerate Lasix. ICU was consulted. Now patient being admitted to the medical ICU. Subjective: Patient seen and examined at bedside. Remains encephalopathic, on BiPAP Pertinent positives and negatives as discussed above, a complete review of systems was performed and all other systems are negative. Vitals Signs Reviewed. General: nontoxic, in mild distress, appears at stated age, chronically ill- appearing Derm: warm, dry Head: atraumatic, normocephalic, symmetric Eyes: Pupils equal and reactive, anicteric sclera Mouth: no lip lesion, mucus membranes moist Cardiovascular: S1S2 reg, no murmur Lungs: Bilateral rales , no accessory muscle use, on BiPAP Abdominal: soft, nontender to palpation, no guarding, no appreciable organomegaly Ext: no gross muscle atrophy, trace edema, no contractures Neuro: Moving all extremities Psych: Lethargic,, not appropriately responding Data Reviewed Today: Pertinent Labs: No new labs Imaging: No new imaging Assessment and Plan: Patient is critically ill, being transferred to the medical ICU. 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, patient being admitted to medical ICU, continue BiPAP -Lasix 40 mg IV every 8 hours, monitor renal function and electrolytes -Continue IV azithromycin 500 mg, ceftriaxone 2 g every 24 hours -Cardiology note reviewed, Discontinued amiodarone, continue diuretics, holding Eliquis given recent GI bleed -Blood cultures pending -Sputum cultures and procal ordered Chronic: Polio with right-sided deficits Atrial fibrillation COPD not in exacerbation CAD Dyslipidemia DVT ppx: SCDs Code status: FC Anticipated discharge place: pending clinical course Anticipated discharge time: pending clinical course Objective - Vital Signs Vital signs: Vital Signs Temp 96.3 F L 03/15/23 08:00 Pulse 67 03/15/23 15:02 Resp 20 03/15/23 15:02 BP 83/32 03/15/23 15:02 Pulse Ox 94 L 03/15/23 15:02 FiO2 70 03/15/23 15:15 Intake & Output 03/14/23 03/15/23 03/15/23 18:59 06:59 18:59 Weight 74.843 kg - Labs CBC & Chem 7: 03/14/23 16:42 03/14/23 16:42 Labs: Abnormal Lab Results - Last 24 Hours (Table) 03/14/23 03/14/23 03/14/23 Range/Units 16:42 16:42 16:42 WBC 18.5 H (3.8-10.6) k/uL RBC 3.36 L (3.80-5.40) m/uL Hgb 8.9 L (11.4-16.0) gm/dL Hct 29.7 L (34.0-46.0) % MCHC 29.8 L (31.0-37.0) g/dL Neutrophils # 15.4 H (1.3-7.7) k/uL Monocytes # 1.3 H (0-1.0) k/uL PT 14.2 H (10.0-12.5) sec INR 1.4 H (<1.2) ABG pH (7.35-7.45) ABG pCO2 (35-45) mmHg ABG pO2 (83-108) mmHg ABG HCO3 (21-25) mmol/L ABG Total CO2 (19-24) mmol/L VBG pH (7.31-7.41) VBG HCO3 (24-28) mmol/L Chloride 111 H (98-107) mmol/L Carbon Dioxide 12 L (22-30) mmol/L BUN 46 H (7-17) mg/dL Creatinine 2.19 H (0.52-1.04) mg/dL Glucose 114 H (74-99) mg/dL AST 70 H (14-36) U/L Alkaline Phosphatase 132 H (38-126) U/L Total Protein 5.5 L (6.3-8.2) g/dL Albumin 2.3 L (3.5-5.0) g/dL Urine Appearance (Clear) Urine RBC (0-5) /hpf Urine WBC (0-5) /hpf Urine WBC Clumps (None) /hpf Urine Bacteria (None) /hpf Hyaline Casts (0-2) /lpf Urine Mucus (None) /hpf Urine Yeast (Budding) (None) /hpf 03/14/23 03/14/23 03/14/23 Range/Units 16:42 17:06 21:17 WBC (3.8-10.6) k/uL RBC (3.80-5.40) m/uL Hgb (11.4-16.0) gm/dL Hct (34.0-46.0) % MCHC (31.0-37.0) g/dL Neutrophils # (1.3-7.7) k/uL Monocytes # (0-1.0) k/uL PT (10.0-12.5) sec INR (<1.2) ABG pH 7.30 L (7.35-7.45) ABG pCO2 33 L (35-45) mmHg ABG pO2 79 L (83-108) mmHg ABG HCO3 16 L (21-25) mmol/L ABG Total CO2 17 L (19-24) mmol/L VBG pH 7.27 L (7.31-7.41) VBG HCO3 17 L (24-28) mmol/L Chloride (98-107) mmol/L Carbon Dioxide (22-30) mmol/L BUN (7-17) mg/dL Creatinine (0.52-1.04) mg/dL Glucose (74-99) mg/dL AST (14-36) U/L Alkaline Phosphatase (38-126) U/L Total Protein (6.3-8.2) g/dL Albumin (3.5-5.0) g/dL Urine Appearance Turbid H (Clear) Urine RBC 12 H (0-5) /hpf Urine WBC >182 H (0-5) /hpf Urine WBC Clumps Moderate H (None) /hpf Urine Bacteria Many H (None) /hpf Hyaline Casts 127 H (0-2) /lpf Urine Mucus Rare H (None) /hpf Urine Yeast (Budding) Many H (None) /hpf
[2023-03-15 17:27] LABS: Glucose,Whole Blood 107 mg/dL (70-110)
[2023-03-15] MEDS ORDERED: NOREPINEPHRINE 4 MG in SODIUM CHLORIDE 0.9% 250 ML IV SCH (17:45)
[2023-03-15 17:58] LABS: ABG Base Excess -14.8 mmol/L; ABG HCO3 13 mmol/L (21-25); ABG Oxygen Saturation 89.2 % (94-97); ABG PCO2 32 mmHg (35-45); ABG PH 7.21 (7.35-7.45); ABG PO2 66 mmHg (83-108); ABG TCO2 14 mmol/L (19-24); Allen Test Performed? Yes
[2023-03-15] MEDS ORDERED: SODIUM BICARB 8.4% 50 ML SYR (1 MEQ/ML) IV STA ×3 (18:06→22:10)
[2023-03-15 18:16] LABS: HCT 29.7 % (34.0-46.0); HGB 8.6 gm/dL (11.4-16.0); Hypochromasia Marked; MCH 26.5 pg (25.0-35.0); MCV 91.4 fL (80.0-100.0); Mean Platelet Volume 10.1; Platelet Count 226 k/uL (150-450); Poikilocytosis Slight; RBC 3.25 m/uL (3.80-5.40); RDW 15.2 % (11.5-15.5)
[2023-03-15 18:20] LABS: African American GFR (CKD) 18 (>60 ml/min/1.73 sqM); Anion Gap 17 mmol/L; Blood Urea Nitrogen 49 mg/dL (7-17); Calcium 9.2 mg/dL (8.4-10.2); Carbon Dioxide 11 mmol/L (22-30); Chloride 113 mmol/L (98-107); Glucose 90 mg/dL (74-99); Non-African American GFR(CKD) 15 (>60 ml/min/1.73 sqM); Phosphorus 6.4 mg/dL (2.5-4.5); Potassium 3.7 mmol/L (3.5-5.1); Sodium 141 mmol/L (137-145)
[2023-03-15 18:53] LABS: Lymphocytes # (M) 1.11 k/uL (1.0-4.8); Monocytes # (M) 1.11 k/uL (0-1.0); Neutrophils # (M) 34.78 k/uL (1.3-7.7); Neutrophils % (M) 94 %; Nucleated Red Blood Cells 1 /100 WBC (0-0); Total Cells Counted 100
[2023-03-15 18:54] LABS: Polychromasia Present
[2023-03-15 18:55] LABS: Large Platelets Present
--- NOTE | 2023-03-15 19:06 | P.GSCN ---
History of Present Illness History of present illness: 67-year-old white female patient has been transferred from the emergency room with history of shortness of breath with BiPAP patient is a poor IV access was considered tilted for placement of a debridement of her catheter. Patient has history of atrial fibrillation, hypertension, chronic back problem patient has a history of cystocele the breast with lumpectomy patient was seen in the in tensive care unit patient is on BiPAP Chest patient is a crackles bilateral Abdomen soft nontender Femorals are 1+ bilateral Plan is placement of a triple-lumen central catheter risk and complication discussed Past Medical History Past Medical History: Atrial Fibrillation, Coronary Artery Disease (CAD), Cancer, Heart Failure, COPD, Diabetes Mellitus, GERD/Reflux, GI Bleed, Hyperlipidemia, Hypertension, Skin Disorder Additional Past Medical History / Comment(s): Pt recently admitted to [facility] w/tarry stools, GI bleeding, anemia, had transfusion Tuesday02-28-23, EGD showed mild gastritis, refused colonoscopy when here recently, resolving UTI, d/c to [facility] 03-03-23, per her nurse Ana she signs own consents, is alert & o riented, current skin breakdown/excoriation on buttocks-had been having loose stools, chronic chf, moderate pulmonary HTN, acute kidney injury, paroxysmal afib, acute blood loss anemia. Other hx: post polio syndrome rt side, neuropathy, hx. spontaneous pneumothorax after cabg, home oxygen at 2L/NC ATC, now NIDDM, chronic transaminitis, bowel resection for sepsis/infection, R breast cancer with lumpectomy only. this procedure was rescheduled due to no bowel prep and refusal to leave [facility] History of Any Multi-Drug Resistant Organisms: ESBL Year Discovered:: 06/29/21 MDRO Source:: ESBL BACK Past Surgical History: Back Surgery, Bowel Resection, Breast Surgery, Cholecystectomy, Coronary Bypass/CABG, Ear Surgery, Heart Catheterization, Tonsillectomy Additional Past Surgical History / Comment(s): triple bypass 2013, left salpingo-oophorectomy, R breast lumpectomy, 2 back surgeries with post op infection with I&D, ear surgery x 3/due to bleeding L eardrum. recent EGD Past Anesthesia/Blood Transfusion Reactions: No Reported Reaction Past Psychological History: Anxiety, Depression Smoking Status: Former smoker Past Alcohol Use History: None Reported Past Drug Use History: None Reported - Past Family History Mother Family Medical History: Cancer Medications and Allergies Home Medications Medication Instructions Recorded Confirmed Type Atorvastatin [Lipitor] 40 mg PO HS@2100 03/23/16 03/14/23 History DULoxetine HCL [Cymbalta] 60 mg PO DAILY@0800 03/23/16 03/14/23 History Montelukast [Singulair] 10 mg PO DAILY@0800 05/18/21 03/14/23 History Budesonide-Formot 160-4.5 Mcg 2 puff INHALATION RT-BID@0800,1700 04/06/22 History [Symbicort 160-4.5 Mcg Inhaler] Biotin [Biotin Disolve] 10,000 mcg PO DIRECTED 09/03/22 03/14/23 History Letrozole [Femara] 2.5 mg PO DAILY@0800 09/03/22 03/14/23 History Cholecalciferol [Vitamin D3 (125 125 mcg PO DIRECTED 09/06/22 03/14/23 History Mcg = 5000 Iu)] Cyanocobalamin (Vitamin B-12) 2,000 mcg PO DIRECTED 09/06/22 03/14/23 History [Vitamin B-12] Albuterol Inhaler [Ventolin Hfa 2 puff INHALATION RT-QID PRN 11/10/22 03/14/23 History Inhaler] Amiodarone [Cordarone] 200 mg PO BID@0800,1700 11/10/22 03/14/23 History Lactobacillus Acidophilus 1 cap PO DIRECTED 11/29/22 03/14/23 History [Acidophilus Probiotic] Ubidecarenone [Coenzyme Q10] 200 mg PO DIRECTED 11/29/22 03/14/23 History Acetaminophen Tab [Tylenol] 650 mg PO Q6HR PRN tab 12/07/22 03/14/23 Rx Simethicone Chew [Mylicon Chew] 80 mg PO QID PRN tab 12/07/22 03/14/23 Rx Ascorbic Acid [Vitamin C] 250 mg PO DIRECTED 01/14/23 03/14/23 History Ferrous Sulfate [Iron (65 MG 325 mg PO DIRECTED 02/28/23 03/14/23 History Elemental)] Ipratropium-Albuterol Nebulize 3 ml INHALATION RT-Q6H PRN 02/28/23 03/14/23 History [Duoneb 0.5 mg-3 mg/3 ml Soln] Loperamide HCl [Imodium A-D] 2 - 4 mg PO QID PRN MDD 4 TABLETS 02/28/23 03/14/23 History Loratadine [Claritin] 10 mg PO DAILY PRN 02/28/23 03/14/23 History Magic Butt Paste 1 applic TOPICAL TID@0800,1400,2100 02/28/23 03/14/23 History Magnesium Hydroxide [Milk of 7,200 mg PO DAILY PRN 02/28/23 03/14/23 History Magnesia Concentrate] Metoprolol Tartrate [Lopressor] 25 mg PO BID@0800,1700 02/28/23 03/14/23 History Na Phos,M-B/Na Phos,Di-Ba [Fleet 133 ml RECTAL DAILY PRN 02/28/23 03/14/23 History Adult] Ondansetron [Zofran] 4 mg PO Q8HR PRN 02/28/23 03/14/23 History Pantoprazole [Protonix] 40 mg PO BID@0800,1700 02/28/23 03/14/23 History Potassium Chloride [Klor-Con M20] 20 meq PO DIRECTED 02/28/23 03/14/23 History bisacodyL [Dulcolax] 10 mg RECTAL DAILY PRN 02/28/23 03/14/23 History methIMAzole [Tapazole] 5 mg PO DAILY@0800 02/28/23 03/14/23 History Gabapentin 600 mg PO TID@0600,1400,2200 #9 tab 03/03/23 03/14/23 Rx Furosemide [Lasix] 40 mg PO DAILY@0800 03/14/23 03/14/23 History HYDROcodone/APAP 5-325MG [Hood 1 tab PO Q8HR PRN 03/14/23 03/14/23 History 5-325] Linezolid [Zyvox] 600 mg PO BID@0800,1700 03/14/23 03/14/23 History metroNIDAZOLE [Flagyl] 250 mg PO TID@0600,1400,2200 03/14/23 03/14/23 History Allergies Allergy/AdvReac Type Severity Reaction Status Date / Time [facility] Allergy Unknown Verified 03/14/23 17:06 morphine Allergy rash,itchin Verified 03/14/23 17:06 g Sulfa (Sulfonamide Allergy Rash/Hives Verified 03/14/23 17:06 Antibiotics) amoxicillin [From Augmentin] AdvReac Diarrhea Verified 03/14/23 17:06 clavulanic acid AdvReac Diarrhea Verified 03/14/23 17:06 [From Augmentin] surgical susy AdvReac infection Uncoded 03/08/23 12:38 Surgical - Exam Vital Signs Temp Pulse Resp BP Pulse Ox 98.5 F 64 25 H 107/82 85 L 03/14/23 15:35 03/14/23 15:35 03/14/23 15:35 03/14/23 15:35 03/14/23 15:35 Results - Labs 03/15/23 16:33 03/15/23 18:03 Abnormal Lab Results - Last 24 Hours (Table) 03/14/23 03/15/23 03/15/23 Range/Units 21:17 16:33 17:52 WBC 37.0 H (3.8-10.6) k/uL RBC 3.25 L (3.80-5.40) m/uL Hgb 8.6 L (11.4-16.0) gm/dL Hct 29.7 L (34.0-46.0) % MCHC 29.0 L (31.0-37.0) g/dL Neutrophils # (Manual) 34.78 H (1.3-7.7) k/uL Monocytes # (Manual) 1.11 H (0-1.0) k/uL Nucleated RBCs 1 H (0-0) /100 WBC ABG pH 7.30 L 7.21 L (7.35-7.45) ABG pCO2 33 L 32 L (35-45) mmHg ABG pO2 79 L 66 L (83-108) mmHg ABG HCO3 16 L 13 L (21-25) mmol/L ABG Total CO2 17 L 14 L (19-24) mmol/L ABG O2 Saturation 89.2 L (94-97) % Chloride (98-107) mmol/L Carbon Dioxide (22-30) mmol/L BUN (7-17) mg/dL Creatinine (0.52-1.04) mg/dL Phosphorus (2.5-4.5) mg/dL 03/15/23 Range/Units 18:03 WBC (3.8-10.6) k/uL RBC (3.80-5.40) m/uL Hgb (11.4-16.0) gm/dL Hct (34.0-46.0) % MCHC (31.0-37.0) g/dL Neutrophils # (Manual) (1.3-7.7) k/uL Monocytes # (Manual) (0-1.0) k/uL Nucleated RBCs (0-0) /100 WBC ABG pH (7.35-7.45) ABG pCO2 (35-45) mmHg ABG pO2 (83-108) mmHg ABG HCO3 (21-25) mmol/L ABG Total CO2 (19-24) mmol/L ABG O2 Saturation (94-97) % Chloride 113 H (98-107) mmol/L Carbon Dioxide 11 L (22-30) mmol/L BUN 49 H (7-17) mg/dL Creatinine 2.99 H (0.52-1.04) mg/dL Phosphorus 6.4 H (2.5-4.5) mg/dL Diabetes panel 03/15/23 Range/Units 18:03 Sodium 141 (137-145) mmol/L Potassium 3.7 (3.5-5.1) mmol/L Chloride 113 H (98-107) mmol/L Carbon Dioxide 11 L (22-30) mmol/L BUN 49 H (7-17) mg/dL Creatinine 2.99 H (0.52-1.04) mg/dL Glucose 90 (74-99) mg/dL Calcium 9.2 (8.4-10.2) mg/dL Calcium panel 03/15/23 Range/Units 18:03 Calcium 9.2 (8.4-10.2) mg/dL Phosphorus 6.4 H (2.5-4.5) mg/dL Pituitary panel 03/15/23 Range/Units 18:03 Sodium 141 (137-145) mmol/L Potassium 3.7 (3.5-5.1) mmol/L Chloride 113 H (98-107) mmol/L Carbon Dioxide 11 L (22-30) mmol/L BUN 49 H (7-17) mg/dL Creatinine 2.99 H (0.52-1.04) mg/dL Glucose 90 (74-99) mg/dL Calcium 9.2 (8.4-10.2) mg/dL Adrenal panel 03/15/23 Range/Units 18:03 Sodium 141 (137-145) mmol/L Potassium 3.7 (3.5-5.1) mmol/L Chloride 113 H (98-107) mmol/L Carbon Dioxide 11 L (22-30) mmol/L BUN 49 H (7-17) mg/dL Creatinine 2.99 H (0.52-1.04) mg/dL Glucose 90 (74-99) mg/dL Calcium 9.2 (8.4-10.2) mg/dL
--- NOTE | 2023-03-15 19:07 | P.PCN ---
Description of Procedure: Procedure note placement of right triple lumen central line catheter right femoral approach Right groin were prepped and draped applied sterile manner 1% lidocaine plain infiltrated right groin area. Ultrasound-guided needle was introduced to right common femoral vein and guidewire was passed without any resistance after that dilator was advanced top the guidewire replaced a triple-lumen central line catheter guidewire was removed flushed with heparin saline and Hep-Lock secured with 3-0 nylon patient for the procedure well
[2023-03-15 20:46] LABS: Glucose,Whole Blood 107 mg/dL (70-110)
[2023-03-15 20:56] LABS: ABG Base Excess -14.1 mmol/L; ABG HCO3 14 mmol/L (21-25); ABG Oxygen Saturation 93.8 % (94-97); ABG PCO2 33 mmHg (35-45); ABG PH 7.22 (7.35-7.45); ABG PO2 81 mmHg (83-108); ABG TCO2 15 mmol/L (19-24); Allen Test Performed? Yes
[2023-03-15] MEDS ORDERED: ATORVASTATIN 40 MG TAB PO SCH (21:00)
[2023-03-15] MEDS: NOREPINEPHRINE 32 MG in SODIUM CHLORIDE 0.9% 218 ML IV SCH (21:04)
[2023-03-15] MEDS ORDERED: CISATRACURIUM 2 MG/ML 5 ML VIAL IV ONE (21:21)
[2023-03-15] MEDS ORDERED: LORazepam 2 MG/ML INJ IV STA (21:21)
[2023-03-15] MEDS ORDERED: HYDROmorphone 1 MG/ML 1 ML SYRINGE IVP STA ×2 (21:23→21:33)
[2023-03-15] MEDS ORDERED: propofoL 100 ML IV ONE (21:25)
[2023-03-15] MEDS ORDERED: VASOPRESSIN 60 UNIT in SODIUM CHLORIDE 0.9% 150 ML IV SCH (22:00)
[2023-03-15] MEDS ORDERED: SUCCINYLCHOLINE CHLORIDE 200 MG/10 ML VIAL IV STA (22:01)
[2023-03-15] MEDS ORDERED: CISATRACURIUM 2 MG/ML 5 ML VIAL IV STA (22:03)
[2023-03-15 22:05] LABS: ABG Base Excess -17.1 mmol/L; ABG HCO3 13 mmol/L (21-25); ABG Oxygen Saturation 96.6 % (94-97); ABG PCO2 42 mmHg (35-45); ABG PO2 115 mmHg (83-108); ABG TCO2 14 mmol/L (19-24); Allen Test Performed? Yes
[2023-03-15 22:07] LABS: ABG PH 7.09 (7.35-7.45)
[2023-03-15] MEDS ORDERED: ATROPINE SULFATE 0.4 MG/ML 20 ML VIAL IV STA (22:15)
[2023-03-15] MEDS ORDERED: DEXTROSE 5% IN WATER 1,000 ML with SODIUM BICARB (1 MEQ/ML) 150 ML IV SCH (22:15)
[2023-03-15] MEDS ORDERED: ATROPINE SULFATE 0.1 MG/ML 10ML SYRINGE ONE (22:16)
--- NOTE | 2023-03-15 22:51 | XR ---
EXAM: XR Chest, 1 View CLINICAL HISTORY: ITS.REASON XR Reason: tube, line placement TECHNIQUE: Frontal view of the chest. COMPARISON: Chest x-ray 03/14/2023 FINDINGS: Lungs: Unchanged interstitial and airspace opacities. Pleural space: Decreased right pleural effusion. No pneumothorax. Heart: Unremarkable. No cardiomegaly. Tubes, lines and devices: Endotracheal tube terminates 1.3 cm above the keysha. There appears to be a new right-sided pleural drain. Esophagogastric tube terminates below the diaphragm. Left subclavian central line terminates at the cavoatrial junction. IMPRESSION: 1. Appropriately positioned lines and tubes. 2. Decreased right pleural effusion. 3. Unchanged interstitial and airspace opacities.
[2023-03-15] MEDS: PANTOPRAZOLE 40 MG/10 ML VIAL IVP SCH (22:55)
[2023-03-15] MEDS: IPRATROPIUM-ALBUTEROL 3 ML NEB INHALATION SCH (23:32)
[2023-03-16 00:32] LABS: ABG Base Excess -16.7 mmol/L; ABG HCO3 14 mmol/L (21-25); ABG Oxygen Saturation 97.4 % (94-97); ABG PCO2 50 mmHg (35-45); ABG PO2 129 mmHg (83-108); ABG TCO2 15 mmol/L (19-24); Allen Test Performed? Yes
[2023-03-16] MEDS ORDERED: SODIUM BICARB 8.4% 50 ML SYR (1 MEQ/ML) IV STA ×4 (00:36→05:32)
[2023-03-16 00:38] LABS: ABG PH 7.05 (7.35-7.45)
--- NOTE | 2023-03-16 02:29 | OP ---
OPERATIVE REPORT DATE OF SERVICE : PROCEDURE: Emergent intubation. PREOPERATIVE DIAGNOSIS: Respiratory failure. POSTOPERATIVE DIAGNOSIS: Respiratory failure. DESCRIPTION OF PROCEDURE: Prior to intubation, the patient received 2 mg of Ativan, 1 mg of Dilaudid, 3 mL or 60 mg of succinylcholine and after intubation received 10 mg of cisatracurium or Nimbex. The patient was intubated with #8 endotracheal tube. We used a standard laryngoscope with #3 Jordon blade. Under direct visualization, the endotracheal tube after the patient was sedated, was placed through the glottic opening into the trachea. There were good bilateral breath sounds. There was good color change on the qualitative capnograph. The endotracheal tube was secured. A chest x-ray was ordered to check placement. There was no immediate complication. MMODL / IJN: [id number] /
--- NOTE | 2023-03-16 02:29 | OP ---
OPERATIVE REPORT DATE OF SERVICE : PROCEDURE: Left subclavian triple-lumen catheter. PREOPERATIVE DIAGNOSES: Hypotension, administration of fluids and pressors, respiratory failure. POSTOPERATIVE DIAGNOSES: Hypotension, administration of fluids and pressors, respiratory failure. DESCRIPTION OF PROCEDURE: A time-out was completed verifying correct patient, procedure, site, positioning, and implant(s) or special equipment if applicable. The patient was placed in a dependent position appropriate for triple lumen catheter placement based on the vein to be cannulated. The patient's left shoulder was prepped and draped in sterile fashion. 1% Lidocaine was used to anesthetize the surrounding skin area. A triple lumen 9F Cordis catheter was introduced into the left subclavian vein using Seldinger technique. The catheter was threaded smoothly over the guide wire and appropriate blood return was obtained. Each lumen of the catheter was evacuated of air and flushed with sterile saline. The catheter was then sutured in place to the skin and a sterile dressing applied. Perfusion to the extremity distal to the point of catheter insertion was checked and found to be adequate. There was no immediate complication. There was blood return from all 3 ports, catheter was sutured in place. Sterile dressing applied by the nurse. The tip of the catheter was seen in the junction of superior vena cava and atrium. Again, there was no immediate complication and there was informed consent. MMODL / IJN: [id number] /
[2023-03-16] MEDS: FUROSEMIDE 10 MG/ML 4 ML VIAL IV SCH (03:28)
[2023-03-16] MEDS: IPRATROPIUM-ALBUTEROL 3 ML NEB INHALATION SCH ×2 (03:34→07:34)
[2023-03-16 04:02] LABS: ABG Base Excess -16.1 mmol/L; ABG HCO3 12 mmol/L (21-25); ABG Oxygen Saturation 95.7 % (94-97); ABG PCO2 34 mmHg (35-45); ABG PO2 93 mmHg (83-108); ABG TCO2 14 mmol/L (19-24); Allen Test Performed? Yes
[2023-03-16 04:04] LABS: ABG PH 7.17 (7.35-7.45)
[2023-03-16 04:19] LABS: HCT 30.7 % (34.0-46.0); HGB 8.9 gm/dL (11.4-16.0); Hypochromasia Marked; MCH 26.6 pg (25.0-35.0); MCV 91.7 fL (80.0-100.0); Mean Platelet Volume 9.1; Platelet Count 368 k/uL (150-450); Poikilocytosis Slight; RBC 3.35 m/uL (3.80-5.40); RDW 15.2 % (11.5-15.5)
[2023-03-16 04:29] LABS: African American GFR (CKD) 15 (>60 ml/min/1.73 sqM); Anion Gap 25 mmol/L; Blood Urea Nitrogen 49 mg/dL (7-17); Calcium 8.8 mg/dL (8.4-10.2); Carbon Dioxide 10 mmol/L (22-30); Chloride 111 mmol/L (98-107); Glucose 92 mg/dL (74-99); Magnesium 2.1 mg/dL (1.6-2.3); Non-African American GFR(CKD) 13 (>60 ml/min/1.73 sqM); Potassium 3.4 mmol/L (3.5-5.1); Sodium 146 mmol/L (137-145)
[2023-03-16 04:36] LABS: Glucose,Whole Blood 110 mg/dL (70-110)
[2023-03-16] MEDS ORDERED: POTASSIUM BICARBONATE/CIT AC 20 MEQ TABLET.EFF PO ONE (05:03)
[2023-03-16] MEDS ORDERED: LINEZOLID 600 MG in DEXTROSE/WATER 1 300ML.BAG IVPB SCH ×2 (05:04→09:00)
[2023-03-16] MEDS ORDERED: HYDROCORTISONE SUCCINATE 100 MG/2 ML VIAL IV STA (05:09)
[2023-03-16] MEDS: AZITHROMYCIN 500 MG in SODIUM CHLORIDE 0.9% 250 ML IVPB SCH (05:26)
[2023-03-16] MEDS ORDERED: DOPamine DRIP 800 MG in DEXTROSE/WATER 1 250ML.BAG IV SCH (06:45)
[2023-03-16] MEDS: SYMBICORT 160-4.5 MCG INHALER INHALATION SCH (07:33)
--- NOTE | 2023-03-16 07:50 | XR ---
EXAMINATION TYPE: XR chest 1V portable DATE OF EXAM: 03/16/2023 5:22 AM CLINICAL INDICATION:Female, 67 years old with history of Tube placement; [facility] COMPARISON: Chest radiograph from one day prior. TECHNIQUE: XR chest 1V portable Frontal view of the chest. FINDINGS: Lungs/Pleura: Similar multifocal airspace opacities. No evidence of pneumothorax or pleural effusion. Pulmonary vascularity: Unremarkable. Heart/mediastinum: Cardiomediastinal silhouette is unremarkable. Musculoskeletal: No acute osseous pathology. Other findings: None Lines/Tubes: Endotracheal tube with distal tip 3.4 cm above the keysha. Nasogastric tube with its distal tip and side-port projecting under the diaphragm. Left central venous catheter with distal tip at the cavoatrial junction. IMPRESSION: Endotracheal nasogastric tubes in appropriate position. Left central venous catheter with tip in appropriate position. Diffuse haziness of lungs unchanged from prior correlate for atypical pneumonia versus pulmonary jaspreet estion.
[2023-03-16 08:06] VITALS: BP 85/28; PULSE 63; RESP 12; TEMP 98.2
[2023-03-16] MEDS: METOPROLOL TARTRATE 25 MG TAB PO SCH (08:17)
[2023-03-16] MEDS: methIMAzole 5 MG TAB PO SCH (08:18)
[2023-03-16] MEDS: MONTELUKAST 10 MG TAB PO SCH (08:18)
[2023-03-16 08:39] LABS: Band Neutrophils % 1 %; Lymphocytes # (M) 1.91 k/uL (1.0-4.8); Monocytes # (M) 1.91 k/uL (0-1.0); Neutrophils % (M) 92 %; Nucleated Red Blood Cells 2 /100 WBC (0-0); Total Cells Counted 200; WBC 47.7 k/uL (3.8-10.6)
[2023-03-16 08:43] LABS: Anisocytosis (M) Present
[2023-03-16] MEDS: PANTOPRAZOLE 40 MG/10 ML VIAL IVP SCH (08:53)
[2023-03-16] MEDS: HEPARIN SODIUM,PORCINE 5,000 UNIT/ML 1 ML VIAL SQ SCH (08:53)
[2023-03-16] MEDS: NOREPINEPHRINE 32 MG in SODIUM CHLORIDE 0.9% 218 ML IV SCH (08:56)
[2023-03-16] MEDS ORDERED: CHLORHEXIDINE GLUCONATE 15 ML CUP MUCOUS MEM SCH (09:00)
[2023-03-16] MEDS ORDERED: MORPHINE SULFATE 4 MG/ML SYRINGE IV PRN (09:22)
[2023-03-16] MEDS ORDERED: MORPHINE SULFATE (100 MG/2 ML) 100 MG in SODIUM CHLORIDE 0.9% 100 ML IV SCH (09:30)
[2023-03-16] MEDS ORDERED: SCOPOLAMINE 1 MG/72 HR PATCH TRANSDERM SCH (10:00)
--- NOTE | 2023-03-16 10:56 | P.PN ---
Subjective Progress Note Date: 03/16/23 Principal diagnosis: Respiratory failure. This is a 67-year-old female patient with a known history of atrial fibrillation, congestive heart failure, diabetes mellitus, hyperlipidemia, hypertension, GI bleed, COPD who was recently here for a GI bleed and received blood transfusion and EGD showed mild gastritis at that time she had refused colonoscopy. During that hospitalization she was also in congestive heart failure with bilateral pleural effusions and had undergone a right sided thoracentesis on 02/28/2023 with 1.3 L of fluid removed. Negative for malignancy. She was discharged to [facility] for rehabilitation. She was brought back in from [facility] yesterday for the colonoscopy as scheduled however in the preop area she was found to be altered and had significant hypoxemia was transferred to the emergency department. She is seen today in consultation in the ED. Throughout the past 24 hours her oxygen requirements have progressed. She was initially on 4 L and now she is requiring BiPAP support currently 10/5 and 50% FiO2. Her O2 saturations are 85%. Her blood pressure is 89/31. Heart rate in the 60s. She is arousable but drifts off easily. Count 18.5. Hemoglobin 8.9. Platelets 260. Arterial blood gases on 50% FiO2 revealed a PaO2 79, pCO2 33, pH 7.30. Sodium 137. Potassium 2.5. Bicarb 12. BUN 46. Creatinine 2.19. Glucose 114. ProBNP 2260. Urinalysis turbid with greater than 182 WBCs and many bacteria. X-ray revealed cardiomegaly with pulmonary vascular congestion and bilateral pleural effusions. Computed tomography scan of the brain revealed no acute hemorrhage, hydrocephalus or mass effect. Recent echocardiogram revealed preserved left ventricular size and systolic function. Enlarged right ventricle with evidence of high right-sided pressures. She's been initiated on IV Lasix 80 mg every 8 hours. Antibiotics in the form of ceftriaxone and azithromycin. DuoNeb inhalations and Symbicort. Heparin for DVT prophylaxis. Progress note dated 03/16/2023. 67-year-old female that we saw yesterday in consultation. We saw her in the emergency department, for respiratory failure, atrial fibrillation, CHF, diabetes, hyperlipidemia, hypertension, GI bleed, and COPD. The patient's condition worsened, and the patient was transferred to the intensive care unit, and last night, I came in, and place the patient on mechanical ventilator, at which time I intubated her, and also put in a left subclavian triple-lumen catheter. Unfortunately, through the night, the patient continued to worsen, and this morning, her situation is dire, and she is now a DO NOT RESUSCITATE patient. She is on the volume assist control, rate 26, tidal volume 400, FiO2 100%, and PEEP of 8. Blood gases show pO2 of 93, pCO2 of 34, and a pH is 7.17. She is on a sodium bicarbonate drip with 3 ampules in D5W at 100 mL an hour, norepinephrine at 87 mcg/m, vasopressin at 0.04 units per minute and dopamine at 20 mcg/kg/m. White count is 47.7, hemoglobin 8.9, hematocrit 30.7, and platelet count was normal. Sodium 146, potassium 3.4, chlorides 111, CO2 10, anion gap 25, BUN 49, creatinine 3.52. Blood cultures are pending or negative. Chest x- ray shows diffuse bilateral haziness of the lung zimmerman, consistent with either diffuse atypical pneumonia or fluid overload/CHF. The tubes and lines are in good position. Objective - Vital Signs Vital signs: Vital Signs Temp 98.2 F 03/16/23 07:45 Pulse 63 03/16/23 08:00 Resp 12 03/16/23 08:00 BP 85/28 03/16/23 08:00 Pulse Ox 58 L 03/16/23 07:45 FiO2 100 03/16/23 08:00 Intake & Output 03/15/23 03/16/23 03/16/23 18:59 06:59 18:59 Intake Total 5.940 1463.096 393.856 Output Total 385 15 0 Balance -823.445 5844.096 393.856 Weight 87 kg Intake: Intake, IV Titration 5.940 1463.096 393.856 Amount Azithromycin 500 mg In 250 Sodium Chloride 0.9% 250 ml @ 250 mls/hr IVPB DAILY@0600 [facility] Rx#: [id number] DOPamine DRIP 800 mg In 2.719 Dextrose/Water 1 250ml. bag @ 5 MCG/KG/MIN 8.156 mls/hr IV .Q24H [facility] Rx#: [id number] Dextrose 5% in Water 1, 900 200 000 ml @ 100 mls/hr IV . [id number] [facility] with Sodium Bicarb (1 Meq/ml) 150 ml Rx#:[id number] Linezolid 600 mg In 150 Dextrose/Water 1 300ml. bag @ 150 mls/hr IVPB Q12H [facility] Rx#:[id number] Norepinephrine 32 mg In 66.488 120.451 Sodium Chloride 0.9% 218 ml @ 0.03 MCG/KG/MIN 1. 052 mls/hr IV .Q24H [facility] Rx#:[id number] Norepinephrine 4 mg In 5.940 90.488 Sodium Chloride 0.9% 250 ml @ 0.03 MCG/KG/MIN 8. 555 mls/hr IV .Q24H [facility] Rx#:[id number] Vasopressin 60 unit In 6.12 70.686 Sodium Chloride 0.9% 150 ml @ 0.04 UNITS/MIN 6.12 mls/hr IV .Q24H [facility] Rx#: [id number] Tube Feeding 0 Other 0 Output: Urine 385 15 0 Other: Voiding Method Indwelling Catheter Indwelling Catheter Indwelling Catheter ABP, PAP, CO, CI - Last Documented Arterial Blood Pressure 40/22 - Exam No acute distress, unresponsive, sedated, with an orally placed endotracheal tube and NG tube. HEENT examination is grossly unremarkable. Neck supple. Full range of motion. No adenopathy thyromegaly or neck vein distention. Cardiovascular examination reveals regular rhythm rate. S1-S2 normal. No S3 or S4. No discernible murmur noted. Heart sounds are distant. Heart rate 63 bpm. Lungs reveal diffuse scattered crackles and rhonchi. No wheezes. Breath sounds are equal bilaterally. Saturations are quite low, in the mid 80s. Abdomen soft, without bowel sounds. No masses or tenderness. Extremities are intact. No clubbing. There is edema, and acrocyanosis. Skin reveals livedo reticularis. Neurologic examination could not be assessed at this time. - Labs CBC & Chem 7: 03/16/23 04:02 03/16/23 04:02 Labs: Abnormal Lab Results - Last 24 Hours (Table) 03/15/23 03/15/23 03/15/23 Range/Units 16:28 16:33 17:52 WBC 37.0 H (3.8-10.6) k/uL RBC 3.25 L (3.80-5.40) m/uL Hgb 8.6 L (11.4-16.0) gm/dL Hct 29.7 L (34.0-46.0) % MCHC 29.0 L (31.0-37.0) g/dL Neutrophils # (Manual) 34.78 H (1.3-7.7) k/uL Monocytes # (Manual) 1.11 H (0-1.0) k/uL Nucleated RBCs 1 H (0-0) /100 WBC ABG pH 7.21 L (7.35-7.45) ABG pCO2 32 L (35-45) mmHg ABG pO2 66 L (83-108) mmHg ABG HCO3 13 L (21-25) mmol/L ABG Total CO2 14 L (19-24) mmol/L ABG O2 Saturation 89.2 L (94-97) % Sodium (137-145) mmol/L Potassium (3.5-5.1) mmol/L Chloride (98-107) mmol/L Carbon Dioxide (22-30) mmol/L BUN (7-17) mg/dL Creatinine (0.52-1.04) mg/dL Phosphorus (2.5-4.5) mg/dL Procalcitonin 0.40 H (0.02-0.09) ng/mL 03/15/23 03/15/23 03/15/23 Range/Units 18:03 20:51 22:01 WBC (3.8-10.6) k/uL RBC (3.80-5.40) m/uL Hgb (11.4-16.0) gm/dL Hct (34.0-46.0) % MCHC (31.0-37.0) g/dL Neutrophils # (Manual) (1.3-7.7) k/uL Monocytes # (Manual) (0-1.0) k/uL Nucleated RBCs (0-0) /100 WBC ABG pH 7.22 L 7.09 L* (7.35-7.45) ABG pCO2 33 L (35-45) mmHg ABG pO2 81 L 115 H (83-108) mmHg ABG HCO3 14 L 13 L (21-25) mmol/L ABG Total CO2 15 L 14 L (19-24) mmol/L ABG O2 Saturation 93.8 L (94-97) % Sodium (137-145) mmol/L Potassium (3.5-5.1) mmol/L Chloride 113 H (98-107) mmol/L Carbon Dioxide 11 L (22-30) mmol/L BUN 49 H (7-17) mg/dL Creatinine 2.99 H (0.52-1.04) mg/dL Phosphorus 6.4 H (2.5-4.5) mg/dL Procalcitonin (0.02-0.09) ng/mL 03/16/23 03/16/23 03/16/23 Range/Units 00:27 03:58 04:02 WBC 47.7 H (3.8-10.6) k/uL RBC 3.35 L (3.80-5.40) m/uL Hgb 8.9 L (11.4-16.0) gm/dL Hct 30.7 L (34.0-46.0) % MCHC 29.0 L (31.0-37.0) g/dL Neutrophils # (Manual) 44.30 H (1.3-7.7) k/uL Monocytes # (Manual) 1.91 H (0-1.0) k/uL Nucleated RBCs 2 H (0-0) /100 WBC ABG pH 7.05 L* 7.17 L* (7.35-7.45) ABG pCO2 50 H 34 L (35-45) mmHg ABG pO2 129 H (83-108) mmHg ABG HCO3 14 L 12 L (21-25) mmol/L ABG Total CO2 15 L 14 L (19-24) mmol/L ABG O2 Saturation 97.4 H (94-97) % Sodium (137-145) mmol/L Potassium (3.5-5.1) mmol/L Chloride (98-107) mmol/L Carbon Dioxide (22-30) mmol/L BUN (7-17) mg/dL Creatinine (0.52-1.04) mg/dL Phosphorus (2.5-4.5) mg/dL Procalcitonin (0.02-0.09) ng/mL 03/16/23 Range/Units 04:02 WBC (3.8-10.6) k/uL RBC (3.80-5.40) m/uL Hgb (11.4-16.0) gm/dL Hct (34.0-46.0) % MCHC (31.0-37.0) g/dL Neutrophils # (Manual) (1.3-7.7) k/uL Monocytes # (Manual) (0-1.0) k/uL Nucleated RBCs (0-0) /100 WBC ABG pH (7.35-7.45) ABG pCO2 (35-45) mmHg ABG pO2 (83-108) mmHg ABG HCO3 (21-25) mmol/L ABG Total CO2 (19-24) mmol/L ABG O2 Saturation (94-97) % Sodium 146 H (137-145) mmol/L Potassium 3.4 L (3.5-5.1) mmol/L Chloride 111 H (98-107) mmol/L Carbon Dioxide 10 L (22-30) mmol/L BUN 49 H (7-17) mg/dL Creatinine 3.52 H (0.52-1.04) mg/dL Phosphorus (2.5-4.5) mg/dL Procalcitonin (0.02-0.09) ng/mL Microbiology - Last 24 Hours (Table) 03/14/23 19:00 Blood Culture - Preliminary Blood 03/14/23 18:45 Blood Culture - Preliminary Blood Assessment and Plan Assessment: Acute on chronic hypoxic respiratory failure secondary to an acute exacerbation of diastolic congestive heart failure currently requiring BiPAP 10/5 and 50% FiO2, and intubation with mechanical ventilation on 03/15/2023. Recurrent pleural effusions, secondary to CHF, currently on diuretics and last thoracentesis on the right 02/28/2023 with 1.3 L removed. Cytology negative for malignancy. Urinary tract infection, culture pending. COPD with upper lobe predominance maintain on Symbicort on outpatient basis. Recurrent GI bleed, likely secondary to bleeding gastric polyp. EGD was done on 02/28/2023. Plan was for patient colonoscopy on 03/14/2023 but due to the above aforementioned the procedure was canceled The patient is currently off anticoagulants. Gastric polyp. Diverticulosis based on a colonoscopy that was done on 12/27/2022. Coronary artery disease with previous bypass surgery. Paroxysmal A. fib current rhythm is sinus and the patient is admitted on anticoagulants. She has also underlying bundle branch block pattern. Hypertension. Hyperlipidemia. Diabetes mellitus type 2. Right-sided breast cancer with a previous lumpectomy and sentinel lymph node biopsy and the patient is currently on hormonal treatment. recurrent blood loss anemia , likely secondary to GI bleeding. Chronic back pain with previous back surgery currently maintained on Leola and Neurontin. The patient has undergone a surgery for severe lumbar stenosis L2 through S1 and the patient has undergone laminectomy and facetectomy and foraminotomy with fusion at multiple levels. History of her lumbar wound dehiscence with serous drainage back in June 2022. Previous history of spontaneous pneumothorax on the left. History of previous poliomyelitis on the right. C. diff colitis in the past, treated. Mild coagulopathy, INR is 1.4. Plan: Plan dated 03/16/2023. The patient is seen today in room 255. Her 2 sons are in the room with her. They plan on making her a comfort care, later this morning. She is currently a DO NOT RESUSCITATE patient. She's done very poorly overnight. She is maxed out on norepinephrine, and 87 mcg/kg/m, vasopressin, at 0.04 units per minute, and dopamine at 20 mcg/kg/m. In addition, despite sodium bicarbonate pushes, and of sodium bicarbonate drip, the patient's pH is only 7.17. Labs, x-rays, and medications are reviewed. The patient likely will not survive only a few minutes, once extubated. Additional recommendations and suggestions are forthcoming. All of this is explained to the sons. They seem okay with this, and realize, mother would not want to be on mechanical ventilation. Time with Patient: Greater than 30
--- NOTE | 2023-03-16 11:17 | P.DS ---
Providers Date of admission: 03/14/23 18:55 Expected date of discharge: 03/16/23 Attending physician: Agueda Soto DO Consults: 03/14/23 18:55 Consult Physician Routine Consulting Provider: [facility] Consult Reason/Comments: Pulmonary edema Do you want consulting provider notified?: Yes 03/15/23 14:46 Consult Physician Routine Consulting Provider: Shay Avila Consult Reason/Comments: hypoxic respiratory failure, on bipap Do you want consulting provider notified?: Yes 03/15/23 18:38 Consult Physician Urgent Consulting Provider: Efrain Tucker Consult Reason/Comments: CVC line Do you want consulting provider notified?: Already Contacted 03/15/23 20:09 Consult Physician Urgent Consulting Provider: Prudence Shields Consult Reason/Comments: [place] Do you want consulting provider notified?: Yes, Notify in am 03/16/23 05:05 Consult Physician Urgent Consulting Provider: Kayla Izquierdo Consult Reason/Comments: sepsis, hx MDRO Do you want consulting provider notified?: Yes Primary care physician: Teja Lozano MD Hospital Course: Discharge Diagnosis: Acute on chronic hypoxic respiratory failure Acute on chronic diastolic heart failure Community-acquired pneumonia Bilateral pleural effusion Acute encephalopathy Septic shock Metabolic acidosis Acute on chronic kidney disease History of Polio with right-sided deficits Atrial fibrillation COPD not in exacerbation CAD Dyslipidemia Hospital Course: 67-year-old female with history of polio with right-sided deficits, atrial fibrillation, COPD, chronic hypoxic respiratory failure, CAD, hypertension, dyslipidemia, insulin-dependent diabetes, hypothyroidism, GI bleed. She was recently admitted for congestive heart failure with bilateral pleural effusion and underwent right-sided thoracentesis with 1.3 L fluid removal. She was then discharged to rehab facility. She was supposed to undergo colonoscopy yesterday, and was found to be altered and hypoxic. She was then sent to the emergency. On initial presentation, patient was afebrile, pulse 64, respiratory rate 25, blood pressure 107/82, saturating at 85% on 4 L, was transitioned to BiPAP. Patient is now hypotensive still requiring BiPAP. Initial white count was 18.5, hemoglobin 8.9 from baseline, ABG showed pH of 7.29, pO2 of 59, pCO2 34, bicarb 12, creatinine 2.19 about baseline, troponin negative, proBNP 2000, urinalysis negative for leukocyte esterase and nitrites. CT head did not show any acute process. Chest x-ray shows bilateral pleural effusion, worse on the right. EKG shows right bundle branch block. Initially cardiology was consulted, was started on IV Lasix. Due to persistent hypotension, patient unable to tolerate Lasix. ICU was consulted. Now patient being admitted to the medical ICU. Overnight on 03/15/23, patient's respiratory status worsened, was subsequently intubated. She had increasing pressor requirements as well as persistently acidotic. Likely in septic shock versus cardiogenic shock. Family was updated with regards to her critical condition. On the morning of 03/16/23, family decided to make her comfort care measures only. Patient briefly after that at 0950 on 03/16/23. Patient Condition at Discharge: Stable Plan - Discharge Summary Discharge Rx Participant: No New Discharge Prescriptions: No Action DULoxetine HCL [Cymbalta] 60 mg PO DAILY@0800 Atorvastatin [Lipitor] 40 mg PO HS@2100 Budesonide-Formot 160-4.5 Mcg [Symbicort 160-4.5 Mcg Inhaler] 2 puff INHALATION RT-BID@0800,1700 Letrozole [Femara] 2.5 mg PO DAILY@0800 Biotin [Biotin Disolve] 10,000 mcg PO DIRECTED Cholecalciferol [Vitamin D3 (125 Mcg = 5000 Iu)] 125 mcg PO DIRECTED Cyanocobalamin (Vitamin B-12) [Vitamin B-12] 2,000 mcg PO DIRECTED Albuterol Inhaler [Ventolin Hfa Inhaler] 2 puff INHALATION RT-QID PRN PRN Reason: Shortness Of Breath Lactobacillus Acidophilus [Acidophilus Probiotic] 1 cap PO DIRECTED Simethicone Chew [Mylicon Chew] 80 mg PO QID PRN tab PRN Reason: Bloating Magic Butt Paste 1 applic TOPICAL TID@0800,1400,2100 bisacodyL [Dulcolax] 10 mg RECTAL DAILY PRN PRN Reason: Constipation Ferrous Sulfate [Iron (65 MG Elemental)] 325 mg PO DIRECTED Magnesium Hydroxide [Milk of Magnesia Concentrate] 7,200 mg PO DAILY PRN PRN Reason: Constipation Na Phos,M-B/Na Phos,Di-Ba [Fleet Adult] 133 ml RECTAL DAILY PRN PRN Reason: Constipation Ondansetron [Zofran] 4 mg PO Q8HR PRN PRN Reason: Nausea Potassium Chloride [Klor-Con M20] 20 meq PO DIRECTED Gabapentin 600 mg PO TID@0600,1400,2200 #9 tab Montelukast [Singulair] 10 mg PO DAILY@0800 Amiodarone [Cordarone] 200 mg PO BID@0800,1700 Ubidecarenone [Coenzyme Q10] 200 mg PO DIRECTED Acetaminophen Tab [Tylenol] 650 mg PO Q6HR PRN tab PRN Reason: Fever And/ Or Pain Ascorbic Acid [Vitamin C] 250 mg PO DIRECTED Ipratropium-Albuterol Nebulize [Duoneb 0.5 mg-3 mg/3 ml Soln] 3 ml INHALATION RT-Q6H PRN PRN Reason: Shortness Of Breath Loperamide HCl [Imodium A-D] 2 - 4 mg PO QID PRN MDD 4 TABLETS PRN Reason: Diarrhea Loratadine [Claritin] 10 mg PO DAILY PRN PRN Reason: Allergy Symptoms methIMAzole [Tapazole] 5 mg PO DAILY@0800 Metoprolol Tartrate [Lopressor] 25 mg PO BID@0800,1700 Pantoprazole [Protonix] 40 mg PO BID@0800,1700 Furosemide [Lasix] 40 mg PO DAILY@0800 Linezolid [Zyvox] 600 mg PO BID@0800,1700 metroNIDAZOLE [Flagyl] 250 mg PO TID@0600,1400,2200 HYDROcodone/APAP 5-325MG [[place] 5-325] 1 tab PO Q8HR PRN PRN Reason: Pain Discharge Medication List Atorvastatin [Lipitor] 40 mg PO HS@2100 03/23/16 [History] DULoxetine HCL [Cymbalta] 60 mg PO DAILY@0800 03/23/16 [History] Montelukast [Singulair] 10 mg PO DAILY@0800 05/18/21 [History] Budesonide-Formot 160-4.5 Mcg [Symbicort 160-4.5 Mcg Inhaler] 2 puff INHALATION RT-BID@0800,1700 04/06/22 [History] Biotin [Biotin Disolve] 10,000 mcg PO DIRECTED 09/03/22 [History] Letrozole [Femara] 2.5 mg PO DAILY@0800 09/03/22 [History] Cholecalciferol [Vitamin D3 (125 Mcg = 5000 Iu)] 125 mcg PO DIRECTED 09/06/22 [History] Cyanocobalamin (Vitamin B-12) [Vitamin B-12] 2,000 mcg PO DIRECTED 09/06/22 [History] Albuterol Inhaler [Ventolin Hfa Inhaler] 2 puff INHALATION RT-QID PRN 11/10/22 [History] Amiodarone [Cordarone] 200 mg PO BID@0800,1700 11/10/22 [History] Lactobacillus Acidophilus [Acidophilus Probiotic] 1 cap PO DIRECTED 11/29/22 [History] Ubidecarenone [Coenzyme Q10] 200 mg PO DIRECTED 11/29/22 [History] Acetaminophen Tab [Tylenol] 650 mg PO Q6HR PRN tab 12/07/22 [Rx] Simethicone Chew [Mylicon Chew] 80 mg PO QID PRN tab 12/07/22 [Rx] Ascorbic Acid [Vitamin C] 250 mg PO DIRECTED 01/14/23 [History] Ferrous Sulfate [Iron (65 MG Elemental)] 325 mg PO DIRECTED 02/28/23 [History] Ipratropium-Albuterol Nebulize [Duoneb 0.5 mg-3 mg/3 ml Soln] 3 ml INHALATION RT-Q6H PRN 02/28/23 [History] Loperamide HCl [Imodium A-D] 2 - 4 mg PO QID PRN MDD 4 TABLETS 02/28/23 [History] Loratadine [Claritin] 10 mg PO DAILY PRN 02/28/23 [History] Magic Butt Paste 1 applic TOPICAL TID@0800,1400,2100 02/28/23 [History] Magnesium Hydroxide [Milk of Magnesia Concentrate] 7,200 mg PO DAILY PRN 02/28/23 [History] Metoprolol Tartrate [Lopressor] 25 mg PO BID@0800,1700 02/28/23 [History] Na Phos,M-B/Na Phos,Di-Ba [Fleet Adult] 133 ml RECTAL DAILY PRN 02/28/23 [History] Ondansetron [Zofran] 4 mg PO Q8HR PRN 02/28/23 [History] Pantoprazole [Protonix] 40 mg PO BID@0800,1700 02/28/23 [History] Potassium Chloride [Klor-Con M20] 20 meq PO DIRECTED 02/28/23 [History] bisacodyL [Dulcolax] 10 mg RECTAL DAILY PRN 02/28/23 [History] methIMAzole [Tapazole] 5 mg PO DAILY@0800 02/28/23 [History] Gabapentin 600 mg PO TID@0600,1400,2200 #9 tab 03/03/23 [Rx] Furosemide [Lasix] 40 mg PO DAILY@0800 03/14/23 [History] HYDROcodone/APAP 5-325MG [[place] 5-325] 1 tab PO Q8HR PRN 03/14/23 [History] Linezolid [Zyvox] 600 mg PO BID@0800,1700 03/14/23 [History] metroNIDAZOLE [Flagyl] 250 mg PO TID@0600,1400,2200 03/14/23 [History] Follow up Appointment(s)/Referral(s): Teja Lozano MD [Primary Care Provider] - 1-2 days
--- NOTE | 2023-03-16 11:48 | CA ---
Transthoracic Echo Report Name: Shelby Robison Age: 67 Gender: F : 1955 Exam Date: 03/16/2023 09:16 Exam Location: [place] [facility] Ht (in): 62 Wt (lb): 165 Ordering Physician: Shay Avila DO Attending/Referring Phys: Rotary Drier Hero Ramires Procedure CPT: Indications: Heart failure Cardiac Hx: Technical Quality: Fair Contrast 1: Total Dose (mL): Contrast 2: Total Dose (mL): MEASUREMENTS (Male / Female) Normal Values 2D ECHO LV Diastolic Diameter PLAX 5.0 cm 4.2 - 5.9 / 3.9 - 5.3 cm LV Systolic Diameter PLAX 3.4 cm IVS Diastolic Thickness 1.1 cm 0.6 - 1.0 / 0.6 - 0.9 cm LVPW Diastolic Thickness 1.1 cm 0.6 - 1.0 / 0.6 - 0.9 cm LV Relative Wall Thickness 0.4 RV Internal Dim ED PLAX 3.6 cm LV Diastolic Volume MOD BP 91.5 cm??? 67 - 155 / 56 - 104 cm??? LV Systolic Volume MOD BP 43.2 cm??? 22 - 58 / 19 - 49 cm??? LV Ejection Fraction MOD BP 52.8 % >= 55 % LV Cardiac Index MOD BP 1656.9 cm???/min???m??? LV Diastolic Volume MOD 4C 95.8 cm??? LV Systolic Volume MOD 4C 32.3 cm??? LV Ejection Fraction MOD 4C 66.3 % LV Cardiac Index MOD 4C 2177.4 cm???/min???m??? LV Diastolic Length 4C 7.0 cm LV Systolic Length 4C 5.8 cm LV Diastolic Volume MOD 2C 83.7 cm??? LV Systolic Volume MOD 2C 52.9 cm??? LV Ejection Fraction MOD 2C 36.7 % LV Cardiac Index MOD 2C 1053.7 cm???/min???m??? LV Diastolic Length 2C 6.7 cm LV Systolic Length 2C 5.3 cm DOPPLER Mitral E Point Velocity 115.0 cm/s Mitral A Point Velocity 40.0 cm/s Mitral E to A Ratio 2.9 MV Deceleration Time 149.9 ms MV E' Velocity 9.3 cm/s Mitral E to MV E' Ratio 12.3 FINDINGS Left Ventricle Normal LV size and wall thicknes. Left ventricular ejection fraction is estimated at _50-55 %. Right Ventricle Right Atrium Left Atrium Mitral Valve Aortic Valve Tricuspid Valve Pulmonic Valve Pericardium Aorta CONCLUSIONS Limited transthoracic echo LV function appears normal Previewed by: Dr. Piter Broderick MD (Electronically Signed) Final Date: 16 March 2023 11:47
--- NOTE | 2023-03-18 07:15 | CDI ---
Documentation Clarification Form Date: 03/18/2023 07:00:52 AM From: Rozina Smith Admit Date: 03/14/2023 06:55:00 PM Patient Name: Shelby Robison Visit Number: [id number] Discharge Date: 03/16/2023 11:26:00 AM ATTENTION: The Clinical Documentation Specialists (CDI) and [facility] Coding Staff appreciate your assistance in clarifying documentation. Please respond to the clarification below the line at the bottom and electronically sign. The CDI & [facility] Coding staff will review the response and follow-up if needed. Please note: Queries are made part of the Legal Health Record. If you have any questions, please contact the author of this message via ITS. Dr. Addi Peace Septic shock is documented 03/16 in the DCS. For each diagnosis, documentation must be clear to determine if the condition was present at the time of the patients inpatient admission or developed during the hospital stay. Additional clarification regarding the Sepsis/septic shock is requested. History/Risk Factors: Personal history of sepsis with bowel removal, Pneumonia, UTI, on vasopressin Clinical Indicators: WBC's 37.0 BP's 107/82 day of admit, 87/30 03/15 Treatment: Rocephin and vasopressins Definition of Present on Admission (POA): A diagnosis present at the time the order for admission to inpatient status was written. Please clarify if the Sepsis/septic shock was POA [ x ] Y = Yes, the condition was present at the time of the order for inpatient admission. [ ] N = No, the condition was not present at the time of the order for inpatient admission. [ ] W = Clinically undetermined if the condition was present at the time of the order for inpatient admission. MTDD
== END 2023-03-16 11:26 | disposition expired | DRG 871 ==
LOC: EC 15:32 → 3SCARD 18:55 → 2SICU 03-15 15:28
PROVIDERS: ADMIT Internal Medicine; ATTEND Internal Medicine
PROC: 5A09457 Assistance with Respiratory Ventilation, 24-96 Consecutive Hours, Continuous Positive Airway Pressure (ICD-10-PCS; 2023-03-14)
PROC: 5A1935Z Respiratory Ventilation, Less than 24 Consecutive Hours (ICD-10-PCS; principal; 2023-03-15)
PROC: 0BH17EZ Insertion of Endotracheal Airway into Trachea, Via Natural or Artificial Opening (ICD-10-PCS; principal; 2023-03-15)
PROC: 02HV33Z Insertion of Infusion Device into Superior Vena Cava, Percutaneous Approach (ICD-10-PCS; 2023-03-15)
PROC: 3E043XZ Introduction of Vasopressor into Central Vein, Percutaneous Approach (ICD-10-PCS; 2023-03-15)
DX: A41.9 Sepsis, unspecified organism (principal); G93.41 Metabolic encephalopathy; I50.33 Acute on chronic diastolic (congestive) heart failure; J18.9 Pneumonia, unspecified organism; J96.21 Acute and chronic respiratory failure with hypoxia; J96.22 Acute and chronic respiratory failure with hypercapnia; R65.21 Severe sepsis with septic shock; D68.9 Coagulation defect, unspecified; I13.0 Hypertensive heart and chronic kidney disease with heart failure and stage 1 through stage 4 chronic kidney disease, or unspecified chronic kidney disease; E87.20 Acidosis, unspecified; N39.0 Urinary tract infection, site not specified; D50.0 Iron deficiency anemia secondary to blood loss (chronic); C50.911 Malignant neoplasm of unspecified site of right female breast; E11.22 Type 2 diabetes mellitus with diabetic chronic kidney disease; E11.40 Type 2 diabetes mellitus with diabetic neuropathy, unspecified; N18.9 Chronic kidney disease, unspecified; Z99.81 Dependence on supplemental oxygen; F41.9 Anxiety disorder, unspecified; I27.20 Pulmonary hypertension, unspecified; J43.9 Emphysema, unspecified; Z66 Do not resuscitate; Z51.5 Encounter for palliative care; F32.A Depression, unspecified; Z79.4 Long term (current) use of insulin; I48.0 Paroxysmal atrial fibrillation; G14 Postpolio syndrome; G89.29 Other chronic pain; I25.10 Atherosclerotic heart disease of native coronary artery without angina pectoris; E78.5 Hyperlipidemia, unspecified; I45.10 Unspecified right bundle-branch block; Z79.890 Hormone replacement therapy; K31.7 Polyp of stomach and duodenum; M48.061 Spinal stenosis, lumbar region without neurogenic claudication; S30.810A Abrasion of lower back and pelvis, initial encounter; R74.01 Elevation of levels of liver transaminase levels; Z53.9 Procedure and treatment not carried out, unspecified reason; Z95.1 Presence of aortocoronary bypass graft; Z90.49 Acquired absence of other specified parts of digestive tract; Z79.01 Long term (current) use of anticoagulants; Z79.51 Long term (current) use of inhaled steroids; Z79.899 Other long term (current) drug therapy; Z88.5 Allergy status to narcotic agent; Z88.0 Allergy status to penicillin; Z88.2 Allergy status to sulfonamides; Z90.79 Acquired absence of other genital organ(s); Z90.721 Acquired absence of ovaries, unilateral
CPT/HCPCS: 36415; 36600; 70450; 71045; 71046; 76604; 80048; 80053; 81001; 82533; 82803; 82805; 83605; 83735; 83880; 84100; 84145; 84484; 85025; 85610; 85730; 87040; 93005; 93308; 94002; 94003; 94640; 94660; 94760; 96365; 96367; 96375; 96376; 99285

== ENCOUNTER → 2023-03-14 | Day surgery (SDC) | payer OTHER ==
[2023-03-14 14:30] VITALS: BP 136/63; PULSE 64; RESP 18; TEMP 96.5
== END ==
LOC: ORWHC2ENDO 13:52
PROVIDERS: ATTEND Surgery
DX: Z53.8 Procedure and treatment not carried out for other reasons (principal); K92.2 Gastrointestinal hemorrhage, unspecified